=== PATIENT | male | born 1945 | race Caucasian/White ===

== ENCOUNTER → 2017-07-05 15:44 | Outpatient (CLI) | payer MEDICARE, OTHER, SELFPAY ==
[2017-07-05 18:21] LABS: Anion Gap 8 (5-15); BUN 20 mg/dL (7-18); BUN/Creat Ratio 17.2 RATIO (10-20); Calcium,Total 8.9 mg/dL (8.5-10.1); Chloride 106 mmol/L (98-107); Creatinine, Serum 1.16 mg/dL (0.70-1.30); EST Glomerular Filtration Rate 66 mL/min (>60); Est Glom Filt Rate - Afr Amer 80 mL/min (>60); Glucose 93 mg/dL (70-110); Potassium 4.3 mmol/L (3.5-5.1); Sodium Level 138 mmol/L (136-145)
== END ==
PROVIDERS: Family Provider Family Medicine; PCP Family Medicine; Visit Provider Family Medicine
DX: I10 Essential (primary) hypertension (principal)
CPT/HCPCS: 36415; 80048

== ENCOUNTER → 2017-08-02 08:17 | Outpatient (CLI) | payer MEDICARE, OTHER, SELFPAY ==
[2017-08-02 10:42] LABS: PSA,Total- Diagnostic < 0.01 ng/mL (0.0-4.0)
== END ==
PROVIDERS: Family Provider Family Medicine; PCP Family Medicine; Visit Provider Urology
DX: C61 Malignant neoplasm of prostate (principal)
CPT/HCPCS: 36415; 84153

== ENCOUNTER → 2018-02-13 14:40 | Outpatient (CLI) | payer MEDICARE, OTHER, SELFPAY ==
[2018-02-13 16:45] LABS: PSA,Total- Diagnostic < 0.01 ng/mL (0.0-4.0)
== END ==
PROVIDERS: Family Provider Family Medicine; PCP Family Medicine; Visit Provider Urology
DX: C61 Malignant neoplasm of prostate (principal)
CPT/HCPCS: 36415; 84153

== ENCOUNTER → 2018-08-15 07:48 | Outpatient (CLI) | payer MEDICARE, OTHER, SELFPAY ==
[2018-08-15 10:16] LABS: PSA,Total- Diagnostic < 0.01 ng/mL (0.0-4.0)
== END ==
PROVIDERS: Family Provider Family Medicine; PCP Family Medicine; Referring Provider Urology; Visit Provider Urology
DX: C61 Malignant neoplasm of prostate (principal)
CPT/HCPCS: 36415; 84153

== ENCOUNTER → 2018-11-10 07:30 | Outpatient (CLI) | payer MEDICARE, OTHER, SELFPAY ==
--- NOTE | 2018-11-10 07:35 | CT_ITS ---
STUDY: CT ABDOMEN AND PELVIS WITH AND WITHOUT CONTRAST REASON FOR EXAM: Male, 73 years old. Gross hematuria one week ago RADIATION DOSAGE (If Supplied By Facility): CTDIvol = ( 22.36 ) mGy, DLP = ( 2616.06 ) mGycm TECHNIQUE: Transaxial images were obtained from the dome of the diaphragm to the symphysis pubis without oral contrast. 100ml IV Isovue 300 was administered. Sagittal and coronal images were reconstructed. Individualized dose optimization techniques were used for this CT. COMPARISON: None. FINDINGS: The visualized lung bases are unremarkable. The visualized portions of the heart are within normal limits. There is a well-circumscribed 5.9 mm low-attenuation within the left hepatic lobe suggesting a cyst or potentially lipoma. Normal gallbladder and extrahepatic biliary system. Normal spleen. Normal pancreas. Normal bilateral adrenal glands. Normal right kidney. Normal left kidney. There is a hiatal hernia measuring 2.5 x 3.1 cm. Normal small intestine. There is moderate stool in the colon. There is diverticulosis without visualized diverticulitis. The appendix is visualized and appears normal. The aorta is tortuous and partially calcified. Normal inferior vena cava. Normal retroperitoneum. The bladder is decompressed the wall is thickened and mildly strandy in its appearance measuring up to 7.4 mm. The delayed images demonstrate the same on axial view. The bladder appears somewhat low lying. The prostate is not visualized. There is a right-sided fatty inguinal hernia. There is degenerative change of the lumbar spine. There is multilevel broad disc bulge with. There is slight retrolisthesis at L1-L2. There is mild to moderate neural foramina narrowing is significant central stenosis. At L2 L3 L3 L4 L4 L5 there is broad disc bulge facet arthropathy with minimal neural foramina narrowing. At L5-S1 there is bilateral spondylosis with no significant neural foraminal narrowing or central stenosis. There is degenerative change of the SI joints. CT/CT Abd/Pelvis W/WO Contrast IMPRESSION: There is a thick walled appearance of the bladder compatible with cystitis. In addition there is a low-lying appearance of the bladder and absence of the main spin surgically removed. There is no visualized mass within the bladder allowing for the limitations of this study. Right-sided fatty inguinal hernia [id number] constipation diverticulosis no evidence of diverticulitis. No evidence for hydronephrosis. Degenerative change thoracolumbar spine and pars interarticularis defect L5-S1. Electronically Signed: Francisca Scherer MD at 17:21 EDT Tel , Service support ,
[2018-11-10 07:50] LABS: CREATININE FINGERSTICK 1.2 mg/dL (0.70-1.30); EGFR FINGERSTICK > 60.0000 mL/min (>60)
== END ==
PROVIDERS: Family Provider Family Medicine; PCP Family Medicine; Referring Provider Nurse Practitioner Adult Health; Visit Provider Nurse Practitioner Adult Health
DX: Z01.812 Encounter for preprocedural laboratory examination (principal); R31.0 Gross hematuria
CPT/HCPCS: 74178; Q9967

== ENCOUNTER → 2018-12-04 09:17 | Outpatient (CLI) | payer MEDICARE, OTHER, SELFPAY ==
[2018-12-04 10:33] LABS: Anion Gap 4 (5-15); BUN 23 mg/dL (7-18); BUN/Creat Ratio 18.4 RATIO (10-20); Chloride 108 mmol/L (98-107); Cholesterol 159 mg/dL (200); Creatinine, Serum 1.25 mg/dL (0.70-1.30); EST Glomerular Filtration Rate 61 mL/min (>60); Est Glom Filt Rate - Afr Amer 73 mL/min (>60); Glucose 99 mg/dL (74-106); High Density Lipoprotein 43 mg/dL; Potassium 4.4 mmol/L (3.5-5.1); Sodium Level 136 mmol/L (136-145); Triglycerides 108 mg/dL; Very Low Density Lipoprotein 22 mg/dL (5-40)
== END ==
PROVIDERS: Family Provider Family Medicine; PCP Family Medicine; Referring Provider Family Medicine; Visit Provider Family Medicine
DX: I10 Essential (primary) hypertension (principal)
CPT/HCPCS: 36415; 80048; 80061

== ENCOUNTER 2018-12-15 11:17 | Day surgery (SDC) | payer MEDICARE, OTHER, SELFPAY ==
--- NOTE | 2018-12-12 07:57 | EKG12_ITS ---
Test Reason : PREOP Blood Pressure : / mmHG Vent. Rate : 073 BPM Atrial Rate : 073 BPM P-R Int : 192 ms QRS Dur : 088 ms QT Int : 366 ms P-R-T Axes : 059 056 044 degrees QTc Int : 403 ms Normal sinus rhythm Normal ECG Confirmed by KRISTIAN HOOK, SAM ([id number]), slot editor MAN STEPHENS ([id number]) on 12/14/2018 11:57:01 AM Referred By: Zhao Gilliland Confirmed By:SAM TOWNSEND MD
[2018-12-15] VITALS (7 sets, daily range): BP systolic 111–130; BP diastolic 69–85; PULSE 67–85; RESP 14–16; TEMP 36.1–36.7; O2SAT 95–98; BMI 28.9
--- NOTE | 2018-12-15 13:35 | BLA_PTH ---
PATIENT: BARBARA PEÑA LOC: [facility] [place] U#:[id number] AGE/SX: 73/M ROOM: RE12/15/[address]: Dr. Zhao Gilliland MD : 1945 BED: DIS: 12/15/2018 SPEC #: [id number] RECD: 12/15/18 16:07 STATUS: PURVI MAXIMILIANO #: [id number] TARA: 12/15/18 13:[address]: Zhao Gilliland DEPT: SURGICAL PATHOLOGY RECD BY: Mirian Santos ENTERED: 12/18/18 08:50 SP TYPE: BLADDER BX OTHR DR: Dr. sIaiah Han MD Tissues: A - Urinary bladder, NOS B - Urinary bladder, NOS C - Urinary bladder, NOS D - Urinary bladder, NOS Procedures: Surgery Specimen Level IV HEADER OPERATION: Cystoscopy, bladder biopsy, fulguration PRE-OP DIAGNOSIS: Gross hematuria, malignant neoplasm of prostate TISSUE SUBMITTED: A. Cysto bladder biopsy, posterior wall, B. Cysto bladder biopsy, posterior wall, C. Cysto bladder biopsy, posterior wall, D. Cysto bladder biopsy, posterior wall MICROSCOPIC DIAGNOSIS A. Urinary bladder, posterior wall, biopsy: Mild chronic inflammation and reactive histiocytic reaction. No evidence of malignancy. See comment. B. Urinary bladder, posterior wall, biopsy: Mild chronic inflammation and reactive histiocytic reaction. No evidence of malignancy. See comment. C. Urinary bladder, posterior wall, biopsy: No tissue in specimen container. D. Urinary bladder, posterior wall, biopsy: Mild chronic inflammation and reactive histiocytic reaction. No evidence of malignancy. See comment. AM:sapphire 12/19/18 COMMENT A. Detrusor muscle is not represented in the biopsy. B. Detrusor muscle is not represented in the biopsy. D. Detrusor muscle is not represented in the biopsy. Case has been reviewed in consultation with Dr. Shipley who concurs with the above diagnosis. IDC:SJ MICROSCOPIC DESCRIPTION Slides are reviewed. GROSS DESCRIPTION A - Received in fixative is one container labeled with the patient's name and designated cysto bladder biopsy posterior wall. The specimen consists of one irregular fragment of light sam soft tissue that measures 0.1 cm in greatest dimension. The specimen is totally submitted in one cassette. B - Received in fixative is one container labeled with the patient's name and designated cysto bladder biopsy posterior wall. The specimen consists of one irregular fragment of light sam soft tissue that measures 0.1 cm in greatest dimension. The specimen is totally submitted in one cassette. C - Received in fixative is one container labeled with the patient's name and designated cysto bladder biopsy posterior wall. No specimen is recovered. D - Received in fixative is one container labeled with the patient's name and designated cysto bladder biopsy posterior wall. The specimen consists of one irregular fragment of light sam soft tissue that measures 0.2 x 0.1 x 0.1 cm. The specimen is totally submitted in one cassette. / SJ:rg 12/18/18 TC:3 CPT: 78556 x3
[2018-12-15] MEDS: Cefazolin 2 GM in 0.9% Normal Saline 100 ML IV (13:38)
--- NOTE | 2018-12-15 13:44 | DCINST_ITS ---
Discharge Diet: Light diet - advance as tolerated Discharge Activity: Return to Normal Activity Call your doctor if your incision/area has: Sudden Increased Bleeding Call your doctor if you observe: Fever of 101 or Higher Allergies/Adverse Reactions: Allergies Sulfa (Sulfonamide Antibiotics) Allergy (Verified 12/15/18 11:57) Hives Medications to take at Discharge Amlodipine [Norvasc] 10 mg PO DAILY 12/08/18 Lisinopril [Zestril] 40 mg PO BID 12/08/18 Terazosin HCl [Hytrin] 5 mg PO DAILY 12/08/18 Orders to be completed after discharge: 12 Lead EKG [CVS] Facility: [facility], Location: Cardiovascular Services Primary Care Physician: Eduardo Han MD [Primary Care Provider] - Test Results: Test results from this visit will be discussed in further detail at your follow- up appointment, if applicable. Please Follow Up With: Zhao Gilliland MD When: in 2 weeks, please call to make an appointment.
--- NOTE | 2018-12-15 14:06 | PCM.OPRPT ---
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 73-year-old male taken back to the operating room at the smooth induction of general anesthesia he was placed in dorsolithotomy position, the penis and testicles are prepped and draped in usual sterile fashion, he had SCDs on, he had antibiotics on board, timeout was performed, he was then placed in dorsolithotomy position, went into the bladder with a 21 Portuguese rigid cystourethroscope, once inside the bladder identified the lesions in the posterior wall in the left lateral wall the bladder bladder photograph of these were taken and printed we then biopsied the lesion and fulgurated these lesions to me 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 Taken back to PACU good condition follow-up in a few weeks to review the biopsies. Type of Anesthesia:: General Drains: none Estimated Blood Loss (mL): none - Admit VTE Documentation VTE Present on Admission: No VTE Mechan Device Prophylaxis: SCD's
== END 2018-12-15 16:00 | disposition home or self-care (01) ==
LOC: SDC 11:17 → AC 11:18
PROVIDERS: Family Provider Family Medicine; PCP Family Medicine; Referring Provider Urology; Visit Provider Urology
PROC: 0TBB8ZX Excision of Bladder, Via Natural or Artificial Opening Endoscopic, Diagnostic (ICD-10-PCS; CPT 52234; principal; 2018-12-15 13:25)
DX: N30.21 Other chronic cystitis with hematuria (principal); C61 Malignant neoplasm of prostate; I10 Essential (primary) hypertension; Z79.82 Long term (current) use of aspirin; Z79.899 Other long term (current) drug therapy
CPT/HCPCS: 52234; 88305; 93005; J7120; J2405

== ENCOUNTER → 2019-06-29 11:50 | Outpatient (CLI) | payer MEDICARE, OTHER, SELFPAY ==
[2018-12-15 11:59] VITALS: BMI 28.9
[2019-06-29 14:21] LABS: PSA,Total- Diagnostic < 0.01 ng/mL (0.0-4.0)
== END ==
PROVIDERS: PCP Family Medicine; Referring Provider Urology; Visit Provider Urology
DX: C61 Malignant neoplasm of prostate (principal)
CPT/HCPCS: 36415; 84153

== ENCOUNTER → 2019-12-28 10:17 | Outpatient (CLI) | payer MEDICARE, OTHER, SELFPAY ==
[2018-12-15 11:59] VITALS: BMI 28.9
[2019-12-28 12:56] LABS: Anion Gap 4 (5-15); BUN 22 mg/dL (7-18); BUN/Creat Ratio 17.2 RATIO (10-20); Chloride 111 mmol/L (98-107); Cholesterol 164 mg/dL (200); Creatinine, Serum 1.28 mg/dL (0.70-1.30); EST Glomerular Filtration Rate 59 mL/min (>60); Est Glom Filt Rate - Afr Amer 71 mL/min (>60); Glucose 115 mg/dL (74-106); High Density Lipoprotein 45 mg/dL; PSA,Total- Diagnostic < 0.01 ng/mL (0.0-4.0); Potassium 4.4 mmol/L (3.5-5.1); Sodium Level 139 mmol/L (136-145); Triglycerides 75 mg/dL; Very Low Density Lipoprotein 15 mg/dL (5-40)
== END ==
PROVIDERS: PCP Family Medicine; Referring Provider Family Medicine; Visit Provider Family Medicine
DX: I10 Essential (primary) hypertension (principal); C61 Malignant neoplasm of prostate
CPT/HCPCS: 36415; 80048; 80061; 84153

== ENCOUNTER → 2020-06-23 08:13 | Outpatient (CLI) | payer MEDICARE, OTHER, SELFPAY ==
[2018-12-15 11:59] VITALS: BMI 28.9
[2020-06-23 10:05] LABS: Anion Gap 9 (5-15); BUN 22 mg/dL (7-18); BUN/Creat Ratio 15.8 RATIO (10-20); Chloride 106 mmol/L (98-107); Creatinine, Serum 1.39 mg/dL (0.70-1.30); EST Glomerular Filtration Rate 53 mL/min (>60); Est Glom Filt Rate - Afr Amer 65 mL/min (>60); Glucose 110 mg/dL (74-106); PSA,Total- Diagnostic < 0.01 ng/mL (0.0-4.0); Potassium 4.2 mmol/L (3.5-5.1); Sodium Level 139 mmol/L (136-145)
== END ==
PROVIDERS: PCP Family Medicine; Visit Provider Family Medicine
DX: C61 Malignant neoplasm of prostate (principal); I10 Essential (primary) hypertension
CPT/HCPCS: 36415; 80048; 84153

== ENCOUNTER 2020-07-30 14:12 | Outpatient (RCR) | payer MEDICARE, OTHER, SELFPAY ==
[2018-12-15 11:59] VITALS: BMI 28.9
== END 2020-07-30 23:59 ==
LOC: IMMUN 14:12
PROVIDERS: PCP Family Medicine; Referring Provider Family Medicine; Visit Provider Family Medicine
DX: Z23 Encounter for immunization (principal)
CPT/HCPCS: 0011A; 0012A

== ENCOUNTER → 2020-12-22 09:05 | Outpatient (CLI) | payer MEDICARE, OTHER, SELFPAY ==
[2018-12-15 11:59] VITALS: BMI 28.9
[2020-12-22 10:41] LABS: Anion Gap 6 (5-15); BUN 19 mg/dL (7-18); BUN/Creat Ratio 14.1 RATIO (10-20); Chloride 107 mmol/L (98-107); Cholesterol 178 mg/dL (200); Creatinine, Serum 1.35 mg/dL (0.70-1.30); EST Glomerular Filtration Rate 55 mL/min (>60); Est Glom Filt Rate - Afr Amer 67 mL/min (>60); Glucose 109 mg/dL (74-106); High Density Lipoprotein 45 mg/dL; PSA,Total- Diagnostic < 0.01 ng/mL (0.0-4.0); Potassium 4.5 mmol/L (3.5-5.1); Sodium Level 138 mmol/L (136-145); Triglycerides 113 mg/dL; Very Low Density Lipoprotein 23 mg/dL (5-40)
== END ==
PROVIDERS: PCP Family Medicine; Visit Provider Family Medicine
DX: C61 Malignant neoplasm of prostate (principal); I10 Essential (primary) hypertension
CPT/HCPCS: 80048; 80061; 84153

== ENCOUNTER 2021-06-24 14:57 | Outpatient (CLI) | payer MEDICARE, OTHER, SELFPAY ==
[2021-06-24 18:23] LABS: PSA,Total- Diagnostic < 0.01 ng/mL (0.0-4.0)
== END 2021-06-24 23:59 | disposition short-term general hospital (02) ==
LOC: MTLAB 15:00
PROVIDERS: PCP Family Medicine; Referring Provider Urology; Visit Provider Urology
DX: C61 Malignant neoplasm of prostate (principal)
CPT/HCPCS: 36415; 84153

== ENCOUNTER 2021-07-15 09:00 | Outpatient (CLI) | payer MEDICARE, OTHER, SELFPAY ==
[2021-07-15 11:01] LABS: Anion Gap 6 (5-15); BUN 18 mg/dL (7-18); BUN/Creat Ratio 15.3 RATIO (10-20); Chloride 109 mmol/L (98-107); Cholesterol 154 mg/dL (200); Creatinine, Serum 1.18 mg/dL (0.70-1.30); EST Glomerular Filtration Rate 64 mL/min (>60); Est Glom Filt Rate - Afr Amer 78 mL/min (>60); Glucose 98 mg/dL (74-106); High Density Lipoprotein 48 mg/dL; Potassium 4.5 mmol/L (3.5-5.1); Sodium Level 140 mmol/L (136-145); Triglycerides 81 mg/dL; Very Low Density Lipoprotein 16 mg/dL (5-40)
== END 2021-07-15 23:59 | disposition home or self-care (01) ==
LOC: MFPLAB 09:03
PROVIDERS: PCP Family Medicine; Referring Provider Family Medicine; Visit Provider Family Medicine
DX: I10 Essential (primary) hypertension (principal)
CPT/HCPCS: 36415; 80048; 80061

== ENCOUNTER → 2021-12-28 | Outpatient (CLI) | payer MEDICARE, OTHER, SELFPAY ==
[2021-12-28 18:30] LABS: PSA,Total- Diagnostic 0.03 ng/mL (0.0-4.0)
== END | disposition home or self-care (01) ==
PROVIDERS: PCP Family Medicine; Referring Provider Registered Nurse; Visit Provider Registered Nurse
DX: C61 Malignant neoplasm of prostate (principal)
CPT/HCPCS: 36415; 84153

== ENCOUNTER → 2022-07-05 | Outpatient (CLI) | payer MEDICARE, OTHER, SELFPAY ==
[2022-07-05 09:47] LABS: ALB/GLOB Ratio 0.9 RATIO (0.9-2.4); AST(SGOT) 17 U/L (15-37); Alanine Aminotransfer ALT/SGPT 19 U/L (16-61); Albumin, Serum 3.7 g/dL (3.2-5.0); Alkaline Phosphatase 77 U/L (45-117); Anion Gap 8 (5-15); BUN 18 mg/dL (7-18); BUN/Creat Ratio 13.6 RATIO (10-20); Calcium,Total 8.9 mg/dL (8.5-10.1); Chloride 108 mmol/L (98-107); Cholesterol 181 mg/dL (200); Creatinine, Serum 1.32 mg/dL (0.70-1.30); EST Glomerular Filtration Rate 56 mL/min (>60); Est Glom Filt Rate - Afr Amer 68 mL/min (>60); Globulin 3.9 g/dL (2.2-4.2); Glucose 121 mg/dL (74-106); High Density Lipoprotein 51 mg/dL; PSA,Total- Diagnostic < 0.01 ng/mL (0.0-4.0); Potassium 4.2 mmol/L (3.5-5.1); Protein, Total 7.6 g/dL (6.4-8.2); Sodium Level 139 mmol/L (136-145); Triglycerides 101 mg/dL; Uric Acid 8.3 mg/dL (3.5-7.2); Very Low Density Lipoprotein 20 mg/dL (5-40)
== END | disposition home or self-care (01) ==
LOC: LAB 08:23
PROVIDERS: PCP Family Medicine; Referring Provider Urology; Visit Provider Urology
DX: C61 Malignant neoplasm of prostate (principal); I10 Essential (primary) hypertension; E79.0 Hyperuricemia without signs of inflammatory arthritis and tophaceous disease
CPT/HCPCS: 36415; 80053; 80061; 84153; 84550

== ENCOUNTER → 2022-12-03 | Outpatient (CLI) | payer MEDICARE, OTHER, SELFPAY ==
[2022-12-03 17:46] LABS: PSA,Total- Diagnostic < 0.01 ng/mL (0.0-4.0)
== END | disposition home or self-care (01) ==
LOC: MTLAB 14:50
PROVIDERS: PCP Family Medicine; Referring Provider Urology; Visit Provider Urology
DX: C61 Malignant neoplasm of prostate (principal)
CPT/HCPCS: 36415; 84153

== ENCOUNTER → 2023-01-03 | Outpatient (CLI) | payer MEDICARE, OTHER, SELFPAY ==
[2023-01-03 10:29] LABS: Anion Gap 6 (5-15); BUN 21 mg/dL (7-18); BUN/Creat Ratio 16.7 RATIO (10-20); Calcium,Total 8.9 mg/dL (8.5-10.1); Chloride 109 mmol/L (98-107); Cholesterol 177 mg/dL (200); Creatinine, Serum 1.26 mg/dL (0.70-1.30); EST Glomerular Filtration Rate 59 mL/min (>60); Est Glom Filt Rate - Afr Amer 72 mL/min (>60); Glucose 112 mg/dL (74-106); High Density Lipoprotein 49 mg/dL; Potassium 4.1 mmol/L (3.5-5.1); Sodium Level 138 mmol/L (136-145); Triglycerides 100 mg/dL; Very Low Density Lipoprotein 20 mg/dL (5-40)
== END | disposition home or self-care (01) ==
PROVIDERS: PCP Family Medicine; Referring Provider Family Medicine; Visit Provider Family Medicine
DX: Z00.00 Encounter for general adult medical examination without abnormal findings (principal); I10 Essential (primary) hypertension
CPT/HCPCS: 36415; 80048; 80061

== ENCOUNTER 2023-02-02 11:42 | Emergency (ER) | payer MEDICARE, OTHER, SELFPAY ==
[2023-02-02 11:43] VITALS: BP 150/100; PULSE 111; RESP 16; TEMP 36.4; O2SAT 96; BMI 27.8
--- NOTE | 2023-02-02 12:10 | EDS_ITS ---
HPI History of Present Illness Chief Complaint: Complaint Detail of Chief Complaint: Urinary retention Informant: patient Narrative Narrative: Patient presents secondary to urinary retention. He has a history of prostate cancer. He had surgery but then had a recurrence of cancer. He had radiation but left a few burned areas to his bladder. He states Dr. Gilliland did go in and cauterize several lesions. About once a month or so he will have a small amount of blood in his urine and not think much of it. This morning he passed a small amount of blood, but then has been unable to urinate since that time. He is concerned he has a blood clot blocking the urethra. [facility] Medical History (Updated 02/02/23 @ 14:[address] Columba Decker MD) Blood in urine Prostate cancer Home Medications amlodipine 10 mg tablet 10 mg PO DAILY 12/08/18 [History Last Taken 12/15/18 07:00] lisinopril 40 mg tablet 40 mg PO BID 12/08/18 [History Last Taken 12/15/18 07:00] terazosin 5 mg capsule 5 mg PO DAILY 12/08/18 [History Last Taken Unknown] ciprofloxacin HCl 500 mg tablet 500 mg PO BID #6 tabs 12/15/18 [Rx Last Taken Unknown] ibuprofen 600 mg tablet 600 mg PO Q6H PRN PRN Pain #14 tabs 12/15/18 [Rx Last Taken Unknown] phenazopyridine 100 mg tablet 100 mg PO TID PRN PRN burning #14 tabs 12/15/18 [Rx Last Taken Unknown] ciprofloxacin HCl 500 mg tablet (Cipro) 500 mg PO BID #10 tabs 02/02/23 [Rx Last Taken Unknown] Allergy/AdvReac Type Severity Reaction Status Date / Time Sulfa (Sulfonamide Allergy Hives Verified 02/02/23 11:44 Antibiotics) Social History Smoking Status: Never smoker ROS ROS ED Constitutional Constitutional ED: Denies chills or fever(s) Eyes Eyes: Denies change in vision ENT ENT ED: Denies rhinorrhea or sore throat Cardiovascular Cardiovascular: Denies chest pain or palpitations Respiratory/Chest Respiratory/Chest: Denies cough or dyspnea Gastrointestinal Gastrointestinal: Reports abdominal pain; Denies nausea or vomiting Genitourinary Genitourinary ED: Reports difficulty urinating and hematuria Musculoskeletal Musculoskeletal: Denies back pain or extremity pain Integumentary Denies Abrasions or rash Neurologic Neurologic: Denies headache(s) or weakness Psychiatric Psychiatric: Denies anxiety or depression Allergic/Immunologic Allergic/Immunologic ED: Denies lip swelling or urticaria EXAM Physical Exam Const Vital Signs: 02/02/23 11:43 02/02/23 13:01 Temperature 97.5 F L Temperature Source Temporal Pulse Rate 111 H 75 Respiratory Rate 16 18 Blood Pressure 150/100 H 120/76 Blood Pressure Mean 116 90 Pulse Ox 96 95 Oxygen Delivery Method Room Air Room Air Positive well nourished and well developed General Appearance ED: well developed HEENT Reports normocephalic and head/scalp atraumatic Eyes PERRL and EOMs intact bilaterally Neck supple Chest Wall inspection of chest normal and palpation of chest normal Resp normal respiratory effort and clear to auscultation bilaterally Cardio regular rate and regular rhythm GI GI Narrative: Abdomen soft with suprapubic tenderness. Palpation: soft Extremity normal to inspection Neuro oriented x3 and no sensory deficits noted Sensorium / Orientation: alert Motor Exam: strength 5/5 throughout Psych mental status grossly normal Skin no rashes or lesions noted MDM MDM MDM Narrative Medical decision making narrative: Worthy catheter placed. Labwork obtained to evaluate for leukocytosis, anemia, and electrolyte derangement. Urinalysis obtained to evaluate for infection/hematuria. Lab Data Attestation: I reviewed the patient's lab results. Labs: Laboratory Results - last 24 hr 02/02/23 12:20 WBC 6.6 RBC 4.25 L Hgb 13.1 Hct 38.7 L MCV 91.1 MCH 30.8 MCHC 33.9 RDW Std Deviation 41.3 RDW Coeff of Jerry 12.4 Plt Count 228 MPV 10.4 Immature Gran % (Auto) 0.300 Neut % (Auto) 81.7 H Lymph % (Auto) 8.7 L Bandera % (Auto) 7.8 Eos % (Auto) 0.9 Baso % (Auto) 0.6 Absolute Neuts (auto) 5.4 Absolute Lymphs (auto) 0.58 L Nucleated RBC % 0 Differential Comment SCANNED PT 14.5 INR 1.1 APTT 31.4 Sodium 136 Potassium 4.0 Chloride 108 H Carbon Dioxide 20.0 L Anion Gap 8 BUN 20 H Creatinine 1.42 H Estim Creat Clear Calc 46.41 Est GFR (MDRD) Af Amer 63 Est GFR (MDRD) Non-Af 52 L BUN/Creatinine Ratio 14.1 Glucose 120 H Calcium 8.7 Urine Color Yellow Urine Clarity Clear Urine pH 6.5 Ur Specific Kaiser 1.005 Urine Protein 100 H Urine Glucose (UA) Normal Urine Ketones 5 H Urine Occult Blood 250 H Urine Nitrite Positive H Urine Bilirubin Negative Urine Urobilinogen Normal Ur Leukocyte Esterase 100 H Urine RBC 50-100 SEEN Urine WBC 0-5 SEEN Ur Squamous Epith Cells 0 SEEN Urine Bacteria RARE Urine Mucus 0 SEEN Treatment and Re-Evaluation :: Placed by nursing staff. She states she had a hard time getting the three-way catheter in but was able to pass a coud?. Urine is blood-tinged but no clots are noted at this time and is draining well. CBC reveals normal white count at 6.6 with a hemoglobin of 13.1. Coags unremarkable. Chemistry studies reveal a bicarb of 20. BUN is 20 and creatinine is 1.42 which appears similar to his prior values. Urinalysis does reveal infection with positive nitrites. 50-100 RBCs are noted along with 0-5 white cells and rare bacteria. On repeat evaluation patient is still resting comfortably. Urine is draining without difficulty and is light red in color. No clots are noted. Test results are discussed with patient and . Urine has been sent for culture and he will be treated with a course of Cipro. He will be given a leg bag and will continue the Worthy catheter until infection is cleared and he can follow-up to have it safely removed. Return instructions are given. Discharge Plan Triage Chief Complaint: Complaint ED Provider: Columba Decker Dx/Rx/DC Orders Clinical Impression: Urinary retention Instructions: ED Worthy Catheter, Care, ED Urinary Retention, Male, ED Urinary Tract Infections in Men Prescriptions: New ciprofloxacin HCl [Cipro] 500 mg tablet 500 mg PO BID Qty: 10 0RF No Action terazosin 5 MG capsule 5 mg PO DAILY amlodipine 10 MG tablet 10 mg PO DAILY lisinopril 40 MG tablet 40 mg PO BID ciprofloxacin HCl 500 MG tablet 500 mg PO BID Qty: 6 0RF phenazopyridine 100 MG tablet 100 mg PO TID PRN PRN (Reason: burning) Qty: 14 0RF ibuprofen 600 MG tablet 600 mg PO Q6H PRN PRN (Reason: Pain) Qty: 14 0RF Primary Care Provider: Eduardo Han Referrals: Eduardo Han MD [Primary Care Provider] - Zhao Gilliland MD [Med Staff - Active Staff] - 5-7 Days Disposition Disposition: Home, Self Care
[2023-02-02 12:24] LABS: Mucous, Urine 0 SEEN /hpf (<or=2+); Squamous Epithelial Cells - UA 0 SEEN /hpf (0-5)
[2023-02-02 12:33] LABS: Absolute Lymphocyte Count 0.58 X10^3/uL (0.83-4.51); Absolute Neutrophil Count 5.4 X10^3/uL (2.0-7.7); Basophil# 0.04 X10^3/uL; Basophil% 0.6 % (0-1); Eosinophil# 0.06 X10^3/uL; Eosinophils% 0.9 % (0-5); Hematocrit 38.7 % (40-54); Hemoglobin 13.1 g/dL (13.0-16.5); Lymphocyte # 0.58 X10^3/ul (0.83-4.51); Lymphocyte % 8.7 % (19-41); Mean Corp Hgb Conc 33.9 g/dL (32-36); Mean Corpuscular Hgb 30.8 pg (27.0-32.0); Mean Corpuscular Volume 91.1 fL (80-94); Mean Platelet Vol. 10.4 fl (6.2-12.0); Monocyte# 0.52 X10^3/uL; Monocyte% 7.8 % (0-10); NRBC Flagged by Analyzer 0 % (0-5); Neutrophil # 5.42 X10^3/uL (2.7-7.7); Neutrophil % 81.7 % (47-70); POSITIVE DIFFERENTIAL YES; Platelet Count 228 K/mm3 (150-450); RBC Distribution Width CV 12.4 % (11.6-14.6); RBC Distribution Width SD 41.3 fl (35.1-43.9); Red Blood Count 4.25 M/mm3 (4.6-6.2); White Blood Count 6.6 K/mm3 (4.4-11.0)
[2023-02-02 12:37] LABS: International Normalized Ratio 1.1; Prothrombin Time (Protime)PT. 14.5 SECONDS (11.7-14.9)
[2023-02-02 12:38] LABS: Partial Thromboplast Time 31.4 Seconds (24.1-36.2)
[2023-02-02 12:41] LABS: Anion Gap 8 (5-15); BUN 20 mg/dL (7-18); BUN/Creat Ratio 14.1 RATIO (10-20); Calcium,Total 8.7 mg/dL (8.5-10.1); Chloride 108 mmol/L (98-107); Creatinine, Serum 1.42 mg/dL (0.70-1.30); EST Glomerular Filtration Rate 52 mL/min (>60); Est Glom Filt Rate - Afr Amer 63 mL/min (>60); Estimated Creatinine Clearance 46.41 ml/min; Glucose 120 mg/dL (74-106); Sodium Level 136 mmol/L (136-145)
[2023-02-02 12:50] LABS: Color, Urine Yellow (Yellow); Glucose, Dipstick Normal (Normal); Ketone-Dipstick 5 mg/dl (Negative); Leukocyte Esterase-Dipstick 100 /ul (Negative); Nitrite-Dipstick Positive (Negative); Occult Blood-Urine 250 /ul (Negative); Protein-Dipstick 100 mg/dl (Negative); Specific Gravity, Urine 1.005 (1.002-1.030); Urine Bilirubin Dipstick Negative (Negative); Urine Clarity Clear (Clear); Urine Urobilinogen Normal (Normal); Urine pH 6.5 (5.0 - 8.0)
[2023-02-02 12:55] LABS: Differential Indicated SCAN CRITERIA MET
[2023-02-02 13:01] VITALS: BP 120/76; PULSE 75; RESP 18; O2SAT 95
[2023-02-02 13:01] LABS: Bacteria RARE /hpf (None Seen); Red Blood Cells-Urine 50-100 SEEN /hpf (0-5); White Blood Cells 0-5 SEEN /hpf (0-5)
[2023-02-02 13:25] LABS: Differential Comment SCANNED
[2023-02-02] MEDS: Ciprofloxacin 500 MG Tablet PO (14:21)
== END 2023-02-02 14:36 | disposition home or self-care (01) ==
PROVIDERS: Emergency Provider Emergency Medicine; PCP Family Medicine; Visit Provider Emergency Medicine
DX: R33.9 Retention of urine, unspecified (principal); Z85.46 Personal history of malignant neoplasm of prostate
CPT/HCPCS: 51702; 80048; 81001; 85025; 85610; 85730; 87077; 87086; 87088; 87186; 99285; A4216

== ENCOUNTER 2023-02-07 11:04 | Emergency (ER) | payer MEDICARE, OTHER, SELFPAY ==
[2023-02-07 11:05] VITALS: BP 156/93; PULSE 126; RESP 14; TEMP 36.3; O2SAT 98; BMI 27.9
--- NOTE | 2023-02-07 11:40 | ED.RN ---
RN MANUALLY IRRIGATING ELDER CATHETER. FEW CLOTS HAVE PASSED, UNABLE TO PASS CLOT THAT KEEPS OCCLUDING 16FR ELDER CATHETER THAT PATIENT ARRIVED WITH. THIS RN ATTEMPTED TO PLACE [address] IN [place]TIC[place] FOR CBI, UNABLE TO PLACE. 18FR COUDE PLACED AT THIS TIME WITH MULTIPLE CLOTS BEING PASSED. RN CONTINUES TO MANUALLY IRRIGATE ELDER. URINE BECOMING MORE CLEAR AND DRAINING. DR PRYOR NOTIFIED.
[2023-02-07 11:41] LABS: Absolute Lymphocyte Count 0.65 X10^3/uL (0.83-4.51); Absolute Neutrophil Count 7.3 X10^3/uL (2.0-7.7); Basophil# 0.04 X10^3/uL; Basophil% 0.4 % (0-1); Eosinophil# 0.21 X10^3/uL; Eosinophils% 2.3 % (0-5); Hematocrit 37.8 % (40-54); Hemoglobin 12.8 g/dL (13.0-16.5); Lymphocyte # 0.65 X10^3/ul (0.83-4.51); Lymphocyte % 7.2 % (19-41); Mean Corp Hgb Conc 33.9 g/dL (32-36); Mean Corpuscular Hgb 30.5 pg (27.0-32.0); Mean Corpuscular Volume 90.2 fL (80-94); Mean Platelet Vol. 10.6 fl (6.2-12.0); Monocyte# 0.81 X10^3/uL; Monocyte% 8.9 % (0-10); NRBC Flagged by Analyzer 0 % (0-5); Neutrophil # 7.32 X10^3/uL (2.7-7.7); Neutrophil % 80.6 % (47-70); Platelet Count 241 K/mm3 (150-450); RBC Distribution Width CV 12.3 % (11.6-14.6); RBC Distribution Width SD 40.5 fl (35.1-43.9); Red Blood Count 4.19 M/mm3 (4.6-6.2); White Blood Count 9.1 K/mm3 (4.4-11.0)
--- NOTE | 2023-02-07 11:45 | EX.ED.GUMALE ---
HPI History of Present Illness Chief Complaint: Worthy C/O Narrative Narrative: 77-year-old male presenting with hematuria and urinary retention. Patient states he was recently seen and started on antibiotics for UTI and urinary retention. He had the Worthy in for a few days. He reports that the blood clot started last night and clotted off sometime overnight. He has not been able to urinate. He is not on any blood thinners. Recently he did have biopsies performed by Dr. Gilliland. [facility] Medical History Blood in urine Prostate cancer Home Medications amlodipine 10 mg tablet 10 mg PO DAILY 12/08/18 [History Last Taken 12/15/18 07:00] lisinopril 40 mg tablet 40 mg PO BID 12/08/18 [History Last Taken 12/15/18 07:00] terazosin 5 mg capsule 5 mg PO DAILY 12/08/18 [History Last Taken Unknown] ciprofloxacin HCl 500 mg tablet 500 mg PO BID #6 tabs 12/15/18 [Rx Last Taken Unknown] ibuprofen 600 mg tablet 600 mg PO Q6H PRN PRN Pain #14 tabs 12/15/18 [Rx Last Taken Unknown] phenazopyridine 100 mg tablet 100 mg PO TID PRN PRN burning #14 tabs 12/15/18 [Rx Last Taken Unknown] ciprofloxacin HCl 500 mg tablet (Cipro) 500 mg PO BID #10 tabs 02/02/23 [Rx Last Taken Unknown] Allergy/AdvReac Type Severity Reaction Status Date / Time Sulfa (Sulfonamide Allergy Hives Verified 02/07/23 11:06 Antibiotics) Social History Smoking Status: Never smoker ROS ROS ED Constitutional Constitutional ED: Denies chills, fever(s) or sweats Eyes Eyes: Denies blurry vision or change in vision ENT ENT ED: Denies ear pain or sore throat Cardiovascular Cardiovascular: Denies chest pain, palpitations or racing heartbeat Respiratory/Chest Respiratory/Chest: Denies cough, dyspnea or sputum Gastrointestinal Gastrointestinal: Denies abdominal pain, constipation, diarrhea, nausea or vomiting Genitourinary Genitourinary ED: Reports hematuria; Denies dysuria or urinary frequency Musculoskeletal Musculoskeletal: Denies arthralgias, myalgias or neck pain Integumentary Denies abscess, Abrasions or rash Neurologic Neurologic: Denies headache(s), paresthesias or weakness Psychiatric Psychiatric: Denies anxiety, depression, suicidal ideation or suicidal thoughts Endocrine Endocrinology: Denies polydipsia or polyuria EXAM Physical Exam Const Vital Signs: 02/07/23 11:05 Temperature 97.3 F L Temperature Source Temporal Pulse Rate 126 H Respiratory Rate 14 Blood Pressure 156/93 H Blood Pressure Mean 114 Pulse Ox 98 Oxygen Delivery Method Room Air Positive well nourished General Appearance ED: NAD; Negative for pallor HEENT Reports moist mucous membranes normocephalic Eyes PERRL General Eye ED: Negative for pale conjunctiva Resp normal respiratory effort Cardio regular rhythm Rate: tachycardic GI GI Narrative: Suprapubic fullness no CVA tenderness Narrative: Worthy catheter in place. There is some blood in the Worthy catheter bag. Extremity normal to inspection Neuro oriented x3 and CN's II-XII intact bilaterally Sensorium / Orientation: alert Psych mental status grossly normal Skin General Skin Exam: Negative for jaundice or pallor MDM MDM MDM Narrative Medical decision making narrative: Patient presenting with clotting off of his Worthy catheter. He is not on any blood thinners. He does have some mild suprapubic pressure. Patient is on antibiotics for UTI currently. He had recent biopsies by urology which may be causing the bleeding. We initially tried to irrigate the Worthy catheter and did get some clots out but it clotted off again. At this point we will put in a three-way Worthy catheter to irrigate him. CBC and BMP will be obtained. CBC shows normal white count 9.1. Hemoglobin is stable at 12.8. Platelets are normal. Creatinine is just above baseline at 1.59. Patient was given a liter normal saline. He had difficulty irrigating his bladder by hand and there was some occlusions with clots. Three-way Worthy was attempted but would not fit. When nursing staff came back he was again draining so he was irrigated and he has been irrigating pink urine. It is not reoccluded. He has been irrigated several times and is still remains pink. At this point I feel the patient could be safely discharged home. I did speak with Dr. Gilliland who states that he is on his way out of town to [facility]. He states that he cannot keep him in the hospital because he is not going to be here. The patient has a follow-up appointment on Tuesday. He is to see the urology office. At this point the patient states that he wants to try to be transferred to [facility] and I will make this call however, I was told earlier today that they do not have any beds. After speaking with the transfer line and urology (Dr. Grewal) patient was accepted ER to ER to see urology. Impression: 1. Hematuria 2. Occluded Worthy catheter Lab Data Attestation: I reviewed the patient's lab results. Labs: Laboratory Results - last 24 hr 02/07/23 11:30 WBC 9.1 RBC 4.19 L Hgb 12.8 L Hct 37.8 L MCV 90.2 MCH 30.5 MCHC 33.9 RDW Std Deviation 40.5 RDW Coeff of Jerry 12.3 Plt Count 241 MPV 10.6 Immature Gran % (Auto) 0.600 Neut % (Auto) 80.6 H Lymph % (Auto) 7.2 L Sawyer % (Auto) 8.9 Eos % (Auto) 2.3 Baso % (Auto) 0.4 Absolute Neuts (auto) 7.3 Absolute Lymphs (auto) 0.65 L Nucleated RBC % 0 Sodium 137 Potassium 3.9 Chloride 110 H Carbon Dioxide 19.0 L Anion Gap 8 BUN 23 H Creatinine 1.59 H Estim Creat Clear Calc 41.45 Est GFR (MDRD) Af Amer 55 L Est GFR (MDRD) Non-Af 45 L BUN/Creatinine Ratio 14.5 Glucose 113 H Calcium 9.0 Discharge Plan Triage Chief Complaint: Worthy C/O ED Provider: Neo Alcaraz Dx/Rx/DC Orders Clinical Impression: Urinary retention Prescriptions: No Action terazosin 5 MG capsule 5 mg PO DAILY amlodipine 10 MG tablet 10 mg PO DAILY lisinopril 40 MG tablet 40 mg PO BID ciprofloxacin HCl 500 MG tablet 500 mg PO BID Qty: 6 0RF phenazopyridine 100 MG tablet 100 mg PO TID PRN PRN (Reason: burning) Qty: 14 0RF ibuprofen 600 MG tablet 600 mg PO Q6H PRN PRN (Reason: Pain) Qty: 14 0RF ciprofloxacin HCl [Cipro] 500 mg tablet 500 mg PO BID Qty: 10 0RF Primary Care Provider: Eduardo Han Referrals: Eduardo Han MD [Primary Care Provider] - Disposition Disposition: Home, Self Care
[2023-02-07 11:54] LABS: Anion Gap 8 (5-15); BUN 23 mg/dL (7-18); BUN/Creat Ratio 14.5 RATIO (10-20); Chloride 110 mmol/L (98-107); Creatinine, Serum 1.59 mg/dL (0.70-1.30); EST Glomerular Filtration Rate 45 mL/min (>60); Est Glom Filt Rate - Afr Amer 55 mL/min (>60); Estimated Creatinine Clearance 41.45 ml/min; Glucose 113 mg/dL (74-106); Potassium 3.9 mmol/L (3.5-5.1); Sodium Level 137 mmol/L (136-145)
--- NOTE | 2023-02-07 14:50 | ED.RN ---
RN BACK TO BEDSIDE TO CHECK ELDER- STILL PATENT, URINE HAS CHANGED TO DARKER RED, WITHOUT CLOTS. RN IRRIGATED MORE WITH A COUPLE CLOTS REMOVED. HOOKED BACK UP TO ELDER BAG AND STILL DRAINING WELL. 500ML REMOVED AT THIS TIME.
[2023-02-07] MEDS: 0.9% Normal Saline 1,000 ML 999 ML IV (15:25)
== END 2023-02-07 17:10 | disposition home or self-care (01) ==
PROVIDERS: Emergency Provider Student in an Organized Health Care Education/Training Program; PCP Family Medicine; Visit Provider Student in an Organized Health Care Education/Training Program
DX: T83.098A Other mechanical complication of other urinary catheter, initial encounter (principal); X58.XXXA Exposure to other specified factors, initial encounter
CPT/HCPCS: 80048; 85025; 96360; 99284

== ENCOUNTER 2023-02-14 09:47 | Inpatient (IN) | payer MEDICARE, OTHER, SELFPAY ==
[2023-02-14] VITALS (10 sets, daily range): BP systolic 112–174; BP diastolic 56–91; PULSE 70–88; RESP 16–18; TEMP 35.9–37.3; O2SAT 93–99; BMI 29.7; BMI 29.8
--- NOTE | 2023-02-14 10:37 | EDS_ITS ---
HPI History of Present Illness Chief Complaint: Complaint Informant: patient Onset/Context/Timing Onset: Today Context: Gradual Onset Timing: Continuous Quality: Pressure Location: Suprapubic Worsened by: Nothing Relieved by: Bladder irrigation Narrative Narrative: Patient presents with urinary retention and hematuria that became worse today. Patient states he has been having difficulties with his catheter over the past 2 weeks. Patient states he has had multiple catheter exchanges. Patient states today he noted some blood and clots in his Worthy bag. Patient denies any dysuria. Patient admits to some pressure over his bladder area. Patient denies any fevers or chills. Patient denies any nausea or vomiting. Patient denies any back pain. [facility] Medical History Blood in urine Prostate cancer Home Medications amlodipine 10 mg tablet 10 mg PO DAILY 12/08/18 [History Last Taken 12/15/18 07:00] lisinopril 40 mg tablet 40 mg PO BID 12/08/18 [History Last Taken 12/15/18 07:00] terazosin 5 mg capsule 5 mg PO DAILY 12/08/18 [History Last Taken Unknown] ibuprofen 600 mg tablet 600 mg PO Q6H PRN PRN Pain #14 tabs 12/15/18 [Rx Last Taken Unknown] Allergy/AdvReac Type Severity Reaction Status Date / Time Sulfa (Sulfonamide Allergy Hives Verified 02/07/23 11:06 Antibiotics) Social History Smoking Status: Never smoker [facility] ED Constitutional Constitutional ED: Denies chills or fever(s) Eyes Eyes: Denies blurry vision or change in vision ENT ENT ED: Denies rhinorrhea or sore throat Cardiovascular Cardiovascular: Denies chest pain or palpitations Respiratory/Chest Respiratory/Chest: Denies cough or dyspnea Gastrointestinal Gastrointestinal: Denies nausea or vomiting Genitourinary Genitourinary ED: Reports hematuria; Denies dysuria Musculoskeletal Musculoskeletal: Denies back pain or neck pain Integumentary Denies abscess or rash Neurologic Neurologic: Denies headache(s) or weakness Allergic/Immunologic Allergic/Immunologic ED: Denies mouth swelling or urticaria EXAM Physical Exam Const Vital Signs: 02/14/23 09:47 09/11/23 13:19 Temperature 96.7 F L Temperature Source Temporal Pulse Rate 88 83 Respiratory Rate 18 16 Blood Pressure 174/91 H 142/74 H Blood Pressure Mean 118 96 Pulse Ox 97 99 Oxygen Delivery Method Room Air Room Air Positive well nourished and well developed General Appearance ED: well developed and NAD HEENT Reports moist mucous membranes Neck supple and no JVD Resp normal respiratory effort and clear to auscultation bilaterally Cardio regular rate and regular rhythm GI non-distended Palpation: soft and tender suprapubic (Mild); Negative for guarding or rebound tenderness present Extremity normal to inspection General Extremety ED: Negative for edema or tenderness General Extremity: Negative for edema Neuro oriented x3, CN's II-XII intact bilaterally and no sensory deficits noted Sensorium / Orientation: alert Motor Exam: strength 5/5 throughout Psych mental status grossly normal MDM MDM MDM Narrative Medical decision making narrative: Differential diagnosis includes hematuria and urinary tract infection. Urinalysis will be obtained to assess for urinary tract infection. Lab Data Attestation: I reviewed the patient's lab results. Lab results narrative: CBC was reviewed. Hemoglobin was 10.3 and hematocrit was 31.0. White blood cell count was normal. Platelets were normal. Basic metabolic profile was reviewed. BUN was 24 and creatinine was 1.6. These are consistent with prior results. Urinalysis was reviewed. There is red cloudy urine. Occult blood was 250 with greater than 100 red blood cells. There is no evidence of urinary tract infection. Labs: Laboratory Results - last 24 hr 02/14/23 02/14/23 11:25 13:40 WBC 7.4 RBC 3.35 L Hgb 10.3 L Hct 31.0 L MCV 92.5 MCH 30.7 MCHC 33.2 RDW Std Deviation 42.8 RDW Coeff of Jerry 12.6 Plt Count 332 MPV 10.2 Immature Gran % (Auto) 0.800 Neut % (Auto) 83.6 H Lymph % (Auto) 6.8 L [place] % (Auto) 7.1 Eos % (Auto) 1.4 Baso % (Auto) 0.3 Absolute Neuts (auto) 6.2 Absolute Lymphs (auto) 0.50 L Nucleated RBC % 0 Sodium 139 Potassium 4.2 Chloride 107 Carbon Dioxide 22.0 Anion Gap 10 BUN 24 H Creatinine 1.60 H Estim Creat Clear Calc 41.19 Est GFR (MDRD) Af Amer 54 L Est GFR (MDRD) Non-Af 45 L BUN/Creatinine Ratio 15.0 Glucose 125 H Calcium 8.6 Urine Color Red Urine Clarity Cloudy Urine pH 8.0 Ur Specific [place] 1.010 Urine Protein 500 H Urine Glucose (UA) Normal Urine Ketones 5 H Urine Occult Blood 250 H Urine Nitrite Negative Urine Bilirubin Negative Urine Urobilinogen Normal Ur Leukocyte Esterase Negative Urine RBC > 100 SEEN Urine WBC 0 SEEN Ur Squamous Epith Cells 0 SEEN Urine Bacteria 0 SEEN Urine Mucus 0 SEEN Radiography Diagnostic Testing: Because of the persistent pain, CT scan of the abdomen and pelvis was obtained. Treatment and Re-Evaluation :: The patient's Worthy catheter was irrigated. Several clots were retrieved. Patient is still complaining of pressure pain in the bladder area. Patient was given a dose of morphine. Patient states this does not help. Because of the persistent pain, CBC and basic metabolic profile will be obtained to relieve to assess for leukocytosis, anemia, electrolyte abnormality, and renal function. CT scan of the abdomen pelvis will also be obtained to assess for bladder mass, ureteral calculus, and pyelonephritis. Case was discussed with Dr. Gilliland. He will take the patient to the operating room for cystoscopy. Patient and spouse understand and are agreeable with the plan. All questions were answered. Discharge Plan Triage Chief Complaint: Complaint ED Provider: Damian Melvin Dx/Rx/DC Orders Clinical Impression: Hematuria, Abdominal pain Prescriptions: No Action terazosin 5 MG capsule 5 mg PO DAILY amlodipine 10 MG tablet 10 mg PO DAILY lisinopril 40 MG tablet 40 mg PO BID ibuprofen 600 MG tablet 600 mg PO Q6H PRN PRN (Reason: Pain) Qty: 14 0RF Primary Care Provider: Eduardo Han Referrals: Eduardo Han MD [Primary Care Provider] - Disposition Disposition: Acute Care [facility]
[2023-02-14 11:32] LABS: Bacteria 0 SEEN /hpf (None Seen); Mucous, Urine 0 SEEN /hpf (<or=2+); Squamous Epithelial Cells - UA 0 SEEN /hpf (0-5); White Blood Cells 0 SEEN /hpf (0-5)
[2023-02-14 11:41] LABS: Color, Urine Red (Yellow); Glucose, Dipstick Normal (Normal); Ketone-Dipstick 5 mg/dl (Negative); Leukocyte Esterase-Dipstick Negative /ul (Negative); Nitrite-Dipstick Negative (Negative); Occult Blood-Urine 250 /ul (Negative); Protein-Dipstick 500 mg/dl (Negative); Urine Bilirubin Dipstick Negative (Negative); Urine Clarity Cloudy (Clear); Urine Urobilinogen Normal (Normal)
[2023-02-14 11:58] LABS: Red Blood Cells-Urine > 100 SEEN /hpf (0-5)
[2023-02-14] MEDS: Morphine 4 MG/ML Syringe IM (12:29)
--- NOTE | 2023-02-14 12:34 | ED.RN ---
FOELY IRRIGATED BY BUFFY,RN- BUFFY ABLE TO REMOVE SOME CLOTS AND ALL IRRIGATED FLUID. BLADDER SCANNED FOR 177ML. DR BERRY UPDATED. AWARE MORPHINE IM ADMIN. THIS NURSE ASKING IF THERE'S ANOTHER MED SUCH ATIVAN OR SOMETHING THAT COULD HELP WITH BLADDER SPASMS B&O SUPPOSITORIES ARE NOT AVAILABLE. DR BERRY ADVISES TO LET MORPHINE HAVE TIME TO WORK AND WILL REEVALUATE.
--- NOTE | 2023-02-14 13:27 | CT_ITS ---
STUDY: CT ABDOMEN AND PELVIS WITHOUT CONTRAST REASON FOR EXAM: Male, 77 years old. Both clot in the Worthy. History of prostate cancer and prior prostatectomy. RADIATION DOSAGE (If Supplied By Facility): CTDIvol = ( 13.48 ) mGy, DLP = ( 714.99 ) mGycm TECHNIQUE: Transaxial images were obtained from the dome of the diaphragm to the symphysis pubis without oral contrast, and without intravenous contrast. Sagittal and coronal images were reconstructed. Individualized dose optimization techniques were used for this CT. COMPARISON: Comparison is made with prior study dated November 10, 2018. FINDINGS: Mild increased markings at the lung bases with very minimal pleural effusion suggestive of bibasilar atelectasis. The visualized portions of the heart are within normal limits. Stable 5.9 mm low-attenuation nodule within the left hepatic lobe suggestive of a small cyst or possibly a small lipoma. Normal gallbladder and extrahepatic biliary system. Normal spleen. Normal pancreas. Normal bilateral adrenal glands. Nonspecific bilateral perinephric stranding. There is a 1 cm hyperdense nodule in the upper pole of the right kidney most likely representing a hyperdense cyst. Mild bilateral hydronephrosis. There is a small hiatal hernia. Normal small intestine. There are colonic diverticula consistent with diverticulosis. The appendix is visualized and appears normal. There is diffuse atherosclerotic calcification of the abdominal aorta, without a demonstrated aneurysm. Normal inferior vena cava. Normal retroperitoneum. A Worthy catheter is seen within the urinary bladder. There is a 7.4 cm x 6.7 cm polypoid mass in the urinary bladder. A neoplastic process should be ruled out. The patient is status post prostatectomy. There is a right-sided inguinal hernia containing adipose tissue. There are degenerative changes of the visualized lumbar spine. CT/Abdomen/Pelvis without Cont IMPRESSION: Large polyp reported mass in the bladder as described. Diagnosed blastic process should be ruled out. Mild degree of bilateral hydronephrosis and perinephric stranding. Findings suggestive of a hyperdense cyst in the upper pole of the right kidney. Small bilateral pleural effusions with bibasilar atelectasis. Electronically Signed: Samy Natarajan MD at 14:21 EDT ,
[2023-02-14] MEDS: HYDROmorphone 1 MG/ML Syringe 0.5 MG IV (13:39)
[2023-02-14 13:53] LABS: Absolute Neutrophil Count 6.2 X10^3/uL (2.0-7.7); Basophil# 0.02 X10^3/uL; Basophil% 0.3 % (0-1); Eosinophils% 1.4 % (0-5); Hemoglobin 10.3 g/dL (13.0-16.5); Lymphocyte % 6.8 % (19-41); Mean Corp Hgb Conc 33.2 g/dL (32-36); Mean Corpuscular Hgb 30.7 pg (27.0-32.0); Mean Corpuscular Volume 92.5 fL (80-94); Mean Platelet Vol. 10.2 fl (6.2-12.0); Monocyte# 0.52 X10^3/uL; Monocyte% 7.1 % (0-10); NRBC Flagged by Analyzer 0 % (0-5); Neutrophil # 6.17 X10^3/uL (2.7-7.7); Neutrophil % 83.6 % (47-70); POSITIVE DIFFERENTIAL YES; Platelet Count 332 K/mm3 (150-450); RBC Distribution Width CV 12.6 % (11.6-14.6); RBC Distribution Width SD 42.8 fl (35.1-43.9); Red Blood Count 3.35 M/mm3 (4.6-6.2); White Blood Count 7.4 K/mm3 (4.4-11.0)
[2023-02-14 13:57] LABS: Differential Indicated SCAN CRITERIA MET
[2023-02-14 14:05] LABS: Anion Gap 10 (5-15); BUN 24 mg/dL (7-18); Calcium,Total 8.6 mg/dL (8.5-10.1); Chloride 107 mmol/L (98-107); EST Glomerular Filtration Rate 45 mL/min (>60); Est Glom Filt Rate - Afr Amer 54 mL/min (>60); Estimated Creatinine Clearance 41.19 ml/min; Glucose 125 mg/dL (74-106); Potassium 4.2 mmol/L (3.5-5.1); Sodium Level 139 mmol/L (136-145)
--- NOTE | 2023-02-14 14:34 | NURSING ---
SURGERY, [address] HEMATURIA, ABD PAIN
[2023-02-14 14:59] LABS: Differential Comment SCANNED
[2023-02-14] MEDS: Lactated Ringers 1,000 ML 15 ML IV (15:17)
--- NOTE | 2023-02-14 16:33 | HP.PCM_ITS ---
HPI - General General Date of Admission: 02/14/23 Date of Service: 02/14/23 Chief Complaint: Gross hematuria HPI Narrative BARBARA PEÑA, is a 77 M who presents to the emergency room with gross hematuria had a cystoscopy clot evacuation done at [facility] last week presents back to the emergency room with more bleeding and a taken back to surgery today hopefully find the bleeding and stop it with cauterization and three-way irrigat ion [facility] Medical History Blood in urine Prostate cancer Home Medications amlodipine 10 mg tablet 10 mg PO DAILY 12/08/18 [History Last Taken 02/14/23] lisinopril 40 mg tablet 40 mg PO BID 12/08/18 [History Last Taken 02/14/23] terazosin 5 mg capsule 5 mg PO DAILY 12/08/18 [History Last Taken Unknown] ibuprofen 600 mg tablet 600 mg PO Q6H PRN PRN Pain #14 tabs 12/15/18 [Rx Last Taken Unknown] Allergy/AdvReac Type Severity Reaction Status Date / Time losartan Allergy Mild Rash Verified 02/14/23 15:16 Sulfa (Sulfonamide Allergy Hives Verified 02/07/23 11:06 Antibiotics) atenolol AdvReac Mild WEAKNESS Verified 02/14/23 15:16 hydrochlorothiazide AdvReac Mild UNKNOWN Verified 02/14/23 15:16 indomethacin [From Indocin] AdvReac Mild GI upset Verified 02/14/23 15:16 Social History Smoking Status: Never smoker Vital Signs Vital Signs Vital Signs: 02/14/23 09:47 02/14/23 13:19 02/14/23 14:38 Temperature 96.7 F L 98.0 F Temperature Source Temporal Oral Pulse Rate 88 83 70 Respiratory Rate 18 16 18 Blood Pressure 174/91 H 142/74 H 144/68 H Blood Pressure Mean 118 96 93 Pulse Ox 97 99 Oxygen Delivery Method Room Air Room Air Room Air Weight Weight: 94.4 kg Body Mass Index (BMI) 29.8 Results Lab / Micro Data 02/14/23 13:40 02/14/23 13:40 Labs: Laboratory Results - last 24 hr 02/14/23 11:25: Urine Color Red, Urine Clarity Cloudy, Urine pH 8.0, Ur Specific [place] 1.010, Urine Protein 500 H, Urine Glucose (UA) Normal, Urine Ketones 5 H , Urine Occult Blood 250 H, Urine Nitrite Negative, Urine Bilirubin Negative, Urine Urobilinogen Normal, Ur Leukocyte Esterase Negative, Urine RBC > 100 SEEN, Urine WBC 0 SEEN, Ur Squamous Epith Cells 0 SEEN, Urine Bacteria 0 SEEN, Urine Mucus 0 SEEN 02/14/23 13:40: WBC 7.4, RBC 3.35 L, Hgb 10.3 L, Hct 31.0 L, MCV 92.5, MCH 30.7, MCHC 33.2, RDW Std Deviation 42.8, RDW Coeff of Jerry 12.6, Plt Count 332, MPV 10.2, Immature Gran % (Auto) 0.800, Neut % (Auto) 83.6 H, Lymph % (Auto) 6.8 L, [place] % (Auto) 7.1, Eos % (Auto) 1.4, Baso % (Auto) 0.3, Absolute Neuts (auto) 6.2, Absolute Lymphs (auto) 0.50 L, Nucleated RBC % 0, Differential Comment SCANNED, Sodium 139, Potassium 4.2, Chloride 107, Carbon Dioxide 22.0, Anion Gap 10, BUN 24 H, Creatinine 1.60 H, Estim Creat Clear Calc 41.19, Est GFR (MDRD) Af Amer 54 L, Est GFR (MDRD) Non-Af 45 L, BUN/Creatinine Ratio 15.0, Glucose 125 H, Calcium 8.6 Radiology Impression Abdomen/Pelvis CT 02/14/23 13:27 IMPRESSION: Large polyp reported mass in the bladder as described. Diagnosed blastic process should be ruled out. Mild degree of bilateral hydronephrosis and perinephric stranding. Findings suggestive of a hyperdense cyst in the upper pole of the right kidney. Small bilateral pleural effusions with bibasilar atelectasis. Electronically Signed: Samy Natarajan MD at 14:21 EDT ,
[2023-02-14] MEDS: Cefazolin 2 GM in 0.9% Normal Saline (100mL Bag) 100 ML IV (17:01)
--- NOTE | 2023-02-14 17:51 | OP.PCM_ITS ---
Report of Operation Date of Procedure: 02/14/23 Pre-Operative Diagnosis: Gross hematuria Post-Operative Diagnosis: The same radiation cystitis Surgery/Procedure Performed:: Cystoscopy clot evacuation cauterization of bleeding from the bladder neck and posterior bladder Description of Surgical Findings:: This is a patient has a history of prostate cancer and underwent a radical prostatectomy in the past had postop radiation therapy. Presented to the hospital here with bleeding taken back to the operating room remove the current catheter went into the bladder with a 21 [place]ian rigid cystourethroscope this was done after the penis and testicles were prepped and draped in usual sterile fashion I evacuated extensive amount of clots within the bladder I then found an area in the back of the bladder at that was raw that was cauterized as a bleeding source and then does also some other areas of bleeding sources from the bladder neck anterior that was cauterized with the Bugbee electrode after doing this and we placed a 22 [place]ian catheter into the bladder with continuous irrigation the urine is fairly clear and we will continue with irrigation until the urine stays clear and the bleeding stops. Patient acetic was reversed taken back to PACU in good condition spoke to the family afterwards. Surgeon: Zhao Gilliland Type of Anesthesia: General Drains: none Estimated Blood Loss (mL): 500 Admit VTE Documentation VTE Present on Admission: No VTE Mechan Device Prophylaxis: SCD's VTE Pharm Prophylaxis ordered?: No
[2023-02-14] MEDS: 0.9% Normal Saline (1000mL) 1,000 ML 125 ML IV (18:03)
[2023-02-14] MEDS: Cefazolin 1 GM/50 ML BAG IV (22:30)
[2023-02-14] MEDS: Docusate Sodium 100 MG Capsule 200 MG PO (22:31)
[2023-02-14] MEDS: Lisinopril 40 MG Tablet PO (22:31)
[2023-02-14] MEDS: Doxazosin 4 MG Tablet PO (22:31)
[2023-02-15] MEDS: 0.9% Normal Saline (1000mL) 1,000 ML 125 ML IV ×3 (01:55→18:47)
[2023-02-15] MEDS: Cefazolin 1 GM/50 ML BAG IV ×3 (05:17→21:00)
[2023-02-15 05:27] VITALS: BP 122/71; PULSE 82; RESP 16; TEMP 37.1; O2SAT 95
[2023-02-15 06:46] LABS: Hematocrit 25.7 % (40-54); Hemoglobin 8.2 g/dL (13.0-16.5); Mean Corp Hgb Conc 31.9 g/dL (32-36); Mean Corpuscular Volume 94.1 fL (80-94); Mean Platelet Vol. 10.5 fl (6.2-12.0); Platelet Count 308 K/mm3 (150-450); RBC Distribution Width CV 12.9 % (11.6-14.6); RBC Distribution Width SD 44.2 fl (35.1-43.9); Red Blood Count 2.73 M/mm3 (4.6-6.2); White Blood Count 8.4 K/mm3 (4.4-11.0)
[2023-02-15] MEDS: Docusate Sodium 100 MG Capsule 200 MG PO ×2 (08:31→21:00)
[2023-02-15] MEDS: amLODIPine 10 MG Tablet PO (08:32)
[2023-02-15] MEDS: Lisinopril 40 MG Tablet PO ×2 (08:32→21:00)
[2023-02-15 08:43] VITALS: BP 120/69; PULSE 83; RESP 16; TEMP 36.3; O2SAT 96
--- NOTE | 2023-02-15 10:41 | CASEMGMT ---
LA GIRON Assessment: Face to Face with pt for initial transition planning/care coordination assessment. LA GIRON introduced self and role at [facility], pt voices understanding and consents to assessment. Pt is A/O x4 and answers all questions appropriately at this time. Pt sitting up in chair in no distress with at bedside. Care providers, pharmacy, and demographics verified/updated. Admitting Dx: hematuria and pain PCP:Guille Specialists:Darshana, uro Preferred Pharmacy: [facility] Insurance: CHIKIS, [employer] Sr Supp Prescription Benefit: yes LNOK: Susi Milan, Living Arrangements: Pt lives with in a single story home with 3 steps to enter with a rail. Pt reports he is I in ADL's but has declined functionally since being hospitalized in [place]. Pt denies concerns at home. Transportation: Pt drives self and denies concerns with transportation. Pt also able to transport pt. DME/HHC/SNF: Pt has a w/c, cane, FWW, high rise toilet and walk in shower. Pt states he just started using the FWW d/t pain in his feet post hospitalization. Pt denies hx of HHC or SNF stays. Pt states that he was set up with a [facility]CE[facility] after hospitalization but his just called as they did not want an out of town agency. states that they recommended [facility]. Pt would like them for services and denies need for a list of any other options of agencies. Discussed having SN, PT and OT, pt and agreeable to this. They also requested therapy to work with pt while hospitalized. Order placed. Pt has had a catheter in the past and feels comfortable with this should he be dc'd with one. Pt states no concerns with going home at time of dc. Pt states no further concerns/needs. CM to follow. Advised pt to ask CM if any further question/concerns/needs arise, voices understanding. Pt Goal: Home with HHC Plan: Home with HHC DANIELLA [facility] at [facility], referral made, will await decision to accept.
--- NOTE | 2023-02-15 12:04 | PN.URO_ITS ---
Subjective Subjective Status post cystoscopy clot evacuation cauterization of bleeding, fortunately today the urine is crystal clear with no blood whatsoever. We can stop the irrigation today I can put him on some gabapentin per family's request for some leg pain and swelling. We will stop CBI and watch the urine for now but fortunately has stopped bleeding. Objective Data Objective Data Vital Signs: Vital Signs Temp Pulse Resp BP Pulse Ox O2 Del Method 97.3 F L 83 16 120/69 96 Room Air 02/15/23 08:43 02/15/23 08:43 02/15/23 08:43 02/15/23 08:43 02/15/23 08:43 02/15/23 08:43 Oxygen Delivery Method Room Air Weight: 94.4 kg Body Mass Index (BMI) 29.8 Intake & Output: Intake and Output for Last 24 Hours 02/13/23 02/14/23 02/15/23 23:59 23:59 23:59 Intake Total 1160.0 / 1160.0 2033.33 / 2033.33 Output Total 2600 / 2600 5125 / 5125 Balance -1440.0 / -1440.0 -3091.67 / -3091.67 Lab / Micro Data 02/15/23 05:45 02/14/23 13:40 Labs: Laboratory Results - last 24 hr 02/14/23 13:40: WBC 7.4, RBC 3.35 L, Hgb 10.3 L, Hct 31.0 L, MCV 92.5, MCH 30.7, MCHC 33.2, RDW Std Deviation 42.8, RDW Coeff of Jerry 12.6, Plt Count 332, MPV 10.2, Immature Gran % (Auto) 0.800, Neut % (Auto) 83.6 H, Lymph % (Auto) 6.8 L, [place] % (Auto) 7.1, Eos % (Auto) 1.4, Baso % (Auto) 0.3, Absolute Neuts (auto) 6.2, Absolute Lymphs (auto) 0.50 L, Nucleated RBC % 0, Differential Comment SCANNED, Sodium 139, Potassium 4.2, Chloride 107, Carbon Dioxide 22.0, Anion Gap 10, BUN 24 H, Creatinine 1.60 H, Estim Creat Clear Calc 41.19, Est GFR (MDRD) Af Amer 54 L, Est GFR (MDRD) Non-Af 45 L, BUN/Creatinine Ratio 15.0, Glucose 125 H, Calcium 8.6 02/15/23 05:45: WBC 8.4, RBC 2.73 L, Hgb 8.2 L, Hct 25.7 L, MCV 94.1 H, MCH 30.0, MCHC 31.9 L, RDW Std Deviation 44.2 H, RDW Coeff of Jerry 12.9, Plt Count 308, MPV 10.5 Radiography Diagnostic Testing: Radiology Impression Abdomen/Pelvis CT 02/14/23 13:27 IMPRESSION: Large polyp reported mass in the bladder as described. Diagnosed blastic process should be ruled out. Mild degree of bilateral hydronephrosis and perinephric stranding. Findings suggestive of a hyperdense cyst in the upper pole of the right kidney. Small bilateral pleural effusions with bibasilar atelectasis. Electronically Signed: Samy Natarajan MD at 14:21 EDT , Physical Exam Const alert and oriented x3 General Appearance: cooperative HEENT normocephalic, head/scalp atraumatic, EAC's normal and TM's normal bilaterally Eyes PERRL and EOMs intact bilaterally Pupil: sluggish Neck no lymphadenopathy, supple and no JVD General: trachea midline Lymph Lymphatic: no lymphadenopathy noted, lymphedema and lymphadenopathy Resp normal respiratory effort, normal air movement and clear to auscultation bilaterally Cardio regular rate, regular rhythm and peripheral pulses 2+ throughout GI soft to palpation, non-tender and non-distended Extremity normal capillary refill and no clubbing, cyanosis or edema General Extremity: no tenderness to palpation of joints or extremities Skin no rashes or lesions noted General Skin Exam: turgor normal Lesions: no lesions Rashes: no rashes Neuro CN's II-XII intact bilaterally Speech: speech normal Motor Exam: strength 5/5 throughout; Negative for general weakness Psych thought process normal, cooperative and affect normal Appearance: appropriate Assessment & Plan Assessment/Plan (1) Hematuria: PLAN: Plan to continue with observation we will stop CBI.
[2023-02-15] MEDS: Gabapentin 100 MG Capsule PO (16:33)
[2023-02-15] MEDS: Doxazosin 4 MG Tablet PO (21:00)
[2023-02-15 21:19] VITALS: BP 118/68; PULSE 82; RESP 18; TEMP 37; O2SAT 95
[2023-02-16 05:00] VITALS: BP 120/77; PULSE 80; RESP 16; TEMP 37.1; O2SAT 95
[2023-02-16] MEDS: Cefazolin 1 GM/50 ML BAG IV ×3 (05:13→22:47)
[2023-02-16] MEDS: 0.9% Normal Saline (1000mL) 1,000 ML 125 ML IV ×3 (05:13→22:47)
[2023-02-16 06:35] LABS: Hemoglobin 8.1 g/dL (13.0-16.5); Mean Corp Hgb Conc 32.4 g/dL (32-36); Mean Corpuscular Hgb 30.7 pg (27.0-32.0); Mean Corpuscular Volume 94.7 fL (80-94); Mean Platelet Vol. 10.2 fl (6.2-12.0); Platelet Count 321 K/mm3 (150-450); RBC Distribution Width CV 12.9 % (11.6-14.6); RBC Distribution Width SD 44.6 fl (35.1-43.9); Red Blood Count 2.64 M/mm3 (4.6-6.2); White Blood Count 8.7 K/mm3 (4.4-11.0)
[2023-02-16 07:35] VITALS: O2SAT 95
[2023-02-16 08:02] VITALS: BP 130/78; PULSE 80; RESP 18; TEMP 36.7; O2SAT 95
[2023-02-16] MEDS: Gabapentin 100 MG Capsule PO ×3 (08:22→17:27)
[2023-02-16] MEDS: Lisinopril 40 MG Tablet PO ×2 (09:21→20:59)
[2023-02-16] MEDS: Docusate Sodium 100 MG Capsule 200 MG PO ×2 (09:21→20:59)
[2023-02-16] MEDS: amLODIPine 10 MG Tablet PO (09:21)
--- NOTE | 2023-02-16 09:30 | CASEMGMT ---
Addendum entered by Génesis Degroot 02/16/23 16:04: Updated Dori at [facility] that pt will not dc today and plan for a voiding trial will be attempted tomorrow. Original Note: LA GIRON notified that pt did not want [facility] services by Dori at [facility]. LA GIRON into pt room, pt states he was not homebound as he can get in the car and go to the doctor. Discussed homebound status with pt and . They verbalize understanding. Pt is homebound currently. Pt agreeable to [facility] for SN, PT and OT if pt goes home with catheter. Pt does not want SN if he does not go home with the catheter. Dori aware.
[2023-02-16 13:41] VITALS: BP 112/66; PULSE 84; RESP 18; TEMP 36.9; O2SAT 97
--- NOTE | 2023-02-16 15:06 | PCM.PN.GU ---
Subjective Subjective Status post resection and cauterization of bladder for bleeding urine now is finally clear he is off irrigation. Will probably plan to remove the catheter tomorrow for voiding trial. Still not sure if he will have to go home with a catheter of choice possible we discussed that with the patient today. Objective Data Objective Data Vital Signs: Vital Signs Temp Pulse Resp BP Pulse Ox O2 Del Method 98.5 F 84 18 112/66 97 Room Air 02/16/23 13:41 02/16/23 13:41 02/16/23 13:41 02/16/23 13:41 02/16/23 13:41 02/16/23 13:41 Oxygen Delivery Method Room Air Weight: 94.4 kg Body Mass Index (BMI) 29.8 Intake & Output: Intake and Output for Last 24 Hours 02/14/23 02/15/23 02/16/23 23:59 23:59 23:59 Intake Total 1160.0 / 1160.0 3133.33 / 3133.33 2450 / 2450 Output Total 2600 / 2600 9325 / 9325 1650 / 1650 Balance -1440.0 / -1440.0 -6191.67 / -6191.67 800 / 800 Lab / Micro Data 02/16/23 06:05 02/14/23 13:40 Labs: Laboratory Results - last 24 hr 02/16/23 06:05: WBC 8.7, RBC 2.64 L, Hgb 8.1 L, Hct 25.0 L, MCV 94.7 H, MCH 30.7, MCHC 32.4, RDW Std Deviation 44.6 H, RDW Coeff of Jerry 12.9, Plt Count 321, MPV 10.2 Assessment & Plan Assessment/Plan (1) Hematuria: (2) Prostate cancer:
[2023-02-16 19:41] VITALS: BP 121/76; PULSE 76; RESP 16; TEMP 36.7; O2SAT 96
[2023-02-16 20:00] VITALS: PULSE 76; O2SAT 96
[2023-02-16] MEDS: Doxazosin 4 MG Tablet PO (21:00)
[2023-02-17 02:00] VITALS: BP 129/71; PULSE 80; RESP 16; TEMP 37; O2SAT 96
[2023-02-17 07:05] LABS: Hematocrit 24.6 % (40-54); Hemoglobin 8.2 g/dL (13.0-16.5); Mean Corp Hgb Conc 33.3 g/dL (32-36); Mean Corpuscular Hgb 30.9 pg (27.0-32.0); Mean Corpuscular Volume 92.8 fL (80-94); Platelet Count 330 K/mm3 (150-450); RBC Distribution Width CV 12.6 % (11.6-14.6); RBC Distribution Width SD 42.8 fl (35.1-43.9); Red Blood Count 2.65 M/mm3 (4.6-6.2); White Blood Count 8.7 K/mm3 (4.4-11.0)
[2023-02-17] MEDS: 0.9% Normal Saline (1000mL) 1,000 ML 125 ML IV (07:07)
[2023-02-17] MEDS: Cefazolin 1 GM/50 ML BAG IV (07:08)
--- NOTE | 2023-02-17 07:24 | PCM.DC.SUM ---
Providers Date of Admission: 02/14/23 Primary Care Physician: Dr. Eduardo Han MD Reason For Visit: HEMATURIA AND PAIN Diagnosis Discharge Diagnosis (1) Hematuria: Status: Acute Code(s): R31.9 - Hematuria, unspecified Plan: Plan to continue with observation we will stop CBI. (2) Prostate cancer: Status: Acute Code(s): C61 - Malignant neoplasm of prostate Medications at Discharge Home Medications amlodipine 10 mg tablet 10 mg PO DAILY 12/08/18 lisinopril 40 mg tablet 40 mg PO BID 12/08/18 terazosin 5 mg capsule 5 mg PO DAILY 12/08/18 ibuprofen 600 mg tablet 600 mg PO Q6H PRN PRN Pain #14 tabs 12/15/18 Hospital Course Summary of Care Provided Minutes Spent on Discharge: 35 Hospital Course: 77-year-old male with a history of prostate cancer who had his radical prostatectomy at the [facility] about 10 years ago after that he had biochemical recurrence so he had salvage radiation therapy. Last week he presented to [facility] with severe pain and bleeding but I was out of town so the patient was t transferred up to [place] and then from [place] he told he was transferred to [facility] and with surgery there and had a cystoscopy clot evacuation according to the patient not have any wrote notes but then he presented to the ER here at [facility] and they called me so the patient was admitted I took him to surgery and found to have bleeding from and a small laceration tear in the back of the bladder this was cauterized and also some bleeding at the bladder neck and this was also cauterized since then he was on continuous bladder irrigation we then stopped irrigation the last day and a half has been clear with no blood in the urine been draining well nice and clear. Patient states that the urine was never clear when he was at the other hospital. Today we removed his Worthy catheter this morning and if he is able to urinate he can go home without a catheter if he is not able to urinate want to send him home with a 18 [place] catheter and he can follow-up in my office in a few weeks for checkup. Physical Exam Const alert and oriented x3 General Appearance: cooperative HEENT normocephalic, head/scalp atraumatic, EAC's normal and TM's normal bilaterally Eyes PERRL and EOMs intact bilaterally Pupil: sluggish Neck no lymphadenopathy, supple and no JVD General: trachea midline Lymph Lymphatic: no lymphadenopathy noted, lymphedema and lymphadenopathy Resp normal respiratory effort, normal air movement and clear to auscultation bilaterally Cardio regular rate, regular rhythm and peripheral pulses 2+ throughout GI soft to palpation, non-tender and non-distended Extremity normal capillary refill and no clubbing, cyanosis or edema General Extremity: no tenderness to palpation of joints or extremities Skin no rashes or lesions noted General Skin Exam: turgor normal Lesions: no lesions Rashes: no rashes Neuro CN's II-XII intact bilaterally Speech: speech normal Motor Exam: strength 5/5 throughout; Negative for general weakness Psych thought process normal, cooperative and affect normal Appearance: appropriate Medical Records Data Attestation: I reviewed the patient's medical records Weight / BMI Weight Weight: 94.4 kg Body Mass Index (BMI) 29.8 ABG / Lab / Microbiology Data 02/17/23 06:30 02/14/23 13:40 Laboratory: Laboratory Results - last 24 hr 02/17/23 06:30: WBC 8.7, RBC 2.65 L, Hgb 8.2 L, Hct 24.6 L, MCV 92.8, MCH 30.9, MCHC 33.3, RDW Std Deviation 42.8, RDW Coeff of Jerry 12.6, Plt Count 330, MPV 10.0 D/C Instructions Discharge Diet: No restrictions Discharge Activity: Return to Normal Activity and May Not Shower May resume sexual activity in: 6-8 weeks Additional Activity Instructions: No heavy lifting and no strenuous activity, do not take any blood thinners no aspirin Call your doctor if your incision/area has: Continuous Slow Oozing Call your doctor if you observe: Fever of 101 or Higher Please Follow Up With: Zhao Gilliland MD When: Discharge home after he is able to urinate follow-up in my office in a few weeks Meaningful Use Info Meaningful Use Diagnoses (Choose all that apply): None applicable Discharge Plan Admission Admit Date/Time: 02/14/23 17:39 Primary Reason for Your Visit: bleeding. Attending Provider: Zhao Gilliland Primary Care Provider: Eduardo Han Discharge Orders/Prescriptions Prescriptions: No Action terazosin 5 MG capsule 5 mg PO DAILY amlodipine 10 MG tablet 10 mg PO DAILY lisinopril 40 MG tablet 40 mg PO BID ibuprofen 600 MG tablet 600 mg PO Q6H PRN PRN (Reason: Pain) Qty: 14 0RF Referrals / Follow Up: Eduardo Han MD [Primary Care Provider] - Zhao Gilliland MD [Med Staff - Active Staff] -
[2023-02-17] MEDS: amLODIPine 10 MG Tablet PO (07:44)
[2023-02-17] MEDS: Gabapentin 100 MG Capsule PO ×2 (07:44→11:39)
[2023-02-17] MEDS: Docusate Sodium 100 MG Capsule 200 MG PO (07:44)
[2023-02-17] MEDS: Lisinopril 40 MG Tablet PO (07:44)
[2023-02-17 08:00] VITALS: BP 135/79; PULSE 82; RESP 18; TEMP 36.6; O2SAT 97
--- NOTE | 2023-02-17 13:32 | CASEMGMT ---
LA CM NOTE: Discharge order is in. Per Kriss TOVAR, voiding trial attempted w/out success and F/C was re-inserted. Pt will discharge home w/ F/C today. Call placed to Dori @ [facility] and she was made aware and that SN will be needed w/C. German RENTERIAN RN CM
[2023-02-17 15:00] VITALS: BP 129/73; PULSE 99; RESP 18; TEMP 37.1; O2SAT 97
== END 2023-02-17 15:21 | disposition home or self-care (01) | DRG 663 ==
LOC: ED 14:15 → MS3 14:43
PROVIDERS: Admitting Provider Urology; Emergency Provider Emergency Medicine; PCP Family Medicine; Visit Provider Urology
PROC: 0W3R8ZZ Control Bleeding in Genitourinary Tract, Via Natural or Artificial Opening Endoscopic (ICD-10-PCS; CPT 52214; principal; 2023-02-14 15:50)
DX: R31.0 Gross hematuria (principal); S37.23XA Laceration of bladder, initial encounter; N30.40 Irradiation cystitis without hematuria; Y84.2 Radiological procedure and radiotherapy as the cause of abnormal reaction of the patient, or of later complication, without mention of misadventure at the time of the procedure; M79.89 Other specified soft tissue disorders; M79.606 Pain in leg, unspecified; R33.9 Retention of urine, unspecified; R10.9 Unspecified abdominal pain; Z79.899 Other long term (current) drug therapy; Z85.46 Personal history of malignant neoplasm of prostate; Z92.3 Personal history of irradiation; Z90.79 Acquired absence of other genital organ(s)
CPT/HCPCS: 36415; 74176; 80048; 81001; 85025; 85027; 97162; 97166; 97530; 97535; 99282; J7030; J7120; A4216

== ENCOUNTER 2023-02-19 21:50 | Inpatient (IN) | payer MEDICARE, OTHER, SELFPAY ==
[2023-02-19 21:51] VITALS: BP 129/69; PULSE 93; RESP 16; TEMP 36.6; O2SAT 97; BMI 30.8
--- NOTE | 2023-02-19 23:00 | ED.RN ---
This RN irrigated patient's perdomo per DO request. Multiple attempts made to irrigate with approx. 600 cc of NS. Multiple blood clots returned, but continued to meet resistance. Some relief noted by patient. Continued to attempt to irrigate, unable to get return. Dr Macias at bedside and observed, to contact urology.
--- NOTE | 2023-02-19 23:08 | EDS_ITS ---
HPI History of Present Illness Chief Complaint: Worthy C/O Narrative Narrative: Patient is a 77-year-old male with longstanding history of hematuria associated with prior prostate cancer radiation presenting with recurrence Worthy catheter malfunction. Patient has been going through worsening hematuria which is been blocking up his Worthy catheter for the past 3 weeks. He is actually been admitted to our hospital and also at [facility]. He has had 2 different cystoscopies as well. He had no drainage of his Worthy catheter around noon today however he had home health come in and they switched out his Worthy catheter at that time. He was fine until around 5 PM when he noticed it was not draining again. He did try to flush it at home with no relief. He continues to have hematuria. He came into the ER for further evaluation. He states he has a mild sense of needing to urinate but is not severe at this point. Denies any other systemic symptoms. Otherwise feeling well. No other complaints or concerns at this time. Is not on any blood thinners. PFSH [facility] Medical History Blood in urine Prostate cancer Home Medications amlodipine 10 mg tablet 10 mg PO DAILY 12/08/18 [History Last Taken 02/14/23] lisinopril 40 mg tablet 40 mg PO BID 12/08/18 [History Last Taken 02/14/23] terazosin 5 mg capsule 5 mg PO DAILY 12/08/18 [History Last Taken Unknown] ibuprofen 600 mg tablet 600 mg PO Q6H PRN PRN Pain #14 tabs 12/15/18 [Rx Last Taken Unknown] gabapentin 100 mg capsule 100 mg PO Q8H 02/19/23 [History Last Taken Unknown] Allergy/AdvReac Type Severity Reaction Status Date / Time losartan Allergy Mild Rash Verified 02/19/23 21:51 Sulfa (Sulfonamide Allergy Hives Verified 02/19/23 21:51 Antibiotics) atenolol AdvReac Mild WEAKNESS Verified 02/19/23 21:51 hydrochlorothiazide AdvReac Mild UNKNOWN Verified 02/19/23 21:51 indomethacin [From Indocin] AdvReac Mild GI upset Verified 02/19/23 21:51 Social History Smoking Status: Never smoker ROS ROS ED Constitutional Constitutional ED: Denies chills or fever(s) Respiratory/Chest Respiratory/Chest: Denies cough Gastrointestinal Gastrointestinal: Reports abdominal pain; Denies nausea or vomiting Genitourinary Genitourinary ED: Reports hematuria and other Details: Worthy catheter malfunction Musculoskeletal Musculoskeletal: Reports other Details: Leg swelling ; Denies arthralgias or myalgias Integumentary Denies rash Neurologic Neurologic: Denies headache(s) Psychiatric Psychiatric: Denies anxiety Hematologic/Lymphatic Hematologic/Lymphatic: Reports easy bleeding EXAM Physical Exam Const Vital Signs: 02/19/23 21:51 Temperature 97.8 F Temperature Source Temporal Pulse Rate 93 Respiratory Rate 16 Blood Pressure 129/69 H Blood Pressure Mean 89 Pulse Ox 97 Positive well nourished and well developed General Appearance ED: well developed and NAD; Negative for pallor HEENT Reports moist mucous membranes Eyes PERRL Neck supple Resp normal respiratory effort and clear to auscultation bilaterally Cardio regular rate, regular rhythm and no murmurs GI GI Narrative: Mild suprapubic tenderness to palpation. Questionably palpable bladder. no CVA tenderness Narrative: Worthy catheter in place, there is red urine and clots in bag. The Worthy catheter is not currently draining. Back/Spine no CVA tenderness Extremity General Extremety ED: Yes edema General Extremity: edema Neuro oriented x3 Sensorium / Orientation: alert Psych mental status grossly normal Skin General Skin Exam: Negative for pallor Rashes: no rashes MDM MDM MDM Narrative Medical decision making narrative: Patient is evaluated for continued hematuria that is now blocked up his Worthy catheter. He currently has a 20-gauge Worthy in. It was changed earlier this afternoon by home health. Nursing staff flushed his Worthy for about 15-20 minutes. He continued to have clots come out but he never had full resolution of the obstruction and did not have a freely draining catheter. Feel this point patient likely needs a three-way irrigating Worthy catheter however patient states this is always had to be done with wire. I spoke with the patient's urologist, Dr. Gilliland who is familiar with him. He will come in and take him to the OR tonight. IV is placed and screening labs are obtained. Patient is quite agreeable with this plan of care. Discharge Plan Triage Chief Complaint: Worthy C/O ED Provider: Temi Macias Dx/Rx/DC Orders Clinical Impression: Hematuria, Complication, blocked Worthy catheter Prescriptions: No Action terazosin 5 MG capsule 5 mg PO DAILY amlodipine 10 MG tablet 10 mg PO DAILY lisinopril 40 MG tablet 40 mg PO BID ibuprofen 600 MG tablet 600 mg PO Q6H PRN PRN (Reason: Pain) Qty: 14 0RF gabapentin 100 mg capsule 100 mg PO Q8H Patient Comments: take 1 capsule by mouth every 8 hours Primary Care Provider: Eduardo Han Referrals: Eduardo Han MD [Primary Care Provider] - Disposition Disposition: Acute Care Hospital [facility]
[2023-02-20] VITALS (12 sets, daily range): BP systolic 108–133; BP diastolic 65–79; PULSE 68–86; RESP 16–18; TEMP 36.5–37.1; O2SAT 95–100; BMI 30.8
[2023-02-20 00:05] LABS: Absolute Lymphocyte Count 0.63 X10^3/uL (0.83-4.51); Absolute Neutrophil Count 5.2 X10^3/uL (2.0-7.7); Basophil# 0.05 X10^3/uL; Basophil% 0.7 % (0-1); Eosinophil# 0.29 X10^3/uL; Hematocrit 25.7 % (40-54); Hemoglobin 8.3 g/dL (13.0-16.5); Lymphocyte # 0.63 X10^3/ul (0.83-4.51); Lymphocyte % 8.8 % (19-41); Mean Corp Hgb Conc 32.3 g/dL (32-36); Mean Corpuscular Hgb 29.9 pg (27.0-32.0); Mean Corpuscular Volume 92.4 fL (80-94); Mean Platelet Vol. 9.8 fl (6.2-12.0); Monocyte% 11.1 % (0-10); NRBC Flagged by Analyzer 0.3 % (0-5); Neutrophil # 5.21 X10^3/uL (2.7-7.7); Neutrophil % 72.6 % (47-70); Platelet Count 435 K/mm3 (150-450); RBC Distribution Width CV 12.4 % (11.6-14.6); RBC Distribution Width SD 42.6 fl (35.1-43.9); Red Blood Count 2.78 M/mm3 (4.6-6.2); White Blood Count 7.2 K/mm3 (4.4-11.0)
[2023-02-20 00:15] LABS: Anion Gap 6 (5-15); BUN 22 mg/dL (7-18); BUN/Creat Ratio 19.3 RATIO (10-20); Chloride 109 mmol/L (98-107); Creatinine, Serum 1.14 mg/dL (0.70-1.30); EST Glomerular Filtration Rate 67 mL/min (>60); Est Glom Filt Rate - Afr Amer 81 mL/min (>60); Estimated Creatinine Clearance 55.99 ml/min; Glucose 118 mg/dL (74-106); Potassium 3.8 mmol/L (3.5-5.1); Sodium Level 137 mmol/L (136-145)
--- NOTE | 2023-02-20 01:01 | PCM.HP.STD ---
HPI - General General Date of Admission: 02/20/23 Date of Service: 02/20/23 Chief Complaint: Gross hematuria HPI Narrative BARBARA PEÑA, is a 77 M who presents with gross hematuria he has a history of prostate cancer had a radical prostatectomy in the past this was followed with radiation therapy afterwards for recurrence. Last week he is in the hospital for the same problem with bleeding I cauterized the completely he was completely clear he went home but unfortunately started bleeding ago when he is at home came back to the emergency room today clotted off completely. So organ to take him to the emergency surgery at this point to evacuate all the clots and cauterize the bleeding again. [facility] Medical History Blood in urine Prostate cancer Home Medications amlodipine 10 mg tablet 10 mg PO DAILY 12/08/18 [History Last Taken 02/14/23] lisinopril 40 mg tablet 40 mg PO BID 12/08/18 [History Last Taken 02/14/23] terazosin 5 mg capsule 5 mg PO DAILY 12/08/18 [History Last Taken Unknown] ibuprofen 600 mg tablet 600 mg PO Q6H PRN PRN Pain #14 tabs 12/15/18 [Rx Last Taken Unknown] gabapentin 100 mg capsule 100 mg PO Q8H 02/19/23 [History Last Taken Unknown] Allergy/AdvReac Type Severity Reaction Status Date / Time losartan Allergy Mild Rash Verified 02/19/23 21:51 Sulfa (Sulfonamide Allergy Hives Verified 02/19/23 21:51 Antibiotics) atenolol AdvReac Mild WEAKNESS Verified 02/19/23 21:51 hydrochlorothiazide AdvReac Mild UNKNOWN Verified 02/19/23 21:51 indomethacin [From Indocin] AdvReac Mild GI upset Verified 02/19/23 21:51 Social History Smoking Status: Never smoker ROS Constitutional Constitutional: Denies chills, fever(s) or malaise Eyes Eyes: Denies blurry vision or change in vision ENT HEENT: Reports none Cardiovascular Cardiovascular: Denies chest pain or palpitations Respiratory/Chest Respiratory/Chest: Denies cough or shortness of breath with exertion Gastrointestinal Gastrointestinal: Denies abdominal pain, constipation or diarrhea Musculoskeletal Musculoskeletal: Denies back pain, joint stiffness or joint swelling Integumentary Integumentary: Denies dry skin, jaundice, lesions or rash Neurologic Neurologic: Denies confusion, syncope or weakness Psychiatric Psychiatric: Reports none; Denies anxiety or depression Endocrine Endocrinology: Denies excessive sweating, fatigue or flushing Hematologic/Lymphatic Hematologic/Lymphatic: Denies anemia, easy bleeding or easy bruising Vital Signs Vital Signs Vital Signs: 02/19/23 21:51 02/20/23 00:00 02/20/23 00:04 Temperature 97.8 F 98.5 F 98.5 F Temperature Source Temporal Oral Oral Pulse Rate 93 81 80 Respiratory Rate 16 16 16 Blood Pressure 129/69 H 118/65 118/65 Blood Pressure Mean 89 82 82 Blood Pressure Source Monitor Blood Pressure Position Semi-Fowlers Blood Pressure Location Right Arm Pulse Ox 97 96 98 Oxygen Delivery Method Room Air Room Air Weight Weight: 94.8 kg Body Mass Index (BMI) 30.8 Physical Exam Const alert and oriented x3 General Appearance: cooperative HEENT normocephalic, head/scalp atraumatic, EAC's normal and TM's normal bilaterally Eyes PERRL and EOMs intact bilaterally Pupil: sluggish Neck no lymphadenopathy, supple and no JVD General: trachea midline Lymph Lymphatic: no lymphadenopathy noted, lymphedema and lymphadenopathy Resp normal respiratory effort, normal air movement and clear to auscultation bilaterally Cardio regular rate, regular rhythm and peripheral pulses 2+ throughout GI soft to palpation, non-tender and non-distended Extremity normal capillary refill and no clubbing, cyanosis or edema General Extremity: no tenderness to palpation of joints or extremities Skin no rashes or lesions noted General Skin Exam: turgor normal Lesions: no lesions Rashes: no rashes Neuro CN's II-XII intact bilaterally Speech: speech normal Motor Exam: strength 5/5 throughout; Negative for general weakness Psych thought process normal, cooperative and affect normal Appearance: appropriate Results Lab / Micro Data 02/19/23 23:52 02/19/23 23:52 Labs: Laboratory Results - last 24 hr 02/19/23 23:52: WBC 7.2, RBC 2.78 L, Hgb 8.3 L, Hct 25.7 L, MCV 92.4, MCH 29.9, MCHC 32.3, RDW Std Deviation 42.6, RDW Coeff of Jerry 12.4, Plt Count 435, MPV 9.8, Immature Gran % (Auto) 2.800 H, Neut % (Auto) 72.6 H, Lymph % (Auto) 8.8 L, [place] % (Auto) 11.1 H, Eos % (Auto) 4.0, Baso % (Auto) 0.7, Absolute Neuts (auto) 5.2, Absolute Lymphs (auto) 0.63 L, Nucleated RBC % 0.3, Sodium 137, Potassium 3.8, Chloride 109 H, Carbon Dioxide 22.0, Anion Gap 6, BUN 22 H, Creatinine 1.14, Estim Creat Clear Calc 55.99, Est GFR (MDRD) Af Amer 81, Est GFR (MDRD) Non-Af 67, BUN/Creatinine Ratio 19.3, Glucose 118 H, Calcium 8.0 L, Blood Type O POSITIVE, Antibody Screen NEGATIVE Assessment & Plan Assessment/Plan (1) Complication, blocked Worthy catheter: QUALIFIERS: Encounter type: subsequent encounter Qualified Code(s): T83.091D - Other mechanical complication of indwelling urethral catheter, subsequent encounter PLAN: Clotted off with bleeding (2) Prostate cancer: PLAN: History of prostate cancer treated no recurrence (3) Hematuria: QUALIFIERS: Hematuria type: gross Qualified Code(s): R31.0 - Gross hematuria PLAN: Plan to take the surgery for evacuation of clots and cauterization of bleeding and start three-way irrigation
--- NOTE | 2023-02-20 01:39 | OP.PCM_ITS ---
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 The catheter was removed. I went into the bladder with a 21 [place] rigid cystourethroscope entire length the urethra was normal inside the bladder he had a heavy amount of clots in the back of the bladder these were evacuated out then looking at the bladder there was oozing from multiple sites I had a extensive amount of serpiginous veins all over the bladder that were bleeding easily so then used the [place] electrode returned at the coagulation of 120 and I took an extensive amount of time to to carefully cauterize every dilated vein that looked like it could bleed in the bladder I made sure that I did not cauterize the left and right ureteral orifice ease were identified and I cauterized around these but the bladder neck was cauterized extensively posterior wall was cauterized extensively lateral wall was cauterized extensively and the anterior carbajal were cauterized extensively all the areas that were affected by the radiation were cauterized. At the end of the cauterization I feel the bladder turned off irrigation there was no bleeding from anywhere. I then put a 22 [place] catheter in the bladder and put on continuous irrigation. Hopefully by cauterizing all these future areas that could bleed the patient will not bleed again. Patient anesthetic was reversed taken back to PACU in good condition we will continue with irrigation afterwards Surgeon: Zhao Gilliland Type of Anesthesia: General Drains: 22 [place] three-way Admit VTE Documentation VTE Present on Admission: No VTE Mechan Device Prophylaxis: SCD's VTE Pharm Prophylaxis ordered?: No
[2023-02-20] MEDS: 0.9% Saline Lock 10 ML Syringe IV (02:46)
[2023-02-20] MEDS: Morphine 2 MG/ML Syringe IV (02:46)
[2023-02-20] MEDS: Acetaminophen 325 MG Tablet PO (02:46)
[2023-02-20] MEDS: Lactated Ringers 1,000 ML 125 ML IV (02:46)
[2023-02-20] MEDS: Gabapentin 100 MG Capsule PO ×3 (03:08→22:12)
[2023-02-20] MEDS: Lisinopril 40 MG Tablet PO ×2 (08:06→22:13)
[2023-02-20] MEDS: Docusate Sodium 100 MG Capsule 200 MG PO ×2 (08:06→22:12)
[2023-02-20] MEDS: amLODIPine 10 MG Tablet PO (08:06)
[2023-02-20] MEDS: Ensure Plus High Protein 120 ML LIQUID PO ×4 (08:06→22:16)
[2023-02-20] MEDS: Ciprofloxacin 400 MG/200 ML BAG 200 MG IV ×2 (09:27→22:12)
--- NOTE | 2023-02-20 11:52 | PCM.CONS.B ---
Consult Date of Consult: 02/20/23 Reason for Consult Status post cystoscopy evacuation of clots and cauterization of bleeding he has radiation cystitis. Came back with bleeding again only a small amount of blood clots this time but he was still bleeding from areas within the bladder from radiation cystitis. This time I extensively cauterized the bladder. I told the patient I cauterized every blood vessels that look like it could bleed. The urine is crystal clear we can stop irrigation Hep-Lock IV fluids ambulate he will need to go home with a catheter probably discharge tomorrow morning with the Worthy catheter to a large bag I do not want home health care changing or manipulating the catheter. He had to go with a catheter we will leave it in for 10 days and I will see him in the office for removal.
[2023-02-20] MEDS: Doxazosin 4 MG Tablet PO (22:13)
[2023-02-21 02:30] VITALS: BP 125/74; PULSE 79; RESP 16; TEMP 37.3; O2SAT 97
[2023-02-21] MEDS: Gabapentin 100 MG Capsule PO (06:14)
--- NOTE | 2023-02-21 07:35 | PCM.DC.BLA ---
Discharge Summary Summary: 77-year-old male has a history of prostate cancer was treated with radical prostatectomy and salvage radiation therapy a long time ago presented to the hospital with gross hematuria and bleeding from radiation cystitis was taken to the operating room and this was cauterized discharge he then presented back to the emergency room a few days later with more bleeding. Had to take the patient back again to surgery and we did extensive cauterization of all the areas of radiation cystitis. The patient was irrigated for 24 hours the urine was crystal clear. The irrigation was stopped and we will observe him for another 24 hours and this morning the urine remains clear with no blood whatsoever. He will go home with the Worthy catheter. I do not want the Worthy catheter changed or manipulated. He will need to follow-up in my office next week for catheter removal and he needs to call make an appointment. Physical Exam Const alert and oriented x3 General Appearance: cooperative HEENT normocephalic, head/scalp atraumatic, EAC's normal and TM's normal bilaterally Eyes PERRL and EOMs intact bilaterally Pupil: sluggish Neck no lymphadenopathy, supple and no JVD General: trachea midline Lymph Lymphatic: no lymphadenopathy noted, lymphedema and lymphadenopathy Resp normal respiratory effort, normal air movement and clear to auscultation bilaterally Cardio regular rate, regular rhythm and peripheral pulses 2+ throughout GI soft to palpation, non-tender and non-distended Extremity normal capillary refill and no clubbing, cyanosis or edema General Extremity: no tenderness to palpation of joints or extremities Skin no rashes or lesions noted General Skin Exam: turgor normal Lesions: no lesions Rashes: no rashes Neuro CN's II-XII intact bilaterally Speech: speech normal Motor Exam: strength 5/5 throughout; Negative for general weakness Psych thought process normal, cooperative and affect normal Appearance: appropriate Meaningful Use Info Meaningful Use Diagnoses (Choose all that apply): None applicable Discharge Plan Admission Admit Date/Time: 02/20/23 01:43 Primary Reason for Your Visit: cauterize bleeding Attending Provider: Zhao Gilliland Primary Care Provider: Eduardo Han Discharge Orders/Prescriptions Prescriptions: New ciprofloxacin HCl [Cipro] 500 mg tablet 500 mg PO BID Qty: 14 0RF Discontinued ibuprofen 600 MG tablet 600 mg PO Q6H PRN PRN (Reason: Pain) Qty: 14 0RF No Action terazosin 5 MG capsule 5 mg PO DAILY amlodipine 10 MG tablet 10 mg PO DAILY lisinopril 40 MG tablet 40 mg PO BID gabapentin 100 mg capsule 100 mg PO Q8H Patient Comments: take 1 capsule by mouth every 8 hours Referrals / Follow Up: Eduardo Han MD [Primary Care Provider] - Zhao Gilliland MD [Med Staff - Active Staff] - Disposition Discharge Orders: Discharge Patient (Routine); Ordered 02/21/23 Ordered By: Dr. Zhao Gilliland
[2023-02-21 09:46] VITALS: BP 134/78; PULSE 85; RESP 16; TEMP 36.8; O2SAT 96
[2023-02-21] MEDS: amLODIPine 10 MG Tablet PO (09:48)
[2023-02-21] MEDS: Lisinopril 40 MG Tablet PO (09:48)
[2023-02-21] MEDS: Docusate Sodium 100 MG Capsule 200 MG PO (09:48)
--- NOTE | 2023-02-21 09:52 | PHA.DC_ITS ---
Pharmacy [facility] Pharmacy Service has performed discharge medication reconciliation and counseling for this patient. The patient's discharge medication list was reviewed for discrepancies and discrepancies were resolved. The patient was counseled on the following discharge medications and changes in medications for homegoing were reviewed. The Reason for Use, instructions for use, and potential side effects were reviewed for all new medications. The patient's questions regarding all of their medications were answered. 1. Ciprofloxacin 500 mg PO BID x 7 days The patient was able to verbally demonstrate an understanding of their discharge medications. Medications at Discharge Home Medications amlodipine 10 mg tablet 10 mg PO DAILY 12/08/18 lisinopril 40 mg tablet 40 mg PO BID 12/08/18 terazosin 5 mg capsule 5 mg PO DAILY 12/08/18 gabapentin 100 mg capsule 100 mg PO Q8H 02/19/23 ciprofloxacin HCl 500 mg tablet (Cipro) 500 mg PO BID #14 tabs 02/20/23
--- NOTE | 2023-02-21 10:09 | CASEMGMT ---
[facility] readmission note: Index admission: Admitted 02/14 w/hematuria and pain. Discharged home w/F/C and [facility] for SN and PT/OT. Current admission: Admitted 02/20. F/C became occluded @ home. [facility] went out to see pt and exchanged the F/C, but it became occluded again. Pt readmitted to [facility]. Pt being discharged home today w/ F/C. [facility] to room. Pt states would like resumption of [facility] services and declines wanting list of other [facility] options. [facility] order placed. Call placed to Dori @ [facility]. She was made aware pt was admitted to [facility] and is being discharged back home today w/ F/C and would like [facility] services. Per Dr Gilliland discharge summary today: presented to the hospital with gross hematuria and bleeding from radiation cystitis was taken to the operating room and this was cauterized discharge he then presented back to the emergency room a few days later with more bleeding. Had to take the patient back again to surgery and we did extensive cauterization of all the areas of radiation cystitis. The patient was irrigated for 24 hours the urine was crystal clear. The irrigation was stopped and we will observe him for another 24 hours and this morning the urine remains clear with no blood whatsoever. He will go home with the Worthy catheter. German PUCKETT RN, CM
== END 2023-02-21 10:22 | disposition home health service (06) | DRG 664 ==
LOC: ED 22:33 → MS3 23:51
PROVIDERS: Admitting Provider Urology; Emergency Provider Emergency Medicine; PCP Family Medicine; Visit Provider Urology
PROC: 0W3R8ZZ Control Bleeding in Genitourinary Tract, Via Natural or Artificial Opening Endoscopic (ICD-10-PCS; CPT 52214; principal; 2023-02-20 00:30)
DX: N30.41 Irradiation cystitis with hematuria (principal); R31.0 Gross hematuria; T83.091A Other mechanical complication of indwelling urethral catheter, initial encounter; Y84.2 Radiological procedure and radiotherapy as the cause of abnormal reaction of the patient, or of later complication, without mention of misadventure at the time of the procedure; Z79.899 Other long term (current) drug therapy; Z85.46 Personal history of malignant neoplasm of prostate; Z90.79 Acquired absence of other genital organ(s)
CPT/HCPCS: 80048; 85025; 86850; 86900; 86901; 94668; 97802; 99285; J7030; J7120; A4216; J0744; J2405

== ENCOUNTER 2023-03-01 14:33 | Emergency (ER) | payer MEDICARE, OTHER, SELFPAY ==
[2023-03-01 14:34] VITALS: BP 112/66; PULSE 78; RESP 20; TEMP 36.1; O2SAT 98; BMI 29.0
--- NOTE | 2023-03-01 15:05 | EDS_ITS ---
HPI History of Present Illness Chief Complaint: Syncope [facility] Medical History Blood in urine Prostate cancer Home Medications amlodipine 10 mg tablet 10 mg PO DAILY 12/08/18 [History Last Taken 02/14/23] lisinopril 40 mg tablet 40 mg PO BID 12/08/18 [History Last Taken 02/14/23] terazosin 5 mg capsule 5 mg PO DAILY 12/08/18 [History Last Taken Unknown] gabapentin 100 mg capsule 100 mg PO Q8H 02/19/23 [History Last Taken Unknown] ciprofloxacin HCl 500 mg tablet (Cipro) 500 mg PO BID #14 tabs 02/20/23 [Rx Last Taken Unknown] Allergy/AdvReac Type Severity Reaction Status Date / Time losartan Allergy Mild Rash Verified 03/01/23 14:39 Sulfa (Sulfonamide Allergy Hives Verified 03/01/23 14:39 Antibiotics) atenolol AdvReac Mild WEAKNESS Verified 03/01/23 14:39 hydrochlorothiazide AdvReac Mild UNKNOWN Verified 03/01/23 14:39 indomethacin [From Indocin] AdvReac Mild GI upset Verified 03/01/23 14:39 Social History (Updated 03/01/23 @ 15:53 by Drea Gonzalez) household members: spouse housing: house Smoking Status: Never smoker EXAM Physical Exam Const Vital Signs: 03/01/23 14:34 03/01/23 15:09 03/01/23 14:33 Temperature 97 F L Temperature Source Temporal Pulse Rate 78 Respiratory Rate 20 H Respiratory Effort Normal Respiratory Pattern Normal Blood Pressure 112/66 Blood Pressure Mean 81 Pulse Ox 98 Oxygen Delivery Method Room Air Room Air 03/01/23 16:54 03/01/23 18:00 Temperature Temperature Source Pulse Rate 78 86 Respiratory Rate 16 22 H Respiratory Effort Respiratory Pattern Blood Pressure Blood Pressure Mean Pulse Ox 96 97 Oxygen Delivery Method Room Air MDM MDM MDM Narrative Medical decision making narrative: HISTORY OF PRESENT ILLNESS: 77-year-old male here with concern for near syncope. Patient is at his urologist office prior to arrival. States he got his Worthy pulled out After which he felt dizzy and felt like he is going to pass out for approximately 2 minutes. He never actually lost consciousness per the patient's . She describes it as him being transiently confused. He had quick return to baseline. Denies any shaking, tongue biting, bowel or bladder incontinence. Denies any headache, chest pain, abdominal pain. Denies any family personal history of connective tissue disorders. Denies any risk factors for PE. Denies any chest pain or palpitations prior to this event. Denies any focal weakness or numbness at this time. REVIEW OF SYSTEMS: Pertinent positives: Transient decreased consciousness Pertinent negatives: palpitations, abdominal pain, Headache, chest pain, neck sickness, fever, cough, PHYSICAL EXAM: Nursing triage notes reviewed, Vital signs reviewed Constitutional: please see mdm HENT: MMM Eyes: Pupils equal round and reactive to light, Extraocular muscles intact Neck: No stridor, no JVD, full neck ROM Lungs: Clear to auscultation, No wheezing or rales. No increased work of breathing, no conversational dyspnea, no accessory muscle use, no nasal flaring. No respiratory distress noted Heart: Regular rate and rhythm, No murmurs, No rubs and No gallops, 2+ distal pulses (radial, femoral, posterior tibial) in all extremities Abdomen: Soft, there is no tenderness, rigidity, rebound or guarding, no obvious peritoneal signs, no palpable pulsatile abdominal masses, no auscultated abdominal bruit : No CVAT Extremities: No edema Neuro: Alert and oriented x3, neuro exam at baseline, cranial nerves II through XII are intact. No pain with extraocular muscle movement. There is negative test of skew. 5 of 5 strength in upper and lower extremities in flexion extension. Intact sensation to light touch in upper and lower extremity dermatomes. No truncal or extremity ataxia. No dysdiadochokinesia. Normal gait. 2+ reflexes in upper and lower extremities. No meningeal signs. Negative Babinski. NIH of 0. Skin: No rash or lesions noted MEDICAL DECISION MAKING: Chief Complaint: Syncope External records reviewed: Recent hospitalization for blocked Worthy catheter. Recent CBC with anemia noted hemoglobin on 02/19/2023 was 8.3, hemoglobin 03/01/2023 was 9.4 Factors affecting care: Hypertension Social determinants of health: none History obtained from others: The patient's Consults: none [facility] Narrative: Patient was hemodynamically stable, afebrile, nontoxic-appearing. Exam without focal neurologic deficits. No focal cardiopulmonary abnormalities. Patient's history is not consistent with seizure but more extensive near syncope. I considered the following differential diagnosis: Arrhythmia, anemia, electrolyte abnormality, CHF, intracranial abnormality such as ICH or mass, ALL IMAGES (IF OBTAINED) HAVE BEEN PERSONALLY REVIEWED AND INTERPRETED BY MYSELF. EKG with normal sinus rhythm, prolonged HI interval, first-degree AV block, normal axis, no STEMI Troponin is negative, no evidence of myocardial ischemia BNP within normal limits BMP with hyponatremia, baseline CKD, no anion gap to suggest endorgan hypoperfusion, CBC with no leukocytosis to suggest systemic inflammation, stable anemia, no thrombocytopenia noted I have personally reviewed the patient's chest x-ray. Chest x-ray is unremarkable for pulmonary edema, pneumothorax, pneumonia or focal cardiopulmonary abnormality. CT scan of the brain shows no acute abnormality does show chronic lacunar infarcts. Incidental finding was discussed with the patient The amalgamation the patient's labs images did not show evidence of arrhythmia, myocardial ischemia, evidence of heart failure. No signs of significant electrolyte disturbance or dehydration. Patient was given opportunity to spontaneously void here in the emergency department. Over approximately 5-hour observation stay he was able to void spontaneously. A Worthy catheter was placed in the lateral 700 cc of mostly bloody urine at first this soon clear to clear urine. Given the clearing of his urine spontaneously do not feel the patient needs to be admitted or have emergent urologic consultation. He is certainly appropriate to go home. He was given strict return precautions and follow-up instructions I suspect the etiology of his complaint was vasovagal near syncope given he was having his Worthy manipulated then felt lightheaded and nearly passed out. There is no focal neurologic deficits on my exam. Incidental finding of lacunar infarct were discussed with the patient. Given urethral manipulation will give a short course of Keflex for antimicrobial prophylaxis. The patient and/or family, caregivers express understanding. The patient and/or family, caregivers agrees with the plan. Shared decision making: I will have a discussion with the patient and or visitors regarding risk/benefits of further testing or admission. They will be made aware of of the risk/benefits inherent in this decision they will be given the opportunity to voice understanding. Total critical care time today provided was at least 0 minutes. This excludes separately billable procedures. Critical care time (if documented) is secondary to the patient having high probability of clinically significant/life threatening deterioration in the patient's condition which required my urgent intervention. Impression: 1. Near syncope 2. Anemia 3. CKD 4. History of CVA 5. Urinary retention Dispo: Discharge Lab Data Labs: Laboratory Results - last 24 hr 03/01/23 03/01/23 15:47 17:58 WBC 9.3 RBC 3.04 L Hgb 8.9 L Hct 27.1 L MCV 89.1 MCH 29.3 MCHC 32.8 RDW Std Deviation 41.0 RDW Coeff of Jerry 12.6 Plt Count 414 MPV 10.0 Immature Gran % (Auto) 0.900 Neut % (Auto) 81.6 H Lymph % (Auto) 8.0 L [place] % (Auto) 6.9 Eos % (Auto) 2.2 Baso % (Auto) 0.4 Absolute Neuts (auto) 7.6 Absolute Lymphs (auto) 0.74 L Nucleated RBC % 0 Sodium 135 L Potassium 4.3 Chloride 106 Carbon Dioxide 23.0 Anion Gap 6 BUN 27 H Creatinine 1.48 H Estim Creat Clear Calc 43.13 Est GFR (MDRD) Af Amer 60 Est GFR (MDRD) Non-Af 49 L BUN/Creatinine Ratio 18.2 Glucose 121 H Calcium 8.3 L Troponin I High Sens 14 13 B-Natriuretic Peptide 23.5 Radiography Diagnostic Testing: Clinical Impression(s) from Imaging Studies Chest X-Ray 03/01/23 15:20 IMPRESSION: No acute abnormality is seen. Electronically Signed: Samy Natarajan MD at 15:42 EDT , Brain CT 03/01/23 15:42 IMPRESSION: Chronic involutional changes of the brain. There are bilateral lacunar infarcts worse on the left. No acute abnormality. Electronically Signed: Matheus Jean MD at 16:25 EDT , Discharge Plan Triage Chief Complaint: Syncope ED Provider: Mannie Chandler Dx/Rx/DC Orders Prescriptions: No Action terazosin 5 MG capsule 5 mg PO DAILY amlodipine 10 MG tablet 10 mg PO DAILY lisinopril 40 MG tablet 40 mg PO BID gabapentin 100 mg capsule 100 mg PO Q8H Patient Comments: take 1 capsule by mouth every 8 hours ciprofloxacin HCl [Cipro] 500 mg tablet 500 mg PO BID Qty: 14 0RF Primary Care Provider: Eduardo Han Referrals: Eduardo Han MD [Primary Care Provider] -
--- NOTE | 2023-03-01 15:20 | RAD_ITS ---
STUDY: X-RAY CHEST REASON FOR EXAM: Male, 77 years old. Chest pain TECHNIQUE: Single AP portable view of the chest. COMPARISON: None. FINDINGS: EKG electrodes are seen. The lungs are clear and expanded. There is no demonstrated pleural abnormality. Normal size heart. Normal mediastinum and [place]. Normal visualized pulmonary arteries. There is atherosclerotic tortuosity of the aortic arch and descending thoracic aorta. There are degenerative changes of the visualized thoracic spine. Normal visualized ribs, clavicles, and shoulders. There is no demonstrated abnormality of the visualized soft tissue structures of the upper abdomen. RAD/Chest 1 View (Portable) IMPRESSION: No acute abnormality is seen. Electronically Signed: Samy Natarajan MD at 15:42 EDT ,
[2023-03-01] MEDS: 0.9% Normal Saline (1000mL) 1,000 ML 500 ML IV (15:41)
--- NOTE | 2023-03-01 15:42 | CT_ITS ---
STUDY: CT BRAIN WITHOUT CONTRAST REASON FOR EXAM: Male, 77 years old. transient change in awareness RADIATION DOSAGE (If Supplied By Facility): CTDIvol = ( 44.99 ) mGy, DLP = ( 779.24 ) mGycm TECHNIQUE: Transaxial CT imaging of the brain was performed without administration of intravenous contrast material. Individualized dose optimization techniques were used for this CT. COMPARISON: No relevant priors. FINDINGS: Normal soft tissue structures. Normal calvarium. Normal size ventricles and extra-axial spaces for the patient''s age. There are areas of decreased attenuation within the white matter tracts of the supratentorial brain, consistent with microvascular disease changes. There are bilateral lacunar infarcts of the basal ganglia and thalami. Normal brainstem. Normal cerebellum. There is no intracranial hemorrhage. There are no findings of an acute ischemic infarction. Normal visualized paranasal sinuses. CT/Brain/Head without Contrast IMPRESSION: Chronic involutional changes of the brain. There are bilateral lacunar infarcts worse on the left. No acute abnormality. Electronically Signed: Matheus Jean MD at 16:25 EDT ,
[2023-03-01 15:53] LABS: Absolute Lymphocyte Count 0.74 X10^3/uL (0.83-4.51); Absolute Neutrophil Count 7.6 X10^3/uL (2.0-7.7); Basophil# 0.04 X10^3/uL; Basophil% 0.4 % (0-1); Eosinophils% 2.2 % (0-5); Hematocrit 27.1 % (40-54); Hemoglobin 8.9 g/dL (13.0-16.5); Lymphocyte # 0.74 X10^3/ul (0.83-4.51); Mean Corp Hgb Conc 32.8 g/dL (32-36); Mean Corpuscular Hgb 29.3 pg (27.0-32.0); Mean Corpuscular Volume 89.1 fL (80-94); Monocyte# 0.64 X10^3/uL; Monocyte% 6.9 % (0-10); NRBC Flagged by Analyzer 0 % (0-5); Neutrophil # 7.55 X10^3/uL (2.7-7.7); Neutrophil % 81.6 % (47-70); Platelet Count 414 K/mm3 (150-450); RBC Distribution Width CV 12.6 % (11.6-14.6); Red Blood Count 3.04 M/mm3 (4.6-6.2); White Blood Count 9.3 K/mm3 (4.4-11.0)
[2023-03-01 16:14] LABS: Anion Gap 6 (5-15); BUN 27 mg/dL (7-18); BUN/Creat Ratio 18.2 RATIO (10-20); Calcium,Total 8.3 mg/dL (8.5-10.1); Chloride 106 mmol/L (98-107); Creatinine, Serum 1.48 mg/dL (0.70-1.30); EST Glomerular Filtration Rate 49 mL/min (>60); Est Glom Filt Rate - Afr Amer 60 mL/min (>60); Estimated Creatinine Clearance 43.13 ml/min; Glucose 121 mg/dL (74-106); Potassium 4.3 mmol/L (3.5-5.1); Sodium Level 135 mmol/L (136-145); Troponin-I HS (w/2H Reflex) 14 pg/mL (3.0-78.0)
[2023-03-01 16:16] LABS: BNP,B-Type NATRIURETIC PEPTIDE 23.5 pg/mL (0-100)
[2023-03-01 16:54] VITALS: PULSE 78; RESP 16; O2SAT 96
[2023-03-01] MEDS: 0.9% Normal Saline (500mL Bag) 500 ML 999 ML IV (17:45)
[2023-03-01 17:49] LABS: Reflex Troponin-HS? (from REC) Y
[2023-03-01 18:00] VITALS: PULSE 86; RESP 22; O2SAT 97
[2023-03-01 18:37] LABS: Troponin-I HS 13 pg/mL (3.0-78.0)
[2023-03-01 20:10] VITALS: RESP 18
== END 2023-03-01 20:12 | disposition home or self-care (01) ==
PROVIDERS: Emergency Provider Emergency Medicine; PCP Family Medicine; Visit Provider Emergency Medicine
DX: R55 Syncope and collapse (principal); C61 Malignant neoplasm of prostate; D64.9 Anemia, unspecified; E87.1 Hypo-osmolality and hyponatremia; Z86.73 Personal history of transient ischemic attack (TIA), and cerebral infarction without residual deficits; N18.9 Chronic kidney disease, unspecified; R33.9 Retention of urine, unspecified; Z79.899 Other long term (current) drug therapy; I10 Essential (primary) hypertension
CPT/HCPCS: 36415; 51702; 70450; 71045; 80048; 80053; 80061; 82728; 83540; 83550; 83880; 84484; 85025; 85045; 93005; 96360; 96361; 99285; J7040; A4216

== ENCOUNTER → 2023-03-01 | Outpatient (CLI) | payer MEDICARE, OTHER, SELFPAY ==
[2023-03-01 14:10] LABS: Absolute Lymphocyte Count 1.08 X10^3/uL (0.83-4.51); Absolute Neutrophil Count 6.7 X10^3/uL (2.0-7.7); Basophil# 0.05 X10^3/uL; Basophil% 0.6 % (0-1); Eosinophil# 0.28 X10^3/uL; Eosinophils% 3.2 % (0-5); Hematocrit 29.1 % (40-54); Hemoglobin 9.4 g/dL (13.0-16.5); Lymphocyte # 1.08 X10^3/ul (0.83-4.51); Lymphocyte % 12.2 % (19-41); Mean Corp Hgb Conc 32.3 g/dL (32-36); Mean Corpuscular Hgb 29.4 pg (27.0-32.0); Mean Corpuscular Volume 90.9 fL (80-94); Monocyte# 0.66 X10^3/uL; Monocyte% 7.5 % (0-10); NRBC Flagged by Analyzer 0 % (0-5); Neutrophil # 6.71 X10^3/uL (2.7-7.7); Neutrophil % 75.8 % (47-70); Platelet Count 442 K/mm3 (150-450); RBC Distribution Width CV 12.7 % (11.6-14.6); RBC Distribution Width SD 42.4 fl (35.1-43.9); RET-HE 28.5 pg (30-35); Reticulocyte Count 2.08 % (0.5-1.5); White Blood Count 8.8 K/mm3 (4.4-11.0)
[2023-03-01 14:58] LABS: ALB/GLOB Ratio 0.7 RATIO (0.9-2.4); AST(SGOT) 17 U/L (15-37); Alanine Aminotransfer ALT/SGPT 24 U/L (16-61); Alkaline Phosphatase 85 U/L (45-117); Anion Gap 7 (5-15); BUN 26 mg/dL (7-18); BUN/Creat Ratio 18.4 RATIO (10-20); Calcium,Total 8.6 mg/dL (8.5-10.1); Chloride 107 mmol/L (98-107); Cholesterol 127 mg/dL (200); Creatinine, Serum 1.41 mg/dL (0.70-1.30); EST Glomerular Filtration Rate 52 mL/min (>60); Est Glom Filt Rate - Afr Amer 63 mL/min (>60); Ferritin 148 ng/mL (26-388); Globulin 4.5 g/dL (2.2-4.2); Glucose 120 mg/dL (74-106); High Density Lipoprotein 38 mg/dL; Iron 21 ug/dL (65-175); Iron Binding Capacity,Total 266 ug/dL (250-450); Potassium 4.3 mmol/L (3.5-5.1); Protein, Total 7.5 g/dL (6.4-8.2); Sodium Level 138 mmol/L (136-145); Triglycerides 104 mg/dL; Very Low Density Lipoprotein 21 mg/dL (5-40)
== END | disposition home or self-care (01) ==
LOC: LAB 13:28
PROVIDERS: PCP Family Medicine; Referring Provider Family Medicine; Visit Provider Family Medicine
DX: Z00.00 Encounter for general adult medical examination without abnormal findings (principal); D64.9 Anemia, unspecified; R60.0 Localized edema; I10 Essential (primary) hypertension
CPT/HCPCS: 36415; 80053; 80061; 82728; 83540; 83550; 85025; 85045

== ENCOUNTER → 2023-04-04 | Outpatient (CLI) | payer MEDICARE, OTHER, SELFPAY ==
[2023-04-04 09:57] LABS: Absolute Lymphocyte Count 0.71 X10^3/uL (0.83-4.51); Absolute Neutrophil Count 4.9 X10^3/uL (2.0-7.7); Basophil# 0.04 X10^3/uL; Basophil% 0.6 % (0-1); Eosinophil# 0.34 X10^3/uL; Eosinophils% 5.2 % (0-5); Hematocrit 36.1 % (40-54); Hemoglobin 11.1 g/dL (13.0-16.5); Lymphocyte # 0.71 X10^3/ul (0.83-4.51); Lymphocyte % 10.8 % (19-41); Mean Corp Hgb Conc 30.7 g/dL (32-36); Mean Corpuscular Hgb 28.6 pg (27.0-32.0); Mean Platelet Vol. 10.9 fl (6.2-12.0); Monocyte# 0.62 X10^3/uL; Monocyte% 9.4 % (0-10); NRBC Flagged by Analyzer 0 % (0-5); Neutrophil # 4.85 X10^3/uL (2.7-7.7); Neutrophil % 73.4 % (47-70); Platelet Count 273 K/mm3 (150-450); RBC Distribution Width CV 14.7 % (11.6-14.6); RBC Distribution Width SD 49.9 fl (35.1-43.9); Red Blood Count 3.88 M/mm3 (4.6-6.2); White Blood Count 6.6 K/mm3 (4.4-11.0)
[2023-04-04 10:31] LABS: Anion Gap 4 (5-15); BUN 23 mg/dL (7-18); BUN/Creat Ratio 18.4 RATIO (10-20); Calcium,Total 8.8 mg/dL (8.5-10.1); Chloride 108 mmol/L (98-107); Creatinine, Serum 1.25 mg/dL (0.70-1.30); EST Glomerular Filtration Rate 60 mL/min (>60); Est Glom Filt Rate - Afr Amer 72 mL/min (>60); Ferritin 60 ng/mL (26-388); Glucose 159 mg/dL (74-106); Iron 86 ug/dL (65-175); Potassium 4.4 mmol/L (3.5-5.1); Sodium Level 135 mmol/L (136-145)
== END | disposition home or self-care (01) ==
LOC: LAB 08:25
PROVIDERS: PCP Family Medicine; Referring Provider Family Medicine; Visit Provider Family Medicine
DX: D64.9 Anemia, unspecified (principal)
CPT/HCPCS: 36415; 80048; 82728; 83540; 85025

== ENCOUNTER → 2023-06-27 | Outpatient (CLI) | payer MEDICARE, OTHER, SELFPAY ==
--- OUTSIDE RECORDS SUMMARY | 2023-06-27 09:15 | XMS RPT_ITS | CCD ---
Author Name Unknown Address [address] [place] [address] Organization [facility] Care Team Providers Care Drier Helper Name Role Phone Carlos HOOK MD, Daesung Unavailable Kelvin Linder MD Primary Care Provider KELVIN LINDER Primary Care Unavailabl e Allergies Allergy Classification Reported Allergen(s) Allergy Type Date of Onset Reaction(s) Facility (2 sources) Atenolol; Translations: [ATENOLOL] Drug Allergy 5 [facility] (2 sources) hydroCHLOROthiazi de; Translations: [HYDROCHLOROTHIAZ BEVERLEY] Drug Allergy 5 [facility] (2 sources) Indomethacin; Translations: [INDOMETHACIN SODIUM] Drug Allergy 3 GI U[address] [facility] (2 sources) Losartan; Translations: [LOSARTAN POTASSIUM] Drug Allergy 5 [facility] (2 sources) Sulfonamides (Antibiotic); Translations: [SULFA (SULFONAMIDE ANTIBIOTICS)] Propensity to adverse reactions 5 [facility] Work Phone: Medications Completed/Discontinued Medications Medication Drug Class(es) Dates Sig (Normalized) Sig (Original) amLODIPine 10 mg oral tablet (1 source) Dihydropyridine Calcium Channel Carlita Start: 03-03-2017 take 1 tablet by mouth once daily amLODIPine (NORVASC) 10 mg tablet Take 1 tablet by mouth once daily. 90 tablet 0 03/03/2017 Active Problems Active Problems Problem Classification Problem Date Documented Date Episodic/Chronic Cancer of prostate (1 source) Malignant tumor of prostate; Translations: [Malignant neoplasm of prostate] Onset: 07-06-2011 07-06-2011 Chronic Diverticulosis and diverticulitis (1 source) Diverticulosis of colon; Translations: [Diverticulosis of large intestine without perforation or abscess without bleeding] 10-03-2006 Chronic Essential hypertension (1 source) Benign essential hypertension; Translations: [Essential (primary) hypertension] 06-01-2021 Chronic Genitourinary symptoms and ill-defined conditions (1 source) Catalino hematuria; Translations: [Gross hematuria] Onset: 02-07-2023 02-07-2023 Episodic Hemorrhoids (1 source) Internal hemorrhoids; Translations: [Other hemorrhoids] 10-03-2006 Episodic Osteoarthritis (1 source) Osteoarthritis; Translations: [Unspecified osteoarthritis, unspecified site] 12-22-2004 Chronic Other and unspecified benign neoplasm (1 source) Benign neoplasm of colon; Translations: [Benign neoplasm of colon, unspecified] 10-03-2006 Episodic Other inflammatory condition of skin (1 source) Rosacea; Translations: [Rosacea, unspecified] Onset: 05-19-2009 05-19-2009 Chronic Past or Other Problems Problem Classification Problem Date Documented Da te Episodic/Chronic Allergic reactions (1 source) Radiation-induced dermatosis; Translations: [Other skin changes due to chronic exposure to nonionizing radiation] Onset: 10-29-2008 10-29-2008 Episodic Other and unspecified benign neoplasm (1 source) Melanocytic nevus of trunk; Translations: [Melanocytic nevi of trunk] Onset: 05-19-2009 05-19-2009 Episodic Other circulatory disease (1 source) Spider nevus; Translations: [Nevus, non-neoplastic] Onset: 05-19-2009 05-19-2009 Episodic Other nutritional; endocrine; and metabolic disorders (1 source) Overweight; Translations: [Overweight] Onset: 02-26-2006 02-26-2006 Episodic Other screening for suspected conditions (not mental disorders or infectious disease) (1 source) Patient encounter status; Translations: [Encounter for screening for malignant neoplasm of colon] Onset: 11-21-2015 11-21-2015 Episodic Other skin disorders (1 source) Seborrheic keratosis; Translations: [Other seborrheic keratosis] Onset: 10-29-2008 10-29-2008 Episodic Other skin disorders (1 source) Actinic keratosis; Translations: [Actinic keratosis] Onset: 05-19-2009 05-19-2009 Episodic Other skin disorders (1 source) Solar lentigo; Translations: [Other melanin hyperpigmentation] Onset: 05-19-2009 05-19-2009 Episodic Results Test Name Value Interpretation Reference Range Facil ity Encounters Encounter Date Encounter Type Care Provider Facility Start: 02-18-2023 Telephone encounter Eduardo Linder MD Work Phone: NOC Procedures Date Procedure Procedure Detail Performing Clinician Start: 11-21-2015 Colonoscopy Eduardo Linder MD Work Phone: Start: 09-11-2015 Lipid 1996 panel - S zev or Plasma Kelvin Linder MD Work Phone: Plan of Treatment Date Care Activity Detail Author Start: 02-12-2026 Diabetes Screening Diabetes Screenin g [facility] Start: 11-20-2025 Colonoscopy Colonoscopy [facility] Start: 11-20-2025 Colorectal Cancer Screening Colorectal Cancer Screening [facility] Start: 02-04-2023 Influenza vaccination Influenza Vacc ine (#1) [facility] Start: 10-26-2022 Urine microalbumin profile DTa P,Tdap,Td Vaccine (3 - Td or Tdap) [facility] Start: 07-07-2022 Covid-19 Vaccine (6 - Moderna series) Covid-19 Vaccine (6 - Moderna series) [facility] Start: 06-06-2022 Advance Directive Discussion Advance Directive Discussion [facility] Start: 06-06-2022 Depression Assessment Depression Ass essment [facility] Start: 09-10-2020 Lipid 1996 panel - S zev or Plasma Lipid Screening [facility] Start: 12-21-2012 Shingrix Vaccine (2 of 3) Shingrix V accine (2 of 3) [facility] Start: 11-10-1992 Cologuard (FIT-DNA) Cologuard (FIT-D NA) [facility] Start: 11-10-[address] COLONOGRAPHY [facility] Start: 11-10-1992 Fecal Occult Blood Fecal Occult Bloo d 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 Start: 11-10-1965 BP Controlled (<130/80) BP Controlle d (<130/80) [facility] Start: 11-10-1965 Hepatitis C Screening Hepatitis C [facility] Immunizations Immunization Date Immunization Notes Care Provider Sushant cardoza 03-01-2022 influenza virus vaccine, unspecified formulation Kelvin Linder MD Work Phone: [facility] 02-27-2016 influenza, high dose seasonal, preservative-free Kelvin Linder MD Work Phone: [facility] Work Phone: 10-08-2015 pneumococcal conjuga te vaccine, 13 valent Kelvin Linder MD Work Phone: [facility] Work Phone: 03-04-2015 influenza virus vaccine, unspecified formulation Kelvin Linder MD Work Phone: [facility] 05-29-2014 influenza, seasonal, injectable Kelvin Linder MD Work Phone: [facility] 02-26-2014 pneumococcal polysaccharide vaccine, 23 valent Kelvin Linder MD Work Phone: [facility] 10-26-2012 tetanus toxoid, redu chasidy diphtheria toxoid, and acellular pertussis vaccine, adsorbed Kelvin Linder MD Work Phone: [facility] 10-26-2012 zoster vaccine, live Eduardo Linder MD Work Phone: [facility] 06-19-2012 influenza virus vaccine, unspecified formulation Kelvin Linder MD Work Phone: [facility] 06-06-2002 diphtheria and tetan us toxoids, adsorbed for pediatric use Kelvin Linder MD Work Phone: [facility] Work Phone: Payers Date Payer Category Payer Medicare MEDICARE MEDICAR E A AND B [id number] 2012-Present [phone] [place] [address] Medicare [id number] 2012 Medicare [id number] 2012 Unknown HOSPITAL/MEDICAL GENERIC MEDICAL GENERIC [id number] 2012-Present [phone] [address] [address] [place] [address] Gay [id number] 2012 Unknown [id number] Social History Date Type Detail Facility [facility]: [facility] Start: 07-23-2011 Tobacco use and exposure Smokeless tobacco non-user 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 Start: 02-08-2023 End: 02-11-2023 History of Social function [facility] Work Phone: Start: 02-08-2023 End: 02-11-2023 Tobacco use panel [facility] Work Phone: How hard is it for y ou to pay for the very basics like food, housing, medical care, and heating Not hard at all [facility] Work Phone: (I/We) worried wheth er (my/our) food would run out before (I/we) got money to buy more. Never true [facility] Work Phone: In the past 12 month s, was there a time when you were not able to pay the mortgage or rent on time? No [facility] Work Phone: Start: 1945 Sex Assigned At Not on file C [facility] Clinical Notes 07-06-2011 to 02-12-2023 Note Date & Type Note Facility 02-12-2023 Note HNO ID: [id number] Author: Lauren Lubin RN Service: Care Management Author Type: Registered Nurse Type: Care Mgt Progress Note Filed: 02/12/2023 11:08 AM Note Text: CARE MANAGEMENT PROGRESS NOTE SERVICE DATE: 02/12/2023 SERVICE TIME: 11:07 AM LOS: 4 days IMM Follow Up Copy Given: Yes Copy given to:: Patient Method: By Phone Expressed understanding. SIGNATURE: Lauren Lubin RN PATIENT NAME: Barbara Milan DATE: February 12, 2023 TIME: 11:07 AM PAGER/CONTACT #: [phone] [facility] 02-12-2023 Note HNO ID: [id number] Author: Lauren Lubin RN Service: Care Management Author Type: Registered Nurse Type: Care Mgt Progress Note Filed: 02/12/2023 11:06 AM Note Text: CARE MANAGEMENT DISCHARGE NOTE SERVICE DATE: 02/12/2023 SERVICE TIME: 11:05 AM LOS: 4 days Caregiver is ready, willing and able to meet the patient's needs as recommended by the inter-professional team: Yes Name of Caregiver: Kate Duarte [facility] for PT Transportation Arrangements: Car Date of Trip: 02/12/23 Destination: Home Patient is being discharged to home. Home care orders were sent. Kate Duarte is made aware of discharge today. SIGNATURE: Lauren Lubin RN PATIENT NAME: Barbara Milan DATE: February 12, 2023 TIME: 11:05 AM PAGER/CONTACT #: [phone] [facility] 02-12-2023 Note HNO ID: [id number] Author: Mayra Carrasquillo MD Service: Urology Author Type: Resident Type: Progress Notes Filed: 02/12/2023 7:51 AM Note Text: -- Attestation signed by Rio Pardo MD at 02/12/2023 2:57 PM I performed a history and physical examination of the patient and discussed the management with the resident. I reviewed the resident's note and agree with the documented findings and plan of care. OP follow up scheduled with his Urologist in [place]. DC with [facility]. Rio Pardo MD -- UROLOGY PROGRESS NOTE PATIENT NAME: Barbara Milan DATE OF : 1945 ADMISSION DATE: 02/07/2023 6:05 PM Subjective Patient doing well overnight with no complaints. Vital signs stable. S/p clot evacuation and fulguration of bleeding with cystogram and bladder biopsy yesterday. Denies fevers, chills, nausea, vomiting, dizziness, lightheadedness. Worthy in place draining clear, light red urine without clots. Objective VS: BP 112/65 Pulse 83 Temp 37.6 ?C (99.7 ?F) (Oral) Resp 17 Ht 177.8 cm (5' 10 ) Wt 88.5 kg (195 lb) SpO2 93% BMI 27.98 kg/m? I AND O - 24hr: Intake/Output Summary (Last 24 hours) at 02/12/2023448 Last data filed at 02/11/20231944 Gross per 24 hour Intake 2940 ml Output 7100 ml Net -4160 ml Physical Exam: General: Neck: Resp: Abdomen: No acute distress Supple Normal effort Soft, nontender, nondistended. : Worthy catheter draining clear, light red urine without clots. No flank tenderness bilaterally. Labs and Imaging Studies LABS: BMP: Recent Labs 02/11/2331602/10/23 0514 NA 133* 134* K 3.9 4.0 CHLOR 103 104 CO2 21* 21* BUN 22 20 CREAT 1.30* 1.23* GLUC 108* 112* CBC: Recent Labs 02/11/2331602/10/23 0514 WBC 7.34 8.99 HB 9.3* 9.7* HCT 27.3* 28.8* PLT 211 203 Urinalysis: Specific [place], Ur Date Value Ref Range Status 02/23/2012 1.010 1.005 - 1.030 Final Glucose, Urine Date Value Ref Range Status 02/23/2012 neg Neg mg/dL Final Bilirubin, Urine Date Value Ref Range Status 02/23/2012 neg Neg Final Ketones, Urine Date Value Ref Range Status 02/23/2012 neg Neg Final Hemoglobin/Blood,Ur Date Value Ref Range Status 02/23/2012 neg Neg Final Protein, Urine Date Value Ref Range Status 02/23/2012 neg Neg mg/dL Final Urobilinogen, Urine Date Value Ref Range Status 02/23/2012 0.2 Normal (<1.1) EU Final Nitrites Date Value Ref Range Status 02/23/2012 neg Neg Final Leukocytes Date Value Ref Range Status 02/23/2012 neg Neg Final Urine Culture: No results found for: URCUL RADIOLOGY: US DVT lower BL 02/09/2023: Negative study for proximal DVT in the left and right lower extremities. Negative study for calf DVT in the left and right lower extremities. Negative study for superficial thrombophlebitis in the imaged segments of the left and right lower extremities. 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 PLAN: -maintain Worthy catheter -okay to resume Aspirin 81mg -PT consulted regarding LE pain; recommended home PT -hgb 9.3, stable from yesterday -plan for outpatient hyperbaric oxygen therapy in [place] if hematuria persists -Anticipate discharge home today Shari Valera, MS-4 Agree with medical student assessment and plan as above. Any additions noted in blue and any changes noted with . 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 Limited cellularity and crush artifact precludes further evaluation. [facility] documented as of this encounter (statuses as of 02/18/2023) [facility] Advance Directives No Advanced Directives Records FoundDocuments on File Type Date Recorded Patient Client Delivery Manager Expl anation Advance Directive(s) 08/24/2011 9:03 PM Summary Purpose Family History No Family History Records FoundNo Family History Records Found Additional Source Comments Source Comments (unrecognize d section and content) In the event this informatio n is protected by the Federal Confidentiality of Alcohol and Drug Abuse Patient Records regulations: The Federal rules restrict any use of the information to criminally investigate or prosecute any alcohol or drug abuse patient.[facility] Reason for Visit (unrecogniz ed section and content) Care Teams (unrecognized sec tion and content) (unrecognized sect ion and content) No Status Records FoundNo Status Records Found INFORMATION SOURCE (unrecogn ized section and content) DATE CREATED AUTHOR AUTHOR'S ORGANIZ ATION 02/21/2023 [facility] FOR RECORDS PERTAINING TO PATIENTS WHO ARE OR HAVE BEEN ENROLLED IN A CHEMICAL DEPENDENCY/SUBSTANCEABUSE PROGRAM, SOME INFORMATION MAY BE OMITTED. This clinical summary was aggregated from multiple sources. Caution should be exercised in using it in the provision of clinical care. This summary normalizes information from multiple sources, and as a consequence, information in this document may materially change the coding, format and clinical context of patient data. In addition, data may be omitted in some cases. CLINICAL DECISIONS SHOULD BE BASED ON THE PRIMARY CLINICAL RECORDS. [facility]. provides no warranty or guarantee of the accuracy or completeness of information in this document.
[2023-06-27 09:51] LABS: PSA,Total- Diagnostic < 0.01 ng/mL (0.0-4.0)
== END | disposition home or self-care (01) ==
LOC: LAB 08:40
PROVIDERS: PCP Family Medicine; Referring Provider Urology; Visit Provider Urology
DX: C61 Malignant neoplasm of prostate (principal)
CPT/HCPCS: 36415; 84153

== ENCOUNTER 2023-10-15 03:26 | Emergency (ER) | payer MEDICARE, OTHER, SELFPAY ==
[2023-10-15 03:27] VITALS: BP 142/92; PULSE 87; RESP 17; TEMP 36; O2SAT 98; BMI 28.0
[2023-10-15 03:30] VITALS: BP 114/81; PULSE 89; RESP 16; TEMP 36; O2SAT 97
--- NOTE | 2023-10-15 03:40 | EX.ED.DYSGE1 ---
HPI History of Present Illness Chief Complaint: Complaint Informant: patient Narrative Narrative: Patient presents secondary to urinary retention. He presents at 3:30 AM and states he has not been able to urinate since at least 10 PM last evening. He feels full and as if he needs to urinate, but is unable to pass any urine. He has a history of prostate cancer and had a radical prostatectomy. He has had problems with urinary retention in the past, typically secondary to bleeding and clots, but states he has not had any recent bleeding or urinary symptoms. He denies taking any [id number] medications such as Benadryl last evening. [facility] Medical History Blood in urine Prostate cancer Home Medications amlodipine 10 mg tablet 10 mg PO DAILY 12/08/18 [History Last Taken 02/14/23] lisinopril 40 mg tablet 40 mg PO BID 12/08/18 [History Last Taken 02/14/23] terazosin 5 mg capsule 5 mg PO DAILY 12/08/18 [History Last Taken Unknown] gabapentin 100 mg capsule 100 mg PO Q8H 02/19/23 [History Last Taken Unknown] ciprofloxacin HCl 500 mg tablet (Cipro) 500 mg PO BID #14 tabs 02/20/23 [Rx Last Taken Unknown] cephalexin 500 mg capsule 500 mg PO Q8H 5 days #15 caps 03/01/23 [Rx Last Taken Unknown] Allergy/AdvReac Type Severity Reaction Status Date / Time losartan Allergy Mild Rash Verified 03/01/23 14:39 Sulfa (Sulfonamide Allergy Hives Verified 03/01/23 14:39 Antibiotics) atenolol AdvReac Mild WEAKNESS Verified 03/01/23 14:39 hydrochlorothiazide AdvReac Mild UNKNOWN Verified 03/01/23 14:39 indomethacin [From Indocin] AdvReac Mild GI upset Verified 03/01/23 14:39 Social History household members: spouse housing: house Smoking Status: Never smoker ROS ROS ED Constitutional Constitutional ED: Denies chills or fever(s) ENT ENT ED: Denies rhinorrhea or sore throat Cardiovascular Cardiovascular: Denies chest pain Respiratory/Chest Respiratory/Chest: Denies cough or dyspnea Gastrointestinal Gastrointestinal: Reports abdominal pain; Denies diarrhea, nausea or vomiting Genitourinary Genitourinary ED: Reports difficulty urinating Musculoskeletal Musculoskeletal: Denies back pain or extremity pain Integumentary Denies Abrasions or rash Neurologic Neurologic: Denies headache(s) or weakness Allergic/Immunologic Allergic/Immunologic ED: Denies lip swelling or urticaria EXAM Physical Exam Const Vital Signs: 10/15/23 03:27 10/15/23 03:30 10/15/23 04:54 Temperature 96.8 F L 96.8 F L 98.1 F Temperature Source Temporal Temporal Temporal Pulse Rate 87 89 67 Respiratory Rate 17 16 16 Blood Pressure 142/92 H 114/81 H 118/80 Blood Pressure Mean 108 92 92 Pulse Ox 98 97 97 Oxygen Delivery Method Room Air Room Air Room Air Positive well nourished and well developed General Appearance ED: well developed HEENT Reports moist mucous membranes Eyes EOMs intact bilaterally Chest Wall inspection of chest normal and palpation of chest normal Resp normal respiratory effort and clear to auscultation bilaterally Cardio regular rate and regular rhythm GI GI Narrative: Abdomen soft no suprapubic tenderness. No guarding or rebound. Extremity normal to inspection Neuro oriented x3 and no sensory deficits noted Motor Exam: strength 5/5 throughout Psych mental status grossly normal Skin no rashes or lesions noted MDM MDM MDM Narrative Medical decision making narrative: Worthy catheter ordered along with a UAC. Treatment and Re-Evaluation :: Nursing staff had difficulty placing a catheter. We tried multiple sizes including coud? without success. I called Dr. Gilliland who presented to the bedside. He was able to pass a guidewire and dilate the urethra. He reports bladder neck spasms and scarring. Worthy catheter is in place and is drained approximately 300 cc of urine. Plan will be discharged to home with Worthy catheter in place for the next 2 weeks. I will check urinalysis prior to discharge to ensure no evidence of infection. Urine appears clear. Discharge Plan Triage Chief Complaint: Complaint ED Provider: Columba Decker Dx/Rx/DC Orders Clinical Impression: Urinary retention Instructions: ED Worthy Catheter, Care, ED Urinary Retention, Male Prescriptions: No Action terazosin 5 MG capsule 5 mg PO DAILY amlodipine 10 MG tablet 10 mg PO DAILY lisinopril 40 MG tablet 40 mg PO BID cephalexin 500 mg capsule 500 mg PO Q8H 5 Days Qty: 15 0RF gabapentin 100 mg capsule 100 mg PO Q8H Patient Comments: take 1 capsule by mouth every 8 hours ciprofloxacin HCl [Cipro] 500 mg tablet 500 mg PO BID Qty: 14 0RF Primary Care Provider: Isaiah Han Referrals: Isaiah aHn MD [Primary Care Provider] - Zhao Gilliland MD [Med Staff - Active Staff] - 1-2 Weeks Disposition Disposition: Home, Self Care
[2023-10-15] MEDS: Lidocaine Jelly 2% 20 ML Syringe (URO-JET) 1 APPLIC TOPICAL (03:48)
[2023-10-15] MEDS: HYDROcodone Bitartrate/Apap 5/325 Tablet PO (04:23)
--- NOTE | 2023-10-15 04:48 | CON.PCM.UR_ITS ---
Assessment & Plan Assessment/Plan (1) Bladder neck contracture: PLAN: Patient has a bladder neck contracture plan to do a cystoscopy and dilation bladder neck contracture. HPI Consult Data Date of Consult: 10/15/23 HPI Narrative Reason for Consultation: Bladder neck contracture HPI Narrative: BARBARA PEÑA, is a 77 M who presents to the emergency room with difficulty with urination and just dribbling the last 2 days and it just got worse the last several hours. 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 Now I think is d eveloped a bladder neck contracture so at the bedside I am to do a cystoscopy dilation of bladder neck contracture. [facility] Medical History Blood in urine Prostate cancer Home Medications amlodipine 10 mg tablet 10 mg PO DAILY 12/08/18 [History Last Taken 02/14/23] lisinopril 40 mg tablet 40 mg PO BID 12/08/18 [History Last Taken 02/14/23] terazosin 5 mg capsule 5 mg PO DAILY 12/08/18 [History Last Taken Unknown] gabapentin 100 mg capsule 100 mg PO Q8H 02/19/23 [History Last Taken Unknown] ciprofloxacin HCl 500 mg tablet (Cipro) 500 mg PO BID #14 tabs 02/20/23 [Rx Last Taken Unknown] cephalexin 500 mg capsule 500 mg PO Q8H 5 days #15 caps 03/01/23 [Rx Last Taken Unknown] Allergy/AdvReac Type Severity Reaction Status Date / Time losartan Allergy Mild Rash Verified 03/01/23 14:39 Sulfa (Sulfonamide Allergy Hives Verified 03/01/23 14:39 Antibiotics) atenolol AdvReac Mild WEAKNESS Verified 03/01/23 14:39 hydrochlorothiazide AdvReac Mild UNKNOWN Verified 03/01/23 14:39 indomethacin [From Indocin] AdvReac Mild GI upset Verified 03/01/23 14:39 Social History household members: spouse housing: house Smoking Status: Never smoker Physical Exam Const alert and oriented x3 General Appearance: cooperative HEENT normocephalic and head/scalp atraumatic Eyes PERRL and EOMs intact bilaterally Neck supple, no JVD and no carotid bruits Resp normal respiratory effort, normal air movement and clear to auscultation bilaterally Cardio regular rate and no murmurs GI normal to inspection, nondistended, normoactive bowel sounds and soft to palpation Extremity normal capillary refill General Extremity: no tenderness to palpation of joints or extremities; Negative for edema Skin no rashes or lesions noted and no wounds General Skin Exam: no breakdown Neuro CN's II-XII intact bilaterally Psych affect normal Appearance: appropriate
--- NOTE | 2023-10-15 04:50 | PCM.OPRPT ---
Report of Operation Date of Procedure: 10/15/23 Pre-Operative Diagnosis: Bladder neck contracture Post-Operative Diagnosis: The same Surgery/Procedure Performed:: Dilation of bladder neck contracture Description of Surgical Findings:: Penis and testicles were prepped and draped in usual sterile fashion put a wire through the penis and then could feel the wire go past the bladder neck contracture of smoothly I attempted to dilate with a 12 Northern Irish dilator over the wire however this would not get past the bladder neck contracture you feel tight contracture dilator which was bent and would not go through pulled this pulled this back and then try to 14 Northern Irish dilator over the wire which is little bit larger and stiffer was able to then stretch the bladder neck contracture with this and then stretch from [address] to 18 I then used a 16 Northern Irish [place] tip catheter went over the wire and then it was able to advance the 16 [place] Irish catheters fairly tight but was able get through the bladder neck contracture with a 16 Northern Irish catheter and then drained clear yellow urine 10 cc was put in the balloon and then he will go home with a Worthy to catheter or leg bag and needs a follow-up in the office in 2 weeks for removal and voiding trial. Patient was warned that it is possible that even after this this contracture may scar back down again. Surgeon: Zhao Gilliland Type of Anesthesia: Local Admit VTE Documentation VTE Present on Admission: No VTE Mechan Device Prophylaxis: SCD's VTE Pharm Prophylaxis ordered?: No
[2023-10-15 04:54] VITALS: BP 118/80; PULSE 67; RESP 16; TEMP 36.7; O2SAT 97
[2023-10-15 05:03] LABS: Bacteria 0 SEEN /hpf (None Seen); Mucous, Urine 0 SEEN /hpf (<or=2+); Squamous Epithelial Cells - UA 0 SEEN /hpf (0-5); White Blood Cells 0 SEEN /hpf (0-5)
[2023-10-15 05:08] LABS: Color, Urine Yellow (Yellow); Glucose, Dipstick Normal (Normal); Ketone-Dipstick Negative (Negative); Leukocyte Esterase-Dipstick 25 /ul (Negative); Nitrite-Dipstick Negative (Negative); Occult Blood-Urine 250 /ul (Negative); Protein-Dipstick Negative (Negative); Specific Gravity, Urine 1.015 (1.002-1.030); Urine Bilirubin Dipstick Negative (Negative); Urine Clarity Clear (Clear); Urine Urobilinogen Normal (Normal)
[2023-10-15 05:26] VITALS: BP 118/56; PULSE 80; RESP 16; O2SAT 96
[2023-10-15 05:48] LABS: Red Blood Cells-Urine 10-25 SEEN /hpf (0-5)
[2023-10-15 06:17] VITALS: BP 112/68; PULSE 79; RESP 16; TEMP 36.7; O2SAT 99
== END 2023-10-15 06:18 | disposition home or self-care (01) ==
PROVIDERS: Emergency Provider Emergency Medicine; PCP Family Medicine; Visit Provider Emergency Medicine
DX: N32.0 Bladder-neck obstruction (principal); R33.9 Retention of urine, unspecified; N32.89 Other specified disorders of bladder; Z85.46 Personal history of malignant neoplasm of prostate; Z90.79 Acquired absence of other genital organ(s)
CPT/HCPCS: 53605; 51702; 81001; 99283; C1769

== ENCOUNTER → 2023-11-03 | Outpatient (CLI) | payer MEDICARE, OTHER, SELFPAY ==
[2023-11-03 13:02] LABS: Hematocrit 37.1 % (40-54); Hemoglobin 12.2 g/dL (13.0-16.5); Mean Corp Hgb Conc 32.9 g/dL (32-36); Mean Corpuscular Hgb 30.1 pg (27.0-32.0); Mean Corpuscular Volume 91.6 fL (80-94); Mean Platelet Vol. 10.7 fl (6.2-12.0); Platelet Count 299 K/mm3 (150-450); RBC Distribution Width CV 12.8 % (11.6-14.6); RBC Distribution Width SD 43.2 fl (35.1-43.9); Red Blood Count 4.05 M/mm3 (4.6-6.2); White Blood Count 7.1 K/mm3 (4.4-11.0)
[2023-11-03 13:23] LABS: ALB/GLOB Ratio 0.9 RATIO (0.9-2.4); AST(SGOT) 17 U/L (15-37); Alanine Aminotransfer ALT/SGPT 20 U/L (16-61); Albumin, Serum 3.5 g/dL (3.2-5.0); Alkaline Phosphatase 81 U/L (45-117); Anion Gap 5 (5-15); BUN 21 mg/dL (7-18); BUN/Creat Ratio 17.9 RATIO (10-20); Calcium,Total 9.1 mg/dL (8.5-10.1); Chloride 106 mmol/L (98-107); Creatinine, Serum 1.17 mg/dL (0.70-1.30); EST Glomerular Filtration Rate 64 mL/min (>60); Est Glom Filt Rate - Afr Amer 78 mL/min (>60); Globulin 4.1 g/dL (2.2-4.2); Glucose 98 mg/dL (74-106); Potassium 4.5 mmol/L (3.5-5.1); Protein, Total 7.6 g/dL (6.4-8.2); Sodium Level 135 mmol/L (136-145)
== END | disposition home or self-care (01) ==
LOC: MFPLAB 10:03
PROVIDERS: PCP Family Medicine; Visit Provider Family Medicine
DX: I10 Essential (primary) hypertension (principal); D64.9 Anemia, unspecified
CPT/HCPCS: 36415; 80053; 85027

== ENCOUNTER 2023-11-11 11:33 | Day surgery (SDC) | payer MEDICARE, OTHER, SELFPAY ==
[2023-11-11] VITALS (7 sets, daily range): BP systolic 107–141; BP diastolic 65–83; PULSE 69–101; RESP 14–18; TEMP 36.4–36.8; O2SAT 94–100; BMI 27.7
[2023-11-11] MEDS: Lactated Ringers 1,000 ML 15 ML IV ×2 (12:09→15:11)
[2023-11-11] MEDS: Cefazolin 2 GM in 0.9% Normal Saline (100mL Bag) 100 ML IV (14:20)
[2023-11-11] MEDS: Lactated Ringers 1,000 ML 100 ML IV (14:50)
--- NOTE | 2023-11-11 14:50 | PCM.HP.STD ---
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 and he is in retention of urine with a catheter [facility] Medical History (Updated 11/04/23 @ 09:30 by Kathleen Hernandez) Worthy catheter in place Wears glasses Cancer Arthritis Non-smoker History of pain when walking History of edema Hypertension Prostate cancer Blood in urine Home Medications ?Medication ?Instructions ?Recorded ?Last Taken ?Type amlodipine 10 mg tablet 10 mg PO DAILY 12/08/18 11/11/23 History lisinopril 40 mg tablet 40 mg PO BID 12/08/18 11/11/23 History terazosin 5 mg capsule 5 mg PO DAILY 12/08/18 11/10/23 History furosemide 20 mg tablet 20 mg PO DAILY 11/04/23 11/08/23 History multivit,Ca,min-iron 8 mg-folic 1 tab PO DAILY 11/04/23 11/11/23 History acid 200 mcg-lycopene 600 mcg tablet (A Thru Z Men's Ultimate) ciprofloxacin HCl 500 mg tablet 500 mg PO BID #10 tabs 11/11/23 Unknown Rx (Cipro) Allergy/AdvReac Type Severity Reaction Status Date / Time losartan Allergy Mild Rash Verified 11/11/23 12:02 Sulfa (Sulfonamide Allergy Hives Verified 11/11/23 12:02 Antibiotics) atenolol AdvReac Mild WEAKNESS Verified 11/11/23 12:02 hydrochlorothiazide AdvReac Mild UNKNOWN Verified 11/11/23 12:02 indomethacin (From Indocin) AdvReac Mild GI upset Verified 11/11/23 12:02 Surgical History (Updated 11/04/23 @ 09:23 by Kathleen Hernandez) History of left knee replacement Hx of radical prostatectomy Hx of cystoscopy Hx of colonoscopy Social History household members: spouse housing: house Smoking Status: Never smoker Vital Signs Vital Signs Vital Signs: 11/11/23 12:02 11/11/23 12:02 Temperature 97.5 F L Temperature Source Temporal Pulse Rate 86 Respiratory Rate 14 Respiratory Pattern Normal Blood Pressure 110/81 H Blood Pressure Mean 90 Blood Pressure Source Monitor Blood Pressure Position Semi-Fowlers Blood Pressure Location Left Arm Pulse Ox 95 Oxygen Delivery Method Room Air Weight Weight: 85.2 kg Body Mass Index (BMI) 27.7
--- NOTE | 2023-11-11 14:52 | PCM.DC ---
Discharge Instructions Diet Discharge Diet: No restrictions Activity Discharge Activity: Return to Normal Activity and May Not Drive (while taking narcotic pain medications.) Dressing / Incision Call your doctor if you observe: Fever of 101 or Higher Follow Up Care Please Follow Up With: Zhao Gilliland MD When: Call [phone] for an appointment Test Results: Test results from this visit will be discussed in further detail at your follow-up appointment, if applicable. Discharge Plan Admission Primary Reason for Your Visit: Contracture of the bladder neck Attending Provider: Zhao Gilliland Primary Care Provider: Isaiah Han Instructions Print Language: Moroccan Discharge Orders/Prescriptions Prescriptions: New ciprofloxacin HCl [Cipro] 500 mg tablet 500 mg PO BID Qty: 10 0RF Continued terazosin 5 MG capsule 5 mg PO DAILY amlodipine 10 MG tablet 10 mg PO DAILY lisinopril 40 MG tablet 40 mg PO BID furosemide 20 mg tablet 20 mg PO DAILY A Thru Z Men's Ultimate 8 mg iron- 200 mcg-600 mcg tablet 1 tab PO DAILY Referrals / Follow Up: Isaiah Han MD [Primary Care Provider] - Zhao Gilliland MD [Med Staff - Active Staff] - Disposition Disposition (needs filled in before D/C Order can be placed): Home, Self Care
--- NOTE | 2023-11-11 14:52 | PCM.OPRPT ---
Report of Operation Date of Procedure: 11/11/23 Pre-Operative Diagnosis: Bladder neck contracture Post-Operative Diagnosis: Same Surgery/Procedure Performed:: Transurethral incision of the bladder contracture with thulium laser Description of Surgical Findings:: Patient was taken back to the operating with induction of anesthesia he was placed in dorsolithotomy position. The penis and testicles were prepped and draped in usual sterile fashion went into the bladder with a 21 Sammarinese rigid cystourethroscope the entire length of the urethra was fairly open the bulbar urethra is clear with again of the prostatic fossa area of a lot of scar tissue along the fossa had prior prostatectomy but all scar tissue from the sphincter into the bladder very narrow channel is able to get with a 21 Sammarinese quite narrowly I then used a 965 laser fiber with thulium settings and then I set it to incision on the thelium's machine and then I incised at the 5:00 in the septically position widely at the bladder neck to try get this to open up widely which was very successful had an open channel at the bladder neck but again had no prostate really a lot of scar tissue along the urethra he is can have no control of his bladder Total incontinence from what I can tell. I then there was no bleeding so I took out the scope drained the bladder and we will see if he can do urinate if he can pass a voiding trial today go home without a catheter. Follow-up in a few weeks for checkup Surgeon: Zhao Gilliland Type of Anesthesia: General Drains: none Admit VTE Documentation VTE Present on Admission: No VTE Mechan Device Prophylaxis: SCD's VTE Pharm Prophylaxis ordered?: No
[2023-11-11] MEDS: Ketorolac 15 MG/ML Vial IV (15:32)
--- NOTE | 2023-11-11 17:21 | SUR.PHASEII ---
PATIENT STATES HE'S TRIED VOIDING SEVERAL TIMES POST-OP, ONLY GETTING DRIBBLES OF BLOOD. NOTED THERE ARE NO IV FLUIDS RUNNING ON PATIENT. WILL RESTART IV FLUIDS IF UNABLE TO VOID AT THIS TIME. WILL ALSO ENCOURAGE AMBULATING IN HALLWAY.
--- NOTE | 2024-01-15 19:24 | PCM.POST.ANE ---
Anesthesia: Postop Eval I Current Vital Signs Temperature: 97.2 F Pulse Rate: 79 Blood Pressure: 120/75 Respiratory Rate: 19 Pulse Ox: 100 Assessment Airway patent: Yes Spontaneous unlabored respirations: Yes nausea: No Vomiting: No Anesthesia Complication: No Fluid Hydration Crystalloid volume administer (ml): 1,000 Total IV fluid infused: 1,000 Progress Note Anesthesia document: Postop Eval 1 completed: Yes
--- NOTE | 2024-01-15 19:25 | POSTOPAN2_ITS ---
Anesthesia Postop Eval I Sum Postop Eval Completion status Anesthesia document: Postop Eval 1 completed: Yes Anesthesia Postop Eval I Summary Anesthesia Postop Eval I Summary: Anesthesia Postop Eval I: Assessment Summary Airway patent Yes 01/15/24 19:24 DIGITAL RESEARCH ANALYST.MEDM Spontaneous unlabored Yes 01/15/24 19:24 DIGITAL RESEARCH ANALYST.MEDM respirations Mental status nausea No 01/15/24 19:24 DIGITAL RESEARCH ANALYST.MEDM Vomiting No 01/15/24 19:24 DIGITAL RESEARCH ANALYST.MEDM Anesthesia Postop Eval I: Fluid Summary Crystalloid volume administer 1,000 01/15/24 19:24 DIGITAL RESEARCH ANALYST.MEDM (ml) Colloids volume administered ( ml) Blood Product volume administered (ml) Total IV fluid infused 1,000 01/15/24 19:24 DIGITAL RESEARCH ANALYST.MEDM Anesthesia Postop Eval I: Summary Notes Anesthesia Complication No 01/15/24 19:24 DIGITAL RESEARCH ANALYST.MEDM Anesthesia Complication Comment: Post-operative progress note Anesthesia: Postop Eval II Evaluation Mental status: Awake Pain Level: 0 nausea: No Vomiting: No
--- NOTE | 2024-01-15 19:25 | PCM.POSTANE2 ---
Anesthesia Postop Eval I Sum Postop Eval Completion status Anesthesia document: Postop Eval 1 completed: Yes Anesthesia Postop Eval I Summary Anesthesia Postop Eval I Summary: Anesthesia Postop Eval I: Assessment Summary Airway patent Yes 01/15/24 19:24 [email or web address] Spontaneous unlabored Yes 01/15/24 19:24 WASTE [email or web address].MEDM respirations Mental status nausea No 01/15/24 19:24 WASTE [email or web address].MEDM Vomiting No 01/15/24 19:24 WASTE [email or web address].MEDM Anesthesia Postop Eval I: Fluid Summary Crystalloid volume administer 1,000 01/15/24 19:24 WASTE PICKER.MEDM (ml) Colloids volume administered ( ml) Blood Product volume administered (ml) Total IV fluid infused 1,000 01/15/24 19:24 WASTE [email or web address].MEDM Anesthesia Postop Eval I: Summary Notes Anesthesia Complication No 01/15/24 19:24 WASTE [email or web address].MEDM Anesthesia Complication Comment: Post-operative progress note Anesthesia: Postop Eval II Evaluation Mental status: Awake Pain Level: 0 nausea: No Vomiting: No
== END 2023-11-11 18:43 | disposition home or self-care (01) ==
LOC: SDC 11:33 → AC 11:34
PROVIDERS: PCP Family Medicine; Referring Provider Urology; Visit Provider Urology
PROC: 0TBB8ZZ Excision of Bladder, Via Natural or Artificial Opening Endoscopic (ICD-10-PCS; CPT 52276; principal; 2023-11-11 13:30)
DX: N32.89 Other specified disorders of bladder (principal); I10 Essential (primary) hypertension; Z79.899 Other long term (current) drug therapy
CPT/HCPCS: 52276; 00910; J7120; J2405

== ENCOUNTER 2023-11-14 05:47 | Emergency (ER) | payer MEDICARE, OTHER, SELFPAY ==
[2023-11-14 05:48] VITALS: BP 164/74; PULSE 108; RESP 18; TEMP 36.2; O2SAT 96; BMI 27.8
--- NOTE | 2023-11-14 05:55 | EX.ED.GUMALE ---
HPI History of Present Illness Chief Complaint: Complaint Detail of Chief Complaint: Urinary retention Informant: patient Narrative Narrative: Patient presents to the emergency department with complaint of urinary retention. Patient states that he had surgery on his bladder with Dr. Gilliland 3 days ago. He did well over the weekend. He woke up at 1 AM and his depends was full. He has been unable to pass any urine since that time and describes lower abdomen discomfort and pressure. He denies fevers or chills or sweats. Remote history of prostate cancer. Patient has had prostatectomy. [facility] Medical History (Updated 11/14/23 @ 07:[address] Sanya Patterson, DO) Worthy catheter in place Wears glasses Cancer Arthritis Non-smoker History of pain when walking History of edema Hypertension Prostate cancer Blood in urine Home Medications ?Medication ?Instructions ?Recorded ?Last Taken ?Type amlodipine 10 mg tablet 10 mg PO DAILY 12/08/18 11/11/23 History lisinopril 40 mg tablet 40 mg PO BID 12/08/18 11/11/23 History terazosin 5 mg capsule 5 mg PO DAILY 12/08/18 11/10/23 History furosemide 20 mg tablet 20 mg PO DAILY 11/04/23 11/08/23 History multivit,Ca,min-iron 8 mg-folic 1 tab PO DAILY 11/04/23 11/11/23 History acid 200 mcg-lycopene 600 mcg tablet (A Thru Z Men's Ultimate) ciprofloxacin HCl 500 mg tablet 500 mg PO BID #10 tabs 11/11/23 Unknown Rx (Cipro) Allergy/AdvReac Type Severity Reaction Status Date / Time losartan Allergy Mild Rash Verified 11/11/23 12:02 Sulfa (Sulfonamide Allergy Hives Verified 11/11/23 12:02 Antibiotics) atenolol AdvReac Mild WEAKNESS Verified 11/11/23 12:02 hydrochlorothiazide AdvReac Mild UNKNOWN Verified 11/11/23 12:02 indomethacin (From Indocin) AdvReac Mild GI upset Verified 11/11/23 12:02 Surgical History (Updated 11/04/23 @ 09:23 by Kathleen Hernandez) History of left knee replacement Hx of radical prostatectomy Hx of cystoscopy Hx of colonoscopy Social History household members: spouse housing: house Smoking Status: Never smoker ROS ROS ED Review of Systems ROS Unobtainable: other Constitutional Constitutional ED: Reports lethargy; Denies chills, fever(s), sweats or weight loss Eyes Eyes: Denies blurry vision, change in vision or diplopia ENT ENT ED: Denies rhinorrhea or sore throat Cardiovascular Cardiovascular: Denies chest pain, orthopnea or racing heartbeat Respiratory/Chest Respiratory/Chest: Denies cough, dyspnea, dyspnea on exertion, orthopnea or sputum Gastrointestinal Gastrointestinal: Denies abdominal pain, diarrhea, nausea or vomiting Genitourinary Genitourinary ED: Reports other Details: Urinary retention ; Denies dysuria, hematuria or urinary frequency Musculoskeletal Musculoskeletal: Denies arthralgias, back pain, myalgias or neck pain Integumentary Denies abscess, Abrasions or rash Neurologic Neurologic: Denies headache(s) or weakness Psychiatric Psychiatric: Denies anxiety, depression or suicidal thoughts Endocrine Endocrinology: Denies polydipsia, polyphagia or polyuria Hematologic/Lymphatic Hematologic/Lymphatic: Denies easy bleeding, easy bruising or lymphadenopathy Allergic/Immunologic Allergic/Immunologic ED: Denies mouth swelling, tongue swelling or urticaria EXAM Physical Exam Const Vital Signs: 11/14/23 05:48 Temperature 97.1 F L Temperature Source Temporal Pulse Rate 108 H Respiratory Rate 18 Blood Pressure 164/74 H Blood Pressure Mean 104 Pulse Ox 96 Oxygen Delivery Method Room Air Positive well nourished and well developed General Appearance ED: well developed and NAD HEENT Reports TM's clear and moist mucous membranes normocephalic and atraumatic; Negative for trauma or tenderness Tympanic Membrane ED: Yes TM's clear Eyes PERRL and EOMs intact bilaterally General Eye ED: Negative for pale conjunctiva or scleral icterus Neck no lymphadenopathy, supple and no JVD General: Negative for tenderness Chest Wall inspection of chest normal and palpation of chest normal Chest: Negative for tenderness Resp normal respiratory effort and clear to auscultation bilaterally Effort and Inspection: Negative for respiratory distress or pain with movement Auscultation: Negative for rhonchi, wheezes or diminished lung sounds Cardio regular rate, regular rhythm, S1 normal heart sound, S2 normal heart sound and no murmurs Peripheral Pulses: pulses 2+ throughout GI normal to inspection, nondistended, normoactive bowel sounds, soft to palpation, non-distended and no masses GI Narrative: Diffuse tenderness palpation over the suprapubic region with some guarding. There is no rebound, rigidity, or pineal signs. No mass palpated. Back/Spine no CVA tenderness and no thoracic nor lumbar tenderness Extremity normal to inspection General Extremety ED: Negative for edema General Extremity: Negative for edema Neuro oriented x3, CN's II-XII intact bilaterally, no sensory deficits noted and gait normal Sensorium / Orientation: awake, alert, oriented to person, oriented to place and oriented to time Motor Exam: strength 5/5 throughout and strength abnormal Psych mental status grossly normal Skin no rashes or lesions noted and no wounds MDM MDM MDM Narrative Medical decision making narrative: Initial bladder scan showed around 380 cc of urine. A Worthy catheter was ordered and was attempted initially and unsuccessful initially but then papal patient was able to urinate a little bit on his own. Worthy catheter eventually was placed and had over 400 cc of urine. He felt immediately improved. Urinalysis obtained. Lab Data Labs: Laboratory Results - last 24 hr 11/14/23 06:20 Urine Color Yellow Urine Clarity Clear Urine pH 7.0 Ur Specific [place] 1.015 Urine Protein 30 H Urine Glucose (UA) Normal Urine Ketones Negative Urine Occult Blood 150 H Urine Nitrite Negative Urine Bilirubin Negative Urine Urobilinogen Normal Ur Leukocyte Esterase 100 H Urine RBC 5-10 SEEN Urine WBC 0-5 SEEN Ur Squamous Epith Cells 0-5 SEEN Urine Bacteria 0 SEEN Urine Mucus 0 SEEN Discharge Plan Triage Chief Complaint: Complaint ED Provider: Sanya Patterson Dx/Rx/DC Orders Clinical Impression: Acute urinary retention Instructions: ED Urinary Retention, Male Prescriptions: No Action terazosin 5 MG capsule 5 mg PO DAILY amlodipine 10 MG tablet 10 mg PO DAILY lisinopril 40 MG tablet 40 mg PO BID furosemide 20 mg tablet 20 mg PO DAILY A Thru Z Men's Ultimate 8 mg iron- 200 mcg-600 mcg tablet 1 tab PO DAILY ciprofloxacin HCl [Cipro] 500 mg tablet 500 mg PO BID Qty: 10 0RF Primary Care Provider: Isaiah Han Referrals: Isaiah Han MD [Primary Care Provider] - Zhao Gilliland MD [Med Staff - Active Staff] - 3-5 Days Print Language: Faroese Disposition Disposition: Home, Self Care
[2023-11-14 06:36] LABS: Bacteria 0 SEEN /hpf (None Seen); Mucous, Urine 0 SEEN /hpf (<or=2+)
[2023-11-14 06:39] LABS: Color, Urine Yellow (Yellow); Glucose, Dipstick Normal (Normal); Ketone-Dipstick Negative (Negative); Leukocyte Esterase-Dipstick 100 /ul (Negative); Nitrite-Dipstick Negative (Negative); Occult Blood-Urine 150 /ul (Negative); Protein-Dipstick 30 mg/dl (Negative); Specific Gravity, Urine 1.015 (1.002-1.030); Urine Bilirubin Dipstick Negative (Negative); Urine Clarity Clear (Clear); Urine Urobilinogen Normal (Normal)
[2023-11-14 07:18] LABS: Red Blood Cells-Urine 5-10 SEEN /hpf (0-5); Squamous Epithelial Cells - UA 0-5 SEEN /hpf (0-5); White Blood Cells 0-5 SEEN /hpf (0-5)
[2023-11-14 07:29] VITALS: BP 120/73; PULSE 80; RESP 18; TEMP 36.4; O2SAT 97
== END 2023-11-14 07:31 | disposition home or self-care (01) ==
PROVIDERS: Emergency Provider Emergency Medicine; PCP Family Medicine; Visit Provider Emergency Medicine
DX: R33.9 Retention of urine, unspecified (principal); I10 Essential (primary) hypertension; Z79.899 Other long term (current) drug therapy; Z98.890 Other specified postprocedural states; Z85.46 Personal history of malignant neoplasm of prostate; Z90.79 Acquired absence of other genital organ(s)
CPT/HCPCS: 51702; 81001; 99283

== ENCOUNTER 2023-12-01 20:17 | Emergency (ER) | payer MEDICARE, OTHER, SELFPAY ==
[2023-12-01 20:18] VITALS: BP 158/77; PULSE 108; RESP 18; TEMP 36.1; O2SAT 98; BMI 27.0
--- NOTE | 2023-12-01 20:29 | EX.ED.GUMALE ---
HPI History of Present Illness Chief Complaint: Worthy C/O Informant: patient Narrative Narrative: Patient presents with acute urinary retention, saying that his Worthy stopped flowing this evening he feels like there may be some more clots there. He has had some hematuria status post recent urinary procedure, I saw Dr. Gilliland in the office this morning and was irrigated to get some clots out and he feels like there may be some more. He does not have any abdominal pain yet. Takes no anticoagulants. PFSH PFSH Medical History Worthy catheter in place Wears glasses Cancer Arthritis Non-smoker History of pain when walking History of edema Hypertension Prostate cancer Blood in urine Home Medications ?Medication ?Instructions ?Recorded ?Last Taken ?Type amlodipine 10 mg tablet 10 mg PO DAILY 12/08/18 11/11/23 History lisinopril 40 mg tablet 40 mg PO BID 12/08/18 11/11/23 History terazosin 5 mg capsule 5 mg PO DAILY 12/08/18 11/10/23 History furosemide 20 mg tablet 20 mg PO DAILY 11/04/23 11/08/23 History multivit,Ca,min-iron 8 mg-folic 1 tab PO DAILY 11/04/23 11/11/23 History acid 200 mcg-lycopene 600 mcg tablet (A Thru Z Men's Ultimate) ciprofloxacin HCl 500 mg tablet 500 mg PO BID #10 tabs 11/11/23 Unknown Rx (Cipro) Allergy/AdvReac Type Severity Reaction Status Date / Time losartan Allergy Mild Rash Verified 12/01/23 20:21 Sulfa (Sulfonamide Allergy Hives Verified 12/01/23 20:21 Antibiotics) atenolol AdvReac Mild WEAKNESS Verified 12/01/23 20:21 hydrochlorothiazide AdvReac Mild UNKNOWN Verified 12/01/23 20:21 indomethacin (From Indocin) AdvReac Mild GI upset Verified 12/01/23 20:21 Surgical History History of left knee replacement Hx of radical prostatectomy Hx of cystoscopy Hx of colonoscopy Social History household members: spouse housing: house Smoking Status: Never smoker ROS ROS ED Constitutional Constitutional ED: Denies chills or fever(s) Gastrointestinal Gastrointestinal: Denies abdominal pain, nausea or vomiting Genitourinary Genitourinary ED: Reports hematuria Musculoskeletal Musculoskeletal: Denies back pain Neurologic Neurologic: Denies headache(s), paresthesias or weakness EXAM Physical Exam Const Vital Signs: 12/01/23 20:18 Temperature 96.9 F L Temperature Source Temporal Pulse Rate 108 H Respiratory Rate 18 Blood Pressure 158/77 H Blood Pressure Mean 104 Pulse Ox 98 Oxygen Delivery Method Room Air Positive well nourished and well developed Constitutional Narrative: Well-appearing General Appearance ED: well developed and NAD Resp normal respiratory effort GI non-tender and non-distended Inspection: Negative for abdominal distention Auscultation: normoactive bowel sounds Palpation: soft no CVA tenderness Narrative: Worthy in place. Small amount of hematuria within the tubing and the bag no active flow. Back/Spine no CVA tenderness Extremity normal to inspection Neuro oriented x3, CN's II-XII intact bilaterally, moves all extremities, no focal motor deficits, no sensory deficits noted and gait normal MDM MDM MDM Narrative Medical decision making narrative: Nursing irrigated catheter, there were a lot of clots that came out and the patient has good flow after we observed him for a while later. Urine is still pink, less red/bloody than before, and no clots. Stable for discharge he feels asymptomatic. Discharge Plan Triage Chief Complaint: Worthy C/O ED Provider: Clayton Farrell Dx/Rx/DC Orders Clinical Impression: Acute urinary retention, Hematuria Instructions: ED Worthy Catheter, Care Prescriptions: No Action terazosin 5 MG capsule 5 mg PO DAILY amlodipine 10 MG tablet 10 mg PO DAILY lisinopril 40 MG tablet 40 mg PO BID furosemide 20 mg tablet 20 mg PO DAILY A Thru Z Men's Ultimate 8 mg iron- 200 mcg-600 mcg tablet 1 tab PO DAILY ciprofloxacin HCl [Cipro] 500 mg tablet 500 mg PO BID Qty: 10 0RF Primary Care Provider: Isaiah Han Referrals: Isaiah Han MD [Primary Care Provider] - Zhao Gilliland MD [Med Staff - Active Staff] - 1-2 Days if not improving Print Language: Albanian Disposition Disposition: Home, Self Care
== END 2023-12-01 21:34 | disposition home or self-care (01) ==
PROVIDERS: Emergency Provider Emergency Medicine; PCP Family Medicine; Visit Provider Emergency Medicine
DX: R31.9 Hematuria, unspecified (principal); R33.9 Retention of urine, unspecified; I10 Essential (primary) hypertension; Z79.899 Other long term (current) drug therapy; Z90.79 Acquired absence of other genital organ(s)
CPT/HCPCS: 99282

== ENCOUNTER 2023-12-02 12:16 | Emergency (ER) | payer MEDICARE, OTHER, SELFPAY ==
[2023-12-02 12:18] VITALS: BP 138/87; PULSE 113; RESP 18; TEMP 36.4; O2SAT 97; BMI 27.1
--- NOTE | 2023-12-02 13:13 | EX.ED.GUMALE ---
HPI History of Present Illness Chief Complaint: Worthy C/O Informant: patient Narrative Narrative: Patient is a 78-year-old male with history of urinary retention, prostate cancer and Worthy catheter placement presenting with leaking from around his Worthy. Patient had his Worthy catheter replaced yesterday due to clogging from blood clots. He states he had surgery with Dr. Gilliland 2 weeks ago for bladder neck contracture and has had to have Worthy catheter since. He states it was draining well lat night since he has been home but this morning he had an appointment in [place] and switch to his leg bag. He states it was not draining when he was wearing his leg bag and no urine accumulated in the bag. When he switched it to his regular bag it started draining again. He notes there is no real clots but is blood-tinged urine. This has been occurring since the procedure. He switch back to the leg bag and has not been draining which is what presenting to the emergency room. He does not feel like he needs to urinate yet. Denies any fever or chills. Denies any other complaints at this time. [facility] Medical History Worthy catheter in place Wears glasses Cancer Arthritis Non-smoker History of pain when walking History of edema Hypertension Prostate cancer Blood in urine Home Medications ?Medication ?Instructions ?Recorded ?Last Taken ?Type amlodipine 10 mg tablet 10 mg PO DAILY 12/08/18 11/11/23 History lisinopril 40 mg tablet 40 mg PO BID 12/08/18 11/11/23 History terazosin 5 mg capsule 5 mg PO DAILY 12/08/18 11/10/23 History furosemide 20 mg tablet 20 mg PO DAILY 11/04/23 11/08/23 History multivit,Ca,min-iron 8 mg-folic 1 tab PO DAILY 11/04/23 11/11/23 History acid 200 mcg-lycopene 600 mcg tablet (A Thru Z Men's Ultimate) ciprofloxacin HCl 500 mg tablet 500 mg PO BID #10 tabs 11/11/23 Unknown Rx (Cipro) Allergy/AdvReac Type Severity Reaction Status Date / Time losartan Allergy Mild Rash Verified 12/02/23 12:18 Sulfa (Sulfonamide Allergy Hives Verified 12/02/23 12:18 Antibiotics) atenolol AdvReac Mild WEAKNESS Verified 12/02/23 12:18 hydrochlorothiazide AdvReac Mild UNKNOWN Verified 12/02/23 12:18 indomethacin (From Indocin) AdvReac Mild GI upset Verified 12/02/23 12:18 Surgical History History of left knee replacement Hx of radical prostatectomy Hx of cystoscopy Hx of colonoscopy Social History household members: spouse housing: house Smoking Status: Never smoker ROS ROS ED Constitutional Constitutional ED: Denies chills or fever(s) Genitourinary Genitourinary ED: Reports hematuria and other Details: Worthy catheter not draining with leg bag is on Musculoskeletal Musculoskeletal: Denies arthralgias, back pain or myalgias Neurologic Neurologic: Denies headache(s) or weakness Psychiatric Psychiatric: Denies anxiety Hematologic/Lymphatic Hematologic/Lymphatic: Denies easy bleeding or easy bruising EXAM Physical Exam Const Vital Signs: 12/02/23 12:18 12/02/23 14:25 Temperature 97.6 F L 98.7 F Temperature Source Temporal Pulse Rate 113 H 72 Respiratory Rate 18 16 Blood Pressure 138/87 H 128/64 H Blood Pressure Mean 104 85 Pulse Ox 97 97 Positive well nourished and well developed General Appearance ED: well developed and NAD; Negative for pallor HEENT Reports moist mucous membranes Resp normal respiratory effort Cardio regular rate and regular rhythm GI non-tender and non-distended Palpation: soft Narrative: Worthy catheter in place. When patient adjusted himself for me to look at the Worthy catheter it spontaneously started draining blood-tinged urine. No clots or sediment are appreciated. No lesions or pain noted at the meatus. Extremity normal to inspection Neuro oriented x3 and no focal motor deficits Sensorium / Orientation: alert Psych mental status grossly normal Skin General Skin Exam: Negative for pallor Rashes: no rashes MDM MDM MDM Narrative Medical decision making narrative: Patient presents for inadequate Worthy catheter drainage. He has been having hematuria. He associate with his leg bag. While in the ER 20s he starts draining again. Catheter is flushed. I think if anything the air was a small amount of sediment clogging of the Worthy as it does not seem to be an actual problem with the leg bag. Urinalysis sent which is most consistent with hematuria however will send for culture. Is not having any fever or increased pain and does not have significant sediment on my exam today in his Worthy bag will defer antibiotics at this time. Patient agreeable this plan of care. Patient given return precautions. The patient does not have any significant clots despite his hematuria and I do not think he needs to come in for continuous bladder irrigation at this time. He is hemodynamically stable and otherwise asymptomatic I do not think a CBC is indicated either. Will follow-up outpatient with his urologist. Lab Data Attestation: I reviewed the patient's lab results. Labs: Laboratory Results - last 24 hr 12/02/23 13:20 Urine Color Yellow Urine Clarity Sl. Cloudy Urine pH 6.0 Ur Specific Tyler 1.010 Urine Protein 30 H Urine Glucose (UA) Normal Urine Ketones Negative Urine Occult Blood 250 H Urine Nitrite Negative Urine Bilirubin Negative Urine Urobilinogen Normal Ur Leukocyte Esterase 500 H Urine RBC > 100 SEEN Urine WBC 5-10 SEEN Ur Squamous Epith Cells 0-5 SEEN Urine Bacteria 1+ Urine Mucus 0 SEEN Discharge Plan Triage Chief Complaint: Worthy C/O ED Provider: Temi Macias Dx/Rx/DC Orders Clinical Impression: Complication, blocked Worthy catheter, Hematuria Prescriptions: No Action terazosin 5 MG capsule 5 mg PO DAILY amlodipine 10 MG tablet 10 mg PO DAILY lisinopril 40 MG tablet 40 mg PO BID furosemide 20 mg tablet 20 mg PO DAILY A Thru Z Men's Ultimate 8 mg iron- 200 mcg-600 mcg tablet 1 tab PO DAILY ciprofloxacin HCl [Cipro] 500 mg tablet 500 mg PO BID Qty: 10 0RF Primary Care Provider: Isaiah Han Referrals: Isaiah Han MD [Primary Care Provider] - Activity Restrictions/Additional Instructions: Urine culture was sent to make sure you do not have an infection. You will be contacted if you have antibiotics. Please follow-up with Dr. Gilliland Print Language: Japanese Disposition Disposition: Home, Self Care Discharge Date/Time: 12/02/23 14:26
[2023-12-02 13:23] LABS: Mucous, Urine 0 SEEN /hpf (<or=2+)
[2023-12-02 13:25] LABS: Color, Urine Yellow (Yellow); Glucose, Dipstick Normal (Normal); Ketone-Dipstick Negative (Negative); Leukocyte Esterase-Dipstick 500 /ul (Negative); Nitrite-Dipstick Negative (Negative); Occult Blood-Urine 250 /ul (Negative); Protein-Dipstick 30 mg/dl (Negative); Urine Bilirubin Dipstick Negative (Negative); Urine Clarity Sl. Cloudy (Clear); Urine Urobilinogen Normal (Normal)
[2023-12-02 13:32] LABS: Red Blood Cells-Urine > 100 SEEN /hpf (0-5); Squamous Epithelial Cells - UA 0-5 SEEN /hpf (0-5); White Blood Cells 5-10 SEEN /hpf (0-5)
[2023-12-02 13:33] LABS: Bacteria 1+ /hpf (None Seen)
[2023-12-02 14:25] VITALS: BP 128/64; PULSE 72; RESP 16; TEMP 37.1; O2SAT 97
== END 2023-12-02 14:26 | disposition home or self-care (01) ==
PROVIDERS: Emergency Provider Emergency Medicine; PCP Family Medicine; Visit Provider Emergency Medicine
DX: T83.091A Other mechanical complication of indwelling urethral catheter, initial encounter (principal); R31.9 Hematuria, unspecified; Y73.8 Miscellaneous gastroenterology and urology devices associated with adverse incidents, not elsewhere classified; R33.9 Retention of urine, unspecified; I10 Essential (primary) hypertension; Z79.899 Other long term (current) drug therapy; Z90.79 Acquired absence of other genital organ(s)
CPT/HCPCS: 81001; 87077; 87086; 87088; 87186; 99282

== ENCOUNTER 2023-12-05 21:37 | Emergency (ER) | payer MEDICARE, OTHER, SELFPAY ==
[2023-12-05 21:38] VITALS: BP 100/62; PULSE 121; RESP 16; TEMP 36.1; O2SAT 100; BMI 26.5
[2023-12-05] MEDS: Lidocaine Jelly 2% 20 ML Syringe (URO-JET) 1 APPLIC TOPICAL (23:50)
--- NOTE | 2023-12-06 00:25 | ED.RN ---
Manual irrigation with 150cc total of normal saline, received the same out. Pt has minimal output in perdomo bag, bladder scan due to pt distention of bladder. 0cc from bladder scan, Dr. Kirkland notified.
--- NOTE | 2023-12-06 00:59 | EDS_ITS ---
HPI History of Present Illness Chief Complaint: Worthy C/O Informant: patient and spouse/S.O. Narrative Narrative: Patient is a 78-year-old male with past medical history of prostate cancer who states he underwent a radical prostatectomy and has had a Worthy catheter in place for approximately 1 month. He states that occasionally a scab will break loose and plug his catheter and therefore he will need to have the catheter flushed or changed. He states this has happened multiple times since the initial insertion. He reports that this evening the catheter was flowing normally and then all of a sudden he realized that there was no urine within the catheter and with concern he may be obstructed once again presents for evaluation. [facility] Medical History Worthy catheter in place Wears glasses Cancer Arthritis Non-smoker History of pain when walking History of edema Hypertension Prostate cancer Blood in urine Home Medications ?Medication ?Instructions ?Recorded ?Last Taken ?Type amlodipine 10 mg tablet 10 mg PO DAILY 12/08/18 11/11/23 History lisinopril 40 mg tablet 40 mg PO BID 12/08/18 11/11/23 History terazosin 5 mg capsule 5 mg PO DAILY 12/08/18 11/10/23 History furosemide 20 mg tablet 20 mg PO DAILY 11/04/23 11/08/23 History multivit,Ca,min-iron 8 mg-folic 1 tab PO DAILY 11/04/23 11/11/23 History acid 200 mcg-lycopene 600 mcg tablet (A Thru Z Men's Ultimate) Allergy/AdvReac Type Severity Reaction Status Date / Time losartan Allergy Mild Rash Verified 12/05/23 21:38 Sulfa (Sulfonamide Allergy Hives Verified 12/05/23 21:38 Antibiotics) atenolol AdvReac Mild WEAKNESS Verified 12/05/23 21:38 hydrochlorothiazide AdvReac Mild UNKNOWN Verified 12/05/23 21:38 indomethacin (From Indocin) AdvReac Mild GI upset Verified 12/05/23 21:38 Surgical History History of left knee replacement Hx of radical prostatectomy Hx of cystoscopy Hx of colonoscopy Social History household members: spouse housing: house Smoking Status: Never smoker ROS ROS ED Constitutional Constitutional ED: Denies chills or fever(s) ENT ENT ED: Denies sore throat Cardiovascular Cardiovascular: Denies chest pain Respiratory/Chest Respiratory/Chest: Denies cough or dyspnea Gastrointestinal Gastrointestinal: Denies abdominal pain, diarrhea, nausea or vomiting Genitourinary Genitourinary ED: Reports hematuria and other Details: Positive urinary retention Musculoskeletal Musculoskeletal: Denies back pain or myalgias Integumentary Denies rash Neurologic Neurologic: Denies headache(s) Hematologic/Lymphatic Hematologic/Lymphatic: Denies easy bleeding or easy bruising EXAM Physical Exam Const Vital Signs: 12/05/23 21:38 Temperature 97 F L Temperature Source Temporal Pulse Rate 121 H Respiratory Rate 16 Blood Pressure 100/62 Blood Pressure Mean 74 Pulse Ox 100 Positive well nourished and well developed General Appearance ED: well developed; Negative for pallor HEENT HEENT Narrative: Normocephalic atraumatic Eyes PERRL and EOMs intact bilaterally General Eye ED: Negative for pale conjunctiva or scleral icterus Neck supple Resp normal respiratory effort and clear to auscultation bilaterally Cardio regular rate and regular rhythm Rate: other Other Details: Heart is regular rate and rhythm without murmurs rubs or gallops Radial and carotid pulses are equal and symmetric GI non-tender, non-distended and no masses GI Narrative: Abdomen is soft nontender and nondistended with normal active bowel sounds No obvious organomegaly in the suprapubic/lower mid abdomen region to suggest urinary retention. Auscultation: normoactive bowel sounds Palpation: soft Narrative: Normal circumcised male with indwelling Worthy catheter no blood or discharge or leakage of urine around the catheter insertion site No soft tissue changes to suggest infection Back/Spine no CVA tenderness Extremity normal to inspection Neuro oriented x3, CN's II-XII intact bilaterally and no sensory deficits noted Sensorium / Orientation: alert Motor Exam: strength 5/5 throughout Psych mental status grossly normal Skin no rashes or lesions noted and no wounds General Skin Exam: Negative for jaundice or pallor MDM MDM MDM Narrative Medical decision making narrative: Patient presented to the ER with complaint of a Worthy catheter that was no longer draining. He states this has happened multiple times since his insertion. On exam the Worthy catheter bag has minimal urine in it but his exam does not suggest severe urinary retention or distended bladder. He states is only been a few hours since he noticed the urine was not draining and therefore my concern for acute kidney injury is low. Also has a catheter has been indwelling for multiple weeks it is most likely colonized and as he is afebrile do not feel there is a need for UA. I elected to have the catheter changed with concern that he may need a larger gauge to prevent obstruction. The catheter was replaced without difficulty and upon doing so there was only minimal production of urine. The catheter was flushed and 50 cc of saline went into the catheter and 50 cc returned going against obstruction. A bladder scan was p erformed which showed minimal urine within the bladder. I then placed the ultrasound on the patient's abdomen and confirmed that there is no urinary distention and the Worthy catheter appears to be in the proper position. This correlates with his exam not suggesting acute urinary retention. Therefore at this time I have low concern for UTI or CHRIS and the patient's Worthy catheter has been replaced and does flush and drain appropriately and therefore is otherwise safe for discharge with outpatient follow-up History & Record Review Discussion w/independent historian: Patient and Significant other Discharge Plan Triage Chief Complaint: Worthy C/O ED Provider: Reuben Kirkland Dx/Rx/DC Orders Clinical Impression: Worthy catheter problem, Prostate cancer, Hypertension Prescriptions: No Action terazosin 5 MG capsule 5 mg PO DAILY amlodipine 10 MG tablet 10 mg PO DAILY lisinopril 40 MG tablet 40 mg PO BID furosemide 20 mg tablet 20 mg PO DAILY A Thru Z Men's Ultimate 8 mg iron- 200 mcg-600 mcg tablet 1 tab PO DAILY Primary Care Provider: Isaiah Han Referrals: Isaiah Han MD [Primary Care Provider] - Activity Restrictions/Additional Instructions: Please follow-up with your urologist as previously directed and return to the ER should you have any further concerns Print Language: Senegalese Disposition Disposition: Home, Self Care Discharge Date/Time: 12/06/23 01:13
== END 2023-12-06 01:13 | disposition home or self-care (01) ==
PROVIDERS: Emergency Provider Emergency Medicine; PCP Family Medicine; Visit Provider Emergency Medicine
DX: T83.091A Other mechanical complication of indwelling urethral catheter, initial encounter (principal); Y73.8 Miscellaneous gastroenterology and urology devices associated with adverse incidents, not elsewhere classified; I10 Essential (primary) hypertension; Z85.46 Personal history of malignant neoplasm of prostate; Z87.891 Personal history of nicotine dependence; Z90.79 Acquired absence of other genital organ(s)
CPT/HCPCS: 51702; 99283

== ENCOUNTER 2024-01-04 08:00 | Outpatient (RCR) | payer MEDICARE, OTHER, SELFPAY ==
[2023-12-21 09:38] VITALS: BP 122/68; PULSE 97; RESP 18; TEMP 35.6; BMI 26.9
--- NOTE | 2023-12-21 11:05 | RAD_ITS ---
STUDY: X-RAY CHEST REASON FOR EXAM: Male, 78 years old. HYPERBARIC O2 CLEARANCE TECHNIQUE: PA and lateral views of the chest. COMPARISON: 03/01/2023 FINDINGS: The lungs are clear and expanded. There is no demonstrated pleural abnormality. Normal size heart. Normal mediastinum and [place]. Normal visualized pulmonary arteries. Normal visualized aortic arch and descending thoracic aorta. Normal visualized thoracic spine. Normal visualized ribs, clavicles, and shoulders. There is no demonstrated abnormality of the visualized soft tissue structures of the upper abdomen. RAD/Chest PA and Lateral IMPRESSION: Normal x-ray examination of the chest. Electronically Signed: Aron Bunn MD at 9:26 EDT ,
[2023-12-21 11:39] LABS: Absolute Lymphocyte Count 0.75 X10^3/uL (0.83-4.51); Absolute Neutrophil Count 5.4 X10^3/uL (2.0-7.7); Basophil# 0.02 X10^3/uL; Basophil% 0.3 % (0-1); Eosinophil# 0.21 X10^3/uL; Eosinophils% 2.9 % (0-5); Hematocrit 36.2 % (40-54); Hemoglobin 11.9 g/dL (13.0-16.5); Lymphocyte # 0.75 X10^3/ul (0.83-4.51); Lymphocyte % 10.3 % (19-41); Mean Corp Hgb Conc 32.9 g/dL (32-36); Mean Corpuscular Hgb 29.6 pg (27.0-32.0); Mean Platelet Vol. 10.3 fl (6.2-12.0); Monocyte# 0.77 X10^3/uL; Monocyte% 10.6 % (0-10); NRBC Flagged by Analyzer 0 % (0-5); Neutrophil # 5.44 X10^3/uL (2.7-7.7); Neutrophil % 75.1 % (47-70); Platelet Count 360 K/mm3 (150-450); RBC Distribution Width CV 12.8 % (11.6-14.6); RBC Distribution Width SD 42.3 fl (35.1-43.9); Red Blood Count 4.02 M/mm3 (4.6-6.2); White Blood Count 7.3 K/mm3 (4.4-11.0)
[2023-12-21 12:03] LABS: Vitamin B12 953 pg/mL (211-911)
--- NOTE | 2023-12-21 12:36 | HBO.CON.PC_ITS ---
Assessment & Plan Assessment/Plan (1) Soft tissue radionecrosis: PLAN: HBO therapy treatment will be with GEORGE 2-hour treatments per daily with no air breaks 5 days a week and we can start with 30 treatments and reevaluate. (2) Bladder dysfunction: PLAN: We will recheck a CBC make sure he is not still anemic get a chest x-ray EKG Patient has no previous history of any cardiac issues or pulmonary issues. History of Present Illness Date of Service: 12/21/23 Chief Complaint: Consult HBO for radiation necrosis History of Wound: Patient has history of prostate cancer and then had a radical prostatectomy done in 2011 and 2015 he had more problems and had 37 radiation treatments. Now he has developed hematuria and they feel that the only way to do treat him would be through HBO treatments. Patient states he has been fighting this since last January and he has made him anemic he has had a lot of blood loss at this point he has a Worthy to CD but it is clear urine he says he has intermittent bleeding. Progress of Wound: So he has had intermittent bleeding that they feel would be healed with the HBO treatments [facility] Medical History Worthy catheter in place Wears glasses Cancer Arthritis Non-smoker History of pain when walking History of edema Hypertension Prostate cancer Blood in urine Home Medications ?Medication ?Instructions ?Recorded ?Last Taken ?Type amlodipine 10 mg tablet 10 mg PO DAILY 12/08/18 11/11/23 History lisinopril 40 mg tablet 40 mg PO BID 12/08/18 11/11/23 History terazosin 5 mg capsule 5 mg PO DAILY 12/08/18 11/10/23 History furosemide 20 mg tablet 20 mg PO DAILY 11/04/23 11/08/23 History multivit,Ca,min-iron 8 mg-folic 1 tab PO DAILY 11/04/23 11/11/23 History acid 200 mcg-lycopene 600 mcg tablet (A Thru Z Men's Ultimate) Allergy/AdvReac Type Severity Reaction Status Date / Time losartan Allergy Mild Rash Verified 12/05/23 21:38 Sulfa (Sulfonamide Allergy Hives Verified 12/05/23 21:38 Antibiotics) atenolol AdvReac Mild WEAKNESS Verified 12/05/23 21:38 hydrochlorothiazide AdvReac Mild UNKNOWN Verified 12/05/23 21:38 indomethacin (From Indocin) AdvReac Mild GI upset Verified 12/05/23 21:38 Surgical History History of left knee replacement Hx of radical prostatectomy Hx of cystoscopy Hx of colonoscopy Social History household members: spouse housing: house Smoking Status: Never smoker ROS Constitutional Constitutional: Reports systems reviewed and no addt'l complaints, except as documented Eyes Eyes: Reports systems reviewed and no addt'l complaints, except as documented ENT HEENT: Reports systems reviewed and no addt'l complaints, except as documented Cardiovascular Cardiovascular: Reports systems reviewed and no addt'l complaints, except as documented Respiratory/Chest Respiratory/Chest: Reports systems reviewed and no addt'l complaints, except as documented Gastrointestinal Gastrointestinal: Reports systems reviewed and no addt'l complaints, except as documented Genitourinary Genitourinary: Reports other Details: Worthy to CD with intermittent hematuria Musculoskeletal Musculoskeletal: Reports systems reviewed and no addt'l complaints, except as documented Integumentary Integumentary: Reports systems reviewed and no addt'l complaints, except as documented Neurologic Neurologic: Reports systems reviewed and no addt'l complaints, except as documented Psychiatric Psychiatric: Reports systems reviewed and no addt'l complaints, except as documented Endocrine Endocrinology: Reports systems reviewed and no addt'l complaints, except as documented Hematologic/Lymphatic Hematologic/Lymphatic: Reports systems reviewed and no addt'l complaints, except as documented Allergic/Immunologic Allergic/Immunologic: Reports systems reviewed and no addt'l complaints, except as documented Physical Exam Physical Exam Const oriented x3 General Appearance: cooperative Exam Limitations: no limitations HEENT normocephalic Head and Scalp: normal to inspection Face and Sinus: normal facial exam Nose: external nose normal General Ear: hearing grossly impaired External Ear: external ears normal Mouth: oral and palatal mucosa normal Eyes PERRL General Eye: normal appearance of both eyes Neck full ROM General: normal visual inspection Resp normal respiratory effort Effort and Inspection: able to speak in complete sentences Auscultation: clear to auscultation bilaterally Cardio regular rate and regular rhythm Palpation: normal PMI Rate: regular rate Rhythm: regular rhythm GI Auscultation: normoactive bowel sounds Palpation: soft and no hepatosplenomegaly external exam normal Back/Spine Cervical Spine: cervical ROM normal Thoracic Spine / Upper Back: normal to inspection Lumbar Spine / Lower Back: normal to inspection Extremity normal to inspection General Extremity: normal exam except as noted Skin no rashes or lesions noted Neuro oriented x3 Psych Appearance: grossly normal Speech: normal speech Thought Content: normal thought content Judgement: judgement good Nursing Assessment and Debridement Post-Debridement Measurements and Additional Note: Post-Debridement Measurements/Treatment - Nurse 1 - General Ulcer Assessment Start: 12/21/23 09:32 Freq: Status: Active Protocol: AUREA.LOWEXT Activity Type Activity Date Activity User E-sign Co-sign Detail Recorded Client Recorded Date Recorded By Document 12/21/23 09:38 RB ound 12/21/23 09:43 RB 12/21/23 09:38 - Today's Visit Information Type of service Initial Visit Arrival Mode Ambulatory Transfer Assistance None Patient Identification Verified (Name & Yes ) Patient Requires Transmission-Based No Precautions Height and Weight Height 5 ft 10 in Weight 188 lb Weight in Pounds 188.0 lbs Body Mass Index (BMI) 26.9 BMI Classification Overweight BSA - Rahat 2.03 Vital Signs Temperature (97.8 F-99.1 F) 96.1 F L Temperature Source Temporal Pulse Rate (60-100 beats/min) 97 Pulse Location Monitor Respiratory Rate (12-18 breaths/min) 18 Respiratory rate source Observation Blood Pressure (90/60-120/80 mm Hg) 122/68 H Blood Pressure Mean (mm Hg) 86 Source Monitor Position Semi-Fowlers Blood Pressure Location Left Arm Pain Scale: 0-10 Numeric Is Patient Pain Free? Yes Communication Assessment Preferred language Kinyarwanda Telephone Operator Chief Required No Able to Read Yes Able to Write Yes Communication Tools None Caregiver Communication Skills No Impairment Impairment Right Hearing Abillity Normal Left Hearing Abillity Normal Visual Assistive Devices Glasses Teaching Assessment Preferences Verbal,Written, Demonstration Barriers to Learning None Readiness To Learn Excellent Willingness to Engage in Self Management High Activies Readiness to Engage in Self Management High Activities Anxiety Level Calm Cooperation Cooperative Perception Coherent Interest in Health Problem Asks Questions Education Importance Acknowledges Need Does Patient Smoke tobacco or other Yes substances Smoking Status Never smoker Is Patient Diabetic No Functional Assessment Recent Decline in Ability to Perform Denies Any Declines Assistive Device With Patient No Culture/Jewish/Product Marketing Executive Cultural/Jewish Needs that may affect No Treatment Plan Would you allow our hospital field marketing representative to No meet you for the purpose of spiritual/ emotional support? Product Marketing Executive to contact place of latter day No Teaching: Wound Center *Welcome to the Wound Center -Person Taught Patient -Teaching Method Discussion, Demonstration -Response to teaching Verbalize understanding Lab / Micro Data 12/21/23 11:12 Labs: Laboratory Results - last 24 hr 12/21/23 11:12: WBC 7.3, RBC 4.02 L, Hgb 11.9 L, Hct 36.2 L, MCV 90.0, MCH 29.6, MCHC 32.9, RDW Std Deviation 42.3, RDW Coeff of Jerry 12.8, Plt Count 360, MPV 10.3, Immature Gran % (Auto) 0.800, Neut % (Auto) 75.1 H, Lymph % (Auto) 10.3 L, Dent % (Auto) 10.6 H, Eos % (Auto) 2.9, Baso % (Auto) 0.3, Absolute Neuts (auto) 5.4, Absolute Lymphs (auto) 0.75 L, Nucleated RBC % 0, Vitamin B12 953 H
--- NOTE | 2023-12-22 08:11 | EKG12_ITS ---
Test Reason : PRE-HYPERBARIC Blood Pressure : / mmHG Vent. Rate : 097 BPM Atrial Rate : 097 BPM P-R Int : 162 ms QRS Dur : 076 ms QT Int : 330 ms P-R-T Axes : 031 057 048 degrees QTc Int : 419 ms Normal sinus rhythm Normal ECG Confirmed by SUZI HOOK, SARAH ([id number]), editor & co founder STEFAN POLK ([id number]) on 12/26/2023 11:11:02 AM Referred By: Krishna Han Confirmed By:SARAH ARCHER MD
[2024-01-04 09:15] VITALS: BP 118/75; BP 126/69; PULSE 75; RESP 14; RESP 15; TEMP 36.6; TEMP 36.9
--- NOTE | 2024-01-04 12:28 | PCM.HBO.PN ---
History of Present Illness Date of Service: 01/04/24 Chief Complaint: Consult HBO for radiation necrosis History of Wound: Patient has history of prostate cancer and then had a radical prostatectomy done in 2011 and 2016 he had more problems and had 37 radiation treatments. Now he has developed hematuria and they feel that the only way to do treat him would be through HBO treatments. Patient states he has been fighting this since last January and he has made him anemic he has had a lot of blood loss at this point he has a Worthy to CD but it is clear urine he says he has intermittent bleeding. Progress of Wound: So he has had intermittent bleeding that they feel would be healed with the HBO treatments Subjective Subjective Patient is anxious to get started and doing well vital signs are stable he will start with treatment #1 today of 30 GEORGE 2.0 Objective Data Objective Data Vital signs stable no concerns evaluated patient everything looked good we will continue with treatments as prescribed Vital Signs: Vital Signs Temp Pulse Resp BP 98.4 F 75 14 118/75 01/04/24 09:15 01/04/24 09:15 01/04/24 09:15 01/04/24 09:15 Weight: 188 lb Body Mass Index (BMI) 26.9 Lab / Micro Data 12/21/23 11:12 Exam Physical Exam Const oriented x3 General Appearance: cooperative Exam Limitations: no limitations HEENT normocephalic Head and Scalp: normal to inspection Face and Sinus: normal facial exam Nose: external nose normal General Ear: hearing grossly impaired External Ear: external ears normal Mouth: oral and palatal mucosa normal Eyes PERRL General Eye: normal appearance of both eyes Neck full ROM General: normal visual inspection Resp normal respiratory effort Effort and Inspection: able to speak in complete sentences Auscultation: clear to auscultation bilaterally Cardio regular rate and regular rhythm Palpation: normal PMI Rate: regular rate Rhythm: regular rhythm GI Auscultation: normoactive bowel sounds Palpation: soft and no hepatosplenomegaly external exam normal Back/Spine Cervical Spine: cervical ROM normal Thoracic Spine / Upper Back: normal to inspection Lumbar Spine / Lower Back: normal to inspection Extremity normal to inspection General Extremity: normal exam except as noted Skin no rashes or lesions noted Neuro oriented x3 Psych Appearance: grossly normal Speech: normal speech Thought Content: normal thought content Judgement: judgement good Assessment/Plan Assessment/Plan (1) Chronic radiation cystitis: CODE(S): N30.40 - Irradiation cystitis without hematuria PLAN: Will continue the HBO treatments as prescribed (2) Bladder dysfunction: CODE(S): N31.9 - Neuromuscular dysfunction of bladder, unspecified (3) Hematuria syndrome: CODE(S): R31.9 - Hematuria, unspecified
== END 2024-01-04 23:59 | disposition home or self-care (01) ==
LOC: WC 08:00
PROVIDERS: PCP Family Medicine; Referring Provider Family Medicine; Visit Provider Nurse Practitioner
DX: N30.41 Irradiation cystitis with hematuria (principal); L59.8 Other specified disorders of the skin and subcutaneous tissue related to radiation; N31.9 Neuromuscular dysfunction of bladder, unspecified; Y84.2 Radiological procedure and radiotherapy as the cause of abnormal reaction of the patient, or of later complication, without mention of misadventure at the time of the procedure; I10 Essential (primary) hypertension; Z79.899 Other long term (current) drug therapy; Z85.46 Personal history of malignant neoplasm of prostate; Z90.79 Acquired absence of other genital organ(s)
CPT/HCPCS: 36415; 71046; 82607; 85025; 93005; 99183; 99214; G0277; G0463

== ENCOUNTER 2024-01-08 10:03 | Emergency (ER) | payer MEDICARE, OTHER, SELFPAY ==
[2024-01-08 10:04] VITALS: BP 129/84; PULSE 104; RESP 18; TEMP 36.5; O2SAT 97; BMI 27.1
--- NOTE | 2024-01-08 10:21 | EX.ED.GUMALE ---
HPI History of Present Illness Chief Complaint: Worthy C/O Narrative Narrative: 78-year-old male past medical history of chronic radiation cystitis with intermittent bleeding secondary to previous prostate carcinoma presents with bleeding from his Worthy catheter since 2 AM, over 8 hours ago. He relates history that he has a chronic indwelling Worthy catheter. It was changed 2 weeks ago at the [facility]. 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 He states every 2 to 3 days or a few times a week he will get a small amount of bleeding, but he usually drinks water, and it resolves. However, since 2 AM this morning, he has had dark red blood in his Worthy catheter. He does not take blood thinners. He denies other symptoms. It has not cleared up since then. He is supposed to have hyperbarics restarted at the recommendation of his urologist from the [facility] although locally he sees Dr. Gilliland. He is complaining of urine dribbling around the Worthy catheter as well. [facility] Medical History Chronic radiation cystitis Worthy catheter in place Wears glasses Cancer Arthritis Non-smoker History of pain when walking History of edema Hypertension Prostate cancer Blood in urine Home Medications ?Medication ?Instructions ?Recorded ?Last Taken ?Type amlodipine 10 mg tablet 10 mg PO DAILY 12/08/18 11/11/23 History lisinopril 40 mg tablet 40 mg PO BID 12/08/18 11/11/23 History terazosin 5 mg capsule 5 mg PO DAILY 12/08/18 11/10/23 History furosemide 20 mg tablet 20 mg PO DAILY 11/04/23 11/08/23 History multivit,Ca,min-iron 8 mg-folic 1 tab PO DAILY 11/04/23 11/11/23 History acid 200 mcg-lycopene 600 mcg tablet (A Thru Z Men's Ultimate) Allergy/AdvReac Type Severity Reaction Status Date / Time losartan Allergy Mild Rash Verified 01/08/24 10:06 Sulfa (Sulfonamide Allergy Hives Verified 01/08/24 10:06 Antibiotics) atenolol AdvReac Mild WEAKNESS Verified 01/08/24 10:06 hydrochlorothiazide AdvReac Mild UNKNOWN Verified 01/08/24 10:06 indomethacin (From Indocin) AdvReac Mild GI upset Verified 01/08/24 10:06 Surgical History History of left knee replacement Hx of radical prostatectomy Hx of cystoscopy Hx of colonoscopy Social History household members: spouse housing: house Smoking Status: Never smoker ROS ROS ED ROS Narrative Constitutional: No fever, no chills. HEENT: No sore throat. No neck pain. No loss of vision. No rhinorrhea. Cardiovascular: No chest pain. No palpitations. No pedal edema. Respiratory: No cough, no shortness of breath. Abdominal: No abdominal pain. No nausea. No vomiting. Genitourinary: Positive dark red hematuria/gross hematuria in Worthy catheter. Leaking around catheter. Musculoskeletal: No myalgias. No arthralgias. Neurologic: No headaches. No dizziness. No lightheadedness. Skin: No rash. No change in color. Psychiatric: No depression. No anxiety. EXAM Physical Exam Narrative Exam Narrative: Afebrile. Vital signs noted. Intermittent tachycardia. Lungs clear to auscultation bilaterally. Abdomen soft nontender with normal active bowel sounds. Positive Worthy catheter in place draining dark red blood in bag, few clots noted in tubing. Const Vital Signs: 01/08/24 10:04 Temperature 97.7 F L Temperature Source Temporal Pulse Rate 104 H Respiratory Rate 18 Blood Pressure 129/84 H Blood Pressure Mean 99 Pulse Ox 97 Oxygen Delivery Method Room Air MDM MDM MDM Narrative Medical decision making narrative: Concern is for continued bleeding and clot blocking Worthy catheter. I do want to remove the catheter currently but will be flushed. I will check a CBC for anemia and a BMP to look at his creatinine. RN irrigate his Worthy catheter, and dislodged large amount of clots. It was irrigated to light pink/clear. Patient is no longer leaking around his Worthy catheter. I reviewed his laboratory work and is white count is normal at 6.9 with hemoglobin stable at 11.1, BUN of 24 and creatinine 1.19. At this point in time, I feel he can be discharged to follow-up with urology. I did page Dr. Gilliland to let him know that patient was here because of the extended bleeding. He will have his hyperbarics tomorrow morning, and return with blocked Worthy catheter again, increased bleeding, new or worsening symptoms. Disposition is discharged home in stable condition. History & Record Review Discussion w/independent historian: Patient and Family Lab Data Attestation: I reviewed the patient's lab results. Labs: Laboratory Results - last 24 hr 01/08/24 10:30 WBC 6.9 RBC 3.69 L Hgb 11.1 L Hct 33.1 L MCV 89.7 MCH 30.1 MCHC 33.5 RDW Std Deviation 42.0 RDW Coeff of Jerry 12.9 Plt Count 251 MPV 9.9 Immature Gran % (Auto) 0.600 Neut % (Auto) 74.1 H Lymph % (Auto) 9.6 L [place] % (Auto) 10.9 H Eos % (Auto) 4.5 Baso % (Auto) 0.3 Absolute Neuts (auto) 5.1 Absolute Lymphs (auto) 0.66 L Nucleated RBC % 0 Sodium 136 Potassium 4.3 Chloride 107 Carbon Dioxide 22.0 Anion Gap 7 BUN 24 H Creatinine 1.18 Estim Creat Clear Calc 54.99 Est GFR (MDRD) Af Amer 77 Est GFR (MDRD) Non-Af 64 BUN/Creatinine Ratio 20.3 H Glucose 97 Calcium 8.8 Management Discussion w/another healthcare provider: Test Conductor (Darshana Reyes) Discharge Plan Triage Chief Complaint: Worthy C/O ED Provider: Catracho Rodriguez Dx/Rx/DC Orders Clinical Impression: Hematuria, Chronic radiation cystitis, Complication, blocked Worthy catheter Instructions: ED Worthy Catheter, Care, ED Hematuria Prescriptions: No Action terazosin 5 MG capsule 5 mg PO DAILY amlodipine 10 MG tablet 10 mg PO DAILY lisinopril 40 MG tablet 40 mg PO BID furosemide 20 mg tablet 20 mg PO DAILY A Thru Z Men's Ultimate 8 mg iron- 200 mcg-600 mcg tablet 1 tab PO DAILY Primary Care Provider: Isaiah Han Referrals: Isaiah Han MD [Primary Care Provider] - Zhao Gilliland MD [Med Staff - Active Staff] - 1-2 Days if not improving Print Language: Armenian Disposition Disposition: Home, Self Care
[2024-01-08 10:37] LABS: Absolute Lymphocyte Count 0.66 X10^3/uL (0.83-4.51); Absolute Neutrophil Count 5.1 X10^3/uL (2.0-7.7); Basophil# 0.02 X10^3/uL; Basophil% 0.3 % (0-1); Eosinophil# 0.31 X10^3/uL; Eosinophils% 4.5 % (0-5); Hematocrit 33.1 % (40-54); Hemoglobin 11.1 g/dL (13.0-16.5); Lymphocyte # 0.66 X10^3/ul (0.83-4.51); Lymphocyte % 9.6 % (19-41); Mean Corp Hgb Conc 33.5 g/dL (32-36); Mean Corpuscular Hgb 30.1 pg (27.0-32.0); Mean Corpuscular Volume 89.7 fL (80-94); Mean Platelet Vol. 9.9 fl (6.2-12.0); Monocyte# 0.75 X10^3/uL; Monocyte% 10.9 % (0-10); NRBC Flagged by Analyzer 0 % (0-5); Neutrophil # 5.12 X10^3/uL (2.7-7.7); Neutrophil % 74.1 % (47-70); Platelet Count 251 K/mm3 (150-450); RBC Distribution Width CV 12.9 % (11.6-14.6); Red Blood Count 3.69 M/mm3 (4.6-6.2); White Blood Count 6.9 K/mm3 (4.4-11.0)
[2024-01-08 10:51] LABS: Anion Gap 7 (5-15); BUN 24 mg/dL (7-18); BUN/Creat Ratio 20.3 RATIO (10-20); Calcium,Total 8.8 mg/dL (8.5-10.1); Chloride 107 mmol/L (98-107); Creatinine, Serum 1.18 mg/dL (0.70-1.30); EST Glomerular Filtration Rate 64 mL/min (>60); Est Glom Filt Rate - Afr Amer 77 mL/min (>60); Estimated Creatinine Clearance 54.99 ml/min; Glucose 97 mg/dL (74-106); Potassium 4.3 mmol/L (3.5-5.1); Sodium Level 136 mmol/L (136-145)
[2024-01-08 11:48] VITALS: BP 146/76; PULSE 72; RESP 18; TEMP 36; O2SAT 96
== END 2024-01-08 11:49 | disposition home or self-care (01) ==
PROVIDERS: Emergency Provider Emergency Medicine; PCP Family Medicine; Visit Provider Emergency Medicine
DX: T83.83XA Hemorrhage due to genitourinary prosthetic devices, implants and grafts, initial encounter (principal); I10 Essential (primary) hypertension; N30.41 Irradiation cystitis with hematuria; T83.89XA Other specified complication of genitourinary prosthetic devices, implants and grafts, initial encounter; Y73.8 Miscellaneous gastroenterology and urology devices associated with adverse incidents, not elsewhere classified
CPT/HCPCS: 99282; 80048; 85025; J7030

== ENCOUNTER → 2024-01-09 | Outpatient (CLI) | payer MEDICARE, OTHER, SELFPAY ==
[2024-01-09 11:46] LABS: PSA,Total- Diagnostic < 0.01 ng/mL (0.0-4.0)
== END | disposition home or self-care (01) ==
PROVIDERS: PCP Family Medicine; Referring Provider Urology; Visit Provider Urology
DX: R97.21 Rising PSA following treatment for malignant neoplasm of prostate (principal)
CPT/HCPCS: 36415; 84153

== ENCOUNTER 2024-01-10 23:41 | Emergency (ER) | payer MEDICARE, OTHER, SELFPAY ==
[2024-01-10 23:42] VITALS: BP 150/81; PULSE 112; RESP 18; TEMP 36.2; O2SAT 97; BMI 27.1
[2024-01-11] MEDS: Lidocaine Jelly 2% 20 ML Syringe (URO-JET) 1 APPLIC TOPICAL (00:33)
--- NOTE | 2024-01-11 01:06 | EX.ED.DYSGE1 ---
HPI History of Present Illness Chief Complaint: Worthy C/O Informant: patient and spouse/S.O. Narrative Narrative: Patient is a 78-year-old male with past medical history of hypertension prostate cancer and chronic radiation cystitis. He states that from the radiation he will occasionally slough his bladder lining and bleed into his Worthy catheter. He states every now and then he will bleed to the point where clots obstruct the Worthy catheter. He denies any history of bleeding disorder or blood thinner use. He states that this evening after getting out of the shower he noticed that his urine changed from clear to blood-tinged and then it stopped flowing and began leaking around the insertion of the catheter. He states this feels similar in nature to when the catheter becomes plugged and therefore comes in for evaluation [facility] Medical History Chronic radiation cystitis Worthy catheter in place Wears glasses Cancer Arthritis Non-smoker History of pain when walking History of edema Hypertension Prostate cancer Blood in urine Home Medications ?Medication ?Instructions ?Recorded ?Last Taken ?Type amlodipine 10 mg tablet 10 mg PO DAILY 12/08/18 11/11/23 History lisinopril 40 mg tablet 40 mg PO BID 12/08/18 11/11/23 History terazosin 5 mg capsule 5 mg PO DAILY 12/08/18 11/10/23 History multivit,Ca,min-iron 8 mg-folic 1 tab PO DAILY 11/04/23 11/11/23 History acid 200 mcg-lycopene 600 mcg tablet (A Thru Z Men's Ultimate) Allergy/AdvReac Type Severity Reaction Status Date / Time losartan Allergy Mild Rash Verified 01/10/24 23:42 Sulfa (Sulfonamide Allergy Hives Verified 01/10/24 23:42 Antibiotics) atenolol AdvReac Mild WEAKNESS Verified 01/10/24 23:42 hydrochlorothiazide AdvReac Mild UNKNOWN Verified 01/10/24 23:42 indomethacin (From Indocin) AdvReac Mild GI upset Verified 01/10/24 23:42 Surgical History History of left knee replacement Hx of radical prostatectomy Hx of cystoscopy Hx of colonoscopy Social History household members: spouse housing: house Smoking Status: Never smoker ROS ROS ED Constitutional Constitutional ED: Denies chills or fever(s) ENT ENT ED: Denies sore throat Cardiovascular Cardiovascular: Denies chest pain Respiratory/Chest Respiratory/Chest: Denies cough or dyspnea Gastrointestinal Gastrointestinal: Reports abdominal pain; Denies diarrhea, nausea or vomiting Genitourinary Genitourinary ED: Reports hematuria Musculoskeletal Musculoskeletal: Denies back pain or myalgias Integumentary Denies rash Neurologic Neurologic: Denies headache(s) Hematologic/Lymphatic Hematologic/Lymphatic: Denies easy bleeding or easy bruising EXAM Physical Exam Const Vital Signs: 01/10/24 23:42 01/11/24 01:10 Temperature 97.2 F L 98.2 F Temperature Source Temporal Pulse Rate 112 H 89 Respiratory Rate 18 18 Blood Pressure 150/81 H 138/78 H Blood Pressure Mean 104 98 Pulse Ox 97 97 Oxygen Delivery Method Room Air Positive well nourished and well developed General Appearance ED: well developed; Negative for pallor HEENT HEENT Narrative: Normocephalic atraumatic Eyes PERRL and EOMs intact bilaterally Neck supple Resp normal respiratory effort and clear to auscultation bilaterally Cardio regular rate and regular rhythm GI normal to inspection, nondistended, normoactive bowel sounds, non-tender, non-distended and no masses GI Narrative: No organomegaly or peritoneal signs noted Auscultation: normoactive bowel sounds Palpation: soft Back/Spine no CVA tenderness Extremity normal to inspection Neuro oriented x3, CN's II-XII intact bilaterally and no sensory deficits noted Sensorium / Orientation: alert Motor Exam: strength 5/5 throughout Psych mental status grossly normal Skin no rashes or lesions noted General Skin Exam: Negative for jaundice or pallor MDM MDM MDM Narrative Medical decision making narrative: Patient presented to the ER mildly hypertensive but otherwise with stable vitals. He was seen just a few days ago secondary to the same event and at that time had the Worthy catheter flushed and basic laboratory studies obtained. Labs revealed no clinically significant findings and after flushing the catheter the Worthy began flowing once again. He states he was doing fine until this evening after getting out of the shower. On exam there are changes consistent with obstruction most likely secondary to clot. I have low concern for infection or acute blood loss anemia or acute kidney injury based on the patient's recent blood work and the length of symptoms this evening. The catheter was removed this time and a new catheter placed. Once the catheter was removed multiple clots followed and once the new catheter was placed urine was clear and draining without any type of issue. Therefore at this time as the patient's catheter is functioning appropriately and based on the short timeframe of obstruction I have low concern for CHRIS and his recent blood work does not suggest that this is an issue and he does not have findings to suggest thrombocytopenia or include blood loss anemia he is otherwise safe for discharge History & Record Review Discussion w/independent historian: Patient and Significant other Discharge Plan Triage Chief Complaint: Worthy C/O ED Provider: Reuben Kirkland Dx/Rx/DC Orders Clinical Impression: Complication, blocked Worthy catheter, Chronic radiation cystitis, Hypertension Instructions: Indwelling Urinary Catheter Dc Prescriptions: No Action terazosin 5 MG capsule 5 mg PO DAILY amlodipine 10 MG tablet 10 mg PO DAILY lisinopril 40 MG tablet 40 mg PO BID A Thru Z Men's Ultimate 8 mg iron- 200 mcg-600 mcg tablet 1 tab PO DAILY Primary Care Provider: Isaiah Han Referrals: Isaiah Han MD [Primary Care Provider] - Zhao Gilliland MD [Med Staff - Active Staff] - Print Language: Citizen Of [place] Disposition Disposition: Home, Self Care Discharge Date/Time: 01/11/24 01:11
[2024-01-11 01:10] VITALS: BP 138/78; PULSE 89; RESP 18; TEMP 36.8; O2SAT 97
== END 2024-01-11 01:11 | disposition home or self-care (01) ==
PROVIDERS: Emergency Provider Emergency Medicine; PCP Family Medicine; Visit Provider Emergency Medicine
DX: T83.091A Other mechanical complication of indwelling urethral catheter, initial encounter (principal); C61 Malignant neoplasm of prostate; X58.XXXA Exposure to other specified factors, initial encounter; N30.40 Irradiation cystitis without hematuria; I10 Essential (primary) hypertension; Z79.899 Other long term (current) drug therapy
CPT/HCPCS: 51702; 99283

== ENCOUNTER 2024-01-11 09:08 | Inpatient (IN) | payer MEDICARE, OTHER, SELFPAY ==
[2024-01-11 09:09] VITALS: BP 127/87; PULSE 132; RESP 20; TEMP 35.9; O2SAT 98; BMI 27.1
--- NOTE | 2024-01-11 09:41 | EDS_ITS ---
HPI History of Present Illness Chief Complaint: Complaint Informant: patient and spouse/S.O. Pain Onset: Today and Yesterday Context: Gradual Onset Timing: Continuous Current Severity: Mild Maximum Severity: Mild Narrative Narrative: 78-year-old male history of prior prostate cancer had a radical prostatectomy done through the [facility]. Then he had radiation treatments for an elevated PSA. He has had a history of radiation cystitis. He had a history of gross hematuria. Has had this cauterized in the past by urology at this facility. He was seen last night because his 20 Argentine Worthy catheter was clotted with blood. They changed to a 22 Argentine Worthy catheter. He has had more bleeding today. He is not on any blood thinners. Prior similar symptoms: Yes Recent Illness/Hospitalization: No PFSH PFSH Medical History Chronic radiation cystitis Worthy catheter in place Wears glasses Cancer Arthritis Non-smoker History of pain when walking History of edema Hypertension Prostate cancer Blood in urine Home Medications ?Medication ?Instructions ?Recorded ?Last Taken ?Type amlodipine 10 mg tablet 10 mg PO DAILY 12/08/18 11/11/23 History lisinopril 40 mg tablet 40 mg PO BID 12/08/18 11/11/23 History terazosin 5 mg capsule 5 mg PO DAILY 12/08/18 11/10/23 History multivit,Ca,min-iron 8 mg-folic 1 tab PO DAILY 11/04/23 11/11/23 History acid 200 mcg-lycopene 600 mcg tablet (A Thru Z Men's Ultimate) Allergy/AdvReac Type Severity Reaction Status Date / Time losartan Allergy Mild Rash Verified 01/10/24 23:42 Sulfa (Sulfonamide Allergy Hives Verified 01/10/24 23:42 Antibiotics) atenolol AdvReac Mild WEAKNESS Verified 01/10/24 23:42 hydrochlorothiazide AdvReac Mild UNKNOWN Verified 01/10/24 23:42 indomethacin (From Indocin) AdvReac Mild GI upset Verified 01/10/24 23:42 Surgical History History of left knee replacement Hx of radical prostatectomy Hx of cystoscopy Hx of colonoscopy Social History household members: spouse housing: house Smoking Status: Never smoker ROS ROS ED ROS Narrative Denies recent illness. Constitutional Constitutional ED: Denies chills or fever(s) Eyes Eyes: Denies blurry vision ENT ENT ED: Denies ear pain Cardiovascular Cardiovascular: Denies chest pain Respiratory/Chest Respiratory/Chest: Denies cough or dyspnea Gastrointestinal Gastrointestinal: Denies abdominal pain Genitourinary Genitourinary ED: Reports hematuria; Denies dysuria or urinary frequency Musculoskeletal Musculoskeletal: Denies arthralgias or back pain Integumentary Denies abscess or rash Neurologic Neurologic: Denies headache(s) Psychiatric Psychiatric: Denies anxiety Endocrine Endocrinology: Denies polydipsia Hematologic/Lymphatic Hematologic/Lymphatic: Denies easy bleeding or lymphadenopathy Allergic/Immunologic Allergic/Immunologic ED: Denies mouth swelling EXAM Physical Exam Narrative Exam Narrative: Well-appearing 78-year-old male. Vital signs stable afebrile he does not was appetizing. He is in no acute distress. He is not tachycardic per vital signs. H EENT exam unremarkable. Neck nontender. Lungs clear. Heart tachycardic no murmur. Abdomen soft, nontender, nondistended normal bowel sounds no peritoneal signs. External exam circumcised male. 22 Argentine Worthy catheter in with dark blood and small amount of urine in the bag. Moving all 4 extremities. Nontender no edema. Neurologically is awake and alert no focal motor deficits. Const Vital Signs: 01/11/24 09:09 01/11/24 11:08 Temperature 96.7 F L Temperature Source Temporal Pulse Rate 132 H 73 Respiratory Rate 20 H 15 Blood Pressure 127/87 H 127/64 H Blood Pressure Mean 100 85 Pulse Ox 98 96 Oxygen Delivery Method Room Air Positive well nourished and well developed; Negative for obese, cachectic, contr actures or unkempt General Appearance ED: well developed and NAD; Negative for unkempt, cachectic or contractures Nutritional Appearance: Negative for cachectic or obese HEENT Reports moist mucous membranes normocephalic and atraumatic; Negative for trauma or tenderness Eyes PERRL and EOMs intact bilaterally Neck no lymphadenopathy, supple and no JVD Resp normal respiratory effort and clear to auscultation bilaterally Effort and Inspection: Negative for retractions or pain with movement Cardio Negative for regular rate Rate: tachycardic GI non-tender, non-distended and no masses Auscultation: normoactive bowel sounds Palpation: soft; Negative for tender or guarding no CVA tenderness Back/Spine no CVA tenderness General Back: Negative for CVA tenderness Cervical Spine: Negative for cervical spine tenderness Thoracic Spine / Upper Back: Negative for thoracic spinal tenderness Lumbar Spine / Lower Back: Negative for lumbar spinal tenderness Extremity normal to inspection General Extremety ED: Negative for edema or pulses abnormal General Extremity: Negative for edema or pulses abnormal Neuro oriented x3, CN's II-XII intact bilaterally and moves all extremities Sensorium / Orientation: alert, oriented to person, oriented to place and oriented to time; Negative for orientation impaired or confused Motor Exam: strength 5/5 throughout Psych mental status grossly normal Appearance: Negative for unkempt Attitude: No agitated Mood & Affect: Negative for depressed or tearful Thought Process: normal thought process Thought Content: normal thought content Skin Lesions: no lesions Rashes: no rashes MDM MDM MDM Narrative Medical decision making narrative: 78-year-old male history of radiation cystitis with gross hematuria. Was seen last night at the Worthy catheter change and was 22 at 22. We will check labs today and his blood count. Check a UA. Will irrigate the Worthy and I will discuss his care with Dr. Harvey Gilliland with urology. Repeat exam patient is doing well at 11:20 AM. His urine is cloudy. Draining but it still blood-tinged. It is better after irrigation. Currently there is no large clots. Blood counts are no significant change. I did speak to Dr. Harvey Gilliland of urology will admit him for possible surgery for cauterization. History & Record Review Discussion w/independent historian: Patient Additional record(s) reviewed:: Prior inpatient record, Prior outpatient record, Prior ED visit and Prior labs Lab Data Attestation: I reviewed the patient's lab results. Lab results narrative: CBC white count 7. H&H of 10.6 31.8 which is patient's baseline anemia. Platelets 243. Chemistry showed gap of 6. BUN of 22 creatinine 1.34. Glucose 97. Urinalysis shows 150 occult blood. No nitrites. No white cells. No bacteria. 50-100 red cells. Labs: Laboratory Results - last 24 hr 01/11/24 01/11/24 09:59 10:20 WBC 7.3 RBC 3.57 L Hgb 10.6 L Hct 31.8 L MCV 89.1 MCH 29.7 MCHC 33.3 RDW Std Deviation 42.0 RDW Coeff of Jerry 12.9 Plt Count 243 MPV 10.1 Immature Gran % (Auto) 0.500 Neut % (Auto) 77.9 H Lymph % (Auto) 7.2 L [place] % (Auto) 9.9 Eos % (Auto) 4.1 Baso % (Auto) 0.4 Absolute Neuts (auto) 5.7 Absolute Lymphs (auto) 0.53 L Nucleated RBC % 0 Sodium 138 Potassium 4.2 Chloride 108 H Carbon Dioxide 24.0 Anion Gap 6 BUN 22 H Creatinine 1.34 H Estim Creat Clear Calc 48.42 Est GFR (MDRD) Af Amer 67 Est GFR (MDRD) Non-Af 55 L BUN/Creatinine Ratio 16.4 Glucose 97 Calcium 9.2 Urine Color Red Urine Clarity Turbid Urine pH 8.[address] 1.015 Urine Protein 500 H Urine Glucose (UA) Normal Urine Ketones 15 H Urine Occult Blood 150 H Urine Nitrite Negative Urine Bilirubin Negative Urine Urobilinogen Normal Ur Leukocyte Esterase Negative Urine RBC 50-100 SEEN Urine WBC 0 SEEN Ur Squamous Epith Cells 0 SEEN Urine Bacteria 0 SEEN Urine Mucus 0 SEEN Discharge Plan Triage Chief Complaint: Complaint ED Provider: Kishore Nicolas Dx/Rx/DC Orders Clinical Impression: Gross hematuria, Chronic radiation cystitis, History of prostatectomy Prescriptions: No Action terazosin 5 MG capsule 5 mg PO DAILY amlodipine 10 MG tablet 10 mg PO DAILY lisinopril 40 MG tablet 40 mg PO BID A Thru Z Men's Ultimate 8 mg iron- 200 mcg-600 mcg tablet 1 tab PO DAILY Primary Care Provider: Isaiah Han Referrals: Isaiah Han MD [Primary Care Provider] - Print Language: Maldivian Disposition Disposition: Acute Care Hospital [facility]
[2024-01-11 10:09] LABS: Absolute Lymphocyte Count 0.53 X10^3/uL (0.83-4.51); Absolute Neutrophil Count 5.7 X10^3/uL (2.0-7.7); Basophil# 0.03 X10^3/uL; Basophil% 0.4 % (0-1); Eosinophils% 4.1 % (0-5); Hematocrit 31.8 % (40-54); Hemoglobin 10.6 g/dL (13.0-16.5); Lymphocyte # 0.53 X10^3/ul (0.83-4.51); Lymphocyte % 7.2 % (19-41); Mean Corp Hgb Conc 33.3 g/dL (32-36); Mean Corpuscular Hgb 29.7 pg (27.0-32.0); Mean Corpuscular Volume 89.1 fL (80-94); Mean Platelet Vol. 10.1 fl (6.2-12.0); Monocyte# 0.73 X10^3/uL; Monocyte% 9.9 % (0-10); NRBC Flagged by Analyzer 0 % (0-5); Neutrophil # 5.71 X10^3/uL (2.7-7.7); Neutrophil % 77.9 % (47-70); POSITIVE DIFFERENTIAL YES; Platelet Count 243 K/mm3 (150-450); RBC Distribution Width CV 12.9 % (11.6-14.6); Red Blood Count 3.57 M/mm3 (4.6-6.2); White Blood Count 7.3 K/mm3 (4.4-11.0)
[2024-01-11 10:23] LABS: Bacteria 0 SEEN /hpf (None Seen); Mucous, Urine 0 SEEN /hpf (<or=2+); Squamous Epithelial Cells - UA 0 SEEN /hpf (0-5); White Blood Cells 0 SEEN /hpf (0-5)
[2024-01-11 10:23] LABS: Anion Gap 6 (5-15); BUN 22 mg/dL (7-18); BUN/Creat Ratio 16.4 RATIO (10-20); Calcium,Total 9.2 mg/dL (8.5-10.1); Chloride 108 mmol/L (98-107); Creatinine, Serum 1.34 mg/dL (0.70-1.30); EST Glomerular Filtration Rate 55 mL/min (>60); Est Glom Filt Rate - Afr Amer 67 mL/min (>60); Estimated Creatinine Clearance 48.42 ml/min; Glucose 97 mg/dL (74-106); Potassium 4.2 mmol/L (3.5-5.1); Sodium Level 138 mmol/L (136-145)
[2024-01-11 10:26] LABS: Color, Urine Red (Yellow); Glucose, Dipstick Normal (Normal); Ketone-Dipstick 15 mg/dl (Negative); Leukocyte Esterase-Dipstick Negative /ul (Negative); Nitrite-Dipstick Negative (Negative); Occult Blood-Urine 150 /ul (Negative); Protein-Dipstick 500 mg/dl (Negative); Specific Gravity, Urine 1.015 (1.002-1.030); Urine Bilirubin Dipstick Negative (Negative); Urine Clarity Turbid (Clear); Urine Urobilinogen Normal (Normal)
[2024-01-11 10:35] LABS: Red Blood Cells-Urine 50-100 SEEN /hpf (0-5)
[2024-01-11 11:08] VITALS: BP 127/64; PULSE 73; RESP 15; O2SAT 96
--- NOTE | 2024-01-11 11:32 | NURSING ---
MED SURG IBRAHIMA GROSS HEMATURIA, HX OF RADIATION CYSTITIS, HX OF PROSTATECTOMY
[2024-01-11 11:42] VITALS: BP 134/75; PULSE 71; RESP 16; TEMP 36.8; O2SAT 95
[2024-01-11 12:56] VITALS: BP 133/79; PULSE 91; RESP 16; TEMP 36.4; O2SAT 97; BMI 26.4
[2024-01-11 15:34] VITALS: BP 122/82; PULSE 73; RESP 18; TEMP 36.6; O2SAT 97
[2024-01-11] MEDS: 0.9% Normal Saline (1000mL) 1,000 ML 50 ML IV (15:37)
[2024-01-11] MEDS: Cefazolin 1 GM/50 ML BAG IV ×2 (15:37→21:42)
[2024-01-11] MEDS: 0.9% Saline Lock 10 ML Syringe IV (15:38)
[2024-01-11 20:07] VITALS: BP 114/72; PULSE 82; RESP 18; TEMP 36.8; O2SAT 97
[2024-01-12] VITALS (11 sets, daily range): BP systolic 107–127; BP diastolic 59–78; PULSE 68–105; RESP 14–20; TEMP 36.3–37.1; O2SAT 92–98; BMI 26.4
--- NOTE | 2024-01-12 05:55 | EKG12_ITS ---
Test Reason : AM EKG Blood Pressure : / mmHG Vent. Rate : 077 BPM Atrial Rate : 077 BPM P-R Int : 210 ms QRS Dur : 082 ms QT Int : 372 ms P-R-T Axes : 024 038 042 degrees QTc Int : 420 ms Sinus rhythm with 1st degree A-V block Otherwise normal ECG When compared with ECG of 22-DEC-2023 08:18, [place] interval has increased Confirmed by JACQUIE HOOK, NEHEMIAS ([id number]), editor magazine STEFAN POLK ([id number]) on 01/16/2024 10:25:18 AM Referred By: IBRAHIMA Confirmed By:CORY DHILLON MD
[2024-01-12] MEDS: Cefazolin 1 GM/50 ML BAG IV ×2 (06:20→14:50)
[2024-01-12 07:27] LABS: Absolute Lymphocyte Count 0.88 X10^3/uL (0.83-4.51); Absolute Neutrophil Count 4.9 X10^3/uL (2.0-7.7); Basophil# 0.04 X10^3/uL; Basophil% 0.6 % (0-1); Eosinophil# 0.45 X10^3/uL; Eosinophils% 6.5 % (0-5); Hematocrit 30.7 % (40-54); Hemoglobin 10.1 g/dL (13.0-16.5); Lymphocyte # 0.88 X10^3/ul (0.83-4.51); Lymphocyte % 12.6 % (19-41); Mean Corp Hgb Conc 32.9 g/dL (32-36); Mean Corpuscular Hgb 29.5 pg (27.0-32.0); Mean Corpuscular Volume 89.8 fL (80-94); Mean Platelet Vol. 10.9 fl (6.2-12.0); Monocyte# 0.63 X10^3/uL; Monocyte% 9.1 % (0-10); NRBC Flagged by Analyzer 0 % (0-5); Neutrophil # 4.93 X10^3/uL (2.7-7.7); Neutrophil % 70.8 % (47-70); Platelet Count 246 K/mm3 (150-450); RBC Distribution Width SD 42.5 fl (35.1-43.9); Red Blood Count 3.42 M/mm3 (4.6-6.2)
--- NOTE | 2024-01-12 07:41 | HP.PCM_ITS ---
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 [facility] Medical History Chronic radiation cystitis Worthy catheter in place Wears glasses Cancer Arthritis Non-smoker History of pain when walking History of edema Hypertension Prostate cancer Blood in urine Home Medications ?Medication ?Instructions ?Recorded ?Last Taken ?Type amlodipine 10 mg tablet 10 mg PO DAILY 12/08/18 01/11/24 History lisinopril 40 mg tablet 40 mg PO BID 12/08/18 01/11/24 History terazosin 5 mg capsule 5 mg PO QPM 12/08/18 01/10/24 History multivit,Ca,min-iron 8 mg-folic 1 tab PO DAILY 11/04/23 01/11/24 History acid 200 mcg-lycopene 600 mcg tablet (A Thru Z Men's Ultimate) Allergy/AdvReac Type Severity Reaction Status Date / Time losartan Allergy Mild Rash Verified 01/10/24 23:42 Sulfa (Sulfonamide Allergy Hives Verified 01/10/24 23:42 Antibiotics) atenolol AdvReac Mild WEAKNESS Verified 01/10/24 23:42 hydrochlorothiazide AdvReac Mild UNKNOWN Verified 01/10/24 23:42 indomethacin (From Indocin) AdvReac Mild GI upset Verified 01/10/24 23:42 Surgical History History of left knee replacement Hx of radical prostatectomy Hx of cystoscopy Hx of colonoscopy Social History household members: spouse housing: house Smoking Status: Never smoker ROS Constitutional Constitutional: Denies chills, fever(s) or malaise Eyes Eyes: Denies blurry vision or change in vision ENT HEENT: Reports none Cardiovascular Cardiovascular: Denies chest pain or palpitations Respiratory/Chest Respiratory/Chest: Denies cough or shortness of breath with exertion Gastrointestinal Gastrointestinal: Denies abdominal pain, constipation or diarrhea Musculoskeletal Musculoskeletal: Denies back pain, joint stiffness or joint swelling Integumentary Integumentary: Denies dry skin, jaundice, lesions or rash Neurologic Neurologic: Denies confusion, syncope or weakness Psychiatric Psychiatric: Reports none; Denies anxiety or depression Endocrine Endocrinology: Denies excessive sweating, fatigue or flushing Hematologic/Lymphatic Hematologic/Lymphatic: Denies anemia, easy bleeding or easy bruising Vital Signs Vital Signs Vital Signs: 01/11/24 09:09 01/11/24 11:08 01/11/24 11:42 Temperature 96.7 F L 98.3 F Temperature Source Temporal Pulse Rate 132 H 73 71 Respiratory Rate 20 H 15 16 Respiratory Effort Blood Pressure 127/87 H 127/64 H 134/75 H Blood Pressure Mean 100 85 94 Blood Pressure Source Blood Pressure Position Blood Pressure Location Pulse Ox 98 96 95 Oxygen Delivery Method Room Air 01/11/24 12:56 01/11/24 15:34 01/11/24 15:35 Temperature 97.6 F L 97.8 F Temperature Source Oral Oral Pulse Rate 91 73 Respiratory Rate 16 18 Respiratory Effort Normal Blood Pressure 133/79 H 122/82 H Blood Pressure Mean 97 95 Blood Pressure Source Monitor Monitor Blood Pressure Position Semi-Fowlers Semi-Fowlers Blood Pressure Location Left Arm Left Arm Pulse Ox 97 97 Oxygen Delivery Method Room Air Room Air 01/11/24 20:07 01/12/24 04:01 Temperature 98.2 F 98 F Temperature Source Oral Oral Pulse Rate 82 74 Respiratory Rate 18 18 Respiratory Effort Blood Pressure 114/72 112/70 Blood Pressure Mean 86 84 Blood Pressure Source Monitor Blood Pressure Position Semi-Fowlers Blood Pressure Location Left Arm Pulse Ox 97 95 Oxygen Delivery Method Room Air Room Air Weight Weight: 83.461 kg Body Mass Index (BMI) 26.4 Physical Exam Const alert and oriented x3 General Appearance: cooperative HEENT normocephalic and head/scalp atraumatic Eyes PERRL and EOMs intact bilaterally Neck supple, no JVD and no carotid bruits Resp normal respiratory effort, normal air movement and clear to auscultation bilaterally Cardio regular rate and no murmurs GI normal to inspection, nondistended, normoactive bowel sounds and soft to palpation Extremity normal capillary refill General Extremity: no tenderness to palpation of joints or extremities; Negative for edema Skin no rashes or lesions noted and no wounds General Skin Exam: no breakdown Neuro CN's II-XII intact bilaterally Psych affect normal Appearance: appropriate Results Lab / Micro Data 01/12/24 06:18 01/11/24 09:59 Labs: Laboratory Results - last 24 hr 01/11/24 09:59: WBC 7.3, RBC 3.57 L, Hgb 10.6 L, Hct 31.8 L, MCV 89.1, MCH 29.7, MCHC 33.3, RDW Std Deviation 42.0, RDW Coeff of Jerry 12.9, Plt Count 243, MPV 10.1, Immature Gran % (Auto) 0.500, Neut % (Auto) 77.9 H, Lymph % (Auto) 7.2 L, [place] % (Auto) 9.9, Eos % (Auto) 4.1, Baso % (Auto) 0.4, Absolute Neuts (auto) 5.7, Absolute Lymphs (auto) 0.53 L, Nucleated RBC % 0, Sodium 138, Potassium 4.2, Chloride 108 H, Carbon Dioxide 24.0, Anion Gap 6, BUN 22 H, Creatinine 1.34 H, Estim Creat Clear Calc 48.42, Est GFR (MDRD) Af Amer 67, Est GFR (MDRD) Non- Af 55 L, BUN/Creatinine Ratio 16.4, Glucose 97, Calcium 9.2 01/11/24 10:20: Urine Color Red, Urine Clarity Turbid, Urine pH 8.0, Ur Specific [place] 1.015, Urine Protein 500 H, Urine Glucose (UA) Normal, Urine Ketones 15 H, Urine Occult Blood 150 H, Urine Nitrite Negative, Urine Bilirubin Negative, Urine Urobilinogen Normal, Ur Leukocyte Esterase Negative, Urine RBC 50-100 SEEN, Urine WBC 0 SEEN, Ur Squamous Epith Cells 0 SEEN, Urine Bacteria 0 SEEN, Urine Mucus 0 SEEN 01/12/24 06:18: WBC 7.0, RBC 3.42 L, Hgb 10.1 L, Hct 30.7 L, MCV 89.8, MCH 29.5, MCHC 32.9, RDW Std Deviation 42.5, RDW Coeff of Jerry 13.0, Plt Count 246, MPV 10.9, Immature Gran % (Auto) 0.400, Neut % (Auto) 70.8 H, Lymph % (Auto) 12.6 L, [place] % (Auto) 9.1, Eos % (Auto) 6.5 H, Baso % (Auto) 0.6, Absolute Neuts (auto) 4.9, Absolute Lymphs (auto) 0.88, Nucleated RBC % 0 Assessment & Plan Assessment/Plan (1) History of prostatectomy: (2) Gross hematuria: PLAN: N.p.o. plan to do cystoscopy and evacuation of clot today and cauterize bleeding hopefully get this stopped (3) Hypertension: (4) Chronic radiation cystitis:
[2024-01-12 07:54] LABS: International Normalized Ratio 1.2
[2024-01-12 07:55] LABS: Partial Thromboplast Time 34.9 Seconds (24.1-36.2)
[2024-01-12] MEDS: Lisinopril 40 MG Tablet PO (08:54)
[2024-01-12] MEDS: amLODIPine 10 MG Tablet PO (08:54)
[2024-01-12] MEDS: DiphenhydrAMINE 25 MG Capsule PO (10:00)
--- NOTE | 2024-01-12 10:45 | CASEMGMT ---
[facility]IR[facility] Assessment Face to Face with patient for initial transition planning/care coordination assessment. RN BREE introduced self and role at [facility], pt voices understanding. Pt is A&Ox4 and is resting comfortably in bed and is calm. Pt at bedside. Care providers, pharmacy, and demographics verified. Admitting dx: Gross Hematuria LACE Strata: 3 PCP: [facility] Specialists: Darshana (U[facility]), Dr. Rola Hall ([facility]) [facility]erred [facility]acy[facility] Insurance: MCR A/B, AET[employer] Prescription Benefit: Yes LNOK: Susi Milan (W) Living Arrangements: Pt lives with his in a single story home with one step to enter with a grab bar for assistance ADLs/IADLs: Ind. 6-Click is 24 Transportation: Pt drives. Pt does not. Pt states that he has plenty of family that is able to provide transportation. DME: BP Monitor. Cane. FWW. Walk in shower with chair. Grab bars. HHC/SNF: Hx with [facility] HH. Denies SNF Pt?s goal: Home Plan: Home with pt and no additional needs once medically ready. Pt denies the need for HHC or OP Tx. Pt denies additional needs or questions at this time. CM to follow. Aminata Sharif RN, CM
--- NOTE | 2024-01-12 12:34 | PCM.PRE.AN2 ---
ASA Classification* ASA Classification ASA Classification: 2 and E Assessment & Plan Anesthesia* Anesthesia Assessment Anesthesia Assessment: Discussed sedation and/or anesthesia options, risks, benefits, and alternatives with patient/parents/legal guardian/POA. Questions invited. The patient/parents/legal guardian/POA seems to understand and agrees to proceed with anesthesia plan. Reviewed the physical assessment, medical history, allergy history and patient home medications list prior to surgery/procedure/anesthetic and documented any changes. Performed airway and anesthesia risk assessments. Anesthesia Type Anesthesia Type: General (see written pre anesthesia record for full assessment) Anesthesia Focused Assessment* Temperature: 98.7 F Pulse Rate: 78 Blood Pressure: 108/71 Respiratory Rate: 16 Pulse Ox: 98 Airway Assessment Mouth opens: >3 cm Mallampati Score: II Focused Labs Anesthesia Preop lab: CBC WBC 7.0 K/mm3 (4.4-11.0) 01/12/24 06:18 RBC 3.42 M/mm3 (4.6-6.2) L 01/12/24 06:18 Hgb 10.1 g/dL (13.0-16.5) L 01/12/24 06:18 Hct 30.7 % (40-54) L 01/12/24 06:18 Plt Count 246 K/mm3 (150-450) 01/12/24 06:18 CHEMISTRY Potassium 4.2 mmol/L (3.5-5.1) 01/11/24 09:59 Sodium 138 mmol/L (136-145) 01/11/24 09:59 BUN 22 mg/dL (7-18) H 01/11/24 09:59 Creatinine 1.34 mg/dL (0.70-1.30) H 01/11/24 09:59 Glucose 97 mg/dL (74-106) 01/11/24 09:59 COAG PT 15.0 SECONDS (11.7-14.9) H 01/12/24 06:18 Pre-Assessment Diagnosis/Proposed Procedure Planned Operative Procedure(s): csto Anesthesia History Anesthesia 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 When Was Last Pacemaker Check QUESTION #4 FULL TEXT: You/Your Family Experience fever (hyperthermia) with Anesthesia Last Oral Intake Last Oral intake: Last Oral Intake NPO since 00:00 01/12/24 08:41 Meds taken in AM with sips of Yes 01/12/24 08:41 water? Meds patient instructed to Amlodipine, Lisinopril, 01/12/24 08:41 take am of surgery Benadryl PONV PONV - slat basket maker helper machine: PONV - slat basket maker helper machine Female HX of Motion Sickness HX of N/V After Surgery Non-Smoker Duration of Surgery greater than 60 minutes Number of Risk Factors PONV Score Height & Weight Height & Weight: Anesthesia: Height & Weight Height 5 ft 10 in 01/12/24 08:41 Weight: 83.461 kg 01/12/24 08:41 Body Mass Index (BMI) 26.4 01/12/24 08:41 Respiratory Assessment Respiratory Assessment - slat basket maker helper machine: Respiratory Tract Infection Hx - slat basket maker helper machine Hx Respiratory Tract Infection No 01/12/24 08:41 STOP Sleep Apnea STOP Sleep Apnea - slat basket maker helper machine: STOP Sleep Apnea - slat basket maker helper machine Hx Hypertension Yes 01/11/24 12:56 Hx Sleep Apnea No 01/11/24 12:56 CPAP No 01/11/24 12:56 BIPAP Do you snore loudly (louder No 01/11/24 12:56 than talking or can be heard Do you often feel tired/ No 01/11/24 12:56 fatigued/ sleepy during daytime? Has anyone observed you stop No 01/11/24 12:56 breathing during sleep? STOP Results Negative 01/11/24 12:56 QUESTION #5 FULL TEXT : Do you snore loudly (louder than talking or can be heard through closed doors)? 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 Specify any problems Hx of Preganancy in last 3 N/A 01/11/24 12:56 Months Nurse Filling Out Transfusion RKARPER 01/11/24 12:56 & Questions: Date: 01/11/24 01/11/24 12:56 Time: 13:00 01/11/24 12:56 Patient unable to answer at this time (ie. confused, unrespo /Reproduction History /Reproductive History - slat basket maker helper machine: /Reproductive Hx- slat basket maker helper machine Hx Now No 01/12/24 08:41 Gestational Age (in weeks): EDC: Hx Hx Para Hx Section SAB No 01/12/24 08:41 Active Medications Active Medications: Current Medications Generic Name Dose Route Start Last Admin Trade Name Freq PRN Reason Stop Dose Admin Acetaminophen 500 mg 01/11/24 14:15 Acetaminophen 500 Mg Tablet PO Q4H PRN PRN Pain 1-10 or Fever Amlodipine Besylate 10 mg 01/12/24 10:00 01/12/24 08:54 Amlodipine 10 Mg Tablet PO 10 mg DAILY CYNTHIA Administration Protocol Doxazosin Mesylate 4 mg 01/12/24 21:00 Doxazosin 4 Mg Tablet PO QPM CYNTHIA Sodium Chloride 250 mls @ 15 mls/hr 01/11/24 12:46 IV .[id number] PRN Additional IVPB Infusion Sodium Chloride 250 mls @ 15 mls/hr 01/11/24 12:46 IV .[id number] PRN Saline Flush Sodium Chloride 1,000 mls @ 50 mls/hr 01/11/24 14:15 01/12/24 11:03 IV Not Given .Q20H CYNTHIA Cefazolin Sodium 1 gm in 50 mls @ 100 mls/hr 01/11/24 14:20 01/12/24 07:00 IV Infused Q8 CYNTHIA Infusion Lisinopril 40 mg 01/12/24 10:00 01/12/24 08:54 Lisinopril 40 Mg Tablet PO 40 mg BID CYNTHIA Administration Protocol Morphine Sulfate 2 mg 01/11/24 14:15 Morphine 2 Mg/Ml Syringe IV Q2H PRN PRN Pain Score 6-10 Ondansetron HCl 4 mg 01/11/24 14:15 Ondansetron 4 Mg/2 Ml Vial IV Q6H PRN PRN NAUSEA/VOMITING Sodium Chloride 10 - 40 ml 01/11/24 12:46 01/11/24 15:38 0.9% Saline Lock 10 Ml Syringe IV 10 ml UD PRN Administration SALINE FLUSH PFSH Medical History Chronic radiation cystitis Worthy catheter in place Wears glasses Cancer Arthritis Non-smoker History of pain when walking History of edema Hypertension Prostate cancer Blood in urine Home Medications ?Medication ?Instructions ?Recorded ?Last Taken ?Type amlodipine 10 mg tablet 10 mg PO DAILY 12/08/18 01/11/24 History lisinopril 40 mg tablet 40 mg PO BID 12/08/18 01/11/24 History terazosin 5 mg capsule 5 mg PO QPM 12/08/18 01/10/24 History multivit,Ca,min-iron 8 mg-folic 1 tab PO DAILY 11/04/23 01/11/24 History acid 200 mcg-lycopene 600 mcg tablet (A Thru Z Men's Ultimate) Allergy/AdvReac Type Severity Reaction Status Date / Time losartan Allergy Mild Rash Verified 01/10/24 23:42 Sulfa (Sulfonamide Allergy Hives Verified 01/10/24 23:42 Antibiotics) atenolol AdvReac Mild WEAKNESS Verified 01/10/24 23:42 hydrochlorothiazide AdvReac Mild UNKNOWN Verified 01/10/24 23:42 indomethacin (From Indocin) AdvReac Mild GI upset Verified 01/10/24 23:42 Surgical History History of left knee replacement Hx of radical prostatectomy Hx of cystoscopy Hx of colonoscopy Social History household members: spouse housing: house Smoking Status: Never smoker Review of Systems (Anesthesia) ROS Narrative System reviewed and no additional complaints, except as documented.
[2024-01-12] MEDS: Cefazolin 2 GM in 0.9% Normal Saline (100mL Bag) 100 ML IV (13:02)
--- NOTE | 2024-01-12 13:35 | DCINST_ITS ---
Discharge Instructions Diet Discharge Diet: No restrictions Activity Discharge Activity: Return to Normal Activity and May Not Drive (while taking narcotic pain medications.) Dressing / Incision Call your doctor if you observe: Fever of 101 or Higher Follow Up Care Please Follow Up With: Zhao Gilliland MD When: Call [phone] for an appointment Test Results: Test results from this visit will be discussed in further detail at your follow- up appointment, if applicable. Discharge Plan Admission Admit Date/Time: 01/11/24 11:30 Primary Reason for Your Visit: cauterize bleeding Attending Provider: Zhao Gilliland Primary Care Provider: Isaiah Han Discharge Orders/Prescriptions Prescriptions: Continued terazosin 5 MG capsule 5 mg PO QPM amlodipine 10 MG tablet 10 mg PO DAILY lisinopril 40 MG tablet 40 mg PO BID A Thru Z Men's Ultimate 8 mg iron- 200 mcg-600 mcg tablet 1 tab PO DAILY Referrals / Follow Up: Isaiah Han MD [Primary Care Provider] - Disposition Disposition (needs filled in before D/C Order can be placed): Home, Self Care
--- NOTE | 2024-01-12 13:35 | PCM.OPRPT ---
Report of Operation Date of Procedure: 01/12/24 Pre-Operative Diagnosis: Recurrent bleeding from the bladder neck Post-Operative Diagnosis: The same Surgery/Procedure Performed:: Cystoscopy evacuation of few blood clots and cauterization of bleeding in the bladder neck Description of Surgical Findings:: This is a 78-year-old male who unfortunate has a very difficult problem as a history of a radical prostatectomy and had biochemical recurrence and underwent salvage radiation therapy all his treatments were done at the 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 He is also went back to the clinic clinic to get a second opinion and they are talking about doing a reconstructive surgery in his bladder neck but they wanted to wait until the bleeding stops which may not be possible . Patient was taken back to the operating room after smooth induction of anesthesia he was placed in dorsolithotomy position. The left side the bladder with a 21 [place] rigid cystourethroscope used a 30 degree and 70 degree lens basically the entire length of the urethra is clear of any scar tissues or problems in the prostate absence and he has a bladder neck at this point it is that open and is a lot of scar tissue around the bladder neck it is very friable tissues around the bladder neck that bleeds quite easily a course when he got inside the bladder there was no active bleeding from any spot or location there is a few blood clots in the back of the bladder these were evacuated out and then just looking at the bladder neck with a 70 and 30 degree lens can see some areas that were bleeding easily I would then cauterize around the bladder neck circumferentially since any more active bleeding but even with me cauterizing his bladder neck very likely that he is citlali continue to bleed until he has he has this scar tissue resected and removed. So after cauterizing the bladder neck and put a 22 Citizen [place] catheter with 30 cc in the balloon and he is anesthetic was reversed to go home today with a catheter he should follow-up with a [facility] to discuss revision of the bladder neck I am afraid that even with my intervention today his bleeding will probably continue with the bladder neck the family was explained this that this is can be chronic leading off-and-on and I do not think to be able to be controlled with the simple procedure I did today. This is very just a temporizing procedure for the time being. Surgeon: Zhao Gilliland Type of Anesthesia: General Drains: perdomo 22 fr. Admit VTE Documentation VTE Present on Admission: No VTE Mechan Device Prophylaxis: SCD's VTE Pharm Prophylaxis ordered?: No
--- NOTE | 2024-01-12 13:46 | PCM.POST.ANE ---
Anesthesia: Postop Eval I Current Vital Signs Temperature: 98 F Pulse Rate: 101 Blood Pressure: 107/61 Respiratory Rate: 18 Pulse Ox: 96 Assessment Airway patent: Yes Spontaneous unlabored respirations: Yes nausea: No Vomiting: No Anesthesia Complication: No Fluid Hydration Crystalloid volume administer (ml): 500 Total IV fluid infused: 500 Progress Note Anesthesia document: Postop Eval 1 completed: Yes
[2024-01-12] MEDS: 0.9% Normal Saline (1000mL) 1,000 ML 50 ML IV (14:51)
--- NOTE | 2024-01-12 15:10 | POSTOPAN2_ITS ---
Anesthesia Postop Eval I Sum Postop Eval Completion status Anesthesia document: Postop Eval 1 completed: Yes Anesthesia Postop Eval I Summary Anesthesia Postop Eval I Summary: Anesthesia Postop Eval I: Assessment Summary Airway patent Yes 01/12/24 13:47 BRINE ROOM [email or web address] Spontaneous unlabored Yes 01/12/24 13:47 BRINE ROOM LABORER.CSIR respirations Mental status nausea No 01/12/24 13:47 BRINE ROOM [email or web address].CSIR Vomiting No 01/12/24 13:47 BRINE ROOM LABORER.CSIR Anesthesia Postop Eval I: Fluid Summary Crystalloid volume administer 500 01/12/24 13:47 BRINE ROOM LABORER.CSIR (ml) Colloids volume administered ( ml) Blood Product volume administered (ml) Total IV fluid infused 500 01/12/24 13:47 BRINE ROOM LABORER.CSIR Anesthesia Postop Eval I: Summary Notes Anesthesia Complication No 01/12/24 13:47 BRINE ROOM LABORER.CSIR Anesthesia Complication Comment: Post-operative progress note Anesthesia: Postop Eval II Evaluation Mental status: Awake Pain Level: 0 nausea: No Vomiting: No
--- NOTE | 2024-01-12 15:10 | PCM.POSTANE2 ---
Anesthesia Postop Eval I Sum Postop Eval Completion status Anesthesia document: Postop Eval 1 completed: Yes Anesthesia Postop Eval I Summary Anesthesia Postop Eval I Summary: Anesthesia Postop Eval I: Assessment Summary Airway patent Yes 01/12/24 13:47 REFRIGERATION PLANT CORK INSULATOR.CSIR Spontaneous unlabored Yes 01/12/24 13:47 REFRIGERATION PLANT CORK INSULATOR.CSIR respirations Mental status nausea No 01/12/24 13:47 REFRIGERATION PLANT CORK INSULATOR.CSIR Vomiting No 01/12/24 13:47 REFRIGERATION PLANT CORK INSULATOR.CSIR Anesthesia Postop Eval I: Fluid Summary Crystalloid volume administer 500 01/12/24 13:47 REFRIGERATION PL[employer] CORK INSULATOR.CSIR (ml) Colloids volume administered ( ml) Blood Product volume administered (ml) Total IV fluid infused 500 01/12/24 13:47 REFRIGERATION PLANT CORK INSULATOR.CSIR Anesthesia Postop Eval I: Summary Notes Anesthesia Complication No 01/12/24 13:47 REFRIGERATION PLANT CORK INSULATOR.CSIR Anesthesia Complication Comment: Post-operative progress note Anesthesia: Postop Eval II Evaluation Mental status: Awake Pain Level: 0 nausea: No Vomiting: No
== END 2024-01-12 17:25 | disposition home or self-care (01) | DRG 696 ==
LOC: ED 11:29 → MS3 11:35
PROVIDERS: Anesthesiology; Admitting Provider Urology; Emergency Provider Emergency Medicine; PCP Family Medicine; Visit Provider Urology
PROC: 0TCC8ZZ Extirpation of Matter from Bladder Neck, Via Natural or Artificial Opening Endoscopic (ICD-10-PCS; CPT 52214; principal; 2024-01-12 13:20)
DX: R31.0 Gross hematuria (principal); N30.41 Irradiation cystitis with hematuria; I10 Essential (primary) hypertension; Z79.1 Long term (current) use of non-steroidal anti-inflammatories (NSAID); Y84.2 Radiological procedure and radiotherapy as the cause of abnormal reaction of the patient, or of later complication, without mention of misadventure at the time of the procedure; Z85.46 Personal history of malignant neoplasm of prostate
CPT/HCPCS: 36415; 80048; 81001; 85025; 85610; 85730; 93005; 99183; 99282; 99283; J7030; J7120; A4216; G0277; J2405

== ENCOUNTER 2024-01-14 04:19 | Inpatient (IN) | payer MEDICARE, OTHER, SELFPAY ==
[2024-01-14] VITALS (7 sets, daily range): BP systolic 94–178; BP diastolic 61–92; PULSE 76–125; RESP 16–18; TEMP 36.2–36.8; O2SAT 95–99; BMI 26.9; BMI 28.5
[2024-01-14] MEDS: Acetaminophen 500 MG Tablet 1000 MG PO (06:17)
[2024-01-14] MEDS: Lidocaine Jelly 2% 20 ML Syringe (URO-JET) 1 APPLIC TOPICAL (06:18)
--- NOTE | 2024-01-14 07:26 | EX.ED.DYSGE1 ---
HPI History of Present Illness Chief Complaint: Complaint Informant: patient and spouse/S.O. Narrative Narrative: Patient is a 78-year-old male with history of prostate cancer and radiation cystitis. He has been in the ER multiple times recently secondary to hematuria and a blocked Worthy catheter. He was recently admitted and had a cystoscopy done by urology in the hopes of preventing any type of rebleed. Patient states that this evening he began developing bloody urine and then felt like the catheter stopped flowing and he developed pressure consistent with his previous obstructions. He denies any history of bleeding disorder or blood thinner use but with the recurrent symptoms comes in for evaluation [facility] Medical History Hearing loss, left Hearing loss, right Anxiety Depression Chronic indwelling Worthy catheter TIA (transient ischemic attack) Chronic radiation cystitis Worthy catheter in place Wears glasses Cancer Arthritis Non-smoker History of pain when walking History of edema Hypertension Prostate cancer Blood in urine Home Medications ?Medication ?Instructions ?Recorded ?Last Taken ?Type amlodipine 10 mg tablet 10 mg PO DAILY BLOOD PRESSURE 12/08/18 01/13/24 History lisinopril 40 mg tablet 40 mg PO BID BLOOD PRESSURE 12/08/18 01/13/24 History terazosin 5 mg capsule 5 mg PO QPM BLOOD PRESSURE 12/08/18 01/13/24 History multivit,Ca,min-iron 8 mg-folic 1 tab PO DAILY SUPPLEMENT 11/04/23 01/13/24 History acid 200 mcg-lycopene 600 mcg tablet (A Thru Z Men's Ultimate) Allergy/AdvReac Type Severity Reaction Status Date / Time losartan Allergy Mild Rash Verified 01/14/24 04:23 Sulfa (Sulfonamide Allergy Hives Verified 01/14/24 04:23 Antibiotics) atenolol AdvReac Mild WEAKNESS Verified 01/14/24 04:23 hydrochlorothiazide AdvReac Mild UNKNOWN Verified 01/14/24 04:23 indomethacin (From Indocin) AdvReac Mild GI upset Verified 01/14/24 04:23 Surgical History History of left knee replacement Hx of radical prostatectomy Hx of cystoscopy Hx of colonoscopy Social History household members: spouse housing: house Smoking Status: Never smoker ROS ROS ED Constitutional Constitutional ED: Denies chills or fever(s) ENT ENT ED: Denies sore throat Cardiovascular Cardiovascular: Denies chest pain Respiratory/Chest Respiratory/Chest: Denies cough or dyspnea Gastrointestinal Gastrointestinal: Reports abdominal pain; Denies diarrhea, nausea or vomiting Genitourinary Genitourinary ED: Reports hematuria Musculoskeletal Musculoskeletal: Denies back pain Integumentary Denies rash Neurologic Neurologic: Denies headache(s) Hematologic/Lymphatic Hematologic/Lymphatic: Denies easy bleeding or easy bruising EXAM Physical Exam Const Vital Signs: 01/14/24 04:20 01/14/24 07:15 Temperature 97.1 F L Temperature Source Temporal Pulse Rate 125 H 76 Respiratory Rate 18 18 Blood Pressure 178/89 H 137/85 H Blood Pressure Mean 118 102 Pulse Ox 95 98 Oxygen Delivery Method Room Air Room Air Positive well nourished and well developed General Appearance ED: well developed; Negative for pallor HEENT HEENT Narrative: Normocephalic Eyes PERRL and EOMs intact bilaterally General Eye ED: Negative for pale conjunctiva or scleral icterus Neck supple Resp normal respiratory effort and clear to auscultation bilaterally Cardio regular rate and regular rhythm GI non-distended GI Narrative: Mild pain with palpation in the suprapubic/lower midline abdomen with faint organomegaly noted; most consistent with a distended bladder. The remainder of the abdomen is soft and nontender with normal active bowel sounds Auscultation: normoactive bowel sounds Palpation: soft Narrative: Worthy catheter in place without blood or urine or discharge leaking around the urethral meatus. No testicular swelling or masses. No overlying soft tissue changes to suggest Amber's gangrene Back/Spine no CVA tenderness Extremity normal to inspection Neuro oriented x3, CN's II-XII intact bilaterally and no sensory deficits noted Sensorium / Orientation: alert Motor Exam: strength 5/5 throughout Psych mental status grossly normal Skin no rashes or lesions noted General Skin Exam: Negative for jaundice or pallor MDM MDM MDM Narrative Medical decision making narrative: Patient arrived to the ER hypertensive and slightly tachycardic. He had been seen recently and had basic lab work done so I felt no need for repeat imaging or laboratory studies. His history and exam is consistent with blood clots obstructing his Worthy catheter. It was felt that this would need persistent irrigation to help resolve the clotting so the catheter was removed and a three-way Worthy catheter was placed. Continuous irrigation was begun. This did help resolve the obstruction and reduce the bleeding once irrigation stopped there was return of dark red blood once again indicating active bleeding. Based on the persistent bleeding and the fact that his catheter seems to clot once irrigation has completed I do not feel he is safe for discharge as his catheter will most likely clot once again at home. Therefore I contacted urology who does agree to admit the patient at this time for continuous irrigation and further management. History & Record Review Discussion w/independent historian: Patient and Significant other Management Discussion w/another healthcare provider: Assistant Finance Manager Discharge Plan Dx/Rx/DC Orders Clinical Impression: Chronic radiation cystitis, Gross hematuria, Hypertension, Complication, blocked Worthy catheter Disposition Disposition: Acute Care Hospital [facility] Discharge Date/Time: 01/14/24 07:59
[2024-01-14 07:58] LABS: Anion Gap 6 (5-15); BUN 20 mg/dL (7-18); BUN/Creat Ratio 16.9 RATIO (10-20); Calcium,Total 8.8 mg/dL (8.5-10.1); Chloride 110 mmol/L (98-107); Creatinine, Serum 1.18 mg/dL (0.70-1.30); EST Glomerular Filtration Rate 64 mL/min (>60); Est Glom Filt Rate - Afr Amer 77 mL/min (>60); Estimated Creatinine Clearance 54.99 ml/min; Glucose 103 mg/dL (74-106); Potassium 4.4 mmol/L (3.5-5.1); Sodium Level 139 mmol/L (136-145)
[2024-01-14 08:04] LABS: Absolute Lymphocyte Count 0.72 X10^3/uL (0.83-4.51); Absolute Neutrophil Count 4.8 X10^3/uL (2.0-7.7); Basophil# 0.03 X10^3/uL; Basophil% 0.5 % (0-1); Eosinophil# 0.38 X10^3/uL; Eosinophils% 5.7 % (0-5); Hematocrit 29.7 % (40-54); Hemoglobin 9.9 g/dL (13.0-16.5); Lymphocyte # 0.72 X10^3/ul (0.83-4.51); Lymphocyte % 10.8 % (19-41); Mean Corp Hgb Conc 33.3 g/dL (32-36); Mean Corpuscular Hgb 29.6 pg (27.0-32.0); Mean Corpuscular Volume 88.9 fL (80-94); Mean Platelet Vol. 10.2 fl (6.2-12.0); Monocyte# 0.65 X10^3/uL; Monocyte% 9.8 % (0-10); NRBC Flagged by Analyzer 0 % (0-5); Neutrophil # 4.82 X10^3/uL (2.7-7.7); Neutrophil % 72.4 % (47-70); Platelet Count 281 K/mm3 (150-450); RBC Distribution Width CV 13.1 % (11.6-14.6); RBC Distribution Width SD 42.7 fl (35.1-43.9); Red Blood Count 3.34 M/mm3 (4.6-6.2); White Blood Count 6.7 K/mm3 (4.4-11.0)
[2024-01-14 08:44] LABS: International Normalized Ratio 1.2; Prothrombin Time (Protime)PT. 15.2 SECONDS (11.7-14.9)
[2024-01-14 08:46] LABS: Partial Thromboplast Time 34.9 Seconds (24.1-36.2)
[2024-01-14] MEDS: Lisinopril 40 MG Tablet PO ×2 (09:36→21:32)
[2024-01-14] MEDS: Multivitamins,Ther W-Minerals Tablet 1 TABLET PO (09:37)
[2024-01-14] MEDS: amLODIPine 10 MG Tablet PO (09:37)
--- NOTE | 2024-01-14 12:12 | HP.PCM_ITS ---
HPI - General General Date of Admission: 01/14/24 Date of Service: 01/14/24 Chief Complaint: Recurrent bleeding from the bladder HPI Narrative BARBARA PEÑA, is a 78 M who presents again to the emergency room, he is a patient who had his prostate removed by the [facility] and then also had radiation therapy done at the [facility] he had been following with me for several years after all these treatments and had been doing fairly well but unfortunately then started bleeding and had to have his bladder neck cauterized about a year ago or so and then from there he developed a severe bladder neck contracture he then had that this dilated and the catheter put in and then he has been bleeding from his bladder neck ever since then off-and-on recently went back to the [facility] and they were talking about doing surgery on his bladder neck to do a reconstructive surgery but they told the patient that he needs to have his bleeding controlled first so he has been trying to have hyperbaric oxygenation treatments done to try to improve the tissue in the area but has been having severe bleeding off-and-on with a catheter that has not been able to get his hyperbaric oxygenation treatments done. I just took him to surgery just the other day for cystoscopy and cauterization of his bladder neck to control some bleeding that did stop intervention and then he went home but I was avoid afraid that this would not last very long since the tissues were very friable and he returns now again with more bleeding from his bladder neck at this point I am not really sure what else to offer the patient regarding continue with continuous bladder irrigation probably give a call on Tuesday to [facility] and see if they will accept him as a patient for transfer as him running out of options as to what to do to help stop his bleeding from his bladder neck. For now we will continue with CBI irrigate manually as necessary. [facility] Medical History Hearing loss, left Hearing loss, right Anxiety Depression Chronic indwelling Worthy catheter TIA (transient ischemic attack) Chronic radiation cystitis Worthy catheter in place Wears glasses Cancer Arthritis Non-smoker History of pain when walking History of edema Hypertension Prostate cancer Blood in urine Home Medications ?Medication ?Instructions ?Recorded ?Last Taken ?Type amlodipine 10 mg tablet 10 mg PO DAILY BLOOD PRESSURE 12/08/18 01/13/24 History lisinopril 40 mg tablet 40 mg PO BID BLOOD PRESSURE 12/08/18 01/13/24 History terazosin 5 mg capsule 5 mg PO QPM BLOOD PRESSURE 12/08/18 01/13/24 History multivit,Ca,min-iron 8 mg-folic 1 tab PO DAILY SUPPLEMENT 11/04/23 01/13/24 History acid 200 mcg-lycopene 600 mcg tablet (A Thru Z Men's Ultimate) Allergy/AdvReac Type Severity Reaction Status Date / Time losartan Allergy Mild Rash Verified 01/14/24 04:23 Sulfa (Sulfonamide Allergy Hives Verified 01/14/24 04:23 Antibiotics) atenolol AdvReac Mild WEAKNESS Verified 01/14/24 04:23 hydrochlorothiazide AdvReac Mild UNKNOWN Verified 01/14/24 04:23 indomethacin (From Indocin) AdvReac Mild GI upset Verified 01/14/24 04:23 Surgical History History of left knee replacement Hx of radical prostatectomy Hx of cystoscopy Hx of colonoscopy Social History household members: spouse housing: house Smoking Status: Never smoker ROS Constitutional Constitutional: Denies chills, fever(s) or malaise Eyes Eyes: Denies blurry vision or change in vision ENT HEENT: Reports none Cardiovascular Cardiovascular: Denies chest pain or palpitations Respiratory/Chest Respiratory/Chest: Denies cough or shortness of breath with exertion Gastrointestinal Gastrointestinal: Denies abdominal pain, constipation or diarrhea Musculoskeletal Musculoskeletal: Denies back pain, joint stiffness or joint swelling Integumentary Integumentary: Denies dry skin, jaundice, lesions or rash Neurologic Neurologic: Denies confusion, syncope or weakness Psychiatric Psychiatric: Reports none; Denies anxiety or depression Endocrine Endocrinology: Denies excessive sweating, fatigue or flushing Hematologic/Lymphatic Hematologic/Lymphatic: Denies anemia, easy bleeding or easy bruising Vital Signs Vital Signs Vital Signs: 01/14/24 04:20 01/14/24 07:15 01/14/24 07:44 Temperature 97.1 F L Temperature Source Temporal Pulse Rate 125 H 76 Pulse Strength Respiratory Rate 18 18 Respiratory Effort Respiratory Depth Respiratory Pattern Blood Pressure 178/89 H 137/85 H Blood Pressure Mean 118 102 Blood Pressure Source Blood Pressure Position Blood Pressure Location Pulse Ox 95 98 Oxygen Delivery Method Room Air Room Air Room Air 01/14/24 07:57 01/14/24 08:55 01/14/24 08:55 Temperature 97.7 F L 97.8 F Temperature Source Oral Pulse Rate 79 90 Pulse Strength Respiratory Rate 16 16 Respiratory Effort Normal Respiratory Depth Normal Respiratory Pattern Normal Blood Pressure 121/77 H 124/78 H Blood Pressure Mean 91 93 Blood Pressure Source Blood Pressure Position Blood Pressure Location Pulse Ox 98 99 Oxygen Delivery Method Room Air Room Air 01/14/24 08:55 01/14/24 09:52 01/14/24 11:15 Temperature 97.8 F 97.5 F L Temperature Source Oral Oral Pulse Rate 90 85 Pulse Strength Normal (2+) Respiratory Rate 16 16 Respiratory Effort Respiratory Depth Respiratory Pattern Blood Pressure 124/78 H 103/63 Blood Pressure Mean 93 76 Blood Pressure Source Monitor Monitor Blood Pressure Position Semi-Fowlers Semi-Fowlers Blood Pressure Location Right Arm Right Arm Pulse Ox 99 95 Oxygen Delivery Method Room Air Room Air Weight Weight: 87.468 kg Body Mass Index (BMI) 28.5 Physical Exam Const alert and oriented x3 General Appearance: cooperative HEENT normocephalic, head/scalp atraumatic, EAC's normal and TM's normal bilaterally Eyes PERRL and EOMs intact bilaterally Pupil: sluggish Neck no lymphadenopathy, supple and no JVD General: trachea midline Lymph Lymphatic: no lymphadenopathy noted, lymphedema and lymphadenopathy Resp normal respiratory effort, normal air movement and clear to auscultation bilaterally Cardio regular rate, regular rhythm and peripheral pulses 2+ throughout GI soft to palpation, non-tender and non-distended Extremity normal capillary refill and no clubbing, cyanosis or edema General Extremity: no tenderness to palpation of joints or extremities Skin no rashes or lesions noted General Skin Exam: turgor normal Lesions: no lesions Rashes: no rashes Neuro CN's II-XII intact bilaterally Speech: speech normal Motor Exam: strength 5/5 throughout; Negative for general weakness Psych thought process normal, cooperative and affect normal Appearance: appropriate Results Lab / Micro Data 01/14/24 07:38 01/14/24 07:38 Labs: Laboratory Results - last 24 hr 01/14/24 07:38: WBC 6.7, RBC 3.34 L, Hgb 9.9 L, Hct 29.7 L, MCV 88.9, MCH 29.6, MCHC 33.3, RDW Std Deviation 42.7, RDW Coeff of Jerry 13.1, Plt Count 281, MPV 10.2, Immature Gran % (Auto) 0.800, Neut % (Auto) 72.4 H, Lymph % (Auto) 10.8 L, [place] % (Auto) 9.8, Eos % (Auto) 5.7 H, Baso % (Auto) 0.5, Absolute Neuts (auto) 4.8, Absolute Lymphs (auto) 0.72 L, Nucleated RBC % 0, PT 15.2 H, INR 1.2, APTT 34.9, Sodium 139, Potassium 4.4, Chloride 110 H, Carbon Dioxide 23.0, Anion Gap 6, BUN 20 H, Creatinine 1.18, Estim Creat Clear Calc 54.99, Est GFR (MDRD) Af Amer 77, Est GFR (MDRD) Non-Af 64, BUN/Creatinine Ratio 16.9, Glucose 103, Calcium 8.8 Assessment & Plan Assessment/Plan (1) Gross hematuria: PLAN: Continue with bladder irrigation hopefully the bleeding will stop on its own we will try some alum irrigation as well. (2) Soft tissue radionecrosis:
--- NOTE | 2024-01-14 12:21 | PCM.DC ---
Discharge Instructions Diet Discharge Diet: No restrictions and Light diet - advance as tolerated Activity Discharge Activity: Return to Normal Activity Dressing / Incision Call your doctor if your incision/area has: Continuous Slow Oozing Catheter: Worthy to leg bag and Worthy to large bag Drain: [place] Follow Up Care Please Follow Up With: Zhao Gilliland MD When: call for appt. Test Results: Test results from this visit will be discussed in further detail at your follow-up appointment, if applicable. Discharge Plan Admission Admit Date/Time: 01/14/24 08:31 Primary Reason for Your Visit: Recurrent bleeding from the bladder neck Attending Provider: Zhao Gilliland Primary Care Provider: Isaiah Han Discharge Orders/Prescriptions Prescriptions: Continued terazosin 5 MG capsule 5 mg PO QPM amlodipine 10 MG tablet 10 mg PO DAILY lisinopril 40 MG tablet 40 mg PO BID A Thru Z Men's Ultimate 8 mg iron- 200 mcg-600 mcg tablet 1 tab PO DAILY Referrals / Follow Up: Isaiah Han MD [Primary Care Provider] -
[2024-01-14] MEDS: Doxazosin 4 MG Tablet PO (21:32)
[2024-01-15] VITALS (12 sets, daily range): BP systolic 95–141; BP diastolic 62–75; PULSE 80–94; RESP 16–28; TEMP 36–36.9; O2SAT 95–101; BMI 28.4
--- NOTE | 2024-01-15 10:00 | PCM.PN.GU ---
Subjective Subjective 78-year-old male with bleeding from the bladder neck Worthy catheter is in place and bleeding is stopped wearing on slow continuous irrigation we will continue with this patient is were wondering about suprapubic catheter I explained to the patient that suprapubic catheter will not stop bleeding I do not have any plans to do that right now once the bleeding stopped and we can consider doing a suprapubic catheter as an outpatient once the bleeding is stopped. Objective Data Objective Data Vital Signs: Vital Signs Temp Pulse Resp BP Pulse Ox O2 Del Method 98.1 F 80 18 105/64 96 Room Air 01/15/24 08:45 01/15/24 08:45 01/15/24 08:45 01/15/24 08:45 01/15/24 08:45 01/15/24 08:45 Oxygen Delivery Method Room Air Weight: 87.468 kg Body Mass Index (BMI) 28.5 Intake & Output: Intake and Output for Last 24 Hours 01/13/24 01/14/24 01/15/24 23:59 23:59 23:59 Intake Total 1200 / 1200 200 / 200 Output Total 73250 / 29918 625 / 625 Balance -28203 / -12622 -425 / -425 Lab / Micro Data 01/14/24 07:38 01/14/24 07:38
[2024-01-15] MEDS: Multivitamins,Ther W-Minerals Tablet 1 TABLET PO (14:03)
[2024-01-15] MEDS: amLODIPine 10 MG Tablet PO (14:03)
--- NOTE | 2024-01-15 17:14 | NURSING ---
attempt to call Dr cho @ [facility] unsuccessful/no answer
--- NOTE | 2024-01-15 17:42 | PCM.PRE.AN2 ---
ASA Classification* ASA Classification ASA Classification: 2 and E Assessment & Plan Anesthesia* Anesthesia Assessment Anesthesia Assessment: Discussed sedation and/or anesthesia options, risks, benefits, and alternatives with patient/parents/legal guardian/POA. Questions invited. The patient/parents/legal guardian/POA seems to understand and agrees to proceed with anesthesia plan. Reviewed the physical assessment, medical history, allergy history and patient home medications list prior to surgery/procedure/anesthetic and documented any changes. Performed airway and anesthesia risk assessments. Anesthesia Type Anesthesia Type: General History Source History Obtained from:: Patient, Chart and Significant Other Anesthesia Focused Assessment* Temperature: 98.0 F Pulse Rate: 86 Blood Pressure: 141/73 Respiratory Rate: 18 Pulse Ox: 98 Oxygen Delivery Method: Room Air Airway Assessment Mouth opens: >3 cm Mallampati Score: II Teeth Condition: Intact Neck Range of motion (ROM): Full ROM Comment: short chin Focused Labs Anesthesia Preop lab: CBC WBC 6.7 K/mm3 (4.4-11.0) 01/14/24 07:38 RBC 3.34 M/mm3 (4.6-6.2) L 01/14/24 07:38 Hgb 9.9 g/dL (13.0-16.5) L 01/14/24 07:38 Hct 29.7 % (40-54) L 01/14/24 07:38 Plt Count 281 K/mm3 (150-450) 01/14/24 07:38 CHEMISTRY Potassium 4.4 mmol/L (3.5-5.1) 01/14/24 07:38 Sodium 139 mmol/L (136-145) 01/14/24 07:38 BUN 20 mg/dL (7-18) H 01/14/24 07:38 Creatinine 1.18 mg/dL (0.70-1.30) 01/14/24 07:38 Glucose 103 mg/dL (74-106) 01/14/24 07:38 COAG PT 15.2 SECONDS (11.7-14.9) H 01/14/24 07:38 Pre-Assessment Diagnosis/Proposed Procedure Planned Operative Procedure(s): bladder clot evacuation Anesthesia History 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 When Was Last Pacemaker Check QUESTION #4 FULL TEXT: You/Your Family Experience fever (hyperthermia) with Anesthesia Any additional information?: No Last Oral Intake Last Oral intake: Last Oral Intake NPO since 12:00 01/15/24 17:21 Meds taken in AM with sips of No 01/15/24 17:21 water? Meds patient instructed to take am of surgery Any additional information?: Yes NPO since: 12:00 (ham sandwich and orange juice) Meds taken in AM with sips of water?: Yes PONV PONV - buckshot swage operator: PONV - buckshot swage operator Female HX of Motion Sickness HX of N/V After Surgery Non-Smoker Duration of Surgery greater than 60 minutes Number of Risk Factors PONV Score Any additional information?: No Height & Weight Height & Weight: Anesthesia: Height & Weight Height 5 ft 8.9 in 01/15/24 17:21 Weight: 87 kg 01/15/24 17:21 Body Mass Index (BMI) 28.4 01/15/24 17:21 Respiratory Assessment Respiratory Assessment - buckshot swage operator: Respiratory Tract Infection Hx - buckshot swage operator Hx Respiratory Tract Infection No 01/12/24 08:41 Any additional information?: No STOP Sleep Apnea STOP Sleep Apnea - buckshot swage operator: STOP Sleep Apnea - buckshot swage operator Hx Hypertension Yes 01/14/24 08:17 Hx Sleep Apnea No 01/14/24 08:17 CPAP No 01/14/24 08:17 BIPAP Do you snore loudly (louder No 01/14/24 08:17 than talking or can be heard Do you often feel tired/ No 01/14/24 08:17 fatigued/ sleepy during daytime? Has anyone observed you stop No 01/14/24 08:17 breathing during sleep? STOP Results Negative 01/14/24 08:17 QUESTION #5 FULL TEXT : Do you snore loudly (louder than talking or can be heard through closed doors)? 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 Specify any problems Hx of Preganancy in last 3 N/A 01/14/24 08:17 Months Nurse Filling Out Transfusion TWOLF 01/14/24 08:17 & Questions: Date: 01/14/24 01/14/24 08:17 Time: 08:18 01/14/24 08:17 Patient unable to answer at this time (ie. confused, unrespo Any additional information?: No /Reproduction History /Reproductive History - buckshot swage operator: /Reproductive Hx- buckshot swage operator Hx Now Gestational Age (in weeks): EDC: Hx Hx Para Hx Section SAB No 01/12/24 08:41 Any additional information?: No Active Medications Active Medications: Current Medications Generic Name Dose Route Start Last Admin Trade Name Freq PRN Reason Stop Dose Admin Aminocaproic Acid 500 mg 01/14/24 18:00 01/15/24 17:33 Aminocaproic Acid 500 Mg Tablet PO Not Given Q6 CYNTHIA Amlodipine Besylate 10 mg 01/14/24 10:00 01/15/24 14:03 Amlodipine 10 Mg Tablet PO 10 mg DAILY CYNTHIA Administration Protocol Doxazosin Mesylate 4 mg 01/14/24 21:00 01/14/24 21:32 Doxazosin 4 Mg Tablet PO 4 mg QPM CYNTHIA Administration Sodium Chloride 250 mls @ 15 mls/hr 01/14/24 08:21 IV .[id number] PRN Additional IVPB Infusion Sodium Chloride 250 mls @ 15 mls/hr 01/14/24 08:21 IV .[id number] PRN Saline Flush Lisinopril 40 mg 01/14/24 10:00 01/15/24 17:33 Lisinopril 40 Mg Tablet PO Not Given BID CYNTHIA Protocol Multivitamins/Minerals 1 tablet 01/14/24 10:00 01/15/24 14:03 Multivitamins,Ther W-Minerals Tablet PO 1 tablet DAILYCM CYNTHIA Administration Sodium Chloride 10 - 40 ml 01/14/24 08:21 0.9% Saline Lock 10 Ml Syringe IV UD PRN SALINE FLUSH PFSH Medical History Hearing loss, left Hearing loss, right Anxiety Depression Chronic indwelling Worthy catheter TIA (transient ischemic attack) Chronic radiation cystitis Worthy catheter in place Wears glasses Cancer Arthritis Non-smoker History of pain when walking History of edema Hypertension Prostate cancer Blood in urine Home Medications ?Medication ?Instructions ?Recorded ?Last Taken ?Type amlodipine 10 mg tablet 10 mg PO DAILY BLOOD PRESSURE 12/08/18 01/13/24 History lisinopril 40 mg tablet 40 mg PO BID BLOOD PRESSURE 12/08/18 01/13/24 History terazosin 5 mg capsule 5 mg PO QPM BLOOD PRESSURE 12/08/18 01/13/24 History multivit,Ca,min-iron 8 mg-folic 1 tab PO DAILY SUPPLEMENT 11/04/23 01/13/24 History acid 200 mcg-lycopene 600 mcg tablet (A Thru Z Men's Ultimate) Allergy/AdvReac Type Severity Reaction Status Date / Time losartan Allergy Mild Rash Verified 01/14/24 04:23 Sulfa (Sulfonamide Allergy Hives Verified 01/14/24 04:23 Antibiotics) atenolol AdvReac Mild WEAKNESS Verified 01/14/24 04:23 hydrochlorothiazide AdvReac Mild UNKNOWN Verified 01/14/24 04:23 indomethacin (From Indocin) AdvReac Mild GI upset Verified 01/14/24 04:23 Surgical History History of left knee replacement Hx of radical prostatectomy Hx of cystoscopy Hx of colonoscopy Social History household members: spouse housing: house Smoking Status: Never smoker Review of Systems (Anesthesia) ROS Narrative System reviewed and no additional complaints, except as documented. Physical Exam Const alert, oriented x3 and average body habitus Orientation / Consciousness: awake HEENT dentition normal Neck full ROM Resp normal respiratory effort Cardio regular rate and regular rhythm GI GI Narrative: mild distention no tenderness, no bowel movement since tuesday, denies GERD Inspection: abdominal distention Narrative: catheter in place Back/Spine normal ROM Extremity full ROM Neuro oriented x3 and moves all extremities
--- NOTE | 2024-01-15 18:00 | NURSING ---
pt to OR via bed w/.9ns CBI running wide open-pt continuing to have bladder spasms every 30-45 minutes, expelling clots around the f/c despite not being able to irrigate any clots out , manully with a syringe
[2024-01-15] MEDS: Cefazolin 2 GM in 0.9% Normal Saline (100mL Bag) 100 ML IV (18:19)
--- NOTE | 2024-01-15 19:01 | PCM.OPRPT ---
Report of Operation Date of Procedure: 01/15/24 Pre-Operative Diagnosis: Recurrent bleeding from bladder neck and radiation cystitis Post-Operative Diagnosis: The same Surgery/Procedure Performed:: Cystoscopy evacuation of blood clots of the bladder and cauterization of the bladder neck extensively and placement of a suprapubic catheter Description of Surgical Findings:: This is an unfortunate 78-year-old gentleman who had his prostate removed for prostate cancer long time ago he then subsequently had radiation therapy postop for biochemical recurrence he had been doing fairly well for several years and then suddenly last year he developed a bladder neck contracture and severe bleeding this was cauterized extensively and the and the bleeding stopped but he ended up with severe incontinence. He had been doing fairly well with severe incontinence but now he has more bleeding again was in the hospital last week with bleeding taken back to surgery cauterized bladder neck bleeding stopped he was sent home and then represented back again to the emergency room with more bleeding new catheter was placed irrigated to clear this morning he was crystal-clear and then this afternoon the nurse reported that he had significant blood clots and she could not irrigate the catheter anymore so he took him to surgery today to evacuate the blood clots we decided to place a suprapubic tube to help decompress the bladder as possible this may not stop the bleeding this was explained to the family and they will try to cauterize the bleeding as best as possible. Patient is taken back to the operating room at a smooth induction of anesthesia he was placed supine on the table in the dorsolithotomy position. The existing 24 [place] catheter was removed and the bladder I then went in with a 24 [place] noncontinuous flow Olympus bipolar resectoscope once I got inside the bladder there was a significant amount of hemorrhage within the bladder this was all evacuated out with the [facility] evacuator and then there was a lot of bleeding coming from the bladder neck I then used the large loop with the bipolar resectoscope I tried identify the left and right you orifice but it was impossible to know for the location of these orifices from all the prior surgery and prior cauterization so I cauterized the area extensively in the bladder neck until I got enough controlled hemostasis. I then put into 30 degree lens and look up into the top of the bladder made an incision in the suprapubic site used a finder needle to find a tract to the bladder and then used the 16 [place] trocar to go into the bladder and over the trocar then I went and put in a 16 [place] suprapubic catheter. The left suprapubic catheter opened and the continue with irrigation through the bipolar resectoscope and then I extensively cauterized the bladder neck the mucosa was extremely friable with any touching of the mucosa extremities are bleeding and pumping so kept cauterizing until at the end I felt like I had cauterized everything that look like it could bleed. Again I could not identify the right ureteral orifices because of the amount of scar tissue in the area there is impossible to tell if I did cauterize use orifices were of these orifices were open. After finishing off the cauterization of the bladder neck we turned off of the water there was no bleeding whatsoever I then removed the cyst the cystoscope and put in a 20 [place] catheter into the bladder he had a 16 [place] catheter from the suprapubic and working to irrigate from the suprapubic down to the urethra catheter. Anesthesia was versed in his takeback to PACU good condition. Surgeon: Zhao Gilliland Type of Anesthesia: General Drains: SP tube, and perdomo. Estimated Blood Loss (mL): 10 Admit VTE Documentation VTE Present on Admission: No VTE Mechan Device Prophylaxis: SCD's VTE Pharm Prophylaxis ordered?: No
[2024-01-15] MEDS: LORazepam 0.5 MG Tablet PO (20:43)
[2024-01-15] MEDS: Doxazosin 4 MG Tablet PO (20:46)
[2024-01-15] MEDS: Lisinopril 40 MG Tablet PO (20:46)
[2024-01-16 00:19] VITALS: BP 124/67; PULSE 88; RESP 16; TEMP 36.6; O2SAT 97
[2024-01-16 05:22] VITALS: BP 111/77; PULSE 86; RESP 18; TEMP 36.9; O2SAT 97
--- NOTE | 2024-01-16 07:10 | PCM.POST.ANE ---
Anesthesia: Postop Eval I Current Vital Signs Temperature: 97 F Pulse Rate: 82 Blood Pressure: 130/60 Respiratory Rate: 16 Pulse Ox: 95 Oxygen Delivery Method: Room Air Assessment Airway patent: Yes Spontaneous unlabored respirations: Yes Mental status: Awake nausea: No Vomiting: No Anesthesia Complication: No Fluid Hydration Crystalloid volume administer (ml): 100 Total IV fluid infused: 100 Progress Note Anesthesia document: Postop Eval 1 completed: Yes
[2024-01-16 07:11] VITALS: BP 130/60; PULSE 82; RESP 16; TEMP 36.1; O2SAT 95
--- NOTE | 2024-01-16 07:11 | PCM.POSTANE2 ---
Anesthesia Postop Eval I Sum Postop Eval Completion status Anesthesia document: Postop Eval 1 completed: Yes Anesthesia Postop Eval I Summary Anesthesia Postop Eval I Summary: Anesthesia Postop Eval I: Assessment Summary Airway patent Yes 01/16/24 07:11 Spontaneous unlabored Yes 01/16/24 07:11 respirations Mental status Awake 01/16/24 07:11 nausea No 01/16/24 07:11 Vomiting No 01/16/24 07:11 Anesthesia Postop Eval I: Fluid Summary Crystalloid volume administer 100 01/16/24 07:11 (ml) Colloids volume administered ( ml) Blood Product volume administered (ml) Total IV fluid infused 100 01/16/24 07:11 Anesthesia Postop Eval I: Summary Notes Anesthesia Complication No 01/16/24 07:11 Anesthesia Complication Comment: Post-operative progress note Anesthesia: Postop Eval II Evaluation Mental status: Awake Pain Level: 0 nausea: No Vomiting: No Complications Anesthesia Complication: No
--- NOTE | 2024-01-16 07:41 | PCM.PN.GU ---
Subjective Subjective Status post because cauterization of bleeding from the bladder neck and placement of a suprapubic catheter. This morning the urine is completely clear when to stop irrigation but both catheters to gravity drainage, give him some lozenges for his sore throat and help his bowels move. Objective Data Objective Data Vital Signs: Vital Signs Temp Pulse Resp BP Pulse Ox O2 Del Method O2 Flow Rate 97 F L 82 16 130/60 H 95 Room Air 4 01/16/24 07:11 01/16/24 07:11 01/16/24 07:11 01/16/24 07:11 01/16/24 07:11 01/16/24 07:11 01/15/24 19:20 Oxygen Flow Rate (L/min) 4 Oxygen Delivery Method Room Air Weight: 87 kg Body Mass Index (BMI) 28.4 Intake & Output: Intake and Output for Last 24 Hours 01/14/24 01/15/24 01/16/24 23:59 23:59 23:59 Intake Total 1200 / 1200 1410 / 1410 300 / 300 Output Total 11491 / 33781 1525 / 1525 350 / 350 Balance -03315 / -49881 -115 / -115 -50 / -50 Lab / Micro Data 01/14/24 07:38 01/14/24 07:38
[2024-01-16 08:10] VITALS: BP 109/71; PULSE 83; RESP 16; TEMP 36.5; O2SAT 96
[2024-01-16] MEDS: Docusate Sodium 100 MG Capsule PO ×2 (08:13→21:27)
[2024-01-16] MEDS: amLODIPine 10 MG Tablet PO (08:13)
[2024-01-16] MEDS: BENZOCAINE/MENTHOL 1 LOZENGE MUCOUS MEM (08:13)
[2024-01-16] MEDS: Bisacodyl 10 MG Suppository RC (08:13)
[2024-01-16] MEDS: Multivitamins,Ther W-Minerals Tablet 1 TABLET PO (08:13)
--- NOTE | 2024-01-16 15:07 | CASEMGMT ---
Readmission Note: Index: 01/11/24-01/12/24. Dx: Hematuria Readmission: 01/14/24. Dx: Hematuria Pt was recently admitted for hematuria as the pt has an extensive history of prostate and bladder issues which he follows at the [facility]. On index admission, Dr. Gilliland (Uro) took the pt to surgery for cystoscopy and cauterization of his bladder to help the bleeding. The pt was then discharged home and the bleeding started up again shortly after. The Urologist states in his note that he feared this occurring due to the fragile tissues involved. The pt was placed on CBI and then taken for surgery on 01/14 for Cystoscopy evacuation of blood clots of the bladder and cauterization of the bladder neck extensively and placement of a suprapubic catheter. LA CM to pt room at this time. Pt states that his plan is to DC home and attend hyperbaric oxygen therapy and then to eventually have surgery at [facility]. At this time, the pt denies acute needs moving forward. The pt has a Hx with [facility] and states that he does not need this or any OP Tx. This RN CM educated the pt that SN may be beneficial to have, however the pt does not feel as if it is warranted at this time. Pt 6-Click score is 24 and the pt denies any further needs at this time.
--- NOTE | 2024-01-16 15:55 | CASEMGMT ---
LA CM to perform Follow up DC TC, noted pt has been rehospitalized.
[2024-01-16 17:03] VITALS: BP 106/68; PULSE 88; RESP 16; TEMP 37.1; O2SAT 98
[2024-01-16] MEDS: Tolterodine Tartrate 4 MG CAP.SA PO (21:26)
[2024-01-16] MEDS: Lisinopril 40 MG Tablet PO (21:27)
[2024-01-16] MEDS: Doxazosin 4 MG Tablet PO (21:29)
[2024-01-16 23:00] VITALS: BP 120/67; PULSE 85; RESP 14; TEMP 36.6; O2SAT 96
[2024-01-17 05:00] VITALS: BP 111/68; PULSE 89; RESP 18; TEMP 37.2; O2SAT 95
--- NOTE | 2024-01-17 07:54 | DS.PCM_ITS ---
Providers Date of Admission: 01/14/24 Primary Care Physician: Dr. Isaiah Han MD Reason For Visit: HEMATURIA Diagnosis Discharge Diagnosis (1) Gross hematuria: Status: Acute Code(s): R31.0 - Gross hematuria Plan: Continue with bladder irrigation hopefully the bleeding will stop on its own we will try some alum irrigation as well. (2) Soft tissue radionecrosis: Status: Acute Code(s): L59.8 - Other specified disorders of the skin and subcutaneous tissue related to radiation; Y84.2 - Radiological procedure and radiotherapy as the cause of abnormal reaction of the patient, or of later complication, without mention of misadventure at the time of the procedure Medications at Discharge Home Medications amlodipine 10 mg tablet 10 mg PO DAILY BLOOD PRESSURE 12/08/18 lisinopril 40 mg tablet 40 mg PO BID BLOOD PRESSURE 12/08/18 terazosin 5 mg capsule 5 mg PO QPM BLOOD PRESSURE 12/08/18 multivit,Ca,min-iron 8 mg-folic acid 200 mcg-lycopene 600 mcg tablet (A Thru Z Men's Ultimate) 1 tab PO DAILY SUPPLEMENT 11/04/23 Hospital Course Summary of Care Provided Minutes Spent on Discharge: 30 Hospital Course: Patient was admitted for recurrent bleeding from the bladder neck eventually was taken back to surgery and cauterized the bladder neck extensively and placed a suprapubic catheter since then the urines been clear Worthy catheter was removed today and he will go home with a suprapubic catheter. Physical Exam Const alert and oriented x3 General Appearance: cooperative HEENT normocephalic, head/scalp atraumatic, EAC's normal and TM's normal bilaterally Eyes PERRL and EOMs intact bilaterally Pupil: sluggish Neck no lymphadenopathy, supple and no JVD General: trachea midline Lymph Lymphatic: no lymphadenopathy noted, lymphedema and lymphadenopathy Resp normal respiratory effort, normal air movement and clear to auscultation bilaterally Cardio regular rate, regular rhythm and peripheral pulses 2+ throughout GI soft to palpation, non-tender and non-distended Extremity normal capillary refill and no clubbing, cyanosis or edema General Extremity: no tenderness to palpation of joints or extremities Skin no rashes or lesions noted General Skin Exam: turgor normal Lesions: no lesions Rashes: no rashes Neuro CN's II-XII intact bilaterally Speech: speech normal Motor Exam: strength 5/5 throughout; Negative for general weakness Psych thought process normal, cooperative and affect normal Appearance: appropriate Weight / BMI Weight Weight: 87 kg Body Mass Index (BMI) 28.4 ABG / Lab / Microbiology Data 01/14/24 07:38 01/14/24 07:38 D/C Instructions Discharge Diet: No restrictions and Light diet - advance as tolerated Call your doctor if your incision/area has: Continuous Slow Oozing Catheter: Worthy to leg bag and Worthy to large bag Drain: [place] Additional Dressing/Incision Instructions: No lifting or heavy activity Please Follow Up With: Zhao Gilliland MD When: call for appt. Meaningful Use Info Meaningful Use Meaningful Use Diagnoses (Choose all that apply): None applicable Ischemic Stroke Statin Dosing Therapy Reference: STATIN DOSE THERAPY REFERENCE: * Patients > 75 years receive moderate or high dose statin therapy. * Patients 75 years or YOUNGER should receive HIGH intensity statin dose unless contraindicated. You will be required to document reason for non-treatment if statin daily dose does not meet guidelines. HIGH DOSE STATIN THERAPY DAILY Atorvastatin > than or = to 40 mg Rosuvastatin > than or = to 20 mg Amlodipine + Atorvastatin > than or = to 2.5/40 mg Ezetimibe + Simvastatin 10/80 mg Simvastatin 80mg Discharge Plan Admission Admit Date/Time: 01/14/24 08:31 Primary Reason for Your Visit: Recurrent bleeding from the bladder neck Attending Provider: Zhao Gilliland Primary Care Provider: Isaiah Han Discharge Orders/Prescriptions Prescriptions: Continued terazosin 5 MG capsule 5 mg PO QPM amlodipine 10 MG tablet 10 mg PO DAILY lisinopril 40 MG tablet 40 mg PO BID A Thru Z Men's Ultimate 8 mg iron- 200 mcg-600 mcg tablet 1 tab PO DAILY Referrals / Follow Up: Isaiah Han MD [Primary Care Provider] - Disposition Disposition (needs filled in before D/C Order can be placed): Home, Self Care
[2024-01-17 08:00] VITALS: BP 115/74; PULSE 90; RESP 16; TEMP 37; O2SAT 97
[2024-01-17] MEDS: Tolterodine Tartrate 4 MG CAP.SA PO (08:37)
[2024-01-17] MEDS: Multivitamins,Ther W-Minerals Tablet 1 TABLET PO (08:38)
[2024-01-17] MEDS: amLODIPine 10 MG Tablet PO (08:38)
[2024-01-17] MEDS: Docusate Sodium 100 MG Capsule PO (08:38)
[2024-01-17] MEDS: Lisinopril 40 MG Tablet PO (08:38)
--- NOTE | 2024-01-17 09:08 | CASEMGMT ---
Order for DC placed. RN CM to pt room at this time. Pt at bedside. Pt will be going home with the suprapubic catheter. Pt states that he has not been provided with education on this yet and was reassured that nursing will give this education prior to discharge. Pt states that he still plans to attend hyperbaric oxygen therapy to help heal his prostate/ bladder issues up until he goes to the Urologist surgeon at [facility] on Feb 25. The pt denies any acute needs and states that he likes the current plan that is set. Pt denies further questions or concerns at this time and states that his son will be picking the pt and pt up today once the pt is ready for DC from the nursing perspective.
--- NOTE | 2024-01-17 09:40 | NURSING ---
educated on s.p. care and dressing change. dressing supplies given
== END 2024-01-17 09:53 | disposition home or self-care (01) | DRG 664 ==
LOC: ED 07:27 → MS3 07:45
PROVIDERS: Admitting Provider Urology; Emergency Provider Emergency Medicine; PCP Family Medicine; Visit Provider Urology
PROC: 0TBB8ZX Excision of Bladder, Via Natural or Artificial Opening Endoscopic, Diagnostic (ICD-10-PCS; principal; 2024-01-15 18:00)
DX: N30.41 Irradiation cystitis with hematuria (principal); I10 Essential (primary) hypertension; T83.091A Other mechanical complication of indwelling urethral catheter, initial encounter; L59.8 Other specified disorders of the skin and subcutaneous tissue related to radiation; R31.0 Gross hematuria; Y84.2 Radiological procedure and radiotherapy as the cause of abnormal reaction of the patient, or of later complication, without mention of misadventure at the time of the procedure; Y73.8 Miscellaneous gastroenterology and urology devices associated with adverse incidents, not elsewhere classified; Z79.899 Other long term (current) drug therapy; Z90.79 Acquired absence of other genital organ(s); Z85.46 Personal history of malignant neoplasm of prostate; Z86.73 Personal history of transient ischemic attack (TIA), and cerebral infarction without residual deficits
CPT/HCPCS: 80048; 85025; 85610; 85730; 99284; A4216; J2405

== ENCOUNTER 2024-02-03 08:30 | Outpatient (RCR) | payer MEDICARE, OTHER, SELFPAY ==
[2024-01-05 00:53] VITALS: BP 118/75; BP 122/68; BP 126/69; PULSE 75; PULSE 97; RESP 14; RESP 15; RESP 18; TEMP 35.6; TEMP 36.6; TEMP 36.9; BMI 26.9
--- NOTE | 2024-01-05 08:33 | WC ---
Patient came in today for scheduled dive time. His left ear drum was red and bulging. Kayce called and gave referral to send patient to [facility]. Their office was contacted and patient has an appointment for 01/06/24. With hopes to return to [facility] the following Tuesday.
[2024-01-09 08:55] VITALS: BP 117/66; BP 139/84; PULSE 66; PULSE 80; RESP 15; TEMP 36.7; TEMP 37
--- NOTE | 2024-01-09 17:30 | PCM.HBO.PN ---
History of Present Illness Date of Service: 01/09/24 Chief Complaint: Consult HBO for radiation necrosis History of Wound: Patient has history of prostate cancer and then had a radical prostatectomy done in 2011. In 2016 he had more problems and had 37 radiation treatments. 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 His urologist from [facility] is recommending HBO therapy to help treat his radiation cystitis. Patient states he these issues started last January, he now has issues with anemia. He has an indwelling Worthy catheter. His urine is typically clear, but he will have intermittent periods with bleeding. When he has bleeding, he will drink a large amount of water and that typically helps with the bleeding. Patient states that he was in the ED yesterday, Tuesday01/08/24 for bleeding from his catheter. He tried increasing his water intake but he continued to bleed. He decided to go to the ED when the jenny red blood continued. He states that they flushed his catheter which removed some blood clots. The bleeding decreased. CBC was 11.1. BUN 24, Creatinine 1.19. He will follow up with Dr. Gilliland. Progress of Wound: This presents his 2nd HBO session. Hyperbaric oxygen treatment was administered as per the facility's protocol at 2.0 GEORGE in 100% oxygen for 90 minutes without air breaks. The patient tolerated the hyperbaric oxygen therapy without complaints or complications. Upon emergence from the hyperbaric chamber, the patient's vital signs remained stable. The patient was discharged in good condition. Objective Data Objective Data Vital Signs: Vital Signs Temp Pulse Resp BP 98.6 F 66 15 117/66 01/09/24 08:55 01/09/24 08:55 01/09/24 08:55 01/09/24 08:55 Weight: 188 lb Body Mass Index (BMI) 26.9 Exam Physical Exam Const alert, oriented x3 and no apparent distress General Appearance: cooperative HEENT normocephalic HEENT Narrative: Bilateral Tympanostomy tubes in place. Head and Scalp: atraumatic Eyes General Eye: normal appearance of both eyes Neck full ROM Resp normal respiratory effort Effort and Inspection: able to speak in complete sentences Cardio regular rate and regular rhythm Palpation: normal PMI Narrative: Worthy catheter in place draining dark pink urine. 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 - Other specified disorders of the skin and subcutaneous tissue related to radiation; Y84.2 - Radiological procedure and radiotherapy as the cause of abnormal reaction of the patient, or of later complication, without mention of misadventure at the time of the procedure (2) Hematuria syndrome: CODE(S): R31.9 - Hematuria, unspecified (3) Chronic radiation cystitis: CODE(S): N30.40 - Irradiation cystitis without hematuria (4) Bladder dysfunction: CODE(S): N31.9 - Neuromuscular dysfunction of bladder, unspecified (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
[2024-01-10 09:47] VITALS: BP 110/63; BP 113/68; PULSE 82; PULSE 90; RESP 16; TEMP 36.9
--- NOTE | 2024-01-10 14:57 | HBO.PN.PCM_ITS ---
History of Present Illness Date of Service: 01/10/24 Chief Complaint: Consult HBO for radiation necrosis History of Wound: Patient has history of prostate cancer and then had a radical prostatectomy done in 2011. In 2016 he had more problems and had 37 radiation treatments. 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 His urologist from [facility] is recommending HBO therapy to help treat his radiation cystitis. Patient states he these issues started last January, he now has issues with anemia. He has an indwelling Worthy catheter. His urine is typically clear, but he will have intermittent periods with bleeding. When he has bleeding, he will drink a large amount of water and that typically helps with the bleeding. Patient states that he was in the ED on Tuesday01/08/24 for bleeding from his catheter. He tried increasing his water intake but he continued to bleed. He decided to go to the ED when the jenny red blood continued. He states that they flushed his catheter which removed some blood clots. The bleeding decreased. CBC was 11.1. BUN 24, Creatinine 1.19. He will follow up with Dr. Gilliland. Progress of Wound: This presents his 3rd HBO session. Hyperbaric oxygen treatment was administered as per the facility's protocol at 2.0 GEORGE in 100% oxygen for 90 minutes without air breaks. The patient tolerated the hyperbaric oxygen therapy without complaints or complications. Upon e mergence from the hyperbaric chamber, the patient's vital signs remained stable. The patient was discharged in good condition. Objective Data Objective Data Vital Signs: Vital Signs Temp Pulse Resp BP 98.4 F 90 16 110/63 01/10/24 09:47 01/10/24 09:47 01/10/24 09:47 01/10/24 09:47 Weight: 188 lb Body Mass Index (BMI) 26.9 Exam Physical Exam Const alert, oriented x3 and no apparent distress General Appearance: cooperative HEENT normocephalic HEENT Narrative: Bilateral Tympanostomy tubes in place. Head and Scalp: atraumatic Eyes General Eye: normal appearance of both eyes Neck full ROM Resp normal respiratory effort Effort and Inspection: able to speak in complete sentences Cardio regular rate and regular rhythm Palpation: normal PMI Narrative: Worthy catheter in place draining dark pink urine. 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 - Other specified disorders of the skin and subcutaneous tissue related to radiation; Y84.2 - Radiological procedure and radiotherapy as the cause of abnormal reaction of the patient, or of later complication, without mention of misadventure at the time of the procedure (2) Hematuria syndrome: CODE(S): R31.9 - Hematuria, unspecified (3) Chronic radiation cystitis: CODE(S): N30.40 - Irradiation cystitis without hematuria (4) Bladder dysfunction: CODE(S): N31.9 - Neuromuscular dysfunction of bladder, unspecified (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
[2024-01-23 09:58] VITALS: BP 116/73; BP 122/75; PULSE 103; PULSE 76; RESP 14; RESP 15; TEMP 36.2; TEMP 36.7
--- NOTE | 2024-01-23 14:37 | HBO.PN.PCM_ITS ---
History of Present Illness Date of Service: 01/23/24 Chief Complaint: Consult HBO for radiation necrosis History of Wound: Patient has history of prostate cancer and then had a radical prostatectomy done in 2011. In 2016 he had more problems and had 37 radiation treatments. 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 His urologist from [facility] is recommending HBO therapy to help treat his radiation cystitis. Patient states he these issues started last January, he now has issues with anemia. He has an indwelling Worthy catheter. His urine is typically clear, but he will have intermittent periods with bleeding. When he has bleeding, he will drink a large amount of water and that typically helps with the bleeding. Patient states that he was in the ED on Tuesday01/08/24 for bleeding from his catheter. He tried increasing his water intake but he continued to bleed. He decided to go to the ED when the jenny red blood continued. He states that they flushed his catheter which removed some blood clots. The bleeding decreased. CBC was 11.1. BUN 24, Creatinine 1.19. He will follow up with Dr. Gilliland. Progress of Wound: This presents his 4th HBO session. Hyperbaric oxygen treatment was administered as per the facility's protocol at 2.0 GEORGE in 100% oxygen for 90 minutes without air breaks. The patient tolerated the hyperbaric oxygen therapy without complaints or complications. Upon e mergence from the hyperbaric chamber, the patient's vital signs remained stable. The patient was discharged in good condition. Objective Data Objective Data Vital Signs: Vital Signs Temp Pulse Resp BP 98.1 F 103 H 15 116/73 01/23/24 09:58 01/23/24 09:58 01/23/24 09:58 01/23/24 09:58 Weight: 188 lb Body Mass Index (BMI) 26.9 Exam Physical Exam Const alert, oriented x3 and no apparent distress General Appearance: cooperative HEENT normocephalic HEENT Narrative: Bilateral Tympanostomy tubes in place. Head and Scalp: atraumatic Eyes General Eye: normal appearance of both eyes Neck full ROM Resp normal respiratory effort Effort and Inspection: able to speak in complete sentences Cardio regular rate and regular rhythm Palpation: normal PMI Narrative: Worthy catheter in place draining dark pink urine. 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 - Other specified disorders of the skin and subcutaneous tissue related to radiation; Y84.2 - Radiological procedure and radiotherapy as the cause of abnormal reaction of the patient, or of later complication, without mention of misadventure at the time of the procedure (2) Hematuria syndrome: CODE(S): R31.9 - Hematuria, unspecified (3) Chronic radiation cystitis: CODE(S): N30.40 - Irradiation cystitis without hematuria (4) Bladder dysfunction: CODE(S): N31.9 - Neuromuscular dysfunction of bladder, unspecified (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
[2024-01-24 09:34] VITALS: BP 120/78; BP 128/79; PULSE 76; PULSE 98; RESP 15; RESP 16; TEMP 36.7; TEMP 36.9
--- NOTE | 2024-01-24 13:24 | HBO.PN.PCM_ITS ---
History of Present Illness Date of Service: 01/24/24 Chief Complaint: Consult HBO for radiation necrosis History of Wound: Patient has history of prostate cancer and then had a radical prostatectomy done in 2011. In 2016 he had more problems and had 37 radiation treatments. 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 His urologist from [facility] is recommending HBO therapy to help treat his radiation cystitis. Patient states he these issues started last January, he now has issues with anemia. He has an indwelling Worthy catheter. His urine is typically clear, but he will have intermittent periods with bleeding. When he has bleeding, he will drink a large amount of water and that typically helps with the bleeding. Patient states that he was in the ED on Tuesday01/08/24 for bleeding from his catheter. He tried increasing his water intake but he continued to bleed. He decided to go to the ED when the jenny red blood continued. He states that they flushed his catheter which removed some blood clots. The bleeding decreased. CBC was 11.1. BUN 24, Creatinine 1.19. He will follow up with Dr. Gilliland. Progress of Wound: This presents his 5th HBO session. Hyperbaric oxygen treatment was administered as per the facility's protocol at 2.0 GEORGE in 100% oxygen for 90 minutes without air breaks. The patient tolerated the hyperbaric oxygen therapy without complaints or complications. Upon e mergence from the hyperbaric chamber, the patient's vital signs remained stable. The patient was discharged in good condition. Objective Data Objective Data Vital Signs: Vital Signs Temp Pulse Resp BP 98.4 F 98 16 120/78 01/24/24 09:34 01/24/24 09:34 01/24/24 09:34 01/24/24 09:34 Weight: 188 lb Body Mass Index (BMI) 26.9 Exam Physical Exam Const alert, oriented x3 and no apparent distress General Appearance: cooperative HEENT normocephalic HEENT Narrative: Bilateral Tympanostomy tubes in place. 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 - Other specified disorders of the skin and subcutaneous tissue related to radiation; Y84.2 - Radiological procedure and radiotherapy as the cause of abnormal reaction of the patient, or of later complication, without mention of misadventure at the time of the procedure (2) Hematuria syndrome: CODE(S): R31.9 - Hematuria, unspecified (3) Chronic radiation cystitis: CODE(S): N30.40 - Irradiation cystitis without hematuria (4) Bladder dysfunction: CODE(S): N31.9 - Neuromuscular dysfunction of bladder, unspecified (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
[2024-01-25 07:53] VITALS: BP 116/74; BP 129/76; PULSE 115; PULSE 77; RESP 16; TEMP 36.7; TEMP 36.9
--- NOTE | 2024-01-25 13:19 | PCM.HBO.PN ---
History of Present Illness Date of Service: 01/25/24 Chief Complaint: Consult HBO for radiation necrosis History of Wound: Patient has history of prostate cancer and then had a radical prostatectomy done in 2011. In 2016 he had more problems and had 37 radiation treatments. 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 His urologist from [facility] is recommending HBO therapy to help treat his radiation cystitis. Patient states he these issues started last January, he now has issues with anemia. He has an indwelling Worthy catheter. His urine is typically clear, but he will have intermittent periods with bleeding. When he has bleeding, he will drink a large amount of water and that typically helps with the bleeding. Patient states that he was in the ED on Tuesday01/08/24 for bleeding from his catheter. He tried increasing his water intake but he continued to bleed. He decided to go to the ED when the jenny red blood continued. He states that they flushed his catheter which removed some blood clots. The bleeding decreased. CBC was 11.1. BUN 24, Creatinine 1.19. He will follow up with Dr. Gilliland. Progress of Wound: This presents his 5th HBO session. Hyperbaric oxygen treatment was administered as per the facility's protocol at 2.0 GEORGE in 100% oxygen for 90 minutes without air breaks. The patient tolerated the hyperbaric oxygen therapy without complaints or complications. Upon emergence from the hyperbaric chamber, the patient's vital signs remained stable. The patient was discharged in good condition. Subjective Subjective Patient is very pleased and has not had any blood in his urine bag and he is tolerating treatments well Objective Data Objective Data Vital signs are stable and patient is tolerating treatments no complaints we will continue with treatment of HBO as prescribed Vital Signs: Vital Signs Temp Pulse Resp BP 98.1 F 115 H 16 129/76 H 01/25/24 07:53 01/25/24 07:53 01/25/24 07:53 01/25/24 07:53 Weight: 188 lb Body Mass Index (BMI) 26.9 Exam Physical Exam Const alert, oriented x3 and no apparent distress General Appearance: cooperative HEENT normocephalic HEENT Narrative: Bilateral Tympanostomy tubes in place. 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 - Other specified disorders of the skin and subcutaneous tissue related to radiation; Y84.2 - Radiological procedure and radiotherapy as the cause of abnormal reaction of the patient, or of later complication, without mention of misadventure at the time of the procedure (2) Hematuria syndrome: CODE(S): R31.9 - Hematuria, unspecified (3) Chronic radiation cystitis: CODE(S): N30.40 - Irradiation cystitis without hematuria (4) Bladder dysfunction: CODE(S): N31.9 - Neuromuscular dysfunction of bladder, unspecified (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
--- NOTE | 2024-01-26 11:18 | HBO.PN.PCM_ITS ---
History of Present Illness Date of Service: 01/26/24 Chief Complaint: Consult HBO for radiation necrosis History of Wound: Patient has history of prostate cancer and then had a radical prostatectomy done in 2011. In 2016 he had more problems and had 37 radiation treatments. 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 His urologist from [facility] is recommending HBO therapy to help treat his radiation cystitis. Patient states he these issues started last January, he now has issues with anemia. He has an indwelling Worthy catheter. His urine is typically clear, but he will have intermittent periods with bleeding. When he has bleeding, he will drink a large amount of water and that typically helps with the bleeding. Patient states that he was in the ED on Tuesday01/08/24 for bleeding from his catheter. He tried increasing his water intake but he continued to bleed. He decided to go to the ED when the jenny red blood continued. He states that they flushed his catheter which removed some blood clots. The bleeding decreased. CBC was 11.1. BUN 24, Creatinine 1.19. He will follow up with Dr. Gilliland. Progress of Wound: Progress: This presents his 7th HBO session. Tolerance: Hyperbaric oxygen treatment was administered as per the facility's protocol at 2.0 GEORGE in 100% oxygen for 90 minutes without air breaks. The patient tolerated hyperbaric oxygen therapy without complaints or complications. Upon emergence from the hyperbaric chamber, his vitals remained stable and he was discharged in stable condition. Objective Data Objective Data Vital Signs: Vital Signs Temp Pulse Resp BP 98.1 F 115 H 16 129/76 H 01/25/24 07:53 01/25/24 07:53 01/25/24 07:53 01/25/24 07:53 Weight: 188 lb Body Mass Index (BMI) 26.9 Exam Physical Exam Const alert and no apparent distress General Appearance: comfortable HEENT normocephalic and head/scalp atraumatic Neck full ROM and supple General: normal visual inspection Resp normal respiratory effort Effort and Inspection: able to speak in complete sentences Psych cooperative Charges/Coding Wound Center CF Procedures HBO Supervision: [id number] Hyperbaric Oxygen; supervision Assessment/Plan Assessment/Plan (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 - Other specified disorders of the skin and subcutaneous tissue related to radiation; Y84.2 - Radiological procedure and radiotherapy as the cause of abnormal reaction of the patient, or of later complication, without mention of misadventure at the time of the procedure (2) Chronic radiation cystitis: CODE(S): N30.40 - Irradiation cystitis without hematuria (3) Bladder dysfunction: CODE(S): N31.9 - Neuromuscular dysfunction of bladder, unspecified (4) Prostate cancer: CODE(S): C61 - Malignant neoplasm of prostate PLAN: Plan The patient appears to be tolerating hyperbaric oxygen therapy well, which will be continued as per his medical plan.
[2024-01-26 11:46] VITALS: BP 118/68; BP 120/78; PULSE 78; PULSE 97; RESP 15; TEMP 36.8; TEMP 36.9
[2024-01-27 10:24] VITALS: BP 115/67; BP 126/77; PULSE 101; PULSE 79; RESP 14; TEMP 36.9
--- NOTE | 2024-01-27 13:42 | PCM.HBO.PN ---
History of Present Illness Date of Service: 01/27/24 Chief Complaint: HBO for radiation necrosis History of Wound: Patient has history of prostate cancer and then had a radical prostatectomy done in 2011. In 2016 he had more problems and had 37 radiation treatments. 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 His urologist from [facility] is recommending HBO therapy to help treat his radiation cystitis. Patient states he these issues started last January, he now has issues with anemia. He has an indwelling Worthy catheter. His urine is typically clear, but he will have intermittent periods with bleeding. When he has bleeding, he will drink a large amount of water and that typically helps with the bleeding. Patient states that he was in the ED on Tuesday01/08/24 for bleeding from his catheter. He tried increasing his water intake but he continued to bleed. He decided to go to the ED when the jenny red blood continued. He states that they flushed his catheter which removed some blood clots. The bleeding decreased. CBC was 11.1. BUN 24, Creatinine 1.19. He will follow up with Dr. Gilliland. Progress of Wound: Progress: Today reperesents his 8th treatment session of a planned 30 HBOt sessions. Tolerance: Hyperbaric oxygen treatment was administered as per the facility's protocol at 2.0 GEORGE in 100% oxygen for 90 minutes without air breaks. The patient tolerated hyperbaric oxygen therapy without complaints or complications. Upon emergence from the hyperbaric chamber, his vitals remained stable and he was discharged in stable condition. 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 - Other specified disorders of the skin and subcutaneous tissue related to radiation; Y84.2 - Radiological procedure and radiotherapy as the cause of abnormal reaction of the patient, or of later complication, without mention of misadventure at the time of the procedure (2) Chronic radiation cystitis: CODE(S): N30.40 - Irradiation cystitis without hematuria (3) Bladder dysfunction: CODE(S): N31.9 - Neuromuscular dysfunction of bladder, unspecified (4) Prostate cancer: CODE(S): C61 - Malignant neoplasm of prostate PLAN: Plan The patient appears to be tolerating hyperbaric oxygen therapy well, which will be continued as per his medical plan.
--- NOTE | 2024-01-30 09:11 | PCM.HBO.PN ---
History of Present Illness Date of Service: 01/30/24 Chief Complaint: HBO for radiation necrosis History of Wound: Patient has history of prostate cancer and then had a radical prostatectomy done in 2011. In 2016 he had more problems and had 37 radiation treatments. 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 His urologist from [facility] is recommending HBO therapy to help treat his radiation cystitis. Patient states he these issues started last January, he now has issues with anemia. He has an indwelling Worthy catheter. His urine is typically clear, but he will have intermittent periods with bleeding. When he has bleeding, he will drink a large amount of water and that typically helps with the bleeding. Patient states that he was in the ED on Tuesday01/08/24 for bleeding from his catheter. He tried increasing his water intake but he continued to bleed. He decided to go to the ED when the jenny red blood continued. He states that they flushed his catheter which removed some blood clots. The bleeding decreased. CBC was 11.1. BUN 24, Creatinine 1.19. He will follow up with Dr. Gilliland. Progress of Wound: Progress: Today represents his 9th treatment session of a planned 30 HBOT sessions. Tolerance: Hyperbaric oxygen treatment was administered as per the facility's protocol at 2.0 GEORGE in 100% oxygen for 90 minutes without air breaks. The patient tolerated hyperbaric oxygen therapy without complaints or complications. Upon emergence from the hyperbaric chamber, his vitals remained stable and he was discharged in stable condition. Objective Data Objective Data Vital Signs: Vital Signs Temp Pulse Resp BP 98.4 F 101 H 14 115/67 01/27/24 10:24 01/27/24 10:24 01/27/24 10:24 01/27/24 10:24 Weight: 188 lb Body Mass Index (BMI) 26.9 Exam Physical Exam Const alert, oriented x3 and no apparent distress General Appearance: cooperative HEENT normocephalic HEENT Narrative: Bilateral Tympanostomy tubes in place. 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 - Other specified disorders of the skin and subcutaneous tissue related to radiation; Y84.2 - Radiological procedure and radiotherapy as the cause of abnormal reaction of the patient, or of later complication, without mention of misadventure at the time of the procedure (2) Chronic radiation cystitis: CODE(S): N30.40 - Irradiation cystitis without hematuria (3) Bladder dysfunction: CODE(S): N31.9 - Neuromuscular dysfunction of bladder, unspecified (4) Prostate cancer: CODE(S): C61 - Malignant neoplasm of prostate PLAN: Plan The patient appears to be tolerating hyperbaric oxygen therapy well, which will be continued as per his medical plan.
[2024-01-30 10:40] VITALS: BP 127/74; BP 131/69; PULSE 72; PULSE 94; RESP 15; RESP 16; TEMP 36.9; TEMP 37.2
[2024-01-31 10:34] VITALS: BP 120/80; BP 121/70; PULSE 72; PULSE 93; RESP 13; RESP 15; TEMP 36.7; TEMP 36.8
--- NOTE | 2024-01-31 11:24 | HBO.PN.PCM_ITS ---
History of Present Illness Date of Service: 01/31/24 Chief Complaint: HBO for radiation necrosis History of Wound: Patient has history of prostate cancer and then had a radical prostatectomy done in 2011. In 2016 he had more problems and had 37 radiation treatments. 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 His urologist from [facility] is recommending HBO therapy to help treat his radiation cystitis. Patient states he these issues started last January, he now has issues with anemia. He has an indwelling Worthy catheter. His urine is typically clear, but he will have intermittent periods with bleeding. When he has bleeding, he will drink a large amount of water and that typically helps with the bleeding. Patient states that he was in the ED on Tuesday01/08/24 for bleeding from his catheter. He tried increasing his water intake but he continued to bleed. He decided to go to the ED when the jenny red blood continued. He states that they flushed his catheter which removed some blood clots. The bleeding decreased. CBC was 11.1. BUN 24, Creatinine 1.19. He will follow up with Dr. Gilliland. Progress of Wound: Progress: Today represents his 10th treatment session of a planned 30 HBOT [facility]. Tolerance: Hyperbaric oxygen treatment was administered as per the facility's protocol at 2.0 GEORGE in 100% oxygen for 90 minutes without air breaks. The patient tolerated hyperbaric oxygen therapy without complaints or complications. Upon emergence from the hyperbaric chamber, his vitals remained stable and he was discharged in stable condition. Objective Data Objective Data Vital Signs: Vital Signs Temp Pulse Resp BP 98.1 F 93 13 120/80 01/31/24 10:34 01/31/24 10:34 01/31/24 10:34 01/31/24 10:34 Weight: 188 lb Body Mass Index (BMI) 26.9 Exam Physical Exam Const alert, oriented x3 and no apparent distress General Appearance: cooperative HEENT normocephalic HEENT Narrative: Bilateral Tympanostomy tubes in place. 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 - Other specified disorders of the skin and subcutaneous tissue related to radiation; Y84.2 - Radiological procedure and radiotherapy as the cause of abnormal reaction of the patient, or of later complication, without mention of misadventure at the time of the procedure (2) Chronic radiation cystitis: CODE(S): N30.40 - Irradiation cystitis without hematuria (3) Bladder dysfunction: CODE(S): N31.9 - Neuromuscular dysfunction of bladder, unspecified (4) Prostate cancer: CODE(S): C61 - Malignant neoplasm of prostate PLAN: Plan The patient appears to be tolerating hyperbaric oxygen therapy well, which will be continued as per his medical plan.
[2024-02-01 10:46] VITALS: BP 125/71; BP 134/79; PULSE 78; PULSE 98; RESP 13; RESP 14; TEMP 36.9; TEMP 37
--- NOTE | 2024-02-01 12:59 | HBO.PN.PCM_ITS ---
History of Present Illness Date of Service: 02/01/24 Chief Complaint: HBO for radiation necrosis and for reevaluation and renewal for 30 more HBO treatments History of Wound: Patient has history of prostate cancer and then had a radical prostatectomy done in 2011. In 2016 he had more problems and had 37 radiation treatments. 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 His urologist from [facility] is recommending HBO therapy to help treat his radiation cystitis. Patient states he these issues started last January, he now has issues with anemia. He has an indwelling Worthy catheter. His urine is typically clear, but he will have intermittent periods with bleeding. When he has bleeding, he will drink a large amount of water and that typically helps with the bleeding. Patient states that he was in the ED on Tuesday01/08/24 for bleeding from his catheter. He tried increasing his water intake but he continued to bleed. He decided to go to the ED when the jenny red blood continued. He states that they flushed his catheter which removed some blood clots. The bleeding decreased. CBC was 11.1. BUN 24, Creatinine 1.19. He will follow up with Dr. Gilliland. Progress of Wound: Progress: Today represents his 10th treatment session of a planned 30 HBOT sessions. Tolerance: Hyperbaric oxygen treatment was administered as per the facility's protocol at 2.0 GEORGE in 100% oxygen for 90 minutes without air breaks. The patient tolerated hyperbaric oxygen therapy without complaints or complications. Upon emergence from the hyperbaric chamber, his vitals remained stable and he was discharged in stable condition. Patient is doing very well and has the bleeding has stopped that was consistently going on before he started the HBO treatments patient is feeling much improved in his care and his cancer Subjective Subjective Patient is very pleased with outcomes and he is very happy with the bleeding has ceased Objective Data Objective Data Will apply for reevaluation and renewal of 30 more treatments of HBO GEORGE 2.0 Vital Signs: Vital Signs Temp Pulse Resp BP 98.4 F 98 14 125/71 H 02/01/24 10:46 02/01/24 10:46 02/01/24 10:46 02/01/24 10:46 Weight: 188 lb Body Mass Index (BMI) 26.9 Exam Physical Exam Const alert, oriented x3 and no apparent distress General Appearance: cooperative HEENT normocephalic HEENT Narrative: Bilateral Tympanostomy tubes in place. 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 (3) Bladder dysfunction: CODE(S): N31.9 - Neuromuscular dysfunction of bladder, unspecified (4) Prostate cancer: CODE(S): C61 - Malignant neoplasm of prostate PLAN: Plan The patient appears to be tolerating hyperbaric oxygen therapy well, which will be continued as per his medical plan. Vital signs have been stable and bleeding has not been a problem with his urine his flow has been good and yellow with no signs of infection. Patient is very pleased with outcomes
[2024-02-02 11:17] VITALS: BP 132/78; BP 138/71; PULSE 78; PULSE 95; RESP 13; RESP 14; TEMP 36.7; TEMP 36.8
--- NOTE | 2024-02-02 13:35 | PCM.HBO.PN ---
History of Present Illness Date of Service: 02/02/24 Chief Complaint: HBO for radiation necrosis and for reevaluation and renewal for 30 more HBO treatments History of Wound: Patient has history of prostate cancer and then had a radical prostatectomy done in 2011. In 2016 he had more problems and had 37 radiation treatments. 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 His urologist from [facility] is recommending HBO therapy to help treat his radiation cystitis. Patient states he these issues started last January, he now has issues with anemia. He has an indwelling Worthy catheter. His urine is typically clear, but he will have intermittent periods with bleeding. When he has bleeding, he will drink a large amount of water and that typically helps with the bleeding. Patient states that he was in the ED on Tuesday01/08/24 for bleeding from his catheter. He tried increasing his water intake but he continued to bleed. He decided to go to the ED when the jenny red blood continued. He states that they flushed his catheter which removed some blood clots. The bleeding decreased. CBC was 11.1. BUN 24, Creatinine 1.19. He will follow up with Dr. Gilliland. Progress of Wound: Progress: Today represents his 11th treatment session of a planned 30 HBOT sessions. Tolerance: Hyperbaric oxygen treatment was administered as per the facility's protocol at 2.0 GEORGE in 100% oxygen for 90 minutes without air breaks. The patient tolerated hyperbaric oxygen therapy without complaints or complications. Upon emergence from the hyperbaric chamber, his vitals remained stable and he was discharged in stable condition. Patient is doing very well and has the bleeding has stopped that was consistently going on before he started the HBO treatments patient is feeling much improved in his care and his cancer Objective Data Objective Data Vital Signs: Vital Signs Temp Pulse Resp BP 98.1 F 95 13 138/71 H 02/02/24 11:17 02/02/24 11:17 02/02/24 11:17 02/02/24 11:17 Weight: 188 lb Body Mass Index (BMI) 26.9 Exam Physical Exam Const alert, oriented x3 and no apparent distress General Appearance: cooperative HEENT normocephalic HEENT Narrative: Bilateral Tympanostomy tubes in place. 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 - Other specified disorders of the skin and subcutaneous tissue related to radiation; Y84.2 - Radiological procedure and radiotherapy as the cause of abnormal reaction of the patient, or of later complication, without mention of misadventure at the time of the procedure (2) Chronic radiation cystitis: CODE(S): N30.40 - Irradiation cystitis without hematuria (3) Bladder dysfunction: CODE(S): N31.9 - Neuromuscular dysfunction of bladder, unspecified (4) Prostate cancer: CODE(S): C61 - Malignant neoplasm of prostate PLAN: Plan The patient appears to be tolerating hyperbaric oxygen therapy well, which will be continued as per his medical plan.
[2024-02-03 10:27] VITALS: BP 116/75; BP 124/70; PULSE 105; PULSE 73; RESP 16; RESP 18; TEMP 36.3; TEMP 36.6
--- NOTE | 2024-02-03 13:44 | PCM.HBO.PN ---
History of Present Illness Date of Service: 02/03/24 Chief Complaint: HBO for radiation necrosis and for reevaluation and renewal for 30 more HBO treatments History of Wound: Patient has history of prostate cancer and then had a radical prostatectomy done in 2011. In 2016 he had more problems and had 37 radiation treatments. 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 His urologist from [facility] is recommending HBO therapy to help treat his radiation cystitis. Patient states he these issues started last January, he now has issues with anemia. He has an indwelling Worthy catheter. His urine is typically clear, but he will have intermittent periods with bleeding. When he has bleeding, he will drink a large amount of water and that typically helps with the bleeding. Patient states that he was in the ED on Tuesday01/08/24 for bleeding from his catheter. He tried increasing his water intake but he continued to bleed. He decided to go to the ED when the jenny red blood continued. He states that they flushed his catheter which removed some blood clots. The bleeding decreased. CBC was 11.1. BUN 24, Creatinine 1.19. He will follow up with Dr. Gilliland. Progress of Wound: Progress: Today represents his 13th treatment session of a planned 30 HBOT sessions. Tolerance: Hyperbaric oxygen treatment was administered as per the facility's protocol at 2.0 GEORGE in 100% oxygen for 90 minutes without air breaks. The patient tolerated hyperbaric oxygen therapy without complaints or complications. Upon emergence from the hyperbaric chamber, his vitals remained stable and he was discharged in stable condition. Patient is doing very well and states that the bleeding has stopped that was consistently going on before he started the HBO treatments. The patient is feeling much improved in his care and his cancer recovery. Objective Data Objective Data Vital Signs: Vital Signs Temp Pulse Resp BP 97.9 F 105 H 18 124/70 H 02/03/24 10:27 02/03/24 10:27 02/03/24 10:02/03/24 10:27 Weight: 85.275 kg Body Mass Index (BMI) 26.9 Exam Physical Exam Const alert, oriented x3 and no apparent distress HEENT Tympanic Membrane: other Other Details: tympanostomy tubes present and patent b/l Psych mental status grossly normal, thought process normal, cooperative, affect normal and speech normal Nursing Assessment and Debridement Post-Debridement Measurements and Additional Note: Post-Debridement Measurements/Treatment WC - Nurse 3 - General Ulcer D/C NN Start: 01/05/24 08:03 Freq: Status: Active Protocol: Activity Type Activity Date Activity User E-sign Co-sign Detail Recorded Client Recorded Date Recorded By Document 02/03/24 10:27 ANTONIO [id number] 02/03/24 11:21 ANTONIO 02/03/24 10:27 Pain Scale: 0-10 Numeric Is Patient Pain Free? 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 - Other specified disorders of the skin and subcutaneous tissue related to radiation; Y84.2 - Radiological procedure and radiotherapy as the cause of abnormal reaction of the patient, or of later complication, without mention of misadventure at the time of the procedure (2) Chronic radiation cystitis: CODE(S): N30.40 - Irradiation cystitis without hematuria (3) Bladder dysfunction: CODE(S): N31.9 - Neuromuscular dysfunction of bladder, unspecified (4) Prostate cancer: CODE(S): C61 - Malignant neoplasm of prostate PLAN: Plan The patient appears to be tolerating hyperbaric oxygen therapy well, which will be continued as per his medical plan.
== END 2024-02-04 23:59 | disposition home or self-care (01) ==
LOC: WC 08:30
PROVIDERS: PCP Family Medicine; Referring Provider Family Medicine; Visit Provider Nurse Practitioner
DX: N30.41 Irradiation cystitis with hematuria (principal); L59.8 Other specified disorders of the skin and subcutaneous tissue related to radiation; R31.0 Gross hematuria; N32.0 Bladder-neck obstruction; Y84.2 Radiological procedure and radiotherapy as the cause of abnormal reaction of the patient, or of later complication, without mention of misadventure at the time of the procedure; Z79.899 Other long term (current) drug therapy
CPT/HCPCS: 99183; G0277

== ENCOUNTER 2024-03-01 08:30 | Outpatient (RCR) | payer MEDICARE, OTHER, SELFPAY ==
--- NOTE | 2024-02-07 08:44 | HBO.PN.PCM_ITS ---
History of Present Illness Date of Service: 02/07/24 Chief Complaint: HBO for radiation necrosis and for reevaluation and renewal for 30 more HBO treatments History of Wound: Patient has history of prostate cancer and then had a radical prostatectomy done in 2011. In 2016 he had more problems and had 37 radiation treatments. 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 His urologist from [facility] is recommending HBO therapy to help treat his radiation cystitis. Patient states he these issues started last January, he now has issues with anemia. He has an indwelling Worthy catheter. His urine is typically clear, but he will have intermittent periods with bleeding. When he has bleeding, he will drink a large amount of water and that typically helps with the bleeding. Patient states that he was in the ED on Tuesday01/08/24 for bleeding from his catheter. He tried increasing his water intake but he continued to bleed. He decided to go to the ED when the jenny red blood continued. He states that they flushed his catheter which removed some blood clots. The bleeding decreased. CBC was 11.1. BUN 24, Creatinine 1.19. He will follow up with Dr. Gilliland. Progress of Wound: Progress: Today represents his 14th treatment session of a planned 30 HBOT sessions. Tolerance: Hyperbaric oxygen treatment was administered as per the facility's protocol at 2.0 GEORGE in 100% oxygen for 90 minutes without air breaks. The patient tolerated hyperbaric oxygen therapy without complaints or complications. Upon emergence from the hyperbaric chamber, his vitals remained stable and he was discharged in stable condition. Patient is doing very well and states that the bleeding has stopped that was consistently going on before he started the HBO treatments. The patient is feeling much improved in his care and his cancer recovery. Exam Physical Exam Const alert, oriented x3 and no apparent distress General Appearance: cooperative HEENT normocephalic HEENT Narrative: Bilateral Tympanostomy tubes in place. 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 - Other specified disorders of the skin and subcutaneous tissue related to radiation; Y84.2 - Radiological procedure and radiotherapy as the cause of abnormal reaction of the patient, or of later complication, without mention of misadventure at the time of the procedure (2) Chronic radiation cystitis: CODE(S): N30.40 - Irradiation cystitis without hematuria (3) Bladder dysfunction: CODE(S): N31.9 - Neuromuscular dysfunction of bladder, unspecified (4) Prostate cancer: CODE(S): C61 - Malignant neoplasm of prostate PLAN: Plan The patient appears to be tolerating hyperbaric oxygen therapy well, which will be continued as per his medical plan.
[2024-02-07 10:40] VITALS: BP 130/95; BP 135/79; PULSE 78; PULSE 99; RESP 14; TEMP 36.6; TEMP 36.9
[2024-02-08 10:46] VITALS: BP 127/72; BP 129/74; PULSE 75; PULSE 91; RESP 13; RESP 15; TEMP 36.6; TEMP 36.9
--- NOTE | 2024-02-08 13:06 | HBO.PN.PCM_ITS ---
History of Present Illness Date of Service: 02/08/24 Chief Complaint: HBO for radiation necrosis and for reevaluation and renewal for 30 more HBO treatments History of Wound: Patient has history of prostate cancer and then had a radical prostatectomy done in 2011. In 2016 he had more problems and had 37 radiation treatments. 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 His urologist from [facility] is recommending HBO therapy to help treat his radiation cystitis. Patient states he these issues started last January, he now has issues with anemia. He has an indwelling Worthy catheter. His urine is typically clear, but he will have intermittent periods with bleeding. When he has bleeding, he will drink a large amount of water and that typically helps with the bleeding. Patient states that he was in the ED on Tuesday01/08/24 for bleeding from his catheter. He tried increasing his water intake but he continued to bleed. He decided to go to the ED when the jenny red blood continued. He states that they flushed his catheter which removed some blood clots. The bleeding decreased. CBC was 11.1. BUN 24, Creatinine 1.19. He will follow up with Dr. Gilliland. Progress of Wound: Progress: Today represents his 15th treatment session of a planned 30 HBOT sessions. Patient is also being reassessed for additional 30 treatments patient is tolerating them very well and feels they are really helping. Tolerance: Hyperbaric oxygen treatment was administered as per the facility's protocol at 2.0 GEORGE in 100% oxygen for 90 minutes without air breaks. The patient tolerated hyperbaric oxygen therapy without complaints or complications. Upon emergence from the hyperbaric chamber, his vitals remained stable and he was discharged in stable condition. Patient is doing very well and states that the bleeding has stopped that was consistently going on before he started the HBO treatments. The patient is feeling much improved in his care and his cancer recovery. Subjective Subjective Agreeable to plan and tolerating treatments well Objective Data Objective Data Eitel signs have been stable throughout treatment and patient has not had a positive attitude with no issues happening while he is put under. Vital Signs: Vital Signs Temp Pulse Resp BP 98.4 F 91 15 129/74 H 02/08/24 10:46 02/08/24 10:46 02/08/24 10:46 02/08/24 10:46 Lab / Micro Data Attestation: I reviewed the patient's lab results. Exam Physical Exam Const alert, oriented x3 and no apparent distress General Appearance: cooperative HEENT normocephalic HEENT Narrative: Bilateral Tympanostomy tubes in place. 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 - Other specified disorders of the skin and subcutaneous tissue related to radiation; Y84.2 - Radiological procedure and radiotherapy as the cause of abnormal reaction of the patient, or of later complication, without mention of misadventure at the time of the procedure (2) Chronic radiation cystitis: CODE(S): N30.40 - Irradiation cystitis without hematuria (3) Bladder dysfunction: CODE(S): N31.9 - Neuromuscular dysfunction of bladder, unspecified (4) Prostate cancer: CODE(S): C61 - Malignant neoplasm of prostate PLAN: Plan The patient appears to be tolerating hyperbaric oxygen therapy well, which will be continued as per his medical plan.
--- NOTE | 2024-02-09 08:51 | HBO.PN.PCM_ITS ---
History of Present Illness Date of Service: 02/09/24 Chief Complaint: HBO for radiation necrosis and for reevaluation and renewal for 30 more HBO treatments History of Wound: Patient has history of prostate cancer and then had a radical prostatectomy done in 2011. In 2016 he had more problems and had 37 radiation treatments. 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 His urologist from [facility] is recommending HBO therapy to help treat his radiation cystitis. Patient states he these issues started last January, he now has issues with anemia. He has an indwelling Worthy catheter. His urine is typically clear, but he will have intermittent periods with bleeding. When he has bleeding, he will drink a large amount of water and that typically helps with the bleeding. Patient states that he was in the ED on Tuesday01/08/24 for bleeding from his catheter. He tried increasing his water intake but he continued to bleed. He decided to go to the ED when the jenny red blood continued. He states that they flushed his catheter which removed some blood clots. The bleeding decreased. CBC was 11.1. BUN 24, Creatinine 1.19. He will follow up with Dr. Gilliland. Progress of Wound: Progress: Today represents his 16th treatment session of 30 planned sessions. Tolerance: Hyperbaric oxygen treatment was administered as per the facility's protocol at 2.0 GEORGE in 100% oxygen for 90 minutes without air breaks. The patient tolerated hyperbaric oxygen therapy without complaints or complications. Upon emergence from the hyperbaric chamber, his vitals remained stable and he was discharged in stable condition. Objective Data Objective Data Vital Signs: Vital Signs Temp Pulse Resp BP 98.4 F 91 15 129/74 H 02/08/24 10:46 02/08/24 10:46 02/08/24 10:46 02/08/24 10:46 Exam Physical Exam Const alert, oriented x3 and no apparent distress General Appearance: cooperative, comfortable and well kempt HEENT normocephalic and head/scalp atraumatic Tympanic Membrane: other Other Details: Right tympanostomy tube in place. 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 - Other specified disorders of the skin and subcutaneous tissue related to radiation; Y84.2 - Radiological procedure and radiotherapy as the cause of abnormal reaction of the patient, or of later complication, without mention of misadventure at the time of the procedure (2) Chronic radiation cystitis: CODE(S): N30.40 - Irradiation cystitis without hematuria (3) Bladder dysfunction: CODE(S): N31.9 - Neuromuscular dysfunction of bladder, unspecified (4) Prostate cancer: CODE(S): C61 - Malignant neoplasm of prostate PLAN: Plan The patient appears to be tolerating hyperbaric oxygen therapy well, which will be continued as per his medical plan.
[2024-02-09 10:34] VITALS: BP 123/76; BP 132/70; PULSE 72; PULSE 85; RESP 14; TEMP 36.8; TEMP 37.1
[2024-02-10 11:39] VITALS: BP 129/70; BP 135/78; PULSE 72; PULSE 93; RESP 13; RESP 15; TEMP 36.8; TEMP 36.9
--- NOTE | 2024-02-10 15:29 | PCM.HBO.PN ---
History of Present Illness Date of Service: 02/10/24 Chief Complaint: HBO for radiation necrosis and for reevaluation and renewal for 30 more HBO treatments History of Wound: Patient has history of prostate cancer and then had a radical prostatectomy done in 2011. In 2016 he had more problems and had 37 radiation treatments. 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 His urologist from [facility] is recommending HBO therapy to help treat his radiation cystitis. Patient states he these issues started last January, he now has issues with anemia. He has an indwelling Worthy catheter. His urine is typically clear, but he will have intermittent periods with bleeding. When he has bleeding, he will drink a large amount of water and that typically helps with the bleeding. Patient states that he was in the ED on Tuesday01/08/24 for bleeding from his catheter. He tried increasing his water intake but he continued to bleed. He decided to go to the ED when the jenny red blood continued. He states that they flushed his catheter which removed some blood clots. The bleeding decreased. CBC was 11.1. BUN 24, Creatinine 1.19. He will follow up with Dr. Gilliland. Progress of Wound: Progress: Today represents his 17th treatment session of 30 planned sessions. Tolerance: Hyperbaric oxygen treatment was administered as per the facility's protocol at 2.0 GEORGE in 100% oxygen for 90 minutes without air breaks. The patient tolerated hyperbaric oxygen therapy without complaints or complications. Upon emergence from the hyperbaric chamber, his vitals remained stable and he was discharged in stable condition. 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 - Other specified disorders of the skin and subcutaneous tissue related to radiation; Y84.2 - Radiological procedure and radiotherapy as the cause of abnormal reaction of the patient, or of later complication, without mention of misadventure at the time of the procedure (2) Chronic radiation cystitis: CODE(S): N30.40 - Irradiation cystitis without hematuria (3) Bladder dysfunction: CODE(S): N31.9 - Neuromuscular dysfunction of bladder, unspecified (4) Prostate cancer: CODE(S): C61 - Malignant neoplasm of prostate PLAN: Plan The patient appears to be tolerating hyperbaric oxygen therapy well, which will be continued as per his medical plan.
--- NOTE | 2024-02-13 08:19 | HBO.PN.PCM_ITS ---
History of Present Illness Date of Service: 02/13/24 Chief Complaint: HBO for radiation necrosis and for reevaluation and renewal for 30 more HBO treatments History of Wound: Patient has history of prostate cancer and then had a radical prostatectomy done in 2011. In 2016 he had more problems and had 37 radiation treatments. 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 His urologist from [facility] is recommending HBO therapy to help treat his radiation cystitis. Patient states he these issues started last January, he now has issues with anemia. He has an indwelling Worthy catheter. His urine is typically clear, but he will have intermittent periods with bleeding. When he has bleeding, he will drink a large amount of water and that typically helps with the bleeding. Patient states that he was in the ED on Tuesday01/08/24 for bleeding from his catheter. He tried increasing his water intake but he continued to bleed. He decided to go to the ED when the jenny red blood continued. He states that they flushed his catheter which removed some blood clots. The bleeding decreased. CBC was 11.1. BUN 24, Creatinine 1.19. He will follow up with Dr. Gilliland. Progress of Wound: Progress: Today represents his 18th treatment session of 30 planned sessions. Tolerance: Hyperbaric oxygen treatment was administered as per the facility's protocol at 2.0 GEORGE in 100% oxygen for 90 minutes without air breaks. The patient tolerated hyperbaric oxygen therapy without complaints or complications. Upon emergence from the hyperbaric chamber, his vitals remained stable and he was discharged in stable condition. Objective Data Objective Data Vital Signs: Vital Signs Temp Pulse Resp BP 98.4 F 93 13 129/70 H 02/10/24 11:39 02/10/24 11:39 02/10/24 11:39 02/10/24 11:39 Exam Physical Exam Const alert, oriented x3 and no apparent distress General Appearance: cooperative HEENT normocephalic HEENT Narrative: Bilateral Tympanostomy tubes in place. 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 - Other specified disorders of the skin and subcutaneous tissue related to radiation; Y84.2 - Radiological procedure and radiotherapy as the cause of abnormal reaction of the patient, or of later complication, without mention of misadventure at the time of the procedure (2) Chronic radiation cystitis: CODE(S): N30.40 - Irradiation cystitis without hematuria (3) Bladder dysfunction: CODE(S): N31.9 - Neuromuscular dysfunction of bladder, unspecified (4) Prostate cancer: CODE(S): C61 - Malignant neoplasm of prostate PLAN: Plan The patient appears to be tolerating hyperbaric oxygen therapy well, which will be continued as per his medical plan.
[2024-02-13 10:19] VITALS: BP 111/59; BP 129/80; PULSE 71; PULSE 84; RESP 13; RESP 14; TEMP 36.8; TEMP 36.9
--- NOTE | 2024-02-14 08:23 | HBO.PN.PCM_ITS ---
History of Present Illness Date of Service: 02/14/24 Chief Complaint: HBO for radiation necrosis and for reevaluation and renewal for 30 more HBO treatments History of Wound: Patient has history of prostate cancer and then had a radical prostatectomy done in 2011. In 2016 he had more problems and had 37 radiation treatments. 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 His urologist from [facility] is recommending HBO therapy to help treat his radiation cystitis. Patient states he these issues started last January, he now has issues with anemia. He has an indwelling Worthy catheter. His urine is typically clear, but he will have intermittent periods with bleeding. When he has bleeding, he will drink a large amount of water and that typically helps with the bleeding. Patient states that he was in the ED on Tuesday01/08/24 for bleeding from his catheter. He tried increasing his water intake but he continued to bleed. He decided to go to the ED when the jenny red blood continued. He states that they flushed his catheter which removed some blood clots. The bleeding decreased. CBC was 11.1. BUN 24, Creatinine 1.19. He will follow up with Dr. Gilliland. Progress of Wound: Progress: Today represents his 19th treatment session of 30 planned sessions. Tolerance: Hyperbaric oxygen treatment was administered as per the facility's protocol at 2.0 GEORGE in 100% oxygen for 90 minutes without air breaks. The patient tolerated hyperbaric oxygen therapy without complaints or complications. Upon emergence from the hyperbaric chamber, his vitals remained stable and he was discharged in stable condition. Objective Data Objective Data Vital Signs: Vital Signs Temp Pulse Resp BP 98.3 F 84 14 111/59 L 02/13/24 10:19 02/13/24 10:19 02/13/24 10:19 02/13/24 10:19 Exam Physical Exam Const alert, oriented x3 and no apparent distress General Appearance: cooperative HEENT normocephalic HEENT Narrative: Bilateral Tympanostomy tubes in place. 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 - Other specified disorders of the skin and subcutaneous tissue related to radiation; Y84.2 - Radiological procedure and radiotherapy as the cause of abnormal reaction of the patient, or of later complication, without mention of misadventure at the time of the procedure (2) Chronic radiation cystitis: CODE(S): N30.40 - Irradiation cystitis without hematuria (3) Bladder dysfunction: CODE(S): N31.9 - Neuromuscular dysfunction of bladder, unspecified (4) Prostate cancer: CODE(S): C61 - Malignant neoplasm of prostate PLAN: Plan The patient appears to be tolerating hyperbaric oxygen therapy well, which will be continued as per his medical plan.
[2024-02-14 10:17] VITALS: BP 118/77; BP 131/74; PULSE 72; PULSE 87; RESP 12; RESP 13; TEMP 36.8; TEMP 37.1
[2024-02-15 10:17] VITALS: BP 121/65; BP 125/75; PULSE 70; PULSE 90; RESP 13; RESP 14; TEMP 36.7; TEMP 36.8
--- NOTE | 2024-02-15 11:31 | PCM.HBO.PN ---
History of Present Illness Date of Service: 02/15/24 Chief Complaint: HBO for radiation necrosis and for reevaluation and renewal for 30 more HBO treatments History of Wound: Patient has history of prostate cancer and then had a radical prostatectomy done in 2011. In 2016 he had more problems and had 37 radiation treatments. 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 His urologist from [facility] is recommending HBO therapy to help treat his radiation cystitis. Patient states he these issues started last January, he now has issues with anemia. He has an indwelling Worthy catheter. His urine is typically clear, but he will have intermittent periods with bleeding. When he has bleeding, he will drink a large amount of water and that typically helps with the bleeding. Patient states that he was in the ED on Tuesday01/08/24 for bleeding from his catheter. He tried increasing his water intake but he continued to bleed. He decided to go to the ED when the jenny red blood continued. He states that they flushed his catheter which removed some blood clots. The bleeding decreased. CBC was 11.1. BUN 24, Creatinine 1.19. He will follow up with Dr. Gilliland. Progress of Wound: Progress: Today represents his 120th treatment session of 30 planned sessions. Tolerance: Hyperbaric oxygen treatment was administered as per the facility's protocol at 2.0 GEORGE in 100% oxygen for 90 minutes without air breaks. The patient tolerated hyperbaric oxygen therapy without complaints or complications. Upon emergence from the hyperbaric chamber, his vitals remained stable and he was discharged in stable condition. Objective Data Objective Data Doing well with no complaints vital signs are stable patient has no concerns and we are still pending on his continued treatments for another 30. Vital Signs: Vital Signs Temp Pulse Resp BP 98.2 F 90 14 121/65 H 02/15/24 10:17 02/15/24 10:17 02/15/24 10:17 02/15/24 10:17 Exam Physical Exam Const alert, oriented x3 and no apparent distress General Appearance: cooperative HEENT normocephalic HEENT Narrative: Bilateral Tympanostomy tubes in place. 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 - Other specified disorders of the skin and subcutaneous tissue related to radiation; Y84.2 - Radiological procedure and radiotherapy as the cause of abnormal reaction of the patient, or of later complication, without mention of misadventure at the time of the procedure (2) Chronic radiation cystitis: CODE(S): N30.40 - Irradiation cystitis without hematuria (3) Bladder dysfunction: CODE(S): N31.9 - Neuromuscular dysfunction of bladder, unspecified (4) Prostate cancer: CODE(S): C61 - Malignant neoplasm of prostate PLAN: Plan The patient appears to be tolerating hyperbaric oxygen therapy well, which will be continued as per his medical plan.
--- NOTE | 2024-02-16 10:10 | PCM.HBO.PN ---
History of Present Illness Date of Service: 02/16/24 Chief Complaint: HBO for radiation necrosis and for reevaluation and renewal for 30 more HBO treatments History of Wound: Patient has history of prostate cancer and then had a radical prostatectomy done in 2011. In 2016 he had more problems and had 37 radiation treatments. 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 His urologist from [facility] is recommending HBO therapy to help treat his radiation cystitis. Patient states he these issues started last January, he now has issues with anemia. He has an indwelling Worthy catheter. His urine is typically clear, but he will have intermittent periods with bleeding. When he has bleeding, he will drink a large amount of water and that typically helps with the bleeding. Patient states that he was in the ED on Tuesday01/08/24 for bleeding from his catheter. He tried increasing his water intake but he continued to bleed. He decided to go to the ED when the jenny red blood continued. He states that they flushed his catheter which removed some blood clots. The bleeding decreased. CBC was 11.1. BUN 24, Creatinine 1.19. He will follow up with Dr. Gilliland. Progress of Wound: Progress: Today represents the 21st treatment session of 30 planned sessions. Tolerance: Hyperbaric oxygen treatment was administered as per the facility's protocol at 2.0 GEORGE in 100% oxygen for 90 minutes without air breaks. The patient tolerated hyperbaric oxygen therapy without complaints or complications. Upon emergence from the hyperbaric chamber, his vitals remained stable and he was discharged in stable condition. Objective Data Objective Data Vital Signs: Vital Signs Temp Pulse Resp BP 98.2 F 90 14 121/65 H 02/15/24 10:17 02/15/24 10:17 02/15/24 10:17 02/15/24 10:17 Exam Physical Exam Const alert, oriented x3 and no apparent distress General Appearance: cooperative, comfortable and well kempt HEENT normocephalic and head/scalp atraumatic Tympanic Membrane: other Other Details: Right tympanostomy tube in place. 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 - Other specified disorders of the skin and subcutaneous tissue related to radiation; Y84.2 - Radiological procedure and radiotherapy as the cause of abnormal reaction of the patient, or of later complication, without mention of misadventure at the time of the procedure (2) Chronic radiation cystitis: CODE(S): N30.40 - Irradiation cystitis without hematuria (3) Bladder dysfunction: CODE(S): N31.9 - Neuromuscular dysfunction of bladder, unspecified (4) Prostate cancer: CODE(S): C61 - Malignant neoplasm of prostate PLAN: Plan The patient appears to be tolerating hyperbaric oxygen therapy well, which will be continued as per his medical plan.
[2024-02-16 11:17] VITALS: BP 123/71; BP 123/74; PULSE 73; PULSE 86; RESP 13; RESP 14; TEMP 36.7; TEMP 36.9
[2024-02-17 10:28] VITALS: BP 125/71; BP 131/72; PULSE 72; PULSE 74; RESP 13; RESP 14; TEMP 36.8; TEMP 37.1
--- NOTE | 2024-02-17 13:36 | HBO.PN.PCM_ITS ---
History of Present Illness Date of Service: 02/17/24 Chief Complaint: HBO for radiation necrosis and for reevaluation and renewal for 30 more HBO treatments History of Wound: Patient has history of prostate cancer and then had a radical prostatectomy done in 2011. In 2016 he had more problems and had 37 radiation treatments. 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 His urologist from [facility] is recommending HBO therapy to help treat his radiation cystitis. Patient states he these issues started last January, he now has issues with anemia. He has an indwelling Worthy catheter. His urine is typically clear, but he will have intermittent periods with bleeding. When he has bleeding, he will drink a large amount of water and that typically helps with the bleeding. Patient states that he was in the ED on Tuesday01/08/24 for bleeding from his catheter. He tried increasing his water intake but he continued to bleed. He decided to go to the ED when the jenny red blood continued. He states that they flushed his catheter which removed some blood clots. The bleeding decreased. CBC was 11.1. BUN 24, Creatinine 1.19. He will follow up with Dr. Gilliland. Progress of Wound: Progress: Today represents the 22nd treatment session of 30 planned sessions. Tolerance: Hyperbaric oxygen treatment was administered as per the facility's protocol at 2.0 GEORGE in 100% oxygen for 90 minutes without air breaks. The patient tolerated hyperbaric oxygen therapy without complaints or complications. Upon emergence from the hyperbaric chamber, his vitals remained stable and he was discharged in stable condition. 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 - Other specified disorders of the skin and subcutaneous tissue related to radiation; Y84.2 - Radiological procedure and radiotherapy as the cause of abnormal reaction of the patient, or of later complication, without mention of misadventure at the time of the procedure (2) Chronic radiation cystitis: CODE(S): N30.40 - Irradiation cystitis without hematuria (3) Bladder dysfunction: CODE(S): N31.9 - Neuromuscular dysfunction of bladder, unspecified (4) Prostate cancer: CODE(S): C61 - Malignant neoplasm of prostate PLAN: Plan The patient appears to be tolerating hyperbaric oxygen therapy well, which will be continued as per his medical plan.
--- NOTE | 2024-02-20 08:45 | HBO.PN.PCM_ITS ---
History of Present Illness Date of Service: 02/20/24 Chief Complaint: HBO for radiation necrosis and for reevaluation and renewal for 30 more HBO treatments History of Wound: Patient has history of prostate cancer and then had a radical prostatectomy done in 2011. In 2016 he had more problems and had 37 radiation treatments. 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 His urologist from [facility] is recommending HBO therapy to help treat his radiation cystitis. Patient states he these issues started last January, he now has issues with anemia. He has an indwelling Worthy catheter. His urine is typically clear, but he will have intermittent periods with bleeding. When he has bleeding, he will drink a large amount of water and that typically helps with the bleeding. Patient states that he was in the ED on Tuesday01/08/24 for bleeding from his catheter. He tried increasing his water intake but he continued to bleed. He decided to go to the ED when the jenny red blood continued. He states that they flushed his catheter which removed some blood clots. The bleeding decreased. CBC was 11.1. BUN 24, Creatinine 1.19. He will follow up with Dr. Gilliland. Progress of Wound: Progress: Today represents the 23rd treatment session of 30 planned sessions. Tolerance: Hyperbaric oxygen treatment was administered as per the facility's protocol at 2.0 GEORGE in 100% oxygen for 90 minutes without air breaks. The patient tolerated hyperbaric oxygen therapy without complaints or complications. Upon emergence from the hyperbaric chamber, his vitals remained stable and he was discharged in stable condition. Objective Data Objective Data Vital Signs: Vital Signs Temp Pulse Resp BP 98.7 F 72 14 131/72 H 02/17/24 10:28 02/17/24 10:28 02/17/24 10:28 02/17/24 10:28 Exam Physical Exam Const alert, oriented x3 and no apparent distress General Appearance: cooperative HEENT normocephalic HEENT Narrative: Bilateral Tympanostomy tubes in place. 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 - Other specified disorders of the skin and subcutaneous tissue related to radiation; Y84.2 - Radiological procedure and radiotherapy as the cause of abnormal reaction of the patient, or of later complication, without mention of misadventure at the time of the procedure (2) Chronic radiation cystitis: CODE(S): N30.40 - Irradiation cystitis without hematuria (3) Bladder dysfunction: CODE(S): N31.9 - Neuromuscular dysfunction of bladder, unspecified (4) Prostate cancer: CODE(S): C61 - Malignant neoplasm of prostate PLAN: Plan The patient appears to be tolerating hyperbaric oxygen therapy well, which will be continued as per his medical plan.
[2024-02-20 10:41] VITALS: BP 128/75; BP 139/80; PULSE 71; PULSE 87; RESP 14; RESP 16; TEMP 36.6; TEMP 36.7
[2024-02-21 10:30] VITALS: BP 130/70; BP 134/83; PULSE 75; PULSE 91; RESP 15; TEMP 36.5; TEMP 37.1
--- NOTE | 2024-02-21 11:52 | PCM.HBO.PN ---
History of Present Illness Date of Service: 02/21/24 Chief Complaint: HBO for radiation necrosis and for reevaluation and renewal for 30 more HBO treatments History of Wound: Patient has history of prostate cancer and then had a radical prostatectomy done in 2011. In 2016 he had more problems and had 37 radiation treatments. 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 His urologist from [facility] is recommending HBO therapy to help treat his radiation cystitis. Patient states he these issues started last January, he now has issues with anemia. He has an indwelling Worthy catheter. His urine is typically clear, but he will have intermittent periods with bleeding. When he has bleeding, he will drink a large amount of water and that typically helps with the bleeding. Patient states that he was in the ED on Tuesday01/08/24 for bleeding from his catheter. He tried increasing his water intake but he continued to bleed. He decided to go to the ED when the jenny red blood continued. He states that they flushed his catheter which removed some blood clots. The bleeding decreased. CBC was 11.1. BUN 24, Creatinine 1.19. He will follow up with Dr. Gilliland. Progress of Wound: Progress: Today represents the 24th treatment session of 30 planned sessions. Tolerance: Hyperbaric oxygen treatment was administered as per the facility's protocol at 2.0 GEORGE in 100% oxygen for 90 minutes without air breaks. The patient tolerated hyperbaric oxygen therapy without complaints or complications. Upon emergence from the hyperbaric chamber, his vitals remained stable and he was discharged in stable condition. Objective Data Objective Data Vital Signs: Vital Signs Temp Pulse Resp BP 98.8 F 91 15 130/70 H 02/21/24 10:30 02/21/24 10:30 02/21/24 10:30 02/21/24 10:30 Exam Physical Exam Const alert, oriented x3 and no apparent distress General Appearance: cooperative HEENT normocephalic HEENT Narrative: Bilateral Tympanostomy tubes in place. 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 - Other specified disorders of the skin and subcutaneous tissue related to radiation; Y84.2 - Radiological procedure and radiotherapy as the cause of abnormal reaction of the patient, or of later complication, without mention of misadventure at the time of the procedure (2) Chronic radiation cystitis: CODE(S): N30.40 - Irradiation cystitis without hematuria (3) Bladder dysfunction: CODE(S): N31.9 - Neuromuscular dysfunction of bladder, unspecified (4) Prostate cancer: CODE(S): C61 - Malignant neoplasm of prostate PLAN: Plan The patient appears to be tolerating hyperbaric oxygen therapy well, which will be continued as per his medical plan.
[2024-02-22 10:09] VITALS: BP 128/78; BP 135/72; PULSE 72; PULSE 98; RESP 13; RESP 14; TEMP 36.9; TEMP 37
--- NOTE | 2024-02-22 12:07 | HBO.PN.PCM_ITS ---
History of Present Illness Date of Service: 02/15/24 Chief Complaint: HBO for radiation necrosis and for reevaluation and renewal for 30 more HBO treatments History of Wound: Patient has history of prostate cancer and then had a radical prostatectomy done in 2011. In 2016 he had more problems and had 37 radiation treatments. 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 His urologist from [facility] is recommending HBO therapy to help treat his radiation cystitis. Patient states he these issues started last January, he now has issues with anemia. He has an indwelling Worthy catheter. His urine is typically clear, but he will have intermittent periods with bleeding. When he has bleeding, he will drink a large amount of water and that typically helps with the bleeding. Patient states that he was in the ED on Tuesday01/08/24 for bleeding from his catheter. He tried increasing his water intake but he continued to bleed. He decided to go to the ED when the jenny red blood continued. He states that they flushed his catheter which removed some blood clots. The bleeding decreased. CBC was 11.1. BUN 24, Creatinine 1.19. He will follow up with Dr. Gilliland. Progress of Wound: Progress: Today represents the 25th treatment session of 30 planned sessions. Tolerance: Hyperbaric oxygen treatment was administered as per the facility's protocol at 2.0 GEORGE in 100% oxygen for 90 minutes without air breaks. The patient tolerated hyperbaric oxygen therapy without complaints or complications. Upon emergence from the hyperbaric chamber, his vitals remained stable and he was discharged in stable condition. Subjective Subjective No concerns Objective Data Objective Data Vital signs stable patient tolerated treatment well Vital Signs: Vital Signs Temp Pulse Resp BP 98.6 F 98 14 135/72 H 02/22/24 10:02/22/24 10:02/22/24 10:02/22/24 10:09 Exam Physical Exam Const alert, oriented x3 and no apparent distress General Appearance: cooperative HEENT normocephalic HEENT Narrative: Bilateral Tympanostomy tubes in place. 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 - Other specified disorders of the skin and subcutaneous tissue related to radiation; Y84.2 - Radiological procedure and radiotherapy as the cause of abnormal reaction of the patient, or of later complication, without mention of misadventure at the time of the procedure (2) Chronic radiation cystitis: CODE(S): N30.40 - Irradiation cystitis without hematuria (3) Bladder dysfunction: CODE(S): N31.9 - Neuromuscular dysfunction of bladder, unspecified (4) Prostate cancer: CODE(S): C61 - Malignant neoplasm of prostate PLAN: Plan The patient appears to be tolerating hyperbaric oxygen therapy well, which will be continued as per his medical plan.
--- NOTE | 2024-02-23 08:17 | PCM.HBO.PN ---
History of Present Illness Date of Service: 02/23/24 Chief Complaint: HBO for radiation necrosis and for reevaluation and renewal for 30 more HBO treatments History of Wound: Patient has history of prostate cancer and then had a radical prostatectomy done in 2011. In 2016 he had more problems and had 37 radiation treatments. 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 His urologist from [facility] is recommending HBO therapy to help treat his radiation cystitis. Patient states he these issues started last January, he now has issues with anemia. He has an indwelling Worthy catheter. His urine is typically clear, but he will have intermittent periods with bleeding. When he has bleeding, he will drink a large amount of water and that typically helps with the bleeding. Patient states that he was in the ED on Tuesday01/08/24 for bleeding from his catheter. He tried increasing his water intake but he continued to bleed. He decided to go to the ED when the jenny red blood continued. He states that they flushed his catheter which removed some blood clots. The bleeding decreased. CBC was 11.1. BUN 24, Creatinine 1.19. He will follow up with Dr. Gilliland. Progress of Wound: Progress: Today represents the 26th treatment session of 30 planned sessions. Tolerance: Hyperbaric oxygen treatment was administered as per the facility's protocol at 2.0 GEORGE in 100% oxygen for 90 minutes without air breaks. The patient tolerated hyperbaric oxygen therapy without complaints or complications. Upon emergence from the hyperbaric chamber, his vitals remained stable and he was discharged in stable condition. Objective Data Objective Data Vital Signs: Vital Signs Temp Pulse Resp BP 98.6 F 98 14 135/72 H 02/22/24 10:02/22/24 10:02/22/24 10:02/22/24 10:09 Exam Physical Exam Const alert, oriented x3 and no apparent distress General Appearance: cooperative, comfortable and well kempt HEENT normocephalic and head/scalp atraumatic Tympanic Membrane: other Other Details: Bilateral tympanostomy tubes noted. 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 - Other specified disorders of the skin and subcutaneous tissue related to radiation; Y84.2 - Radiological procedure and radiotherapy as the cause of abnormal reaction of the patient, or of later complication, without mention of misadventure at the time of the procedure (2) Chronic radiation cystitis: CODE(S): N30.40 - Irradiation cystitis without hematuria (3) Bladder dysfunction: CODE(S): N31.9 - Neuromuscular dysfunction of bladder, unspecified (4) Prostate cancer: CODE(S): C61 - Malignant neoplasm of prostate PLAN: Plan The patient appears to be tolerating hyperbaric oxygen therapy well, which will be continued as per his medical plan.
[2024-02-23 10:26] VITALS: BP 104/62; BP 120/77; PULSE 73; PULSE 85; RESP 14; TEMP 36.9
--- NOTE | 2024-02-27 09:06 | HBO.PN.PCM_ITS ---
History of Present Illness Date of Service: 02/27/24 Chief Complaint: HBO for radiation necrosis and for reevaluation and renewal for 30 more HBO treatments History of Wound: Patient has history of prostate cancer and then had a radical prostatectomy done in 2011. In 2016 he had more problems and had 37 radiation treatments. 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 His urologist from [facility] is recommending HBO therapy to help treat his radiation cystitis. Patient states he these issues started last January, he now has issues with anemia. He has an indwelling Worthy catheter. His urine is typically clear, but he will have intermittent periods with bleeding. When he has bleeding, he will drink a large amount of water and that typically helps with the bleeding. Patient states that he was in the ED on Tuesday01/08/24 for bleeding from his catheter. He tried increasing his water intake but he continued to bleed. He decided to go to the ED when the jenny red blood continued. He states that they flushed his catheter which removed some blood clots. The bleeding decreased. CBC was 11.1. BUN 24, Creatinine 1.19. He will follow up with Dr. Gilliland. Progress of Wound: Progress: Today represents the 27th treatment session of 30 planned sessions. Tolerance: Hyperbaric oxygen treatment was administered as per the facility's protocol at 2.0 GEORGE in 100% oxygen for 90 minutes without air breaks. The patient tolerated hyperbaric oxygen therapy without complaints or complications. Upon emergence from the hyperbaric chamber, his vitals remained stable and he was discharged in stable condition. Subjective Subjective I talked to Mr. Milan today about his cystitis and the treatment with HBO. He seems to think the HBO is helping with the bleeding problems. No pain in ears. No new respiratory complaints. Objective Data Objective Data Vital Signs: Vital Signs Temp Pulse Resp BP 98.4 F 85 14 104/62 02/23/24 10:26 02/23/24 10:26 02/23/24 10:26 02/23/24 10:26 Exam Physical Exam Const alert, oriented x3 and no apparent distress General Appearance: cooperative, comfortable and well kempt HEENT normocephalic and head/scalp atraumatic Tympanic Membrane: other Other Details: Bilateral tympanostomy tubes noted. Eyes EOMs intact bilaterally Neck full ROM and supple General: normal visual inspection Resp normal respiratory effort and clear to auscultation bilaterally Effort and Inspection: able to speak in complete sentences Cardio regular rate, regular rhythm, S1 normal heart sound, S2 normal heart sound, no murmurs, no rub, no gallops and no clicks Neuro oriented x3, CN's II-XII intact bilaterally and moves all extremities Psych mental status grossly normal, thought process normal, cooperative and affect normal Charges/Coding Wound [facility] CF Procedures HBO Supervision: [id number] Hyperbaric Oxygen; supervision Assessment/Plan Assessment/Plan (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 - Other specified disorders of the skin and subcutaneous tissue related to radiation; Y84.2 - Radiological procedure and radiotherapy as the cause of abnormal reaction of the patient, or of later complication, without mention of misadventure at the time of the procedure (2) Chronic radiation cystitis: CODE(S): N30.40 - Irradiation cystitis without hematuria (3) Bladder dysfunction: CODE(S): N31.9 - Neuromuscular dysfunction of bladder, unspecified (4) Prostate cancer: CODE(S): C61 - Malignant neoplasm of prostate PLAN: Plan The patient appears to be tolerating hyperbaric oxygen therapy well, which will be continued as per his medical plan.
[2024-02-27 10:12] VITALS: BP 122/77; BP 133/73; PULSE 70; PULSE 96; RESP 15; RESP 16; TEMP 36.8
[2024-02-28 08:51] VITALS: BP 124/74; BP 127/71; PULSE 70; PULSE 97; RESP 14; RESP 16; TEMP 36.8; TEMP 37
--- NOTE | 2024-02-28 10:29 | HBO.PN.PCM_ITS ---
History of Present Illness Date of Service: 02/28/24 Chief Complaint: HBO for radiation necrosis and for reevaluation and renewal for 30 more HBO treatments History of Wound: Patient has history of prostate cancer and then had a radical prostatectomy done in 2011. In 2016 he had more problems and had 37 radiation treatments. 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 His urologist from [facility] is recommending HBO therapy to help treat his radiation cystitis. Patient states he these issues started last January, he now has issues with anemia. He has an indwelling Worthy catheter. His urine is typically clear, but he will have intermittent periods with bleeding. When he has bleeding, he will drink a large amount of water and that typically helps with the bleeding. Patient states that he was in the ED on Tuesday01/08/24 for bleeding from his catheter. He tried increasing his water intake but he continued to bleed. He decided to go to the ED when the jenny red blood continued. He states that they flushed his catheter which removed some blood clots. The bleeding decreased. CBC was 11.1. BUN 24, Creatinine 1.19. He will follow up with Dr. Gilliland. Progress of Wound: Progress: Today represents the 28th treatment session of 30 planned sessions. Tolerance: Hyperbaric oxygen treatment was administered as per the facility's protocol at 2.0 GEORGE in 100% oxygen for 90 minutes without air breaks. The patient tolerated hyperbaric oxygen therapy without complaints or complications. Upon emergence from the hyperbaric chamber, his vitals remained stable and he was discharged in stable condition. Subjective Subjective Doing well this morning. No new complaints since yesterday Objective Data Objective Data Vital Signs: Vital Signs Temp Pulse Resp BP 98.6 F 97 14 127/71 H 02/28/24 08:51 02/28/24 08:51 02/28/24 08:51 02/28/24 08:51 Exam Physical Exam Const alert, oriented x3 and no apparent distress General Appearance: cooperative, comfortable and well kempt HEENT normocephalic and head/scalp atraumatic Tympanic Membrane: other Other Details: Bilateral tympanostomy tubes noted. Eyes EOMs intact bilaterally Neck full ROM and supple General: normal visual inspection Resp normal respiratory effort and clear to auscultation bilaterally Effort and Inspection: able to speak in complete sentences Cardio regular rate, regular rhythm, S1 normal heart sound, S2 normal heart sound, no murmurs, no rub, no gallops and no clicks Neuro oriented x3, CN's II-XII intact bilaterally and moves all extremities Psych mental status grossly normal, thought process normal, cooperative and affect normal Charges/Coding Wound Center CF Procedures HBO Supervision: [id number] Hyperbaric Oxygen; supervision Assessment/Plan Assessment/Plan (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 - Other specified disorders of the skin and subcutaneous tissue related to radiation; Y84.2 - Radiological procedure and radiotherapy as the cause of abnormal reaction of the patient, or of later complication, without mention of misadventure at the time of the procedure (2) Chronic radiation cystitis: CODE(S): N30.40 - Irradiation cystitis without hematuria (3) Bladder dysfunction: CODE(S): N31.9 - Neuromuscular dysfunction of bladder, unspecified (4) Prostate cancer: CODE(S): C61 - Malignant neoplasm of prostate PLAN: Plan The patient appears to be tolerating hyperbaric oxygen therapy well, which will be continued as per his medical plan.
[2024-02-29 10:09] VITALS: BP 128/78; BP 135/89; PULSE 104; PULSE 74; RESP 14; RESP 15; TEMP 36.8
--- NOTE | 2024-02-29 12:42 | HBO.PN.PCM_ITS ---
History of Present Illness Date of Service: 02/29/24 Chief Complaint: HBO for radiation necrosis and for reevaluation and renewal for 30 more HBO treatments History of Wound: Patient has history of prostate cancer and then had a radical prostatectomy done in 2011. In 2016 he had more problems and had 37 radiation treatments. 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 His urologist from [facility] is recommending HBO therapy to help treat his radiation cystitis. Patient states he these issues started last January, he now has issues with anemia. He has an indwelling Worthy catheter. His urine is typically clear, but he will have intermittent periods with bleeding. When he has bleeding, he will drink a large amount of water and that typically helps with the bleeding. Patient states that he was in the ED on Tuesday01/08/24 for bleeding from his catheter. He tried increasing his water intake but he continued to bleed. He decided to go to the ED when the jenny red blood continued. He states that they flushed his catheter which removed some blood clots. The bleeding decreased. CBC was 11.1. BUN 24, Creatinine 1.19. He will follow up with Dr. Gilliland. Progress of Wound: Progress: Today represents the 28th treatment session of 30 planned sessions. Tolerance: Hyperbaric oxygen treatment was administered as per the facility's protocol at 2.0 GEORGE in 100% oxygen for 90 minutes without air breaks. The patient tolerated hyperbaric oxygen therapy without complaints or complications. Upon emergence from the hyperbaric chamber, his vitals remained stable and he was discharged in stable condition. Subjective Subjective Patient tolerated treatments well vital signs stayed stable Objective Data Objective Data As above vital signs are stable patient tolerated treatment well we will continue with further treatments. Still pending is his qualifications to continue for another 30 days Vital Signs: Vital Signs Temp Pulse Resp BP 98.2 F 104 H 15 135/89 H 02/29/24 10:02/29/24 10:02/29/24 10:02/29/24 10:09 Exam Physical Exam Const alert, oriented x3 and no apparent distress General Appearance: cooperative, comfortable and well kempt HEENT normocephalic and head/scalp atraumatic Tympanic Membrane: other Other Details: Bilateral tympanostomy tubes noted. 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 - Other specified disorders of the skin and subcutaneous tissue related to radiation; Y84.2 - Radiological procedure and radiotherapy as the cause of abnormal reaction of the patient, or of later complication, without mention of misadventure at the time of the procedure (2) Chronic radiation cystitis: CODE(S): N30.40 - Irradiation cystitis without hematuria (3) Bladder dysfunction: CODE(S): N31.9 - Neuromuscular dysfunction of bladder, unspecified (4) Prostate cancer: CODE(S): C61 - Malignant neoplasm of prostate PLAN: Plan The patient appears to be tolerating hyperbaric oxygen therapy well, which will be continued as per his medical plan.
--- NOTE | 2024-03-01 08:48 | PCM.HBO.PN ---
History of Present Illness Date of Service: 03/01/24 Chief Complaint: HBO for radiation necrosis and for reevaluation and renewal for 30 more HBO treatments History of Wound: Patient has history of prostate cancer and then had a radical prostatectomy done in 2011. In 2016 he had more problems and had 37 radiation treatments. 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 His urologist from [facility] is recommending HBO therapy to help treat his radiation cystitis. Patient states he these issues started last January, he now has issues with anemia. He has an indwelling Worthy catheter. His urine is typically clear, but he will have intermittent periods with bleeding. When he has bleeding, he will drink a large amount of water and that typically helps with the bleeding. Patient states that he was in the ED on Tuesday01/08/24 for bleeding from his catheter. He tried increasing his water intake but he continued to bleed. He decided to go to the ED when the jenny red blood continued. He states that they flushed his catheter which removed some blood clots. The bleeding decreased. CBC was 11.1. BUN 24, Creatinine 1.19. He will follow up with Dr. Gilliland. Progress of Wound: Progress: Today represents the 30th treatment session of 30 planned sessions. Tolerance: Hyperbaric oxygen treatment was administered as per the facility's protocol at 2.0 GEORGE in 100% oxygen for 90 minutes without air breaks. The patient tolerated hyperbaric oxygen therapy without complaints or complications. Upon emergence from the hyperbaric chamber, his vitals remained stable and he was discharged in stable condition. Objective Data Objective Data Vital Signs: Vital Signs Temp Pulse Resp BP 98.2 F 104 H 15 135/89 H 02/29/24 10:02/29/24 10:02/29/24 10:02/29/24 10:09 Exam Physical Exam Const alert, oriented x3 and no apparent distress General Appearance: cooperative HEENT normocephalic HEENT Narrative: Bilateral Tympanostomy tubes in place. 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 - Other specified disorders of the skin and subcutaneous tissue related to radiation; Y84.2 - Radiological procedure and radiotherapy as the cause of abnormal reaction of the patient, or of later complication, without mention of misadventure at the time of the procedure (2) Chronic radiation cystitis: CODE(S): N30.40 - Irradiation cystitis without hematuria (3) Bladder dysfunction: CODE(S): N31.9 - Neuromuscular dysfunction of bladder, unspecified (4) Prostate cancer: CODE(S): C61 - Malignant neoplasm of prostate PLAN: Plan The patient appears to be tolerating hyperbaric oxygen therapy well, which will be continued as per his medical plan.
[2024-03-01 10:44] VITALS: BP 119/79; BP 133/61; PULSE 68; PULSE 94; RESP 14; TEMP 36.5; TEMP 36.8
== END 2024-03-05 23:59 | disposition home or self-care (01) ==
LOC: WC 08:30
PROVIDERS: PCP Family Medicine; Referring Provider Family Medicine; Visit Provider Nurse Practitioner Family
DX: L59.8 Other specified disorders of the skin and subcutaneous tissue related to radiation (principal); Y84.2 Radiological procedure and radiotherapy as the cause of abnormal reaction of the patient, or of later complication, without mention of misadventure at the time of the procedure; N30.40 Irradiation cystitis without hematuria; N31.9 Neuromuscular dysfunction of bladder, unspecified; Z79.899 Other long term (current) drug therapy; Z85.46 Personal history of malignant neoplasm of prostate; Z90.79 Acquired absence of other genital organ(s)
CPT/HCPCS: 99183; G0277

== ENCOUNTER 2024-03-22 08:00 | Outpatient (RCR) | payer MEDICARE, OTHER, SELFPAY ==
--- NOTE | 2024-03-12 09:02 | PCM.HBO.PN ---
History of Present Illness Date of Service: 03/12/24 Chief Complaint: HBO for radiation necrosis History of Wound: Patient has history of prostate cancer and then had a radical prostatectomy done in 2011. In 2016 he had more problems and had 37 radiation treatments. 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 His urologist from [facility] is recommending HBO therapy to help treat his radiation cystitis. Patient states he these issues started last January, he now has issues with anemia. He has an indwelling Worthy catheter. His urine is typically clear, but he will have intermittent periods with bleeding. When he has bleeding, he will drink a large amount of water and that typically helps with the bleeding. Patient states that he was in the ED on Tuesday01/08/24 for bleeding from his catheter. He tried increasing his water intake but he continued to bleed. He decided to go to the ED when the jenyn red blood continued. He states that they flushed his catheter which removed some blood clots. The bleeding decreased. CBC was 11.1. BUN 24, Creatinine 1.19. He will follow up with Dr. Gilliland. Progress of Wound: Progress: Today represents the 31th treatment session of 60 planned sessions, he has been approved for an additional treatments (60 total). Tolerance: Hyperbaric oxygen treatment was administered as per the facility's protocol at 2.0 GEORGE in 100% oxygen for 90 minutes without air breaks. The patient tolerated hyperbaric oxygen therapy without complaints or complications. Upon emergence from the hyperbaric chamber, his vitals remained stable and he was discharged in stable condition. Exam Physical Exam Const alert, oriented x3 and no apparent distress General Appearance: cooperative HEENT normocephalic HEENT Narrative: Bilateral Tympanostomy tubes in place. 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 - Other specified disorders of the skin and subcutaneous tissue related to radiation; Y84.2 - Radiological procedure and radiotherapy as the cause of abnormal reaction of the patient, or of later complication, without mention of misadventure at the time of the procedure (2) Chronic radiation cystitis: CODE(S): N30.40 - Irradiation cystitis without hematuria (3) Bladder dysfunction: CODE(S): N31.9 - Neuromuscular dysfunction of bladder, unspecified (4) Prostate cancer: CODE(S): C61 - Malignant neoplasm of prostate PLAN: Plan The patient appears to be tolerating hyperbaric oxygen therapy well, which will be continued as per his medical plan.
[2024-03-12 10:38] VITALS: BP 123/70; BP 125/68; PULSE 73; PULSE 87; RESP 16; TEMP 36.6; TEMP 37
--- NOTE | 2024-03-13 08:51 | HBO.PN.PCM_ITS ---
History of Present Illness Date of Service: 03/13/24 Chief Complaint: HBO for radiation necrosis History of Wound: Patient has history of prostate cancer and then had a radical prostatectomy done in 2011. In 2016 he had more problems and had 37 radiation treatments. 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 His urologist from [facility] is recommending HBO therapy to help treat his radiation cystitis. Patient states he these issues started last January, he now has issues with anemia. He has an indwelling Worthy catheter. His urine is typically clear, but he will have intermittent periods with bleeding. When he has bleeding, he will drink a large amount of water and that typically helps with the bleeding. Patient states that he was in the ED on Tuesday01/08/24 for bleeding from his catheter. He tried increasing his water intake but he continued to bleed. He decided to go to the ED when the jenny red blood continued. He states that they flushed his catheter which removed some blood clots. The bleeding decreased. CBC was 11.1. BUN 24, Creatinine 1.19. He will follow up with Dr. Gilliland. Progress of Wound: Progress: Today represents the 32nd treatment session of 60 planned sessions, he has been approved for an additional treatments (60 total). Tolerance: Hyperbaric oxygen treatment was administered as per the facility's protocol at 2.0 GEORGE in 100% oxygen for 90 minutes without air breaks. The patient tolerated hyperbaric oxygen therapy without complaints or complications. Upon emergence from the hyperbaric chamber, his vitals remained stable and he was discharged in stable condition. Objective Data Objective Data Vital Signs: Vital Signs Temp Pulse Resp BP 98.6 F 87 16 125/68 H 03/12/24 10:38 03/12/24 10:38 03/12/24 10:38 03/12/24 10:38 Exam Physical Exam Const alert, oriented x3 and no apparent distress General Appearance: cooperative HEENT normocephalic HEENT Narrative: Bilateral Tympanostomy tubes in place. 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 - Other specified disorders of the skin and subcutaneous tissue related to radiation; Y84.2 - Radiological procedure and radiotherapy as the cause of abnormal reaction of the patient, or of later complication, without mention of misadventure at the time of the procedure (2) Chronic radiation cystitis: CODE(S): N30.40 - Irradiation cystitis without hematuria (3) Bladder dysfunction: CODE(S): N31.9 - Neuromuscular dysfunction of bladder, unspecified (4) Prostate cancer: CODE(S): C61 - Malignant neoplasm of prostate PLAN: Plan The patient appears to be tolerating hyperbaric oxygen therapy well, which will be continued as per his medical plan.
[2024-03-13 10:37] VITALS: BP 128/80; BP 142/72; PULSE 68; PULSE 94; RESP 15; TEMP 36.7
[2024-03-14 10:42] VITALS: BP 128/81; BP 129/81; PULSE 69; PULSE 85; RESP 15; RESP 16; TEMP 36.4; TEMP 37.2
--- NOTE | 2024-03-14 12:34 | PCM.HBO.PN ---
History of Present Illness Date of Service: 03/14/24 Chief Complaint: HBO for radiation necrosis History of Wound: Patient has history of prostate cancer and then had a radical prostatectomy done in 2011. In 2016 he had more problems and had 37 radiation treatments. 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 His urologist from [facility] is recommending HBO therapy to help treat his radiation cystitis. Patient states he these issues started last January, he now has issues with anemia. He has an indwelling Worthy catheter. His urine is typically clear, but he will have intermittent periods with bleeding. When he has bleeding, he will drink a large amount of water and that typically helps with the bleeding. Patient states that he was in the ED on Tuesday01/08/24 for bleeding from his catheter. He tried increasing his water intake but he continued to bleed. He decided to go to the ED when the jenny red blood continued. He states that they flushed his catheter which removed some blood clots. The bleeding decreased. CBC was 11.1. BUN 24, Creatinine 1.19. He will follow up with Dr. Gilliland. Progress of Wound: Progress: Today represents the 33nd treatment session of 60 planned sessions, he has been approved for an additional treatments (60 total). Tolerance: Hyperbaric oxygen treatment was administered as per the facility's protocol at 2.0 GEORGE in 100% oxygen for 90 minutes without air breaks. The patient tolerated hyperbaric oxygen therapy without complaints or complications. Upon emergence from the hyperbaric chamber, his vitals remained stable and he was discharged in stable condition. Subjective Subjective Patient is awaiting surgery on his bladder for to reverse things to maybe get rid of his ileostomy. In the meantime he is going to have infrequent tinges of blood in his urine so he is back in for more treatments tolerating everything very well patient is very happy Objective Data Objective Data Vital signs are stable and patient is tolerating treatments well Vital Signs: Vital Signs Temp Pulse Resp BP 98.9 F 85 16 129/81 H 03/14/24 10:42 03/14/24 10:42 03/14/24 10:42 03/14/24 10:42 Exam Physical Exam Const alert, oriented x3 and no apparent distress General Appearance: cooperative HEENT normocephalic HEENT Narrative: Bilateral Tympanostomy tubes in place. 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 - Other specified disorders of the skin and subcutaneous tissue related to radiation; Y84.2 - Radiological procedure and radiotherapy as the cause of abnormal reaction of the patient, or of later complication, without mention of misadventure at the time of the procedure (2) Chronic radiation cystitis: CODE(S): N30.40 - Irradiation cystitis without hematuria (3) Bladder dysfunction: CODE(S): N31.9 - Neuromuscular dysfunction of bladder, unspecified (4) Prostate cancer: CODE(S): C61 - Malignant neoplasm of prostate PLAN: Plan The patient appears to be tolerating hyperbaric oxygen therapy well, which will be continued as per his medical plan.
--- NOTE | 2024-03-15 09:32 | HBO.PN.PCM_ITS ---
History of Present Illness Date of Service: 03/15/24 Chief Complaint: HBO for radiation necrosis History of Wound: Patient has history of prostate cancer and then had a radical prostatectomy done in 2011. In 2016 he had more problems and had 37 radiation treatments. 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 His urologist from [facility] is recommending HBO therapy to help treat his radiation cystitis. Patient states he these issues started last January, he now has issues with anemia. He has an indwelling Worthy catheter. His urine is typically clear, but he will have intermittent periods with bleeding. When he has bleeding, he will drink a large amount of water and that typically helps with the bleeding. Patient states that he was in the ED on Tuesday01/08/24 for bleeding from his catheter. He tried increasing his water intake but he continued to bleed. He decided to go to the ED when the jenny red blood continued. He states that they flushed his catheter which removed some blood clots. The bleeding decreased. CBC was 11.1. BUN 24, Creatinine 1.19. He will follow up with Dr. Gilliland. Progress of Wound: Progress: Today represents the 34th treatment session of 60 planned sessions, he has been approved for an additional treatments (60 total). Tolerance: Hyperbaric oxygen treatment was administered as per the facility's protocol at 2.0 GEORGE in 100% oxygen for 90 minutes without air breaks. The patient tolerated hyperbaric oxygen therapy without complaints or complications. Upon emergence from the hyperbaric chamber, his vitals remained stable and he was discharged in stable condition. Objective Data Objective Data Vital Signs: Vital Signs Temp Pulse Resp BP 98.9 F 85 16 129/81 H 03/14/24 10:42 03/14/24 10:42 03/14/24 10:42 03/14/24 10:42 Exam Physical Exam Const alert, oriented x3 and no apparent distress General Appearance: cooperative HEENT normocephalic HEENT Narrative: Bilateral Tympanostomy tubes in place. 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 - Other specified disorders of the skin and subcutaneous tissue related to radiation; Y84.2 - Radiological procedure and radiotherapy as the cause of abnormal reaction of the patient, or of later complication, without mention of misadventure at the time of the procedure (2) Chronic radiation cystitis: CODE(S): N30.40 - Irradiation cystitis without hematuria (3) Bladder dysfunction: CODE(S): N31.9 - Neuromuscular dysfunction of bladder, unspecified (4) Prostate cancer: CODE(S): C61 - Malignant neoplasm of prostate PLAN: Plan The patient appears to be tolerating hyperbaric oxygen therapy well, which will be continued as per his medical plan.
[2024-03-15 10:56] VITALS: BP 104/77; BP 126/75; PULSE 74; PULSE 77; RESP 15; RESP 16; TEMP 36.4; TEMP 36.8
[2024-03-16 11:06] VITALS: BP 122/77; BP 123/64; PULSE 64; PULSE 72; RESP 15; RESP 89; TEMP 36.5; TEMP 36.9
--- NOTE | 2024-03-19 08:52 | PCM.HBO.PN ---
History of Present Illness Date of Service: 03/19/24 Chief Complaint: HBO for radiation necrosis History of Wound: Patient has history of prostate cancer and then had a radical prostatectomy done in 2011. In 2016 he had more problems and had 37 radiation treatments. 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 His urologist from [facility] is recommending HBO therapy to help treat his radiation cystitis. Patient states he these issues started last January, he now has issues with anemia. He has an indwelling Worthy catheter. His urine is typically clear, but he will have intermittent periods with bleeding. When he has bleeding, he will drink a large amount of water and that typically helps with the bleeding. Patient states that he was in the ED on Tuesday01/08/24 for bleeding from his catheter. He tried increasing his water intake but he continued to bleed. He decided to go to the ED when the jenny red blood continued. He states that they flushed his catheter which removed some blood clots. The bleeding decreased. CBC was 11.1. BUN 24, Creatinine 1.19. He will follow up with Dr. Gilliland. Progress of Wound: Progress: Today represents the 36th treatment session of 60 planned sessions, he has been approved for an additional treatments (60 total). Tolerance: Hyperbaric oxygen treatment was administered as per the facility's protocol at 2.0 GEORGE in 100% oxygen for 90 minutes without air breaks. The patient tolerated hyperbaric oxygen therapy without complaints or complications. Upon emergence from the hyperbaric chamber, his vitals remained stable and he was discharged in stable condition. Objective Data Objective Data Vital Signs: Vital Signs Temp Pulse Resp BP 98.4 F 64 89 H 123/64 H 03/16/24 11:06 03/16/24 11:06 03/16/24 11:06 03/16/24 11:06 Exam Physical Exam Const alert, oriented x3 and no apparent distress General Appearance: cooperative HEENT normocephalic HEENT Narrative: Bilateral Tympanostomy tubes in place. 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 - Other specified disorders of the skin and subcutaneous tissue related to radiation; Y84.2 - Radiological procedure and radiotherapy as the cause of abnormal reaction of the patient, or of later complication, without mention of misadventure at the time of the procedure (2) Chronic radiation cystitis: CODE(S): N30.40 - Irradiation cystitis without hematuria (3) Bladder dysfunction: CODE(S): N31.9 - Neuromuscular dysfunction of bladder, unspecified (4) Prostate cancer: CODE(S): C61 - Malignant neoplasm of prostate PLAN: Plan The patient appears to be tolerating hyperbaric oxygen therapy well, which will be continued as per his medical plan.
[2024-03-19 10:53] VITALS: BP 123/65; BP 129/73; PULSE 73; PULSE 90; RESP 15; RESP 16; TEMP 36.3; TEMP 36.9
[2024-03-21 10:54] VITALS: BP 125/80; BP 128/80; PULSE 70; PULSE 92; RESP 15; RESP 16; TEMP 36.9
--- NOTE | 2024-03-21 12:14 | HBO.PN.PCM_ITS ---
History of Present Illness Date of Service: 03/21/24 Chief Complaint: HBO for radiation necrosis History of Wound: Patient has history of prostate cancer and then had a radical prostatectomy done in 2011. In 2016 he had more problems and had 37 radiation treatments. 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 His urologist from [facility] is recommending HBO therapy to help treat his radiation cystitis. Patient states he these issues started last January, he now has issues with anemia. He has an indwelling Worthy catheter. His urine is typically clear, but he will have intermittent periods with bleeding. When he has bleeding, he will drink a large amount of water and that typically helps with the bleeding. Patient states that he was in the ED on Tuesday01/08/24 for bleeding from his catheter. He tried increasing his water intake but he continued to bleed. He decided to go to the ED when the jenny red blood continued. He states that they flushed his catheter which removed some blood clots. The bleeding decreased. CBC was 11.1. BUN 24, Creatinine 1.19. He will follow up with Dr. Gilliland. Progress of Wound: Progress: Today represents the 37th treatment session of 60 planned sessions, he has been approved for an additional treatments (60 total). Tolerance: Hyperbaric oxygen treatment was administered as per the facility's protocol at 2.0 GEORGE in 100% oxygen for 90 minutes without air breaks. The patient tolerated hyperbaric oxygen therapy without complaints or complications. Upon emergence from the hyperbaric chamber, his vitals remained stable and he was discharged in stable condition. Subjective Subjective Patient is tolerating treatments without any concerns Objective Data Objective Data Vital signs are stable Vital Signs: Vital Signs Temp Pulse Resp BP 98.4 F 92 16 125/80 H 03/21/24 10:54 03/21/24 10:54 03/21/24 10:54 03/21/24 10:54 Exam Physical Exam Const alert, oriented x3 and no apparent distress General Appearance: cooperative HEENT normocephalic HEENT Narrative: Bilateral Tympanostomy tubes in place. Head and Scalp: atraumatic Eyes General Eye: normal appearance of both eyes Neck full ROM Resp normal respiratory effort Effort and Inspection: able to speak in complete sentences Cardio regular rate and regular rhythm Palpation: normal PMI Bladder / Kidney Exam: catheter in place urethral (Urine is clear yellow) Extremity normal capillary refill Neuro CN's II-XII intact bilaterally Speech: speech normal Psych affect normal Nursing Assessment and Debridement Post-Debridement Measurements and Additional Note: Post-Debridement Measurements/Treatment WC - Nurse 3 - General Ulcer D/C NN Start: 03/12/24 10:38 Freq: Status: Active Protocol: Activity Type Activity Date Activity User E-sign Co-sign Detail Recorded Client Recorded Date Recorded By Document 03/19/24 10:53 JF 00 03/19/24 10:57 JF 03/19/24 10:53 Pain Scale: 0-10 Numeric Is Patient Pain Free? 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 - Other specified disorders of the skin and subcutaneous tissue related to radiation; Y84.2 - Radiological procedure and radiotherapy as the cause of abnormal reaction of the patient, or of later complication, without mention of misadventure at the time of the procedure (2) Chronic radiation cystitis: CODE(S): N30.40 - Irradiation cystitis without hematuria (3) Bladder dysfunction: CODE(S): N31.9 - Neuromuscular dysfunction of bladder, unspecified (4) Prostate cancer: CODE(S): C61 - Malignant neoplasm of prostate PLAN: Plan The patient appears to be tolerating hyperbaric oxygen therapy well, which will be continued as per his medical plan.
--- NOTE | 2024-03-22 08:52 | HBO.PN.PCM_ITS ---
History of Present Illness Date of Service: 03/22/24 Chief Complaint: HBO for radiation necrosis History of Wound: Patient has history of prostate cancer and then had a radical prostatectomy done in 2011. In 2016 he had more problems and had 37 radiation treatments. 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 His urologist from [facility] is recommending HBO therapy to help treat his radiation cystitis. Patient states he these issues started last January, he now has issues with anemia. He has an indwelling Worthy catheter. His urine is typically clear, but he will have intermittent periods with bleeding. When he has bleeding, he will drink a large amount of water and that typically helps with the bleeding. Patient states that he was in the ED on Tuesday01/08/24 for bleeding from his catheter. He tried increasing his water intake but he continued to bleed. He decided to go to the ED when the jenny red blood continued. He states that they flushed his catheter which removed some blood clots. The bleeding decreased. CBC was 11.1. BUN 24, Creatinine 1.19. He will follow up with Dr. Gilliland. Progress of Wound: Progress: This represents the 38th session of 60 planned sessions. Tolerance: Hyperbaric oxygen treatment was administered as per the facility's protocol at 2.0 GEORGE in 100% oxygen for 90 minutes without air breaks. The patient tolerated hyperbaric oxygen therapy without complaints or complications. Upon emergence from the hyperbaric chamber, his vitals remained stable and he was discharged in stable condition. Objective Data Objective Data Vital Signs: Vital Signs Temp Pulse Resp BP 98.4 F 92 16 125/80 H 03/21/24 10:54 03/21/24 10:54 03/21/24 10:54 03/21/24 10:54 Exam Physical Exam Const alert, oriented x3 and no apparent distress General Appearance: cooperative, comfortable and well kempt HEENT normocephalic and head/scalp atraumatic Tympanic Membrane: other Other Details: Bilateral tympanostomy tubes noted. Neck full ROM and supple General: normal visual inspection Resp normal respiratory effort Effort and Inspection: able to speak in complete sentences Neuro oriented x3, CN's II-XII intact bilaterally and moves all extremities Psych mental status grossly normal, thought process normal, cooperative and affect normal Nursing Assessment and Debridement Post-Debridement Measurements and Additional Note: Post-Debridement Measurements/Treatment WC - Nurse 3 - General Ulcer D/C NN Start: 03/12/24 10:38 Freq: Status: Active Protocol: Activity Type Activity Date Activity User E-sign Co-sign Detail Recorded Client Recorded Date Recorded By Document 03/19/24 10:53 JF 00 03/19/24 10:57 JF 03/19/24 10:53 Pain Scale: 0-10 Numeric Is Patient Pain Free? 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 - Other specified disorders of the skin and subcutaneous tissue related to radiation; Y84.2 - Radiological procedure and radiotherapy as the cause of abnormal reaction of the patient, or of later complication, without mention of misadventure at the time of the procedure (2) Chronic radiation cystitis: CODE(S): N30.40 - Irradiation cystitis without hematuria (3) Bladder dysfunction: CODE(S): N31.9 - Neuromuscular dysfunction of bladder, unspecified (4) Prostate cancer: CODE(S): C61 - Malignant neoplasm of prostate PLAN: Plan The patient appears to be tolerating hyperbaric oxygen therapy well, which will be continued as per his medical plan. This note was generated with Jumpstarteration software. It may contain incorrect words, spelling, and punctuation that were not noted in checking the note before signing.
[2024-03-22 10:44] VITALS: BP 120/73; BP 129/68; PULSE 70; PULSE 97; RESP 14; RESP 15; TEMP 36.8; TEMP 36.9
== END 2024-04-05 23:59 | disposition home or self-care (01) ==
LOC: WC 08:00
PROVIDERS: PCP Family Medicine; Visit Provider Nurse Practitioner Family
DX: L59.8 Other specified disorders of the skin and subcutaneous tissue related to radiation (principal); Z93.2 Ileostomy status; Y84.2 Radiological procedure and radiotherapy as the cause of abnormal reaction of the patient, or of later complication, without mention of misadventure at the time of the procedure; N30.40 Irradiation cystitis without hematuria; N31.9 Neuromuscular dysfunction of bladder, unspecified; Z79.899 Other long term (current) drug therapy; Z85.46 Personal history of malignant neoplasm of prostate; Z90.79 Acquired absence of other genital organ(s)
CPT/HCPCS: 99183; G0277

== ENCOUNTER 2024-03-23 06:31 | Emergency (ER) | payer MEDICARE, OTHER, SELFPAY ==
[2024-03-23 06:32] VITALS: BP 163/77; PULSE 120; RESP 16; TEMP 36.4; O2SAT 96; BMI 27.8
--- NOTE | 2024-03-23 07:01 | EDS_ITS ---
HPI History of Present Illness Chief Complaint: Worthy C/O Detail of Chief Complaint: Obstructed suprapubic catheter. Informant: patient Pain Onset: Today Narrative Narrative: 78-year-old male history of prostate cancer and his suprapubic catheter. The most recent catheter he has and has been in around 3 weeks. States it was working fine yesterday. He has had no urine output today. Denies any other complaints. No fever. No abdominal pain. Prior similar symptoms: Yes Recent Illness/Hospitalization: No PFSH PFSH Medical History Hearing loss, left Hearing loss, right Anxiety Depression Chronic indwelling Worthy catheter TIA (transient ischemic attack) Chronic radiation cystitis Worthy catheter in place Wears glasses Cancer Arthritis Non-smoker History of pain when walking History of edema Hypertension Prostate cancer Blood in urine Home Medications ?Medication ?Instructions ?Recorded ?Last Taken ?Type amlodipine 10 mg tablet 10 mg PO DAILY BLOOD PRESSURE 12/08/18 01/13/24 History lisinopril 40 mg tablet 40 mg PO BID BLOOD PRESSURE 12/08/18 01/13/24 History terazosin 5 mg capsule 5 mg PO QPM BLOOD PRESSURE 12/08/18 01/13/24 History multivit,Ca,min-iron 8 mg-folic 1 tab PO DAILY SUPPLEMENT 11/04/23 01/13/24 History acid 200 mcg-lycopene 600 mcg tablet (A Thru Z Men's Ultimate) Allergy/AdvReac Type Severity Reaction Status Date / Time losartan Allergy Mild Rash Verified 03/23/24 06:37 Sulfa (Sulfonamide Allergy Hives Verified 03/23/24 06:37 Antibiotics) atenolol AdvReac Mild WEAKNESS Verified 03/23/24 06:37 hydrochlorothiazide AdvReac Mild UNKNOWN Verified 03/23/24 06:37 indomethacin (From Indocin) AdvReac Mild GI upset Verified 03/23/24 06:37 Surgical History History of left knee replacement Hx of radical prostatectomy Hx of cystoscopy Hx of colonoscopy Social History household members: spouse housing: house Smoking Status: Never smoker ROS ROS ED ROS Narrative Denies recent illness. Constitutional Constitutional ED: Denies chills or fever(s) Eyes Eyes: Denies blurry vision ENT ENT ED: Denies ear pain Cardiovascular Cardiovascular: Denies chest pain Respiratory/Chest Respiratory/Chest: Denies cough Gastrointestinal Gastrointestinal: Denies abdominal pain Genitourinary Genitourinary ED: Denies hematuria Musculoskeletal Musculoskeletal: Denies arthralgias Integumentary Denies abscess Neurologic Neurologic: Denies headache(s) Psychiatric Psychiatric: Denies anxiety or depression Endocrine Endocrinology: Denies polydipsia Hematologic/Lymphatic Hematologic/Lymphatic: Denies easy bleeding Allergic/Immunologic Allergic/Immunologic ED: Denies mouth swelling EXAM Physical Exam Narrative Exam Narrative: Well-appearing 78-year-old male. Vital signs stable afebrile. Sitting upright in bed. No distress. H EENT exam unremarkable. Lungs clear. Heart regular rhythm rate about 100 on my exam. Abdomen soft, nontender, nondistended normal bowel sounds without peritoneal signs. Is a suprapubic catheter. Currently is not draining. We remove the current catheter. Clean the area with iodine. Under sterile technique I placed a new 16 [place] catheter which is same size he had we got immediate return of clear yellow urine. No blood or clots. Moving all 4 extremities. Nontender no edema. He is awake and alert. Answering questions following commands. Const Vital Signs: 03/23/24 06:32 Temperature 97.5 F L Temperature Source Oral Pulse Rate 120 H Respiratory Rate 16 Blood Pressure 163/77 H Blood Pressure Mean 105 Pulse Ox 96 Oxygen Delivery Method Room Air Positive well nourished and well developed; Negative for obese, cachectic, contractures or unkempt General Appearance ED: well developed and NAD; Negative for unkempt, cachectic, contractures or pallor Nutritional Appearance: Negative for cachectic or obese HEENT Reports moist mucous membranes normocephalic and atraumatic; Negative for trauma or tenderness Eyes PERRL and EOMs intact bilaterally General Eye ED: Negative for pale conjunctiva Neck no lymphadenopathy, supple and no JVD General: Negative for tenderness Resp normal respiratory effort and clear to auscultation bilaterally Effort and Inspection: Negative for retractions Auscultation: Negative for rales, rhonchi or wheezes Cardio regular rate, regular rhythm, S1 normal heart sound, S2 normal heart sound and no murmurs GI non-tender, non-distended and no masses Auscultation: normoactive bowel sounds Palpation: soft; Negative for tender or guarding Back/Spine no CVA tenderness General Back: Negative for CVA tenderness Cervical Spine: Negative for cervical spine tenderness Thoracic Spine / Upper Back: Negative for thoracic spinal tenderness Lumbar Spine / Lower Back: Negative for lumbar spinal tenderness Extremity normal to inspection General Extremety ED: Negative for edema General Extremity: Negative for edema Neuro oriented x3, CN's II-XII intact bilaterally, moves all extremities and no focal motor deficits Motor Exam: strength 5/5 throughout Psych mental status grossly normal Appearance: Negative for unkempt Attitude: No agitated Mood & Affect: Negative for depressed Thought Process: normal thought process Thought Content: normal thought content Skin General Skin Exam: Negative for jaundice or pallor Lesions: no lesions Rashes: no rashes MDM MDM MDM Narrative Medical decision making narrative: 78-year-old male with chronic indwelling suprapubic catheter. Was obstructed. We replaced it. It is flowing well. He is comfortable being discharged home. He follows up with with urology at the [facility]. Discharge Plan Triage Chief Complaint: Worthy C/O ED Provider: Kishore Nicolas Dx/Rx/DC Orders Clinical Impression: Obstructed suprapubic catheter, History of prostate cancer Instructions: Suprapubic Catheter Dc Prescriptions: No Action terazosin 5 MG capsule 5 mg PO QPM amlodipine 10 MG tablet 10 mg PO DAILY lisinopril 40 MG tablet 40 mg PO BID A Thru Z Men's Ultimate 8 mg iron- 200 mcg-600 mcg tablet 1 tab PO DAILY Primary Care Provider: Isaiah Han Referrals: Isaiah Han MD [Primary Care Provider] - Activity Restrictions/Additional Instructions: Follow-up with your urologist as needed. Plenty of fluids. Return if any problems. Print Language: Urdu Disposition Disposition: Home, Self Care
[2024-03-23 07:12] VITALS: BP 130/78; PULSE 90; RESP 18; TEMP 36.7; O2SAT 97
== END 2024-03-23 07:13 | disposition home or self-care (01) ==
LOC: ED 07:11
PROVIDERS: Emergency Provider Emergency Medicine; PCP Family Medicine; Visit Provider Emergency Medicine
DX: T83.090A Other mechanical complication of cystostomy catheter, initial encounter (principal); I10 Essential (primary) hypertension; H91.93 Unspecified hearing loss, bilateral; Z79.899 Other long term (current) drug therapy; Z85.46 Personal history of malignant neoplasm of prostate
CPT/HCPCS: 99282

== ENCOUNTER 2024-06-08 06:04 | Emergency (ER) | payer MEDICARE, OTHER, SELFPAY ==
[2024-06-08 06:05] VITALS: BP 159/75; PULSE 115; RESP 18; TEMP 36.4; O2SAT 95; BMI 29.0
--- NOTE | 2024-06-08 06:17 | EX.ED.DYSGE1 ---
HPI History of Present Illness Chief Complaint: Worthy C/O Informant: patient Narrative Narrative: Patient is a 78-year-old male with past medical history of hypertension as well as previous prostate cancer which led to radiation cystitis and need for suprapubic catheter placement. The patient states has been roughly 5 to 6 weeks since his catheter was changed and he is due to see his urologist in approximately 10 days for this. He states that he went to bed normally and when he awoke he noticed that the catheter was not draining as it normally does. He denies any pain and states that it was not moved or dislodged as far as he knows. He states he has concern it has become obstructed/plugged and feels he will need replaced and secondary to this comes to the hospital for evaluation [facility] Medical History Hearing loss, left Hearing loss, right Anxiety Depression Chronic indwelling Worthy catheter TIA (transient ischemic attack) Chronic radiation cystitis Worthy catheter in place Wears glasses Cancer Arthritis Non-smoker History of pain when walking History of edema Hypertension Prostate cancer Blood in urine Home Medications ?Medication ?Instructions ?Recorded ?Last Taken ?Type amlodipine 10 mg tablet 10 mg PO DAILY BLOOD PRESSURE 12/08/18 01/13/24 History lisinopril 40 mg tablet 40 mg PO BID BLOOD PRESSURE 12/08/18 01/13/24 History terazosin 5 mg capsule 5 mg PO QPM BLOOD PRESSURE 12/08/18 01/13/24 History multivit,Ca,min-iron 8 mg-folic 1 tab PO DAILY SUPPLEMENT 11/04/23 01/13/24 History acid 200 mcg-lycopene 600 mcg tablet (A Thru Z Men's Ultimate) Allergy/AdvReac Type Severity Reaction Status Date / Time losartan Allergy Mild Rash Verified 06/08/24 06:05 Sulfa (Sulfonamide Allergy Hives Verified 06/08/24 06:05 Antibiotics) atenolol AdvReac Mild WEAKNESS Verified 06/08/24 06:05 hydrochlorothiazide AdvReac Mild UNKNOWN Verified 06/08/24 06:05 indomethacin (From Indocin) AdvReac Mild GI upset Verified 06/08/24 06:05 Surgical History History of left knee replacement Hx of radical prostatectomy Hx of cystoscopy Hx of colonoscopy Social History household members: spouse housing: house Smoking Status: Never smoker ROS ROS ED Constitutional Constitutional ED: Denies chills or fever(s) ENT ENT ED: Denies sore throat Cardiovascular Cardiovascular: Denies chest pain Respiratory/Chest Respiratory/Chest: Denies cough or dyspnea Gastrointestinal Gastrointestinal: Denies abdominal pain, diarrhea, nausea or vomiting Genitourinary Genitourinary ED: Reports other Details: Positive urinary retention Musculoskeletal Musculoskeletal: Denies back pain Integumentary Denies rash Neurologic Neurologic: Denies headache(s) Hematologic/Lymphatic Hematologic/Lymphatic: Denies easy bleeding or easy bruising EXAM Physical Exam Const Vital Signs: 06/08/24 06:05 06/08/24 06:22 Temperature 97.6 F L 98.0 F Temperature Source Oral Pulse Rate 115 H 87 Respiratory Rate 18 18 Blood Pressure 159/75 H 122/67 H Blood Pressure Mean 103 85 Pulse Ox 95 99 Oxygen Delivery Method Room Air Positive well nourished and well developed General Appearance ED: well developed; Negative for pallor HEENT HEENT Narrative: Normocephalic atraumatic Eyes PERRL and EOMs intact bilaterally General Eye ED: Negative for scleral icterus Neck supple Resp normal respiratory effort and clear to auscultation bilaterally Cardio regular rate and regular rhythm GI normal to inspection, nondistended, normoactive bowel sounds, non-tender, non-distended and no masses GI Narrative: There is a suprapubic catheter in place. Insertion site to the skin does not show surrounding erythema warmth streaking or discharge to suggest infection. No obvious organomegaly noted to suggest bladder distention/acute urinary retention. Auscultation: normoactive bowel sounds Palpation: soft Narrative: Normal circumcised male No blood or discharge from the urethral meatus No testicular masses or swelling noted Back/Spine no CVA tenderness Extremity normal to inspection Neuro oriented x3, CN's II-XII intact bilaterally and no sensory deficits noted Sensorium / Orientation: alert Motor Exam: strength 5/5 throughout Psych mental status grossly normal Skin no rashes or lesions noted General Skin Exam: Negative for jaundice or pallor MDM MDM MDM Narrative Medical decision making narrative: Patient arrived to ER mildly hypertensive and tachycardic. However he is afebrile. He states that he went to bed normally and awoke with sensation that the catheter is not draining. By exam he does not have overt urinary retention or distention as I do not feel organomegaly on exam. There is a large amount of sediment within the catheter tubing indicating it is most likely obstructive. As he is afebrile and is only been a few hours since his catheter has not produced urine I have low concern for CHRIS or UTI. Therefore the patient had the suprapubic catheter replaced as documented below and with the catheter now draining clear yellow urine he is otherwise safe for discharge Patient had a 16 [place] catheter balloon deflated. It was removed from the suprapubic site. There was sediment noted upon removal. Betadine was placed over top the abdomen for sterilization. An 18 [place] catheter was placed into the opening/stoma and advanced into the bladder. There was return of clear yellow urine indicating the suprapubic catheter was in the proper position. Patient had no complications and tolerated the procedure well. History & Record Review Discussion w/independent historian: Patient Discharge Plan Triage Chief Complaint: Worthy C/O ED Provider: Reuben Kirkland Dx/Rx/DC Orders Clinical Impression: Suprapubic catheter dysfunction, Prostate cancer, Chronic radiation cystitis, Hypertension Instructions: Suprapubic Catheter Dc Prescriptions: No Action terazosin 5 MG capsule 5 mg PO QPM amlodipine 10 MG tablet 10 mg PO DAILY lisinopril 40 MG tablet 40 mg PO BID A Thru Z Men's Ultimate 8 mg iron- 200 mcg-600 mcg tablet 1 tab PO DAILY Primary Care Provider: Isaiah Han Referrals: Isaiah Han MD [Primary Care Provider] - Zhao Gilliland MD [Med Staff - Active Staff] - Activity Restrictions/Additional Instructions: Please continue to care for your catheter as directed by your urologist and follow-up with him for repeat evaluation. Return to the ER should you have any further concerns Print Language: Kinyarwanda Disposition Disposition: Home, Self Care Discharge Date/Time: 06/08/24 06:26
[2024-06-08 06:22] VITALS: BP 122/67; PULSE 87; RESP 18; TEMP 36.7; O2SAT 99
== END 2024-06-08 06:26 | disposition home or self-care (01) ==
LOC: ED 06:25
PROVIDERS: Emergency Provider Emergency Medicine; PCP Family Medicine; Visit Provider Emergency Medicine
DX: T83.090A Other mechanical complication of cystostomy catheter, initial encounter (principal); Y73.8 Miscellaneous gastroenterology and urology devices associated with adverse incidents, not elsewhere classified; N30.40 Irradiation cystitis without hematuria; I10 Essential (primary) hypertension; Z79.899 Other long term (current) drug therapy; Z85.46 Personal history of malignant neoplasm of prostate; Z86.73 Personal history of transient ischemic attack (TIA), and cerebral infarction without residual deficits; Z90.79 Acquired absence of other genital organ(s)
CPT/HCPCS: 99282

== ENCOUNTER → 2024-07-19 | Outpatient (CLI) | payer MEDICARE, OTHER, SELFPAY ==
[2024-07-19 12:25] LABS: Absolute Lymphocyte Count 0.56 X10^3/uL (0.83-4.51); Absolute Neutrophil Count 2.9 X10^3/uL (2.0-7.7); Basophil# 0.02 X10^3/uL; Basophil% 0.5 % (0-1); Eosinophil# 0.39 X10^3/uL; Hemoglobin 11.2 g/dL (13.0-16.5); Lymphocyte # 0.56 X10^3/ul (0.83-4.51); Mean Corpuscular Hgb 27.7 pg (27.0-32.0); Mean Corpuscular Volume 86.4 fL (80-94); Mean Platelet Vol. 10.4 fl (6.2-12.0); Monocyte# 0.47 X10^3/uL; Monocyte% 10.9 % (0-10); NRBC Flagged by Analyzer 0 % (0-5); Neutrophil # 2.87 X10^3/uL (2.7-7.7); Neutrophil % 66.4 % (47-70); POSITIVE DIFFERENTIAL YES; Platelet Count 224 K/mm3 (150-450); RBC Distribution Width CV 13.7 % (11.6-14.6); RBC Distribution Width SD 42.9 fl (35.1-43.9); Red Blood Count 4.05 M/mm3 (4.6-6.2); White Blood Count 4.3 K/mm3 (4.4-11.0)
[2024-07-19 12:44] LABS: ALB/GLOB Ratio 0.7 RATIO (0.9-2.4); AST(SGOT) 20 U/L (15-37); Alanine Aminotransfer ALT/SGPT 19 U/L (16-61); Alkaline Phosphatase 76 U/L (45-117); Anion Gap 7 (5-15); BUN 24 mg/dL (7-18); BUN/Creat Ratio 16.3 RATIO (10-20); Calcium,Total 9.2 mg/dL (8.5-10.1); Chloride 106 mmol/L (98-107); Creatinine, Serum 1.47 mg/dL (0.70-1.30); EST Glomerular Filtration Rate 49 mL/min (>60); Est Glom Filt Rate - Afr Amer 60 mL/min (>60); Globulin 4.6 g/dL (2.2-4.2); Glucose 118 mg/dL (74-106); Potassium 4.4 mmol/L (3.5-5.1); Protein, Total 7.6 g/dL (6.4-8.2); Sodium Level 136 mmol/L (136-145)
[2024-07-19 18:41] LABS: Erythrocyte Sedimentation Rate 33 mm/hr (0-20)
== END | disposition home or self-care (01) ==
LOC: MTLAB 11:00
PROVIDERS: PCP Family Medicine; Referring Provider Family Medicine; Visit Provider Family Medicine
DX: L29.9 Pruritus, unspecified (principal)
CPT/HCPCS: 36415; 80053; 84443; 85025; 85652

== ENCOUNTER 2024-08-14 19:21 | Inpatient (IN) | payer MEDICARE, OTHER, SELFPAY ==
[2024-08-14] VITALS (11 sets, daily range): BP systolic 75–119; BP diastolic 50–73; PULSE 107–146; RESP 21–38; TEMP 36.6–39.4; O2SAT 91–99; BMI 29.5
[2024-08-14 19:49] LABS: Absolute Neutrophil Count 1.5 X10^3/uL (2.0-7.7); Basophil# 0.01 X10^3/uL; Basophil% 0.5 % (0-1); Eosinophil# 0.11 X10^3/uL; Eosinophils% 5.7 % (0-5); Hematocrit 36.1 % (40-54); Lymphocyte % 15.5 % (19-41); Mean Corp Hgb Conc 33.2 g/dL (32-36); Mean Corpuscular Hgb 28.4 pg (27.0-32.0); Mean Corpuscular Volume 85.3 fL (80-94); Mean Platelet Vol. 9.6 fl (6.2-12.0); Monocyte# 0.01 X10^3/uL; Monocyte% 0.5 % (0-10); NRBC Flagged by Analyzer 0 % (0-5); Neutrophil # 1.48 X10^3/uL (2.7-7.7); Neutrophil % 76.8 % (47-70); POSITIVE DIFFERENTIAL YES; POSITIVE MORPHOLOGY YES; Platelet Count 229 K/mm3 (150-450); RBC Distribution Width SD 43.3 fl (35.1-43.9); Red Blood Count 4.23 M/mm3 (4.6-6.2); White Blood Count 1.9 K/mm3 (4.4-11.0)
[2024-08-14 19:54] LABS: Differential Indicated SCAN CRITERIA MET
[2024-08-14 20:22] LABS: ALB/GLOB Ratio 1.1 RATIO (0.9-2.4); AST(SGOT) 24 U/L (<=37); Alanine Aminotransfer ALT/SGPT 16 U/L (<=46); Albumin, Serum 3.7 g/dL (3.4-4.8); Alkaline Phosphatase 85 U/L (40-129); Anion Gap 17 (5-15); BUN 31 mg/dL (4-19); BUN/Creat Ratio 18.2 RATIO (10-20); Calcium,Total 9.2 mg/dL (7.6-11.0); Carbon Dioxide 17.4 mmol/L (21.0-32.0); Chloride 105 mmol/L (98-108); Creatinine, Serum 1.69 mg/dL (0.70-1.20); EST Glomerular Filtration Rate 42 (>60); Globulin 3.4 g/dL (2.2-4.2); Glucose 139 mg/dL (70-99); Potassium 4.5 mmol/L (3.3-5.1); Protein, Total 7.2 g/dL (5.9-8.4); Sodium Level 139 mmol/L (133-145); Total Bilirubin 0.25 mg/dL (0.00-1.30)
--- NOTE | 2024-08-14 20:36 | EX.ED.DYSGE1 ---
HPI <Eve Burciaga RN - Last Filed: 08/14/24 22:55> History of Present Illness Chief Complaint: Flank Pain Detail of Chief Complaint: Right flank pain Informant: patient Onset/Context/Timing Onset: Hours (4.5 hours) Context: Sudden Onset Timing: Intermittent Quality: Stabbing, sharp Current Severity: 10/10 Maximum Severity: 10/10 Worsened by: Nothing Relieved by: Nothing Narrative Narrative: Patient is a 78-year-old male with past medical history significant for prostate cancer in 2012 with prostatectomy, return of prostate cancer in 2016 for which he received radiation, chronic suprapubic catheter, hypertension, and intermittent hematuria who presented to the ED with his son for sudden onset right flank pain at approximately 4 PM today. Patient does report he gets intermittent bladder spasms and will have hematuria following the spasms. These resolved at home with increased fluids. He did take Tylenol at 2 PM today to help with bladder spasms. He also changed his catheter tubing and bag today. Patient also reports chills. Does not know if he had a fever. Patient denies lightheadedness and dizziness. Denies chest pain and shortness of breath. Had an episode of vomiting upon arrival to ED. Denies nausea at this time. Prior similar symptoms: No Recent Illness/Hospitalization: No PFSH <Eve Burciaga RN - Last Filed: 08/14/24 22:55> PFSH Medical History Hearing loss, left Hearing loss, right Anxiety Depression Chronic indwelling Worthy catheter TIA (transient ischemic attack) Chronic radiation cystitis Worthy catheter in place Wears glasses Cancer Arthritis Non-smoker History of pain when walking History of edema Hypertension Prostate cancer Blood in urine Home Medications ?Medication ?Instructions ?Recorded ?Last Taken ?Type amlodipine 10 mg tablet 10 mg PO DAILY BLOOD PRESSURE 12/08/18 01/13/24 History lisinopril 40 mg tablet 40 mg PO BID BLOOD PRESSURE 12/08/18 01/13/24 History terazosin 5 mg capsule 5 mg PO QPM BLOOD PRESSURE 12/08/18 01/13/24 History multivit,Ca,min-iron 8 mg-folic 1 tab PO DAILY SUPPLEMENT 11/04/23 01/13/24 History acid 200 mcg-lycopene 600 mcg tablet (A Thru Z [employer]'s Ultimate) Allergy/AdvReac Type Severity Reaction Status Date / Time losartan Allergy Mild Rash Verified 08/14/24 19:22 Sulfa (Sulfonamide Allergy Hives Verified 08/14/24 19:22 Antibiotics) atenolol AdvReac Mild WEAKNESS Verified 08/14/24 19:22 hydrochlorothiazide AdvReac Mild UNKNOWN Verified 08/14/24 19:22 indomethacin (From Indocin) AdvReac Mild GI upset Verified 08/14/24 19:22 Surgical History History of left knee replacement Hx of radical prostatectomy Hx of cystoscopy Hx of colonoscopy Social History household members: spouse housing: house Smoking Status: Never smoker ROS <Eve Burciaga RN - Last Filed: 08/14/24 22:55> ROS ED ROS Narrative Patient is awake and alert. Denies dizziness and lightheadedness. Denies fatigue. Denies weight loss. Constitutional Constitutional ED: Reports chills; Denies fever(s), sweats or weight loss Eyes Eyes: Denies blurry vision or change in vision ENT ENT ED: Denies ear pain, rhinorrhea or sore throat Cardiovascular Cardiovascular: Denies chest pain, palpitations or racing heartbeat Respiratory/Chest Respiratory/Chest: Denies cough or dyspnea Gastrointestinal Gastrointestinal: Reports nausea; Denies diarrhea or vomiting Genitourinary Genitourinary ED: Reports hematuria; Denies dysuria or urinary frequency Musculoskeletal Musculoskeletal: Reports other Details: Right flank pain ; Denies arthralgias or myalgias Integumentary Denies rash Neurologic Neurologic: Denies headache(s), paresthesias or weakness Psychiatric Psychiatric: Denies anxiety or depression Endocrine Endocrinology: Denies polydipsia, polyphagia or polyuria EXAM <Eve Burciaga RN - Last Filed: 08/14/24 22:55> Physical Exam Narrative Exam Narrative: Patient is awake, alert, ill-appearing, uncomfortable, cooperative, good historian. Son is at bedside. Const Vital Signs: 08/14/24 19:22 08/14/24 21:21 08/14/24 21:37 Temperature 97.8 F 102.9 F H 102.9 F H Temperature Source Oral Oral Oral Pulse Rate 124 H 140 H 146 H Respiratory Rate 26 H 24 H 38 H Blood Pressure 101/61 95/50 L 75/50 L Blood Pressure Mean 74 65 58 Pulse Ox 98 97 97 Oxygen Delivery Method Room Air Room Air Room Air Oxygen Flow Rate (L/min) 08/14/24 21:37 08/14/24 21:44 08/14/24 21:44 Temperature Temperature Source Pulse Rate 140 H Respiratory Rate 24 H Blood Pressure 89/73 L 89/73 L Blood Pressure Mean 79 79 Pulse Ox Oxygen Delivery Method Oxygen Flow Rate (L/min) 08/14/24 21:44 08/14/24 21:45 08/14/24 21:45 Temperature Temperature Source Pulse Rate 143 H Respiratory Rate 22 H Blood Pressure 89/73 L Blood Pressure Mean 79 Pulse Ox 91 Oxygen Delivery Method Nasal Cannula Oxygen Flow Rate (L/min) 2 08/14/24 22:00 08/14/24 22:15 08/14/24 22:30 Temperature Temperature Source Pulse Rate 137 H 128 H 117 H Respiratory Rate 33 H 21 H 28 H Blood Pressure 119/64 Blood Pressure Mean 81 Pulse Ox 96 Oxygen Delivery Method Oxygen Flow Rate (L/min) 08/14/24 22:45 08/14/24 23:00 Temperature Temperature Source Pulse Rate 113 H 122 H Respiratory Rate 27 H 28 H Blood Pressure 96/55 L Blood Pressure Mean 68 Pulse Ox 94 95 Oxygen Delivery Method Nasal Cannula Oxygen Flow Rate (L/min) 2 Positive well nourished and well developed General Appearance ED: well developed HEENT Reports dry mucous membranes Mouth ED: Yes dry mucous membranes Mouth: dry mucous membranes Eyes PERRL and EOMs intact bilaterally Neck no lymphadenopathy and supple Chest Wall inspection of chest normal and palpation of chest normal Resp normal respiratory effort and clear to auscultation bilaterally Auscultation: Negative for rales, rhonchi, wheezes or diminished lung sounds Cardio regular rate, regular rhythm, S1 normal heart sound, S2 normal heart sound and no murmurs GI normal to inspection, nondistended, normoactive bowel sounds Narrative: Suprapubic catheter insertion site without erythema or drainage. Worthy draining cloudy pink-tinged urine with sediment. Back/Spine General Back: CVA tenderness right Extremity normal to inspection General Extremety ED: Negative for edema or tenderness General Extremity: Negative for edema Neuro No oriented x3, No CN's II-XII intact bilaterally and No no sensory deficits noted Motor Exam: strength 5/5 throughout Psych mental status grossly normal Skin no rashes or lesions noted, no wounds and skin turgor normal <Dr. Kishore Nioclas MD - Last Filed: 08/17/24 23:56> Physical Exam Const Vital Signs: 08/14/24 19:22 08/14/24 21:21 08/14/24 21:37 Temperature 97.8 F 102.9 F H 102.9 F H Temperature Source Oral Oral Oral Pulse Rate 124 H 140 H 146 H Respiratory Rate 26 H 24 H 38 H Blood Pressure 101/61 95/50 L 75/50 L Blood Pressure Mean 74 65 58 Pulse Ox 98 97 97 Oxygen Delivery Method Room Air Room Air Room Air Oxygen Flow Rate (L/min) 08/14/24 21:37 08/14/24 21:44 08/14/24 21:44 Temperature Temperature Source Pulse Rate 140 H Respiratory Rate 24 H Blood Pressure 89/73 L 89/73 L Blood Pressure Mean 79 79 Pulse Ox Oxygen Delivery Method Oxygen Flow Rate (L/min) 08/14/24 21:44 08/14/24 21:45 08/14/24 21:45 Temperature Temperature Source Pulse Rate 143 H Respiratory Rate 22 H Blood Pressure 89/73 L Blood Pressure Mean 79 Pulse Ox 91 Oxygen Delivery Method Nasal Cannula Oxygen Flow Rate (L/min) 2 08/14/24 22:00 08/14/24 22:15 08/14/24 22:30 Temperature Temperature Source Pulse Rate 137 H 128 H 117 H Respiratory Rate 33 H 21 H 28 H Blood Pressure 119/64 Blood Pressure Mean 81 Pulse Ox 96 Oxygen Delivery Method Oxygen Flow Rate (L/min) 08/14/24 22:45 08/14/24 23:00 Temperature Temperature Source Pulse Rate 113 H 122 H Respiratory Rate 27 H 28 H Blood Pressure 96/55 L Blood Pressure Mean 68 Pulse Ox 94 95 Oxygen Delivery Method Nasal Cannula Oxygen Flow Rate (L/min) 2 MDM <Eve Burciaga RN - Last Filed: 08/14/24 22:55> MDM MDM Narrative Medical decision making narrative: IV initiated. CBC will be obtained to evaluate for leukocytosis. BMP will be obtained to evaluate for electrolyte imbalance. CT abdomen will be obtained to evaluate for potential kidney stone. History & Record Review Discussion w/independent historian: Family Lab Data Lab results narrative: CBC shows a white white count of 1.9. H&H of 12 and 36. Platelets 229. Electrolytes show a gap of 17. BUN and creatinine of 31 and 1.69 which is consistent with his chronic renal insufficiency. Glucose 139. Liver enzymes normal. Urinary tubing and drainage bag were changed prior to urinalysis. Labs: Laboratory Results - last 24 hr 08/14/24 08/14/24 08/14/24 19:40 21:30 21:40 WBC 1.9 L RBC 4.23 L Hgb 12.0 L Hct 36.1 L MCV 85.3 MCH 28.4 MCHC 33.2 RDW Std Deviation 43.3 RDW Coeff of Jerry 14.0 Plt Count 229 MPV 9.6 Immature Gran % (Auto) 1.000 H Neut % (Auto) 76.8 H Lymph % (Auto) 15.5 L [place] % (Auto) 0.5 Eos % (Auto) 5.7 H Baso % (Auto) 0.5 Absolute Neuts (auto) 1.5 L Absolute Lymphs (auto) 0.30 L Nucleated RBC % 0 Differential Comment SEE COMMENT Platelet Estimate ADEQUATE RBC Morphology NORM C+C Anisocytosis RARE PT 15.5 H INR 1.2 APTT 26.3 Sodium 139 Potassium 4.5 Chloride 105 Carbon Dioxide 17.4 L Anion Gap 17 H BUN 31 H Creatinine 1.69 H Est GFR (MDRD) Non-Af 42 L BUN/Creatinine Ratio 18.2 Glucose 139 H Lactic Acid 4.2 H* Calcium 9.2 Total Bilirubin 0.25 AST 24 ALT 16 Alkaline Phosphatase 85 Total Protein 7.2 Albumin 3.7 Globulin 3.4 Albumin/Globulin Ratio 1.1 Urine Color Urine Clarity Urine pH Ur Specific [place] Urine Protein Urine Glucose (UA) Urine Ketones Urine Occult Blood Urine Nitrite Urine Bilirubin Urine Urobilinogen Ur Leukocyte Esterase Urine RBC Urine WBC Ur Squamous Epith Cells Amorphous Sediment Urine Bacteria Urine Mucus 08/14/24 22:06 WBC RBC Hgb Hct MCV MCH MCHC RDW Std Deviation RDW Coeff of Jerry Plt Count MPV Immature Gran % (Auto) Neut % (Auto) Lymph % (Auto) [place] % (Auto) Eos % (Auto) Baso % (Auto) Absolute Neuts (auto) Absolute Lymphs (auto) Nucleated RBC % Differential Comment Platelet Estimate RBC Morphology Anisocytosis PT INR APTT Sodium Potassium Chloride Carbon Dioxide Anion Gap BUN Creatinine Est GFR (MDRD) Non-Af BUN/Creatinine Ratio Glucose Lactic Acid Calcium Total Bilirubin AST ALT Alkaline Phosphatase Total Protein Albumin Globulin Albumin/Globulin Ratio Urine Color Red Urine Clarity Cloudy Urine pH 8.0 Ur Specific [place] 1.010 Urine Protein 100 H Urine Glucose (UA) Normal Urine Ketones 5 H Urine Occult Blood 250 H Urine Nitrite Negative Urine Bilirubin Negative Urine Urobilinogen Normal Ur Leukocyte Esterase 500 H Urine RBC > 100 SEEN Urine WBC 50-100 SEEN Ur Squamous Epith Cells 5-10 SEEN Amorphous Sediment 2+ PHOS Urine Bacteria RARE Urine Mucus 0 SEEN Radiography Chest X-Ray - ED: 2 View and Read by Radiologist Diagnostic Testing: Clinical Impression(s) from Imaging Studies Abdomen/Pelvis CT 08/14/24 21:00 IMPRESSION: 1. Mild/moderate right hydroureteronephrosis without an obstructing calculus. Underlying obstructive bladder lesion not excluded. Recommend further assessment with nonemergent CT urogram and/or direct visualization. 2. Underdistended bladder with diffuse wall thickening and mild perivesicular fat stranding. Correlate for possible cystitis. Suprapubic catheter in place. 3. Additional chronic findings as above. One or more dose reduction techniques were used (e.g., Automated exposure control, adjustment of the mA and/or kV according to patient size, use of iterative reconstruction technique). Reading Location: [facility] Chest X-Ray 08/14/24 21:29 IMPRESSION: No focal airspace abnormality. Reading Location: [facility] EKG Initial EKG: Interpretation: Sinus Tachycardia Differential Diagnosis Differential Diagnosis: Renal calculus Differential Diagnosis: UTI/urosepsis Management Discussion w/another healthcare provider: Other (Dr. Nicolas, ED provider) Treatment and Re-Evaluation :: Patient developed fever of 102.9 while in the ED with heart rate 146 and hypotension. He was started on the sepsis pathway. He responded well to Tylenol and IV fluids with repeat temp of 97.8, heart rate 124, and BP 101/61. Patient received a total of 3 mL normal saline, Tylenol 1 g, morphine 4 mg, and Zofran 4 mg. Upon reevaluation, patient appears much improved. CT abdomen and pelvis shows a mild/moderate right hydroureternephrosis without an obstructing calculus with and underlying obstructive bladder lesion that cannot be excluded. Patient also received ceftriaxone 2 g. He will be admitted for urosepsis. <Dr. Kishore Nicolas MD - Last Filed: 08/17/24 23:56> [facility] MDM Narrative Medical decision making narrative: IV initiated. CBC will be obtained to evaluate for leukocytosis. BMP will be obtained to evaluate for electrolyte imbalance. CT abdomen will be obtained to evaluate for potential kidney stone. I have personally performed a face to face assessment of the patient and have reviewed the ADONIS Note. I performed a substantive portion of the visit including all aspects of the following. My hurd findings include: History is 78-year-old male history of prostate cancer prior prostatectomy. Also has a chronic indwelling suprapubic catheter. Complaining of right flank pain began several hours ago. Intermittent comes and goes in waves. No prior kidney stone. Denies any recent illness. No fever. No vomiting or diarrhea. No dysuria. History of bladder spasms. Exam is [78-year-old male vital signs are stable he is afebrile he does not look septic toxic. He clinically looks comfortable and finally has waves of pain causing right flank pain in the appears obviously uncomfortable and that was hit. H EENT exam pupils round react light. Mytrex members. Neck nontender no lymphadenopathy. No meningismus. Lungs clear to auscultation bilaterally. Heart tachycardic 110 no murmur. Chest wall ribs nontender. Abdomen soft nondistended normal bowel sounds without peritoneal signs. No obstruction. Suprapubic catheter was bag was changed. He is clear yellow urine. Moving all 4 extremities. Nontender no edema. Back nontender. Neurologically is awake alert no focal motor deficits.] Medical Decision Making [78-year-old male right flank pain. To be treated with IV morphine and Zofran. CAT scan the labs are being obtained.] Other additions or changes: [ repeat exam at 10:54 PM. Patient is improving with the IV fluids. He has had IV antibiotic Rocephin started. Blood and urine cultures have been sent. He has received 2 L of fluid he will be given a third. Hospitalist on page to admit for urosepsis. Currently his blood pressure stable with a systolic over 100. He looks much better. Currently pain-free.] History & Record Review Additional record(s) reviewed:: Prior inpatient record, Prior outpatient record, Prior ED visit and Prior labs Lab Data Attestation: I reviewed the patient's lab results. Lab results narrative: CBC shows a white white count of 1.9. H&H of 12 and 36. Platelets 229. Electrolytes show a gap of 17. BUN and creatinine of 31 and 1.69 which is consistent with his chronic renal insufficiency. Glucose 139. Liver enzymes normal. Urinary tubing and drainage bag were changed prior to urinalysis. Urinalysis is infected. Creatinine 100 red cells. 1500 white cells. 5-10 epithelial cells. This is a suprapubic collection. Rare bacteria. Culture sent. Labs: Laboratory Results - last 24 hr 08/14/24 08/14/24 08/14/24 19:40 21:30 21:40 WBC 1.9 L RBC 4.23 L Hgb 12.0 L Hct 36.1 L MCV 85.3 MCH 28.4 MCHC 33.2 RDW Std Deviation 43.3 RDW Coeff of Jerry 14.0 Plt Count 229 MPV 9.6 Immature Gran % (Auto) 1.000 H Neut % (Auto) 76.8 H Lymph % (Auto) 15.5 L [place] % (Auto) 0.5 Eos % (Auto) 5.7 H Baso % (Auto) 0.5 Absolute Neuts (auto) 1.5 L Absolute Lymphs (auto) 0.30 L Nucleated RBC % 0 Differential Comment SEE COMMENT Platelet Estimate ADEQUATE RBC Morphology NORM C+C Anisocytosis RARE PT 15.5 H INR 1.2 APTT 26.3 Sodium 139 Potassium 4.5 Chloride 105 Carbon Dioxide 17.4 L Anion Gap 17 H BUN 31 H Creatinine 1.69 H Est GFR (MDRD) Non-Af 42 L BUN/Creatinine Ratio 18.2 Glucose 139 H Lactic Acid 4.2 H* Calcium 9.2 Total Bilirubin 0.25 AST 24 ALT 16 Alkaline Phosphatase 85 Total Protein 7.2 Albumin 3.7 Globulin 3.4 Albumin/Globulin Ratio 1.1 Urine Color Urine Clarity Urine pH Ur Specific [place] Urine Protein Urine Glucose (UA) Urine Ketones Urine Occult Blood Urine Nitrite Urine Bilirubin Urine Urobilinogen Ur Leukocyte Esterase Urine RBC Urine WBC Ur Squamous Epith Cells Amorphous Sediment Urine Bacteria Urine Mucus 08/14/24 22:06 WBC RBC Hgb Hct MCV MCH MCHC RDW Std Deviation RDW Coeff of Jerry Plt Count MPV Immature Gran % (Auto) Neut % (Auto) Lymph % (Auto) [place] % (Auto) Eos % (Auto) Baso % (Auto) Absolute Neuts (auto) Absolute Lymphs (auto) Nucleated RBC % Differential Comment Platelet Estimate RBC Morphology Anisocytosis PT INR APTT Sodium Potassium Chloride Carbon Dioxide Anion Gap BUN Creatinine Est GFR (MDRD) Non-Af BUN/Creatinine Ratio Glucose Lactic Acid Calcium Total Bilirubin AST ALT Alkaline Phosphatase Total Protein Albumin Globulin Albumin/Globulin Ratio Urine Color Red Urine Clarity Cloudy Urine pH 8.0 Ur Specific [place] 1.010 Urine Protein 100 H Urine Glucose (UA) Normal Urine Ketones 5 H Urine Occult Blood 250 H Urine Nitrite Negative Urine Bilirubin Negative Urine Urobilinogen Normal Ur Leukocyte Esterase 500 H Urine RBC > 100 SEEN Urine WBC 50-100 SEEN Ur Squamous Epith Cells 5-10 SEEN Amorphous Sediment 2+ PHOS Urine Bacteria RARE Urine Mucus 0 SEEN Radiography Diagnostic Testing: Clinical Impression(s) from Imaging Studies Abdomen/Pelvis CT 08/14/24 21:00 IMPRESSION: 1. Mild/moderate right hydroureteronephrosis without an obstructing calculus. Underlying obstructive bladder lesion not excluded. Recommend further assessment with nonemergent CT urogram and/or direct visualization. 2. Underdistended bladder with diffuse wall thickening and mild perivesicular fat stranding. Correlate for possible cystitis. Suprapubic catheter in place. 3. Additional chronic findings as above. One or more dose reduction techniques were used (e.g., Automated exposure control, adjustment of the mA and/or kV according to patient size, use of iterative reconstruction technique). Reading Location: [facility] Chest X-Ray 08/14/24 21:29 IMPRESSION: No focal airspace abnormality. Reading Location: NO <Dr. Kishore Nicolas MD - Last Filed: 08/17/24 23:56> Critical Care Time Critical Care Time: Yes Critical care time (excluding procedures): 30-74 minutes, Including time spent:, Discussing w/Patient &/or Family/Program Facilitator, Discussing w/Consultants, Arranging Admission or Transfer, Performing Direct Patient Care at Bedside and - (40 minutes) Discharge Plan Dx/Rx/DC Orders Clinical Impression: Acute abdominal pain in right flank, History of prostate cancer, Sepsis, Acute hypotension, Acute UTI Disposition Disposition: Acute Care Hospital [facility] Discharge Date/Time: 08/14/24 23:50
[2024-08-14 20:38] LABS: Platelet Estimate ADEQUATE (ADEQ)
[2024-08-14 20:39] LABS: Anisocytosis RARE; Red Cell Morphology NORM C+C NORMAL (NORM C&C)
[2024-08-14] MEDS: 0.9% Normal Saline (1000mL) 1,000 ML 999 ML IV ×2 (20:52→22:29)
[2024-08-14] MEDS: Ondansetron 4 MG/2 ML Vial IV (20:52)
[2024-08-14] MEDS: Morphine 4 MG/ML Syringe IV (20:53)
--- NOTE | 2024-08-14 21:00 | CT_ITS ---
PROCEDURE: CT abdomen and pelvis without IV contrast REASON FOR EXAM: LEFT FLANK PAIN TECHNIQUE: Multiple contiguous axial images through the abdomen and pelvis were obtained without the administration of intravenous contrast. Two-dimensional coronal and sagittal reformatted images were reconstructed. Low-dose imaging technique was utilized. COMPARISON: 02/14/2023 FINDINGS: No acute findings in the lung bases. Small hiatal hernia. Unenhanced liver, spleen, and adrenal glands are within normal limits. Gallbladder is satisfactory. No significant biliary ductal dilation. Mild/moderate right hydroureteronephrosis without an obstructing calculus. Chronic bilateral perinephric fat stranding. No renal calculi. Stable small hyperdense right renal cysts. Urinary bladder is decompressed and contains a Worthy suprapubic catheter. Mild perivesicular fat stranding. Distal colonic diverticulosis. No bowel obstruction, focal bowel wall thickening or significant perienteric inflammation. Normal appendix. No pelvic free fluid. No free air. Calcified nonaneurysmal abdominal aorta. No suspicious adenopathy. Small bilateral fat containing inguinal hernias. No acute osseous abnormality. Degenerative changes of the spine. Bilateral pars defects at L5. CT/Abdomen/Pelvis without Cont IMPRESSION: 1. Mild/moderate right hydroureteronephrosis without an obstructing calculus. Underlying obstructive bladder lesion not excluded. Recommend further assessment with nonemergent CT urogram and/or dire ct visualization. 2. Underdistended bladder with diffuse wall thickening and mild perivesicular f at stranding. Correlate for possible cystitis. Suprapubic catheter in place. 3. Additional chronic findings as above. One or more dose reduction techniques were used (e.g., Automated exposure contr ol, adjustment of the mA and/or kV according to patient size, use of iterative reconstruction technique). Reading Location: NO
--- NOTE | 2024-08-14 21:29 | RAD_ITS ---
PROCEDURE: CHEST PA AND LATERAL REASON FOR EXAM: SEPSIS TECHNIQUE: Frontal and lateral views of the chest. COMPARISON: 12/21/2023 FINDINGS: Cardiomediastinal silhouette is within normal limits. Lungs are clear. No sizable pneumothorax. RAD/Chest PA and Lateral IMPRESSION: No focal airspace abnormality. Reading Location: NO
--- NOTE | 2024-08-14 21:29 | EKG12_ITS ---
Test Reason : DYSRHYTHMIA Blood Pressure : */* mmHG Vent. Rate : 140 BPM Atrial Rate : 140 BPM P-R Int : 184 ms QRS Dur : 76 ms QT Int : 322 ms P-R-T Axes : * 72 31 degrees QTcB Int : 491 ms Critical Test Result: High HR Sinus tachycardia Otherwise normal ECG Confirmed by JACQUIE HOOK, NEHEMIAS ([id number]), social media editor АНДРЕЙ GROSS ([id number]) on 08/20/2024 11:19:46 AM Referred By: Confirmed By: NEHEMIAS DHILLON MD
[2024-08-14] MEDS: Acetaminophen 500 MG Tablet 1000 MG PO (21:42)
[2024-08-14 22:09] LABS: International Normalized Ratio 1.2; Prothrombin Time (Protime)PT. 15.5 SECONDS (11.7-14.9)
[2024-08-14 22:18] LABS: Mucous, Urine 0 SEEN /hpf (<or=2+)
[2024-08-14 22:28] LABS: Partial Thromboplast Time 26.3 Seconds (24.1-36.2)
[2024-08-14] MEDS: Ceftriaxone 2 GM in 0.9% Normal Saline (50mL MB+) 50 ML IV (22:28)
[2024-08-14 22:30] LABS: Color, Urine Red (Yellow); Glucose, Dipstick Normal (Normal); Ketone-Dipstick 5 mg/dl (Negative); Leukocyte Esterase-Dipstick 500 /ul (Negative); Nitrite-Dipstick Negative (Negative); Occult Blood-Urine 250 /ul (Negative); Protein-Dipstick 100 mg/dl (Negative); Urine Bilirubin Dipstick Negative (Negative); Urine Clarity Cloudy (Clear); Urine Urobilinogen Normal (Normal)
[2024-08-14 22:46] LABS: Red Blood Cells-Urine > 100 SEEN /hpf (0-5); White Blood Cells 50-100 SEEN /hpf (0-5)
[2024-08-14 22:47] LABS: Amorphous Sediment 2+ PHOS; Bacteria RARE /hpf (None Seen); Squamous Epithelial Cells - UA 5-10 SEEN /hpf (0-5)
[2024-08-14 23:07] LABS: Lactic Acid 4.2 mmol/L (0.0-2.0)
--- NOTE | 2024-08-14 23:22 | PCM.HP.STD ---
[facility] - General General Date of Admission: 08/14/24 Date of Service: 08/14/24 Chief Complaint: Fever, Right Flank Pain and Hematuria. [facility] Narrative BARBARA MILAN, is a 78 M with a past medical history of essential hypertension; on lisinopril and amlodipine, overweight; with BMI of 29.6 this admission, history of TIA, history of prostate cancer; s/p radical prostatectomy (2011) and radiation with subsequent chronic radiation cystitis, chronic urinary retention with chronic suprapubic catheter; on terazosin, history of bladder neck contracture, history of UTI; with sepsis, history of hematuria, history of cystoscopies x 5, history of colonoscopy (2015), history of depression; not currently on treatment, chronic hearing loss and OA; with history of Left TKR who presents to [facility] ER complaining of fever, Right flank pain and hematuria. Mr. Milan reports his symptoms began approximately 4.5 hours prior to arrival with the abrupt-onset of Right flank pain that was severe, 10/10, sharp, stabbing, intermittent and was made better or worse by nothing. He also admits to associated intermittent bladder spasms with hematuria following the spasms while he was at home which resolved with increased fluid intake. He then took acetaminophen at ~2 PM to help with his bladder spasms and changed his catheter tubing and bag at that time. He admits to associated fever up to ~100 ?F confirmed in ER, chills and nausea with 1 episode of bilious emesis upon arrival to the ER. He denies related chest pain, lightheadedness, dizziness, shortness of breath, headache, rash or focal neurologic deficits. In the ER he was noted to have Severe Leukopenia of 1.9K with Left-shift of 1% along with Lactic Acidosis of 4.2 mmol/L present on admission with a corresponding UA grossly positive for Acute Cystitis; with hematuria consistent with Sepsis with Septic Shock as patient's blood pressure dropped into the ~70 mmHg systolic range and spite of 3L fluid bolus complicated by addition laboratory evidence of CHRIS; with elevated serum creatinine of 1.69 mg/dL and BUN of 31 mg/dL (up from his baseline of 1.47 mg/dL and 24 mg/dL on July 19, 2024) compounded by CT evidence of mild-moderate Right hydroureteronephrosis without an obstructing calculus. Obstructive bladder lesion not excluded. Recommend further assessment with nonemergent CT urogram and/or direct visualization. Under distended bladder with diffuse wall thickening and mild perivesicular fat stranding correlate for possible cystitis with suprapubic catheter in place. He was then admitted to the ICU for ongoing care under the sepsis protocol for stay that is expected to extend beyond 2 midnights. [facility] Medical History Hearing loss, left Hearing loss, right Anxiety Depression Chronic indwelling Worthy catheter TIA (transient ischemic attack) Chronic radiation cystitis Worthy catheter in place Wears glasses Cancer Arthritis Non-smoker History of pain when walking History of edema Hypertension Prostate cancer Blood in urine Home Medications ?Medication ?Instructions ?Recorded ?Last Taken ?Type amlodipine 10 mg tablet 10 mg PO DAILY BLOOD PRESSURE 12/08/18 01/13/24 History lisinopril 40 mg tablet 40 mg PO BID BLOOD PRESSURE 12/08/18 01/13/24 History terazosin 5 mg capsule 5 mg PO QPM BLOOD PRESSURE 12/08/18 01/13/24 History multivit,Ca,min-iron 8 mg-folic 1 tab PO DAILY SUPPLEMENT 11/04/23 01/13/24 History acid 200 mcg-lycopene 600 mcg tablet (A Thru Z [employer]) Allergy/AdvReac Type Severity Reaction Status Date / Time losartan Allergy Mild Rash Verified 08/14/24 19:22 Sulfa (Sulfonamide Allergy Hives Verified 08/14/24 19:22 Antibiotics) atenolol AdvReac Mild WEAKNESS Verified 08/14/24 19:22 hydrochlorothiazide AdvReac Mild UNKNOWN Verified 08/14/24 19:22 indomethacin (From Indocin) AdvReac Mild GI upset Verified 08/14/24 19:22 Surgical History History of left knee replacement Hx of radical prostatectomy Hx of cystoscopy Hx of colonoscopy Social History household members: spouse housing: house Smoking Status: Never smoker ROS ROS Narrative Review of Systems: Constitutional: Patient admits to fever and chills as per HPI. Eyes: Patient denies changes vision or discharge from eyes. ENT: Patient denies runny nose, sore throat or ear pain. Resp: Patient denies shortness of breath or cough. CV: Patient denies chest pain, palpitations or heart racing. GI: Patient admits to nausea with 1 episode of bilious emesis noted on arrival as per HPI. He denies diarrhea or constipation. : Patient admits to severe Right flank pain with hematuria with suprapubic catheter in place as per HPI. MSK: Patient admits to right flank pain but he denies arthralgias or myalgias. Skin: Patient denies abscess, rash or wounds. Psych: Patient denies symptoms of uncontrolled depression or anxiety. Neuro: Patient denies headache, paresthesias or focal neurologic deficits. Allergy: Patient denies lip swelling, tongue swelling or urticaria. Hematology: Patient admits to intermittent hematuria as noted in HPI. Endocrinology: Patient denies polyuria, polydipsia or polyphagia. 14 point ROS otherwise negative except for positives noted above in HPI. Vital Signs Vital Signs Vital Signs: 08/14/24 19:22 08/14/24 21:21 08/14/24 21:37 Temperature 97.8 F 102.9 F H 102.9 F H Temperature Source Oral Oral Oral Pulse Rate 124 H 140 H 146 H Respiratory Rate 26 H 24 H 38 H Blood Pressure 101/61 95/50 L 75/50 L Blood Pressure Mean 74 65 58 Pulse Ox 98 97 97 Oxygen Delivery Method Room Air Room Air Room Air Oxygen Flow Rate (L/min) 08/14/24 21:37 08/14/24 21:44 08/14/24 21:44 Temperature Temperature Source Pulse Rate 140 H Respiratory Rate 24 H Blood Pressure 89/73 L 89/73 L Blood Pressure Mean 79 79 Pulse Ox Oxygen Delivery Method Oxygen Flow Rate (L/min) 08/14/24 21:44 08/14/24 21:45 08/14/24 21:45 Temperature Temperature Source Pulse Rate 143 H Respiratory Rate 22 H Blood Pressure 89/73 L Blood Pressure Mean 79 Pulse Ox 91 Oxygen Delivery Method Nasal Cannula Oxygen Flow Rate (L/min) 2 08/14/24 22:00 08/14/24 22:15 08/14/24 22:30 Temperature Temperature Source Pulse Rate 137 H 128 H 117 H Respiratory Rate 33 H 21 H 28 H Blood Pressure 119/64 Blood Pressure Mean 81 Pulse Ox 96 Oxygen Delivery Method Oxygen Flow Rate (L/min) 08/14/24 22:45 08/14/24 23:00 Temperature Temperature Source Pulse Rate 113 H 122 H Respiratory Rate 27 H 28 H Blood Pressure 96/55 L Blood Pressure Mean 68 Pulse Ox 94 95 Oxygen Delivery Method Nasal Cannula Oxygen Flow Rate (L/min) 2 Weight Weight: 200 lb 6.403 oz Body Mass Index (BMI) 29.5 Physical Exam Const alert, oriented x3, no apparent distress and average body habitus General Appearance: cooperative HEENT normocephalic, head/scalp atraumatic and hearing grossly normal bilaterally HEENT Narrative: Mucous membranes dry. Eyes PERRL, EOMs intact bilaterally and conjunctivae normal Neck no lymphadenopathy and supple Resp normal respiratory effort, no retractions, no use of accessory muscles and clear to auscultation bilaterally Cardio regular rate and regular rhythm GI normal to inspection, nondistended, normoactive bowel sounds, soft to palpation, non-tender and non-distended Extremity normal to inspection, full ROM and no clubbing, cyanosis or edema Skin Skin Narrative: Patient's evidence of rash, abscess, wounds or jaundice. Neuro oriented x3, CN's II-XII intact bilaterally, moves all extremities and no focal motor deficits Sensorium / Orientation: awake, alert, oriented to person, oriented to place and oriented to time Speech: speech normal Psych affect normal Results Medical Records Data Attestation: I reviewed the patient's medical records Lab / Micro Data Attestation: I reviewed the patient's lab results. 08/14/24 19:40 08/14/24 19:40 Labs: Laboratory Results - last 24 hr 08/14/24 19:40: WBC 1.9 L, RBC 4.23 L, Hgb 12.0 L, Hct 36.1 L, MCV 85.3, MCH 28.4, MCHC 33.2, RDW Std Deviation 43.3, RDW Coeff of Jerry 14.0, Plt Count 229, MPV 9.6, Immature Gran % (Auto) 1.000 H, Neut % (Auto) 76.8 H, Lymph % (Auto) 15.5 L, [place] % (Auto) 0.5, Eos % (Auto) 5.7 H, Baso % (Auto) 0.5, Absolute Neuts (auto) 1.5 L, Absolute Lymphs (auto) 0.30 L, Nucleated RBC % 0, Differential Comment SEE COMMENT, Platelet Estimate ADEQUATE, RBC Morphology NORM C+C, Anisocytosis RARE, Sodium 139, Potassium 4.5, Chloride 105, Carbon Dioxide 17.4 L, Anion Gap 17 H, BUN 31 H, Creatinine 1.69 H, Est GFR (MDRD) Non-Af 42 L, BUN/Creatinine Ratio 18.2, Glucose 139 H, Calcium 9.2, Total Bilirubin 0.25, AST 24, ALT 16, Alkaline Phosphatase 85, Total Protein 7.2, Albumin 3.7, Globulin 3.4, Albumin/Globulin Ratio 1.1 08/14/24 21:30: Lactic Acid 4.2 H* 08/14/24 21:40: PT 15.5 H, INR 1.2, APTT 26.3 08/14/24 22:06: Urine Color Red, Urine Clarity Cloudy, Urine pH 8.0, Ur Specific [place] 1.010, Urine Protein 100 H, Urine Glucose (UA) Normal, Urine Ketones 5 H, Urine Occult Blood 250 H, Urine Nitrite Negative, Urine Bilirubin Negative, Urine Urobilinogen Normal, Ur Leukocyte Esterase 500 H, Urine RBC > 100 SEEN, Urine WBC 50-100 SEEN, Ur Squamous Epith Cells 5-10 SEEN, Amorphous Sediment 2+ PHOS, Urine Bacteria RARE, Urine Mucus 0 SEEN Micro: Microbiology 08/14/24 21:40 Mucosa - Nose SARS-CoV-2, Influenza & RSV (PCR) - Final Imaging Radiology Impression Abdomen/Pelvis CT 08/14/24 21:00 IMPRESSION: 1. Mild/moderate right hydroureteronephrosis without an obstructing calculus. Underlying obstructive bladder lesion not excluded. Recommend further assessment with nonemergent CT urogram and/or direct visualization. 2. Underdistended bladder with diffuse wall thickening and mild perivesicular fat stranding. Correlate for possible cystitis. Suprapubic catheter in place. 3. Additional chronic findings as above. One or more dose reduction techniques were used (e.g., Automated exposure control, adjustment of the mA and/or kV according to patient size, use of iterative reconstruction technique). Reading Location: [facility] Chest X-Ray 08/14/24 21:29 IMPRESSION: No focal airspace abnormality. Reading Location: [facility] Assessment & Plan Assessment/Plan (1) Sepsis: QUALIFIERS: Acute renal failure type: unspecified Sepsis acute organ dysfunction status: with acute organ dysfunction Sepsis type: sepsis due to unspecified organism Severe sepsis acute organ dysfunction type: acute renal failure Severe sepsis shock status: with septic shock Qualified Code(s): A41.9 - Sepsis, unspecified organism; R65.21 - Severe sepsis with septic shock; N17.9 - Acute kidney failure, unspecified (2) UTI (urinary tract infection) due to urinary indwelling catheter: QUALIFIERS: Encounter type: initial encounter Indwelling urinary catheter type: cystostomy catheter Qualified Code(s): T83.510A - Infection and inflammatory reaction due to cystostomy catheter, initial encounter; N39.0 - Urinary tract infection, site not specified (3) Acute abdominal pain in right flank: (4) Hematuria syndrome: (5) Lesion of bladder: (6) CHRIS (acute kidney injury): (7) History of prostate cancer: (8) History of prostatectomy: (9) Chronic radiation cystitis: (10) Overweight (BMI 25.0-29.9): PLAN: Plan 1. Severe Leukopenia of 1.9K with Left-shift of 1% along with Lactic Acidosis of 4.2 mmol/L present on admission with a corresponding UA grossly positive for Acute Cystitis; with hematuria consistent with Sepsis with Septic Shock due to suprapubic catheter as patient's blood pressure dropped into the ~70 mmHg systolic range and spite of 3L fluid bolus in the setting of a known previous history of UTI with Sepsis - Admit to ICU for treatment under the Sepsis protocol. Stop IV ceftriaxone in favor of IV piperacillin-tazobactam given patient's critical illness and await culture and sensitivity data. Patient started on Levophed to keep MAP greater than 65 mmHg with PICC line ordered for a.m. Give acetaminophen prn for [id number] (level 1-5/10) pain or fever. Give morphine IV prn for severe (level 6-10/10) pain. Give ondansetron IV prn for nausea or vomiting. Finally, we will consult pulmonary / critical-care to see this patient on rounds in the a.m. for further recommendations with help appreciated in advance. 2. CHRIS; with elevated serum creatinine of 1.69 mg/dL and BUN of 31 mg/dL (up from his baseline of 1.47 mg/dL and 24 mg/dL on July 19, 2024) complicating #1 - Vigorously volume resuscitate and recheck renal indices daily to follow trend. We will avoid potentially nephrotoxic medications. 3. CT evidence of mild-moderate Right hydroureteronephrosis without an obstructing calculus. Obstructive bladder lesion not excluded. Recommend further assessment with nonemergent CT urogram and/or direct visualization. Under distended bladder with diffuse wall thickening and mild perivesicular fat stranding correlate for possible cystitis with suprapubic catheter in place adding to the medical complexity of #1 & #2 - We we will check PSA screen to evaluate for recurrence of possible prostate cancer with bladder lesion noted. Finally, we will consult urology to see this patient on rounds in the a.m. for further recommendations regarding possible cystoscopy this admission with recurrent hematuria and possible bladder lesion on CT without appreciated in advance. 4. History of prostate cancer; s/p radical prostatectomy (2011) and radiation with subsequent chronic radiation cystitis and subsequent cystoscopies x 5 - Noted. 5. Chronic urinary retention with chronic suprapubic catheter; on terazosin - Noted. Hold terazosin at this time due to hypotension noted in #1. 6. History of bladder neck contracture - Noted. 7. Overweight; with BMI of 29.6 this admission adding to the burden of disease outlined from #1 - #6 - Noted. Weight loss will be recommended. Check TSH. 8. Essential Hypertension; on lisinopril and amlodipine - Hold scheduled antihypertensives at this time due to #1. 9. History of TIA - Noted with no signs of recurrence at this time. 10. History of colonoscopy (2015) - Noted. 11. History of depression; not currently on treatment - Stable. 12. Chronic hearing loss - Stable. 13. OA; with history of Left TKR - Give acetaminophen according to pain scale outlined in #1. 14. DVT prophylaxis - SCD's only in light of recurrent hematuria and suspected bladder lesion with possible impending cystoscopy. Total time: Approximately (but not less than) 75 minutes. Sepsis Attestation Sepsis Alert: Yes Sepsis Attestation: Agree w/Sepsis Date exam was performed: 08/14/24 Time exam was performed: 23:45 Possible Source of Sepsis: Implantable device and Genitourinary Sepsis Organ Dysfunction Criteria Present: SBP < 90 mmHg or MAP < 65 mmHg Supportive Findings: Severe Leukopenia of 1.9K with Left-shift of 1% along with Lactic Acidosis of 4.2 mmol/L present on admission with a corresponding UA grossly positive for Acute Cystitis; with hematuria consistent with Sepsis with Septic Shock due to suprapubic catheter as patient's blood pressure dropped into the ~70 mmHg systolic range and spite of 3L fluid bolus in the setting of a known previous history of UTI with Sepsis Fluid Resuscitation Fluid resuscitation indicated?: Yes Fluid Resuscitation ordered: 30 ml/kg fluid bolus ordered Amount of fluid ordered: 3 Sepsis Note Date exam was performed: 08/15/24 Time exam was performed: 02:00 Sepsis Attestation: Sepsis re-evaluation was performed Response to fluids: Non Fluid responsive hypotension and Vasopressors started Charges/Coding Visit Charges Inpatient E&M: 71718 Init Hosp L3
[2024-08-15] VITALS (55 sets, daily range): BP systolic 62–126; BP diastolic 37–76; PULSE 73–111; RESP 18–99; TEMP 36.4–37.4; O2SAT 90–98; BMI 29.0
--- NOTE | 2024-08-15 00:11 | ED.RN ---
2345: REPORT CALLED TO ICU NURSEGALA. NO FURTHER QUESTIONS AT THIS TIME.
[2024-08-15] MEDS: Piperacil/Tazobactam 3.375 GM in 0.9% Normal Saline (50mL MB+) 50 ML IV ×4 (00:16→20:47)
[2024-08-15] MEDS: 0.9% Normal Saline (1000mL) 1,000 ML 999 ML IV (00:16)
[2024-08-15 01:13] LABS: Hemoglobin A1c 6.3 % (<=5.6)
[2024-08-15] MEDS: Norepinephrine 8 MG in 0.9% Normal Saline (250mL Bag) 242 ML 9.4 MG CONT INF (01:19)
[2024-08-15] MEDS: 0.9% Normal Saline (1000mL) 1,000 ML 100 ML IV (01:21)
[2024-08-15 01:34] LABS: Vitamin B12 1133 pg/mL (180-914)
[2024-08-15] MEDS: Albumin Human 25% (100 mL) 25 GM/100 ML BAG IV (02:34)
[2024-08-15 03:45] LABS: PSA,Total - Annual Screen < 0.02 ng/mL (0.02-4.00)
[2024-08-15] MEDS: Acetaminophen 325 MG Tablet 650 MG PO ×2 (06:52→23:13)
--- NOTE | 2024-08-15 07:07 | PCM.PN.HOSP ---
Reason for Visit Reason for Visit: Diagnoses Sepsis, unspecified organism (08/14/24) Overweight (08/14/24) Acute kidney failure, unspecified (08/14/24) Irradiation cystitis without hematuria (08/14/24) Bladder disorder, unspecified (08/14/24) Urinary tract infection, site not specified (08/14/24) Unspecified abdominal pain (08/14/24) Hematuria, unspecified (08/14/24) Severe sepsis with septic shock (08/14/24) Infection and inflammatory reaction due to cystostomy catheter, initial encounter (08/14/24) Personal history of malignant neoplasm of prostate (08/14/24) 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) Subjective Subjective Patient evaluated bedside, already feeling better than he had though still generally unwell, no shortness of breath Objective Data Objective Data Vital Signs: Vital Signs Temp Pulse Resp BP Pulse Ox O2 Del Method O2 Flow Rate 98.6 F 98 23 H 91/50 L 96 Nasal Cannula 3 08/15/24 04:00 08/15/24 07:00 08/15/24 07:00 08/15/24 07:00 08/15/24 07:00 08/15/24 07:00 08/15/24 07:00 Oxygen Flow Rate (L/min) 3 Oxygen Delivery Method Nasal Cannula Weight: 89 kg Body Mass Index (BMI) 29.0 Intake & Output: Intake and Output for Last 24 Hours 08/13/24 08/14/24 08/15/24 23:59 23:59 23:59 Intake Total 2049 1289.25 / 1289.25 Balance 2049 1289.25 / 1289.25 Lab / Micro Data 08/15/24 07:35 08/15/24 07:35 Labs: Laboratory Results - last 24 hr 08/14/24 19:40: WBC 1.9 L, RBC 4.23 L, Hgb 12.0 L, Hct 36.1 L, MCV 85.3, MCH 28.4, MCHC 33.2, RDW Std Deviation 43.3, RDW Coeff of Jerry 14.0, Plt Count 229, MPV 9.6, Immature Gran % (Auto) 1.000 H, Neut % (Auto) 76.8 H, Lymph % (Auto) 15.5 L, [place] % (Auto) 0.5, Eos % (Auto) 5.7 H, Baso % (Auto) 0.5, Absolute Neuts (auto) 1.5 L, Absolute Lymphs (auto) 0.30 L, Nucleated RBC % 0, Differential Comment SEE COMMENT, Platelet Estimate ADEQUATE, RBC Morphology NORM C+C, Anisocytosis RARE, Sodium 139, Potassium 4.5, Chloride 105, Carbon Dioxide 17.4 L, Anion Gap 17 H, BUN 31 H, Creatinine 1.69 H, Est GFR (MDRD) Non-Af 42 L, BUN/Creatinine Ratio 18.2, Glucose 139 H, Hemoglobin A1c 6.3, Calcium 9.2, Total Bilirubin 0.25, AST 24, ALT 16, Alkaline Phosphatase 85, Total Protein 7.2, Albumin 3.7, Globulin 3.4, Albumin/Globulin Ratio 1.1, Vitamin B12 1133 H, TSH 3.660 08/14/24 19:42: Serum Folate 18.20 08/14/24 21:30: Lactic Acid 4.2 H* 08/14/24 21:40: PT 15.5 H, INR 1.2, APTT 26.3 08/14/24 22:06: Urine Color Red, Urine Clarity Cloudy, Urine pH 8.0, Ur Specific [place] 1.010, Urine Protein 100 H, Urine Glucose (UA) Normal, Urine Ketones 5 H, Urine Occult Blood 250 H, Urine Nitrite Negative, Urine Bilirubin Negative, Urine Urobilinogen Normal, Ur Leukocyte Esterase 500 H, Urine RBC > 100 SEEN, Urine WBC 50-100 SEEN, Ur Squamous Epith Cells 5-10 SEEN, Amorphous Sediment 2+ PHOS, Urine Bacteria RARE, Urine Mucus 0 SEEN 08/15/24 02:55: PSA Screen < 0.02 L Micro: Microbiology 08/14/24 21:40 Mucosa - Nose SARS-CoV-2, Influenza & RSV (PCR) - Final Radiography Diagnostic Testing: Radiology Impression Abdomen/Pelvis CT 08/14/24 21:00 IMPRESSION: 1. Mild/moderate right hydroureteronephrosis without an obstructing calculus. Underlying obstructive bladder lesion not excluded. Recommend further assessment with nonemergent CT urogram and/or direct visualization. 2. Underdistended bladder with diffuse wall thickening and mild perivesicular fat stranding. Correlate for possible cystitis. Suprapubic catheter in place. 3. Additional chronic findings as above. One or more dose reduction techniques were used (e.g., Automated exposure control, adjustment of the mA and/or kV according to patient size, use of iterative reconstruction technique). Reading Location: [facility] Chest X-Ray 08/14/24 21:29 IMPRESSION: No focal airspace abnormality. Reading Location: [facility] Physical Exam Narrative General: Alert, no apparent distress HEENT: Atraumatic, normocephalic Eyes: Anicteric, normal conjunctiva, extraocular movements grossly intact Neck: Supple Respiratory: Normal respiratory effort, no significant rhonchi or wheezes Cardiovascular: Regular rate GI: Soft, nontender, nondistended Extremities: No edema Musculoskeletal: Moving all extremities Neuro: No overt focal neurological deficits Skin: No rashes appreciated Psych: Cooperative Assessment & Plan Assessment/Plan (1) Sepsis: QUALIFIERS: Acute renal failure type: unspecified Sepsis acute organ dysfunction status: with acute organ dysfunction Sepsis type: sepsis due to unspecified organism Severe sepsis acute organ dysfunction type: acute renal failure Severe sepsis shock status: with septic shock Qualified Code(s): A41.9 - Sepsis, unspecified organism; R65.21 - Severe sepsis with septic shock; N17.9 - Acute kidney failure, unspecified (2) UTI (urinary tract infection) due to urinary indwelling catheter: QUALIFIERS: Encounter type: initial encounter Indwelling urinary catheter type: cystostomy catheter Qualified Code(s): T83.510A - Infection and inflammatory reaction due to cystostomy catheter, initial encounter; N39.0 - Urinary tract infection, site not specified PLAN: Plan # Septic shock suspect secondary to UTI in the setting of chronic suprapubic catheter -Patient febrile in the ED with temp of 102.9, tachycardic with heart rate in 140s, blood pressure in the ED down to 75/50 with a MAP of 58 with respiratory rate of 38, patient's O2 sat also decreased necessitating 2 L of nasal cannula in place, patient with bicarb of 17.4 in the ED with gap of 17, lactic acid of 4.2 and increasing creatinine up to 1.69 with baseline seemingly closer to 1.3 -UA suggestive of UTI -CT scan also suggestive of possible cystitis -Blood and urine cultures ordered -Ucx +, organism and sensitivity data pending, blood cultures 2 out of 2 also positive for gram-negative rods -Patient started on Zosyn -Patient received 3 L IV fluid and has remained hypotensive so norepinephrine ordered -Patient presently admitted in the ICU, safety compliance specialist consulted # Creatinine elevation from baseline in setting of mild to moderate right hydroureteronephrosis -Patient's creatinine 1.69, baseline seems closer to 1.3 -CT scan in the ED showed mild/moderate right hydroureteronephrosis without obstructing calculus, underlying obstructive bladder lesion not excluded and it was recommended further assessment with nonemergent CT urogram and/or direct visualization -Patient has previously seen Dr. Gilliland, Dr. Gilliland consulted but it is suspected this is chronic and there is no current plan for intervention, patient to be monitored # History of prostate cancer -Status post prostate removal and radiation therapy through [facility] with subsequent bladder neck contracture and ultimately suprapubic catheter -PSA undetectable #Hypertension -Patient with septic shock, hold amlodipine, lisinopril, terazosin and #DVT ppx: SCDs Juany Souza MD Charges/Coding Visit Charges Inpatient E&M: 91015 Subs Hosp L2
[2024-08-15 07:43] LABS: Absolute Lymphocyte Count 0.24 X10^3/uL (0.83-4.51); Absolute Neutrophil Count 12.2 X10^3/uL (2.0-7.7); Basophil# 0.02 X10^3/uL; Basophil% 0.2 % (0-1); Eosinophil# 0.01 X10^3/uL; Eosinophils% 0.1 % (0-5); Hematocrit 27.5 % (40-54); Hemoglobin 9.1 g/dL (13.0-16.5); Lymphocyte # 0.24 X10^3/ul (0.83-4.51); Lymphocyte % 1.8 % (19-41); Mean Corp Hgb Conc 33.1 g/dL (32-36); Mean Corpuscular Hgb 28.6 pg (27.0-32.0); Mean Corpuscular Volume 86.5 fL (80-94); Monocyte# 0.36 X10^3/uL; Monocyte% 2.8 % (0-10); NRBC Flagged by Analyzer 0 % (0-5); Neutrophil # 12.21 X10^3/uL (2.7-7.7); Neutrophil % 93.8 % (47-70); POSITIVE DIFFERENTIAL YES; POSITIVE MORPHOLOGY YES; Platelet Count 156 K/mm3 (150-450); RBC Distribution Width CV 14.6 % (11.6-14.6); RBC Distribution Width SD 46.3 fl (35.1-43.9); Red Blood Count 3.18 M/mm3 (4.6-6.2)
[2024-08-15 07:46] LABS: Differential Indicated SCAN CRITERIA MET
--- NOTE | 2024-08-15 08:04 | EX.PCM.CONCC ---
Assessment & Plan Assessment/Plan (1) Septic shock: PLAN: Plan RECOMMENDATIONS: 1. Continue empiric antimicrobial therapy. 2. Continue Levophed to maintain a mean arterial pressure at or above 65 mmHg. 3. Urology consultation is pending. 4. Start scheduled midodrine as ordered. 5. Initiate appropriate DVT prophylaxis. IMPRESSIONS: 1. Septic shock The patient presented to the hospital with sepsis due to probable urinary tract source of infection with acute sepsis related organ dysfunction as evidenced by lactic acidemia and fluid refractory hypotension, requiring vasopressor support. The patient will be continued on Levophed to maintain a mean arterial pressure at or above 65 mmHg. There are tentative plans for PICC line placement this morning. In addition, the patient will be started on scheduled midodrine. Empiric antimicrobials will be continued, pending urine culture results. Urology has been consulted to evaluate the patient, in light of the hydroureteronephrosis noted on CT imaging. 2. Acute on chronic kidney disease Most likely prerenal in etiology in the setting of #1. The patient has received volume expansion and will be continued on Levophed to maintain hemodynamic stability. Continue to monitor urine output for now. No current indication for renal replacement therapy. 3. History of prostate cancer/chronic urinary retention with suprapubic catheter/hypertension/depression Complicates care, management, recovery and prognosis. Continue supportive measures as noted above. Continue to hold home antihypertensives for now. If there are no plans from a urologic perspective to proceed with any form of intervention, the patient's diet can be advanced. TIME: 35 minutes of critical care time, independent of procedures, was spent addressing the patient's septic shock, acute on chronic kidney disease, review of all data and collaboration with the care team. HPI Consult Data Date of Consult: 08/15/24 HPI Narrative Reason for Consultation: Sepsis HPI Narrative: The patient is a 78-year-old male, with a history as outlined below, who presented to the emergency department on August 14 with bladder spasms, hematuria and right flank pain. The patient has a complex urologic history including radical prostatectomy and radiation secondary to prostate cancer with subsequent chronic radiation cystitis and retention leading to suprapubic catheter placement. He is currently followed by Dr. Gilliland of urology. On presentation to the emergency department, the patient was noted to have a fever 102.9 ?F. He was tachycardic, tachypneic and hypotensive. Chemistry profile was notable for a creatinine of 1.69 with a lactate of 4.2. Urinalysis was positive for leukocyte esterase and rare urine bacteria. CT abdomen/pelvis demonstrated mild to moderate right hydroureteronephrosis. The patient was ordered to receive sepsis related IV fluid resuscitation. He was started on antimicrobial therapy. Unfortunately, the patient's hypotensive with fluid refractory and the patient was ultimately placed on Levophed to maintain hemodynamic stability. The patient was subsequently admitted to the medical intensive care unit for further management. [facility] Medical History Hearing loss, left Hearing loss, right Anxiety Depression Chronic indwelling Worthy catheter TIA (transient ischemic attack) Chronic radiation cystitis Worthy catheter in place Wears glasses Cancer Arthritis Non-smoker History of pain when walking History of edema Hypertension Prostate cancer Blood in urine Home Medications ?Medication ?Instructions ?Recorded ?Last Taken ?Type amlodipine 10 mg tablet 10 mg PO DAILY BLOOD PRESSURE 12/08/18 01/13/24 History lisinopril 40 mg tablet 40 mg PO BID BLOOD PRESSURE 12/08/18 01/13/24 History terazosin 5 mg capsule 5 mg PO QPM BLOOD PRESSURE 12/08/18 01/13/24 History multivit,Ca,min-iron 8 mg-folic 1 tab PO DAILY SUPPLEMENT 11/04/23 01/13/24 History acid 200 mcg-lycopene 600 mcg tablet (A Thru Z Men's Ultimate) Allergy/AdvReac Type Severity Reaction Status Date / Time losartan Allergy Mild Rash Verified 08/14/24 19:22 Sulfa (Sulfonamide Allergy Hives Verified 08/14/24 19:22 Antibiotics) atenolol AdvReac Mild WEAKNESS Verified 08/14/24 19:22 hydrochlorothiazide AdvReac Mild UNKNOWN Verified 08/14/24 19:22 indomethacin (From Indocin) AdvReac Mild GI upset Verified 08/14/24 19:22 Surgical History History of left knee replacement Hx of radical prostatectomy Hx of cystoscopy Hx of colonoscopy Social History household members: spouse housing: house Smoking Status: Never smoker ROS ROS Narrative 10 systems were reviewed with pertinent positives as noted in the HPI above. Physical Exam Const alert, oriented x3 and no apparent distress General Appearance: cooperative HEENT normocephalic and head/scalp atraumatic Eyes PERRL, EOMs intact bilaterally and conjunctivae normal Neck supple General: trachea midline Chest inspection of chest normal Resp normal respiratory effort Auscultation: Negative for rales, rhonchi or wheezes Cardio regular rate and regular rhythm GI Negative for soft to palpation or non-tender Narrative: Suprapubic catheter in place Extremity no clubbing, cyanosis or edema Skin no rashes or lesions noted Neuro CN's II-XII intact bilaterally, moves all extremities and no focal motor deficits Psych cooperative and affect normal Lab / Micro Data 08/15/24 07:35 08/15/24 07:35 Labs: Laboratory Results - last 24 hr 08/14/24 19:40: WBC 1.9 L, RBC 4.23 L, Hgb 12.0 L, Hct 36.1 L, MCV 85.3, MCH 28.4, MCHC 33.2, RDW Std Deviation 43.3, RDW Coeff of Jerry 14.0, Plt Count 229, MPV 9.6, Immature Gran % (Auto) 1.000 H, Neut % (Auto) 76.8 H, Lymph % (Auto) 15.5 L, [place] % (Auto) 0.5, Eos % (Auto) 5.7 H, Baso % (Auto) 0.5, Absolute Neuts (auto) 1.5 L, Absolute Lymphs (auto) 0.30 L, Nucleated RBC % 0, Differential Comment SEE COMMENT, Platelet Estimate ADEQUATE, RBC Morphology NORM C+C, Anisocytosis RARE, Sodium 139, Potassium 4.5, Chloride 105, Carbon Dioxide 17.4 L, Anion Gap 17 H, BUN 31 H, Creatinine 1.69 H, Est GFR (MDRD) Non-Af 42 L, BUN/Creatinine Ratio 18.2, Glucose 139 H, Hemoglobin A1c 6.3, Calcium 9.2, Total Bilirubin 0.25, AST 24, ALT 16, Alkaline Phosphatase 85, Total Protein 7.2, Albumin 3.7, Globulin 3.4, Albumin/Globulin Ratio 1.1, Vitamin B12 1133 H, TSH 3.660 08/14/24 19:42: Serum Folate 18.20 08/14/24 21:30: Lactic Acid 4.2 H* 08/14/24 21:40: PT 15.5 H, INR 1.2, APTT 26.3 08/14/24 22:06: Urine Color Red, Urine Clarity Cloudy, Urine pH 8.0, Ur Specific [place] 1.010, Urine Protein 100 H, Urine Glucose (UA) Normal, Urine Ketones 5 H, Urine Occult Blood 250 H, Urine Nitrite Negative, Urine Bilirubin Negative, Urine Urobilinogen Normal, Ur Leukocyte Esterase 500 H, Urine RBC > 100 SEEN, Urine WBC 50-100 SEEN, Ur Squamous Epith Cells 5-10 SEEN, Amorphous Sediment 2+ PHOS, Urine Bacteria RARE, Urine Mucus 0 SEEN 08/15/24 02:55: PSA Screen < 0.02 L 08/15/24 07:35: WBC 13.0 H, RBC 3.18 L, Hgb 9.1 L, Hct 27.5 L, MCV 86.5, MCH 28.6, MCHC 33.1, RDW Std Deviation 46.3 H, RDW Coeff of Jerry 14.6, Plt Count 156, MPV 10.0, Immature Gran % (Auto) 1.300 H, Neut % (Auto) 93.8 H, Lymph % (Auto) 1.8 L, [place] % (Auto) 2.8, Eos % (Auto) 0.1, Baso % (Auto) 0.2, Absolute Neuts (auto) 12.2 H, Absolute Lymphs (auto) 0.24 L, Nucleated RBC % 0 Micro: Microbiology 08/14/24 21:40 Mucosa - Nose SARS-CoV-2, Influenza & RSV (PCR) - Final Imaging Radiology Impression Abdomen/Pelvis CT 08/14/24 21:00 IMPRESSION: 1. Mild/moderate right hydroureteronephrosis without an obstructing calculus. Underlying obstructive bladder lesion not excluded. Recommend further assessment with nonemergent CT urogram and/or direct visualization. 2. Underdistended bladder with diffuse wall thickening and mild perivesicular fat stranding. Correlate for possible cystitis. Suprapubic catheter in place. 3. Additional chronic findings as above. One or more dose reduction techniques were used (e.g., Automated exposure control, adjustment of the mA and/or kV according to patient size, use of iterative reconstruction technique). Reading Location: [facility] Chest X-Ray 08/14/24 21:29 IMPRESSION: No focal airspace abnormality. Reading Location: NO Charges/Coding Procedures Hospitalists Procedures: 29725 Critical Care 1st Hr
[2024-08-15 08:12] LABS: Anion Gap 13 (5-15); BUN 32 mg/dL (4-19); BUN/Creat Ratio 16.1 RATIO (10-20); Calcium,Total 7.4 mg/dL (7.6-11.0); Carbon Dioxide 16.2 mmol/L (21.0-32.0); Chloride 110 mmol/L (98-108); Creatinine, Serum 1.98 mg/dL (0.70-1.20); EST Glomerular Filtration Rate 34 (>60); Estimated Creatinine Clearance 35.03 ml/min (50-250); Glucose 130 mg/dL (70-99); Potassium 4.6 mmol/L (3.3-5.1); Sodium Level 139 mmol/L (133-145)
[2024-08-15 08:22] LABS: Lactic Acid 3.5 mmol/L (0.0-2.0)
--- NOTE | 2024-08-15 08:47 | CON.PCM.UR_ITS ---
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 For now I do not plan to do any intervention for the hydronephrosis we will just watch this. And see how he does. He does has a suprapubic catheter this was just changed my office not that long ago I do not think need to be changed currently patient understands that with a suprapubic catheter is a higher risk for having UTIs etc. but given the fact that he had severe leakage of urine and poor bladder control and no control of his bladder after radical prostatectomy done at the [facility] and after radiation done at the [facility] he is suffered with significant incontinence and is ended up with a suprapubic catheter which we changed every month so for now disconnect continue to change the catheter every month as planned I will watch him and see what happens but do not plan to do any intervention for the hydronephrosis since it appears to be chronic. [facility] Medical History Hearing loss, left Hearing loss, right Anxiety Depression Chronic indwelling Worthy catheter TIA (transient ischemic attack) Chronic radiation cystitis Worthy catheter in place Wears glasses Cancer Arthritis Non-smoker History of pain when walking History of edema Hypertension Prostate cancer Blood in urine Home Medications ?Medication ?Instructions ?Recorded ?Last Taken ?Type amlodipine 10 mg tablet 10 mg PO DAILY BLOOD PRESSUR E 12/08/18 01/13/24 History lisinopril 40 mg tablet 40 mg PO BID BLOOD PRESSURE 12/08/18 01/13/24 History terazosin 5 mg capsule 5 mg PO QPM BLOOD PRESSURE 0 12/08/18 01/13/24 History multivit,Ca,min-iron 8 mg-folic 1 tab PO DAILY SUPPLEM ENT 11/04/23 01/13/24 History acid 200 mcg-lycopene 600 mcg tablet (A Thru Z Men's Ultimate) Allergy/AdvReac Type Severity Reaction Status Date / Time losartan Allergy Mild Rash Verified 08/14/24 19:22 Sulfa (Sulfonamide Allergy Hives Verified 08/14/24 19:22 Antibiotics) atenolol AdvReac Mild WEAKNESS Verified 08/14/24 19:22 hydrochlorothiazide AdvReac Mild UNKNOWN Verified 08/14/24 19:22 indomethacin (From Indocin) AdvReac Mild GI upset Verified 08/14/24 19:22 Surgical History History of left knee replacement Hx of radical prostatectomy Hx of cystoscopy Hx of colonoscopy Social History household members: spouse housing: house Smoking Status: Never smoker Lab / Micro Data 08/15/24 07:35 08/15/24 07:35 Labs: Laboratory Results - last 24 hr 08/14/24 19:40: WBC 1.9 L, RBC 4.23 L, Hgb 12.0 L, Hct 36.1 L, MCV 85.3, MCH 28.4, MCHC 33.2, RDW Std Deviation 43.3, RDW Coeff of Jerry 14.0, Plt Count 229, MPV 9.6, Immature Gran % (Auto) 1.000 H, Neut % (Auto) 76.8 H, Lymph % (Auto) 15.5 L, [place] % (Auto) 0.5, Eos % (Auto) 5.7 H, Baso % (Auto) 0.5, Absolute Neuts (auto) 1.5 L, Absolute Lymphs (auto) 0.30 L, Nucleated RBC % 0, Differential Comment SEE COMMENT, Platelet Estimate ADEQUATE, RBC Morphology NORM C+C, Anisocytosis RARE, Sodium 139, Potassium 4.5, Chloride 105, Carbon Dioxide 17.4 L, Anion Gap 17 H, BUN 31 H, Creatinine 1.69 H, Est GFR (MDRD) Non-Af 42 L, BUN/Creatinine Ratio 18.2, Glucose 139 H, Hemoglobin A1c 6.3, Calcium 9.2, Total Bilirubin 0.25, AST 24, ALT 16, Alkaline Phosphatase 85, Total Protein 7.2, Albumin 3.7, Globulin 3.4, Albumin/Globulin Ratio 1.1, Vitamin B12 1133 H, TSH 3.660 08/14/24 19:42: Serum Folate 18.20 08/14/24 21:30: Lactic Acid 4.2 H* 08/14/24 21:40: PT 15.5 H, INR 1.2, APTT 26.3 08/14/24 22:06: Urine Color Red, Urine Clarity Cloudy, Urine pH 8.0, Ur Specific [place] 1.010, Urine Protein 100 H, Urine Glucose (UA) Normal, Urine Ketones 5 H , Urine Occult Blood 250 H, Urine Nitrite Negative, Urine Bilirubin Negative, Urine Urobilinogen Normal, Ur Leukocyte Esterase 500 H, Urine RBC > 100 SEEN, Urine WBC 50-100 SEEN, Ur Squamous Epith Cells 5-10 SEEN, Amorphous Sediment 2+ PHOS, Urine Bacteria RARE, Urine Mucus 0 SEEN 08/15/24 02:55: PSA Screen < 0.02 L 08/15/24 07:35: WBC 13.0 H, RBC 3.18 L, Hgb 9.1 L, Hct 27.5 L, MCV 86.5, MCH 28.6, MCHC 33.1, RDW Std Deviation 46.3 H, RDW Coeff of Jerry 14.6, Plt Count 156, MPV 10.0, Immature Gran % (Auto) 1.300 H, Neut % (Auto) 93.8 H, Lymph % (Auto) 1.8 L, [place] % (Auto) 2.8, Eos % (Auto) 0.1, Baso % (Auto) 0.2, Absolute Neuts (auto) 12.2 H, Absolute Lymphs (auto) 0.24 L, Nucleated RBC % 0, Differential Comment , Sodium 139, Potassium 4.6, Chloride 110 H, Carbon Dioxide 16.2 L, Anion Gap 13, BUN 32 H, Creatinine 1.98 H, Estim Creat Clear Calc 35.03 L, Est GFR (MDRD) Non-Af 34 L, BUN/Creatinine Ratio 16.1, Glucose 130 H, Lactic Acid 3.5 H*, Calcium 7.4 L Micro: Microbiology 08/14/24 21:40 Mucosa - Nose SARS-CoV-2, Influenza & RSV (PCR) - Final Imaging Radiology Impression Abdomen/Pelvis CT 08/14/24 21:00 IMPRESSION: 1. Mild/moderate right hydroureteronephrosis without an obstructing calculus. Underlying obstructive bladder lesion not excluded. Recommend further assessment with nonemergent CT urogram and/or direct visualization. 2. Underdistended bladder with diffuse wall thickening and mild perivesicular fat stranding. Correlate for possible cystitis. Suprapubic catheter in place. 3. Additional chronic findings as above. One or more dose reduction techniques were used (e.g., Automated exposure control, adjustment of the mA and/or kV according to patient size, use of iterative reconstruction technique). Reading Location: [facility] Chest X-Ray 08/14/24 21:29 IMPRESSION: No focal airspace abnormality. Reading Location[facility]
[2024-08-15] MEDS: Midodrine HCl 5 MG Tablet 10 MG PO ×3 (09:17→16:53)
[2024-08-15] MEDS: Ascorbic Acid 500 MG Tablet 1000 MG PO ×2 (09:17→16:53)
[2024-08-15] MEDS: Lactobacillis Acidophilus 1 CAP PO ×4 (09:17→20:48)
[2024-08-15] MEDS: Zinc Sulfate 50 mg zinc (220 mg) ORAL capsule PO (09:18)
[2024-08-15] MEDS: Cholecalciferol (Vit D3) 125 MCG CAPSULE (5,000 UNITS) PO (09:18)
[2024-08-15] MEDS: Norepinephrine 8 MG in 0.9% Normal Saline (250mL Bag) 242 ML 28.1 MG CONT INF (12:11)
[2024-08-15] MEDS: 0.9% Saline Lock 10 ML Syringe IV (12:12)
[2024-08-15] MEDS: Pantoprazole Sodium 40 MG in 0.9% Normal Saline (100mL MB+) 100 ML 330 MG IV (12:12)
--- NOTE | 2024-08-15 13:33 | CASEMGMT ---
RN CM Face to Face with patient for initial transition planning/care coordination assessment. RN CM introduced self and role at [facility]. Patient lying in bed, alert and oriented. Patient willing to participate in assessment and is able to answer all questions appropriately. Care providers, pharmacy, and demographics verified. Strata: 3 PCP: Guille Specialists: Darshana, urologist [facility]erred Pharmacy: [facility] Insurance: MCR, [employer] Prescription Benefit: yes Living Will/HPOA: yes, Susi Milan LNOK: Living Arrangements: Patient lives with in a single story home with 1 step and grab bar to enter the home. Patient states he is independent at home. Transportation: self, [place], Son DME/HHC: Patient has cane, walker, shower chair, and grab bars at home. No previous SNF. Patient has had [facility] in the past. Patient wishes to discharge home, denies need for home health at this time. Patient states he has no further needs or concerns at this time. CM to follow for discharge planning needs that may arise. Disposition Plan: Patient to discharge home with family support and follow-up plans in place. Quin PUCKETT, RN, CM
--- NOTE | 2024-08-15 14:28 | OP.PCM_ITS ---
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 Informed consent was obtained and time-out was completed. Hands were sanitized. The patient was positioned supine with left arm at 90 degrees. The patient's upper arm vasculature was assessed using ultrasound. Patency of the left basilic vein was confirmed, and the vein was externally marked. An external measurement was obtained of 48 cm. External leads were applied to the patient's right upper chest and laterally and inferior of the umbilicus on the mid axillary line. Cap, mask, and prep gloves were donned. The underdrape was placed under the patient's arm. The site was prepped with chlorhexidine, and tourniquet was loosely applied. Prep gloves were discarded, and hands were sanitized. The sterile kit was opened with additional supplies dropped in. Sterile gown and gl oves were donned, and the patient was draped. The sterile kit was assembled with needle, introducer, needless connectors, and each catheter lumen flushed with sterile normal saline. The marked site of insertion was anesthetized with 1% lidocaine from the kit. Patient tolerated well. The left basilic vein was then accessed using ultrasound guidance and guidewire was inserted to safety james. The tourniquet was released. The access needle was removed, while securing the guidewire in place. The introducer sheath and dilator was slid over the guidewire. Patient tolerated the insertion well. The dilator was removed and occlusion cap applied to the introducer. The catheter was trimmed to a length of 48 cm. Using 3CG guidance, the catheter was then inserted through the introducer sheath, slowly. There was no resistance on insertion. The catheter followed the expected course of the vessel using 3CG tracking. Maximal p-wave without deflection, confirming placement in the cavoatrial junction, was obtained at an insertion length of 48 cm, with external length at the hub of the catheter. The introducer sheath was retracted and peeled away, incrementally, while keeping the catheter secured. The stylet was removed. A flushed needleless connector was attached to each catheter lumen. Aspiration of each lumen was performed to remove any air and confirm blood return. Blood return was verified and each lumen was flushed with 10 ml of sterile normal saline in a pulsatile fashion. Then each lumen was clamped prior to disconnecting the flush syringe. Total sterile flushes used for the insertion was (4) 10 ml syringes, (2) from the kit. Finally, the insertion site was cleaned with chlorhexidine, and the catheter was secured using a StatLock. The site was covered with a Tegaderm CHG Dressing and disinfecting caps were applied. Baseline arm circumference was obtained at the insertion site and measured 32 cm. The patient was provided with a patient education handout on PICC line care of infection prevention, heavy lifting restriction, maintaining mobility, and watching for any signs of infection. Primary RN aware that the PICC line is ready for use. Procedure was proctored by [employer] sales representative. A first attempt for PICC insertion was the right brachial vein. It was assessed and accessed; however, I was unable to thread the guidewire. The procedure was aborted. Surgical Findings: N/A Complications Complications: No
[2024-08-15] MEDS: Enoxaparin 40 MG/0.4 ML Syringe SC (16:52)
[2024-08-15] MEDS: Norepinephrine 8 MG in 0.9% Normal Saline (250mL Bag) 242 ML 18.8 MG CONT INF (22:03)
[2024-08-16] VITALS (20 sets, daily range): BP systolic 96–122; BP diastolic 58–84; PULSE 69–98; RESP 18–25; TEMP 36.6–37.1; O2SAT 91–99; BMI 29.9
[2024-08-16 03:41] LABS: Absolute Lymphocyte Count 0.47 X10^3/uL (0.83-4.51); Absolute Neutrophil Count 12.1 X10^3/uL (2.0-7.7); Basophil# 0.06 X10^3/uL; Basophil% 0.4 % (0-1); Eosinophil# 0.31 X10^3/uL; Eosinophils% 2.2 % (0-5); Hematocrit 27.1 % (40-54); Lymphocyte # 0.47 X10^3/ul (0.83-4.51); Lymphocyte % 3.3 % (19-41); Mean Corp Hgb Conc 33.2 g/dL (32-36); Mean Corpuscular Hgb 28.2 pg (27.0-32.0); Mean Platelet Vol. 10.8 fl (6.2-12.0); Monocyte# 0.85 X10^3/uL; Monocyte% 5.9 % (0-10); NRBC Flagged by Analyzer 0 % (0-5); Neutrophil # 12.12 X10^3/uL (2.7-7.7); POSITIVE DIFFERENTIAL YES; POSITIVE MORPHOLOGY YES; Platelet Count 154 K/mm3 (150-450); RBC Distribution Width CV 15.4 % (11.6-14.6); RBC Distribution Width SD 47.5 fl (35.1-43.9); Red Blood Count 3.19 M/mm3 (4.6-6.2); White Blood Count 14.4 K/mm3 (4.4-11.0)
[2024-08-16 03:44] LABS: Differential Indicated SCAN CRITERIA MET
[2024-08-16 04:07] LABS: Anion Gap 12 (5-15); BUN 31 mg/dL (4-19); BUN/Creat Ratio 17.4 RATIO (10-20); Calcium,Total 7.7 mg/dL (7.6-11.0); Carbon Dioxide 16.2 mmol/L (21.0-32.0); Chloride 108 mmol/L (98-108); EST Glomerular Filtration Rate 39 (>60); Estimated Creatinine Clearance 39.08 ml/min (50-250); Glucose 89 mg/dL (70-99); Potassium 4.1 mmol/L (3.3-5.1); Sodium Level 137 mmol/L (133-145)
[2024-08-16 04:48] LABS: Platelet Estimate ADEQUATE (ADEQ); Red Cell Morphology NORM C+C NORMAL (NORM C&C); Vacuolated Cells 2+
[2024-08-16] MEDS: 0.9% Saline Lock 10 ML Syringe IV (05:28)
[2024-08-16] MEDS: Piperacil/Tazobactam 3.375 GM in 0.9% Normal Saline (50mL MB+) 50 ML IV ×3 (05:29→20:27)
--- NOTE | 2024-08-16 07:50 | PCM.PN.INT ---
Assessment & Plan Assessment/Plan (1) Septic shock: PLAN: Plan RECOMMENDATIONS: 1. Continue empiric antimicrobial therapy. Narrow antimicrobials once sensitivities are known. 2. Continue appropriate DVT prophylaxis. 3. Encourage incentive spirometer use and mobilize patient as tolerated. 4. The patient is medically stable for transfer out of the intensive care unit. IMPRESSIONS: 1. Gram-negative septic shock Improved. The patient presented to the hospital with sepsis due to probable urinary tract source of infection with acute sepsis related organ dysfunction as evidenced by lactic acidemia and fluid refractory hypotension, requiring vasopressor support. With supportive care, including supplemental fluid hydration and antimicrobial therapy, the patient has been weaned from vasopressor support and remains hemodynamically stable. Plan to continue antibiotics, pending finalized cultures and sensitivities. Urology is following without plans for any form of intervention. 2. Acute on chronic kidney disease Most likely prerenal in etiology in the setting of #1. Continue to monitor urine output for now. No current indication for renal replacement therapy. 3. History of prostate cancer/chronic urinary retention with suprapubic catheter/hypertension/depression Complicates care, management, recovery and prognosis. Continue supportive measures as noted above. Continue to hold home antihypertensives for now. This note was generated with [employer] dictation software. It may contain incorrect words, spelling, and punctuation that were not noted in checking the note before signing. Subjective Subjective The patient was seen and examined at the bedside this morning. Events from the last 24 hours have been reviewed. The patient is currently afebrile, hemodynamically stable and maintaining appropriate oxygen saturations on room air. The patient was weaned off of Levophed completely overnight. The patient is documented to be overall net +4.3 L for the hospitalization. White blood cell count is elevated at 14,000. Hemoglobin and platelet count are stable. Creatinine is mildly improved at 1.8. Objective Data Objective Data The patient's most recent lab work, culture data and imaging studies have all been personally reviewed. Preliminary blood culture on August 14 was positive for gram-negative rods. Urine culture is also demonstrating growth of a gram-negative aziza. Vital Signs: Vital Signs Temp Pulse Resp BP Pulse Ox O2 Del Method O2 Flow Rate 98.3 F 84 18 108/66 94 Room Air 1 08/16/24 04:00 08/16/24 07:00 08/16/24 07:00 08/16/24 07:00 08/16/24 07:00 08/16/24 07:00 08/15/24 14:00 Oxygen Flow Rate (L/min) 1 Oxygen Delivery Method Room Air Weight: 202 lb 6.15 oz Body Mass Index (BMI) 29.9 Intake & Output: Intake and Output for Last 24 Hours 08/14/24 08/15/24 08/16/24 23:59 23:59 23:59 Intake Total 2049 3635.83 / 3654.63 329.90 / 329.90 Output Total 1250 / 1250 475 / 475 Balance 2049 2385.83 / 2404.63 -145.10 / -145.10 Lab / Micro Data Attestation: I reviewed the patient's lab results. 08/16/24 03:22 08/16/24 03:22 Labs: Laboratory Results - last 24 hr 08/15/24 07:35: Differential Comment , Sodium 139, Potassium 4.6, Chloride 110 H, Carbon Dioxide 16.2 L, Anion Gap 13, BUN 32 H, Creatinine 1.98 H, Estim Creat Clear Calc 35.03 L, Est GFR (MDRD) Non-Af 34 L, BUN/Creatinine Ratio 16.1, Glucose 130 H, Lactic Acid 3.5 H*, Calcium 7.4 L 08/16/24 03:22: WBC 14.4 H, RBC 3.19 L, Hgb 9.0 L, Hct 27.1 L, MCV 85.0, MCH 28.2, MCHC 33.2, RDW Std Deviation 47.5 H, RDW Coeff of Jerry 15.4 H, Plt Count 154, MPV 10.8, Immature Gran % (Auto) 4.200 H, Neut % (Auto) 84.0 H, Lymph % (Auto) 3.3 L, Creek % (Auto) 5.9, Eos % (Auto) 2.2, Baso % (Auto) 0.4, Absolute Neuts (auto) 12.1 H, Absolute Lymphs (auto) 0.47 L, Nucleated RBC % 0, Differential Comment , Toxic Vacuolation 2+, Platelet Estimate ADEQUATE, RBC Morphology NORM C+C, Sodium 137, Potassium 4.1, Chloride 108, Carbon Dioxide 16.2 L, Anion Gap 12, BUN 31 H, Creatinine 1.80 H, Estim Creat Clear Calc 39.08 L, Est GFR (MDRD) Non-Af 39 L, BUN/Creatinine Ratio 17.4, Glucose 89, Calcium 7.7 Micro: Microbiology 08/14/24 21:40 Blood Culture (Wb) - Arm Left Blood Culture - Preliminary 08/14/24 22:06 Blood Culture (Wb) - Anticubital Left Blood Culture - Preliminary 08/14/24 22:06 Urine Catheter - Worthy Urine Culture - Preliminary Gram negative aziza 08/14/24 21:40 Mucosa - Nose SARS-CoV-2, Influenza & RSV (PCR) - Final Physical Exam Const alert, oriented x3 and no apparent distress Constitutional Narrative: Sitting in bedside recliner. General Appearance: cooperative HEENT normocephalic and head/scalp atraumatic Eyes PERRL, EOMs intact bilaterally and conjunctivae normal Neck supple General: trachea midline Chest inspection of chest normal Resp normal respiratory effort Auscultation: Negative for rales, rhonchi or wheezes Cardio regular rate and regular rhythm GI Negative for soft to palpation or non-tender Narrative: Suprapubic catheter in place Extremity no clubbing, cyanosis or edema Skin no rashes or lesions noted Neuro CN's II-XII intact bilaterally, moves all extremities and no focal motor deficits Psych cooperative and affect normal Charges/Coding Visit Charges Inpatient E&M: 91903 Subs Hosp L3
[2024-08-16] MEDS: Midodrine HCl 5 MG Tablet 10 MG PO ×3 (07:52→17:05)
[2024-08-16] MEDS: Zinc Sulfate 50 mg zinc (220 mg) ORAL capsule PO (07:52)
[2024-08-16] MEDS: Cholecalciferol (Vit D3) 125 MCG CAPSULE (5,000 UNITS) PO (07:52)
[2024-08-16] MEDS: Lactobacillis Acidophilus 1 CAP PO ×3 (07:52→20:26)
[2024-08-16] MEDS: Ascorbic Acid 500 MG Tablet 1000 MG PO ×2 (07:52→17:05)
[2024-08-16] MEDS: Enoxaparin 40 MG/0.4 ML Syringe SC (07:53)
--- NOTE | 2024-08-16 07:54 | PN.HOSP_ITS ---
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) Bladder disorder, unspecified (08/14/24) Urinary tract infection, site not specified (08/14/24) Unspecified abdominal pain (08/14/24) Hematuria, unspecified (08/14/24) Severe sepsis with septic shock (08/14/24) Infection and inflammatory reaction due to cystostomy catheter, initial encounter (08/14/24) Personal history of malignant neoplasm of prostate (08/14/24) 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83 / 3654.63 329.90 / 329.90 Output Total 1250 / 1250 475 / 475 Balance 2049 2385.83 / 2404.63 -145.10 / -145.10 Lab / Micro Data 08/16/24 03:22 08/16/24 03:22 Labs: Laboratory Results - last 24 hr 08/15/24 07:35: Differential Comment , Sodium 139, Potassium 4.6, Chloride 110 H , Carbon Dioxide 16.2 L, Anion Gap 13, BUN 32 H, Creatinine 1.98 H, Estim Creat Clear Calc 35.03 L, Est GFR (MDRD) Non-Af 34 L, BUN/Creatinine Ratio 16.1, G lucose 130 H, Lactic Acid 3.5 H*, Calcium 7.4 L 08/16/24 03:22: WBC 14.4 H, RBC 3.19 L, Hgb 9.0 L, Hct 27.1 L, MCV 85.0, MCH 28.2, MCHC 33.2, RDW Std Deviation 47.5 H, RDW Coeff of Jerry 15.4 H, Plt Count 154, MPV 10.8, Immature Gran % (Auto) 4.200 H, Neut % (Auto) 84.0 H, Lymph % (Auto) 3.3 L, Blaine % (Auto) 5.9, Eos % (Auto) 2.2, Baso % (Auto) 0.4, Absolute Neuts (auto) 12.1 H, Absolute Lymphs (auto) 0.47 L, Nucleated RBC % 0, Differential Comment , Toxic Vacuolation 2+, Platelet Estimate ADEQUATE, RBC Morphology NORM C+C, Sodium 137, Potassium 4.1, Chloride 108, Carbon Dioxide 16.2 L, Anion Gap 12, BUN 31 H, Creatinine 1.80 H, Estim Creat Clear Calc 39.08 L, Est GFR (MDRD) Non-Af 39 L, BUN/Creatinine Ratio 17.4, Glucose 89, Calcium 7.7 Micro: Microbiology 08/14/24 21:40 Blood Culture (Wb) - Arm Left Blood Culture - Preliminary 08/14/24 22:06 Blood Culture (Wb) - Anticubital Left Blood Culture - Preliminary 08/14/24 22:06 Urine Catheter - Worthy Urine Culture - Preliminary Gram negative aziza 08/14/24 21:40 Mucosa - Nose SARS-CoV-2, Influenza & RSV (PCR) - Final Physical Exam Narrative General: Alert, no apparent distress HEENT: Atraumatic, normocephalic Eyes: Anicteric, normal conjunctiva, extraocular movements grossly intact Neck: Supple Respiratory: Normal respiratory effort, no significant rhonchi or wheezes Cardiovascular: Regular rate GI: Soft, nontender, nondistended Extremities: No edema Musculoskeletal: Moving all extremities Neuro: No overt focal neurological deficits Skin: No rashes appreciated Psych: Cooperative Assessment & Plan Assessment/Plan (1) Sepsis: QUALIFIERS: Acute renal failure type: unspecified Sepsis acute organ dysfunction status: with acute organ dysfunction Sepsis type: sepsis due to unspecified organism Severe sepsis acute organ dysfunction type: acute renal failure Severe sepsis shock status: with septic shock Qualified Code(s): A41.9 - Sepsis, unspecified organism; R65.21 - Severe sepsis with septic shock; N17.9 - Acute kidney failure, unspecified (2) UTI (urinary tract infection) due to urinary indwelling catheter: QUALIFIERS: Encounter type: initial encounter Indwelling urinary catheter type: cystostomy catheter Qualified Code(s): T83.510A - Infection and inflammatory reaction due to cystostomy catheter, initial encounter; N39.0 - Urinary tract infection, site not specified PLAN: Plan # Septic shock suspect secondary to UTI in the setting of chronic suprapubic catheter -Patient febrile in the ED with temp of 102.9, tachycardic with heart rate in 140s, blood pressure in the ED down to 75/50 with a MAP of 58 with respiratory rate of 38, patient's O2 sat also decreased necessitating 2 L of nasal cannula in place, patient with bicarb of 17.4 in the ED with gap of 17, lactic acid of 4.2 and increasing creatinine up to 1.69 with baseline seemingly closer to 1.3 -UA suggestive of UTI -CT scan also suggestive of possible cystitis -Blood and urine cultures ordered -Ucx +, organism and sensitivity data pending, blood cultures 2 out of 2 also positive for gram-negative rods -Patient started on Zosyn -Patient received 3 L IV fluid and has remained hypotensive so norepinephrine ordered -Patient presently admitted in the ICU, dynamics ax developer consulted -08/16: Urine culture and sensitivity data pending, blood cultures positive, also pending sensitivities, patient remains on Zosyn, patient off of norepinephrine and is significantly improving, changed to PCU status # Creatinine elevation from baseline in setting of mild to moderate right hydroureteronephrosis -Patient's creatinine 1.69, baseline seems closer to 1.3 -CT scan in the ED showed mild/moderate right hydroureteronephrosis without obstructing calculus, underlying obstructive bladder lesion not excluded and it was recommended further assessment with nonemergent CT urogram and/or direct visualization -Patient has previously seen Dr. Gilliland, Dr. Gilliland consulted but it is suspected this is chronic and there is no current plan for intervention, patient to be monitored -08/16: Creatinine has begun to downtrend, today is 1.8 #Hypertension -Patient with septic shock, hold amlodipine, lisinopril, terazosin -08/16: Continue to hold medications, patient off Levophed, as patient improves can add back medications as tolerated Chronic medical problems: # History of prostate cancer -Status post prostate removal and radiation therapy through [facility] with subsequent bladder neck contracture and ultimately suprapubic catheter -PSA undetectable #DVT ppx: SCDs Juany Souza MD Charges/Coding Visit Charges Inpatient E&M: 52642 Subs Hosp L2
[2024-08-16] MEDS: FLU VACCINE **HIGH DOSE** TV 24-25 180 MCG/0.5 ML SYRINGE IM (09:54)
[2024-08-16] MEDS: Pantoprazole Sodium 40 MG Tablet PO (09:54)
[2024-08-17] VITALS (7 sets, daily range): BP systolic 116–125; BP diastolic 69–74; PULSE 70–83; RESP 18–22; TEMP 36.6–37; O2SAT 93–97; BMI 29.6
[2024-08-17 03:14] LABS: Absolute Lymphocyte Count 0.57 X10^3/uL (0.83-4.51); Basophil# 0.05 X10^3/uL; Basophil% 0.4 % (0-1); Eosinophil# 0.51 X10^3/uL; Eosinophils% 3.9 % (0-5); Hematocrit 28.8 % (40-54); Hemoglobin 9.5 g/dL (13.0-16.5); Lymphocyte # 0.57 X10^3/ul (0.83-4.51); Lymphocyte % 4.4 % (19-41); Mean Corpuscular Hgb 28.1 pg (27.0-32.0); Mean Corpuscular Volume 85.2 fL (80-94); Mean Platelet Vol. 10.8 fl (6.2-12.0); Monocyte# 0.75 X10^3/uL; Monocyte% 5.8 % (0-10); NRBC Flagged by Analyzer 0 % (0-5); Neutrophil # 10.95 X10^3/uL (2.7-7.7); POSITIVE DIFFERENTIAL YES; POSITIVE MORPHOLOGY YES; Platelet Count 181 K/mm3 (150-450); RBC Distribution Width CV 15.2 % (11.6-14.6); RBC Distribution Width SD 47.2 fl (35.1-43.9); Red Blood Count 3.38 M/mm3 (4.6-6.2)
[2024-08-17 03:20] LABS: Differential Indicated SCAN CRITERIA MET
[2024-08-17 03:43] LABS: Anion Gap 10 (5-15); BUN 24 mg/dL (4-19); BUN/Creat Ratio 16.3 RATIO (10-20); Calcium,Total 7.9 mg/dL (7.6-11.0); Carbon Dioxide 16.9 mmol/L (21.0-32.0); Chloride 109 mmol/L (98-108); Creatinine, Serum 1.46 mg/dL (0.70-1.20); EST Glomerular Filtration Rate 50 (>60); Estimated Creatinine Clearance 48.18 ml/min (50-250); Glucose 108 mg/dL (70-99); Potassium 3.8 mmol/L (3.3-5.1); Sodium Level 137 mmol/L (133-145)
[2024-08-17] MEDS: 0.9% Saline Lock 10 ML Syringe IV ×2 (05:09→08:38)
[2024-08-17] MEDS: Piperacil/Tazobactam 3.375 GM in 0.9% Normal Saline (50mL MB+) 50 ML IV (05:09)
--- NOTE | 2024-08-17 07:01 | PN.HOSP_ITS ---
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) Bladder disorder, unspecified (08/14/24) Urinary tract infection, site not specified (08/14/24) Unspecified abdominal pain (08/14/24) Hematuria, unspecified (08/14/24) Severe sepsis with septic shock (08/14/24) Infection and inflammatory reaction due to cystostomy catheter, initial encounter (08/14/24) Personal history of malignant neoplasm of prostate (08/14/24) 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) Subjective Subjective Patient still quite weak but slowly getting better, has had a bowel movements was no longer constipated Objective Data Objective Data Vital Signs: Vital Signs Temp Pulse Resp BP Pulse Ox O2 Del Method O2 Flow Rate 98.6 F 72 20 H 116/74 93 Room Air 1 08/17/24 02:40 08/17/24 03:00 08/17/24 02:40 08/17/24 02:40 08/17/24 02:40 08/17/24 03:00 08/15/24 14:00 Oxygen Flow Rate (L/min) 1 Oxygen Delivery Method Room Air Weight: 90.7 kg Body Mass Index (BMI) 29.6 Intake & Output: Intake and Output for Last 24 Hours 08/15/24 08/16/24 08/17/24 23:59 23:59 23:59 Intake Total 3635.83 / 3654.63 429.90 / 429.90 50 / 50 Output Total 1250 / 1250 2175 / 2175 300 / 300 Balance 2385.83 / 2404.63 -1745.10 / -1745.10 -250 / -250 Lab / Micro Data 08/17/24 03:07 08/17/24 03:07 Labs: Laboratory Results - last 24 hr 08/17/24 03:07: WBC 13.0 H, RBC 3.38 L, Hgb 9.5 L, Hct 28.8 L, MCV 85.2, MCH 28.1, MCHC 33.0, RDW Std Deviation 47.2 H, RDW Coeff of Jerry 15.2 H, Plt Count 181, MPV 10.8, Immature Gran % (Auto) 1.500 H, Neut % (Auto) 84.0 H, Lymph % (Auto) 4.4 L, Jennings % (Auto) 5.8, Eos % (Auto) 3.9, Baso % (Auto) 0.4, Absolute Neuts (auto) 11.0 H, Absolute Lymphs (auto) 0.57 L, Nucleated RBC % 0, Sodium 137, Potassium 3.8, Chloride 109 H, Carbon Dioxide 16.9 L, Anion Gap 10, BUN 24 H, Creatinine 1.46 H, Estim Creat Clear Calc 48.18 L, Est GFR (MDRD) Non-Af 50 L , BUN/Creatinine Ratio 16.3, Glucose 108 H, Calcium 7.9 Micro: Microbiology 08/14/24 22:06 Urine Catheter - Worthy Urine Culture - Preliminary Gram negative aziza 08/14/24 22:06 Blood Culture (Wb) - Anticubital Left Blood Culture - Preliminary Gram negative aziza 08/14/24 21:40 Blood Culture (Wb) - Arm Left Blood Culture - Preliminary Gram negative aziza 08/14/24 21:40 Mucosa - Nose SARS-CoV-2, Influenza & RSV (PCR) - Final Physical Exam Narrative General: Alert, no apparent distress HEENT: Atraumatic, normocephalic Eyes: Anicteric, normal conjunctiva, extraocular movements grossly intact Neck: Supple Respiratory: Normal respiratory effort, no significant rhonchi or wheezes Cardiovascular: Regular rate GI: Soft, nontender, nondistended Extremities: No edema Musculoskeletal: Moving all extremities Neuro: No overt focal neurological deficits Skin: No rashes appreciated Psych: Cooperative Assessment & Plan Assessment/Plan (1) Sepsis: QUALIFIERS: Acute renal failure type: unspecified Sepsis acute organ dysfunction status: with acute organ dysfunction Sepsis type: sepsis due to unspecified organism Severe sepsis acute organ dysfunction type: acute renal failure Severe sepsis shock status: with septic shock Qualified Code(s): A41.9 - Sepsis, unspecified organism; R65.21 - Severe sepsis with septic shock; N17.9 - Acute kidney failure, unspecified (2) UTI (urinary tract infection) due to urinary indwelling catheter: QUALIFIERS: Encounter type: initial encounter Indwelling urinary catheter type: cystostomy catheter Qualified Code(s): T83.510A - Infection and inflammatory reaction due to cystostomy catheter, initial encounter; N39.0 - Urinary tract infection, site not specified PLAN: Plan # Septic shock gram-negative UTI in the setting of chronic suprapubic catheter- blood culture growing Providencia rettgeri -Patient febrile in the ED with temp of 102.9, tachycardic with heart rate in 140s, blood pressure in the ED down to 75/50 with a MAP of 58 with respiratory rate of 38, patient's O2 sat also decreased necessitating 2 L of nasal cannula in place, patient with bicarb of 17.4 in the ED with gap of 17, lactic acid of 4.2 and increasing creatinine up to 1.69 with baseline seemingly closer to 1.3 -UA suggestive of UTI -CT scan also suggestive of possible cystitis -Blood and urine cultures ordered -Ucx +, organism and sensitivity data pending, blood cultures 2 out of 2 also positive for gram-negative rods -Patient started on Zosyn -Patient received 3 L IV fluid and has remained hypotensive so norepinephrine ordered -Patient presently admitted in the ICU, ad clerk consulted -08/16: Urine culture and sensitivity data pending, blood cultures positive, also pending sensitivities, patient remains on Zosyn, patient off of norepinephrine and is significantly improving, changed to PCU status -08/17: Patient growing Providencia rettgeri and blood culture, ID consulted, patient seem to improve on Zosyn however sensitivities revealed this is resistant to Zosyn, will switch to Levaquin while awaiting further ID input # Creatinine elevation from baseline in setting of mild to moderate right hydroureteronephrosis -Patient's creatinine 1.69, baseline seems closer to 1.3 -CT scan in the ED showed mild/moderate right hydroureteronephrosis without obstructing calculus, underlying obstructive bladder lesion not excluded and it was recommended further assessment with nonemergent CT urogram and/or direct visualization -Patient has previously seen Dr. Gilliland, Dr. Gilliland consulted but it is suspected this is chronic and there is no current plan for intervention, patient to be monitored -08/16: Creatinine has begun to downtrend, today is 1.8 -08/17: Further improving now that infection/septic shock improving, creatinine 1.46 today. Patient will need to follow-up with urology on outpatient basis for his chronic Worthy but no acute intervention planned #Hypertension -Patient with septic shock, hold amlodipine, lisinopril, terazosin -08/16: Continue to hold medications, patient off Levophed, as patient improves can add back medications as tolerated -08/17: Patient still on midodrine, will DC given patient's stable blood pressure, add back blood pressure medications as tolerated but will continue hold at this time, most recent blood pressure 116/74 Chronic medical problems: # History of prostate cancer -Status post prostate removal and radiation therapy through [facility] with subsequent bladder neck contracture and ultimately suprapubic catheter -PSA undetectable #DVT ppx: SCDs Juany Souza MD Charges/Coding Visit Charges Inpatient E&M: 25787 Subs Hosp L2
--- NOTE | 2024-08-17 08:08 | PN.CC_ITS ---
Assessment & Plan Assessment/Plan (1) Septic shock: PLAN: Plan RECOMMENDATIONS: 1. Continue empiric antimicrobial therapy. Narrow antimicrobials once sensitivities are known. 2. Continue appropriate DVT prophylaxis. 3. Encourage incentive spirometer use and mobilize patient as tolerated. 4. Will sign off from a pulmonary/critical care perspective. Please call with any additional questions. IMPRESSIONS: 1. Gram-negative septic shock Improved. The patient presented to the hospital with sepsis due to probable urinary tract source of infection with acute sepsis related organ dysfunction as evidenced by lactic acidemia and fluid refractory hypotension, requiring vasopressor support. With supportive care, including supplemental fluid hydration and antimicrobial therapy, the patient has been weaned from vasopressor support and remains hemodynamically stable. Plan to continue antibiotics, pending finalized cultures and sensitivities. Urology is following without plans for any form of intervention. 2. Acute on chronic kidney disease Improving. Most likely prerenal in etiology in the setting of #1. Continue to monitor urine output for now. No current indication for renal replacement therapy. 3. History of prostate cancer/chronic urinary retention with suprapubic catheter/hypertension/depression Complicates care, management, recovery and prognosis. Continue supportive measures as noted above. Continue to hold home antihypertensives for now. This note was generated with [employer] dictation software. It may contain incorrect words, spelling, and punctuation that were not noted in checking the note before signing. Subjective Subjective The patient was seen and examined at the bedside this morning. Events from the last 24 hours have been reviewed. The patient is currently afebrile, hemodynamically stable and maintaining appropriate oxygen saturations on room air. No overnight events were noted. White blood cell count remains stable at 13,000. Creatinine has improved to 1.46. Objective Data Objective Data The patient's most recent lab work, culture data and imaging studies have all been personally reviewed. Preliminary blood culture from August 14 is demonstrating growth at Providencia. Urine culture is demonstrating growth of a gram-negative aziza. Vital Signs: Vital Signs Temp Pulse Resp BP Pulse Ox O2 Del Method O2 Flow Rate 98.6 F 72 20 H 116/74 93 Room Air 1 08/17/24 02:40 08/17/24 03:00 08/17/24 02:40 08/17/24 02:40 08/17/24 02:40 08/17/24 03:00 08/15/24 14:00 Oxygen Flow Rate (L/min) 1 Oxygen Delivery Method Room Air Weight: 199 lb 15.348 oz Body Mass Index (BMI) 29.6 Intake & Output: Intake and Output for Last 24 Hours 08/15/24 08/16/24 08/17/24 23:59 23:59 23:59 Intake Total 3635.83 / 3654.63 429.90 / 429.90 50 / 50 Output Total 1250 / 1250 2175 / 2175 300 / 300 Balance 2385.83 / 2404.63 -1745.10 / -1745.10 -250 / -250 Lab / Micro Data Attestation: I reviewed the patient's lab results. 08/17/24 03:07 08/17/24 03:07 Labs: Laboratory Results - last 24 hr 08/17/24 03:07: WBC 13.0 H, RBC 3.38 L, Hgb 9.5 L, Hct 28.8 L, MCV 85.2, MCH 28.1, MCHC 33.0, RDW Std Deviation 47.2 H, RDW Coeff of Jerry 15.2 H, Plt Count 181, MPV 10.8, Immature Gran % (Auto) 1.500 H, Neut % (Auto) 84.0 H, Lymph % (Auto) 4.4 L, Reeves % (Auto) 5.8, Eos % (Auto) 3.9, Baso % (Auto) 0.4, Absolute Neuts (auto) 11.0 H, Absolute Lymphs (auto) 0.57 L, Nucleated RBC % 0, Sodium 137, Potassium 3.8, Chloride 109 H, Carbon Dioxide 16.9 L, Anion Gap 10, BUN 24 H, Creatinine 1.46 H, Estim Creat Clear Calc 48.18 L, Est GFR (MDRD) Non-Af 50 L , BUN/Creatinine Ratio 16.3, Glucose 108 H, Calcium 7.9 Micro: Microbiology 08/14/24 21:40 Blood Culture (Wb) - Arm Left Blood Culture - Preliminary Providencia rettgeri 08/14/24 22:06 Urine Catheter - Worthy Urine Culture - Preliminary Gram negative aziza 08/14/24 22:06 Blood Culture (Wb) - Anticubital Left Blood Culture - Preliminary Gram negative aziza 08/14/24 21:40 Mucosa - Nose SARS-CoV-2, Influenza & RSV (PCR) - Final Physical Exam Const alert, oriented x3 and no apparent distress Constitutional Narrative: is present at the bedside. General Appearance: cooperative HEENT normocephalic and head/scalp atraumatic Eyes PERRL, EOMs intact bilaterally and conjunctivae normal Neck supple General: trachea midline Chest inspection of chest normal Resp normal respiratory effort Auscultation: Negative for rales, rhonchi or wheezes Cardio regular rate and regular rhythm GI Negative for soft to palpation or non-tender Narrative: Suprapubic catheter in place Extremity no clubbing, cyanosis or edema Skin no rashes or lesions noted Neuro CN's II-XII intact bilaterally, moves all extremities and no focal motor deficits Psych cooperative and affect normal Charges/Coding Visit Charges Inpatient E&M: 99363 Subs Hosp L2
[2024-08-17] MEDS: Ascorbic Acid 500 MG Tablet 1000 MG PO ×2 (08:35→17:22)
[2024-08-17] MEDS: Acetaminophen 325 MG Tablet 650 MG PO (08:37)
[2024-08-17] MEDS: Lactobacillis Acidophilus 1 CAP PO ×3 (10:25→17:22)
[2024-08-17] MEDS: Cholecalciferol (Vit D3) 125 MCG CAPSULE (5,000 UNITS) PO (10:25)
[2024-08-17] MEDS: Zinc Sulfate 50 mg zinc (220 mg) ORAL capsule PO (10:25)
[2024-08-17] MEDS: Enoxaparin 40 MG/0.4 ML Syringe SC (10:25)
[2024-08-17] MEDS: Pantoprazole Sodium 40 MG Tablet PO (10:25)
[2024-08-17] MEDS: levoFLOXacin IV 750 MG/150 ML BAG 100 MG IV (10:26)
--- NOTE | 2024-08-17 13:39 | CON.PCM.ID_ITS ---
Assessment & Plan Assessment/Plan (1) Sepsis: QUALIFIERS: Sepsis type: sepsis due to unspecified organism S epsis acute organ dysfunction status: with acute organ dysfunction Severe sepsis acute organ dysfunction type: acute renal failure Acute renal failure type: unspecified Severe sepsis shock status: with septic shock Qualified Code(s): A41.9 - Sepsis, unspecified organism; R65.21 - Severe sepsis with septic shock; N17.9 - Acute kidney failure, unspecified PLAN: Improved. Providencia bacteremia due to uti. Ucx with GNR x2 and a smaller amount of enterococcus-like. Will change to ceftriaxone and follow cxs. Will follow, thank you (2) Bacteremia due to Gram-negative bacteria: (3) UTI (urinary tract infection) due to urinary indwelling catheter: QUALIFIERS: Indwelling urinary catheter type: cystostomy catheter Encounter type: initial encounter Qualified Code(s): T83.510A - Infection and inflammatory reaction due to cystostomy catheter, initial encounter; N39.0 - Urinary tract infection, site not specified HPI Consult Data Date of Consult: 08/17/24 HPI Narrative Reason for Consultation: bacteremia HPI Narrative: BARBARA PEÑA, is a 78 M with h/o prostate cancer with radical prostatectomy, suprapubic catheter in place, presented 08/14 with acute onset R flank 10 out of 10 stabbing pain with bladder spasms. Had fever and chills with n/v at home. Came to ED, admitted, on zosyn, feeling better. Changed to levaquin this AM. Full ROS performed and neg except as noted above. PENDING SALE TO [facility] Medical History Hearing loss, left Hearing loss, right Anxiety Depression Chronic indwelling Worthy catheter TIA (transient ischemic attack) Chronic radiation cystitis Worthy catheter in place Wears glasses Cancer Arthritis Non-smoker History of pain when walking History of edema Hypertension Prostate cancer Blood in urine Home Medications ?Medication ?Instructions ?Recorded ?Last Taken ?Type amlodipine 10 mg tablet 10 mg PO DAILY BLOOD PRESSUR E 12/08/18 01/13/24 History lisinopril 40 mg tablet 40 mg PO BID BLOOD PRESSURE 12/08/18 01/13/24 History terazosin 5 mg capsule 5 mg PO QPM BLOOD PRESSURE 0 12/08/18 01/13/24 History multivit,Ca,min-iron 8 mg-folic 1 tab PO DAILY SUPPLEM ENT 11/04/23 01/13/24 History acid 200 mcg-lycopene 600 mcg tablet (A Thru [facility] [employer]) Allergy/AdvReac Type Severity Reaction Status Date / Time losartan Allergy Mild Rash Verified 08/14/24 19:22 Sulfa (Sulfonamide Allergy Hives Verified 08/14/24 19:22 Antibiotics) atenolol AdvReac Mild WEAKNESS Verified 08/14/24 19:22 hydrochlorothiazide AdvReac Mild UNKNOWN Verified 08/14/24 19:22 indomethacin (From Indocin) AdvReac Mild GI upset Verified 08/14/24 19:22 Surgical History History of left knee replacement Hx of radical prostatectomy Hx of cystoscopy Hx of colonoscopy Social History household members: spouse housing: house Smoking Status: Never smoker Physical Exam Const alert, oriented x3 and no apparent distress General Appearance: cooperative HEENT normocephalic and head/scalp atraumatic Eyes PERRL and EOMs intact bilaterally Neck supple and No nodes Resp normal air movement and clear to auscultation bilaterally Cardio regular rate and regular rhythm GI soft to palpation, non-tender and non-distended Extremity General Extremity: Negative for edema Skin no rashes or lesions noted Neuro CN's II-XII intact bilaterally Lab / Micro Data Attestation: I reviewed the patient's lab results. 08/17/24 03:07 08/17/24 03:07 Labs: Laboratory Results - last 24 hr 08/17/24 03:07: WBC 13.0 H, RBC 3.38 L, Hgb 9.5 L, Hct 28.8 L, MCV 85.2, MCH 28.1, MCHC 33.0, RDW Std Deviation 47.2 H, RDW Coeff of Ejrry 15.2 H, Plt Count 181, MPV 10.8, Immature Gran % (Auto) 1.500 H, Neut % (Auto) 84.0 H, Lymph % (Auto) 4.4 L, Dickinson % (Auto) 5.8, Eos % (Auto) 3.9, Baso % (Auto) 0.4, Absolute Neuts (auto) 11.0 H, Absolute Lymphs (auto) 0.57 L, Nucleated RBC % 0, Sodium 137, Potassium 3.8, Chloride 109 H, Carbon Dioxide 16.9 L, Anion Gap 10, BUN 24 H, Creatinine 1.46 H, Estim Creat Clear Calc 48.18 L, Est GFR (MDRD) Non-Af 50 L , BUN/Creatinine Ratio 16.3, Glucose 108 H, Calcium 7.9 Micro: Microbiology 08/14/24 22:06 Urine Catheter - Worthy Urine Culture - Preliminary Gram negative aziza Gram negative aziza#2 GPC Poss Enterococcus sp 08/14/24 21:40 Blood Culture (Wb) - Arm Left Blood Culture - Preliminary Providencia rettgeri 08/14/24 22:06 Blood Culture (Wb) - Anticubital Left Blood Culture - Preliminary Gram negative aizza
[2024-08-17] MEDS: Ceftriaxone 2 GM in 0.9% Normal Saline (50mL MB+) 50 ML IV (14:20)
[2024-08-17] MEDS: Ondansetron 4 MG/2 ML Vial IV (20:47)
[2024-08-18 00:37] VITALS: BP 123/63; PULSE 66; RESP 18; TEMP 36.8; O2SAT 98
[2024-08-18 04:40] LABS: Absolute Lymphocyte Count 0.78 X10^3/uL (0.83-4.51); Absolute Neutrophil Count 7.6 X10^3/uL (2.0-7.7); Basophil# 0.03 X10^3/uL; Basophil% 0.3 % (0-1); Eosinophil# 0.32 X10^3/uL; Eosinophils% 3.4 % (0-5); Hematocrit 27.9 % (40-54); Hemoglobin 9.5 g/dL (13.0-16.5); Lymphocyte # 0.78 X10^3/ul (0.83-4.51); Lymphocyte % 8.2 % (19-41); Mean Corp Hgb Conc 34.1 g/dL (32-36); Mean Corpuscular Hgb 28.4 pg (27.0-32.0); Mean Corpuscular Volume 83.3 fL (80-94); Mean Platelet Vol. 10.7 fl (6.2-12.0); Monocyte# 0.67 X10^3/uL; Monocyte% 7.1 % (0-10); NRBC Flagged by Analyzer 0 % (0-5); Neutrophil # 7.57 X10^3/uL (2.7-7.7); Neutrophil % 79.9 % (47-70); Platelet Count 207 K/mm3 (150-450); RBC Distribution Width CV 15.4 % (11.6-14.6); Red Blood Count 3.35 M/mm3 (4.6-6.2); White Blood Count 9.5 K/mm3 (4.4-11.0)
[2024-08-18 06:07] VITALS: BP 107/67; PULSE 67; RESP 17; TEMP 36.6; O2SAT 98
--- NOTE | 2024-08-18 07:22 | PN.HOSP_ITS ---
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) Bladder disorder, unspecified (08/14/24) Urinary tract infection, site not specified (08/14/24) Unspecified abdominal pain (08/14/24) Hematuria, unspecified (08/14/24) Severe sepsis with septic shock (08/14/24) Bacteremia (08/14/24) Infection and inflammatory reaction due to cystostomy catheter, initial encounter (08/14/24) Personal history of malignant neoplasm of prostate (08/14/24) 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) Subjective Subjective Patient overall feeling little bit better but did have some GI upset with a little bit of nausea and diarrhea, not as nauseous today but did have a loose stool earlier Objective Data Objective Data Vital Signs: Vital Signs Temp Pulse Resp BP Pulse Ox O2 Del Method O2 Flow Rate 98 F 67 17 107/67 98 Room Air 1 08/18/24 06:07 08/18/24 06:07 08/18/24 06:07 08/18/24 06:07 08/18/24 06:07 08/18/24 06:07 08/15/24 14:00 Oxygen Flow Rate (L/min) 1 Oxygen Delivery Method Room Air Weight: 90.7 kg Body Mass Index (BMI) 29.6 Intake & Output: Intake and Output for Last 24 Hours 08/16/24 08/17/24 08/18/24 23:59 23:59 23:59 Intake Total 429.90 / 429.90 646.25 / 646.25 350 / 350 Output Total 2175 / 2175 1050 / 1050 800 / 800 Balance -1745.10 / -1745.10 -403.75 / -403.75 -450 / -450 Lab / Micro Data 08/18/24 04:18 08/18/24 04:18 Labs: Laboratory Results - last 24 hr 08/18/24 04:18: WBC 9.5, RBC 3.35 L, Hgb 9.5 L, Hct 27.9 L, MCV 83.3, MCH 28.4, MCHC 34.1, RDW Std Deviation 47.0 H, RDW Coeff of Jerry 15.4 H, Plt Count 207, MPV 10.7, Immature Gran % (Auto) 1.100 H, Neut % (Auto) 79.9 H, Lymph % (Auto) 8.2 L , Beaver % (Auto) 7.1, Eos % (Auto) 3.4, Baso % (Auto) 0.3, Absolute Neuts (auto) 7.6, Absolute Lymphs (auto) 0.78 L, Nucleated RBC % 0 Micro: Microbiology 08/14/24 22:06 Urine Catheter - Worthy Urine Culture - Preliminary Gram negative aziza Gram negative aziza#2 GPC Poss Enterococcus sp 08/14/24 21:40 Blood Culture (Wb) - Arm Left Blood Culture - Preliminary Providencia rettgeri 08/14/24 22:06 Blood Culture (Wb) - Anticubital Left Blood Culture - Preliminary Gram negative aziza 08/14/24 21:40 Mucosa - Nose SARS-CoV-2, Influenza & RSV (PCR) - Final Physical Exam Narrative General: Alert, no apparent distress HEENT: Atraumatic, normocephalic Eyes: Anicteric, normal conjunctiva, extraocular movements grossly intact Neck: Supple Respiratory: Normal respiratory effort, no significant rhonchi or wheezes Cardiovascular: Regular rate GI: Soft, nontender, hyperactive bowel sounds Extremities: No edema Musculoskeletal: Moving all extremities Neuro: No overt focal neurological deficits Skin: No rashes appreciated Psych: Cooperative Assessment & Plan Assessment/Plan (1) Sepsis: QUALIFIERS: Acute renal failure type: unspecified Sepsis acute organ dysfunction status: with acute organ dysfunction Sepsis type: sepsis due to unspecified organism Severe sepsis acute organ dysfunction type: acute renal failure Severe sepsis shock status: with septic shock Qualified Code(s): A41.9 - Sepsis, unspecified organism; R65.21 - Severe sepsis with septic shock; N17.9 - Acute kidney failure, unspecified (2) UTI (urinary tract infection) due to urinary indwelling catheter: QUALIFIERS: Encounter type: initial encounter Indwelling urinary catheter type: cystostomy catheter Qualified Code(s): T83.510A - Infection and inflammatory reaction due to cystostomy catheter, initial encounter; N39.0 - Urinary tract infection, site not specified PLAN: Plan # Septic shock gram-negative UTI in the setting of chronic suprapubic catheter- blood culture growing Providencia rettgeri -Patient febrile in the ED with temp of 102.9, tachycardic with heart rate in 140s, blood pressure in the ED down to 75/50 with a MAP of 58 with respiratory rate of 38, patient's O2 sat also decreased necessitating 2 L of nasal cannula in place, patient with bicarb of 17.4 in the ED with gap of 17, lactic acid of 4.2 and increasing creatinine up to 1.69 with baseline seemingly closer to 1.3 -UA suggestive of UTI -CT scan also suggestive of possible cystitis -Blood and urine cultures ordered -Ucx +, organism and sensitivity data pending, blood cultures 2 out of 2 also positive for gram-negative rods -Patient started on Zosyn -Patient received 3 L IV fluid and has remained hypotensive so norepinephrine ordered -Patient presently admitted in the ICU, forest supervisor consulted -08/16: Urine culture and sensitivity data pending, blood cultures positive, also pending sensitivities, patient remains on Zosyn, patient off of norepinephrine and is significantly improving, changed to PCU status -08/17: Patient growing Providencia rettgeri and blood culture, ID consulted, patient seem to improve on Zosyn however sensitivities revealed this is resistant to Zosyn, will switch to Levaquin while awaiting further ID input -08/18: Blood culture with Providencia rettgeri, urine culture growing Providencia rettgeri and ?myroides, and possible enteric coccus, patient placed on Rocephin by ID, following cultures for final antibiotic plan # Creatinine elevation from baseline in setting of mild to moderate right hydroureteronephrosis -Patient's creatinine 1.69, baseline seems closer to 1.3 -CT scan in the ED showed mild/moderate right hydroureteronephrosis without obstructing calculus, underlying obstructive bladder lesion not excluded and it was recommended further assessment with nonemergent CT urogram and/or direct visualization -Patient has previously seen Dr. Gilliland, Dr. Gilliland consulted but it is suspected this is chronic and there is no current plan for intervention, patient to be monitored -08/16: Creatinine has begun to downtrend, today is 1.8 -08/17: Further improving now that infection/septic shock improving, creatinine 1.46 today. Patient will need to follow-up with urology on outpatient basis for his chronic Worthy but no acute intervention planned -08/18: Continued improvement with treatment of infection #Hypertension -Patient with septic shock, hold amlodipine, lisinopril, terazosin -08/16: Continue to hold medications, patient off Levophed, as patient improves can add back medications as tolerated -08/17: Patient still on midodrine, will DC given patient's stable blood pressure, add back blood pressure medications as tolerated but will continue hold at this time, most recent blood pressure 116/74 -08/18: Patient's blood pressure stable with midodrine discontinued but a.m. blood pressure 107/67, hold off on adding back home antihypertensives at this time # Diarrhea -08/18: Could be due to antibiotics or vitamin C or zinc but will check C. difficile and stool panel to verify no infection, if nothing identified can give patient an antidiarrheal agent Chronic medical problems: # History of prostate cancer -Status post prostate removal and radiation therapy through [facility] with subsequent bladder neck contracture and ultimately suprapubic catheter -PSA undetectable #DVT ppx: SCDs Juany Souza MD Time spent in the patient's overall evaluation,decision-making process, review of diagnostic data, adjustment of management, discussion with other providers, nursing nursing and ancillary staff involved in patient's care documentation, 36 minutes Charges/Coding Visit Charges Inpatient E&M: 73887 Subs Hosp L2
[2024-08-18 07:29] LABS: Anion Gap 11 (5-15); BUN 15 mg/dL (4-19); BUN/Creat Ratio 12.2 RATIO (10-20); Calcium,Total 8.1 mg/dL (7.6-11.0); Carbon Dioxide 17.9 mmol/L (21.0-32.0); Chloride 108 mmol/L (98-108); Creatinine, Serum 1.23 mg/dL (0.70-1.20); EST Glomerular Filtration Rate 61 (>60); Estimated Creatinine Clearance 56.87 ml/min (50-250); Glucose 102 mg/dL (70-99); Potassium 4.1 mmol/L (3.3-5.1); Sodium Level 137 mmol/L (133-145)
[2024-08-18] MEDS: Pantoprazole Sodium 40 MG Tablet PO (08:33)
[2024-08-18] MEDS: Lactobacillis Acidophilus 1 CAP PO ×4 (08:33→20:19)
[2024-08-18] MEDS: Ascorbic Acid 500 MG Tablet 1000 MG PO (08:33)
[2024-08-18] MEDS: Zinc Sulfate 50 mg zinc (220 mg) ORAL capsule PO (08:33)
[2024-08-18] MEDS: Cholecalciferol (Vit D3) 125 MCG CAPSULE (5,000 UNITS) PO (08:34)
[2024-08-18] MEDS: Enoxaparin 40 MG/0.4 ML Syringe SC (08:34)
[2024-08-18 08:35] VITALS: BP 126/75; PULSE 74; RESP 21; TEMP 36.6; O2SAT 98
[2024-08-18 08:38] VITALS: PULSE 84
[2024-08-18] MEDS: Ceftriaxone 2 GM in 0.9% Normal Saline (50mL MB+) 50 ML IV (10:00)
[2024-08-18 14:00] VITALS: BP 124/70; PULSE 78; RESP 16; TEMP 36.7; O2SAT 99
[2024-08-18 20:00] VITALS: BP 123/83; PULSE 74; RESP 16; TEMP 36.4; O2SAT 96
[2024-08-19 02:45] VITALS: BP 119/69; PULSE 80; RESP 16; TEMP 37.4; O2SAT 97
[2024-08-19 03:18] VITALS: BMI 29.6
[2024-08-19 05:56] LABS: Hematocrit 30.7 % (40-54); Hemoglobin 10.2 g/dL (13.0-16.5); Mean Corp Hgb Conc 33.2 g/dL (32-36); Mean Corpuscular Hgb 27.6 pg (27.0-32.0); Mean Corpuscular Volume 83.2 fL (80-94); Mean Platelet Vol. 10.7 fl (6.2-12.0); POSITIVE COUNT YES; POSITIVE MORPHOLOGY YES; Platelet Count 222 K/mm3 (150-450); RBC Distribution Width CV 15.4 % (11.6-14.6); RBC Distribution Width SD 47.1 fl (35.1-43.9); Red Blood Count 3.69 M/mm3 (4.6-6.2); White Blood Count 8.4 K/mm3 (4.4-11.0)
[2024-08-19 06:08] LABS: Differential Indicated MANUAL DIFF
[2024-08-19 06:44] LABS: Eosinophil 1 % (0-5); Lymphocyte 5 % (19-41); Metamyelocyte 1 % (0-1); Monocyte 8 % (0-10); Myelocyte 2 % (0-0); Neutrophil-Segmented 83 % (47-70); Total Cells Counted 100 (MANUAL DIFF)
[2024-08-19 06:45] LABS: Microcytosis 1+; Ovalocyte 2+; Pathologist Review May foll; Platelet Estimate ADEQUATE (ADEQ); Schistocytes RARE
[2024-08-19 06:57] LABS: Anion Gap 12 (5-15); BUN 14 mg/dL (4-19); BUN/Creat Ratio 11.6 RATIO (10-20); Calcium,Total 8.4 mg/dL (7.6-11.0); Carbon Dioxide 17.2 mmol/L (21.0-32.0); Chloride 107 mmol/L (98-108); Creatinine, Serum 1.18 mg/dL (0.70-1.20); EST Glomerular Filtration Rate 64 (>60); Estimated Creatinine Clearance 59.31 ml/min (50-250); Glucose 103 mg/dL (70-99); Potassium 3.9 mmol/L (3.3-5.1); Sodium Level 136 mmol/L (133-145)
[2024-08-19 07:24] LABS: Absolute Lymphocyte Count 0.42 X10^3/uL (0.83-4.51)
[2024-08-19 09:00] VITALS: BP 120/74; PULSE 69; RESP 16; TEMP 36.6; O2SAT 96
--- NOTE | 2024-08-19 09:03 | PCM.PN.HOSP ---
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) Bladder disorder, unspecified (08/14/24) Urinary tract infection, site not specified (08/14/24) Unspecified abdominal pain (08/14/24) Hematuria, unspecified (08/14/24) Severe sepsis with septic shock (08/14/24) Bacteremia (08/14/24) Infection and inflammatory reaction due to cystostomy catheter, initial encounter (08/14/24) Personal history of malignant neoplasm of prostate (08/14/24) 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) Subjective Subjective Has had some further diarrhea, no active vomiting, no significant abdominal pain, has been up ambulating the halls but is weak and has a little bit of difficulty with the prolonged ambulation Objective Data Objective Data Vital Signs: Vital Signs Temp Pulse Resp BP Pulse Ox O2 Del Method O2 Flow Rate 99.3 F H 80 16 119/69 97 Room Air 1 08/19/24 02:45 08/19/24 02:45 08/19/24 02:45 08/19/24 02:45 08/19/24 02:45 08/19/24 06:00 08/15/24 14:00 Oxygen Flow Rate (L/min) 1 Oxygen Delivery Method Room Air Weight: 90.8 kg Body Mass Index (BMI) 29.6 Intake & Output: Intake and Output for Last 24 Hours 08/17/24 08/18/24 08/19/24 23:59 23:59 23:59 Intake Total 646.25 / 646.25 400 / 500 200 / 200 Output Total 1050 / 1050 1150 / 1400 650 / 650 Balance -403.75 / -403.75 -750 / -900 -450 / -450 Lab / Micro Data 08/19/24 05:03 08/19/24 05:03 Labs: Laboratory Results - last 24 hr 08/19/24 05:03: WBC 8.4, RBC 3.69 L, Hgb 10.2 L, Hct 30.7 L, MCV 83.2, MCH 27.6, MCHC 33.2, RDW Std Deviation 47.1 H, RDW Coeff of Jerry 15.4 H, Plt Count 222, MPV 10.7, Neut % (Auto) Not Reportable, Absolute Neuts (auto) 7.0, Absolute Lymphs (auto) 0.42 L, Total Counted 100, Neutrophils % (Manual) 83 H, Lymphocytes % (Manual) 5 L, Monocytes % (Manual) 8, Eosinophils % (Manual) 1, Metamyelocytes % 1, Myelocytes % 2 H, Diff Path Review May foll, Platelet Estimate ADEQUATE, Microcytosis 1+, Ovalocytes 2+, Schistocytes RARE, Sodium 136, Potassium 3.9, Chloride 107, Carbon Dioxide 17.2 L, Anion Gap 12, BUN 14, Creatinine 1.18, Estim Creat Clear Calc 59.31, Est GFR (MDRD) Non-Af 64, BUN/Creatinine Ratio 11.6, Glucose 103 H, Calcium 8.4 Micro: Microbiology 08/14/24 22:06 Urine Catheter - Worthy Urine Culture - Preliminary Providencia rettgeri Myroides spp GPC Poss Enterococcus sp 08/14/24 21:40 Blood Culture (Wb) - Arm Left Blood Culture - Preliminary Providencia rettgeri 08/14/24 22:06 Blood Culture (Wb) - Anticubital Left Blood Culture - Preliminary Gram negative aziza 08/14/24 21:40 Mucosa - Nose SARS-CoV-2, Influenza & RSV (PCR) - Final Physical Exam Narrative General: Alert, no apparent distress HEENT: Atraumatic, normocephalic Eyes: Anicteric, normal conjunctiva, extraocular movements grossly intact Neck: Supple Respiratory: Normal respiratory effort, no significant rhonchi or wheezes Cardiovascular: Regular rate GI: Soft, nontender, hyperactive bowel sounds Extremities: No edema Musculoskeletal: Moving all extremities Neuro: No overt focal neurological deficits Skin: No rashes appreciated Psych: Cooperative Assessment & Plan Assessment/Plan (1) Sepsis: QUALIFIERS: Acute renal failure type: unspecified Sepsis acute organ dysfunction status: with acute organ dysfunction Sepsis type: sepsis due to unspecified organism Severe sepsis acute organ dysfunction type: acute renal failure Severe sepsis shock status: with septic shock Qualified Code(s): A41.9 - Sepsis, unspecified organism; R65.21 - Severe sepsis with septic shock; N17.9 - Acute kidney failure, unspecified (2) UTI (urinary tract infection) due to urinary indwelling catheter: QUALIFIERS: Encounter type: initial encounter Indwelling urinary catheter type: cystostomy catheter Qualified Code(s): T83.510A - Infection and inflammatory reaction due to cystostomy catheter, initial encounter; N39.0 - Urinary tract infection, site not specified PLAN: Plan # Septic shock gram-negative UTI in the setting of chronic suprapubic catheter-blood culture growing Providencia rettgeri -Patient febrile in the ED with temp of 102.9, tachycardic with heart rate in 140s, blood pressure in the ED down to 75/50 with a MAP of 58 with respiratory rate of 38, patient's O2 sat also decreased necessitating 2 L of nasal cannula in place, patient with bicarb of 17.4 in the ED with gap of 17, lactic acid of 4.2 and increasing creatinine up to 1.69 with baseline seemingly closer to 1.3 -UA suggestive of UTI -CT scan also suggestive of possible cystitis -Blood and urine cultures ordered -Ucx +, organism and sensitivity data pending, blood cultures 2 out of 2 also positive for gram-negative rods -Patient started on Zosyn -Patient received 3 L IV fluid and has remained hypotensive so norepinephrine ordered -Patient presently admitted in the ICU, workers compensation coordinator consulted -08/16: Urine culture and sensitivity data pending, blood cultures positive, also pending sensitivities, patient remains on Zosyn, patient off of norepinephrine and is significantly improving, changed to PCU status -08/17: Patient growing Providencia rettgeri and blood culture, ID consulted, patient seem to improve on Zosyn however sensitivities revealed this is resistant to Zosyn, will switch to Levaquin while awaiting further ID input -08/18: Blood culture with Providencia rettgeri, urine culture growing Providencia rettgeri and ?myroides, and possible enteric coccus, patient placed on Rocephin by ID, following cultures for final antibiotic plan -08/19: Patient presently vitally stable and afebrile, white count has normalized, continue antibiotics # Polymicrobial UTI -08/19: Growing Providencia rettgeri which is also been growing in the blood, also growing myroides and possible enteric coccus in urine, given myroides sensitivities Doxy was added, gram-positive cocci possible enteric coccus final culture and sensitivity still pending. Appreciate ID recommendations this week for final antibiotic plan once all sensitivities available # Creatinine elevation from baseline in setting of mild to moderate right hydroureteronephrosis -Patient's creatinine 1.69, baseline seems closer to 1.3 -CT scan in the ED showed mild/moderate right hydroureteronephrosis without obstructing calculus, underlying obstructive bladder lesion not excluded and it was recommended further assessment with nonemergent CT urogram and/or direct visualization -Patient has previously seen Dr. Gilliland, Dr. Gilliland consulted but it is suspected this is chronic and there is no current plan for intervention, patient to be monitored -08/16: Creatinine has begun to downtrend, today is 1.8 -08/17: Further improving now that infection/septic shock improving, creatinine 1.46 today. Patient will need to follow-up with urology on outpatient basis for his chronic Worthy but no acute intervention planned -08/18: Continued improvement with treatment of infection -08/19: Creatinine 1.18 today, significantly improved, no further acute management necessary #Hypertension -Patient with septic shock, hold amlodipine, lisinopril, terazosin -08/16: Continue to hold medications, patient off Levophed, as patient improves can add back medications as tolerated -08/17: Patient still on midodrine, will DC given patient's stable blood pressure, add back blood pressure medications as tolerated but will continue hold at this time, most recent blood pressure 116/74 -08/18: Patient's blood pressure stable with midodrine discontinued but a.m. blood pressure 107/67, hold off on adding back home antihypertensives at this time -08/19: AM blood pressure 119/69, vitally stable but not yet ready to add back oral antihypertensives # Diarrhea -08/18: Could be due to antibiotics or vitamin C or zinc but will check C. difficile and stool panel to verify no infection, if nothing identified can give patient an antidiarrheal agent -08/19: Vitamin C stopped as was zinc, C. difficile and stool studies negative so loperamide as needed added Chronic medical problems: # History of prostate cancer -Status post prostate removal and radiation therapy through [facility] with subsequent bladder neck contracture and ultimately suprapubic catheter -PSA undetectable #DVT ppx: SCDs Juany Souza MD Time spent in the patient's overall evaluation,decision-making process, review of diagnostic data, adjustment of management, discussion with other providers, nursing nursing and ancillary staff involved in patient's care documentation, 36 minutes Charges/Coding Visit Charges Inpatient E&M: 35623 Subs Hosp L2
[2024-08-19] MEDS: Cholecalciferol (Vit D3) 125 MCG CAPSULE (5,000 UNITS) PO (09:34)
[2024-08-19] MEDS: Ceftriaxone 2 GM in 0.9% Normal Saline (50mL MB+) 50 ML IV (09:34)
[2024-08-19] MEDS: Lactobacillis Acidophilus 1 CAP PO ×4 (09:34→21:10)
[2024-08-19] MEDS: Enoxaparin 40 MG/0.4 ML Syringe SC (09:34)
[2024-08-19] MEDS: Pantoprazole Sodium 40 MG Tablet PO (09:34)
[2024-08-19] MEDS: 0.9% Saline Lock 10 ML Syringe IV (09:35)
[2024-08-19] MEDS: Doxycycline 100 MG in 0.9% Normal Saline (250mL Bag) 250 ML 250 MG IV ×2 (10:40→21:10)
[2024-08-19] MEDS: Loperamide 2 MG Capsule 4 MG PO (13:28)
[2024-08-19 15:00] VITALS: BP 127/70; PULSE 72; RESP 16; TEMP 36.7; O2SAT 97
[2024-08-19 21:00] VITALS: BP 140/75; PULSE 70; RESP 16; TEMP 37.1; O2SAT 96
[2024-08-20 02:19] VITALS: BP 122/80; PULSE 77; RESP 16; TEMP 36.6; O2SAT 97
[2024-08-20 04:48] LABS: Mean Corp Hgb Conc 33.3 g/dL (32-36); Mean Corpuscular Hgb 27.9 pg (27.0-32.0); Mean Corpuscular Volume 83.8 fL (80-94); Mean Platelet Vol. 10.7 fl (6.2-12.0); POSITIVE COUNT YES; POSITIVE MORPHOLOGY YES; Platelet Count 250 K/mm3 (150-450); RBC Distribution Width CV 15.1 % (11.6-14.6); RBC Distribution Width SD 46.3 fl (35.1-43.9); Red Blood Count 3.58 M/mm3 (4.6-6.2)
[2024-08-20 04:58] LABS: Differential Indicated MANUAL DIFF
[2024-08-20 05:10] LABS: Anion Gap 10 (5-15); BUN 12 mg/dL (4-19); Calcium,Total 8.4 mg/dL (7.6-11.0); Carbon Dioxide 20.6 mmol/L (21.0-32.0); Chloride 107 mmol/L (98-108); Creatinine, Serum 1.18 mg/dL (0.70-1.20); EST Glomerular Filtration Rate 64 (>60); Estimated Creatinine Clearance 59.31 ml/min (50-250); Glucose 98 mg/dL (70-99); Potassium 3.9 mmol/L (3.3-5.1); Sodium Level 137 mmol/L (133-145)
[2024-08-20 05:48] LABS: Total Cells Counted 100 (MANUAL DIFF)
[2024-08-20 05:49] LABS: Lymphocyte 11 % (19-41); Metamyelocyte 1 % (0-1); Monocyte 7 % (0-10); Myelocyte 3 % (0-0); Neutrophil-Segmented 73 % (47-70); Promyelocyte 1 % (0-0)
[2024-08-20 05:50] LABS: Absolute Lymphocyte Count 0.88 X10^3/uL (0.83-4.51); Absolute Neutrophil Count 5.9 X10^3/uL (2.0-7.7); Eosinophil 4 % (0-5); Pathologist Review May foll
--- NOTE | 2024-08-20 07:41 | PN.HOSP_ITS ---
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) Bladder disorder, unspecified (08/14/24) Urinary tract infection, site not specified (08/14/24) Unspecified abdominal pain (08/14/24) Hematuria, unspecified (08/14/24) Severe sepsis with septic shock (08/14/24) Bacteremia (08/14/24) Infection and inflammatory reaction due to cystostomy catheter, initial encounter (08/14/24) Personal history of malignant neoplasm of prostate (08/14/24) 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) Objective Data Objective Data Vital Signs: Vital Signs Temp Pulse Resp BP Pulse Ox O2 Del Method O2 Flow Rate 97.9 F 77 16 122/80 H 97 Room Air 1 08/20/24 02:19 08/20/24 02:19 08/20/24 02:19 08/20/24 02:19 08/20/24 02:19 08/20/24 04:28 08/15/24 14:00 Oxygen Flow Rate (L/min) 1 Oxygen Delivery Method Room Air Weight: 200 lb 2.876 oz Body Mass Index (BMI) 29.6 Intake & Output: Intake and Output for Last 24 Hours 08/18/24 08/19/24 08/20/24 23:59 23:59 23:59 Intake Total 400 / 500 770 / 770 Output Total 1150 / 1400 1825 / 1825 1050 / 1050 Balance -750 / -900 -1055 / -1055 -1050 / -1050 Lab / Micro Data 08/20/24 03:47 08/20/24 03:47 Labs: Laboratory Results - last 24 hr 08/20/24 03:47: WBC 8.0, RBC 3.58 L, Hgb 10.0 L, Hct 30.0 L, MCV 83.8, MCH 27.9, MCHC 33.3, RDW Std Deviation 46.3 H, RDW Coeff of Jerry 15.1 H, Plt Count 250, MPV 10.7, Neut % (Auto) Not Reportable, Absolute Neuts (auto) 5.9, Absolute Lymphs (auto) 0.88, Total Counted 100, Neutrophils % (Manual) 73 H, Lymphocytes % (Manual) 11 L, Monocytes % (Manual) 7, Eosinophils % (Manual) 4, Metamyelocytes % 1, Myelocytes % 3 H, Promyelocytes % 1 H, Diff Path Review October, Sodium 137, Potassium 3.9, Chloride 107, Carbon Dioxide 20.6 L, Anion Gap 10, BUN 12, Creatinine 1.18, Estim Creat Clear Calc 59.31, Est GFR (MDRD) Non-Af 64, BUN/Creatinine Ratio 10.0, Glucose 98, Calcium 8.4 Micro: Microbiology 08/19/24 07:25 Stool Enteric Bacteriology - Final 08/19/24 07:25 Stool Clostridioides difficile (PCR) - Final 08/14/24 22:06 Urine Catheter - Worthy Urine Culture - Preliminary Providencia rettgeri Myroides spp GPC Poss Enterococcus sp 08/14/24 21:40 Blood Culture (Wb) - Arm Left Blood Culture - Preliminary Providencia rettgeri 08/14/24 22:06 Blood Culture (Wb) - Anticubital Left Blood Culture - Preliminary Gram negative aziza 08/14/24 21:40 Mucosa - Nose SARS-CoV-2, Influenza & RSV (PCR) - Final Physical Exam Narrative Seen and examined. Patient has a history of Prostate cancer status post radical prostatectomy in 2011. He had recurrence of cancer in 2015 and required radiation. In November 2023 required suprapubic catheter. Patient was admitted on 08/14 secondary to septic shock due to UTI. Has mild cough. Moving bowel. Physical exam General: Alert, Oriented x3, Cooperative. BMI 29.6 kg per square HEENT: Mild bilateral hearing impairment atraumatic, PERRLA, EOMI, Normocephalic Oral: No Gingival or Mucosal Lesions/ Ulcerations Neck: Supple, No JVD, Negative Carotid Bruits Chest wall/Lungs: Air entry diminished in bilateral lung bases. No crepitation/rhonchi Cardiovascular: Regular rate, Regular Rhythm, Normal S1, Normal S2, No M/G/R Abdomen: Bowel Sounds Present, Soft, Non Tender, Non-Distended : Suprapubic catheter. No renal angle tenderness. No suprapubic tenderness. Extremities: No edema, Capillary Refill Less than 3 Seconds Skin: No rashes, No breakdown Musculoskeletal: No Tenderness to Palpation of Joints or Extremities Neurological: Cranial nerves II-XII grossly intact, DTR 2+/4. No acute focal neurological deficit. Psych/Mental Status: Flat affect Assessment & Plan Assessment/Plan (1) Sepsis: QUALIFIERS: Acute renal failure type: unspecified Sepsis acute organ dysfunction status: with acute organ dysfunction Sepsis type: sepsis due to unspecified organism Severe sepsis acute organ dysfunction type: acute renal failure Severe sepsis shock status: with septic shock Qualified Code(s): A41.9 - Sepsis, unspecified organism; R65.21 - Severe sepsis with septic shock; N17.9 - Acute kidney failure, unspecified (2) UTI (urinary tract infection) due to urinary indwelling catheter: QUALIFIERS: Encounter type: initial encounter Indwelling urinary catheter type: cystostomy catheter Qualified Code(s): T83.510A - Infection and inflammatory reaction due to cystostomy catheter, initial encounter; N39.0 - Urinary tract infection, site not specified PLAN: Plan # Septic shock gram-negative UTI in the setting of chronic suprapubic catheter- blood culture growing Providencia rettgeri -Patient febrile in the ED with temp of 102.9, tachycardic with heart rate in 140s, blood pressure in the ED down to 75/50 with a MAP of 58 with respiratory rate of 38, patient's O2 sat also decreased necessitating 2 L of nasal cannula in place, patient with bicarb of 17.4 in the ED with gap of 17, lactic acid of 4.2 and increasing creatinine up to 1.69 with baseline seemingly closer to 1.3 -UA suggestive of UTI -CT scan also suggestive of possible cystitis -Blood and urine cultures ordered -Ucx +, organism and sensitivity data pending, blood cultures 2 out of 2 also positive for gram-negative rods -Patient started on Zosyn -Patient received 3 L IV fluid and has remained hypotensive so norepinephrine ordered -Patient presently admitted in the ICU, quality assurance supervisor body consulted -08/16: Urine culture and sensitivity data pending, blood cultures positive, also pending sensitivities, patient remains on Zosyn, patient off of norepinephrine and is significantly improving, changed to PCU status -08/17: Patient growing Providencia rettgeri and blood culture, ID consulted, patient seem to improve on Zosyn however sensitivities revealed this is resistant to Zosyn, will switch to Levaquin while awaiting further ID input -08/18: Blood culture with Providencia rettgeri, urine culture growing Providencia rettgeri and ?myroides, and possible enteric coccus, patient placed on Rocephin by ID, following cultures for final antibiotic plan -08/19: Patient presently vitally stable and afebrile, white count has normalized, continue antibiotics 08/20: Patient has mild cough. Incentive spirometry ordered. Afebrile. PT and OT ordered # Polymicrobial UTI -08/19: Growing Providencia rettgeri which is also been growing in the blood, also growing myroides and possible enteric coccus in urine, given myroides sensitivities Doxy was added, gram-positive cocci possible enteric coccus final culture and sensitivity still pending. Appreciate ID recommendations this week for final antibiotic plan once all sensitivities available # Creatinine elevation from baseline in setting of mild to moderate right hydroureteronephrosis -Patient's creatinine 1.69, baseline seems closer to 1.3 -CT scan in the ED showed mild/moderate right hydroureteronephrosis without obstructing calculus, underlying obstructive bladder lesion not excluded and it was recommended further assessment with nonemergent CT urogram and/or direct visualization -Patient has previously seen Dr. Gilliland, Dr. Gilliland consulted but it is suspected this is chronic and there is no current plan for intervention, patient to be monitored -08/16: Creatinine has begun to downtrend, today is 1.8 -08/17: Further improving now that infection/septic shock improving, creatinine 1.46 today. Patient will need to follow-up with urology on outpatient basis for his chronic Worthy but no acute intervention planned -08/18: Continued improvement with treatment of infection -08/19: Creatinine 1.18 today, significantly improved, no further acute management necessary #Hypertension -Patient with septic shock, hold amlodipine, lisinopril, terazosin -08/16: Continue to hold medications, patient off Levophed, as patient improves can add back medications as tolerated -08/17: Patient still on midodrine, will DC given patient's stable blood pressure, add back blood pressure medications as tolerated but will continue hold at this time, most recent blood pressure 116/74 -08/18: Patient's blood pressure stable with midodrine discontinued but a.m. blood pressure 107/67, hold off on adding back home antihypertensives at this time -08/19: AM blood pressure 119/69, vitally stable but not yet ready to add back oral antihypertensives # Diarrhea -08/18: Could be due to antibiotics or vitamin C or zinc but will check C. difficile and stool panel to verify no infection, if nothing identified can give patient an antidiarrheal agent -08/19: Vitamin C stopped as was zinc, C. difficile and stool studies negative so loperamide as needed added Chronic medical problems: # History of prostate cancer -Status post prostate removal and radiation therapy through [facility] with subsequent bladder neck contracture and ultimately suprapubic catheter -PSA undetectable #DVT ppx: SCDs
[2024-08-20 08:00] VITALS: BP 126/68; PULSE 70; RESP 16; TEMP 36.8; O2SAT 97
[2024-08-20] MEDS: Ceftriaxone 2 GM in 0.9% Normal Saline (50mL MB+) 50 ML IV (09:47)
[2024-08-20] MEDS: Enoxaparin 40 MG/0.4 ML Syringe SC (09:47)
[2024-08-20] MEDS: Lactobacillis Acidophilus 1 CAP PO (09:47)
[2024-08-20] MEDS: Cholecalciferol (Vit D3) 125 MCG CAPSULE (5,000 UNITS) PO (09:48)
[2024-08-20] MEDS: Pantoprazole Sodium 40 MG Tablet PO (09:48)
--- NOTE | 2024-08-20 10:13 | DCINST_ITS ---
Discharge Instructions Diet Discharge Diet: No restrictions DC O2, CPAP, BIPAP needs Home O2 Discharge instructions: No Dressing / Incision Discharge Activity: Return to Normal Activity Weight Bearing Status: Weight bearing as tolerated Dressing / Incision Call your doctor if you observe: Fever of 101 or Higher, Coldness, Increased Pain, Numbness or Tingling, Change in Color, Inability to urinate, Inability to have a bowel movement, Shortness of breath, Dizziness, Fainting spells, Swelling in the ankles, Chest pain, Prolonged hiccupping, Increased palpitations (irregular heartbeat) and Calf discomfort Follow Up Care When: IN 2 WEEKS Test Results: Test results from this visit will be discussed in further detail at your follow- up appointment, if applicable. Discharge Plan Admission Admit Date/Time: 08/14/24 23:36 Primary Reason for Your Visit: Septic shock due to CAUTI. Attending Provider: Jameel Herrera Primary Care Provider: Isaiah Han Consulting Providers: Rajinder Acosta; Zhao Gilliland; Cameron Giron; Juany Souza Discharge Orders/Prescriptions Prescriptions: Audra Alexander-S.therm 175 mg Capsule 1 cap PO 2XD Qty: 0 0RF Rx Instructions: Bloz-hgd-vvesnkb for 1 week. levofloxacin 500 mg tablet 500 mg PO DAILY 5 Days Qty: 5 0RF Continued terazosin 5 MG capsule 5 mg PO QPM amlodipine 10 MG tablet 10 mg PO DAILY A Thru Z Men's Ultimate 8 mg iron- 200 mcg-600 mcg tablet 1 tab PO DAILY Held lisinopril 40 MG tablet 40 mg PO BID Hold Instructions: Hold for 5 more days and resume lower dose of lisinopril Referrals / Follow Up: Isaiah Han MD [Primary Care Provider] - (Respiratory Therapy Assistant called the office and they were closed for lunch. Please schedule your follow up appointment. ) Zhao Gilliland MD [Med Staff - Active Staff] - Within 1 Month (For suprapubic catheter.) Cameron Giron MD [Med Staff - Active Staff] - Within 1 Month (As needed.) Disposition Disposition (needs filled in before D/C Order can be placed): Home Health Service
[2024-08-20] MEDS: Doxycycline 100 MG in 0.9% Normal Saline (250mL Bag) 250 ML 250 MG IV (10:38)
--- NOTE | 2024-08-20 12:28 | PCM.DC.SUM ---
Providers Date of Admission: 08/14/24 Date of Discharge: 08/20/24 Primary Care Physician: Dr. Isaiah Han MD Consultations 08/15/24 00:05 Consult: Team Driver / Pulmonary Medicine Routine Consulting Provider: Intensivists/Pulmonary Med Reason for Consult: Sepsis with UTI and Leukopenia. EMERGENT Consult: No MD Notified: Yes Date Notified: 08/15/24 Time Notified: 07:48 Method of Notification: Verbal 08/15/24 01:00 Consult: Urology Routine Consulting Provider: Zhao Gilliland Reason for Consult: History of Prostate Cancer with ? bladder lesion on CT. EMERGENT Consult: No MD Notified: Yes Date Notified: 08/15/24 Time Notified: 01:00 Method of Notification: Answering Service 08/17/24 07:41 Consult: Infectious Disease Routine Consulting Provider: Cameron Giron Reason for Consult: septic shock 2/2 Providencia rettgeri w/ chronic indwelling perdomo EMERGENT Consult: No MD Notified: Yes Date Notified: 08/17/24 Time Notified: 07:41 Method of Notification: Text Reason For Visit: SEPSIS, UTI, LEUKOPENIA & RIGHT FLANK PAIN WITH Diagnosis Discharge Diagnosis (1) Sepsis: Status: Acute Code(s): A41.9 - Sepsis, unspecified organism Qualifiers: Acute renal failure type: unspecified Sepsis acute organ dysfunction status: with acute organ dysfunction Sepsis type: sepsis due to unspecified organism Severe sepsis acute organ dysfunction type: acute renal failure Severe sepsis shock status: with septic shock Qualified Code(s): A41.9 - Sepsis, unspecified organism; R65.21 - Severe sepsis with septic shock; N17.9 - Acute kidney failure, unspecified (2) UTI (urinary tract infection) due to urinary indwelling catheter: Status: Acute Code(s): T83.511A - Infection and inflammatory reaction due to indwelling urethral catheter, initial encounter; N39.0 - Urinary tract infection, site not specified Qualifiers: Encounter type: initial encounter Indwelling urinary catheter type: cystostomy catheter Qualified Code(s): T83.510A - Infection and inflammatory reaction due to cystostomy catheter, initial encounter; N39.0 - Urinary tract infection, site not specified Plan This 78-year-old gentleman was admitted with sudden onset of right flank pain on the day of admission along with intermittent bladder spasm and hematuria after the spasm. Patient reported chills and fever. In ED, diagnosis was made septic shock and was admitted in ICU # Septic shock gram-negative UTI in the setting of chronic suprapubic catheter-blood culture growing Providencia rettgeri -Patient febrile in the ED with temp of 102.9, tachycardic with heart rate in 140s, blood pressure in the ED down to 75/50 with a MAP of 58 with respiratory rate of 38, patient's O2 sat also decreased necessitating 2 L of nasal cannula in place, patient with bicarb of 17.4 in the ED with gap of 17, lactic acid of 4.2 and increasing creatinine up to 1.69 with baseline seemingly closer to 1.3 -UA suggestive of UTI -CT scan also suggestive of possible cystitis -Blood and urine cultures ordered -Ucx +, organism and sensitivity data pending, blood cultures 2 out of 2 also positive for gram-negative rods -Patient started on Zosyn -Patient received 3 L IV fluid and has remained hypotensive so norepinephrine ordered -Patient presently admitted in the ICU, production control specialist consulted -08/16: Urine culture and sensitivity data pending, blood cultures positive, also pending sensitivities, patient remains on Zosyn, patient off of norepinephrine and is significantly improving, changed to PCU status -08/17: Patient growing Providencia rettgeri and blood culture, ID consulted, patient seem to improve on Zosyn however sensitivities revealed this is resistant to Zosyn, will switch to Levaquin while awaiting further ID input -08/18: Blood culture with Providencia rettgeri, urine culture growing Providencia rettgeri and ?myroides, and possible enteric coccus, patient placed on Rocephin by ID, following cultures for final antibiotic plan -08/19: Patient presently vitally stable and afebrile, white count has normalized, continue antibiotics 08/20: Patient has mild cough. Incentive spirometry ordered. Afebrile. PT and OT ordered. Patient did follow-up with ID and recommended levofloxacin 500 mg daily for 5 more days. # Polymicrobial UTI -08/19: Growing Providencia rettgeri which is also been growing in the blood, also growing myroides and possible enteric coccus in urine, given myroides sensitivities Doxy was added, gram-positive cocci possible enteric coccus final culture and sensitivity still pending. Appreciate ID recommendations this week for final antibiotic plan once all sensitivities available 08/20 urine culture and sensitivity reviewed. Shows [facility], Myroides and Enterococcus # Creatinine elevation from baseline in setting of mild to moderate right hydroureteronephrosis -Patient's creatinine 1.69, baseline seems closer to 1.3 -CT scan in the ED showed mild/moderate right hydroureteronephrosis without obstructing calculus, underlying obstructive bladder lesion not excluded and it was recommended further assessment with nonemergent CT urogram and/or direct visualization -Patient has previously seen Dr. Gilliland, Dr. Gilliland consulted but it is suspected this is chronic and there is no current plan for intervention, patient to be monitored -08/16: Creatinine has begun to downtrend, today is 1.8 -08/17: Further improving now that infection/septic shock improving, creatinine 1.46 today. Patient will need to follow-up with urology on outpatient basis for his chronic Perdomo but no acute intervention planned -08/18: Continued improvement with treatment of infection -08/19: Creatinine 1.18 today, significantly improved, no further acute management necessary 08/20 creatinine is on baseline. Hold lisinopril for 5 more days follow-up with PCP with BMP and resume lower dose. Patient was on lisinopril 40 mg twice daily as seen home medication #Hypertension -Patient with septic shock, hold amlodipine, lisinopril, terazosin -08/16: Continue to hold medications, patient off Levophed, as patient improves can add back medications as tolerated -08/17: Patient still on midodrine, will DC given patient's stable blood pressure, add back blood pressure medications as tolerated but will continue hold at this time, most recent blood pressure 116/74 -08/18: Patient's blood pressure stable with midodrine discontinued but a.m. blood pressure 107/67, hold off on adding back home antihypertensives at this time -08/19: AM blood pressure 119/69, vitally stable but not yet ready to add back oral antihypertensives # Diarrhea -08/18: Could be due to antibiotics or vitamin C or zinc but will check C. difficile and stool panel to verify no infection, if nothing identified can give patient an antidiarrheal agent -08/19: Vitamin C stopped as was zinc, C. difficile and stool studies negative so loperamide as needed added 08/20 diarrhea resolved. Enteric pathogen panel and C. difficile negative. Advised probiotic [id number] for 1 week Chronic medical problems: # History of prostate cancer Patient has a history of Prostate cancer status post radical prostatectomy in 2011. He had recurrence of cancer in 2015 and required radiation and subsequent bladder neck contracture. In November 2023 required suprapubic catheter. -PSA undetectable #DVT ppx: SCDs Discharge medication reconciliation done. Discharge follow-up instructions completed. Discharge process discussed with the patient and all questions were answered to patient's satisfaction. Follow with PCP in 1 to 2 weeks Total time spent, exact 35 minutes on discharge meds reconciliation, examination, coordination of care with nurses and ancillary staff, review of imaging and blood test and discussion with the patient on follow-up instructions. Medications at Discharge Home Medications amlodipine 10 mg tablet 10 mg PO DAILY BLOOD PRESSURE 12/08/18 lisinopril 40 mg tablet 40 mg PO BID BLOOD PRESSURE 12/08/18 Held on 08/20/24. Instructions: Hold for 5 more days and resume lower dose of lisinopril terazosin 5 mg capsule 5 mg PO QPM BLOOD PRESSURE 12/08/18 multivit,Ca,min-iron 8 mg-folic acid 200 mcg-lycopene 600 mcg tablet (A Thru Z Men's Ultimate) 1 tab PO DAILY SUPPLEMENT 11/04/23 L.acidophil,salivari-Bifido bifidum-Strep thermoph 175 mg capsule 1 cap PO 2XD #0 caps 08/20/24 levofloxacin 500 mg tablet 500 mg PO DAILY 5 days #5 tabs 08/20/24 Physical Exam Narrative Seen and examined. Patient has a history of Prostate cancer status post radical prostatectomy in 2011. He had recurrence of cancer in 2015 and required radiation. In November 2023 required suprapubic catheter. Patient was admitted on 08/14 secondary to septic shock due to UTI. Has mild cough. Moving bowel. Physical exam General: Alert, Oriented x3, Cooperative. BMI 29.6 kg per square HEENT: Mild bilateral hearing impairment atraumatic, PERRLA, EOMI, Normocephalic Oral: No Gingival or Mucosal Lesions/ Ulcerations Neck: Supple, No JVD, Negative Carotid Bruits Chest wall/Lungs: Air entry diminished in bilateral lung bases. No crepitation/rhonchi Cardiovascular: Regular rate, Regular Rhythm, Normal S1, Normal S2, No M/G/R Abdomen: Bowel Sounds Present, Soft, Non Tender, Non-Distended : Suprapubic catheter. No renal angle tenderness. No suprapubic tenderness. Extremities: No edema, Capillary Refill Less than 3 Seconds Skin: No rashes, No breakdown Musculoskeletal: No Tenderness to Palpation of Joints or Extremities Neurological: Cranial nerves II-XII grossly intact, DTR 2+/4. No acute focal neurological deficit. Psych/Mental Status: Flat affect Weight / BMI Weight Weight: 200 lb 2.876 oz Body Mass Index (BMI) 29.6 ABG / Lab / Microbiology Data 08/20/24 03:47 08/20/24 03:47 Laboratory: Laboratory Results - last 24 hr 08/20/24 03:47: WBC 8.0, RBC 3.58 L, Hgb 10.0 L, Hct 30.0 L, MCV 83.8, MCH 27.9, MCHC 33.3, RDW Std Deviation 46.3 H, RDW Coeff of Jerry 15.1 H, Plt Count 250, MPV 10.7, Neut % (Auto) Not Reportable, Absolute Neuts (auto) 5.9, Absolute Lymphs (auto) 0.88, Total Counted 100, Neutrophils % (Manual) 73 H, Lymphocytes % (Manual) 11 L, Monocytes % (Manual) 7, Eosinophils % (Manual) 4, Metamyelocytes % 1, Myelocytes % 3 H, Promyelocytes % 1 H, Diff Path Review October, Sodium 137, Potassium 3.9, Chloride 107, Carbon Dioxide 20.6 L, Anion Gap 10, BUN 12, Creatinine 1.18, Estim Creat Clear Calc 59.31, Est GFR (MDRD) Non-Af 64, BUN/Creatinine Ratio 10.0, Glucose 98, Calcium 8.4 Microbiology: Microbiology 08/14/24 22:06 Blood Culture (Wb) - Anticubital Left Blood Culture - Final Gram negative aziza 08/14/24 21:40 Blood Culture (Wb) - Arm Left Blood Culture - Final Providencia rettgeri 08/14/24 22:06 Urine Catheter - Perdomo Urine Culture - Final Providencia rettgeri Myroides spp Enterococcus faecalis 08/19/24 07:25 Stool Enteric Bacteriology - Final 08/19/24 07:25 Stool Clostridioides difficile (PCR) - Final 08/14/24 21:40 Mucosa - Nose SARS-CoV-2, Influenza & RSV (PCR) - Final D/C Instructions Discharge Diet: No restrictions Weight Bearing Status: Weight bearing as tolerated Call your doctor if you observe: Fever of 101 or Higher, Coldness, Increased Pain, Numbness or Tingling, Change in Color, Inability to urinate, Inability to have a bowel movement, Shortness of breath, Dizziness, Fainting spells, Swelling in the ankles, Chest pain, Prolonged hiccupping, Increased palpitations (irregular heartbeat) and Calf discomfort DC O2, CPAP, BIPAP Needs Home O2 Discharge instructions: No When: IN 2 WEEKS Meaningful Use Info Meaningful Use Meaningful Use Diagnoses (Choose all that apply): None applicable Ischemic Stroke Statin Dosing Therapy Reference: STATIN DOSE THERAPY REFERENCE: * Patients > 75 years receive moderate or high dose statin therapy. * Patients 75 years or YOUNGER should receive HIGH intensity statin dose unless contraindicated. You will be required to document reason for non-treatment if statin daily dose does not meet guidelines. HIGH DOSE STATIN THERAPY DAILY Atorvastatin > than or = to 40 mg Rosuvastatin > than or = to 20 mg Amlodipine + Atorvastatin > than or = to 2.5/40 mg Ezetimibe + Simvastatin 10/80 mg Simvastatin 80mg Discharge Plan Admission Admit Date/Time: 08/14/24 23:36 Primary Reason for Your Visit: Septic shock due to CAUTI. Attending Provider: Jameel Herrera Primary Care Provider: Isaiah Han Consulting Providers: Rajinder Acosta; Zhao Gilliland; Cameron Giron; Juany Souza Discharge Orders/Prescriptions Prescriptions: Audra Alexander-S.therm 175 mg Capsule 1 cap PO 2XD Qty: 0 0RF Rx Instructions: [id number]-[id number] for 1 week. levofloxacin 500 mg tablet 500 mg PO DAILY 5 Days Qty: 5 0RF Continued terazosin 5 MG capsule 5 mg PO QPM amlodipine 10 MG tablet 10 mg PO DAILY A Thru Z Men's Ultimate 8 mg iron- 200 mcg-600 mcg tablet 1 tab PO DAILY Held lisinopril 40 MG tablet 40 mg PO BID Hold Instructions: Hold for 5 more days and resume lower dose of lisinopril Referrals / Follow Up: Isaiah Han MD [Primary Care Provider] - ([employer] called the office and they were closed for lunch. Please schedule your follow up appointment. ) Zhao Gilliland MD [Med Staff - Active Staff] - Within 1 Month (For suprapubic catheter.) Cameron Giron MD [Med Staff - Active Staff] - Within 1 Month (As needed.) Disposition Disposition (needs filled in before D/C Order can be placed): Home Health Service Charges/Coding Visit Charges Inpatient E&M: 08078 Disch Hosp >30min
--- NOTE | 2024-08-20 14:29 | PCM.PN.ID ---
Physical Exam Narrative Feeling better, no fever, no abd pain. Const alert and no apparent distress General Appearance: cooperative Resp normal air movement and clear to auscultation bilaterally Cardio regular rate and regular rhythm GI soft to palpation, non-tender and non-distended Skin no rashes or lesions noted ID ID: Route of nutrition/ use of supplements: [] Nutritional Intake: [] IV Site: [] Worthy Catheter: [] Assessment & Plan Assessment/Plan (1) Sepsis: QUALIFIERS: Sepsis type: sepsis due to unspecified organism Sepsis acute organ dysfunction status: with acute organ dysfunction Severe sepsis acute organ dysfunction type: acute renal failure Acute renal failure type: unspecified Severe sepsis shock status: with septic shock Qualified Code(s): A41.9 - Sepsis, unspecified organism; R65.21 - Severe sepsis with septic shock; N17.9 - Acute kidney failure, unspecified PLAN: Improved. Providencia bacteremia due to uti. Ucx with providencia, myroides and a smaller amount of enterococcus-like. Ok for d/c home with 5 days po levaquin. Will follow prn, d/w primary team (2) Bacteremia due to Gram-negative bacteria: (3) UTI (urinary tract infection) due to urinary indwelling catheter: QUALIFIERS: Indwelling urinary catheter type: cystostomy catheter Encounter type: initial encounter Qualified Code(s): T83.510A - Infection and inflammatory reaction due to cystostomy catheter, initial encounter; N39.0 - Urinary tract infection, site not specified
[2024-08-20 14:30] VITALS: BP 126/68; PULSE 70; RESP 16; TEMP 36.8; O2SAT 97
--- NOTE | 2024-08-20 14:45 | PHA.DC.MC.R ---
Pharmacy [facility] has performed discharge medication reconciliation and counseling for this patient. 1. LEVOFLOXACIN 500MG PO DAILY X 5 DAYS 2. ACIDOPHOLIS LACTOBACILLUS 1C PO BID 3. HOLD LISINOPRIL The patient's discharge medication list was reviewed for discrepancies and discrepancies were resolved. The patient was counseled on the following discharge medications and changes in medications for homegoing were reviewed. The Reason for Use, instructions for use, and potential side effects were reviewed for all new medications. The patient's questions regarding all of their medications were answered. The patient was able to verbally demonstrate an understanding of their discharge medications. Medications at Discharge Home Medications amlodipine 10 mg tablet 10 mg PO DAILY BLOOD PRESSURE 12/08/18 lisinopril 40 mg tablet 40 mg PO BID BLOOD PRESSURE 12/08/18 Held on 08/20/24. Instructions: Hold for 5 more days and resume lower dose of lisinopril terazosin 5 mg capsule 5 mg PO QPM BLOOD PRESSURE 12/08/18 multivit,Ca,min-iron 8 mg-folic acid 200 mcg-lycopene 600 mcg tablet (A Thru Z Men's Ultimate) 1 tab PO DAILY SUPPLEMENT 11/04/23 L.acidophil,salivari-Bifido bifidum-Strep thermoph 175 mg capsule 1 cap PO 2XD #0 caps 08/20/24 levofloxacin 500 mg tablet 500 mg PO DAILY 5 days #5 tabs 08/20/24
== END 2024-08-20 15:03 | disposition home or self-care (01) | DRG 698 ==
LOC: ED 22:47 → ICU 23:44 → PCU 08-18 10:53
PROVIDERS: Internal Medicine; Admitting Provider Internal Medicine; Emergency Provider Emergency Medicine; PCP Family Medicine; Visit Provider Internal Medicine
DX: T83.510A Infection and inflammatory reaction due to cystostomy catheter, initial encounter (principal); R65.21 Severe sepsis with septic shock; A41.50 Gram-negative sepsis, unspecified; E87.20 Acidosis, unspecified; N17.9 Acute kidney failure, unspecified; N30.01 Acute cystitis with hematuria; N13.30 Unspecified hydronephrosis; N39.0 Urinary tract infection, site not specified; C61 Malignant neoplasm of prostate; D72.819 Decreased white blood cell count, unspecified; I10 Essential (primary) hypertension; I95.9 Hypotension, unspecified; R19.7 Diarrhea, unspecified; Z79.2 Long term (current) use of antibiotics; Z92.3 Personal history of irradiation; E66.3 Overweight; H91.90 Unspecified hearing loss, unspecified ear; Z79.1 Long term (current) use of non-steroidal anti-inflammatories (NSAID); Z68.29 Body mass index [BMI] 29.0-29.9, adult; N32.89 Other specified disorders of bladder; R33.8 Other retention of urine; Z85.46 Personal history of malignant neoplasm of prostate
CPT/HCPCS: 36415; 36569; 71046; 74176; 80048; 80053; 81001; 82607; 82746; 83036; 83605; 84153; 84443; 85025; 85610; 85730; 87040; 87077; 87086; 87088; 87186; 87493; 87506; 87631; 90662; 93005; 94668; 97161; 97165; 99285; P9047; A4216; G0103; J0696; J2405

== ENCOUNTER → 2024-09-18 | Outpatient (CLI) | payer MEDICARE, OTHER, SELFPAY ==
[2024-09-18 10:06] LABS: Absolute Lymphocyte Count 0.79 X10^3/uL (0.83-4.51); Absolute Neutrophil Count 4.3 X10^3/uL (2.0-7.7); Basophil# 0.01 X10^3/uL; Basophil% 0.2 % (0-1); Eosinophil# 0.07 X10^3/uL; Eosinophils% 1.2 % (0-5); Hematocrit 35.2 % (40-54); Hemoglobin 11.9 g/dL (13.0-16.5); Lymphocyte # 0.79 X10^3/ul (0.83-4.51); Lymphocyte % 13.7 % (19-41); Mean Corp Hgb Conc 33.8 g/dL (32-36); Mean Corpuscular Hgb 28.5 pg (27.0-32.0); Mean Corpuscular Volume 84.4 fL (80-94); Mean Platelet Vol. 10.7 fl (6.2-12.0); Monocyte% 8.7 % (0-10); NRBC Flagged by Analyzer 0 % (0-5); Neutrophil # 4.34 X10^3/uL (2.7-7.7); Neutrophil % 75.5 % (47-70); Platelet Count 250 K/mm3 (150-450); RBC Distribution Width CV 15.5 % (11.6-14.6); RBC Distribution Width SD 47.6 fl (35.1-43.9); Red Blood Count 4.17 M/mm3 (4.6-6.2); White Blood Count 5.8 K/mm3 (4.4-11.0)
[2024-09-18 10:07] LABS: Erythrocyte Sedimentation Rate 25 mm/hr (0-20)
[2024-09-18 10:59] LABS: AST(SGOT) 26 U/L (<=37); Alanine Aminotransfer ALT/SGPT 18 U/L (<=46); Albumin, Serum 3.8 g/dL (3.4-4.8); Alkaline Phosphatase 81 U/L (40-129); Anion Gap 12 (5-15); BUN 16 mg/dL (4-19); BUN/Creat Ratio 15.4 RATIO (10-20); Calcium,Total 9.3 mg/dL (7.6-11.0); Carbon Dioxide 20.5 mmol/L (21.0-32.0); Chloride 106 mmol/L (98-108); Creatinine, Serum 1.01 mg/dL (0.70-1.20); EST Glomerular Filtration Rate 77 (>60); Globulin 3.6 g/dL (2.2-4.2); Glucose 109 mg/dL (70-99); Protein, Total 7.3 g/dL (5.9-8.4); Sodium Level 138 mmol/L (133-145); Total Bilirubin 0.36 mg/dL (0.00-1.30)
[2024-09-18 11:00] LABS: CRP 3.99 mg/L (0.0-3.0); PSA,Total- Diagnostic < 0.02 ng/mL (0.00-4.00)
== END | disposition home or self-care (01) ==
LOC: LAB 08:16
PROVIDERS: PCP Family Medicine; Referring Provider Family Medicine; Visit Provider Family Medicine
DX: C61 Malignant neoplasm of prostate (principal); L50.9 Urticaria, unspecified
CPT/HCPCS: 80053; 84153; 84443; 85025; 85652; 86140

== ENCOUNTER 2024-10-16 01:50 | Emergency (ER) | payer MEDICARE, OTHER, SELFPAY ==
[2024-10-16 01:50] VITALS: BP 188/100; PULSE 122; RESP 19; TEMP 36.6; O2SAT 98; BMI 27.7
--- NOTE | 2024-10-16 02:59 | EX.ED.DYSGE1 ---
HPI History of Present Illness Chief Complaint: Worthy C/O Informant: patient and spouse/S.O. Narrative Narrative: Patient is a 78-year-old male with past medical history of hypertension as well has prostate cancer requiring prostatectomy and radiation therapy. Since that time he has had issues with urinary retention and had to have a suprapubic catheter placed. Despite having the suprapubic catheter in place he states that will frequently become blocked. He reports that roughly 1 to 2 hours ago he noticed the Worthy catheter was not draining as it had been and it was leaking around the insertion site. With this he felt abdominal discomfort and distention similar to previous bouts of acute retention and therefore comes in for evaluation. [facility] Medical History Hearing loss, left Hearing loss, right Anxiety Depression Chronic indwelling Worthy catheter TIA (transient ischemic attack) Chronic radiation cystitis Worthy catheter in place Wears glasses Cancer Arthritis Non-smoker History of pain when walking History of edema Hypertension Prostate cancer Blood in urine Home Medications ?Medication ?Instructions ?Recorded ?Last Taken ?Type amlodipine 10 mg tablet 10 mg PO DAILY BLOOD PRESSURE 12/08/18 01/13/24 History lisinopril 40 mg tablet 40 mg PO BID BLOOD PRESSURE 12/08/18 01/13/24 History Held on 08/20/24. Instructions: Hold for 5 more days and resume lower dose of lisinopril terazosin 5 mg capsule 5 mg PO QPM BLOOD PRESSURE 12/08/18 01/13/24 History multivit,Ca,min-iron 8 mg-folic 1 tab PO DAILY SUPPLEMENT 11/04/23 01/13/24 History acid 200 mcg-lycopene 600 mcg tablet (A Thru Z Men's Ultimate) L.acidophil,salivari-Bifido 1 cap PO 2XD #0 caps 08/20/24 Unknown Rx bifidum-Strep thermoph 175 mg capsule levofloxacin 500 mg tablet 500 mg PO DAILY 5 days #5 tabs 08/20/24 Unknown Rx Allergy/AdvReac Type Severity Reaction Status Date / Time losartan Allergy Mild Rash Verified 10/16/24 01:50 Sulfa (Sulfonamide Allergy Hives Verified 10/16/24 01:50 Antibiotics) atenolol AdvReac Mild WEAKNESS Verified 10/16/24 01:50 hydrochlorothiazide AdvReac Mild UNKNOWN Verified 10/16/24 01:50 indomethacin (From Indocin) AdvReac Mild GI upset Verified 10/16/24 01:50 Surgical History History of left knee replacement Hx of radical prostatectomy Hx of cystoscopy Hx of colonoscopy Social History household members: spouse housing: house Smoking Status: Never smoker ROS ROS ED Constitutional Constitutional ED: Denies chills or fever(s) ENT ENT ED: Denies sore throat Cardiovascular Cardiovascular: Denies chest pain Respiratory/Chest Respiratory/Chest: Denies cough or dyspnea Gastrointestinal Gastrointestinal: Reports abdominal pain; Denies diarrhea, nausea or vomiting Genitourinary Genitourinary ED: Reports other Details: Positive urinary retention Musculoskeletal Musculoskeletal: Denies back pain Integumentary Denies rash Neurologic Neurologic: Denies headache(s) Hematologic/Lymphatic Hematologic/Lymphatic: Denies easy bleeding or easy bruising EXAM Physical Exam Const Vital Signs: 10/16/24 01:50 10/16/24 03:03 Temperature 98 F 98 F Temperature Source Temporal Pulse Rate 122 H 69 Respiratory Rate 19 H 16 Blood Pressure 188/100 H 128/56 H Blood Pressure Mean 129 80 Pulse Ox 98 99 Oxygen Delivery Method Room Air Positive well nourished and well developed General Appearance ED: well developed; Negative for pallor HEENT HEENT Narrative: Normocephalic atraumatic Eyes PERRL and EOMs intact bilaterally General Eye ED: Negative for scleral icterus Neck supple and no JVD Resp normal respiratory effort and clear to auscultation bilaterally Cardio regular rate and regular rhythm GI non-distended GI Narrative: Abdomen is nondistended with normal active bowel sounds. There is organomegaly noted in the lower mid abdomen/suprapubic region consistent with a distended bladder. There is pain with palpation at this site. The remainder of the abdomen is soft and nonpainful to palpation. There is a ostomy in place in the suprapubic midline consistent with suprapubic catheter placement/surgery that is overall clean dry and intact without secondary findings to suggest infection. Auscultation: normoactive bowel sounds Palpation: soft Back/Spine no CVA tenderness Extremity normal to inspection Neuro oriented x3, CN's II-XII intact bilaterally and no sensory deficits noted Sensorium / Orientation: alert Motor Exam: strength 5/5 throughout Psych mental status grossly normal Skin no rashes or lesions noted General Skin Exam: Negative for jaundice or pallor MDM MDM MDM Narrative Medical decision making narrative: Patient presented to the ER hypertensive and tachycardic which is felt this is most like related the pain from his acute urinary retention. He states symptoms only been present for roughly 1 to 2 hours which would indicate low risk for acute kidney injury. Therefore at this time as he is afebrile and in no acute distress I do not feel there is concern for developing urosepsis either and do not feel the need for imaging or laboratory studies. The patient's previous suprapubic catheter was removed and when this was done there was expression of clear urine through the ostomy indicating that the previous catheter had become obstructed. The abdomen/ostomy was then cleaned with Betadine and a repeat catheter was placed through the suprapubic opening into the bladder. Following placement there was return of clear yellow urine. Patient reported complete resolution of his pain and on repeat evaluation there is no longer organomegaly or tenderness to palpation. With resolution of symptoms his vital signs improved as well indicating the initial abnormalities were related to pain. Therefore at this time as there is been resolution of symptoms stabilization of vitals and no further signs of retention and I also have low risk for secondary infection he is otherwise safe for discharge. History & Record Review Discussion w/independent historian: Patient and Significant other Discharge Plan Triage Chief Complaint: Worthy C/O ED Provider: Reuben Kirkland Dx/Rx/DC Orders Clinical Impression: Suprapubic catheter dysfunction, Hypertension, History of prostate cancer, History of prostatectomy Instructions: Suprapubic Catheter Dc Prescriptions: No Action terazosin 5 MG capsule 5 mg PO QPM amlodipine 10 MG tablet 10 mg PO DAILY lisinopril 40 MG tablet 40 mg PO BID A Thru Z Men's Ultimate 8 mg iron- 200 mcg-600 mcg tablet 1 tab PO DAILY L.acidoph,saliva-B.bif-S.therm 175 mg Capsule 1 cap PO 2XD Qty: 0 0RF Rx Instructions: Puxs-yzf-[id number] for 1 week. levofloxacin 500 mg tablet 500 mg PO DAILY 5 Days Qty: 5 0RF Primary Care Provider: Isaiah Han Referrals: Isaiah Han MD [Primary Care Provider] - Zhao Gilliland MD [Med Staff - Active Staff] - Print Language: [place] Citizen Disposition Disposition: Home, Self Care Discharge Date/Time: 10/16/24 03:11
[2024-10-16 03:03] VITALS: BP 128/56; PULSE 69; RESP 16; TEMP 36.6; O2SAT 99
== END 2024-10-16 03:11 | disposition home or self-care (01) ==
PROVIDERS: Emergency Provider Emergency Medicine; PCP Family Medicine; Visit Provider Emergency Medicine
DX: T83.018A Breakdown (mechanical) of other urinary catheter, initial encounter (principal); R33.9 Retention of urine, unspecified; Y73.8 Miscellaneous gastroenterology and urology devices associated with adverse incidents, not elsewhere classified; I10 Essential (primary) hypertension; Z86.73 Personal history of transient ischemic attack (TIA), and cerebral infarction without residual deficits; Z85.46 Personal history of malignant neoplasm of prostate; Z90.79 Acquired absence of other genital organ(s)
CPT/HCPCS: 99282

== ENCOUNTER 2024-11-13 20:27 | Emergency (ER) | payer MEDICARE, OTHER, SELFPAY ==
[2024-11-13 20:29] VITALS: BP 132/89; PULSE 118; RESP 16; TEMP 36.4; O2SAT 97; BMI 28.0
--- NOTE | 2024-11-13 23:14 | EX.ED.DYSGE1 ---
HPI History of Present Illness Chief Complaint: Complaint Informant: patient and spouse/S.O. Narrative Narrative: 79-year-old male with a history of prostate cancer treated with radiation and chronic suprapubic catheter presenting for emergency room Worthy catheter malfunction. Patient states he noticed decreased urine output in his bag this evening and feels a pressure in the suprapubic region. He has had these complications in the past. He denies any flank pain. No fevers. He follows locally with urology. He attempted to irrigate the Worthy catheter at home with success [facility] Medical History Hearing loss, left Hearing loss, right Anxiety Depression Chronic indwelling Worthy catheter TIA (transient ischemic attack) Chronic radiation cystitis Worthy catheter in place Wears glasses Cancer Arthritis Non-smoker History of pain when walking History of edema Hypertension Prostate cancer Blood in urine Home Medications ?Medication ?Instructions ?Recorded ?Last Taken ?Type amlodipine 10 mg tablet 10 mg PO DAILY BLOOD PRESSURE 12/08/18 01/13/24 History lisinopril 40 mg tablet 40 mg PO BID BLOOD PRESSURE 12/08/18 01/13/24 History Held on 08/20/24. Instructions: Hold for 5 more days and resume lower dose of lisinopril terazosin 5 mg capsule 5 mg PO QPM BLOOD PRESSURE 12/08/18 01/13/24 History multivit,Ca,min-iron 8 mg-folic 1 tab PO DAILY SUPPLEMENT 11/04/23 01/13/24 History acid 200 mcg-lycopene 600 mcg tablet (A Thru Z Men's Ultimate) L.acidophil,salivari-Bifido 1 cap PO 2XD #0 caps 08/20/24 Unknown Rx bifidum-Strep thermoph 175 mg capsule levofloxacin 500 mg tablet 500 mg PO DAILY 5 days #5 tabs 08/20/24 Unknown Rx ciprofloxacin HCl 500 mg tablet 500 mg PO BID 7 days #14 tabs 11/14/24 Unknown Rx (Cipro) Allergy/AdvReac Type Severity Reaction Status Date / Time losartan Allergy Mild Rash Verified 11/13/24 20:31 Sulfa (Sulfonamide Allergy Hives Verified 11/13/24 20:31 Antibiotics) atenolol AdvReac Mild WEAKNESS Verified 11/13/24 20:31 hydrochlorothiazide AdvReac Mild UNKNOWN Verified 11/13/24 20:31 indomethacin (From Indocin) AdvReac Mild GI upset Verified 11/13/24 20:31 Family History no significant family his Surgical History History of left knee replacement Hx of radical prostatectomy Hx of cystoscopy Hx of colonoscopy Social History household members: spouse housing: house Smoking Status: Never smoker ROS ROS ED Constitutional Constitutional ED: Denies chills or weight loss Eyes Eyes: Denies change in vision or diplopia ENT ENT ED: Denies ear pain, rhinorrhea or sore throat Cardiovascular Cardiovascular: Denies chest pain, orthopnea, palpitations or racing heartbeat Respiratory/Chest Respiratory/Chest: Denies cough, dyspnea or orthopnea Gastrointestinal Gastrointestinal: Denies abdominal pain, diarrhea, nausea or vomiting Genitourinary Genitourinary ED: Reports other Details: Urinary retention/ ; Denies dysuria, hematuria or urinary frequency Musculoskeletal Musculoskeletal: Denies arthralgias or myalgias Integumentary Denies abscess or rash Neurologic Neurologic: Denies headache(s) or weakness Psychiatric Psychiatric: Denies anxiety, depression, suicidal ideation or suicidal thoughts Endocrine Endocrinology: Denies polydipsia, polyphagia or polyuria Allergic/Immunologic Allergic/Immunologic ED: Denies mouth swelling, tongue swelling or urticaria EXAM Physical Exam Const Vital Signs: 11/13/24 20:29 11/14/24 00:28 11/14/24 00:37 Temperature 97.6 F L 97.6 F L Temperature Source Oral Pulse Rate 118 H 87 69 Respiratory Rate 16 16 Blood Pressure 132/89 H 117/77 117/77 Blood Pressure Mean 103 90 90 Pulse Ox 97 97 Oxygen Delivery Method Room Air 11/14/24 00:46 Temperature 97.6 F L Temperature Source Pulse Rate 69 Respiratory Rate 16 Blood Pressure 117/77 Blood Pressure Mean 90 Pulse Ox 97 Oxygen Delivery Method Positive well nourished and well developed General Appearance ED: well developed and NAD HEENT Reports normocephalic, head/scalp atraumatic and moist mucous membranes Eyes PERRL and EOMs intact bilaterally Neck no lymphadenopathy, supple and no JVD Resp normal respiratory effort and clear to auscultation bilaterally Cardio regular rate, regular rhythm and no murmurs GI GI Narrative: Distended urinary bladder. Suprapubic catheter in place. Stoma is pink no signs of bleeding. There is no Jamie Vivienne area in the Worthy catheter. Genitalia exam heels without significant findings Auscultation: normoactive bowel sounds Palpation: soft and tender suprapubic Back/Spine no CVA tenderness and normal ROM Extremity normal to inspection General Extremety ED: Negative for edema General Extremity: Negative for edema Neuro oriented x3 and CN's II-XII intact bilaterally Sensorium / Orientation: alert Motor Exam: strength 5/5 throughout Psych mental status grossly normal Mood & Affect: Negative for depressed or tearful Skin no rashes or lesions noted and no wounds MDM MDM MDM Narrative Medical decision making narrative: Differential diagnosis includes but not limited to Worthy catheter malfunction anuria acute kidney injury UTI A 16 [place] Worthy with 30 cc balloon was located outside the department. The old Worthy catheter had the balloon deflated. Catheter was removed and using sterile technique a new Worthy was then inserted. About that clear yellow urine was returned. Worthy catheter deflated to 30 cc with air. Patient tolerated procedure well. Urinalysis sent demonstrates greater than 100 white cells 25-50 red blood cells and 4+ bacteria. This was sent for culture. I spoke with the patient and his . He is feeling better. I do question whether or not he is colonized but given that the catheter clogged off and we had to reinstrument him in with the urinalysis I think it is reasonable that we cover with an antibiotic. His previous hospitalization earlier this year he was discharged home on Levaquin. He states he tolerated that well. I will place him on ciprofloxacin. He has an appointment upcoming with urology next week. Patient to monitor for changes or worsening symptoms and return if need be. History & Record Review Discussion w/independent historian: Patient and Significant other Additional record(s) reviewed:: Prior inpatient record, Prior ED visit and Prior labs Lab Data Labs: Laboratory Results - last 24 hr 11/13/24 23:20 Urine Color Yellow Urine Clarity Cloudy Urine pH 8.0 Ur Specific [place] 1.010 Urine Protein 100 H Urine Glucose (UA) NEGATIVE Urine Ketones Negative Urine Occult Blood 250 H Urine Nitrite Positive H Urine Bilirubin Negative Urine Urobilinogen Normal Ur Leukocyte Esterase 500 H Urine RBC 25-50 SEEN Urine WBC >100 SEEN Ur Squamous Epith Cells 0-5 SEEN Triple Phos Crystals 1+ Urine Bacteria 4+ Hyaline Casts 0-5 SEEN Urine Mucus 1+ Discharge Plan Triage Chief Complaint: Complaint ED Provider: Jorge Alberto Love Dx/Rx/DC Orders Clinical Impression: Malfunction of Worthy catheter, Acute UTI Instructions: UTIs, ED Worthy Catheter, Care, ED Urinary Retention, Male Prescriptions: New ciprofloxacin HCl [Cipro] 500 mg tablet 500 mg PO BID 7 Days Qty: 14 0RF No Action terazosin 5 MG capsule 5 mg PO QPM amlodipine 10 MG tablet 10 mg PO DAILY lisinopril 40 MG tablet 40 mg PO BID A Thru Z Men's Ultimate 8 mg iron- 200 mcg-600 mcg tablet 1 tab PO DAILY L.acidoph,saliva-B.bif-S.therm 175 mg Capsule 1 cap PO 2XD Qty: 0 0RF Rx Instructions: Rmyh-goi-dmnqhby for 1 week. levofloxacin 500 mg tablet 500 mg PO DAILY 5 Days Qty: 5 0RF Primary Care Provider: Isaiah Han Referrals: Isaiah Han MD [Primary Care Provider] - Zhao Gilliland MD [Med Staff - Active Staff] - Keep Guilherme appointment Print Language: Hungarian Disposition Disposition: Home, Self Care Discharge Date/Time: 11/14/24 00:46
[2024-11-14 00:05] LABS: Color, Urine Yellow (Yellow); Glucose, Dipstick NEGATIVE (Normal); Ketone-Dipstick Negative (Negative); Protein-Dipstick 100 mg/dl (Negative); Urine Bilirubin Dipstick Negative (Negative); Urine Clarity Cloudy (Clear)
[2024-11-14 00:06] LABS: Leukocyte Esterase-Dipstick 500 /ul (Negative); Nitrite-Dipstick Positive (Negative); Occult Blood-Urine 250 /ul (Negative); Urine Urobilinogen Normal (Normal)
[2024-11-14 00:08] LABS: Bacteria 4+ /hpf (None Seen); Hyaline Cast 0-5 SEEN /lpf (0-5); Mucous, Urine 1+ /hpf (<or=2+); Red Blood Cells-Urine 25-50 SEEN /hpf (0-5); Squamous Epithelial Cells - UA 0-5 SEEN /hpf (0-5); Triple Phosphate Crystals Ur 1+ /hpf (<or=1+); White Blood Cells >100 SEEN /hpf (0-5)
[2024-11-14 00:28] VITALS: BP 117/77; PULSE 87
[2024-11-14] MEDS: Ciprofloxacin 500 MG Tablet PO (00:33)
[2024-11-14 00:37] VITALS: BP 117/77; PULSE 69; RESP 16; TEMP 36.4; O2SAT 97
[2024-11-14 00:46] VITALS: BP 117/77; PULSE 69; RESP 16; TEMP 36.4; O2SAT 97
== END 2024-11-14 00:46 | disposition home or self-care (01) ==
PROVIDERS: Emergency Provider Emergency Medicine; PCP Family Medicine; Visit Provider Emergency Medicine
DX: T83.091A Other mechanical complication of indwelling urethral catheter, initial encounter (principal); X58.XXXA Exposure to other specified factors, initial encounter; N39.0 Urinary tract infection, site not specified; I10 Essential (primary) hypertension; Z79.899 Other long term (current) drug therapy; Z85.46 Personal history of malignant neoplasm of prostate
CPT/HCPCS: 81001; 87077; 87086; 87088; 87186; 99282; A4216

== ENCOUNTER 2024-11-18 22:24 | Emergency (ER) | payer MEDICARE, OTHER, SELFPAY ==
[2024-11-18 22:26] VITALS: BP 120/82; PULSE 130; RESP 18; TEMP 35.9; O2SAT 97; BMI 28.3
--- OUTSIDE RECORDS SUMMARY | 2024-11-18 22:47 | XMS RPT_ITS | CCD ---
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 Name Role Phone Carlos HOOK MD, Nayan Unavailable Kelvin Han MD Primary Care Provider KELVIN HAN Primary Care Unavailabl shahid Gonzalez MD, Nayan Unavailable Kelvin Han MD Primary Care Provider KELVIN HAN Primary Care Unavailabl e KELVIN HAN Primary Care Unavailabl e MATT GARCIA Attending Unavailable KELVIN HAN Primary Care Unavailabl e MATT GARCIA Attending Unavailable KELVIN HAN Primary Care Unavailabl e KELVIN HAN Primary Care Unavailabl e MATT GARCIA Admitting Unavailable MATT GARCIA Attending Unavailable MATT GARCIA Attending Unavailable KELVIN HAN Primary Care Unavailabl e JULES-UMBERTO HALLY Attending Unavailable KELVIN HAN Primary Care Unavailabl e MATT GARCIA Referring Unavailable KELVIN HAN Primary Care Unavailabl e KELVIN HAN Primary Care Unavailabl Dr. Kelvin Cuadra MD Primary Care Provider Dr. Reuben Kirkland DO Attending Provider Dr. Reuben Kirkland DO Emergency Provider Dr. Kelvin Han MD Attending Provider [phone] Dr. Kelvin Han MD Referring Provider Dr. Kishore Nicolas MD Emergency Provider Dr. Rajinder Acosta DO Admit Provider Unavail able de Jaylon DO, Dr. Calvillo Attending Provider Unav ailable de Jaylon DO, Dr. Calvillo Other Provider Unavail able Darshana HOOK, Dr. Zhao Gabriel Other Provider [phone] Mack HOOK, Dr. Barnes Other Provider Javier HOOK, Dr. Jorgensen Attending Provider Harley HOOK, Dr. Harrington Other Provider Harley HOOK, Dr. Harrington Attending Provider Rossana HOOK, Dr. Enriquez Other Provider Melany HOOK, Dr. Clancy Other Provider Luke HOOK, Dr. Britt Other Provider Kj ALFORD, Dr. Cates Other Provider Tad HOOK, Dr. Rajinder Ward Other Provider Janice HOOK, Dr. Coleman Other Provider Brad HOOK, Dr. Waters Other Provider Adonis HOOK, Dr. Colon Other Provider Nicole HOOK, Dr. Rosario Other Provider [phone] Devon Tavera MD Other Provider [phone] Reuben Bass MD Other Provider [phone] Michael HOOK, Dr. Pagan Other Provider [phone] Aleena HOOK, Dr. Nicole Other [facility] Sepulveda MD, Dr. Andersen Other Provider Leobardo HOOK, Dr. Griffin Other Provider [phone] Kevin Laureano MD Other Provider Elver HOOK, Dr. Alexis Other Provider [phone] Vicente Ordonez DO Other Provider [phone] Edie HOOK, Dr. Win Other Provider Jay HOOK, Dr. Vidales Other Provider Rolando ALFORD, Dr. Wren Other Provider Espinoza HOOK, Dr. Villalobos Other Provider Gerson HOOK, Dr. Mcgrath Other Provider Kj ALFORD, Dr. Cates Attending Provider Sherif ENVIRONMENTAL ATTORNEY-C, Tiffanie Attending Provider Javier HOOK, Dr. Jorgensen Other Provider Harley HOOK, Dr. Harrington Referring Provider Sherlyn Crenshaw Other Provider Guille HOOK, Dr. Colon Primary Care Provider Marita ALFORD, Dr. Alexis Emergency Provider [phone] Reuben Kirkland DO Attending Provider Ivan ALFORD, Dr. Azul Emergency Provider Kelvin Han Referring Unavailable Saúl ENVIRONMENTAL ATTORNEYJohanny Attending Unavailable [facility] [place] Primary Care Unavailable DarshanaZhao Admitting Unavailable DarshanaZhao Attending Unavailable [facility] Unavailable DarshanaZhao Attending Unavailable DarshanaZhao Admitting Unavailable [facility] Un[facility] Unavailable Tigist ENVIRONMENTAL ATTORNEY, Kayce E Referring Unavailabl e Tigist ENVIRONMENTAL ATTORNEY, Kayce E Attending Unavailabl e Tgiist ENVIRONMENTAL ATTORNEY, Kayce E Consulting Unavailabl e Kelvin Han Referring Unavailable [facility] Consulting Unavailable Kelvin Han Attending Unavailable [facility] Unavailable [employer]ist ENVIRONMENTAL ATTORNEY, Kayce E Consulting Unavailabl e Tigist ENVIRONMENTAL ATTORNEY, Kayce E Attending Unavailabl e Tigist ENVIRONMENTAL ATTORNEY, Kayce E Referring Unavailabl e [facility]available Tigist ENVIRONMENTAL ATTORNEY, Kayce E Consulting Unavailabl e Tigist ENVIRONMENTAL ATTORNEY, Kayce E Attending Unavailabl e Ranney[facility] Unavailable Ranney, Christopher Referring Unavailable Hays ENVIRONMENTAL ATTORNEY, Johanny Attending Unavailable [facility] Care Unavailable Saúl FELIPE, Johanny Attending Unavailable [facility] Referring Unavailable [facility] Care Unavailable Reuben Kirkland Attending Unavailable [facility] Care Unavailable Clayton Farrell Attending Unavailable [facility] Care Unavailable Temi Macias Attending Unavailable [facility] Care Unavailable Reuben Kirkland Attending Unavailable [facility] Care Unavailable [facility] Care Unavailable Kishore Nicolas Attending Unavailable Reuben Kirkland Attending Unavailable [facility] Care Unavailable Catracho Rodriguez Attending Unavailable [facility] Unavailable [employer]ist ENVIRONMENTAL ATTORNEY, Kayce E Attending Unavailabl e [facility] Referring Unavailable [facility] Care Unavailable [employer]ist ENVIRONMENTAL ATTORNEY, Kayce E Attending Unavailgordon e Saúl ENVIRONMENTAL ATTORNEY, Johanny Consulting Unavailable [facility] Unavailable [facility] Referring Unavailable [employer] ENVIRONMENTAL ATTORNEY, Kayce E Attending Unavailgordon Hays ENVIRONMENTAL ATTORNEY, Johanny Consulting Unavailable [facility] Unavailable [facility] Referring Unavailable [employer] ENVIRONMENTAL ATTORNEY, Kayce E Consulting Unavailgordon e Nini Lewis Attending Unavailable [facility] Referring Unavailable [facility] Unavailable Jameel Herrera Attending Unavailable Rajinder Acosta Consulting Unavailable Rajinder Acosta Admitting Unavailable [facility] Unavailable Zhao Gilliland Consulting Unavailable Cameron Giron Consulting Unavailable Juany Souza Consulting Unavailable [employer] ENVIRONMENTAL ATTORNEY, Kayce Shahid Consulting Unavailabl e [facility] Care Unavailable Nini Lewis Attending Unavailable [facility] Unavailable [employer] ENVIRONMENTAL ATTORNEY, Kayce E Referring Unavailabl e [employer]ist ENVIRONMENTAL ATTORNEY, Kayce E Attending Unavailabl e [employer]ist ENVIRONMENTAL ATTORNEY, Kayce E Consulting UnavailJuany Appiah Attending Unavailable Rajinder Acosta Consulting Unavailable Rajinder Acosta Admitting Unavailable [facility] Care Unavailable Zhao Gilliland Consulting Unavailable Cameron Giron Consulting Unavailable Juany Souza Consulting Unavailable Rajinder Acosta Attending Unavailable Mina Tracy Consulting Unavailable Aston Mosley Consulting Unavailable Balwinder Butler Consulting Unavailable Darryn Underwood Consulting Unavailable Rajinder Mishra Consulting Unavailable Jared Camacho Consulting Unavailable Jt Salinas Consulting Unavailable Darlene Lamb Consulting UnavailAbraham Vo Consulting Unavailable Devon Tavera Consulting Unavailable Reuben Bass Consulting Unavailable Latasha Rodriguez Consulting Unavailable Bonnie Flood Consulting Unavailable SepulvedaNathaly loo Consulting Unavailable Elias Booth Consulting Unavailable Kevin Laureano Consulting Unavailable Elver, Reuben Consulting Unavailable DheAura zepedaVicente Consulting Unavailable Audelia Irizarry Consulting Unavailable Sobeida Thompson Consulting Unavailable Holger Marshall Consulting Unavailable Wilfredo Doran Consulting Unavailable Alcides Nieto Consulting Unavailable Juany Souza Referring Unavailable Darryn Underwood Attending Unavailable [facility] Unavailable [employer] ENVIRONMENTAL ATTORNEY, Kayce E Referring Unavailabl e [employer] ENVIRONMENTAL ATTORNEY, Kayce E Attending Unavailabl e [employer] ENVIRONMENTAL ATTORNEY, Kayce E Consulting Unavailabl e Zhao Gilliland Referring Unavailable [facility] Unavailable Ambika Espinosa Attending Unavailabl e [employer] ENVIRONMENTAL ATTORNEY, Johanny Referring Unavailable Jethro Rangel Attending Unavailable [facility] Unavailable [employer] ENVIRONMENTAL ATTORNEY, Kayce E Consulting Unavailabl e [employer] ENVIRONMENTAL ATTORNEY, Kayce E Referring Unavailabl e [facility] Unavailable [employer] ENVIRONMENTAL ATTORNEY, Kayce E Attending Unavailabl e [facility] ENVIRONMENTAL ATTORNEY, Johanny Consulting Unavailable [employer] ENVIRONMENTAL ATTORNEY, Kayce E Attending Unavailabl e [employer] ENVIRONMENTAL ATTORNEY, Kayce E Referring Unavailabl e [facility] Unavailable [employer] ENVIRONMENTAL ATTORNEY, Kayce E Attending Unavailabl e [employer] ENVIRONMENTAL ATTORNEY, Kayce E Referring Unavailabl e [facility] ENVIRONMENTAL ATTORNEY, Johanny Consulting Unavailable [facility] Unavailable [facility] Unavailable [employer] ENVIRONMENTAL ATTORNEY, Kayce E Referring Unavailabl e [employer] ENVIRONMENTAL ATTORNEY, Kayce E Attending Unavailabl e [employer] ENVIRONMENTAL ATTORNEY, Kayce E Consulting Unavailabl e [facility] Referring Unavailable Nini Lewis Attending Unavailable [employer] ENVIRONMENTAL ATTORNEY, Kayce E Consulting Unavailabl [facility] Unavailable [employer] ENVIRONMENTAL ATTORNEY, Kayce E Consulting Unavailabl e Cameron Gottlieb Referring Unavailable Cameron Gottlieb Attending Unavailable [facility] Unavailable [employer] ENVIRONMENTAL ATTORNEY, Kayce E Consulting Unavailabl e Cameron Gottlieb Referring Unavailable [facility] Unavailable Cameron Gottlieb Attending Unavailable Jameel Herrera Attending Unavailable Jameel Herrera Consulting Unavailable Tiffanie Gorman Attending Unavailable [facility] Referring Unavailable [facility] Unavailable Nini Lewis Attending Unavailable [employer] ENVIRONMENTAL ATTORNEY, Kayce E Consulting Unavailabl e [employer] ENVIRONMENTAL ATTORNEY, Kayce E Consulting Unavailabl e [employer] ENVIRONMENTAL ATTORNEY, Kayce E Referring Unavailabl e [employer] ENVIRONMENTAL ATTORNEY, Kayce E Attending Unavailabl e [facility] Unavailable [facility] Referring Unavailable [facility] Attending Unavailable [facility] Unavailable [employer]ist ENVIRONMENTAL ATTORNEY, Kayce E Attending Unavailabl e [facility] Unavailable [employer]ist ENVIRONMENTAL ATTORNEY, Kayce E Attending Unavailabl e [facility] Unavailable Zhao Gilliland Referring Unavailable Zhao Gilliland Attending Unavailable [facility] Unavailable Reuben Kirkland Attending Unavailable [facility] Unavailable Jorge Alberto Love Attending Unavailable [facility] Unavailable [employer] ENVIRONMENTAL ATTORNEY, Kayce E Consulting Unavailabl e [employer] ENVIRONMENTAL ATTORNEY, Kayce E Attending Unavailabl e [employer] ENVIRONMENTAL ATTORNEY, Kayce E Referring Unavailabl e [facility] Unavailable [facility] Referring Unavailable [employer] ENVIRONMENTAL ATTORNEY, Kayce E Attending Unavailabl e [facility] Unavailable [employer] ENVIRONMENTAL ATTORNEY, Johanny Consulting Unavailable Nini Lewis Attending Unavailable [facility] Unavailable [facility] Referring Unavailable [facility] ENVIRONMENTAL ATTORNEY, Johanny Consulting Unavailable [employer] ENVIRONMENTAL ATTORNEY, Kayce E Attending Unavailabl e [employer] ENVIRONMENTAL ATTORNEY, Kayce E Referring Unavailabl e [facility] Unavailable [employer] ENVIRONMENTAL ATTORNEY, Kayce E Consulting Unavailabl e [employer] ENVIRONMENTAL ATTORNEY, Kayce E Attending Unavailabl e [employer] ENVIRONMENTAL ATTORNEY, Kayce E Referring [facility]abl e [facility] Kayce Escoto NP Attending Megan Hays ENVIRONMENTAL ATTORNEY, Johanny Consulting Unavailable Kayce Escoto NP Ref[facility] Unavailable Kayce Escoto NP Attending Megan Hays ENVIRONMENTAL ATTORNEY, Johanny Consulting Unavailable Kayce Escoto NP Referring [facility] shahid [facility] Unavailable Allergies Allergy Classification Reported Allergen(s) Allergy Type Date of Onset Reaction(s) Facility (20 sources) Sulfonamides (Antibiotic); Translations: [SULFA (SULFONAMIDE ANTIBIOTICS)] Allergy to substance 12-23-19 05 [facility] (20 sources) Atenolol; Translations: [ATENOLOL] Drug Allergy 12-23-19 05 [facility] (20 sources) hydroCHLOROthiazide; Translations: [HYDROCHLOROTHIAZIDE] Drug Allergy 12-23-19 05 [facility] Comment on above: Pt states did not to lerate (11 sources) Indomethacin Drug Allergy 02-15-20 23 [facility] (11 sources) Losartan Drug Allergy 02-15-20 23 [facility] (14 sources) Indomethacin; Translations: [INDOMETHACIN SODIUM] Drug Allergy 07-28-19 13 [facility] (14 sources) Losartan; Translations: [LOSARTAN POTASSIUM] Drug Allergy 08-20-19 15 [facility] (10 sources) Primaquine; Translations: [8-AMINOQUINOLINES] Drug Allergy 12-23-19 24 [facility] (1 source) Atenolol Drug Allergy 11-14-19 25 [facility] (1 source) hydroCHLOROthiazide Drug Allergy 11-14-19 25 [facility] (1 source) Indomethacin Drug Allergy 11-14-19 25 [facility] (1 source) Losartan Drug Allergy 11-14-19 25 [facility] Medications Current Medications Medication Drug Class(es) Dates Sig (Normalized) Sig (Original) amLODIPine 10 mg oral tablet (20 sources) Dihydropyridine Calcium Channel Carlita Start: 03-03-2017 take 1 tablet by mouth once daily Amlodipine 10 MG tablet Active 10 mg PO DAILY December 08, 2018 12:00am Comment on above: Take 1 tablet by navya th once daily. aspirin 81 mg oral tablet (12 sources) Platelet Aggregation Inhibitor, Nonsteroidal Anti-inflammatory Drug Start: 12-22-2004 take 1 tablet by mouth once daily ASPIRIN 81 MG ORAL TAB Take one (1) tablet daily . 0 12/22/2004 Active Comment on above: Take one (1) tablet daily . ciprofloxacin 500 mg oral tablet (20 sources) Quinolone Antimicrobial Start: 11-14-2024 take 1 tablet by mouth twice daily Ciprofloxacin Hcl (Cipro) 500 mg tablet Active 500 mg PO TWICE A DAY 14 November 14, 2024 12:00am Start: 03-28-2024 End: 04-02-2024 take 1 tablet by mouth twice daily ciprofloxacin HCl (CIPRO) 500 mg tablet Take 1 tablet by mouth two times a day for 5 days. Take leading up to procedure with Dr. Garcia 10 tablet 03/28/2024 04/02/2024 Active Start: 2023 End: 12-06-2023 take 1 tablet by mouth twice daily Ciprofloxacin Hcl (Cipro) 500 mg tablet Discontinued 500 mg PO TWICE A DAY 2023 12:00am December 06, 2023 1:12am Start: 02-20-2023 End: 11-04-2023 take 1 tablet by mouth twice daily Ciprofloxacin Hcl (Cipro) 500 mg tablet Discontinued 500 mg PO TWICE A DAY February 20, 2023 12:00am November 04, 2023 9:15am Start: 12-15-2018 End: 02-14-2023 take 1 tablet by mouth twice daily Ciprofloxacin Hcl (Cipro) 500 mg tablet Discontinued 500 mg PO TWICE A DAY February 02, 2023 12:00am February 14, 2023 1:42pm L.Acidoph,Saliva-B.Bif-S.The rm 175 mg Capsule (4 sources) Start: 08-20-2024 take 1 capsule by mouth twice daily L.Acidoph,Saliva-B.Bif-S.Therm 175 mg Capsule Active 1 NMA PO 2 times daily 0 August 20, 2024 12:00am Ffba-stm-cdstlyz for 1 week. 4-month 1.5 ml leuprolide acetate 20 mg/ml prefilled syringe (20 sources) Pk ado tro pin Rel eas ing Hor mon e Rec ept or Ago nis t Start: 10-14-2015 inject 30 mg by intramusc ular injection every four months leuprolide (LUPRON DEPOT, 4 MONTH,) 30 mg injection Inject 30 mg intramuscularly every 4 months. 1 Each 06/24/2016 Active Comment on above: Inject 30 mg intramu scularly every 4 months. 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 mv with pbw-IH-maprzyzt-gink go (ONE-A-DAY MEN'S 50+ ADVANTAGE) 400-300-120 mcg-mcg-mg tab (12 sources) Start: 04-28-2015 take 1 tablet by mouth once daily mv with bjx-TN-bjzvoofd-ginkgo (ONE-A-DAY MEN'S 50+ ADVANTAGE) 400-300-120 mcg-mcg-mg tab Take 1 tablet by mouth once daily. 90 tablet 3 04/28/2015 Active Comment on above: Take 1 tablet by navya th once daily. Mv,Ca,Rzq-Upvv-Li-Lycopene ( A Thru Z Men's Ultimate) 8 mg iron- 200 mcg-600 mcg tablet (5 sources) Start: 11-04-2023 take 8 tablets by mouth once daily Mv,Ca,Nkf-Gocd-Ep-Lycopene (A Thru Z Men's Ultimate) 8 mg iron- 200 mcg-600 mcg tablet Active 1 {tbl} PO DAILY November 04, 2023 12:00am terazosin 5 mg oral capsule (20 sources) alp schuler- Adr fab rgi c Blo cke r Start: 12-08-2018 take 1 capsule by mouth once daily in the evening Terazosin 5 MG capsule Active 5 mg PO EVERY EVENING December 08, 2018 12:00am Start: 03-03-2017 End: 03-02-2024 take 1 capsule by mouth once daily at bedtime terazosin (HYTRIN) 2 mg capsule Take 1 capsule by mouth daily at bedtime. 90 capsule 03/03/2017 03/02/2024 Discontinued (Dosage adjustment) Comment on above: Take 1 capsule by mo uth daily at bedtime. Completed/Discontinued Medications Medication Drug Class(es) Dates Sig (Normalized) Sig (Original) cephalexin 500 mg oral capsule (8 sources) Cephalosporin Antibacterial Start: 03-01-2023 End: 11-04-2023 take 1 capsule by mouth every eight hours Cephalexin 500 mg capsule Discontinued 500 mg PO Q8H 15 March 01, 2023 12:00am November 04, 2023 9:15am furosemide 20 mg oral tablet (16 sources) Loop Diuretic Start: 11-03-2023 End: 01-11-2024 take 1 tablet by mouth once daily Furosemide 20 mg tablet Discontinued 20 mg PO DAILY November 04, 2023 12:00am January 11, 2024 12:36am On Hold: edema residued gabapentin 100 mg oral capsule (9 sources) Anti-epileptic Agent Start: 02-19-2023 End: 11-04-2023 take 1 capsule by mouth every eight hours Gabapentin 100 mg capsule Discontinued 100 mg PO Q8H February 19, 2023 12:00am November 04, 2023 9:15am ibuprofen 600 mg oral tablet (17 sources) Nonsteroidal Anti-inflammatory Drug Start: 12-15-2018 End: 02-20-2023 take 1 tablet by mouth every six hours as needed for pain Ibuprofen 600 MG tablet Discontinued 600 mg PO EVERY 6 HOURS NEEDED as needed for Pain December 15, 2018 1:45pm February 20, 2023 1:43am phenazopyridine hydrochloride 100 mg oral tablet (17 sources) Start: 12-15-2018 End: 02-14-2023 take 1 tablet by mouth three times daily as needed Phenazopyridine 100 MG tablet Discontinued 100 mg PO 3 TIMES DAILY NEEDED as needed for burning December 15, 2018 1:45pm February 14, 2023 1:43pm Problems Active Problems Problem Classification Problem Date Documented Date Episodic/Chronic Abdominal pain (20 sources) Abdominal pain; Translations: [Unspecified abdominal pain] Onset: 08-30-2024 02-14-2023 Episodic Acute and unspecified renal failure (9 sources) Acute renal failure syndrome; Translations: [Acute kidney failure, unspecified] Onset: 08-30-2024 08-15-2024 Episodic Bacterial infection; unspecified site (9 sources) Bacteremia caused by Gram-negative bacteria; Translations: [Bacteremia] Onset: 08-20-2024 08-17-2024 Episodic Cancer of prostate (20 sources) Malignant tumor of prostate; Translations: [Malignant neoplasm of prostate] Onset: 07-06-2011 02-16-2023 Chronic Cancer of prostate (16 sources) History of malignant neoplasm of prostate; Translations: [Personal history of malignant neoplasm of prostate] Onset: 08-30-2024 08-14-2024 Episodic Complication of device; implant or graft (20 sources) Obstructed indwelling urinary catheter; Translations: [Other mechanical complication of indwelling urethral catheter, initial encounter] Onset: 03-21-2024 02-20-2023 Episodic Diverticulosis and diverticulitis (12 sources) Diverticulosis of colon; Translations: [Diverticulosis of large intestine without perforation or abscess without bleeding] 10-03-2006 Chronic Essential hypertension (20 sources) Benign essential hypertension; Translations: [Essential (primary) hypertension] Onset: 06-01-2021 06-01-2021 Chronic Genitourinary symptoms and ill-defined conditions (5 sources) Male urinary stress incontinence; Translations: [Stress incontinence (female) (male)] Onset: 05-11-2024 12-16-2023 Chronic Genitourinary symptoms and ill-defined conditions (20 sources) Retention of urine; Translations: [Retention of urine, unspecified] Onset: 02-07-2023 02-02-2023 Episodic Hemorrhoids (12 sources) Internal hemorrhoids; Translations: [Other hemorrhoids] 10-03-2006 Episodic Osteoarthritis (12 sources) Osteoarthritis; Translations: [Unspecified osteoarthritis, unspecified site] 12-22-2004 Chronic Other and unspecified benign neoplasm (12 sources) Benign neoplasm of colon; Translations: [Benign neoplasm of colon, unspecified] 10-03-2006 Episodic Other circulatory disease (10 sources) Low blood pressure; Translations: [Hypotension, unspecified] 08-14-2024 Episodic Other circulatory disease (1 source) Hypotension, unspecified; Translations: [Hypotension, unspecified] Onset: 08-30-2024 Episodic Other diseases of bladder and urethra (6 sources) Contracture of bladder neck; 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] 10-15-2023 Chronic Other diseases of bladder and urethra (3 sources) Acquired contracture of bladder neck; 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] 12-16-2023 Chronic Other diseases of bladder and urethra (3 sources) Stricture of bladder neck; 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] 02-28-2024 Chronic Other diseases of bladder and urethra (3 sources) Bladder-neck obstruction; Translations: [Stricture of bladder neck] Onset: 12-16-2023 Chronic Other diseases of bladder and urethra (5 sources) Bladder dysfunction; Translations: [Neuromuscular dysfunction of bladder, unspecified] 12-21-2023 Chronic Other diseases of bladder and urethra (8 sources) Lesion of bladder; Translations: [Bladder disorder, unspecified] 08-15-2024 Chronic Other diseases of bladder and urethra (1 source) Bladder disorder, unspecified; Translations: [Bladder disorder, unspecified] Onset: 08-30-2024 Chronic Other diseases of bladder and urethra (1 source) Neuromuscular dysfunction of bladder, unspecified; Translations: [Neuromuscular dysfunction of bladder, unspecified] Onset: 06-08-2024 Chronic Other inflammatory condition of skin (12 sources) Rosacea; Translations: [Rosacea, unspecified] Onset: 05-19-2009 05-19-2009 Chronic Other nutritional; endocrine; and metabolic disorders (13 sources) Overweight; Translations: [Overweight] Onset: 02-26-2006 02-26-2006 Episodic Other nutritional; endocrine; and metabolic disorders (8 sources) Body mass index 25-29 - overweight; Translations: [Overweight] 08-15-2024 Episodic Residual codes; unclassified (1 source) Acquired absence of other genital organ(s); Translations: [Acquired absence of other genital organ(s)] Onset: 08-30-2024 Episodic Septicemia (except in labor) (19 sources) Sepsis; Translations: [Sepsis, unspecified organism] Onset: 08-30-2024 08-14-2024 Episodic Shock (1 source) Severe sepsis with septic shock; Translations: [Severe sepsis with septic shock] Onset: 08-30-2024 Episodic Unclassified (4 sources) [employer] called the office and they were closed for lunch. Please schedule your follow up appointment. Unclassified (4 sources) For suprapubic catheter. Unclassified (4 sources) As needed. 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 changes due to chronic exposure to nonionizing radiation] Onset: 10-29-2008 10-29-2008 Episodic Deficiency and other anemia (1 source) Anemia, unspecified; Translations: [Anemia, unspecified] Onset: 06-08-2024 Episodic E Codes: Adverse effects of medical care (1 source) Radiological procedure and radiotherapy as the cause of abnormal reaction of the patient, or of later complication, without mention of misadventure at the time of the procedure; Translations: [Radiological procedure and radiotherapy as the cause of abnormal reaction of the patient, or of later complication, without mention of misadventure at the time of the procedure] Onset: 06-08-2024 Episodic Hyperplasia of prostate (20 sources) Benign prostatic hypertrophy with outflow obstruction; Translations: [Benign prostatic hyperplasia with lower urinary tract symptoms] Onset: 05-25-2007 Resolved: 11-24-2011 11-24-2011 Chronic Other and unspecified benign neoplasm (12 sources) Melanocytic nevus of trunk; Translations: [Melanocytic nevi of trunk] Onset: 05-19-2009 05-19-2009 Episodic Other circulatory disease (12 sources) Spider nevus; Translations: [Nevus, non-neoplastic] Onset: 05-19-2009 05-19-2009 Episodic Other inflammatory condition of skin (1 source) Pruritus, unspecified; Translations: [Pruritus, unspecified] Onset: 08-01-2024 Episodic Other screening for suspected conditions (not mental disorders or infectious disease) (20 sources) Patient encounter status; Translations: [Encounter for screening for malignant neoplasm of colon] Onset: 05-09-2006 Resolved: 08-10-2011 11-21-2015 Episodic Other skin disorders (12 sources) Seborrheic keratosis; Translations: [Other seborrheic keratosis] Onset: 10-29-2008 10-29-2008 Episodic Other skin disorders (12 sources) Actinic keratosis; Translations: [Actinic keratosis] Onset: 05-19-2009 05-19-2009 Episodic Other skin disorders (12 sources) Solar lentigo; Translations: [Other melanin hyperpigmentation] Onset: 05-19-2009 05-19-2009 Episodic Results Test Name Value Interpretation Reference Range Facility Urine Cultureon 11-15-2024 URC Identification and sensitivity to follow. Gram negative aziza [place] Count >100,000 Normal [facility] Comment on above: Performed By: #### M 100.2200 ####[facility] [address] [place], [address] Urinalysis, Completeon 11-14 BACTERIA 4+ /hpf Normal None Seen [facility] Comment on above: Order Comment: JAY CTOR TO SPECIFY Performed By: #### L 400.0001 ####[facility] [address] [place], [address] CAST,HYALINE 0-5 SEEN Normal 0-5 [facility] Comment on above: Order Comment: JAY CTOR TO SPECIFY Performed By: #### L 400.0001 ####[facility] [address] [place], [address] EPI,SQUAMOUS 0-5 SEEN Normal 0-5 [facility] Comment on above: Order Comment: JAY CTOR TO SPECIFY Performed By: #### L 400.0001 ####[facility] [address] [place], [address] Mucus Ql (Urine sed) 1+ /hpf Normal [facility] Comment on above: Order Comment: JAY CTOR TO SPECIFY Performed By: #### L 400.0001 ####[facility] [address] [place], [address] RBC 25-50 SEEN Normal 0-5 [facility] Comment on above: Order Comment: JAY CTOR TO SPECIFY Performed By: #### L 400.0001 ####[facility] [address] [place], [address] TRIPLE PHOS 1+ /hpf Normal [facility] Comment on above: Order Comment: JAY CTOR TO SPECIFY Performed By: #### L 400.0001 ####[facility] [address] [place], [address] WBC >100 SEEN Normal 0-5 [facility] Comment on above: Order Comment: JAY CTOR TO SPECIFY Performed By: #### L 400.0001 ####[facility] [address] [place], [address] LEUK ESTERASE 500 /ul Abnormal Negative [facility] Comment on above: Order Comment: JAY CTOR TO SPECIFY Performed By: #### L 400.0001 ####[facility] [address] [place], [address] Nitrite Ql (U) Positive Abnormal Negative [facility] Comment on above: Order Comment: JAY CTOR TO SPECIFY Performed By: #### L 400.0001 ####[facility] [address] [place], [address] OCCULT BLOOD-UR 250 /ul Abnormal Negative [facility] Comment on above: Order Comment: JAY CTOR TO SPECIFY Performed By: #### L 400.0001 ####[facility] [address] [place], [address] UROBILI Normal Normal Normal [facility] Comment on above: Order Comment: JAY CTOR TO SPECIFY Performed By: #### L 400.0001 ####[facility] [address] [place], [address] BILIRUBIN URINE Negative Normal Negative [facility] Comment on above: Order Comment: JAY CTOR TO SPECIFY Performed By: #### L 400.0001 ####[facility] [address] [place], [address] Clarity (U) Cloudy Normal Clear [facility] Comment on above: Order Comment: JAY CTOR TO SPECIFY Performed By: #### L 400.0001 ####[facility] [address] [place], [address] Color (U) Yellow Normal Yellow [facility] Comment on above: Order Comment: JAY CTOR TO SPECIFY Performed By: #### L 400.0001 ####[facility] [address] [place], [address] GLUCOSE, UR Negative Normal Normal [facility] Comment on above: Order Comment: JAY CTOR TO SPECIFY Performed By: #### L 400.0001 ####[facility] [address] [place], [address] KETONE UR Negative Normal Negative [facility] Comment on above: Order Comment: JAY CTOR TO SPECIFY Performed By: #### L 400.0001 ####[facility] [address] [place], [address] pH UR 8.0 Normal 5.0 - 8.0 [facility] Comment on above: Order Comment: JAY CTOR TO SPECIFY Performed By: #### L 400.0001 ####[facility] [address] [place], [address] PROT DIPSTX 100 mg/dl Abnormal Negative [facility] Comment on above: Order Comment: JAY CTOR TO SPECIFY Performed By: #### L 400.0001 ####[facility] [address] [place], [address] SP.GR. DIPSTX 1.010 Normal 1.002-1.030 [facility] Comment on above: Order Comment: JAY CTOR TO SPECIFY Performed By: #### L 400.0001 ####[facility] [address] [place], [address] Bilirubin Test strip Ql (U)O rdered By: Jorge Alberto Love on 11-13-2024 Bilirubin Ql (U) Negative Negative [facility] Emergency Department Summary on 11-13-2024 Emergency Department Summary Normal [facility] Hyaline casts LM.LPF (Urine sed) [#/Area]Ordered By: Jorge Alberto Love on 11-13-2024 Hyaline casts (Urine sed) [#/Area] 0 /[LPF] 0-5 [facility] Ketones Test strip Ql (U)Ord ered By: Jorge Alberto Love on 11-13-2024 Ketones Ql (U) Negative Negative [facility] Microscopic analysis of urin e for red blood cells (RBC)Ordered By: Jorge Alberto Love on 11-13-2024 Microscopic analysis of urine for red blood cells (RBC) 25-50 SEEN /hpf 0-5 [facility] Mucus LM Ql (Urine sed)Order ed By: Jorge Alberto Love on 11-13-2024 Mucus Ql (Urine sed) 1+ /hpf [facility] Nitrite Test strip Ql (U)Ord ered By: Jorge Alberto Love on 11-13-2024 Nitrite Ql (U) Positive High Negative [facility] Protein Test strip Ql (U)Ord ered By: Jorge Alberto Love on 11-13-2024 Protein Ql (U) 100 mg/dl High Negative [facility] Squamous epithelial cells de tection in urine sediment by light microscopyOrdered By: Jorge Alberto Love on 11-13-2024 Epithelial cells.squamous LM Ql (Urine sed) 0-5 SEEN /hpf 0-5 [facility] Triple phosphate crystals de tection in urine sediment by light microscopyOrdered By: Jorge Alberto Love on 11-13-2024 Triple phosphate crystals LM Ql (Urine sed) 1+ /hpf [facility] Urine clarityOrdered By: Scott Love on 11-13-2024 Clarity (U) Cloudy Clear [facility] Urine color determinationOrd ered By: Jorge Alberto Love on 11-13-2024 Color (U) Yellow Yellow [facility] Urine glucose detectionOrder ed By: oJrge Alberto Love on 11-13-2024 Glucose Ql (U) Negative Normal [facility] Urine leukocyte esterase det ection by dipstickOrdered By: Jorge Alberto Love on 11-13-2024 Leukocyte esterase Test strip Ql (U) 500 /ul High Negative [facility] Urine pHOrdered By: Jorge Alberto whatley on 11-13-2024 pH (U) 8.0 [pH] 5.0 - 8.0 [facility] Urine sediment bacteria coun t by microscopy (number/high power field)Ordered By: Jorge Alberto Love on 11-13-2024 Bacteria LM.HPF (Urine sed) [#/Area] 4 /[HPF] None Seen [facility] Urine specific gravity measu rementOrdered By: Jorge Alberto Love on 11-13-2024 Specific gravity (U) [Rel density] 1.010 1.002-1.030 [facility] Urine urobilinogen measureme ntOrdered By: Jorge Alberto Love on 11-13-2024 Urobilinogen Ql (U) Normal mg/dl Normal [facility] White blood cell countOrdere d By: Jorge Alberto Love on 11-13-2024 White blood cell count >100 SEEN /hpf 0-5 [facility] Emergency Department Summary on 10-16-2024 Emergency Department Summary Normal [facility] CELSA w/Comprehensiveon 2024 CELSA TABLE Comment Normal . [facility] Comment on above: Result Comment: Auto antibody Disease Association Condition Frequency Antinuclear Antibody, SLE, mixed connectiveDirect (CELSA-D) tissue diseases dsDNA SLE 40 - 60% Chromatin Drug induced SLE 90% SLE 48 - 97% SSA (Ro) SLE 25 - 35% Sjogren's Syndrome 40 - 70% Lupus 100% SSB (La) SLE 10% Sjogren's Syndrome 30% Sm (anti-Hodges) SLE 15 - 30% RNP Mixed Connective Tissue Disease 95%(U1 nRNP, SLE 30 - 50%anti-ribonucleoprotein) Polymyositis and/or Dermatomyositis 20% Scl-70 (antiDNA Scleroderma (diffuse) 20 - 35%topoisomerase) Crest 13% Jo-1 Polymyositis and/or Dermatomyositis 20 - 40% Centromere B Scleroderma - Crest variant 80% Ribosomal P SLE 10 - 20%Performed at: [facility] [id number] [place], [place] [id number] Director: Basilio Ricci PhD, Phone: [phone] AMENDED REPORT 09/25/241107 COMMENT previously reported as: Test not performed Performed By: #### L 3100.5430, L3100.5440, L501.9940 ####[facility] [address] [place], [place], [address] ANTI-CENT B AB <0.2 Normal 0.0-0.9 [facility] Comment on above: Result Comment: AMENDED REPORT 09/25/241107 ANTI-CENT B previously reported as: Test not performed Performed By: #### L 3100.5430, L3100.5440, L501.9940 ####[facility] [address] [place], [place], [address] ANTI-DNA (DS)AB 3 IU/mL Normal 0-9 [facility] Comment on above: Result Comment: Nega tive <5 Equivocal 5 - 9 Positive >9 AMENDED REPORT 09/25/241107 dsDNA AB previously reported as: Test not performed Performed By: #### L 3100.5430, L3100.5440, L501.9940 ####[facility] [address] [place], [place], [id number] ANTI-MISTY-1 <0.2 Normal 0.0-0.9 [facility] Comment on above: Result Comment: AMENDED REPORT 09/25/241107 ANTI-MISTY previously reported as: Test not performed Performed By: #### L 3100.5430, L3100.5440, L501.9940 ####[facility] [address] [place], [address] ANTI-SS-A > 8.0 High 0.0-0.9 [facility] Comment on above: Result Comment: AMENDED REPORT 09/25/241107 Anti-SS-A previously reported as: Test not performed Performed By: #### L 3100.5430, L3100.5440, L501.9940 ####[facility] [address] [place], [address] ANTI-SS-B < 0.2 Normal 0.0-0.9 [facility] Comment on above: Result Comment: AMENDED REPORT 09/25/241107 Anti-SS-B previously reported as: Test not performed Performed By: #### L 3100.5430, L3100.5440, L501.9940 ####[facility] [address] [place], [address] ANTICHROMATIN 0.2 AI Normal 0.0-0.9 [facility] Comment on above: Result Comment: AMENDED REPORT 09/25/241107 ANTICHROMATIN previously reported as: Test not performed Performed By: #### L 3100.5430, L3100.5440, L501.9940 ####[facility] [address] [place], [address] Antiribosomal P 0.3 AI Normal 0.0-0.9 [facility] Comment on above: Result Comment: AMENDED REPORT 09/25/241107 Anti-P previously reported as: Test not performed Performed By: #### L 3100.5430, L3100.5440, L501.9940 ####[facility] [address] [place], [address] ANTISCLERODERM <0.2 Normal 0.0-0.9 [facility] Comment on above: Result Comment: AMENDED REPORT 04/22/25 1108 ANTISCLER previously reported as: Test not performed Performed By: #### L 3100.5430, L3100.5440, L501.9940 ####[facility] [address] [place], [address] [employer] PERFORMANCE ENGINEER Ab <0.2 Normal 0.0-0.9 [facility] Comment on above: Result Comment: AMENDED REPORT 09/25/241107 [employer] PERFORMANCE ENGINEER Ab previously reported as: Test not performed Performed By: #### L 3100.5430, L3100.5440, L501.9940 ####[facility] [address] [place], [address] HODGES Ab <0.2 Normal 0.0-0.9 [facility] Comment on above: Result Comment: AMENDED REPORT 09/25/241107 HODGES Ab previously reported as: Test not performed Performed By: #### L 3100.5430, L3100.5440, L501.9940 ####[facility] [address] [place], [address] HODGES/WIND TURBINE PERFORMANCE ENGINEER Ab <0.2 Normal 0.0-0.9 [facility] Comment on above: Result Comment: AMENDED REPORT 09/25/241107 HODGES/WIND TURBINE PERFORMANCE ENGINEER Ab previously reported as: Test not performed Performed By: #### L 3100.5430, L3100.5440, L501.9940 ####[facility] [address] [place], [address] CBC W/Diff, Automatedon - PATH REV Reviewed Normal [facility] Comment on above: Result Comment: SEE REPORT IN PATIENT'S EMR AMENDED REPORT 09/19/24 1353 PATH REV previously reported as: May foll Performed By: #### L 100.0100, L500.2500 ####[facility] [address] [place], [address] CELSA Comprehensive Panelon CELSA TABLE TNP Normal [facility] Comment on above: Order Comment: MISAEL Manuel NOWS WHAT THIS GOES TO :) Result Comment: . Performed By: #### L 3100.5430, L3100.5440, L501.9940 ####[facility] [address] [place], [address] ANTI-CENT B AB TNP Normal [facility] Comment on above: Order Comment: MISAEL Manuel NOWS WHAT THIS GOES TO :) Result Comment: . Performed By: #### L 3100.5430, L3100.5440, L501.9940 ####[facility] [address] [place], [address] ANTI-DNA (DS)AB TNP Normal [facility] Comment on above: Order Comment: MISAEL Manuel NOWS WHAT THIS GOES TO :) Result Comment: . Performed By: #### L 3100.5430, L3100.5440, L501.9940 ####[facility] [address] [place], [address] ANTI-MISTY-1 TNP Normal [facility] Comment on above: Order Comment: MISAEL Manuel NOWS WHAT THIS GOES TO :) Result Comment: . Performed By: #### L 3100.5430, L3100.5440, L501.9940 ####[facility] [address] [place], [address] ANTI-SS-A TNP Normal [facility] Comment on above: Order Comment: MISAEL Manuel NOWS WHAT THIS GOES TO :) Result Comment: . Performed By: #### L 3100.5430, L3100.5440, L501.9940 ####[facility] [address] [place], [address] ANTI-SS-B TNP Normal [facility] Comment on above: Order Comment: MISAEL Manuel NOWS WHAT THIS GOES TO :) Result Comment: . Performed By: #### L 3100.5430, L3100.5440, L501.9940 ####[facility] [address] [place], [address] ANTICHROMATIN TNP Normal [facility] Comment on above: Order Comment: MISAEL Manuel NOWS WHAT THIS GOES TO :) Result Comment: . Performed By: #### L 3100.5430, L3100.5440, L501.9940 ####[facility] [address] [place], [address] ANTISCLERODERM TNP Normal [facility] Comment on above: Order Comment: MISAEL Manuel NOWS WHAT THIS GOES TO :) Result Comment: . Performed By: #### L 3100.5430, L3100.5440, L501.9940 ####[facility] [address] [place], [address] W[employer]UR[employer] PERFORMANCE ENGINEER Ab TNP Normal [facility] Comment on above: Order Comment: MISAEL Manuel NOWS WHAT THIS GOES TO :) Result Comment: . Performed By: #### L 3100.5430, L3100.5440, L501.9940 ####[facility] [address] [place], [address] HODGES Ab TNP Normal [facility] Comment on above: Order Comment: MISAEL Manuel NOWS WHAT THIS GOES TO :) Result Comment: . Performed By: #### L 3100.5430, L3100.5440, L501.9940 ####[facility] [address] [place], [address] Absolute lymphocyte countOrd ered By: Kelvin Han on 09-18-2024 Lymphocytes Auto (Unsp spec) [#/Vol] 0.79 10*3/uL Low 0.83-4.51 [facility] Absolute neutrophil countOrd ered By: Kelvin Han on 09-18-2024 Neutrophils (Bld) [#/Vol] 4.3 10*3/uL 2.0-7.7 [facility] Anion gap in Serum or Plasma Ordered By: Kelvin Han on 09-18-2024 Anion gap [Moles/Vol] 12 mmol/L 10-18 [facility] Automated lymphocyte count a s percentage of total leukocytesOrdered By: Kelvin aHn on 09-18-2024 Lymphocytes/100 WBC Auto (Unsp spec) 13.7 % Low 19- [facility] BUN/creatinine ratioOrdered By: Kelvin Han on 09-18-2024 Urea nitrogen/Creatinine [Mass ratio] 15.4 mg/mg 10- [facility] Basophil percentageOrdered B y: Kelvin Han on 09-18-2024 Basophils/100 WBC (Bld) 0.2 % 0-1 [facility] Bilirubin, totalOrdered By: Kelvin Han on 09-18-2024 Bilirubin [Mass/Vol] 0.36 mg/dL 0.00-1.30 [facility] CBC W/Diff, Automatedon 09-04 Absolute Lymph 0.79 X10 3/uL Low 0.83-4.51 [facility] Comment on above: Order Comment: Order Date: 09/17/24Order Info: [id number] - CBCDOrder Info: [id number] - SED Performed By: #### L 101.9900, L100.0100, L500.4050, L501.9520 ####[facility] [address] [place], [address] Absolute Neut 4.3 X10 3/uL Normal 2.0-7.7 [facility] Comment on above: Order Comment: Order Date: 09/17/24Order Info: [id number] - CBCDOrder Info: [id number] - SED Performed By: #### L 101.9900, L100.0100, L500.4050, L501.9520 ####[facility] [address] [place], [address] Basophils/100 WBC (Bld) 0.2 % Normal 0-1 [facility] Comment on above: Order Comment: Order Date: 09/17/24Order Info: [id number] - CBCDOrder Info: [id number] - SED Performed By: #### L 101.9900, L100.0100, L500.4050, L501.9520 ####[facility] [address] [place], [address] Eosinophils/100 WBC (Bld) 1.2 % Normal 0-5 [facility] Comment on above: Order Comment: Order Date: 09/17/24Order Info: 183- - CBCDOrder Info: [id number] - SED Performed By: #### L 101.9900, L100.0100, L500.4050, L501.9520 ####[facility] [address] [place], [address] Erythrocyte distribution width (RBC) [Ratio] 15.5 % High 11.6-14.6 [facility] Comment on above: Order Comment: Order Date: 09/17/24Order Info: [id number] - CBCDOrder Info: [id number] - SED Performed By: #### L 101.9900, L100.0100, L500.4050, L501.9520 ####[facility] [address] [place], [address] Hematocrit (Bld) [Volume fraction] 35.2 % Low 40-54 [facility] Comment on above: Order Comment: Order Date: 09/17/24Order Info: 183-06 - CBCDOrder Info: [id number] - SED Performed By: #### L 101.9900, L100.0100, L500.4050, L501.9520 ####[facility] [address] [place], [address] Hemoglobin (Bld) [Mass/Vol] 11.9 g/dL Low 13.0-16.5 [facility] Comment on above: Order Comment: Order Date: 09/17/24Order Info: [id number] - CBCDOrder Info: [id number] - SED Performed By: #### L 101.9900, L100.0100, L500.4050, L501.9520 ####[facility] [address] [place], [address] IG% 0.700 Normal 0.0-0.9 [facility] Comment on above: Order Comment: Order Date: 09/17/24Order Info: 183- - CBCDOrder Info: [id number] - SED Result Comment: IG% - Immature Granulocytes (promyelocytes, myelocytes andmetamyelocytes) > 1% indicates that a LEFT SHIFT is Present. Performed By: #### L 101.9900, L100.0100, L500.4050, L501.9520 ####[facility] [address] [place], [address] Lymphocytes/100 WBC (Bld) 13.7 % Low 19-41 [facility] Comment on above: Order Comment: Order Date: 09/17/24Order Info: 018- - CBCDOrder Info: [id number] - SED Performed By: #### L 101.9900, L100.0100, L500.4050, L501.9520 ####[facility] [address] [place], [address] MCH (RBC) [Entitic mass] 28.5 pg Normal 27.0-32.0 [facility] Comment on above: Order Comment: Order Date: 09/17/24Order Info: 018- - CBCDOrder Info: [id number] - SED Performed By: #### L 101.9900, L100.0100, L500.4050, L501.9520 ####[facility] [address] [place], [address] MCHC (RBC) [Mass/Vol] 33.8 g/dL Normal 32-36 [facility] Comment on above: Order Comment: Order Date: 09/17/24Order Info: 018- - CBCDOrder Info: [id number] - SED Performed By: #### L 101.9900, L100.0100, L500.4050, L501.9520 ####[facility] [address] [place], [address] MCV (RBC) [Entitic vol] 84.4 fL Normal 80-94 [facility] Comment on above: Order Comment: Order Date: 09/17/24Order Info: 183- - CBCDOrder Info: [id number] - SED Performed By: #### L 101.9900, L100.0100, L500.4050, L501.9520 ####[facility] [address] [place], [address] Monocytes/100 WBC (Bld) 8.7 % Normal 0-10 [facility] Comment on above: Order Comment: Order Date: 09/17/24Order Info: 183-06 - CBCDOrder Info: [id number] - SED Performed By: #### L 101.9900, L100.0100, L500.4050, L501.9520 ####[facility] [address] [place], [address] Neutrophils/100 WBC (Bld) 75.5 % High 47-70 [facility] Comment on above: Order Comment: Order Date: 09/17/24Order Info: 183-06 - CBCDOrder Info: [id number] - SED Performed By: #### L 101.9900, L100.0100, L500.4050, L501.9520 ####[facility] [address] [place], [address] Nucleated RBC (Bld) [#/Vol] 0 10*3/uL Normal 0-5 [facility] Comment on above: Order Comment: Order Date: 09/17/24Order Info: 183-06 - CBCDOrder Info: [id number] - SED Performed By: #### L 101.9900, L100.0100, L500.4050, L501.9520 ####[facility] [address] [place], [address] Platelet mean volume (Bld) [Entitic vol] 10.7 fL Normal 6.2-12.0 [facility] Comment on above: Order Comment: Order Date: 09/17/24Order Info: 183- - CBCDOrder Info: [id number] - SED Performed By: #### L 101.9900, L100.0100, L500.4050, L501.9520 ####[facility] [address] [place], [address] Platelets (Bld) [#/Vol] 250 10*3/uL Normal 150-450 [facility] Comment on above: Order Comment: Order Date: 09/17/24Order Info: 183- - CBCDOrder Info: [id number] - SED Performed By: #### L 101.9900, L100.0100, L500.4050, L501.9520 ####[facility] [address] [place], [address] RBC (Bld) [#/Vol] 4.17 10*6/uL Low 4.6-6.2 [facility] Comment on above: Order Comment: Order Date: 09/17/24Order Info: 183-06 - CBCDOrder Info: [id number] - SED Performed By: #### L 101.9900, L100.0100, L500.4050, L501.9520 ####[facility] [address] [place], [address] RDW SD 47.6 fl High 35.1-43.9 [facility] Comment on above: Order Comment: Order Date: 09/17/24Order Info: 183- - CBCDOrder Info: [id number] - SED Performed By: #### L 101.9900, L100.0100, L500.4050, L501.9520 ####[facility] [address] [place], [address] WBC (Bld) [#/Vol] 5.8 10*3/uL Normal 4.4-11.0 [facility] Comment on above: Order Comment: Order Date: 09/17/24Order Info: [id number] - CBCDOrder Info: [id number] - SED Performed By: #### L 101.9900, L100.0100, L500.4050, L501.9520 ####[facility] [address] [place], [address] CRPon 09-18-2024 C-REACTIVE PROT 3.99 mg/L High 0.0-3.0 [facility] Comment on above: Order Comment: Order Date: 09/17/24Order Info: [id number] - CMPOrder Info: [id number] - CRPOrder Info: [id number] - TSH Performed By: #### L 501.6710 ####[facility] [address] [place], [address] CRP [Mass/Vol]Ordered By: Itzel Han on 09-18-2024 C-Reactive Protein Extended Range 3.99 mg/L High 0.0-3.0 [facility] Carbon dioxide, total [Moles /volume] in Central venous bloodOrdered By: Kelvin Han on 09-18-2024 CO2 [Moles/Vol] 20.5 mmol/L Low 21.0-32.0 [facility] Centromere B antibody assayO rdered By: Kelvin Han on 09-18-2024 Centromere B Antibody TNP [facility] Comment on above: Test not performed Chloride assayOrdered By: Itzel Han on 09-18-2024 Chloride [Moles/Vol] 106 mmol/L 98-108 [facility] Chromatin antibody assayOrde red By: Kelvin Han on 09-18-2024 Antichromatin Antibodies TNP [facility] Comment on above: Test not performed Comprehensive Metabolic Prof ilon 09-18-2024 Albumin [Mass/Vol] 3.8 g/dL Normal 3.4-4.8 [facility] Comment on above: Order Comment: Order Date: 09/17/24Order Info: [id number] - CMPOrder Info: [id number] - CRPOrder Info: 3015-3 - TSH Performed By: #### L 101.9900, L100.0100, L500.4050, L501.9520 ####[facility] [address] [place], [address] Albumin/Globulin [Mass ratio] 1.0 {ratio} Normal 0.9-2.4 [facility] Comment on above: Order Comment: Order Date: 09/17/24Order Info: [id number] - CMPOrder Info: [id number] - CRPOrder Info: [id number] - TSH Performed By: #### L 101.9900, L100.0100, L500.4050, L501.9520 ####[facility] [address] [place], [address] ALK PHOS 81 U/L Normal 40-129 [facility] Comment on above: Order Comment: Order Date: 09/17/24Order Info: [id number] - CMPOrder Info: [id number] - CRPOrder Info: [id number] - TSH Performed By: #### L 101.9900, L100.0100, L500.4050, L501.9520 ####[facility] [address] [place], [address] ALT [Catalytic activity/Vol] 18 U/L Normal <=46 [facility] Comment on above: Order Comment: Order Date: 09/17/24Order Info: [id number] - CMPOrder Info: [id number] - CRPOrder Info: 3015-3 - TSH Performed By: #### L 101.9900, L100.0100, L500.4050, L501.9520 ####[facility] [address] [place], [address] AST [Catalytic activity/Vol] 26 U/L Normal <=37 [facility] Comment on above: Order Comment: Order Date: 09/17/24Order Info: [id number] - CMPOrder Info: [id number] - CRPOrder Info: 301-3 - TSH Performed By: #### L 101.9900, L100.0100, L500.4050, L501.9520 ####[facility] [address] [place], [address] Bilirubin [Mass/Vol] 0.36 mg/dL Normal 0.00-1.30 [facility] Comment on above: Order Comment: Order Date: 09/17/24Order Info: 0786-1 - CMPOrder Info: [id number] - CRPOrder Info: 3015-3 - TSH Performed By: #### L 101.9900, L100.0100, L500.4050, L501.9520 ####[facility] [address] [place], [address] BUN/CRE 15.4 RATIO Normal 10-20 [facility] Comment on above: Order Comment: Order Date: 09/17/24Order Info: 0786-1 - CMPOrder Info: [id number] - CRPOrder Info: 3016-3 - TSH Performed By: #### L 101.9900, L100.0100, L500.4050, L501.9520 ####[facility] [address] [place], [address] Calcium [Mass/Vol] 9.3 mg/dL Normal 7.6-11.0 [facility] Comment on above: Order Comment: Order Date: 09/17/24Order Info: 0786-1 - CMPOrder Info: [id number] - CRPOrder Info: 3016-3 - TSH Performed By: #### L 101.9900, L100.0100, L500.4050, L501.9520 ####[facility] [address] [place], [address] Chloride [Moles/Vol] 106 mmol/L Normal 98-108 [facility] Comment on above: Order Comment: Order Date: 09/17/24Order Info: 0786-1 - CMPOrder Info: [id number] - CRPOrder Info: 3015-3 - TSH Performed By: #### L 101.9900, L100.0100, L500.4050, L501.9520 ####[facility] [address] [place], [address] CO2 [Moles/Vol] 20.5 mmol/L Low 21.0-32.0 [facility] Comment on above: Order Comment: Order Date: 09/17/24Order Info: 0786-1 - CMPOrder Info: [id number] - CRPOrder Info: 3 - TSH Performed By: #### L 101.9900, L100.0100, L500.4050, L501.9520 ####[facility] [address] [place], [address] Creatinine [Mass/Vol] 1.01 mg/dL Normal 0.70-1.20 [facility] Comment on above: Order Comment: Order Date: 09/17/24Order Info: 07-1 - CMPOrder Info: [id number] - CRPOrder Info: 3015-3 - TSH Performed By: #### L 101.9900, L100.0100, L500.4050, L501.9520 ####[facility] [address] [place], [address] GAP 12 Normal 5-15 [facility] Comment on above: Order Comment: Order Date: 09/17/24Order Info: 0786-1 - CMPOrder Info: [id number] - CRPOrder Info: 3015-3 - TSH Performed By: #### L 101.9900, L100.0100, L500.4050, L501.9520 ####[facility] [address] [place], [address] GFR/1.73 sq M.predicted among non-blacks MDRD (S/P/Bld) [Vol rate/Area] 77 mL/min/{1.73_m2} Normal >60 [facility] Comment on above: Order Comment: Order Date: 09/17/24Order Info: 0786-1 - CMPOrder Info: [id number] - CRPOrder Info: 3015-3 - TSH Result Comment: mL/m in/1.73m2 CKD-EPI Creatinine Equation (2020) Performed By: #### L 101.9900, L100.0100, L500.4050, L501.9520 ####[facility] [address] [place], [address] Globulin (S) [Mass/Vol] 3.6 g/dL Normal 2.2-4.2 [facility] Comment on above: Order Comment: Order Date: 09/17/24Order Info: [id number]- - CMPOrder Info: [id number] - CRPOrder Info: 3 - TSH Performed By: #### L 101.9900, L100.0100, L500.4050, L501.9520 ####[facility] [address] [place], [address] Glucose [Mass/Vol] 109 mg/dL High 70-99 [facility] Comment on above: Order Comment: Order Date: 09/17/24Order Info: 0786-1 - CMPOrder Info: [id number] - CRPOrder Info: 3015-3 - TSH Performed By: #### L 101.9900, L100.0100, L500.4050, L501.9520 ####[facility] [address] [place], [address] Potassium [Moles/Vol] 4.0 mmol/L Normal 3.3-5.1 [facility] Comment on above: Order Comment: Order Date: 09/17/24Order Info: 0786-1 - CMPOrder Info: [id number] - CRPOrder Info: 3 - TSH Performed By: #### L 101.9900, L100.0100, L500.4050, L501.9520 ####[facility] [address] [place], [address] Sodium [Moles/Vol] 138 mmol/L Normal 133-145 [facility] Comment on above: Order Comment: Order Date: 09/17/24Order Info: 0786-1 - CMPOrder Info: [id number] - CRPOrder Info: 3016-3 - TSH Performed By: #### L 101.9900, L100.0100, L500.4050, L501.9520 ####[facility] [address] [facility] [place], [address] T PROT 7.3 g/dL Normal 5.9-8.4 [facility] Comment on above: Order Comment: Order Date: 09/17/24Order Info: 0786-1 - CMPOrder Info: [id number] - CRPOrder Info: 3016-3 - TSH Performed By: #### L 101.9900, L100.0100, L500.4050, L501.9520 ####[facility] [address] [facility] [place], [address] Urea nitrogen [Mass/Vol] 16 mg/dL Normal 4-19 [facility] Comment on above: Order Comment: Order Date: 09/17/24Order Info: 0786-1 - CMPOrder Info: [id number] - CRPOrder Info: 3016-3 - TSH Performed By: #### L 101.9900, L100.0100, L500.4050, L501.9520 ####[facility] [address] [facility] [place], [address] DNA double strand Ab Qn (S)O rdered By: Kelvin Han on 09-18-2024 Anti-Double Strand DNA Antibody TNP [facility] Comment on above: Test not performed Diagnostic total prostate sp ecific antigen (PSA) measurementOrdered By: Kelvin Han on 09-18-2024 Prostate Specific Antigen Total < 0.02 ng/mL 0.00-4.00 [facility] Comment on above: This test was perfor med using the [facility] tPSA method. Measured values of a patient sample can vary depending on the testing procedure used. PSA values determined on patient samples by different testing procedures cannot be used interchangeably. If there is a change in PSA assays while monitoring therapy, sequential testing should be performed to confirm baseline values. Eosinophil percentageOrdered By: Kelvin Han on 09-18-2024 Eosinophils/100 WBC (Bld) 1.2 % 0-5 [facility] Erythrocyte Sed Rateon 09-18 SED RATE 25 mm/hr High 0-20 [facility] Comment on above: Order Comment: Order Date: 09/17/24Order Info: [id number] - CBCDOrder Info: [id number] - SED Performed By: #### L 101.9900, L100.0100, L500.4050, L501.9520 ####[facility] [address] [place], [address] Erythrocyte distribution wid th (RBC) [Ratio]Ordered By: Kelvin Han on 09-18-2024 Erythrocyte distribution width (RBC) [Entitic vol] 47.6 fL High 35.1-43.9 [facility] Erythrocyte distribution wid th ratioOrdered By: Kelvin Han on 09-18-2024 Erythrocyte distribution width (RBC) [Ratio] 15.5 % High 11.6-14.6 [facility] Erythrocyte distribution wid th standard deviationOrdered By: Kelvin Han on 09-18-2024 Erythrocyte distribution width (RBC) [Ratio] 47.6 fl High 35.1-43.9 [facility] Erythrocyte sedimentation ra teOrdered By: Kelvin Han on 09-18-2024 ESR (Bld) [Velocity] 25 mm/h High 0-20 [facility] GFR/1.73 sq M.predicted tobias g non-blacks MDRD (S/P/Bld) [Vol rate/Area]Ordered By: Kelvin Han on 09-18-2024 Estimated GFR (MDRD) Non-Af Amer 77 >60 [facility] Comment on above: mL/min/1.73m2 CKD-EP I Creatinine Equation (2020) Glomerular filtration rate ( GFR) estimation/1.73 sq m using serum, plasma, or whole bOrdered By: Kelvin Han on 09-18-2024 GFR/1.73 sq M.predicted among non-blacks MDRD (S/P/Bld) [Vol rate/Area] 77 mL/min/{1.73_m2} >60 [facility] Comment on above: mL/min/1.73m2 CKD-EP I Creatinine Equation (2020) Hematocrit Auto (Bld) [Volum e fraction]Ordered By: Kelvin Han on 09-18-2024 Hematocrit (Bld) [Volume fraction] 35.2 % Low 40-54 [facility] Hemoglobin measurementOrdere d By: Kelvin Han on 09-18-2024 Hemoglobin (Bld) [Mass/Vol] 11.9 g/dL Low 13.0-16.5 [facility] Immature granulocytes/100 WB C Auto (Bld)Ordered By: Kelvin Han on 09-18-2024 Immature granulocytes/100 WBC (Bld) 0.700 % 0.0-0.9 [facility] Comment on above: IG% - Immature Granu locytes (promyelocytes, myelocytes and metamyelocytes) > 1% indicates that a LEFT SHIFT is Present. Misty-1 antibody assayOrdered B y: Kelvin Han on 09-18-2024 MISTY-1 Antibody TNP [facility] Comment on above: Test not performed Laboratory - Chemistry and C hemistry - challengeOrdered By: Kelvin Han on 09-18-2024 AST [Catalytic activity/Vol] 26 U/L <38 [facility] Lymphocytes Auto (Unsp spec) [#/Vol]Ordered By: Kelvin Han on 09-18-2024 Lymphocytes (Bld) [#/Vol] 0.79 10*3/uL Low 0.83-4.51 [facility] Lymphocytes/100 WBC Auto (Un sp spec)Ordered By: Kelvin Han on 09-18-2024 Lymphocytes/100 WBC (Bld) 13.7 % Low 19-41 [facility] MCV (mean corpuscular volume ) determinationOrdered By: Kelvin Han on 09-18-2024 MCV (RBC) [Entitic vol] 84.4 fL 80-94 [facility] Mean corpuscular hemoglobin (MCH) determinationOrdered By: Kelvin Han on 09-18-2024 MCH (RBC) [Entitic mass] 28.5 pg 27.0-32.0 [facility] Mean corpuscular hemoglobin concentration (MCHC) determinationOrdered By: Kelvin Han on 09-18-2024 MCHC (RBC) [Mass/Vol] 33.8 g/dL 32-36 [facility] Mean platelet volume determi nationOrdered By: Kelvin Han on 09-18-2024 Platelet mean volume (Bld) [Entitic vol] 10.7 fL 6.2-12.0 [facility] Monocyte percentageOrdered B y: Kelvin Han on 09-18-2024 Monocytes/100 WBC (Bld) 8.7 % 0-10 [facility] Neutrophil percentageOrdered By: Kelvin Han on 09-18-2024 Neutrophils/100 WBC (Bld) 75.5 % High 47-70 [facility] No Panel InformationOrdered By: Kelvin Han on 09-18-2024 CELSA 8 Profile TNP [facility] Comment on above: Test not performed CELSA 8 Profile Comment . [facility] Comment on above: Autoantibody Disease Association Condition Frequency Antinuclear Antibody, SLE, mixed connectiveDirect (CELSA-D) tissue diseases dsDNA SLE 40 - 60% Chromatin Drug induced SLE 90% SLE 48 - 97% SSA (Ro) SLE 25 - 35% Sjogren's Syndrome 40 - 70% Lupus 100% SSB (La) SLE 10% Sjogren's Syndrome 30% Sm (anti-Hodges) SLE 15 - 30% RNP Mixed Connective Tissue Disease 95%(U1 nRNP, SLE 30 - 50%anti-ribonucleoprotein) Polymyositis and/or Dermatomyositis 20% Scl-70 (antiDNA Scleroderma (diffuse) 20 - 35%topoisomerase) Crest 13% Jo-1 Polymyositis and/or Dermatomyositis 20 - 40% Centromere B Scleroderma - Crest variant 80% Ribosomal P SLE 10 - 20%Performed at: [address] [id number] Director: Basilio Ricci PhD, Phone: [phone] reported result: TNP Edited by: ARACELI on 09/25/24:1108 AMENDED REPORT 09/25/24 1108 COMMENT previously reported as: Test not performed Nucleated red blood cell per centageOrdered By: Kelvin Han on 09-18-2024 Nucleated RBC/100 WBC (Bld) [Ratio] 0 % 0-5 [facility] PSA,Total- Diagnosticon 09-04 PSA, DIAGNOSTIC < 0.02 Normal 0.00-4.00 [facility] Comment on above: Order Comment: Order Date: 09/17/24Order Info: 0786-1 - CMPOrder Info: [id number] - CRPOrder Info: [id number] - TSH Result Comment: This test was performed using the [facility] tPSAmethod. Measured values of a patient??sample can varydepending on the testing procedure used. PSA valuesdetermined on patient samples by different testingprocedures cannot be used interchangeably. If there is achange in PSA assays while monitoring therapy, sequentialtesting should be performed to confirm baseline values. Performed By: #### L 3100.5430, L3100.5440, L501.9940 ####[facility] [address] [place], [place], [address] Platelet countOrdered By: Itzel Han on 09-18-2024 Platelets (Bld) [#/Vol] 250 10*3/uL 150-450 [facility] Potassium (Unsp spec) [Mass/ Vol]Ordered By: Kelvin Hna on 09-18-2024 Potassium [Moles/Vol] 4.0 mmol/L 3.3-5.1 [facility] Potassium measurement (mass/ volume)Ordered By: Kelvin Han on 09-18-2024 Potassium (Unsp spec) [Mass/Vol] 4.0 mmol/L 3.3-5.1 [facility] RBC Auto (Bld) [#/Vol]Ordere d By: Kelvin Han on 09-18-2024 RBC (Bld) [#/Vol] 4.17 10*6/uL Low 4.6-6.2 [facility] [employer] PERFORMANCE ENGINEER abOrdered By: Eduardo Han on 09-18-2024 WIND [employer]UR[employer] PERFORMANCE ENGINEER Antibody [facility] Comment on above: Test not performed Ribosomal P protein antibody assayOrdered By: Kelvin Han on 09-18-2024 Ribosomal P Protein Antibody [facility] Comment on above: Test not performed Ribosomal P protein antibody assay 0.3 AI 0.0-0.9 [facility] Comment on above: Previous reported re sult: TNP AIEdited by: ARACELI on 09/25/24:1108 AMENDED REPORT 09/25/24 1108 Anti-P previously reported as: Test not performed SCL-70 extractable nuclear A b Qn (S)Ordered By: Kelvin Han on 09-18-2024 Scl-70 (Scleroderma) Antibody [facility] Comment on above: Test not performed SS-A IgG antibody assayOrder ed By: Kelvin Han on 09-18-2024 SS-A/Ro IgG Antibody [facility] Comment on above: Test not performed SS-B IgG antibody assayOrder ed By: Kelvin Han on 09-18-2024 SS-B/La IgG Antibody [facility] Comment on above: Test not performed Serum DNA double strand anti body assay (units/volume)Ordered By: Kelvin Han on 09-18-2024 DNA double strand Ab Qn (S) 3 [IU]/mL 0-9 [facility] Comment on above: Negative <5 Equivoca l 5 - 9 Positive >9Previous reported result: TNP IU/mLEdited by: ARACELI on 09/25/24:1108 AMENDED REPORT 09/25/24 110 dsDNA AB previously reported as: Test not performed Serum Scl-70 antibody assay (units/volume)Ordered By: Kelvin Han on 09-18-2024 SCL-70 extractable nuclear Ab Qn (S) <0.2 AI 0.0-0.9 [facility] Comment on above: Previous reported re sult: TNP AIEdited by: ARACELI on 09/25/24:1108 AMENDED REPORT 09/25/24 1108 ANTISCLER previously reported as: Test not performed Serum creatinine measurement (mass/volume)Ordered By: Kelvin Han on 09-18-2024 Creatinine [Mass/Vol] 1.01 mg/dL 0.70-1.20 [facility] Serum globulin measurementOr dered By: Kelvin Han on 09-18-2024 Globulin (S) [Mass/Vol] 3.6 g/dL 2.2-4.2 [facility] Serum glucose measurement (m ass/volume)Ordered By: Kelvin Han on 09-18-2024 Glucose [Mass/Vol] 109 mg/dL High 70-99 [facility] Serum or plasma C reactive p rotein measurement (mass/volume)Ordered By: Kelvin Han on 09-18-2024 CRP [Mass/Vol] 3.99 mg/L High 0.0-3.0 [facility] Serum or plasma alanine morris otransferase (ALT) measurementOrdered By: Kelvin Han on 09-18-2024 ALT [Catalytic activity/Vol] 18 U/L <47 [facility] Serum or plasma albumin janusz urement (mass/volume)Ordered By: Kelvin Han on 09-18-2024 Albumin [Mass/Vol] 3.8 g/dL 3.4-4.8 [facility] Serum or plasma albumin/glob ulin mass ratioOrdered By: Kelvin Han on 09-18-2024 Albumin/Globulin [Mass ratio] 1.0 {ratio} 0.9-2.4 [facility] Serum or plasma alkaline trice sphatase measurementOrdered By: Kelvin Han on 09-18-2024 ALP [Catalytic activity/Vol] 81 U/L 40-129 [facility] Serum or plasma calcium janusz urement (mass/volume)Ordered By: Kelvin Han on 09-18-2024 Calcium [Mass/Vol] 9.3 mg/dL 7.6-11.0 [facility] Serum or plasma urea nitroge n measurement (mass/volume)Ordered By: Kelvin Han on 09-18-2024 Urea nitrogen [Mass/Vol] 16 mg/dL 4-19 [facility] Hodges antibody assayOrdered By: Kelvin Han on 09-18-2024 SM Antibody TNP [facility] Comment on above: Test not performed Sodium levelOrdered By: Panfilo Han on 09-18-2024 Sodium [Moles/Vol] 138 mmol/L 133-145 [facility] TSH DL <= 0.005 mIU/L QnOrde red By: Kelvin Han on 09-18-2024 Thyroid Stimulating Hormone (TSH) 1.440 uIU/mL 0.300-4.200 [facility] TSH Qn 1.440 uIU/mL 0.300-4.200 [facility] Thyroid Stim Hormone (TSH)on 09-18-2024 TSH 1.440 uIU/mL Normal 0.300-4.200 [facility] Comment on above: Order Comment: Order Date: 09/17/24Order Info: 0786-1 - CMPOrder Info: [id number] - CRPOrder Info: 3016-3 - TSH Performed By: #### L 101.9900, L100.0100, L500.4050, L501.9520 ####[facility] [address] [place], [address] Total proteinOrdered By: Yamila Han on 09-18-2024 Protein [Mass/Vol] 7.3 g/dL 5.9-8.4 [facility] White blood cell (WBC) count Ordered By: Kelvin Han on 09-18-2024 WBC (Bld) [#/Vol] 5.8 10*3/uL 4.4-11.0 [facility] CBC W/Diff, Automatedon PATH REV N/A Normal [facility] Comment on above: Result Comment: AMENDED REPORT 09/09/24 1801 PATH REV previously reported as: October Performed By: #### L 100.0100, L500.2500 ####[facility] [address] [place], [address] Basic Metabolic Profile (BMP )on 08-22-2024 BUN Normal - [facility] Comment on above: Result Comment: Canc elled via OM: Order cancelled - Patient discharged Performed By: #### L 100.0100, L500.2500 ####[facility] [address] [place], [address] BUN/CRE Normal - [facility] Comment on above: Result Comment: Canc elled via OM: Order cancelled - Patient discharged Performed By: #### L 100.0100, L500.2500 ####[facility] [address] [place], [address] Calcium Normal 7.6-11.0 [facility] Comment on above: Result Comment: Canc elled via OM: Order cancelled - Patient discharged Performed By: #### L 100.0100, L500.2500 ####[facility] [address] [place], [address] CL Normal 98-108 [facility] Comment on above: Result Comment: Canc elled via OM: Order cancelled - Patient discharged Performed By: #### L 100.0100, L500.2500 ####[facility] [address] [place], [address] CO2 Normal 21.0-32.0 [facility] Comment on above: Result Comment: Canc elled via OM: Order cancelled - Patient discharged Performed By: #### L 100.0100, L500.2500 ####[facility] [address] [place], [address] CREAT,SERUM Normal 0.70-1.20 [facility] Comment on above: Result Comment: Canc elled via OM: Order cancelled - Patient discharged Performed By: #### L 100.0100, L500.2500 ####[facility] [address] [place], [address] eGFR Normal >60 [facility] Comment on above: Result Comment: Canc elled via OM: Order cancelled - Patient discharged Performed By: #### L 100.0100, L500.2500 ####[facility] [address] [place], [address] GAP Normal 5-15 [facility] Comment on above: Result Comment: Canc elled via OM: Order cancelled - Patient discharged Performed By: #### L 100.0100, L500.2500 ####[facility] [address] [place], [address] GLU Normal 70-99 [facility] Comment on above: Result Comment: Canc elled via OM: Order cancelled - Patient discharged Performed By: #### L 100.0100, L500.2500 ####[facility] [address] [place], [address] Potassium Normal 3.3-5.1 [facility] Comment on above: Result Comment: Canc elled via OM: Order cancelled - Patient discharged Performed By: #### L 100.0100, L500.2500 ####[facility] [address] [place], [address] Basic Metabolic Profile (BMP) Normal 133-145 [facility] Comment on above: Result Comment: Canc elled via OM: Order cancelled - Patient discharged Performed By: #### L 100.0100, L500.2500 ####[facility] [address] [place], [address] CBC W/Diff, Automatedon 03-1 Absolute Neut Normal 2.0-7.7 [facility] Comment on above: Result Comment: Canc elled via OM: Order cancelled - Patient discharged Performed By: #### L 100.0100, L500.2500 ####[facility] [address] [place], [address] HCT Normal 40-54 [facility] Comment on above: Result Comment: Canc elled via OM: Order cancelled - Patient discharged Performed By: #### L 100.0100, L500.2500 ####[facility] [address] [place], [address] HGB Normal 13.0-16.5 [facility] Comment on above: Result Comment: Canc elled via OM: Order cancelled - Patient discharged Performed By: #### L 100.0100, L500.2500 ####[facility] [address] [place], [address] MCH Normal 27.0-32.0 [facility] Comment on above: Result Comment: Canc elled via OM: Order cancelled - Patient discharged Performed By: #### L 100.0100, L500.2500 ####[facility] [address] [place], [address] MCHC Normal 32-36 [facility] Comment on above: Result Comment: Canc elled via OM: Order cancelled - Patient discharged Performed By: #### L 100.0100, L500.2500 ####[facility] [address] [place], [address] MCV Normal 80-94 [facility] Comment on above: Result Comment: Canc elled via OM: Order cancelled - Patient discharged Performed By: #### L 100.0100, L500.2500 ####[facility] [address] [place], [address] NEUT% Normal 47-70 [facility] Comment on above: Result Comment: Canc elled via OM: Order cancelled - Patient discharged Performed By: #### L 100.0100, L500.2500 ####[facility] [address] [place], [address] PLT Normal 150-450 [facility] Comment on above: Result Comment: Canc elled via OM: Order cancelled - Patient discharged Performed By: #### L 100.0100, L500.2500 ####[facility] [address] [place], [address] RBC Normal 4.6-6.2 [facility] Comment on above: Result Comment: Canc elled via OM: Order cancelled - Patient discharged Performed By: #### L 100.0100, L500.2500 ####[facility] [address] [place], [address] RDW CV Normal 11.6-14.6 [facility] Comment on above: Result Comment: Canc elled via OM: Order cancelled - Patient discharged Performed By: #### L 100.0100, L500.2500 ####[facility] [address] [place], [address] RDW SD Normal 35.1-43.9 [facility] Comment on above: Result Comment: Canc elled via OM: Order cancelled - Patient discharged Performed By: #### L 100.0100, L500.2500 ####[facility] [address] [place], [address] WBC Normal 4.4-11.0 [facility] Comment on above: Result Comment: Canc elled via OM: Order cancelled - Patient discharged Performed By: #### L 100.0100, L500.2500 ####[facility] [address] [place], [address] Basic Metabolic Profile (BMP )on 08-21-2024 BUN Normal 4-19 [facility] Comment on above: Result Comment: Canc elled via OM: Order cancelled - Patient discharged Performed By: #### L 500.2500, L100.0100 ####[facility] [address] [place], [address] BUN/CRE Normal 10-20 [facility] Comment on above: Result Comment: Canc elled via OM: Order cancelled - Patient discharged Performed By: #### L 500.2500, L100.0100 ####[facility] [address] [place], [address] Calcium Normal 7.6-11.0 [facility] Comment on above: Result Comment: Canc elled via OM: Order cancelled - Patient discharged Performed By: #### L 500.2500, L100.0100 ####[facility] [address] [place], [address] CL Normal 98-108 [facility] Comment on above: Result Comment: Canc elled via OM: Order cancelled - Patient discharged Performed By: #### L 500.2500, L100.0100 ####[facility] [address] [place], [address] CO2 Normal 21.0-32.0 [facility] Comment on above: Result Comment: Canc elled via OM: Order cancelled - Patient discharged Performed By: #### L 500.2500, L100.0100 ####[facility] [address] [place], [address] CREAT,SERUM Normal 0.70-1.20 [facility] Comment on above: Result Comment: Canc elled via OM: Order cancelled - Patient discharged Performed By: #### L 500.2500, L100.0100 ####[facility] [address] [place], [address] eGFR Normal >60 [facility] Comment on above: Result Comment: Canc elled via OM: Order cancelled - Patient discharged Performed By: #### L 500.2500, L100.0100 ####[facility] [address] [place], [address] GAP Normal 5-15 [facility] Comment on above: Result Comment: Canc elled via OM: Order cancelled - Patient discharged Performed By: #### L 500.2500, L100.0100 ####[facility] [address] [place], [address] GLU Normal 70-99 [facility] Comment on above: Result Comment: Canc elled via OM: Order cancelled - Patient discharged Performed By: #### L 500.2500, L100.0100 ####[facility] [address] [place], [address] Potassium Normal 3.3-5.1 [facility] Comment on above: Result Comment: Canc elled via OM: Order cancelled - Patient discharged Performed By: #### L 500.2500, L100.0100 ####[facility] [address] [place], [address] Basic Metabolic Profile (BMP) Normal 133-145 [facility] Comment on above: Result Comment: Canc elled via OM: Order cancelled - Patient discharged Performed By: #### L 500.2500, L100.0100 ####[facility] [address] [place], [address] CBC W/Diff, Automatedon 03-1 Absolute Neut Normal 2.0-7.7 [facility] Comment on above: Result Comment: Canc elled via OM: Order cancelled - Patient discharged Performed By: #### L 500.2500, L100.0100 ####[facility] [address] [place], [address] HCT Normal 40-54 [facility] Comment on above: Result Comment: Canc elled via OM: Order cancelled - Patient discharged Performed By: #### L 500.2500, L100.0100 ####[facility] [address] [place], [address] HGB Normal 13.0-16.5 [facility] Comment on above: Result Comment: Canc elled via OM: Order cancelled - Patient discharged Performed By: #### L 500.2500, L100.0100 ####[facility] [address] [place], [address] MCH Normal 27.0-32.0 [facility] Comment on above: Result Comment: Canc elled via OM: Order cancelled - Patient discharged Performed By: #### L 500.2500, L100.0100 ####[facility] [address] [place], [address] MCHC Normal 32-36 [facility] Comment on above: Result Comment: Canc elled via OM: Order cancelled - Patient discharged Performed By: #### L 500.2500, L100.0100 ####[facility] [address] [place], [address] MCV Normal 80-94 [facility] Comment on above: Result Comment: Canc elled via OM: Order cancelled - Patient discharged Performed By: #### L 500.2500, L100.0100 ####[facility] [address] [place], [address] NEUT% Normal 47-70 [facility] Comment on above: Result Comment: Canc elled via OM: Order cancelled - Patient discharged Performed By: #### L 500.2500, L100.0100 ####[facility] [address] [place], [address] PLT Normal 150-450 [facility] Comment on above: Result Comment: Canc elled via OM: Order cancelled - Patient discharged Performed By: #### L 500.2500, L100.0100 ####[facility] [address] [place], [address] RBC Normal 4.6-6.2 [facility] Comment on above: Result Comment: Canc elled via OM: Order cancelled - Patient discharged Performed By: #### L 500.2500, L100.0100 ####[facility] [address] [place], [address] RDW CV Normal 11.6-14.6 [facility] Comment on above: Result Comment: Canc elled via OM: Order cancelled - Patient discharged Performed By: #### L 500.2500, L100.0100 ####[facility] [address] [place], [address] RDW SD Normal 35.1-43.9 [facility] Comment on above: Result Comment: Canc elled via OM: Order cancelled - Patient discharged Performed By: #### L 500.2500, L100.0100 ####[facility] [address] [place], [address] WBC Normal 4.4-11.0 [facility] Comment on above: Result Comment: Canc elled via OM: Order cancelled - Patient discharged Performed By: #### L 500.2500, L100.0100 ####[facility] [address] [place], [address] Absolute lymphocyte countOrd ered By: Juany Souza on 08-20-2024 Lymphocytes Auto (Unsp spec) [#/Vol] 0.88 10*3/uL 0.83-4.51 [facility] Absolute neutrophil countOrd ered By: Juany Souza on 08-20-2024 Neutrophils (Bld) [#/Vol] 5.9 10*3/uL 2.0-7.7 [facility] Anion gap in Serum or Plasma Ordered By: Juany Souza on 08-20-2024 Anion gap [Moles/Vol] 10 mmol/L 10-18 [facility] BUN/creatinine ratioOrdered By: Juany Souza on 08-20-2024 Urea nitrogen/Creatinine [Mass ratio] 10.0 mg/mg - [facility] Basic Metabolic Profile (BMP )on 08-20-2024 BUN/CRE 10.0 RATIO Normal - [facility] Comment on above: Performed By: #### L 100.0100, L500.2500 ####[facility] [address] [place], [address] Calcium [Mass/Vol] 8.4 mg/dL Normal 7.6-11.0 [facility] Comment on above: Performed By: #### L 100.0100, L500.2500 ####[facility] [address] [place], [address] Chloride [Moles/Vol] 107 mmol/L Normal 98-108 [facility] Comment on above: Performed By: #### L 100.0100, L500.2500 ####[facility] [address] [place], [address] CO2 [Moles/Vol] 20.6 mmol/L Low 21.0-32.0 [facility] Comment on above: Performed By: #### L 100.0100, L500.2500 ####[facility] [address] [place], [address] Creatinine [Mass/Vol] 1.18 mg/dL Normal 0.70-1.20 [facility] Comment on above: Performed By: #### L 100.0100, L500.2500 ####[facility] [address] [place], [address] ECRCL 59.31 ml/min Normal 50-250 [facility] Comment on above: Performed By: #### L 100.0100, L500.2500 ####[facility] [address] [place], [address] GAP 10 Normal 5-15 [facility] Comment on above: Performed By: #### L 100.0100, L500.2500 ####[facility] [address] [place], [address] GFR/1.73 sq M.predicted among non-blacks MDRD (S/P/Bld) [Vol rate/Area] 64 mL/min/{1.73_m2} Normal >60 [facility] Comment on above: Result Comment: mL/m in/1.73m2 CKD-EPI Creatinine Equation (2020) Performed By: #### L 100.0100, L500.2500 ####[facility] [address] [place], [address] Glucose [Mass/Vol] 98 mg/dL Normal 70-99 [facility] Comment on above: Performed By: #### L 100.0100, L500.2500 ####[facility] [address] [place], [address] Potassium [Moles/Vol] 3.9 mmol/L Normal 3.3-5.1 [facility] Comment on above: Performed By: #### L 100.0100, L500.2500 ####[facility] [address] [place], [address] Sodium [Moles/Vol] 137 mmol/L Normal 133-145 [facility] Comment on above: Performed By: #### L 100.0100, L500.2500 ####[facility] [address] [place], [address] Urea nitrogen [Mass/Vol] 12 mg/dL Normal 4-19 [facility] Comment on above: Performed By: #### L 100.0100, L500.2500 ####[facility] [address] [place], [address] Blood eosinophils/100 leukoc ytesOrdered By: Juany Souza on 08-20-2024 Eosinophils/100 WBC (Bld) 4 % 0-5 [facility] Blood lymphocytes/100 leukoc ytesOrdered By: Juany Souza on 08-20-2024 Lymphocytes/100 WBC (Bld) 11 % Low 19-41 [facility] Blood metamyelocytes/100 krystle kocytesOrdered By: Juany Souza on 08-20-2024 Metamyelocytes/100 WBC (Bld) 1 % 0-1 [facility] Blood monocytes/100 leukocyt esOrdered By: Juany Souza on 08-20-2024 Monocytes/100 WBC (Bld) 7 % 0-10 [facility] Blood promyelocytes/100 leuk ocytesOrdered By: Juany Souza on 08-20-2024 Promyelocytes/100 WBC (Bld) 1 % High 0-0 [facility] Blood segmented neutrophils/ 100 leukocytesOrdered By: Juany Souza on 08-20-2024 Segmented neutrophils/100 WBC (Bld) 73 % High 47-70 [facility] Carbon dioxide, total [Moles /volume] in Central venous bloodOrdered By: Juany Souza on 08-20-2024 CO2 [Moles/Vol] 20.6 mmol/L Low 21.0-32.0 [facility] Cells counted Molgen (Bld/Ti ss) [#]Ordered By: Juany Souza on 08-20-2024 Differential Total Cells Counted 100 MANUAL DIFF [facility] Chloride assayOrdered By: Ruben Souza on 08-20-2024 Chloride [Moles/Vol] 107 mmol/L 98-108 [facility] Culture, Blood (WB)on 2024 CUB Normal [facility] Comment on above: Performed By: #### L 300.3900, M200.1000, L300.4310, L503.6005 ####[facility] [address] [facility] [place], [address] Discharge Instructionon 08-04 Discharge Instruction Normal [facility] Electrocardiogram reportOrde red By: Ambika Espinosa on 08-20-2024 EKG study [facility] [address] [place] [address] 12 Lead EKG 08/14/242133 MR#: [id number] Acct: [id number] Name: BARBARA MILAN MONI Rep #:[id number] : 1945 78 From: Ambika giordano MD Attending Dr: Dr. Jameel Herrera MD Status: ADM IN Ordering Dr: Kishore Nicolas MD Date: 04/30 Location: [facility] Sex: M C Admitted: 08/14/24 Test Reason : DYSRHYTHMIA Blood Pressure : */* mmHG Vent. Rate : 140 BPM Atrial Rate : 140 BPM P-R Int : 184 ms QRS Dur : 76 ms QT Int : 322 ms P-R-T Axes : * 72 31 degrees QTcB Int : 491 ms Critical Test Result: High HR Sinus tachycardia Otherwise normal ECG Confirmed by JACQUIE HOOK, NEHEMIAS ([id number]), story editor АНДРЕЙ GROSS ([id number]) on08/20/2024 11:19:46 AM Referred By: Confirmed By: NEHEMIAS ESPINOSA MD 08/20/24 1119 Date _ Ambika Espinosa MD CC: Dr. Kelvin Han MD; Dr. Kishore Nicolas MD; Dr. Jameel Herrera MD ~ Signed [facility] Other Phone: Erythrocyte distribution wid th ratioOrdered By: Juany Souza on 08-20-2024 Erythrocyte distribution width (RBC) [Ratio] 15.1 % High 11.6-14.6 [facility] Erythrocyte distribution wid th standard deviationOrdered By: Juany Souza on 08-20-2024 Erythrocyte distribution width (RBC) [Entitic vol] 46.3 fL High 35.1-43.9 [facility] Erythrocyte distribution width (RBC) [Ratio] 46.3 fl High 35.1-43.9 [facility] Estimation of creatinine ivelisse aranceOrdered By: Juany Souza on 08-20-2024 Estimated Creatinine Clearance Calc 59.31 ml/min 50-250 [facility] GFR/1.73 sq M.predicted tobias g non-blacks MDRD (S/P/Bld) [Vol rate/Area]Ordered By: Juany Souza on 08-20-2024 Estimated GFR (MDRD) Non-Af Amer 64 >60 [facility] Comment on above: mL/min/1.73m2 CKD-EP I Creatinine Equation (2020) Glomerular filtration rate ( GFR) estimation/1.73 sq m using serum, plasma, or whole bOrdered By: Juany Souza on 08-20-2024 GFR/1.73 sq M.predicted among non-blacks MDRD (S/P/Bld) [Vol rate/Area] 64 mL/min/{1.73_m2} >60 [facility] Comment on above: mL/min/1.73m2 CKD-EP I Creatinine Equation (2020) Hematocrit Auto (Bld) [Volum e fraction]Ordered By: Juany Souza on 08-20-2024 Hematocrit (Bld) [Volume fraction] 30.0 % Low 40-54 [facility] Hemoglobin measurementOrdere d By: Juany Souza on 08-20-2024 Hemoglobin (Bld) [Mass/Vol] 10.0 g/dL Low 13.0-16.5 [facility] Lymphocytes Auto (Unsp spec) [#/Vol]Ordered By: Juany Souza on 08-20-2024 Lymphocytes (Bld) [#/Vol] 0.88 10*3/uL 0.83-4.51 [facility] MCV (mean corpuscular volume ) determinationOrdered By: Juany Souza on 08-20-2024 MCV (RBC) [Entitic vol] 83.8 fL 80-94 [facility] Mean corpuscular hemoglobin (MCH) determinationOrdered By: Juany Souza on 08-20-2024 MCH (RBC) [Entitic mass] 27.9 pg 27.0-32.0 [facility] Mean corpuscular hemoglobin concentration (MCHC) determinationOrdered By: Juany Souza on 08-20-2024 MCHC (RBC) [Mass/Vol] 33.3 g/dL 32-36 [facility] Mean platelet volume determi nationOrdered By: Juany Souza on 08-20-2024 Platelet mean volume (Bld) [Entitic vol] 10.7 fL 6.2-12.0 [facility] Myelocyte %Ordered By: Juany Souza on 08-20-2024 Myelocytes/100 WBC (Bld) 3 % High 0-0 [facility] Neutrophil percentageOrdered By: Juany Souza on 08-20-2024 Neutrophils (%) (Auto) Not Reportable [facility] Pathologist review Kristian (Unsp spec) [Interp]Ordered By: Juany Souza on 08-20-2024 Differential Pathologist's Review October deric [facility] Differential Pathologist's Review N/A [facility] Comment on above: Previous reported re sult: Fidelina leos Edited by: KAYLA on 09/09/24:1801 AMENDED REPORT 09/09/241800 PATH REV previously reported as: October Platelet countOrdered By: Ruben Souza on 08-20-2024 Platelets (Bld) [#/Vol] 250 10*3/uL 150-450 [facility] Potassium (Unsp spec) [Mass/ Vol]Ordered By: Juany Souza on 08-20-2024 Potassium [Moles/Vol] 3.9 mmol/L 3.3-5.1 [facility] Potassium measurement (mass/ volume)Ordered By: Juany Souza on 08-20-2024 Potassium (Unsp spec) [Mass/Vol] 3.9 mmol/L 3.3-5.1 [facility] Promyelocytes/100 WBC (Bld)O rdered By: Juany Souza on 08-20-2024 Promyelocytes % 1 % High 0-0 [facility] RBC Auto (Bld) [#/Vol]Ordere d By: Juany Souza on 08-20-2024 RBC (Bld) [#/Vol] 3.58 10*6/uL Low 4.6-6.2 [facility] Review by pathologistOrdered By: Juany Souza on 08-20-2024 Pathologist review Kristian (Unsp spec) [Interp] N/A [facility] Comment on above: Previous reported re sult: Fidelina leos Edited by: KAYLA on 09/09/24:180 AMENDED REPORT 09/09/241800 PATH REV previously reported as: October deric Segmented neutrophils/100 WB C (Bld)Ordered By: Juany Souza on 08-20-2024 Neutrophils/100 WBC (Bld) 73 % High 47-70 [facility] Serum creatinine measurement (mass/volume)Ordered By: Juany Souza on 08-20-2024 Creatinine [Mass/Vol] 1.18 mg/dL 0.70-1.20 [facility] Serum glucose measurement (m ass/volume)Ordered By: Juany Souza on 08-20-2024 Glucose [Mass/Vol] 98 mg/dL 70-99 [facility] Serum or plasma calcium janusz urement (mass/volume)Ordered By: Juany Souza on 08-20-2024 Calcium [Mass/Vol] 8.4 mg/dL 7.6-11.0 [facility] Serum or plasma urea nitroge n measurement (mass/volume)Ordered By: Juany Souza on 08-20-2024 Urea nitrogen [Mass/Vol] 12 mg/dL 4-19 [facility] Sodium levelOrdered By: Martín Souza on 08-20-2024 Sodium [Moles/Vol] 137 mmol/L 133-145 [facility] Total cell countOrdered By: Juany Souza on 08-20-2024 Cells counted Molgen (Bld/Tiss) [#] 100 MANUAL DIFF [facility] Urine Cultureon 08-20-2024 URC Normal [facility] Comment on above: Performed By: #### M 100.678, M100.2200 ####[facility] [address] [place], [address] White blood cell (WBC) count Ordered By: Juany Souza on 08-20-2024 WBC (Bld) [#/Vol] 8.0 10*3/uL 4.4-11.0 [facility] Basic Metabolic Profile (BMP )on 08-19-2024 BUN/CRE 11.6 RATIO Normal 10-20 [facility] Comment on above: Performed By: #### L 100.0100, L500.2500 ####[facility] [address] [place], [address] Calcium [Mass/Vol] 8.4 mg/dL Normal 7.6-11.0 [facility] Comment on above: Performed By: #### L 100.0100, L500.2500 ####[facility] [address] [place], [address] Chloride [Moles/Vol] 107 mmol/L Normal 98-108 [facility] Comment on above: Performed By: #### L 100.0100, L500.2500 ####[facility] [address] [place], [address] CO2 [Moles/Vol] 17.2 mmol/L Low 21.0-32.0 [facility] Comment on above: Performed By: #### L 100.0100, L500.2500 ####[facility] [address] [place], [address] Creatinine [Mass/Vol] 1.18 mg/dL Normal 0.70-1.20 [facility] Comment on above: Performed By: #### L 100.0100, L500.2500 ####[facility] [address] [place], [address] ECRCL 59.31 ml/min Normal 50-250 [facility] Comment on above: Performed By: #### L 100.0100, L500.2500 ####[facility] [address] [place], [address] GAP 12 Normal 5-15 [facility] Comment on above: Performed By: #### L 100.0100, L500.2500 ####[facility] [address] [place], [address] GFR/1.73 sq M.predicted among non-blacks MDRD (S/P/Bld) [Vol rate/Area] 64 mL/min/{1.73_m2} Normal >60 [facility] Comment on above: Result Comment: mL/m in/1.73m2 CKD-EPI Creatinine Equation (2020) Performed By: #### L 100.0100, L500.2500 ####[facility] [address] [place], [address] Glucose [Mass/Vol] 103 mg/dL High 70-99 [facility] Comment on above: Performed By: #### L 100.0100, L500.2500 ####[facility] [address] [place], [address] Potassium [Moles/Vol] 3.9 mmol/L Normal 3.3-5.1 [facility] Comment on above: Performed By: #### L 100.0100, L500.2500 ####[facility] [address] [place], [address] Sodium [Moles/Vol] 136 mmol/L Normal 133-145 [facility] Comment on above: Performed By: #### L 100.0100, L500.2500 ####[facility] [address] [place], [address] Urea nitrogen [Mass/Vol] 14 mg/dL Normal 4-19 [facility] Comment on above: Performed By: #### L 100.0100, L500.2500 ####[facility] [address] [place], [address] Blood schistocyte detection by light microscopyOrdered By: Juany Souza on 08-19-2024 Schistocytes LM Ql (Bld) RARE [facility] C. difficile DNA MARYJANE+probe Q l (Unsp spec)Ordered By: Juany Souza on 08-19-2024 Clostridioides difficile (PCR) [facility] CDIFF (PCR)on 08-19-2024 CDIFF Is the patient receiving laxatives? N New/unexplained onset of 3 or more stools in past 24 hrs? Y Pending 027 027 NAP1-B1 Presumptive Negative *for epidemiolologic???us e C. Diff PCR Negative- No toxigenic C. Diff Detected Normal [facility] Comment on above: Performed By: #### M 100.6796, M100.637 ####[facility] [address] [place], [address] Clostridium difficile detect ion by polymerase chain reactionOrdered By: Juany Souza on 08-19-2024 C. difficile DNA MARYJANE+probe Ql (Unsp spec) [facility] ENTERIC PATHOGEN PANEL STOOL on 08-19-2024 EP PANEL Normal [facility] Comment on above: Performed By: #### M 100.6796, M100.637 ####[facility] [address] [place], [address] Microcytosis evaluation pane lOrdered By: Juany Souza on 08-19-2024 Microcytosis 1+ [facility] Ovalocyte detectionOrdered B y: Juany Souza on 08-19-2024 Ovalocytes LM Ql (Bld) 2+ [facility] Ovalocytes LM Ql (Bld)Ordere d By: Juany Souza on 08-19-2024 Ovalocytes 2+ [facility] Platelet estimateOrdered By: Juany Souza on 08-19-2024 Platelets LM Ql (Bld) ADEQUATE ADEQ [facility] Platelets LM Ql (Bld)Ordered By: Juany Souza on 08-19-2024 Platelet Estimate ADEQUATE [facility] Schistocytes LM Ql (Bld)Orde red By: Juany Souza on 08-19-2024 Schistocytes RARE [facility] Stool enteric pathogen panel by probe and target amplification methodOrdered By: Juany Souza on 08-19-2024 Enteric Bacteriology [facility] Automated lymphocyte count a s percentage of total leukocytesOrdered By: Juany Souza on 08-18-2024 Lymphocytes/100 WBC Auto (Unsp spec) 8.2 % Low 19-41 [facility] Basic Metabolic Profile (BMP )on 08-18-2024 BUN/CRE 12.2 RATIO Normal 10-20 [facility] Comment on above: Performed By: #### L 500.2500, L100.0100 ####[facility] [address] [place], [address] Calcium [Mass/Vol] 8.1 mg/dL Normal 7.6-11.0 [facility] Comment on above: Performed By: #### L 500.2500, L100.0100 ####[facility] [address] [place], [address] Chloride [Moles/Vol] 108 mmol/L Normal 98-108 [facility] Comment on above: Performed By: #### L 500.2500, L100.0100 ####[facility] [address] [place], [address] CO2 [Moles/Vol] 17.9 mmol/L Low 21.0-32.0 [facility] Comment on above: Performed By: #### L 500.2500, L100.0100 ####[facility] [address] [place], [address] Creatinine [Mass/Vol] 1.23 mg/dL High 0.70-1.20 [facility] Comment on above: Performed By: #### L 500.2500, L100.0100 ####[facility] [address] [place], [address] ECRCL 56.87 ml/min Normal 50-250 [facility] Comment on above: Performed By: #### L 500.2500, L100.0100 ####[facility] [address] [place], [address] GAP 11 Normal 5-15 [facility] Comment on above: Performed By: #### L 500.2500, L100.0100 ####[facility] [address] [place], [address] GFR/1.73 sq M.predicted among non-blacks MDRD (S/P/Bld) [Vol rate/Area] 61 mL/min/{1.73_m2} Normal >60 [facility] Comment on above: Result Comment: mL/m in/1.73m2 CKD-EPI Creatinine Equation (2020) Performed By: #### L 500.2500, L100.0100 ####[facility] [address] [place], [address] Glucose [Mass/Vol] 102 mg/dL High 70-99 [facility] Comment on above: Performed By: #### L 500.2500, L100.0100 ####[facility] [address] [place], [address] Potassium [Moles/Vol] 4.1 mmol/L Normal 3.3-5.1 [facility] Comment on above: Performed By: #### L 500.2500, L100.0100 ####[facility] [address] [place], [address] Sodium [Moles/Vol] 137 mmol/L Normal 133-145 [facility] Comment on above: Performed By: #### L 500.2500, L100.0100 ####[facility] [address] [place], [address] Urea nitrogen [Mass/Vol] 15 mg/dL Normal 4-19 [facility] Comment on above: Performed By: #### L 500.2500, L100.0100 ####[facility] [address] [place], [address] Basophil percentageOrdered B y: Juany Souza on 08-18-2024 Basophils/100 WBC (Bld) 0.3 % 0-1 [facility] CBC W/Diff, Automatedon 08-04 Absolute Lymph 0.78 X10 3/uL Low 0.83-4.51 [facility] Comment on above: Performed By: #### L 500.2500, L100.0100 ####[facility] [address] [place], [address] Absolute Neut 7.6 X10 3/uL Normal 2.0-7.7 [facility] Comment on above: Performed By: #### L 500.2500, L100.0100 ####[facility] [address] [place], [address] Basophils/100 WBC (Bld) 0.3 % Normal 0-1 [facility] Comment on above: Performed By: #### L 500.2500, L100.0100 ####[facility] [address] [place], [address] Eosinophils/100 WBC (Bld) 3.4 % Normal 0-5 [facility] Comment on above: Performed By: #### L 500.2500, L100.0100 ####[facility] [address] [place], [id number] Erythrocyte distribution width (RBC) [Ratio] 15.4 % High 11.6-14.6 [facility] Comment on above: Performed By: #### L 500.2500, L100.0100 ####[facility] [address] [place], [address] Hematocrit (Bld) [Volume fraction] 27.9 % Low 40-54 [facility] Comment on above: Performed By: #### L 500.2500, L100.0100 ####[facility] [address] [place], [address] Hemoglobin (Bld) [Mass/Vol] 9.5 g/dL Low 13.0-16.5 [facility] Comment on above: Performed By: #### L 500.2500, L100.0100 ####[facility] [address] [place], [address] IG% 1.100 High 0.0-0.9 [facility] Comment on above: Result Comment: IG% - Immature Granulocytes (promyelocytes, myelocytes andmetamyelocytes) > 1% indicates that a LEFT SHIFT is Present. Performed By: #### L 500.2500, L100.0100 ####[facility] [address] [place], [address] Lymphocytes/100 WBC (Bld) 8.2 % Low 19-41 [facility] Comment on above: Performed By: #### L 500.2500, L100.0100 ####[facility] [address] [place], [address] MCH (RBC) [Entitic mass] 28.4 pg Normal 27.0-32.0 [facility] Comment on above: Performed By: #### L 500.2500, L100.0100 ####[facility] [address] [place], [address] MCHC (RBC) [Mass/Vol] 34.1 g/dL Normal 32-36 [facility] Comment on above: Performed By: #### L 500.2500, L100.0100 ####[facility] [address] [place], [address] MCV (RBC) [Entitic vol] 83.3 fL Normal 80-94 [facility] Comment on above: Performed By: #### L 500.2500, L100.0100 ####[facility] [address] [place], [address] Monocytes/100 WBC (Bld) 7.1 % Normal 0-10 [facility] Comment on above: Performed By: #### L 500.2500, L100.0100 ####[facility] [address] [place], [address] Neutrophils/100 WBC (Bld) 79.9 % High 47-70 [facility] Comment on above: Performed By: #### L 500.2500, L100.0100 ####[facility] [address] [place], [address] Nucleated RBC (Bld) [#/Vol] 0 10*3/uL Normal 0-5 [facility] Comment on above: Performed By: #### L 500.2500, L100.0100 ####[facility] [address] [place], [address] Platelet mean volume (Bld) [Entitic vol] 10.7 fL Normal 6.2-12.0 [facility] Comment on above: Performed By: #### L 500.2500, L100.0100 ####[facility] [address] [place], [address] Platelets (Bld) [#/Vol] 207 10*3/uL Normal 150-450 [facility] Comment on above: Performed By: #### L 500.2500, L100.0100 ####[facility] [address] [place], [address] RBC (Bld) [#/Vol] 3.35 10*6/uL Low 4.6-6.2 [facility] Comment on above: Performed By: #### L 500.2500, L100.0100 ####[facility] [address] [place], [address] RDW SD 47.0 fl High 35.1-43.9 [facility] Comment on above: Performed By: #### L 500.2500, L100.0100 ####[facility] [address] [place], [address] WBC (Bld) [#/Vol] 9.5 10*3/uL Normal 4.4-11.0 [facility] Comment on above: Performed By: #### L 500.2500, L100.0100 ####[facility] [address] [place], [address] Eosinophil percentageOrdered By: Juany Souza on 08-18-2024 Eosinophils/100 WBC (Bld) 3.4 % 0-5 [facility] Immature granulocytes/100 WB C Auto (Bld)Ordered By: Juany Souza on 08-18-2024 Immature granulocytes/100 WBC (Bld) 1.100 % High 0.0-0.9 [facility] Comment on above: IG% - Immature Granu locytes (promyelocytes, myelocytes and metamyelocytes) > 1% indicates that a LEFT SHIFT is Present. Lymphocytes/100 WBC Auto (Un sp spec)Ordered By: Juany Souza on 08-18-2024 Lymphocytes/100 WBC (Bld) 8.2 % Low 19-41 [facility] Monocyte percentageOrdered B y: Juany Souza on 08-18-2024 Monocytes/100 WBC (Bld) 7.1 % 0-10 [facility] Nucleated red blood cell per centageOrdered By: Juany Souza on 08-18-2024 Nucleated RBC/100 WBC (Bld) [Ratio] 0 % 0-5 [facility] Basic Metabolic Profile (BMP )on 08-17-2024 BUN/CRE 16.3 RATIO Normal 10-20 [facility] Comment on above: Performed By: #### L 500.2500, L100.0100 ####[facility] [address] [place], [address] Calcium [Mass/Vol] 7.9 mg/dL Normal 7.6-11.0 [facility] Comment on above: Performed By: #### L 500.2500, L100.0100 ####[facility] [address] [place], [address] Chloride [Moles/Vol] 109 mmol/L High 98-108 [facility] Comment on above: Performed By: #### L 500.2500, L100.0100 ####[facility] [address] [place], [address] CO2 [Moles/Vol] 16.9 mmol/L Low 21.0-32.0 [facility] Comment on above: Performed By: #### L 500.2500, L100.0100 ####[facility] [address] [place], [address] Creatinine [Mass/Vol] 1.46 mg/dL High 0.70-1.20 [facility] Comment on above: Performed By: #### L 500.2500, L100.0100 ####[facility] [address] [place], [address] ECRCL 48.18 ml/min Low 50-250 [facility] Comment on above: Performed By: #### L 500.2500, L100.0100 ####[facility] [address] [place], [address] GAP 10 Normal 5-15 [facility] Comment on above: Performed By: #### L 500.2500, L100.0100 ####[facility] [address] [place], [address] GFR/1.73 sq M.predicted among non-blacks MDRD (S/P/Bld) [Vol rate/Area] 50 mL/min/{1.73_m2} Low >60 [facility] Comment on above: Result Comment: mL/m in/1.73m2 CKD-EPI Creatinine Equation (2020) Performed By: #### L 500.2500, L100.0100 ####[facility] [address] [place], [address] Glucose [Mass/Vol] 108 mg/dL High 70-99 [facility] Comment on above: Performed By: #### L 500.2500, L100.0100 ####[facility] [address] [place], [address] Potassium [Moles/Vol] 3.8 mmol/L Normal 3.3-5.1 [facility] Comment on above: Performed By: #### L 500.2500, L100.0100 ####[facility] [address] [place], [address] Sodium [Moles/Vol] 137 mmol/L Normal 133-145 [facility] Comment on above: Performed By: #### L 500.2500, L100.0100 ####[facility] [address] [place], [address] Urea nitrogen [Mass/Vol] 24 mg/dL High 4-19 [facility] Comment on above: Performed By: #### L 500.2500, L100.0100 ####[facility] [address] [place], [address] CBC W/Diff, Automatedon 03- Absolute Lymph 0.57 X10 3/uL Low 0.83-4.51 [facility] Comment on above: Performed By: #### L 500.2500, L100.0100 ####[facility] [address] [place], [address] Absolute Neut 11.0 X10 3/uL High 2.0-7.7 [facility] Comment on above: Performed By: #### L 500.2500, L100.0100 ####[facility] [address] [place], [address] Basophils/100 WBC (Bld) 0.4 % Normal 0-1 [facility] Comment on above: Performed By: #### L 500.2500, L100.0100 ####[facility] [address] [place], [address] Eosinophils/100 WBC (Bld) 3.9 % Normal 0-5 [facility] Comment on above: Performed By: #### L 500.2500, L100.0100 ####[facility] [address] [place], [address] Erythrocyte distribution width (RBC) [Ratio] 15.2 % High 11.6-14.6 [facility] Comment on above: Performed By: #### L 500.2500, L100.0100 ####[facility] [address] [place], [address] Hematocrit (Bld) [Volume fraction] 28.8 % Low 40-54 [facility] Comment on above: Performed By: #### L 500.2500, L100.0100 ####[facility] [address] [place], [address] Hemoglobin (Bld) [Mass/Vol] 9.5 g/dL Low 13.0-16.5 [facility] Comment on above: Performed By: #### L 500.2500, L100.0100 ####[facility] [address] [place], [address] IG% 1.500 High 0.0-0.9 [facility] Comment on above: Result Comment: IG% - Immature Granulocytes (promyelocytes, myelocytes andmetamyelocytes) > 1% indicates that a LEFT SHIFT is Present. Performed By: #### L 500.2500, L100.0100 ####[facility] [address] [place], [address] Lymphocytes/100 WBC (Bld) 4.4 % Low 19-41 [facility] Comment on above: Performed By: #### L 500.2500, L100.0100 ####[facility] [address] [place], [address] MCH (RBC) [Entitic mass] 28.1 pg Normal 27.0-32.0 [facility] Comment on above: Performed By: #### L 500.2500, L100.0100 ####[facility] [address] [place], [address] MCHC (RBC) [Mass/Vol] 33.0 g/dL Normal 32-36 [facility] Comment on above: Performed By: #### L 500.2500, L100.0100 ####[facility] [address] [place], [address] MCV (RBC) [Entitic vol] 85.2 fL Normal 80-94 [facility] Comment on above: Performed By: #### L 500.2500, L100.0100 ####[facility] [address] [place], [address] Monocytes/100 WBC (Bld) 5.8 % Normal 0-10 [facility] Comment on above: Performed By: #### L 500.2500, L100.0100 ####[facility] [address] [place], [address] Neutrophils/100 WBC (Bld) 84.0 % High 47-70 [facility] Comment on above: Performed By: #### L 500.2500, L100.0100 ####[facility] [address] [place], [address] Nucleated RBC (Bld) [#/Vol] 0 10*3/uL Normal 0-5 [facility] Comment on above: Performed By: #### L 500.2500, L100.0100 ####[facility] [address] [place], [address] Platelet mean volume (Bld) [Entitic vol] 10.8 fL Normal 6.2-12.0 [facility] Comment on above: Performed By: #### L 500.2500, L100.0100 ####[facility] [address] [place], [address] Platelets (Bld) [#/Vol] 181 10*3/uL Normal 150-450 [facility] Comment on above: Performed By: #### L 500.2500, L100.0100 ####[facility] [address] [place], [address] RBC (Bld) [#/Vol] 3.38 10*6/uL Low 4.6-6.2 [facility] Comment on above: Performed By: #### L 500.2500, L100.0100 ####[facility] [address] [place], [address] RDW SD 47.2 fl High 35.1-43.9 [facility] Comment on above: Performed By: #### L 500.2500, L100.0100 ####[facility] [address] [place], [address] WBC (Bld) [#/Vol] 13.0 10*3/uL High 4.4-11.0 [facility] Comment on above: Performed By: #### L 500.2500, L100.0100 ####[facility] [address] [place], [address] Consultation - Infectious Dx on 08-17-2024 Consultation - Infectious Dx Normal [facility] Basic Metabolic Profile (BMP )on 08-16-2024 BUN/CRE 17.4 RATIO Normal 10-20 [facility] Comment on above: Performed By: #### L 100.0100, L500.2500 ####[facility] [address] [place], [address] Calcium [Mass/Vol] 7.7 mg/dL Normal 7.6-11.0 [facility] Comment on above: Performed By: #### L 100.0100, L500.2500 ####[facility] [address] [place], [address] Chloride [Moles/Vol] 108 mmol/L Normal 98-108 [facility] Comment on above: Performed By: #### L 100.0100, L500.2500 ####[facility] [address] [place], [address] CO2 [Moles/Vol] 16.2 mmol/L Low 21.0-32.0 [facility] Comment on above: Performed By: #### L 100.0100, L500.2500 ####[facility] [address] [place], [address] Creatinine [Mass/Vol] 1.80 mg/dL High 0.70-1.20 [facility] Comment on above: Performed By: #### L 100.0100, L500.2500 ####[facility] [address] [place], [address] ECRCL 39.08 ml/min Low 50-250 [facility] Comment on above: Performed By: #### L 100.0100, L500.2500 ####[facility] [address] [place], [address] GAP 12 Normal 5-15 [facility] Comment on above: Performed By: #### L 100.0100, L500.2500 ####[facility] [address] [place], [address] GFR/1.73 sq M.predicted among non-blacks MDRD (S/P/Bld) [Vol rate/Area] 39 mL/min/{1.73_m2} Low >60 [facility] Comment on above: Result Comment: mL/m in/1.73m2 CKD-EPI Creatinine Equation (2020) Performed By: #### L 100.0100, L500.2500 ####[facility] [address] [place], [address] Glucose [Mass/Vol] 89 mg/dL Normal 70-99 [facility] Comment on above: Performed By: #### L 100.0100, L500.2500 ####[facility] [address] [place], [address] Potassium [Moles/Vol] 4.1 mmol/L Normal 3.3-5.1 [facility] Comment on above: Performed By: #### L 100.0100, L500.2500 ####[facility] [address] [place], [address] Sodium [Moles/Vol] 137 mmol/L Normal 133-145 [facility] Comment on above: Performed By: #### L 100.0100, L500.2500 ####[facility] [address] [place], [address] Urea nitrogen [Mass/Vol] 31 mg/dL High 4-19 [facility] Comment on above: Performed By: #### L 100.0100, L500.2500 ####[facility] [address] [place], [address] Blood manual differential co mment interpretation (narrative result)Ordered By: Juany Souza on 08-16-2024 Manual differential comment Kristian (Bld) [Interp] See comment [facility] Comment on above: BANDS NOTED Blood vacuolated neutrophils detection by light microscopyOrdered By: Juany Souza on 08-16-2024 Neutrophils.vacuolated LM Ql (Bld) 2+ [facility] CBC W/Diff, Automatedon 08-04 PLT EST ADEQUATE Normal ADEQ [facility] Comment on above: Performed By: #### L 100.0100, L500.2500 ####[facility] [address] [place], [address] RED CELL MORPH NORM C+C Normal NORM C C [facility] Comment on above: Performed By: #### L 100.0100, L500.2500 ####[facility] [address] [place], [address] SMEAR COMMENT Normal [facility] Comment on above: Result Comment: BAND S NOTED Performed By: #### L 100.0100, L500.2500 ####[facility] [address] [place], [address] VACUOLATE CELLS 2+ Normal [facility] Comment on above: Performed By: #### L 100.0100, L500.2500 ####[facility] [address] [place], [address] Erythrocyte morphology asses smentOrdered By: Juany Souza on 08-16-2024 RBC morphology finding Nom (Bld) NORM C+C NORMAL NORM C&C [facility] Manual differential comment Kristian (Bld) [Interp]Ordered By: Juany Souza on 08-16-2024 Differential Comment See comment [facility] Comment on above: BANDS NOTED Neutrophils.vacuolated LM Ql (Bld)Ordered By: Juany Souza on 08-16-2024 Toxic Vacuolation 2+ [facility] RBC morphology finding Nom ( Bld)Ordered By: Juany Souza on 08-16-2024 Red Blood Cell Morphology NORM C+C NORMAL NORM C&C [facility] Basic Metabolic Profile (BMP )on 08-15-2024 BUN/CRE 16.1 RATIO Normal 10-20 [facility] Comment on above: Performed By: #### L 100.0100, L500.2500 ####[facility] [address] [place], [address] Calcium [Mass/Vol] 7.4 mg/dL Low 7.6-11.0 [facility] Comment on above: Performed By: #### L 100.0100, L500.2500 ####[facility] [address] [place], [address] Chloride [Moles/Vol] 110 mmol/L High 98-108 [facility] Comment on above: Performed By: #### L 100.0100, L500.2500 ####[facility] [address] [place], [address] CO2 [Moles/Vol] 16.2 mmol/L Low 21.0-32.0 [facility] Comment on above: Performed By: #### L 100.0100, L500.2500 ####[facility] [address] [place], [address] Creatinine [Mass/Vol] 1.98 mg/dL High 0.70-1.20 [facility] Comment on above: Performed By: #### L 100.0100, L500.2500 ####[facility] [address] [place], [address] ECRCL 35.03 ml/min Low 50-250 [facility] Comment on above: Performed By: #### L 100.0100, L500.2500 ####[facility] [address] [place], [address] GAP 13 Normal 5-15 [facility] Comment on above: Performed By: #### L 100.0100, L500.2500 ####[facility] [address] [place], [address] GFR/1.73 sq M.predicted among non-blacks MDRD (S/P/Bld) [Vol rate/Area] 34 mL/min/{1.73_m2} Low >60 [facility] Comment on above: Result Comment: mL/m in/1.73m2 CKD-EPI Creatinine Equation (2020) Performed By: #### L 100.0100, L500.2500 ####[facility] [address] [place], [address] Glucose [Mass/Vol] 130 mg/dL High 70-99 [facility] Comment on above: Performed By: #### L 100.0100, L500.2500 ####[facility] [address] [place], [address] Potassium [Moles/Vol] 4.6 mmol/L Normal 3.3-5.1 [facility] Comment on above: Performed By: #### L 100.0100, L500.2500 ####[facility] [address] [place], [address] Sodium [Moles/Vol] 139 mmol/L Normal 133-145 [facility] Comment on above: Performed By: #### L 100.0100, L500.2500 ####[facility] [address] [place], [address] Urea nitrogen [Mass/Vol] 32 mg/dL High 4-19 [facility] Comment on above: Performed By: #### L 100.0100, L500.2500 ####[facility] [address] [place], [address] CBC W/Diff, Automatedon 08-04 SMEAR COMMENT Normal [facility] Comment on above: Result Comment: BAND S NOTED Performed By: #### L 100.0100, L500.2500 ####[facility] [address] [place], [address] Consultation - Intensiviston 08-15-2024 Consultation - Pharmacist Helper Normal [facility] Consultation - Urologyon Consultation - Urology Normal [facility] FOLATES,SERUM (FOLIC ACID)on 08-15-2024 FOLATES,SERUM 18.20 ng/mL Normal 4.60-34.80 [facility] Comment on above: Result Comment: Hemo lysis, Results will be affected, Requires Recollection. Performed By: #### L 501.9985, L506.0200, L501.9520 ####[facility] [address] [place], [address] Hemoglobin A1con 08-15-2024 HbA1c (Bld) [Mass fraction] 6.3 % Normal <=5.6 [facility] Comment on above: Performed By: #### L 501.9985, L506.0200, L501.9520 ####[facility] [address] [place], [address] L503.0106on 08-15-2024 Cobalamin (Vitamin B12) [Mass/Vol] 1133 pg/mL High 180-914 [facility] Comment on above: Order Comment: *ADD- ON* Performed By: #### L 503.0106 ####[facility] [address] [place], [address] Lactic Acidon 08-15-2024 Lactate [Moles/Vol] 3.5 mmol/L Invalid Interpretation Code 0.0-2.0 [facility] Comment on above: Order Comment: Y Result Comment: Crit ical Result(s) Called at 0822: by:JOSE DORAN.??Results read back by same. Performed By: #### L 503.6005 ####[facility] [address] [place], [address] Lactic acid measurementOrder ed By: Rajinder Iyer on 08-15-2024 Lactate [Moles/Vol] 3.5 mmol/L High 0.0-2.0 [facility] Comment on above: Critical Result(s) C alled at 0822: by:JOSE RODRIGUEZ. Results read back by same. Operative Reporton Operative Report Normal [facility] PSA, total screeningOrdered By: Rajinder Iyer on 08-15-2024 Prostate Specific Antigen Screen < 0.02 ng/mL Low 0.02-4.00 [facility] Comment on above: This test was perfor med using the [employer] tPSA method. Measured values of a patient sample can vary depending on the testing procedure used. PSA values determined on patient samples by different testing procedures cannot be used interchangeably. If there is a change in PSA assays while monitoring therapy, sequential testing should be performed to confirm baseline values. PSA,Total - Annual Screenon 08-15-2024 PSA,TOT SCREEN < 0.02 Low 0.02-4.00 [facility] Comment on above: Result Comment: This test was performed using the [employer] tPSAmethod. Measured values of a patient??sample can varydepending on the testing procedure used. PSA valuesdetermined on patient samples by different testingprocedures cannot be used interchangeably. If there is achange in PSA assays while monitoring therapy, sequentialtesting should be performed to confirm baseline values. Performed By: #### L 501.9910 ####[facility] [address] [place], [address] Thyroid Stim Hormone (TSH)on 08-15-2024 TSH 3.660 uIU/mL Normal 0.300-4.200 [facility] Comment on above: Performed By: #### L 501.9985, L506.0200, L501.9520 ####[facility] [address] [place], [address] 12 Lead EKGon 08-14-2024 12 Lead EKG Normal [facility] Abdomen/Pelvis without Conto n 08-14-2024 Abdomen/Pelvis without Cont Normal [facility] Absolute neutrophil countOrd ered By: ED PROVIDER on 08-14-2024 Neutrophils (Bld) [#/Vol] 1.5 10*3/uL Low 2.0-7.7 [facility] Activated partial thrombopla stin time (aPTT) in platelet poor plasma by coagulation aOrdered By: Kishore Nicolas on 08-14-2024 aPTT Coag (PPP) [Time] 26.3 s 24.1-36.2 [facility] Amorphous sediment detection in urine sediment by light microscopyOrdered By: Kishore Nicolas on 08-14-2024 Amorphous sediment LM Ql (Urine sed) 2+ PHOS [facility] Anion gap in Serum or Plasma Ordered By: ED PROVIDER on 08-14-2024 Anion gap [Moles/Vol] 17 mmol/L High 5-15 [facility] BUN/creatinine ratioOrdered By: ED PROVIDER on 08-14-2024 Urea nitrogen/Creatinine [Mass ratio] 18.2 mg/mg 10-20 [facility] Bacteria LM.HPF (Urine sed) [#/Area]Ordered By: Kishore Nicolas on 08-14-2024 Urine Bacteria RARE /hpf None Seen [facility] Basophil percentageOrdered B y: ED PROVIDER on 08-14-2024 Basophils/100 WBC (Bld) 0.5 % 0-1 [facility] Bilirubin Test strip Ql (U)O rdered By: Kishore Nicolas on 08-14-2024 Bilirubin Ql (U) Negative Negative [facility] Bilirubin, totalOrdered By: ED PROVIDER on 08-14-2024 Bilirubin [Mass/Vol] 0.25 mg/dL 0.00-1.30 [facility] Blood cultureOrdered By: Gio Nicolas on 08-14-2024 Bacteria identified Cx Nom (Bld) Negative Abnormal [facility] Bacteria identified Cx Nom (Bld) Providencia rettgeri Abnormal [facility] CBC W/Diff, Automatedon 08-04 Anisocytosis Ql (Bld) RARE Normal [facility] Comment on above: Performed By: #### L 500.4050, L100.0100 ####[facility] [address] [place], [address] RED CELL MORPH NORM C+C Normal NORM C C [facility] Comment on above: Performed By: #### L 500.4050, L100.0100 ####[facility] [address] [place], [address] PLT EST ADEQUATE Normal ADEQ [facility] Comment on above: Performed By: #### L 500.4050, L100.0100 ####[facility] [address] [place], [address] SMEAR COMMENT SEE COMMENT Normal [facility] Comment on above: Result Comment: LYMP HOPENIA NOTED Performed By: #### L 500.4050, L100.0100 ####[facility] [address] [place], [address] Carbon dioxide, total [Moles /volume] in Central venous bloodOrdered By: ED PROVIDER on 08-14-2024 CO2 [Moles/Vol] 17.4 mmol/L Low 21.0-32.0 [facility] Chest PA and Lateralon 08-14 Chest PA and Lateral Normal [facility] Chloride assayOrdered By: ED PROVIDER on 08-14-2024 Chloride [Moles/Vol] 105 mmol/L 98-108 [facility] Comprehensive Metabolic Prof ilon 08-14-2024 Albumin [Mass/Vol] 3.7 g/dL Normal 3.4-4.8 [facility] Comment on above: Performed By: #### L 500.4050, L100.0100 ####[facility] [address] [place], [address] Albumin/Globulin [Mass ratio] 1.1 {ratio} Normal 0.9-2.4 [facility] Comment on above: Performed By: #### L 500.4050, L100.0100 ####[facility] [address] [place], [address] ALK PHOS 85 U/L Normal 40-129 [facility] Comment on above: Performed By: #### L 500.4050, L100.0100 ####[facility] [address] [place], [address] ALT [Catalytic activity/Vol] 16 U/L Normal <=46 [facility] Comment on above: Performed By: #### L 500.4050, L100.0100 ####[facility] [address] [place], [address] AST [Catalytic activity/Vol] 24 U/L Normal <=37 [facility] Comment on above: Performed By: #### L 500.4050, L100.0100 ####[facility] [address] [place], [address] Bilirubin [Mass/Vol] 0.25 mg/dL Normal 0.00-1.30 [facility] Comment on above: Performed By: #### L 500.4050, L100.0100 ####[facility] [address] [place], [address] BUN/CRE 18.2 RATIO Normal 10-20 [facility] Comment on above: Performed By: #### L 500.4050, L100.0100 ####[facility] [address] [place], [address] Calcium [Mass/Vol] 9.2 mg/dL Normal 7.6-11.0 [facility] Comment on above: Performed By: #### L 500.4050, L100.0100 ####[facility] [address] [place], [address] Chloride [Moles/Vol] 105 mmol/L Normal 98-108 [facility] Comment on above: Performed By: #### L 500.4050, L100.0100 ####[facility] [address] [place], [address] CO2 [Moles/Vol] 17.4 mmol/L Low 21.0-32.0 [facility] Comment on above: Performed By: #### L 500.4050, L100.0100 ####[facility] [address] [place], [address] Creatinine [Mass/Vol] 1.69 mg/dL High 0.70-1.20 [facility] Comment on above: Performed By: #### L 500.4050, L100.0100 ####[facility] [address] [place], [address] GAP 17 High 5-15 [facility] Comment on above: Performed By: #### L 500.4050, L100.0100 ####[facility] [address] [place], [address] GFR/1.73 sq M.predicted among non-blacks MDRD (S/P/Bld) [Vol rate/Area] 42 mL/min/{1.73_m2} Low >60 [facility] Comment on above: Result Comment: mL/m in/1.73m2 CKD-EPI Creatinine Equation (2020) Performed By: #### L 500.4050, L100.0100 ####[facility] [address] [place], [address] Globulin (S) [Mass/Vol] 3.4 g/dL Normal 2.2-4.2 [facility] Comment on above: Performed By: #### L 500.4050, L100.0100 ####[facility] [address] [place], [address] Glucose [Mass/Vol] 139 mg/dL High 70-99 [facility] Comment on above: Performed By: #### L 500.4050, L100.0100 ####[facility] [address] [place], [address] Potassium [Moles/Vol] 4.5 mmol/L Normal 3.3-5.1 [facility] Comment on above: Result Comment: Hemo lysis present, Results??could be affected.?? Performed By: #### L 500.4050, L100.0100 ####[facility] [address] [place], [address] Sodium [Moles/Vol] 139 mmol/L Normal 133-145 [facility] Comment on above: Performed By: #### L 500.4050, L100.0100 ####[facility] [address] [place], [address] T PROT 7.2 g/dL Normal 5.9-8.4 [facility] Comment on above: Performed By: #### L 500.4050, L100.0100 ####[facility] [address] [place], [address] Urea nitrogen [Mass/Vol] 31 mg/dL High 4-19 [facility] Comment on above: Performed By: #### L 500.4050, L100.0100 ####[facility] [address] [place], [address] Emergency Department Summary on 08-14-2024 Emergency Department Summary Normal [facility] Eosinophil percentageOrdered By: ED PROVIDER on 08-14-2024 Eosinophils/100 WBC (Bld) 5.7 % High 0-5 [facility] Epithelial cells.squamous LM Ql (Urine sed)Ordered By: Kishore Nicolas on 08-14-2024 Epithelial cells.squamous LM.HPF (Urine sed) [#/Area] 5 /[HPF] 0-5 [facility] Erythrocyte distribution wid th ratioOrdered By: ED PROVIDER on 08-14-2024 Erythrocyte distribution width (RBC) [Ratio] 14.0 % 11.6-14.6 [facility] Erythrocyte distribution wid th standard deviationOrdered By: ED PROVIDER on 08-14-2024 Erythrocyte distribution width (RBC) [Entitic vol] 43.3 fL 35.1-43.9 [facility] Folate [Moles/Vol]Ordered By : Rajinder Iyer on 08-14-2024 Serum Folate 18.20 ng/mL 4.60-34.80 [facility] Comment on above: Hemolysis, Results w ill be affected, Requires Recollection. Folate [Moles/volume] in Ser um or PlasmaOrdered By: Rajinder Iyer on 08-14-2024 Folate [Moles/Vol] 18.20 ng/mL 4.60-34.80 [facility] Comment on above: Hemolysis, Results w ill be affected, Requires Recollection. GFR/1.73 sq M.predicted tobias g non-blacks MDRD (S/P/Bld) [Vol rate/Area]Ordered By: ED PROVIDER on 08-14-2024 Estimated GFR (MDRD) Non-Af Amer 42 Low >60 [facility] Comment on above: mL/min/1.73m2 CKD-EP I Creatinine Equation (2020) Glucose Ql (U)Ordered By: Leodan Nicolas on 08-14-2024 Urine Glucose (UA) Normal mg/dl Normal [facility] H AND P Exam - Hospitaliston 08-14-2024 H&P Exam - Hospitalist Normal [facility] Hematocrit Auto (Bld) [Volum e fraction]Ordered By: ED PROVIDER on 08-14-2024 Hematocrit (Bld) [Volume fraction] 36.1 % Low 40-54 [facility] Hemoglobin A1c percentageOrd ered By: Rajinder Iyer on 08-14-2024 HbA1c (Bld) [Mass fraction] 6.3 % >5.7 [facility] Hemoglobin measurementOrdere d By: ED PROVIDER on 08-14-2024 Hemoglobin (Bld) [Mass/Vol] 12.0 g/dL Low 13.0-16.5 [facility] Immature granulocytes/100 WB C Auto (Bld)Ordered By: ED PROVIDER on 08-14-2024 Immature granulocytes/100 WBC (Bld) 1.000 % High 0.0-0.9 [facility] Comment on above: IG% - Immature Granu locytes (promyelocytes, myelocytes and metamyelocytes) > 1% indicates that a LEFT SHIFT is Present. Influenza virus A and B and SARS-CoV-2 (COVID-19) and Respiratory syncytial virus RNAOrdered By: Kishore Nicolas on 08-14-2024 SARS-CoV-2 (COVID-19) RNA MARYJANE+probe Ql (Unsp spec) [facility] International normalized rat io (INR) calculationOrdered By: Kishore Nicolas on 08-14-2024 INR Coag (Bld) [Relative time] 1.2 {INR} [facility] Ketones Test strip Ql (U)Ord ered By: Kishore Nicolas on 08-14-2024 Ketones Ql (U) 5 mg/dl High Negative [facility] Laboratory - Chemistry and C hemistry - challengeOrdered By: ED PROVIDER on 08-14-2024 AST [Catalytic activity/Vol] 24 U/L <38 [facility] - Hematology and Cell countsOrdered By: Kishore Nicolas on 08-14-2024 Anisocytosis Ql (Bld) RARE [facility] Lactic Acidon 08-14-2024 Lactate [Moles/Vol] 4.2 mmol/L Invalid Interpretation Code 0.0-2.0 [facility] Comment on above: Order Comment: Y Result Comment: Crit ical Result(s) Called at: by: YELITZA GARCIA??Results read back by same. Performed By: #### L 300.3900, M200.1000, L300.4310, L503.6005 ####[facility] [address] [place], [place], [address] Lactic acid measurementOrder ed By: Kishore Nicolas on 08-14-2024 Lactate [Moles/Vol] 4.2 mmol/L High 0.0-2.0 [facility] Comment on above: Critical Result(s) C alled at: by: YELITZA GOODWIN Results read back by same. Lymphocytes Auto (Unsp spec) [#/Vol]Ordered By: ED PROVIDER on 08-14-2024 Lymphocytes (Bld) [#/Vol] 0.30 10*3/uL Low 0.83-4.51 [facility] Lymphocytes/100 WBC Auto (Un sp spec)Ordered By: ED PROVIDER on 08-14-2024 Lymphocytes/100 WBC (Bld) 15.5 % Low 19-41 [facility] M100.678on 08-14-2024 M100.678 SARS-CoV-2 (COVID 19) Negative INFLUENZA A Negative INFLUENZA B Negative RSV PCR Negative Normal [facility] Comment on above: Performed By: #### M 100.678, M100.2200 ####[facility] [address] [place], [place], [id number] MCV (mean corpuscular volume ) determinationOrdered By: ED PROVIDER on 08-14-2024 MCV (RBC) [Entitic vol] 85.3 fL 80-94 [facility] Manual differential comment Kristian (Bld) [Interp]Ordered By: Kishore Nicolas on 08-14-2024 Differential Comment SEE COMMENT [facility] Comment on above: LYMPHOPENIA NOTED Mean corpuscular hemoglobin (MCH) determinationOrdered By: ED PROVIDER on 08-14-2024 MCH (RBC) [Entitic mass] 28.4 pg 27.0-32.0 [facility] Mean corpuscular hemoglobin concentration (MCHC) determinationOrdered By: ED PROVIDER on 08-14-2024 MCHC (RBC) [Mass/Vol] 33.2 g/dL 32-36 [facility] Mean platelet volume determi nationOrdered By: ED PROVIDER on 08-14-2024 Platelet mean volume (Bld) [Entitic vol] 9.6 fL 6.2-12.0 [facility] Microscopic analysis of urin e for red blood cells (RBC)Ordered By: Kishore Nicolas on 08-14-2024 Microscopic analysis of urine for red blood cells (RBC) > 100 SEEN /hpf 0-5 [facility] Urine RBC > 100 SEEN /hpf 0-5 [facility] Monocyte percentageOrdered B y: ED PROVIDER on 08-14-2024 Monocytes/100 WBC (Bld) 0.5 % 0-10 [facility] Mucus LM Ql (Urine sed)Order ed By: Kishore Nicolas on 08-14-2024 Mucus Ql (Urine sed) 0 SEEN /hpf [facility] Neutrophil percentageOrdered By: ED PROVIDER on 08-14-2024 Neutrophils/100 WBC (Bld) 76.8 % High 47-70 [facility] Nitrite Test strip Ql (U)Ord ered By: Kishore Nicolas on 08-14-2024 Nitrite Ql (U) Negative Negative [facility] Nucleated red blood cell per centageOrdered By: ED PROVIDER on 08-14-2024 Nucleated RBC/100 WBC (Bld) [Ratio] 0 % 0-5 [facility] Partial Thromboplast Timeon 08-14-2024 aPTT Coag (Bld) [Time] 26.3 s Normal 24.1-36.2 [facility] Comment on above: Performed By: #### L 300.3900, M200.1000, L300.4310, L503.6005 ####[facility] [address] [place], [address] Platelet countOrdered By: ED PROVIDER on 08-14-2024 Platelets (Bld) [#/Vol] 229 10*3/uL 150-450 [facility] Platelets LM Ql (Bld)Ordered By: Kishore Nicolas on 08-14-2024 Platelet Estimate ADEQUATE ADEQ [facility] Potassium (Unsp spec) [Mass/ Vol]Ordered By: ED PROVIDER on 08-14-2024 Potassium [Moles/Vol] 4.5 mmol/L 3.3-5.1 [facility] Comment on above: Hemolysis present, R esults could be affected. Protein Test strip Ql (U)Ord ered By: Kishore Nicolas on 08-14-2024 Protein Ql (U) 100 mg/dl High Negative [facility] Prothrombin Time w/INRon INR Coag (PPP) [Relative time] 1.2 {INR} Normal [facility] Comment on above: Performed By: #### L 300.3900, M200.1000, L300.4310, L503.6005 ####[facility] [address] [place], [address] PT Coag (PPP) [Time] 15.5 s High 11.7-14.9 [facility] Comment on above: Performed By: #### L 300.3900, M200.1000, L300.4310, L503.6005 ####[facility] [address] [place], [address] Prothrombin timeOrdered By: Kishore Nicolas on 08-14-2024 PT Coag (PPP) [Time] 15.5 s High 11.7-14.9 [facility] RBC Auto (Bld) [#/Vol]Ordere d By: ED PROVIDER on 08-14-2024 RBC (Bld) [#/Vol] 4.23 10*6/uL Low 4.6-6.2 [facility] RBC morphology finding Nom ( Bld)Ordered By: Kishore Nicolas on 08-14-2024 Red Blood Cell Morphology NORM C+C NORMAL NORM C&C [facility] Serum creatinine measurement (mass/volume)Ordered By: ED PROVIDER on 08-14-2024 Creatinine [Mass/Vol] 1.69 mg/dL High 0.70-1.20 [facility] Serum globulin measurementOr dered By: ED PROVIDER on 08-14-2024 Globulin (S) [Mass/Vol] 3.4 g/dL 2.2-4.2 [facility] Serum glucose measurement (m ass/volume)Ordered By: ED PROVIDER on 08-14-2024 Glucose [Mass/Vol] 139 mg/dL High 70-99 [facility] Serum or plasma alanine morris otransferase (ALT) measurementOrdered By: ED PROVIDER on 08-14-2024 ALT [Catalytic activity/Vol] 16 U/L <47 [facility] Serum or plasma albumin janusz urement (mass/volume)Ordered By: ED PROVIDER on 08-14-2024 Albumin [Mass/Vol] 3.7 g/dL 3.4-4.8 [facility] Serum or plasma albumin/glob ulin mass ratioOrdered By: ED PROVIDER on 08-14-2024 Albumin/Globulin [Mass ratio] 1.1 {ratio} 0.9-2.4 [facility] Serum or plasma alkaline trice sphatase measurementOrdered By: ED PROVIDER on 08-14-2024 ALP [Catalytic activity/Vol] 85 U/L 40-129 [facility] Serum or plasma calcium janusz urement (mass/volume)Ordered By: ED PROVIDER on 08-14-2024 Calcium [Mass/Vol] 9.2 mg/dL 7.6-11.0 [facility] Serum or plasma urea nitroge n measurement (mass/volume)Ordered By: ED PROVIDER on 08-14-2024 Urea nitrogen [Mass/Vol] 31 mg/dL High 4-19 [facility] Sodium levelOrdered By: PEGGY SILVA on 08-14-2024 Sodium [Moles/Vol] 139 mmol/L 133-145 [facility] Squamous epithelial cells de tection in urine sediment by light microscopyOrdered By: Kishore Nicolas on 08-14-2024 Epithelial cells.squamous LM Ql (Urine sed) 5-10 SEEN /hpf 0-5 [facility] TSH DL <= 0.005 mIU/L QnOrde red By: Rajinder Iyer on 08-14-2024 Thyroid Stimulating Hormone (TSH) 3.660 uIU/mL 0.300-4.200 [facility] TSH Qn 3.660 uIU/mL 0.300-4.200 [facility] Total proteinOrdered By: ED PROVIDER on 08-14-2024 Protein [Mass/Vol] 7.2 g/dL 5.9-8.4 [facility] Urinalysis, Completeon 08-14 AMORPHOUS 2+ PHOS Normal [facility] Comment on above: Order Comment: COLOR OF URINE MAY AFFECT DIPSTICK RESULTS.CT SCAN SPECIAL PROCEDURES TECHNOLOGIST TO SPECIFY Performed By: #### L 400.0001 ####[facility] [address] [facility] [address] BACTERIA RARE Normal None Seen [facility] Comment on above: Order Comment: COLOR OF URINE MAY AFFECT DIPSTICK RESULTS.CT SCAN SPECIAL PROCEDURES TECHNOLOGIST TO SPECIFY Performed By: #### L 400.0001 ####[facility] [address] [facility] [address] EPI,SQUAMOUS 5-10 SEEN Normal 0-5 [facility] Comment on above: Order Comment: COLOR OF URINE MAY AFFECT DIPSTICK RESULTS.CT SCAN SPECIAL PROCEDURES TECHNOLOGIST TO SPECIFY Performed By: #### L 400.0001 ####[facility] [address] [facility] [address] RBC > 100 SEEN Normal 0-5 [facility] Comment on above: Order Comment: COLOR OF URINE MAY AFFECT DIPSTICK RESULTS.CT SCAN SPECIAL PROCEDURES TECHNOLOGIST TO SPECIFY Performed By: #### L 400.0001 ####[facility] [address] [facility] [address] WBC 50-100 SEEN Normal 0-5 [facility] Comment on above: Order Comment: COLOR OF URINE MAY AFFECT DIPSTICK RESULTS.CT SCAN SPECIAL PROCEDURES TECHNOLOGIST TO SPECIFY Performed By: #### L 400.0001 ####[facility] [address] [place], [address] Mucus Ql (Urine sed) 0 SEEN Normal [facility] Comment on above: Order Comment: COLOR OF URINE MAY AFFECT DIPSTICK RESULTS.CT SCAN SPECIAL PROCEDURES TECHNOLOGIST TO SPECIFY Performed By: #### L 400.0001 ####[facility] [address] [place], [address] Urine blood detectionOrdered By: Kishore Nicolas on 08-14-2024 Urine Occult Blood 250 /ul High Negative [facility] Urine clarityOrdered By: Gio Nicolas on 08-14-2024 Clarity (U) Cloudy Clear [facility] Urine color determinationOrd ered By: Kishore Nicolas on 08-14-2024 Color (U) Red Yellow [facility] Urine cultureOrdered By: Gio Nicolas on 08-14-2024 Bacteria identified Cx Nom (U) Providencia rettgeri Abnormal [facility] Bacteria identified Cx Nom (U) Myroides spp Abnormal [facility] Bacteria identified Cx Nom (U) Enterococcus faecalis Abnormal [facility] Urine glucose detectionOrder ed By: Kishore Nicolas on 08-14-2024 Glucose Ql (U) Normal mg/dl Normal [facility] Urine leukocyte esterase det ection by dipstickOrdered By: Kishore Nicolas on 08-14-2024 Leukocyte esterase Test strip Ql (U) 500 /ul High Negative [facility] Urine pHOrdered By: Kishore paul on 08-14-2024 pH (U) 8.0 [pH] 5.0 - 8.0 [facility] Urine sediment bacteria coun t by microscopy (number/high power field)Ordered By: Kishore Nicolas on 08-14-2024 Bacteria LM.HPF (Urine sed) [#/Area] RARE /hpf None Seen [facility] Urine specific gravity measu rementOrdered By: Kishore Nicolas on 08-14-2024 Specific gravity (U) [Rel density] 1.010 1.002-1.030 [facility] Urine urobilinogen measureme ntOrdered By: Kishore Nicolas on 08-14-2024 Urobilinogen Ql (U) Normal mg/dl Normal [facility] Urobilinogen Ql (U)Ordered B y: Kishore Nicolas on 08-14-2024 Urine Urobilinogen Normal mg/dl Normal [facility] Vitamin B12 ser/plasOrdered By: Rajinder Iyer on 08-14-2024 Cobalamin (Vitamin B12) [Mass/Vol] 1133 pg/mL High 180-914 [facility] White blood cell (WBC) count Ordered By: ED PROVIDER on 08-14-2024 WBC (Bld) [#/Vol] 1.9 10*3/uL Low 4.4-11.0 [facility] White blood cell countOrdere d By: Kishore Nicolas on 08-14-2024 Urine WBC 50-100 SEEN /hpf 0-5 [facility] White blood cell count 50-100 SEEN /hpf 0-5 [facility] aPTT Coag (PPP) [Time]Ordere d By: Kishore Nicolas on 08-14-2024 aPTT Coag (Bld) [Time] 26.3 s 24.1-36.2 [facility] Absolute lymphocyte countOrd ered By: Kelvin aHn on 07-19-2024 Lymphocytes Auto (Unsp spec) [#/Vol] 0.56 10*3/uL Low 0.83-4.51 [facility] Absolute neutrophil countOrd ered By: Kelvin Han on 07-19-2024 Neutrophils (Bld) [#/Vol] 2.9 10*3/uL 2.0-7.7 [facility] Albumin to globulin ratioOrd ered By: Kelvin Han on 07-19-2024 Albumin/Globulin [Mass ratio] 0.7 {ratio} Low 0.9-2.4 [facility] Automated lymphocyte count a s percentage of total leukocytesOrdered By: Kelvin Han on 07-19-2024 Lymphocytes/100 WBC Auto (Unsp spec) 13.0 % Low 19-41 [facility] Basophil percentageOrdered B y: Kelvin Han on 07-19-2024 Basophils/100 WBC (Bld) 0.5 % 0-1 [facility] Bilirubin, totalOrdered By: Kelvin Han on 07-19-2024 Bilirubin [Mass/Vol] 0.30 mg/dL 0.20-1.00 [facility] Comment on above: For patients on eltr ombopag therapy, use of Dimension [place] TBIL is not recommended. Blood urea nitrogen (BUN)/cr eatinine ratioOrdered By: Kelvin Han on 07-19-2024 Urea nitrogen/Creatinine [Mass ratio] 16.3 mg/mg 10-20 [facility] CBC W/Diff, Automatedon 07-07 Absolute Lymph 0.56 X10 3/uL Low 0.83-4.51 [facility] Comment on above: Order Comment: Inter face Comments:Hives reoccuringOrder Date: 07/19/24Order Info: 018- - CBCDComments: Hives reoccuring Performed By: #### L 500.4050, L100.0100, L501.9520 ####[facility] [address] [place], [place], [address] Absolute Neut 2.9 X10 3/uL Normal 2.0-7.7 [facility] Comment on above: Order Comment: Inter face Comments:Hives reoccuringOrder Date: 07/19/24Order Info: 018- - CBCDComments: Hives reoccuring Performed By: #### L 500.4050, L100.0100, L501.9520 ####[facility] [address] [place], [address] Basophils/100 WBC (Bld) 0.5 % Normal 0-1 [facility] Comment on above: Order Comment: Inter face Comments:Hives reoccuringOrder Date: 07/19/24Order Info: 018- - CBCDComments: Hives reoccuring Performed By: #### L 500.4050, L100.0100, L501.9520 ####[facility] [address] [place], [address] Eosinophils/100 WBC (Bld) 9.0 % High 0-5 [facility] Comment on above: Order Comment: Inter face Comments:Hives reoccuringOrder Date: 07/19/24Order Info: 0184- - CBCDComments: Hives reoccuring Performed By: #### L 500.4050, L100.0100, L501.9520 ####[facility] [address] [place], [address] Erythrocyte distribution width (RBC) [Ratio] 13.7 % Normal 11.6-14.6 [facility] Comment on above: Order Comment: Inter face Comments:Hives reoccuringOrder Date: 07/19/24Order Info: 018- - CBCDComments: Hives reoccuring Performed By: #### L 500.4050, L100.0100, L501.9520 ####[facility] [address] [place], [address] Hematocrit (Bld) [Volume fraction] 35.0 % Low 40-54 [facility] Comment on above: Order Comment: Inter face Comments:Hives reoccuringOrder Date: 07/19/24Order Info: 01809-04 - CBCDComments: Hives reoccuring Performed By: #### L 500.4050, L100.0100, L501.9520 ####[facility] [address] [place], [address] Hemoglobin (Bld) [Mass/Vol] 11.2 g/dL Low 13.0-16.5 [facility] Comment on above: Order Comment: Inter face Comments:Hives reoccuringOrder Date: 07/19/24Order Info: 018- - CBCDComments: Hives reoccuring Performed By: #### L 500.4050, L100.0100, L501.9520 ####[facility] [address] [place], [address] IG% 0.200 Normal 0.0-0.9 [facility] Comment on above: Order Comment: Inter face Comments:Hives reoccuringOrder Date: 07/19/24Order Info: 183-06 - CBCDComments: Hives reoccuring Result Comment: IG% - Immature Granulocytes (promyelocytes, myelocytes andmetamyelocytes) > 1% indicates that a LEFT SHIFT is Present. Performed By: #### L 500.4050, L100.0100, L501.9520 ####[facility] [address] [place], [address] Lymphocytes/100 WBC (Bld) 13.0 % Low 19-41 [facility] Comment on above: Order Comment: Inter face Comments:Hives reoccuringOrder Date: 07/19/24Order Info: 183-06 - CBCDComments: Hives reoccuring Performed By: #### L 500.4050, L100.0100, L501.9520 ####[facility] [address] [place], [address] MCH (RBC) [Entitic mass] 27.7 pg Normal 27.0-32.0 [facility] Comment on above: Order Comment: Inter face Comments:Hives reoccuringOrder Date: 07/19/24Order Info: 183-06 - CBCDComments: Hives reoccuring Performed By: #### L 500.4050, L100.0100, L501.9520 ####[facility] [address] [place], [address] MCHC (RBC) [Mass/Vol] 32.0 g/dL Normal 32-36 [facility] Comment on above: Order Comment: Inter face Comments:Hives reoccuringOrder Date: 07/19/24Order Info: 183-06 - CBCDComments: Hives reoccuring Performed By: #### L 500.4050, L100.0100, L501.9520 ####[facility] [address] [place], [address] MCV (RBC) [Entitic vol] 86.4 fL Normal 80-94 [facility] Comment on above: Order Comment: Inter face Comments:Hives reoccuringOrder Date: 07/19/24Order Info: 01809-04 - CBCDComments: Hives reoccuring Performed By: #### L 500.4050, L100.0100, L501.9520 ####[facility] [address] [place], [address] Monocytes/100 WBC (Bld) 10.9 % High 0-10 [facility] Comment on above: Order Comment: Inter face Comments:Hives reoccuringOrder Date: 07/19/24Order Info: 01809-04 - CBCDComments: Hives reoccuring Performed By: #### L 500.4050, L100.0100, L501.9520 ####[facility] [address] [place], [address] Neutrophils/100 WBC (Bld) 66.4 % Normal 47-70 [facility] Comment on above: Order Comment: Inter face Comments:Hives reoccuringOrder Date: 07/19/24Order Info: 01809-04 - CBCDComments: Hives reoccuring Performed By: #### L 500.4050, L100.0100, L501.9520 ####[facility] [address] [place], [address] Nucleated RBC (Bld) [#/Vol] 0 10*3/uL Normal 0-5 [facility] Comment on above: Order Comment: Inter face Comments:Hives reoccuringOrder Date: 07/19/24Order Info: 01809-04 - CBCDComments: Hives reoccuring Performed By: #### L 500.4050, L100.0100, L501.9520 ####[facility] [address] [place], [address] Platelet mean volume (Bld) [Entitic vol] 10.4 fL Normal 6.2-12.0 [facility] Comment on above: Order Comment: Inter face Comments:Hives reoccuringOrder Date: 07/19/24Order Info: 183-06 - CBCDComments: Hives reoccuring Performed By: #### L 500.4050, L100.0100, L501.9520 ####[facility] [address] [place], [address] Platelets (Bld) [#/Vol] 224 10*3/uL Normal 150-450 [facility] Comment on above: Order Comment: Inter face Comments:Hives reoccuringOrder Date: 07/19/24Order Info: 183-06 - CBCDComments: Hives reoccuring Performed By: #### L 500.4050, L100.0100, L501.9520 ####[facility] [address] [place], [address] RBC (Bld) [#/Vol] 4.05 10*6/uL Low 4.6-6.2 [facility] Comment on above: Order Comment: Inter face Comments:Hives reoccuringOrder Date: 07/19/24Order Info: 183-06 - CBCDComments: Hives reoccuring Performed By: #### L 500.4050, L100.0100, L501.9520 ####[facility] [address] [place], [address] RDW SD 42.9 fl Normal 35.1-43.9 [facility] Comment on above: Order Comment: Inter face Comments:Hives reoccuringOrder Date: 07/19/24Order Info: 183-06 - CBCDComments: Hives reoccuring Performed By: #### L 500.4050, L100.0100, L501.9520 ####[facility] [address] [place], [address] WBC (Bld) [#/Vol] 4.3 10*3/uL Low 4.4-11.0 [facility] Comment on above: Order Comment: Inter face Comments:Hives reoccuringOrder Date: 07/19/24Order Info: 0184-1 - CBCDComments: Hives reoccuring Performed By: #### L 500.4050, L100.0100, L501.9520 ####[facility] [address] [place], [place], [id number] Carbon dioxide measurementOr dered By: Kelvin Han on 07-19-2024 CO2 [Moles/Vol] 23.0 mmol/L 21.0-32.0 [facility] Chloride measurementOrdered By: Kelvin Han on 07-19-2024 Chloride [Moles/Vol] 106 mmol/L 98-107 [facility] Comprehensive Metabolic Prof ilon 07-19-2024 Albumin [Mass/Vol] 3.0 g/dL Low 3.2-5.0 [facility] Comment on above: Order Comment: Inter face Comments:Hives reoccuringOrder Date: 07/19/24Order Info: 0786-1 - CMPOrder Info: 3016-3 - TSHComments: Hives reoccuringHives reoccuring Performed By: #### L 500.4050, L100.0100, L501.9520 ####[facility] [address] [place], [address] Albumin/Globulin [Mass ratio] 0.7 {ratio} Low 0.9-2.4 [facility] Comment on above: Order Comment: Inter face Comments:Hives reoccuringOrder Date: 07/19/24Order Info: 0786-1 - CMPOrder Info: 3016-3 - TSHComments: Hives reoccuringHives reoccuring Performed By: #### L 500.4050, L100.0100, L501.9520 ####[facility] [address] [place], [address] ALK P 76 U/L Normal 45-117 [facility] Comment on above: Order Comment: Inter face Comments:Hives reoccuringOrder Date: 07/19/24Order Info: 0786-1 - CMPOrder Info: 3013 - TSHComments: Hives reoccuringHives reoccuring Performed By: #### L 500.4050, L100.0100, L501.9520 ####[facility] [address] [place], [address] ALT [Catalytic activity/Vol] 19 U/L Normal 16-61 [facility] Comment on above: Order Comment: Inter face Comments:Hives reoccuringOrder Date: 07/19/24Order Info: 0786-1 - CMPOrder Info: 63 - TSHComments: Hives reoccuringHives reoccuring Performed By: #### L 500.4050, L100.0100, L501.9520 ####[facility] [address] [place], [address] AST [Catalytic activity/Vol] 20 U/L Normal 15-37 [facility] Comment on above: Order Comment: Inter face Comments:Hives reoccuringOrder Date: 07/19/24Order Info: 0786-1 - CMPOrder Info: 63 - TSHComments: Hives reoccuringHives reoccuring Performed By: #### L 500.4050, L100.0100, L501.9520 ####[facility] [address] [place], [address] Bilirubin [Mass/Vol] 0.30 mg/dL Normal 0.20-1.00 [facility] Comment on above: Order Comment: Inter face Comments:Hives reoccuringOrder Date: 07/19/24Order Info: 0786-1 - CMPOrder Info: [id number] - TSHComments: Hives reoccuringHives reoccuring Result Comment: For patients on eltrombopag therapy, use of Dimension [place] TBIL is not recommended. Performed By: #### L 500.4050, L100.0100, L501.9520 ####[facility] [address] [place], [address] BUN/CRE 16.3 RATIO Normal 10-20 [facility] Comment on above: Order Comment: Inter face Comments:Hives reoccuringOrder Date: 07/19/24Order Info: 785-06 - CMPOrder Info: 3013 - TSHComments: Hives reoccuringHives reoccuring Performed By: #### L 500.4050, L100.0100, L501.9520 ####[facility] [address] [place], [address] CA,Total 9.2 mg/dL Normal 8.5-10.1 [facility] Comment on above: Order Comment: Inter face Comments:Hives reoccuringOrder Date: 07/19/24Order Info: 785-06 - CMPOrder Info: 3015-08 - TSHComments: Hives reoccuringHives reoccuring Performed By: #### L 500.4050, L100.0100, L501.9520 ####[facility] [address] [place], [address] Chloride [Moles/Vol] 106 mmol/L Normal 98-107 [facility] Comment on above: Order Comment: Inter face Comments:Hives reoccuringOrder Date: 07/19/24Order Info: 785-06 - CMPOrder Info: 3 - TSHComments: Hives reoccuringHives reoccuring Performed By: #### L 500.4050, L100.0100, L501.9520 ####[facility] [address] [place], [address] CO2 [Moles/Vol] 23.0 mmol/L Normal 21.0-32.0 [facility] Comment on above: Order Comment: Inter face Comments:Hives reoccuringOrder Date: 07/19/24Order Info: 785-06 - CMPOrder Info: 3013 - TSHComments: Hives reoccuringHives reoccuring Performed By: #### L 500.4050, L100.0100, L501.9520 ####[facility] [address] [place], [address] Creatinine [Mass/Vol] 1.47 mg/dL High 0.70-1.30 [facility] Comment on above: Order Comment: Inter face Comments:Hives reoccuringOrder Date: 07/19/24Order Info: 0786-1 - CMPOrder Info: 3016-3 - TSHComments: Hives reoccuringHives reoccuring Result Comment: The validity of the calculated GFR GFRAA in patients over70 years has not been determined. Clinical correlation isessential. Performed By: #### L 500.4050, L100.0100, L501.9520 ####[facility] [address] [place], [address] EST GFR - AA 60 mL/min Normal >60 [facility] Comment on above: Order Comment: Inter face Comments:Hives reoccuringOrder Date: 07/19/24Order Info: 0786-1 - CMPOrder Info: 3016-3 - TSHComments: Hives reoccuringHives reoccuring Result Comment: Afri can [place] GFR Calc Performed By: #### L 500.4050, L100.0100, L501.9520 ####[facility] [address] [place], [address] GAP 7 Normal 5-15 [facility] Comment on above: Order Comment: Inter face Comments:Hives reoccuringOrder Date: 07/19/24Order Info: 0786-1 - CMPOrder Info: 3016-3 - TSHComments: Hives reoccuringHives reoccuring Performed By: #### L 500.4050, L100.0100, L501.9520 ####[facility] [address] [place], [address] GFR/1.73 sq M.predicted among non-blacks MDRD (S/P/Bld) [Vol rate/Area] 49 mL/min/{1.73_m2} Low >60 [facility] Comment on above: Order Comment: Inter face Comments:Hives reoccuringOrder Date: 07/19/24Order Info: 0786- - CMPOrder Info: 6-3 - TSHComments: Hives reoccuringHives reoccuring Result Comment: Non- GFR Calc Performed By: #### L 500.4050, L100.0100, L501.9520 ####[facility] [address] [place], [address] Globulin (S) [Mass/Vol] 4.6 g/dL High 2.2-4.2 [facility] Comment on above: Order Comment: Inter face Comments:Hives reoccuringOrder Date: 07/19/24Order Info: 785- - CMPOrder Info: 3 - TSHComments: Hives reoccuringHives reoccuring Performed By: #### L 500.4050, L100.0100, L501.9520 ####[facility] [address] [place], [address] Glucose [Mass/Vol] 118 mg/dL High 74-106 [facility] Comment on above: Order Comment: Inter face Comments:Hives reoccuringOrder Date: 07/19/24Order Info: 785-06 - CMPOrder Info: 3015-08 - TSHComments: Hives reoccuringHives reoccuring Result Comment: Fast ing Glucose result from 100 to 125 mg/dLsuggests IMPAIRED HOMEOSTASIS per A.D.A. criteria. Performed By: #### L 500.4050, L100.0100, L501.9520 ####[facility] [address] [place], [address] Potassium [Moles/Vol] 4.4 mmol/L Normal 3.5-5.1 [facility] Comment on above: Order Comment: Inter face Comments:Hives reoccuringOrder Date: 07/19/24Order Info: 07- - CMPOrder Info: 30163 - TSHComments: Hives reoccuringHives reoccuring Performed By: #### L 500.4050, L100.0100, L501.9520 ####[facility] [address] [place], [address] Sodium [Moles/Vol] 136 mmol/L Normal 136-145 [facility] Comment on above: Order Comment: Inter face Comments:Hives reoccuringOrder Date: 07/19/24Order Info: 0786-1 - CMPOrder Info: 3016-3 - TSHComments: Hives reoccuringHives reoccuring Performed By: #### L 500.4050, L100.0100, L501.9520 ####[facility] [address] [place], [address] T PROT 7.6 g/dL Normal 6.4-8.2 [facility] Comment on above: Order Comment: Inter face Comments:Hives reoccuringOrder Date: 07/19/24Order Info: 0786-1 - CMPOrder Info: [id number] - TSHComments: Hives reoccuringHives reoccuring Performed By: #### L 500.4050, L100.0100, L501.9520 ####[facility] [address] [place], [address] Urea nitrogen [Mass/Vol] 24 mg/dL High 7-18 [facility] Comment on above: Order Comment: Inter face Comments:Hives reoccuringOrder Date: 07/19/24Order Info: 0786-1 - CMPOrder Info: 30163 - TSHComments: Hives reoccuringHives reoccuring Performed By: #### L 500.4050, L100.0100, L501.9520 ####[facility] [address] [place], [address] Eosinophil percentageOrdered By: Kelvin Han on 07-19-2024 Eosinophils/100 WBC (Bld) 9.0 % High 0-5 [facility] Erythrocyte Sed Rateon 07-19 SED RATE 33 mm/hr High 0-20 [facility] Comment on above: Order Comment: Inter face Comments:Hives reoccuringOrder Date: 07/19/24Order Info: 0184-1 - CBCDComments: Hives reoccuring Performed By: #### L 101.9900 ####[facility] [address] [place], [address] Erythrocyte distribution wid th ratioOrdered By: Kelvin Han on 07-19-2024 Erythrocyte distribution width (RBC) [Ratio] 13.7 % 11.6-14.6 [facility] Erythrocyte distribution wid th standard deviationOrdered By: Kelvin Han on 07-19-2024 Erythrocyte distribution width (RBC) [Entitic vol] 42.9 fL 35.1-43.9 [facility] Erythrocyte distribution width (RBC) [Ratio] 42.9 fl 35.1-43.9 [facility] Erythrocyte sedimentation ra teOrdered By: Kelvin Han on 07-19-2024 ESR (Bld) [Velocity] 33 mm/h High 0-20 [facility] Estimated glomerular filtrat ion rate (GFR) AmericanOrdered By: Kelvin Han on 07-19-2024 Estimated GFR (MDRD) Amer 60 mL/min >60 [facility] Comment on above: GFR Calc Glomerular filtration rate ( GFR) estimationOrdered By: Kelvin Han on 07-19-2024 Estimated GFR (MDRD) Non-Af Amer 49 mL/min Low >60 [facility] Comment on above: Non- GFR Calc GFR/1.73 sq M.predicted among non-blacks MDRD (S/P/Bld) [Vol rate/Area] 49 mL/min/{1.73_m2} Low >60 [facility] Comment on above: Non- GFR Calc Glucose measurementOrdered B y: Kelvin Han on 07-19-2024 Glucose [Mass/Vol] 118 mg/dL High 74-106 [facility] Comment on above: Fasting Glucose resu lt from 100 to 125 mg/dL suggests IMPAIRED HOMEOSTASIS per A.D.A. criteria. Hematocrit Auto (Bld) [Volum e fraction]Ordered By: Kelvin Han on 07-19-2024 Hematocrit (Bld) [Volume fraction] 35.0 % Low 40-54 [facility] Hemoglobin measurementOrdere d By: Kelvin Han on 07-19-2024 Hemoglobin (Bld) [Mass/Vol] 11.2 g/dL Low 13.0-16.5 [facility] Immature granulocytes/100 WB C Auto (Bld)Ordered By: Kelvin Han on 07-19-2024 Immature granulocytes/100 WBC (Bld) 0.200 % 0.0-0.9 [facility] Comment on above: IG% - Immature Granu locytes (promyelocytes, myelocytes and metamyelocytes) > 1% indicates that a LEFT SHIFT is Present. Laboratory - Chemistry and C hemistry - challengeOrdered By: Kelvin Han on 07-19-2024 AST [Catalytic activity/Vol] 20 U/L 15-37 [facility] Lymphocytes Auto (Unsp spec) [#/Vol]Ordered By: Kelvin Han on 07-19-2024 Lymphocytes (Bld) [#/Vol] 0.56 10*3/uL Low 0.83-4.51 [facility] Lymphocytes/100 WBC Auto (Un sp spec)Ordered By: Kelvin Han on 07-19-2024 Lymphocytes/100 WBC (Bld) 13.0 % Low 19-41 [facility] MCV (mean corpuscular volume ) determinationOrdered By: Kelvin Han on 07-19-2024 MCV (RBC) [Entitic vol] 86.4 fL 80-94 [facility] Mean corpuscular hemoglobin (MCH) determinationOrdered By: Kelvin Han on 07-19-2024 MCH (RBC) [Entitic mass] 27.7 pg 27.0-32.0 [facility] Mean corpuscular hemoglobin concentration (MCHC) determinationOrdered By: Kelvin Han on 07-19-2024 MCHC (RBC) [Mass/Vol] 32.0 g/dL 32-36 [facility] Mean platelet volume determi nationOrdered By: Kelvin Han on 07-19-2024 Platelet mean volume (Bld) [Entitic vol] 10.4 fL 6.2-12.0 [facility] Monocyte percentageOrdered B y: Kelvin Han on 07-19-2024 Monocytes/100 WBC (Bld) 10.9 % High 0-10 [facility] Neutrophil percentageOrdered By: Kelvin Han on 07-19-2024 Neutrophils/100 WBC (Bld) 66.4 % 47-70 [facility] Nucleated red blood cell per centageOrdered By: Kelvin Han on 07-19-2024 Nucleated RBC/100 WBC (Bld) [Ratio] 0 % 0-5 [facility] Platelet countOrdered By: Itzel Han on 07-19-2024 Platelets (Bld) [#/Vol] 224 10*3/uL 150-450 [facility] Potassium measurementOrdered By: Kelvin Han on 07-19-2024 Potassium [Moles/Vol] 4.4 mmol/L 3.5-5.1 [facility] RBC Auto (Bld) [#/Vol]Ordere d By: Kelvin Han on 07-19-2024 RBC (Bld) [#/Vol] 4.05 10*6/uL Low 4.6-6.2 [facility] Serum anion gap measurementO rdered By: Kelvin Han on 07-19-2024 Anion gap [Moles/Vol] 7 mmol/L 5-15 [facility] Serum globulin measurementOr dered By: Kelvin Han on 07-19-2024 Globulin (S) [Mass/Vol] 4.6 g/dL High 2.2-4.2 [facility] Serum or plasma alanine morris otransferase (ALT) measurementOrdered By: Kelvin Han on 07-19-2024 ALT [Catalytic activity/Vol] 19 U/L 16-61 [facility] Serum or plasma albumin janusz urement (mass/volume)Ordered By: Kelvin Han on 07-19-2024 Albumin [Mass/Vol] 3.0 g/dL Low 3.2-5.0 [facility] Serum or plasma alkaline trice sphatase measurementOrdered By: Kelvin Han on 07-19-2024 ALP [Catalytic activity/Vol] 76 U/L 45-117 [facility] Serum or plasma calcium janusz urement (mass/volume)Ordered By: Kelvin Han on 02-13-2025 Calcium [Mass/Vol] 9.2 mg/dL 8.5-10.1 [facility] Serum or plasma creatinine m easurement (mass/volume)Ordered By: Kelvin Han on 07-19-2024 Creatinine [Mass/Vol] 1.47 mg/dL High 0.70-1.30 [facility] Comment on above: The validity of the calculated GFR & GFRAA in patients over 70 years has not been determined. Clinical correlation is essential. Serum or plasma thyroid stim ulating hormone (TSH) measurement (units/volume)Ordered By: Kelvin Han on 07-19-2024 TSH Qn 2.460 uIU/mL 0.358-3.740 [facility] Serum or plasma urea nitroge n measurement (mass/volume)Ordered By: Kelvin Han on 07-19-2024 Urea nitrogen [Mass/Vol] 24 mg/dL High 7-18 [facility] Sodium levelOrdered By: Panfilo Han on 07-19-2024 Sodium [Moles/Vol] 136 mmol/L 136-145 [facility] TSH QnOrdered By: Eduardo Han on 07-19-2024 Thyroid Stimulating Hormone (TSH) 2.460 uIU/mL 0.358-3.740 [facility] Thyroid Stim Hormone (TSH)on 07-19-2024 TSH 2.460 uIU/mL Normal 0.358-3.740 [facility] Comment on above: Order Comment: Inter face Comments:Hives reoccuringOrder Date: 07/19/24Order Info: 0786-1 - CMPOrder Info: 3016-3 - TSHComments: Hives reoccuring Performed By: #### L 500.4050, L100.0100, L501.9520 ####[facility] [address] [place], [place], [id number] Total proteinOrdered By: Yamila Han on 07-19-2024 Protein [Mass/Vol] 7.6 g/dL 6.4-8.2 [facility] White blood cell (WBC) count Ordered By: Kelvin Han on 07-19-2024 WBC (Bld) [#/Vol] 4.3 10*3/uL Low 4.4-11.0 [facility] Emergency Department Summary on 06-08-2024 Emergency Department Summary Normal [facility] CNOVon 05-11-2024 CNOV Office Visit (UROSMN) BARBARA MILAN ([id number]) 1945 M Date Time Provider Department 05/11/24 1:30 PM MATT GARCIA During your visit today, we recorded the following information about you: Keiry Michaels CT 05/11/2024 1:59 PM Signed Patient ID with (2) Identifiers, Verified by: ESDRAS Good Actual procedure/procedure scheduled: Yes Performing provider/scheduled provider: Yes Patient was roomed in: Q9- 07 Research Director offered:Patient declines Patient arrived in the room at: 1302 Patient ready for procedure: 1342 The procedure started at ( Time Only): 1344 The procedure ended at: 1352 Was the procedure delayed: Yes: Provider late: Provider with other patient on Q9 [employer] Utilized: No The patient left the procedure room at: 1400 ESDRAS Good PRE PROCEDURE ASSESSMENT- Cysto Latex Allergy: No Allergies reviewed and updated. Yes Pre-Procedure Vital Signs: BP: 150/80 Pulse: 100 Heart valve replacement: No Joint replacement: Yes, L knee greater than 2 years ago Back Office UA otained: no, pt with SPT PROCEDURE PREP-Cysto Patient Prep: Betadine Placement of Sterile Drape: COMPLETED Anesthetic Given:Administered by MD - see Procedure Physician Note. Dr. Garcia replaced pt's SPT with 16F latex catheter without difficulty ESDRAS Good POST PROCEDURE NURSE ASSESSMENT Present along with physician during procedure exam. ESDRAS Good Current pain intensity is 0 on a 0-10 pain scale. ESDRAS Good AMBULATORY PATIENT EDUCATION THE FOLLOWING WAS EVALUATED Motivation To Learn: Interested Family/Significant Other Support: Unable to assess - Family not present Cognitive Ability: Alert/Oriented Method of Instruction: Individual instruction Written instruction/Handouts The Following Influencing Factors Were Barriers To This Education Session: None The Following Physical Limitations Were Barriers To This Education Session: None Instruction Provided To: Patient Podiatric Aide Present: no Discipline: Nursing Learning Topic: SURVIVAL SKILLS: Symptom Management Patient Evaluation: Verbalizes understanding: Yes Supplemental Material Given: Written Material Instructed By ESDRAS Good In Department Urology . 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 In March was taken to OR for BNI Operative Findings from March -Dense stricture in the proximal membranous urethra and bladder neck (approximately 2cm in length), incised in four sites to bleeding tissue to accommodate 22 Fr cystoscope. -16 Fr SPT exchanged -Bladder mucosa diffusely friable and erythematous appearing with changes consistent with chronic indwelling catheter and radiation cystitis. Indication: bladder neck contracture, radiation cystitis Interval history: SPT working well. Has dried up - no urine output out of penis. He is actually happy to be out of depends. No hematuria. Informed consent obtained yes. Discussed RBAPC. TECHNIQUE: The procedure was fully explained to the patient, risks were reviewed. The patient was placed in the supine position. The genitalia were prepped with betadine, and the urethra was anesthetized with viscous 2% lidocaine. The flexible cystoscope was introduced into the urethra and advanced under direct vision with findings as outlined below. At the conclusion of the procedure, the cystoscope was withdrawn. FINDINGS Urethra: patent until membranous/bladder neck at which point urethra is completely obliterated The existing suprapubic tube was used to fill the bladder. The balloon was deflated and the tube removed. A new 16F worthy was inserted without difficult via the SP tract and the balloon inflated with 10mls of sterile water once position within the bladder was confirmed with return of fluid. COMPLICATIONS: None RECOMMENDATIONS: Discussed findings with patient. POST PROCEDURE Condition: satisfactory Plan: Continue monthly spt exchanges locally If hematuria returns could do hbo again Discussed end stage option of cx and IC - he would like to avoid if at all possible [facility] 05/11/2024 2:03 PM Signed UNIVERSAL PROTOCOL / SAFETY CHECKLIST Procedure to be Performed: cysto Sign In: A Moment of CARE was completed. Personnel directly involved with the procedure wore the appropriate PPE (Personal Protective Equipment). Patient/Surrogate Stated/Verified: PATIENT VERIFIED(optional for EMERGENT procedures): Patient name, Date of , Relevant allergies, and The intended procedure Time Out Communication: Intended patient an (more content not included)... Normal [facility] ANES POSTPROC EVALon 024 ANES POSTPROC EVAL HNO ID: [id number] Author: MARKO STUART MD Service: ? Author Type: Anesthesiologist Type: Anesthesia Postprocedure Evaluation Filed: 04/02/2024 16:36 Note Text: POST ANESTHESIA EVALUATION NOTE : 1945 Procedure Summary Date: 04/02/24 [address] Anesthesia Start: 1305 Anesthesia Stop: 1446 Procedures: CYSTOSCOPY FLEXIBLE (Bladder) INCISION BLADDER NECK (Bladder) Diagnosis: Stricture of bladder neck (Stricture of bladder neck [N32.0]) Surgeons: Matt Garcia MD Responsible Provider: Marko Stuart MD Anesthesia Type: general ASA Status: 3 Anesthesia Type: general Airway Type: LMA Last Vitals Vitals Value Taken Time BP 132/71 04/02/24 1446 Temp 36.5 ?C (97.7 ?F) 04/02/24 1446 HR SpO2 75 04/02/24 1446 Resp 16 04/02/24 1446 SpO2 100 % 04/02/24 1446 Post Anesthesia Patient Status Patient Evaluation: PACU. PACU/ICU Patient Condition: stable. Anticipated Disposition: phase 2 then home. Neurological Status: aware and responsive. Pulmonary Status: breathing comfortably on room air Airway Control: returned to baseline unsupported. Cardiovascular Status: stable. Pain Management: clinically adequate Postoperative Hydration: acceptable. Intraoperative Events: no significant anesthesia events Post Operative Nausea/Vomiting Status: no significant post operative nausea or vomiting Recommendation: continue current plan of care. Anesthesia Observations No notable events were associated with this procedure. Documented by Leonel Orona SRNA 04/02/2024 2:48 PM EDT SIGNATURE: Marko Stuart MD PATIENT NAME: Barbara Milan DATE: April 02, 2024 TIME: 4:34 PM CSN: [id number] Normal [facility] ANES PRE-OPon 04-02-2024 ANES PRE-OP HNO ID: [id number] Author: KAVIN CONET MD Service: ? Author Type: Anesthesiologist Type: Anesthesia Preprocedure Evaluation Filed: 04/02/2024 13:04 Note Text: ANESTHESIOLOGY DAY OF SURGERY NOTE : 1945 Procedure Information Date/Time: 04/02/24 1416 Procedures: CYSTOSCOPY FLEXIBLE (Bladder) INCISION BLADDER NECK (Bladder) Location: [facility] Surgeons: Matt Garcia MD Estimated body mass index is 27.84 kg/m? as calculated from the following: Height as of 03/02/24: 175.3 cm (5' 9). Weight as of 03/02/24: 85.5 kg (188 lb 7.9 oz). Most recent hematocrit and potassium results: Hematocrit 33.7 03/02/2024 Potassium 4.7 03/02/2024 Relevant Problems CARDIO (+) BENIGN HYPERTENSION (+) Nieves////Capillary Angioma (+) Internal hemorrhoids without mention of complication I - PHYSICAL EVALUATION AIRWAY Patient intubated: No. Tracheostomy tube not present Mallampati: II. TM distance: >3 FB. Neck ROM: full ROM without neurological symptoms. Mouth opening: adequate. Short neck: no. Thick neck: no DENTAL Dental findings: teeth intact. II - ANESTHESIA PLAN ASA Score: 3 Anesthetic Plan: general Airway type: LMA The patient is not a current smoker. NPO Status: adequate Anesthetic plan additional comments: Discussed with patient risks of anesthesia including but not limited to , coma, heart attack, stroke, dental injury, significant nausea/vomiting, and sore throat. Patient expressed understanding and desires to proceed with anesthesia. . Beta Carlita Monitoring Plan Monitoring plan: standard ASA. Post Procedure Analgesic Plan Postoperative analgesic plan: parenteral or oral opioids and multimodal analgesia. Informed Consent Anesthetic risks, benefits, alternatives, personnel and consent discussed: yes. Patient / Responsible Constitution Party agrees to proceed: yes Patient / Surrogate agrees to blood products: Yes Significant changes in the patient condition since the History and Physical, not otherwise documented in primary service progress note: no. Potential Anesthesia issues that may suggest increased risk of complications or contraindication to planned procedure: none. Discussed the possibility of lip / dental damage: yes Vitals Value Taken Time BP 142/66 04/02/24 1229 Pulse 82 04/02/24 1229 Resp 16 04/02/24 1229 Temp 36.5 ?C (97.7 ?F) 04/02/24 1229 SpO2 96 % 04/02/24 1229 Facility-Administere d Medications as of 04/02/2024 Medication Dose Route Frequency lidocaine (PF) 10 mg/mL (1 %) 1-2 mg injection (XYLOCAINE) 0.1-0.2 mL INTRADERMAL PRN Or lidocaine 1% 0.25 mL subcutaneous j-tip syringe (XYLOCAINE) 0.25 mL SUBCUTANEOUS PRN NaCl 0.9% iv flush bag 20 mL INTRAVENOUS PRN piperacillin-tazobac coffey iv piggyback 3.375 g in dextrose (iso-osmotic) 50 mL (ZOSYN) 3.375 g INTRAVENOUS ONCE Outpatient Medications as of 04/02/2024 Medication Sig terazosin (HYTRIN) 5 mg capsule Take 1 capsule by mouth every afternoon. amLODIPine (NORVASC) 10 mg tablet Take 1 tablet by mouth once daily. lisinopril (ZESTRIL, PRINIVIL) 40 mg tablet Take 1 tablet by mouth twice daily. mv with xso-ZC-wxzmqiwx-gink go (ONE-A-DAY MEN'S 50+ ADVANTAGE) 400-300-120 mcg-mcg-mg tab Take 1 tablet by mouth once daily. furosemide (LASIX) 20 mg tablet Take 20 mg by mouth every morning. (Patient not taking: Reported on 02/24/2024) leuprolide (LUPRON DEPOT, 4 MONTH,) 30 mg injection Inject 30 mg intramuscularly every 4 months. (Patient not taking: Reported on 12/16/2023) leuprolide (LUPRON DEPOT, 4 MONTH,) 30 mg injection Inject 30 mg intramuscularly every 4 months. (Patient not taking: Reported on 12/16/2023) leuprolide (LUPRON DEPOT, 4 MONTH,) 30 mg injection Inject 30 mg intramuscularly every 4 months. (Patient not taking: Reported on 12/16/2023) ASPIRIN 81 MG ORAL TAB Take one (1) tablet daily . (Patient not taking: Reported on 12/16/2023) I have interviewed and examined the patient. I have reviewed the medical record and/or the pre-anesthesia evaluation, pertinent labs, and test results. This contains updated information obtained within 48 hours of Surgery/Procedure. SIGNATURE: Kavin Conte MD PATIENT NAME: Barbara Milan DATE: April 02, 2024 TIME: 1:04 PM CSN: [id number] Normal [facility] HISTORY PHYSICALon HISTORY PHYSICAL HNO ID: [id number] Author: MATT GARCIA MD Service: Urology Author Type: Resident Type: H&P Filed: 04/02/2024 12:51 Note Text: Attestation signed by Matt Garcia MD at 04/02/2024 12:51 PM Matt Garcia MD UROLOGY HISTORY AND PHYSICAL ASSESSMENT AND PLAN: 78 yo M here today for cystoscopy, BNI -To OR today for cytoscopy, BNI -HP completed -Consent completed HPI: 78 yo M here today for cystoscopy, BNI Feeling well. Denies any current cough, CP, SOB, nausea, or vomiting. PAST MEDICAL HISTORY: PAST MEDICAL HISTORY Diagnosis Date Benign neoplasm of colon Diverticulosis of colon (without mention of hemorrhage) Elevated prostate specific antigen (PSA) Essential hypertension, benign Internal hemorrhoids without mention of complication Osteoarthrosis, unspecified whether generalized or localized, unspecified site LEFT KNEE Prostate cancer (HCC) Snoring PAST SURGICAL HISTORY: PAST SURGICAL HISTORY Procedure Laterality Date ARTHRP KNE CONDYLEANDPLATU MEDIALANDLAT COMPARTMENTS Left 02/2013 Knee replacement, total COLONOSCOPY FLX DX W/COLLJ SPEC WHEN PFRMD 11/21/2015 Colonoscopy COLONOSCOPY W/BIOPSY SINGLE/MULTIPLE 10/03/2006 CYSTOURETHROSCOPY,FU LGUR .5-2CM LESN 02/11/2023 PROSTATE BIOPSY 09/2007 Dr Figueredo ROBOTIC SURGERY PROCEDURE 09/01/2011 prostatectomy. TONSILLECTOMY AND ADENOIDECTOMY FAMILY HISTORY: FAMILY HISTORY Problem Relation Age of Onset Hypertension Mother Stroke Father SOCIAL HISTORY: Social History Tobacco Use Smoking status: Never Smokeless tobacco: Never Substance Use Topics Alcohol use: No Drug use: No MEDICATIONS: ciprofloxacin HCl (CIPRO) 500 mg tabletTake 1 tablet by mouth two times a day for 5 days. Take leading up to procedure with Dr. Hernandezp: 10 tabletRfl: 0 terazosin (HYTRIN) 5 mg capsuleTake 1 capsule by mouth every afternoon.Disp: Rfl: furosemide (LASIX) 20 mg tabletTake 20 mg by mouth every morning.Disp: Rfl: (Patient not taking: Reported on 02/24/2024) amLODIPine (NORVASC) 10 mg tabletTake 1 tablet by mouth once daily.Disp: 90 tabletRfl: 0 lisinopril (ZESTRIL, PRINIVIL) 40 mg tabletTake 1 tablet by mouth twice daily.Disp: 180 tabletRfl: 0 leuprolide (LUPRON DEPOT, 4 MONTH,) 30 mg injectionInject 30 mg intramuscularly every 4 months.Disp: 1 EachRfl: 0 (Patient not taking: Reported on 12/16/2023) leuprolide (LUPRON DEPOT, 4 MONTH,) 30 mg injectionInject 30 mg intramuscularly every 4 months.Disp: 1 EachRfl: 0 (Patient not taking: Reported on 12/16/2023) leuprolide (LUPRON DEPOT, 4 MONTH,) 30 mg injectionInject 30 mg intramuscularly every 4 months.Disp: 1 EachRfl: 0 (Patient not taking: Reported on 12/16/2023) mv with ypl-QZ-diauqajv-gink go (ONE-A-DAY MEN'S 50+ ADVANTAGE) 400-300-120 mcg-mcg-mg tabTake 1 tablet by mouth once daily.Disp: 90 tabletRfl: 3 ASPIRIN 81 MG ORAL TABTake one (1) tablet daily .Disp: Rfl: 0 (Patient not taking: Reported on 12/16/2023) Current Facility-Administere d Medications Medication Dose Route Frequency lidocaine (PF) 10 mg/mL (1 %) 1-2 mg injection (XYLOCAINE) 0.1-0.2 mL INTRADERMAL PRN Or lidocaine 1% 0.25 mL subcutaneous j-tip syringe (XYLOCAINE) 0.25 mL SUBCUTANEOUS PRN NaCl 0.9% iv flush bag 20 mL INTRAVENOUS PRN piperacillin-tazobac coffey iv piggyback 3.375 g in dextrose (iso-osmotic) 50 mL (ZOSYN) 3.375 g INTRAVENOUS ONCE ALLERGIES: ALLERGIES Allergen Reactions 8-Aminoquinolines Atenolol Unknown Tremors Hydrochlorothiazide Unknown Indocin [Indomethac* GI Upset Losartan Potassium Hives Sulfa (Sulfonamide * Hives PHYSICAL EXAM: There were no vitals taken for this visit. Gen: No apparent distress, appears stated age, well-nourished, supine in hospital bed, appropriate affect Head/Neck: Normocephalic, atraumatic Pulmonary: Clear to auscultation bilaterally, symmetric and equal chest rise, unlabored breathing on room air. Cardiac: Regular rate and rhythm, normal s1, s2, no murmurs, rubs, gallops appreciated. Neuro: Alert and oriented x 3. ----- Margie Khan MD Urology, PGY6 [phone] 12:18 PM April 02, 2024 Please page urology manager global communications pager, [phone], after 5PM and on weekends Normal [facility] OPERATIVE NOon 04-02-2024 OPERATIVE NO HNO ID: [id number] Author: MATT GARCIA MD Service: Urology Author Type: Resident Type: Operative Report Filed: 04/02/2024 14:29 Note Text: Attestation signed by Matt Garcia MD at 04/02/2024 2:29 PM UROLOGY ATTENDING ATTESTATION: I personally performed all critical elements of the surgical case with the assistance of the resident or fellow who completed portions of the case under my direct guidance and supervision while I was scrubbed into the case. Matt Garcia MD Associate Staff, Department of Urology [facility] OPERATIVE/PROCEDURE REPORT LOG ID: [id number] Surgery/Procedure Date: 04/02/2024 Incision/Procedure Start Time: 1:33 PM Incision Close/Procedure End Time: 8:13 PM Surgeon(s)/Procedura list(s) and Consumer Analyst(s): Surgeons and Role: * Matt Garcia MD - Primary * Margie Khan MD - Resident - Assisting Procedure(s): Cystoscopy Incision of bladder neck Complex worthy catheter placement Suprapubic catheter exchange Anatomic Site: Bladder, Laterality: N/A Approach: Endoscopic Anesthesia: General Operative Indications: This is a 78 year old male with a hx of radiation cystitis (s/p hyperbaric oxygen tx), prior RP and XRT, 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 Operative Findings: -Dense stricture in the proximal membranous urethra and bladder neck (approximately 2cm in length), incised in four sites to bleeding tissue to accommodate 22 Fr cystoscope. -16 Fr SPT exchanged -Bladder mucosa diffusely friable and erythematous appearing with changes consistent with chronic indwelling catheter and radiation cystitis. Procedure Details: The patient was correctly identified and the operative plan was confirmed with the patient and the operative team. A weight appropriate dose of prophylactic antibiotics (zosyn) was administered intravenously prior to the procedure and sequential compression devices were applied to the lower extremities and activated prior to induction of anesthesia. General anesthesia was induced. The patient was placed in the dorsal lithotomy position. All pressure points were padded per protocol and the operative area was prepped and draped in the standard sterile fashion. The 16 Fr latex SPT was replaced with 10cc in the balloon. The 22 Fr cystoscope was inserted per urethra to the level of the stricture as noted above (see operative findings). A glide wire was placed into the bladder under direct vision. The cold knife was then used to incise the area of stricture in four places at 2 o'clock, 5 o'clock, 7 o'clock and 10 o'clock.These incisions were carried through the stricture to bleeding tissue. The 22 Fr scope was then able to be advanced through this area of stricture and the bladder was surveyed (see above). The scope was removed and the wire was left in place. A 10 Fr [place] tip catheter was advanced over the wire and into the bladder. The balloon was inflated with 10cc of sterile water. Urine was light pink. The urethral worthy was capped and the SPT was left to gravity drainage. The patient tolerated the procedure well, emerged from anesthesia without incident, and was transferred toPACU in stable condition. Pre-Op/Pre-Procedure Diagnosis: Pre-Op Diagnosis Codes: * Stricture of bladder neck [N32.0] Post-Op/Post-Procedu re Diagnosis: Post-Op Diagnosis Codes: * Stricture of bladder neck [N32.0] Estimated Blood Loss: 10 mls Specimens: * No specimens in log * Implantable Devices: None Drains: 20 Fr [place] tip Worthy catheter (per urethra) 16 Fr SPT Complications: None Qualifier: None Post-Operative Plan: -Urethral worthy out in 3 days, continue cipro until worthy out -Cap SPT after urethral worthy removed to attempt voiding per urethra -Follow up in 2 months for cystoscopy The primary surgeon/proceduralis t performed the entire procedure with assistance. Margie Khan MD dictating on behalf of Matt Garcia MD [facility] MARIANABARBARA SANTAMARIA ([id number]) 1945 M Date Time Provider Department 03/28/24 AMALIA CHILDERS During your visit today, we recorded the following information about you: Amalia Childers MD 03/28/2024 8:16 AM Signed Called patient about pre op abx, no answer Allergies As of Date: 03/28/2024 Noted Allergy Reaction 8-AMINOQUINOLINES 12/23/2023 ATENOLOL 12/22/2004 16 - Unknown Comments: Tremors HYDROCHLOROTHIAZIDE 12/22/2004 16 - Unknown INDOCIN (INDOMETHACIN SODIUM) 07/28/2012 8 - GI Upset LOSARTAN POTASSIUM 08/19/2014 4 - Hives SULFA (SULFONAMIDE ANTIBIOTICS) 12/22/2004 4 - Hives Date Reviewed: 03/02/2024 Reviewed by: Kenyetta Garcia LPN - Fully Assessed Order(s):ciprofloxac in HCl (CIPRO) 500 mg tabletTake 1 tablet by mouth two times a day for 5 days. Take leading up to procedure with Dr. Lackey: 10 tabletRfl: 0 Prescriptions as of 03/28/2024 - ciprofloxacin HCl (CIPRO) 500 mg tablet Take 1 tablet by mouth two times a day for 5 days. Take leading up to procedure with Dr. Garcia - terazosin (HYTRIN) 5 mg capsule Take 1 capsule by mouth every afternoon. - furosemide (LASIX) 20 mg tablet Take 20 mg by mouth every morning. - amLODIPine (NORVASC) 10 mg tablet Take 1 tablet by mouth once daily. - lisinopril (ZESTRIL, PRINIVIL) 40 mg tablet Take 1 tablet by mouth twice daily. - leuprolide (LUPRON DEPOT, 4 MONTH,) 30 mg injection Inject 30 mg intramuscularly every 4 months. - leuprolide (LUPRON DEPOT, 4 MONTH,) 30 mg injection Inject 30 mg intramuscularly every 4 months. - leuprolide (LUPRON DEPOT, 4 MONTH,) 30 mg injection Inject 30 mg intramuscularly every 4 months. - mv with axn-XW-vrpheyvb-gink go (ONE-A-DAY MEN'S 50+ ADVANTAGE) 400-300-120 mcg-mcg-mg tab Take 1 tablet by mouth once daily. - ASPIRIN 81 MG ORAL TAB Take one (1) tablet daily . Problem List As Of Date 03/28/2024 Noted Resolved BENIGN HYPERTENSION [I10] OSTEOARTHROS NOS-UNSPEC [M19.90] OVERWEIGHT [E66.3] 02/26/2006 Elevated prostate specific antigen (PSA) [R97.2*05/09/2006 08/10/2011 BENIGN NEOPLASM LG BOWEL [D12.6] DIVERTICULOSIS OF COLON W/O BLEED [K57.30] INT HEMORRHOID W/O COMPL [K64.8] Hypertrophy of prostate with urinary obstructio* 7 11/24/2011 SEBORRHEIC KERATOSIS NOS [L82.1] 10/29/2008 CHR SOLAR SKIN DAMAGE NOS [L57.8] 10/29/2008 Actinic Keratosis [L57.0] 05/19/2009 Rosacea [L71.9] 05/19/2009 Melanocytic Nevus of Trunk [D22.5] 05/19/2009 Solar Lentigo [L81.4] 05/19/2009 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 Take leading up to procedure with Dr. Garcia Encounter Status:Closed by AMALIA CHILDERS on 03/28/24 Normal [facility] Emergency Department Summary on 03-23-2024 Emergency Department Summary Normal [facility] CBC panel Auto (Bld)on 03-02 Erythrocyte distribution width (RBC) [Ratio] 13.0 % Normal 11.5-15.0 [facility] Comment on above: Order Comment: Speci men Type: BLOOD SPECIMENOrdering Facility: [facility] Address: [address] [place] [address] Performed By: #### 5 8410-2 ####[facility]IA [id number] [place] [address] [place] Hematocrit (Bld) [Volume fraction] 33.7 % Low 39.0-51.0 [facility] Comment on above: Order Comment: Speci men Type: BLOOD SPECIMENOrdering Facility: [facility] Address: [address] [place] [address] Performed By: #### 5 8410-2 ####[facility] [id number] [place] [address] [place] Hemoglobin (Bld) [Mass/Vol] 10.6 g/dL Low 13.0-17.0 [facility] Comment on above: Order Comment: Speci men Type: BLOOD SPECIMENOrdering Facility: [facility] Address: [address] [place] [address] Performed By: #### 5 8410-2 ####[facility] [id number] [place] [address] [place] MCH (RBC) [Entitic mass] 28.2 pg Normal 26.0-34.0 [facility] Comment on above: Order Comment: Speci men Type: BLOOD SPECIMENOrdering Facility: [facility] Address: [address] [place] [address] Performed By: #### 5 8410-2 ####[facility] [id number] [place] [address] [place] MCHC (RBC) [Mass/Vol] 31.5 g/dL Normal 30.5-36.0 [facility] Comment on above: Order Comment: Speci men Type: BLOOD SPECIMENOrdering Facility: [facility] Address: [address] [place] [address] Performed By: #### 5 8410-2 ####[facility] LABCL[facility] [id number] [place] [address] [place] MCV (RBC) [Entitic vol] 89.6 fL Normal 80.0-100.0 [facility] Comment on above: Order Comment: Speci men Type: BLOOD SPECIMENOrdering Facility: [facility] Address: [address] [place] [address] Performed By: #### 5 8410-2 ####[facility] [id number] [place] [address] [place] Nucleated RBC (Bld) [#/Vol] 10*3/uL Normal <0.01 [facility] Comment on above: Order Comment: Speci men Type: BLOOD SPECIMENOrdering Facility: [facility] Address: [address] [place] [address] Performed By: #### 5 8410-2 ####[facility] [id number] [place] [address] [place] Platelet mean volume (Bld) [Entitic vol] 10.3 fL Normal 9.0-12.7 [facility] Comment on above: Order Comment: Speci men Type: BLOOD SPECIMENOrdering Facility: [facility] Address: [address] [place] [address] Performed By: #### 5 8410-2 ####[facility]CL[facility] [id number] [place] [address] [place] Platelets (Bld) [#/Vol] 292 10*3/uL Normal 150-400 [facility] Comment on above: Order Comment: Speci men Type: BLOOD SPECIMENOrdering Facility: [facility] Address: [address] [place] [address] Performed By: #### 5 8410-2 ####[facility]CL[facility] [id number] [place] [address] [place] RBC (Bld) [#/Vol] 3.76 10*6/uL Low 4.20-6.00 [facility] Comment on above: Order Comment: Speci men Type: BLOOD SPECIMENOrdering Facility: [facility] Address: [address] [place] [address] Performed By: #### 5 8410-2 ####[facility]CL[facility] [id number] [place] [address] [place] WBC (Bld) [#/Vol] 6.35 10*3/uL Normal 3.70-11.00 [facility] Comment on above: Order Comment: Speci men Type: BLOOD SPECIMENOrdering Facility: [facility] Address: [address] [place] [address] Performed By: #### 5 8410-2 ####[facility]CLIA [id number] [address] [facility] CNNURSEon 03-02-2024 CNNURSE Nurse Visit (UROLMN) BARBARA MILAN ([id number]) 1945 M Date Time Provider Department 03/02/24 1:00 PM KENYETTA GARCIA During your visit today, we recorded the following information about you: Kenyetta Garcia LPN 03/02/2024 11:40 AM Signed INTERMITTENT SELF CATHETERIZATION (ISC) INSTRUCTION March 02, 2024 at 11:37 AM Patient ID with two (2) identifiers verified by: Kenyetta Garcia LPN Allergies reviewed and updated: Yes Current pain intensity is: 0 on a 0-10 pain scale. Any concerns about safety in the home/falls: Not at risk for falls ISC video viewed: Yes ISC information sheet given and reviewed: Yes Catheter size :16 fr. straight Amount given: 15 Supply list given: Yes Verbalizes understanding: Yes Successful performance of ISC: No, patient will start cathing post Surgery 03/16/2024 24 hr phone number given:Yes Physician phone number given: Yes Concerns/Issues: none Kenyetta Garcia LPN AMBULATORY PATIENT EDUCATION NOTE READINESS TO LEARN COGNITIVE ABILITY: Alert and oriented MOTIVATION TO LEARN: Interested FAMILY SUPPORT: High - Very involved in pt care INSTRUCTION PROVIDED TO: Patient and Spouse PATIENT LEARNS BEST BY: Individual Instruction Verbal Instruction Videos FACTORS AFFECTING LEARNING: None PHYSICAL LIMITATIONS AFFECTING LEARNING: None LEARNING RESPONSE DIAGNOSIS: Stricture of bladder neck: METHOD OF INSTRUCTION: Individual instruction Written instruction/Handouts Verbal instruction Video PATIENT / FAMILY RESPONSE: Verbalizes understanding of: RISK FACTORS-Unique risk factors related to their disease FOLLOW-UP PLAN: Complete - No need for follow-up REFERRAL (RECOMMENDATION): None Supplies ordered and sent to [address] [place] [address]. 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 - furosemide (LASIX) 20 mg tablet Take 20 mg by mouth every morning. - amLODIPine (NORVASC) 10 mg tablet Take 1 tablet by mouth once daily. - lisinopril (ZESTRIL, PRINIVIL) 40 mg tablet Take 1 tablet by mouth twice daily. - leuprolide (LUPRON DEPOT, 4 MONTH,) 30 mg injection Inject 30 mg intramuscularly every 4 months. - leuprolide (LUPRON DEPOT, 4 MONTH,) 30 mg injection Inject 30 mg intramuscularly every 4 months. - leuprolide (LUPRON DEPOT, 4 MONTH,) 30 mg injection Inject 30 mg intramuscularly every 4 months. - mv with wcq-RY-ttonvpar-gink go (ONE-A-DAY MEN'S 50+ ADVANTAGE) 400-300-120 mcg-mcg-mg tab Take 1 tablet by mouth once daily. - ASPIRIN 81 MG ORAL TAB Take one (1) tablet daily . Problem List As Of Date 03/02/2024 Noted Resolved BENIGN HYPERTENSION [I10] OSTEOARTHROS NOS-UNSPEC [M19.90] OVERWEIGHT [E66.3] 02/26/2006 Elevated prostate specific antigen (PSA) [R97.2*05/09/2006 08/10/2011 BENIGN NEOPLASM LG BOWEL [D12.6] DIVERTICULOSIS OF COLON W/O BLEED [K57.30] INT HEMORRHOID W/O COMPL [K64.8] Hypertrophy of prostate with urinary obstructio* 7 11/24/2011 SEBORRHEIC KERATOSIS NOS [L82.1] 10/29/2008 CHR SOLAR SKIN DAMAGE NOS [L57.8] 10/29/2008 Actinic Keratosis [L57.0] 05/19/2009 Rosacea [L71.9] 05/19/2009 Melanocytic Nevus of Trunk [D22.5] 05/19/2009 Solar Lentigo [L81.4] 05/19/2009 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] 05/19/2009 Prostate cancer [C61] 07/06/2011 BPH (benign prostatic hyperplasia) [N40.0] 07/06/2011 11/24/2011 Colon cancer screening [Z12.11] 11/21/2015 Gross hematuria [R31.0] 02/07/2023 Encounter Status:Closed by KENYETTA GARCIA on 03/02/24 Normal [facility] Comprehensive metabolic 2000 panelon 03-02-2024 Albumin [Mass/Vol] 4.0 g/dL Normal 3.9-4.9 [facility] Comment on above: Order Comment: Speci men Type: BLOOD SPECIMENOrdering Facility: [facility] Address: [address] [place] [address] [place], [place] [address] Performed By: #### 2 4323-8 ####[facility]CL[facility] [id number] [place] [address] [place] ALP [Catalytic activity/Vol] 86 U/L Normal 38-113 [facility] Comment on above: Order Comment: Speci men Type: BLOOD SPECIMENOrdering Facility: [facility] Address: [address] [place] [address] Performed By: #### 2 4323-8 ####[facility]CL[facility] [id number] [place] [address] [place] ALT [Catalytic activity/Vol] 11 U/L Normal 10-54 [facility] Comment on above: Order Comment: Speci men Type: BLOOD SPECIMENOrdering Facility: [facility] Address: [address] [place] [address] Performed By: #### 2 4323-8 ####[facility]CL[facility] [id number] [place] [address] [place] Anion gap [Moles/Vol] 11 mmol/L Normal 8-15 [facility] Comment on above: Order Comment: Speci men Type: BLOOD SPECIMENOrdering Facility: [facility] Address: [address] [place] [address] Performed By: #### 2 4323-8 ####[facility]CL[facility] [id number] [place] [address] [place] AST [Catalytic activity/Vol] 19 U/L Normal 14-40 [facility] Comment on above: Order Comment: Speci men Type: BLOOD SPECIMENOrdering Facility: [facility] Address: [address] [place], [place] [address] Performed By: #### 2 4323-8 ####[facility]CL[facility] [id number] [place] [id number] [place] Bilirubin [Mass/Vol] 0.2 mg/dL Normal 0.2-1.3 [facility] Comment on above: Order Comment: Speci men Type: BLOOD SPECIMENOrdering Facility: [facility] Address: [address] [place] [id number] Performed By: #### 2 4323-8 ####[facility]CL[facility] [id number] [address] [address] [place] Calcium [Mass/Vol] 9.6 mg/dL Normal 8.5-10.2 [facility] Comment on above: Order Comment: Speci men Type: BLOOD SPECIMENOrdering Facility: [facility] Address: [address] [place] [address] Performed By: #### 2 4323-8 ####[facility] [facility] LABCL[facility] [id number] [place] [address] [place] Chloride [Moles/Vol] 105 mmol/L Normal 98-107 [facility] Comment on above: Order Comment: Speci men Type: BLOOD SPECIMENOrdering Facility: [facility] Address: [address] [place] [address] Performed By: #### 2 4323-8 ####[facility] LABCLIA [id number] [place] [address] [place] CO2 [Moles/Vol] 23 mmol/L Normal 22-30 [facility] Comment on above: Order Comment: Speci men Type: BLOOD SPECIMENOrdering Facility: [facility] Address: [address] [place], [place] [address] Performed By: #### 2 4323-8 ####[facility] LABCLIA [id number] [place] [id number] [place] Creatinine [Mass/Vol] 1.16 mg/dL Normal 0.73-1.22 [facility] Comment on above: Order Comment: Speci men Type: BLOOD SPECIMENOrdering Facility: [facility] Address: [address] [place], [place] [address] Performed By: #### 2 4323-8 ####[facility] LABCLIA [id number] [place] [address] [place] Creatinine and Glomerular filtration rate.predicted panel (S/P/Bld) 65 mL/min/1.73m??? Normal >=60 [facility] Comment on above: Order Comment: Speci catina Type: BLOOD SPECIMENOrdering Facility: [facility] Address: [address] [place] [address] Result Comment: Christy mated Glomerular Filtration Rate (eGFR) is calculated using the 2020 CKD-EPI creatinine equation. This equation utilizes serum creatinine, sex, and age as parameters. The creatinine assay has traceable calibration to isotope dilution-mass spectrometry. Refer to KDIGO guidelines for clinical interpretation. In patients with unstable renal function, e.g. those with acute kidney injury, the eGFR may not accurately reflect actual GFR. Performed By: #### 2 4323-8 ####[facility] LABIA [id number] [place] [address] [place] Glucose [Mass/Vol] 101 mg/dL High 74-99 [facility] Comment on above: Order Comment: Speci catina Type: BLOOD SPECIMENOrdering Facility: [facility] Address: [address] [place] [address] Result Comment: The [place] Diabetes Association (ADA) provides guidance for cutoff values for fasting glucose and random glucose. The ADA defines fasting as no caloric intake for at least 8 hours. Fasting plasma glucose results between 100 to 125 mg/dL indicate increased risk for diabetes (prediabetes). Fasting plasma glucose results greater than or equal to 126 mg/dL meet the criteria for diagnosis of diabetes. In the absence of unequivocal hyperglycemia, results should be confirmed by repeat testing. In a patient with classic symptoms of hyperglycemia or hyperglycemic crisis, random plasma glucose results greater than or equal to 200 mg/dL meet the criteria for diagnosis of diabetes. Reference: Standards of Medical Care in Diabetes 2016, [place] [employer]. Diabetes Care. 2016.39(Suppl 1). Performed By: #### 2 4323-8 ####[facility] LABIA [id number] [place] [id number] [place] Potassium [Moles/Vol] 4.7 mmol/L Normal 3.7-5.1 [facility] Comment on above: Order Comment: Speci men Type: BLOOD SPECIMENOrdering Facility: [facility] Address: [address] [place] [address] Performed By: #### 2 4323-8 ####[facility] LABCLIA [id number] [place] [address] [place] Protein [Mass/Vol] 7.3 g/dL Normal 6.3-8.0 [facility] Comment on above: Order Comment: Speci men Type: BLOOD SPECIMENOrdering Facility: [facility] Address: [address] [place] [address] Performed By: #### 2 4323-8 ####[facility] LABCLIA [id number] [place] [address] [place] Sodium [Moles/Vol] 139 mmol/L Normal 136-144 [facility] Comment on above: Order Comment: Speci men Type: BLOOD SPECIMENOrdering Facility: [facility] Address: [address] [place] [address] Performed By: #### 2 4323-8 ####[facility] LABCLIA [id number] [place] [address] [place] Urea nitrogen [Mass/Vol] 24 mg/dL Normal 9-24 [facility] Comment on above: Order Comment: Speci men Type: BLOOD SPECIMENOrdering Facility: [facility] Address: [address] [place] [address] Performed By: #### 2 4323-8 ####[facility] LABCLIA [id number] [place] [address] [place] HISTORY PHYSICALon HISTORY PHYSICAL HNO ID: [id number] Author: DIO JAVIER MD Service: ? Author Type: Resident Type: H&P Filed: 03/02/2024 10:56 Note Text: [facility] HISTORY AND PHYSICAL EXAMINATION SERVICE DATE: 03/02/2024 SERVICE TIME: 10:56 AM PRIMARY CARE PHYSICIAN: Kelvin Han MD Assessment Patient has the following medical conditions which may affect christopher-operative course: Mini Cog Score: 4 Prostate cancer -Prostate cancer s/p prostatectomy 2011 and radiation 2015 + ADT (androgen deprivation therapy) -Flexible cystoscopy bladder neck incision on 03/12/[address] Garcia for stricture of the bladder neck -Suprapubic catheter in place Gross hematuria -Has been experiencing hematuria and urinary retention this past year - multiple ED visits -Completed outpatient hyperbaric oxygen therapy 03/01 at [facility] for hematuria/friable, bleeding mucosa over the bladder neck seen on cysto -Has had additional clot evacs and bladder neck incisions this past year at [facility], had laser BNI November 13 2023 -Recent Admission early February at [facility] for gross hematuria- underwent cystoscopy on 02/11 for clot evacuation, fulguration, bladder bx, cystogram -No hematuria for the past week BENIGN HYPERTENSION -On lisinopril 40mg BID, amlodipine 10mg, terazosin 5mg every afternoon Qiu Activity Status Index: METS: Walk indoors, such as around the house (1.75 METs) Do light work around the house, such as dusting or washing dishes (2.70 METs) Take care of self; that is eating, dressing, bathing, using the toilet (2.75 METs) Walk a block or two on level ground (2.75 METs) Do moderate work around the house, such as vacuuming, sweeping floors, or carrying in groceries (3.50 METs) Do yardwork, such as raking leaves, weeding, or pushing a power mower (4.50 METs) Have sexual relations (5.25 METs) Climb a flight of stairs or walk up a hill (5.50 METs) Participate in moderate recreational activites, such as golf, bowling, dancing, doubles tennis, or throwing a baseball or football (6.00 METs) DASI Score: 34.7 Patient denies any chest pain or undue shortness of breath with the above physical activity. STOP-Bang Score: Has or is being treated for high blood pressure Patient over 50 years old Has a large neck Male patient Denies snoring loudly Denies feeling tired, fatigued, or sleepy during the daytime Has not been observed to stop breathing or choking/gasping during sleep BMI less than or equal to 35 kg/m2 STOP-Bang Score: 4 [id number] Score: Hypertension history: Yes [id number] Score: ANESTHESIA FINDINGS: Intubation History: No abnormal airway history Significant Anesthesia Considerations: none Airway History: No abnormal airway history I - PHYSICAL EVALUATION AIRWAY Patient intubated: No. Tracheostomy tube not present Mallampati: III. TM distance: <3 FB. Neck ROM: limited flexion and extension. Mouth opening: adequate. Short neck: no. Thick neck: yes Vicente present: no Lip Bite Test: II Microretrognathia/Mi cronagthia/Recessed Chin: No DENTAL Dental findings: missing tooth/teeth. Additional comments: Upper and lower molars bilaterally. II - ANESTHESIA PLAN Beta Carlita Monitoring Plan Post Procedure Analgesic Plan Patient / Surrogate agrees to blood products: Yes Prepared for Surgery: optimally prepared for surgery, pending [see comment]. -Pending lab work- CBC, CMP, urine culture today -Last EKG last year CONSULTS: Patient does not require consults for optimization at this time Planned Anesthetic: The Following Tests/Procedures Have Been Initiated: No orders of the defined types were placed in this encounter. REASON FOR VISIT: Barbara Milan is a 78 year old male who is scheduled for Procedure(s): CYSTOSCOPY FLEXIBLE (N/A) INCISION BLADDER NECK (N/A) at the request of Matt Garcia MD for consultation. My final recommendation will be communicated back to the requesting physician by way of shared medical record or letter. Subjective The patient has the following: COVID-19 Immunization Status Overdue - Covid-19 Vaccine () Overdue since 02/05/2024 07/29/2023 Imm Admin: COVID-19 vaccine, age 12+ yr, season (CDC Software) 03/06/2022 Outside Immunization: COVID-19, mRNA, LNP-S, PF, 100 mcg/0.5mL dose or 50 mcg/0.25mL dose 03/01/2022 Imm Admin: COVID-19 vaccine, age 12+ yr, bivalent (MODERNA) Only the first 3 history entries have been loaded, but more history exists. CHIEF COMPLAINT: Anesthesia Pre-op evaluation HPI: Favian Milan is a 78 year old male with PMH of htn, CKD, prostate cancer s/p prostatectomy 2011 and radiation 2015 + ADT (androgen deprivation therapy) Flexible cystoscopy bladder neck incision on 03/12/[address] Garcia for stricture of the bladder neck. REVIEW OF SYSTEMS: General: No weight loss, malaise (more content not included)... Normal [facility] URINE, PRESURGICAL STERILIZA TION CULTUREon 03-02-2024 URINE, PRESURGICAL STERILIZATION CULTURE ORGANISM ID: 1 >=100,000 CFU/ml Providencia rettgeri ORGANISM ID: 2 10,000 -<50,000 CFU/ml Klebsiella oxytoca ORGANISM ID: 3 >=100,000 CFU/ml Proteus vulgaris Call the lab ([phone]) within 72 h if susceptibility testing for ertapenem is required. ORGANISM ID: 1 (PROVIDENCIA RETTGERI) ANTIBIOTIC INTERPRETATION LISANDRA STATUS REFERENCE RANGE Ampicillin R >=32 F Susceptible <=8 , Intermediate >8 , Resistant >16 Cefazolin R >=64 F Susceptible 0-16 , Intermediate <0 or >16 , Resistant >16 For uncomplicated urinary tract infections, cefazolin results can be used to predict susceptibility or resistance to cephalexin. Ceftriaxone S <=1 F Susceptible <=1 , Intermediate >1 , Resistant >=4 Cefepime S <=1 F Susceptible <=2 , Susceptible-Dose Dependent >2 , Resistant >=16 Ertapenem S <=0.5 F Susceptible <=0.5 , Intermediate >.5 , Resistant >1 Meropenem S <=0.25 F Susceptible <=1 , Intermediate >1 , Resistant >2 Piperacillin/Tazobac S <=4 F Susceptible <16 , Susceptible-Dose Dependent >=16 , Resistant >=32 Gentamicin S <=1 F Susceptible <=2 , Intermediate >2 , Resistant >=8 Tobramycin S <=1 F Susceptible <4 , Intermediate >=4 , Resistant >=8 Trimeth sulfameth S <=20 F Susceptible <=40 , Resistant >40 Ciprofloxacin S <=0.25 F Susceptible <0.5 , Intermediate >=.5 , Resistant >=1 Nitrofurantoin R 128 F Susceptible <=32 , Intermediate >32 , Resistant >64 ORGANISM ID: 2 (KLEBSIELLA OXYTOCA) ANTIBIOTIC INTERPRETATION LISANDRA STATUS REFERENCE RANGE Ampicillin R >=32 F Susceptible <=8 , Intermediate >8 , Resistant >16 Cefazolin S <=4 F Susceptible 0-16 , Intermediate <0 or >16 , Resistant >16 For uncomplicated urinary tract infections, cefazolin results can be used to predict susceptibility or resistance to cephalexin. Ceftriaxone S <=1 F Susceptible <=1 , Intermediate >1 , Resistant >=4 Cefepime S <=1 F Susceptible <=2 , Susceptible-Dose Dependent >2 , Resistant >=16 Ertapenem S <=0.5 F Susceptible <=0.5 , Intermediate >.5 , Resistant >1 Meropenem S <=0.25 F Susceptible <=1 , Intermediate >1 , Resistant >2 Ampicillin/Sulbact S 4 F Susceptible <=8 , Intermediate >8 , Resistant >16 Piperacillin/Tazobac S <=4 F Susceptible <16 , Susceptible-Dose Dependent >=16 , Resistant >=32 Gentamicin S <=1 F Susceptible <=2 , Intermediate >2 , Resistant >=8 Tobramycin S <=1 F Susceptible <4 , Intermediate >=4 , Resistant >=8 Trimeth sulfameth S <=20 F Susceptible <=40 , Resistant >40 Ciprofloxacin S <=0.25 F Susceptible <0.5 , Intermediate >=.5 , Resistant >=1 Nitrofurantoin S 32 F Susceptible <=32 , Intermediate >32 , Resistant >64 ORGANISM ID: 3 (PROTEUS VULGARIS) ANTIBIOTIC INTERPRETATION LISANDRA STATUS REFERENCE RANGE Ampicillin R >=32 F Susceptible <=8 , Intermediate >8 , Resistant >16 Cefazolin R >=64 F Susceptible 0-16 , Intermediate <0 or >16 , Resistant >16 For uncomplicated urinary tract infections, cefazolin results can be used to predict susceptibility or resistance to cephalexin. Ceftriaxone R >=64 F Susceptible <=1 , Intermediate >1 , Resistant >=4 Cefepime S <=1 F Susceptible <=2 , Susceptible-Dose Dependent >2 , Resistant >=16 Meropenem S 0.5 F Susceptible <=1 , Intermediate >1 , Resistant >2 Ampicillin/Sulbact I 16 F Susceptible <=8 , Intermediate >8 , Resistant >16 Piperacillin/Tazobac S <=4 F Susceptible <16 , Susceptible-Dose Dependent >=16 , Resistant >=32 Gentamicin S <=1 F Susceptible <=2 , Intermediate >2 , Resistant >=8 Tobramycin S <=1 F Susceptible <4 , Intermediate >=4 , Resistant >=8 Trimeth sulfameth S <=20 F Susceptible <=40 , Resistant >40 Ciprofloxacin S <=0.25 F Susceptible <0.5 , Intermediate >=.5 , Resistant >=1 Nitrofurantoin R F Abnormal [facility] Comment on above: Performed By: #### U PRESR ####[facility] LABCLIA [id number] [address] 02-28-2024 CNPN Telephone (HENRI) BARBARA MILAN ([id number]) 1945 M Date Time Provider Department 02/28/24 AMALIA SHAH During your visit today, we recorded the following information about you: Amalia Shah RN 02/28/2024 8:10 AM Addendum Called and spoke to patient and spouse regarding their concerns. Patient expressing anxiety regarding the need to self cath after surgery as he has never done so before. Informed him that we would schedule pre ops and teaching before surgery and then schedule a refresher course with me after surgery. Supplies will be provided. Patient states understanding of plan. Amalia Shah RN ----- Message from Erin Toro MA sent at 02/27/2024 8:35 AM EDT ----- Regarding: RE: Surgery date She has some clinical questions that I can't answer. Not sure what HBOT is? Questions re self catherization Thanks Erin ----- Message ----- From: Amalia Shah RN Sent: 02/27/2024 8:30 AM EDT To: Erin Kraft MA; Matt Garcia MD Subject: RE: Surgery date If she is talking about HBOT, then she has to call [phone] to scheduled an assessment with their providers. The locations available are [facility], [facility], [facility], [facility], [facility]. Can you call and let her know? I can call in between patients. MAV ----- Message ----- From: Erin Kraft MA Sent: 02/27/2024 8:05 AM EDT To: Amalia Shah RN; Matt Garcia MD Subject: Surgery date Patient called states she was told he can have surgery on 03/12 Patient wants to speak with a nurse and get this scheduled an also has some questions . Thanks Erin Allergies As of Date: 02/28/2024 Noted Allergy Reaction 8-AMINOQUINOLINES 12/23/2023 ATENOLOL 12/22/2004 16 - Unknown HYDROCHLOROTHIAZIDE 12/22/2004 16 - Unknown INDOCIN (INDOMETHACIN SODIUM) 07/28/2012 8 - GI Upset LOSARTAN POTASSIUM 08/19/2014 4 - Hives SULFA (SULFONAMIDE ANTIBIOTICS) 12/22/2004 4 - Hives Date Reviewed: 02/24/2024 Reviewed by: Oscar Hurt RN - Fully Assessed Reason for Visit: Returning Patient's Call [[phone]] Prescriptions as of 02/28/2024 - terazosin (HYTRIN) 5 mg capsule Take 1 capsule by mouth every afternoon. - furosemide (LASIX) 20 mg tablet Take 20 mg by mouth every morning. - terazosin (HYTRIN) 2 mg capsule Take 1 capsule by mouth daily at bedtime. - amLODIPine (NORVASC) 10 mg tablet Take 1 tablet by mouth once daily. - lisinopril (ZESTRIL, PRINIVIL) 40 mg tablet Take 1 tablet by mouth twice daily. - leuprolide (LUPRON DEPOT, 4 MONTH,) 30 mg injection Inject 30 mg intramuscularly every 4 months. - leuprolide (LUPRON DEPOT, 4 MONTH,) 30 mg injection Inject 30 mg intramuscularly every 4 months. - leuprolide (LUPRON DEPOT, 4 MONTH,) 30 mg injection Inject 30 mg intramuscularly every 4 months. - mv with rep-DG-rtduzbgb-gink go (ONE-A-DAY MEN'S 50+ ADVANTAGE) 400-300-120 mcg-mcg-mg tab Take 1 tablet by mouth once daily. - ASPIRIN 81 MG ORAL TAB Take one (1) tablet daily . Problem List As Of Date 02/28/2024 Noted Resolved BENIGN HYPERTENSION [I10] OSTEOARTHROS NOS-UNSPEC [M19.90] OVERWEIGHT [E66.3] 02/26/2006 Elevated prostate specific antigen (PSA) [R97.2*05/09/2006 08/10/2011 BENIGN NEOPLASM LG BOWEL [D12.6] DIVERTICULOSIS OF COLON W/O BLEED [K57.30] INT HEMORRHOID W/O COMPL [K64.8] Hypertrophy of prostate with urinary obstructio* 7 11/24/2011 SEBORRHEIC KERATOSIS NOS [L82.1] 10/29/2008 CHR SOLAR SKIN DAMAGE NOS [L57.8] 10/29/2008 Actinic Keratosis [L57.0] 05/19/2009 Rosacea [L71.9] 05/19/2009 Melanocytic Nevus of Trunk [D22.5] 05/19/2009 Solar Lentigo [L81.4] 05/19/2009 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] 05/19/2009 Prostate cancer [C61] 07/06/2011 BPH (benign prostatic hyperplasia) [N40.0] 07/06/2011 11/24/2011 Colon cancer screening [Z12.11] 11/21/2015 Gross hematuria [R31.0] 02/07/2023 Encounter Status:Closed by AMALIA SHAH on 02/28/24 Normal [facility] Telephone (URON) BARBARA MILAN ([id number]) 1945 M Date Time Provider Department 02/28/24 AMALIA SHAH During your visit today, we recorded the following information about you: Allergies As of Date: 02/28/2024 Noted Allergy Reaction 8-AMINOQUINOLINES 12/23/2023 ATENOLOL 12/22/2004 16 - Unknown HYDROCHLOROTHIAZIDE 12/22/2004 16 - Unknown INDOCIN (INDOMETHACIN SODIUM) 07/28/2012 8 - GI Upset LOSARTAN POTASSIUM 08/19/2014 4 - Hives SULFA (SULFONAMIDE ANTIBIOTICS) 12/22/2004 4 - Hives Date Reviewed: 02/24/2024 Reviewed by: Oscar Hurt, [place] - Fully Assessed Prescriptions as of 02/28/2024 - terazosin (HYTRIN) 5 mg capsule Take 1 capsule by mouth every afternoon. - furosemide (LASIX) 20 mg tablet Take 20 mg by mouth every morning. - terazosin (HYTRIN) 2 mg capsule Take 1 capsule by mouth daily at bedtime. - amLODIPine (NORVASC) 10 mg tablet Take 1 tablet by mouth once daily. - lisinopril (ZESTRIL, PRINIVIL) 40 mg tablet Take 1 tablet by mouth twice daily. - leuprolide (LUPRON DEPOT, 4 MONTH,) 30 mg injection Inject 30 mg intramuscularly every 4 months. - leuprolide (LUPRON DEPOT, 4 MONTH,) 30 mg injection Inject 30 mg intramuscularly every 4 months. - leuprolide (LUPRON DEPOT, 4 MONTH,) 30 mg injection Inject 30 mg intramuscularly every 4 months. - mv with btm-[place]-qimzqivf-gink go (ONE-A-DAY MEN'S 50+ ADVANTAGE) 400-300-120 mcg-mcg-mg tab Take 1 tablet by mouth once daily. - ASPIRIN 81 MG ORAL TAB Take one (1) tablet daily . Problem List As Of Date 02/28/2024 Noted Resolved BENIGN HYPERTENSION [I10] OSTEOARTHROS NOS-UNSPEC [M19.90] OVERWEIGHT [E66.3] 02/26/2006 Elevated prostate specific antigen (PSA) [R97.2*05/09/2006 08/10/2011 BENIGN NEOPLASM LG BOWEL [D12.6] DIVERTICULOSIS OF COLON W/O BLEED [K57.30] INT HEMORRHOID W/O COMPL [K64.8] Hypertrophy of prostate with urinary obstructio* 7 11/24/2011 SEBORRHEIC KERATOSIS NOS [L82.1] 10/29/2008 CHR SOLAR SKIN DAMAGE NOS [L57.8] 10/29/2008 Actinic Keratosis [L57.0] 05/19/2009 Rosacea [L71.9] 05/19/2009 Melanocytic Nevus of Trunk [D22.5] 05/19/2009 Solar Lentigo [L81.4] 05/19/2009 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] 05/19/2009 Prostate cancer [C61] 07/06/2011 BPH (benign prostatic hyperplasia) [N40.0] 07/06/2011 11/24/2011 Colon cancer screening [Z12.11] 11/21/2015 Gross hematuria [R31.0] 02/07/2023 Encounter Status:Closed by AMALIA SHAH on 02/28/24 [facility] CNOVon 02-24-2024 CNOV Office Visit (UROSMN) BARBARA MILAN ([id number]) 1945 M Date Time Provider Department 02/24/24 1:00 PM MATT GARCIA URONIKITA During your visit today, we recorded the following information about you: Matt Garcia MD 02/24/2024 2:04 PM Signed PHYSICIAN'S NOTE: Procedure: Cystoscopy Epic notes reviewed: yes 78 year old male with a history of [place] 9 prostate cancer sp RP 2011 and XRT 2015 + ADT who presents for 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 Last cysto in December: 3cm stenosis just proximal to the external sphincter 20F worthy was removed immediately prior to cystoscopy small capacity, radiation cystitis, bullous edema from catheter Plan at that time was HBO Since then he had a SPT placed He has done 29 sessions of hbo Indication: bladder neck contracture, radiation cystitis Informed consent obtained yes. Discussed RBAPC. TECHNIQUE: The procedure was fully explained to the patient, risks were reviewed. The patient was placed in the supine position. The genitalia were prepped with betadine, and the urethra was anesthetized with viscous 2% lidocaine. The flexible cystoscope was introduced into the urethra and advanced under direct vision with findings as outlined below. At the conclusion of the procedure, the cystoscope was withdrawn. FINDINGS Normal until proximal bulb Tight stricture, nearly obliterated with pinpoint lumen at VUAS Scope passed via SPT Small capacity radiated bladder with fluffy debris at bladder neck SPT replaced COMPLICATIONS: None RECOMMENDATIONS: Discussed findings with patient. POST PROCEDURE Condition: satisfactory Plan: 78 M w radiation cystitis, prior RP and XRT, ADT VUAS Now with SPT Discussed options Spt Bladder neck incision+/- CIC His goal is to get back to depends Risk of recurrence or USF Diversion as end stage option He will consider and let me know MD Maru Borden Isabella, RN 02/24/2024 1:51 PM Signed Actual procedure/procedure scheduled: Yes Performing provider/scheduled provider: Yes Patient was roomed in: Q9- 11 Research Director offered:Patient declines Patient arrived in the room at: 1245 Patient ready for procedure: 1308 The procedure started at ( Time Only): 1315 The procedure ended at: 1320 Was the procedure delayed: No The patient left the procedure room at: 1348 Oscar Hurt RN PRE PROCEDURE ASSESSMENT- Cysto Procedure Indication: Cystoscopy Latex Allergy: No Allergies reviewed and updated. Yes Pre-Procedure Vital Signs: BP: 109/74 Pulse: 94 Heart valve replacement: No Joint replacement: Yes, left knee 12 yrs ago Back Office UA otained: yes PROCEDURE PREP-Cysto Patient ID with two(2)identifiers verified by: Oscar Hurt RN Pre-Procedure Antibiotics: None taken at home nor prior to procedure Patient Prep: Patient has a 16 fr Latex sp catheter which was removed without difficulty after removing 10ccs of sterile water from balloon. Betadine Scrub to suprapubic insertion site perineum and placement of Sterile Drape. COMPLETED Anesthetic Given:Administered by MD - see Procedure Physician Note. Oscar Hurt RN UNIVERSAL PROTOCOL / SAFETY CHECKLIST Procedure to be performed: Cystoscopy Sign in Communication: Completed Time Out: Team Confirms the Correct Patient, Correct Procedure, Correct Site and Site Marking, Correct Position (if applicable). Sign Out Discussion: Completed Oscar Hurt RN POST PROCEDURE NURSE ASSESSMENT Present along with physician during procedure exam. Oscra Hurt RN Instruction sheet given and reviewed and patient verbalizes understanding: yes A new 16 fr latex catheter inserted in to suprapubic site by Dr Carlo Hall, balloon inflated with sterile water 10 ccs and catheter attached to an overnight bag. Patient tolerated the procedure well. Post Procedure Antibiotic: none Current pain intensity is 0 on a 0-10 pain scale. Oscar Hurt RN AMBULATORY PATIENT EDUCATION THE FOLLOWING WAS EVALUATED Motivation To Learn: Interested Family/Significant Other Support: Unable to assess - Family not present Cognitive Ability: Alert/Oriented Method of Instruction: Individual instruction Written instruction/Handouts Verbal instruction The Following Influencing Factors Were Barriers To This Education Session: None The Following Physical Limitations Were Barriers To This Education Session: None Instruction Provided To: Patient Podiatric Aide Present: not applicable Discipline: Nursing Learning Topic: SURVIVAL SKILLS: Complication Prevention Symptom Management Patient Evaluation: Verbalizes understanding: Yes Supplemental Material Given: Written Material Instructed By Oscar Hurt RN In Department Urology . Matt Garcia MD 02/24/2024 1:41 PM Addendum Cystoscopy showed scar tissue at t (more content not included)... Normal [facility] UA DIP, URINE (POC)on 2023 BILIRUBIN UA (POCT) Negative Negative [facility] CLARITY UA (POCT) Cloudy [facility] COLOR UA (POCT) Yellow [facility] GLUCOSE UA (POCT) Negative Negative mg/dL [facility] Hemoglobin Ql (U) Large Abnormal Negative [facility] Interpretation and review of laboratory results Abnormal [facility] KETONE UA (POCT) Negative Negative mg/dL [facility] LEUKOCYTES UA (POCT) Large Abnormal Negative [facility] NITRITE UA (POCT) Positive Abnormal Negative [facility] PH UA (POCT) 6.0 4.5 - 8.0 [facility] Protein Ql (U) 100 mg/dL Abnormal Negative [facility] SPECIFIC GRAVITY UA (POCT) 1.020 1.005 - 1.030 [facility] UROBILINOGEN UA (POCT) 0.2 Carmita l E.U./dL [facility] Location:[facility], [address] [place] [address] POINT OF CARE [facility] MR/POSTOP.ANEon 01-16-2024 MR/POSTOP.ANE Normal [facility] MR/[id number] 01-16-2024 MR/POSTOPAN2 Normal [facility] MR/POSTOP.ANEon 01-15-2024 MR/POSTOP.ANE Normal [facility] MR/HMFEZXTO7ve 01-15-2024 MR/POSTOPAN2 Normal [facility] Operative Reporton Operative Report Normal [facility] Basic Metabolic Profile (BMP )on 01-14-2024 BUN/CRE 16.9 RATIO Normal 10-20 [facility] Comment on above: Performed By: #### L 100.0100, L300.4310, L300.3900, L500.2500 ####[facility] [address] [place], [address] CA,Total 8.8 mg/dL Normal 8.5-10.1 [facility] Comment on above: Performed By: #### L 100.0100, L300.4310, L300.3900, L500.2500 ####[facility] [address] [place], [address] Chloride [Moles/Vol] 110 mmol/L High 98-107 [facility] Comment on above: Performed By: #### L 100.0100, L300.4310, L300.3900, L500.2500 ####[facility] [address] [place], [address] CO2 [Moles/Vol] 23.0 mmol/L Normal 21.0-32.0 [facility] Comment on above: Performed By: #### L 100.0100, L300.4310, L300.3900, L500.2500 ####[facility] [address] [place], [address] Creatinine [Mass/Vol] 1.18 mg/dL Normal 0.70-1.30 [facility] Comment on above: Result Comment: The validity of the calculated GFR GFRAA in patients over70 years has not been determined. Clinical correlation isessential. Performed By: #### L 100.0100, L300.4310, L300.3900, L500.2500 ####[facility] [address] [place], [address] ECRCL 54.99 ml/min Normal [facility] Comment on above: Performed By: #### L 100.0100, L300.4310, L300.3900, L500.2500 ####[facility] [address] [place], [address] EST GFR - AA 77 mL/min Normal >60 [facility] Comment on above: Result Comment: Afri can Mont[place]gr[place] GFR Calc Performed By: #### L 100.0100, L300.4310, L300.3900, L500.2500 ####[facility] [address] [place], [address] GAP 6 Normal 5-15 [facility] Comment on above: Performed By: #### L 100.0100, L300.4310, L300.3900, L500.2500 ####[facility] [address] [place], [address] GFR/1.73 sq M.predicted among non-blacks MDRD (S/P/Bld) [Vol rate/Area] 64 mL/min/{1.73_m2} Normal >60 [facility] Comment on above: Result Comment: Non- GFR Calc Performed By: #### L 100.0100, L300.4310, L300.3900, L500.2500 ####[facility] [address] [place], [address] Glucose [Mass/Vol] 103 mg/dL Normal 74-106 [facility] Comment on above: Result Comment: Fast ing Glucose result from 100 to 125 mg/dLsuggests IMPAIRED HOMEOSTASIS per A.D.A. criteria. Performed By: #### L 100.0100, L300.4310, L300.3900, L500.2500 ####[facility] [address] [place], [address] Potassium [Moles/Vol] 4.4 mmol/L Normal 3.5-5.1 [facility] Comment on above: Performed By: #### L 100.0100, L300.4310, L300.3900, L500.2500 ####[facility] [address] [place], [address] Sodium [Moles/Vol] 139 mmol/L Normal 136-145 [facility] Comment on above: Performed By: #### L 100.0100, L300.4310, L300.3900, L500.2500 ####[facility] [address] [place], [address] Urea nitrogen [Mass/Vol] 20 mg/dL High 7-18 [facility] Comment on above: Performed By: #### L 100.0100, L300.4310, L300.3900, L500.2500 ####[facility] [address] [place], [address] CBC W/Diff, Automatedon 01-04 Absolute Lymph 0.72 X10 3/uL Low 0.83-4.51 [facility] Comment on above: Performed By: #### L 100.0100, L300.4310, L300.3900, L500.2500 ####[facility] [address] [place], [address] Absolute Neut 4.8 X10 3/uL Normal 2.0-7.7 [facility] Comment on above: Performed By: #### L 100.0100, L300.4310, L300.3900, L500.2500 ####[facility] [address] [place], [address] Basophils/100 WBC (Bld) 0.5 % Normal 0-1 [facility] Comment on above: Performed By: #### L 100.0100, L300.4310, L300.3900, L500.2500 ####[facility] [address] [place], [address] Eosinophils/100 WBC (Bld) 5.7 % High 0-5 [facility] Comment on above: Performed By: #### L 100.0100, L300.4310, L300.3900, L500.2500 ####[facility] [address] [place], [address] Erythrocyte distribution width (RBC) [Ratio] 13.1 % Normal 11.6-14.6 [facility] Comment on above: Performed By: #### L 100.0100, L300.4310, L300.3900, L500.2500 ####[facility] [address] [place], [address] Hematocrit (Bld) [Volume fraction] 29.7 % Low 40-54 [facility] Comment on above: Performed By: #### L 100.0100, L300.4310, L300.3900, L500.2500 ####[facility] [address] [place], [address] Hemoglobin (Bld) [Mass/Vol] 9.9 g/dL Low 13.0-16.5 [facility] Comment on above: Performed By: #### L 100.0100, L300.4310, L300.3900, L500.2500 ####[facility] [address] [place], [address] IG% 0.800 Normal 0.0-0.9 [facility] Comment on above: Result Comment: IG% - Immature Granulocytes (promyelocytes, myelocytes andmetamyelocytes) > 1% indicates that a LEFT SHIFT is Present. Performed By: #### L 100.0100, L300.4310, L300.3900, L500.2500 ####[facility] [address] [place], [address] Lymphocytes/100 WBC (Bld) 10.8 % Low 19-41 [facility] Comment on above: Performed By: #### L 100.0100, L300.4310, L300.3900, L500.2500 ####[facility] [address] [place], [address] MCH (RBC) [Entitic mass] 29.6 pg Normal 27.0-32.0 [facility] Comment on above: Performed By: #### L 100.0100, L300.4310, L300.3900, L500.2500 ####[facility] [address] [place], [address] MCHC (RBC) [Mass/Vol] 33.3 g/dL Normal 32-36 [facility] Comment on above: Performed By: #### L 100.0100, L300.4310, L300.3900, L500.2500 ####[facility] [address] [place], [address] MCV (RBC) [Entitic vol] 88.9 fL Normal 80-94 [facility] Comment on above: Performed By: #### L 100.0100, L300.4310, L300.3900, L500.2500 ####[facility] [address] [place], [address] Monocytes/100 WBC (Bld) 9.8 % Normal 0-10 [facility] Comment on above: Performed By: #### L 100.0100, L300.4310, L300.3900, L500.2500 ####[facility] [address] [place], [address] Neutrophils/100 WBC (Bld) 72.4 % High 47-70 [facility] Comment on above: Performed By: #### L 100.0100, L300.4310, L300.3900, L500.2500 ####[facility] [address] [place], [address] Nucleated RBC (Bld) [#/Vol] 0 10*3/uL Normal 0-5 [facility] Comment on above: Performed By: #### L 100.0100, L300.4310, L300.3900, L500.2500 ####[facility] [address] [place], [address] Platelet mean volume (Bld) [Entitic vol] 10.2 fL Normal 6.2-12.0 [facility] Comment on above: Performed By: #### L 100.0100, L300.4310, L300.3900, L500.2500 ####[facility] [address] [place], [address] Platelets (Bld) [#/Vol] 281 10*3/uL Normal 150-450 [facility] Comment on above: Performed By: #### L 100.0100, L300.4310, L300.3900, L500.2500 ####[facility] [address] [place], [address] RBC (Bld) [#/Vol] 3.34 10*6/uL Low 4.6-6.2 [facility] Comment on above: Performed By: #### L 100.0100, L300.4310, L300.3900, L500.2500 ####[facility] [address] [place], [address] RDW SD 42.7 fl Normal 35.1-43.9 [facility] Comment on above: Performed By: #### L 100.0100, L300.4310, L300.3900, L500.2500 ####[facility] [address] [place], [address] WBC (Bld) [#/Vol] 6.7 10*3/uL Normal 4.4-11.0 [facility] Comment on above: Performed By: #### L 100.0100, L300.4310, L300.3900, L500.2500 ####[facility] [address] [place], [address] Discharge Instructionon 01-04 Discharge Instruction Normal [facility] Emergency Department Summary on 01-14-2024 Emergency Department Summary Normal [facility] Partial Thromboplast Timeon 01-14-2024 aPTT Coag (Bld) [Time] 34.9 s Normal 24.1-36.2 [facility] Comment on above: Performed By: #### L 100.0100, L300.4310, L300.3900, L500.2500 ####[facility] [address] [place], [address] Prothrombin Time w/INRon INR Coag (PPP) [Relative time] 1.2 {INR} Normal [facility] Comment on above: Performed By: #### L 100.0100, L300.4310, L300.3900, L500.2500 ####[facility] [address] [place], [address] PT Coag (PPP) [Time] 15.2 s High 11.7-14.9 [facility] Comment on above: Performed By: #### L 100.0100, L300.4310, L300.3900, L500.2500 ####[facility] [address] [place], [address] 12 Lead EKGon 01-12-2024 12 Lead EKG Normal [facility] CBC W/Diff, Automatedon 08-0 Absolute Lymph 0.88 X10 3/uL Normal 0.83-4.51 [facility] Comment on above: Performed By: #### L 300.3900, L100.0100, L300.4310 ####[facility] [address] [place], [address] Absolute Neut 4.9 X10 3/uL Normal 2.0-7.7 [facility] Comment on above: Performed By: #### L 300.3900, L100.0100, L300.4310 ####[facility] [address] [place], [address] Basophils/100 WBC (Bld) 0.6 % Normal 0-1 [facility] Comment on above: Performed By: #### L 300.3900, L100.0100, L300.4310 ####[facility] [address] [place], [address] Eosinophils/100 WBC (Bld) 6.5 % High 0-5 [facility] Comment on above: Performed By: #### L 300.3900, L100.0100, L300.4310 ####[facility] [address] [place], [address] Erythrocyte distribution width (RBC) [Ratio] 13.0 % Normal 11.6-14.6 [facility] Comment on above: Performed By: #### L 300.3900, L100.0100, L300.4310 ####[facility] [address] [place], [address] Hematocrit (Bld) [Volume fraction] 30.7 % Low 40-54 [facility] Comment on above: Performed By: #### L 300.3900, L100.0100, L300.4310 ####[facility] [address] [place], [address] Hemoglobin (Bld) [Mass/Vol] 10.1 g/dL Low 13.0-16.5 [facility] Comment on above: Performed By: #### L 300.3900, L100.0100, L300.4310 ####[facility] [address] [place], [address] IG% 0.400 Normal 0.0-0.9 [facility] Comment on above: Result Comment: IG% - Immature Granulocytes (promyelocytes, myelocytes andmetamyelocytes) > 1% indicates that a LEFT SHIFT is Present. Performed By: #### L 300.3900, L100.0100, L300.4310 ####[facility] [address] [place], [address] Lymphocytes/100 WBC (Bld) 12.6 % Low 19-41 [facility] Comment on above: Performed By: #### L 300.3900, L100.0100, L300.4310 ####[facility] [address] [place], [address] MCH (RBC) [Entitic mass] 29.5 pg Normal 27.0-32.0 [facility] Comment on above: Performed By: #### L 300.3900, L100.0100, L300.4310 ####[facility] [address] [place], [address] MCHC (RBC) [Mass/Vol] 32.9 g/dL Normal 32-36 [facility] Comment on above: Performed By: #### L 300.3900, L100.0100, L300.4310 ####[facility] [address] [place], [address] MCV (RBC) [Entitic vol] 89.8 fL Normal 80-94 [facility] Comment on above: Performed By: #### L 300.3900, L100.0100, L300.4310 ####[facility] [address] [place], [address] Monocytes/100 WBC (Bld) 9.1 % Normal 0-10 [facility] Comment on above: Performed By: #### L 300.3900, L100.0100, L300.4310 ####[facility] [address] [place], [address] Neutrophils/100 WBC (Bld) 70.8 % High 47-70 [facility] Comment on above: Performed By: #### L 300.3900, L100.0100, L300.4310 ####[facility] [address] [place], [address] Nucleated RBC (Bld) [#/Vol] 0 10*3/uL Normal 0-5 [facility] Comment on above: Performed By: #### L 300.3900, L100.0100, L300.4310 ####[facility] [address] [place], [address] Platelet mean volume (Bld) [Entitic vol] 10.9 fL Normal 6.2-12.0 [facility] Comment on above: Performed By: #### L 300.3900, L100.0100, L300.4310 ####[facility] [address] [place], [address] Platelets (Bld) [#/Vol] 246 10*3/uL Normal 150-450 [facility] Comment on above: Performed By: #### L 300.3900, L100.0100, L300.4310 ####[facility] [address] [place], [address] RBC (Bld) [#/Vol] 3.42 10*6/uL Low 4.6-6.2 [facility] Comment on above: Performed By: #### L 300.3900, L100.0100, L300.4310 ####[facility] [address] [place], [address] RDW SD 42.5 fl Normal 35.1-43.9 [facility] Comment on above: Performed By: #### L 300.3900, L100.0100, L300.4310 ####[facility] [address] [place], [address] WBC (Bld) [#/Vol] 7.0 10*3/uL Normal 4.4-11.0 [facility] Comment on above: Performed By: #### L 300.3900, L100.0100, L300.4310 ####[facility] [address] [place], [address] Discharge Instructionon Discharge Instruction Normal [facility] MR/POSTOP.ANEon 01-12-2024 MR/POSTOP.ANE Normal [facility] MR/PGOPAWGE5zn 01-12-2024 MR/POSTOPAN2 Normal [facility] Operative Reporton Operative Report Normal [facility] Partial Thromboplast Timeon 01-12-2024 aPTT Coag (Bld) [Time] 34.9 s Normal 24.1-36.2 [facility] Comment on above: Performed By: #### L 300.3900, L100.0100, L300.4310 ####[facility] [address] [place], [address] Prothrombin Time w/INRon INR Coag (PPP) [Relative time] 1.2 {INR} Normal [facility] Comment on above: Performed By: #### L 300.3900, L100.0100, L300.4310 ####[facility] [address] [place], [address] PT Coag (PPP) [Time] 15.0 s High 11.7-14.9 [facility] Comment on above: Performed By: #### L 300.3900, L100.0100, L300.4310 ####[facility] [address] [place], [address] Basic Metabolic Profile (BMP )on 01-11-2024 BUN/CRE 16.4 RATIO Normal 10-20 [facility] Comment on above: Performed By: #### L 100.0100, L500.2500 ####[facility] [address] [place], [address] CA,Total 9.2 mg/dL Normal 8.5-10.1 [facility] Comment on above: Performed By: #### L 100.0100, L500.2500 ####[facility] [address] [place], [address] Chloride [Moles/Vol] 108 mmol/L High 98-107 [facility] Comment on above: Performed By: #### L 100.0100, L500.2500 ####[facility] [address] [place], [address] CO2 [Moles/Vol] 24.0 mmol/L Normal 21.0-32.0 [facility] Comment on above: Performed By: #### L 100.0100, L500.2500 ####[facility] [address] [place], [address] Creatinine [Mass/Vol] 1.34 mg/dL High 0.70-1.30 [facility] Comment on above: Result Comment: The validity of the calculated GFR GFRAA in patients over70 years has not been determined. Clinical correlation isessential. Performed By: #### L 100.0100, L500.2500 ####[facility] [address] [place], [address] ECRCL 48.42 ml/min Normal [facility] Comment on above: Performed By: #### L 100.0100, L500.2500 ####[facility] [address] [place], [address] EST GFR - AA 67 mL/min Normal >60 [facility] Comment on above: Result Comment: Afri can Mont[place]gr[place] GFR Calc Performed By: #### L 100.0100, L500.2500 ####[facility] [address] [place], [address] GAP 6 Normal 5-15 [facility] Comment on above: Performed By: #### L 100.0100, L500.2500 ####[facility] [address] [place], [address] GFR/1.73 sq M.predicted among non-blacks MDRD (S/P/Bld) [Vol rate/Area] 55 mL/min/{1.73_m2} Low >60 [facility] Comment on above: Result Comment: Non- GFR Calc Performed By: #### L 100.0100, L500.2500 ####[facility] [address] [place], [address] Glucose [Mass/Vol] 97 mg/dL Normal 74-106 [facility] Comment on above: Performed By: #### L 100.0100, L500.2500 ####[facility] [address] [place], [address] Potassium [Moles/Vol] 4.2 mmol/L Normal 3.5-5.1 [facility] Comment on above: Performed By: #### L 100.0100, L500.2500 ####[facility] [address] [place], [address] Sodium [Moles/Vol] 138 mmol/L Normal 136-145 [facility] Comment on above: Performed By: #### L 100.0100, L500.2500 ####[facility] [address] [place], [address] Urea nitrogen [Mass/Vol] 22 mg/dL High 7-18 [facility] Comment on above: Performed By: #### L 100.0100, L500.2500 ####[facility] [address] [place], [address] CBC W/Diff, Automatedon 08-0 7-2024 Absolute Lymph 0.53 X10 3/uL Low 0.83-4.51 [facility] Comment on above: Performed By: #### L 100.0100, L500.2500 ####[facility] [address] [place], [address] Absolute Neut 5.7 X10 3/uL Normal 2.0-7.7 [facility] Comment on above: Performed By: #### L 100.0100, L500.2500 ####[facility] [address] [place], [address] Basophils/100 WBC (Bld) 0.4 % Normal 0-1 [facility] Comment on above: Performed By: #### L 100.0100, L500.2500 ####[facility] [address] [place], [address] Eosinophils/100 WBC (Bld) 4.1 % Normal 0-5 [facility] Comment on above: Performed By: #### L 100.0100, L500.2500 ####[facility] [address] [place], [address] Erythrocyte distribution width (RBC) [Ratio] 12.9 % Normal 11.6-14.6 [facility] Comment on above: Performed By: #### L 100.0100, L500.2500 ####[facility] [address] [place], [address] Hematocrit (Bld) [Volume fraction] 31.8 % Low 40-54 [facility] Comment on above: Performed By: #### L 100.0100, L500.2500 ####[facility] [address] [place], [address] Hemoglobin (Bld) [Mass/Vol] 10.6 g/dL Low 13.0-16.5 [facility] Comment on above: Performed By: #### L 100.0100, L500.2500 ####[facility] [address] [place], [address] IG% 0.500 Normal 0.0-0.9 [facility] Comment on above: Result Comment: IG% - Immature Granulocytes (promyelocytes, myelocytes andmetamyelocytes) > 1% indicates that a LEFT SHIFT is Present. Performed By: #### L 100.0100, L500.2500 ####[facility] [address] [place], [address] Lymphocytes/100 WBC (Bld) 7.2 % Low 19-41 [facility] Comment on above: Performed By: #### L 100.0100, L500.2500 ####[facility] [address] [place], [address] MCH (RBC) [Entitic mass] 29.7 pg Normal 27.0-32.0 [facility] Comment on above: Performed By: #### L 100.0100, L500.2500 ####[facility] [address] [place], [address] MCHC (RBC) [Mass/Vol] 33.3 g/dL Normal 32-36 [facility] Comment on above: Performed By: #### L 100.0100, L500.2500 ####[facility] [address] [place], [address] MCV (RBC) [Entitic vol] 89.1 fL Normal 80-94 [facility] Comment on above: Performed By: #### L 100.0100, L500.2500 ####[facility] [address] [place], [address] Monocytes/100 WBC (Bld) 9.9 % Normal 0-10 [facility] Comment on above: Performed By: #### L 100.0100, L500.2500 ####[facility] [address] [place], [address] Neutrophils/100 WBC (Bld) 77.9 % High 47-70 [facility] Comment on above: Performed By: #### L 100.0100, L500.2500 ####[facility] [address] [place], [address] Nucleated RBC (Bld) [#/Vol] 0 10*3/uL Normal 0-5 [facility] Comment on above: Performed By: #### L 100.0100, L500.2500 ####[facility] [address] [place], [address] Platelet mean volume (Bld) [Entitic vol] 10.1 fL Normal 6.2-12.0 [facility] Comment on above: Performed By: #### L 100.0100, L500.2500 ####[facility] [address] [place], [address] Platelets (Bld) [#/Vol] 243 10*3/uL Normal 150-450 [facility] Comment on above: Performed By: #### L 100.0100, L500.2500 ####[facility] [address] [place], [address] RBC (Bld) [#/Vol] 3.57 10*6/uL Low 4.6-6.2 [facility] Comment on above: Performed By: #### L 100.0100, L500.2500 ####[facility] [address] [place], [address] RDW SD 42.0 fl Normal 35.1-43.9 [facility] Comment on above: Performed By: #### L 100.0100, L500.2500 ####[facility] [address] [place], [address] WBC (Bld) [#/Vol] 7.3 10*3/uL Normal 4.4-11.0 [facility] Comment on above: Performed By: #### L 100.0100, L500.2500 ####[facility] [address] [place], [address] Emergency Department Summary on 01-11-2024 Emergency Department Summary Normal [facility] Emergency Department Summary Normal [facility] Urinalysis, Completeon 01-10 RBC 50-100 SEEN Normal 0-5 [facility] Comment on above: Order Comment: COLOR OF URINE MAY AFFECT DIPSTICK RESULTS.CT SCAN SPECIAL PROCEDURES TECHNOLOGIST TO SPECIFY Performed By: #### L 400.0001 ####[facility] [address] [place], [address] BACTERIA 0 SEEN Normal None Seen [facility] Comment on above: Order Comment: COLOR OF URINE MAY AFFECT DIPSTICK RESULTS.CT SCAN SPECIAL PROCEDURES TECHNOLOGIST TO SPECIFY Performed By: #### L 400.0001 ####[facility] [address] [place], [address] EPI,SQUAMOUS 0 SEEN Normal 0-5 [facility] Comment on above: Order Comment: COLOR OF URINE MAY AFFECT DIPSTICK RESULTS.CT SCAN SPECIAL PROCEDURES TECHNOLOGIST TO SPECIFY Performed By: #### [id number] ####[facility] [address] [place], [address] Mucus Ql (Urine sed) 0 SEEN Normal [facility] Comment on above: Order Comment: COLOR OF URINE MAY AFFECT DIPSTICK RESULTS.CT SCAN SPECIAL PROCEDURES TECHNOLOGIST TO SPECIFY Performed By: #### L [id number] ####[facility] [address] [place], [address] WBC 0 SEEN Normal 0-5 [facility] Comment on above: Order Comment: COLOR OF URINE MAY AFFECT DIPSTICK RESULTS.CT SCAN SPECIAL PROCEDURES TECHNOLOGIST TO SPECIFY Performed By: #### L 400.0001 ####[facility] [address] [place], [address] BACTERIA Normal None Seen [facility] Comment on above: Order Comment: COLLE CTOR TO SPECIFY Result Comment: Canc elled via OM: Duplicate Order Performed By: #### L 400.0001 ####[facility] [address] [place], [address] BILIRUBIN URINE Normal Negative [facility] Comment on above: Order Comment: COLLE CTOR TO SPECIFY Result Comment: Canc elled via OM: Duplicate Order Performed By: #### L 400.0001 ####[facility] [address] [place], [address] Clarity (U) Normal Clear [facility] Comment on above: Order Comment: COLLE CTOR TO SPECIFY Result Comment: Canc elled via OM: Duplicate Order Performed By: #### L 400.0001 ####[facility] [address] [place], [address] Color (U) Normal Yellow [facility] Comment on above: Order Comment: COLLE CTOR TO SPECIFY Result Comment: Canc elled via OM: Duplicate Order Performed By: #### L 400.0001 ####[facility] [address] [place], [address] EPI,SQUAMOUS Normal 0-5 [facility] Comment on above: Order Comment: COLLE CTOR TO SPECIFY Result Comment: Canc elled via OM: Duplicate Order Performed By: #### L 400.0001 ####[facility] [address] [place], [address] GLUCOSE, UR Normal Normal [facility] Comment on above: Order Comment: COLLE CTOR TO SPECIFY Result Comment: Canc elled via OM: Duplicate Order Performed By: #### L 400.0001 ####[facility] [address] [place], [address] KETONE UR Normal Negative [facility] Comment on above: Order Comment: JAY DEWITTOR TO SPECIFY Result Comment: Canc elled via OM: Duplicate Order Performed By: #### L 400.0001 ####[facility] [address] [place], [address] LEUK ESTERASE Normal Negative [facility] Comment on above: Order Comment: JAY CTOR TO SPECIFY Result Comment: Canc elled via OM: Duplicate Order Performed By: #### L 400.0001 ####[facility] [address] [place], [address] Mucus Ql (Urine sed) Normal [facility] Comment on above: Order Comment: JAY DEWITTOR TO SPECIFY Result Comment: Canc elled via OM: Duplicate Order Performed By: #### L 400.0001 ####[facility] [address] [place], [address] Nitrite Ql (U) Normal Negative [facility] Comment on above: Order Comment: JAY CTOR TO SPECIFY Result Comment: Canc elled via OM: Duplicate Order Performed By: #### L 400.0001 ####[facility] [address] [place], [address] OCCULT BLOOD-UR Normal Negative [facility] Comment on above: Order Comment: JAY DEWITTOR TO SPECIFY Result Comment: Canc elled via OM: Duplicate Order Performed By: #### L 400.0001 ####[facility] [address] [place], [address] pH UR Normal 5.0 - 8.0 [facility] Comment on above: Order Comment: JAY DEWITTOR TO SPECIFY Result Comment: Canc elled via OM: Duplicate Order Performed By: #### L 400.0001 ####[facility] [address] [place], [address] PROT DIPSTX Normal Negative [facility] Comment on above: Order Comment: COLLE CTOR TO SPECIFY Result Comment: Canc elled via OM: Duplicate Order Performed By: #### L 400.0001 ####[facility] [address] [place], [address] RBC Normal 0-5 [facility] Comment on above: Order Comment: JAY CTOR TO SPECIFY Result Comment: Canc elled via OM: Duplicate Order Performed By: #### L 400.0001 ####[facility] [address] [place], [address] SP.GR. DIPSTX Normal 1.002-1.030 [facility] Comment on above: Order Comment: JAY CTOR TO SPECIFY Result Comment: Canc elled via OM: Duplicate Order Performed By: #### L 400.0001 ####[facility] [address] [place], [address] UR Preservative Normal [facility] Comment on above: Order Comment: COLLE CTOR TO SPECIFY Result Comment: Canc elled via OM: Duplicate Order Performed By: #### L 400.0001 ####[facility] [address] [place], [address] UROBILI Normal Normal [facility] Comment on above: Order Comment: JAY CTOR TO SPECIFY Result Comment: Canc elled via OM: Duplicate Order Performed By: #### L 400.0001 ####[facility] [address] [place], [address] WBC Normal 0-5 [facility] Comment on above: Order Comment: JAY CTOR TO SPECIFY Result Comment: Canc elled via OM: Duplicate Order Performed By: #### L 400.0001 ####[facility] [address] [place], [address] PSA,Total- Diagnosticon 08-0 5-2024 PSA, DIAGNOSTIC < 0.01 Normal 0.0-4.0 [facility] Comment on above: Result Comment: This test was performed using the TPSA assay method for [employer] chemistry system. Values obtained with differentassay methods cannot be used interchangably.When changing PSA assays in the course of monitoring apatient, additional sequential testing should be carriedout to confirm baseline values. Performed By: #### L 501.9940 ####[facility] [address] [place], [address] Basic Metabolic Profile (BMP )on 01-08-2024 BUN/CRE 20.3 RATIO High 10-20 [facility] Comment on above: Performed By: #### L 500.2500, L100.0100 ####[facility] [address] [place], [address] CA,Total 8.8 mg/dL Normal 8.5-10.1 [facility] Comment on above: Performed By: #### L 500.2500, L100.0100 ####[facility] [address] [place], [address] Chloride [Moles/Vol] 107 mmol/L Normal 98-107 [facility] Comment on above: Performed By: #### L 500.2500, L100.0100 ####[facility] [address] [place], [address] CO2 [Moles/Vol] 22.0 mmol/L Normal 21.0-32.0 [facility] Comment on above: Performed By: #### L 500.2500, L100.0100 ####[facility] [address] [place], [address] Creatinine [Mass/Vol] 1.18 mg/dL Normal 0.70-1.30 [facility] Comment on above: Result Comment: The validity of the calculated GFR GFRAA in patients over70 years has not been determined. Clinical correlation isessential. Performed By: #### L 500.2500, L100.0100 ####[facility] [address] [place], [address] ECRCL 54.99 ml/min Normal [facility] Comment on above: Performed By: #### L 500.2500, L100.0100 ####[facility] [address] [place], [address] EST GFR - AA 77 mL/min Normal >60 [facility] Comment on above: Result Comment: Afri can Montenegrin GFR Calc Performed By: #### L 500.2500, L100.0100 ####[facility] [address] [place], [address] GAP 7 Normal 5-15 [facility] Comment on above: Performed By: #### L 500.2500, L100.0100 ####[facility] [address] [place], [address] GFR/1.73 sq M.predicted among non-blacks MDRD (S/P/Bld) [Vol rate/Area] 64 mL/min/{1.73_m2} Normal >60 [facility] Comment on above: Result Comment: Non- GFR Calc Performed By: #### L 500.2500, L100.0100 ####[facility] [address] [place], [address] Glucose [Mass/Vol] 97 mg/dL Normal 74-106 [facility] Comment on above: Performed By: #### L 500.2500, L100.0100 ####[facility] [address] [place], [address] Potassium [Moles/Vol] 4.3 mmol/L Normal 3.5-5.1 [facility] Comment on above: Performed By: #### L 500.2500, L100.0100 ####[facility] [address] [place], [address] Sodium [Moles/Vol] 136 mmol/L Normal 136-145 [facility] Comment on above: Performed By: #### L 500.2500, L100.0100 ####[facility] [address] [place], [address] Urea nitrogen [Mass/Vol] 24 mg/dL High 7-18 [facility] Comment on above: Performed By: #### L 500.2500, L100.0100 ####[facility] [address] [place], [address] CBC W/Diff, Automatedon 08-0 4-2023 Absolute Lymph 0.66 X10 3/uL Low 0.83-4.51 [facility] Comment on above: Performed By: #### L 500.2500, L100.0100 ####[facility] [address] [place], [address] Absolute Neut 5.1 X10 3/uL Normal 2.0-7.7 [facility] Comment on above: Performed By: #### L 500.2500, L100.0100 ####[facility] [address] [place], [address] Basophils/100 WBC (Bld) 0.3 % Normal 0-1 [facility] Comment on above: Performed By: #### L 500.2500, L100.0100 ####[facility] [address] [place], [address] Eosinophils/100 WBC (Bld) 4.5 % Normal 0-5 [facility] Comment on above: Performed By: #### L 500.2500, L100.0100 ####[facility] [address] [place], [address] Erythrocyte distribution width (RBC) [Ratio] 12.9 % Normal 11.6-14.6 [facility] Comment on above: Performed By: #### L 500.2500, L100.0100 ####[facility] [address] [place], [address] Hematocrit (Bld) [Volume fraction] 33.1 % Low 40-54 [facility] Comment on above: Performed By: #### L 500.2500, L100.0100 ####[facility] [address] [place], [address] Hemoglobin (Bld) [Mass/Vol] 11.1 g/dL Low 13.0-16.5 [facility] Comment on above: Performed By: #### L 500.2500, L100.0100 ####[facility] [address] [place], [address] IG% 0.600 Normal 0.0-0.9 [facility] Comment on above: Result Comment: IG% - Immature Granulocytes (promyelocytes, myelocytes andmetamyelocytes) > 1% indicates that a LEFT SHIFT is Present. Performed By: #### L 500.2500, L100.0100 ####[facility] [address] [place], [address] Lymphocytes/100 WBC (Bld) 9.6 % Low 19-41 [facility] Comment on above: Performed By: #### L 500.2500, L100.0100 ####[facility] [address] [place], [address] MCH (RBC) [Entitic mass] 30.1 pg Normal 27.0-32.0 [facility] Comment on above: Performed By: #### L 500.2500, L100.0100 ####[facility] [address] [place], [address] MCHC (RBC) [Mass/Vol] 33.5 g/dL Normal 32-36 [facility] Comment on above: Performed By: #### L 500.2500, L100.0100 ####[facility] [address] [place], [address] MCV (RBC) [Entitic vol] 89.7 fL Normal 80-94 [facility] Comment on above: Performed By: #### L 500.2500, L100.0100 ####[facility] [address] [place], [address] Monocytes/100 WBC (Bld) 10.9 % High 0-10 [facility] Comment on above: Performed By: #### L 500.2500, L100.0100 ####[facility] [address] [place], [address] Neutrophils/100 WBC (Bld) 74.1 % High 47-70 [facility] Comment on above: Performed By: #### L 500.2500, L100.0100 ####[facility] [address] [place], [address] Nucleated RBC (Bld) [#/Vol] 0 10*3/uL Normal 0-5 [facility] Comment on above: Performed By: #### L 500.2500, L100.0100 ####[facility] [address] [place], [address] Platelet mean volume (Bld) [Entitic vol] 9.9 fL Normal 6.2-12.0 [facility] Comment on above: Performed By: #### L 500.2500, L100.0100 ####[facility] [address] [place], [address] Platelets (Bld) [#/Vol] 251 10*3/uL Normal 150-450 [facility] Comment on above: Performed By: #### L 500.2500, L100.0100 ####[facility] [address] [place], [address] RBC (Bld) [#/Vol] 3.69 10*6/uL Low 4.6-6.2 [facility] Comment on above: Performed By: #### L 500.2500, L100.0100 ####[facility] [address] [place], [address] RDW SD 42.0 fl Normal 35.1-43.9 [facility] Comment on above: Performed By: #### L 500.2500, L100.0100 ####[facility] [address] [place], [place], [address] WBC (Bld) [#/Vol] 6.9 10*3/uL Normal 4.4-11.0 [facility] Comment on above: Performed By: #### L 500.2500, L100.0100 ####[facility] [address] [place], [address] Emergency Department Summary on 01-08-2024 Emergency Department Summary Normal [facility] CNOVon 12-23-2023 CNOV Office Visit (UROSMN) BARBARA MILAN ([id number]) 1945 M Date Time Provider Department 12/23/23 1:00 PM MATT GARCIA During your visit today, we recorded the following information about you: Leroy Kline RN 12/23/2023 4:03 PM Signed Actual procedure/procedure scheduled: Yes Performing provider/scheduled provider: Yes Patient was roomed in: Q9- 05 Research Director offered:Patient declines Patient arrived in the room at: 1245 Patient ready for procedure: 1310 The procedure started at ( Time Only): 1326 The procedure ended at: 1328 Was the procedure delayed: Yes: Provider late: Provider off unit The patient left the procedure room at: 1350 Leroy Kline RN PRE PROCEDURE ASSESSMENT- Cysto Procedure Indication: Cystoscopy Latex Allergy: No Allergies reviewed and updated. Yes Pre-Procedure Vital Signs: BP: 141/71 Pulse: 103 Heart valve replacement: No Joint replacement: No Back Office UA obtained: no urinary catheter intact PROCEDURE PREP-Cysto Patient ID with two(2)identifiers verified by: Leroy Kline RN Pre-Procedure Antibiotics: None taken at home nor prior to procedure Patient Prep: Betadine Scrub to perineum and placement of Sterile Drape. COMPLETED Anesthetic Given:10 cc 2% Lidocaine jelly and Administered by MD - see Procedure Physician Note. Leroy Kline RN UNIVERSAL PROTOCOL / SAFETY CHECKLIST Procedure to be performed: Cystoscopy Sign in Communication: Completed Time Out: Team Confirms the Correct Patient, Correct Procedure, Correct Site and Site Marking, Correct Position (if applicable). Sign Out Discussion: Completed Leroy Kline RN POST PROCEDURE NURSE ASSESSMENT Present along with physician during procedure exam. Leroy Kline RN Instruction sheet given and reviewed and patient verbalizes understanding: yes Post Procedure Antibiotic: None Current pain intensity is 0 on a 0-10 pain scale. Leroy Kline RN AMBULATORY PATIENT EDUCATION THE FOLLOWING WAS EVALUATED Motivation To Learn: Interested Family/Significant Other Support: in waiting room Cognitive Ability: Alert/Oriented Method of Instruction: Individual instruction Written instruction/Handouts Verbal instruction The Following Influencing Factors Were Barriers To This Education Session: Emotional Factors: Anxious The Following Physical Limitations Were Barriers To This Education Session: Sensory Deficit Sight: Corrective lenses Instruction Provided To: Patient Podiatric Aide Present: not applicable Discipline: Nursing Learning Topic: SURVIVAL SKILLS: Complication Prevention Symptom Management Patient Evaluation: Verbalizes understanding: Yes Supplemental Material Given: Written Material Instructed By Leroy Kline RN In Department Urology . Matt Garcia MD 12/23/2023 5:13 PM Signed PHYSICIAN'S NOTE: Procedure: Cystoscopy Epic notes reviewed: yes Mr. 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 Indication: hematuria, radiation cystitis, bladder neck contracture Informed consent obtained yes. Discussed RBAPC. TECHNIQUE: The procedure was fully explained to the patient, risks were reviewed. The patient was placed in the supine position. The genitalia were prepped with betadine, and the urethra was anesthetized with viscous 2% lidocaine. The flexible cystoscope was introduced into the urethra and advanced under direct vision with findings as outlined below. At the conclusion of the procedure, the cystoscope was withdrawn. FINDINGS 20F worthy was removed immediately prior to cystoscopy Urethra: normal until a 3cm stenosis just proximal to the external sphincter Prostate: surgically absent Bladder: small capacity, radiation cystitis, bullous edema from catheter Ureteral orifices orthotopic 20F worthy replaced at end of procedure COMPLICATIONS: None RECOMMENDATIONS: Discussed findings with patient. POST PROCEDURE Condition: satisfactory Plan: Proceed with hyperbaric oxygen as scheduled Will arrange for cysto in 2 months Needs cath exchange in 1 month After next cysto will discuss plan for BNC - will need urethral rest at some point He is motivated to get rid of bleeding and catheter, would be happy to be back in depends MD James Borden Jamie, RN 12/23/2023 4:03 PM Signed UNIVERSAL PROTOCOL / SAFETY CHECKLIST Procedure to be Performed: Cystoscopy Sign In: A Moment of CARE was completed. Personnel directly involved with the procedure wore the appropriate PPE (Personal Protective Equipment). No special equipment needed. Patient/Surrogate Stated/Verified: PATIENT VERIFIED(optional for EMERGENT procedures): Patient name, Date of , Relevant allergies, and The intended procedure Time Out Communica (more content not included)... Normal [facility] 12 Lead EKGon 12-22-2023 12 Lead EKG Normal [facility] CBC W/Diff, Automatedon - Absolute Lymph 0.75 X10 3/uL Low 0.83-4.51 [facility] Comment on above: Performed By: #### L 100.0100, L503.0105 ####[facility] [address] [place], [address] Absolute Neut 5.4 X10 3/uL Normal 2.0-7.7 [facility] Comment on above: Performed By: #### L 100.0100, L503.0105 ####[facility] [address] [place], [address] Basophils/100 WBC (Bld) 0.3 % Normal 0-1 [facility] Comment on above: Performed By: #### L 100.0100, L503.0105 ####[facility] [address] [place], [address] Eosinophils/100 WBC (Bld) 2.9 % Normal 0-5 [facility] Comment on above: Performed By: #### L 100.0100, L503.0105 ####[facility] [address] [place], [address] Erythrocyte distribution width (RBC) [Ratio] 12.8 % Normal 11.6-14.6 [facility] Comment on above: Performed By: #### L 100.0100, L503.0105 ####[facility] [address] [place], [address] Hematocrit (Bld) [Volume fraction] 36.2 % Low 40-54 [facility] Comment on above: Performed By: #### L 100.0100, L503.0105 ####[facility] [address] [place], [address] Hemoglobin (Bld) [Mass/Vol] 11.9 g/dL Low 13.0-16.5 [facility] Comment on above: Performed By: #### L 100.0100, L503.0105 ####[facility] [address] [place], [address] IG% 0.800 Normal 0.0-0.9 [facility] Comment on above: Result Comment: IG% - Immature Granulocytes (promyelocytes, myelocytes andmetamyelocytes) > 1% indicates that a LEFT SHIFT is Present. Performed By: #### L 100.0100, L503.0105 ####[facility] [address] [place], [address] Lymphocytes/100 WBC (Bld) 10.3 % Low 19-41 [facility] Comment on above: Performed By: #### L 100.0100, L503.0105 ####[facility] [address] [place], [address] MCH (RBC) [Entitic mass] 29.6 pg Normal 27.0-32.0 [facility] Comment on above: Performed By: #### L 100.0100, L503.0105 ####[facility] [address] [place], [address] MCHC (RBC) [Mass/Vol] 32.9 g/dL Normal 32-36 [facility] Comment on above: Performed By: #### L 100.0100, L503.0105 ####[facility] [address] [place], [address] MCV (RBC) [Entitic vol] 90.0 fL Normal 80-94 [facility] Comment on above: Performed By: #### L 100.0100, L503.0105 ####[facility] [address] [place], [address] Monocytes/100 WBC (Bld) 10.6 % High 0-10 [facility] Comment on above: Performed By: #### L 100.0100, L503.0105 ####[facility] [address] [place], [address] Neutrophils/100 WBC (Bld) 75.1 % High 47-70 [facility] Comment on above: Performed By: #### L 100.0100, L503.0105 ####[facility] [address] [place], [address] Nucleated RBC (Bld) [#/Vol] 0 10*3/uL Normal 0-5 [facility] Comment on above: Performed By: #### L 100.0100, L503.0105 ####[facility] [address] [place], [address] Platelet mean volume (Bld) [Entitic vol] 10.3 fL Normal 6.2-12.0 [facility] Comment on above: Performed By: #### L 100.0100, L503.0105 ####[facility] [address] [place], [address] Platelets (Bld) [#/Vol] 360 10*3/uL Normal 150-450 [facility] Comment on above: Performed By: #### L 100.0100, L503.0105 ####[facility] [address] [place], [address] RBC (Bld) [#/Vol] 4.02 10*6/uL Low 4.6-6.2 [facility] Comment on above: Performed By: #### L 100.0100, L503.0105 ####[facility] [address] [place], [address] RDW SD 42.3 fl Normal 35.1-43.9 [facility] Comment on above: Performed By: #### L 100.0100, L503.0105 ####[facility] [address] [place], [address] WBC (Bld) [#/Vol] 7.3 10*3/uL Normal 4.4-11.0 [facility] Comment on above: Performed By: #### L 100.0100, L503.0105 ####[facility] [address] [place], [address] Chest PA and Lateralon 12-20 Chest PA and Lateral Normal [facility] Consult on 12-21-2023 [facility] Consult Normal [facility] Vitamin B12on 12-21-2023 Cobalamin (Vitamin B12) [Mass/Vol] 953 pg/mL High 211-911 [facility] Comment on above: Performed By: #### L 100.0100, L503.0105 ####[facility] [address] [place], [address] CNOVon 12-16-2023 CNOV Office Visit (UROLMN) BARBARA MILAN ([id number]) 1945 Date Time Provider Department 12/16/23 8:00 AM MATT GARCIA During your visit today, we recorded the following information about you: Pulse Blood pressure Weight 100/minute 121/75 84.4 kg Matt Garcia MD 12/16/2023 9:10 AM Signed [facility] UROLOGY NEW PATIENT CLINIC NOTE SERVICE DATE: 12/16/2023 NAME: Barbara Milan REFERRED BY: No referring provider defined for this encounter. CHIEF COMPLAINT Blood in urine, bladder neck scar tissue HISTORY OF PRESENT ILLNESS Mr. 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 Bladder with erythematous, friable, bleeding mucosa over the bladder neck area. Cystogram negative. Small capacity Has had additional clot evacs (two since then) and bladder neck incisions Had laser BNI November 13 2023 Was able to void on his own for 54 hours Had a 16F placed for retention No difficulty with this placement This clotted with blood Had a 20F placed which is still in now Multiple ER visits in [place] for hematuria, retention CKD Cr 1.3 (last Feb 2023) No recent upper tract imaging On Lupron Before this 3 depends a day Less wet at night but still wears a depends Not horribly bothered by this - would prefer incontinence to having a catheter No pelvic pain, no difficulty walking No fever, chills No UTI PMH: otherwise healthy PSH: RALP Here with his [place] Daughter in law, Melinda (RN) on speaker phone PAST MEDICAL HISTORY PAST MEDICAL HISTORY Diagnosis Date Benign neoplasm of colon Diverticulosis of colon (without mention of hemorrhage) Elevated prostate specific antigen (PSA) Essential hypertension, benign Internal hemorrhoids without mention of complication Osteoarthrosis, unspecified whether generalized or localized, unspecified site LEFT KNEE Prostate cancer (HCC) Snoring PAST SURGICAL HISTORY PAST SURGICAL HISTORY Procedure Laterality Date ARTHRP KNE CONDYLEANDPLATU MEDIALANDLAT COMPARTMENTS Left 02/2013 Knee replacement, total COLONOSCOPY FLX DX W/COLLJ SPEC WHEN PFRMD 11/21/15 Colonoscopy COLONOSCOPY W/BIOPSY SINGLE/MULTIPLE 10/03/06 PROSTATE BIOPSY 09/11 Dr Figueredo ROBOTIC SURGERY PROCEDURE 09/01/2011 prostatectomy. TONSILLECTOMY AND ADENOIDECTOMY FAMILY HISTORY FAMILY HISTORY Problem Relation Age of Onset Hypertension Mother Stroke Father SOCIAL HISTORY Social History Tobacco Use Smoking status: Never Smokeless tobacco: Never Substance Use Topics Alcohol use: No Drug use: No MEDICATIONS Current Outpatient Medications Medication Sig terazosin (HYTRIN) 5 mg capsule Take 1 capsule by mouth every afternoon. furosemide (LASIX) 20 mg tablet Take 20 mg by mouth every morning. amLODIPine (NORVASC) 10 mg tablet Take 1 tablet by mouth once daily. lisinopril (ZESTRIL, PRINIVIL) 40 mg tablet Take 1 tablet by mouth twice daily. terazosin (HYTRIN) 2 mg capsule Take 1 capsule by mouth daily at bedtime. leuprolide (LUPRON DEPOT, 4 MONTH,) 30 mg injection Inject 30 mg intramuscularly every 4 months. (Patient not taking: Reported on 12/16/2023) leuprolide (LUPRON DEPOT, 4 MONTH,) 30 mg injection Inject 30 mg intramuscularly every 4 months. (Patient not taking: Reported on 12/16/2023) leuprolide (LUPRON DEPOT, 4 MONTH,) 30 mg injection Inject 30 mg intramuscularly every 4 months. (Patient not taking: Reported on 12/16/2023) mv with cyf-LN-hyegprqe-gink go (ONE-A-DAY MEN'S 50+ ADVANTAGE) 400-300-120 mcg-mcg-mg tab Take 1 tablet by mouth once daily. ASPIRIN 81 MG ORAL TAB Take one (1) tablet daily . (Patient not taking: Reported on 12/16/2023) No current facility-administere d medications for this visit. CURRENT ALLERGIES Allergies As of Date: 12/16/2023 Allergen Noted Reaction ATENOLOL 12/22/2004 Unknown HYDROCHLOROTHIAZIDE 12/22/2004 Unknown INDOCIN [INDOMETHACIN SODIUM] 07/28/2012 GI Upset LOSARTAN POTASSIUM 08/19/2014 Hives SULFA (SULFONAMIDE ANTIBIOTICS) 12/22/2004 Hives Fully Assessed 12/16/2023 OBJECTIVE PHYSICAL EXAM: 12/16/23 08 BP: 121/75 BP Site: Left Arm BP Position: Sitting BP Cuff Size: Regular Adult Pulse: 100 Weight: 84.4 kg (186 lb 1.1 oz) Body mass index is 26.7 kg/m?. 12/16/23 0807 BP: 121/75 BP Site: Left Arm BP Position: Sitting BP Cuff Size: Regular Adult Pulse: 100 Weight: 84.4 kg (186 lb 1.1 oz) General: pleasant Psych: euthymic, NAD Neuro: AANDOx3. CV: normal perfusion, hemodynamically stable Resp: normal effort Abdomen: soft, NT : 20F latex catheter irrigated with retu (more content not included)... Normal [facility] Emergency Department Summary on 12-06-2023 Emergency Department Summary Normal [facility] Urine Cultureon 12-05-2023 URC Normal [facility] Comment on above: Performed By: #### M 100.2200, [id number] ####[facility] [address] [place], [address] Emergency Department Summary on 12-02-2023 Emergency Department Summary Normal [facility] Urinalysis, Completeon 12-01 BACTERIA 1+ /hpf Normal None Seen [facility] Comment on above: Order Comment: LIV TER SPECIMEN Performed By: #### M 100.2200, [id number] ####[facility] [address] [place], [address] EPI,SQUAMOUS 0-5 SEEN Normal 0-5 [facility] Comment on above: Order Comment: LIV TER SPECIMEN Performed By: #### M 100.2200, [id number] ####[facility] [address] [place], [address] RBC > 100 SEEN Normal 0-5 [facility] Comment on above: Order Comment: LIV TER SPECIMEN Performed By: #### M 100.2200, [id number] ####[facility] [address] [place], [address] WBC 5-10 SEEN Normal 0-5 [facility] Comment on above: Order Comment: LIV TER SPECIMEN Performed By: #### M 100.2200, [id number] ####[facility] [address] [place], [address] Mucus Ql (Urine sed) 0 SEEN Normal [facility] Comment on above: Order Comment: LIV TER SPECIMEN Performed By: #### M 100.2200, [id number] ####[facility] [address] [place], [address] Emergency Department Summary on 12-01-2023 Emergency Department Summary Normal [facility] Basophil percentageOrdered B y: Columba Decker on 10-15-2023 Basophil percentage 0 SEEN /hpf 0-5 [facility] Bilirubin Test strip Ql (U)O rdered By: Columba Decker on 10-15-2023 Bilirubin Ql (U) Negative Negative [facility] Ketones Test strip Ql (U)Ord ered By: Columba Decker on 10-15-2023 Ketones Ql (U) Negative Negative [facility] Mucus LM Ql (Urine sed)Order ed By: Columba Decker on 10-15-2023 Mucus Ql (Urine sed) 0 SEEN /hpf [facility] Nitrite Test strip Ql (U)Ord ered By: Columba Decker on 10-15-2023 Nitrite Ql (U) Negative Negative [facility] No Panel InformationOrdered By: Columba Decker on 10-15-2023 Urine RBC 10-25 SEEN /hpf 0-5 [facility] Protein Test strip Ql (U)Ord ered By: Columba Decker on 10-15-2023 Protein Ql (U) Negative Negative [facility] Squamous epithelial cells de tection in urine sediment by light microscopyOrdered By: Columba Decker on 10-15-2023 Epithelial cells.squamous LM Ql (Urine sed) 0 SEEN /hpf 0-5 [facility] Urine blood detectionOrdered By: Columba Decker on 10-15-2023 RBC Ql (U) 250 /ul Negative [facility] Urine clarityOrdered By: Chana Decker on 10-15-2023 Clarity (U) Clear Clear [facility] Urine color determinationOrd ered By: Columba Decker on 10-15-2023 Color (U) Yellow Yellow [facility] Urine glucose detectionOrder ed By: Columba Decker on 10-15-2023 Glucose Ql (U) Normal mg/dl Normal [facility] Urine leukocyte esterase det ection by dipstickOrdered By: Columba Decker on 10-15-2023 Leukocyte esterase Test strip Ql (U) 25 /ul Negative [facility] Urine pHOrdered By: Columba Decker on 10-15-2023 pH (U) 6.0 [pH] 5.0 - 8.0 [facility] Urine sediment bacteria coun t by microscopy (number/high power field)Ordered By: Columba Decker on 10-15-2023 Bacteria LM.HPF (Urine sed) [#/Area] 0 /[HPF] None Seen [facility] Urine specific gravity measu rementOrdered By: Columba Decker on 10-15-2023 Specific gravity (U) [Rel density] 1.015 1.002-1.030 [facility] Urine urobilinogen measureme ntOrdered By: Columba Decker on 10-15-2023 Urobilinogen Ql (U) Normal mg/dl Normal [facility] Basophil percentageOrdered B y: Zhao Gilliland on 06-27-2023 Basophil percentage < 0.01 ng/mL 0.0-4.0 [facility] Comment on above: This test was perfor med using the TPSA assay method for theDimension chemistry system. Values obtained with differentassay methods cannot be used interchangably.When changing PSA assays in the course of monitoring apatient, additional sequential testing should be carriedout to confirm baseline values. Absolute lymphocyte countOrd ered By: Eduardo Han on 04-04-2023 Lymphocytes Auto (Unsp spec) [#/Vol] 0.71 10*3/uL 0.83-4.51 [facility] Basophil percentageOrdered B y: Eduardo Han on 04-04-2023 Basophils/100 WBC (Bld) 0.6 % 0-1 [facility] Chloride [Moles/Vol] 108 mmol/L 98-107 [facility] Eosinophils/100 WBC (Bld) 5.2 % 0-5 [facility] Glucose [Mass/Vol] 159 mg/dL 74-106 [facility] Comment on above: Fasting Glucose resu lt greater than or equal to 126 mg/dL suggests DIABETES MELLITUS per A.D.A. criteria. Neutrophils (Bld) [#/Vol] 4.9 10*3/uL 2.0-7.7 [facility] Neutrophils/100 WBC (Bld) 73.4 % 47-70 [facility] Potassium [Moles/Vol] 4.4 mmol/L 3.5-5.1 [facility] Sodium [Moles/Vol] 135 mmol/L 136-145 [facility] WBC (Bld) [#/Vol] 6.6 10*3/uL 4.4-11.0 [facility] Blood erythrocytes count (nu mber/volume)Ordered By: Eduardo Han on 04-04-2023 RBC (Bld) [#/Vol] 3.88 10*6/uL 4.6-6.2 [facility] Blood hemoglobin measurement (mass/volume)Ordered By: Eduardo Han on 04-04-2023 Hemoglobin (Bld) [Mass/Vol] 11.1 g/dL 13.0-16.5 [facility] Blood lymphocytes/100 leukoc ytesOrdered By: Eduardo Han on 04-04-2023 Lymphocytes/100 WBC (Bld) 10.8 % 19-41 [facility] Blood monocytes/100 leukocyt esOrdered By: Eduardo Han on 04-04-2023 Monocytes/100 WBC (Bld) 9.4 % 0-10 [facility] Blood platelet mean volumeOr dered By: Eduardo Han on 04-04-2023 Platelet mean volume (Bld) [Entitic vol] 10.9 fL 6.2-12.0 [facility] Determination of erythrocyte mean corpuscular volume (MCV)Ordered By: Eduardo Han on 04-04-2023 MCV (RBC) [Entitic vol] 93.0 fL 80-94 [facility] Hematocrit Auto (Bld) [Volum e fraction]Ordered By: Eduardo Han on 04-04-2023 Hematocrit (Bld) [Volume fraction] 36.1 % 40-54 [facility] Iron measurement (mass/mass) Ordered By: Eduardo Han on 04-04-2023 Iron (Unsp spec) [Mass/Mass] 86 ug/dL 65-175 [facility] Laboratory - Chemistry and C hemistry - challengeOrdered By: Eduardo Han on 04-04-2023 CO2 [Moles/Vol] 23.0 mmol/L 21.0-32.0 [facility] Urea nitrogen/Creatinine [Mass ratio] 18.4 mg/mg 10-20 [facility] - Hematology and Cell countsOrdered By: Eduardo Han on 04-04-2023 Erythrocyte distribution width (RBC) [Entitic vol] 49.9 fL 35.1-43.9 [facility] Erythrocyte distribution width (RBC) [Ratio] 14.7 % 11.6-14.6 [facility] Immature granulocytes/100 WBC (Bld) 0.600 % 0.0-0.9 [facility] Comment on above: IG% - Immature Granu locytes (promyelocytes, myelocytes and metamyelocytes) > 1% indicates that a LEFT SHIFT is Present. MCH (RBC) [Entitic mass] 28.6 pg 27.0-32.0 [facility] Nucleated RBC/100 WBC (Bld) [Ratio] 0 % 0-5 [facility] MCHC Auto (RBC) [Mass/Vol]Or dered By: Eduardo Han on 04-04-2023 MCHC (RBC) [Mass/Vol] 30.7 g/dL 32-36 [facility] No Panel InformationOrdered By: Eduardo Han on 04-04-2023 Estimated GFR (MDRD) Amer 72 mL/min >60 [facility] Comment on above: GFR Calc Estimated GFR (MDRD) Non-Af Amer 60 mL/min >60 [facility] Comment on above: Non- GFR Calc Platelets bldOrdered By: Yamila Han on 04-04-2023 Platelets (Bld) [#/Vol] 273 10*3/uL 150-450 [facility] Serum or plasma calcium janusz urement (mass/volume)Ordered By: Eduardo Han on 04-04-2023 Calcium [Mass/Vol] 8.8 mg/dL 8.5-10.1 [facility] Serum or plasma creatinine m easurement (mass/volume)Ordered By: Eduardo Han on 04-04-2023 Creatinine [Mass/Vol] 1.25 mg/dL 0.70-1.30 [facility] Comment on above: The validity of the calculated GFR & GFRAA in patients over 70 years has not been determined. Clinical correlation is essential. Serum or plasma ferritin lakeshia surement (mass/volume)Ordered By: Eduardo Han on 04-04-2023 Ferritin [Mass/Vol] 60 ng/mL 26-388 [facility] Serum or plasma urea nitroge n measurement (mass/volume)Ordered By: Eduardo Han on 04-04-2023 Urea nitrogen [Mass/Vol] 23 mg/dL 7-18 [facility] Thin prep Papanicolaou smear with manual screeningOrdered By: Eduardo Han on 04-04-2023 Thin prep Papanicolaou smear with manual screening 4 5-15 [facility] Absolute lymphocyte countOrd ered By: Mannie Chandler on 03-01-2023 Lymphocytes Auto (Unsp spec) [#/Vol] 0.74 10*3/uL 0.83-4.51 [facility] Absolute lymphocyte countOrd ered By: Eduardo Han on 03-01-2023 Lymphocytes Auto (Unsp spec) [#/Vol] 1.08 10*3/uL 0.83-4.51 [facility] Basophil percentageOrdered B y: Mannie Chandler on 03-01-2023 Basophils/100 WBC (Bld) 0.4 % 0-1 [facility] Chloride [Moles/Vol] 106 mmol/L 98-107 [facility] Eosinophils/100 WBC (Bld) 2.2 % 0-5 [facility] Glucose [Mass/Vol] 121 mg/dL 74-106 [facility] Comment on above: Fasting Glucose resu lt from 100 to 125 mg/dL suggests IMPAIRED HOMEOSTASIS per A.D.A. criteria. Neutrophils (Bld) [#/Vol] 7.6 10*3/uL 2.0-7.7 [facility] Neutrophils/100 WBC (Bld) 81.6 % 47-70 [facility] Potassium [Moles/Vol] 4.3 mmol/L 3.5-5.1 [facility] Sodium [Moles/Vol] 135 mmol/L 136-145 [facility] WBC (Bld) [#/Vol] 9.3 10*3/uL 4.4-11.0 [facility] Basophil percentageOrdered B y: Eduardo Han on 03-01-2023 Basophils/100 WBC (Bld) 0.6 % 0-1 [facility] Bilirubin [Mass/Vol] 0.20 mg/dL 0.20-1.00 [facility] Comment on above: For patients on eltr ombopag therapy, use of Dimension [place] TBIL is not recommended. Chloride [Moles/Vol] 107 mmol/L 98-107 [facility] Cholesterol [Mass/Vol] 127 mg/dL <200 [facility] Comment on above: <200 mg/dL Desirable 200-240 mg/dL Borderline >240 mg/dL High Risk Eosinophils/100 WBC (Bld) 3.2 % 0-5 [facility] Glucose [Mass/Vol] 120 mg/dL 74-106 [facility] Comment on above: Fasting Glucose resu lt from 100 to 125 mg/dL suggests IMPAIRED HOMEOSTASIS per A.D.A. criteria. Neutrophils (Bld) [#/Vol] 6.7 10*3/uL 2.0-7.7 [facility] Neutrophils/100 WBC (Bld) 75.8 % 47-70 [facility] Potassium [Moles/Vol] 4.3 mmol/L 3.5-5.1 [facility] Protein [Mass/Vol] 7.5 g/dL 6.4-8.2 [facility] Sodium [Moles/Vol] 138 mmol/L 136-145 [facility] Triglyceride [Mass/Vol] 104 mg/dL <199 [facility] Comment on above: The drugs N-Acetylcy steine and Metamizole may falsely depress this assay.Serum Triglycerides Reference Interval Normal <150 mg/dL Borderline high 150 - 199 mg/dL High 200 - 499 mg/dL Very High > or = 500 mg/dL WBC (Bld) [#/Vol] 8.8 10*3/uL 4.4-11.0 [facility] Blood erythrocytes count (nu mber/volume)Ordered By: Mannie Chandler on 03-01-2023 RBC (Bld) [#/Vol] 3.04 10*6/uL 4.6-6.2 [facility] Blood erythrocytes count (nu mber/volume)Ordered By: Eduardo Han on 03-01-2023 RBC (Bld) [#/Vol] 3.20 10*6/uL 4.6-6.2 [facility] Blood hemoglobin measurement (mass/volume)Ordered By: Mannie Chandler on 03-01-2023 Hemoglobin (Bld) [Mass/Vol] 8.9 g/dL 13.0-16.5 [facility] Blood hemoglobin measurement (mass/volume)Ordered By: Eduardo Han on 03-01-2023 Hemoglobin (Bld) [Mass/Vol] 9.4 g/dL 13.0-16.5 [facility] Blood lymphocytes/100 leukoc ytesOrdered By: Mannie Chandler on 03-01-2023 Lymphocytes/100 WBC (Bld) 8.0 % [facility] Blood lymphocytes/100 leukoc ytesOrdered By: Eduardo Han on 03-01-2023 Lymphocytes/100 WBC (Bld) 12.2 % [facility] Blood monocytes/100 leukocyt esOrdered By: Mannie Chandler on 03-01-2023 Monocytes/100 WBC (Bld) 6.9 % 0-10 [facility] Blood monocytes/100 leukocyt esOrdered By: Eduardo Han on 03-01-2023 Monocytes/100 WBC (Bld) 7.5 % 0-10 [facility] Blood platelet mean volumeOr dered By: Mannie Chandler on 03-01-2023 Platelet mean volume (Bld) [Entitic vol] 10.0 fL 6.2-12.0 [facility] Blood platelet mean volumeOr dered By: Eduardo Han on 03-01-2023 Platelet mean volume (Bld) [Entitic vol] 10.0 fL 6.2-12.0 [facility] Determination of erythrocyte mean corpuscular volume (MCV)Ordered By: Mannie Chandler on 03-01-2023 MCV (RBC) [Entitic vol] 89.1 fL 80-94 [facility] Determination of erythrocyte mean corpuscular volume (MCV)Ordered By: Eduardo Han on 03-01-2023 MCV (RBC) [Entitic vol] 90.9 fL 80-94 [facility] Hematocrit Auto (Bld) [Volum e fraction]Ordered By: Mannei Chandler on 03-01-2023 Hematocrit (Bld) [Volume fraction] 27.1 % 40-54 [facility] Hematocrit Auto (Bld) [Volum e fraction]Ordered By: Eduardo Han on 03-01-2023 Hematocrit (Bld) [Volume fraction] 29.1 % 40-54 [facility] Hemoglobin in reticulocytes (mass per reticulocyte)Ordered By: Eduardo Han on 03-01-2023 Hemoglobin (Reticulocytes) [Entitic mass] 28.5 pg 30-35 [facility] Iron measurement (mass/mass) Ordered By: Eduardo Han on 03-01-2023 Iron (Unsp spec) [Mass/Mass] 21 ug/dL 65-175 [facility] Laboratory - Chemistry and C hemistry - challengeOrdered By: Mannie Chandler on 03-01-2023 CO2 [Moles/Vol] 23.0 mmol/L 21.0-32.0 [facility] Natriuretic peptide B (Bld) [Mass/Vol] 23.5 pg/mL 0-100 [facility] Urea nitrogen/Creatinine [Mass ratio] 18.2 mg/mg 10-20 [facility] - Chemistry and C hemistry - challengeOrdered By: Eduardo Han on 03-01-2023 ALP [Catalytic activity/Vol] 85 U/L 45-117 [facility] ALT [Catalytic activity/Vol] 24 U/L 16-61 [facility] CO2 [Moles/Vol] 24.0 mmol/L 21.0-32.0 [facility] Globulin (S) [Mass/Vol] 4.5 g/dL 2.2-4.2 [facility] Urea nitrogen/Creatinine [Mass ratio] 18.4 mg/mg 10-20 [facility] - Hematology and Cell countsOrdered By: Mannie Chandler on 03-01-2023 Erythrocyte distribution width (RBC) [Entitic vol] 41.0 fL 35.1-43.9 [facility] Erythrocyte distribution width (RBC) [Ratio] 12.6 % 11.6-14.6 [facility] Immature granulocytes/100 WBC (Bld) 0.900 % 0.0-0.9 [facility] Comment on above: IG% - Immature Granu locytes (promyelocytes, myelocytes and metamyelocytes) > 1% indicates that a LEFT SHIFT is Present. MCH (RBC) [Entitic mass] 29.3 pg 27.0-32.0 [facility] Nucleated RBC/100 WBC (Bld) [Ratio] 0 % 0-5 [facility] - Hematology and Cell countsOrdered By: Eduardo Han on 03-01-2023 Erythrocyte distribution width (RBC) [Entitic vol] 42.4 fL 35.1-43.9 [facility] Erythrocyte distribution width (RBC) [Ratio] 12.7 % 11.6-14.6 [facility] Immature granulocytes/100 WBC (Bld) 0.700 % 0.0-0.9 [facility] Comment on above: IG% - Immature Granu locytes (promyelocytes, myelocytes and metamyelocytes) > 1% indicates that a LEFT SHIFT is Present. MCH (RBC) [Entitic mass] 29.4 pg 27.0-32.0 [facility] Nucleated RBC/100 WBC (Bld) [Ratio] 0 % 0- [facility] MCHC Auto (RBC) [Mass/Vol]Or dered By: Mannie Chandler on 03-01-2023 MCHC (RBC) [Mass/Vol] 32.8 g/dL [facility] MCHC Auto (RBC) [Mass/Vol]Or dered By: Eduardo Han on 03-01-2023 MCHC (RBC) [Mass/Vol] 32.3 g/dL 32-36 [facility] No Panel InformationOrdered By: Mannie Chandler on 03-01-2023 Troponin I High Sensitivity 13 pg/mL 3.0-78.0 [facility] Comment on above: Please Note: [place] t Units and Gender Specific Reference Ranges. For more information see Policy Stat Procedure [place] High Sensitivity Troponin (TNIH) and attachments. Estimated Creatinine Clearance Calc 43.13 ml/min [facility] Estimated GFR (MDRD) Amer 60 mL/min >60 [facility] Comment on above: GFR Calc Estimated GFR (MDRD) Non-Af Amer 49 mL/min >60 [facility] Comment on above: Non- GFR Calc No Panel InformationOrdered By: Eduardo Han on 03-01-2023 Estimated GFR (MDRD) Amer 63 mL/min >60 [facility] Comment on above: GFR Calc Estimated GFR (MDRD) Non-Af Amer 52 mL/min >60 [facility] Comment on above: Non- GFR Calc Immature Reticulocyte Fraction 14.40 % 3.00-15.90 [facility] Reticulocyte Count 2.08 % 0.5-1.5 [facility] Total Iron Binding Capacity 266 ug/dL 250-450 [facility] Platelets bldOrdered By: Malissa Chandler on 03-01-2023 Platelets (Bld) [#/Vol] 414 10*3/uL 150-450 [facility] Platelets bldOrdered By: Yamila Han on 03-01-2023 Platelets (Bld) [#/Vol] 442 10*3/uL 150-450 [facility] Serum or plasma albumin janusz urement (mass/volume)Ordered By: Eduardo Han on 03-01-2023 Albumin [Mass/Vol] 3.0 g/dL 3.2-5.0 [facility] Serum or plasma albumin/glob ulin mass ratioOrdered By: Eduardo Han on 03-01-2023 Albumin/Globulin [Mass ratio] 0.7 {ratio} 0.9-2.4 [facility] Serum or plasma calcium janusz urement (mass/volume)Ordered By: Mannie Chandler on 03-01-2023 Calcium [Mass/Vol] 8.3 mg/dL 8.5-10.1 [facility] Serum or plasma calcium janusz urement (mass/volume)Ordered By: Eduardo Han on 03-01-2023 Calcium [Mass/Vol] 8.6 mg/dL 8.5-10.1 [facility] Serum or plasma cholesterol in HDL measurement (mass/volume)Ordered By: Eduardo Han on 03-01-2023 Cholesterol in HDL [Mass/Vol] 38 mg/dL >40 [facility] Comment on above: The drugs N-Acetylcy steine and Metamizole may falsely depress this assay. Reference Range HDL <40 mg/dL Low HDL Cholesterol HDL >or= 60 mg/dL High HDL Cholesterol Serum or plasma cholesterol in VLDL measurement (mass/volume)Ordered By: Eduardo Han on 03-01-2023 Cholesterol in VLDL [Mass/Vol] 21 mg/dL 5-40 [facility] Serum or plasma creatinine m easurement (mass/volume)Ordered By: Mannie Chandler on 03-01-2023 Creatinine [Mass/Vol] 1.48 mg/dL 0.70-1.30 [facility] Comment on above: The validity of the calculated GFR & GFRAA in patients over 70 years has not been determined. Clinical correlation is essential. Serum or plasma creatinine m easurement (mass/volume)Ordered By: Eduardo Han on 03-01-2023 Creatinine [Mass/Vol] 1.41 mg/dL 0.70-1.30 [facility] Comment on above: The validity of the calculated GFR & GFRAA in patients over 70 years has not been determined. Clinical correlation is essential. Serum or plasma ferritin lakeshia surement (mass/volume)Ordered By: Eduardo Han on 03-01-2023 Ferritin [Mass/Vol] 148 ng/mL 26-388 [facility] Serum or plasma low density lipoprotein (LDL) cholesterol measurement (mass/volume)Ordered By: Eduardo Han on 03-01-2023 Cholesterol in LDL [Mass/Vol] 68 mg/dL 0-130 [facility] Serum or plasma urea nitroge n measurement (mass/volume)Ordered By: Mannie Chandler on 03-01-2023 Urea nitrogen [Mass/Vol] 27 mg/dL 7-18 [facility] Serum or plasma urea nitroge n measurement (mass/volume)Ordered By: Eduardo Han on 03-01-2023 Urea nitrogen [Mass/Vol] 26 mg/dL 12-21 [facility] Thin prep Papanicolaou smear with manual screeningOrdered By: Mannie Chandler on 03-01-2023 Thin prep Papanicolaou smear with manual screening 6 - [facility] Thin prep Papanicolaou smear with manual screeningOrdered By: Eduardo Han on 03-01-2023 Thin prep Papanicolaou smear with manual screening 17 U/L 15 [facility] Thin prep Papanicolaou smear with manual screening 7 - [facility] CNPNon 02-21-2023 CNPN Telephone (UROLAE) BARBARA MILAN ([id number]) 1945 M Date Time Provider Department 02/21/23 MAX GREWAL During your visit today, we recorded the following information about you: Faith Keene, [place] 02/21/2023 8:[address] Grewal, You saw this patient in the hospital on 02.07.23. called in regards to the wording in his summary. Per patient the patient does not have a prostate and is not sure why the note says prostate is small and fibrotic. would like this to be corrected. I advised that I would send for your review and to addend if necessary based on what was seen. OR FINDINGS: Urethra with several false passages. Prostate small and fibrotic appearing. Bladder with erythematous, friable, bleeding mucosa over the bladder neck area. No papillary tumors. Posterior wall 2 cm mucosal defect that appeared like it was due to a prior Worthy insert. Bleeding sites fulgurated. Biopsy taken of bladder neck mucosa. Cystogram shows bladder wall intact with no extravasation. Small capacity bladder. Worthy placed over a wire at conclusion of procedure. Position in the bladder confirmed. Hemostasis very good. Faith Keene RN Allergies As of Date: 02/21/2023 Noted Allergy Reaction ATENOLOL 12/22/2004 16 - Unknown HYDROCHLOROTHIAZIDE 12/22/2004 16 - Unknown INDOCIN (INDOMETHACIN SODIUM) 07/28/2012 8 - GI Upset LOSARTAN POTASSIUM 08/19/2014 4 - Hives SULFA (SULFONAMIDE ANTIBIOTICS) 12/22/2004 4 - Hives Date Reviewed: 02/12/2023 Reviewed by: Freddie Casey RN - Fully Assessed Reason for Visit: Patient Question [5907] Prescriptions as of 02/21/2023 - terazosin (HYTRIN) 2 mg capsule Take 1 capsule by mouth daily at bedtime. - amLODIPine (NORVASC) 10 mg tablet Take 1 tablet by mouth once daily. - lisinopril (ZESTRIL, PRINIVIL) 40 mg tablet Take 1 tablet by mouth twice daily. - leuprolide (LUPRON DEPOT, 4 MONTH,) 30 mg injection Inject 30 mg intramuscularly every 4 months. - leuprolide (LUPRON DEPOT, 4 MONTH,) 30 mg injection Inject 30 mg intramuscularly every 4 months. - leuprolide (LUPRON DEPOT, 4 MONTH,) 30 mg injection Inject 30 mg intramuscularly every 4 months. - mv with [id number]-djfdryqb-gink go (ONE-A-DAY MEN'S 50+ ADVANTAGE) 400-300-120 mcg-mcg-mg tab Take 1 tablet by mouth once daily. - ASPIRIN 81 MG ORAL TAB Take one (1) tablet daily . Problem List As Of Date 02/21/2023 Noted Resolved BENIGN HYPERTENSION [I10] OSTEOARTHROS NOS-UNSPEC [M19.90] OVERWEIGHT [E66.3] 02/26/2006 Elevated prostate specific antigen (PSA) [R97.2*05/09/2006 08/10/2011 BENIGN NEOPLASM LG BOWEL [D12.6] DIVERTICULOSIS OF COLON W/O BLEED [K57.30] INT HEMORRHOID W/O COMPL [K64.8] Hypertrophy of prostate with urinary obstructio* 7 11/24/2011 SEBORRHEIC KERATOSIS NOS [L82.1] 10/29/2008 CHR SOLAR SKIN DAMAGE NOS [L57.8] 10/29/2008 Actinic Keratosis [L57.0] 05/19/2009 Rosacea [L71.9] 05/19/2009 Melanocytic Nevus of Trunk [D22.5] 05/19/2009 Solar Lentigo [L81.4] 05/19/2009 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 Chloride [Moles/Vol] 109 mmol/L 98-107 [facility] Eosinophils/100 WBC (Bld) 4.0 % 0-5 [facility] Glucose [Mass/Vol] 118 mg/dL 74-106 [facility] Comment on above: Fasting Glucose resu lt from 100 to 125 mg/dL suggests IMPAIRED HOMEOSTASIS per A.D.A. criteria. Neutrophils (Bld) [#/Vol] 5.2 10*3/uL 2.0-7.7 [facility] Neutrophils/100 WBC (Bld) 72.6 % 47-70 [facility] Potassium [Moles/Vol] 3.8 mmol/L 3.5-5.1 [facility] Sodium [Moles/Vol] 137 mmol/L 136-145 [facility] WBC (Bld) [#/Vol] 7.2 10*3/uL 4.4-11.0 [facility] Blood erythrocytes count (nu mber/volume)Ordered By: Temi Macias on 02-19-2023 RBC (Bld) [#/Vol] 2.78 10*6/uL 4.6-6.2 [facility] Blood hemoglobin measurement (mass/volume)Ordered By: Temi Macias on 02-19-2023 Hemoglobin (Bld) [Mass/Vol] 8.3 g/dL 13.0-16.5 [facility] Blood lymphocytes/100 leukoc ytesOrdered By: Temi Macias on 02-19-2023 Lymphocytes/100 WBC (Bld) 8.8 % 19-41 [facility] Blood monocytes/100 leukocyt esOrdered By: Temi Macias on 02-19-2023 Monocytes/100 WBC (Bld) 11.1 % 0-10 [facility] Blood platelet mean volumeOr dered By: Temi Macias on 02-19-2023 Platelet mean volume (Bld) [Entitic vol] 9.8 fL 6.2-12.0 [facility] Determination of erythrocyte mean corpuscular volume (MCV)Ordered By: Temi Macias on 02-19-2023 MCV (RBC) [Entitic vol] 92.4 fL 80-94 [facility] Hematocrit Auto (Bld) [Volum e fraction]Ordered By: Temi Macias on 02-19-2023 Hematocrit (Bld) [Volume fraction] 25.7 % 40-54 [facility] - Chemistry and C hemistry - challengeOrdered By: Temi Macias on 02-19-2023 CO2 [Moles/Vol] 22.0 mmol/L 21.0-32.0 [facility] Urea nitrogen/Creatinine [Mass ratio] 19.3 mg/mg 10-20 [facility] - Hematology and Cell countsOrdered By: Temi Macias on 02-19-2023 Erythrocyte distribution width (RBC) [Entitic vol] 42.6 fL 35.1-43.9 [facility] Erythrocyte distribution width (RBC) [Ratio] 12.4 % 11.6-14.6 [facility] Immature granulocytes/100 WBC (Bld) 2.800 % 0.0-0.9 [facility] Comment on above: IG% - Immature Granu locytes (promyelocytes, myelocytes and metamyelocytes) > 1% indicates that a LEFT SHIFT is Present. MCH (RBC) [Entitic mass] 29.9 pg 27.0-32.0 [facility] Nucleated RBC/100 WBC (Bld) [Ratio] 0.3 % 0-5 [facility] MCHC Auto (RBC) [Mass/Vol]Or dered By: Temi Macias on 02-19-2023 MCHC (RBC) [Mass/Vol] 32.3 g/dL 32-36 [facility] No Panel InformationOrdered By: Temi Macias on 02-19-2023 Estimated Creatinine Clearance Calc 55.99 ml/min [facility] Estimated GFR (MDRD) Amer 81 mL/min >60 [facility] Comment on above: GFR Calc Estimated GFR (MDRD) Non-Af Amer 67 mL/min >60 [facility] Comment on above: Non- GFR Calc Platelets bldOrdered By: Diana Macias on 02-19-2023 Platelets (Bld) [#/Vol] 435 10*3/uL 150-450 [facility] Serum or plasma calcium janusz urement (mass/volume)Ordered By: Temi Macias on 02-19-2023 Calcium [Mass/Vol] 8.0 mg/dL 8.5-10.1 [facility] Serum or plasma creatinine m easurement (mass/volume)Ordered By: Temi Maicas on 02-19-2023 Creatinine [Mass/Vol] 1.14 mg/dL 0.70-1.30 [facility] Comment on above: The validity of the calculated GFR & GFRAA in patients over 70 years has not been determined. Clinical correlation is essential. Serum or plasma urea nitroge n measurement (mass/volume)Ordered By: Temi Macias on 02-19-2023 Urea nitrogen [Mass/Vol] 22 mg/dL 7-18 [facility] Thin prep Papanicolaou smear with manual screeningOrdered By: Temi Macias on 02-19-2023 Thin prep Papanicolaou smear with manual screening 6 5-15 [facility] Basophil percentageOrdered B y: Zhao Gilliland on 02-17-2023 WBC (Bld) [#/Vol] 8.7 10*3/uL 4.4-11.0 [facility] Blood erythrocytes count (nu mber/volume)Ordered By: Zhao Gilliland on 02-17-2023 RBC (Bld) [#/Vol] 2.65 10*6/uL 4.6-6.2 [facility] Blood hemoglobin measurement (mass/volume)Ordered By: Zhao Gilliland on 02-17-2023 Hemoglobin (Bld) [Mass/Vol] 8.2 g/dL 13.0-16.5 [facility] Blood platelet mean volumeOr dered By: Zhao Gilliland on 02-17-2023 Platelet mean volume (Bld) [Entitic vol] 10.0 fL 6.2-12.0 [facility] Determination of erythrocyte mean corpuscular volume (MCV)Ordered By: Zhao Gilliland on 02-17-2023 MCV (RBC) [Entitic vol] 92.8 fL 80-94 [facility] Hematocrit Auto (Bld) [Volum e fraction]Ordered By: Zhao Gilliland on 02-17-2023 Hematocrit (Bld) [Volume fraction] 24.6 % 40-54 [facility] - Hematology and Cell countsOrdered By: Zhao Gilliland on 02-17-2023 Erythrocyte distribution width (RBC) [Entitic vol] 42.8 fL 35.1-43.9 [facility] Erythrocyte distribution width (RBC) [Ratio] 12.6 % 11.6-14.6 [facility] MCH (RBC) [Entitic mass] 30.9 pg 27.0-32.0 [facility] MCHC Auto (RBC) [Mass/Vol]Or dered By: Zhao Gilliland on 02-17-2023 MCHC (RBC) [Mass/Vol] 33.3 g/dL 32-36 [facility] Platelets bldOrdered By: Dario Gilliland on 02-17-2023 Platelets (Bld) [#/Vol] 330 10*3/uL 150-450 [facility] Absolute lymphocyte countOrd ered By: Damian Melvin on 02-14-2023 Lymphocytes Auto (Unsp spec) [#/Vol] 0.50 10*3/uL 0.83-4.51 [facility] Basophil percentageOrdered B y: Damian Melvin on 02-14-2023 Basophils/100 WBC (Bld) 0.3 % 0-1 [facility] Chloride [Moles/Vol] 107 mmol/L 98-107 [facility] Eosinophils/100 WBC (Bld) 1.4 % 0-5 [facility] Glucose [Mass/Vol] 125 mg/dL 74-106 [facility] Comment on above: Fasting Glucose resu lt from 100 to 125 mg/dL suggests IMPAIRED HOMEOSTASIS per A.D.A. criteria. Neutrophils (Bld) [#/Vol] 6.2 10*3/uL 2.0-7.7 [facility] Neutrophils/100 WBC (Bld) 83.6 % 47-70 [facility] Potassium [Moles/Vol] 4.2 mmol/L 3.5-5.1 [facility] Sodium [Moles/Vol] 139 mmol/L 136-145 [facility] WBC (Bld) [#/Vol] 7.4 10*3/uL 4.4-11.0 [facility] Basophil percentage 0 SEEN /hpf 0-5 [facility] Bilirubin Test strip Ql (U)O rdered By: Damian Melvin on 02-14-2023 Bilirubin Ql (U) Negative Negative [facility] Blood erythrocytes count (nu mber/volume)Ordered By: Damian Melvin on 02-14-2023 RBC (Bld) [#/Vol] 3.35 10*6/uL 4.6-6.2 [facility] Blood hemoglobin measurement (mass/volume)Ordered By: Damian Melvin on 02-14-2023 Hemoglobin (Bld) [Mass/Vol] 10.3 g/dL 13.0-16.5 [facility] Blood lymphocytes/100 leukoc ytesOrdered By: Damian Melvin on 02-14-2023 Lymphocytes/100 WBC (Bld) 6.8 % 19-41 [facility] Blood manual differential co mment interpretation (narrative result)Ordered By: Damian Melvin on 02-14-2023 Manual differential comment Kristian (Bld) [Interp] SCANNED [facility] Blood monocytes/100 leukocyt esOrdered By: Damian Melvin on 02-14-2023 Monocytes/100 WBC (Bld) 7.1 % 0-10 [facility] Blood platelet mean volumeOr dered By: Damian Melvin on 02-14-2023 Platelet mean volume (Bld) [Entitic vol] 10.2 fL 6.2-12.0 [facility] Determination of erythrocyte mean corpuscular volume (MCV)Ordered By: Damian Melvin on 02-14-2023 MCV (RBC) [Entitic vol] 92.5 fL 80-94 [facility] Hematocrit Auto (Bld) [Volum e fraction]Ordered By: Damian Melvin on 02-14-2023 Hematocrit (Bld) [Volume fraction] 31.0 % 40-54 [facility] Ketones Test strip Ql (U)Ord ered By: Damian Melvin on 02-14-2023 Ketones Ql (U) 5 mg/dl Negative [facility] - Chemistry and C hemistry - challengeOrdered By: Damian Melvin on 02-14-2023 CO2 [Moles/Vol] 22.0 mmol/L 21.0-32.0 [facility] Urea nitrogen/Creatinine [Mass ratio] 15.0 mg/mg 10-20 [facility] - Hematology and Cell countsOrdered By: Damian Melvin on 02-14-2023 Erythrocyte distribution width (RBC) [Entitic vol] 42.8 fL 35.1-43.9 [facility] Erythrocyte distribution width (RBC) [Ratio] 12.6 % 11.6-14.6 [facility] Immature granulocytes/100 WBC (Bld) 0.800 % 0.0-0.9 [facility] Comment on above: IG% - Immature Granu locytes (promyelocytes, myelocytes and metamyelocytes) > 1% indicates that a LEFT SHIFT is Present. MCH (RBC) [Entitic mass] 30.7 pg 27.0-32.0 [facility] Nucleated RBC/100 WBC (Bld) [Ratio] 0 % 0-5 [facility] MCHC Auto (RBC) [Mass/Vol]Or dered By: Damian Melvin on 02-14-2023 MCHC (RBC) [Mass/Vol] 33.2 g/dL 32-36 [facility] Mucus LM Ql (Urine sed)Order ed By: Damian Melvin on 02-14-2023 Mucus Ql (Urine sed) 0 SEEN /hpf [facility] Nitrite Test strip Ql (U)Ord ered By: Damian Melvin on 02-14-2023 Nitrite Ql (U) Negative Negative [facility] No Panel InformationOrdered By: Damian Melvin on 02-14-2023 Estimated Creatinine Clearance Calc 41.19 ml/min [facility] Estimated GFR (MDRD) Amer 54 mL/min >60 [facility] Comment on above: GFR Calc Estimated GFR (MDRD) Non-Af Amer 45 mL/min >60 [facility] Comment on above: Non- GFR Calc Platelets bldOrdered By: Mary Alice Melvin on 02-14-2023 Platelets (Bld) [#/Vol] 332 10*3/uL 150-450 [facility] Protein Test strip Ql (U)Ord ered By: Damian Melvin on 02-14-2023 Protein Ql (U) 500 mg/dl Negative [facility] Serum or plasma calcium janusz urement (mass/volume)Ordered By: Damian Melvin on 02-14-2023 Calcium [Mass/Vol] 8.6 mg/dL 8.5-10.1 [facility] Serum or plasma creatinine m easurement (mass/volume)Ordered By: Damian Melvin on 02-14-2023 Creatinine [Mass/Vol] 1.60 mg/dL 0.70-1.30 [facility] Comment on above: The validity of the calculated GFR & GFRAA in patients over 70 years has not been determined. Clinical correlation is essential. Serum or plasma urea nitroge n measurement (mass/volume)Ordered By: Damian Melvin on 02-14-2023 Urea nitrogen [Mass/Vol] 24 mg/dL 7-18 [facility] Squamous epithelial cells de tection in urine sediment by light microscopyOrdered By: Damian Melvin on 02-14-2023 Epithelial cells.squamous LM Ql (Urine sed) 0 SEEN /hpf 0-5 [facility] Thin prep Papanicolaou smear with manual screeningOrdered By: Damian Melvin on 02-14-2023 Thin prep Papanicolaou smear with manual screening 10 5-15 [facility] Urine blood detectionOrdered By: Damian Melvin on 02-14-2023 RBC Ql (U) 250 /ul Negative [facility] RBC Ql (U) > 100 SEEN /hpf 0-5 [facility] Comment on above: Microscopic field is filled. Other elements may be obscured. Urine clarityOrdered By: Mary Alice Melvin on 02-14-2023 Clarity (U) Cloudy Clear [facility] Urine color determinationOrd ered By: Damian Melvin on 02-14-2023 Color (U) Red Yellow [facility] Urine glucose detectionOrder ed By: Damian Melvin on 02-14-2023 Glucose Ql (U) Normal mg/dl Normal [facility] Urine leukocyte esterase det ection by dipstickOrdered By: Damian Melvin on 02-14-2023 Leukocyte esterase Test strip Ql (U) Negative Negative [facility] Urine pHOrdered By: Damian chávez on 02-14-2023 pH (U) 8.0 [pH] 5.0 - 8.0 [facility] Urine sediment bacteria coun t by microscopy (number/high power field)Ordered By: Damian Melvin on 02-14-2023 Bacteria LM.HPF (Urine sed) [#/Area] 0 /[HPF] None Seen [facility] Urine specific gravity measu rementOrdered By: Damian Melvin on 02-14-2023 Specific gravity (U) [Rel density] 1.010 1.002-1.030 [facility] Urobilinogen Auto test strip Ql (U)Ordered By: Damian Melvin on 02-14-2023 Urobilinogen Ql (U) Normal mg/dl Normal [facility] ALLIED HEALTHon 02-12-2023 ALLIED HEALTH HNO ID: [id number] Author: Radha Brower Chaplain Service: Spiritual Care Author Type: Grade Checker Type: Allied Health Filed: 02/12/2023 11:00 AM Note Text: SPIRITUAL CARE PROGRESS NOTE SERVICE DATE: 02/12/2023 SERVICE TIME: 10:40 am Short visit with patient. Patient shared he had no need for Spiritual Care services at this time. To contact the Spiritual Care Department: Please call [phone]. SIGNATURE: Chaplain Octavio PATIENT NAME: Barbara Milan DATE: February 12, 2023 TIME: 10:59 AM PAGER/CONTACT #: [phone] Normal [facility] Basic metabolic 2000 panelon 02-12-2023 Anion gap [Moles/Vol] 11 mmol/L Normal 9-18 [facility] Comment on above: Order Comment: Speci men Type: BLOOD SPECIMEN Ordering Facility: [facility] Address: [address] [place] [address] Performed By: #### 2 4321-2 #### [facility] CLIA [id number] [address] [place] Calcium [Mass/Vol] 7.9 mg/dL Low 8.5-10.2 [facility] Comment on above: Order Comment: Speci men Type: BLOOD SPECIMEN Ordering Facility: [facility] Address: [address] [place] [address] Performed By: #### 2 4321-2 #### [facility] CLIA [id number] [address] [place] Chloride [Moles/Vol] 103 mmol/L Normal 97-105 [facility] Comment on above: Order Comment: Speci men Type: BLOOD SPECIMEN Ordering Facility: [facility] Address: [address] [place] [address] Performed By: #### 2 4321-2 #### [facility] CLIA [id number] 1 [place] [address] [place] CO2 [Moles/Vol] 22 mmol/L Normal 22-30 [facility] Comment on above: Order Comment: Speci men Type: BLOOD SPECIMEN Ordering Facility: [facility] Address: [address] [place] [address] Performed By: #### 2 4321-2 #### [facility] CLIA [id number] [address] [place] Creatinine [Mass/Vol] 1.26 mg/dL High 0.73-1.22 [facility] Comment on above: Order Comment: Speci men Type: BLOOD SPECIMEN Ordering Facility: [facility] Address: [address] [place] [address] Performed By: #### 2 4321-2 #### [facility] CLIA [id number] 1 [place] [address] [place] Creatinine and Glomerular filtration rate.predicted panel (S/P/Bld) 59 mL/min/1.73m??? Low >=60 [facility] Comment on above: Order Comment: Specjoseline dominique Type: BLOOD SPECIMEN Ordering Facility: [facility] Address: [address] [place] [address] Result Comment: Christy mated Glomerular Filtration Rate (eGFR) is calculated using the 2020 CKD-EPI creatinine equation. This equation utilizes serum creatinine, sex, and age as parameters. The creatinine assay has traceable calibration to isotope dilution-mass spectrometry. Refer to KDIGO guidelines for clinical interpretation. In patients with unstable renal function, e.g. those with acute kidney injury, the eGFR may not accurately reflect actual GFR. Performed By: #### 2 4321-2 #### [facility] CLIA [id number] 1 [place] [address] [place] Glucose [Mass/Vol] 109 mg/dL High 74-99 [facility] Comment on above: Order Comment: Specjoseline dominique Type: BLOOD SPECIMEN Ordering Facility: [facility] Address: [address] [place] [address] Result Comment: The [place] [employer] (ADA) provides guidance for cutoff values for fasting glucose and random glucose. The ADA defines fasting as no caloric intake for at least 8 hours. Fasting plasma glucose results between 100 to 125 mg/dL indicate increased risk for diabetes (prediabetes). Fasting plasma glucose results greater than or equal to 126 mg/dL meet the criteria for diagnosis of diabetes. In the absence of unequivocal hyperglycemia, results should be confirmed by repeat testing. In a patient with classic symptoms of hyperglycemia or hyperglycemic crisis, random plasma glucose results greater than or equal to 200 mg/dL meet the criteria for diagnosis of diabetes. Reference: Standards of Medical Care in Diabetes 2016, [place] [employer]. Diabetes Care. 2016.39(Suppl 1). Performed By: #### 2 4321-2 #### [facility] CLIA [id number] 1 [place] [address] [place] Potassium [Moles/Vol] 4.1 mmol/L Normal 3.7-5.1 [facility] Comment on above: Order Comment: Speci men Type: BLOOD SPECIMEN Ordering Facility: [facility] Address: [address] [address] Performed By: #### 2 4321-2 #### [facility] CLIA [id number] [address] [place] [facility] Sodium [Moles/Vol] 136 mmol/L Normal 136-144 [facility] Comment on above: Order Comment: Speci men Type: BLOOD SPECIMEN Ordering Facility: [facility] Address: [address] [address] Performed By: #### 2 4321-2 #### [facility] CLIA [id number] [address] [place] [facility] Urea nitrogen [Mass/Vol] 20 mg/dL Normal 9-24 [facility] Comment on above: Order Comment: Speci men Type: BLOOD SPECIMEN Ordering Facility: [facility] Address: [address] [address] Performed By: #### 2 4321-2 #### [facility] CLIA [id number] [address] [place] [facility] CBC panel Auto (Bld)on 02-12 Erythrocyte distribution width (RBC) [Ratio] 12.6 % Normal 11.5-15.0 [facility] Comment on above: Order Comment: Speci men Type: BLOOD SPECIMEN Ordering Facility: [facility] Address: [address] [address] Performed By: #### 2 4321-2 #### [facility] CLIA [id number] [address] Hematocrit (Bld) [Volume fraction] 27.5 % Low 39.0-51.0 [facility] Comment on above: Order Comment: Speci men Type: BLOOD SPECIMEN Ordering Facility: [facility] Address: [address] [address] Performed By: #### 2 4321-2 #### [facility] CLIA [id number] [address] Hemoglobin (Bld) [Mass/Vol] 9.3 g/dL Low 13.0-17.0 [facility] Comment on above: Order Comment: Speci men Type: BLOOD SPECIMEN Ordering Facility: [facility] Address: [address] [place] [address] Performed By: #### 2 4321-2 #### [facility] CLIA [id number] [address] MCH (RBC) [Entitic mass] 30.8 pg Normal 26.0-34.0 [facility] Comment on above: Order Comment: Speci men Type: BLOOD SPECIMEN Ordering Facility: [facility] Address: [address] [place] [address] Performed By: #### 2 4321-2 #### [facility] CLIA [id number] [address] MCHC (RBC) [Mass/Vol] 33.8 g/dL Normal 30.5-36.0 [facility] Comment on above: Order Comment: Speci men Type: BLOOD SPECIMEN Ordering Facility: [facility] Address: [address] [place] [address] Performed By: #### 2 4321-2 #### [facility] CLIA [id number] [address] MCV (RBC) [Entitic vol] 91.1 fL Normal 80.0-100.0 [facility] Comment on above: Order Comment: Speci men Type: BLOOD SPECIMEN Ordering Facility: [facility] Address: [address] [place] [address] Performed By: #### 2 4321-2 #### [facility] CLIA [id number] [address] Nucleated RBC (Bld) [#/Vol] 10*3/uL Normal <0.01 [facility] Comment on above: Order Comment: Speci men Type: BLOOD SPECIMEN Ordering Facility: [facility] Address: [address] [address] Performed By: #### 2 4321-2 #### [facility] CLIA [id number] [address] Platelet mean volume (Bld) [Entitic vol] 10.7 fL Normal 9.0-12.7 [facility] Comment on above: Order Comment: Speci men Type: BLOOD SPECIMEN Ordering Facility: [facility] Address: [address] [address] Performed By: #### 2 4321-2 #### [facility] CLIA [id number] [address] [place] Platelets (Bld) [#/Vol] 248 10*3/uL Normal 150-400 [facility] Comment on above: Order Comment: Speci men Type: BLOOD SPECIMEN Ordering Facility: [facility] Address: [address] [address] Performed By: #### 2 4321-2 #### [facility] CLIA [id number] [address] [place] RBC (Bld) [#/Vol] 3.02 10*6/uL Low 4.20-6.00 [facility] Comment on above: Order Comment: Speci men Type: BLOOD SPECIMEN Ordering Facility: [facility] Address: [address] [address] Performed By: #### 2 4321-2 #### [facility] CLIA [id number] [address] [place] WBC (Bld) [#/Vol] 7.44 10*3/uL Normal 3.70-11.00 [facility] Comment on above: Order Comment: Speci men Type: BLOOD SPECIMEN Ordering Facility: [facility] Address: [address] [place] [address] Performed By: #### 2 4321-2 #### [facility] CLIA [id number] [address] [place] CNDSon 02-12-2023 [facility] HNO ID: [id number] Author: Yanni Badillo MD Service: Urology Author Type: Resident Type: Discharge Summary Filed: 02/12/2023 8:37 AM Note Text: Attestation signed by Rio Pardo MD at 02/12/2023 2:58 PM I saw and evaluated the patient. Discussed with the resident and agree with resident's findings and plan as documented in the resident's note. Follow up with Urology in [place]. Rio Pardo MD DISCHARGE SUMMARY PATIENT NAME: Barbara Milan Code Status: Not on file Highest Readmission Risk Score: 16 The 30 day readmissions risk score is derived from an internally validated risk model which evaluates patient level characteristics, utilization history, medication orders and lab results up until the day of discharge. Patients with a score of 40 or above are considered highest risk for readmission. Specific patient level drivers will be listed at the bottom of the summary. Admission Information Admission Information ADMIT DATE: 02/07/2023 DISCHARGE DATE: 02/12/2023 MY DOCTORS AND MEDICAL TEAM: [facility] Doctor: Max Grewal MD Primary Care Provider: Kelvin Han MD My Medical Team Members: Treatment Team: Attending Provider: Max Grewal MD MY CONDITION AT DISCHARGE: Stable REASON I WAS IN THE HOSPITAL: gross hematuria SUMMARY OF WHAT HAPPENED WHILE I WAS IN THE HOSPITAL: Admitted to hospital for gross hematuria requiring 3 way worthy and CBI. He was brought to the OR on 02/11 for cystoscopy, clot evacuation, fulguration, bladder bx, cystogram. The patient recovered well, tolerated PO, pain was controlled, ambulated, and produced good urine. The patient was then discharged in stable condition. He was discharged with worthy in place OR FINDINGS: Urethra with several false passages. Prostate small and fibrotic appearing. Bladder with erythematous, friable, bleeding mucosa over the bladder neck area. No papillary tumors. Posterior wall 2 cm mucosal defect that appeared like it was due to a prior Worthy insert. Bleeding sites fulgurated. Biopsy taken of bladder neck mucosa. Cystogram shows bladder wall intact with no extravasation. Small capacity bladder. Worthy placed over a wire at conclusion of procedure. Position in the bladder confirmed. Hemostasis very good. OTHER PROBLEMS/DIAGNOSIS: Principal Problem: Gross hematuria Resolved Problems: * No resolved hospital problems. * OPERATIONS PERFORMED WHILE IN THE HOSPITAL: above IMPORTANT TEST/PROCEDURES: No procedures performed TEST RESULTS NOT AVAILABLE AT THIS TIME: No pending results Discharge Disposition Discharge Disposition: Home With Self Care Activity When You Leave the Hospital Go home and rest. Resume normal activity after: As tolerated May bathe and shower No walking restrictions Diet Instructions After general anesthetic, your stomach may be sensitive. Begin slowly by drinking water, then clear liquids, and then a light meal Drink 6 to 8 glasses of fluids per day Resume your pre-hospital diet For Pain When You Leave the Hospital Use acetaminophen (Tylenol) as recommended on the bottle Use ibuprofen (Motrin, Advil) as recommended on the bottle Call Your Doctor If Other: You have foul smelling urine You have persistent nausea/vomiting over 24 hours You have persistent or heavy bleeding Your temperature is greater than 101F Follow Up Appointments Follow-Up Appointment Recommend maintain worthy until 02/18 -plan for outpatient hyperbaric oxygen therapy in [facility] if hematuria persists With: [facility] When: In 1 week Additional Provider to Provider Information: No notes on file Treatment Team: Attending Provider: Max Grewal MD Transitions of Care Critical Issues: NEW BASELINE FOR PATIENT: worthy PROCEDURES SCHEDULED: na LABS AND PROCEDURES PENDING AT DISCHARGE: No pending results. FOLLOW-UP APPOINTMENTS ALREADY SCHEDULED WITH A [facility]: No future appointments. 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 Aspirin 81 mg Tab * leuprolide 30 mg injection Commonly known as: LUPRON DEPOT (4 MONTH) Inject 30 mg intramuscularly every 4 months. * leuprolide 30 mg injection Commonly known as: LUPRON DEPOT (4 MONTH) Inject 30 mg intramuscularly every 4 months. * leuprolide 30 mg injection Comm (more content not included)... Normal [facility] ANES POSTPROC EVALon 023 ANES POSTPROC EVAL HNO ID: [id number] Author: Drea Carey MD Service: Anesthesiology Author Type: Physician Type: Anesthesia Postprocedure Evaluation Filed: 02/11/2023 4:00 PM Note Text: POST ANESTHESIA EVALUATION NOTE : 1945 Procedure Summary Date: 02/11/23 Room / Location: [place] OR 18 / [place] Anesthesia Start: 1450 Anesthesia Stop: 1559 Procedure: EVACUATION CLOT FULGURATION BLEEDING PROSTATE, CYSTOGRAM, BLADDER BIOPSY (Bladder) Diagnosis: Gross hematuria (Gross hematuria [R31.0]) Surgeons: Kelvin Edwards MD Responsible Provider: Drea Carey MD Anesthesia Type: general ASA Status: 3 Anesthesia Type: general Airway Type: LMA Last Vitals Vitals Value Taken Time BP 117/76 02/11/23 1556 Temp 02/11/23 1559 Pulse 90 02/11/23 1558 Resp 15 02/11/23 1558 SpO2 99 % 02/11/23 1558 Vitals shown include unvalidated device data. Post Anesthesia Patient Status Patient Evaluation: PACU. PACU/ICU Patient Condition: stable. Anticipated Disposition: inpatient floor planned admission. Neurological Status: aware and responsive. Pulmonary Status: breathing comfortably on supplemental oxygen Airway Control: returned to baseline unsupported. Cardiovascular Status: stable. Pain Management: clinically adequate Postoperative Hydration: acceptable. Intraoperative Events: no significant anesthesia events Post Operative Nausea/Vomiting Status: no significant post operative nausea or vomiting Recommendation: continue current plan of care. 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 as calculated from the following: Height as of this encounter: 177.8 cm (5' 10). Weight as of this encounter: 88.5 kg (195 lb). Most recent hematocrit and potassium results: Hematocrit 27.3 02/11/2023 Potassium 3.9 02/11/2023 Relevant Problems CARDIO (+) BENIGN HYPERTENSION (+) Nieves////Capillary Angioma (+) Internal hemorrhoids without mention of complication I - PHYSICAL EVALUATION AIRWAY Patient intubated: No. Tracheostomy tube not present Mallampati: II. TM distance: >3 FB. Neck ROM: full ROM without neurological symptoms. Mouth opening: adequate. Short neck: no. Additional comments: Receding chin . Thick neck: no II - ANESTHESIA PLAN ASA Score: 3 Anesthetic Plan: general Airway type: LMA The patient is not a current smoker. NPO Status: adequate Beta Carlita Monitoring Plan Monitoring plan: standard ASA. Post Procedure Analgesic Plan Postoperative analgesic plan: multimodal analgesia. Informed Consent Anesthetic risks, benefits, alternatives, personnel and consent discussed: yes. Patient / Responsible Constitution Party agrees to proceed: yes Patient / Surrogate agrees to blood products: Yes Potential Anesthesia issues that may suggest increased risk of complications or contraindication to planned procedure: none. No vitals data found for the desired time range. Facility-Administere d Medications as of 02/11/2023 Medication Dose Route Frequency - [] HYDROmorphone (PF) 0.5 mg injection (DILAUDID) 0.5 mg INTRAVENOUS ONCE - [Held on Transfer] gabapentin 100 mg cap(s) (NEURONTIN) 100 mg ORAL q 8 H - [Held on Transfer] acetaminophen 650 mg tab(s) (TYLENOL) 650 mg ORAL q 6 H - [Held on Transfer] potassium alum 30 g in sodium chloride 0.9 % 3,000 mL IRRIGATION CONTINUOUS - [Held on Transfer] NaCl 0.9% irrigation solution 3,000 mL IRRIGATION CONTINUOUS - [Held on Transfer] NaCl 0.9% iv flush bag 20 mL INTRAVENOUS PRN - [Held on Transfer] lisinopril 40 mg tab(s) (ZESTRIL) 40 mg ORAL BID - [Held on Transfer] amLODIPine 10 mg tab(s) (NORVASC) 10 mg ORAL DAILY - [Held on Transfer] lactated ringers iv infusion 75 mL/hr INTRAVENOUS CONTINUOUS - [Held on Transfer] HYDROmorphone (PF) 0.2 mg injection (DILAUDID) 0.2 mg INTRAVENOUS q 2 H PRN - [Held on Transfer] magnesium hydroxide 400 mg/5 mL 30 mL (MOM) 30 mL ORAL DAILY PRN - [Held on Transfer] melatonin 1 mg tab(s) 1 mg ORAL AT BEDTIME PRN - [Held on Transfer] enoxaparin 40 mg injection (LOVENOX) 40 mg SUBCUTANEOUS DAILY - [Held on Transfer] NaCl 0.9% irrigation bag 3,000 mL IRRIGATION CONTINUOUS - [Held on Transfer] oxyCODONE IR 2.5-5 mg tab(s) (ROXICODONE) 2.5-5 mg ORAL q 6 H PRN - [Held on Transfer] hyoscyamine sublingual 0.125 mg tab(s) (LEVSIN SL) 0.125 mg SUBLINGUAL q 6 H PRN - [Held on Transfer] ondansetron (PF) 4 mg injection (ZOFRAN) 4 mg INTRAVENOUS q 6 H PRN - [Held on Transfer] doxazosin 4 mg tab(s) (CARDURA) 4 mg ORAL AT BEDTIME Outpatient Medications as of 02/11/2023 Medication Sig - terazosin (HYTRIN) 2 mg capsule Take 1 capsule by mouth daily at bedtime. - amLODIPine (NORVASC) 10 mg tablet Take 1 tablet by mouth once daily. - lisinopril (ZESTRIL, PRINIVIL) 40 mg tablet Take 1 tablet by mouth twice daily. - ASPIRIN 81 MG ORAL TAB Take one (1) tablet daily . - leuprolide (LUPRON DEPOT, 4 MONTH,) 30 mg injection Inject 30 mg intramuscularly every 4 months. - leuprolide (LUPRON DEPOT, 4 MONTH,) 30 mg injection Inject 30 mg intramuscularly every 4 months. - leuprolide (LUPRON DEPOT, 4 MONTH,) 30 mg injection Inject 30 mg intramuscularly every 4 months. - mv with wnw-IQ-eqoxsoxx-gink go (ONE-A-DAY MEN'S 50+ ADVANTAGE) 400-300-120 mcg-mcg-mg tab Take 1 tablet by mouth once daily. I have interviewed and examined the patient. I have reviewed the medical record and/or the pre-anesthesia evaluation, pertinent labs, and test results. This contains updated information obtained within 48 hours of Surgery/Procedure. SIGNATURE: Drea Carey MD PATIENT NAME: Barbara Milan DATE: February 11, 2023 TIME: 12:24 PM CSN: [id number] Normal [facility] Basic metabolic 2000 panelon 02-11-2023 Anion gap [Moles/Vol] 9 mmol/L Normal 9-18 [facility] Comment on above: Order Comment: Speci men Type: BLOOD SPECIMEN Ordering Facility: [facility] Address: [address] [place] [address] Performed By: #### 2 4321-2 #### [facility] CLIA [id number] [address] [place] [address] [place] Calcium [Mass/Vol] 8.4 mg/dL Low 8.5-10.2 [facility] Comment on above: Order Comment: Speci men Type: BLOOD SPECIMEN Ordering Facility: [facility] Address: [address] [address] Performed By: #### 2 4321-2 #### [facility] CLIA [id number] [address] [place] [address] [place] Chloride [Moles/Vol] 103 mmol/L Normal 97-105 [facility] Comment on above: Order Comment: Speci men Type: BLOOD SPECIMEN Ordering Facility: [facility] Address: [address] [place] [address] Performed By: #### 2 4321-2 #### [facility] CLIA [id number] [address] [place] CO2 [Moles/Vol] 21 mmol/L Low 22-30 [facility] Comment on above: Order Comment: Speci men Type: BLOOD SPECIMEN Ordering Facility: [facility] Address: [address] [place] [address] Performed By: #### 2 4321-2 #### [facility] CLIA [id number] [address] [facility] Creatinine [Mass/Vol] 1.30 mg/dL High 0.73-1.22 [facility] Comment on above: Order Comment: Speci men Type: BLOOD SPECIMEN Ordering Facility: [facility] Address: [address] [place] [address] Performed By: #### 2 4321-2 #### [facility] CLIA [id number] [address] Creatinine and Glomerular filtration rate.predicted panel (S/P/Bld) 57 mL/min/1.73m??? Low >=60 [facility] Comment on above: Order Comment: Speci men Type: BLOOD SPECIMEN Ordering Facility: [facility] Address: [address] [place] [address] Result Comment: Christy mated Glomerular Filtration Rate (eGFR) is calculated using the 2020 CKD-EPI creatinine equation. This equation utilizes serum creatinine, sex, and age as parameters. The creatinine assay has traceable calibration to isotope dilution-mass spectrometry. Refer to KDIGO guidelines for clinical interpretation. In patients with unstable renal function, e.g. those with acute kidney injury, the eGFR may not accurately reflect actual GFR. Performed By: #### 2 4321-2 #### [facility] CLIA [id number] [address] [place] Glucose [Mass/Vol] 108 mg/dL High 74-99 [facility] Comment on above: Order Comment: Elisa dominique Type: BLOOD SPECIMEN Ordering Facility: [facility] Address: [address] [place] [address] Result Comment: The [place] Diabetes [employer] (ADA) provides guidance for cutoff values for fasting glucose and random glucose. The ADA defines fasting as no caloric intake for at least 8 hours. Fasting plasma glucose results between 100 to 125 mg/dL indicate increased risk for diabetes (prediabetes). Fasting plasma glucose results greater than or equal to 126 mg/dL meet the criteria for diagnosis of diabetes. In the absence of unequivocal hyperglycemia, results should be confirmed by repeat testing. In a patient with classic symptoms of hyperglycemia or hyperglycemic crisis, random plasma glucose results greater than or equal to 200 mg/dL meet the criteria for diagnosis of diabetes. Reference: Standards of Medical Care in Diabetes 2016, [place] [employer]. Diabetes Care. 2016.39(Suppl 1). Performed By: #### 2 4321-2 #### [facility] CLIA [id number] [address] [place] Potassium [Moles/Vol] 3.9 mmol/L Normal 3.7-5.1 [facility] Comment on above: Order Comment: Elisa dominique Type: BLOOD SPECIMEN Ordering Facility: [facility] Address: [address] [place] [address] Performed By: #### 2 4321-2 #### [facility] CLIA [id number] [address] [place] [address] [place] Sodium [Moles/Vol] 133 mmol/L Low 136-144 [facility] Comment on above: Order Comment: Elisa dominique Type: BLOOD SPECIMEN Ordering Facility: [facility] Address: [address] [place] [address] Performed By: #### 2 4321-2 #### [facility] CLIA [id number] [address] [place] [address] [place] Urea nitrogen [Mass/Vol] 22 mg/dL Normal 9-24 [facility] Comment on above: Order Comment: Elisa dominique Type: BLOOD SPECIMEN Ordering Facility: [facility] Address: [address] [address] Performed By: #### 2 4321-2 #### [facility] CLIA [id number] [address] CBC panel Auto (Bld)on 02-11 Erythrocyte distribution width (RBC) [Ratio] 12.7 % Normal 11.5-15.0 [facility] Comment on above: Order Comment: Speci men Type: BLOOD SPECIMEN Ordering Facility: [facility] Address: [address] [address] Performed By: #### 2 4321-2 #### [facility] CLIA [id number] [address] Hematocrit (Bld) [Volume fraction] 27.3 % Low 39.0-51.0 [facility] Comment on above: Order Comment: Speci men Type: BLOOD SPECIMEN Ordering Facility: [facility] Address: [address] [place] [address] Performed By: #### 2 1-2 #### [facility] CLIA [id number] [address] Hemoglobin (Bld) [Mass/Vol] 9.3 g/dL Low 13.0-17.0 [facility] Comment on above: Order Comment: Speci men Type: BLOOD SPECIMEN Ordering Facility: [facility] Address: [address] [place] [address] Performed By: #### 2 1-2 #### [facility] CLIA [id number] [address] MCH (RBC) [Entitic mass] 30.6 pg Normal 26.0-34.0 [facility] Comment on above: Order Comment: Speci men Type: BLOOD SPECIMEN Ordering Facility: [facility] Address: [address] [address] Performed By: #### 2 4321-2 #### [facility] CLIA [id number] [address] [place] [address] [place] MCHC (RBC) [Mass/Vol] 34.1 g/dL Normal 30.5-36.0 [facility] Comment on above: Order Comment: Speci men Type: BLOOD SPECIMEN Ordering Facility: [facility] Address: [address] [address] Performed By: #### 2 4321-2 #### [facility] CLIA [id number] [address] [place] MCV (RBC) [Entitic vol] 89.8 fL Normal 80.0-100.0 [facility] Comment on above: Order Comment: Speci men Type: BLOOD SPECIMEN Ordering Facility: [facility] Address: [address] [address] Performed By: #### 2 4321-2 #### [facility] CLIA [id number] [address] Nucleated RBC (Bld) [#/Vol] 10*3/uL Normal <0.01 [facility] Comment on above: Order Comment: Speci men Type: BLOOD SPECIMEN Ordering Facility: [facility] Address: [address] [address] Performed By: #### 2 1-2 #### [facility] CLIA [id number] [address] [place] Platelet mean volume (Bld) [Entitic vol] 10.9 fL Normal 9.0-12.7 [facility] Comment on above: Order Comment: Speci men Type: BLOOD SPECIMEN Ordering Facility: [facility] Address: [address] [address] Performed By: #### 2 4321-2 #### [facility] CLIA [id number] [address] [place] Platelets (Bld) [#/Vol] 211 10*3/uL Normal 150-400 [facility] Comment on above: Order Comment: Speci men Type: BLOOD SPECIMEN Ordering Facility: [facility] Address: [address] [address] Performed By: #### 2 1-2 #### [facility] CLIA [id number] [address] RBC (Bld) [#/Vol] 3.04 10*6/uL Low 4.20-6.00 [facility] Comment on above: Order Comment: Speci men Type: BLOOD SPECIMEN Ordering Facility: [facility] Address: [address] [place] [address] Performed By: #### 2 4321-2 #### [facility] CLIA [id number] [address] WBC (Bld) [#/Vol] 7.34 10*3/uL Normal 3.70-11.00 [facility] Comment on above: Order Comment: Speci men Type: BLOOD SPECIMEN Ordering Facility: [facility] Address: [address] [place] [address] Performed By: #### 2 4321-2 #### [facility] CLIA [id number] [address] OPERATIVE NOon 02-11-2023 OPERATIVE NO HNO ID: [id number] Author: Mayra Carrasquillo MD Service: Urology Author Type: Resident Type: Operative Report Filed: 02/11/2023 5:56 PM Note Text: Attestation signed by Kelvin Edwards MD at 02/21/2023 10:18 AM (Updated) Attending Note I was present during the hurd and critical portion(s) of this procedure, and was immediately available for all other portions. FINDINGS: Urethra with several false passages. Prostate fossa small and fibrotic appearing. Bladder with erythematous, friable, bleeding mucosa over the bladder neck area. No papillary tumors. Posterior wall 2 cm mucosal defect that appeared like it was due to a prior Worthy insert. Bleeding sites fulgurated. Biopsy taken of bladder neck mucosa. Cystogram shows bladder wall intact with no extravasation. Small capacity bladder. Worthy placed over a wire at conclusion of procedure. Position in the bladder confirmed. Hemostasis very good. Kelvin Edwards MD Date: 02/12/23 Time: 7:29 AM OPERATIVE/PROCEDURE REPORT LOG ID: [id number] Surgery/Procedure Date: 02/11/2023 Incision/Procedure Start Time: 3:02 PM Incision Close/Procedure End Time: 3:48 PM Surgeon(s)/Procedura list(s) and Consumer Analyst(s): Surgeon(s) and Role: * Kelvin Edwards MD - Primary * Mayra Carrasquillo MD - Resident - Assisting * Mj Wills MD - Resident - Assisting No Additional Staff Procedure(s): Cystoscopy, Clot evacuation, Fulguration, Bladder Biopsy, Cystogram Anesthesia: General Pre-Op/Pre-Procedure Diagnosis: Pre-Op Diagnosis Codes: * Gross hematuria [R31.0] Post-Op/Post-Procedu re Diagnosis: Same Estimated Blood Loss: <5 mls Specimens: bladder biopsy Drains: 22 Fr ramah navajo chapter tip, 10cc in the balloon Complications: None Procedure Details: Indications: This is a 77 year old pt who presents with hematuria. After an explanation of the risks, benefits and alternatives the patient does wish to proceed forward. Standard Huddle performed. Operation Patient was brought to the operating room. . Patient was placed on OR table and anesthesia induced. Airways and lines were maintained by anesthesia team. Patient was placed into dorsal lithotomy position. Pressure points were padded. Prepped and draped in usual sterile fashion. A thorough time out was performed and all present were in agreement. A cystourethroscope was inserted through the urethra. The entire bladder was inspected using a 30 degree angled lens. Diffuse clot was noted floating within the bladder. Bladder mucosa was erythematous and friable consistent with radiation changes. A mucosal defect 2cm in size was identified along the mid posterior bladder wall. The defect was carefully inspected and did not appear to be consistent with a perforation. The visual obturator was from the outer sheath leaving which was then connected to an quantitative equity head port. Using a 60cc awa syringe, gentle irrigation was used to evacuate clot from the bladder to achieve a light pink urine. We then detached the quantitative equity head port and re-connected the obturator to the outer sheath. The cystoscope was then used to re-examine the bladder to ensure all clot burden had been removed. The source of bleeding was identified along the right bladder neck. The cystoscope was exchanged for a continuous flow resectoscope sheath. This was placed under direct visualization. The bipolar loop was used to fulgurate the bladder neck. Care was taken to prevent bladder perforation. A biopsy was taken from the bladder neck. Hemostasis was achieved. The ureteral orifices were inspected and found to be free of harm or injury. The resectoscope was exchanged for a cystoscope. A senior business development analyst film was obtained. We then instilled ~50cc contrast into the bladder. Another xray was obtained showing no obvious extravasation. The bladder was filled to compactly, and third extra was obtained. Again no extravasation of contrast was noted. Bladder capacity was small. We then emptied the bladder. There was no residual contrast noted in the bladder or perivesical space. A 0.35 guide wire was passed into the bladder under direct visualization. The cystoscope was then removed from the bladder. A 22Fr ramah navajo chapter tip worthy catheter was placed over the wire. 10cc were placed in the balloon. Worthy catheter was irrigated to confirm proper placement in the bladder. The patient tolerated the procedure well. Pt awakened and taken to recovery room in stable condition. Mj Wills MD PGY1 Urology 4:24 PM 02/11/23 Mayra Carrasquillo MD Urology PGY2 02/11/2023 5:56 PM -Page manager global communications resident with questions or concerns Normal [facility] SURGICAL PATHOLOGYon 023 CASE REPORT Normal [facility] Comment on above: Order Comment: Speci men Type: TISSUE SPECIMENOrdering Facility: [facility] Address: [address] [place] [id number] Result Comment: Surg ical Pathology Report Case: [id number] Authorizing Provider: Kelvin Edwards MD Collected: 02/11/2023 03:24 PM Ordering Location: [facility] Received: 02/14/2023 09:41 AM Pathologist: Brittney Hidalgo MD Specimen: BLADDER BIOPSY, bladder biopsy bladder neck Performed By: #### S ####[facility] [id number] [address] CLINICAL HISTORY Normal [facility] Comment on above: Order Comment: Speci men Type: TISSUE SPECIMENOrdering Facility: [facility] Address: [address] [place] [address] Result Comment: Pre- op diagnosis: Gross hematuria [R31.0] Performed By: #### S ####[facility] [id number] [address] FINAL DIAGNOSIS Normal [facility] Comment on above: Order Comment: Speci men Type: TISSUE SPECIMENOrdering Facility: [facility] Address: [address] [place] [address] Result Comment: Nick quiroz, biopsy: - Predominantly blood and scant urothelium. - See comment. Performed By: #### S ####[facility]ATORYCLIA [id number] [address] FINAL PERFORMING LAB Normal [facility] Comment on above: Order Comment: Speci men Type: TISSUE SPECIMENOrdering Facility: [facility] Address: [address] [place] [address] Result Comment: Diag nostic interpretation performed at [facility], [address] [place] [address] CLIA# [id number] Vegetable Washing Machine Operator: Damian Valdivia M.D. Performed By: #### S ####[facility] LABORATORYCLIA [id number] [address] GROSS DESCRIPTION Normal [facility] Comment on above: Order Comment: Speci men Type: TISSUE SPECIMENOrdering Facility: [facility] Address: [address] [place] [address] Result Comment: A. B LADDER BIOPSY Received in formalin and designated bladder biopsy are fragments of red-brown tissue that is strained into a biopsy bag and has an aggregate measurement of 0.5 x 0.2 x 0.1 cm. The specimen is entirely submitted in 1 cassette. KM February 14, 2023 12:57 PM Gross examination performed at [facility], [address] [place] [address] CLIA# [id number] Performed By: #### S ####[facility] LABORATORYCLIA [id number] [place] [address] [place] Basic metabolic 2000 panelon 02-10-2023 Anion gap [Moles/Vol] 9 mmol/L Normal 9-18 [facility] Comment on above: Order Comment: Speci men Type: BLOOD SPECIMEN [facility] Address: [address] [place] [address] Performed By: #### 2 4321-2 #### [facility] CLIA [id number] [address] [place] [address] [place] Calcium [Mass/Vol] 8.4 mg/dL Low 8.5-10.2 [facility] Comment on above: Order Comment: Speci men Type: BLOOD SPECIMEN [facility] Address: [address] [place] [address] Performed By: #### 2 4321-2 #### [facility] CLIA [id number] [address] [place] [address] [place] Chloride [Moles/Vol] 104 mmol/L Normal 97-105 [facility] Comment on above: Order Comment: Speci men Type: BLOOD SPECIMEN [facility] Address: [address] [place] [address] Performed By: #### 2 4321-2 #### [facility] CLIA [id number] [address] [place] [address] [place] CO2 [Moles/Vol] 21 mmol/L Low 22-30 [facility] Comment on above: Order Comment: Elisa dominique Type: BLOOD SPECIMEN [facility] Address: [address] [place] [address] Performed By: #### 2 4321-2 #### [facility] CLIA [id number] [address] [place] Creatinine [Mass/Vol] 1.23 mg/dL High 0.73-1.22 [facility] Comment on above: Order Comment: Elisa dominique Type: BLOOD SPECIMEN [facility] Address: [address] [place] [address] Performed By: #### 2 4321-2 #### [facility] CLIA [id number] [address] Creatinine and Glomerular filtration rate.predicted panel (S/P/Bld) 61 mL/min/1.73m??? Normal >=60 [facility] Comment on above: Order Comment: Elisa dominique Type: BLOOD SPECIMEN [facility] Address: [address] [place] [address] Result Comment: Christy mated Glomerular Filtration Rate (eGFR) is calculated using the 2020 CKD-EPI creatinine equation. This equation utilizes serum creatinine, sex, and age as parameters. The creatinine assay has traceable calibration to isotope dilution-mass spectrometry. Refer to KDIGO guidelines for clinical interpretation. In patients with unstable renal function, e.g. those with acute kidney injury, the eGFR may not accurately reflect actual GFR. Performed By: #### 2 4321-2 #### [facility] CLIA [id number] [address] [place] Glucose [Mass/Vol] 112 mg/dL High 74-99 [facility] Comment on above: Order Comment: Elisa catina Type: BLOOD SPECIMEN [facility] Address: [address] [place] [address] Result Comment: The [place] Diabetes [employer] (ADA) provides guidance for cutoff values for fasting glucose and random glucose. The ADA defines fasting as no caloric intake for at least 8 hours. Fasting plasma glucose results between 100 to 125 mg/dL indicate increased risk for diabetes (prediabetes). Fasting plasma glucose results greater than or equal to 126 mg/dL meet the criteria for diagnosis of diabetes. In the absence of unequivocal hyperglycemia, results should be confirmed by repeat testing. In a patient with classic symptoms of hyperglycemia or hyperglycemic crisis, random plasma glucose results greater than or equal to 200 mg/dL meet the criteria for diagnosis of diabetes. Reference: Standards of Medical Care in Diabetes 2016, [place] [employer]. Diabetes Care. 2016.39(Suppl 1). Performed By: #### 2 4321-2 #### [facility] CLIA [id number] [address] Potassium [Moles/Vol] 4.0 mmol/L Normal 3.7-5.1 [facility] Comment on above: Order Comment: Elisa dominique Type: BLOOD SPECIMEN [facility] Address: [address] [place] [address] Performed By: #### 2 4321-2 #### [facility] CLIA [id number] [address] [place] [address] Sodium [Moles/Vol] 134 mmol/L Low 136-144 [facility] Comment on above: Order Comment: Elisa dominique Type: BLOOD SPECIMEN [facility] Address: [address] [place] [address] Performed By: #### 2 4321-2 #### [facility] CLIA [id number] [address] [place] [address] Urea nitrogen [Mass/Vol] 20 mg/dL Normal 9-24 [facility] Comment on above: Order Comment: Elisa dominique Type: BLOOD SPECIMEN [facility] Address: [address] [place] [address] Performed By: #### 2 4321-2 #### [facility] CLIA [id number] [address] CBC panel Auto (Bld)on 02-10 Erythrocyte distribution width (RBC) [Ratio] 12.5 % Normal 11.5-15.0 [facility] Comment on above: Order Comment: Caydeni men Type: BLOOD SPECIMEN [facility] Address: [address] [place] [address] Performed By: #### 5 8410-2 #### [facility] CLIA [id number] [address] Hematocrit (Bld) [Volume fraction] 28.8 % Low 39.0-51.0 [facility] Comment on above: Order Comment: Speci men Type: BLOOD SPECIMEN [facility] Address: [address] [place] [address] Performed By: #### 5 8410-2 #### [facility] CLIA [id number] [address] Hemoglobin (Bld) [Mass/Vol] 9.7 g/dL Low 13.0-17.0 [facility] Comment on above: Order Comment: Speci men Type: BLOOD SPECIMEN [facility] Address: [address] [place] [address] Performed By: #### 5 8410-2 #### [facility] CLIA [id number] [address] MCH (RBC) [Entitic mass] 30.5 pg Normal 26.0-34.0 [facility] Comment on above: Order Comment: Speci men Type: BLOOD SPECIMEN [facility] Address: [address] [place] [address] Performed By: #### 5 8410-2 #### [facility] CLIA [id number] [address] [facility] MCHC (RBC) [Mass/Vol] 33.7 g/dL Normal 30.5-36.0 [facility] Comment on above: Order Comment: Speci men Type: BLOOD SPECIMEN [facility] Address: [address] [place] [address] Performed By: #### 5 8410-2 #### [facility] CLIA [id number] [address] [place] [address] [place] MCV (RBC) [Entitic vol] 90.6 fL Normal 80.0-100.0 [facility] Comment on above: Order Comment: Speci men Type: BLOOD SPECIMEN [facility] Address: [address] [place] [address] Performed By: #### 5 8410-2 #### [facility] CLIA [id number] [address] [place] Nucleated RBC (Bld) [#/Vol] 10*3/uL Normal <0.01 [facility] Comment on above: Order Comment: Speci men Type: BLOOD SPECIMEN [facility] Address: [address] [place] [address] Performed By: #### 5 8410-2 #### [facility] CLIA [id number] [address] [place] Platelet mean volume (Bld) [Entitic vol] 11.0 fL Normal 9.0-12.7 [facility] Comment on above: Order Comment: Speci men Type: BLOOD SPECIMEN [facility] Address: [address] [place] [address] Performed By: #### 5 8410-2 #### [facility] CLIA [id number] [address] [place] Platelets (Bld) [#/Vol] 203 10*3/uL Normal 150-400 [facility] Comment on above: Order Comment: Speci men Type: BLOOD SPECIMEN [facility] Address: [address] [place] [address] Performed By: #### 5 8410-2 #### [facility] CLIA [id number] [address] [place] RBC (Bld) [#/Vol] 3.18 10*6/uL Low 4.20-6.00 [facility] Comment on above: Order Comment: Speci men Type: BLOOD SPECIMEN [facility] Address: [address] [place] [address] Performed By: #### 5 8410-2 #### [facility] CLIA [id number] [address] [facility] WBC (Bld) [#/Vol] 8.99 10*3/uL Normal 3.70-11.00 [facility] Comment on above: Order Comment: Speci men Type: BLOOD SPECIMEN [facility] Address: [address] [place] [address] [place] [id number] Performed By: #### 5 8410-2 #### [facility] CLIA [id number] [address] [place] [id number] [facility] [place] NURSING PROGon 02-10-2023 NURSING PROG HNO ID: [id number] Author: Drea Son, [place] Service: ? Author Type: Registered Nurse Type: Nursing Progress Note Filed: 02/10/2023 6:54 PM Note Text: Worthy catheter discontinued per order. 200 cc instilled. Incontinence episode during removal. Patient given urinal. 1352- patient has not voided yet but passing clots. Bladder scan for [address] Cortez Carrasquillo notified. 1543- Bladder scan per Dr Cortez Carrasquillo, 187 cc. 1700- cart on unit per request of Dr Cortez Carrasquillo. 1730- Dr Cortez Michelle up to unit to replace 3 way worthy. Normal [facility] THERAPY NTon 02-10-2023 THERAPY NT HNO ID: [id number] Author: Mayra Faulkner PTA Service: Physical Therapy Author Type: Beam Saw Operator Type: Therapy (PT/OT/Speech/Resp) Filed: 02/10/2023 1:31 PM Note Text: Attestation signed by Wes Calvillo, PT at 02/10/2023 4:16 PM I reviewed and agree with the documentation corresponding to this therapy visit. SIGNATURE: Wes Calvillo PT DATE: February 10, 2023 TIME: 4:16 PM Physical Therapy Treatment SERVICE DATE: 02/10/2023 SERVICE TIME: 1131 to 1205 ROOM: [id number] Recommended Discharge Disposition: Home PT Recommended Discharge Disposition Comments: Discussed with pt and he could potentially qualify for SNF based on how he is mobilizing vs home with home PT. Pt and are more amenable to home PT. is with him 27/12 and is able to assist as needed. Anticipated Discharge Needs: Physical Assist at Home Physical Assist at Home for: Laundry, Cleaning, Meals, Transportation PT 6 Clicks Score: 19 Patient tolerated increased mobility , less assistance required , patient was able to navigate steps sideways with using rail , educated patient and patient's in home safety . Patient progressing towards goals for Home with PT , patient and patient's family have a good understanding of proper mobility . Patient demo's safe and proper mobility for safe discharge home. Precautions/Activity Restrictions: Fall Risk Current Hospital Course: 77 y/o M adm 02/07 with hematuria. Started on continuous bladder irrigation. Reason for Hospital Admission: hematuria Relevant Past Medical History: prostate cancer s/p prostatectomy and radiation, L knee OA s/p TKA Response to Therapy Interventions: Good Participation in Activities, Improved Tolerance for Activity, On-Track to Achieve Discharge Goals Continued Skilled Needs Due to: Functional Mobility/Skill Impairments, Safety Concerns Physical Therapy Problem List: Pain, Safety Deficits, Impaired Self Care, Decreased Activity Tolerance, Decreased Range Of Motion, Decreased Strength, Functional Mobility Impairment, Balance Impaired Treatment Interventions: Education, Strengthening, Functional Mobility Training, Balance Training, Neuromuscular Re-education Home Environment Patient Lives With: Spouse Assistance Available: 24-Hour Entry To Home: Stairs, With Rail Number Of Stairs Into Home: 2 Number Of Stairs To Bed/Bath: 0 Tub/Shower Type: walk in with seat Laundry: spouse can assist Equipment Owned: Walker- Wheeled, Wheelchair- Manual, Shower Chair, Grab Bars- Shower Prior Functional Level: Within Functional Limits Prior Functional Level Comments: 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 Independent with mobility without AD, denies any recent falls. Baseline Cognition: Oriented to self, Oriented to place, Oriented to time Subjective: Pt is agreeable to PT CURRENT FUNCTIONAL STATUS: Most recent performance mobility performed during session in bold, other mobility completed during prior session and may no longer be correct or appropriate to complete. Current Functional Mobility Assist Level Additional Information Rolling Supine to Sit Supervision with bed flat Sit to Supine Supervision, Additional Information with bed flat Scooting Supervision Sit to Stand Contact Guard Assistance cues/assist to push up though LE's , hand placement and safety Stand to Sit Contact Guard Assistance, Additional Information cues/assist to align up to bed , slowly lower , hand placement and safety Bed to Chair Toilet/Commode Gait Contact Guard Assistance Gait Device: Wheeled Walker Gait Distance (feet): 100 feet x 2 Shoes donned , Cues/assist for upright posture , gait sequence and walker placement , LOB x 1 with patient able to self recovery CGA Stairs Curb Step Moderate Assistance, Minimal Assistance, Additional Information Device: Rail, Hand Held Assist cues/assist for proper gait sequence , hand placment , patient was challenged with descending steps with 1 rail /RHIA Moderate assist required , Min assist with ascending curb steps forward , instructed patient in ascending/ descending steps sideways with both hands on rail , patient was able to do steps with much more stabillity and less difficulty with going sideways. Patient and patient's have good understanding method. Car Transfer Blank velazquez indicate activity not attempted General Deviations/Observati ons: Antalgic gait, Rosa decreased, Flexed trunk posture Balance: Static Sitting, Dynamic Sitting, Static Standing, Dynamic Standing Static Sitting Balance: Normal Patient able to maintain steady balance without handhold support Dynamic Sitting Balance: Good Patient accepts moderate challenge, able to maintain balance while picking up object off floor Static S (more content not included)... Normal [facility] THERAPY NT HNO ID: [id number] Author: Zeny Maher OTR/L Service: Occupational Therapy Author Type: Occupational Therapist Type: Therapy (PT/OT/Speech/Resp) Filed: 02/10/2023 9:31 AM Note Text: Occupational Therapy Evaluation SERVICE DATE: 02/10/2023 SERVICE TIME: 855 to 921 ROOM: [id number] Recommended Discharge Disposition: Home Recommended Discharge Disposition Comments: Anticipate home with family assist initially. Anticipated Discharge Needs: Physical Assist at Home Physical Assist at Home for: Laundry, Cleaning, Meals, Transportation OT 6 Clicks Score: 20 Ed re: safety with bed mobility, functional use of wheeled walker, toileting/transfers and safety with wheeled walker use. Pt receptive. Demos good functional mobility with wheeled walker and is motivated to return home. Reports bilateral LE pain is much better when compared to yesterday. Somewhat shortness of breath during functional tasks. Ed re: energy conservation, work simplification techniques to maximize overall activity tolerance. Ed re: incorporation of AD use and taking rest breaks to maximize activity tolerance. Pt receptive. Spouse present and supportive. Precautions/Activity Restrictions: Fall Risk Current Hospital Course: 77 y/o M adm 02/07 with hematuria. Started on continuous bladder irrigation. Reason for Hospital Admission: hematuria Relevant Past Medical History: prostate cancer s/p prostatectomy and radiation, L knee OA s/p TKA Response to Therapy Interventions: Good Participation in Activities Continued Skilled Needs Due to: Functional Impairment Occupational Therapy Problem List: Impaired Self Care, Decreased Activity Tolerance Cognition/Communicat ion Deficits Responsiveness: Alert, Awake Follows Commands: 3-step Commands Executive Function Deficits: Safety Awareness Safety Awareness Deficit: Minimal impairment Treatment Interventions: Education, Self Care/Home Management, Functional Mobility Training Home Environment Patient Lives With: Spouse Assistance Available: 24-Hour Entry To Home: Stairs, With Rail Number Of Stairs Into Home: 2 Number Of Stairs To Bed/Bath: 0 Tub/Shower Type: walk in with seat Laundry: spouse can assist Equipment Owned: Walker- Wheeled, Wheelchair- Manual, Shower Chair, Grab Bars- Shower Prior Functional Level: Within Functional Limits Prior Functional Level Comments: 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 Independent with mobility without AD, denies any recent falls. 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 Occupational Factors Life Roles: Spouse/Significant Other, Friend, Employed, Family Member Identified Strengths: Good Support System, Motivation Subjective: Awake, agreeable to OT session CURRENT FUNCTIONAL STATUS: Most recent performance Current Activities of Daily Living Assist Level Additional Information Feeding Independent Grooming Independent Bathing Upper Body Set Up Bathing Lower Body Minimal Assistance Dressing Upper Body Set Up Dressing Lower Body Minimal Assistance Toileting Contact Guard Assistance Instrumental Activities of Daily Living Assist Level Additional Information Meal/Beverage Prep Cleaning Laundry Medication Management with Strategies Functional Mobility Assist Level Additional Information Rolling Supine to Sit Supervision Sit to Supine Supervision Scooting Sit to Stand Minimal Assistance Stand to Sit Minimal Assistance Bed to Chair Contact Guard Assistance Stepping Wheeled Walker Toilet/Commode Contact Guard Assistance Shower Functional Mobility Contact Guard Assistance Wheeled Walker Blank velazquez indicate activity not attempted Range of Motion: WFL Strength: WFL Vision Deficits: Wears corrective lenses Balance: Dynamic Standing Dynamic Standing Balance: Fair Patient accepts minimal challenge, able to maintain balance while turning head/trunk Learning/Educational Needs: Safety, Self Care, Functional Activities/Mobility Goals for Plan of Care: Patient/Caregiver Goals: Participate in meaningful activities, Reduce ADL/IADL barriers Lower Body Bathing with: Independent Lower Body Dressing with: Independent Toilet Hygiene with: Independent Toilet Transfer with: Independent Tolerate (minutes of functional activity): 20 Functional Activity with: Modified Independent Demonstrate Competence with Education with: Independent (energy conservation, work simplification) Rehab Potential: Good Patient will be discontinued from Occupational Therapy when no further skilled needs are identified in this setting. PLAN: OT Frequency: 2 Times Per Week Plan of Care developed with: Patient TREATMENT INTERVENTIONS: Therapy Diagnosis: Reduced mobility-other, Decreased activities of daily living (ADL) Interventions Provided: Evaluation, Self Fdc Management (87844) $ Evalu (more content not included)... Normal [facility] Basic metabolic 2000 panelon 02-09-2023 Anion gap [Moles/Vol] 11 mmol/L Normal 9-18 [facility] Comment on above: Order Comment: Speci men Type: BLOOD SPECIMEN [facility] Address: [address] [place] [id number] Performed By: #### 2 4321-2 #### [facility] CLIA [id number] [address] [place] [address] [place] Calcium [Mass/Vol] 8.4 mg/dL Low 8.5-10.2 [facility] Comment on above: Order Comment: Speci men Type: BLOOD SPECIMEN [facility] Address: [address] [place] [address] Performed By: #### 2 4321-2 #### [facility] CLIA [id number] [address] [place] Chloride [Moles/Vol] 103 mmol/L Normal 97-105 [facility] Comment on above: Order Comment: Speci men Type: BLOOD SPECIMEN [facility] Address: [address] [place] [address] Performed By: #### 2 4321-2 #### [facility] CLIA [id number] [address] [place] CO2 [Moles/Vol] 20 mmol/L Low 22-30 [facility] Comment on above: Order Comment: Speci men Type: BLOOD SPECIMEN [facility] Address: [address] [place] [address] Performed By: #### 2 4321-2 #### [facility] CLIA [id number] [address] [place] Creatinine [Mass/Vol] 1.17 mg/dL Normal 0.73-1.22 [facility] Comment on above: Order Comment: Speci men Type: BLOOD SPECIMEN [facility] Address: [address] [place] [address] Performed By: #### 2 4321-2 #### [facility] CLIA [id number] [address] Creatinine and Glomerular filtration rate.predicted panel (S/P/Bld) 65 mL/min/1.73m??? Normal >=60 [facility] Comment on above: Order Comment: Speci men Type: BLOOD SPECIMEN [facility] Address: [address] [place] [address] Result Comment: Christy mated Glomerular Filtration Rate (eGFR) is calculated using the 2020 CKD-EPI creatinine equation. This equation utilizes serum creatinine, sex, and age as parameters. The creatinine assay has traceable calibration to isotope dilution-mass spectrometry. Refer to KDIGO guidelines for clinical interpretation. In patients with unstable renal function, e.g. those with acute kidney injury, the eGFR may not accurately reflect actual GFR. Performed By: #### 2 4321-2 #### [facility] CLIA [id number] [address] [place] [address] [place] Glucose [Mass/Vol] 126 mg/dL High 74-99 [facility] Comment on above: Order Comment: Elisa dominique Type: BLOOD SPECIMEN [facility] Address: [address] [place] [address] Result Comment: The [place] [employer] (ADA) provides guidance for cutoff values for fasting glucose and random glucose. The ADA defines fasting as no caloric intake for at least 8 hours. Fasting plasma glucose results between 100 to 125 mg/dL indicate increased risk for diabetes (prediabetes). Fasting plasma glucose results greater than or equal to 126 mg/dL meet the criteria for diagnosis of diabetes. In the absence of unequivocal hyperglycemia, results should be confirmed by repeat testing. In a patient with classic symptoms of hyperglycemia or hyperglycemic crisis, random plasma glucose results greater than or equal to 200 mg/dL meet the criteria for diagnosis of diabetes. Reference: Standards of Medical Care in Diabetes 2016, [place] [employer]. Diabetes Care. 2016.39(Suppl 1). Performed By: #### 2 4321-2 #### [facility] CLIA [id number] 1 [place] [address] [place] Potassium [Moles/Vol] 4.0 mmol/L Normal 3.7-5.1 [facility] Comment on above: Order Comment: Elisa dominique Type: BLOOD SPECIMEN Ordering Facility: [facility] Address: [address] [address] Performed By: #### 2 4321-2 #### [facility] CLIA [id number] 1 [place] [address] [place] Sodium [Moles/Vol] 134 mmol/L Low 136-144 [facility] Comment on above: Order Comment: Elisa dominique Type: BLOOD SPECIMEN Ordering Facility: [facility] Address: [address] [address] Performed By: #### 2 4321-2 #### [facility] CLIA [id number] [address] Urea nitrogen [Mass/Vol] 16 mg/dL Normal 9-24 [facility] Comment on above: Order Comment: Speci men Type: BLOOD SPECIMEN Ordering Facility: [facility] Address: [address] [place] [address] Performed By: #### 2 4321-2 #### [facility] CLIA [id number] [address] CBC panel Auto (Bld)on 02-09 Erythrocyte distribution width (RBC) [Ratio] 12.5 % Normal 11.5-15.0 [facility] Comment on above: Order Comment: Speci men Type: BLOOD SPECIMEN Ordering Facility: [facility] Address: [address] [place] [address] Performed By: #### 5 8410-2 #### [facility] CLIA [id number] [address] Hematocrit (Bld) [Volume fraction] 31.5 % Low 39.0-51.0 [facility] Comment on above: Order Comment: Speci men Type: BLOOD SPECIMEN Ordering Facility: [facility] Address: [address] [place] [address] Performed By: #### 5 8410-2 #### [facility] CLIA [id number] [address] Hemoglobin (Bld) [Mass/Vol] 10.6 g/dL Low 13.0-17.0 [facility] Comment on above: Order Comment: Speci men Type: BLOOD SPECIMEN Ordering Facility: [facility] Address: [address] [place] [address] Performed By: #### 5 8410-2 #### [facility] CLIA [id number] [address] [place] MCH (RBC) [Entitic mass] 30.5 pg Normal 26.0-34.0 [facility] Comment on above: Order Comment: Speci men Type: BLOOD SPECIMEN Ordering Facility: [facility] Address: [address] [address] Performed By: #### 5 8410-2 #### [facility] CLIA [id number] [address] MCHC (RBC) [Mass/Vol] 33.7 g/dL Normal 30.5-36.0 [facility] Comment on above: Order Comment: Speci men Type: BLOOD SPECIMEN Ordering Facility: [facility] Address: [address] [place] [address] Performed By: #### 5 8410-2 #### [facility] CLIA [id number] [address] MCV (RBC) [Entitic vol] 90.8 fL Normal 80.0-100.0 [facility] Comment on above: Order Comment: Speci men Type: BLOOD SPECIMEN Ordering Facility: [facility] Address: [address] [place] [address] Performed By: #### 5 8410-2 #### [facility] CLIA [id number] [address] Nucleated RBC (Bld) [#/Vol] 10*3/uL Normal <0.01 [facility] Comment on above: Order Comment: Speci men Type: BLOOD SPECIMEN Ordering Facility: [facility] Address: [address] [place] [address] Performed By: #### 5 8410-2 #### [facility] CLIA [id number] [address] Platelet mean volume (Bld) [Entitic vol] 10.6 fL Normal 9.0-12.7 [facility] Comment on above: Order Comment: Speci men Type: BLOOD SPECIMEN Ordering Facility: [facility] Address: [address] [place] [address] Performed By: #### 5 8410-2 #### [facility] CLIA [id number] [address] [place] Platelets (Bld) [#/Vol] 211 10*3/uL Normal 150-400 [facility] Comment on above: Order Comment: Speci men Type: BLOOD SPECIMEN Ordering Facility: [facility] Address: [address] [place] [address] Performed By: #### 5 8410-2 #### [facility] CLIA [id number] 1 [place] [address] [place] RBC (Bld) [#/Vol] 3.47 10*6/uL Low 4.20-6.00 [facility] Comment on above: Order Comment: Speci men Type: BLOOD SPECIMEN Ordering Facility: [facility] Address: [address] [place] [address] Performed By: #### 5 8410-2 #### [facility] CLIA [id number] [address] WBC (Bld) [#/Vol] 9.87 10*3/uL Normal 3.70-11.00 [facility] Comment on above: Order Comment: Speci men Type: BLOOD SPECIMEN Ordering Facility: [facility] Address: [address] [place] [address] Performed By: #### 5 8410-2 #### [facility] CLIA [id number] [address] CONSULTon 02-09-2023 CONSULT HNO ID: [id number] Author: Meng Hollins MD Service: General Surgery Author Type: Physician Type: Consults Filed: 02/09/2023 5:06 PM Note Text: HBO Note: I was asked to see this patient about 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 Pt looks to be improving and this treatment is generally given as an outpatient. The patient lives in [facility], near to [place], and I recommend that he see his local urologist and then be evaluated by the [facility] HBO unit. He would need daily treatments and the amount of travel would make it very hard to be treated here. We did discuss the treatment and what it does and what to expect, so he is aware of it. Please call if there are any other questions. Meng Hollins MD [facility] ECG COMPLETEon 02-09-2023 ECG COMPLETE Ventricular Rate : 98 BPM Atrial Rate : 98 BPM P-R Interval : 188 ms QRS Duration : 90 ms Q-T Interval : 330 ms QTC Calculation(Bazett) : 421 ms Calculated P [place] : 42 degrees Calculated R [place] : 44 degrees Calculated T [place] : 38 degrees SINUS RHYTHM WITH PREMATURE ATRIAL COMPLEXES OTHERWISE NORMAL ECG NO PREVIOUS ECGS AVAILABLE Confirmed by MD MARTINEZ YASSAR ([id number]) on 02/13/2023 11:38:54 PM NAME : BARBARA MILAN PID : [id number] : 1945 Gender : Male Race : ORD : [id number] Procedure Date : Feb 09 2023 10:57:16 Edit Date : Feb 13 2023 23:38:57 Diagnosis: SINUS RHYTHM WITH PREMATURE ATRIAL COMPLEXES OTHERWISE NORMAL ECG NO PREVIOUS ECGS AVAILABLE Confirmed by MD MARTINEZ YASSAR ([id number]) on 02/13/2023 11:38:54 PM Test Reason : Tachycardia Location : 51 : [id number] Overread By : MD MARTINEZ YASSAR Edited By : MD MARTINEZ YASSAR Referred By : , Acquired by : JAYLA JUNE [facility] NURSING PROGon 02-09-2023 NURSING PROG HNO ID: [id number] Author: Drea Son RN Service: ? Author Type: Registered Nurse Type: Nursing Progress Note Filed: 02/09/2023 5:11 PM Note Text: This RN called US tech due to stat US needing to be completed. She stated she is behind but will be done today. [facility] NURSING PROG HNO ID: [id number] Author: Drea Son RN Service: ? Author Type: Registered Nurse Type: Nursing Progress Note Filed: 02/09/2023 3:46 PM Note Text: Patient called this RN into room with complaints of increasing BL feet pain. Secure chat to Dr Cortez Carrasquillo. Dr Wills at bedside to evaluate. New orders placed. [facility] NURSING PROG HNO ID: [id number] Author: Ruth Mccormick, [place] Service: ? Author Type: Registered Nurse Type: Nursing Progress Note Filed: 02/09/2023 7:03 AM Note Text: Spoke to Mila from Gen Surg and made him aware of pt bs of 281 and how pt has been vomiting all night and is npo and the sliding scale is calling for pt to get 9units of humalog. I was instructed to hold at this time . Pt is in his room with his resting at this time . Normal [facility] THERAPY NTon 02-09-2023 THERAPY NT HNO ID: [id number] Author: Miladys Gee, PT Service: Physical Therapy Author Type: Physical Therapist Type: Therapy (PT/OT/Speech/Resp) Filed: 02/09/2023 3:11 PM Note Text: Physical Therapy Evaluation SERVICE DATE: 02/09/2023 SERVICE TIME: 1402 to 1430 ROOM: [address] [address] Recommended Discharge Disposition: Home PT Recommended Discharge Disposition Comments: Discussed with pt and he could potentially qualify for SNF based on how he is mobilizing vs home with home PT. Pt and are more amenable to home PT. is with him / and is able to assist as needed. PT 6 Clicks Score: 18 Pt was evaluated today. He was limited by new onset of bilateral foot and ankle pain. Reports there is associated numbness and tingling. He had a lot of pain with even resting his feet on the floor when he was sitting up at the edge of the bed. He demonstrates reduced ankle dorsiflexion, worse on his L ankle. 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 He is now requiring use of a walker due to the pain which is also causing some unsteadiness. Encouraged pt and his to let his doctor know about this. Precautions/Activity Restrictions: Fall Risk Current Hospital Course: 77 y/o M adm 02/07 with hematuria. Started on continuous bladder irrigation. Reason for Hospital Admission: hematuria Relevant Past Medical History: prostate cancer s/p prostatectomy and radiation, L knee OA s/p TKA Response to Therapy Interventions: Good Participation in Activities Continued Skilled Needs Due to: Functional Mobility/Skill Impairments, Safety Concerns Physical Therapy Problem List: Pain, Safety Deficits, Impaired Self Care, Decreased Activity Tolerance, Decreased Range Of Motion, Decreased Strength, Functional Mobility Impairment, Balance Impaired Treatment Interventions: Education, Strengthening, Functional Mobility Training, Balance Training, Neuromuscular Re-education Plan for Next Visit: Fall Prevention, Gait Training, Exercise Instruction/Handout, Sit to Stand Transfers, Standing Balance, Standing Tolerance, Stair Training Home Environment Patient Lives With: Spouse Assistance Available: 24-Hour Entry To Home: Stairs, With Rail Number Of Stairs Into Home: 2 Number Of Stairs To Bed/Bath: 0 Equipment Owned: Other: See Comment (Borrowing a walker and wheelchair.) Prior Functional Level: Within Functional Limits Prior Functional Level Comments: 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 Independent with mobility without AD, denies any recent falls. Subjective: Pt is agreeable to PT CURRENT FUNCTIONAL STATUS: Most recent performance Current Functional Mobility Assist Level Additional Information Rolling Supine to Sit Supervision, Additional Information HOB elevated, pt used siderails, increased time and effort to complete this transition, cues for technique Sit to Supine Scooting Supervision Sit to Stand Minimal Assistance, Additional Information assist to boost to standing, cues for hand placement due to new use of a walker Stand to Sit Minimal Assistance, Additional Information assist to control descent to sitting, cues for hand placement, pt slightly lost his balance backwards with initial sitting, but then was able to correct balance. Bed to Chair Toilet/Commode Gait Minimal Assistance, Additional Information Gait Device: Wheeled Walker Gait Distance (feet): 50 Shoes donned prior to ambulation per pt request. Pt had a posterior LOB within his first few steps. After this he improved some. Pt initially walking too close to the front of the walker. Distance limited by bilateral foot pain and pt subsequently becoming SOB, having to stop intermittently to recover his breathing. Stairs Curb Step Car Transfer Blank velazquez indicate activity not attempted General Deviations/Observati ons: Antalgic gait, Rosa decreased, Flexed trunk posture Range of Motion: ROM Limitation Comments ROM Limitation Comments: B/L hip and knee ROM is WFL's; B/L ankle AROM is limited and painful Strength: Strength Limitation Comments Strength Limitation Comments: B/L hip and knee strength is 4+/5, R ankle DF is 3/5, L ankle DF is 2+/5. Ankle MMT limited secondary to ankle/foot pain. Balance: Static Sitting, Dynamic Sitting, Static Standing, Dynamic Standing Static Sitting Balance: Normal Patient able to maintain steady balance without handhold support Dynamic Sitting Balance: Good Patient accepts moderate challenge, able to maintain balance while picking up object off floor Static Standing Balance: Fair Patient able to maintain balance with handhold support, may require occasional minimal assistance Dynamic Standing Balance: Poor Patient unable to accept challenge or move without loss of balance JH-HLM: 7: Walk 25 feet or more Learning/Educational Needs: Functional Activities/Mobility, PT In-H (more content not included)... Normal [facility] US DVT LOWER BILon 3 US DVT LOWER QUENTIN * * *Final Report* * * DATE OF EXAM: Feb 09 2023 6:16PM [facility] 1005 - US DVT LOWER QUENTIN / PROCEDURE REASON: Leg deep vein thrombosis (DVT), new symptoms * * * * Physician Interpretation * * * * EXAMINATION: RIGHT AND LEFT LOWER EXTREMITY DEEP VENOUS ULTRASOUND WITH DOPPLER IMAGING CLINICAL HISTORY: Lower extremity swelling TECHNIQUE: Grayscale with compression maneuvers, color Doppler and spectral Doppler imaging of the right and left proximal deep veins was performed. Grayscale with compression maneuvers of the right and left peroneal and posterior tibial veins was performed. The right and left great and small saphenous veins were evaluated at their insertion to the deep system. Images were obtained and stored in a permanent archive. MQ: [id number] COMPARISON: None RESULT: RIGHT LOWER EXTREMITY PROXIMAL DEEP VEINS Distal External Iliac, Common Femoral and Proximal Profunda Veins: Compression: Normal Doppler: Normal, spontaneous respirophasic flow. Normal response to augmentation. Femoral vein: Compression: Normal Doppler: Normal, spontaneous respirophasic flow. Normal response to augmentation. Popliteal vein: Compression: Normal Doppler: Normal, spontaneous respirophasic flow. Normal response to augmentation. CALF DEEP VEINS Peroneal veins: Normal compression. Posterior tibial veins: Normal compression. Gastrocnemius and Soleal veins: Not imaged. SUPERFICIAL VEINS Great saphenous: Patent and compressible at insertion into common femoral vein; not otherwise assessed. Small Saphenous: Patent and compressible in the proximal calf, not otherwise assessed. LEFT LOWER EXTREMITY PROXIMAL DEEP VEINS Distal External Iliac, Common Femoral and Proximal Profunda Veins: Compression: Normal Doppler: Normal, spontaneous respirophasic flow. Normal response to augmentation. Femoral vein: Compression: Normal Doppler: Normal, spontaneous respirophasic flow. Normal response to augmentation. Popliteal vein: Compression: Normal Doppler: Normal, spontaneous respirophasic flow. Normal response to augmentation. CALF DEEP VEINS Peroneal veins: Normal compression. Posterior tibial veins: Normal compression. Gastrocnemius and Soleal veins: Not imaged. SUPERFICIAL VEINS Great saphenous: Patent and compressible at insertion into common femoral vein; not otherwise assessed. Small Saphenous: Patent and compressible in the proximal calf, not otherwise assessed. IMPRESSION: Negative study for proximal DVT in the left and right lower extremities. Negative study for calf DVT in the left and right lower extremities. Negative study for superficial thrombophlebitis in the imaged segments of the left and right lower extremities. Mat Sewer: PSCB Transcribe Date/Time: Feb 09 2023 6:24P Dictated by : JORGE ALBERTO YOO MD This examination was interpreted and the report reviewed and electronically signed by: JORGE ALBERTO YOO MD on Feb 09 2023 6:24PM EST [id number] Normal [facility] Basic metabolic 2000 panelon 02-08-2023 Anion gap [Moles/Vol] 10 mmol/L Normal 9-18 [facility] Comment on above: Order Comment: [facility]i [facility] Type: BLOOD SPECIMEN Ordering Facility: [facility] Address: [address] [address] Performed By: #### 2 4321-2 #### [facility] CLIA [id number] 1 [place] [address] [place] Calcium [Mass/Vol] 8.6 mg/dL Normal 8.5-10.2 [facility] Comment on above: Order Comment: [facility]i [facility] Type: BLOOD SPECIMEN Ordering Facility: [facility] Address: [address] [address] Performed By: #### 2 4321-2 #### [facility] CLIA [id number] 1 [place] [address] [place] Chloride [Moles/Vol] 102 mmol/L Normal 97-105 [facility] Comment on above: Order Comment: [facility] Type: BLOOD SPECIMEN Ordering Facility: [facility] Address: [address] [address] Performed By: #### 2 4321-2 #### [facility] CLIA [id number] [address] [facility] CO2 [Moles/Vol] 20 mmol/L Low 22-30 [facility] Comment on above: Order Comment: Speci men Type: BLOOD SPECIMEN Ordering Facility: [facility] Address: [address] [place] [address] Performed By: #### 2 4321-2 #### [facility] CLIA [id number] [address] Creatinine [Mass/Vol] 1.13 mg/dL Normal 0.73-1.22 [facility] Comment on above: Order Comment: Speci men Type: BLOOD SPECIMEN Ordering Facility: [facility] Address: [address] [place] [address] Performed By: #### 2 4321-2 #### [facility] CLIA [id number] [address] Creatinine and Glomerular filtration rate.predicted panel (S/P/Bld) 68 mL/min/1.73m??? Normal >=60 [facility] Comment on above: Order Comment: Speci men Type: BLOOD SPECIMEN Ordering Facility: [facility] Address: [address] [place] [address] Result Comment: Christy mated Glomerular Filtration Rate (eGFR) is calculated using the 2020 CKD-EPI creatinine equation. This equation utilizes serum creatinine, sex, and age as parameters. The creatinine assay has traceable calibration to isotope dilution-mass spectrometry. Refer to KDIGO guidelines for clinical interpretation. In patients with unstable renal function, e.g. those with acute kidney injury, the eGFR may not accurately reflect actual GFR. Performed By: #### 2 4321-2 #### [facility] CLIA [id number] [address] Glucose [Mass/Vol] 101 mg/dL High 74-99 [facility] Comment on above: Order Comment: Speci men Type: BLOOD SPECIMEN Ordering Facility: [facility] Address: [address] [place] [address] Result Comment: The [place] Diabetes [employer] (ADA) provides guidance for cutoff values for fasting glucose and random glucose. The ADA defines fasting as no caloric intake for at least 8 hours. Fasting plasma glucose results between 100 to 125 mg/dL indicate increased risk for diabetes (prediabetes). Fasting plasma glucose results greater than or equal to 126 mg/dL meet the criteria for diagnosis of diabetes. In the absence of unequivocal hyperglycemia, results should be confirmed by repeat testing. In a patient with classic symptoms of hyperglycemia or hyperglycemic crisis, random plasma glucose results greater than or equal to 200 mg/dL meet the criteria for diagnosis of diabetes. Reference: Standards of Medical Care in Diabetes 2016, [place] [employer]. Diabetes Care. 2016.39(Suppl 1). Performed By: #### 2 4321-2 #### [facility] CLIA [id number] [address] Potassium [Moles/Vol] 4.1 mmol/L Normal 3.7-5.1 [facility] Comment on above: Order Comment: Specjoseline dominique Type: BLOOD SPECIMEN Ordering Facility: [facility] Address: [address] [address] Performed By: #### 2 1-2 #### [facility] CLIA [id number] [address] [place] [address] Sodium [Moles/Vol] 132 mmol/L Low 136-144 [facility] Comment on above: Order Comment: Elisa dominique Type: BLOOD SPECIMEN Ordering Facility: [facility] Address: [address] [address] Performed By: #### 2 4321-2 #### [facility] CLIA [id number] [address] Urea nitrogen [Mass/Vol] 16 mg/dL Normal 9-24 [facility] Comment on above: Order Comment: Elisa dominique Type: BLOOD SPECIMEN Ordering Facility: [facility] Address: [address] [address] Performed By: #### 2 4321-2 #### [facility] CLIA [id number] [address] CBC panel Auto (Bld)on 02-08 Erythrocyte distribution width (RBC) [Ratio] 12.4 % Normal 11.5-15.0 [facility] Comment on above: Order Comment: Speci men Type: BLOOD SPECIMEN Ordering Facility: [facility] Address: [address] [place] [address] Performed By: #### 2 4321-2 #### [facility] CLIA [id number] [address] Hematocrit (Bld) [Volume fraction] 34.0 % Low 39.0-51.0 [facility] Comment on above: Order Comment: Speci men Type: BLOOD SPECIMEN Ordering Facility: [facility] Address: [address] [place] [address] Performed By: #### 2 4321-2 #### [facility] CLIA [id number] [address] Hemoglobin (Bld) [Mass/Vol] 11.6 g/dL Low 13.0-17.0 [facility] Comment on above: Order Comment: Speci men Type: BLOOD SPECIMEN Ordering Facility: [facility] Address: [address] [place] [address] Performed By: #### 2 4321-2 #### [facility] CLIA [id number] [address] MCH (RBC) [Entitic mass] 30.8 pg Normal 26.0-34.0 [facility] Comment on above: Order Comment: Speci men Type: BLOOD SPECIMEN Ordering Facility: [facility] Address: [address] [place] [address] Performed By: #### 2 4321-2 #### [facility] CLIA [id number] [address] MCHC (RBC) [Mass/Vol] 34.1 g/dL Normal 30.5-36.0 [facility] Comment on above: Order Comment: Speci men Type: BLOOD SPECIMEN Ordering Facility: [facility] Address: [address] [address] Performed By: #### 2 4321-2 #### [facility] CLIA [id number] [address] MCV (RBC) [Entitic vol] 90.2 fL Normal 80.0-100.0 [facility] Comment on above: Order Comment: Speci men Type: BLOOD SPECIMEN Ordering Facility: [facility] Address: [address] [address] Performed By: #### 2 4321-2 #### [facility] CLIA [id number] [address] Nucleated RBC (Bld) [#/Vol] 10*3/uL Normal <0.01 [facility] Comment on above: Order Comment: Speci men Type: BLOOD SPECIMEN Ordering Facility: [facility] Address: [address] [address] Performed By: #### 2 1-2 #### [facility] CLIA [id number] [address] Platelet mean volume (Bld) [Entitic vol] 11.5 fL Normal 9.0-12.7 [facility] Comment on above: Order Comment: Speci men Type: BLOOD SPECIMEN Ordering Facility: [facility] Address: [address] [address] Performed By: #### 2 4321-2 #### [facility] CLIA [id number] [address] Platelets (Bld) [#/Vol] 236 10*3/uL Normal 150-400 [facility] Comment on above: Order Comment: Speci men Type: BLOOD SPECIMEN Ordering Facility: [facility] Address: [address] [address] Performed By: #### 2 4321-2 #### [facility] CLIA [id number] [address] [place] RBC (Bld) [#/Vol] 3.77 10*6/uL Low 4.20-6.00 [facility] Comment on above: Order Comment: Speci men Type: BLOOD SPECIMEN Ordering Facility: [facility] Address: [address] [place] [address] Performed By: #### 2 4321-2 #### [facility] CLIA [id number] 1 [place] [address] [place] WBC (Bld) [#/Vol] 8.28 10*3/uL Normal 3.70-11.00 [facility] Comment on above: Order Comment: Speci men Type: BLOOD SPECIMEN Ordering Facility: [facility] Address: [address] [place] [address] Performed By: #### 2 4321-2 #### [facility] CLIA [id number] [address] [place] Absolute lymphocyte countOrd ered By: Neo Alcaraz on 02-07-2023 Lymphocytes Auto (Unsp spec) [#/Vol] 0.65 10*3/uL 0.83-4.51 [facility] Basic metabolic 2000 panelon 02-07-2023 Anion gap [Moles/Vol] 12 mmol/L Normal 9-18 [facility] Comment on above: Order Comment: Speci men Type: BLOOD SPECIMEN Ordering Facility: [facility] Address: [address] [place] [address] Performed By: #### 2 4321-2 #### [facility] CLIA [id number] 1 [place] [address] [place] Calcium [Mass/Vol] 8.3 mg/dL Low 8.5-10.2 [facility] Comment on above: Order Comment: Speci men Type: BLOOD SPECIMEN Ordering Facility: [facility] Address: [address] [place] [address] Performed By: #### 2 4321-2 #### [facility] CLIA [id number] 1 [place] [address] [place] Chloride [Moles/Vol] 106 mmol/L High 97-105 [facility] Comment on above: Order Comment: Speci men Type: BLOOD SPECIMEN Ordering Facility: [facility] Address: [address] [address] Performed By: #### 2 4321-2 #### [facility] CLIA [id number] [address] [facility] CO2 [Moles/Vol] 18 mmol/L Low 22-30 [facility] Comment on above: Order Comment: Speci men Type: BLOOD SPECIMEN Ordering Facility: [facility] Address: [address] [address] Performed By: #### 2 4321-2 #### [facility] CLIA [id number] [address] [place] Creatinine [Mass/Vol] 1.21 mg/dL Normal 0.73-1.22 [facility] Comment on above: Order Comment: Speci men Type: BLOOD SPECIMEN Ordering Facility: [facility] Address: [address] [place] [address] Performed By: #### 2 4321-2 #### [facility] CLIA [id number] [address] Creatinine and Glomerular filtration rate.predicted panel (S/P/Bld) 62 mL/min/1.73m??? Normal >=60 [facility] Comment on above: Order Comment: Speci men Type: BLOOD SPECIMEN Ordering Facility: [facility] Address: [address] [place] [address] Result Comment: Christy mated Glomerular Filtration Rate (eGFR) is calculated using the 2020 CKD-EPI creatinine equation. This equation utilizes serum creatinine, sex, and age as parameters. The creatinine assay has traceable calibration to isotope dilution-mass spectrometry. Refer to KDIGO guidelines for clinical interpretation. In patients with unstable renal function, e.g. those with acute kidney injury, the eGFR may not accurately reflect actual GFR. Performed By: #### 2 4321-2 #### [facility] CLIA [id number] [address] [place] Glucose [Mass/Vol] 116 mg/dL High 74-99 [facility] Comment on above: Order Comment: Elisa dominique Type: BLOOD SPECIMEN Ordering Facility: [facility] Address: [address] [place] [address] Result Comment: The [place] Diabetes [employer] (ADA) provides guidance for cutoff values for fasting glucose and random glucose. The ADA defines fasting as no caloric intake for at least 8 hours. Fasting plasma glucose results between 100 to 125 mg/dL indicate increased risk for diabetes (prediabetes). Fasting plasma glucose results greater than or equal to 126 mg/dL meet the criteria for diagnosis of diabetes. In the absence of unequivocal hyperglycemia, results should be confirmed by repeat testing. In a patient with classic symptoms of hyperglycemia or hyperglycemic crisis, random plasma glucose results greater than or equal to 200 mg/dL meet the criteria for diagnosis of diabetes. Reference: Standards of Medical Care in Diabetes 2016, [place] [employer]. Diabetes Care. 2016.39(Suppl 1). Performed By: #### 2 4321-2 #### [facility] CLIA [id number] 1 [place] [address] [place] Potassium [Moles/Vol] 4.1 mmol/L Normal 3.7-5.1 [facility] Comment on above: Order Comment: Elisa dominique Type: BLOOD SPECIMEN Ordering Facility: [facility] Address: [address] [place] [address] Performed By: #### 2 1-2 #### [facility] CLIA [id number] [address] [place] Sodium [Moles/Vol] 136 mmol/L Normal 136-144 [facility] Comment on above: Order Comment: Elisa dominique Type: BLOOD SPECIMEN Ordering Facility: [facility] Address: [address] [address] Performed By: #### 2 4321-2 #### [facility] CLIA [id number] [address] [place] Urea nitrogen [Mass/Vol] 18 mg/dL Normal 9-24 [facility] Comment on above: Order Comment: Elisa dominique Type: BLOOD SPECIMEN Ordering Facility: [facility] Address: [address] [address] Performed By: #### 2 4321-2 #### [facility] CLIA [id number] [address] [facility] Basophil percentageOrdered B y: Neo Alcaraz on 02-07-2023 Basophils/100 WBC (Bld) 0.4 % 0-1 [facility] Chloride [Moles/Vol] 110 mmol/L 98-107 [facility] Eosinophils/100 WBC (Bld) 2.3 % 0-5 [facility] Glucose [Mass/Vol] 113 mg/dL 74-106 [facility] Comment on above: Fasting Glucose resu lt from 100 to 125 mg/dL suggests IMPAIRED HOMEOSTASIS per A.D.A. criteria. Neutrophils (Bld) [#/Vol] 7.3 10*3/uL 2.0-7.7 [facility] Neutrophils/100 WBC (Bld) 80.6 % 47-70 [facility] Potassium [Moles/Vol] 3.9 mmol/L 3.5-5.1 [facility] Sodium [Moles/Vol] 137 mmol/L 136-145 [facility] WBC (Bld) [#/Vol] 9.1 10*3/uL 4.4-11.0 [facility] Blood erythrocytes count (nu mber/volume)Ordered By: Noe Alcaraz on 02-07-2023 RBC (Bld) [#/Vol] 4.19 10*6/uL 4.6-6.2 [facility] Blood hemoglobin measurement (mass/volume)Ordered By: Neo Alcaraz on 02-07-2023 Hemoglobin (Bld) [Mass/Vol] 12.8 g/dL 13.0-16.5 [facility] Blood lymphocytes/100 leukoc ytesOrdered By: Neo Alcaraz on 02-07-2023 Lymphocytes/100 WBC (Bld) 7.2 % 19-41 [facility] Blood monocytes/100 leukocyt esOrdered By: Neo Alcaraz on 02-07-2023 Monocytes/100 WBC (Bld) 8.9 % 0-10 [facility] Blood platelet mean volumeOr dered By: Neo Alcaraz on 02-07-2023 Platelet mean volume (Bld) [Entitic vol] 10.6 fL 6.2-12.0 [facility] CBC panel Auto (Bld)on 02-07 Erythrocyte distribution width (RBC) [Ratio] 12.3 % Normal 11.5-15.0 [facility] Comment on above: Order Comment: Speci men Type: BLOOD SPECIMEN Ordering Facility: [facility] Address: [address] [place] [address] Performed By: #### 5 8410-2 #### [facility] CLIA [id number] [address] Hematocrit (Bld) [Volume fraction] 37.5 % Low 39.0-51.0 [facility] Comment on above: Order Comment: Speci men Type: BLOOD SPECIMEN Ordering Facility: [facility] Address: [address] [place] [address] Performed By: #### 5 8410-2 #### [facility] CLIA [id number] [address] [facility] Hemoglobin (Bld) [Mass/Vol] 12.2 g/dL Low 13.0-17.0 [facility] Comment on above: Order Comment: Speci men Type: BLOOD SPECIMEN Ordering Facility: [facility] Address: [address] [place] [address] Performed By: #### 5 8410-2 #### [facility] CLIA [id number] [address] MCH (RBC) [Entitic mass] 30.8 pg Normal 26.0-34.0 [facility] Comment on above: Order Comment: Speci men Type: BLOOD SPECIMEN Ordering Facility: [facility] Address: [address] [place] [address] Performed By: #### 5 8410-2 #### [facility] CLIA [id number] [address] MCHC (RBC) [Mass/Vol] 32.5 g/dL Normal 30.5-36.0 [facility] Comment on above: Order Comment: Speci men Type: BLOOD SPECIMEN Ordering Facility: [facility] Address: [address] [address] Performed By: #### 5 8410-2 #### [facility] CLIA [id number] [address] MCV (RBC) [Entitic vol] 94.7 fL Normal 80.0-100.0 [facility] Comment on above: Order Comment: Speci men Type: BLOOD SPECIMEN Ordering Facility: [facility] Address: [address] [address] Performed By: #### 5 8410-2 #### [facility] CLIA [id number] [address] Nucleated RBC (Bld) [#/Vol] 10*3/uL Normal <0.01 [facility] Comment on above: Order Comment: Speci men Type: BLOOD SPECIMEN Ordering Facility: [facility] Address: [address] [address] Performed By: #### 5 8410-2 #### [facility] CLIA [id number] [address] Platelet mean volume (Bld) [Entitic vol] 11.0 fL Normal 9.0-12.7 [facility] Comment on above: Order Comment: Speci men Type: BLOOD SPECIMEN Ordering Facility: [facility] Address: [address] [address] Performed By: #### 5 8410-2 #### [facility] CLIA [id number] [address] Platelets (Bld) [#/Vol] 165 10*3/uL Normal 150-400 [facility] Comment on above: Order Comment: Speci men Type: BLOOD SPECIMEN Ordering Facility: [facility] Address: [address] [address] Performed By: #### 5 8410-2 #### [facility] CLIA [id number] [address] [place] RBC (Bld) [#/Vol] 3.96 10*6/uL Low 4.20-6.00 [facility] Comment on above: Order Comment: Speci men Type: BLOOD SPECIMEN Ordering Facility: [facility] Address: [address] [id number] Performed By: #### 5 8410-2 #### [facility] CLIA [id number] [address] WBC (Bld) [#/Vol] 7.55 10*3/uL Normal 3.70-11.00 [facility] Comment on above: Order Comment: Speci men Type: BLOOD SPECIMEN Ordering Facility: [facility] Address: [address] [id number] Performed By: #### 5 8410-2 #### [facility] CLIA [id number] [address] CONSULTon 02-07-2023 CONSULT HNO ID: [id number] Author: Jose Mcneil MD Service: Urology Author Type: Physician Type: Consults Filed: 02/08/2023 11:12 AM Note Text: Urology Inpatient Consultation 02/07/2023 HISTORY OF PRESENT ILLNESS: The patient is a 77 year old male new to our service and admitted for gross hematuria. Urology consulted for management. 3-way unable to be placed at OSH, 18F coude was placed with ease and manually irrigated but hematuria unable to be completely cleared. Upon evaluation, patient states he had a prostatectomy in 2011 for Claudine 4+5=9 therapeutic dietitian and he needed additional radiation in 2016. A couple years ago had hematuria requiring cautery of prostate in OR. Developed clot retention requiring worthy catheter placement mid last week -- worthy kept clotting off, leading to ER presentation. In the normal sterile fashion, resident irrigated worthy for red urine and some clots. 18F worthy removed and attempted to placed a 24F simplastic but met resistance. A 0.035 wire was placed and urethra was dilated 20-24F. Then placed a 22-F 3 way catheter at the bedside and irrigated for 2000 ml. Initially for red urine and ending with clear light pink urine. CBI was started. ED/Hospital workup Cr 1.21 WBC 7.55 HGB 12.2 UA ordered AF HDS PAST MEDICAL HISTORY: PAST MEDICAL HISTORY Diagnosis Date Benign neoplasm of colon Diverticulosis of colon (without mention of hemorrhage) Elevated prostate specific antigen (PSA) Essential hypertension, benign Internal hemorrhoids without mention of complication Osteoarthrosis, unspecified whether generalized or localized, unspecified site LEFT KNEE Prostate cancer (HCC) Snoring PAST SURGICAL HISTORY: PAST SURGICAL HISTORY Procedure Laterality Date COLONOSCOP W/ OR W/O BRSH SPEC 11/21/15 Colonoscopy COLONOSCOPY W/BX 10/03/06 PROSTATE BIOPSY 09/11 Dr Figueredo REMOVE TONSILS/ADENOIDS,<12 Y/O ROBOTIC SURGERY PROCEDURE 09/01/2011 prostatectomy. TOTAL KNEE REPLACEMENT Left 02/2013 Knee replacement, total ALLERGIES: ALLERGIES Allergen Reactions Atenolol Unknown Hydrochlorothiazide Unknown Indocin [Indomethac* GI Upset Losartan Potassium Hives Sulfa (Sulfonamide * Hives HOME MEDICATIONS: (Not in a hospital admission) FAMILY HISTORY: FAMILY HISTORY Problem Relation Age of Onset Hypertension Mother Stroke Father Social History: Tobacco Use: Never Alcohol Use: No ROS: Constitutional: negative for chills and fevers HEENT: no blurry vision or eye redness Respiratory: negative for hemoptysis and shortness of breath Cardiovascular: negative for dyspnea and syncope Gastrointestinal: negative for jaundice, nausea and vomiting Genitourinary:negati ve for dysuria, pos hematuria Hematologic/lymphati c: negative for bleeding Integumentary: no new bruises or lesions Musculoskeletal:nega tive for muscle weakness Neurological: negative for coordination problems and seizures All other systems negative PHYSICAL EXAM: VITALS: 02/07/23 1808 BP: 141/77 Pulse: (!) 93 Resp: 20 Temp: 36.5 ?C (97.7 ?F) SpO2: 96% Weight: 88.5 kg (195 lb) Height: 177.8 cm (5' 10) General: Alert, in no acute distress Head: Normocephalic, atraumatic Neck: supple, trachea is midline, no obvious masses Respiratory: normal effort, no audible wheezes Cardiovascular: regular pulse and no cyanosis Musculoskeletal: moving all extremities, normal tone Skin: warm and dry Psych: normal mood and affect, oriented Abdomen: soft, non distended, non tender, no organomegaly, no hernias : worthy draining red urine prior to irrigation and clear light pink after irrigation with CBI on slow-medium drip DATA: LABS: BMP: Sodium (mmol/L) Date Value 09/11/2015 136 Potassium (mmol/L) Date Value 09/11/2015 4.7 CO2 (mmol/L) Date Value 09/11/2015 22 BUN (mg/dL) Date Value 09/11/2015 23 CBC: Lab Results Component Value Date WBC 6.95 12/16/2015 HCT 38.2 (L) 12/16/2015 MCV 88.8 12/16/2015 PLT 260 12/16/2015 Urinalysis: No components found for: UA Urine Culture: RADIOLOGY: [facility] CT NON-RADIOLOGY -NBNR [facility] - CT Images - Obtained Outside of Imaging [place] IMPRESSION: 77 year old male with gross hematuria. 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 PLAN: -Maintain worthy -Continue CBI; titrate to light pink color -Manually irrigate worthy every 4 hours for clot evacuation - Disconnect bag from worthy and with CBI clamped, irrigate via bag port with a Tumi/pistol syringe for return of clots and until return of clear/pink urine - Can hold irrigation if clear off of CBI -Levsin PRN for bladder spasms -Cr wnl, trend - Check UA -check urine culture, treat per cx results - Rocephin given multiple worthy attempts -Hold anticoagulation, if medically feasible, until hematuria clears -Patient will need outpatient hematuria workup with cystoscopy and CT Urogram. Known to (more content not included)... Normal [facility] Determination of erythrocyte mean corpuscular volume (MCV)Ordered By: Neo Alcaraz on 02-07-2023 MCV (RBC) [Entitic vol] 90.2 fL 80-94 [facility] ED NOTEon 02-07-2023 ED NOTE HNO ID: [id number] Author: Margie Amezquita RN Service: Emergency Medicine Author Type: Registered Nurse Type: ED Notes Filed: 02/07/2023 8:08 PM Note Text: Yaz updated at this time with pt's permission. Pt updated on care plan, no other questions at this time. Normal [facility] ED NOTE HNO ID: [id number] Author: Margie Amezquita RN Service: Emergency Medicine Author Type: Registered Nurse Type: ED Notes Filed: 02/07/2023 8:06 PM Note Text: 1000 cc emptied from urine bag, pt still on continuous bladder irrigation Normal [facility] ED NOTE HNO ID: [id number] Author: Roberta Salazar, [place] Service: Emergency Medicine Author Type: Registered Nurse Type: ED Notes Filed: 02/07/2023 6:08 PM Note Text: Pt arrives to ED from [facility] for hematuria. Pt noted this morning some bloody urine. Pt had catheter changed twice today and irrigated it. Pt arrives with bloody urine. Normal [facility] ED NOTE HNO ID: [id number] Author: Kourtney Mendez, [place] Service: ? Author Type: Registered Nurse Type: ED Notes Filed: 02/07/2023 6:05 PM Note Text: Bed: 46-ED Expected date: Expected time: Means of arrival: Comments: fidel [facility] ED PROV NOTEon 02-07-2023 ED PROV NOTE HNO ID: [id number] Author: Cameron Vicente MD Service: Emergency Medicine Author Type: Physician Type: ED Provider Notes Filed: 02/08/2023 6:30 PM Note Text: ED Provider Note Patient Name: Barbara Milan : 1945 SERVICE DATE: 02/07/23 History No chief complaint on file. 77-year-old male with history of previous prostate cancer presents due to hematuria and urinary retention. Patient states he recently was seen last week at outside ED for similar concern and had Worthy catheter placed and was started on antibiotics for UTI. He developed urinary retention and went to the [facility] today. They attempted to place a three-way catheter but were unable to do so. He continues to have suprapubic pressure and blood in the catheter. Denies fever or chills. Has been compliant with antibiotics. PAST MEDICAL HISTORY Diagnosis Date Benign neoplasm of colon Diverticulosis of colon (without mention of hemorrhage) Elevated prostate specific antigen (PSA) Essential hypertension, benign Internal hemorrhoids without mention of complication Osteoarthrosis, unspecified whether generalized or localized, unspecified site LEFT KNEE Prostate cancer (HCC) Snoring PAST SURGICAL HISTORY Procedure Laterality Date COLONOSCOP W/ OR W/O BRSH SPEC 11/21/15 Colonoscopy COLONOSCOPY W/BX 10/03/06 PROSTATE BIOPSY 09/11 Dr Figueredo REMOVE TONSILS/ADENOIDS,<12 Y/O ROBOTIC SURGERY PROCEDURE 09/01/2011 prostatectomy. TOTAL KNEE REPLACEMENT Left 02/2013 Knee replacement, total FAMILY HISTORY Problem Relation Age of Onset Hypertension Mother Stroke Father Social History Tobacco Use Smoking status: Never Smokeless tobacco: Never Substance and Sexual Activity Alcohol use: No Drug use: No Sexual activity: Not on file ALLERGIES Allergen Reactions Atenolol Unknown Hydrochlorothiazide Unknown Indocin [Indomethac* GI Upset Losartan Potassium Hives Sulfa (Sulfonamide * Hives Review of Systems Constitutional: Negative for chills and fever. HENT: Negative for facial swelling and trouble swallowing. Respiratory: Negative for chest tightness and shortness of breath. Cardiovascular: Negative for chest pain and leg swelling. Gastrointestinal: Negative for abdominal pain, constipation, diarrhea and nausea. Genitourinary: Positive for decreased urine volume, difficulty urinating, dysuria and hematuria. Musculoskeletal: Negative for arthralgias and myalgias. Skin: Negative for color change and rash. Neurological: Negative for weakness and headaches. Psychiatric/Behavior al: Negative for dysphoric mood and suicidal ideas. Physical Exam Vitals [02/07/23 1808] BP Pulse Temp Temp src Resp SpO2 Weight Height 141/77 (!) 93 36.5 ?C (97.7 ?F) -- 20 96 % 88.5 kg (195 lb) 1.778 m (5' 10) Physical Exam Constitutional: General: He is not in acute distress. Appearance: Normal appearance. HENT: Head: Normocephalic and atraumatic. Mouth/Throat: Mouth: Mucous membranes are moist. Pharynx: Oropharynx is clear. Eyes: Extraocular Movements: Extraocular movements intact. Conjunctiva/sclera: Conjunctivae normal. Pupils: Pupils are equal, round, and reactive to light. Cardiovascular: Rate and Rhythm: Normal rate and regular rhythm. Pulses: Normal pulses. Heart sounds: Normal heart sounds. No murmur heard. Pulmonary: Effort: Pulmonary effort is normal. Breath sounds: Normal breath sounds. Abdominal: General: There is no distension. Palpations: Abdomen is soft. Tenderness: There is no abdominal tenderness. Comments: Some suprapubic tenderness is present. Genitourinary: Comments: 18 [address] catheter in place. There is bright red blood noted with minimal clots. Musculoskeletal: General: No swelling or deformity. Cervical back: Normal range of motion and neck supple. Skin: General: Skin is warm. Findings: No rash. Neurological: General: No focal deficit present. Mental Status: He is alert and oriented to person, place, and time. Psychiatric: Mood and Affect: Mood normal. Behavior: Behavior normal. Diagnostic Testing ED Labs Ordered and Reviewed - No data to display Procedures ED Course / Clinical Impression Clinical Impressions as of 02/07/231943 Hematuria MDM / Disposition / Plan Patient coming in with hematuria and urinary retention. Patient does have a Worthy catheter, [address] They were unable to place a three-way catheter at [facility]. Unable to clear the blood. Patient sent for urology consult. Urology was consulted on arrival and they recommended admission for observation and irrigation at this time. Patient be admitted to Dr. Grewal from urology. SIGNATURE: MD DEVANTE Grace CAMERON D 02/07/23 1010 Attending Note I evaluated the patient and personally participated in the hurd components. I was present for hurd portions and personally supervised any/all resuscitation/pro (more content not included)... Normal [facility] Hematocrit Auto (Bld) [Volum e fraction]Ordered By: Neo Alcaraz on 02-07-2023 Hematocrit (Bld) [Volume fraction] 37.8 % 40-54 [facility] - Chemistry and C hemistry - challengeOrdered By: Neo Alcaraz on 02-07-2023 CO2 [Moles/Vol] 19.0 mmol/L 21.0-32.0 [facility] Urea nitrogen/Creatinine [Mass ratio] 14.5 mg/mg 10-20 [facility] - Hematology and Cell countsOrdered By: Neo Alcaraz on 02-07-2023 Erythrocyte distribution width (RBC) [Entitic vol] 40.5 fL 35.1-43.9 [facility] Erythrocyte distribution width (RBC) [Ratio] 12.3 % 11.6-14.6 [facility] Immature granulocytes/100 WBC (Bld) 0.600 % 0.0-0.9 [facility] Comment on above: IG% - Immature Granu locytes (promyelocytes, myelocytes and metamyelocytes) > 1% indicates that a LEFT SHIFT is Present. MCH (RBC) [Entitic mass] 30.5 pg 27.0-32.0 [facility] Nucleated RBC/100 WBC (Bld) [Ratio] 0 % 0-5 [facility] MCHC Auto (RBC) [Mass/Vol]Or dered By: Neo Alcaraz on 02-07-2023 MCHC (RBC) [Mass/Vol] 33.9 g/dL 32-36 [facility] No Panel InformationOrdered By: Neo Alcaraz on 02-07-2023 Estimated Creatinine Clearance Calc 41.45 ml/min [facility] Estimated GFR (MDRD) Amer 55 mL/min >60 [facility] [facility] Comment on above: GFR Calc Estimated GFR (MDRD) Non-Af Amer 45 mL/min >60 [facility] Comment on above: Non- GFR Calc Platelets bldOrdered By: Arnoldo Alcaraz on 02-07-2023 Platelets (Bld) [#/Vol] 241 10*3/uL 150-450 [facility] Serum or plasma calcium janusz urement (mass/volume)Ordered By: Neo Alcaraz on 02-07-2023 Calcium [Mass/Vol] 9.0 mg/dL 8.5-10.1 [facility] Serum or plasma creatinine m easurement (mass/volume)Ordered By: Neo Alcaraz on 02-07-2023 Creatinine [Mass/Vol] 1.59 mg/dL 0.70-1.30 [facility] Comment on above: The validity of the calculated GFR & GFRAA in patients over 70 years has not been determined. Clinical correlation is essential. Serum or plasma urea nitroge n measurement (mass/volume)Ordered By: Neo Alcaraz on 02-07-2023 Urea nitrogen [Mass/Vol] 23 mg/dL 7-18 [facility] Thin prep Papanicolaou smear with manual screeningOrdered By: Neo Alcaraz on 02-07-2023 Thin prep Papanicolaou smear with manual screening 8 5-15 [facility] Absolute lymphocyte countOrd ered By: Columba Decker on 02-02-2023 Lymphocytes Auto (Unsp spec) [#/Vol] 0.58 10*3/uL 0.83-4.51 [facility] Basophil percentageOrdered B y: Columba Decker on 02-02-2023 Basophil percentage 0-5 SEEN /hpf 0-[address] [facility] Basophils/100 WBC (Bld) 0.6 % 0-1 [facility] Chloride [Moles/Vol] 108 mmol/L 98-107 [facility] Eosinophils/100 WBC (Bld) 0.9 % 0-5 [facility] Glucose [Mass/Vol] 120 mg/dL 74-106 [facility] Comment on above: Fasting Glucose resu lt from 100 to 125 mg/dL suggests IMPAIRED HOMEOSTASIS per A.D.A. criteria. Neutrophils (Bld) [#/Vol] 5.4 10*3/uL 2.0-7.7 [facility] Neutrophils/100 WBC (Bld) 81.7 % 47-70 [facility] Potassium [Moles/Vol] 4.0 mmol/L 3.5-5.1 [facility] Sodium [Moles/Vol] 136 mmol/L 136-145 [facility] WBC (Bld) [#/Vol] 6.6 10*3/uL 4.4-11.0 [facility] Bilirubin Test strip Ql (U)O rdered By: Columba Decker on 02-02-2023 Bilirubin Ql (U) Negative Negative [facility] Blood erythrocytes count (nu mber/volume)Ordered By: Columba Decker on 02-02-2023 RBC (Bld) [#/Vol] 4.25 10*6/uL 4.6-6.2 [facility] Blood hemoglobin measurement (mass/volume)Ordered By: Columba Decker on 02-02-2023 Hemoglobin (Bld) [Mass/Vol] 13.1 g/dL 13.0-16.5 [facility] Blood lymphocytes/100 leukoc ytesOrdered By: Columba Decker on 02-02-2023 Lymphocytes/100 WBC (Bld) 8.7 % 19-41 [facility] Blood manual differential co mment interpretation (narrative result)Ordered By: Columba Decker on 02-02-2023 Manual differential comment Kristian (Bld) [Interp] SCANNED [facility] Blood monocytes/100 leukocyt esOrdered By: Columba Decker on 02-02-2023 Monocytes/100 WBC (Bld) 7.8 % 0-10 [facility] Blood platelet mean volumeOr dered By: Columba Decker on 02-02-2023 Platelet mean volume (Bld) [Entitic vol] 10.4 fL 6.2-12.0 [facility] Culture, urineOrdered By: Leodan Decker on 02-02-2023 Bacteria identified Cx Nom (U) Staphylococcus haemolyticus [facility] Determination of erythrocyte mean corpuscular volume (MCV)Ordered By: Columba Decker on 02-02-2023 MCV (RBC) [Entitic vol] 91.1 fL 80-94 [facility] Hematocrit Auto (Bld) [Volum e fraction]Ordered By: Columba Decker on 02-02-2023 Hematocrit (Bld) [Volume fraction] 38.7 % 40-54 [facility] INR in Blood by Coagulation assayOrdered By: Columba Decker on 02-02-2023 INR Coag (Bld) [Relative time] 1.1 {INR} [facility] Ketones Test strip Ql (U)Ord ered By: Columba Decker on 02-02-2023 Ketones Ql (U) 5 mg/dl Negative [facility] Laboratory - Chemistry and C hemistry - challengeOrdered By: Columba Decker on 02-02-2023 CO2 [Moles/Vol] 20.0 mmol/L 21.0-32.0 [facility] Urea nitrogen/Creatinine [Mass ratio] 14.1 mg/mg 10-20 [facility] Laboratory - CoagulationOrde red By: Columba Decker on 02-02-2023 aPTT Coag (Bld) [Time] 31.4 s 24.1-36.2 [facility] PT Coag (PPP) [Time] 14.5 s 11.7-14.9 [facility] Laboratory - Hematology and Cell countsOrdered By: Columba Decker on 02-02-2023 Erythrocyte distribution width (RBC) [Entitic vol] 41.3 fL 35.1-43.9 [facility] Erythrocyte distribution width (RBC) [Ratio] 12.4 % 11.6-14.6 [facility] Immature granulocytes/100 WBC (Bld) 0.300 % 0.0-0.9 [facility] Comment on above: IG% - Immature Granu locytes (promyelocytes, myelocytes and metamyelocytes) > 1% indicates that a LEFT SHIFT is Present. MCH (RBC) [Entitic mass] 30.8 pg 27.0-32.0 [facility] Nucleated RBC/100 WBC (Bld) [Ratio] 0 % 0-5 [facility] MCHC Auto (RBC) [Mass/Vol]Or dered By: Columba Decker on 02-02-2023 MCHC (RBC) [Mass/Vol] 33.9 g/dL 32-36 [facility] Mucus LM Ql (Urine sed)Order ed By: Columba Decker on 02-02-2023 Mucus Ql (Urine sed) 0 SEEN /hpf [facility] Nitrite Test strip Ql (U)Ord ered By: Columba Decker on 02-02-2023 Nitrite Ql (U) Positive Negative [facility] No Panel InformationOrdered By: Columba Decker on 02-02-2023 Estimated Creatinine Clearance Calc 46.41 ml/min [facility] Estimated GFR (MDRD) Amer 63 mL/min >60 [facility] Comment on above: GFR Calc Estimated GFR (MDRD) Non-Af Amer 52 mL/min >60 [facility] Comment on above: Non- GFR Calc Platelets bldOrdered By: Chana Decker on 02-02-2023 Platelets (Bld) [#/Vol] 228 10*3/uL 150-450 [facility] Protein Test strip Ql (U)Ord ered By: Columba Decker on 02-02-2023 Protein Ql (U) 100 mg/dl Negative [facility] Serum or plasma calcium janusz urement (mass/volume)Ordered By: Columba Decker on 02-02-2023 Calcium [Mass/Vol] 8.7 mg/dL 8.5-10.1 [facility] Serum or plasma creatinine m easurement (mass/volume)Ordered By: Columba Decker on 02-02-2023 Creatinine [Mass/Vol] 1.42 mg/dL 0.70-1.30 [facility] Comment on above: The validity of the calculated GFR & GFRAA in patients over 70 years has not been determined. Clinical correlation is essential. Serum or plasma urea nitroge n measurement (mass/volume)Ordered By: Columba Decker on 02-02-2023 Urea nitrogen [Mass/Vol] 20 mg/dL 7-18 [facility] Squamous epithelial cells de tection in urine sediment by light microscopyOrdered By: Columba Decker on 02-02-2023 Epithelial cells.squamous LM Ql (Urine sed) 0 SEEN /hpf 0-5 [facility] Thin prep Papanicolaou smear with manual screeningOrdered By: Columba Decker on 02-02-2023 Thin prep Papanicolaou smear with manual screening 8 5-15 [facility] Urine blood detectionOrdered By: Columba Decker on 02-02-2023 RBC Ql (U) 250 /ul Negative [facility] RBC Ql (U) 50-100 SEEN /hpf 0-5 [facility] Urine clarityOrdered By: Chana Decker on 02-02-2023 Clarity (U) Clear Clear [facility] Urine color determinationOrd ered By: Columba Decker on 02-02-2023 Color (U) Yellow Yellow [facility] Urine glucose detectionOrder ed By: Columba Decker on 02-02-2023 Glucose Ql (U) Normal mg/dl Normal [facility] Urine leukocyte esterase det ection by dipstickOrdered By: Columba Decker on 02-02-2023 Leukocyte esterase Test strip Ql (U) 100 /ul Negative [facility] Urine pHOrdered By: Columba Decker on 02-02-2023 pH (U) 6.5 [pH] 5.0 - 8.0 [facility] Urine sediment bacteria coun t by microscopy (number/high power field)Ordered By: Columba Decker on 02-02-2023 Bacteria LM.HPF (Urine sed) [#/Area] RARE /hpf None Seen [facility] Urine specific gravity measu rementOrdered By: Columba Decker on 02-02-2023 Specific gravity (U) [Rel density] 1.005 1.002-1.030 [facility] Urobilinogen Auto test strip Ql (U)Ordered By: Columba Decker on 02-02-2023 Urobilinogen Ql (U) Normal mg/dl Normal [facility] Basophil percentageOrdered B y: Eduardo Han on 01-03-2023 Chloride [Moles/Vol] 109 mmol/L 98-107 [facility] Cholesterol [Mass/Vol] 177 mg/dL <200 [facility] Comment on above: <200 mg/dL Desirable 200-240 mg/dL Borderline >240 mg/dL High Risk Glucose [Mass/Vol] 112 mg/dL 74-106 [facility] Comment on above: Fasting Glucose resu lt from 100 to 125 mg/dL suggests IMPAIRED HOMEOSTASIS per A.D.A. criteria. Potassium [Moles/Vol] 4.1 mmol/L 3.5-5.1 [facility] Sodium [Moles/Vol] 138 mmol/L 136-145 [facility] Triglyceride [Mass/Vol] 100 mg/dL <199 [facility] Comment on above: The drugs N-Acetylcy steine and Metamizole may falsely depress this assay.Serum Triglycerides Reference Interval Normal <150 mg/dL Borderline high 150 - 199 mg/dL High 200 - 499 mg/dL Very High > or = 500 mg/dL Laboratory - Chemistry and C hemistry - challengeOrdered By: Eduardo Han on 01-03-2023 CO2 [Moles/Vol] 23.0 mmol/L 21.0-32.0 [facility] Urea nitrogen/Creatinine [Mass ratio] 16.7 mg/mg 10-20 [facility] No Panel InformationOrdered By: Eduardo Han on 01-03-2023 Estimated GFR (MDRD) Amer 72 mL/min >60 [facility] Comment on above: GFR Calc Estimated GFR (MDRD) Non-Af Amer 59 mL/min >60 [facility] Comment on above: Non- GFR Calc Serum or plasma calcium janusz urement (mass/volume)Ordered By: Eduardo Han on 01-03-2023 Calcium [Mass/Vol] 8.9 mg/dL 8.5-10.1 [facility] Serum or plasma cholesterol in HDL measurement (mass/volume)Ordered By: Eduardo Han on 01-03-2023 Cholesterol in HDL [Mass/Vol] 49 mg/dL >40 [facility] Comment on above: The drugs N-Acetylcy steine and Metamizole may falsely depress this assay. Reference Range HDL <40 mg/dL Low HDL Cholesterol HDL >or= 60 mg/dL High HDL Cholesterol Serum or plasma cholesterol in VLDL measurement (mass/volume)Ordered By: Eduardo Han on 01-03-2023 Cholesterol in VLDL [Mass/Vol] 20 mg/dL 5-40 [facility] Serum or plasma creatinine m easurement (mass/volume)Ordered By: Eduardo Han on 01-03-2023 Creatinine [Mass/Vol] 1.26 mg/dL 0.70-1.30 [facility] Comment on above: The validity of the calculated GFR & GFRAA in patients over 70 years has not been determined. Clinical correlation is essential. Serum or plasma low density lipoprotein (LDL) cholesterol measurement (mass/volume)Ordered By: Eduardo Han on 01-03-2023 Cholesterol in LDL [Mass/Vol] 108 mg/dL 0-130 [facility] Serum or plasma urea nitroge n measurement (mass/volume)Ordered By: Eduardo Han on 01-03-2023 Urea nitrogen [Mass/Vol] 21 mg/dL 7-18 [facility] Thin prep Papanicolaou smear with manual screeningOrdered By: Eduardo Han on 01-03-2023 Thin prep Papanicolaou smear with manual screening 6 5-15 [facility] No Panel InformationOrdered By: Zhao Gilliland on 12-03-2022 Prostate Specific Antigen Total < 0.01 ng/mL 0.0-4.0 [facility] Comment on above: This test was perfor med using the TPSA assay method for the[facility] system. Values obtained with differentassay methods cannot be used interchangably.When changing PSA assays in the course of monitoring apatient, additional sequential testing should be carriedout to confirm baseline values. Basophil percentageOrdered B y: Dr. Han on 07-05-2022 Bilirubin [Mass/Vol] 0.60 mg/dL 0.20-1.00 [facility] Comment on above: For patients on eltr ombopag therapy, use of Dimension [place] TBIL is not recommended. Chloride [Moles/Vol] 108 mmol/L 98-107 [facility] Cholesterol [Mass/Vol] 181 mg/dL <200 [facility] Comment on above: <200 mg/dL Desirable 200-240 mg/dL Borderline >240 mg/dL High Risk Glucose [Mass/Vol] 121 mg/dL 74-106 [facility] Comment on above: Fasting Glucose resu lt from 100 to 125 mg/dL suggests IMPAIRED HOMEOSTASIS per A.D.A. criteria. Potassium [Moles/Vol] 4.2 mmol/L 3.5-5.1 [facility] Protein [Mass/Vol] 7.6 g/dL 6.4-8.2 [facility] Sodium [Moles/Vol] 139 mmol/L 136-145 [facility] Triglyceride [Mass/Vol] 101 mg/dL <199 [facility] Comment on above: The drugs N-Acetylcy steine and Metamizole may falsely depress this assay.Serum Triglycerides Reference Interval Normal <150 mg/dL Borderline high 150 - 199 mg/dL High 200 - 499 mg/dL Very High > or = 500 mg/dL Laboratory - Chemistry and C hemistry - challengeOrdered By: Dr. Han on 07-05-2022 ALP [Catalytic activity/Vol] 77 U/L 45-117 [facility] ALT [Catalytic activity/Vol] 19 U/L 16-61 [facility] CO2 [Moles/Vol] 23.0 mmol/L 21.0-32.0 [facility] Globulin (S) [Mass/Vol] 3.9 g/dL 2.2-4.2 [facility] Urea nitrogen/Creatinine [Mass ratio] 13.6 mg/mg 10-20 [facility] No Panel InformationOrdered By: Dr. Han on 07-05-2022 Estimated GFR (MDRD) Amer 68 mL/min >60 [facility] Comment on above: GFR Calc Estimated GFR (MDRD) Non-Af Amer 56 mL/min >60 [facility] Comment on above: Non- GFR Calc Prostate Specific Antigen Total < 0.01 ng/mL 0.0-4.0 [facility] Comment on above: This test was perfor med using the TPSA assay method for the[employer] chemistry system. Values obtained with differentassay methods cannot be used interchangably.When changing PSA assays in the course of monitoring apatient, additional sequential testing should be carriedout to confirm baseline values. Serum or plasma albumin janusz urement (mass/volume)Ordered By: Dr. Han on 07-05-2022 Albumin [Mass/Vol] 3.7 g/dL 3.2-5.0 [facility] Serum or plasma albumin/glob ulin mass ratioOrdered By: Dr. Han on 07-05-2022 Albumin/Globulin [Mass ratio] 0.9 {ratio} 0.9-2.4 [facility] Serum or plasma calcium janusz urement (mass/volume)Ordered By: Dr. Han on 07-05-2022 Calcium [Mass/Vol] 8.9 mg/dL 8.5-10.1 [facility] Serum or plasma cholesterol in HDL measurement (mass/volume)Ordered By: Dr. Han on 07-05-2022 Cholesterol in HDL [Mass/Vol] 51 mg/dL >40 [facility] Comment on above: The drugs N-Acetylcy steine and Metamizole may falsely depress this assay. Reference Range HDL <40 mg/dL Low HDL Cholesterol HDL >or= 60 mg/dL High HDL Cholesterol Serum or plasma cholesterol in VLDL measurement (mass/volume)Ordered By: Dr. Han on 07-05-2022 Cholesterol in VLDL [Mass/Vol] 20 mg/dL 5-40 [facility] Serum or plasma creatinine m easurement (mass/volume)Ordered By: Dr. Han on 07-05-2022 Creatinine [Mass/Vol] 1.32 mg/dL 0.70-1.30 [facility] Comment on above: The validity of the calculated GFR & GFRAA in patients over 70 years has not been determined. Clinical correlation is essential. Serum or plasma low density lipoprotein (LDL) cholesterol measurement (mass/volume)Ordered By: Dr. Han on 07-05-2022 Cholesterol in LDL [Mass/Vol] 110 mg/dL 0-130 [facility] Serum or plasma urea nitroge n measurement (mass/volume)Ordered By: Dr. Han on 07-05-2022 Urea nitrogen [Mass/Vol] 18 mg/dL 7-18 [facility] Serum or plasma uric acid me asurement (mass/volume)Ordered By: Dr. Han on 07-05-2022 Urate [Mass/Vol] 8.3 mg/dL 3.5-7.2 [facility] Comment on above: The drugs N-Acetylcy steine and Metamizole may falsely depress this assay. Thin prep Papanicolaou smear with manual screeningOrdered By: Dr. Han on 07-05-2022 Thin prep Papanicolaou smear with manual screening 17 U/L 15-37 [facility] Thin prep Papanicolaou smear with manual screening 8 5-15 [facility] No Panel Informationon 12-28 Prostate Specific Antigen Total 0.03 ng/mL 0.0-4.0 [facility] Work Phone: Comment on above: This test was perfor med using the TPSA assay method for [employer] chemistry system. Values obtained with differentassay methods cannot be used interchangably.When changing PSA assays in the course of monitoring apatient, additional sequential testing should be carriedout to confirm baseline values. Vital Signs Date Time Vital Sign Value Performing Clinician Faci lity 11-14-2024 00:46-0400 Body temperature 97.6 [degF] Dr. Kelvin Han MD Work Phone: [facility] 11-14-2024 00:46-0400 Diastolic blood pressure 77 mm[Hg] Dr. Kelvin Han MD Work Phone: [facility] 11-14-2024 00:46-0400 Heart rate 69 /min Dr. Kelvin Han MD Work Phone: [facility] 11-14-2024 00:46-0400 Respiratory rate 16 /min Dr. Kelvin Han MD Work Phone: [facility] 11-14-2024 00:46-0400 SaO2% (BldA) [Mass fraction] 97 % Dr. Kelvin Han MD Work Phone: [facility] 11-14-2024 00:46-0400 Systolic blood pressure 117 mm[Hg] Dr. Kelvin Han MD Work Phone: [facility] 11-13-2024 20:29-0400 Body height 175.[address] Kelvin Han MD Work Phone: [facility] 11-13-2024 20:29-0400 Body mass index (BMI) [Ratio] 28 kg/m2 Dr. Kelvin Han MD Work Phone: 8(787)065-494401 [place] [address] 11-13-2024 20:29-0400 Body weight 85.[address] Kelvin Han MD Work Phone: 8(170)548-029000 [place] [address] 10-16-2024 03:03-0400 Body temperature 98 [degF] Dr. Kelvin Han MD Work Phone: 3(039)603-204401 [place] [address] 10-16-2024 03:03-0400 Diastolic blood pressure 56 mm[Hg] Dr. Kelvin Han MD Work Phone: 5(094)190-296501 [place] [address] 10-16-2024 03:03-0400 Heart rate 69 /min Dr. Kelvin Han MD Work Phone: 4(254)359-167001 [place] [address] 10-16-2024 03:03-0400 Respiratory rate 16 /min Dr. Kelvin Han MD Work Phone: 7(066)525-466901 [place] [address] 10-16-2024 03:03-0400 SaO2% (BldA) [Mass fraction] 99 % Dr. Kelvin Han MD Work Phone: 4(314)782-331301 [place] [address] 10-16-2024 03:03-0400 Systolic blood pressure 128 mm[Hg] Dr. Kelvin Han MD Work Phone: 5(596)081-504701 [place] [address] 10-16-2024 01:50-0400 Body height 175.[address] Kelvin Han MD Work Phone: 9(316)554-485501 [place] [address] 10-16-2024 01:50-0400 Body mass index (BMI) [Ratio] 27.7 kg/m2 Dr. Kelvin Han MD Work Phone: 6(776)380-814701 [place] [address] 10-16-2024 01:50-0400 Body weight 85.[address] Kelvin Han MD Work Phone: [facility] 08-20-2024 14:30-0400 Body temperature 98.3 [degF] Dr. Kelvin Han MD Work Phone: 9(854)482-484400 [place] [address] 08-20-2024 14:30-0400 Diastolic blood pressure 68 mm[Hg] Dr. Kelvin Han MD Work Phone: 3(965)326-808600 [place] [address] 08-20-2024 14:30-0400 Heart rate 70 /min Dr. Kelvin Han MD Work Phone: 4(779)213-274101 [place] [address] 08-20-2024 14:30-0400 Respiratory rate 16 /min Dr. Kelvin Han MD Work Phone: 7(780)961-736501 [place] [address] 08-20-2024 14:30-0400 SaO2% (BldA) [Mass fraction] 97 % Dr. Kelvin Han MD Work Phone: 7(135)517-391001 [place] [address] 08-20-2024 14:30-0400 Systolic blood pressure 126 mm[Hg] Dr. Kelvin Han MD Work Phone: 6(041)918-550301 [place] [address] 08-20-2024 11:03-0400 Body height 175.[address] Kelvin Han MD Work Phone: 1(866)660-463801 [place] [address] 08-20-2024 11:03-0400 Body weight 90.[address] Kelvin Han MD Work Phone: 8(530)409-225901 [place] [address] 08-19-2024 03:18-0400 Body mass index (BMI) [Ratio] 29.6 kg/m2 Dr. Kelvin Han MD Work Phone: 0(060)757-664801 [place] [address] 08-15-2024 14:00-0400 Inhaled oxygen flow rate 1 L/min Dr. Kelvin Han MD Work Phone: 0(927)292-093701 [place] [address] 08-14-2024 23:28-0400 Body temperature 99.6 [degF] Dr. Kelvin Han MD Work Phone: 5(067)502-049400 [place] [address] 08-14-2024 23:28-0400 Diastolic blood pressure 55 mm[Hg] Dr. Kelvin Han MD Work Phone: [facility] 08-14-2024 23:28-0400 Heart rate 107 /min Dr. Kelvin Han MD Work Phone: 5(341)198-893400 [place] [address] 08-14-2024 23:28-0400 Respiratory rate 25 /min Dr. Kelvin Han MD Work Phone: 7(559)859-819200 [place] [address] 08-14-2024 23:28-0400 SaO2% (BldA) [Mass fraction] 99 % Dr. Kelvin Han MD Work Phone: 1(547)311-048500 [place] [address] 08-14-2024 23:28-0400 Systolic blood pressure 96 mm[Hg] Dr. Kelvin Han MD Work Phone: 3(026)527-099400 [place] [address] 08-14-2024 23:00-0400 Inhaled oxygen flow rate 2 L/min Dr. Kelvin Han MD Work Phone: [facility] 08-14-2024 21:45-0400 Body mass index (BMI) [Ratio] 29.5 kg/m2 Dr. Kelvin Han MD Work Phone: 0(351)257-654300 [place] [address] 08-14-2024 21:45-0400 Body weight 90.[address] Kelvin Han MD Work Phone: 6(567)689-165400 [place] [address] 08-14-2024 19:22-0400 Body height 175.[address] Kelvin Han MD Work Phone: 3(497)072-882100 [place] [address] 06-08-2024 06:22-0500 Body temperature 98 [degF] Dr. Kelvin Han MD Work Phone: 0(352)491-428900 [place] [address] 06-08-2024 06:22-0500 Diastolic blood pressure 67 mm[Hg] Dr. Kelvin Han MD Work Phone: [facility] 06-08-2024 06:22-0500 Heart rate 87 /min Dr. Kelvin Han MD Work Phone: [facility] 06-08-2024 06:22-0500 Respiratory rate 18 /min Dr. Kelvin Han MD Work Phone: [facility] 06-08-2024 06:22-0500 SaO2% (BldA) [Mass fraction] 99 % Dr. Kelvin Han MD Work Phone: [facility] 06-08-2024 06:22-0500 Systolic blood pressure 122 mm[Hg] Dr. Kelvin Han MD Work Phone: [facility] 06-08-2024 06:05-0500 Body mass index (BMI) [Ratio] 29 kg/m2 Dr. Kelvin Han MD Work Phone: [facility] 06-08-2024 06:05-0500 Body weight 89.[address] Kelvin Han MD Work Phone: [facility] 03-02-2024 09:30-0400 Body height 175.3 cm [facility] Work Phone: [facility] 03-02-2024 09:30-0400 Body mass index (BMI) [Ratio] 27.84 kg/m2 [facility] Work Phone: [facility] 03-02-2024 09:30-0400 Body temperature 97 [degF] [facility] Work Phone: [facility] 03-02-2024 09:30-0400 Body weight 85.5 kg [facility] Work Phone: [facility] 03-02-2024 09:30-0400 Diastolic blood pressure 61 mm[Hg] [facility] Work Phone: [facility] 03-02-2024 09:30-0400 Heart rate 96 /min [facility] Work Phone: [facility] 03-02-2024 09:30-0400 Respiratory rate 22 /min [facility] Work Phone: [facility] 03-02-2024 09:30-0400 SaO2% (BldA) [Mass fraction] 99 % [facility] 7 Work Phone: [facility] 03-02-2024 09:30-0400 Systolic blood pressure 119 mm[Hg] [facility] 7 Work Phone: [facility] 12-16-2023 08:07-0400 Body mass index (BMI) [Ratio] 26.7 kg/m2 Matt Garcia MD Work Phone: [facility] 12-16-2023 08:07-0400 Body weight 84.4 kg Matt Garcia MD Work Phone: [facility] 12-16-2023 08:07-0400 Diastolic blood pressure 75 mm[Hg] Matt Garcia MD Work Phone: [facility] 12-16-2023 08:07-0400 Heart rate 100 /min Matt Garcia MD Work Phone: [facility] 12-16-2023 08:07-0400 Systolic blood pressure 121 mm[Hg] Matt Garcia MD Work Phone: [facility] 10-15-2023 06:17-0400 Body temperature 98.1 [degF] [facility] 10-15-2023 06:17-0400 Diastolic blood pressure 68 mm[Hg] [facility] 10-15-2023 06:17-0400 Heart rate 79 /min [facility] 10-15-2023 06:17-0400 Respiratory rate 16 /min [facility] 10-15-2023 06:17-0400 SaO2% (BldA) [Mass fraction] 99 % [facility] 10-15-2023 06:17-0400 Systolic blood pressure 112 mm[Hg] [facility] 10-15-2023 03:27-0400 Body height 175.26 cm [facility] 10-15-2023 03:27-0400 Body mass index (BMI) [Ratio] 28 kg/m2 [facility] 10-15-2023 03:27-0400 Body weight 86.3 kg [facility] 03-01-2023 20:10-0400 Respiratory rate 18 /min [facility] 03-01-2023 18:00-0400 Heart rate 86 /min [facility] 03-01-2023 18:00-0400 SaO2% (BldA) [Mass fraction] 97 % [facility] 03-01-2023 14:34-0400 Body height 175.26 cm [facility] 03-01-2023 14:34-0400 Body mass index (BMI) [Ratio] 29 kg/m2 [facility] 03-01-2023 14:34-0400 Body temperature 97 [degF] [facility] 03-01-2023 14:34-0400 Body weight 89.2 kg [facility] 03-01-2023 14:34-0400 Diastolic blood pressure 66 mm[Hg] [facility] 03-01-2023 14:34-0400 Systolic blood pressure 112 mm[Hg] [facility] 02-21-2023 09:46-0400 Body temperature 98.2 [degF] [facility] 02-21-2023 09:46-0400 Diastolic blood pressure 78 mm[Hg] [facility] 02-21-2023 09:46-0400 Heart rate 85 /min [facility] 02-21-2023 09:46-0400 Respiratory rate 16 /min [facility] 02-21-2023 09:46-0400 SaO2% (BldA) [Mass fraction] 96 % [facility] 02-21-2023 09:46-0400 Systolic blood pressure 134 mm[Hg] [facility] 02-20-2023 11:56-0400 Body height 175.26 cm [facility] 02-20-2023 11:56-0400 Body weight 94.8 kg [facility] 02-20-2023 02:24-0400 Body mass index (BMI) [Ratio] 30.8 kg/m2 [facility] 02-17-2023 15:00-0400 Body temperature 98.8 [degF] [facility] 02-17-2023 15:00-0400 Diastolic blood pressure 73 mm[Hg] [facility] 02-17-2023 15:00-0400 Heart rate 99 /min [facility] 02-17-2023 15:00-0400 Respiratory rate 18 /min [facility] 02-17-2023 15:00-0400 SaO2% (BldA) [Mass fraction] 97 % [facility] 02-17-2023 15:00-0400 Systolic blood pressure 129 mm[Hg] [facility] 02-14-2023 18:28-0400 Body height 177.8 cm [facility] 02-14-2023 18:28-0400 Body mass index (BMI) [Ratio] 29.8 kg/m2 [facility] 02-14-2023 18:28-0400 Body weight 94.4 kg [facility] 02-14-2023 14:38-0400 Body temperature 98 [degF] [facility] 02-14-2023 14:38-0400 Diastolic blood pressure 68 mm[Hg] [facility] 02-14-2023 14:38-0400 Heart rate 70 /min [facility] 02-14-2023 14:38-0400 Respiratory rate 18 /min [facility] 02-14-2023 14:38-0400 Systolic blood pressure 144 mm[Hg] [facility] 02-14-2023 13:40-0400 Body height 177.8 cm [facility] 02-14-2023 13:40-0400 Body mass index (BMI) [Ratio] 29.8 kg/m2 [facility] 02-14-2023 13:40-0400 Body weight 94.4 kg [facility] 02-14-2023 13:19-0400 SaO2% (BldA) [Mass fraction] 99 % [facility] 02-07-2023 11:05-0400 Body height 177.8 cm [facility] 02-07-2023 11:05-0400 Body mass index (BMI) [Ratio] 27.9 kg/m2 [facility] 02-07-2023 11:05-0400 Body temperature 97.3 [degF] [facility] 02-07-2023 11:05-0400 Body weight 88.45 kg [facility] 02-07-2023 11:05-0400 Diastolic blood pressure 93 mm[Hg] [facility] 02-07-2023 11:05-0400 Heart rate 126 /min [facility] 02-07-2023 11:05-0400 Respiratory rate 14 /min [facility] 02-07-2023 11:05-0400 SaO2% (BldA) [Mass fraction] 98 % [facility] 02-07-2023 11:05-0400 Systolic blood pressure 156 mm[Hg] [facility] 02-02-2023 13:01-0400 Diastolic blood pressure 76 mm[Hg] [facility] 02-02-2023 13:01-0400 Heart rate 75 /min [facility] 02-02-2023 13:01-0400 Respiratory rate 18 /min [facility] 02-02-2023 13:01-0400 SaO2% (BldA) [Mass fraction] 95 % [facility] 02-02-2023 13:01-0400 Systolic blood pressure 120 mm[Hg] [facility] 02-02-2023 11:43-0400 Body height 177.8 cm [facility] 02-02-2023 11:43-0400 Body mass index (BMI) [Ratio] 27.8 kg/m2 [facility] 02-02-2023 11:43-0400 Body temperature 97.5 [degF] [facility] 02-02-2023 11:43-0400 Body weight 87.99 kg [facility] Encounters Encounter Date Encounter Type Care Provider Facility Start: 11-13-2024 End: 11-14-2024 Emergency department patient visit Dr. Kelvin Han MD Work Phone: -Emergency Department Work Phone: Start: 10-16-2024 End: 10-16-2024 Emergency department patient visit Dr. Kelvin Han MD Work Phone: -Emergency Department Work Phone: Start: 09-18-2024 End: 09-18-[address] Kelvin Han MD Work Phone: [facility] Work Phone: Start: 09-18-2024 End: 09-18-[address] Kelvin Han MD -Laboratory Work Phone: Start: 09-18-2024 End: 09-18-2024 ambulatory Kelvin Han Facility:[facility] Start: 08-20-2024 Non-patient / Non-visit Dr. Jameel Herrera MD -[facility] Work Phone: Start: 08-19-2024 Non-patient / Non-visit Dr. Juany beaulieu MD -[facility] Work Phone: Start: 08-18-2024 Non-patient / Non-visit Dr. Juany beaulieu MD [facility] Inpatient Physicians Work Phone: Start: 08-17-2024 Non-patient / Non-visit Dr. Darryn Avery own DO -[facility] Start: 08-17-2024 Non-patient / Non-visit Dr. Juany beaulieu MD -[facility] Work Phone: Start: 08-16-2024 Non-patient / Non-visit Dr. Juany beaulieu MD -[facility] Work Phone: Start: 08-15-2024 Non-patient / Non-visit Tiffanie nelson NP-C -[facility] Start: 08-15-2024 Non-patient / Non-visit Dr. Darryn Avery own DO -[facility] Start: 08-14-2024 ambulatory [facility] Facility:[facility] Start: 08-14-2024 End: 08-20-2024 Evaluation and management of inpatient Dr. Rajinder Acosta DO -Intensive Care Unit Work Phone: Start: 07-19-2024 End: 07-19-[address] Kelvin Han MD -Laboratory, [place] Work Phone: Start: 07-19-2024 End: 07-19-2024 ambulatory [facility] Facility:[facility] Start: 06-08-2024 End: 06-08-2024 Emergency department patient visit Reuben Kirkland DO -Emergency Department Work Phone: Start: 05-11-2024 End: 05-11-2024 Patient encounter procedure Matt Garcia MD Work Phone: Urology Comment on above: Stricture of bladder neck (Primary Dx); Prostate cancer (HCC); Radiation cystitis; ZUHIAR (stress urinary incontinence), male Start: 05-11-2024 End: 05-11-2024 ambulatory MATT GARCIA Facility:[facility] Start: 04-16-2024 ambulatory Kayceomer Escoto ENVIRONMENTAL ATTORNEY Fa cility:[facility] Start: 04-02-2024 End: 04-02-2024 ambulatory [facility] Facility:[facility] Start: 03-28-2024 End: 03-28-2024 Telephone encounter Amalia Childers MD Work Phone: Urology Start: 03-23-2024 End: 03-23-2024 Emergency department patient visit [facility] Facility:[facility] Start: 03-22-2024 End: 04-05-2024 ambulatory Kayce Shahid Escoto ENVIRONMENTAL ATTORNEY Facility:[facility] Start: 03-19-2024 ambulatory Kayce E Tigist ENVIRONMENTAL ATTORNEY Fa cility:[facility] Start: 03-16-2024 ambulatory [facility] Faci lity:[facility] Start: 03-15-2024 ambulatory Kayce E Tigist ENVIRONMENTAL ATTORNEY Fa cility:[facility] Start: 03-13-2024 ambulatory Kayce E Tigist ENVIRONMENTAL ATTORNEY Fa cility:[facility] Start: 03-12-2024 ambulatory Kayce E Tigist ENVIRONMENTAL ATTORNEY Fa cility:[facility] Start: 03-02-2024 End: 03-02-2024 Nursing evaluation of patient and report Kenyetta Garcia LPN Work Phone: Urology Comment on above: Stricture of bladder neck (Primary Dx) Start: 03-02-2024 End: 03-02-2024 ambulatory KELVIN HAN Facility:[facility] Start: 03-02-2024 End: 03-02-2024 Admission to establishment [facility] Work Phone: Pre Anesthesia Start: 03-02-2024 End: 03-02-2024 Anesthesia consultation [facility] Work Phone: Pre Anesthesia Comment on above: Prostate cancer (HCC ) (Primary Dx); Gross hematuria; BENIGN HYPERTENSION Start: 03-02-2024 End: 03-02-2024 ambulatory KELVIN HAN Facility:[facility] Start: 03-01-2024 End: 03-05-2024 ambulatory Kayce Escoto NP Facility:[facility] Start: 02-28-2024 End: 02-28-2024 Telephone encounter Amalia Shah RN Work Phone: Urology Comment on above: Returning Patient's Call Start: 02-28-2024 End: 02-28-2024 ambulatory Matt Garcia MD Work Phone: Urology Start: 02-27-2024 ambulatory Kayce Escoto NP Fa cility:[facility] Start: 02-24-2024 End: 02-24-2024 Patient encounter procedure Matt Garcia MD Work Phone: Urology Comment on above: Radiation cystitis ( Primary Dx); Prostate cancer (HCC); 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; ZUHAIR (stress urinary incontinence), male Start: 02-24-2024 End: 02-24-2024 ambulatory MATT GARCIA Facility:[facility] Start: 02-23-2024 ambulatory Kelvin Han Faci lity:[facility] Start: 02-21-2024 ambulatory Kelvin Campuzanoi lity:[facility] Start: 02-20-2024 ambulatory Kelvin Han Faci lity:[facility] Start: 02-16-2024 ambulatory Kelvin Han Faci lity:[facility] Start: 02-15-2024 ambulatory Johanny Hays NP Faci lity:[facility] Start: 02-14-2024 ambulatory Kelvin Han Faci lity:[facility] Start: 02-13-2024 ambulatory Kelvin Han Faci lity:[facility] Start: 02-09-2024 ambulatory Kayce Shahid DavidsonTigist ENVIRONMENTAL ATTORNEY Fa cility:[facility] Start: 02-07-2024 ambulatory Kayce Shahid DavidsonTigist ENVIRONMENTAL ATTORNEY Fa cility:[facility] Start: 02-03-2024 End: 02-04-2024 ambulatory Kelvin Han Facility:[facility] Start: 02-02-2024 ambulatory Kayce Shahid DavidsonTigist ENVIRONMENTAL ATTORNEY Fa cility:[facility] Start: 01-31-2024 ambulatory Johanny Hays ENVIRONMENTAL ATTORNEY Faci lity:[facility] Start: 01-30-2024 ambulatory Johanny Hays ENVIRONMENTAL ATTORNEY Faci lity:[facility] Start: 01-26-2024 ambulatory Ojhannyapolonia SharpHays ENVIRONMENTAL ATTORNEY Faci lity:[facility] Start: 01-24-2024 ambulatory Kayce Shahid DavidsonTigist ENVIRONMENTAL ATTORNEY Fa cility:[facility] Start: 01-23-2024 ambulatory Kayce Shahid Escoto ENVIRONMENTAL ATTORNEY Fa cility:[facility] Start: 01-14-2024 End: 01-17-2024 Evaluation and management of inpatient Zhao Gilliland Facility:[facility] Start: 01-12-2024 End: 01-12-2024 ambulatory Zhao Gilliland Facility:[facility] Start: 01-11-2024 End: 01-12-2024 Evaluation and management of inpatient Zhao Gilliland Facility:[facility] Start: 01-10-2024 End: 01-11-2024 Emergency department patient visit Reuben Kirkland Facility:[facility] Start: 01-10-2024 ambulatory Kayce Shahid Escoto ENVIRONMENTAL ATTORNEY Fa cility:[facility] Start: 01-09-2024 ambulatory Kayce Shahid Escoto ENVIRONMENTAL ATTORNEY Fa cility:[facility] Start: 01-09-2024 End: 01-09-2024 ambulatory Zhao Gilliland Facility:[facility] Start: 01-08-2024 End: 01-08-2024 Emergency department patient visit Catracho Rodriguez Facility:[facility] Start: 01-04-2024 End: 01-04-2024 ambulatory Kelvin Han Facility:[facility] Start: 12-23-2023 End: 12-23-2023 Patient encounter procedure Matt Garcia MD Work Phone: Urology Comment on above: Radiation cystitis ( Primary Dx); Prostate cancer (HCC); 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; ZUHAIR (stress urinary incontinence), male Start: 12-23-2023 End: 12-23-2023 ambulatory MATT GARCIA Facility:[facility] Start: 12-22-2023 End: 12-22-2023 ambulatory Johanny Hays NP Facility:[facility] Start: 12-16-2023 End: 12-16-2023 ambulatory Matt Garcia MD Work Phone: Urology Start: 12-16-2023 End: 12-16-2023 Patient encounter procedure Matt Garcia MD Work Phone: Urology Comment on above: Radiation cystitis ( Primary Dx); Prostate cancer (HCC); 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; ZUHAIR (stress urinary incontinence), male Start: 12-05-2023 End: 12-06-2023 Emergency department patient visit Reuben Kirkland Facility:[facility] Start: 12-02-2023 End: 12-02-2023 Emergency department patient visit Temijosie Macias Facility:[facility] Start: 12-01-2023 End: 12-01-2023 Emergency department patient visit Clayton Jami Facility:[facility] Start: 10-15-2023 End: 10-15-2023 Emergency department patient visit [facility]-Emergency Department Work Phone: Start: 06-27-2023 End: 06-27-2023 ambulatory [facility] Work Phone: Start: 06-27-2023 End: 06-27-2023 Patient encounter procedure [facility]-Laboratory Work Phone: Start: 04-04-2023 End: 04-04-2023 ambulatory [facility] Work Phone: Start: 04-04-2023 End: 04-04-2023 Patient encounter procedure [facility]-Laboratory Work Phone: Start: 03-01-2023 End: 03-01-2023 Emergency department patient visit [facility]-Emergency Department Work Phone: Start: 03-01-2023 End: 03-01-2023 Patient encounter procedure [facility]-Laboratory Work Phone: Start: 02-20-2023 End: 02-21-2023 [facility] Work Phone: Start: 02-18-2023 Telephone encounter Eduardo Han MD Work Phone: NOC Comment on above: Follow Up Phone Call (Post discharge phone call attempt made. No answer/ ) Start: 02-14-2023 End: 02-17-2023 Evaluation and management of inpatient [facility] 3 Work Phone: Start: 02-14-2023 Evaluation and manag ement of inpatient [facility] 3 Work Phone: Start: 02-14-2023 observation encounter [facility] Work Phone: Start: 02-07-2023 Emergency department patient visit KELVIN HAN [facility] Start: 02-07-2023 End: 02-07-2023 Emergency department patient visit [facility]-Emergency Department Work Phone: Start: 02-02-2023 End: 02-02-2023 Emergency department patient visit [facility]-Emergency Department Work Phone: Start: 01-03-2023 End: 01-03-2023 ambulatory [facility] Work Phone: Start: 01-03-2023 End: 01-03-2023 Patient encounter procedure [facility]-Laboratory Work Phone: Start: 12-03-2022 End: 12-03-2022 ambulatory [facility] Work Phone: Start: 12-03-2022 End: 12-03-2022 Patient encounter procedure [facility]-Laboratory, [place] Work Phone: Start: 07-05-2022 End: 07-05-2022 ambulatory [facility] Work Phone: Start: 07-05-2022 End: 07-05-2022 Patient encounter procedure [facility]-Laboratory Start: 12-28-2021 End: 12-28-2021 [facility] [place] Procedures Date Procedure Procedure Detail Performing Clinician Start: 11-13-2024 Urnls dip stick/tabl et reagent auto microscopy Dr. Kelvin Han MD Work Phone: Start: 09-18-2024 Antibody to centrome re measurement Dr. Kelvin Han MD Work Phone: Comment on above: Previous reported re sult: TNP AIEdited by: INFCE on 09/25/24:1108 AMENDED REPORT 09/25/24 1108 ANTI-CENT B previously reported as: Test not performed Start: 09-18-2024 Antibody to extracta ble nuclear antigen measurement Dr. Kelvin Han MD Work Phone: Comment on above: Previous reported re sult: TNP AIEdited by: INFCE on 09/25/24:1108 AMENDED REPORT 09/25/24 1108 HODGES Ab previously reported as: Test not performed Start: 09-18-2024 Antibody to MISTY-[address] Kelvin Han MD Work Phone: Comment on above: Previous reported re sult: TNP AIEdited by: INFCE on 09/25/24:1108 AMENDED REPORT 09/25/24 1108 ANTI-MISTY previously reported as: Test not performed Start: 09-18-2024 Antibody to lupus La protein measurement Dr. Kelvin Han MD Work Phone: Comment on above: Previous reported re sult: TNP AIEdited by: INFCE on 09/25/24:1108 AMENDED REPORT 09/25/24 1108 Anti-SS-B previously reported as: Test not performed Start: 09-18-2024 Antibody to SS-A measurement Dr. Kelvin Han MD Work Phone: Comment on above: Previous reported re sult: TNP AIEdited by: INFCE on 09/25/24:1108 AMENDED REPORT 09/25/24 1108 Anti-SS-A previously reported as: Test not performed Start: 09-18-2024 Assay of prostate specific antigen total Dr. Kelvin Han MD Work Phone: Comment on above: This test was perfor med using the [employer] tPSA method. Measured values of a patient sample can vary depending on the testing procedure used. PSA values determined on patient samples by different testing procedures cannot be used interchangeably. If there is a change in PSA assays while monitoring therapy, sequential testing should be performed to confirm baseline values. Start: 09-18-[address] Kelvin Han MD Work Phone: Comment on above: Previous reported re sult: TNP AIEdited by: INFCE on 09/25/24:1108 AMENDED REPORT 09/25/24 1108 ANTICHROMATIN previously reported as: Test not performed Start: 09-18-2024 [employer] antibody measurement Dr. Kelvin Han MD Work Phone: Comment on above: Previous reported re sult: TNP AIEdited by: INFCE on 09/25/24:1108 AMENDED REPORT 09/25/24 1108 [employer] Ab previously reported as: Test not performed Start: 08-20-[address] Kelvin Han MD Work Phone: Start: 08-20-2024 Flow cytometry cell surf marker techl only 1st Dr. Kelvin Han MD Work Phone: Start: 08-19-2024 Clostridium diffic[address] e detection Dr. Kelvin Han MD Work Phone: Start: 08-19-[address] Kelvin Han MD Work Phone: Start: 08-19-2024 Iadna-dna/rna gi pth gn multiplex probe tq 6-11 Dr. Kelvin Han MD Work Phone: Start: 08-19-2024 Blood disorder - initial assessment Dr. Kelvin Han MD Work Phone: Start: 08-15-2024 Prostate specific antigen measurement Dr. Kelvin Han MD Work Phone: Comment on above: This test was perfor med using the [employer] tPSA method. Measured values of a patient sample can vary depending on the testing procedure used. PSA values determined on patient samples by different testing procedures cannot be used interchangeably. If there is a change in PSA assays while monitoring therapy, sequential testing should be performed to confirm baseline values. Start: 08-14-2024 Urnls dip stick/tabl et reagent auto microscopy Dr. Kelvin Han MD Work Phone: Start: 08-14-2024 X-ray of chest, PA a nd lateral views Dr. Kelvin Han MD Work Phone: Start: 08-14-2024 CT of abdomen and pelvis without contrast Dr. Kelvin Han MD Work Phone: Start: 08-14-[address] Guy Han MD Work Phone: Start: 08-14-2024 SARS-CoV-2, Influenz a & RSV (PCR) Dr. Kelvin Han MD Work Phone: Start: 08-14-[address] Guy Han MD Work Phone: Start: 07-19-2024 Measurement of renal function Dr. Kelvin Han MD Work Phone: Comment on above: GFR Calc Start: 02-24-2024 Urnls dip stick/tabl et rgnt auto w/o microscopy Matt Garcai MD Work Phone: Start: 03-01-2023 CT of head without contrast Start: 03-01-2023 Plain chest X-ray Start: 02-20-2023 Cysto,Evacuation Hematoma Darshana (Not Applicable) Start: 02-14-2023 Cysto,Evacuation Hematoma Darshana (Bilateral) Start: 02-14-2023 CT of abdomen and pelvis without contrast Start: 02-02-2023 Urine culture Start: 11-21-2015 Colonoscopy Eduardo Han MD Work Phone: Start: 09-11-2015 Lipid 1996 panel - Serum or Plasma Kelvin Han MD Work Phone: H/O: surgery History of prostatectomy Dr. Kelvin Han MD Work Phone: H/O: surgery History of prostatectomy Dr. Jameel Herrera MD Plan of Treatment Date Care Activity Detail Author Start: 03-08-2034 Urine microalbumin profile DTa P,Tdap,Td Vaccine (4 - Td or Tdap) [facility] Start: 03-02-2027 [facility] Start: 02-12-2026 [facility] Start: 11-20-2025 Colonoscopy Colonoscopy [facility] Start: 11-20-2025 Colorectal Cancer Screening Co lorectal Cancer Screening [facility] Start: 03-02-2025 BP Controlled (<130/80) BP Con trolled (<130/80) [facility] Start: 12-15-2024 BP Controlled (<130/80) BP Con trolled (<130/80) [facility] Start: 11-14-2024 End: 11-14-2024 [facility] Start: 11-13-2024 Bacteria identified in Urine by Culture Urine Culture [facility] Start: 10-16-2024 [facility] Start: 08-20-2024 Incentive spirometry [facility] Start: 08-20-2024 [facility] Start: 08-20-2024 Patient discharge [facility] Start: 08-20-2024 Referral to occupati onal therapist [facility] Start: 08-20-2024 Referral to service [facility] Start: 08-19-2024 Care planning and pr oblem solving actions [facility] Start: 08-17-2024 Consultation [facility] Start: 08-16-2024 Care planning and pr oblem solving actions [facility] Start: 08-15-2024 Consultation [facility] Start: 08-15-2024 End: 08-15-2024 Following clinical pathway protocol [facility] Start: 08-15-2024 Application of inter mittent pneumatic compression device [facility] Start: 08-15-2024 Cardiac monitoring [facility] Start: 08-15-2024 Catheterization of vein [facility] Start: 08-15-2024 Notification of physician [facility] Start: 08-15-2024 Vital signs measurements [facility] Start: 08-15-2024 [facility] Start: 08-14-2024 Admission procedure [facility] Start: 08-14-2024 Hospital admission, emergency, from emergency room, medical nature [facility] Start: 08-14-2024 End: 08-15-2024 [facility] Start: 08-14-2024 Thyroid stimulating hormone measurement [facility] Start: 08-14-2024 Bacteria identified in Blood by Culture Blood Culture [facility] Start: 08-14-2024 Bacteria identified in Urine by Culture Urine Culture [facility] Start: 04-02-2024 End: 04-02-2024 Admission to [facility] Admitting Comment on above: CYSTOSCOPY FLEXIBLE Start: 04-02-2024 End: 04-02-2024 Cystourethroscopy [facility] Start: 04-02-2024 Subsequent hospital visit by physician Admitting Comment on above: Stricture of bladder neck [N32.0] Start: 04-02-2024 End: 04-02-2024 Transurethral resection bladder neck [facility] Start: 03-22-2024 End: 03-22-2024 Admission to same day surgery center 03/22/2024 9:30 AM EDT - 03/22/2024 11:00 AM EDT Surgery [facility] [address] [place] [address] Matt Garcia MD [address] [place] [address] CYSTOSCOPY FLEXIBLE [facility] Comment on above: CYSTOSCOPY FLEXIBLE Start: 03-22-2024 End: 03-22-2024 Cystourethroscopy CYSTOSCOPY FLEXIBLE Stricture of bladder neck 03/22/2024 9:30 AM EDT [facility] Start: 03-22-2024 Subsequent hospital visit by physician 03/22/2024 9:30 AM EDT Hospital Encounter [facility] [address] [place] [address] Matt Garcia MD [address] [place] [address] Stricture of bladder neck [N32.0] [facility] Comment on above: Stricture of bladder neck [N32.0] Start: 03-22-2024 End: 03-22-2024 Transurethral resection bladder neck INCISION BLADDER NECK Stricture of bladder neck 03/22/2024 9:30 AM EDT [facility] Start: 03-12-2024 Subsequent hospital visit by physician 03/12/2024 Hospital Encounter Admitting [address] [place] [address] Matt Garcia MD [address] [place] [address] Stricture of bladder neck [N32.0] Admitting Comment on above: Stricture of bladder neck [N32.0] Start: 03-02-2024 End: 03-02-2024 Nursing evaluation of patient and report 03/02/2024 1:00 PM EDT Nurse Visit Urology [address] [address] Kenyetta Garcia, LEAD INJECTION MOLD TECHNICIAN [address] [address] PRE OP Nurse visit with Kenyetta Garcia Urology Comment on above: PRE OP Nurse visit w christo Garcia Start: 03-02-2024 End: 03-02-2024 ambulatory 03/02/2024 12:15 PM EDT Results Only Main [address] [place] [address] labs, urine culture [facility] Comment on above: labs, urine culture Start: 02-28-2024 End: 03-12-2024 CBC panel - Blood by Automated count COMPLETE BLOOD COUNT Lab Routine Stricture of bladder neck Expected: 02/28/2024, Expires: 03/12/2024 [facility] Work Phone: Comment on above: Expected: 02/28/2024 , Expires: 03/12/2024 Start: 02-28-2024 End: 03-12-2024 Comprehensive metabolic 2000 panel - Serum or Plasma COMPREHENSIVE METABOLIC PANEL Lab Routine Stricture of bladder neck Expected: 02/28/2024, Expires: 03/12/2024 [facility] Comment on above: Expected: 02/28/2024 , Expires: 03/12/2024 Start: 02-28-2024 End: 03-12-2024 URINE, PRESURGICAL STERILIZATION CULTURE URINE, PRESURGICAL STERILIZATION CULTURE Microbiology Routine Stricture of bladder neck Radiation cystitis Expected: 02/28/2024, Expires: 03/12/2024 [facility] Comment on above: Expected: 02/28/2024 , Expires: 03/12/2024 Start: 02-24-2024 End: 02-24-2024 Patient encounter procedure 02/24/2024 1:00 PM EDT Office Visit Urology [address] [id number] Matt Garcia MD [address] [place] [address] [facility] Comment on above: [facility] Start: 02-05-2024 Covid-19 Vaccine () Covid-19 Vaccine () [facility] Start: 02-05-2024 Covid-19 Vaccine ( season) Covid-19 Vaccine () [facility] Start: 02-05-2024 Influenza vaccination Influenza Vacc ine (#1) [facility] Start: 12-23-2023 End: 12-23-2023 Patient encounter procedure 12/23/2023 1:00 PM EDT Office Visit Urology [address] [id number] Matt Garcia MD [address] [place] [address] Cysto/ per Dr Saucedo [facility] Comment on above: Cysto/ per Dr Saucedo Start: 11-27-2023 Covid-19 Vaccine () Covid-19 Vaccine () [facility] Start: 11-27-2023 Covid-19 Vaccine () Covid-19 Vaccine () [facility] Start: 10-15-2023 [facility] Start: 06-06-2023 Advance Directive Discussion Advance Directive Discussion [facility] Start: 06-06-2023 Behavioral Health Screening Be havioral Health Screening [facility] Start: 03-01-2023 [facility] Start: 02-21-2023 Referral to service [facility] Start: 02-21-2023 End: 02-21-2023 Patient discharge [facility] Start: 02-20-2023 [facility] Start: 02-20-2023 Application of inter mittent pneumatic compression device [facility] Start: 02-20-2023 Following clinical p athway protocol [facility] Start: 02-20-2023 Deep breathing and c oughing exercises [facility] Start: 02-20-2023 Incentive spirometry [facility] Start: 02-20-2023 Admission procedure [facility] Start: 02-20-2023 Assessment of risk o f venous thromboembolism [facility] Start: 02-20-2023 Irrigation of urinar y bladder [facility] Start: 02-20-2023 Measuring intake and output [facility] Start: 02-20-2023 Patient education [facility] Start: 02-20-2023 Taking patient vital signs [facility] Start: 02-20-2023 Vital signs measurements [facility] Start: 02-20-2023 End: 02-20-2023 [facility] Start: 02-20-2023 Patient referral to dietitian [facility] Start: 02-17-2023 Patient discharge [facility] Start: 02-17-2023 Urinary bladder resi dual urine study [facility] Start: 02-17-2023 Removal of urinary catheter [facility] Start: 02-15-2023 Referral to occupati onal therapist [facility] Start: 02-15-2023 End: 02-15-2023 Referral to service [facility] Start: 02-14-2023 Application of inter mittent pneumatic compression device [facility] Start: 02-14-2023 Following clinical p athway protocol [facility] Start: 02-14-2023 End: 02-14-2023 Irrigation of urinary bladder [facility] Start: 02-14-2023 Admission procedure [facility] Start: 02-14-2023 Deep breathing and c oughing exercises [facility] Start: 02-14-2023 Measuring intake and output [facility] Start: 02-14-2023 Patient education [facility] Start: 02-14-2023 Taking patient vital signs [facility] Start: 02-14-2023 Vital signs measurements [facility] Start: 02-14-2023 End: 02-14-2023 [facility] Start: 02-14-2023 Cysto,Evacuation Hem atoma Darshana (Bilateral) Cysto,Evacuation Hematoma Darshana (Bilateral) [facility] Start: 02-04-2023 Influenza vaccination Influenza Vacc ine (#1) [facility] Start: 02-02-2023 Bacteria identified in Urine by Culture Urine Culture [facility] Start: 02-02-2023 [facility] Start: 11-10-2022 RSV Vaccine (1 - 1-d ose 75+ series) RSV Vaccine (1 - 1-dose 75+ series) [facility] Start: 10-26-2022 Urine microalbumin profile DTa P,Tdap,Td Vaccine (3 - Td or Tdap) [facility] Start: 07-07-2022 Covid-19 Vaccine (6 - Moderna series) Covid-19 Vaccine (6 - Moderna series) [facility] Start: 06-06-2022 Advance Directive Discussion Advance Directive Discussion [facility] Start: 06-06-2022 Depression Assessment Depression Ass essment [facility] Start: 09-10-2020 Lipid 1996 panel - S zev or Plasma Lipid Screening [facility] Start: 12-21-2012 Shingrix Vaccine (2 of 3) Tapia grix Vaccine (2 of 3) [facility] Start: 2007 RSV Vaccine (1 - 1-d ose 60+ series) RSV Vaccine (1 - 1-dose 60+ series) [facility] Start: 11-10-1992 Cologuard (FIT-DNA) Cologuard (FIT-D NA) [facility] Start: 11-10-[address] [facility] Start: 11-10-1992 Fecal Occult Blood Fecal Occult Bloo d [facility] Start: 11-10-1992 SIGMOIDOSCOPY SIGMOIDOSCOPY [facility] Start: 11-10-1965 Annual PCP Team Physical Therapist Center Manager shaheen Disease Visit Annual PCP Team Chronic Disease Visit [facility] Start: 11-10-1965 Anxiety Screening Anxiety Screening [facility] Start: 11-10-1965 BP Controlled (<130/80) BP Con trolled (<130/80) [facility] Start: 11-10-1965 Depression Screening Depression Scre ening [facility] Start: 11-10-1965 Hepatitis C Screening Hepatitis C [facility] Start: 11-10-1965 Hepatitis C screening Hepatitis C [facility] Cystourethroscopy CYSTOSCOPY FLE XIBLE Stricture of bladder neck [facility] Folate [Moles/volume ] in Serum or Plasma [facility] Hemoglobin A1c/Hemoglobin.total in Blood [facility] Lactic acid measurement [facility] Patient Education [facility] Work Phone: Patient referral [facility] Work Phone: Transurethral resect ion bladder neck INCISION BLADDER NECK Stricture of bladder neck [facility] URINALYSIS, REFLEX MICROSCOPIC URINALYSIS, REFLEX MICROSCOPIC Lab Routine Screening for genitourinary condition Ordered: 12/16/2023 [facility] Work Phone: Comment on above: Ordered: 12/16/2023 Urine culture [facility] Urine culture [facility] Immunizations Immunization Date Immunization Notes Care Provider Sushant cardoza 08-16-2024 influenza, high dose seasonal, preservative-free Dr. Kelvin Han MD Work Phone: [facility] 02-24-2023 influenza virus vaccine, unspecified formulation Matt Garcia MD Work Phone: [facility] 03-06-2022 Covid (Moderna) [facility] 03-01-2022 Influenza High-Dose Quadrivalent [facility] 03-01-2022 influenza virus vaccine, unspecified formulation Kelvin Han MD Work Phone: [facility] 10-14-2021 Covid (Moderna) [facility] 10-04-2021 Covid (Moderna) [facility] 04-03-2021 Covid (Moderna) [facility] 03-06-2021 Influenza High-Dose Quadrivalent [facility] 08-27-2020 [facility] (Moderna) [facility] 07-30-2020 [facility] (Moderna) [facility] 02-15-2020 influenza, injectabl e, quadrivalent, preservative free [facility] 03-23-2019 influenza, injectabl e, quadrivalent, preservative free [facility] 03-07-2018 influenza, injectabl e, quadrivalent, preservative free [facility] 02-27-2016 Influenza, high dose seasonal Dr. Kelvin Han MD Work Phone: [facility] 02-27-2016 influenza, high dose seasonal, preservative-free Kelvin Han MD Work Phone: [facility] Work Phone: 10-08-2015 pneumococcal conjuga te vaccine, 13 valent Kelvin Han MD Work Phone: [facility] Work Phone: 03-04-2015 influenza virus vaccine, unspecified formulation Kelvin Han MD Work Phone: [facility] 03-04-2015 influenza, injectabl e, quadrivalent, preservative free [facility] 05-29-2014 influenza, injectabl e, quadrivalent, preservative free [facility] 05-29-2014 influenza, seasonal, injectable Kelvin Han MD Work Phone: [facility] 02-26-2014 pneumococcal polysaccharide vaccine, 23 valent Kelvin Han MD Work Phone: [facility] 10-26-2012 tetanus toxoid, redu chasidy diphtheria toxoid, and acellular pertussis vaccine, adsorbed Kelvin Han MD Work Phone: [facility] 10-26-2012 zoster vaccine, live Eduardo cade Han MD Work Phone: [facility] 06-19-2012 influenza virus vaccine, unspecified formulation Kelvin Han MD Work Phone: [facility] 06-19-2012 influenza, injectabl e, quadrivalent, preservative free [facility] 06-06-2002 diphtheria and tetan us toxoids, adsorbed for pediatric use Kelvin Han MD Work Phone: [facility] Work Phone: Payers Date Payer Category Payer Self-pay [id number] 2021 Private Health Insurance AETNA S UPPLEMENT AETNA MEDICARE SUPPLEMENT [id number] 2021-Present [phone] [address] [address] [place] [address] Indemnity [id number] 2021 Private Health Insurance [facility] [id number] 2012 Medicare MEDICARE MEDICAR E A AND B [id number] 2012-Present [phone] [address] [address] [place] [address] Medicare [id number] 2012 Medicare [id number] 2012 Unknown [id number] 2012 Unknown HOSPITAL[facility]MEDICAL GENERIC MEDICAL GENERIC [id number] 2012-Present [phone] [address] [address] [place] [address] Indemnity [id number] 2012 Medicare [id number] Unknown [id number] Unknown [id number] 2.16.840.1.563049.3.579.2. 462 Unknown [id number] 2.16.840.1.258375.3.579.2. 462 Unknown [id number] 2.16.840.1.785018.3.579.2. 462 Unknown [id number] 2.16.840.1.112504.3.579.2. 462 Unknown [id number] 2.16.840.1.694648.3.579.2. 462 Unknown [id number] 2.16.840.1.245765.3.579.2. 462 Unknown [id number] 2.16.840.1.078306.3.579.2. 462 Unknown [id number] 2.16.840.1.821116.3.579.2. 462 Unknown [id number] 2.16.840.1.463510.3.579.2. 462 Unknown [id number] 2.16.840.1.463578.3.579.2. 462 Unknown [id number] 2.16.840.1.242309.3.579.2. 462 Unknown [id number] 2.16.840.1.381115.3.579.2. 462 Unknown [id number] 2.16.840.1.356458.3.579.2. 462 Unknown [id number] 2.16.840.1.395877.3.579.2. 462 Unknown [id number] 2.16.840.1.998045.3.579.2. 462 Unknown [id number] 2.16.840.1.717620.3.579.2. 462 Unknown [id number] 2.16.840.1.411235.3.579.2. 462 Unknown [id number] 2.16840.1.444450.3.579.2. 462 Unknown [id number] 2.16840.1.255535.3.579.2. 462 Unknown [id number] 2.840.1.979163.3.579.2. 462 Unknown [id number] 2.840.1.409162.3.579.2. 462 Unknown [id number] 2.840.1.167570.3.579.2. 462 Unknown [id number] 2.840.1.833821.3.579.2. 462 Unknown [id number] 2.840.1.057409.3.579.2. 462 Unknown [id number] 2.840.1.664503.3.579.2. 462 Unknown [id number] 2.840.1.942385.3.579.2. 462 Unknown [id number] 2.840.1.579015.3.579.2. 462 Unknown [id number] 2.840.1.028392.3.579.2. 462 Unknown [id number] 2.16840.1.169844.3.579.2. 462 Unknown [id number] 2.16840.1.083983.3.579.2. 462 Unknown [id number] 2.16.840.1.357406.3.579.2. 462 Unknown [id number] 2.16840.1.751097.3.579.2. 462 Unknown [id number] 2.16.840.1.858017.3.579.2. 462 Unknown [id number] 2.16.840.1.025004.3.579.2. 462 Unknown [id number] 2.16.840.1.203706.3.579.2. 462 Unknown [id number] 2.16840.1.054733.3.579.2. 462 Unknown [id number] 2.840.1.029245.3.579.2. 462 Unknown [id number] 2.840.1.990104.3.579.2. 462 Unknown [id number] 2.840.1.708740.3.579.2. 462 Unknown [id number] 2.840.1.261668.3.579.2. 462 Unknown [id number] 2.840.1.859778.3.579.2. 462 Unknown [id number] 2.840.1.129994.3.579.2. 462 Unknown [id number] 2.840.1.955749.3.579.2. 462 Unknown [id number] 2.840.1.380821.3.579.2. 462 Unknown [id number] 2.840.1.420470.3.579.2. 462 Unknown [id number] 2.840.1.765099.3.579.2. 462 Unknown [id number] 2.840.1.758351.3.579.2. 462 Unknown [id number] 2.840.1.750906.3.579.2. 462 Unknown [id number] 2.840.1.983964.3.579.2. 462 Unknown [id number] 2.840.1.325699.3.579.2. 462 Unknown [id number] 2.840.1.697464.3.579.2. 462 Unknown [id number] 2.16.840.1.346554.3.579.2. 462 Unknown [id number] 2.16.840.1.608720.3.579.2. 462 Unknown [id number] 2.16.840.1.063493.3.579.2. 462 Unknown [id number] 2.16.840.1.548620.3.579.2. 462 Unknown [id number] 2.16.840.1.223281.3.579.2. 462 Unknown [id number] 2.16.840.1.600450.3.579.2. 462 Unknown [id number] 2.16.840.1.966700.3.579.2. 462 Unknown [id number] 2.16.840.1.651618.3.579.2. 462 Social History Date Type Detail Facility Start: 12-08-2018 End: 10-15-2023 Tobacco smoking status IDIS Unknown if ever smoked [facility] Start: 12-08-2018 Non-smoker [facility] Start: 1945 Sex Assigned At Male [facility] Start: 07-23-2011 End: 11-13-2024 Tobacco smoking status IDIS Never smoked tobacco [facility] Start: 07-23-2011 Tobacco use and exposure Smokeless tobacco non-user [facility] Start: 02-11-2023 End: 03-02-2024 Alcohol intake Current non-drinker of alcohol (finding) [facility] Start: 02-11-2023 End: 12-23-2023 History of Social function [facility] Work Phone: Start: 02-11-2023 End: 12-23-2023 Tobacco use panel [facility] Work Phone: How hard is it for y ou to pay for the very basics like food, housing, medical care, and heating Not hard at all [facility] Work Phone: (I/We) worried duncan er (my/our) food would run out before (I/we) got money to buy more. Never true [facility] Work Phone: In the past 12 month s, was there a time when you were not able to pay the mortgage or rent on time? No [facility] Work Phone: Start: 1945 Sex Assigned At Not on file [facility] Start: 12-09-2023 Gender identity Identifies as male gender (finding) [facility] Start: 12-09-2023 Sexual orientation Heterosexual (fin ding) [facility] Start: 08-14-2024 End: 09-24-2024 Sex Male (finding) [facility] Goals Date Patient Goal Desired Activity /State Functional Status Date Assessment Result Facility 08-20-2024 Functional status Chair [facility] Work Phone: 02-21-2023 Functional status Activity Ability Indepe ndent [facility] Work Phone: 02-20-2023 Functional status Patient Activity Up ad lori [facility] Work Phone: 02-17-2023 Functional status Ambulates [facility] Work Phone: Mental Status Date Assessment Result Facility 08-20-2024 Cognitive function Voice/Name [facility] Work Phone: 03-01-2023 Cognitive function Level Of Cons ciousness Awake;Alert;Appropriate;Follow s Commands [facility] Work Phone: 02-21-2023 Cognitive function Voice/Name [facility] Work Phone: 02-17-2023 Cognitive function Voice/Name [facility] Work Phone: Clinical Notes 07-06-2011 to 08-20-2024 Note Date & Type Note Facility 08-20-2024 Consult note [facility] 08-20-2024 Progress note [facility] 08-20-2024 Discharge summary Note Date/Time August 20, 2024 2:03pm [facility] Medical Records Department [address] [place] [address] Discharge Summary 08/20/24 1228 MR#: [id number] Acct: [id number] Name: BARBARA MILAN Rep #:[id number] 14 : 1945 78 From: Jameel Gipson PCP: Dr. Kelvin Han MD Status :ADM IN Location: [address] [address] Providers Date of Admission: 08/14/24 Date of Discharge: 08/20/24 Primary Care Physician: Dr. Kelvin Han MD Consultations 08/15/24 00:05 Consult: Pharmacist Helper / Pulmonary Medicine Routine Consulting Provider: Intensivists/Pulmonary Med Reason for Consult: Sepsis with UTI and Leukopenia. EMERGENT Consult: No MD Notified: Yes Date Notified: 08/15/24 Time Notified: 07:48 Method of Notification: Verbal 08/15/24 01:00 Consult: Urology Routine Consulting Provider: Zhao Gilliland Reason for Consult: History of Prostate Cancer with ? bladder lesion on CT. EMERGENT Consult: No Notified: Yes Date Notified: 08/15/24 Time Notified: 01:00 Method of Notification: Answering Service 08/17/24 07:41 Consult: Infectious Disease Routine Consulting Provider: Cameron Giron Reason for Consult: septic shock 2/2 Providencia rettgeri w/ chronic indwelling worthy EMERGENT Consult: No Notified: Yes Date Notified: 08/17/24 Time Notified: 07:41 Method of Notification: Text Reason For Visit: SEPSIS, UTI, LEUKOPENIA & RIGHT FLANK PAIN WITH Diagnosis Discharge Diagnosis (1) Sepsis: Status: Acute Code(s): A41.9 - Sepsis, unspecified organism Qualifiers: Acute renal failure type: unspecified Sepsis acute organ dysfunction status: with acute organ dysfunction Sepsis type: sepsis due to unspecified organism Severe sepsis acute organ dysfunction type: acute renal failure Severe sepsis shock status: with septic shock Qualified Code(s): A41.9 - Sepsis,unspecified organism; R65.21 - Severe sepsis with septic shock; N17.9 - Acute kidney failure, unspecified (2) UTI (urinary tract infection) due to urinary indwelling catheter: Status: Acute Code(s): T83.511A - Infection and inflammatory reaction due to indwelling urethral catheter, initial encounter; N39.0 - Urinary tract infection, site not specified Qualifiers: Encounter type: initial encounter Indwelling urinary catheter type: cystostomy catheter Qualified Code(s): T83.510A - Infection and inflammatory reaction due to cystostomy catheter, initial encounter; N39.0 - Urinary tract infection, site not specified Plan This 78-year-old gentleman was admitted with sudden onset of right flank pain onthe day of admission along with intermittent bladder spasm and hematuria after the spasm. Patient reported chills and fever. In ED, diagnosis was made septicshock and was admitted in ICU # Septic shock gram-negative UTI in the setting of chronic suprapubic catheter-blood culture growing Providencia rettgeri -Patient febrile in the ED with temp of 102.9, tachycardic with heart rate in 140s, blood pressure in the ED down to 75/50 with a MAP of 58 with respiratory rate of 38, patient's O2 sat also decreased necessitating 2 L of nasal cannula in place, patient with bicarb of 17.4 in the ED with gap of 17, lactic acid of 4.2 and increasing creatinine up to 1.69 with baseline seemingly closer to 1.3 -UA suggestive of UTI -CT scan also suggestive of possible cystitis -Blood and urine cultures ordered -Ucx +, organism and sensitivity data pending, blood cultures 2 out of 2 also positive for gram-negative rods -Patient started on Zosyn -Patient received 3 L IV fluid and has remained hypotensive so norepinephrine ordered -Patient presently admitted in the ICU, automatic pinsetter mechanic consulted -08/16: Urine culture and sensitivity data pending, blood cultures positive, alsopending sensitivities, patient remains on Zosyn, patient off of norepinephrine and is significantly improving, changed to PCU status -08/17: Patient growing Providencia rettgeri and blood culture, ID consulted, patient seem to improve on Zosyn however sensitivities revealed this is resistant to Zosyn, will switch to Levaquin while awaiting further ID input -08/18: Blood culture with Providencia rettgeri, urine culture growing Providencia rettgeri and ?myroides, and possible enteric coccus, patient placed on Rocephin by ID, following cultures for final antibiotic plan -08/19: Patient presently vitally stable and afebrile, white count has normalized, continue antibiotics 08/20: Patient has mild cough. Incentive spirometry ordered. Afebrile. PT and OT ordered. Patient did follow-up with ID and recommended levofloxacin 500 mg daily for 5 more days. # Polymicrobial UTI -08/19: Growing Providencia rettgeri which is also been growing in the blood, also growing myroides and possible enteric coccus in urine, given myroides sensitivities Doxy was added, gram-positive cocci possible enteric coccus final culture and sensitivity still pending. Appreciate ID recommendations this week for final antibiotic plan once all sensitivities available 08/20 urine culture and sensitivity reviewed. Shows [facility], Myroides and Enterococcus # Creatinine elevation from baseline in setting of mild to moderate right hydroureteronephrosis -Patient's creatinine 1.69, baseline seems closer to 1.3 -CT scan in the ED showed mild/moderate right hydroureteronephrosis without obstructing calculus, underlying obstructive bladder lesion not excluded and it was recommended further assessment with nonemergent CT urogram and/or direct visualization -Patient has previously seen Dr. Gilliland, Dr. Gilliland consulted but it is suspected this is chronic and there is no current plan for intervention, patientto be monitored -08/16: Creatinine has begun to downtrend, today is 1.8 -08/17: Further improving now that infection/septic shock improving, creatinine 1.46 today. Patient will need to follow-up with urology on outpatient basis forhis chronic Worthy but no acute intervention planned -08/18: Continued improvement with treatment of infection -08/19: Creatinine 1.18 today, significantly improved, no further acute management necessary 08/20 creatinine is on baseline. Hold lisinopril for 5 more days follow-up with PCP with BMP and resume lower dose. Patient was on lisinopril 40 mg twice dailyas seen home medication #Hypertension -Patient with septic shock, hold amlodipine, lisinopril, terazosin -08/16: Continue to hold medications, patient off Levophed, as patient improves can add back medications as tolerated -08/17: Patient still on midodrine, will DC given patient's stable blood pressure, add back blood pressure medications as tolerated but will continue hold at this time, most recent blood pressure 116/74 -08/18: Patient's blood pressure stable with midodrine discontinued but a.m. blood pressure 107/67, hold off on adding back home antihypertensives at this time -08/19: AM blood pressure 119/69, vitally stable but not yet ready to add back oral antihypertensives # Diarrhea -08/18: Could be due to antibiotics or vitamin C or zinc but will check C. difficile and stool panel to verify no infection, if nothing identified can givepatient an antidiarrheal agent -08/19: Vitamin C stopped as was zinc, C. difficile and stool studies negative soloperamide as needed added 08/20 diarrhea resolved. Enteric pathogen panel and C. difficile negative. Advised probiotic [id number] for 1 week Chronic medical problems: # History of prostate cancer Patient has a history of Prostate cancer status post radical prostatectomy in 2011. He had recurrence of cancer in 2015 and required radiation and subsequentbladder neck contracture. In November 2023 required suprapubic catheter. -PSA undetectable #DVT ppx: SCDs Discharge medication reconciliation done. Discharge follow-up instructions completed. Discharge process discussed with the patient and all questions wereanswered to patient's satisfaction. Follow with PCP in 1 to 2 weeks Total time spent, exact 35 minutes on discharge meds reconciliation, examination, coordination of care with nurses and ancillary staff, review of imaging and blood test and discussion with the patient on follow-up instructions. Medications at Discharge Home Medications amlodipine 10 mg tablet 10 mg PO DAILY BLOOD PRESSURE 12/08/18 lisinopril 40 mg tablet 40 mg PO BID BLOOD PRESSURE 12/08/18 Held on 08/20/24. Instructions: Hold for 5 more days and resume lower dose of lisinopril terazosin 5 mg capsule 5 mg PO QPM BLOOD PRESSURE 12/08/18 multivit,Ca,min-iron 8 mg-folic acid 200 mcg-lycopene 600 mcg tablet (A Thru Z Men's Ultimate) 1 tab PO DAILY SUPPLEMENT 11/04/23 L.acidophil,salivari-Bifido bifidum-Strep thermoph 175 mg capsule 1 cap PO 2XD #0 caps 08/20/24 levofloxacin 500 mg tablet 500 mg PO DAILY 5 days #5 tabs 08/20/24 Physical Exam Narrative Seen and examined. Patient has a history of Prostate cancer status post radicalprostatectomy in 2011. He had recurrence of cancer in 2015 and required radiation. In November 2023 required suprapubic catheter. Patient was admitted on 08/14 secondary to septic shock due to UTI. Has mild cough. Moving bowel. Physical exam General: Alert, Oriented x3, Cooperative. BMI 29.6 kg per square HEENT: Mild bilateral hearing impairment atraumatic, PERRLA, EOMI, Normocephalic Oral: No Gingival or Mucosal Lesions/ Ulcerations Neck: Supple, No JVD, Negative Carotid Bruits Chest wall/Lungs: Air entry diminished in bilateral lung bases. No crepitation/rhonchi Cardiovascular: Regular rate, Regular Rhythm, Normal S1, Normal S2, No M/G/R Abdomen: Bowel Sounds Present, Soft, Non Tender, Non-Distended : Suprapubic catheter. No renal angle tenderness. No suprapubic tenderness. Extremities: No edema, Capillary Refill Less than 3 Seconds Skin: No rashes, No breakdown Musculoskeletal: No Tenderness to Palpation of Joints or Extremities Neurological: Cranial nerves II-XII grossly intact, DTR 2+/4. No acute focal neurological deficit. Psych/Mental Status: Flat affect Weight / BMI Weight Weight: 200 lb 2.876 oz Body Mass Index (BMI) 29.6 ABG / Lab / Microbiology Data 08/20/24 03:47 08/20/24 03:47 Laboratory: Laboratory Results - last 24 hr 08/20/24 03:47: WBC 8.0, RBC 3.58 L, Hgb 10.0 L, Hct 30.0 L, MCV 83.8, MCH 27.9,MCHC 33.3, RDW Std Deviation 46.3 H, RDW Coeff of Jerry 15.1 H, Plt Count 250, MPV10.7, Neut % (Auto) Not Reportable, Absolute Neuts (auto) 5.9, Absolute Lymphs (auto) 0.88, Total Counted 100, Neutrophils % (Manual) 73 H, Lymphocytes % (Manual) 11 L, Monocytes % (Manual) 7, Eosinophils % (Manual) 4, Metamyelocytes % 1, Myelocytes % 3 H, Promyelocytes % 1 H, Diff Path Review October, Sodium 137, Potassium 3.9, Chloride 107, Carbon Dioxide 20.6 L, Anion Gap 10, BUN 12, Creatinine 1.18, Estim Creat Clear Calc 59.31, Est GFR (MDRD) Non-Af 64, BUN/Creatinine Ratio 10.0, Glucose 98, Calcium 8.4 Microbiology: Microbiology 08/14/24 22:06 Blood Culture (Wb) - Anticubital Left Blood Culture - Final Gram negative aziza 08/14/24 21:40 Blood Culture (Wb) - Arm Left Blood Culture - Final Providencia rettgeri 08/14/24 22:06 Urine Catheter - Worthy Urine Culture - Final Providencia rettgeri Myroides spp Enterococcus faecalis 08/19/24 07:25 Stool Enteric Bacteriology - Final 08/19/24 07:25 Stool Clostridioides difficile (PCR) - Final 08/14/24 21:40 Mucosa - Nose SARS-CoV-2, Influenza & RSV (PCR) - Final D/C Instructions Discharge Diet: No restrictions Weight Bearing Status: Weight bearing as tolerated Call your doctor if you observe: Fever of 101 or Higher, Coldness, Increased Pain, Numbness or Tingling, Change in Color, Inability to urinate, Inability to have a bowel movement, Shortness of breath, Dizziness, Fainting spells, Swellingin the ankles, Chest pain, Prolonged hiccupping, Increased palpitations (irregular heartbeat) and Calf discomfort DC O2, CPAP, BIPAP Needs Home O2 Discharge instructions: No When: IN 2 WEEKS Meaningful Use Info Meaningful Use Meaningful Use Diagnoses (Choose all that apply): None applicable Ischemic Stroke Statin Dosing Therapy Reference: STATIN DOSE THERAPY REFERENCE: * Patients > 75 years receive moderate or high dose statin therapy. * Patients 75 years or YOUNGER should receive HIGH intensity statin dose unless contraindicated. You will be required to document reason for non-treatment if statin daily dose does not meet guidelines. HIGH DOSE STATIN THERAPY DAILY Atorvastatin > than or = to 40 mg Rosuvastatin > than or = to 20 mg Amlodipine + Atorvastatin > than or = to 2.5/40 mg Ezetimibe + Simvastatin 10/80 mg Simvastatin 80mg Discharge Plan Admission Admit Date/Time: 08/14/24 23:36 Primary Reason for Your Visit: Septic shock due to CAUTI. Attending Provider: Jameel Herrera Primary Care Provider: Kelvin Han Consulting Providers: Rajinder Acosta; Zhao Gilliland; Cameron Giron; Juany Souza Discharge Orders/Prescriptions Prescriptions: Joshua Davis,liliane-B.bif-S.therm 175 mg Capsule 1 cap PO 2XD Qty: 0 0RF Rx Instructions: Zsrf-nkn-nsxraco for 1 week. levofloxacin 500 mg tablet 500 mg PO DAILY 5 Days Qty: 5 0RF Continued terazosin 5 MG capsule 5 mg PO QPM amlodipine 10 MG tablet 10 mg PO DAILY A Thru Z Men's Ultimate 8 mg iron- 200 mcg-600 mcg tablet 1 tab PO DAILY Held lisinopril 40 MG tablet 40 mg PO BID Hold Instructions: Hold for 5 more days and resume lower dose of lisinopril Referrals / Follow Up: Kelvin Han MD [Primary Care Provider] - ([employer] called the office and they were closed for lunch. Please schedule your follow up appointment. ) Zhao Gilliland MD [Med Staff - Active Staff] - Within 1 Month (For suprapubic catheter.) Cameron Giron MD [Med Staff - Active Staff] - Within 1 Month (As needed.) Disposition Disposition (needs filled in before D/C Order can be placed): Home Health Service Charges/Coding Visit Charges Inpatient E&M: 72750 Disch Hosp >30min 08/20/24 1403 <Electronically signed by Jameel Herrera MD> Cosigner Signature (if applicable): CC: Dr. Kelvin Han MD; Dr. Zhao Gilliland MD; Dr. Jameel Herrera MD~ Signed [facility] Work Phone: [phone] 674-379503-17-2025 Discharge summary Author Jameel Herrera [facility] Note Date/Time August 20, 2024 12: 27pm [facility] Medical Records Department [address] [place] [address] Instructions for Home/Discharge Instructions 08/20/24 1013 MR#: [id number] Acct: [id number] Name: BARBARA MILAN MONI Rep #:[id number] : 1945 78 From: Jameel Gipson PCP: Dr. Kelvin Han MD Status :ADM IN Discharge Instructions Diet Discharge Diet: No restrictions DC O2, CPAP, BIPAP needs Home O2 Discharge instructions: No Dressing / Incision Discharge Activity: Return to Normal Activity Weight Bearing Status: Weight bearing as tolerated Dressing / Incision Call your doctor if you observe: Fever of 101 or Higher, Coldness, Increased Pain, Numbness or Tingling, Change in Color, Inability to urinate, Inability to have a bowel movement, Shortness of breath, Dizziness, Fainting spells, Swellingin the ankles, Chest pain, Prolonged hiccupping, Increased palpitations (irregular heartbeat) and Calf discomfort Follow Up Care When: IN 2 WEEKS Test Results: Test results from this visit will be discussed in further detail at your follow- up appointment, if applicable. Discharge Plan Admission Admit Date/Time: 08/14/24 23:36 Primary Reason for Your Visit: Septic shock due to CAUTI. Attending Provider: Jameel Herrera Primary Care Provider: Kelvin Han Consulting Providers: Rajinder Acosta; Zhao Gilliland; Cameron Giron; Juany Souza Discharge Orders/Prescriptions Prescriptions: Audra Alexander-S.therm 175 mg Capsule 1 cap PO 2XD Qty: 0 0RF Rx Instructions: Qyim-lop-lkmjnsq for 1 week. levofloxacin 500 mg tablet 500 mg PO DAILY 5 Days Qty: 5 0RF Continued terazosin 5 MG capsule 5 mg PO QPM amlodipine 10 MG tablet 10 mg PO DAILY A Thru Z Men's Ultimate 8 mg iron- 200 mcg-600 mcg tablet 1 tab PO DAILY Held lisinopril 40 MG tablet 40 mg PO BID Hold Instructions: Hold for 5 more days and resume lower dose of lisinopril Referrals / Follow Up: Kelvin Han MD [Primary Care Provider] - ([employer] called the office and they were closed for lunch. Please schedule your follow up appointment. ) Zhao Gilliland MD [Med Staff - Active Staff] - Within 1 Month (For suprapubic catheter.) Cameron Giron MD [Med Staff - Active Staff] - Within 1 Month (As needed.) Disposition Disposition (needs filled in before D/C Order can be placed): Home Health Service 08/20/24 1227<Electronically signed by Jameel Herrera MD>Jameel Herrera MD CC: Dr. Kelvin Han MD; Dr. Rajinder Acosta DO; Dr. hZao Gilliland MD; Dr. Juany Souza MD; Dr. Cameron Giron MD ~ Signed [facility] Work Phone: [phone]) 430-142203-17-2025 Discharge summary [facility] Medical Records Department [address] [place] [address] Discharge Summary 08/20/24 1228 MR#: [id number] Acct: [id number] Name: BARBARA MILAN MONI Rep #:[id number] : 1945 78 From: Jameel Gipson PCP: Dr. Kelvin Han MD Status :ADM IN Location: [facility] [id number] Providers Date of Admission: 08/14/24 Date of Discharge: 08/20/24 Primary Care Physician: Dr. Kelvin Han MD Consultations 08/15/24 00:05 Consult: Pharmacist Helper / Pulmonary Medicine Routine Consulting Provider: Intensivists/Pulmonary Med Reason for Consult: Sepsis with UTI and Leukopenia. EMERGENT Consult: No MD Notified: Yes Date Notified: 08/15/24 Time Notified: 07:48 Method of Notification: Verbal 08/15/24 01:00 Consult: Urology Routine Consulting Provider: Zhao Gilliland Reason for Consult: History of Prostate Cancer with ? bladder lesion on CT. EMERGENT Consult: No Notified: Yes Date Notified: 08/15/24 Time Notified: 01:00 Method of Notification: Answering Service 08/17/24 07:41 Consult: Infectious Disease Routine Consulting Provider: Cameron Giron Reason for Consult: septic shock 2/2 Providencia rettgeri w/ chronic indwelling worthy EMERGENT Consult: No MD Notified: Yes Date Notified: 08/17/24 Time Notified: 07:41 Method of Notification: Text Reason For Visit: SEPSIS, UTI, LEUKOPENIA & RIGHT FLANK PAIN WITH Diagnosis Discharge Diagnosis (1) Sepsis: Status: Acute Code(s): A41.9 - Sepsis, unspecified organism Qualifiers: Acute renal failure type: unspecified Sepsis acute organ dysfunction status: with acute organ dysfunction Sepsis type: sepsis due to unspecified organism Severe sepsis acute organ dysfunction type: acute renal failure Severe sepsis shock status: with septic shock Qualified Code(s): A41.9 - Sepsis,unspecified organism; R65.21 - Severe sepsis with septic shock; N17.9 - Acute kidney failure, unspecified (2) UTI (urinary tract infection) due to urinary indwelling catheter: Status: Acute Code(s): T83.511A - Infection and inflammatory reaction due to indwelling urethral catheter, initial encounter; N39.0 - Urinary tract infection, site not specified Qualifiers: Encounter type: initial encounter Indwelling urinary catheter type: cystostomy catheter Qualified Code(s): T83.510A - Infection and inflammatory reaction due to cystostomy catheter, initial encounter; N39.0 - Urinary tract infection, site not specified Plan This 78-year-old gentleman was admitted with sudden onset of right flank pain onthe day of admission along with intermittent bladder spasm and hematuria after the spasm. Patient reported chills and fever. In ED, diagnosis was made septicshock and was admitted in ICU # Septic shock gram-negative UTI in the setting of chronic suprapubic catheter- blood culture growing Providencia rettgeri -Patient febrile in the ED with temp of 102.9, tachycardic with heart rate in 140s, blood pressure in the ED down to 75/50 with a MAP of 58 with respiratory rate of 38, patient's O2 sat also decreased necessitating 2 L of nasal cannula in place, patient with bicarb of 17.4 in the ED with gap of 17,lactic acid of 4.2 and increasing creatinine up to 1.69 with baseline seemingly closer to 1.3 -UA suggestive of UTI -CT scan also suggestive of possible cystitis -Blood and urine cultures ordered -Ucx +, organism and sensitivity data pending, blood cultures 2 out of 2 also positive for gram-negative rods -Patient started on Zosyn -Patient received 3 L IV fluid and has remained hypotensive so norepinephrine ordered -Patient presently admitted in the ICU, automatic pinsetter mechanic consulted -08/16: Urine culture and sensitivity data pending, blood cultures positive, alsopending sensitivities, patient remains on Zosyn, patient off of norepinephrine and is significantly improving, changed to PCU status -08/17: Patient growing Providencia rettgeri and blood culture, ID consulted, patient seem to improve on Zosyn however sensitivities revealed this is resistant to Zosyn, will switch to Levaquin while awaiting further ID input -08/18: Blood culture with Providencia rettgeri, urine culture growing Providencia rettgeri and ?myroides, and possible enteric coccus, patient placed on Rocephin by ID, following cultures for final antibiotic plan -08/19: Patient presently vitally stable and afebrile, white count has normalized, continue antibiotics 08/20: Patient has mild cough. Incentive spirometry ordered. Afebrile. PT and OT ordered. Patient did follow-up with ID and recommended levofloxacin 500 mg daily for 5 more days. # Polymicrobial UTI -08/19: Growing Providencia rettgeri which is also been growing in the blood, also growing myroides and possible enteric coccus in urine, given myroides sensitivities Doxy was added, gram-positive cocci possible enteric coccus final culture and sensitivity still pending. Appreciate ID recommendations this week for final antibiotic plan once all sensitivities available 08/20 urine culture and sensitivity reviewed. Shows [facility], Myroides and Enterococcus # Creatinine elevation from baseline in setting of mild to moderate right hydroureteronephrosis -Patient's creatinine 1.69, baseline seems closer to 1.3 -CT scan in the ED showed mild/moderate right hydroureteronephrosis without obstructing calculus, underlying obstructive bladder lesion not excluded and it was recommended further assessment with nonemergent CT urogram and/or direct visualization -Patient has previously seen Dr. Gilliland, Dr. Gilliland consulted but it is suspected this is chronic and there is no current plan for intervention, patientto be monitored -08/16: Creatinine has begun to downtrend, today is 1.8 -08/17: Further improving now that infection/septic shock improving, creatinine 1.46 today. Patient will need to follow-up with urology on outpatient basis forhis chronic Worthy but no acute intervention planned -08/18: Continued improvement with treatment of infection -08/19: Creatinine 1.18 today, significantly improved, no further acute management necessary 08/20 creatinine is on baseline. Hold lisinopril for 5 more days follow-up with PCP with BMP and resume lower dose. Patient was on lisinopril 40 mg twice dailyas seen home medication #Hypertension -Patient with septic shock, hold amlodipine, lisinopril, terazosin -08/16: Continue to hold medications, patient off Levophed, as patient improves can add back medications as tolerated -08/17: Patient still on midodrine, will DC given patient's stable blood pressure, add back blood pressure medications as tolerated but will continue hold at this time, most recent blood pressure 116/74 -08/18: Patient's blood pressure stable with midodrine discontinued but a.m. blood pressure 107/67, hold off on adding back home antihypertensives at this time -08/19: AM blood pressure 119/69, vitally stable but not yet ready to add back oral antihypertensives # Diarrhea -08/18: Could be due to antibiotics or vitamin C or zinc but will check C. difficile and stool panelto verify no infection, if nothing identified can givepatient an antidiarrheal agent -08/19: Vitamin C stopped as was zinc, C. difficile and stool studies negative soloperamide as needed added 08/20 diarrhea resolved. Enteric pathogen panel and C. difficile negative. Advised probiotic uybe-can-xjzfxbn for 1 week Chronic medical problems: # History of prostate cancer Patient has a history of Prostate cancer status post radical prostatectomy in 2011. He had recurrence of cancer in 2015 and required radiation and subsequentbladder neck contracture. In November 2023 required suprapubic catheter. -PSA undetectable #DVT ppx: SCDs Discharge medication reconciliation done. Discharge follow-up instructions completed. Discharge process discussed with the patient and all questions wereanswered to patient's satisfaction. Follow with PCP in 1 to 2 weeks Total time spent, exact 35 minutes on discharge meds reconciliation, examination, coordination of care with nurses and ancillary staff, review of imaging and blood test and discussion with the patient on follow-up instructions. Medications at Discharge Home Medications amlodipine 10 mg tablet 10 mg PO DAILY BLOOD PRESSURE 12/08/18 lisinopril 40 mg tablet 40 mg PO BID BLOOD PRESSURE 12/08/18 Held on 08/20/24. Instructions: Hold for 5 more days and resume lower dose of lisinopril terazosin 5 mg capsule 5 mg PO QPM BLOOD PRESSURE 12/08/18 multivit,Ca,min-iron 8 mg-folic acid 200 mcg-lycopene 600 mcg tablet (A Thru Z Men's Ultimate) 1 tab PO DAILY SUPPLEMENT 11/04/23 L.acidophil,salivari-Bifido bifidum-Strep thermoph 175 mg capsule 1 cap PO 2XD #0 caps 08/20/24 levofloxacin 500 mg tablet 500 mg PO DAILY 5 days #5 tabs 08/20/24 Physical Exam Narrative Seen and examined. Patient has a history of Prostate cancer status post radicalprostatectomy in 2011. He had recurrence of cancer in 2015 and required radiation. In November 2023 required suprapubic catheter. Patient was admitted on 08/14 secondary to septic shock due to UTI. Has mild cough. Moving bowel. Physical exam General: Alert, Oriented x3, Cooperative. BMI 29.6 kg per square HEENT: Mild bilateral hearing impairment atraumatic, PERRLA, EOMI, Normocephalic Oral: No Gingival or Mucosal Lesions/ Ulcerations Neck: Supple, No JVD, Negative Carotid Bruits Chest wall/Lungs: Air entry diminished in bilateral lung bases. No crepitation/rhonchi Cardiovascular: Regular rate, Regular Rhythm, Normal S1, Normal S2, No M/G/R Abdomen: Bowel Sounds Present, Soft, Non Tender, Non-Distended : Suprapubic catheter. No renal angle tenderness. No suprapubic tenderness. Extremities: No edema, Capillary Refill Less than 3 Seconds Skin: No rashes, No breakdown Musculoskeletal: No Tenderness to Palpation of Joints or Extremities Neurological: Cranial nerves II-XII grossly intact, DTR 2+/4. No acute focal neurological deficit. Psych/Mental Status: Flat affect Weight / BMI Weight Weight: 200 lb 2.876 oz Body Mass Index (BMI) 29.6 ABG / Lab / Microbiology Data 08/20/24 03:47 08/20/24 03:47 Laboratory: Laboratory Results - last 24 hr 08/20/24 03:47: WBC 8.0, RBC 3.58 L, Hgb 10.0 L, Hct 30.0 L, MCV 83.8, MCH 27.9,MCHC 33.3, RDW Std Deviation 46.3 H, RDW Coeff of Jerry 15.1 H, Plt Count 250, MPV10.7, Neut % (Auto) Not Reportable, Absolute Neuts (auto) 5.9, Absolute Lymphs (auto) 0.88, Total Counted 100, Neutrophils % (Manual) 73 H,Lymphocytes % (Manual) 11 L, Monocytes % (Manual) 7, Eosinophils % (Manual) 4, Metamyelocytes % 1, Myelocytes % 3 H, Promyelocytes % 1 H, Diff Path Review October, Sodium 137, Potassium 3.9, Chloride 107, Carbon Dioxide 20.6 L, Anion Gap 10, BUN 12, Creatinine 1.18, Estim Creat Clear Calc 59.31, Est GFR (MDRD) Non-Af 64, BUN/Creatinine Ratio 10.0, Glucose 98, Calcium 8.4 Microbiology: Microbiology 08/14/24 22:06 Blood Culture (Wb) - Anticubital Left Blood Culture - Final Gram negative aziza 08/14/24 21:40 Blood Culture (Wb) - Arm Left Blood Culture - Final Providencia rettgeri 08/14/24 22:06 Urine Catheter - Worthy Urine Culture - Final Providencia rettgeri Myroides spp Enterococcus faecalis 08/19/24 07:25 Stool Enteric Bacteriology - Final 08/19/24 07:25 Stool Clostridioides difficile (PCR) - Final 08/14/24 21:40 Mucosa - Nose SARS-CoV-2, Influenza & RSV (PCR) - Final D/C Instructions Discharge Diet: No restrictions Weight Bearing Status: Weight bearing as tolerated Call your doctor if you observe: Fever of 101 or Higher, Coldness, Increased Pain, Numbness or Tingling, Change in Color, Inability to urinate, Inability to have a bowel movement, Shortness of breath, Dizziness, Fainting spells, Swellingin the ankles, Chest pain, Prolonged hiccupping, Increased palpitations (irregular heartbeat) and Calf discomfort DC O2, CPAP, BIPAP Needs Home O2 Discharge instructions: No When: IN 2 WEEKS Meaningful Use Info Meaningful Use Meaningful Use Diagnoses (Choose all that apply): None applicable Ischemic Stroke Statin Dosing Therapy Reference: STATIN DOSE THERAPY REFERENCE: * Patients > 75 years receive moderate or high dose statin therapy. * Patients 75 years or YOUNGER should receive HIGH intensity statin dose unless contraindicated. You will be required to document reason for non-treatment if statin daily dose does not meet guidelines. HIGH DOSE STATIN THERAPY DAILY Atorvastatin > than or = to 40 mg Rosuvastatin > than or = to 20 mg Amlodipine + Atorvastatin > than or = to 2.5/40 mg Ezetimibe + Simvastatin 10/80 mg Simvastatin 80mg Discharge Plan Admission Admit Date/Time: 08/14/24 23:36 Primary Reason for Your Visit: Septic shock due to CAUTI. Attending Provider: Jameel Herrera Primary Care Provider: Kelvin Han Consulting Providers: Rajinder Acosta; Zhao Gilliland; Cameron Giron; Juany Souza Discharge Orders/Prescriptions Prescriptions: New L.acidoph,saliva-B.bif-S.therm 175 mg Capsule 1 cap PO 2XD Qty: 0 0RF Rx Instructions: Efiq-cyf-gjymxwn for 1 week. levofloxacin 500 mg tablet 500 mg PO DAILY 5 Days Qty: 5 0RF Continued terazosin 5 MG capsule 5 mg PO QPM amlodipine 10 MG tablet 10 mg PO DAILY A Thru Z Men's Ultimate 8 mg iron- 200 mcg-600 mcg tablet 1 tab PO DAILY Held lisinopril 40 MG tablet 40 mg PO BID Hold Instructions: Hold for 5 more days and resume lower dose of lisinopril Referrals / Follow Up: Kelvin Han MD [Primary Care Provider] - ([place] called the office and they were closed for lunch. Please schedule your follow up appointment. ) Zhao Gilliland MD [Med Staff - Active Staff] - Within 1 Month (For suprapubic catheter.) Cameron Giron MD [Med Staff - Active Staff] - Within 1 Month (As needed.) Disposition Disposition (needs filled in before D/C Order can be placed): Home Health Service Charges/Coding Visit Charges Inpatient E&M: 30694 Disch Hosp >30min 08/20/24 1403 Cosigner Signature (if applicable): CC: Dr. Kelvin Han MD; Dr. Zhao Gilliland MD; Dr. Jameel Herrera MD~ Signed [facility]03-17-2025 [facility] Discharge summary [facility] Medical Records Department [address] [place] [address] Instructions for Home/Discharge Instructions 08/20/24 1013 MR#: [id number] Acct: [id number] Name: BARBARA MILAN MONI Rep #:[id number] : 1945 78 From: Jameel Gipson PCP: Dr. Kelvin Han MD Status :ADM IN Discharge Instructions Diet Discharge Diet: No restrictions DC O2, CPAP, BIPAP needs Home O2 Discharge instructions: No Dressing / Incision Discharge Activity: Return to Normal Activity Weight Bearing Status: Weight bearing as tolerated Dressing / Incision Call your doctor if you observe: Fever of 101 or Higher, Coldness, Increased Pain, Numbness or Tingling, Change in Color, Inability to urinate, Inability to have a bowel movement, Shortness of breath, Dizziness, Fainting spells, Swellingin the ankles, Chest pain, Prolonged hiccupping, Increased palpitations (irregular heartbeat) and Calf discomfort Follow Up Care When: IN 2 WEEKS Test Results: Test results from this visit will be discussed in further detail at your follow- up appointment, if applicable. Discharge Plan Admission Admit Date/Time: 08/14/24 23:36 Primary Reason for Your Visit: Septic shock due to CAUTI. Attending Provider: Jameel Herrera Primary Care Provider: Kelvin Han Consulting Providers: Rajinder Acosta; Zhao Gilliland; Cameron Giron; Juany Souza Discharge Orders/Prescriptions Prescriptions: Audra Alexander-S.therm 175 mg Capsule 1 cap PO 2XD Qty: 0 0RF Rx Instructions: Ikjh-pmf-xavikoc for 1 week. levofloxacin 500 mg tablet 500 mg PO DAILY 5 Days Qty: 5 0RF Continued terazosin 5 MG capsule 5 mg PO QPM amlodipine 10 MG tablet 10 mg PO DAILY A Thru Z Men's Ultimate 8 mg iron- 200 mcg-600 mcg tablet 1 tab PO DAILY Held lisinopril 40 MG tablet 40 mg PO BID Hold Instructions: Hold for 5 more days and resume lower dose of lisinopril Referrals / Follow Up: Kelvin Han MD [Primary Care Provider] - ([place] called the office and they were closed for lunch. Please schedule your follow up appointment. ) Zhao Gilliland MD [Med Staff - Active Staff] - Within 1 Month (For suprapubic catheter.) Cameron Giron MD [Med Staff - Active Staff] - Within 1 Month (As needed.) Disposition Disposition (needs filled in before D/C Order can be placed): Home Health Service 08/20/24 1227Jameel Herrera MD CC: Dr. Kelvin Han MD; Dr. Rajinder Acosta DO; Dr. Zhao Gilliland MD; Dr. Juany Souza MD; Dr. Cameron Giron MD ~ Signed [facility]03-16-2025 Progress note Author Juany [facility] Note Date/Time August 19, 2024 3:3 1pm [facility] Medical Records Department [address] [place] [address] Progress Note - Hospitalist 08/19/24902 MR#: [id number] Acct: [id number] Name: BARBARA MILAN Rep #:[id number] : 1945 78 From: Juany Souza MD PCP: Dr. 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) Bladder disorder, unspecified (08/14/24) Urinary tract infection, site not specified (08/14/24) Unspecified abdominal pain (08/14/24) Hematuria, unspecified (08/14/24) Severe sepsis with septic shock (08/14/24) Bacteremia (08/14/24) Infection and inflammatory reaction due to cystostomy catheter, initial encounter (08/14/24) Personal history of malignant neoplasm of prostate (08/14/24) 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) Subjective Subjective Has had some further diarrhea, no active vomiting, no significant abdominal pain, has been up ambulating the halls but is weak and has a little bit of difficulty with the prolonged ambulation Objective Data Objective Data Vital Signs: Vital Signs Temp Pulse Resp BP Pulse Ox O2 Del Method O2 Flow Rate 99.3 F H 80 16 119/69 97 Room Air 1 08/19/24 02:45 08/19/24 02:45 08/19/24 02:45 08/19/24 02:45 08/19/24 02:45 08/19/24 06:00 08/15/24 14:00 Oxygen Flow Rate (L/min) 1 Oxygen Delivery Method Room Air Weight: 90.8 kg Body Mass Index (BMI) 29.6 Intake & Output: Intake and Output for Last 24 Hours 08/17/24 08/18/24 08/19/24 23:59 23:59 23:59 Intake Total 646.25 / 646.25 400 / 500 200 / 200 Output Total 1050 / 1050 1150 / 1400 650 / 650 Balance -403.75 / -403.75 -750 / -900 -450 / -450 Lab / Micro Data 08/19/24 05:03 08/19/24 05:03 Labs: Laboratory Results - last 24 hr 08/19/24 05:03: WBC 8.4, RBC 3.69 L, Hgb 10.2 L, Hct 30.7 L, MCV 83.2, MCH 27.6,MCHC 33.2, RDW Std Deviation 47.1 H, RDW Coeff of Jerry 15.4 H, Plt Count 222, MPV10.7, Neut % (Auto) Not Reportable, Absolute Neuts (auto) 7.0, Absolute Lymphs (auto) 0.42 L, Total Counted 100, Neutrophils % (Manual) 83 H, Lymphocytes % (Manual) 5 L, Monocytes % (Manual) 8, Eosinophils % (Manual) 1, Metamyelocytes %1, Myelocytes % 2 H, Diff Path Review May foll, Platelet Estimate ADEQUATE, Microcytosis 1+, Ovalocytes 2+, Schistocytes RARE, Sodium 136, Potassium 3.9, Chloride 107, Carbon Dioxide 17.2 L, Anion Gap 12, BUN 14, Creatinine 1.18, Estim Creat Clear Calc 59.31, Est GFR (MDRD) Non-Af 64, BUN/Creatinine Ratio 11.6, Glucose 103 H, Calcium 8.4 Micro: Microbiology 08/14/24 22:06 Urine Catheter - Worthy Urine Culture - Preliminary Providencia rettgeri Myroides spp GPC Poss Enterococcus sp 08/14/24 21:40 Blood Culture (Wb) - Arm Left Blood Culture - Preliminary Providencia rettgeri 08/14/24 22:06 Blood Culture (Wb) - Anticubital Left Blood Culture - Preliminary Gram negative aziza 08/14/24 21:40 Mucosa - Nose SARS-CoV-2, Influenza & RSV (PCR) - Final Physical Exam Narrative General: Alert, no apparent distress HEENT: Atraumatic, normocephalic Eyes: Anicteric, normal conjunctiva, extraocular movements grossly intact Neck: Supple Respiratory: Normal respiratory effort, no significant rhonchi or wheezes Cardiovascular: Regular rate GI: Soft, nontender, hyperactive bowel sounds Extremities: No edema Musculoskeletal: Moving all extremities Neuro: No overt focal neurological deficits Skin: No rashes appreciated Psych: Cooperative Assessment & Plan Assessment/Plan (1) Sepsis: QUALIFIERS: Acute renal failure type: unspecified Sepsis acute organ dysfunction status: with acute organ dysfunction Sepsis type: sepsis due to unspecified organism Severe sepsis acute organ dysfunction type: acute renalfailure Severe sepsis shock status: with septic shock Qualified Code(s): A41.9- Sepsis, unspecified organism; R65.21 - Severe sepsis with septic shock; N17.9 - Acute kidney failure, unspecified (2) UTI (urinary tract infection) due to urinary indwelling catheter: QUALIFIERS: Encounter type: initial encounter Indwelling urinary catheter type: cystostomy catheter Qualified Code(s): T83.510A - Infection and inflammatory reaction due to cystostomy catheter, initial encounter; N39.0 - Urinary tract infection, site not specified PLAN: Plan # Septic shock gram-negative UTI in the setting of chronic suprapubic catheter- blood culture growing Providencia rettgeri -Patient febrile in the ED with temp of 102.9, tachycardic with heart rate in 140s, blood pressure in the ED down to 75/50 with a MAP of 58 with respiratory rate of 38, patient's O2 sat also decreased necessitating 2 L of nasal cannula in place, patient with bicarb of 17.4 in the ED with gap of 17, lactic acid of 4.2 and increasing creatinine up to 1.69 with baseline seemingly closer to 1.3 -UA suggestive of UTI -CT scan also suggestive of possible cystitis -Blood and urine cultures ordered -Ucx +, organism and sensitivity data pending, blood cultures 2 out of 2 also positive for gram-negative rods -Patient started on Zosyn -Patient received 3 L IV fluid and has remained hypotensive so norepinephrine ordered -Patient presently admitted in the ICU, automatic pinsetter mechanic consulted -08/16: Urine culture and sensitivity data pending, blood cultures positive, alsopending sensitivities, patient remains on Zosyn, patient off of norepinephrine and is significantly improving, changed to PCU status -08/17: Patient growing Providencia rettgeri and blood culture, ID consulted, patient seem to improve on Zosyn however sensitivities revealed this is resistant to Zosyn, will switch to Levaquin while awaiting further ID input -08/18: Blood culture with Providencia rettgeri, urine culture growing Providencia rettgeri and ?myroides, and possible enteric coccus, patient placed on Rocephin by ID, following cultures for final antibiotic plan -08/19: Patient presently vitally stable and afebrile, white count has normalized, continue antibiotics # Polymicrobial UTI -08/19: Growing Providencia rettgeri which is also been growing in the blood, also growing myroides and possible enteric coccus in urine, given myroides sensitivities Doxy was added, gram-positive cocci possible enteric coccus final culture and sensitivity still pending. Appreciate ID recommendations this week for final antibiotic plan once all sensitivities available # Creatinine elevation from baseline in setting of mild to moderate right hydroureteronephrosis -Patient's creatinine 1.69, baseline seems closer to 1.3 -CT scan in the ED showed mild/moderate right hydroureteronephrosis without obstructing calculus, underlying obstructive bladder lesion not excluded and it was recommended further assessment with nonemergent CT urogram and/or direct visualization -Patient has previously seen Dr. Gilliland, Dr. Gilliland consulted but it is suspected this is chronic and there is no current plan for intervention, patientto be monitored -08/16: Creatinine has begun to downtrend, today is 1.8 -08/17: Further improving now that infection/septic shock improving, creatinine 1.46 today. Patient will need to follow-up with urology on outpatient basis forhis chronic Worthy but no acute intervention planned -08/18: Continued improvement with treatment of infection -08/19: Creatinine 1.18 today, significantly improved, no further acute management necessary #Hypertension -Patient with septic shock, hold amlodipine, lisinopril, terazosin -08/16: Continue to hold medications, patient off Levophed, as patient improves can add back medications as tolerated -08/17: Patient still on midodrine, will DC given patient's stable blood pressure, add back blood pressure medications as tolerated but will continue hold at this time, most recent blood pressure 116/74 -08/18: Patient's blood pressure stable with midodrine discontinued but a.m. blood pressure 107/67, hold off on adding back home antihypertensives at this time -08/19: AM blood pressure 119/69, vitally stable but not yet ready to add back oral antihypertensives # Diarrhea -08/18: Could be due to antibiotics or vitamin C or zinc but will check C. difficile and stool panel to verify no infection, if nothing identified can givepatient an antidiarrheal agent -08/19: Vitamin C stopped as was zinc, C. difficile and stool studies negative soloperamide as needed added Chronic medical problems: # History of prostate cancer -Status post prostate removal and radiation therapy through [facility] with subsequent bladder neck contracture and ultimately suprapubic catheter -PSA undetectable #DVT ppx: SCDs Juany Souza MD Time spent in the patient's overall evaluation,decision-making process, review of diagnostic data, adjustment of management, discussion with other providers, nursing nursing and ancillary staff involved in patient's care documentation, 36minutes Charges/Coding Visit Charges Inpatient E&M: 26893 Subs Hosp L2 08/19/24 1531 <Electronically signed by Juany Souza MD> Cosigner Signature (if applicable): CC: ~ Signed [facility] Work Phone: [phone] Progress note [facility] Medical Records Department [address] [place] [address] Progress Note - Hospitalist 08/19/24 0903 MR#: [id number] Acct: [id number] Name: MARIANABARBARA MONI Rep #:[id number] : 1945 78 From: Juany Souza MD PCP: Dr. 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) Bladder disorder, unspecified (08/14/24) Urinary tract infection, site not specified (08/14/24) Unspecified abdominal pain (08/14/24) Hematuria, unspecified (08/14/24) Severe sepsis with septic shock (08/14/24) Bacteremia (08/14/24) Infection and inflammatory reaction due to cystostomy catheter, initial encounter (08/14/24) Personal history of malignant neoplasm of prostate (08/14/24) 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) Subjective Subjective Has had some further diarrhea, no active vomiting, no significant abdominal pain, has been up ambulating the halls but is weak and has a little bit of difficulty with the prolonged ambulation Objective Data Objective Data Vital Signs: Vital Signs Temp Pulse Resp BP Pulse Ox O2 Del Method O2 Flow Rate 99.3 F H 80 16 119/69 97 Room Air 1 08/19/24 02:45 08/19/24 02:45 08/19/24 02:45 08/19/24 02:45 08/19/24 02:45 08/19/24 06:00 08/15/24 14:00 Oxygen Flow Rate (L/min) 1 Oxygen Delivery Method Room Air Weight: 90.8 kg Body Mass Index (BMI) 29.6 Intake & Output: Intake and Output for Last 24 Hours 08/17/24 08/18/24 08/19/24 23:59 23:59 23:59 Intake Total 646.25 / 646.25 400 / 500 200 / 200 Output Total 1050 / 1050 1150 / 1400 650 / 650 Balance -403.75 / -403.75 -750 / -900 -450 / -450 Lab / Micro Data 08/19/24 05:03 08/19/24 05:03 Labs: Laboratory Results - last 24 hr 08/19/24 05:03: WBC 8.4, RBC 3.69 L, Hgb 10.2 L, Hct 30.7 L, MCV 83.2, MCH 27.6,MCHC 33.2, RDW Std Deviation 47.1 H, RDW Coeff of Jerry 15.4 H, Plt Count 222, MPV10.7, Neut % (Auto) Not Reportable, Absolute Neuts (auto) 7.0, Absolute Lymphs (auto) 0.42 L, Total Counted 100, Neutrophils % (Manual) 83 H, Lymphocytes % (Manual) 5 L, Monocytes % (Manual) 8, Eosinophils % (Manual) 1, Metamyelocytes %1, Myelocytes % 2 H, Diff Path Review May foll, Platelet Estimate ADEQUATE, Microcytosis 1+, Ovalocytes2+, Schistocytes RARE, Sodium 136, Potassium 3.9, Chloride 107, Carbon Dioxide 17.2 L, Anion Gap 12, BUN 14, Creatinine 1.18, Estim Creat Clear Calc 59.31, Est GFR (MDRD) Non-Af 64, BUN/Creatinine Ratio 11.6, Glucose 103 H, Calcium 8.4 Micro: Microbiology 08/14/24 22:06 Urine Catheter - Worthy Urine Culture - Preliminary Providencia rettgeri Myroides spp GPC Poss Enterococcus sp 08/14/24 21:40 Blood Culture (Wb) - Arm Left Blood Culture - Preliminary Providencia rettgeri 08/14/24 22:06 Blood Culture (Wb) - Anticubital Left Blood Culture - Preliminary Gram negative aziza 08/14/24 21:40 Mucosa - Nose SARS-CoV-2, Influenza & RSV (PCR) - Final Physical Exam Narrative General: Alert, no apparent distress HEENT: Atraumatic, normocephalic Eyes: Anicteric, normal conjunctiva, extraocular movements grossly intact Neck: Supple Respiratory: Normal respiratory effort, no significant rhonchi or wheezes Cardiovascular: Regular rate GI: Soft, nontender, hyperactive bowel sounds Extremities: No edema Musculoskeletal: Moving all extremities Neuro: No overt focal neurological deficits Skin: No rashes appreciated Psych: Cooperative Assessment & Plan Assessment/Plan (1) Sepsis: QUALIFIERS: Acute renal failure type: unspecified Sepsis acute organ dysfunction status: with acuteorgan dysfunction Sepsis type: sepsis due to unspecified organism Severe sepsis acute organ dysfunction type: acute renalfailure Severe sepsis shock status: with septic shock Qualified Code(s): A41.9- Sepsis, unspecified organism; R65.21 - Severe sepsis with septic shock; N17.9 - Acute kidney failure, unspecified (2) UTI (urinary tract infection) due to urinary indwelling catheter: QUALIFIERS: Encounter type: initial encounter Indwelling urinary catheter type: cystostomy catheterQualified Code(s): T83.510A - Infection and inflammatory reaction due to cystostomy catheter, initial encounter; N39.0 - Urinary tract infection, site not specified PLAN: Plan # Septic shock gram-negative UTI in the setting of chronic suprapubic catheter- blood culture growing Providencia rettgeri -Patient febrile in the ED with temp of 102.9, tachycardic with heart rate in 140s, blood pressure in the ED down to 75/50 with a MAP of 58 with respiratory rate of 38, patient's O2 sat also decreased necessitating 2 L of nasal cannula in place, patient with bicarb of 17.4 in the ED with gap of 17,lactic acid of 4.2 and increasing creatinine up to 1.69 with baseline seemingly closer to 1.3 -UA suggestive of UTI -CT scan also suggestive of possible cystitis -Blood and urine cultures ordered -Ucx +, organism and sensitivity data pending, blood cultures 2 out of 2 also positive for gram-negative rods -Patient started on Zosyn -Patient received 3 L IV fluid and has remained hypotensive so norepinephrine ordered -Patient presently admitted in the ICU, automatic pinsetter mechanic consulted -08/16: Urine culture and sensitivity data pending, blood cultures positive, alsopending sensitivities, patient remains on Zosyn, patient off of norepinephrine and is significantly improving, changed to PCU status -08/17: Patient growing Providencia rettgeri and blood culture, ID consulted, patient seem to improve on Zosyn however sensitivities revealed this is resistant to Zosyn, will switch to Levaquin while awaiting further ID input -08/18: Blood culture with Providencia rettgeri, urine culture growing Providencia rettgeri and ?myroides, and possible enteric coccus, patient placed on Rocephin by ID, following cultures for final antibiotic plan -08/19: Patient presently vitally stable and afebrile, white count has normalized, continue antibiotics # Polymicrobial UTI -08/19: Growing Providencia rettgeri which is also been growing in the blood, also growing myroides and possible enteric coccus in urine, given myroides sensitivities Doxy was added, gram-positive cocci possible enteric coccus final culture and sensitivity still pending. Appreciate ID recommendations this week for final antibiotic plan once all sensitivities available # Creatinine elevation from baseline in setting of mild to moderate right hydroureteronephrosis -Patient's creatinine 1.69, baseline seems closer to 1.3 -CT scan in the ED showed mild/moderate right hydroureteronephrosis without obstructing calculus, underlying obstructive bladder lesion not excluded and it was recommended further assessment with nonemergent CT urogram and/or direct visualization -Patient has previously seen Dr. Gilliland, Dr. Gilliland consulted but it is suspected this is chronic and there is no current plan for intervention, patientto be monitored -08/16: Creatinine has begun to downtrend, today is 1.8 -08/17: Further improving now that infection/septic shock improving, creatinine 1.46 today. Patient will need to follow-up with urology on outpatient basis forhis chronic Worthy but no acute intervention planned -08/18: Continued improvement with treatment of infection -08/19: Creatinine 1.18 today, significantly improved, no further acute management necessary #Hypertension -Patient with septic shock, hold amlodipine, lisinopril, terazosin -08/16: Continue to hold medications, patient off Levophed, as patient improves can add back medications as tolerated -08/17: Patient still on midodrine, will DC given patient's stable blood pressure, add back blood pressure medications as tolerated but will continue hold at this time, most recent blood pressure 116/74 -08/18: Patient's blood pressure stable with midodrine discontinued but a.m. blood pressure 107/67, hold off on adding back home antihypertensives at this time -08/19: AM blood pressure 119/69, vitally stable but not yet ready to add back oral antihypertensives # Diarrhea -08/18: Could be due to antibiotics or vitamin C or zinc but will check C. difficile and stool panelto verify no infection, if nothing identified can givepatient an antidiarrheal agent -08/19: Vitamin C stopped as was zinc, C. difficile and stool studies negative soloperamide as needed added Chronic medical problems: # History of prostate cancer -Status post prostate removal and radiation therapy through [facility] with subsequent bladder neck contracture and ultimately suprapubic catheter -PSA undetectable #DVT ppx: SCDs Juany Souza MD Time spent in the patient's overall evaluation,decision-making process, review of diagnostic data, adjustment of management, discussion with other providers, nursing nursing and ancillary staff involved in patient's care documentation, 36minutes Charges/Coding Visit Charges Inpatient E&M: 69976 Subs Hosp L2 08/19/24 1531 Cosigner Signature (if applicable): CC: ~ Signed [facility]03-15-2025 Progress note Author Juany Souza [facility] Note Date/Time August 18, 2024 12: 22pm [facility] Medical Records Department [address] [place] [address] Progress Note - Hospitalist 08/18/24 0722 MR#: [id number] Acct: [id number] Name: BARBARA MILAN MONI Rep #:[id number] : 1945 78 From: Juany Souza MD PCP: Dr. 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) Bladder disorder, unspecified (08/14/24) Urinary tract infection, site not specified (08/14/24) Unspecified abdominal pain (08/14/24) Hematuria, unspecified (08/14/24) Severe sepsis with septic shock (08/14/24) Bacteremia (08/14/24) Infection and inflammatory reaction due to cystostomy catheter, initial encounter (08/14/24) Personal history of malignant neoplasm of prostate (08/14/24) 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) Subjective Subjective Patient overall feeling little bit better but did have some GI upset with a little bit of nausea and diarrhea, not as nauseous today but did have a loose stool earlier Objective Data Objective Data Vital Signs: Vital Signs Temp Pulse Resp BP Pulse Ox O2 Del Method O2 Flow Rate 98 F 67 17 107/67 98 Room Air 1 08/18/24 06:07 08/18/24 06:07 08/18/24 06:07 08/18/24 06:07 08/18/24 06:07 08/18/24 06:07 08/15/24 14:00 Oxygen Flow Rate (L/min) 1 Oxygen Delivery Method Room Air Weight: 90.7 kg Body Mass Index (BMI) 29.6 Intake & Output: Intake and Output for Last 24 Hours 08/16/24 08/17/24 08/18/24 23:59 23:59 23:59 Intake Total 429.90 / 429.90 646.25 / 646.25 350 / 350 Output Total 2175 / 2175 1050 / 1050 800 / 800 Balance -1745.10 / -1745.10 -403.75 / -403.75 -450 / -450 Lab / Micro Data 08/18/24 04:18 08/18/24 04:18 Labs: Laboratory Results - last 24 hr 08/18/24 04:18: WBC 9.5, RBC 3.35 L, Hgb 9.5 L, Hct 27.9 L, MCV 83.3, MCH 28.4, MCHC 34.1, RDW Std Deviation 47.0 H, RDW Coeff of Jerry 15.4 H, Plt Count 207, MPV10.7, Immature Gran % (Auto) 1.100 H, Neut % (Auto) 79.9 H, Lymph % (Auto) 8.2 L, Stanley % (Auto) 7.1, Eos % (Auto) 3.4, Baso % (Auto) 0.3, Absolute Neuts (auto) 7.6, Absolute Lymphs (auto) 0.78 L, Nucleated RBC % 0 Micro: Microbiology 08/14/24 22:06 Urine Catheter - Worthy Urine Culture - Preliminary Gram negative aziza Gram negative aziza#2 GPC Poss Enterococcus sp 08/14/24 21:40 Blood Culture (Wb) - Arm Left Blood Culture - Preliminary Providencia rettgeri 08/14/24 22:06 Blood Culture (Wb) - Anticubital Left Blood Culture - Preliminary Gram negative aziza 08/14/24 21:40 Mucosa - Nose SARS-CoV-2, Influenza & RSV (PCR) - Final Physical Exam Narrative General: Alert, no apparent distress HEENT: Atraumatic, normocephalic Eyes: Anicteric, normal conjunctiva, extraocular movements grossly intact Neck: Supple Respiratory: Normal respiratory effort, no significant rhonchi or wheezes Cardiovascular: Regular rate GI: Soft, nontender, hyperactive bowel sounds Extremities: No edema Musculoskeletal: Moving all extremities Neuro: No overt focal neurological deficits Skin: No rashes appreciated Psych: Cooperative Assessment & Plan Assessment/Plan (1) Sepsis: QUALIFIERS: Acute renal failure type: unspecified Sepsis acute organ dysfunction status: with acute organ dysfunction Sepsis type: sepsis due to unspecified organism Severe sepsis acute organ dysfunction type: acute renalfailure Severe sepsis shock status: with septic shock Qualified Code(s): A41.9- Sepsis, unspecified organism; R65.21 - Severe sepsis with septic shock; N17.9 - Acute kidney failure, unspecified (2) UTI (urinary tract infection) due to urinary indwelling catheter: QUALIFIERS: Encounter type: initial encounter Indwelling urinary catheter type: cystostomy catheter Qualified Code(s): T83.510A - Infection and inflammatory reaction due to cystostomy catheter, initial encounter; N39.0 - Urinary tract infection, site not specified PLAN: Plan # Septic shock gram-negative UTI in the setting of chronic suprapubic catheter- blood culture growing Providencia rettgeri -Patient febrile in the ED with temp of 102.9, tachycardic with heart rate in 140s, blood pressure in the ED down to 75/50 with a MAP of 58 with respiratory rate of 38, patient's O2 sat also decreased necessitating 2 L of nasal cannula in place, patient with bicarb of 17.4 in the ED with gap of 17, lactic acid of 4.2 and increasing creatinine up to 1.69 with baseline seemingly closer to 1.3 -UA suggestive of UTI -CT scan also suggestive of possible cystitis -Blood and urine cultures ordered -Ucx +, organism and sensitivity data pending, blood cultures 2 out of 2 also positive for gram-negative rods -Patient started on Zosyn -Patient received 3 L IV fluid and has remained hypotensive so norepinephrine ordered -Patient presently admitted in the ICU, automatic pinsetter mechanic consulted -08/16: Urine culture and sensitivity data pending, blood cultures positive, alsopending sensitivities, patient remains on Zosyn, patient off of norepinephrine and is significantly improving, changed to PCU status -08/17: Patient growing Providencia rettgeri and blood culture, ID consulted, patient seem to improve on Zosyn however sensitivities revealed this is resistant to Zosyn, will switch to Levaquin while awaiting further ID input -08/18: Blood culture with Providencia rettgeri, urine culture growing Providencia rettgeri and ?myroides, and possible enteric coccus, patient placed on Rocephin by ID, following cultures for final antibiotic plan # Creatinine elevation from baseline in setting of mild to moderate right hydroureteronephrosis -Patient's creatinine 1.69, baseline seems closer to 1.3 -CT scan in the ED showed mild/moderate right hydroureteronephrosis without obstructing calculus, underlying obstructive bladder lesion not excluded and it was recommended further assessment with nonemergent CT urogram and/or direct visualization -Patient has previously seen Dr. Gilliland, Dr. Gilliland consulted but it is suspected this is chronic and there is no current plan for intervention, patientto be monitored -08/16: Creatinine has begun to downtrend, today is 1.8 -08/17: Further improving now that infection/septic shock improving, creatinine 1.46 today. Patient will need to follow-up with urology on outpatient basis forhis chronic Worthy but no acute intervention planned -08/18: Continued improvement with treatment of infection #Hypertension -Patient with septic shock, hold amlodipine, lisinopril, terazosin -08/16: Continue to hold medications, patient off Levophed, as patient improves can add back medications as tolerated -08/17: Patient still on midodrine, will DC given patient's stable blood pressure, add back blood pressure medications as tolerated but will continue hold at this time, most recent blood pressure 116/74 -08/18: Patient's blood pressure stable with midodrine discontinued but a.m. blood pressure 107/67, hold off on adding back home antihypertensives at this time # Diarrhea -08/18: Could be due to antibiotics or vitamin C or zinc but will check C. difficile and stool panel to verify no infection, if nothing identified can givepatient an antidiarrheal agent Chronic medical problems: # History of prostate cancer -Status post prostate removal and radiation therapy through [facility] with subsequent bladder neck contracture and ultimately suprapubic catheter -PSA undetectable #DVT ppx: SCDs Juany Souza MD Time spent in the patient's overall evaluation,decision-making process, review of diagnostic data, adjustment of management, discussion with other providers, nursing nursing and ancillary staff involved in patient's care documentation, 36minutes Charges/Coding Visit Charges Inpatient E&M: 39806 Subs Hosp L2 08/18/24 1222 <Electronically signed by Juany Sozua MD> Cosigner Signature (if applicable): CC: ~ Signed [facility] Work Phone: [phone] Progress note [facility] Medical Records Department [address] [place] [address] Progress Note - Hospitalist 08/18/24 0722 MR#: [id number] Acct: [id number] Name: MARIANABARBARA SANTAMARIA Rep #:[id number] : 1945 78 From: Juany Souza MD PCP: Dr. 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) Bladder disorder, unspecified (08/14/24) Urinary tract infection, site not specified (08/14/24) Unspecified abdominal pain (08/14/24) Hematuria, unspecified (08/14/24) Severe sepsis with septic shock (08/14/24) Bacteremia (08/14/24) Infection and inflammatory reaction due to cystostomy catheter, initial encounter (08/14/24) Personal history of malignant neoplasm of prostate (08/14/24) 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) Subjective Subjective Patient overall feeling little bit better but did have some GI upset with a little bit of nausea and diarrhea, not as nauseous today but did have a loose stool earlier Objective Data Objective Data Vital Signs: Vital Signs Temp Pulse Resp BP Pulse Ox O2 Del Method O2 Flow Rate 98 F 67 17 107/67 98 Room Air 1 08/18/24 06:07 08/18/24 06:07 08/18/24 06:07 08/18/24 06:07 08/18/24 06:07 08/18/24 06:07 08/15/24 14:00 Oxygen Flow Rate (L/min) 1 Oxygen Delivery Method Room Air Weight: 90.7 kg Body Mass Index (BMI) 29.6 Intake & Output: Intake and Output for Last 24 Hours 08/16/24 08/17/24 08/18/24 23:59 23:59 23:59 Intake Total 429.90 / 429.90 646.25 / 646.25 350 / 350 Output Total 2175 / 2175 1050 / 1050 800 / 800 Balance -1745.10 / -1745.10 -403.75 / -403.75 -450 / -450 Lab / Micro Data 08/18/24 04:18 08/18/24 04:18 Labs: Laboratory Results - last 24 hr 08/18/24 04:18: WBC 9.5, RBC 3.35 L, Hgb 9.5 L, Hct 27.9 L, MCV 83.3, MCH 28.4, MCHC 34.1, RDW Std Deviation 47.0 H, RDW Coeff of Jerry 15.4 H, Plt Count 207, MPV10.7, Immature Gran % (Auto) 1.100 H, Neut % (Auto) 79.9 H, Lymph % (Auto) 8.2 L, Stanley % (Auto) 7.1, Eos % (Auto) 3.4, Baso % (Auto) 0.3, Absolute Neuts (auto) 7.6, Absolute Lymphs (auto) 0.78 L, Nucleated RBC % 0 Micro: Microbiology 08/14/24 22:06 Urine Catheter - Worthy Urine Culture - Preliminary Gram negative aziza Gram negative aziza#2 GPC Poss Enterococcus sp 08/14/24 21:40 Blood Culture (Wb) - Arm Left Blood Culture - Preliminary Providencia rettgeri 08/14/24 22:06 Blood Culture (Wb) - Anticubital Left Blood Culture - Preliminary Gram negative aziza 08/14/24 21:40 Mucosa - Nose SARS-CoV-2, Influenza & RSV (PCR) - Final Physical Exam Narrative General: Alert, no apparent distress HEENT: Atraumatic, normocephalic Eyes: Anicteric, normal conjunctiva, extraocular movements grossly intact Neck: Supple Respiratory: Normal respiratory effort, no significant rhonchi or wheezes Cardiovascular: Regular rate GI: Soft, nontender, hyperactive bowel sounds Extremities: No edema Musculoskeletal: Moving all extremities Neuro: No overt focal neurological deficits Skin: No rashes appreciated Psych: Cooperative Assessment & Plan Assessment/Plan (1) Sepsis: QUALIFIERS: Acute renal failure type: unspecified Sepsis acute organ dysfunction status: with acuteorgan dysfunction Sepsis type: sepsis due to unspecified organism Severe sepsis acute organ dysfunction type: acute renalfailure Severe sepsis shock status: with septic shock Qualified Code(s): A41.9- Sepsis, unspecified organism; R65.21 - Severe sepsis with septic shock; N17.9 - Acute kidney failure, unspecified (2) UTI (urinary tract infection) due to urinary indwelling catheter: QUALIFIERS: Encounter type: initial encounter Indwelling urinary catheter type: cystostomy catheterQualified Code(s): T83.510A - Infection and inflammatory reaction due to cystostomy catheter, initial encounter; N39.0 - Urinary tract infection, site not specified PLAN: Plan # Septic shock gram-negative UTI in the setting of chronic suprapubic catheter- blood culture growing Providencia rettgeri -Patient febrile in the ED with temp of 102.9, tachycardic with heart rate in 140s, blood pressure in the ED down to 75/50 with a MAP of 58 with respiratory rate of 38, patient's O2 sat also decreased necessitating 2 L of nasal cannula in place, patient with bicarb of 17.4 in the ED with gap of 17,lactic acid of 4.2 and increasing creatinine up to 1.69 with baseline seemingly closer to 1.3 -UA suggestive of UTI -CT scan also suggestive of possible cystitis -Blood and urine cultures ordered -Ucx +, organism and sensitivity data pending, blood cultures 2 out of 2 also positive for gram-negative rods -Patient started on Zosyn -Patient received 3 L IV fluid and has remained hypotensive so norepinephrine ordered -Patient presently admitted in the ICU, automatic pinsetter mechanic consulted -08/16: Urine culture and sensitivity data pending, blood cultures positive, alsopending sensitivities, patient remains on Zosyn, patient off of norepinephrine and is significantly improving, changed to PCU status -08/17: Patient growing Providencia rettgeri and blood culture, ID consulted, patient seem to improve on Zosyn however sensitivities revealed this is resistant to Zosyn, will switch to Levaquin while awaiting further ID input -08/18: Blood culture with Providencia rettgeri, urine culture growing Providencia rettgeri and ?myroides, and possible enteric coccus, patient placed on Rocephin by ID, following cultures for final antibiotic plan # Creatinine elevation from baseline in setting of mild to moderate right hydroureteronephrosis -Patient's creatinine 1.69, baseline seems closer to 1.3 -CT scan in the ED showed mild/moderate right hydroureteronephrosis without obstructing calculus, underlying obstructive bladder lesion not excluded and it was recommended further assessment with nonemergent CT urogram and/or direct visualization -Patient has previously seen Dr. Gilliland, Dr. Gilliland consulted but it is suspected this is chronic and there is no current plan for intervention, patientto be monitored -08/16: Creatinine has begun to downtrend, today is 1.8 -08/17: Further improving now that infection/septic shock improving, creatinine 1.46 today. Patient will need to follow-up with urology on outpatient basis forhis chronic Worthy but no acute intervention planned -08/18: Continued improvement with treatment of infection #Hypertension -Patient with septic shock, hold amlodipine, lisinopril, terazosin -08/16: Continue to hold medications, patient off Levophed, as patient improves can add back medications as tolerated -08/17: Patient still on midodrine, will DC given patient's stable blood pressure, add back blood pressure medications as tolerated but will continue hold at this time, most recent blood pressure 116/74 -08/18: Patient's blood pressure stable with midodrine discontinued but a.m. blood pressure 107/67, hold off on adding back home antihypertensives at this time # Diarrhea -08/18: Could be due to antibiotics or vitamin C or zinc but will check C. difficile and stool panelto verify no infection, if nothing identified can givepatient an antidiarrheal agent Chronic medical problems: # History of prostate cancer -Status post prostate removal and radiation therapy through [facility] with subsequent bladder neck contracture and ultimately suprapubic catheter -PSA undetectable #DVT ppx: SCDs Juany Souza MD Time spent in the patient's overall evaluation,decision-making process, review of diagnostic data, adjustment of management, discussion with other providers, nursing nursing and ancillary staff involved in patient's care documentation, 36minutes Charges/Coding Visit Charges Inpatient E&M: 24646 Subs Hosp L2 08/18/24 1222 Cosigner Signature (if applicable): CC: ~ Signed [facility]03-15-2025 Discharge summary Author Kishore Nicolas [facility] Note Date/Time August 17, 2024 11: 56pm [facility] Medical Records Department [address] [place] [address] Emergency Department Summary 08/14/24 MR#: [id number] Acct: [id number] Name: MARIANABARBARA MONI Rep #:[id number] : 1945 78 From: Kishore Nicolas MD PCP: Dr. Kelvin Han MD Status :ADM IN Location: ICU ICU03-1 HPI <Eve Burciaga RN - Last Filed: 08/14/24 22:55> History of Present Illness Chief Complaint: Flank Pain Detail of Chief Complaint: Right flank pain Informant: patient Onset/Context/Timing Onset: Hours (4.5 hours) Context: Sudden Onset Timing: Intermittent Quality: Stabbing, sharp Current Severity: 10/10 Maximum Severity: 10/10 Worsened by: Nothing Relieved by: Nothing Narrative Narrative: Patient is a 78-year-old male with past medical history significant for prostatecancer in 2011 with prostatectomy, return of prostate cancer in 2016 for which he received radiation, chronic suprapubic catheter, hypertension, and intermittent hematuria who presented to the ED with his son for sudden onset right flank pain at approximately 4 PM today. Patient does report he gets intermittent bladder spasms and will have hematuria following the spasms. Theseresolved at home with increased fluids. He did take Tylenol at 2 PM today to help with bladder spasms. He also changed his catheter tubing and bag today. Patient also reports chills. Does not know if he had a fever. Patient denies lightheadedness and dizziness. Denies chest pain and shortness of breath. Had an episode of vomiting upon arrival to ED. Denies nausea at this time. Prior similar symptoms: No Recent Illness/Hospitalization: No PFSH <Eve Burciaga RN - Last Filed: 08/14/24 22:55> PFSH Medical History Hearing loss, left Hearing loss, right Anxiety Depression Chronic indwelling Worthy catheter TIA (transient ischemic attack) Chronic radiation cystitis Worthy catheter in place Wears glasses Cancer Arthritis Non-smoker History of pain when walking History of edema Hypertension Prostate cancer Blood in urine Home Medications ?Medication ?Instructions ?Recorded ?Last Taken ?Type amlodipine 10 mg tablet 10 mg PO DAILY BLOOD PRESSUR E 12/08/18 01/13/24 History lisinopril 40 mg tablet 40 mg PO BID BLOOD PRESSURE 12/08/18 01/13/24 History terazosin 5 mg capsule 5 mg PO QPM BLOOD PRESSURE 0 12/08/18 01/13/24 History multivit,Ca,min-iron 8 mg-folic 1 tab PO DAILY SUPPLEM ENT 11/04/23 01/13/24 History acid 200 mcg-lycopene 600 mcg tablet (A Thru [employer]) Allergy/AdvReac Type Severity Reaction Status Date / Time losartan Allergy Mild Rash Verified 08/14/24 19:22 Sulfa (Sulfonamide Allergy Hives Verified 08/14/24 19:22 Antibiotics) atenolol AdvReac Mild WEAKNESS Verified 08/14/24 19:22 hydrochlorothiazide AdvReac Mild UNKNOWN Verified 08/14/24 19:22 indomethacin (From Indocin) AdvReac Mild GI upset Verified 08/14/24 19:22 Surgical History History of left knee replacement Hx of radical prostatectomy Hx of cystoscopy Hx of colonoscopy Social History household members: spouse housing: house Smoking Status: Never smoker ROS <Eve Burciaga RN - Last Filed: 08/14/24 22:55> ROS ED ROS Narrative Patient is awake and alert. Denies dizziness and lightheadedness. Denies fatigue. Denies weight loss. Constitutional Constitutional ED: Reports chills; Denies fever(s), sweats or weight loss Eyes Eyes: Denies blurry vision or change in vision ENT ENT ED: Denies ear pain, rhinorrhea or sore throat Cardiovascular Cardiovascular: Denies chest pain, palpitations or racing heartbeat Respiratory/Chest Respiratory/Chest: Denies cough or dyspnea Gastrointestinal Gastrointestinal: Reports nausea; Denies diarrhea or vomiting Genitourinary Genitourinary ED: Reports hematuria; Denies dysuria or urinary frequency Musculoskeletal Musculoskeletal: Reports other Details: Right flank pain ; Denies arthralgias or myalgias Integumentary Denies rash Neurologic Neurologic: Denies headache(s), paresthesias or weakness Psychiatric Psychiatric: Denies anxiety or depression Endocrine Endocrinology: Denies polydipsia, polyphagia or polyuria EXAM <Eve Burciaga RN - Last Filed: 08/14/24 22:55> Physical Exam Narrative Exam Narrative: Patient is awake, alert, ill-appearing, uncomfortable, cooperative, good historian. Son is at bedside. Const Vital Signs: 08/14/24 19:22 08/14/24 21:21 08/14/24 21:37 Temperature 97.8 F 102.9 F H 102.9 F H Temperature Source Oral Oral Oral Pulse Rate 124 H 140 H 146 H Respiratory Rate 26 H 24 H 38 H Blood Pressure 101/61 95/50 L 75/50 L Blood Pressure Mean 74 65 58 Pulse Ox 98 97 97 Oxygen Delivery Method Room Air Room Air Room Air Oxygen Flow Rate (L/min) 08/14/24 21:37 08/14/24 21:44 08/14/24 21:44 Temperature Temperature Source Pulse Rate 140 H Respiratory Rate 24 H Blood Pressure 89/73 L 89/73 L Blood Pressure Mean 79 79 Pulse Ox Oxygen Delivery Method Oxygen Flow Rate (L/min) 08/14/24 21:44 08/14/24 21:45 08/14/24 21:45 Temperature Temperature Source Pulse Rate 143 H Respiratory Rate 22 H Blood Pressure 89/73 L Blood Pressure Mean 79 Pulse Ox 91 Oxygen Delivery Method Nasal Cannula Oxygen Flow Rate (L/min) 2 08/14/24 22:00 08/14/24 22:15 08/14/24 22:30 Temperature Temperature Source Pulse Rate 137 H 128 H 117 H Respiratory Rate 33 H 21 H 28 H Blood Pressure 119/64 Blood Pressure Mean 81 Pulse Ox 96 Oxygen Delivery Method Oxygen Flow Rate (L/min) 08/14/24 22:45 08/14/24 23:00 Temperature Temperature Source Pulse Rate 113 H 122 H Respiratory Rate 27 H 28 H Blood Pressure 96/55 L Blood Pressure Mean 68 Pulse Ox 94 95 Oxygen Delivery Method Nasal Cannula Oxygen Flow Rate (L/min) 2 Positive well nourished and well developed General Appearance ED: well developed HEENT Reports dry mucous membranes Mouth ED: Yes dry mucous membranes Mouth: dry mucous membranes Eyes PERRL and EOMs intact bilaterally Neck no lymphadenopathy and supple Chest Wall inspection of chest normal and palpation of chest normal Resp normal respiratory effort and clear to auscultation bilaterally Auscultation: Negative for rales, rhonchi, wheezes or diminished lung sounds Cardio regular rate, regular rhythm, S1 normal heart sound, S2 normal heart sound and no murmurs GI normal to inspection, nondistended, normoactive bowel sounds Narrative: Suprapubic catheter insertion site without erythema or drainage. Worthy drainingcloudy pink-tinged urine with sediment. Back/Spine General Back: CVA tenderness right Extremity normal to inspection General Extremety ED: Negative for edema or tenderness General Extremity: Negative for edema Neuro No oriented x3, No CN's II-XII intact bilaterally and No no sensory deficits noted Motor Exam: strength 5/5 throughout Psych mental status grossly normal Skin no rashes or lesions noted, no wounds and skin turgor normal <Dr. Kishore Nicolas MD - Last Filed: 08/17/24 23:56> Physical Exam Const Vital Signs: 08/14/24 19:22 08/14/24 21:21 08/14/24 21:37 Temperature 97.8 F 102.9 F H 102.9 F H Temperature Source Oral Oral Oral Pulse Rate 124 H 140 H 146 H Respiratory Rate 26 H 24 H 38 H Blood Pressure 101/61 95/50 L 75/50 L Blood Pressure Mean 74 65 58 Pulse Ox 98 97 97 Oxygen Delivery Method Room Air Room Air Room Air Oxygen Flow Rate (L/min) 08/14/24 21:37 08/14/24 21:44 08/14/24 21:44 Temperature Temperature Source Pulse Rate 140 H Respiratory Rate 24 H Blood Pressure 89/73 L 89/73 L Blood Pressure Mean 79 79 Pulse Ox Oxygen Delivery Method Oxygen Flow Rate (L/min) 08/14/24 21:44 08/14/24 21:45 08/14/24 21:45 Temperature Temperature Source Pulse Rate 143 H Respiratory Rate 22 H Blood Pressure 89/73 L Blood Pressure Mean 79 Pulse Ox 91 Oxygen Delivery Method Nasal Cannula Oxygen Flow Rate (L/min) 2 08/14/24 22:00 08/14/24 22:15 08/14/24 22:30 Temperature Temperature Source Pulse Rate 137 H 128 H 117 H Respiratory Rate 33 H 21 H 28 H Blood Pressure 119/64 Blood Pressure Mean 81 Pulse Ox 96 Oxygen Delivery Method Oxygen Flow Rate (L/min) 08/14/24 22:45 08/14/24 23:00 Temperature Temperature Source Pulse Rate 113 H 122 H Respiratory Rate 27 H 28 H Blood Pressure 96/55 L Blood Pressure Mean 68 Pulse Ox 94 95 Oxygen Delivery Method Nasal Cannula Oxygen Flow Rate (L/min) 2 MDM <Eve Burciaga RN - Last Filed: 08/14/24 22:55> MDM MDM Narrative Medical decision making narrative: IV initiated. CBC will be obtained to evaluate for leukocytosis. BMP will be obtained to evaluate for electrolyte imbalance. CT abdomen will be obtained to evaluate for potential kidney stone. History & Record Review Discussion w/independent historian: Family Lab Data Lab results narrative: CBC shows a white white count of 1.9. H&H of 12 and 36. Platelets 229. Electrolytes show a gap of 17. BUN and creatinine of 31 and 1.69 which is consistent with his chronic renal insufficiency. Glucose 139. Liver enzymes normal. Urinary tubing and drainage bag were changed prior to urinalysis. Labs: Laboratory Results - last 24 hr 08/14/24 08/14/24 08/14/24 19:40 21:30 21:40 WBC 1.9 L RBC 4.23 L Hgb 12.0 L Hct 36.1 L MCV 85.3 MCH 28.4 MCHC 33.2 RDW Std Deviation 43.3 RDW Coeff of Jerry 14.0 Plt Count 229 MPV 9.6 Immature Gran % (Auto) 1.000 H Neut % (Auto) 76.8 H Lymph % (Auto) 15.5 L Stanley % (Auto) 0.5 Eos % (Auto) 5.7 H Baso % (Auto) 0.5 Absolute Neuts (auto) 1.5 L Absolute Lymphs (auto) 0.30 L Nucleated RBC % 0 Differential Comment SEE COMMENT Platelet Estimate ADEQUATE RBC Morphology NORM C+C Anisocytosis RARE PT 15.5 H INR 1.2 APTT 26.3 Sodium 139 Potassium 4.5 Chloride 105 Carbon Dioxide 17.4 L Anion Gap 17 H BUN 31 H Creatinine 1.69 H Est GFR (MDRD) Non-Af 42 L BUN/Creatinine Ratio 18.2 Glucose 139 H Lactic Acid 4.2 H* Calcium 9.2 Total Bilirubin 0.25 AST 24 ALT 16 Alkaline Phosphatase 85 Total Protein 7.2 Albumin 3.7 Globulin 3.4 Albumin/Globulin Ratio 1.1 Urine Color Urine Clarity Urine pH Ur Specific [place] Urine Protein Urine Glucose (UA) Urine Ketones Urine Occult Blood Urine Nitrite Urine Bilirubin Urine Urobilinogen Ur Leukocyte Esterase Urine RBC Urine WBC Ur Squamous Epith Cells Amorphous Sediment Urine Bacteria Urine Mucus 08/14/24 22:06 WBC RBC Hgb Hct MCV MCH MCHC RDW Std Deviation RDW Coeff of Jerry Plt Count MPV Immature Gran % (Auto) Neut % (Auto) Lymph % (Auto) Stanley % (Auto) Eos % (Auto) Baso % (Auto) Absolute Neuts (auto) Absolute Lymphs (auto) Nucleated RBC % Differential Comment Platelet Estimate RBC Morphology Anisocytosis PT INR APTT Sodium Potassium Chloride Carbon Dioxide Anion Gap BUN Creatinine Est GFR (MDRD) Non-Af BUN/Creatinine Ratio Glucose Lactic Acid Calcium Total Bilirubin AST ALT Alkaline Phosphatase Total Protein Albumin Globulin Albumin/Globulin Ratio Urine Color Red Urine Clarity Cloudy Urine pH 8.0 Ur Specific [place] 1.010 Urine Protein 100 H Urine Glucose (UA) Normal Urine Ketones 5 H Urine Occult Blood 250 H Urine Nitrite Negative Urine Bilirubin Negative Urine Urobilinogen Normal Ur Leukocyte Esterase 500 H Urine RBC > 100 SEEN Urine WBC 50-100 SEEN Ur Squamous Epith Cells 5-10 SEEN Amorphous Sediment 2+ PHOS Urine Bacteria RARE Urine Mucus 0 SEEN Radiography Chest X-Ray - ED: 2 View and Read by Radiologist Diagnostic Testing: Clinical Impression(s) from Imaging Studies Abdomen/Pelvis CT 08/14/24 21:00 IMPRESSION: 1. Mild/moderate right hydroureteronephrosis without an obstructing calculus. Underlying obstructive bladder lesion not excluded. Recommend further assessment with nonemergent CT urogram and/or direct visualization. 2. Underdistended bladder with diffuse wall thickening and mild perivesicular fat stranding. Correlate for possible cystitis. Suprapubic catheter in place. 3. Additional chronic findings as above. One or more dose reduction techniques were used (e.g., Automated exposure control, adjustment of the mA and/or kV according to patient size, use of iterative reconstruction technique). Reading Location: [facility] Chest X-Ray 08/14/24 21:29 IMPRESSION: No focal airspace abnormality. Reading Location: [facility] EKG Initial EKG: Interpretation: Sinus Tachycardia Differential Diagnosis Differential Diagnosis: Renal calculus Differential Diagnosis: UTI/urosepsis Management Discussion w/another healthcare provider: Other (Dr. Nicolas, ED provider) Treatment and Re-Evaluation :: Patient developed fever of 102.9 while in the ED with heart rate 146 and hypotension. He was started on the sepsis pathway. He responded well to Tylenol and IV fluids with repeat temp of 97.8, heart rate 124, and BP 101/61. Patient received a total of 3 mL normal saline, Tylenol 1 g, morphine 4 mg, and Zofran 4 mg. Upon reevaluation, patient appears much improved. CT abdomen and pelvis shows a mild/moderate right hydroureternephrosis without an obstructing calculus with and underlying obstructive bladder lesion that cannot be excluded. Patient also received ceftriaxone 2 g. He will be admitted for urosepsis. <Dr. Kishore Nicolas MD - Last Filed: 08/17/24 23:56> [facility] Narrative Medical decision making narrative: IV initiated. CBC will be obtained to evaluate for leukocytosis. BMP will be obtained to evaluate for electrolyte imbalance. CT abdomen will be obtained to evaluate for potential kidney stone. I have personally performed a face to face assessment of the patient and have reviewed the ADONIS Note. I performed a substantive portion of the visit including all aspects of the following. My hurd findings include: History is 78-year-old male history of prostate cancer prior prostatectomy. Also has a chronic indwelling suprapubic catheter. Complaining of right flank pain began several hours ago. Intermittent comes and goes in waves. No prior kidney stone. Denies any recent illness. No fever. No vomiting or diarrhea. No dysuria. History of bladder spasms. Exam is [78-year-old male vital signs are stable he is afebrile he does not look septic toxic. He clinically looks comfortable and finally has waves of pain causing right flank pain in the appears obviously uncomfortable and that was hit. H EENT exam pupils round react light. Mytrex members. Neck nontender no lymphadenopathy. No meningismus. Lungs clear to auscultation bilaterally. Heart tachycardic 110 no murmur. Chest wall ribs nontender. Abdomen soft nondistended normal bowel sounds without peritoneal signs. No obstruction. Suprapubic catheter was bag was changed. He is clear yellow urine. Moving all 4 extremities. Nontender no edema. Back nontender. Neurologically is awake alert no focal motor deficits.] Medical Decision Making [78-year-old male right flank pain. To be treated with IV morphine and Zofran. CAT scan the labs are being obtained.] Other additions or changes: [ repeat exam at 10:54 PM. Patient is improving with the IV fluids. He has had IV antibiotic Rocephin started. Blood and urine cultures have been sent. He has received 2 L of fluid he will be given a third. Hospitalist on page to admit for urosepsis. Currently his blood pressure stable with a systolic over 100. He looks much better. Currently pain-free.] History & Record Review Additional record(s) reviewed:: Prior inpatient record, Prior outpatient record,Prior ED visit and Prior labs Lab Data Attestation: I reviewed the patient's lab results. Lab results narrative: CBC shows a white white count of 1.9. H&H of 12 and 36. Platelets 229. Electrolytes show a gap of 17. BUN and creatinine of 31 and 1.69 which is consistent with his chronic renal insufficiency. Glucose 139. Liver enzymes normal. Urinary tubing and drainage bag were changed prior to urinalysis. Urinalysis is infected. Creatinine 100 red cells. 1500 white cells. 5-10 epithelial cells. This is a suprapubic collection. Rare bacteria. Culture sent. Labs: Laboratory Results - last 24 hr 08/14/24 08/14/24 08/14/24 19:40 21:30 21:40 WBC 1.9 L RBC 4.23 L Hgb 12.0 L Hct 36.1 L MCV 85.3 MCH 28.4 MCHC 33.2 RDW Std Deviation 43.3 RDW Coeff of Jerry 14.0 Plt Count 229 MPV 9.6 Immature Gran % (Auto) 1.000 H Neut % (Auto) 76.8 H Lymph % (Auto) 15.5 L Stanley % (Auto) 0.5 Eos % (Auto) 5.7 H Baso % (Auto) 0.5 Absolute Neuts (auto) 1.5 L Absolute Lymphs (auto) 0.30 L Nucleated RBC % 0 Differential Comment SEE COMMENT Platelet Estimate ADEQUATE RBC Morphology NORM C+C Anisocytosis RARE PT 15.5 H INR 1.2 APTT 26.3 Sodium 139 Potassium 4.5 Chloride 105 Carbon Dioxide 17.4 L Anion Gap 17 H BUN 31 H Creatinine 1.69 H Est GFR (MDRD) Non-Af 42 L BUN/Creatinine Ratio 18.2 Glucose 139 H Lactic Acid 4.2 H* Calcium 9.2 Total Bilirubin 0.25 AST 24 ALT 16 Alkaline Phosphatase 85 Total Protein 7.2 Albumin 3.7 Globulin 3.4 Albumin/Globulin Ratio 1.1 Urine Color Urine Clarity Urine pH Ur Specific [place] Urine Protein Urine Glucose (UA) Urine Ketones Urine Occult Blood Urine Nitrite Urine Bilirubin Urine Urobilinogen Ur Leukocyte Esterase Urine RBC Urine WBC Ur Squamous Epith Cells Amorphous Sediment Urine Bacteria Urine Mucus 08/14/24 22:06 WBC RBC Hgb Hct MCV MCH MCHC RDW Std Deviation RDW Coeff of Jerry Plt Count MPV Immature Gran % (Auto) Neut % (Auto) Lymph % (Auto) Stanley % (Auto) Eos % (Auto) Baso % (Auto) Absolute Neuts (auto) Absolute Lymphs (auto) Nucleated RBC % Differential Comment Platelet Estimate RBC Morphology Anisocytosis PT INR APTT Sodium Potassium Chloride Carbon Dioxide Anion Gap BUN Creatinine Est GFR (MDRD) Non-Af BUN/Creatinine Ratio Glucose Lactic Acid Calcium Total Bilirubin AST ALT Alkaline Phosphatase Total Protein Albumin Globulin Albumin/Globulin Ratio Urine Color Red Urine Clarity Cloudy Urine pH 8.0 Ur Specific [place] 1.010 Urine Protein 100 H Urine Glucose (UA) Normal Urine Ketones 5 H Urine Occult Blood 250 H Urine Nitrite Negative Urine Bilirubin Negative Urine Urobilinogen Normal Ur Leukocyte Esterase 500 H Urine RBC > 100 SEEN Urine WBC 50-100 SEEN Ur Squamous Epith Cells 5-10 SEEN Amorphous Sediment 2+ PHOS Urine Bacteria RARE Urine Mucus 0 SEEN Radiography Diagnostic Testing: Clinical Impression(s) from Imaging Studies Abdomen/Pelvis CT 08/14/24 21:00 IMPRESSION: 1. Mild/moderate right hydroureteronephrosis without an obstructing calculus. Underlying obstructive bladder lesion not excluded. Recommend further assessment with nonemergent CT urogram and/or direct visualization. 2. Underdistended bladder with diffuse wall thickening and mild perivesicular fat stranding. Correlate for possible cystitis. Suprapubic catheter in place. 3. Additional chronic findings as above. One or more dose reduction techniques were used (e.g., Automated exposure control, adjustment of the mA and/or kV according to patient size, use of iterative reconstruction technique). Reading Location: [facility] Chest X-Ray 08/14/24 21:29 IMPRESSION: No focal airspace abnormality. Reading Location: NO <Dr. Kishore Nicolas MD - Last Filed: 08/17/24 23:56> Critical Care Time Critical Care Time: Yes Critical care time (excluding procedures): 30-74 minutes, Including time spent:,Discussing w/Patient &/or Family/Repeat Chief, Discussing w/Consultants, ArrangingAdmission or Transfer, Performing Direct Patient Care at Bedside and - (40 minutes) Discharge Plan Dx/Rx/DC Orders Clinical Impression: Acute abdominal pain in right flank, History of prostate cancer, Sepsis, Acute hypotension, Acute UTI Disposition Disposition: Acute Care Hospital [facility] Discharge Date/Time: 08/14/24 23:50 What to do if you have Problems For any increased pain, shortness of breath, bleeding, nausea or vomiting, chestpain, or any unexpected problems, contact your Primary Care Provider. Call [facility] ([phone]) or report to the closest Emergency Room. Call 911 if necessary. 08/17/245 <Electronically signed by Kishore Nicolas MD> Cosigner Signature (if applicable): 08/14/24 2325 <Electronically signed by Reuben Kirkland DO> CC: Dr. Kelvin Han MD ~ Signed [facility] Work Phone: [phone] Discharge summary [facility] Medical Records Department [address] [place] [address] Emergency Department Summary 08/14/24 MR#: [id number] Acct: [id number] Name: BARBARA MILAN MONI Rep #:[id number] : 1945 78 From: Kishore Nicolas MD PCP: Dr. Kelvin Han MD Status :ADM IN Location: ICU ICU03-1 HPI History of Present Illness Chief Complaint: Flank Pain Detail of Chief Complaint: Right flank pain Informant: patient Onset/Context/Timing Onset: Hours (4.5 hours) Context: Sudden Onset Timing: Intermittent Quality: Stabbing, sharp Current Severity: 10/10 Maximum Severity: 10/10 Worsened by: Nothing Relieved by: Nothing Narrative Narrative: Patient is a 78-year-old male with past medical history significant for prostatecancer in 2011 withprostatectomy, return of prostate cancer in 2016 for which he received radiation, chronic suprapubic catheter, hypertension, and intermittent hematuria who presented to the ED with his son for suddenonset right flank pain at approximately 4 PM today. Patient does report he gets intermittent bladder spasms and will have hematuria following the spasms. Theseresolved at home with increased fluids. He did take Tylenol at 2 PM today to help with bladder spasms. He also changed his catheter tubing and bag today. Patient also reports chills. Does not know if he had a fever. Patient denies lightheadedness and dizziness. Denies chest pain and shortness of breath. Had an episode of vomiting upon arrival to ED. Denies nausea at this time. Prior similar symptoms: No Recent Illness/Hospitalization: No PFSH PFS Medical History Hearing loss, left Hearing loss, right Anxiety Depression Chronic indwelling Worthy catheter TIA (transient ischemic attack) Chronic radiation cystitis Worthy catheter in place Wears glasses Cancer Arthritis Non-smoker History of pain when walking History of edema Hypertension Prostate cancer Blood in urine Home Medications ?Medication ?Instructions ?Recorded ?Last Taken ?Type amlodipine 10 mg tablet 10 mg PO DAILY BLOOD PRESSUR E 12/08/18 01/13/24 History lisinopril 40 mg tablet 40 mg PO BID BLOOD PRESSURE 12/08/18 01/13/24 History terazosin 5 mg capsule 5 mg PO QPM BLOOD PRESSURE 0 12/08/18 01/13/24 History multivit,Ca,min-iron 8 mg-folic 1 tab PO DAILY SUPPLEM ENT 11/04/23 01/13/24 History acid 200 mcg-lycopene 600 mcg tablet (A Thru Z Men's Ultimate) Allergy/AdvReac Type Severity Reaction Status Date / Time losartan Allergy Mild Rash Verified 08/14/24 19:22 Sulfa (Sulfonamide Allergy Hives Verified 08/14/24 19:22 Antibiotics) atenolol AdvReac Mild WEAKNESS Verified 08/14/24 19:22 hydrochlorothiazide AdvReac Mild UNKNOWN Verified 08/14/24 19:22 indomethacin (From Indocin) AdvReac Mild GI upset Verified 08/14/24 19:22 Surgical History History of left knee replacement Hx of radical prostatectomy Hx of cystoscopy Hx of colonoscopy Social History household members: spouse housing: house Smoking Status: Never smoker ROS ROS ED ROS Narrative Patient is awake and alert. Denies dizziness and lightheadedness. Denies fatigue. Denies weight loss. Constitutional Constitutional ED: Reports chills; Denies fever(s), sweats or weight loss Eyes Eyes: Denies blurry vision or change in vision ENT ENT ED: Denies ear pain, rhinorrhea or sore throat Cardiovascular Cardiovascular: Denies chest pain, palpitations or racing heartbeat Respiratory/Chest Respiratory/Chest: Denies cough or dyspnea Gastrointestinal Gastrointestinal: Reports nausea; Denies diarrhea or vomiting Genitourinary Genitourinary ED: Reports hematuria; Denies dysuria or urinary frequency Musculoskeletal Musculoskeletal: Reports other Details: Right flank pain ; Denies arthralgias or myalgias Integumentary Denies rash Neurologic Neurologic: Denies headache(s), paresthesias or weakness Psychiatric Psychiatric: Denies anxiety or depression Endocrine Endocrinology: Denies polydipsia, polyphagia or polyuria EXAM Physical Exam Narrative Exam Narrative: Patient is awake, alert, ill-appearing, uncomfortable, cooperative, good historian. Son is at bedside. Const Vital Signs: 08/14/24 19:22 08/14/24 21:21 08/14/24 21:37 Temperature 97.8 F 102.9 F H 102.9 F H Temperature Source Oral Oral Oral Pulse Rate 124 H 140 H 146 H Respiratory Rate 26 H 24 H 38 H Blood Pressure 101/61 95/50 L 75/50 L Blood Pressure Mean 74 65 58 Pulse Ox 98 97 97 Oxygen Delivery Method Room Air Room Air Room Air Oxygen Flow Rate (L/min) 08/14/24 21:37 08/14/24 21:44 08/14/24 21:44 Temperature Temperature Source Pulse Rate 140 H Respiratory Rate 24 H Blood Pressure 89/73 L 89/73 L Blood Pressure Mean 79 79 Pulse Ox Oxygen Delivery Method Oxygen Flow Rate (L/min) 08/14/24 21:44 08/14/24 21:45 08/14/24 21:45 Temperature Temperature Source Pulse Rate 143 H Respiratory Rate 22 H Blood Pressure 89/73 L Blood Pressure Mean 79 Pulse Ox 91 Oxygen Delivery Method Nasal Cannula Oxygen Flow Rate (L/min) 2 08/14/24 22:00 08/14/24 22:15 08/14/24 22:30 Temperature Temperature Source Pulse Rate 137 H 128 H 117 H Respiratory Rate 33 H 21 H 28 H Blood Pressure 119/64 Blood Pressure Mean 81 Pulse Ox 96 Oxygen Delivery Method Oxygen Flow Rate (L/min) 08/14/24 22:45 08/14/24 23:00 Temperature Temperature Source Pulse Rate 113 H 122 H Respiratory Rate 27 H 28 H Blood Pressure 96/55 L Blood Pressure Mean 68 Pulse Ox 94 95 Oxygen Delivery Method Nasal Cannula Oxygen Flow Rate (L/min) 2 Positive well nourished and well developed General Appearance ED: well developed HEENT Reports dry mucous membranes Mouth ED: Yes dry mucous membranes Mouth: dry mucous membranes Eyes PERRL and EOMs intact bilaterally Neck no lymphadenopathy and supple Chest Wall inspection of chest normal and palpation of chest normal Resp normal respiratory effort and clear to auscultation bilaterally Auscultation: Negative for rales, rhonchi, wheezes or diminished lung sounds Cardio regular rate, regular rhythm, S1 normal heart sound, S2 normal heart sound and no murmurs GI normal to inspection, nondistended, normoactive bowel sounds Narrative: Suprapubic catheter insertion site without erythema or drainage. Worthy drainingcloudy pink-tinged urine with sediment. Back/Spine General Back: CVA tenderness right Extremity normal to inspection General Extremety ED: Negative for edema or tenderness General Extremity: Negative for edema Neuro No oriented x3, No CN's II-XII intact bilaterally and No no sensory deficits noted Motor Exam: strength 5/5 throughout Psych mental status grossly normal Skin no rashes or lesions noted, no wounds and skin turgor normal Physical Exam Const Vital Signs: 08/14/24 19:22 08/14/24 21:21 08/14/24 21:37 Temperature 97.8 F 102.9 F H 102.9 F H Temperature Source Oral Oral Oral Pulse Rate 124 H 140 H 146 H Respiratory Rate 26 H 24 H 38 H Blood Pressure 101/61 95/50 L 75/50 L Blood Pressure Mean 74 65 58 Pulse Ox 98 97 97 Oxygen Delivery Method Room Air Room Air Room Air Oxygen Flow Rate (L/min) 08/14/24 21:37 08/14/24 21:44 08/14/24 21:44 Temperature Temperature Source Pulse Rate 140 H Respiratory Rate 24 H Blood Pressure 89/73 L 89/73 L Blood Pressure Mean 79 79 Pulse Ox Oxygen Delivery Method Oxygen Flow Rate (L/min) 08/14/24 21:44 08/14/24 21:45 08/14/24 21:45 Temperature Temperature Source Pulse Rate 143 H Respiratory Rate 22 H Blood Pressure 89/73 L Blood Pressure Mean 79 Pulse Ox 91 Oxygen Delivery Method Nasal Cannula Oxygen Flow Rate (L/min) 2 08/14/24 22:00 08/14/24 22:15 08/14/24 22:30 Temperature Temperature Source Pulse Rate 137 H 128 H 117 H Respiratory Rate 33 H 21 H 28 H Blood Pressure 119/64 Blood Pressure Mean 81 Pulse Ox 96 Oxygen Delivery Method Oxygen Flow Rate (L/min) 08/14/24 22:45 08/14/24 23:00 Temperature Temperature Source Pulse Rate 113 H 122 H Respiratory Rate 27 H 28 H Blood Pressure 96/55 L Blood Pressure Mean 68 Pulse Ox 94 95 Oxygen Delivery Method Nasal Cannula Oxygen Flow Rate (L/min) 2 MDM MDM MDM Narrative Medical decision making narrative: IV initiated. CBC will be obtained to evaluate for leukocytosis. BMP will be obtained to evaluate for electrolyte imbalance. CT abdomen will be obtained to evaluate for potential kidney stone. History & Record Review Discussion w/independent historian: Family Lab Data Lab results narrative: CBC shows a white white count of 1.9. H&H of 12 and 36. Platelets 229. Electrolytes show a gap of 17. BUN and creatinine of 31 and 1.69 which is consistent with his chronic renal insufficiency. Glucose 139. Liver enzymes normal. Urinary tubing and drainage bag were changed prior to urinalysis. Labs: Laboratory Results - last 24 hr 08/14/24 08/14/24 08/14/24 19:40 21:30 21:40 WBC 1.9 L RBC 4.23 L Hgb 12.0 L Hct 36.1 L MCV 85.3 MCH 28.4 MCHC 33.2 RDW Std Deviation 43.3 RDW Coeff of Jerry 14.0 Plt Count 229 MPV 9.6 Immature Gran % (Auto) 1.000 H Neut % (Auto) 76.8 H Lymph % (Auto) 15.5 L Stanley % (Auto) 0.5 Eos % (Auto) 5.7 H Baso % (Auto) 0.5 Absolute Neuts (auto) 1.5 L Absolute Lymphs (auto) 0.30 L Nucleated RBC % 0 Differential Comment SEE COMMENT Platelet Estimate ADEQUATE RBC Morphology NORM C+C Anisocytosis RARE PT 15.5 H INR 1.2 APTT 26.3 Sodium 139 Potassium 4.5 Chloride 105 Carbon Dioxide 17.4 L Anion Gap 17 H BUN 31 H Creatinine 1.69 H Est GFR (MDRD) Non-Af 42 L BUN/Creatinine Ratio 18.2 Glucose 139 H Lactic Acid 4.2 H* Calcium 9.2 Total Bilirubin 0.25 AST 24 ALT 16 Alkaline Phosphatase 85 Total Protein 7.2 Albumin 3.7 Globulin 3.4 Albumin/Globulin Ratio 1.1 Urine Color Urine Clarity Urine pH Ur Specific [place] Urine Protein Urine Glucose (UA) Urine Ketones Urine Occult Blood Urine Nitrite Urine Bilirubin Urine Urobilinogen Ur Leukocyte Esterase Urine RBC Urine WBC Ur Squamous Epith Cells Amorphous Sediment Urine Bacteria Urine Mucus 08/14/24 22:06 WBC RBC Hgb Hct MCV MCH MCHC RDW Std Deviation RDW Coeff of Jerry Plt Count MPV Immature Gran % (Auto) Neut % (Auto) Lymph % (Auto) Stanley % (Auto) Eos % (Auto) Baso % (Auto) Absolute Neuts (auto) Absolute Lymphs (auto) Nucleated RBC % Differential Comment Platelet Estimate RBC Morphology Anisocytosis PT INR APTT Sodium Potassium Chloride Carbon Dioxide Anion Gap BUN Creatinine Est GFR (MDRD) Non-Af BUN/Creatinine Ratio Glucose Lactic Acid Calcium Total Bilirubin AST ALT Alkaline Phosphatase Total Protein Albumin Globulin Albumin/Globulin Ratio Urine Color Red Urine Clarity Cloudy Urine pH 8.0 Ur Specific [place] 1.010 Urine Protein 100 H Urine Glucose (UA) Normal Urine Ketones 5 H Urine Occult Blood 250 H Urine Nitrite Negative Urine Bilirubin Negative Urine Urobilinogen Normal Ur Leukocyte Esterase 500 H Urine RBC > 100 SEEN Urine WBC 50-100 SEEN Ur Squamous Epith Cells 5-10 SEEN Amorphous Sediment 2+ PHOS Urine Bacteria RARE Urine Mucus 0 SEEN Radiography Chest X-Ray - ED: 2 View and Read by Radiologist Diagnostic Testing: Clinical Impression(s) from Imaging Studies Abdomen/Pelvis CT 08/14/24 21:00 IMPRESSION: 1. Mild/moderate right hydroureteronephrosis without an obstructing calculus. Underlying obstructive bladder lesion not excluded. Recommend further assessment with nonemergent CT urogram and/or direct visualization. 2. Underdistended bladder with diffuse wall thickening and mild perivesicular fat stranding. Correlate for possible cystitis. Suprapubic catheter in place. 3. Additional chronic findings as above. One or more dose reduction techniques were used (e.g., Automated exposure control, adjustment of the mA and/or kV according to patient size, use of iterative reconstruction technique). Reading Location: [facility] Chest X-Ray 08/14/24 21:29 IMPRESSION: No focal airspace abnormality. Reading Location: [facility] EKG Initial EKG: Interpretation: Sinus Tachycardia Differential Diagnosis Differential Diagnosis: Renal calculus Differential Diagnosis: UTI/urosepsis Management Discussion w/another healthcare provider: Other (Dr. Nicolas, ED provider) Treatment and Re-Evaluation :: Patient developed fever of 102.9 while in the ED with heart rate 146 and hypotension. He was started on the sepsis pathway. He responded well to Tylenol and IV fluids with repeat temp of 97.8, heart rate 124, and BP 101/61. Patient received a total of 3 mL normal saline, Tylenol 1 g, morphine 4 mg,and Zofran 4 mg. Upon reevaluation, patient appears much improved. CT abdomen and pelvis shows a mild/moderate right hydroureternephrosis without an obstructing calculus with and underlying obstructive bladder lesion that cannot be excluded. Patient also received ceftriaxone 2 g. He will be admitted for urosepsis. MDM MDM Narrative Medical decision making narrative: IV initiated. CBC will be obtained to evaluate for leukocytosis. BMP will be obtained to evaluate for electrolyte imbalance. CT abdomen will be obtained to evaluate for potential kidney stone. I have personally performed a face to face assessment of the patient and have reviewed the ADONIS Note. I performed a substantive portion of the visit including all aspects of the following. My hurd findings include: History is 78-year-old male history of prostate cancer prior prostatectomy. Also has a chronic indwelling suprapubic catheter. Complaining of right flank pain began several hours ago. Intermittent comes and goes in waves. No prior kidney stone. Denies any recent illness. No fever. No vomiting or diarrhea. No dysuria. History of bladder spasms. Exam is [78-year-old male vital signs are stable he is afebrile he does not look septic toxic. He clinically looks comfortable and finally has waves of pain causing right flank pain in the appears obviously uncomfortable and that was hit. H EENT exam pupils round react light. Mytrex members. Neck nontender no lymphadenopathy. No meningismus. Lungs clear to auscultation bilaterally. Heart tachycardic 110 no murmur. Chest wall ribs nontender. Abdomen soft nondistended normal bowel sounds without peritoneal signs. No obstruction. Suprapubic catheter was bag was changed. He is clear yellow urine.Moving all 4 extremities. Nontender no edema. Back nontender. Neurologically is awake alert no focal motor deficits.] Medical Decision Making [78-year-old male right flank pain. To be treated with IV morphine and Zofran. CAT scan the labs are being obtained.] Other additions or changes: [ repeat exam at 10:54 PM. Patient is improving with the IV fluids. He has had IV antibiotic Rocephin started. Blood and urine cultures have been sent. He has received 2 Lof fluid he will be given a third. Hospitalist on page to admit for urosepsis. Currently his blood pressure stable with a systolic over 100. He looks much better. Currently pain-free.] History & Record Review Additional record(s) reviewed:: Prior inpatient record, Prior outpatient record,Prior ED visit and Prior labs Lab Data Attestation: I reviewed the patient's lab results. Lab results narrative: CBC shows a white white count of 1.9. H&H of 12 and 36. Platelets 229. Electrolytes show a gap of 17. BUN and creatinine of 31 and 1.69 which is consistent with his chronic renal insufficiency. Glucose 139. Liver enzymes normal. Urinary tubing and drainage bag were changed prior to urinalysis. Urinalysis is infected. Creatinine 100 red cells. 1500 white cells. 5-10 epithelial cells. This is a suprapubic collection. Rare bacteria. Culture sent. Labs: Laboratory Results - last 24 hr 08/14/24 08/14/24 08/14/24 19:40 21:30 21:40 WBC 1.9 L RBC 4.23 L Hgb 12.0 L Hct 36.1 L MCV 85.3 MCH 28.4 MCHC 33.2 RDW Std Deviation 43.3 RDW Coeff of Jerry 14.0 Plt Count 229 MPV 9.6 Immature Gran % (Auto) 1.000 H Neut % (Auto) 76.8 H Lymph % (Auto) 15.5 L Stanley % (Auto) 0.5 Eos % (Auto) 5.7 H Baso % (Auto) 0.5 Absolute Neuts (auto) 1.5 L Absolute Lymphs (auto) 0.30 L Nucleated RBC % 0 Differential Comment SEE COMMENT Platelet Estimate ADEQUATE RBC Morphology NORM C+C Anisocytosis RARE PT 15.5 H INR 1.2 APTT 26.3 Sodium 139 Potassium 4.5 Chloride 105 Carbon Dioxide 17.4 L Anion Gap 17 H BUN 31 H Creatinine 1.69 H Est GFR (MDRD) Non-Af 42 L BUN/Creatinine Ratio 18.2 Glucose 139 H Lactic Acid 4.2 H* Calcium 9.2 Total Bilirubin 0.25 AST 24 ALT 16 Alkaline Phosphatase 85 Total Protein 7.2 Albumin 3.7 Globulin 3.4 Albumin/Globulin Ratio 1.1 Urine Color Urine Clarity Urine pH Ur Specific [place] Urine Protein Urine Glucose (UA) Urine Ketones Urine Occult Blood Urine Nitrite Urine Bilirubin Urine Urobilinogen Ur Leukocyte Esterase Urine RBC Urine WBC Ur Squamous Epith Cells Amorphous Sediment Urine Bacteria Urine Mucus 08/14/24 22:06 WBC RBC Hgb Hct MCV MCH MCHC RDW Std Deviation RDW Coeff of Jerry Plt Count MPV Immature Gran % (Auto) Neut % (Auto) Lymph % (Auto) Stanley % (Auto) Eos % (Auto) Baso % (Auto) Absolute Neuts (auto) Absolute Lymphs (auto) Nucleated RBC % Differential Comment Platelet Estimate RBC Morphology Anisocytosis PT INR APTT Sodium Potassium Chloride Carbon Dioxide Anion Gap BUN Creatinine Est GFR (MDRD) Non-Af BUN/Creatinine Ratio Glucose Lactic Acid Calcium Total Bilirubin AST ALT Alkaline Phosphatase Total Protein Albumin Globulin Albumin/Globulin Ratio Urine Color Red Urine Clarity Cloudy Urine pH 8.0 Ur Specific [place] 1.010 Urine Protein 100 H Urine Glucose (UA) Normal Urine Ketones 5 H Urine Occult Blood 250 H Urine Nitrite Negative Urine Bilirubin Negative Urine Urobilinogen Normal Ur Leukocyte Esterase 500 H Urine RBC > 100 SEEN Urine WBC 50-100 SEEN Ur Squamous Epith Cells 5-10 SEEN Amorphous Sediment 2+ PHOS Urine Bacteria RARE Urine Mucus 0 SEEN Radiography Diagnostic Testing: Clinical Impression(s) from Imaging Studies Abdomen/Pelvis CT 08/14/24 21:00 IMPRESSION: 1. Mild/moderate right hydroureteronephrosis without an obstructing calculus. Underlying obstructive bladder lesion not excluded. Recommend further assessment with nonemergent CT urogram and/or direct visualization. 2. Underdistended bladder with diffuse wall thickening and mild perivesicular fat stranding. Correlate for possible cystitis. Suprapubic catheter in place. 3. Additional chronic findings as above. One or more dose reduction techniques were used (e.g., Automated exposure control, adjustment of the mA and/or kV according to patient size, use of iterative reconstruction technique). Reading Location: [facility] Chest X-Ray 08/14/24 21:29 IMPRESSION: No focal airspace abnormality. Reading Location: [facility] Critical Care Time Critical Care Time: Yes Critical care time (excluding procedures): 30-74 minutes, Including time spent:,Discussing w/Patient &/or Family/Repeat Chief, Discussing w/Consultants, ArrangingAdmission or Transfer, Performing Direct Patient Care at Bedside and - (40 minutes) Discharge Plan Dx/Rx/DC Orders Clinical Impression: Acute abdominal pain in right flank, History of prostate cancer, Sepsis, Acute hypotension, Acute UTI Disposition Disposition: Acute Care Hospital [facility] Discharge Date/Time: 08/14/24 23:50 What to do if you have Problems For any increased pain, shortness of breath, bleeding, nausea or vomiting, chestpain, or any unexpected problems, contact your Primary Care Provider. Call [facility] ([phone]) or report tothe closest Emergency Room. Call 911 if necessary. 08/17/24 4996 Cosigner Signature (if applicable): 08/14/24 2325 CC: Dr. Kelvin Han MD ~ Signed [facility]03-14-2025 Consult note [facility] Note Date/Time August 17, 2024 1:4 2pm [facility] Medical Records Department [address] [place] [address] Consultation - Infectious Dx 08/17/24 1339 MR#: [id number] Acct: [id number] Name: BARBARA MILAN MONI Rep #:[id number] : 1945 78 From: Cameron nelson MD PCP: Dr. Kelvin Han MD Status :ADM IN Location: ICU ICU03-1 Assessment & Plan Assessment/Plan (1) Sepsis: QUALIFIERS: Sepsis type: sepsis due to unspecified organism Sepsis acute organ dysfunction status: with acute organ dysfunction Severe sepsis acute organ dysfunction type: acute renal failure Acute renal failure type: unspecified Severe sepsis shock status: with septic shock Qualified Code(s): A41.9 - Sepsis, unspecified organism; R65.21 - Severe sepsis with septic shock; N17.9 - Acute kidney failure, unspecified PLAN: Improved. Providencia bacteremia due to uti. Ucx with GNR x2 and a smaller amount of enterococcus-like. Will change to ceftriaxone and follow cxs. Will follow, thank you (2) Bacteremia due to Gram-negative bacteria: (3) UTI (urinary tract infection) due to urinary indwelling catheter: QUALIFIERS: Indwelling urinary catheter type: cystostomy catheter Encounter type: initial encounter Qualified Code(s): T83.510A - Infection and inflammatory reaction due to cystostomy catheter, initial encounter; N39.0 - Urinary tract infection, site not specified HPI Consult Data Date of Consult: 08/17/24 HPI Narrative Reason for Consultation: bacteremia HPI Narrative: BARBARA MILAN, is a 78 M with h/o prostate cancer with radical prostatectomy, suprapubic catheter in place, presented 08/14 with acute onset R flank 10 out of 10 stabbing pain with bladder spasms. Had fever and chills with n/v at home. Came to ED, admitted, on zosyn, feeling better. Changed to levaquin this AM. Full ROS performed and neg except as noted above. [facility] Medical History Hearing loss, left Hearing loss, right Anxiety Depression Chronic indwelling Worthy catheter TIA (transient ischemic attack) Chronic radiation cystitis Worthy catheter in place Wears glasses Cancer Arthritis Non-smoker History of pain when walking History of edema Hypertension Prostate cancer Blood in urine Home Medications ?Medication ?Instructions ?Recorded ?Last Taken ?Type amlodipine 10 mg tablet 10 mg PO DAILY BLOOD PRESSUR E 12/08/18 01/13/24 History lisinopril 40 mg tablet 40 mg PO BID BLOOD PRESSURE 12/08/18 01/13/24 History terazosin 5 mg capsule 5 mg PO QPM BLOOD PRESSURE 0 12/08/18 01/13/24 History multivit,Ca,min-iron 8 mg-folic 1 tab PO DAILY SUPPLEM ENT 11/04/23 01/13/24 History acid 200 mcg-lycopene 600 mcg tablet (A Thru Z [employer]) Allergy/AdvReac Type Severity Reaction Status Date / Time losartan Allergy Mild Rash Verified 08/14/24 19:22 Sulfa (Sulfonamide Allergy Hives Verified 08/14/24 19:22 Antibiotics) atenolol AdvReac Mild WEAKNESS Verified 08/14/24 19:22 hydrochlorothiazide AdvReac Mild UNKNOWN Verified 08/14/24 19:22 indomethacin (From Indocin) AdvReac Mild GI upset Verified 08/14/24 19:22 Surgical History History of left knee replacement Hx of radical prostatectomy Hx of cystoscopy Hx of colonoscopy Social History household members: spouse housing: house Smoking Status: Never smoker Physical Exam Const alert, oriented x3 and no apparent distress General Appearance: cooperative HEENT normocephalic and head/scalp atraumatic Eyes PERRL and EOMs intact bilaterally Neck supple and No nodes Resp normal air movement and clear to auscultation bilaterally Cardio regular rate and regular rhythm GI soft to palpation, non-tender and non-distended Extremity General Extremity: Negative for edema Skin no rashes or lesions noted Neuro CN's II-XII intact bilaterally Lab / Micro Data Attestation: I reviewed the patient's lab results. 08/17/24 03:07 08/17/24 03:07 Labs: Laboratory Results - last 24 hr 08/17/24 03:07: WBC 13.0 H, RBC 3.38 L, Hgb 9.5 L, Hct 28.8 L, MCV 85.2, MCH 28.1, MCHC 33.0, RDW Std Deviation 47.2 H, RDW Coeff of Jerry 15.2 H, Plt Count 181, MPV 10.8, Immature Gran % (Auto) 1.500 H, Neut % (Auto) 84.0 H, Lymph % (Auto) 4.4 L, Stanley % (Auto) 5.8, Eos % (Auto) 3.9, Baso % (Auto) 0.4, Absolute Neuts (auto) 11.0 H, Absolute Lymphs (auto) 0.57 L, Nucleated RBC % 0, Sodium 137, Potassium 3.8, Chloride 109 H, Carbon Dioxide 16.9 L, Anion Gap 10, BUN 24 H, Creatinine 1.46 H, Estim Creat Clear Calc 48.18 L, Est GFR (MDRD) Non-Af 50 L, BUN/Creatinine Ratio 16.3, Glucose 108 H, Calcium 7.9 Micro: Microbiology 08/14/24 22:06 Urine Catheter - Worthy Urine Culture - Preliminary Gram negative aziza Gram negative aziza#2 GPC Poss Enterococcus sp 08/14/24 21:40 Blood Culture (Wb) - Arm Left Blood Culture - Preliminary Providencia rettgeri 08/14/24 22:06 Blood Culture (Wb) - Anticubital Left Blood Culture - Preliminary Gram negative aziza 08/17/24 1342 <Electronically signed by Cameron Giron MD> Cosigner Signature (if applicable): CC: Dr. Kelvin Han MD~ Signed [facility] Work Phone: 1(745) 703-134203-14-2025 Consult note [facility] Medical Records Department [address] [place] [id number] Consultation - Infectious Dx 08/17/24 1339 MR#: [id number] Acct: [id number] Name: BARBARA MILAN MONI Rep #:[id number] : 1945 78 From: Cameron nelson MD PCP: Dr. Kelvin Han MD Status :ADM IN Location: ICU ICU03-1 Assessment & Plan Assessment/Plan (1) Sepsis: QUALIFIERS: Sepsis type: sepsis due to unspecified organism Sepsis acute organ dysfunction status: with acute organ dysfunction Severe sepsis acute organ dysfunction type: acute renal failure Acute renal failure type: unspecified Severe sepsis shock status: with septic shock Qualified Code(s): A41.9 - Sepsis, unspecified organism; R65.21 - Severe sepsis with septic shock; N17.9 - Acute kidney failure, unspecified PLAN: Improved. Providencia bacteremia due to uti. Ucx with GNR x2 and a smaller amount of enterococcus-like. Will change to ceftriaxone and follow cxs. Will follow, thank you (2) Bacteremia due to Gram-negative bacteria: (3) UTI (urinary tract infection) due to urinary indwelling catheter: QUALIFIERS: Indwelling urinary catheter type: cystostomy catheter Encounter type: initial encounterQualified Code(s): T83.510A - Infection and inflammatory reaction due to cystostomy catheter, initial encounter; N39.0 - Urinary tract infection, site not specified HPI Consult Data Date of Consult: 08/17/24 HPI Narrative Reason for Consultation: bacteremia HPI Narrative: BARBARA MILAN, is a 78 M with h/o prostate cancer with radical prostatectomy, suprapubic catheter in place, presented 08/14 with acute onset R flank 10 out of 10 stabbing pain with bladder spasms. Hadfever and chills with n/v at home. Came to ED, admitted, on zosyn, feeling better. Changed to levaquin this AM. Full ROS performed and neg except as noted above. [facility] Medical History Hearing loss, left Hearing loss, right Anxiety Depression Chronic indwelling Worthy catheter TIA (transient ischemic attack) Chronic radiation cystitis Worthy catheter in place Wears glasses Cancer Arthritis Non-smoker History of pain when walking History of edema Hypertension Prostate cancer Blood in urine Home Medications ?Medication ?Instructions ?Recorded ?Last Taken ?Type amlodipine 10 mg tablet 10 mg PO DAILY BLOOD PRESSUR E 12/08/18 01/13/24 History lisinopril 40 mg tablet 40 mg PO BID BLOOD PRESSURE 12/08/18 01/13/24 History terazosin 5 mg capsule 5 mg PO QPM BLOOD PRESSURE 0 12/08/18 01/13/24 History multivit,Ca,min-iron 8 mg-folic 1 tab PO DAILY SUPPLEM ENT 11/04/23 01/13/24 History acid 200 mcg-lycopene 600 mcg tablet (A Thru [employer]) Allergy/AdvReac Type Severity Reaction Status Date / Time losartan Allergy Mild Rash Verified 08/14/24 19:22 Sulfa (Sulfonamide Allergy Hives Verified 08/14/24 19:22 Antibiotics) atenolol AdvReac Mild WEAKNESS Verified 08/14/24 19:22 hydrochlorothiazide AdvReac Mild UNKNOWN Verified 08/14/24 19:22 indomethacin (From Indocin) AdvReac Mild GI upset Verified 08/14/24 19:22 Surgical History History of left knee replacement Hx of radical prostatectomy Hx of cystoscopy Hx of colonoscopy Social History household members: spouse housing: house Smoking Status: Never smoker Physical Exam Const alert, oriented x3 and no apparent distress General Appearance: cooperative HEENT normocephalic and head/scalp atraumatic Eyes PERRL and EOMs intact bilaterally Neck supple and No nodes Resp normal air movement and clear to auscultation bilaterally Cardio regular rate and regular rhythm GI soft to palpation, non-tender and non-distended Extremity General Extremity: Negative for edema Skin no rashes or lesions noted Neuro CN's II-XII intact bilaterally Lab / Micro Data Attestation: I reviewed the patient's lab results. 08/17/24 03:07 08/17/24 03:07 Labs: Laboratory Results - last 24 hr 08/17/24 03:07: WBC 13.0 H, RBC 3.38 L, Hgb 9.5 L, Hct 28.8 L, MCV 85.2, MCH 28.1, MCHC 33.0, RDW Std Deviation 47.2 H, RDW Coeff of Jerry 15.2 H, Plt Count 181, MPV 10.8, Immature Gran % (Auto) 1.500 H, Neut % (Auto) 84.0 H, Lymph % (Auto) 4.4 L, Stanley % (Auto) 5.8, Eos % (Auto) 3.9, Baso % (Auto) 0.4, Absolute Neuts (auto) 11.0 H, Absolute Lymphs (auto) 0.57 L, Nucleated RBC % 0, Sodium 137, Potassium 3.8, Chloride 109 H, Carbon Dioxide 16.9 L, Anion Gap 10, BUN 24 H, Creatinine 1.46 H, Estim Creat Clear Calc 48.18 L, Est GFR (MDRD) Non-Af 50 L, BUN/Creatinine Ratio 16.3, Glucose 108 H, Calcium 7.9 Micro: Microbiology 08/14/24 22:06 Urine Catheter - Worthy Urine Culture - Preliminary Gram negative aziza Gram negative aziza#2 GPC Poss Enterococcus sp 08/14/24 21:40 Blood Culture (Wb) - Arm Left Blood Culture - Preliminary Providencia rettgeri 08/14/24 22:06 Blood Culture (Wb) - Anticubital Left Blood Culture - Preliminary Gram negative aziza 08/17/24 1342 Cosigner Signature (if applicable): CC: Dr. Kelvin Han MD~ Signed [facility]03-14-2025 Progress note Author Juany Souza [facility] Note Date/Time August 17, 2024 11: 01am [facility] Medical Records Department [address] [place] [address] Progress Note - Hospitalist 08/17/24 0701 MR#: [id number] Acct: [id number] Name: BARBARA MILAN MONI Rep #:[id number] : 1945 78 From: Juany Souza MD PCP: Dr. Kelvin Han MD Status :ADM IN Location: ICU ICU03- 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) Bladder disorder, unspecified (08/14/24) Urinary tract infection, site not specified (08/14/24) Unspecified abdominal pain (08/14/24) Hematuria, unspecified (08/14/24) Severe sepsis with septic shock (08/14/24) Infection and inflammatory reaction due to cystostomy catheter, initial encounter (08/14/24) Personal history of malignant neoplasm of prostate (08/14/24) 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) Subjective Subjective Patient still quite weak but slowly getting better, has had a bowel movements was no longer constipated Objective Data Objective Data Vital Signs: Vital Signs Temp Pulse Resp BP Pulse Ox O2 Del Method O2 Flow Rate 98.6 F 72 20 H 116/74 93 Room Air 1 08/17/24 02:40 08/17/24 03:00 08/17/24 02:40 08/17/24 02:40 08/17/24 02:40 08/17/24 03:00 08/15/24 14:00 Oxygen Flow Rate (L/min) 1 Oxygen Delivery Method Room Air Weight: 90.7 kg Body Mass Index (BMI) 29.6 Intake & Output: Intake and Output for Last 24 Hours 08/15/24 08/16/24 08/17/24 23:59 23:59 23:59 Intake Total 3635.83 / 3654.63 429.90 / 429.90 50 / 50 Output Total 1250 / 1250 2175 / 2175 300 / 300 Balance 2385.83 / 2404.63 -1745.10 / -1745.10 -250 / -250 Lab / Micro Data 08/17/24 03:07 08/17/24 03:07 Labs: Laboratory Results - last 24 hr 08/17/24 03:07: WBC 13.0 H, RBC 3.38 L, Hgb 9.5 L, Hct 28.8 L, MCV 85.2, MCH 28.1, MCHC 33.0, RDW Std Deviation 47.2 H, RDW Coeff of Jerry 15.2 H, Plt Count 181, MPV 10.8, Immature Gran % (Auto) 1.500 H, Neut % (Auto) 84.0 H, Lymph % (Auto) 4.4 L, Stanley % (Auto) 5.8, Eos % (Auto) 3.9, Baso % (Auto) 0.4, Absolute Neuts (auto) 11.0 H, Absolute Lymphs (auto) 0.57 L, Nucleated RBC % 0, Sodium 137, Potassium 3.8, Chloride 109 H, Carbon Dioxide 16.9 L, Anion Gap 10, BUN 24 H, Creatinine 1.46 H, Estim Creat Clear Calc 48.18 L, Est GFR (MDRD) Non-Af 50 L, BUN/Creatinine Ratio 16.3, Glucose 108 H, Calcium 7.9 Micro: Microbiology 08/14/24 22:06 Urine Catheter - Worthy Urine Culture - Preliminary Gram negative aziza 08/14/24 22:06 Blood Culture (Wb) - Anticubital Left Blood Culture - Preliminary Gram negative aziza 08/14/24 21:40 Blood Culture (Wb) - Arm Left Blood Culture - Preliminary Gram negative aziza 08/14/24 21:40 Mucosa - Nose SARS-CoV-2, Influenza & RSV (PCR) - Final Physical Exam Narrative General: Alert, no apparent distress HEENT: Atraumatic, normocephalic Eyes: Anicteric, normal conjunctiva, extraocular movements grossly intact Neck: Supple Respiratory: Normal respiratory effort, no significant rhonchi or wheezes Cardiovascular: Regular rate GI: Soft, nontender, nondistended Extremities: No edema Musculoskeletal: Moving all extremities Neuro: No overt focal neurological deficits Skin: No rashes appreciated Psych: Cooperative Assessment & Plan Assessment/Plan (1) Sepsis: QUALIFIERS: Acute renal failure type: unspecified Sepsis acute organ dysfunction status: with acute organ dysfunction Sepsis type: sepsis due to unspecified organism Severe sepsis acute organ dysfunction type: acute renalfailure Severe sepsis shock status: with septic shock Qualified Code(s): A41.9- Sepsis, unspecified organism; R65.21 - Severe sepsis with septic shock; N17.9 - Acute kidney failure, unspecified (2) UTI (urinary tract infection) due to urinary indwelling catheter: QUALIFIERS: Encounter type: initial encounter Indwelling urinary catheter type: cystostomy catheter Qualified Code(s): T83.510A - Infection and inflammatory reaction due to cystostomy catheter, initial encounter; N39.0 - Urinary tract infection, site not specified PLAN: Plan # Septic shock gram-negative UTI in the setting of chronic suprapubic catheter- blood culture growing Providencia rettgeri -Patient febrile in the ED with temp of 102.9, tachycardic with heart rate in 140s, blood pressure in the ED down to 75/50 with a MAP of 58 with respiratory rate of 38, patient's O2 sat also decreased necessitating 2 L of nasal cannula in place, patient with bicarb of 17.4 in the ED with gap of 17, lactic acid of 4.2 and increasing creatinine up to 1.69 with baseline seemingly closer to 1.3 -UA suggestive of UTI -CT scan also suggestive of possible cystitis -Blood and urine cultures ordered -Ucx +, organism and sensitivity data pending, blood cultures 2 out of 2 also positive for gram-negative rods -Patient started on Zosyn -Patient received 3 L IV fluid and has remained hypotensive so norepinephrine ordered -Patient presently admitted in the ICU, automatic pinsetter mechanic consulted -08/16: Urine culture and sensitivity data pending, blood cultures positive, alsopending sensitivities, patient remains on Zosyn, patient off of norepinephrine and is significantly improving, changed to PCU status -08/17: Patient growing Providencia rettgeri and blood culture, ID consulted, patient seem to improve on Zosyn however sensitivities revealed this is resistant to Zosyn, will switch to Levaquin while awaiting further ID input # Creatinine elevation from baseline in setting of mild to moderate right hydroureteronephrosis -Patient's creatinine 1.69, baseline seems closer to 1.3 -CT scan in the ED showed mild/moderate right hydroureteronephrosis without obstructing calculus, underlying obstructive bladder lesion not excluded and it was recommended further assessment with nonemergent CT urogram and/or direct visualization -Patient has previously seen Dr. Gilliland, Dr. Gilliland consulted but it is suspected this is chronic and there is no current plan for intervention, patientto be monitored -08/16: Creatinine has begun to downtrend, today is 1.8 -08/17: Further improving now that infection/septic shock improving, creatinine 1.46 today. Patient will need to follow-up with urology on outpatient basis forhis chronic Worthy but no acute intervention planned #Hypertension -Patient with septic shock, hold amlodipine, lisinopril, terazosin -08/16: Continue to hold medications, patient off Levophed, as patient improves can add back medications as tolerated -08/17: Patient still on midodrine, will DC given patient's stable blood pressure, add back blood pressure medications as tolerated but will continue hold at this time, most recent blood pressure 116/74 Chronic medical problems: # History of prostate cancer -Status post prostate removal and radiation therapy through [facility] with subsequent bladder neck contracture and ultimately suprapubic catheter -PSA undetectable #DVT ppx: SCDs Juany Souza MD Charges/Coding Visit Charges Inpatient E&M: 78645 Subs Hosp L2 08/17/24 1101 <Electronically signed by Juany Souza MD> Cosigner Signature (if applicable): CC: ~ Signed [facility] Work Phone: 1(637) 431-619803-14-2025 Progress note [facility] Medical Records Department [address] [place] [address] Progress Note - Hospitalist 08/17/24 0701 MR#: [id number] Acct: [id number] Name: BARBARA MILAN MONI Rep #:[id number] : 1945 78 From: Juany Souza MD PCP: Dr. 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) Bladder disorder, unspecified (08/14/24) Urinary tract infection, site not specified (08/14/24) Unspecified abdominal pain (08/14/24) Hematuria, unspecified (08/14/24) Severe sepsis with septic shock (08/14/24) Infection and inflammatory reaction due to cystostomy catheter, initial encounter (08/14/24) Personal history of malignant neoplasm of prostate (08/14/24) 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) Subjective Subjective Patient still quite weak but slowly getting better, has had a bowel movements was no longer constipated Objective Data Objective Data Vital Signs: Vital Signs Temp Pulse Resp BP Pulse Ox O2 Del Method O2 Flow Rate 98.6 F 72 20 H 116/74 93 Room Air 1 08/17/24 02:40 08/17/24 03:00 08/17/24 02:40 08/17/24 02:40 08/17/24 02:40 08/17/24 03:00 08/15/24 14:00 Oxygen Flow Rate (L/min) 1 Oxygen Delivery Method Room Air Weight: 90.7 kg Body Mass Index (BMI) 29.6 Intake & Output: Intake and Output for Last 24 Hours 08/15/24 08/16/24 08/17/24 23:59 23:59 23:59 Intake Total 3635.83 / 3654.63 429.90 / 429.90 50 / 50 Output Total 1250 / 1250 2175 / 2175 300 / 300 Balance 2385.83 / 2404.63 -1745.10 / -1745.10 -250 / -250 Lab / Micro Data 08/17/24 03:07 08/17/24 03:07 Labs: Laboratory Results - last 24 hr 08/17/24 03:07: WBC 13.0 H, RBC 3.38 L, Hgb 9.5 L, Hct 28.8 L, MCV 85.2, MCH 28.1, MCHC 33.0, RDW Std Deviation 47.2 H, RDW Coeff of Jerry 15.2 H, Plt Count 181, MPV 10.8, Immature Gran % (Auto) 1.500 H, Neut % (Auto) 84.0 H, Lymph % (Auto) 4.4 L, Stanley % (Auto) 5.8, Eos % (Auto) 3.9, Baso % (Auto) 0.4, Absolute Neuts (auto) 11.0 H, Absolute Lymphs (auto) 0.57 L, Nucleated RBC % 0, Sodium 137, Potassium 3.8, Chloride 109 H, Carbon Dioxide 16.9 L, Anion Gap 10, BUN 24 H, Creatinine 1.46 H, Estim Creat Clear Calc 48.18 L, Est GFR (MDRD) Non-Af 50 L, BUN/Creatinine Ratio 16.3, Glucose 108 H, Calcium 7.9 Micro: Microbiology 08/14/24 22:06 Urine Catheter - Worthy Urine Culture - Preliminary Gram negative aziza 08/14/24 22:06 Blood Culture (Wb) - Anticubital Left Blood Culture - Preliminary Gram negative aziza 08/14/24 21:40 Blood Culture (Wb) - Arm Left Blood Culture - Preliminary Gram negative aziza 08/14/24 21:40 Mucosa - Nose SARS-CoV-2, Influenza & RSV (PCR) - Final Physical Exam Narrative General: Alert, no apparent distress HEENT: Atraumatic, normocephalic Eyes: Anicteric, normal conjunctiva, extraocular movements grossly intact Neck: Supple Respiratory: Normal respiratory effort, no significant rhonchi or wheezes Cardiovascular: Regular rate GI: Soft, nontender, nondistended Extremities: No edema Musculoskeletal: Moving all extremities Neuro: No overt focal neurological deficits Skin: No rashes appreciated Psych: Cooperative Assessment & Plan Assessment/Plan (1) Sepsis: QUALIFIERS: Acute renal failure type: unspecified Sepsis acute organ dysfunction status: with acuteorgan dysfunction Sepsis type: sepsis due to unspecified organism Severe sepsis acute organ dysfunction type: acute renalfailure Severe sepsis shock status: with septic shock Qualified Code(s): A41.9- Sepsis, unspecified organism; R65.21 - Severe sepsis with septic shock; N17.9 - Acute kidney failure, unspecified (2) UTI (urinary tract infection) due to urinary indwelling catheter: QUALIFIERS: Encounter type: initial encounter Indwelling urinary catheter type: cystostomy catheterQualified Code(s): T83.510A - Infection and inflammatory reaction due to cystostomy catheter, initial encounter; N39.0 - Urinary tract infection, site not specified PLAN: Plan # Septic shock gram-negative UTI in the setting of chronic suprapubic catheter- blood culture growing Providencia rettgeri -Patient febrile in the ED with temp of 102.9, tachycardic with heart rate in 140s, blood pressure in the ED down to 75/50 with a MAP of 58 with respiratory rate of 38, patient's O2 sat also decreased necessitating 2 L of nasal cannula in place, patient with bicarb of 17.4 in the ED with gap of 17,lactic acid of 4.2 and increasing creatinine up to 1.69 with baseline seemingly closer to 1.3 -UA suggestive of UTI -CT scan also suggestive of possible cystitis -Blood and urine cultures ordered -Ucx +, organism and sensitivity data pending, blood cultures 2 out of 2 also positive for gram-negative rods -Patient started on Zosyn -Patient received 3 L IV fluid and has remained hypotensive so norepinephrine ordered -Patient presently admitted in the ICU, automatic pinsetter mechanic consulted -08/16: Urine culture and sensitivity data pending, blood cultures positive, alsopending sensitivities, patient remains on Zosyn, patient off of norepinephrine and is significantly improving, changed to PCU status -08/17: Patient growing Providencia rettgeri and blood culture, ID consulted, patient seem to improve on Zosyn however sensitivities revealed this is resistant to Zosyn, will switch to Levaquin while awaiting further ID input # Creatinine elevation from baseline in setting of mild to moderate right hydroureteronephrosis -Patient's creatinine 1.69, baseline seems closer to 1.3 -CT scan in the ED showed mild/moderate right hydroureteronephrosis without obstructing calculus, underlying obstructive bladder lesion not excluded and it was recommended further assessment with nonemergent CT urogram and/or direct visualization -Patient has previously seen Dr. Gilliland, Dr. Gilliland consulted but it is suspected this is chronic and there is no current plan for intervention, patientto be monitored -08/16: Creatinine has begun to downtrend, today is 1.8 -08/17: Further improving now that infection/septic shock improving, creatinine 1.46 today. Patient will need to follow-up with urology on outpatient basis forhis chronic Worthy but no acute intervention planned #Hypertension -Patient with septic shock, hold amlodipine, lisinopril, terazosin -08/16: Continue to hold medications, patient off Levophed, as patient improves can add back medications as tolerated -08/17: Patient still on midodrine, will DC given patient's stable blood pressure, add back blood pressure medications as tolerated but will continue hold at this time, most recent blood pressure 116/74 Chronic medical problems: # History of prostate cancer -Status post prostate removal and radiation therapy through [facility] with subsequent bladder neck contracture and ultimately suprapubic catheter -PSA undetectable #DVT ppx: SCDs Juany Souza MD Charges/Coding Visit Charges Inpatient E&M: 06617 Subs Hosp L2 08/17/24 1101 Cosigner Signature (if applicable): CC: ~ Signed [facility]03-14-2025 Progress note Author Darryn Underwood [facility] Note Date/Time August 17, 2024 8:4 6am [facility] Medical Records Department [address] [place] [address] Progress Note - Pharmacist Helper 08/17/24 0808 MR#: [id number] Acct: [id number] Name: BARBARA MILAN MONI Rep #:[id number] : 1945 78 From: Darryn Underwood DO PCP: Dr. Kelvin Han MD Status :ADM IN Location: ICU ICU03-1 Assessment & Plan Assessment/Plan (1) Septic shock: PLAN: Plan RECOMMENDATIONS: 1. Continue empiric antimicrobial therapy. Narrow antimicrobials once sensitivities are known. 2. Continue appropriate DVT prophylaxis. 3. Encourage incentive spirometer use and mobilize patient as tolerated. 4. Will sign off from a pulmonary/critical care perspective. Please call with any additional questions. IMPRESSIONS: 1. Gram-negative septic shock Improved. The patient presented to the hospital with sepsis due to probable urinary tract source of infection with acute sepsis related organ dysfunction asevidenced by lactic acidemia and fluid refractory hypotension, requiring vasopressor support. With supportive care, including supplemental fluid hydration and antimicrobial therapy, the patient has been weaned from vasopressor support and remains hemodynamically stable. Plan to continue antibiotics, pending finalized cultures and sensitivities. Urology is followingwithout plans for any form of intervention. 2. Acute on chronic kidney disease Improving. Most likely prerenal in etiology in the setting of #1. Continue to monitor urine output for now. No current indication for renal replacement therapy. 3. History of prostate cancer/chronic urinary retention with suprapubic catheter/hypertension/depression Complicates care, management, recovery and prognosis. Continue supportive measures as noted above. Continue to hold home antihypertensives for now. This note was generated with Clicknation dictation software. It may contain incorrectwords, spelling, and punctuation that were not noted in checking the note beforesigning. Subjective Subjective The patient was seen and examined at the bedside this morning. Events from the last 24 hours have been reviewed. The patient is currently afebrile, hemodynamically stable and maintaining appropriate oxygen saturations on room air. No overnight events were noted. White blood cell count remains stable at 13,000. Creatinine has improved to 1.46. Objective Data Objective Data The patient's most recent lab work, culture data and imaging studies have all been personally reviewed. Preliminary blood culture from August 14 is demonstrating growth at [facility]. Urine culture is demonstrating growth of agram-negative aziza. Vital Signs: Vital Signs Temp Pulse Resp BP Pulse Ox O2 Del Method O2 Flow Rate 98.6 F 72 20 H 116/74 93 Room Air 1 08/17/24 02:40 08/17/24 03:00 08/17/24 02:40 08/17/24 02:40 08/17/24 02:40 08/17/24 03:00 08/15/24 14:00 Oxygen Flow Rate (L/min) 1 Oxygen Delivery Method Room Air Weight: 199 lb 15.348 oz Body Mass Index (BMI) 29.6 Intake & Output: Intake and Output for Last 24 Hours 08/15/24 08/16/24 08/17/24 23:59 23:59 23:59 Intake Total 3635.83 / 3654.63 429.90 / 429.90 50 / 50 Output Total 1250 / 1250 2175 / 2175 300 / 300 Balance 2385.83 / 2404.63 -1745.10 / -1745.10 -250 / -250 Lab / Micro Data Attestation: I reviewed the patient's lab results. 08/17/24 03:07 08/17/24 03:07 Labs: Laboratory Results - last 24 hr 08/17/24 03:07: WBC 13.0 H, RBC 3.38 L, Hgb 9.5 L, Hct 28.8 L, MCV 85.2, MCH 28.1, MCHC 33.0, RDW Std Deviation 47.2 H, RDW Coeff of Jerry 15.2 H, Plt Count 181, MPV 10.8, Immature Gran % (Auto) 1.500 H, Neut % (Auto) 84.0 H, Lymph % (Auto) 4.4 L, Stanley % (Auto) 5.8, Eos % (Auto) 3.9, Baso % (Auto) 0.4, Absolute Neuts (auto) 11.0 H, Absolute Lymphs (auto) 0.57 L, Nucleated RBC % 0, Sodium 137, Potassium 3.8, Chloride 109 H, Carbon Dioxide 16.9 L, Anion Gap 10, BUN 24 H, Creatinine 1.46 H, Estim Creat Clear Calc 48.18 L, Est GFR (MDRD) Non-Af 50 L, BUN/Creatinine Ratio 16.3, Glucose 108 H, Calcium 7.9 Micro: Microbiology 08/14/24 21:40 Blood Culture (Wb) - Arm Left Blood Culture - Preliminary [facility] rettgeri 08/14/24 22:06 Urine Catheter - W[facility] Urine Culture - Preliminary Gram negative aziza 08/14/24 22:06 Blood Culture (Wb) - Anticubital Left Blood Culture - Preliminary Gram negative aziza 08/14/24 21:40 Mucosa - Nose SARS-CoV-2, Influenza & RSV (PCR) - Final Physical Exam Const alert, oriented x3 and no apparent distress Constitutional Narrative: is present at the bedside. General Appearance: cooperative HEENT normocephalic and head/scalp atraumatic Eyes PERRL, EOMs intact bilaterally and conjunctivae normal Neck supple General: trachea midline Chest inspection of chest normal Resp normal respiratory effort Auscultation: Negative for rales, rhonchi or wheezes Cardio regular rate and regular rhythm GI Negative for soft to palpation or non-tender Narrative: Suprapubic catheter in place Extremity no clubbing, cyanosis or edema Skin no rashes or lesions noted Neuro CN's II-XII intact bilaterally, moves all extremities and no focal motor deficits Psych cooperative and affect normal Charges/Coding Visit Charges Inpatient E&M: 79331 Subs Hosp L2 08/17/24 0846 <Electronically signed by Darryn Underwood DO> Cosigner Signature (if applicable): CC: ~ Signed [facility] Work Phone: [phone] Progress note [facility] Medical Records Department [address] [place] [address] Progress Note - Pharmacist Helper 08/17/24 0808 MR#: [id number] Acct: [id number] Name: BARBARA MILAN MONI Rep #:[id number] : 1945 78 From: Darryn Underwood DO PCP: Dr. Kelvin Han MD Status :ADM IN Location: ICU ICU03-1 Assessment & Plan Assessment/Plan (1) Septic shock: PLAN: Plan RECOMMENDATIONS: 1. Continue empiric antimicrobial therapy. Narrow antimicrobials once sensitivities are known. 2. Continue appropriate DVT prophylaxis. 3. Encourage incentive spirometer use and mobilize patient as tolerated. 4. Will sign off from a pulmonary/critical care perspective. Please call with any additional questions. IMPRESSIONS: 1. Gram-negative septic shock Improved. The patient presented to the hospital with sepsis due to probable urinary tract source ofinfection with acute sepsis related organ dysfunction asevidenced by lactic acidemia and fluid refractory hypotension, requiring vasopressor support. With supportive care, including supplemental fluid hydration and antimicrobial therapy, the patient has been weaned from vasopressor support and remains hemodynamically stable. Plan to continue antibiotics, pending finalized cultures and sensitivities. Urology is followingwithout plans for any form of intervention. 2. Acute on chronic kidney disease Improving. Most likely prerenal in etiology in the setting of #1. Continue to monitor urine output for now. No current indication for renal replacement therapy. 3. History of prostate cancer/chronic urinary retention with suprapubic catheter/hypertension/depression Complicates care, management, recovery and prognosis. Continue supportive measures as noted above. Continue to hold home antihypertensives for now. This note was generated with HookLog[employer] software. It may contain incorrectwords, spelling, and punctuation that were not noted in checking the note beforesigning. Subjective Subjective The patient was seen and examined at the bedside this morning. Events from the last 24 hours have been reviewed. The patient is currently afebrile, hemodynamically stable and maintaining appropriate oxygen saturations on room air. No overnight events were noted. White blood cell count remains stable at 13,000. Creatinine has improved to 1.46. Objective Data Objective Data The patient's most recent lab work, culture data and imaging studies have all been personally reviewed. Preliminary blood culture from August 14 is demonstrating growth at [facility]. Urine culture is demonstrating growth of agram-negative aziza. Vital Signs: Vital Signs Temp Pulse Resp BP Pulse Ox O2 Del Method O2 Flow Rate 98.6 F 72 20 H 116/74 93 Room Air 1 08/17/24 02:40 08/17/24 03:00 08/17/24 02:40 08/17/24 02:40 08/17/24 02:40 08/17/24 03:00 08/15/24 14:00 Oxygen Flow Rate (L/min) 1 Oxygen Delivery Method Room Air Weight: 199 lb 15.348 oz Body Mass Index (BMI) 29.6 Intake & Output: Intake and Output for Last 24 Hours 08/15/24 08/16/24 08/17/24 23:59 23:59 23:59 Intake Total 3635.83 / 3654.63 429.90 / 429.90 50 / 50 Output Total 1250 / 1250 2175 / 2175 300 / 300 Balance 2385.83 / 2404.63 -1745.10 / -1745.10 -250 / -250 Lab / Micro Data Attestation: I reviewed the patient's lab results. 08/17/24 03:07 08/17/24 03:07 Labs: Laboratory Results - last 24 hr 08/17/24 03:07: WBC 13.0 H, RBC 3.38 L, Hgb 9.5 L, Hct 28.8 L, MCV 85.2, MCH 28.1, MCHC 33.0, RDW Std Deviation 47.2 H, RDW Coeff of Jerry 15.2 H, Plt Count 181, MPV 10.8, Immature Gran % (Auto) 1.500 H, Neut % (Auto) 84.0 H, Lymph % (Auto) 4.4 L, Stanley % (Auto) 5.8, Eos % (Auto) 3.9, Baso % (Auto) 0.4, Absolute Neuts (auto) 11.0 H, Absolute Lymphs (auto) 0.57 L, Nucleated RBC % 0, Sodium 137, Potassium 3.8, Chloride 109 H, Carbon Dioxide 16.9 L, Anion Gap 10, BUN 24 H, Creatinine 1.46 H, Estim Creat Clear Calc 48.18 L, Est GFR (MDRD) Non-Af 50 L, BUN/Creatinine Ratio 16.3, Glucose 108 H, Calcium 7.9 Micro: Microbiology 08/14/24 21:40 Blood Culture (Wb) - Arm Left Blood Culture - Preliminary [facility] rettgeri 08/14/24 22:06 Urine Catheter - [facility] Urine Culture - Preliminary Gram negative aziza 08/14/24 22:06 Blood Culture (Wb) - Anticubital Left Blood Culture - Preliminary Gram negative aziza 08/14/24 21:40 Mucosa - Nose SARS-CoV-2, Influenza & RSV (PCR) - Final Physical Exam Const alert, oriented x3 and no apparent distress Constitutional Narrative: is present at the bedside. General Appearance: cooperative HEENT normocephalic and head/scalp atraumatic Eyes PERRL, EOMs intact bilaterally and conjunctivae normal Neck supple General: trachea midline Chest inspection of chest normal Resp normal respiratory effort Auscultation: Negative for rales, rhonchi or wheezes Cardio regular rate and regular rhythm GI Negative for soft to palpation or non-tender Narrative: Suprapubic catheter in place Extremity no clubbing, cyanosis or edema Skin no rashes or lesions noted Neuro CN's II-XII intact bilaterally, moves all extremities and no focal motor deficits Psych cooperative and affect normal Charges/Coding Visit Charges Inpatient E&M: 48236 Subs Hosp L2 08/17/24 0846 Cosigner Signature (if applicable): CC: ~ Signed [facility]03-13-2025 Progress note Author Juany Souza [facility] Note Date/Time August 16, 2024 5:1 4pm [facility] Medical Records Department [address] [place] [address] Progress Note - Hospitalist 08/16/24 9437 MR#: [id number] Acct: [id number] Name: BARBARA MILAN Rep #:[id number] : 1945 78 From: Juany Souza MD PCP: Dr. 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) Bladder disorder, unspecified (08/14/24) Urinary tract infection, site not specified (08/14/24) Unspecified abdominal pain (08/14/24) Hematuria, unspecified (08/14/24) Severe sepsis with septic shock (08/14/24) Infection and inflammatory reaction due to cystostomy catheter, initial encounter (08/14/24) Personal history of malignant neoplasm of prostate (08/14/24) 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83 / 3654.63 329.90 / 329.90 Output Total 1250 / 1250 475 / 475 Balance 2049 2385.83 / 2404.63 -145.10 / -145.10 Lab / Micro Data 08/16/24 03:22 08/16/24 03:22 Labs: Laboratory Results - last 24 hr 08/15/24 07:35: Differential Comment , Sodium 139, Potassium 4.6, Chloride 110 H, Carbon Dioxide 16.2 L, Anion Gap 13, BUN 32 H, Creatinine 1.98 H, Estim Creat Clear Calc 35.03 L, Est GFR (MDRD) Non-Af 34 L, BUN/Creatinine Ratio 16.1, Glucose 130 H, Lactic Acid 3.5 H*, Calcium 7.4 L 08/16/24 03:22: WBC 14.4 H, RBC 3.19 L, Hgb 9.0 L, Hct 27.1 L, MCV 85.0, MCH 28.2, MCHC 33.2, RDW Std Deviation 47.5 H, RDW Coeff of Jerry 15.4 H, Plt Count 154, MPV 10.8, Immature Gran % (Auto) 4.200 H, Neut % (Auto) 84.0 H, Lymph % (Auto) 3.3 L, Stanley % (Auto) 5.9, Eos % (Auto) 2.2, Baso % (Auto) 0.4, Absolute Neuts (auto) 12.1 H, Absolute Lymphs (auto) 0.47 L, Nucleated RBC % 0, Differential Comment , Toxic Vacuolation 2+, Platelet Estimate ADEQUATE, RBC Morphology NORM C+C, Sodium 137, Potassium 4.1, Chloride 108, Carbon Dioxide 16.2 L, Anion Gap 12, BUN 31 H, Creatinine 1.80 H, Estim Creat Clear Calc 39.08 L, Est GFR (MDRD) Non-Af 39 L, BUN/Creatinine Ratio 17.4, Glucose 89, Calcium 7.7 Micro: Microbiology 08/14/24 21:40 Blood Culture (Wb) - Arm Left Blood Culture - Preliminary 08/14/24 22:06 Blood Culture (Wb) - Anticubital Left Blood Culture - Preliminary 08/14/24 22:06 Urine Catheter - [facility] Urine Culture - Preliminary Gram negative aziza 08/14/24 21:40 Mucosa - Nose SARS-CoV-2, Influenza & RSV (PCR) - Final Physical Exam Narrative General: Alert, no apparent distress HEENT: Atraumatic, normocephalic Eyes: Anicteric, normal conjunctiva, extraocular movements grossly intact Neck: Supple Respiratory: Normal respiratory effort, no significant rhonchi or wheezes Cardiovascular: Regular rate GI: Soft, nontender, nondistended Extremities: No edema Musculoskeletal: Moving all extremities Neuro: No overt focal neurological deficits Skin: No rashes appreciated Psych: Cooperative Assessment & Plan Assessment/Plan (1) Sepsis: QUALIFIERS: Acute renal failure type: unspecified Sepsis acute organ dysfunction status: with acute organ dysfunction Sepsis type: sepsis due to unspecified organism Severe sepsis acute organ dysfunction type: acute renalfailure Severe sepsis shock status: with septic shock Qualified Code(s): A41.9- Sepsis, unspecified organism; R65.21 - Severe sepsis with septic shock; N17.9 - Acute kidney failure, unspecified (2) UTI (urinary tract infection) due to urinary indwelling catheter: QUALIFIERS: Encounter type: initial encounter Indwelling urinary catheter type: cystostomy catheter Qualified Code(s): T83.510A - Infection and inflammatory reaction due to cystostomy catheter, initial encounter; N39.0 - Urinary tract infection, site not specified PLAN: Plan # Septic shock suspect secondary to UTI in the setting of chronic suprapubic catheter -Patient febrile in the ED with temp of 102.9, tachycardic with heart rate in 140s, blood pressure in the ED down to 75/50 with a MAP of 58 with respiratory rate of 38, patient's O2 sat also decreased necessitating 2 L of nasal cannula in place, patient with bicarb of 17.4 in the ED with gap of 17, lactic acid of 4.2 and increasing creatinine up to 1.69 with baseline seemingly closer to 1.3 -UA suggestive of UTI -CT scan also suggestive of possible cystitis -Blood and urine cultures ordered -Ucx +, organism and sensitivity data pending, blood cultures 2 out of 2 also positive for gram-negative rods -Patient started on Zosyn -Patient received 3 L IV fluid and has remained hypotensive so norepinephrine ordered -Patient presently admitted in the ICU, automatic pinsetter mechanic consulted -08/16: Urine culture and sensitivity data pending, blood cultures positive, alsopending sensitivities, patient remains on Zosyn, patient off of norepinephrine and is significantly improving, changed to PCU status # Creatinine elevation from baseline in setting of mild to moderate right hydroureteronephrosis -Patient's creatinine 1.69, baseline seems closer to 1.3 -CT scan in the ED showed mild/moderate right hydroureteronephrosis without obstructing calculus, underlying obstructive bladder lesion not excluded and it was recommended further assessment with nonemergent CT urogram and/or direct visualization -Patient has previously seen Dr. Gilliland, Dr. Gilliland consulted but it is suspected this is chronic and there is no current plan for intervention, patientto be monitored -08/16: Creatinine has begun to downtrend, today is 1.8 #Hypertension -Patient with septic shock, hold amlodipine, lisinopril, terazosin -08/16: Continue to hold medications, patient off Levophed, as patient improves can add back medications as tolerated Chronic medical problems: # History of prostate cancer -Status post prostate removal and radiation therapy through [facility] with subsequent bladder neck contracture and ultimately suprapubic catheter -PSA undetectable #DVT ppx: SCDs Juany Souza MD Charges/Coding Visit Charges Inpatient E&M: 99885 Subs Hosp L2 08/16/24 7770 <Electronically signed by Juany Souza MD> Cosigner Signature (if applicable): CC: ~ Signed [facility] Work Phone: [phone]) 172-936103-13-2025 Progress note [facility] Medical Records Department [address] [place] [address] Progress Note - Hospitalist 08/16/24 0754 MR#: [id number] Acct: [id number] Name: MARIANABARBARA MONI Rep #:[id number] : 1945 78 From: Juany Souza MD PCP: Dr. 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) Bladder disorder, unspecified (08/14/24) Urinary tract infection, site not specified (08/14/24) Unspecified abdominal pain (08/14/24) Hematuria, unspecified (08/14/24) Severe sepsis with septic shock (08/14/24) Infection and inflammatory reaction due to cystostomy catheter, initial encounter (08/14/24) Personal history of malignant neoplasm of prostate (08/14/24) 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83 / 3654.63 329.90 / 329.90 Output Total 1250 / 1250 475 / 475 Balance 2049 2385.83 / 2404.63 -145.10 / -145.10 Lab / Micro Data 08/16/24 03:22 08/16/24 03:22 Labs: Laboratory Results - last 24 hr 08/15/24 07:35: Differential Comment , Sodium 139, Potassium 4.6, Chloride 110 H, Carbon Dioxide 16.2 L, Anion Gap 13, BUN 32 H, Creatinine 1.98 H, Estim Creat Clear Calc 35.03 L, Est GFR (MDRD) Non-Af 34 L, BUN/Creatinine Ratio 16.1, Glucose 130 H, Lactic Acid 3.5 H*, Calcium 7.4 L 08/16/24 03:22: WBC 14.4 H, RBC 3.19 L, Hgb 9.0 L, Hct 27.1 L, MCV 85.0, MCH 28.2, MCHC 33.2, RDW Std Deviation 47.5 H, RDW Coeff of Jerry 15.4 H, Plt Count 154, MPV 10.8, Immature Gran % (Auto) 4.200 H, Neut % (Auto) 84.0 H, Lymph % (Auto) 3.3 L, Stanley % (Auto) 5.9, Eos % (Auto) 2.2, Baso % (Auto) 0.4, Absolute Neuts (auto) 12.1 H, Absolute Lymphs (auto) 0.47 L, Nucleated RBC % 0, Differential Comment , Toxic Vacuolation 2+, Platelet Estimate ADEQUATE, RBC Morphology NORM C+C, Sodium 137, Potassium 4.1, Chloride 108, Carbon Dioxide 16.2 L, Anion Gap 12, BUN 31 H, Creatinine 1.80 H, Estim Creat Clear Calc 39.08 L, Est GFR (MDRD) Non-Af 39 L, BUN/Creatinine Ratio 17.4, Glucose 89, Calcium 7.7 Micro: Microbiology 08/14/24 21:40 Blood Culture (Wb) - Arm Left Blood Culture - Preliminary 08/14/24 22:06 Blood Culture (Wb) - Anticubital Left Blood Culture - Preliminary 08/14/24 22:06 Urine Catheter - [facility] Urine Culture - Preliminary Gram negative aziza 08/14/24 21:40 Mucosa - Nose SARS-CoV-2, Influenza & RSV (PCR) - Final Physical Exam Narrative General: Alert, no apparent distress HEENT: Atraumatic, normocephalic Eyes: Anicteric, normal conjunctiva, extraocular movements grossly intact Neck: Supple Respiratory: Normal respiratory effort, no significant rhonchi or wheezes Cardiovascular: Regular rate GI: Soft, nontender, nondistended Extremities: No edema Musculoskeletal: Moving all extremities Neuro: No overt focal neurological deficits Skin: No rashes appreciated Psych: Cooperative Assessment & Plan Assessment/Plan (1) Sepsis: QUALIFIERS: Acute renal failure type: unspecified Sepsis acute organ dysfunction status: with acuteorgan dysfunction Sepsis type: sepsis due to unspecified organism Severe sepsis acute organ dysfunction type: acute renalfailure Severe sepsis shock status: with septic shock Qualified Code(s): A41.9- Sepsis, unspecified organism; R65.21 - Severe sepsis with septic shock; N17.9 - Acute kidney failure, unspecified (2) UTI (urinary tract infection) due to urinary indwelling catheter: QUALIFIERS: Encounter type: initial encounter Indwelling urinary catheter type: cystostomy catheterQualified Code(s): T83.510A - Infection and inflammatory reaction due to cystostomy catheter, initial encounter; N39.0 - Urinary tract infection, site not specified PLAN: Plan # Septic shock suspect secondary to UTI in the setting of chronic suprapubic catheter -Patient febrile in the ED with temp of 102.9, tachycardic with heart rate in 140s, blood pressure in the ED down to 75/50 with a MAP of 58 with respiratory rate of 38, patient's O2 sat also decreased necessitating 2 L of nasal cannula in place, patient with bicarb of 17.4 in the ED with gap of 17,lactic acid of 4.2 and increasing creatinine up to 1.69 with baseline seemingly closer to 1.3 -UA suggestive of UTI -CT scan also suggestive of possible cystitis -Blood and urine cultures ordered -Ucx +, organism and sensitivity data pending, blood cultures 2 out of 2 also positive for gram-negative rods -Patient started on Zosyn -Patient received 3 L IV fluid and has remained hypotensive so norepinephrine ordered -Patient presently admitted in the ICU, automatic pinsetter mechanic consulted -08/16: Urine culture and sensitivity data pending, blood cultures positive, alsopending sensitivities, patient remains on Zosyn, patient off of norepinephrine and is significantly improving, changed to PCU status # Creatinine elevation from baseline in setting of mild to moderate right hydroureteronephrosis -Patient's creatinine 1.69, baseline seems closer to 1.3 -CT scan in the ED showed mild/moderate right hydroureteronephrosis without obstructing calculus, underlying obstructive bladder lesion not excluded and it was recommended further assessment with nonemergent CT urogram and/or direct visualization -Patient has previously seen Dr. Gilliland, Dr. Gilliland consulted but it is suspected this is chronic and there is no current plan for intervention, patientto be monitored -08/16: Creatinine has begun to downtrend, today is 1.8 #Hypertension -Patient with septic shock, hold amlodipine, lisinopril, terazosin -08/16: Continue to hold medications, patient off Levophed, as patient improves can add back medications as tolerated Chronic medical problems: # History of prostate cancer -Status post prostate removal and radiation therapy through [facility] with subsequent bladder neck contracture and ultimately suprapubic catheter -PSA undetectable #DVT ppx: SCDs Juany Souza MD Charges/Coding Visit Charges Inpatient E&M: 84323 Subs Hosp L2 08/16/24 6277 Cosigner Signature (if applicable): CC: ~ Signed [facility]03-13-2025 Progress note Author Darryn Underwood [facility] Note Date/Time August 16, 2024 9:2 8am [facility] Medical Records Department [address] [place] [address] Progress Note - Pharmacist Helper 08/16/24 0750 MR#: [id number] Acct: [id number] Name: BARBARA MILAN MONI Rep #:[id number] : 1945 78 From: Darryn Underwood DO PCP: Dr. Kelvin Han MD Status :ADM IN Location: ICU ICU03-1 Assessment & Plan Assessment/Plan (1) Septic shock: PLAN: Plan RECOMMENDATIONS: 1. Continue empiric antimicrobial therapy. Narrow antimicrobials once sensitivities are known. 2. Continue appropriate DVT prophylaxis. 3. Encourage incentive spirometer use and mobilize patient as tolerated. 4. The patient is medically stable for transfer out of the intensive care unit. IMPRESSIONS: 1. Gram-negative septic shock Improved. The patient presented to the hospital with sepsis due to probable urinary tract source of infection with acute sepsis related organ dysfunction asevidenced by lactic acidemia and fluid refractory hypotension, requiring vasopressor support. With supportive care, including supplemental fluid hydration and antimicrobial therapy, the patient has been weaned from vasopressor support and remains hemodynamically stable. Plan to continue antibiotics, pending finalized cultures and sensitivities. Urology is followingwithout plans for any form of intervention. 2. Acute on chronic kidney disease Most likely prerenal in etiology in the setting of #1. Continue to monitor urineoutput for now. No current indication for renal replacement therapy. 3. History of prostate cancer/chronic urinary retention with suprapubic catheter/hypertension/depression Complicates care, management, recovery and prognosis. Continue supportive measures as noted above. Continue to hold home antihypertensives for now. This note was generated with Clicknation dictation software. It may contain incorrectwords, spelling, and punctuation that were not noted in checking the note beforesigning. Subjective Subjective The patient was seen and examined at the bedside this morning. Events from the last 24 hours have been reviewed. The patient is currently afebrile, hemodynamically stable and maintaining appropriate oxygen saturations on room air. The patient was weaned off of Levophed completely overnight. The patient is documented to be overall net +4.3 L for the hospitalization. White blood cell count is elevated at 14,000. Hemoglobin and platelet count are stable. Creatinine is mildly improved at 1.8. Objective Data Objective Data The patient's most recent lab work, culture data and imaging studies have all been personally reviewed. Preliminary blood culture on August 14 was positive for gram-negative rods. Urine culture is also demonstrating growth of a gram- negative aziza. Vital Signs: Vital Signs Temp Pulse Resp BP Pulse Ox O2 Del Method O2 Flow Rate 98.3 F 84 18 108/66 94 Room Air 1 08/16/24 04:00 08/16/24 07:00 08/16/24 07:00 08/16/24 07:00 08/16/24 07:00 08/16/24 07:00 08/15/24 14:00 Oxygen Flow Rate (L/min) 1 Oxygen Delivery Method Room Air Weight: 202 lb 6.15 oz Body Mass Index (BMI) 29.9 Intake & Output: Intake and Output for Last 24 Hours 08/14/24 08/15/24 08/16/24 23:59 23:59 23:59 Intake Total 2049 3635.83 / 3654.63 329.90 / 329.90 Output Total 1250 / 1250 475 / 475 Balance 2049 2385.83 / 2404.63 -145.10 / -145.10 Lab / Micro Data Attestation: I reviewed the patient's lab results. 08/16/24 03:22 08/16/24 03:22 Labs: Laboratory Results - last 24 hr 08/15/24 07:35: Differential Comment , Sodium 139, Potassium 4.6, Chloride 110 H, Carbon Dioxide 16.2 L, Anion Gap 13, BUN 32 H, Creatinine 1.98 H, Estim Creat Clear Calc 35.03 L, Est GFR (MDRD) Non-Af 34 L, BUN/Creatinine Ratio 16.1, Glucose 130 H, Lactic Acid 3.5 H*, Calcium 7.4 L 08/16/24 03:22: WBC 14.4 H, RBC 3.19 L, Hgb 9.0 L, Hct 27.1 L, MCV 85.0, MCH 28.2, MCHC 33.2, RDW Std Deviation 47.5 H, RDW Coeff of Jerry 15.4 H, Plt Count 154, MPV 10.8, Immature Gran % (Auto) 4.200 H, Neut % (Auto) 84.0 H, Lymph % (Auto) 3.3 L, Stanley % (Auto) 5.9, Eos % (Auto) 2.2, Baso % (Auto) 0.4, Absolute Neuts (auto) 12.1 H, Absolute Lymphs (auto) 0.47 L, Nucleated RBC % 0, Differential Comment , Toxic Vacuolation 2+, Platelet Estimate ADEQUATE, RBC Morphology NORM C+C, Sodium 137, Potassium 4.1, Chloride 108, Carbon Dioxide 16.2 L, Anion Gap 12, BUN 31 H, Creatinine 1.80 H, Estim Creat Clear Calc 39.08 L, Est GFR (MDRD) Non-Af 39 L, BUN/Creatinine Ratio 17.4, Glucose 89, Calcium 7.7 Micro: Microbiology 08/14/24 21:40 Blood Culture (Wb) - Arm Left Blood Culture - Preliminary 08/14/24 22:06 Blood Culture (Wb) - Anticubital Left Blood Culture - Preliminary 08/14/24 22:06 Urine Catheter - Worthy Urine Culture - Preliminary Gram negative aziza 08/14/24 21:40 Mucosa - Nose SARS-CoV-2, Influenza & RSV (PCR) - Final Physical Exam Const alert, oriented x3 and no apparent distress Constitutional Narrative: Sitting in bedside recliner. General Appearance: cooperative HEENT normocephalic and head/scalp atraumatic Eyes PERRL, EOMs intact bilaterally and conjunctivae normal Neck supple General: trachea midline Chest inspection of chest normal Resp normal respiratory effort Auscultation: Negative for rales, rhonchi or wheezes Cardio regular rate and regular rhythm GI Negative for soft to palpation or non-tender Narrative: Suprapubic catheter in place Extremity no clubbing, cyanosis or edema Skin no rashes or lesions noted Neuro CN's II-XII intact bilaterally, moves all extremities and no focal motor deficits Psych cooperative and affect normal Charges/Coding Visit Charges Inpatient E&M: 97611 Subs Hosp L3 08/16/2476 <Electronically signed by Darryn Underwood DO> Cosigner Signature (if applicable): CC: ~ Signed [facility] Work Phone: [phone] Progress note [facility] Medical Records Department [address] [place] [address] Progress Note - Pharmacist Helper 08/16/24 0750 MR#: [id number] Acct: [id number] Name: BARBARA MILANN Rep #:[id number] : 1945 78 From: Darryn Underwood DO PCP: Dr. Kelvin Han MD Status :ADM IN Location: ICU ICU03-1 Assessment & Plan Assessment/Plan (1) Septic shock: PLAN: Plan RECOMMENDATIONS: 1. Continue empiric antimicrobial therapy. Narrow antimicrobials once sensitivities are known. 2. Continue appropriate DVT prophylaxis. 3. Encourage incentive spirometer use and mobilize patient as tolerated. 4. The patient is medically stable for transfer out of the intensive care unit. IMPRESSIONS: 1. Gram-negative septic shock Improved. The patient presented to the hospital with sepsis due to probable urinary tract source ofinfection with acute sepsis related organ dysfunction asevidenced by lactic acidemia and fluid refractory hypotension, requiring vasopressor support. With supportive care, including supplemental fluid hydration and antimicrobial therapy, the patient has been weaned from vasopressor support and remains hemodynamically stable. Plan to continue antibiotics, pending finalized cultures and sensitivities. Urology is followingwithout plans for any form of intervention. 2. Acute on chronic kidney disease Most likely prerenal in etiology in the setting of #1. Continue to monitor urineoutput for now. No current indication for renal replacement therapy. 3. History of prostate cancer/chronic urinary retention with suprapubic catheter/hypertension/depression Complicates care, management, recovery and prognosis. Continue supportive measures as noted above. Continue to hold home antihypertensives for now. This note was generated with Clicknation dictation software. It may contain incorrectwords, spelling, and punctuation that were not noted in checking the note beforesigning. Subjective Subjective The patient was seen and examined at the bedside this morning. Events from the last 24 hours have been reviewed. The patient is currently afebrile, hemodynamically stable and maintaining appropriate oxygen saturations on room air. The patient was weaned off of Levophed completely overnight. The patient is documented to be overall net +4.3 L for the hospitalization. White blood cell count is elevated at 14,000. Hemoglobin and platelet count are stable. Creatinine is mildly improved at 1.8. Objective Data Objective Data The patient's most recent lab work, culture data and imaging studies have all been personally reviewed. Preliminary blood culture on August 14 was positive for gram-negative rods. Urine culture is also demonstrating growth of a gram- negative aziza. Vital Signs: Vital Signs Temp Pulse Resp BP Pulse Ox O2 Del Method O2 Flow Rate 98.3 F 84 18 108/66 94 Room Air 1 08/16/24 04:00 08/16/24 07:00 08/16/24 07:00 08/16/24 07:00 08/16/24 07:00 08/16/24 07:00 08/15/24 14:00 Oxygen Flow Rate (L/min) 1 Oxygen Delivery Method Room Air Weight: 202 lb 6.15 oz Body Mass Index (BMI) 29.9 Intake & Output: Intake and Output for Last 24 Hours 08/14/24 08/15/24 08/16/24 23:59 23:59 23:59 Intake Total 2049 3635.83 / 3654.63 329.90 / 329.90 Output Total 1250 / 1250 475 / 475 Balance 2049 2385.83 / 2404.63 -145.10 / -145.10 Lab / Micro Data Attestation: I reviewed the patient's lab results. 08/16/24 03:22 08/16/24 03:22 Labs: Laboratory Results - last 24 hr 08/15/24 07:35: Differential Comment , Sodium 139, Potassium 4.6, Chloride 110 H, Carbon Dioxide 16.2 L, Anion Gap 13, BUN 32 H, Creatinine 1.98 H, Estim Creat Clear Calc 35.03 L, Est GFR (MDRD) Non-Af 34 L, BUN/Creatinine Ratio 16.1, Glucose 130 H, Lactic Acid 3.5 H*, Calcium 7.4 L 08/16/24 03:22: WBC 14.4 H, RBC 3.19 L, Hgb 9.0 L, Hct 27.1 L, MCV 85.0, MCH 28.2, MCHC 33.2, RDW Std Deviation 47.5 H, RDW Coeff of Jerry 15.4 H, Plt Count 154, MPV 10.8, Immature Gran % (Auto) 4.200 H, Neut % (Auto) 84.0 H, Lymph % (Auto) 3.3 L, Stanley % (Auto) 5.9, Eos % (Auto) 2.2, Baso % (Auto) 0.4, Absolute Neuts (auto) 12.1 H, Absolute Lymphs (auto) 0.47 L, Nucleated RBC % 0, Differential Comment , Toxic Vacuolation 2+, Platelet Estimate ADEQUATE, RBC Morphology NORM C+C, Sodium 137, Potassium 4.1, Chloride 108, Carbon Dioxide 16.2 L, Anion Gap 12, BUN 31 H, Creatinine 1.80 H, Estim Creat Clear Calc 39.08 L, Est GFR (MDRD) Non-Af 39 L, BUN/Creatinine Ratio 17.4, Glucose 89, Calcium 7.7 Micro: Microbiology 08/14/24 21:40 Blood Culture (Wb) - Arm Left Blood Culture - Preliminary 08/14/24 22:06 Blood Culture (Wb) - Anticubital Left Blood Culture - Preliminary 08/14/24 22:06 Urine Catheter - Worthy Urine Culture - Preliminary Gram negative aziza 08/14/24 21:40 Mucosa - Nose SARS-CoV-2, Influenza & RSV (PCR) - Final Physical Exam Const alert, oriented x3 and no apparent distress Constitutional Narrative: Sitting in bedside recliner. General Appearance: cooperative HEENT normocephalic and head/scalp atraumatic Eyes PERRL, EOMs intact bilaterally and conjunctivae normal Neck supple General: trachea midline Chest inspection of chest normal Resp normal respiratory effort Auscultation: Negative for rales, rhonchi or wheezes Cardio regular rate and regular rhythm GI Negative for soft to palpation or non-tender Narrative: Suprapubic catheter in place Extremity no clubbing, cyanosis or edema Skin no rashes or lesions noted Neuro CN's II-XII intact bilaterally, moves all extremities and no focal motor deficits Psych cooperative and affect normal Charges/Coding Visit Charges Inpatient E&M: 07745 Subs Hosp L3 08/16/24 0928 Cosigner Signature (if applicable): CC: ~ Signed [facility]03-12-2025 Progress note Author Juany Souza [facility] Note Date/Time August 15, 2024 3:0 8pm [facility] Medical Records Department [address] [place] [address] Progress Note - Hospitalist 08/15/24 0707 MR#: [id number] Acct: [id number] Name: BARBARA MILAN MONI Rep #:[id number] : 1945 78 From: Juany Souza MD PCP: Dr. 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) Bladder disorder, unspecified (08/14/24) Urinary tract infection, site not specified (08/14/24) Unspecified abdominal pain (08/14/24) Hematuria, unspecified (08/14/24) Severe sepsis with septic shock (08/14/24) Infection and inflammatory reaction due to cystostomy catheter, initial encounter (08/14/24) Personal history of malignant neoplasm of prostate (08/14/24) 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) Subjective Subjective Patient evaluated bedside, already feeling better than he had though still generally unwell, no shortness of breath Objective Data Objective Data Vital Signs: Vital Signs Temp Pulse Resp BP Pulse Ox O2 Del Method O2 Flow Rate 98.6 F 98 23 H 91/50 L 96 Nasal Cannula 3 08/15/24 04:00 08/15/24 07:00 08/15/24 07:00 08/15/24 07:00 08/15/24 07:00 08/15/24 07:00 08/15/24 07:00 Oxygen Flow Rate (L/min) 3 Oxygen Delivery Method Nasal Cannula Weight: 89 kg Body Mass Index (BMI) 29.0 Intake & Output: Intake and Output for Last 24 Hours 08/13/24 08/14/24 08/15/24 23:59 23:59 23:59 Intake Total 2049 1289.25 / 1289.25 Balance 2049 1289.25 / 1289.25 Lab / Micro Data 08/15/24 07:35 08/15/24 07:35 Labs: Laboratory Results - last 24 hr 08/14/24 19:40: WBC 1.9 L, RBC 4.23 L, Hgb 12.0 L, Hct 36.1 L, MCV 85.3, MCH 28.4, MCHC 33.2, RDW Std Deviation 43.3, RDW Coeff of Jerry 14.0, Plt Count 229, MPV 9.6, Immature Gran % (Auto) 1.000 H, Neut % (Auto) 76.8 H, Lymph % (Auto) 15.5 L, Stanley % (Auto) 0.5, Eos % (Auto) 5.7 H, Baso % (Auto) 0.5, Absolute Neuts(auto) 1.5 L, Absolute Lymphs (auto) 0.30 L, Nucleated RBC % 0, Differential Comment SEE COMMENT, Platelet Estimate ADEQUATE, RBC Morphology NORM C+C, Anisocytosis RARE, Sodium 139, Potassium 4.5, Chloride 105, Carbon Dioxide 17.4 L, Anion Gap 17 H, BUN 31 H, Creatinine 1.69 H, Est GFR (MDRD) Non-Af 42 L, BUN/Creatinine Ratio 18.2, Glucose 139 H, Hemoglobin A1c 6.3, Calcium 9.2, TotalBilirubin 0.25, AST 24, ALT 16, Alkaline Phosphatase 85, Total Protein 7.2, Albumin 3.7, Globulin 3.4, Albumin/Globulin Ratio 1.1, Vitamin B12 1133 H, TSH 3.660 08/14/24 19:42: Serum Folate 18.20 08/14/24 21:30: Lactic Acid 4.2 H* 08/14/24 21:40: PT 15.5 H, INR 1.2, APTT 26.3 08/14/24 22:06: Urine Color Red, Urine Clarity Cloudy, Urine pH 8.0, Ur SpecificGravity 1.010, Urine Protein 100 H, Urine Glucose (UA) Normal, Urine Ketones 5 H, Urine Occult Blood 250 H, Urine Nitrite Negative, Urine Bilirubin Negative, Urine Urobilinogen Normal, Ur Leukocyte Esterase 500 H, Urine RBC > 100 SEEN, Urine WBC 50-100 SEEN, Ur Squamous Epith Cells 5-10 SEEN, Amorphous Sediment 2+ PHOS, Urine Bacteria RARE, Urine Mucus 0 SEEN 08/15/24 02:55: PSA Screen < 0.02 L Micro: Microbiology 08/14/24 21:40 Mucosa - Nose SARS-CoV-2, Influenza & RSV (PCR) - Final Radiography Diagnostic Testing: Radiology Impression Abdomen/Pelvis CT 08/14/24 21:00 IMPRESSION: 1. Mild/moderate right hydroureteronephrosis without an obstructing calculus. Underlying obstructive bladder lesion not excluded. Recommend further assessment with nonemergent CT urogram and/or direct visualization. 2. Underdistended bladder with diffuse wall thickening and mild perivesicular fat stranding. Correlate for possible cystitis. Suprapubic catheter in place. 3. Additional chronic findings as above. One or more dose reduction techniques were used (e.g., Automated exposure control, adjustment of the mA and/or kV according to patient size, use of iterative reconstruction technique). Reading Location: [facility] Chest X-Ray 08/14/24 21:29 IMPRESSION: No focal airspace abnormality. Reading Location: [facility] Physical Exam Narrative General: Alert, no apparent distress HEENT: Atraumatic, normocephalic Eyes: Anicteric, normal conjunctiva, extraocular movements grossly intact Neck: Supple Respiratory: Normal respiratory effort, no significant rhonchi or wheezes Cardiovascular: Regular rate GI: Soft, nontender, nondistended Extremities: No edema Musculoskeletal: Moving all extremities Neuro: No overt focal neurological deficits Skin: No rashes appreciated Psych: Cooperative Assessment & Plan Assessment/Plan (1) Sepsis: QUALIFIERS: Acute renal failure type: unspecified Sepsis acute organ dysfunction status: with acute organ dysfunction Sepsis type: sepsis due to unspecified organism Severe sepsis acute organ dysfunction type: acute renalfailure Severe sepsis shock status: with septic shock Qualified Code(s): A41.9- Sepsis, unspecified organism; R65.21 - Severe sepsis with septic shock; N17.9 - Acute kidney failure, unspecified (2) UTI (urinary tract infection) due to urinary indwelling catheter: QUALIFIERS: Encounter type: initial encounter Indwelling urinary catheter type: cystostomy catheter Qualified Code(s): T83.510A - Infection and inflammatory reaction due to cystostomy catheter, initial encounter; N39.0 - Urinary tract infection, site not specified PLAN: Plan # Septic shock suspect secondary to UTI in the setting of chronic suprapubic catheter -Patient febrile in the ED with temp of 102.9, tachycardic with heart rate in 140s, blood pressure in the ED down to 75/50 with a MAP of 58 with respiratory rate of 38, patient's O2 sat also decreased necessitating 2 L of nasal cannula in place, patient with bicarb of 17.4 in the ED with gap of 17, lactic acid of 4.2 and increasing creatinine up to 1.69 with baseline seemingly closer to 1.3 -UA suggestive of UTI -CT scan also suggestive of possible cystitis -Blood and urine cultures ordered -Ucx +, organism and sensitivity data pending, blood cultures 2 out of 2 also positive for gram-negative rods -Patient started on Zosyn -Patient received 3 L IV fluid and has remained hypotensive so norepinephrine ordered -Patient presently admitted in the ICU, automatic pinsetter mechanic consulted # Creatinine elevation from baseline in setting of mild to moderate right hydroureteronephrosis -Patient's creatinine 1.69, baseline seems closer to 1.3 -CT scan in the ED showed mild/moderate right hydroureteronephrosis without obstructing calculus, underlying obstructive bladder lesion not excluded and it was recommended further assessment with nonemergent CT urogram and/or direct visualization -Patient has previously seen Dr. Gilliland, Dr. Gilliland consulted but it is suspected this is chronic and there is no current plan for intervention, patientto be monitored # History of prostate cancer -Status post prostate removal and radiation therapy through [facility] with subsequent bladder neck contracture and ultimately suprapubic catheter -PSA undetectable #Hypertension -Patient with septic shock, hold amlodipine, lisinopril, terazosin and #DVT ppx: SCDs Juany Souza MD Charges/Coding Visit Charges Inpatient E&M: 92590 Subs Hosp L2 08/15/24 1508 <Electronically signed by Juany Souza MD> Cosigner Signature (if applicable): CC: ~ Signed [facility] Work Phone: 1(403) 937-125003-12-2025 Progress note [facility] Medical Records Department [address] [place] [address] Progress Note - Hospitalist 08/15/24706 MR#: [id number] Acct: [id number] Name: BARBARA MILAN MONI Rep #:[id number] : 1945 78 From: Juany Souza MD PCP: Dr. 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) Bladder disorder, unspecified (08/14/24) Urinary tract infection, site not specified (08/14/24) Unspecified abdominal pain (08/14/24) Hematuria, unspecified (08/14/24) Severe sepsis with septic shock (08/14/24) Infection and inflammatory reaction due to cystostomy catheter, initial encounter (08/14/24) Personal history of malignant neoplasm of prostate (08/14/24) 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) Subjective Subjective Patient evaluated bedside, already feeling better than he had though still generally unwell, no shortness of breath Objective Data Objective Data Vital Signs: Vital Signs Temp Pulse Resp BP Pulse Ox O2 Del Method O2 Flow Rate 98.6 F 98 23 H 91/50 L 96 Nasal Cannula 3 08/15/24 04:00 08/15/24 07:00 08/15/24 07:00 08/15/24 07:00 08/15/24 07:00 08/15/24 07:00 08/15/24 07:00 Oxygen Flow Rate (L/min) 3 Oxygen Delivery Method Nasal Cannula Weight: 89 kg Body Mass Index (BMI) 29.0 Intake & Output: Intake and Output for Last 24 Hours 08/13/24 08/14/24 08/15/24 23:59 23:59 23:59 Intake Total 2049 1289.25 / 1289.25 Balance 2049 1289.25 / 1289.25 Lab / Micro Data 08/15/24 07:35 08/15/24 07:35 Labs: Laboratory Results - last 24 hr 08/14/24 19:40: WBC 1.9 L, RBC 4.23 L, Hgb 12.0 L, Hct 36.1 L, MCV 85.3, MCH 28.4, MCHC 33.2, RDW Std Deviation 43.3, RDW Coeff of Jerry 14.0, Plt Count 229, MPV 9.6, Immature Gran % (Auto) 1.000 H, Neut % (Auto) 76.8 H, Lymph % (Auto) 15.5 L, Stanley % (Auto) 0.5, Eos % (Auto) 5.7 H, Baso % (Auto) 0.5,Absolute Neuts(auto) 1.5 L, Absolute Lymphs (auto) 0.30 L, Nucleated RBC % 0, Differential Comment SEE COMMENT, Platelet Estimate ADEQUATE, RBC Morphology NORM C+C, Anisocytosis RARE, Sodium 139, Potassium 4.5, Chloride 105, Carbon Dioxide 17.4 L, Anion Gap 17 H, BUN 31 H, Creatinine 1.69 H, Est GFR (MDRD) Non- Af 42 L, BUN/Creatinine Ratio 18.2, Glucose 139 H, Hemoglobin A1c 6.3, Calcium 9.2, TotalBilirubin 0.25, AST 24, ALT 16, Alkaline Phosphatase 85, Total Protein 7.2, Albumin 3.7, Globulin 3.4, Albumin/Globulin Ratio 1.1, Vitamin B12 1133 H, TSH 3.660 08/14/24 19:42: Serum Folate 18.20 08/14/24 21:30: Lactic Acid 4.2 H* 08/14/24 21:40: PT 15.5 H, INR 1.2, APTT 26.3 08/14/24 22:06: Urine Color Red, Urine Clarity Cloudy, Urine pH 8.0, Ur SpecificGravity 1.010, Urine Protein 100 H, Urine Glucose (UA) Normal, Urine Ketones 5 H, Urine Occult Blood 250 H, Urine Nitrite Negative, Urine Bilirubin Negative, Urine Urobilinogen Normal, Ur Leukocyte Esterase 500 H, UrineRBC > 100 SEEN, Urine WBC 50-100 SEEN, Ur Squamous Epith Cells 5-10 SEEN, Amorphous Sediment 2+ PHOS, Urine Bacteria RARE, Urine Mucus 0 SEEN 08/15/24 02:55: PSA Screen < 0.02 L Micro: Microbiology 08/14/24 21:40 Mucosa - Nose SARS-CoV-2, Influenza & RSV (PCR) - Final Radiography Diagnostic Testing: Radiology Impression Abdomen/Pelvis CT 08/14/24 21:00 IMPRESSION: 1. Mild/moderate right hydroureteronephrosis without an obstructing calculus. Underlying obstructive bladder lesion not excluded. Recommend further assessment with nonemergent CT urogram and/or direct visualization. 2. Underdistended bladder with diffuse wall thickening and mild perivesicular fat stranding. Correlate for possible cystitis. Suprapubic catheter in place. 3. Additional chronic findings as above. One or more dose reduction techniques were used (e.g., Automated exposure control, adjustment of the mA and/or kV according to patient size, use of iterative reconstruction technique). Reading Location: [facility] Chest X-Ray 08/14/24 21:29 IMPRESSION: No focal airspace abnormality. Reading Location: [facility] Physical Exam Narrative General: Alert, no apparent distress HEENT: Atraumatic, normocephalic Eyes: Anicteric, normal conjunctiva, extraocular movements grossly intact Neck: Supple Respiratory: Normal respiratory effort, no significant rhonchi or wheezes Cardiovascular: Regular rate GI: Soft, nontender, nondistended Extremities: No edema Musculoskeletal: Moving all extremities Neuro: No overt focal neurological deficits Skin: No rashes appreciated Psych: Cooperative Assessment & Plan Assessment/Plan (1) Sepsis: QUALIFIERS: Acute renal failure type: unspecified Sepsis acute organ dysfunction status: with acuteorgan dysfunction Sepsis type: sepsis due to unspecified organism Severe sepsis acute organ dysfunction type: acute renalfailure Severe sepsis shock status: with septic shock Qualified Code(s): A41.9- Sepsis, unspecified organism; R65.21 - Severe sepsis with septic shock; N17.9 - Acute kidney failure, unspecified (2) UTI (urinary tract infection) due to urinary indwelling catheter: QUALIFIERS: Encounter type: initial encounter Indwelling urinary catheter type: cystostomy catheterQualified Code(s): T83.510A - Infection and inflammatory reaction due to cystostomy catheter, initial encounter; N39.0 - Urinary tract infection, site not specified PLAN: Plan # Septic shock suspect secondary to UTI in the setting of chronic suprapubic catheter -Patient febrile in the ED with temp of 102.9, tachycardic with heart rate in 140s, blood pressure in the ED down to 75/50 with a MAP of 58 with respiratory rate of 38, patient's O2 sat also decreased necessitating 2 L of nasal cannula in place, patient with bicarb of 17.4 in the ED with gap of 17,lactic acid of 4.2 and increasing creatinine up to 1.69 with baseline seemingly closer to 1.3 -UA suggestive of UTI -CT scan also suggestive of possible cystitis -Blood and urine cultures ordered -Ucx +, organism and sensitivity data pending, blood cultures 2 out of 2 also positive for gram-negative rods -Patient started on Zosyn -Patient received 3 L IV fluid and has remained hypotensive so norepinephrine ordered -Patient presently admitted in the ICU, automatic pinsetter mechanic consulted # Creatinine elevation from baseline in setting of mild to moderate right hydroureteronephrosis -Patient's creatinine 1.69, baseline seems closer to 1.3 -CT scan in the ED showed mild/moderate right hydroureteronephrosis without obstructing calculus, underlying obstructive bladder lesion not excluded and it was recommended further assessment with nonemergent CT urogram and/or direct visualization -Patient has previously seen Dr. Gilliland, Dr. Gilliland consulted but it is suspected this is chronic and there is no current plan for intervention, patientto be monitored # History of prostate cancer -Status post prostate removal and radiation therapy through [facility] with subsequent bladder neck contracture and ultimately suprapubic catheter -PSA undetectable #Hypertension -Patient with septic shock, hold amlodipine, lisinopril, terazosin and #DVT ppx: SCDs Juany Souza MD Charges/Coding Visit Charges Inpatient E&M: 69026 Subs Hosp L2 08/15/24 1508 Cosigner Signature (if applicable): CC: ~ Signed [facility]03-12-2025 Procedure note [facility] Medical Records Department [address] [place] [id number] Operative Report 08/15/24 1428 MR#: [id number] Acct: [id number] Name: BARBARA MILAN MONI Rep #:[id number] : 1945 78 From: Tiffanie Bello PCP: Dr. Kelvin Han MD Status :ADM IN Location: ICU ICU03- Problems Associated Problem List Diagnoses (1) Septic shock: (2) Acute hypotension: Multi Select Codes Radiology Radiology US Procedures: 96324 Insert PICC w/o port, w/US guidance Operative Report (Standard) Operative Information Date of Procedure: 08/15/24 Pre-Operative Diagnosis: Septic shock requiring vasopressor therapy Post-Operative Diagnosis: Septic shock requiring vasopressor therapy Surgery/Procedure Performed: Double-lumen PICC insertion pile fabric knitter: No Type of Anesthesia: Local Procedure Start Time: 10:00 Procedure Stop Time: 12:00 Select all DRAINS/GRAFTS/IMPLANTS that apply: None Estimated Blood Loss: 0 Specimen collected: No Description of surgery: Patient identity was verified with two patient identifiers. Informed consent wasobtained and time-out was completed. Hands were sanitized. The patient was positioned supine with left arm at 90 degrees. The patient's upper arm vasculature was assessed using ultrasound. Patency of the left basilic vein was confirmed, and the vein was externally marked. An external measurement was obtained of 48 cm.External leads were applied to the patient's right upper chest and laterally and inferior of the umbilicus on the mid axillary line. Cap, mask, and prep gloves were donned. The underdrape was placed under the patient's arm. The site was prepped with chlorhexidine, and tourniquet was loosely applied. Prep gloves were discarded, and hands were sanitized. The sterile kit was opened with additional supplies dropped in. Sterile gown and gloves were donned, and the patient was draped. The sterile kitwas assembled withneedle, introducer, needless connectors, and each catheter lumen flushed with sterile normal saline. The marked site of insertion was anesthetized with 1% lidocaine from the kit. Patient tolerated well. The left basilic vein was thenaccessed using ultrasound guidance and guidewirewas inserted to safety james. The tourniquet was released. The access needle was removed, while securing the guidewire in place. The introducer sheath and dilator was slid over the guidewire. Patient tolerated the insertion well. The dilator was removed and occlusion cap applied to the introducer. The catheter was trimmed to a length of48 cm. Using 3CG guidance, the catheter was then inserted through the introducer sheath, slowly. There was no resistance on insertion. The catheter followed the expected course of the vessel using 3CG tracking. Maximal p-wave without deflection, confirming placem ent in the cavoatrial junction, was obtained at an insertion length of 48 cm, with external length at the hub of thecatheter. The introducer sheath was retracted and peeled away, incrementally, whilekeeping the catheter secured. The stylet was removed. A flushed needleless connector was attached to each catheter lumen. Aspiration of each lumen was performed to remove any air and confirm blood return. Blood return wasverified and each lumen was flushed with 10 ml of sterile normal saline in a pulsatile fashion. Then each lumen was clamped prior to disconnecting the flush syringe. Total sterile flushes used for the insertion was (4) 10 ml syringes, (2) from the kit. Finally, the insertion site was cleaned with chlorhexidine, and the catheter was secured using a StatLock. The site was covered with a Tegaderm CHG Dressing and disinfecting caps were applied. Baseline arm circumference was obtained at the insertion site and measured 32 cm. The patientwas provided with a patient education handout on PICC line care of infection prevention, heavy lifting restriction, maintaining mobility, and watching for any signs of infection. Primary RN aware that the PICC line is ready for use. Procedure was proctored by [employer] services sales representative. A first attempt for PICC insertionwas the right brachial vein. It was assessed and accessed; however, I was unable to thread the guidewire. The procedure was abo rted. Surgical Findings: N/A Complications Complications: No 08/15/24 1501 Cosigner Signature (if applicable): CC: YEHUDA Gorman; Dr. Aston Mosley MD; Dr. Mina Tracy MD; Dr. Balwinder Butler MD; Dr. Kelvin Han MD; Dr. Rajinder Mishra MD; Dr. Rajinder Acosta DO; Dr. Darryn Underwood DO; Dr. Jared Camacho MD; Dr. Jt Salinas MD; Dr. Abraham Rivera MD; Dr. Devon Tavera MD; Dr. Zhao Gilliland MD; Dr. Reuben Bass MD; Dr. Latasha Rodriguez MD; Dr. Bonnie Flood MD; Dr. Jeffery MD; Dr.Pavan Georgi MD; Dr. Elias Booth MD; Dr. Reuben Raya MD; Dr. Sobeida Thompson MD; Dr. Audelia Irizarry MD; Dr. Vicente Ordonez DO; Dr. Holger Marshall DO; Dr. Wilfredo Doran MD; Dr. Alcides Nieto MD; Dr. Darlene Lamb MD~ Signed [facility]03-12-2025 Consult note Author Darryn Underwood [facility] Note Date/Time August 15, 2024 9:2 4am [facility] Medical Records Department [address] [place] [address] Consultation - Pharmacist Helper 08/15/24 0804 MR#: [id number] Acct: [id number] Name: BARBARA MILAN MONI Rep #:[id number] : 1945 78 From: Darryn Underwood DO PCP: Dr. Kelvin Han MD Status :ADM IN Location: ICU ICU03- Assessment & Plan Assessment/Plan (1) Septic shock: PLAN: Plan RECOMMENDATIONS: 1. Continue empiric antimicrobial therapy. 2. Continue Levophed to maintain a mean arterial pressure at or above 65 mmHg. 3. Urology consultation is pending. 4. Start scheduled midodrine as ordered. 5. Initiate appropriate DVT prophylaxis. IMPRESSIONS: 1. Septic shock The patient presented to the hospital with sepsis due to probable urinary tract source of infection with acute sepsis related organ dysfunction as evidenced by lactic acidemia and fluid refractory hypotension, requiring vasopressor support. The patient will be continued on Levophed to maintain a mean arterial pressure at or above 65 mmHg. There are tentative plans for PICC line placement this morning. In addition, the patient will be started on scheduled midodrine. Empiric antimicrobials will be continued, pending urine culture results. Urology has been consulted to evaluate the patient, in light of the hydroureteronephrosis noted on CT imaging. 2. Acute on chronic kidney disease Most likely prerenal in etiology in the setting of #1. The patient has receivedvolume expansion and will be continued on Levophed to maintain hemodynamic stability. Continue to monitor urine output for now. No current indication forrenal replacement therapy. 3. History of prostate cancer/chronic urinary retention with suprapubic catheter/hypertension/depression Complicates care, management, recovery and prognosis. Continue supportive measures as noted above. Continue to hold home antihypertensives for now. If there are no plans from a urologic perspective to proceed with any form of intervention, the patient's diet can be advanced. TIME: 35 minutes of critical care time, independent of procedures, was spent addressing the patient's septic shock, acute on chronic kidney disease, review of all data and collaboration with the care team. HPI Consult Data Date of Consult: 08/15/24 HPI Narrative Reason for Consultation: Sepsis HPI Narrative: The patient is a 78-year-old male, with a history as outlined below, who presented to the emergency department on August 14 with bladder spasms, hematuriaand right flank pain. The patient has a complex urologic history including radical prostatectomy and radiation secondary to prostate cancer with subsequentchronic radiation cystitis and retention leading to suprapubic catheter placement. He is currently followed by Dr. Gilliland of urology. On presentation to the emergency department, the patient was noted to have a fever 102.9 ?F. He was tachycardic, tachypneic and hypotensive. Chemistry profile was notable for a creatinine of 1.69 with a lactate of 4.2. Urinalysis was positive for leukocyte esterase and rare urine bacteria. CT abdomen/pelvis demonstrated mild to moderate right hydroureteronephrosis. The patient was ordered to receive sepsis related IV fluid resuscitation. He was started on antimicrobial therapy. Unfortunately, the patient's hypotensive with fluid refractory and the patient was ultimately placed on Levophed to maintain hemodynamic stability. The patient was subsequently admitted to the medical intensive care unit for further management. [facility] Medical History Hearing loss, left Hearing loss, right Anxiety Depression Chronic indwelling Worthy catheter TIA (transient ischemic attack) Chronic radiation cystitis Worthy catheter in place Wears glasses Cancer Arthritis Non-smoker History of pain when walking History of edema Hypertension Prostate cancer Blood in urine Home Medications ?Medication ?Instructions ?Recorded ?Last Taken ?Type amlodipine 10 mg tablet 10 mg PO DAILY BLOOD PRESSUR E 12/08/18 01/13/24 History lisinopril 40 mg tablet 40 mg PO BID BLOOD PRESSURE 12/08/18 01/13/24 History terazosin 5 mg capsule 5 mg PO QPM BLOOD PRESSURE 0 12/08/18 01/13/24 History multivit,Ca,min-iron 8 mg-folic 1 tab PO DAILY SUPPLEM ENT 11/04/23 01/13/24 History acid 200 mcg-lycopene 600 mcg tablet (A Thru Z [employer] Ultimate) Allergy/AdvReac Type Severity Reaction Status Date / Time losartan Allergy Mild Rash Verified 08/14/24 19:22 Sulfa (Sulfonamide Allergy Hives Verified 08/14/24 19:22 Antibiotics) atenolol AdvReac Mild WEAKNESS Verified 08/14/24 19:22 hydrochlorothiazide AdvReac Mild UNKNOWN Verified 08/14/24 19:22 indomethacin (From Indocin) AdvReac Mild GI upset Verified 08/14/24 19:22 Surgical History History of left knee replacement Hx of radical prostatectomy Hx of cystoscopy Hx of colonoscopy Social History household members: spouse housing: house Smoking Status: Never smoker ROS ROS Narrative 10 systems were reviewed with pertinent positives as noted in the HPI above. Physical Exam Const alert, oriented x3 and no apparent distress General Appearance: cooperative HEENT normocephalic and head/scalp atraumatic Eyes PERRL, EOMs intact bilaterally and conjunctivae normal Neck supple General: trachea midline Chest inspection of chest normal Resp normal respiratory effort Auscultation: Negative for rales, rhonchi or wheezes Cardio regular rate and regular rhythm GI Negative for soft to palpation or non-tender Narrative: Suprapubic catheter in place Extremity no clubbing, cyanosis or edema Skin no rashes or lesions noted Neuro CN's II-XII intact bilaterally, moves all extremities and no focal motor deficits Psych cooperative and affect normal Lab / Micro Data 08/15/24 07:35 08/15/24 07:35 Labs: Laboratory Results - last 24 hr 08/14/24 19:40: WBC 1.9 L, RBC 4.23 L, Hgb 12.0 L, Hct 36.1 L, MCV 85.3, MCH 28.4, MCHC 33.2, RDW Std Deviation 43.3, RDW Coeff of Jerry 14.0, Plt Count 229, MPV 9.6, Immature Gran % (Auto) 1.000 H, Neut % (Auto) 76.8 H, Lymph % (Auto) 15.5 L, Stanley % (Auto) 0.5, Eos % (Auto) 5.7 H, Baso % (Auto) 0.5, Absolute Neuts(auto) 1.5 L, Absolute Lymphs (auto) 0.30 L, Nucleated RBC % 0, Differential Comment SEE COMMENT, Platelet Estimate ADEQUATE, RBC Morphology NORM C+C, Anisocytosis RARE, Sodium 139, Potassium 4.5, Chloride 105, Carbon Dioxide 17.4 L, Anion Gap 17 H, BUN 31 H, Creatinine 1.69 H, Est GFR (MDRD) Non-Af 42 L, BUN/Creatinine Ratio 18.2, Glucose 139 H, Hemoglobin A1c 6.3, Calcium 9.2, TotalBilirubin 0.25, AST 24, ALT 16, Alkaline Phosphatase 85, Total Protein 7.2, Albumin 3.7, Globulin 3.4, Albumin/Globulin Ratio 1.1, Vitamin B12 1133 H, TSH 3.660 08/14/24 19:42: Serum Folate 18.20 08/14/24 21:30: Lactic Acid 4.2 H* 08/14/24 21:40: PT 15.5 H, INR 1.2, APTT 26.3 08/14/24 22:06: Urine Color Red, Urine Clarity Cloudy, Urine pH 8.0, Ur SpecificGravity 1.010, Urine Protein 100 H, Urine Glucose (UA) Normal, Urine Ketones 5 H, Urine Occult Blood 250 H, Urine Nitrite Negative, Urine Bilirubin Negative, Urine Urobilinogen Normal, Ur Leukocyte Esterase 500 H, Urine RBC > 100 SEEN, Urine WBC 50-100 SEEN, Ur Squamous Epith Cells 5-10 SEEN, Amorphous Sediment 2+ PHOS, Urine Bacteria RARE, Urine Mucus 0 SEEN 08/15/24 02:55: PSA Screen < 0.02 L 08/15/24 07:35: WBC 13.0 H, RBC 3.18 L, Hgb 9.1 L, Hct 27.5 L, MCV 86.5, MCH 28.6, MCHC 33.1, RDW Std Deviation 46.3 H, RDW Coeff of Jerry 14.6, Plt Count 156,MPV 10.0, Immature Gran % (Auto) 1.300 H, Neut % (Auto) 93.8 H, Lymph % (Auto) 1.8 L, Stanley % (Auto) 2.8, Eos % (Auto) 0.1, Baso % (Auto) 0.2, Absolute Neuts (auto) 12.2 H, Absolute Lymphs (auto) 0.24 L, Nucleated RBC % 0 Micro: Microbiology 08/14/24 21:40 Mucosa - Nose SARS-CoV-2, Influenza & RSV (PCR) - Final Imaging Radiology Impression Abdomen/Pelvis CT 08/14/24 21:00 IMPRESSION: 1. Mild/moderate right hydroureteronephrosis without an obstructing calculus. Underlying obstructive bladder lesion not excluded. Recommend further assessment with nonemergent CT urogram and/or direct visualization. 2. Underdistended bladder with diffuse wall thickening and mild perivesicular fat stranding. Correlate for possible cystitis. Suprapubic catheter in place. 3. Additional chronic findings as above. One or more dose reduction techniques were used (e.g., Automated exposure control, adjustment of the mA and/or kV according to patient size, use of iterative reconstruction technique). [facility] X-Ray 08/14/24 21:29 IMPRESSION: No focal airspace abnormality. Reading Location: [facility] Charges/Coding Procedures Hospitalists Procedures: 43918 Critical Care 1st Hr 08/15/24 0924 <Electronically signed by Darryn Underwood DO> Cosigner Signature (if applicable): CC: Dr. Kelvin Han MD~ Signed [facility] Work Phone: [phone]) 420-653903-12-2025 Consult note Author Zhao Gilliland [facility] Note Date/Time August 15, 2024 8:4 9am [facility] Medical Records Department [address] [place] [address] Consultation - Urology 08/15/24 0847 MR#: [id number] Acct: [id number] Name: BARBARA MILAN MONI Rep #:[id number] : 1945 78 From: Zhao Gilliland MD PCP: Dr. Kelvin Han MD Status :ADM IN Location: ICU ICU03-1 HPI Consult Data Date of Consult: 08/15/24 HPI Narrative Reason for Consultation: UTI sepsis hydronephrosis HPI Narrative: BARBARA MARIANA, is a 78 M who presents to the hospital with a urinary tract infection and sepsis is in the intensive care unit he had elevated white blood count, CAT scan was done this demonstrates hydronephrosis of the right side withlow bit of hydroureter dissection chronic finding prior CAT scan showed the samething just maybe not as dilated at this time but this appears to be chronic he has a suprapubic tube in place. For now I do not plan to do any intervention for the hydronephrosis we will just watch this. And see how he does. He does has a suprapubic catheter this was just changed my office not that long ago I donot think need to be changed currently patient understands that with a suprapubic catheter is a higher risk for having UTIs etc. but given the fact that he had severe leakage of urine and poor bladder control and no control of his bladder after radical prostatectomy done at the [facility] and after radiation done at the [facility] he is suffered with significant incontinence and is ended up with a suprapubic catheter which we changed every month so for now disconnect continue to change the catheter every month as planned I will watch him and see what happens but do not plan to do any intervention for the hydronephrosis since it appears to be chronic. [facility] Medical History Hearing loss, left Hearing loss, right Anxiety Depression Chronic indwelling Worthy catheter TIA (transient ischemic attack) Chronic radiation cystitis Worthy catheter in place Wears glasses Cancer Arthritis Non-smoker History of pain when walking History of edema Hypertension Prostate cancer Blood in urine Home Medications ?Medication ?Instructions ?Recorded ?Last Taken ?Type amlodipine 10 mg tablet 10 mg PO DAILY BLOOD PRESSUR E 12/08/18 01/13/24 History lisinopril 40 mg tablet 40 mg PO BID BLOOD PRESSURE 12/08/18 01/13/24 History terazosin 5 mg capsule 5 mg PO QPM BLOOD PRESSURE 0 12/08/18 01/13/24 History multivit,Ca,min-iron 8 mg-folic 1 tab PO DAILY SUPPLEM ENT 11/04/23 01/13/24 History acid 200 mcg-lycopene 600 mcg tablet (A Thru Z [employer]'s Ultimate) Allergy/AdvReac Type Severity Reaction Status Date / Time losartan Allergy Mild Rash Verified 08/14/24 19:22 Sulfa (Sulfonamide Allergy Hives Verified 08/14/24 19:22 Antibiotics) atenolol AdvReac Mild WEAKNESS Verified 08/14/24 19:22 hydrochlorothiazide AdvReac Mild UNKNOWN Verified 08/14/24 19:22 indomethacin (From Indocin) AdvReac Mild GI upset Verified 08/14/24 19:22 Surgical History History of left knee replacement Hx of radical prostatectomy Hx of cystoscopy Hx of colonoscopy Social History household members: spouse housing: house Smoking Status: Never smoker Lab / Micro Data 08/15/24 07:35 08/15/24 07:35 Labs: Laboratory Results - last 24 hr 08/14/24 19:40: WBC 1.9 L, RBC 4.23 L, Hgb 12.0 L, Hct 36.1 L, MCV 85.3, MCH 28.4, MCHC 33.2, RDW Std Deviation 43.3, RDW Coeff of Ejrry 14.0, Plt Count 229, MPV 9.6, Immature Gran % (Auto) 1.000 H, Neut % (Auto) 76.8 H, Lymph % (Auto) 15.5 L, Stanley % (Auto) 0.5, Eos % (Auto) 5.7 H, Baso % (Auto) 0.5, Absolute Neuts(auto) 1.5 L, Absolute Lymphs (auto) 0.30 L, Nucleated RBC % 0, Differential Comment SEE COMMENT, Platelet Estimate ADEQUATE, RBC Morphology NORM C+C, Anisocytosis RARE, Sodium 139, Potassium 4.5, Chloride 105, Carbon Dioxide 17.4 L, Anion Gap 17 H, BUN 31 H, Creatinine 1.69 H, Est GFR (MDRD) Non-Af 42 L, BUN/Creatinine Ratio 18.2, Glucose 139 H, Hemoglobin A1c 6.3, Calcium 9.2, TotalBilirubin 0.25, AST 24, ALT 16, Alkaline Phosphatase 85, Total Protein 7.2, Albumin 3.7, Globulin 3.4, Albumin/Globulin Ratio 1.1, Vitamin B12 1133 H, TSH 3.660 08/14/24 19:42: Serum Folate 18.20 08/14/24 21:30: Lactic Acid 4.2 H* 08/14/24 21:40: PT 15.5 H, INR 1.2, APTT 26.3 08/14/24 22:06: Urine Color Red, Urine Clarity Cloudy, Urine pH 8.0, Ur SpecificGravity 1.010, Urine Protein 100 H, Urine Glucose (UA) Normal, Urine Ketones 5 H, Urine Occult Blood 250 H, Urine Nitrite Negative, Urine Bilirubin Negative, Urine Urobilinogen Normal, Ur Leukocyte Esterase 500 H, Urine RBC > 100 SEEN, Urine WBC 50-100 SEEN, Ur Squamous Epith Cells 5-10 SEEN, Amorphous Sediment 2+ PHOS, Urine Bacteria RARE, Urine Mucus 0 SEEN 08/15/24 02:55: PSA Screen < 0.02 L 08/15/24 07:35: WBC 13.0 H, RBC 3.18 L, Hgb 9.1 L, Hct 27.5 L, MCV 86.5, MCH 28.6, MCHC 33.1, RDW Std Deviation 46.3 H, RDW Coeff of Jerry 14.6, Plt Count 156,MPV 10.0, Immature Gran % (Auto) 1.300 H, Neut % (Auto) 93.8 H, Lymph % (Auto) 1.8 L, Stanley % (Auto) 2.8, Eos % (Auto) 0.1, Baso % (Auto) 0.2, Absolute Neuts (auto) 12.2 H, Absolute Lymphs (auto) 0.24 L, Nucleated RBC % 0, Differential Comment , Sodium 139, Potassium 4.6, Chloride 110 H, Carbon Dioxide 16.2 L, Anion Gap 13, BUN 32 H, Creatinine 1.98 H, Estim Creat Clear Calc 35.03 L, Est GFR (MDRD) Non-Af 34 L, BUN/Creatinine Ratio 16.1, Glucose 130 H, Lactic Acid 3.5 H*, Calcium 7.4 L Micro: Microbiology 08/14/24 21:40 Mucosa - Nose SARS-CoV-2, Influenza & RSV (PCR) - Final Imaging Radiology Impression Abdomen/Pelvis CT 08/14/24 21:00 IMPRESSION: 1. Mild/moderate right hydroureteronephrosis without an obstructing calculus. Underlying obstructive bladder lesion not excluded. Recommend further assessment with nonemergent CT urogram and/or direct visualization. 2. Underdistended bladder with diffuse wall thickening and mild perivesicular fat stranding. Correlate for possible cystitis. Suprapubic catheter in place. 3. Additional chronic findings as above. One or more dose reduction techniques were used (e.g., Automated exposure control, adjustment of the mA and/or kV according to patient size, use of iterative reconstruction technique). Reading Location: [facility] Chest X-Ray 08/14/24 21:29 IMPRESSION: No focal airspace abnormality. Reading Location: [facility] 08/15/24 0849 <Electronically signed by Zhao Gilliland MD> Cosigner Signature (if applicable): CC: Dr. Kelvin Han MD~ Signed [facility] Work Phone: [phone] [phone] Consult note [facility] Medical Records Department [address] [place] [address] Consultation - Pharmacist Helper 08/15/24 0804 MR#: [id number] Acct: [id number] Name: BARBARA MILAN MONI Rep #:[id number] : 1945 78 From: Darryn Underwood DO PCP: Dr. Kelvin Han MD Status :ADM IN Location: ICU ICU03-1 Assessment & Plan Assessment/Plan (1) Septic shock: PLAN: Plan RECOMMENDATIONS: 1. Continue empiric antimicrobial therapy. 2. Continue Levophed to maintain a mean arterial pressure at or above 65 mmHg. 3. Urology consultation is pending. 4. Start scheduled midodrine as ordered. 5. Initiate appropriate DVT prophylaxis. IMPRESSIONS: 1. Septic shock The patient presented to the hospital with sepsis due to probable urinary tract source of infectionwith acute sepsis related organ dysfunction as evidenced by lactic acidemia and fluid refractory hypotension, requiring vasopressor support. The patient will be continued on Levophed to maintain a mean arterial pressure at or above 65 mmHg. There are tentative plans for PICC line placement this morn [facility]. In addition, the patient will be started on scheduled midodrine. Empiric antimicrobials will be continued, pending urine culture results. Urology has been consulted to evaluate the patient, in light of the hydroureteronephrosis noted on CT imaging. 2. Acute on chronic kidney disease Most likely prerenal in etiology in the setting of #1. The patient has receivedvolume expansion andwill be continued on Levophed to maintain hemodynamic stability. Continue to monitor urine output for now. No current indication forrenal replacement therapy. 3. History of prostate cancer/chronic urinary retention with suprapubic catheter/hypertension/depression Complicates care, management, recovery and prognosis. Continue supportive measures as noted above. Continue to hold home antihypertensives for now. If there are no plans from a urologic perspective to proceed with any form of intervention, the patient's diet can be advanced. TIME: 35 minutes of critical care time, independent of procedures, was spent addressing the patient's septic shock, acute on chronic kidney disease, review of all data and collaboration with the care team. HPI Consult Data Date of Consult: 08/15/24 HPI Narrative Reason for Consultation: Sepsis HPI Narrative: The patient is a 78-year-old male, with a history as outlined below, who presented to the emergencydepartment on August 14 with bladder spasms, hematuriaand right flank pain. The patient has a complex urologic history including radical prostatectomy and radiation secondary to prostate cancer with subsequentchronic radiation cystitis and retention leading to suprapubic catheter placement. He is currently followed by Dr. Gilliland of urology. On presentation to the emergency department, the patient was noted to have a fever 102.9 ?F. He wastachycardic, tachypneic and hypotensive. Chemistry profile was notable for a creatinine of 1.69 with a lactate of 4.2. Urinalysis was positive for leukocyte esterase and rare urine bacteria. CT abdomen/pelvis demonstrated mild to moderate right hydroureteronephrosis. The patient was ordered to receive sepsis related IV fluid resuscitation. He was started on antimicrobial therapy. Unfortunately, the patient's hypotensive with fluid refractory and the patient was ultimately placed on Levophed to maintain hemodynamic stability. The patient was subsequently admitted to the medical intensive care unit for further management. [facility] Medical History Hearing loss, left Hearing loss, right Anxiety Depression Chronic indwelling Worthy catheter TIA (transient ischemic attack) Chronic radiation cystitis Worthy catheter in place Wears glasses Cancer Arthritis Non-smoker History of pain when walking History of edema Hypertension Prostate cancer Blood in urine Home Medications ?Medication ?Instructions ?Recorded ?Last Taken ?Type amlodipine 10 mg tablet 10 mg PO DAILY BLOOD PRESSUR E 12/08/18 01/13/24 History lisinopril 40 mg tablet 40 mg PO BID BLOOD PRESSURE 12/08/18 01/13/24 History terazosin 5 mg capsule 5 mg PO QPM BLOOD PRESSURE 0 12/08/18 01/13/24 History multivit,Ca,min-iron 8 mg-folic 1 tab PO DAILY SUPPLEM ENT 11/04/23 01/13/24 History acid 200 mcg-lycopene 600 mcg tablet (A Thru Z [employer] Ultimate) Allergy/AdvReac Type Severity Reaction Status Date / Time losartan Allergy Mild Rash Verified 08/14/24 19:22 Sulfa (Sulfonamide Allergy Hives Verified 08/14/24 19:22 Antibiotics) atenolol AdvReac Mild WEAKNESS Verified 08/14/24 19:22 hydrochlorothiazide AdvReac Mild UNKNOWN Verified 08/14/24 19:22 indomethacin (From Indocin) AdvReac Mild GI upset Verified 08/14/24 19:22 Surgical History History of left knee replacement Hx of radical prostatectomy Hx of cystoscopy Hx of colonoscopy Social History household members: spouse housing: house Smoking Status: Never smoker ROS ROS Narrative 10 systems were reviewed with pertinent positives as noted in the HPI above. Physical Exam Const alert, oriented x3 and no apparent distress General Appearance: cooperative HEENT normocephalic and head/scalp atraumatic Eyes PERRL, EOMs intact bilaterally and conjunctivae normal Neck supple General: trachea midline Chest inspection of chest normal Resp normal respiratory effort Auscultation: Negative for rales, rhonchi or wheezes Cardio regular rate and regular rhythm GI Negative for soft to palpation or non-tender Narrative: Suprapubic catheter in place Extremity no clubbing, cyanosis or edema Skin no rashes or lesions noted Neuro CN's II-XII intact bilaterally, moves all extremities and no focal motor deficits Psych cooperative and affect normal Lab / Micro Data 08/15/24 07:35 08/15/24 07:35 Labs: Laboratory Results - last 24 hr 08/14/24 19:40: WBC 1.9 L, RBC 4.23 L, Hgb 12.0 L, Hct 36.1 L, MCV 85.3, MCH 28.4, MCHC 33.2, RDW Std Deviation 43.3, RDW Coeff of Jerry 14.0, Plt Count 229, MPV 9.6, Immature Gran % (Auto) 1.000 H, Neut % (Auto) 76.8 H, Lymph % (Auto) 15.5 L, Stanley % (Auto) 0.5, Eos % (Auto) 5.7 H, Baso % (Auto) 0.5,Absolute Neuts(auto) 1.5 L, Absolute Lymphs (auto) 0.30 L, Nucleated RBC % 0, Differential Comment SEE COMMENT, Platelet Estimate ADEQUATE, RBC Morphology NORM C+C, Anisocytosis RARE, Sodium 139, Potassium 4.5, Chloride 105, Carbon Dioxide 17.4 L, Anion Gap 17 H, BUN 31 H, Creatinine 1.69 H, Est GFR (MDRD) Non- Af 42 L, BUN/Creatinine Ratio 18.2, Glucose 139 H, Hemoglobin A1c 6.3, Calcium 9.2, TotalBilirubin 0.25, AST 24, ALT 16, Alkaline Phosphatase 85, Total Protein 7.2, Albumin 3.7, Globulin 3.4, Albumin/Globulin Ratio 1.1, Vitamin B12 1133 H, TSH 3.660 08/14/24 19:42: Serum Folate 18.20 08/14/24 21:30: Lactic Acid 4.2 H* 08/14/24 21:40: PT 15.5 H, INR 1.2, APTT 26.3 08/14/24 22:06: Urine Color Red, Urine Clarity Cloudy, Urine pH 8.0, Ur SpecificGravity 1.010, Urine Protein 100 H, Urine Glucose (UA) Normal, Urine Ketones 5 H, Urine Occult Blood 250 H, Urine Nitrite Negative, Urine Bilirubin Negative, Urine Urobilinogen Normal, Ur Leukocyte Esterase 500 H, UrineRBC > 100 SEEN, Urine WBC 50-100 SEEN, Ur Squamous Epith Cells 5-10 SEEN, Amorphous Sediment 2+ PHOS, Urine Bacteria RARE, Urine Mucus 0 SEEN 08/15/24 02:55: PSA Screen < 0.02 L 08/15/24 07:35: WBC 13.0 H, RBC 3.18 L, Hgb 9.1 L, Hct 27.5 L, MCV 86.5, MCH 28.6, MCHC 33.1, RDW Std Deviation 46.3 H, RDW Coeff of Jerry 14.6, Plt Count 156,MPV 10.0, Immature Gran % (Auto) 1.300 H, Neut % (Auto) 93.8 H, Lymph % (Auto) 1.8 L, Stanley % (Auto) 2.8, Eos % (Auto) 0.1, Baso % (Auto) 0.2, Absolute Neuts (auto) 12.2 H, Absolute Lymphs (auto) 0.24 L, Nucleated RBC % 0 Micro: Microbiology 08/14/24 21:40 Mucosa - Nose SARS-CoV-2, Influenza & RSV (PCR) - Final Imaging Radiology Impression Abdomen/Pelvis CT 08/14/24 21:00 IMPRESSION: 1. Mild/moderate right hydroureteronephrosis without an obstructing calculus. Underlying obstructive bladder lesion not excluded. Recommend further assessment with nonemergent CT urogram and/or direct visualization. 2. Underdistended bladder with diffuse wall thickening and mild perivesicular fat stranding. Correlate for possible cystitis. Suprapubic catheter in place. 3. Additional chronic findings as above. One or more dose reduction techniques were used (e.g., Automated exposure control, adjustment of the mA and/or kV according to patient size, use of iterative reconstruction technique). Reading Location: NO Chest X-Ray 08/14/24 21:29 IMPRESSION: No focal airspace abnormality. Reading Location: NO Charges/Coding Procedures Hospitalists Procedures: 43144 Critical Care 1st Hr 08/15/24 0924 Cosigner Signature (if applicable): CC: Dr. Kelvin Han MD~ Signed [facility]03-12-2025 History and physical note Author Rajinder Iyer [facility] Note Date/Time August 15, 2024 6:5 6am [facility] Medical Records Department [address] [place] [address] H&P Exam - Hospitalist 08/14/24 2322 MR#: [id number] Acct: [id number] Name: BARBARA MILAN MONI Rep #:[id number] : 1945 78 From: Rajinder Hernandez DO PCP: Dr. Kelvin Han MD Status :ADM IN Location: ICU ICU03-1 HPI - General General Date of Admission: 08/14/24 Date of Service: 08/14/24 Chief Complaint: Fever, Right Flank Pain and Hematuria. HPI Narrative BARBARA MILAN, is a 78 M with a past medical history of essential hypertension; on lisinopril and amlodipine, overweight; with BMI of 29.6 this admission, history of TIA, history of prostate cancer; s/p radical prostatectomy (2011) andradiation with subsequent chronic radiation cystitis, chronic urinary retention with chronic suprapubic catheter; on terazosin, history of bladder neck contracture, history of UTI; with sepsis, history of hematuria, history of cystoscopies x 5, history of colonoscopy (2015), history of depression; not currently on treatment, chronic hearing loss and OA; with history of Left TKR who presents to [facility] ER complaining of fever, Right flank pain and hematuria. Mr. Milan reports his symptoms began approximately 4.5 hours prior to arrival with the abrupt-onset of Right flank pain that was severe, 10/10, sharp, stabbing, intermittent and was made better or worse by nothing. He also admits to associated intermittent bladder spasms with hematuria following the spasms while he was at home which resolved with increased fluid intake. He then took acetaminophen at ~2 PM to help with his bladder spasms and changed his catheter tubing and bag at that time. He admits to associated fever up to ~100 ?F confirmed in ER, chills and nausea with 1 episode of bilious emesis upon arrivalto the ER. He denies related chest pain, lightheadedness, dizziness, shortness of breath, headache, rash or focal neurologic deficits. In the ER he was noted to have Severe Leukopenia of 1.9K with Left- shift of 1% along with Lactic Acidosis of 4.2 mmol/L present on admission with a corresponding UA grossly positive for Acute Cystitis; with hematuria consistent with Sepsis with Septic Shock as patient's blood pressure dropped into the ~70 mmHg systolic range and spite of 3L fluid bolus complicated by addition laboratory evidence of CHRIS; withelevated serum creatinine of 1.69 mg/dL and BUN of 31 mg/dL (up from his baseline of 1.47 mg/dL and 24 mg/dL on July 19, 2024) compounded by CT evidence of mild-moderate Right hydroureteronephrosis without an obstructing calculus. Obstructive bladder lesion not excluded. Recommend further assessment with nonemergent CT urogram and/or direct visualization. Under distended bladder with diffuse wall thickening and mild perivesicular fat stranding correlate for possible cystitis with suprapubic catheter in place. Hewas then admitted to the ICU for ongoing care under the sepsis protocol for staythat is expected to extend beyond 2 midnights. [facility] Medical History Hearing loss, left Hearing loss, right Anxiety Depression Chronic indwelling Worthy catheter TIA (transient ischemic attack) Chronic radiation cystitis Worthy catheter in place Wears glasses Cancer Arthritis Non-smoker History of pain when walking History of edema Hypertension Prostate cancer Blood in urine Home Medications ?Medication ?Instructions ?Recorded ?Last Taken ?Type amlodipine 10 mg tablet 10 mg PO DAILY BLOOD PRESSUR E 12/08/18 01/13/24 History lisinopril 40 mg tablet 40 mg PO BID BLOOD PRESSURE 12/08/18 01/13/24 History terazosin 5 mg capsule 5 mg PO QPM BLOOD PRESSURE 0 12/08/18 01/13/24 History multivit,Ca,min-iron 8 mg-folic 1 tab PO DAILY SUPPLEM ENT 11/04/23 01/13/24 History acid 200 mcg-lycopene 600 mcg tablet (A Thru Z [employer]'s Ultimate) Allergy/AdvReac Type Severity Reaction Status Date / Time losartan Allergy Mild Rash Verified 08/14/24 19:22 Sulfa (Sulfonamide Allergy Hives Verified 08/14/24 19:22 Antibiotics) atenolol AdvReac Mild WEAKNESS Verified 08/14/24 19:22 hydrochlorothiazide AdvReac Mild UNKNOWN Verified 08/14/24 19:22 indomethacin (From Indocin) AdvReac Mild GI upset Verified 08/14/24 19:22 Surgical History History of left knee replacement Hx of radical prostatectomy Hx of cystoscopy Hx of colonoscopy Social History household members: spouse housing: house Smoking Status: Never smoker ROS ROS Narrative Review of Systems: Constitutional: Patient admits to fever and chills as per HPI. Eyes: Patient denies changes vision or discharge from eyes. ENT: Patient denies runny nose, sore throat or ear pain. Resp: Patient denies shortness of breath or cough. CV: Patient denies chest pain, palpitations or heart racing. GI: Patient admits to nausea with 1 episode of bilious emesis noted on arrival as per HPI. He denies diarrhea or constipation. : Patient admits to severe Right flank pain with hematuria with suprapubic catheter in place as per HPI. MSK: Patient admits to right flank pain but he denies arthralgias or myalgias. Skin: Patient denies abscess, rash or wounds. Psych: Patient denies symptoms of uncontrolled depression or anxiety. Neuro: Patient denies headache, paresthesias or focal neurologic deficits. Allergy: Patient denies lip swelling, tongue swelling or urticaria. Hematology: Patient admits to intermittent hematuria as noted in HPI. Endocrinology: Patient denies polyuria, polydipsia or polyphagia. 14 point ROS otherwise negative except for positives noted above in HPI. Vital Signs Vital Signs Vital Signs: 08/14/24 19:22 08/14/24 21:21 08/14/24 21:37 Temperature 97.8 F 102.9 F H 102.9 F H Temperature Source Oral Oral Oral Pulse Rate 124 H 140 H 146 H Respiratory Rate 26 H 24 H 38 H Blood Pressure 101/61 95/50 L 75/50 L Blood Pressure Mean 74 65 58 Pulse Ox 98 97 97 Oxygen Delivery Method Room Air Room Air Room Air Oxygen Flow Rate (L/min) 08/14/24 21:37 08/14/24 21:44 08/14/24 21:44 Temperature Temperature Source Pulse Rate 140 H Respiratory Rate 24 H Blood Pressure 89/73 L 89/73 L Blood Pressure Mean 79 79 Pulse Ox Oxygen Delivery Method Oxygen Flow Rate (L/min) 08/14/24 21:44 08/14/24 21:45 08/14/24 21:45 Temperature Temperature Source Pulse Rate 143 H Respiratory Rate 22 H Blood Pressure 89/73 L Blood Pressure Mean 79 Pulse Ox 91 Oxygen Delivery Method Nasal Cannula Oxygen Flow Rate (L/min) 2 08/14/24 22:00 08/14/24 22:15 08/14/24 22:30 Temperature Temperature Source Pulse Rate 137 H 128 H 117 H Respiratory Rate 33 H 21 H 28 H Blood Pressure 119/64 Blood Pressure Mean 81 Pulse Ox 96 Oxygen Delivery Method Oxygen Flow Rate (L/min) 08/14/24 22:45 08/14/24 23:00 Temperature Temperature Source Pulse Rate 113 H 122 H Respiratory Rate 27 H 28 H Blood Pressure 96/55 L Blood Pressure Mean 68 Pulse Ox 94 95 Oxygen Delivery Method Nasal Cannula Oxygen Flow Rate (L/min) 2 Weight Weight: 200 lb 6.403 oz Body Mass Index (BMI) 29.5 Physical Exam Const alert, oriented x3, no apparent distress and average body habitus General Appearance: cooperative HEENT normocephalic, head/scalp atraumatic and hearing grossly normal bilaterally HEENT Narrative: Mucous membranes dry. Eyes PERRL, EOMs intact bilaterally and conjunctivae normal Neck no lymphadenopathy and supple Resp normal respiratory effort, no retractions, no use of accessory muscles and clearto auscultation bilaterally Cardio regular rate and regular rhythm GI normal to inspection, nondistended, normoactive bowel sounds, soft to palpation,non-tender and non-distended Extremity normal to inspection, full ROM and no clubbing, cyanosis or edema Skin Skin Narrative: Patient's evidence of rash, abscess, wounds or jaundice. Neuro oriented x3, CN's II-XII intact bilaterally, moves all extremities and no focal motor deficits Sensorium / Orientation: awake, alert, oriented to person, oriented to place andoriented to time Speech: speech normal Psych affect normal Results Medical Records Data Attestation: I reviewed the patient's medical records Lab / Micro Data Attestation: I reviewed the patient's lab results. 08/14/24 19:40 08/14/24 19:40 Labs: Laboratory Results - last 24 hr 08/14/24 19:40: WBC 1.9 L, RBC 4.23 L, Hgb 12.0 L, Hct 36.1 L, MCV 85.3, MCH 28.4, MCHC 33.2, RDW Std Deviation 43.3, RDW Coeff of Jerry 14.0, Plt Count 229, MPV 9.6, Immature Gran % (Auto) 1.000 H, Neut % (Auto) 76.8 H, Lymph % (Auto) 15.5 L, Stanley % (Auto) 0.5, Eos % (Auto) 5.7 H, Baso % (Auto) 0.5, Absolute Neuts(auto) 1.5 L, Absolute Lymphs (auto) 0.30 L, Nucleated RBC % 0, Differential Comment SEE COMMENT, Platelet Estimate ADEQUATE, RBC Morphology NORM C+C, Anisocytosis RARE, Sodium 139, Potassium 4.5, Chloride 105, Carbon Dioxide 17.4 L, Anion Gap 17 H, BUN 31 H, Creatinine 1.69 H, Est GFR (MDRD) Non-Af 42 L, BUN/Creatinine Ratio 18.2, Glucose 139 H, Calcium 9.2, Total Bilirubin 0.25, AST24, ALT 16, Alkaline Phosphatase 85, Total Protein 7.2, Albumin 3.7, Globulin 3.4, Albumin/Globulin Ratio 1.1 08/14/24 21:30: Lactic Acid 4.2 H* 08/14/24 21:40: PT 15.5 H, INR 1.2, APTT 26.3 08/14/24 22:06: Urine Color Red, Urine Clarity Cloudy, Urine pH 8.0, Ur SpecificGravity 1.010, Urine Protein 100 H, Urine Glucose (UA) Normal, Urine Ketones 5 H, Urine Occult Blood 250 H, Urine Nitrite Negative, Urine Bilirubin Negative, Urine Urobilinogen Normal, Ur Leukocyte Esterase 500 H, Urine RBC > 100 SEEN, Urine WBC 50-100 SEEN, Ur Squamous Epith Cells 5-10 SEEN, Amorphous Sediment 2+ PHOS, Urine Bacteria RARE, Urine Mucus 0 SEEN Micro: Microbiology 08/14/24 21:40 Mucosa - Nose SARS-CoV-2, Influenza & RSV (PCR) - Final Imaging Radiology Impression Abdomen/Pelvis CT 08/14/24 21:00 IMPRESSION: 1. Mild/moderate right hydroureteronephrosis without an obstructing calculus. Underlying obstructive bladder lesion not excluded. Recommend further assessment with nonemergent CT urogram and/or direct visualization. 2. Underdistended bladder with diffuse wall thickening and mild perivesicular fat stranding. Correlate for possible cystitis. Suprapubic catheter in place. 3. Additional chronic findings as above. One or more dose reduction techniques were used (e.g., Automated exposure control, adjustment of the mA and/or kV according to patient size, use of iterative reconstruction technique). Reading Location: NO Chest X-Ray 08/14/24 21:29 IMPRESSION: No focal airspace abnormality. Reading Location: NO Assessment & Plan Assessment/Plan (1) Sepsis: QUALIFIERS: Acute renal failure type: unspecified Sepsis acute organ dysfunction status: with acute organ dysfunction Sepsis type: sepsis due to unspecified organism Severe sepsis acute organ dysfunction type: acute renalfailure Severe sepsis shock status: with septic shock Qualified Code(s): A41.9- Sepsis, unspecified organism; R65.21 - Severe sepsis with septic shock; N17.9 - Acute kidney failure, unspecified (2) UTI (urinary tract infection) due to urinary indwelling catheter: QUALIFIERS: Encounter type: initial encounter Indwelling urinary catheter type: cystostomy catheter Qualified Code(s): T83.510A - Infection and inflammatory reaction due to cystostomy catheter, initial encounter; N39.0 - Urinary tract infection, site not specified (3) Acute abdominal pain in right flank: (4) Hematuria syndrome: (5) Lesion of bladder: (6) CHRIS (acute kidney injury): (7) History of prostate cancer: (8) History of prostatectomy: (9) Chronic radiation cystitis: (10) Overweight (BMI 25.0-29.9): PLAN: Plan 1. Severe Leukopenia of 1.9K with Left-shift of 1% along with Lactic Acidosis of 4.2 mmol/L present on admission with a corresponding UA grossly positive for Acute Cystitis; with hematuria consistent with Sepsis with Septic Shock due to suprapubic catheter as patient's blood pressure dropped into the ~70 mmHg systolic range and spite of 3L fluid bolus in the setting of a known previous history of UTI with Sepsis - Admit to ICU for treatment under the Sepsis protocol. Stop IV ceftriaxone in favor of IV piperacillin-tazobactam given patient's critical illness and await culture and sensitivity data. Patient started on Levophed to keep MAP greater than 65 mmHg with PICC line ordered for a.m. Give acetaminophen prn for [id number] (level 1- 5/10) pain or fever. Give morphine IV prn for severe (level 6-10/10) pain. Give ondansetron IV prn for nausea or vomiting. Finally, we will consult pulmonary / critical- care to see this patient on rounds in the a.m. for further recommendations with help appreciated in advance. 2. CHRIS; with elevated serum creatinine of 1.69 mg/dL and BUN of 31 mg/dL (up from his baseline of 1.47 mg/dL and 24 mg/dL on July 19, 2024) complicating #1 - Vigorously volume resuscitate and recheck renal indices daily to follow trend. We will avoid potentially nephrotoxic medications. 3. CT evidence of mild-moderate Right hydroureteronephrosis without an obstructing calculus. Obstructive bladder lesion not excluded. Recommend further assessment with nonemergent CT urogram and/or direct visualization. Under distended bladder with diffuse wall thickening and mild perivesicular fat stranding correlate for possible cystitis with suprapubic catheter in place adding to the medical complexity of #1 & #2 - We we will check PSA screen to evaluate for recurrence of possible prostate cancer with bladder lesion noted. Finally, we will consult urology to see this patient on rounds in the a.m. for further recommendations regarding possible cystoscopy this admission with recurrent hematuria and possible bladder lesion on CT without appreciated in advance. 4. History of prostate cancer; s/p radical prostatectomy (2011) and radiation with subsequent chronic radiation cystitis and subsequent cystoscopies x 5 - Noted. 5. Chronic urinary retention with chronic suprapubic catheter; on terazosin - Noted. Hold terazosin at this time due to hypotension noted in #1. 6. History of bladder neck contracture - Noted. 7. Overweight; with BMI of 29.6 this admission adding to the burden of disease outlined from #1 - #6 - Noted. Weight loss will be recommended. Check TSH. 8. Essential Hypertension; on lisinopril and amlodipine - Hold scheduled antihypertensives at this time due to #1. 9. History of TIA - Noted with no signs of recurrence at this time. 10. History of colonoscopy (2016) - Noted. 11. History of depression; not currently on treatment - Stable. 12. Chronic hearing loss - Stable. 13. OA; with history of Left TKR - Give acetaminophen according to pain scale outlined in #1. 14. DVT prophylaxis - SCD's only in light of recurrent hematuria and suspected bladder lesion with possible impending cystoscopy. Total time: Approximately (but not less than) 75 minutes. Sepsis Attestation Sepsis Alert: Yes Sepsis Attestation: Agree w/Sepsis Date exam was performed: 08/14/24 Time exam was performed: 23:45 Possible Source of Sepsis: Implantable device and Genitourinary Sepsis Organ Dysfunction Criteria Present: SBP < 90 mmHg or MAP < 65 mmHg Supportive Findings: Severe Leukopenia of 1.9K with Left-shift of 1% along with Lactic Acidosis of 4.2 mmol/L present on admission with a corresponding UA grossly positive for Acute Cystitis; with hematuria consistent with Sepsis with Septic Shock due to suprapubic catheter as patient's blood pressure dropped into the ~70 mmHg systolic range and spite of 3L fluid bolus in the setting of a known previous history of UTI with Sepsis Fluid Resuscitation Fluid resuscitation indicated?: Yes Fluid Resuscitation ordered: 30 ml/kg fluid bolus ordered Amount of fluid ordered: 3 Sepsis Note Date exam was performed: 08/15/24 Time exam was performed: 02:00 Sepsis Attestation: Sepsis re-evaluation was performed Response to fluids: Non Fluid responsive hypotension and Vasopressors started Charges/Coding Visit Charges Inpatient E&M: 61573 Init Hosp L3 08/15/24 0656 <Electronically signed by Rajinder Acosta DO> Cosigner Signature (if applicable): CC: Dr. Kelvin Han MD; Dr. Rajinder Acosta DO~ Signed [facility] Work Phone: [phone] 223-344403-12-2025 Consult note [facility] Medical Records Department [address] [place] [address] Consultation - Urology 08/15/24 0891 MR#: [id number] Acct: [id number] Name: BARBARA MILAN MONI Rep #:[id number] : 1945 78 From: Zhao Gilliland MD PCP: Dr. Kelvin Han MD Status :ADM IN Location: ICU ICU03-1 HPI Consult Data Date of Consult: 08/15/24 HPI Narrative Reason for Consultation: UTI sepsis hydronephrosis HPI Narrative: BARBARA MILAN, is a 78 M who presents to the hospital with a urinary tract infection and sepsis is in the intensive care unit he had elevated white blood count, CAT scan was done this demonstrates hydronephrosis of the right side withlow bit of hydroureter dissection chronic finding prior CAT scan showed the samething just maybe not as dilated at this time but this appears to be chronic he has a suprapubic tube in place. For now I do not plan to do any intervention for the hydronephrosis we will just watch this. And see how he does. He does has a suprapubic catheter this was just changed my office not that long ago I donot think need to be changed currently patient understands that with a suprapubic catheter is a higher risk for having UTIs etc. but given the fact that he had severe leakage of urine and poor bladder control and no control of his bladder after radical prostatectomy done at the [facility] and after radiation done at the [facility] he is suffered with significant incontinence and is ended up with a suprapubic catheter which we changed every month so for now disconnect continue to change the catheter every month as planned I will watch him and see what happens but do not plan to do any intervention for the hydronephrosis since it appears to be chronic. [facility] Medical History Hearing loss, left Hearing loss, right Anxiety Depression Chronic indwelling Worthy catheter TIA (transient ischemic attack) Chronic radiation cystitis Worthy catheter in place Wears glasses Cancer Arthritis Non-smoker History of pain when walking History of edema Hypertension Prostate cancer Blood in urine Home Medications ?Medication ?Instructions ?Recorded ?Last Taken ?Type amlodipine 10 mg tablet 10 mg PO DAILY BLOOD PRESSUR E 12/08/18 01/13/24 History lisinopril 40 mg tablet 40 mg PO BID BLOOD PRESSURE 12/08/18 01/13/24 History terazosin 5 mg capsule 5 mg PO QPM BLOOD PRESSURE 0 12/08/18 01/13/24 History multivit,Ca,min-iron 8 mg-folic 1 tab PO DAILY SUPPLEM ENT 11/04/23 01/13/24 History acid 200 mcg-lycopene 600 mcg tablet (A Thru Z [employer]) Allergy/AdvReac Type Severity Reaction Status Date / Time losartan Allergy Mild Rash Verified 08/14/24 19:22 Sulfa (Sulfonamide Allergy Hives Verified 08/14/24 19:22 Antibiotics) atenolol AdvReac Mild WEAKNESS Verified 08/14/24 19:22 hydrochlorothiazide AdvReac Mild UNKNOWN Verified 08/14/24 19:22 indomethacin (From Indocin) AdvReac Mild GI upset Verified 08/14/24 19:22 Surgical History History of left knee replacement Hx of radical prostatectomy Hx of cystoscopy Hx of colonoscopy Social History household members: spouse housing: house Smoking Status: Never smoker Lab / Micro Data 08/15/24 07:35 08/15/24 07:35 Labs: Laboratory Results - last 24 hr 08/14/24 19:40: WBC 1.9 L, RBC 4.23 L, Hgb 12.0 L, Hct 36.1 L, MCV 85.3, MCH 28.4, MCHC 33.2, RDW Std Deviation 43.3, RDW Coeff of Jerry 14.0, Plt Count 229, MPV 9.6, Immature Gran % (Auto) 1.000 H, Neut % (Auto) 76.8 H, Lymph % (Auto) 15.5 L, Stanley % (Auto) 0.5, Eos % (Auto) 5.7 H, Baso % (Auto) 0.5,Absolute Neuts(auto) 1.5 L, Absolute Lymphs (auto) 0.30 L, Nucleated RBC % 0, Differential Comment SEE COMMENT, Platelet Estimate ADEQUATE, RBC Morphology NORM C+C, Anisocytosis RARE, Sodium 139, Potassium 4.5, Chloride 105, Carbon Dioxide 17.4 L, Anion Gap 17 H, BUN 31 H, Creatinine 1.69 H, Est GFR (MDRD) Non- Af 42 L, BUN/Creatinine Ratio 18.2, Glucose 139 H, Hemoglobin A1c 6.3, Calcium 9.2, TotalBilirubin 0.25, AST 24, ALT 16, Alkaline Phosphatase 85, Total Protein 7.2, Albumin 3.7, Globulin 3.4, Albumin/Globulin Ratio 1.1, Vitamin B12 1133 H, TSH 3.660 08/14/24 19:42: Serum Folate 18.20 08/14/24 21:30: Lactic Acid 4.2 H* 08/14/24 21:40: PT 15.5 H, INR 1.2, APTT 26.3 08/14/24 22:06: Urine Color Red, Urine Clarity Cloudy, Urine pH 8.0, Ur SpecificGravity 1.010, Urine Protein 100 H, Urine Glucose (UA) Normal, Urine Ketones 5 H, Urine Occult Blood 250 H, Urine Nitrite Negative, Urine Bilirubin Negative, Urine Urobilinogen Normal, Ur Leukocyte Esterase 500 H, UrineRBC > 100 SEEN, Urine WBC 50-100 SEEN, Ur Squamous Epith Cells 5-10 SEEN, Amorphous Sediment 2+ PHOS, Urine Bacteria RARE, Urine Mucus 0 SEEN 08/15/24 02:55: PSA Screen < 0.02 L 08/15/24 07:35: WBC 13.0 H, RBC 3.18 L, Hgb 9.1 L, Hct 27.5 L, MCV 86.5, MCH 28.6, MCHC 33.1, RDW Std Deviation 46.3 H, RDW Coeff of Jerry 14.6, Plt Count 156,MPV 10.0, Immature Gran % (Auto) 1.300 H, Neut % (Auto) 93.8 H, Lymph % (Auto) 1.8 L, Stanley % (Auto) 2.8, Eos % (Auto) 0.1, Baso % (Auto) 0.2, Absolute Neuts (auto) 12.2 H, Absolute Lymphs (auto) 0.24 L, Nucleated RBC % 0, Differential Comment, Sodium 139, Potassium 4.6, Chloride 110 H, Carbon Dioxide 16.2 L, Anion Gap 13, BUN 32 H, Creatinine 1.98 H, Estim Creat Clear Calc 35.03 L, Est GFR (MDRD) Non-Af 34 L, BUN/Creatinine Ratio 16.1, Glucose 130 H, Lactic Acid 3.5 H*, Calcium 7.4 L Micro: Microbiology 08/14/24 21:40 Mucosa - Nose SARS-CoV-2, Influenza & RSV (PCR) - Final Imaging Radiology Impression Abdomen/Pelvis CT 08/14/24 21:00 IMPRESSION: 1. Mild/moderate right hydroureteronephrosis without an obstructing calculus. Underlying obstructive bladder lesion not excluded. Recommend further assessment with nonemergent CT urogram and/or direct visualization. 2. Underdistended bladder with diffuse wall thickening and mild perivesicular fat stranding. Correlate for possible cystitis. Suprapubic catheter in place. 3. Additional chronic findings as above. One or more dose reduction techniques were used (e.g., Automated exposure control, adjustment of the mA and/or kV according to patient size, use of iterative reconstruction technique). Reading Location: [facility] Chest X-Ray 08/14/24 21:29 IMPRESSION: No focal airspace abnormality. Reading Location: [facility] 08/15/24 0849 Cosigner Signature (if applicable): CC: Dr. Kelvin Han MD~ Signed [facility]03-12-2025 History and physical note [facility] Medical Records Department [address] [place] [id number] H&P Exam - Hospitalist 08/14/24 2322 MR#: [id number] Acct: [id number] Name: BARBARA MILAN MONI Rep #:[id number] : 1945 78 From: Rajinder Hernandez DO PCP: Dr. Kelvin Han MD Status :ADM IN Location: ICU ICU03- HPI - General General Date of Admission: 08/14/24 Date of Service: 08/14/24 Chief Complaint: Fever, Right Flank Pain and Hematuria. HPI Narrative BARBARA MILAN, is a 78 M with a past medical history of essential hypertension; on lisinopril and amlodipine, overweight; with BMI of 29.6 this admission, history of TIA, history of prostate cancer; s/p radical prostatectomy (2011) andradiation with subsequent chronic radiation cystitis, chronic urinary retention with chronic suprapubic catheter; on terazosin, history of bladder neck contracture,history of UTI; with sepsis, history of hematuria, history of cystoscopies x 5, history of colonoscopy (2016), history of depression; not currently on treatment, chronic hearing loss and OA; with history of Left TKR who presents to [facility] ER complaining of fever, Right flank pain and hematuria. Mr. Milan reports his symptoms began approximately 4.5 hours prior to arrival with the abrupt-onset of Right flank pain that was severe, 10/10, sharp, stabbing, intermittent and was made better or worse by nothing. He also admits to associated intermittent bladder spasms with hematuria following the spasms while he was at home which resolved with increased fluid intake. He then took acetaminophen at ~2 PM to help with his bladder spasms and changed his catheter tubing and bag at that time. He admits to associated fever up to ~100 ?F confirmed in ER, chills and nausea with 1 episode of bilious emesis upon arrivalto the ER. He denies related chest pain, lightheadedness, dizziness, shortness of breath, headache, rash or focal neurologic deficits. In the ER he was noted to have Severe Leukopenia of 1.9K with Left-shift of 1% along with Lactic Acidosis of 4.2 mmol/L present on admission with a corresponding UA grossly positive for Acute Cystitis; with hematuria consistent with Sepsis with Septic Shock as patient's blood pressure dropped into the ~70 mmHg systolic range and spite of 3L fluid bolus complicated by addition laboratory evidence of CHRIS; withelevated serum creatinine of 1.69mg/dL and BUN of 31 mg/dL (up from his baseline of 1.47 mg/dL and 24 mg/dL on July 19, 2024) compounded by CT evidence of mild-moderate Right hydroureteronephrosis without an obstructing calculus. Obstructive bladder lesion not excluded. Recommend further assessment with nonemergent CT urogram and/or direct visualization. Under distended bladder with diffuse wall thickening and mild perivesicular fat stranding correlate for possible cystitis with suprapubic catheter in place. Hewas then admitted to the ICU for ongoing care under the sepsis protocol for staythat is expected to extend beyond 2 midnights. [facility] Medical History Hearing loss, left Hearing loss, right Anxiety Depression Chronic indwelling Worthy catheter TIA (transient ischemic attack) Chronic radiation cystitis Worthy catheter in place Wears glasses Cancer Arthritis Non-smoker History of pain when walking History of edema Hypertension Prostate cancer Blood in urine Home Medications ?Medication ?Instructions ?Recorded ?Last Taken ?Type amlodipine 10 mg tablet 10 mg PO DAILY BLOOD PRESSUR E 12/08/18 01/13/24 History lisinopril 40 mg tablet 40 mg PO BID BLOOD PRESSURE 12/08/18 01/13/24 History terazosin 5 mg capsule 5 mg PO QPM BLOOD PRESSURE 0 12/08/18 01/13/24 History multivit,Ca,min-iron 8 mg-folic 1 tab PO DAILY SUPPLEM ENT 11/04/23 01/13/24 History acid 200 mcg-lycopene 600 mcg tablet (A Thru Z [employer] Ultimate) Allergy/AdvReac Type Severity Reaction Status Date / Time losartan Allergy Mild Rash Verified 08/14/24 19:22 Sulfa (Sulfonamide Allergy Hives Verified 08/14/24 19:22 Antibiotics) atenolol AdvReac Mild WEAKNESS Verified 08/14/24 19:22 hydrochlorothiazide AdvReac Mild UNKNOWN Verified 08/14/24 19:22 indomethacin (From Indocin) AdvReac Mild GI upset Verified 08/14/24 19:22 Surgical History History of left knee replacement Hx of radical prostatectomy Hx of cystoscopy Hx of colonoscopy Social History household members: spouse housing: house Smoking Status: Never smoker ROS ROS Narrative Review of Systems: Constitutional: Patient admits to fever and chills as per HPI. Eyes: Patient denies changes vision or discharge from eyes. ENT: Patient denies runny nose, sore throat or ear pain. Resp: Patient denies shortness of breath or cough. CV: Patient denies chest pain, palpitations or heart racing. GI: Patient admits to nausea with 1 episode of bilious emesis noted on arrival as per HPI. He denies diarrhea or constipation. : Patient admits to severe Right flank pain with hematuria with suprapubic catheter in place as per HPI. MSK: Patient admits to right flank pain but he denies arthralgias or myalgias. Skin: Patient denies abscess, rash or wounds. Psych: Patient denies symptoms of uncontrolled depression or anxiety. Neuro: Patient denies headache, paresthesias or focal neurologic deficits. Allergy: Patient denies lip swelling, tongue swelling or urticaria. Hematology: Patient admits to intermittent hematuria as noted in HPI. Endocrinology: Patient denies polyuria, polydipsia or polyphagia. 14 point ROS otherwise negative except for positives noted above in HPI. Vital Signs Vital Signs Vital Signs: 08/14/24 19:22 08/14/24 21:21 08/14/24 21:37 Temperature 97.8 F 102.9 F H 102.9 F H Temperature Source Oral Oral Oral Pulse Rate 124 H 140 H 146 H Respiratory Rate 26 H 24 H 38 H Blood Pressure 101/61 95/50 L 75/50 L Blood Pressure Mean 74 65 58 Pulse Ox 98 97 97 Oxygen Delivery Method Room Air Room Air Room Air Oxygen Flow Rate (L/min) 08/14/24 21:37 08/14/24 21:44 08/14/24 21:44 Temperature Temperature Source Pulse Rate 140 H Respiratory Rate 24 H Blood Pressure 89/73 L 89/73 L Blood Pressure Mean 79 79 Pulse Ox Oxygen Delivery Method Oxygen Flow Rate (L/min) 08/14/24 21:44 08/14/24 21:45 08/14/24 21:45 Temperature Temperature Source Pulse Rate 143 H Respiratory Rate 22 H Blood Pressure 89/73 L Blood Pressure Mean 79 Pulse Ox 91 Oxygen Delivery Method Nasal Cannula Oxygen Flow Rate (L/min) 2 08/14/24 22:00 08/14/24 22:15 08/14/24 22:30 Temperature Temperature Source Pulse Rate 137 H 128 H 117 H Respiratory Rate 33 H 21 H 28 H Blood Pressure 119/64 Blood Pressure Mean 81 Pulse Ox 96 Oxygen Delivery Method Oxygen Flow Rate (L/min) 08/14/24 22:45 08/14/24 23:00 Temperature Temperature Source Pulse Rate 113 H 122 H Respiratory Rate 27 H 28 H Blood Pressure 96/55 L Blood Pressure Mean 68 Pulse Ox 94 95 Oxygen Delivery Method Nasal Cannula Oxygen Flow Rate (L/min) 2 Weight Weight: 200 lb 6.403 oz Body Mass Index (BMI) 29.5 Physical Exam Const alert, oriented x3, no apparent distress and average body habitus General Appearance: cooperative HEENT normocephalic, head/scalp atraumatic and hearing grossly normal bilaterally HEENT Narrative: Mucous membranes dry. Eyes PERRL, EOMs intact bilaterally and conjunctivae normal Neck no lymphadenopathy and supple Resp normal respiratory effort, no retractions, no use of accessory muscles and clearto auscultation bilaterally Cardio regular rate and regular rhythm GI normal to inspection, nondistended, normoactive bowel sounds, soft to palpation,non-tender and non-distended Extremity normal to inspection, full ROM and no clubbing, cyanosis or edema Skin Skin Narrative: Patient's evidence of rash, abscess, wounds or jaundice. Neuro oriented x3, CN's II-XII intact bilaterally, moves all extremities and no focal motor deficits Sensorium / Orientation: awake, alert, oriented to person, oriented to place andoriented to time Speech: speech normal Psych affect normal Results Medical Records Data Attestation: I reviewed the patient's medical records Lab / Micro Data Attestation: I reviewed the patient's lab results. 08/14/24 19:40 08/14/24 19:40 Labs: Laboratory Results - last 24 hr 08/14/24 19:40: WBC 1.9 L, RBC 4.23 L, Hgb 12.0 L, Hct 36.1 L, MCV 85.3, MCH 28.4, MCHC 33.2, RDW Std Deviation 43.3, RDW Coeff of Jerry 14.0, Plt Count 229, MPV 9.6, Immature Gran % (Auto) 1.000 H, Neut % (Auto) 76.8 H, Lymph % (Auto) 15.5 L, Stanley % (Auto) 0.5, Eos % (Auto) 5.7 H, Baso % (Auto) 0.5,Absolute Neuts(auto) 1.5 L, Absolute Lymphs (auto) 0.30 L, Nucleated RBC % 0, Differential Comment SEE COMMENT, Platelet Estimate ADEQUATE, RBC Morphology NORM C+C, Anisocytosis RARE, Sodium 139, Potassium 4.5, Chloride 105, Carbon Dioxide 17.4 L, Anion Gap 17 H, BUN 31 H, Creatinine 1.69 H, Est GFR (MDRD) Non- Af 42 L, BUN/Creatinine Ratio 18.2, Glucose 139 H, Calcium 9.2, Total Bilirubin 0.25, AST24, ALT 16, Alkaline Phosphatase 85, Total Protein 7.2, Albumin 3.7, Globulin 3.4, Albumin/Globulin Ratio 1.1 08/14/24 21:30: Lactic Acid 4.2 H* 08/14/24 21:40: PT 15.5 H, INR 1.2, APTT 26.3 08/14/24 22:06: Urine Color Red, Urine Clarity Cloudy, Urine pH 8.0, Ur SpecificGravity 1.010, Urine Protein 100 H, Urine Glucose (UA) Normal, Urine Ketones 5 H, Urine Occult Blood 250 H, Urine Nitrite Negative, Urine Bilirubin Negative, Urine Urobilinogen Normal, Ur Leukocyte Esterase 500 H, UrineRBC > 100 SEEN, Urine WBC 50-100 SEEN, Ur Squamous Epith Cells 5-10 SEEN, Amorphous Sediment 2+ PHOS, Urine Bacteria RARE, Urine Mucus 0 SEEN Micro: Microbiology 08/14/24 21:40 Mucosa - Nose SARS-CoV-2, Influenza & RSV (PCR) - Final Imaging Radiology Impression Abdomen/Pelvis CT 08/14/24 21:00 IMPRESSION: 1. Mild/moderate right hydroureteronephrosis without an obstructing calculus. Underlying obstructive bladder lesion not excluded. Recommend further assessment with nonemergent CT urogram and/or direct visualization. 2. Underdistended bladder with diffuse wall thickening and mild perivesicular fat stranding. Correlate for possible cystitis. Suprapubic catheter in place. 3. Additional chronic findings as above. One or more dose reduction techniques were used (e.g., Automated exposure control, adjustment of the mA and/or kV according to patient size, use of iterative reconstruction technique). Reading Location: [facility] Chest X-Ray 08/14/24 21:29 IMPRESSION: No focal airspace abnormality. Reading Location: [facility] Assessment & Plan Assessment/Plan (1) Sepsis: QUALIFIERS: Acute renal failure type: unspecified Sepsis acute organ dysfunction status: with acuteorgan dysfunction Sepsis type: sepsis due to unspecified organism Severe sepsis acute organ dysfunction type: acute renalfailure Severe sepsis shock status: with septic shock Qualified Code(s): A41.9- Sepsis, unspecified organism; R65.21 - Severe sepsis with septic shock; N17.9 - Acute kidney failure, unspecified (2) UTI (urinary tract infection) due to urinary indwelling catheter: QUALIFIERS: Encounter type: initial encounter Indwelling urinary catheter type: cystostomy catheterQualified Code(s): T83.510A - Infection and inflammatory reaction due to cystostomy catheter, initial encounter; N39.0 - Urinary tract infection, site not specified (3) Acute abdominal pain in right flank: (4) Hematuria syndrome: (5) Lesion of bladder: (6) CHRIS (acute kidney injury): (7) History of prostate cancer: (8) History of prostatectomy: (9) Chronic radiation cystitis: (10) Overweight (BMI 25.0-29.9): PLAN: Plan 1. Severe Leukopenia of 1.9K with Left-shift of 1% along with Lactic Acidosis of 4.2 mmol/L presenton admission with a corresponding UA grossly positive for Acute Cystitis; with hematuria consistentwith Sepsis with Septic Shock due to suprapubic catheter as patient's blood pressure dropped into the ~70 mmHg systolic range and spite of 3L fluid bolus in the setting of a known previous history ofUTI with Sepsis - Admit to ICU for treatment under the Sepsis protocol. Stop IV ceftriaxone in favor of IV piperacillin-tazobactam given patient's critical illness and await culture and sensitivity data. Patient started on Levophed to keep MAP greater than 65 mmHg with PICC line ordered for a.m. Give acetaminophen prn for [id number] (level 1-5/10) pain or fever. Give morphine IV prn for severe (level 6-10/10) pain. Give ondansetron IV prn for nausea or vomiting. Finally, we will consult pulmonary / critical-care to see this patient on rounds in the a.m. for further recommendations with help appreciated in advance. 2. CHRIS; with elevated serum creatinine of 1.69 mg/dL and BUN of 31 mg/dL (up from his baseline of 1.47 mg/dL and 24 mg/dL on July 19, 2024) complicating #1 - Vigorously volume resuscitate and recheck renal indices daily to follow trend. We will avoid potentially nephrotoxic medications. 3. CT evidence of mild-moderate Right hydroureteronephrosis without an obstructing calculus. Obstructive bladder lesion not excluded. Recommend further assessment with nonemergent CT urogram and/or direct visualization. Under distended bladder with diffuse wall thickening and mild perivesicular fat stranding correlate for possible cystitis with suprapubic catheter in place adding to the medical complexity of #1 & #2 - We we will check PSA screen to evaluate for recurrence of possible prostate cancer with bladder lesion noted. Finally, we will consult urology to see this patient on rounds in the a.m. for further recommendations regarding possible cystoscopy this admission with recurrent hematuria and possible bladder lesion on CT without appreciated in advance. 4. History of prostate cancer; s/p radical prostatectomy (2011) and radiation with subsequent chronic radiation cystitis and subsequent cystoscopies x 5 - Noted. 5. Chronic urinary retention with chronic suprapubic catheter; on terazosin - Noted. Hold terazosinat this time due to hypotension noted in #1. 6. History of bladder neck contracture - Noted. 7. Overweight; with BMI of 29.6 this admission adding to the burden of disease outlined from #1 - #6 - Noted. Weight loss will be recommended. Check TSH. 8. Essential Hypertension; on lisinopril and amlodipine - Hold scheduled antihypertensives at this time due to #1. 9. History of TIA - Noted with no signs of recurrence at this time. 10. History of colonoscopy (2015) - Noted. 11. History of depression; not currently on treatment - Stable. 12. Chronic hearing loss - Stable. 13. OA; with history of Left TKR - Give acetaminophen according to pain scale outlined in #1. 14. DVT prophylaxis - SCD's only in light of recurrent hematuria and suspected bladder lesion with possible impending cystoscopy. Total time: Approximately (but not less than) 75 minutes. Sepsis Attestation Sepsis Alert: Yes Sepsis Attestation: Agree w/Sepsis Date exam was performed: 08/14/24 Time exam was performed: 23:45 Possible Source of Sepsis: Implantable device and Genitourinary Sepsis Organ Dysfunction Criteria Present: SBP < 90 mmHg or MAP < 65 mmHg Supportive Findings: Severe Leukopenia of 1.9K with Left-shift of 1% along with Lactic Acidosis of 4.2 mmol/L present onadmission with a corresponding UA grossly positive for Acute Cystitis; with hematuria consistent with Sepsis with Septic Shock due to suprapubic catheter as patient's blood pressure dropped into the ~70 mmHg systolic range and spite of 3L fluid bolus in the setting of a known previous history of UTI with Sepsis Fluid Resuscitation Fluid resuscitation indicated?: Yes Fluid Resuscitation ordered: 30 ml/kg fluid bolus ordered Amount of fluid ordered: 3 Sepsis Note Date exam was performed: 08/15/24 Time exam was performed: 02:00 Sepsis Attestation: Sepsis re-evaluation was performed Response to fluids: Non Fluid responsive hypotension and Vasopressors started Charges/Coding Visit Charges Inpatient E&M: 97328 Init Hosp L3 08/15/24 0656 Cosigner Signature (if applicable): CC: Dr. Kelvin Han MD; Dr. Rajinder Acosta DO~ Signed [facility]03-12-2025 Evaluation note* Diagnosis Onset Date Resolution Status Admit Date Acute abdominal pain in righ t flank acute August 14, 2024 11:36pm Acute hypotension acute August 042024 11:36pm Acute UTI acute August 14 11:36pm CHRSI (acute kidney injury) acute August 14, 2024 11:36pm Bacteremia due to Gram-negat clarice bacteria acute August 14, 2024 11:36pm Hematuria syndrome acute August 14, 2024 11:36pm History of prostate cancer acute August 14, 2024 11:36pm History of prostatectomy acute August 14, 2024 11:36pm Lesion of bladder acute August 042024 11:36pm Overweight (BMI 25.0-29.9) acute August 14, 2024 11:36pm Sepsis acute August 14 11:36pm Septic shock acute August 14, 2024 11:36pm UTI (urinary tract infection ) due to urinary indwelling catheter acute August 14, 2024 11:36pm Chronic radiation cystitis chronic August 14, 2024 11:36pm [facility] Work Phone: 1(560) 859-423603-12-2025 Evaluation note* Diagnosis Onset Date Resolution Status Admit Date Acute abdominal pain in righ t flank acute August 14, 2024 11:36pm Acute hypotension acute August 042024 11:36pm Acute UTI acute August 14 11:36pm CHRIS (acute kidney injury) acute August 14, 2024 11:36pm Hematuria syndrome acute August 14, 2024 11:36pm History of prostate cancer acute August 14, 2024 11:36pm History of prostatectomy acute August 14, 2024 11:36pm Lesion of bladder acute August 042024 11:36pm Overweight (BMI 25.0-29.9) acute August 14, 2024 11:36pm Sepsis acute August 14 11:36pm Septic shock acute August 14, 2024 11:36pm Chronic radiation cystitis chronic August 14, 2024 11:36pm Bacteremia due to Gram-negat clarice bacteria resolved August 14, 2024 11:36pm UTI (urinary tract infection ) due to urinary indwelling catheter resolved August 14, 2024 11:36pm [facility] Work Phone: 1(967) 779-293403-11-2025 Radiology Diagnostic study note [facility] Imaging Services [address] [place] [address] Chest PA and Lateral MR#: [id number] Acct: [id number] Name: BARBARA MILAN MONI Rep #: [id number] : 1945 M 78 From: Jon Christopher DO PCP: Dr. Kelvin Han MD Status: REG ER Study:Chest PA and Lateral Date of Exam: 08/14/24 Exam# [id number] Ordering Dr: Teena Nicolas MD PROCEDURE: CHEST PA AND LATERAL REASON FOR EXAM: SEPSIS TECHNIQUE: Frontal and lateral views of the chest. COMPARISON: 12/21/2023 FINDINGS: Cardiomediastinal silhouette is within normal limits. Lungs are clear. No sizable pneumothorax. RAD/Chest PA and Lateral IMPRESSION: No focal airspace abnormality. Reading Location: NO CC: Dr. Kelvin Han MD; Dr. Kishore Nicolas MD ~ Mat Sewer: Signed [facility]03-11-2025 Radiology Diagnostic study note [facility] Imaging Services [address] [place], [place] [id number] Abdomen/Pelvis without Cont MR#: [id number] Acct: [id number] Name: BARBARA MILAN MONI Rep #: [id number] : 1945 M 78 From: Jon Christopher DO PCP: Dr. Kelvin Han MD Status: REG ER Study:Abdomen/Pelvis without Cont Date of Exa m: 08/14/24 Exam# [id number] Ordering Dr: Teena Nicolas MD PROCEDURE: CT abdomen and pelvis without IV contrast REASON FOR EXAM: LEFT FLANK PAIN TECHNIQUE: Multiple contiguous axial images through the abdomen and pelvis were obtained without the administration of intravenous contrast. Two-dimensional coronal and sagittal reformatted images were reconstructed. Low- dose imaging technique was utilized. COMPARISON: 02/14/2023 FINDINGS: No acute findings in the lung bases. Small hiatal hernia. Unenhanced liver, spleen, and adrenal glands are within normal limits. Gallbladder is satisfactory. No significant biliary ductal dilation. Mild/moderate right hydroureteronephrosis without an obstructing calculus. Chronic bilateral perinephric fat stranding. No renalcalculi. Stable smallhyperdense right renal cysts. Urinary bladder is decompressed and contains a Worthy suprapubic catheter. Mild perivesicularfat stranding. Distal colonic diverticulosis. No bowel obstruction, focal bowel wall thickening or significant perienteric inflammation. Normal appendix. No pelvic free fluid. No free air. Calcified nonaneurysmal abdominal aorta. No suspiciousadenopathy. Small bilateral fat containing inguinal hernias. No acute osseous abnormality. Degenerative changes of the spine. Bilateral pars defects at L5. CT/Abdomen/Pelvis without Cont IMPRESSION: 1. Mild/moderate right hydroureteronephrosis without an obstructing calculus. Underlying obstructive bladder lesion not excluded. Recommend further assessment with nonemergent CT urogram and/or direct visualization. 2. Underdistended bladder with diffuse wall thickening and mild perivesicular fat stranding. Correlate for possible cystitis. Suprapubic catheter in place. 3. Additional chronic findings as above. One or more dose reduction techniques were used (e.g., Automated exposure control, adjustment of the mA and/or kV according to patient size, use of iterative reconstruction technique). Reading Location: NO CC: Dr. Kelvin Han MD; Dr. Kishore Nicolas MD ~ Mat Sewer: Signed [facility]12-06-2024 NoteHNO ID: [id number] Author: KEIRY MICHAELS CT Service: ? Author Type: Clinical Farrowing Worker Type: Progress Notes Filed: 05/11/2024 14:03 Note Text: UNIVERSAL PROTOCOL / SAFETY CHECKLIST Procedure to be Performed: cysto Sign In: A Moment of CARE was completed. Personnel directly involved with the procedure wore the appropriate PPE (Personal Protective Equipment). Patient/Surrogate Stated/Verified: PATIENT VERIFIED(optional for EMERGENT procedures): Patient name, Date of , Relevant allergies, and The intended procedure Time Out Communication: Intended patient and procedure match the source documents. Consent documented and matches the intended procedure. Sign Out: SIGN OUT (optional for EMERGENT procedures): No specimen collected. Keiry Michaels [facility]12-06-2024 History of Present illness Narrative* Keiry Michaels CT - 05/11/2024 1:58 PM EST UNIVERSAL PROTOCOL / SAFETY CHECKLIST Procedure to be Performed: cysto Sign In: A Moment of CARE was completed. Personnel directly involved with the procedure wore the appropriate PPE (Personal Protective Equipment). Patient/Surrogate Stated/Verified: PATIENT VERIFIED(optional for EMERGENT procedures): Patient name, Date of , Relevant allergies, and The intended procedure Time Out Communication: Intended patient and procedure match the source documents. Consent documented and matches the intended procedure. Sign Out: SIGN OUT (optional for EMERGENT procedures): No specimen collected. ESDRAS Good [facility] NoteHNO ID: [id number] Author: MATT GARCIA MD Service: ? 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 In March was taken to OR for BNI Operative Findings from March -Dense stricture in the proximal membranous urethra and bladder neck (approximately 2cm in length), incised in four sites to bleeding tissue to accommodate 22 Fr cystoscope. -16 Fr SPT exchanged -Bladder mucosa diffusely friable and erythematous appearing with changes consistent with chronic indwelling catheter and radiation cystitis. Indication: bladder neck contracture, radiation cystitis Interval history: SPT working well. Has dried up - no urine output out of penis. He is actually happy to be out of depends. No hematuria. Informed consent obtained yes. Discussed RBAPC. TECHNIQUE: The procedure was fully explained to the patient, risks were reviewed. The patient was placed in the supine position. The genitalia were prepped with betadine, and the urethra was anesthetized with viscous 2% lidocaine. The flexible cystoscope was introduced into the urethra and advanced under direct vision with findings as outlined below. At the conclusion of the procedure, the cystoscope was withdrawn. FINDINGS Urethra: patent until membranous/bladder neck at which point urethra is completely obliterated The existing suprapubic tube was used to fill the bladder. The balloon was deflated and the tube removed. A new 16F worthy was inserted without difficult via the SP tract and the balloon inflated with 10mls of sterile water once position within the bladder was confirmed with return of fluid. COMPLICATIONS: None RECOMMENDATIONS: Discussed findings with patient. 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 In March was taken to OR for BNI Operative Findings from March -Dense stricture in the proximal membranous urethra and bladder neck (approximately 2cm in length),incised in four sites to bleeding tissue to accommodate 22 Fr cystoscope. -16 Fr SPT exchanged -Bladder mucosa diffusely friable and erythematous appearing with changes consistent with chronic indwelling catheter and radiation cystitis. Indication: bladder neck contracture, radiation cystitis Interval history: SPT working well. Has dried up - no urine output out of penis. He is actually happy to be out of depends. No hematuria. Informed consent obtained yes. Discussed AP. TECHNIQUE: The procedure was fully explained to the patient, risks were reviewed. The patient was placed in the supine position. The genitalia were prepped with betadine, and the urethra was anesthetized with viscous 2% lidocaine. The flexible cystoscope was introduced into the urethra and advanced under direct vision with findings as outlined below. At the conclusion of the procedure, the cystoscope was withdrawn. FINDINGS Urethra: patent until membranous/bladder neck at which point urethra is completely obliterated The existing suprapubic tube was used to fill the bladder. The balloon was deflated and the tube removed. A new 16F worthy was inserted without difficult via the SP tract and the balloon inflated [id number] of sterile water once position within the bladder was confirmed with return of fluid. COMPLICATIONS: None RECOMMENDATIONS: Discussed findings with patient. 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 In March was taken to OR for BNI Operative Findings from March -Dense stricture in the proximal membranous urethra and bladder neck (approximately 2cm in length),incised in four sites to bleeding tissue to accommodate 22 Fr cystoscope. -16 Fr SPT exchanged -Bladder mucosa diffusely friable and erythematous appearing with changes consistent with chronic indwelling catheter and radiation cystitis. Indication: bladder neck contracture, radiation cystitis Interval history: SPT working well. Has dried up - no urine output out of penis. He is actually happy to be out of depends. No hematuria. Informed consent obtained yes. Discussed RBAPC. TECHNIQUE: The procedure was fully explained to the patient, risks were reviewed. The patient was placed in the supine position. The genitalia were prepped with betadine, and the urethra was anesthetized with viscous 2% lidocaine. The flexible cystoscope was introduced into the urethra and advanced under direct vision with findings as outlined below. At the conclusion of the procedure, the cystoscope was withdrawn. FINDINGS Urethra: patent until membranous/bladder neck at which point urethra is completely obliterated The existing suprapubic tube was used to fill the bladder. The balloon was deflated and the tube removed. A new 16F worthy was inserted without difficult via the SP tract and the balloon inflated [id number] of sterile water once position within the bladder was confirmed with return of fluid. COMPLICATIONS: None RECOMMENDATIONS: Discussed findings with patient. POST PROCEDURE Condition: satisfactory Plan: Continue monthly spt exchanges locally If hematuria returns could do hbo again Discussed end stage option of cx and IC - he would like to avoid if at all possible Matt Garcia MD [facility] Nurse Note* Keiry Michaels CT - 05/11/2024 1:02 PM EST Patient ID with (2) Identifiers, Verified by: ESDRAS Good Actual procedure/procedure scheduled: Yes Performing provider/scheduled provider: Yes Patient was roomed in: Q9- 07 Research Director offered:Patient declines Patient arrived in the room at: 1302 Patient ready for procedure: 1342 The procedure started at ( Time Only): 1344 The procedure ended at: 1352 Was the procedure delayed: Yes: Provider late: Provider with other patient on Q9 ProNox Utilized: No The patient left the procedure room at: 1400 ESDRAS Good PRE PROCEDURE ASSESSMENT- Cysto Latex Allergy: No Allergies reviewed and updated. Yes Pre-Procedure Vital Signs: BP: 150/80 Pulse: 100 Heart valve replacement: No Joint replacement: Yes, L knee greater than 2 years ago Back Office UA otained: no, pt with SPT PROCEDURE PREP-Cysto Patient Prep: Betadine Placement of Sterile Drape: COMPLETED Anesthetic Given:Administered by MD - see Procedure Physician Note. Dr. Garcia replaced pt's SPT with 16F latex catheter without difficulty ESDRAS Good POST PROCEDURE NURSE ASSESSMENT Present along with physician during procedure exam. ESDRAS Good Current pain intensity is 0 on a 0-10 pain scale. ESDRAS Good AMBULATORY PATIENT EDUCATION THE FOLLOWING WAS EVALUATED Motivation To Learn: Interested Family/Significant Other Support: Unable to assess - Family not present Cognitive Ability: Alert/Oriented Method of Instruction: Individual instruction Written instruction/Handouts The Following Influencing Factors Were Barriers To This Education Session: None The Following Physical Limitations Were Barriers To This Education Session: None Instruction Provided To: Patient Podiatric Aide Present: no Discipline: Nursing Learning Topic: SURVIVAL SKILLS: Symptom Management Patient Evaluation: Verbalizes understanding: Yes Supplemental Material Given: Written Material Instructed By ESDRAS Good In Department Urology . [facility]12-06-[facility] Nurse Note* Keiry Michaels CT - 05/11/2024 1:02 PM EST Patient ID with (2) Identifiers, Verified by: ESDRAS Good Actual procedure/procedure scheduled: Yes Performing provider/scheduled provider: Yes Patient was roomed in: Q9- 07 Research Director offered:Patient declines Patient arrived in the room at: 1302 Patient ready for procedure: 1342 The procedure started at ( Time Only): 1344 The procedure ended at: 1352 Was the procedure delayed: Yes: Provider late: Provider with other patient on Q9 ProNox Utilized: No The patient left the procedure room at: 1400 ESDRAS Good PRE PROCEDURE ASSESSMENT- Cysto Latex Allergy: No Allergies reviewed and updated. Yes Pre-Procedure Vital Signs: BP: 150/80 Pulse: 100 Heart valve replacement: No Joint replacement: Yes, L knee greater than 2 years ago Back Office UA otained: no, pt with SPT PROCEDURE PREP-Cysto Patient Prep: Betadine Placement of Sterile Drape: COMPLETED Anesthetic Given:Administered by MD - see Procedure Physician Note. Dr. Garcia replaced pt's SPT with 16F latex catheter without difficulty ESDRAS Good POST PROCEDURE NURSE ASSESSMENT Present along with physician during procedure exam. ESDRAS Good Current pain intensity is 0 on a 0-10 pain scale. ESDRAS Good AMBULATORY PATIENT EDUCATION THE FOLLOWING WAS EVALUATED Motivation To Learn: Interested Family/Significant Other Support: Unable to assess - Family not present Cognitive Ability: Alert/Oriented Method of Instruction: Individual instruction Written instruction/Handouts The Following Influencing Factors Were Barriers To This Education Session: None The Following Physical Limitations Were Barriers To This Education Session: None Instruction Provided To: Patient Podiatric Aide Present: no Discipline: Nursing Learning Topic: SURVIVAL SKILLS: Symptom Management Patient Evaluation: Verbalizes understanding: Yes Supplemental Material Given: Written Material Instructed By ESDRAS Good In Department Urology . documented [facility]10-28-[facility]24 NoteHNO ID: [id number] Author: ANNABELLA ARCE APRN.CRNA Service: ? Author Type: Nurse Tag And Label Cutter Type: Anesthesia Procedure Notes Filed: 04/02/2024 13:41 Note Text: ANESTHESIOLOGY PROCEDURE NOTE Airway General Information Procedure Start Time/Medication Administration: 04/02/2024 1:20 PM Procedure End Time: 04/02/2024 1:20 PM Patient location during procedure: OR Timeout Performed Pre-procedure: timeout performed Consent Obtained: Yes Patient identity confirmed: arm band and patient Staffing Anesthesiologist: Kavin Conte MD PLATE SHEAR OPERATOR: Rubina Sawyer APRN.PLATE SHEAR OPERATOR SRNA: Leonel Orona SRNA Performed by: CLOTILDE Indications and Patient Condition Indications for airway management: anesthesia and airway protection Preoxygenated: yes anesthesia circuit Patient position: sniffing Method: asleep Cricoid Pressure: No Manual In-Line Stabilization: No Difficult Mask: No Airway Accessory: LMA Final Airway Details Final airway type: supraglottic airway Number of attempts at approach: 1 Final Supraglottic Airway: i-gel Size 4 Seal Adequate: yes Failed airway: no Unrecognized esophageal intubation: no Airway not difficult SIGNATURE: Annabella Arce APRN.CRNA PATIENT NAME: Barbara Milan DATE: April 02, 2024 TIME: 1:40 PM [id number] Tele[facility] encounter Note* Telephone Encounter - Amalia Childers MD - 03/28/2024 8:16 AM EDT Called patient about pre op abx, no answer [facility]10-23-2024 Miscellaneous Notes* Telephone Encounter - Amalia Childers MD - 03/28/2024 8:16 AM EDT Called patient about pre op abx, no answer documented [facility]09-27-2024 NoteHNO ID: [id number] Author: HAWA ZEPEDA MD Service: ? Author Type: Anesthesiologist Type: Progress Notes Filed: 03/02/2024 14:41 Note Text: Attending Note I evaluated the patient and personally participated in the hurd components. I agree with the resident's findings and plan as documented and have discussed the case and management of the patient's care with the resident. Signature: Hawa Zepeda MD Date: 03/02/2024 Time: 2:41 [facility] History of Present illness Narrative* Hawa Zepeda MD - 03/02/2024 2:41 PM EDT Attending Note I evaluated the patient and personally participated in the hurd components. I agree with the resident's findings and plan as documented and have discussed the case and management of the patient's carewith the resident. Signature: Hawa Zepeda MD Date: 03/02/2024 Time: 2:41 PM documented in [facility] encounter[facility]09-27-2024 NoteHNO ID: [id number] Author: KENYETTA GARCIA LPN Service: ? Author Type: LICENSED NURSE Type: Progress Notes Filed: 03/02/2024 11:40 Note Text: INTERMITTENT SELF CATHETERIZATION (ISC) INSTRUCTION March 02, 2024 at 11:37 AM Patient ID with two (2) identifiers verified by: Kenyetta Garcia LPN Allergies reviewed and updated: Yes Current pain intensity is: 0 on a 0-10 pain scale. Any concerns about safety in the home/falls: Not at risk for falls ISC video viewed: Yes ISC information sheet given and reviewed: Yes Catheter size :16 fr. straight Amount given: 15 Supply list given: Yes Verbalizes understanding: Yes Successful performance of ISC: No, patient will start cathing post Surgery 03/16/2024 24 hr phone number given:Yes Physician phone number given: Yes Concerns/Issues: none Kenyetta Garcia LPN AMBULATORY PATIENT EDUCATION NOTE READINESS TO LEARN COGNITIVE ABILITY: Alert and oriented MOTIVATION TO LEARN: Interested FAMILY SUPPORT: High - Very involved in pt care INSTRUCTION PROVIDED TO: Patient and Spouse PATIENT LEARNS BEST BY: Individual Instruction Verbal Instruction Videos FACTORS AFFECTING LEARNING: None PHYSICAL LIMITATIONS AFFECTING LEARNING: None LEARNING RESPONSE DIAGNOSIS: Stricture of bladder neck: METHOD OF INSTRUCTION: Individual instruction Written instruction/Handouts Verbal instruction Video PATIENT / FAMILY RESPONSE: Verbalizes understanding of: RISK FACTORS-Unique risk factors related to their disease FOLLOW-UP PLAN: Complete - No need for follow-up REFERRAL (RECOMMENDATION): None Supplies ordered and sent to [facility] medical. Electronically Signed By: Kenyetta Garcia LPN [facility] History of Present illness Narrative* Kenyetta Garcia LPN - 03/02/2024 11:37 AM EDT INTERMITTENT SELF CATHETERIZATION (ISC) INSTRUCTION March 02, 2024 at 11:37 AM Patient ID with two (2) identifiers verified by: Kenyetta Garcia LPN Allergies reviewed and updated: Yes Current pain intensity is: 0 on a 0-10 pain scale. Any concerns about safety in the home/falls: Not at risk for falls ISC video viewed: Yes ISC information sheet given and reviewed: Yes Catheter size :16 fr. straight Amount given: 15 Supply list given: Yes Verbalizes understanding: Yes Successful performance of ISC: No, patient will start cathing post Surgery 03/16/2024 24 hr phone number given:Yes Physician phone number given: Yes Concerns/Issues: none Kenyetta Garcia LPN AMBULATORY PATIENT EDUCATION NOTE READINESS TO LEARN COGNITIVE ABILITY: Alert and oriented MOTIVATION TO LEARN: Interested FAMILY SUPPORT: High - Very involved in pt care INSTRUCTION PROVIDED TO: Patient and Spouse PATIENT LEARNS BEST BY: Individual Instruction Verbal Instruction Videos FACTORS AFFECTING LEARNING: None PHYSICAL LIMITATIONS AFFECTING LEARNING: None LEARNING RESPONSE DIAGNOSIS: Stricture of bladder neck: METHOD OF INSTRUCTION: Individual instruction Written instruction/Handouts Verbal instruction Video PATIENT / FAMILY RESPONSE: Verbalizes understanding of: RISK FACTORS-Unique risk factors related totheir disease FOLLOW-UP PLAN: Complete - No need for follow-up REFERRAL (RECOMMENDATION): None Supplies ordered and sent to [address] [place] [address]. Electronically Signed By: Kenyetta Garcia LPN In Department: Urology documented in this encounter[facility]09-27-2024 Instructions* Patient Instructions* Dio Javier MD - 03/02/2024 10:13 AM EDT Images from the original note were not included. [facility] PATIENT PREOPERATIVE INSTRUCTIONS Matt Garcia MD has scheduled you for your procedure at this surgery center: [facility] Scheduling Office: [phone] --[id number] [id number]. Please read below carefully for your personalized instructions. Dietary Restrictions: - No solid food after midnight. -Can small sips of water with medications Medications: Unless instructed differently below, stay on all of your medications until your surgery. If you start any new medications after today's visit, please contact your surgeon. Pre-Surgery Med Instructions Medication Instructions terazosin (HYTRIN) 5 mg capsule Take the day of surgery with a small sip of water amLODIPine (NORVASC) 10 mg tablet Take the day of surgery with a small sip of water lisinopril (ZESTRIL, PRINIVIL) 40 mg tablet Take the morning dose the day BEFORE surgery, hold the evening dose the night before and morning dose the day of the surgery mv with [id number] (ONE-A-DAY MEN'S 50+ ADVANTAGE) 400-300-120 mcg-mcg-mg tab Stop 7 days before surgery If you start any new medications after today's visit, please contact the surgeon's office. Blood Thinning Medications: - Stop NSAIDS (Ibuprofen, Advil, Aleve, Motrin, Celebrex, Mobic, etc.) 7 days before surgery, as directed by your surgeon. - Stop Aspirin 7 days before surgery, as directed by your surgeon. Important Reminders: - Candy, mints, and tobacco products are NOT permitted the morning of surgery. - Hearing aids, dentures and glasses may be worn the morning of surgery. - NO jewelry, body piercings, makeup, hairpins or contacts are to be worn the day of surgery. If you develop symptoms such as a fever, cold, or flu, or have other changes to your health within TWO DAYS of scheduled surgery or the morning of surgery, please contact the surgery center above. Personal Belongings: -Please have photo ID and insurance cards. -If you do not have a copy of advance directives on file with us, please bring a copy with you on the day of surgery. - Leave ALL valuables and money at home or with family members. For Outpatient Procedures: - YOU MUST HAVE A RESPONSIBLE PLATFORM ATTENDANT TAKE YOU HOME. A COMPUTER EDUCATION PROFESSOR OR QUILT STUFFER CANNOT BE MADE A RESPONSIBLE PLATFORM ATTENDANT. - We recommend that a responsible person stays with you overnight to take care of you. - You cannot stay in a hotel alone after outpatient surgery. You will not be permitted to have yoursurgery, if you do not have someone to take care of you. Arrival Time for Surgery: - To obtain your arrival time for surgery, call your physician's office the day before your surgery. - If your surgery is scheduled for Tuesday, call the Tuesday before. Your surgeon s spares scheduler will tell you what time to call the office. - If you have not reached the departmental spares scheduler by 5 P.M., call [phone] after 5 P.M. the day before your surgery. Please be aware that emergency situations arise, which may delay or change your surgical time. If this happens, we will notify you as soon as possible and regret any inconvenience. If you already have an Advance Directive, please fax a copy to [phone] or email to for it to be added to your chart. If you do not have an Advance Directive, you can find the appropriate form and more information at [email or web address]. We recommend that youcomplete the Advance Directive form found on the website and bring it with you the day of your surgery. It can be witnessed and scanned into your chart that day. Dio Javier MD [facility] History and physical note * Dio Javier MD - 03/02/2024 9:41 AM EDT Images from the original note were not included. [facility] HISTORY AND PHYSICAL EXAMINATION SERVICE DATE: 03/02/2024 SERVICE TIME: 10:56 AM PRIMARY CARE PHYSICIAN: Kelvin Han MD Assessment Patient has the following medical conditions which may affect christopher-operative course: Mini Cog Score: 4 Prostate cancer -Prostate cancer s/p prostatectomy 2011 and radiation 2015 + ADT (androgen deprivation therapy) -Flexible cystoscopy bladder neck incision on 03/12/[address] Garcia for stricture of the bladder neck -Suprapubic catheter in place Gross hematuria -Has been experiencing hematuria and urinary retention this past year - multiple ED visits -Completed outpatient hyperbaric oxygen therapy 03/01 at [facility] for hematuria/friable, bleeding mucosa over the bladder neck seen on cysto -Has had additional clot evacs and bladder neck incisions this past year at [facility], had laser BNI November 13 2023 -Recent Admission early February at [facility] for gross hematuria- underwent cystoscopy on 02/11for clot evacuation, fulguration, bladder bx, cystogram -No hematuria for the past week BENIGN HYPERTENSION -On lisinopril 40mg BID, amlodipine 10mg, terazosin 5mg every afternoon Qiu Activity Status Index: METS: Walk indoors, such as around the house (1.75 METs) Do light work around the house, such as dusting or washing dishes (2.70 METs) Take care of self; that is eating, dressing, bathing, using the toilet (2.75 METs) Walk a block or two on level ground (2.75 METs) Do moderate work around the house, such as vacuuming, sweeping floors, or carrying in groceries (3.50 METs) Do yardwork, such as raking leaves, weeding, or pushing a power mower (4.50 METs) Have sexual relations (5.25 METs) Climb a flight of stairs or walk up a hill (5.50 METs) Participate in moderate recreational activites, such as golf, bowling, dancing, doubles tennis, or throwing a baseball or football (6.00 METs) DASI Score: 34.7 Patient denies any chest pain or undue shortness of breath with the above physical activity. STOP-Bang Score: Has or is being treated for high blood pressure Patient over 50 years old Has a large neck Male patient Denies snoring loudly Denies feeling tired, fatigued, or sleepy during the daytime Has not been observed to stop breathing or choking/gasping during sleep BMI less than or equal to 35 kg/m^2 STOP-Bang Score: 4 [id number] Score: Hypertension history: Yes [id number] Score: ANESTHESIA FINDINGS: Intubation History: No abnormal airway history Significant Anesthesia Considerations: none Airway History: No abnormal airway history I - PHYSICAL EVALUATION AIRWAY Patient intubated: No. Tracheostomy tube not present Mallampati: III. TM distance: <3 FB. Neck ROM: limited flexion and extension. Mouth opening: adequate. Short neck: no. Thick neck: yes Vicente present: no Lip Bite Test: II Microretrognathia/Micronagthia/Recessed Chin: No DENTAL Dental findings: missing tooth/teeth. Additional comments: Upper and lower molars bilaterally. II - ANESTHESIA PLAN Beta Carlita Monitoring Plan Post Procedure Analgesic Plan Patient / Surrogate agrees to blood products: Yes Prepared for Surgery: optimally prepared for surgery, pending [see comment]. - Pending lab work- CBC, CMP, urine culture today -Last EKG last year CONSULTS: Patient does not require consults for optimization at this time Planned Anesthetic: The Following Tests/Procedures Have Been Initiated: No orders of the defined types were placed in this encounter. REASON FOR VISIT: Barbara Milan is a 78 year old male who is scheduled for Procedure(s): CYSTOSCOPY FLEXIBLE (N/A) INCISION BLADDER NECK (N/A) at the request of Matt Garcia MD for consultation. My final recommendation will be communicated back to the requesting physician by way of shared medical recordor letter. Subjective The patient has the following: COVID-19 Immunization Status Overdue - Covid-19 Vaccine (2023- season) Overdue since 02/05/2024 07/29/2023 Imm Admin: COVID-19 vaccine, age 12+ yr, season (CDC Software) 03/06/2022 Outside Immunization: COVID-19, mRNA, LNP-S, PF, 100 mcg/0.5mL dose or 50 mcg/0.25mL dose 03/01/2022 Imm Admin: COVID-19 vaccine, age 12+ yr, bivalent (MODERNA) Only the first 3 history entries have been loaded, but more history exists. CHIEF COMPLAINT: Anesthesia Pre-op evaluation HPI: Favian Milan is a 78 year old male with PMH of htn, CKD, prostate cancer s/p prostatectomy 2011 and radiation 2015 + ADT (androgen deprivation therapy) Flexible cystoscopy bladder neck incision on 03/12/[address] Garcia for stricture of the bladder neck. REVIEW OF SYSTEMS: General: No weight loss, malaise or fevers. Negative for: unintentional weight change, malaise and fever. Neurological: Negative for: headaches, impaired sensorium, seizures, TIA and strokes. Respiratory: Negative for: asthma, COPD, current cough, dyspnea, pneumonia within 6 weeks, tobacco use, URI <2 weeks and obstructive sleep apnea. Cardiovascular: Positive for: hypertension Negative for: angina, anticoagulation therapy, arrhythmia, CAD, chest pain, CHF, congenital heart defect, DVT/PE, hyperlipidemia, murmur/valvular heart disease and PVD. GI: Negative for: abdominal pain, GERD, liver disease, nausea, vomiting and ETOH >2 drinks/day. : Has a suprapubic catheter, no hematuria for a week Negative for: hematuria and nephrolithiasis. Endocrine: Negative for: diabetes mellitus, hyperthyroidism, hypothyroidism and steroid for chronic problem. Hematology: No history of bleeding or clotting disorder. Patient is not taking anti-coagulation or platelet medications. No history of hematological symptoms or problems. Oncology: History of prostate cancer s/p prostatectomy 2011 Negative for: chemo within 30 days and radiotherapy within 90 days. Psych: No history of psychiatric symptoms or problems. Musculoskeletal: Negative for joint pain or swelling, back pain or muscle pain. Negative for: joint pain. Skin: Negative for lesions, rash and itching. PAST MEDICAL HISTORY Diagnosis Date Benign neoplasm of colon Diverticulosis of colon (without mention of hemorrhage) Elevated prostate specific antigen (PSA) Essential hypertension, benign Internal hemorrhoids without mention of complication Osteoarthrosis, unspecified whether generalized or localized, unspecified site LEFT KNEE Prostate cancer (HCC) Snoring PAST SURGICAL HISTORY Procedure Laterality Date ARTHRP KNE CONDYLE&PLATU MEDIAL&LAT COMPARTMENTS Left 02/2013 Knee replacement, total COLONOSCOPY FLX DX W/COLLJ SPEC WHEN PFRMD 11/21/2015 Colonoscopy COLONOSCOPY W/BIOPSY SINGLE/MULTIPLE 10/03/2006 CYSTOURETHROSCOPY,FULGUR .5-2CM LESN 02/11/2023 PROSTATE BIOPSY 09/2007 Dr Figueredo ROBOTIC SURGERY PROCEDURE 09/01/2011 prostatectomy. TONSILLECTOMY & ADENOIDECTOMY FAMILY HISTORY Problem Relation Age of Onset Hypertension Mother Stroke Father Social History Tobacco Use Smoking status: Never Smokeless tobacco: Never Substance Use Topics Alcohol use: No Drug use: No Prior to Admission medications as of 03/02/24 0952 Medication Sig Last Dose Taking terazosin (HYTRIN) 5 mg capsule Take 1 capsule by mouth every afternoon. Taking Yes amLODIPine (NORVASC) 10 mg tablet Take 1 tablet by mouth once daily. Taking Yes lisinopril (ZESTRIL, PRINIVIL) 40 mg tablet Take 1 tablet by mouth twice daily. Taking Yes mv with dxv-[id number]-tdiqtbmd-ginkgo (ONE-A-DAY MEN'S 50+ ADVANTAGE) 400-300-120 mcg-mcg-mg tab Take 1 tablet by mouth once daily. Taking Yes furosemide (LASIX) 20 mg tablet Take 20 mg by mouth every morning. Patient not taking: Reported on 02/24/2024 Not Taking leuprolide (LUPRON DEPOT, 4 MONTH,) 30 mg injection Inject 30 mg intramuscularly every 4 months. Patient not taking: Reported on 12/16/2023 Not Taking leuprolide (LUPRON DEPOT, 4 MONTH,) 30 mg injection Inject 30 mg intramuscularly every 4 months. Patient not taking: Reported on 12/16/2023 Not Taking leuprolide (LUPRON DEPOT, 4 MONTH,) 30 mg injection Inject 30 mg intramuscularly every 4 months. Patient not taking: Reported on 12/16/2023 Not Taking ASPIRIN 81 MG ORAL TAB Take one (1) tablet daily . Patient not taking: Reported on 12/16/2023 Not Taking No medication comments found. ALLERGIES Allergen Reactions 8-Aminoquinolines Atenolol Unknown Tremors Hydrochlorothiazide Unknown Indocin [Indomethac* GI Upset Losartan Potassium Hives Sulfa (Sulfonamide * Hives Objective PHYSICAL EXAM: General: alert and oriented. Pertinent negatives noted - not distressed. Skin: normal color, no rash or lesions. HEENT: EOM intact and pupils equal round. Pertinent negatives noted - no carotid bruit. Cardiovascular: regular rate and rhythm, normal S1 and S2, no rub, murmurs, or gallop. Respiratory: normal breath sounds, no wheezes or crackles. No chest wall deformity or tenderness. Abdomen: bowel sounds present and soft. Pertinent negatives noted - not tender. Supra pubic catheter in place. Extremities: no deformity, no edema or tenderness, no joint swelling or clubbing. Neurological: normal cognition and motor skills. Gait normal. No weakness or sensory deficit. PAIN ASSESSMENT: VITALS: BP 119/61 Pulse 96 Temp (Src) 97 (Temporal) Resp 22 Ht 5' 9 (1.75m) Wt 188 lb 7.9 oz (85.5kg) SpO2 99% BMI 27.82 kg/(m^2). Diagnostic tests reviewed for today's visit: Lab Value Units Date High Low HB No results within date range. HCT No results within date range. WBC No results within date range. PLT No results within date range. NA No results within date range. K No results within date range. GLUC No results within date range. BUN No results within date range. CREAT No results within date range. PTSEC No results within date range. INR No results within date range. APTT No results within date range. ALT No results within date range. AST No results within date range. TBILI No results within date range. TSH No results within date range. Lab Value Units Date High Low HCGQT No results within date range. UHCG No results within date range. HCG, BODY* No results within date range. Lab Value Units Date High Low ABORHD No results within date range. ABSCREEN No results within date range. Hemoglobin A1C (%) Date Value 09/11/2015 5.9 09/12/2014 6.2 02/27/2014 6.0 07/31/2012 6.0 No results found for this or any previous visit (from the past 8760 hour(s)). No results found for this or any previous visit (from the past 58146 hour(s)). Instructions Given to Patient: Instructions located in the after visit summary. Patient given verbal and written preop instructions and voices comprehension and compliance. SIGNATURE: Dio Javier MD PATIENT NAME: Barbara Milan DATE: March 02, 2024 TIME: 9:41 AM PAGER/CONTACT #: [facility]09-27-[facility] History and physical note* Dio Javier MD - 03/02/2024 9:41 AM EDT Images from the original note were not included. [facility] HISTORY AND PHYSICAL EXAMINATION SERVICE DATE: 03/02/2024 SERVICE TIME: 10:56 AM PRIMARY CARE PHYSICIAN: Kelvin Han MD Assessment Patient has the following medical conditions which may affect christopher-operative course: Mini Cog Score: 4 Prostate cancer -Prostate cancer s/p prostatectomy 2011 and radiation 2015 + ADT (androgen deprivation therapy) -Flexible cystoscopy bladder neck incision on 03/12/[address] Garcia for stricture of the bladder neck -Suprapubic catheter in place Gross hematuria -Has been experiencing hematuria and urinary retention this past year - multiple ED visits -Completed outpatient hyperbaric oxygen therapy 03/01 at [facility] for hematuria/friable, bleeding mucosa over the bladder neck seen on cysto -Has had additional clot evacs and bladder neck incisions this past year at [facility], had laser BNI November 13 2023 -Recent Admission early February at [facility] for gross hematuria- underwent cystoscopy on 02/11for clot evacuation, fulguration, bladder bx, cystogram -No hematuria for the past week BENIGN HYPERTENSION -On lisinopril 40mg BID, amlodipine 10mg, terazosin 5mg every afternoon Qiu Activity Status Index: METS: Walk indoors, such as around the house (1.75 METs) Do light work around the house, such as dusting or washing dishes (2.70 METs) Take care of self; that is eating, dressing, bathing, using the toilet (2.75 METs) Walk a block or two on level ground (2.75 METs) Do moderate work around the house, such as vacuuming, sweeping floors, or carrying in groceries (3.50 METs) Do yardwork, such as raking leaves, weeding, or pushing a power mower (4.50 METs) Have sexual relations (5.25 METs) Climb a flight of stairs or walk up a hill (5.50 METs) Participate in moderate recreational activites, such as golf, bowling, dancing, doubles tennis, or throwing a baseball or football (6.00 METs) DASI Score: 34.7 Patient denies any chest pain or undue shortness of breath with the above physical activity. STOP-Bang Score: Has or is being treated for high blood pressure Patient over 50 years old Has a large neck Male patient Denies snoring loudly Denies feeling tired, fatigued, or sleepy during the daytime Has not been observed to stop breathing or choking/gasping during sleep BMI less than or equal to 35 kg/m^2 STOP-Bang Score: 4 [id number] Score: Hypertension history: Yes [id number] Score: ANESTHESIA FINDINGS: Intubation History: No abnormal airway history Significant Anesthesia Considerations: none Airway History: No abnormal airway history I - PHYSICAL EVALUATION AIRWAY Patient intubated: No. Tracheostomy tube not present Mallampati: III. TM distance: <3 FB. Neck ROM: limited flexion and extension. Mouth opening: adequate. Short neck: no. Thick neck: yes Vicente present: no Lip Bite Test: II Microretrognathia/Micronagthia/Recessed Chin: No DENTAL Dental findings: missing tooth/teeth. Additional comments: Upper and lower molars bilaterally. II - ANESTHESIA PLAN Beta Carlita Monitoring Plan Post Procedure Analgesic Plan Patient / Surrogate agrees to blood products: Yes Prepared for Surgery: optimally prepared for surgery, pending [see comment]. - Pending lab work- CBC, CMP, urine culture today -Last EKG last year CONSULTS: Patient does not require consults for optimization at this time Planned Anesthetic: The Following Tests/Procedures Have Been Initiated: No orders of the defined types were placed in this encounter. REASON FOR VISIT: Barbara Milan is a 78 year old male who is scheduled for Procedure(s): CYSTOSCOPY FLEXIBLE (N/A) INCISION BLADDER NECK (N/A) at the request of Matt Garcia MD for consultation. My final recommendation will be communicated back to the requesting physician by way of shared medical recordor letter. Subjective The patient has the following: COVID-19 Immunization Status Overdue - Covid-19 Vaccine () Overdue since 02/05/2024 07/29/2023 Imm Admin: COVID-19 vaccine, age 12+ yr, season (CDC Software) 03/06/2022 Outside Immunization: COVID-19, mRNA, LNP-S, PF, 100 mcg/0.5mL dose or 50 mcg/0.25mL dose 03/01/2022 Imm Admin: COVID-19 vaccine, age 12+ yr, bivalent (MODERNA) Only the first 3 history entries have been loaded, but more history exists. CHIEF COMPLAINT: Anesthesia Pre-op evaluation HPI: Favian Milan is a 78 year old male with PMH of htn, CKD, prostate cancer s/p prostatectomy 2011 and radiation 2015 + ADT (androgen deprivation therapy) Flexible cystoscopy bladder neck incision on 03/12/[address] Garcia for stricture of the bladder neck. REVIEW OF SYSTEMS: General: No weight loss, malaise or fevers. Negative for: unintentional weight change, malaise and fever. Neurological: Negative for: headaches, impaired sensorium, seizures, TIA and strokes. Respiratory: Negative for: asthma, COPD, current cough, dyspnea, pneumonia within 6 weeks, tobacco use, URI <2 weeks and obstructive sleep apnea. Cardiovascular: Positive for: hypertension Negative for: angina, anticoagulation therapy, arrhythmia, CAD, chest pain, CHF, congenital heart defect, DVT/PE, hyperlipidemia, murmur/valvular heart disease and PVD. GI: Negative for: abdominal pain, GERD, liver disease, nausea, vomiting and ETOH >2 drinks/day. : Has a suprapubic catheter, no hematuria for a week Negative for: hematuria and nephrolithiasis. Endocrine: Negative for: diabetes mellitus, hyperthyroidism, hypothyroidism and steroid for chronic problem. Hematology: No history of bleeding or clotting disorder. Patient is not taking anti-coagulation or platelet medications. No history of hematological symptoms or problems. Oncology: History of prostate cancer s/p prostatectomy 2011 Negative for: chemo within 30 days and radiotherapy within 90 days. Psych: No history of psychiatric symptoms or problems. Musculoskeletal: Negative for joint pain or swelling, back pain or muscle pain. Negative for: joint pain. Skin: Negative for lesions, rash and itching. PAST MEDICAL HISTORY Diagnosis Date Benign neoplasm of colon Diverticulosis of colon (without mention of hemorrhage) Elevated prostate specific antigen (PSA) Essential hypertension, benign Internal hemorrhoids without mention of complication Osteoarthrosis, unspecified whether generalized or localized, unspecified site LEFT KNEE Prostate cancer (HCC) Snoring PAST SURGICAL HISTORY Procedure Laterality Date ARTHRP KNE CONDYLE&PLATU MEDIAL&LAT COMPARTMENTS Left 02/2013 Knee replacement, total COLONOSCOPY FLX DX W/COLLJ SPEC WHEN PFRMD 11/21/2015 Colonoscopy COLONOSCOPY W/BIOPSY SINGLE/MULTIPLE 10/03/2006 CYSTOURETHROSCOPY,FULGUR .5-2CM LESN 02/11/2023 PROSTATE BIOPSY 09/2007 Dr Figueredo ROBOTIC SURGERY PROCEDURE 09/01/2011 prostatectomy. TONSILLECTOMY & ADENOIDECTOMY <AGE 12 FAMILY HISTORY Problem Relation Age of Onset Hypertension Mother Stroke Father Social History Tobacco Use Smoking status: Never Smokeless tobacco: Never Substance Use Topics Alcohol use: No Drug use: No Prior to Admission medications as of 03/02/24 0952 Medication Sig Last Dose Taking terazosin (HYTRIN) 5 mg capsule Take 1 capsule by mouth every afternoon. Taking Yes amLODIPine (NORVASC) 10 mg tablet Take 1 tablet by mouth once daily. Taking Yes lisinopril (ZESTRIL, PRINIVIL) 40 mg tablet Take 1 tablet by mouth twice daily. Taking Yes mv with xpb-UK-sjlsljbe-ginkgo (ONE-A-DAY MEN'S 50+ ADVANTAGE) 400-300-120 mcg-mcg-mg tab Take 1 tablet by mouth once daily. Taking Yes furosemide (LASIX) 20 mg tablet Take 20 mg by mouth every morning. Patient not taking: Reported on 02/24/2024 Not Taking leuprolide (LUPRON DEPOT, 4 MONTH,) 30 mg injection Inject 30 mg intramuscularly every 4 months. Patient not taking: Reported on 12/16/2023 Not Taking leuprolide (LUPRON DEPOT, 4 MONTH,) 30 mg injection Inject 30 mg intramuscularly every 4 months. Patient not taking: Reported on 12/16/2023 Not Taking leuprolide (LUPRON DEPOT, 4 MONTH,) 30 mg injection Inject 30 mg intramuscularly every 4 months. Patient not taking: Reported on 12/16/2023 Not Taking ASPIRIN 81 MG ORAL TAB Take one (1) tablet daily . Patient not taking: Reported on 12/16/2023 Not Taking No medication comments found. ALLERGIES Allergen Reactions 8-Aminoquinolines Atenolol Unknown Tremors Hydrochlorothiazide Unknown Indocin [Indomethac* GI Upset Losartan Potassium Hives Sulfa (Sulfonamide * Hives Objective PHYSICAL EXAM: General: alert and oriented. Pertinent negatives noted - not distressed. Skin: normal color, no rash or lesions. HEENT: EOM intact and pupils equal round. Pertinent negatives noted - no carotid bruit. Cardiovascular: regular rate and rhythm, normal S1 and S2, no rub, murmurs, or gallop. Respiratory: normal breath sounds, no wheezes or crackles. No chest wall deformity or tenderness. Abdomen: bowel sounds present and soft. Pertinent negatives noted - not tender. Supra pubic catheter in place. Extremities: no deformity, no edema or tenderness, no joint swelling or clubbing. Neurological: normal cognition and motor skills. Gait normal. No weakness or sensory deficit. PAIN ASSESSMENT: VITALS: BP 119/61 Pulse 96 Temp (Src) 97 (Temporal) Resp 22 Ht 5' 9 (1.75m) Wt 188 lb 7.9 oz (85.5kg) SpO2 99% BMI 27.82 kg/(m^2). Diagnostic tests reviewed for today's visit: Lab Value Units Date High Low HB No results within date range. HCT No results within date range. WBC No results within date range. PLT No results within date range. NA No results within date range. K No results within date range. GLUC No results within date range. BUN No results within date range. CREAT No results within date range. PTSEC No results within date range. INR No results within date range. APTT No results within date range. ALT No results within date range. AST No results within date range. TBILI No results within date range. TSH No results within date range. Lab Value Units Date High Low HCGQT No results within date range. UHCG No results within date range. HCG, BODY* No results within date range. Lab Value Units Date High Low ABORHD No results within date range. ABSCREEN No results within date range. Hemoglobin A1C (%) Date Value 09/11/2015 5.9 09/12/2014 6.2 02/27/2014 6.0 07/31/2012 6.0 No results found for this or any previous visit (from the past 8760 hour(s)). No results found for this or any previous visit (from the past 81919 hour(s)). Instructions Given to Patient: Instructions located in the after visit summary. Patient given verbal and written preop instructions and voices comprehension and compliance. SIGNATURE: Dio Javier MD PATIENT NAME: Barbara Milan DATE: March 02, 2024 TIME: 9:41 AM PAGER/CONTACT #: [facility] Telephone encounter Note * Telephone Encounter - Amalia Shah RN - 02/28/2024 8:07 AM EDT Called and spoke to patient and spouse regarding their concerns. Patient expressing anxiety regarding the need to self cath after surgery as he has never done so before. Informed him that we would schedule pre ops and teaching before surgery and then schedule a refresher course with me after surgery. Supplies will be provided. Patient states understanding of plan. Amalia Shah RN ----- Message from Erin Toro MA sent at 02/27/2024 8:35 AM EDT ----- Regarding: RE: Surgery date She has some clinical questions that I can't answer. Not sure what HBOT is? Questions re self catherization Thanks Erin ----- Message ----- From: Amalia Shah RN Sent: 02/27/2024 8:30 AM EDT To: Erin Kraft MA; Matt Garcia MD Subject: RE: Surgery date If she is talking about HBOT, then she has to call [phone] to scheduled an assessment with their providers. The locations available are [place], [place], [place], [place], [place], [facility]. Can you call and let her know? I can call in between patients. ANA PAULA ----- Message ----- From: Erin Kraft MA Sent: 02/27/2024 8:05 AM EDT To: Amalia Shah RN; Matt Garcia MD Subject: Surgery date Patient called states she was told he can have surgery on 03/12 Patient wants to speak with a nurse and get this scheduled an also has some questions . Thanks Erin [facility] Work Phone: [phone]) 547-485009-24-2024 Miscellaneous Notes* Telephone Encounter - Amalia Shah RN - 02/28/2024 8:07 AM EDT Called and spoke to patient and spouse regarding their concerns. Patient expressing anxiety regarding the need to self cath after surgery as he has never done so before. Informed him that we would schedule pre ops and teaching before surgery and then schedule a refresher course with me after surgery. Supplies will be provided. Patient states understanding of plan. Amalia Shah RN ----- Message from Erin Toro MA sent at 02/27/2024 8:35 AM EDT ----- Regarding: RE: Surgery date She has some clinical questions that I can't answer. Not sure what HBOT is? Questions re self catherization Thanks Erin ----- Message ----- From: Amalia Shah RN Sent: 02/27/2024 8:30 AM EDT To: Erin Kraft MA; Matt Garcia MD Subject: RE: Surgery date If she is talking about HBOT, then she has to call [phone] to scheduled an assessment with their providers. The locations available are [place], [place], [place], [place], [place], [facility]. Can you call and let her know? I can call in between patients. MAV ----- Message ----- From: Erin Kraft MA Sent: 02/27/2024 8:05 AM EDT To: Amalia Shah RN; Matt Garcia MD Subject: Surgery date Patient called states she was told he can have surgery on 03/12 Patient wants to speak with a nurse and get this scheduled an also has some questions . Manda Khan documented [facility] NoteHNO ID: [id number] Author: OSCAR HURT RN Service: ? Author Type: Registered Nurse Type: Progress Notes Filed: 02/24/2024 13:52 Note Text: UNIVERSAL PROTOCOL / SAFETY CHECKLIST Procedure to be Performed: Cystoscopy and SPT Change Sign In: A Moment of CARE was completed. Personnel directly involved with the procedure wore the appropriate PPE (Personal Protective Equipment). No special equipment needed. Patient/Surrogate Stated/Verified: PATIENT VERIFIED(optional for EMERGENT procedures): Patient name, Date of , Relevant allergies, and The intended procedure Time Out Communication: Intended patient and procedure match the source documents. Consent documented and matches the intended procedure. Relevant labs, photos, and/or imaging studies have been reviewed. Correct side/site marked and visible. No medications required for procedure. Fire risk assessed and interventions discussed. No implant(s) inserted. Sign Out: SIGN OUT (optional for EMERGENT procedures): No specimen collected. All instruments, equipment, possible retained foreign bodies accounted for. Post-procedure follow-up management communicated and Plan of Care Visit completed when applicable. [facility] History of Present illness Narrative* Oscar Hurt RN - 02/24/2024 1:51 PM EDT UNIVERSAL PROTOCOL / SAFETY CHECKLIST Procedure to be Performed: Cystoscopy and SPT Change Sign In: A Moment of CARE was completed. Personnel directly involved with the procedure wore the appropriate PPE (Personal Protective Equipment). No special equipment needed. Patient/Surrogate Stated/Verified: PATIENT VERIFIED(optional for EMERGENT procedures): Patient name, Date of , Relevant allergies, and The intended procedure Time Out Communication: Intended patient and procedure match the source documents. Consent documented and matches the intended procedure. Relevant labs, photos, and/or imaging studies have been reviewed. Correct side/site marked and visible. No medications required for procedure. Fire risk assessed and interventions discussed. No implant(s) inserted. Sign Out: SIGN OUT (optional for EMERGENT procedures): No specimen collected. All instruments, equipment, possible retained foreign bodies accounted for. Post-procedure follow-up management communicated and Plan of Care Visit completed when applicable. Oscar Hurt RN documented in [facility] Instructions* Patient Instructions* Matt Garcia MD - 02/24/2024 1:39 PM EDT Cystoscopy showed scar tissue at the bladder neck Options would be - stay with the suprapubic tube - do a bladder neck incision - short surgery through the urethral to cut the scar tissue open. Would go home same day with a worthy in for 3 days. After this there would be a risk of the scar tissuecoming back. We could have you catheterize yourself a few times a week to keep this open. There is a rare risk of other complications from repeated endoscopic interventions in a case like this. I canschedule you for this soon - Maybe 03/12 - we also talked about doing a cystectomy with ileal conduit if the current options are not manageable. This is a large surgery where we remove the bladder and make a stoma out of intestine. I don't think we're there yet but it is an option documented in this encounter[facility] Nurse Note* Oscar Hurt RN - 02/24/2024 12:38 PM EDT Actual procedure/procedure scheduled: Yes Performing provider/scheduled provider: Yes Patient was roomed in: Q9- 11 Research Director offered:Patient declines Patient arrived in the room at: 1245 Patient ready for procedure: 1308 The procedure started at ( Time Only): 1315 The procedure ended at: 1320 Was the procedure delayed: No The patient left the procedure room at: 1348 Oscar Hurt RN PRE PROCEDURE ASSESSMENT- Cysto Procedure Indication: Cystoscopy Latex Allergy: No Allergies reviewed and updated. Yes Pre-Procedure Vital Signs: BP: 109/74 Pulse: 94 Heart valve replacement: No Joint replacement: Yes, left knee 12 yrs ago Back Office UA otained: yes PROCEDURE PREP-Cysto Patient ID with two(2)identifiers verified by: Oscar Hurt RN Pre-Procedure Antibiotics: None taken at home nor prior to procedure Patient Prep: Patient has a 16 fr Latex sp catheter which was removed without difficulty after removing 10ccs of sterile water from balloon. Betadine Scrub to suprapubic insertion site perineum and placement of Sterile Drape. COMPLETED Anesthetic Given:Administered by MD - see Procedure Physician Note. Oscar Hurt RN UNIVERSAL PROTOCOL / SAFETY CHECKLIST Procedure to be performed: Cystoscopy Sign in Communication: Completed Time Out: Team Confirms the Correct Patient, Correct Procedure, Correct Site and Site Marking, Correct Position (if applicable). Sign Out Discussion: Completed Oscar Hurt RN POST PROCEDURE NURSE ASSESSMENT Present along with physician during procedure exam. Oscar Hurt RN Instruction sheet given and reviewed and patient verbalizes understanding: yes A new 16 fr latex catheter inserted in to suprapubic site by Dr Carlo Hall, balloon inflated with sterile water 10 ccs and catheter attached to an overnight bag. Patient tolerated the procedure well. Post Procedure Antibiotic: none Current pain intensity is 0 on a 0-10 pain scale. Oscar Hurt RN AMBULATORY PATIENT EDUCATION THE FOLLOWING WAS EVALUATED Motivation To Learn: Interested Family/Significant Other Support: Unable to assess - Family not present Cognitive Ability: Alert/Oriented Method of Instruction: Individual instruction Written instruction/Handouts Verbal instruction The Following Influencing Factors Were Barriers To This Education Session: None The Following Physical Limitations Were Barriers To This Education Session: None Instruction Provided To: Patient Podiatric Aide Present: not applicable Discipline: Nursing Learning Topic: SURVIVAL SKILLS: Complication Prevention Symptom Management Patient Evaluation: Verbalizes understanding: Yes Supplemental Material Given: Written Material Instructed By Oscar Hurt RN In Department Urology . [facility]09-20-[facility] Nurse Note* Oscar Hurt RN - 02/24/2024 12:38 PM EDT Actual procedure/procedure scheduled: Yes Performing provider/scheduled provider: Yes Patient was roomed in: Q9- 11 Research Director offered:Patient declines Patient arrived in the room at: 1245 Patient ready for procedure: 1308 The procedure started at ( Time Only): 1315 The procedure ended at: 1320 Was the procedure delayed: No The patient left the procedure room at: 1348 Oscar Hurt RN PRE PROCEDURE ASSESSMENT- Cysto Procedure Indication: Cystoscopy Latex Allergy: No Allergies reviewed and updated. Yes Pre-Procedure Vital Signs: BP: 109/74 Pulse: 94 Heart valve replacement: No Joint replacement: Yes, left knee 12 yrs ago Back Office UA otained: yes PROCEDURE PREP-Cysto Patient ID with two(2)identifiers verified by: Oscar Hurt RN Pre-Procedure Antibiotics: None taken at home nor prior to procedure Patient Prep: Patient has a 16 fr Latex sp catheter which was removed without difficulty after removing 10ccs of sterile water from balloon. Betadine Scrub to suprapubic insertion site perineum and placement of Sterile Drape. COMPLETED Anesthetic Given:Administered by MD - see Procedure Physician Note. Oscar Hurt RN UNIVERSAL PROTOCOL / SAFETY CHECKLIST Procedure to be performed: Cystoscopy Sign in Communication: Completed Time Out: Team Confirms the Correct Patient, Correct Procedure, Correct Site and Site Marking, Correct Position (if applicable). Sign Out Discussion: Completed Oscar Hurt RN POST PROCEDURE NURSE ASSESSMENT Present along with physician during procedure exam. Oscar Hurt RN Instruction sheet given and reviewed and patient verbalizes understanding: yes A new 16 fr latex catheter inserted in to suprapubic site by Dr Carlo Hall, balloon inflated with sterile water 10 ccs and catheter attached to an overnight bag. Patient tolerated the procedure well. Post Procedure Antibiotic: none Current pain intensity is 0 on a 0-10 pain scale. Oscar Hurt RN AMBULATORY PATIENT EDUCATION THE FOLLOWING WAS EVALUATED Motivation To Learn: Interested Family/Significant Other Support: Unable to assess - Family not present Cognitive Ability: Alert/Oriented Method of Instruction: Individual instruction Written instruction/Handouts Verbal instruction The Following Influencing Factors Were Barriers To This Education Session: None The Following Physical Limitations Were Barriers To This Education Session: None Instruction Provided To: Patient Podiatric Aide Present: not applicable Discipline: Nursing Learning Topic: SURVIVAL SKILLS: Complication Prevention Symptom Management Patient Evaluation: Verbalizes understanding: Yes Supplemental Material Given: Written Material Instructed By Oscar Hurt RN In Department Urology . documented in this encounter[facility]09-[facility]24 NoteHNO ID: [id number] Author: MATT GARCIA MD Service: ? 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 Last cysto in December: 3cm stenosis just proximal to the external sphincter 20F worthy was removed immediately prior to cystoscopy small capacity, radiation cystitis, bullous edema from catheter Plan at that time was HBO Since then he had a SPT placed He has done 29 sessions of hbo Indication: bladder neck contracture, radiation cystitis Informed consent obtained yes. Discussed RBAPC. TECHNIQUE: The procedure was fully explained to the patient, risks were reviewed. The patient was placed in the supine position. The genitalia were prepped with betadine, and the urethra was anesthetized with viscous 2% lidocaine. The flexible cystoscope was introduced into the urethra and advanced under direct vision with findings as outlined below. At the conclusion of the procedure, the cystoscope was withdrawn. FINDINGS Normal until proximal bulb Tight stricture, nearly obliterated with pinpoint lumen at VUAS Scope passed via SPT Small capacity radiated bladder with fluffy debris at bladder neck SPT replaced COMPLICATIONS: None RECOMMENDATIONS: Discussed findings with patient. 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 Last cysto in December: 3cm stenosis just proximal to the external sphincter 20F worthy was removed immediately prior to cystoscopy small capacity, radiation cystitis, bullous edema from catheter Plan at that time was HBO Since then he had a SPT placed He has done 29 sessions of hbo Indication: bladder neck contracture, radiation cystitis Informed consent obtained yes. Discussed RBAPC. TECHNIQUE: The procedure was fully explained to the patient, risks were reviewed. The patient was placed in the supine position. The genitalia were prepped with betadine, and the urethra was anesthetized with viscous 2% lidocaine. The flexible cystoscope was introduced into the urethra and advanced under direct vision with findings as outlined below. At the conclusion of the procedure, the cystoscope was withdrawn. FINDINGS Normal until proximal bulb Tight stricture, nearly obliterated with pinpoint lumen at VUAS Scope passed via SPT Small capacity radiated bladder with fluffy debris at bladder neck SPT replaced COMPLICATIONS: None RECOMMENDATIONS: Discussed findings with patient. 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 Last cysto in December: 3cm stenosis just proximal to the external sphincter 20F worthy was removed immediately prior to cystoscopy small capacity, radiation cystitis, bullous edema from catheter Plan at that time was HBO Since then he had a SPT placed He has done 29 sessions of hbo Indication: bladder neck contracture, radiation cystitis Informed consent obtained yes. Discussed RBAPC. TECHNIQUE: The procedure was fully explained to the patient, risks were reviewed. The patient was placed in the supine position. The genitalia were prepped with betadine, and the urethra was anesthetized with viscous 2% lidocaine. The flexible cystoscope was introduced into the urethra and advanced under direct vision with findings as outlined below. At the conclusion of the procedure, the cystoscope was withdrawn. FINDINGS Normal until proximal bulb Tight stricture, nearly obliterated with pinpoint lumen at VUAS Scope passed via SPT Small capacity radiated bladder with fluffy debris at bladder neck SPT replaced COMPLICATIONS: None RECOMMENDATIONS: Discussed findings with patient. POST PROCEDURE Condition: satisfactory Plan: 78 M w radiation cystitis, prior RP and XRT, ADT VUAS Now with SPT Discussed options Spt Bladder neck incision+/- CIC His goal is to get back to depends Risk of recurrence or USF Diversion as end stage option He will consider and let me know Matt Garcia MD documented [facility] NoteHNO ID: [id number] Author: LEROY KLINE RN Service: ? Author Type: Registered Nurse Type: Progress Notes Filed: 12/23/2023 16:03 Note Text: UNIVERSAL PROTOCOL / SAFETY CHECKLIST Procedure to be Performed: Cystoscopy Sign In: A Moment of CARE was completed. Personnel directly involved with the procedure wore the appropriate PPE (Personal Protective Equipment). No special equipment needed. Patient/Surrogate Stated/Verified: PATIENT VERIFIED(optional for EMERGENT procedures): Patient name, Date of , Relevant allergies, and The intended procedure Time Out Communication: Intended patient and procedure match the source documents. Consent documented and matches the intended procedure. Relevant labs, photos, and/or imaging studies have been reviewed. No correct side/site applicable for marking and visibility. Medications required for procedure verified. Fire risk assessed and interventions discussed. No implant(s) inserted. Sign Out: SIGN OUT (optional for EMERGENT procedures): No specimen collected. All instruments, equipment, possible retained foreign bodies accounted for. Post-procedure follow-up management communicated and Plan of Care Visit completed when applicable. Leroy Kline RN[facility] History of Present illness Narrative* Leroy Kline RN - 12/23/2023 4:03 PM EDT UNIVERSAL PROTOCOL / SAFETY CHECKLIST Procedure to be Performed: Cystoscopy Sign In: A Moment of CARE was completed. Personnel directly involved with the procedure wore the appropriate PPE (Personal Protective Equipment). No special equipment needed. Patient/Surrogate Stated/Verified: PATIENT VERIFIED(optional for EMERGENT procedures): Patient name, Date of , Relevant allergies, and The intended procedure Time Out Communication: Intended patient and procedure match the source documents. Consent documented and matches the intended procedure. Relevant labs, photos, and/or imaging studies have been reviewed. No correct side/site applicable for marking and visibility. Medications required for procedure verified. Fire risk assessed and interventions discussed. No implant(s) inserted. Sign Out: SIGN OUT (optional for EMERGENT procedures): No specimen collected. All instruments, equipment, possible retained foreign bodies accounted for. Post-procedure follow-up management communicated and Plan of Care Visit completed when applicable. Leroy Kline RN documented in this encounterEast [facility]07-19-2024 NoteHNO ID: [id number] Author: MATT GARCIA MD Service: ? Author Type: Physician Type: Procedures Filed: 12/23/2023 17:13 Note Text: PHYSICIAN'S NOTE: Procedure: Cystoscopy Epic notes reviewed: yes Mr. 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 Indication: hematuria, radiation cystitis, bladder neck contracture Informed consent obtained yes. Discussed RBAPC. TECHNIQUE: The procedure was fully explained to the patient, risks were reviewed. The patient was placed in the supine position. The genitalia were prepped with betadine, and the urethra was anesthetized with viscous 2% lidocaine. The flexible cystoscope was introduced into the urethra and advanced under direct vision with findings as outlined below. At the conclusion of the procedure, the cystoscope was withdrawn. FINDINGS 20F worthy was removed immediately prior to cystoscopy Urethra: normal until a 3cm stenosis just proximal to the external sphincter Prostate: surgically absent Bladder: small capacity, radiation cystitis, bullous edema from catheter Ureteral orifices orthotopic 20F worthy replaced at end of procedure COMPLICATIONS: None RECOMMENDATIONS: Discussed findings with patient. POST PROCEDURE Condition: satisfactory Plan: Proceed with hyperbaric oxygen as scheduled Will arrange for cysto in 2 months Needs cath exchange in 1 month After next cysto will discuss plan for BNC - will need urethral rest at some point He is motivated to get rid of bleeding and catheter, would be happy to be back in depends [facility] note* Matt Eagle MD - 12/23/2023 1:34 PM EDT PHYSICIAN'S NOTE: Procedure: Cystoscopy Epic notes reviewed: yes Mr. 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 Indication: hematuria, radiation cystitis, bladder neck contracture Informed consent obtained yes. Discussed RBAPC. TECHNIQUE: The procedure was fully explained to the patient, risks were reviewed. The patient was placed in the supine position. The genitalia were prepped with betadine, and the urethra was anesthetized with viscous 2% lidocaine. The flexible cystoscope was introduced into the urethra and advanced under direct vision with findings as outlined below. At the conclusion of the procedure, the cystoscope was withdrawn. FINDINGS 20F worthy was removed immediately prior to cystoscopy Urethra: normal until a 3cm stenosis just proximal to the external sphincter Prostate: surgically absent Bladder: small capacity, radiation cystitis, bullous edema from catheter Ureteral orifices orthotopic 20F worthy replaced at end of procedure COMPLICATIONS: None RECOMMENDATIONS: Discussed findings with patient. POST PROCEDURE Condition: satisfactory Plan: Proceed with hyperbaric oxygen as scheduled Will arrange for cysto in 2 months Needs cath exchange in 1 month After next cysto will discuss plan for BNC - will need urethral rest at some point He is motivated to get rid of bleeding and catheter, would be happy to be back in depends Matt Garcia MD [facility]07-[facility] Procedure note* Matt Garcia MD - 12/23/2023 1:34 PM EDT PHYSICIAN'S NOTE: Procedure: Cystoscopy Epic notes reviewed: yes Mr. 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 Indication: hematuria, radiation cystitis, bladder neck contracture Informed consent obtained yes. Discussed RBAPC. TECHNIQUE: The procedure was fully explained to the patient, risks were reviewed. The patient was placed in the supine position. The genitalia were prepped with betadine, and the urethra was anesthetized with viscous 2% lidocaine. The flexible cystoscope was introduced into the urethra and advanced under direct vision with findings as outlined below. At the conclusion of the procedure, the cystoscope was withdrawn. FINDINGS 20F worthy was removed immediately prior to cystoscopy Urethra: normal until a 3cm stenosis just proximal to the external sphincter Prostate: surgically absent Bladder: small capacity, radiation cystitis, bullous edema from catheter Ureteral orifices orthotopic 20F worthy replaced at end of procedure COMPLICATIONS: None RECOMMENDATIONS: Discussed findings with patient. POST PROCEDURE Condition: satisfactory Plan: Proceed with hyperbaric oxygen as scheduled Will arrange for cysto in 2 months Needs cath exchange in 1 month After next cysto will discuss plan for BNC - will need urethral rest at some point He is motivated to get rid of bleeding and catheter, would be happy to be back in depends Matt Garcia MD documented [facility] encounter[facility] Nurse Note* Leroy Kline RN - 12/23/2023 12:49 PM EDT Actual procedure/procedure scheduled: Yes Performing provider/scheduled provider: Yes Patient was roomed in: Q9- 05 Research Director offered:Patient declines Patient arrived in the room at: 1245 Patient ready for procedure: 1310 The procedure started at ( Time Only): 1326 The procedure ended at: 1328 Was the procedure delayed: Yes: Provider late: Provider off unit The patient left the procedure room at: 1350 Leroy Kline RN PRE PROCEDURE ASSESSMENT- Cysto Procedure Indication: Cystoscopy Latex Allergy: No Allergies reviewed and updated. Yes Pre-Procedure Vital Signs: BP: 141/71 Pulse: 103 Heart valve replacement: No Joint replacement: No Back Office UA obtained: no urinary catheter intact PROCEDURE PREP-Cysto Patient ID with two(2)identifiers verified by: Leroy Kline RN Pre-Procedure Antibiotics: None taken at home nor prior to procedure Patient Prep: Betadine Scrub to perineum and placement of Sterile Drape. COMPLETED Anesthetic Given:10 cc 2% Lidocaine jelly and Administered by MD - see Procedure Physician Note. Leroy Kline RN UNIVERSAL PROTOCOL / SAFETY CHECKLIST Procedure to be performed: Cystoscopy Sign in Communication: Completed Time Out: Team Confirms the Correct Patient, Correct Procedure, Correct Site and Site Marking, Correct Position (if applicable). Sign Out Discussion: Completed Leroy Kline RN POST PROCEDURE NURSE ASSESSMENT Present along with physician during procedure exam. eLroy Kline RN Instruction sheet given and reviewed and patient verbalizes understanding: yes Post Procedure Antibiotic: None Current pain intensity is 0 on a 0-10 pain scale. Leroy Kline RN AMBULATORY PATIENT EDUCATION THE FOLLOWING WAS EVALUATED Motivation To Learn: Interested Family/Significant Other Support: in waiting room Cognitive Ability: Alert/Oriented Method of Instruction: Individual instruction Written instruction/Handouts Verbal instruction The Following Influencing Factors Were Barriers To This Education Session: Emotional Factors: Anxious The Following Physical Limitations Were Barriers To This Education Session: Sensory Deficit Sight: Corrective lenses Instruction Provided To: Patient Podiatric Aide Present: not applicable Discipline: Nursing Learning Topic: SURVIVAL SKILLS: Complication Prevention Symptom Management Patient Evaluation: Verbalizes understanding: Yes Supplemental Material Given: Written Material Instructed By Leroy Kline RN In Department Urology . [facility]07-19-2024 Nurse Note* Leroy Kline RN - 12/23/2023 12:49 PM EDT Actual procedure/procedure scheduled: Yes Performing provider/scheduled provider: Yes Patient was roomed in: [facility] Research Director offered:Patient declines Patient arrived in the room at: 1245 Patient ready for procedure: 1310 The procedure started at ( Time Only): 1326 The procedure ended at: 1328 Was the procedure delayed: Yes: Provider late: Provider off unit The patient left the procedure room at: 1350 Leroy Kline RN PRE PROCEDURE ASSESSMENT- Cysto Procedure Indication: Cystoscopy Latex Allergy: No Allergies reviewed and updated. Yes Pre-Procedure Vital Signs: BP: 141/71 Pulse: 103 Heart valve replacement: No Joint replacement: No Back Office UA obtained: no urinary catheter intact PROCEDURE PREP-Cysto Patient ID with two(2)identifiers verified by: Leroy Kline RN Pre-Procedure Antibiotics: None taken at home nor prior to procedure Patient Prep: Betadine Scrub to perineum and placement of Sterile Drape. COMPLETED Anesthetic Given:10 cc 2% Lidocaine jelly and Administered by MD - see Procedure Physician Note. Leroy Kline RN UNIVERSAL PROTOCOL / SAFETY CHECKLIST Procedure to be performed: Cystoscopy Sign in Communication: Completed Time Out: Team Confirms the Correct Patient, Correct Procedure, Correct Site and Site Marking, Correct Position (if applicable). Sign Out Discussion: Completed Leroy Kline RN POST PROCEDURE NURSE ASSESSMENT Present along with physician during procedure exam. Leroy Kline RN Instruction sheet given and reviewed and patient verbalizes understanding: yes Post Procedure Antibiotic: None Current pain intensity is 0 on a 0-10 pain scale. Leroy Kline RN AMBULATORY PATIENT EDUCATION THE FOLLOWING WAS EVALUATED Motivation To Learn: Interested Family/Significant Other Support: in waiting room Cognitive Ability: Alert/Oriented Method of Instruction: Individual instruction Written instruction/Handouts Verbal instruction The Following Influencing Factors Were Barriers To This Education Session: Emotional Factors: Anxious The Following Physical Limitations Were Barriers To This Education Session: Sensory Deficit Sight: Corrective lenses Instruction Provided To: Patient Podiatric Aide Present: not applicable Discipline: Nursing Learning Topic: SURVIVAL SKILLS: Complication Prevention Symptom Management Patient Evaluation: Verbalizes understanding: Yes Supplemental Material Given: Written Material Instructed By Leroy Kline RN In Department Urology . [facility] NoteHNO ID: [id number] Author: MATT GARCIA MD Service: ? Author Type: Physician Type: Progress Notes Filed: 12/16/2023 09:10 Note Text: [facility] UROLOGY NEW PATIENT CLINIC NOTE SERVICE DATE: 12/16/2023 NAME: Barbara Milan REFERRED BY: No referring provider defined for this encounter. CHIEF COMPLAINT Blood in urine, bladder neck scar tissue HISTORY OF PRESENT ILLNESS Mr. 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 Bladder with erythematous, friable, bleeding mucosa over the bladder neck area. Cystogram negative. Small capacity Has had additional clot evacs (two since then) and bladder neck incisions Had laser BNI November 13 2023 Was able to void on his own for 54 hours Had a 16F placed for retention No difficulty with this placement This clotted with blood Had a 20F placed which is still in now Multiple ER visits in [place] for hematuria, retention CKD Cr 1.3 (last Feb 2023) No recent upper tract imaging On Lupron Before this 3 depends a day Less wet at night but still wears a depends Not horribly bothered by this - would prefer incontinence to having a catheter No pelvic pain, no difficulty walking No fever, chills No UTI PMH: otherwise healthy PSH: RALP Here with his Yaz Daughter in law, Melinda (RN) on speaker phone PAST MEDICAL HISTORY PAST MEDICAL HISTORY Diagnosis Date Benign neoplasm of colon Diverticulosis of colon (without mention of hemorrhage) Elevated prostate specific antigen (PSA) Essential hypertension, benign Internal hemorrhoids without mention of complication Osteoarthrosis, unspecified whether generalized or localized, unspecified site LEFT KNEE Prostate cancer (HCC) Snoring PAST SURGICAL HISTORY PAST SURGICAL HISTORY Procedure Laterality Date ARTHRP KNE CONDYLEANDPLATU MEDIALANDLAT COMPARTMENTS Left 02/2013 Knee replacement, total COLONOSCOPY FLX DX W/COLLJ SPEC WHEN PFRMD 11/21/15 Colonoscopy COLONOSCOPY W/BIOPSY SINGLE/MULTIPLE 10/03/06 PROSTATE BIOPSY 09/11 Dr Figueredo ROBOTIC SURGERY PROCEDURE 09/01/2011 prostatectomy. TONSILLECTOMY AND ADENOIDECTOMY FAMILY HISTORY FAMILY HISTORY Problem Relation Age of Onset Hypertension Mother Stroke Father SOCIAL HISTORY Social History Tobacco Use Smoking status: Never Smokeless tobacco: Never Substance Use Topics Alcohol use: No Drug use: No MEDICATIONS Current Outpatient Medications Medication Sig terazosin (HYTRIN) 5 mg capsule Take 1 capsule by mouth every afternoon. furosemide (LASIX) 20 mg tablet Take 20 mg by mouth every morning. amLODIPine (NORVASC) 10 mg tablet Take 1 tablet by mouth once daily. lisinopril (ZESTRIL, PRINIVIL) 40 mg tablet Take 1 tablet by mouth twice daily. terazosin (HYTRIN) 2 mg capsule Take 1 capsule by mouth daily at bedtime. leuprolide (LUPRON DEPOT, 4 MONTH,) 30 mg injection Inject 30 mg intramuscularly every 4 months. (Patient not taking: Reported on 12/16/2023) leuprolide (LUPRON DEPOT, 4 MONTH,) 30 mg injection Inject 30 mg intramuscularly every 4 months. (Patient not taking: Reported on 12/16/2023) leuprolide (LUPRON DEPOT, 4 MONTH,) 30 mg injection Inject 30 mg intramuscularly every 4 months. (Patient not taking: Reported on 12/16/2023) mv with sze-WD-cpnnqhrx-ginkgo (ONE-A-DAY MEN'S 50+ ADVANTAGE) 400-300-120 mcg-mcg-mg tab Take 1 tablet by mouth once daily. ASPIRIN 81 MG ORAL TAB Take one (1) tablet daily . (Patient not taking: Reported on 12/16/2023) No current facility-administered medications for this visit. CURRENT ALLERGIES Allergies As of Date: 12/16/2023 Allergen Noted Reaction ATENOLOL 12/22/2004 Unknown HYDROCHLOROTHIAZIDE 12/22/2004 Unknown INDOCIN [INDOMETHACIN SODIUM] 07/28/2012 GI Upset LOSARTAN POTASSIUM 08/19/2014 Hives SULFA (SULFONAMIDE ANTIBIOTICS) 12/22/2004 Hives Fully Assessed 12/16/2023 OBJECTIVE PHYSICAL EXAM: 12/16/23 0807 BP: 121/75 BP Site: Left Arm BP Position: Sitting BP Cuff Size: Regular Adult Pulse: 100 Weight: 84.4 kg (186 lb 1.1 oz) Body mass index is 26.7 kg/m?. 12/16/23806 BP: 121/75 BP Site: Left Arm BP Position: Sitting BP Cuff Size: Regular Adult Pulse: 100 Weight: 84.4 kg (186 lb 1.1 oz) General: pleasant Psych: euthymic, NAD Neuro: AANDOx3. CV: normal perfusion, hemodynamically stable Resp: normal effort Abdomen: soft, NT : 20F latex catheter irrigated with return of one small stringy clot Urine merlot, irrigated to light pink DATA Labs Lab Results Component Value Date/Time WBC 7.44 02/12/2023 05:04 AM WBC 6.95 12/16/2015 09:21 AM HB 9.3 (L) 02/12/2023 05:04 AM HB 13.0 12/16/2015 09:21 AM HCT (more content not included)...[facility]07-12-2024 History of Present illness Narrative* Matt Garcia MD - 12/16/2023 7:20 AM EDT Images from the original note were not included. [facility] UROLOGY NEW PATIENT CLINIC NOTE SERVICE DATE: 12/16/2023 NAME: Barbara Milan REFERRED BY: No referring provider defined for this encounter. CHIEF COMPLAINT Blood in urine, bladder neck scar tissue HISTORY OF PRESENT ILLNESS Mr. 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 Bladder with erythematous, friable, bleeding mucosa over the bladder neck area. Cystogram negative. Small capacity Has had additional clot evacs (two since then) and bladder neck incisions Had laser BNI November 13 2023 Was able to void on his own for 54 hours Had a 16F placed for retention No difficulty with this placement This clotted with blood Had a 20F placed which is still in now Multiple ER visits in [place] for hematuria, retention CKD Cr 1.3 (last Feb 2023) No recent upper tract imaging On Lupron Before this 3 depends a day Less wet at night but still wears a depends Not horribly bothered by this - would prefer incontinence to having a catheter No pelvic pain, no difficulty walking No fever, chills No UTI PMH: otherwise healthy PSH: RALP Here with his Yaz Daughter in law, Melinda (RN) on speaker phone PAST MEDICAL HISTORY PAST MEDICAL HISTORY Diagnosis Date Benign neoplasm of colon Diverticulosis of colon (without mention of hemorrhage) Elevated prostate specific antigen (PSA) Essential hypertension, benign Internal hemorrhoids without mention of complication Osteoarthrosis, unspecified whether generalized or localized, unspecified site LEFT KNEE Prostate cancer (HCC) Snoring PAST SURGICAL HISTORY PAST SURGICAL HISTORY Procedure Laterality Date ARTHRP KNE CONDYLE&PLATU MEDIAL&LAT COMPARTMENTS Left 02/2013 Knee replacement, total COLONOSCOPY FLX DX W/COLLJ SPEC WHEN PFRMD 11/21/15 Colonoscopy COLONOSCOPY W/BIOPSY SINGLE/MULTIPLE 10/03/06 PROSTATE BIOPSY 09/11 Dr Figueredo ROBOTIC SURGERY PROCEDURE 09/01/2011 prostatectomy. TONSILLECTOMY & ADENOIDECTOMY <AGE 14 FAMILY HISTORY FAMILY HISTORY Problem Relation Age of Onset Hypertension Mother Stroke Father SOCIAL HISTORY Social History Tobacco Use Smoking status: Never Smokeless tobacco: Never Substance Use Topics Alcohol use: No Drug use: No MEDICATIONS Current Outpatient Medications Medication Sig terazosin (HYTRIN) 5 mg capsule Take 1 capsule by mouth every afternoon. furosemide (LASIX) 20 mg tablet Take 20 mg by mouth every morning. amLODIPine (NORVASC) 10 mg tablet Take 1 tablet by mouth once daily. lisinopril (ZESTRIL, PRINIVIL) 40 mg tablet Take 1 tablet by mouth twice daily. terazosin (HYTRIN) 2 mg capsule Take 1 capsule by mouth daily at bedtime. leuprolide (LUPRON DEPOT, 4 MONTH,) 30 mg injection Inject 30 mg intramuscularly every 4 months. (Patient not taking: Reported on 12/16/2023) leuprolide (LUPRON DEPOT, 4 MONTH,) 30 mg injection Inject 30 mg intramuscularly every 4 months. (Patient not taking: Reported on 12/16/2023) leuprolide (LUPRON DEPOT, 4 MONTH,) 30 mg injection Inject 30 mg intramuscularly every 4 months. (Patient not taking: Reported on 12/16/2023) mv with lkg-JG-mkaitqeb-ginkgo (ONE-A-DAY MEN'S 50+ ADVANTAGE) 400-300-120 mcg-mcg-mg tab Take 1 tablet by mouth once daily. ASPIRIN 81 MG ORAL TAB Take one (1) tablet daily . (Patient not taking: Reported on 12/16/2023) No current facility-administered medications for this visit. CURRENT ALLERGIES Allergies As of Date: 12/16/2023 Allergen Noted Reaction ATENOLOL 12/22/2004 Unknown HYDROCHLOROTHIAZIDE 12/22/2004 Unknown INDOCIN [INDOMETHACIN SODIUM] 07/28/2012 GI Upset LOSARTAN POTASSIUM 08/19/2014 Hives SULFA (SULFONAMIDE ANTIBIOTICS) 12/22/2004 Hives Fully Assessed 12/16/2023 OBJECTIVE PHYSICAL EXAM: 12/16/23806 BP: 121/75 BP Site: Left Arm BP Position: Sitting BP Cuff Size: Regular Adult Pulse: 100 Weight: 84.4 kg (186 lb 1.1 oz) Body mass index is 26.7 kg/m . 12/16/23806 BP: 121/75 BP Site: Left Arm BP Position: Sitting BP Cuff Size: Regular Adult Pulse: 100 Weight: 84.4 kg (186 lb 1.1 oz) General: pleasant Psych: euthymic, NAD Neuro: A&Ox3. CV: normal perfusion, hemodynamically stable Resp: normal effort Abdomen: soft, NT : 20F latex catheter irrigated with return of one small stringy clot Urine merlot, irrigated to light pink DATA Labs Lab Results Component Value Date/Time WBC 7.44 02/12/2023 05:04 AM WBC 6.95 12/16/2015 09:21 AM HB 9.3 (L) 02/12/2023 05:04 AM HB 13.0 12/16/2015 09:21 AM HCT 27.5 (L) 02/12/2023 05:04 AM HCT 38.2 (L) 12/16/2015 09:21 AM PLT 248 02/12/2023 05:04 AM PLT 260 12/16/2015 09:21 AM NA 136 02/12/2023 05:04 AM NA 136 09/11/2015 07:59 AM K 4.1 02/12/2023 05:04 AM K 4.7 09/11/2015 07:59 AM CHLOR 103 02/12/2023 05:04 AM CHLOR 101 09/11/2015 07:59 AM CO2 22 02/12/2023 05:04 AM CO2 22 (L) 09/11/2015 07:59 AM BUN 20 02/12/2023 05:04 AM BUN 23 09/11/2015 07:59 AM CREAT 1.26 (H) 02/12/2023 05:04 AM CREAT 1.40 09/11/2015 07:59 AM ASSESSMENT/PLAN 1. Radiation cystitis - ICD9: 595.82, ICD10: N30.40 (primary diagnosis) 2. Prostate cancer (HCC) - ICD9: 185, ICD10: C61 3. 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 ZUHAIR (stress urinary incontinence), male - ICD9: 788.32, ICD10: N39.3 78 M w prostate cancer sp RALP, XRT, ADT with radiation cystitis with recurrent hematuria, VUAS sp multiple dilations, stress incontinence, urinary retention. Discussed complexity of this issue. Re: radiation cystitis I would recommend HBO Re: ZUHAIR he is not very bothered Re: VUAS he has had multiple BNI - we discussed risk of urosymphyseal fistula. Discussed mgmt in general of this - BNI +/- intermittent self cath v YVplasty. The latter option would make his ZUHAIR worse and would not change his hematuria and radiation cystitis, which is why I would rec hbo first. Would need some period of urethral rest before I could do this surgery. Discussed temporary SPT if needed. High risk of recurrence given radiated tissues. He is scheduled for a cysto with me already next week - will keep this scheduled just as a baselineprior to HBO If he has not had a CTU recently will get that to complete hematuria work up We also discussed cystectomy and IC as an end stage option for all of these issues. Will send him home with irrigations supplies to try to keep him out of the ER All questions answered. Matt Garcia MD Associate Staff [facility] [place] Department of Urology I spent a total of 40 minutes on the date of the service which included preparing to see the patient, [id number] patient care, completing clinical documentation, obtaining and/or reviewing separately obtained history, performing a medically appropriate examination, counseling and educating the pat ient/family/caregiver, and ordering medications, tests, or procedures. >50% of time was devoted to patient counseling. [facility] NotePatient Outreach (UROLMN) BARBARA MILAN ([id number]) 1945 M Date Time Provider Department 12/16/23 MATT GARCIA During your visit today, we recorded the following information about you: Allergies As of Date: 12/16/2023 Noted Allergy Reaction ATENOLOL 12/22/2004 16 - Unknown HYDROCHLOROTHIAZIDE 12/22/2004 16 - Unknown INDOCIN (INDOMETHACIN SODIUM) 07/28/2012 8 - GI Upset LOSARTAN POTASSIUM 08/19/2014 4 - Hives SULFA (SULFONAMIDE ANTIBIOTICS) 12/22/2004 4 - Hives Date Reviewed: 12/16/2023 Reviewed by: Alanna Vicente OCCA - Fully Assessed Visit Diagnosis:Screening for genitourinary condition [Z13.89] Order(s):URINALYSIS, REFLEX MICROSCOPIC [[id number]] Order #: [id number] Prescriptions as of 12/19/2023 - terazosin (HYTRIN) 5 mg capsule Take 1 capsule by mouth every afternoon. - furosemide (LASIX) 20 mg tablet Take 20 mg by mouth every morning. - terazosin (HYTRIN) 2 mg capsule Take 1 capsule by mouth daily at bedtime. - amLODIPine (NORVASC) 10 mg tablet Take 1 tablet by mouth once daily. - lisinopril (ZESTRIL, PRINIVIL) 40 mg tablet Take 1 tablet by mouth twice daily. - leuprolide (LUPRON DEPOT, 4 MONTH,) 30 mg injection Inject 30 mg intramuscularly every 4 months. - leuprolide (LUPRON DEPOT, 4 MONTH,) 30 mg injection Inject 30 mg intramuscularly every 4 months. - leuprolide (LUPRON DEPOT, 4 MONTH,) 30 mg injection Inject 30 mg intramuscularly every 4 months. - mv with bav-UV-xuwgsoss-ginkgo (ONE-A-DAY MEN'S 50+ ADVANTAGE) 400-300-120 mcg-mcg-mg tab Take 1 tablet by mouth once daily. - ASPIRIN 81 MG ORAL TAB Take one (1) tablet daily . Problem List As Of Date 12/16/2023 Noted Resolved BENIGN HYPERTENSION [I10] OSTEOARTHROS NOS-UNSPEC [M19.90] OVERWEIGHT [E66.3] 02/26/2006 Elevated prostate specific antigen (PSA) [R97.2*05/09/2006 08/10/2011 BENIGN NEOPLASM LG BOWEL [D12.6] DIVERTICULOSIS OF COLON W/O BLEED [K57.30] INT HEMORRHOID W/O COMPL [K64.8] Hypertrophy of prostate with urinary obstructio*05/25/2007 11/24/2011 SEBORRHEIC KERATOSIS NOS [L82.1] 10/29/2008 CHR SOLAR SKIN DAMAGE NOS [L57.8] 10/29/2008 Actinic Keratosis [L57.0] 05/19/2009 Rosacea [L71.9] 05/19/2009 Melanocytic Nevus of Trunk [D22.5] 05/19/2009 Solar Lentigo [L81.4] 05/19/2009 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] 05/19/2009 Prostate cancer [C61] 07/06/2011 BPH (benign prostatic hyperplasia) [N40.0] 07/06/2011 11/24/2011 Colon cancer screening [Z12.11] 11/21/2015 Gross hematuria [R31.0] 02/07/2023 Encounter Status:Closed by LIMA INGRAM on 12/19/23[facility] 10-15-2023 Procedure [facility]09-18-2023 Discharge summary Author Zhao Gilliland [facility] February 21, 2023 7:36am Note Date/Time February 21, 2023 7:36am [facility] Medical Records Department [address] [place] [address] Discharge Summary 02/21/23 0735 MR#: [id number] Acct: [id number] Name: BARBARA MILANN Rep #:[id number] : 1945 77 From: Zhao Gillliand MD PCP: Dr. Eduardo Han MD Status: ADM IN Location: [place] [address] Discharge Summary Summary: 77-year-old male has a history of prostate cancer was treated with radical prostatectomy and salvage radiation therapy a long time ago presented to the hospital with gross hematuria and bleeding from radiation cystitis was taken to the operating room and this was cauterized discharge he then presented back to the emergency room a few days later with more bleeding. Had to take the patient back again to surgery and we did extensive cauterization of all the areas of radiation cystitis. The patient was irrigated for 24 hours the urine was crystal clear. The irrigation was stopped and we will observe him for another 24 hours and this morning the urine remains clear with no blood whatsoever. He will go home with the Worthy catheter. I do not want the Worthy catheter changed or manipulated. He will need to follow-up in my office next week for catheter removal and he needs to call make an appointment. Physical Exam Const alert and oriented x3 General Appearance: cooperative HEENT normocephalic, head/scalp atraumatic, EAC's normal and TM's normal bilaterally Eyes PERRL and EOMs intact bilaterally Pupil: sluggish Neck no lymphadenopathy, supple and no JVD General: trachea midline Lymph Lymphatic: no lymphadenopathy noted, lymphedema and lymphadenopathy Resp normal respiratory effort, normal air movement and clear to auscultation bilaterally Cardio regular rate, regular rhythm and peripheral pulses 2+ throughout GI soft to palpation, non-tender and non-distended Extremity normal capillary refill and no clubbing, cyanosis or edema General Extremity: no tenderness to palpation of joints or extremities Skin no rashes or lesions noted General Skin Exam: turgor normal Lesions: no lesions Rashes: no rashes Neuro CN's II-XII intact bilaterally Speech: speech normal Motor Exam: strength 5/5 throughout; Negative for general weakness Psych thought process normal, cooperative and affect normal Appearance: appropriate Meaningful Use Info Meaningful Use Diagnoses (Choose all that apply): None applicable Discharge Plan Admission Admit Date/Time: 02/20/23 01:43 Primary Reason for Your Visit: cauterize bleeding Attending Provider: Zhao Gilliland Primary Care Provider: Eduardo Han Discharge Orders/Prescriptions Prescriptions: New ciprofloxacin HCl [Cipro] 500 mg tablet 500 mg PO BID Qty: 14 0RF Discontinued ibuprofen 600 MG tablet 600 mg PO Q6H PRN PRN (Reason: Pain) Qty: 14 0RF No Action terazosin 5 MG capsule 5 mg PO DAILY amlodipine 10 MG tablet 10 mg PO DAILY lisinopril 40 MG tablet 40 mg PO BID gabapentin 100 mg capsule 100 mg PO Q8H Patient Comments: take 1 capsule by mouth every 8 hours Referrals / Follow Up: Eduardo Han MD [Primary Care Provider] - Zhao Gilliland MD [Med Staff - Active Staff] - Disposition Discharge Orders: Discharge Patient (Routine); Ordered 02/21/23 Ordered By: Dr. Zhao Gilliland 02/21/23 0736 <Electronically signed by Zhao Gilliland MD> Cosigner Signature (if applicable): CC: Dr. Eduardo Han MD; Dr. Zhao Gilliland MD~ Signed [facility] Work Phone: [phone]) 690-442509-17-2023 Consult note Author Zhao Gilliland [facility] February 20, 2023 11:53am Note Date/Time February 20, 2023 11:53am [facility] Medical Records Department [address] [place] [id number] Consultation 02/20/23 1152 MR#: [id number] Acct: [id number] Name: BARBARA MILAN MONI Rep #:[id number] : 1945 77 From: Zhao Gilliland MD PCP: Dr. Eduardo Han MD Status: ADM IN Location: [facility] [id number] Consult Date of Consult: 02/20/23 Reason for Consult Status post cystoscopy evacuation of clots and cauterization of bleeding he has radiation cystitis. Came back with bleeding again only a small amount of blood clots this time but he was still bleeding from areas within the bladder from radiation cystitis. This time I extensively cauterized the bladder. I told thepatient I cauterized every blood vessels that look like it could bleed. The urine is crystal clear we can stop irrigation Hep-Lock IV fluids ambulate he will need to go home with a catheter probably discharge tomorrow morning with the Worthy catheter to a large bag I do not want home health care changing or manipulating the catheter. He had to go with a catheter we will leave it in for10 days and I will see him in the office for removal. 02/20/23 1153 <Electronically signed by Zhao Gilliland MD> Cosigner Signature (if applicable): CC: Dr. Eduardo Han MD~ Signed [facility] Work Phone: 1(683) 248-415309-17-2023 History and physical note Author Zhao Gilliland [facility] February 20, 2023 1:04am Note Date/Time February 20, 2023 1:04am [facility] Medical Records Department [address] [place] [address] History & Physical Exam 02/20/23 0101 MR#: [id number] Acct: [id number] Name: BARBARA MILAN MONI Rep #:[id number] : 1945 77 From: Zhao Gilliland MD PCP: Dr. Eduardo Han MD Status: ADM BRAEDEN Location: [place] [address] HPI - General General Date of Admission: 02/20/23 Date of Service: 02/20/23 Chief Complaint: Gross hematuria HPI Narrative BARBARA MILAN, is a 77 M who presents with gross hematuria he has a history of prostate cancer had a radical prostatectomy in the past this was followed with radiation therapy afterwards for recurrence. Last week he is in the hospital for the same problem with bleeding I cauterized the completely he was completelyclear he went home but unfortunately started bleeding ago when he is at home came back to the emergency room today clotted off completely. So organ to take him to the emergency surgery at this point to evacuate all the clots and cauterize the bleeding again. [facility] Medical History Blood in urine Prostate cancer Home Medications amlodipine 10 mg tablet 10 mg PO DAILY 12/08/18 [History Last Taken 02/14/23] lisinopril 40 mg tablet 40 mg PO BID 12/08/18 [History Last Taken 02/14/23] terazosin 5 mg capsule 5 mg PO DAILY 12/08/18 [History Last Taken Unknown] ibuprofen 600 mg tablet 600 mg PO Q6H PRN PRN Pain #14 tabs 12/15/18 [Rx Last Taken Unknown] gabapentin 100 mg capsule 100 mg PO Q8H 02/19/23 [History Last Taken Unknown] Allergy/AdvReac Type Severity Reaction Status Date / Time losartan Allergy Mild Rash Verified 02/19/23 21:51 Sulfa (Sulfonamide Allergy Hives Verified 02/19/23 21:51 Antibiotics) atenolol AdvReac Mild WEAKNESS Verified 02/19/23 21:51 hydrochlorothiazide AdvReac Mild UNKNOWN Verified 02/19/23 21:51 indomethacin [From Indocin] AdvReac Mild GI upset Verified 02/19/23 21:51 Social History Smoking Status: Never smoker ROS Constitutional Constitutional: Denies chills, fever(s) or malaise Eyes Eyes: Denies blurry vision or change in vision ENT HEENT: Reports none Cardiovascular Cardiovascular: Denies chest pain or palpitations Respiratory/Chest Respiratory/Chest: Denies cough or shortness of breath with exertion Gastrointestinal Gastrointestinal: Denies abdominal pain, constipation or diarrhea Musculoskeletal Musculoskeletal: Denies back pain, joint stiffness or joint swelling Integumentary Integumentary: Denies dry skin, jaundice, lesions or rash Neurologic Neurologic: Denies confusion, syncope or weakness Psychiatric Psychiatric: Reports none; Denies anxiety or depression Endocrine Endocrinology: Denies excessive sweating, fatigue or flushing Hematologic/Lymphatic Hematologic/Lymphatic: Denies anemia, easy bleeding or easy bruising Vital Signs Vital Signs Vital Signs: 02/19/23 21:51 02/20/23 00:00 02/20/23 00:04 Temperature 97.8 F 98.5 F 98.5 F Temperature Source Temporal Oral Oral Pulse Rate 93 81 80 Respiratory Rate 16 16 16 Blood Pressure 129/69 H 118/65 118/65 Blood Pressure Mean 89 82 82 Blood Pressure Source Monitor Blood Pressure Position Semi-Fowlers Blood Pressure Location Right Arm Pulse Ox 97 96 98 Oxygen Delivery Method Room Air Room Air Weight Weight: 94.8 kg Body Mass Index (BMI) 30.8 Physical Exam Const alert and oriented x3 General Appearance: cooperative HEENT normocephalic, head/scalp atraumatic, EAC's normal and TM's normal bilaterally Eyes PERRL and EOMs intact bilaterally Pupil: sluggish Neck no lymphadenopathy, supple and no JVD General: trachea midline Lymph Lymphatic: no lymphadenopathy noted, lymphedema and lymphadenopathy Resp normal respiratory effort, normal air movement and clear to auscultation bilaterally Cardio regular rate, regular rhythm and peripheral pulses 2+ throughout GI soft to palpation, non-tender and non-distended Extremity normal capillary refill and no clubbing, cyanosis or edema General Extremity: no tenderness to palpation of joints or extremities Skin no rashes or lesions noted General Skin Exam: turgor normal Lesions: no lesions Rashes: no rashes Neuro CN's II-XII intact bilaterally Speech: speech normal Motor Exam: strength 5/5 throughout; Negative for general weakness Psych thought process normal, cooperative and affect normal Appearance: appropriate Results Lab / Micro Data 02/19/23 23:52 02/19/23 23:52 Labs: Laboratory Results - last 24 hr 02/19/23 23:52: WBC 7.2, RBC 2.78 L, Hgb 8.3 L, Hct 25.7 L, MCV 92.4, MCH 29.9, MCHC 32.3, RDW Std Deviation 42.6, RDW Coeff of Jerry 12.4, Plt Count 435, MPV 9.8, Immature Gran % (Auto) 2.800 H, Neut % (Auto) 72.6 H, Lymph % (Auto) 8.8 L,Stanley % (Auto) 11.1 H, Eos % (Auto) 4.0, Baso % (Auto) 0.7, Absolute Neuts (auto)5.2, Absolute Lymphs (auto) 0.63 L, Nucleated RBC % 0.3, Sodium 137, Potassium 3.8, Chloride 109 H, Carbon Dioxide 22.0, Anion Gap 6, BUN 22 H, Creatinine 1.14, Estim Creat Clear Calc 55.99, Est GFR (MDRD) Af Amer 81, Est GFR (MDRD) Non-Af 67, BUN/Creatinine Ratio 19.3, Glucose 118 H, Calcium 8.0 L, Blood Type OPOSITIVE, Antibody Screen NEGATIVE Assessment & Plan Assessment/Plan (1) Complication, blocked Worthy catheter: QUALIFIERS: Encounter type: subsequent encounter Qualified Code(s): T83.091D - Other mechanical complication of indwelling urethral catheter, subsequent encounter PLAN: Clotted off with bleeding (2) Prostate cancer: PLAN: History of prostate cancer treated no recurrence (3) Hematuria: QUALIFIERS: Hematuria type: gross Qualified Code(s): R31.0 - Gross hematuria PLAN: Plan to take the surgery for evacuation of clots and cauterization of bleeding and start three-way irrigation 02/20/23 0104 <Electronically signed by Zhao Gilliland MD> Cosigner Signature (if applicable): CC: Dr. Eduardo Han MD; Dr. Zhao Gilliland MD~ Signed [facility] Work Phone: 1(433) 368-358109-17-2023 Discharge summary Author Temi [facility] February 19, 2023 11:51pm Note Date/Time February 19, 2023 11:09pm [facility] Medical Records Department [address] [place] [address] Emergency Department Summary 02/19/23 MR#: [id number] Acct: [id number] Name: BARBARA MILAN MONI Rep #:[id number] : 1945 77 From: Temi Larson PCP: Dr. Eduardo Han MD Status: ADM BRAEDEN Location: [address] History of Present Illness Chief Complaint: Worthy C/O Narrative Narrative: Patient is a 77-year-old male with longstanding history of hematuria associated with prior prostate cancer radiation presenting with recurrence Worthy catheter malfunction. Patient has been going through worsening hematuria which is been blocking up his Worthy catheter for the past 3 weeks. He is actually been admitted to our hospital and also at [facility]. He has had 2 different cystoscopies as well. He had no drainage of his Worthy catheter aroundnoon today however he had home health come in and they switched out his Worthy catheter at that time. He was fine until around 5 PM when he noticed it was notdraining again. He did try to flush it at home with no relief. He continues tohave hematuria. He came into the ER for further evaluation. He states he has amild sense of needing to urinate but is not severe at this point. Denies any other systemic symptoms. Otherwise feeling well. No other complaints or concerns at this time. Is not on any blood thinners. [facility] Medical History Blood in urine Prostate cancer Home Medications amlodipine 10 mg tablet 10 mg PO DAILY 12/08/18 [History Last Taken 02/14/23] lisinopril 40 mg tablet 40 mg PO BID 12/08/18 [History Last Taken 02/14/23] terazosin 5 mg capsule 5 mg PO DAILY 12/08/18 [History Last Taken Unknown] ibuprofen 600 mg tablet 600 mg PO Q6H PRN PRN Pain #14 tabs 12/15/18 [Rx Last Taken Unknown] gabapentin 100 mg capsule 100 mg PO Q8H 02/19/23 [History Last Taken Unknown] Allergy/AdvReac Type Severity Reaction Status Date / Time losartan Allergy Mild Rash Verified 02/19/23 21:51 Sulfa (Sulfonamide Allergy Hives Verified 02/19/23 21:51 Antibiotics) atenolol AdvReac Mild WEAKNESS Verified 02/19/23 21:51 hydrochlorothiazide AdvReac Mild UNKNOWN Verified 02/19/23 21:51 indomethacin [From Indocin] AdvReac Mild GI upset Verified 02/19/23 21:51 Social History Smoking Status: Never smoker ROS [facility] ED Constitutional Constitutional ED: Denies chills or fever(s) Respiratory/Chest Respiratory/Chest: Denies cough Gastrointestinal Gastrointestinal: Reports abdominal pain; Denies nausea or vomiting Genitourinary Genitourinary ED: Reports hematuria and other Details: Worthy catheter malfunction Musculoskeletal Musculoskeletal: Reports other Details: Leg swelling ; Denies arthralgias or myalgias Integumentary Denies rash Neurologic Neurologic: Denies headache(s) Psychiatric Psychiatric: Denies anxiety Hematologic/Lymphatic Hematologic/Lymphatic: Reports easy bleeding EXAM Physical Exam Const Vital Signs: 02/19/23 21:51 Temperature 97.8 F Temperature Source Temporal Pulse Rate 93 Respiratory Rate 16 Blood Pressure 129/69 H Blood Pressure Mean 89 Pulse Ox 97 Positive well nourished and well developed General Appearance ED: well developed and NAD; Negative for pallor HEENT Reports moist mucous membranes Eyes PERRL Neck supple Resp normal respiratory effort and clear to auscultation bilaterally Cardio regular rate, regular rhythm and no murmurs GI GI Narrative: Mild suprapubic tenderness to palpation. Questionably palpable bladder. no CVA tenderness Narrative: Worthy catheter in place, there is red urine and clots in bag. The Worthy catheter is not currently draining. Back/Spine no CVA tenderness Extremity General Extremety ED: Yes edema General Extremity: edema Neuro oriented x3 Sensorium / Orientation: alert Psych mental status grossly normal Skin General Skin Exam: Negative for pallor Rashes: no rashes MDM MDM MDM Narrative Medical decision making narrative: Patient is evaluated for continued hematuria that is now blocked up his Worthy catheter. He currently has a 20-gauge Worthy in. It was changed earlier this afternoon by home health. Nursing staff flushed his Worthy for about 15-20 minutes. He continued to have clots come out but he never had full resolution of the obstruction and did not have a freely draining catheter. Feel this pointpatient likely needs a three-way irrigating Worthy catheter however patient states this is always had to be done with wire. I spoke with the patient's urologist, Dr. Gilliland who is familiar with him. He will come in and take him tothe OR tonight. IV is placed and screening labs are obtained. Patient is quiteagreeable with this plan of care. Discharge Plan Triage Chief Complaint: Worthy C/O ED Provider: Temi Macisa Dx/Rx/DC Orders Clinical Impression: Hematuria, Complication, blocked Worthy catheter Prescriptions: No Action terazosin 5 MG capsule 5 mg PO DAILY amlodipine 10 MG tablet 10 mg PO DAILY lisinopril 40 MG tablet 40 mg PO BID ibuprofen 600 MG tablet 600 mg PO Q6H PRN PRN (Reason: Pain) Qty: 14 0RF gabapentin 100 mg capsule 100 mg PO Q8H Patient Comments: take 1 capsule by mouth every 8 hours Primary Care Provider: Eduardo Han Referrals: Eduardo Han MD [Primary Care Provider] - Disposition Disposition: Acute Care Hospital [facility] What to do if you have Problems For any increased pain, shortness of breath, bleeding, nausea or vomiting, chestpain, or any unexpected problems, contact your Primary Care Provider. Call [facility] ([phone]) or report to the closest Emergency Room. Call 911 if necessary. 02/19/23 2351 <Electronically signed by Temi Macias DO> Cosigner Signature (if applicable): CC: Dr. Eduardo Han MD ~ Signed [facility] Work Phone: 1(650) 991-761709-17-2023 Procedure [facility] 02-17-2023 Discharge summary Author Zhao Gilliland [facility] February 17, 2023 7:27am Note Date/Time February 17, 2023 7:27am [facility] Medical Records Department [address] [place] [address] Discharge Summary 02/17/23 0724 MR#: [id number] Acct: [id number] Name: BARBARA MILAN MONI Rep #:[id number] : 1945 77 From: Zhao Gilliland MD PCP: Dr. Eduardo Han MD Status: ADM IN Location: [place] [address] Providers Date of Admission: 02/14/23 Primary Care Physician: Dr. Eduardo Han MD Reason For Visit: HEMATURIA AND PAIN Diagnosis Discharge Diagnosis (1) Hematuria: Status: Acute Code(s): R31.9 - Hematuria, unspecified Plan: Plan to continue with observation we will stop CBI. (2) Prostate cancer: Status: Acute Code(s): C61 - Malignant neoplasm of prostate Medications at Discharge Home Medications amlodipine 10 mg tablet 10 mg PO DAILY 12/08/18 lisinopril 40 mg tablet 40 mg PO BID 12/08/18 terazosin 5 mg capsule 5 mg PO DAILY 12/08/18 ibuprofen 600 mg tablet 600 mg PO Q6H PRN PRN Pain #14 tabs 12/15/18 Hospital Course Summary of Care Provided Minutes Spent on Discharge: 35 Hospital Course: 77-year-old male with a history of prostate cancer who had his radical prostatectomy at the [facility] about 10 years ago after that he had biochemical recurrence so he had salvage radiation therapy. Last week he presented to [facility] with severe pain and bleeding but I was out of town so the patient was t transferred [place] then [place] he told hewas transferred to [facility] and with surgery there and had a cystoscopy clot evacuation according to the patient not have any wrote notes but then he presented to the ER here at [facility] and they called me so the patient was admitted I took him to surgery and found to have bleeding from and a small laceration tear in the back of the bladder this was cauterized and also some bleeding at the bladder neck and this was also cauterized since then he was on continuous bladder irrigation we then stopped irrigation the last day and a halfhas been clear with no blood in the urine been draining well nice and clear. Patient states that the urine was never clear when he was at the other hospital. Today we removed his Worthy catheter this morning and if he is able to urinate he can go home without a catheter if he is not able to urinate want to send him home with a 18 [place] catheter and he can follow-up in my office in a few weeks for checkup. Physical Exam Const alert and oriented x3 General Appearance: cooperative HEENT normocephalic, head/scalp atraumatic, EAC's normal and TM's normal bilaterally Eyes PERRL and EOMs intact bilaterally Pupil: sluggish Neck no lymphadenopathy, supple and no JVD General: trachea midline Lymph Lymphatic: no lymphadenopathy noted, lymphedema and lymphadenopathy Resp normal respiratory effort, normal air movement and clear to auscultation bilaterally Cardio regular rate, regular rhythm and peripheral pulses 2+ throughout GI soft to palpation, non-tender and non-distended Extremity normal capillary refill and no clubbing, cyanosis or edema General Extremity: no tenderness to palpation of joints or extremities Skin no rashes or lesions noted General Skin Exam: turgor normal Lesions: no lesions Rashes: no rashes Neuro CN's II-XII intact bilaterally Speech: speech normal Motor Exam: strength 5/5 throughout; Negative for general weakness Psych thought process normal, cooperative and affect normal Appearance: appropriate Medical Records Data Attestation: I reviewed the patient's medical records Weight / BMI Weight Weight: 94.4 kg Body Mass Index (BMI) 29.8 ABG / Lab / Microbiology Data 02/17/23 06:30 02/14/23 13:40 Laboratory: Laboratory Results - last 24 hr 09/14/23 06:30: WBC 8.7, RBC 2.65 L, Hgb 8.2 L, Hct 24.6 L, MCV 92.8, MCH 30.9, MCHC 33.3, RDW Std Deviation 42.8, RDW Coeff of Jerry 12.6, Plt Count 330, MPV 10.0 D/C Instructions Discharge Diet: No restrictions Discharge Activity: Return to Normal Activity and May Not Shower May resume sexual activity in: 6-8 weeks Additional Activity Instructions: No heavy lifting and no strenuous activity, donot take any blood thinners no aspirin Call your doctor if your incision/area has: Continuous Slow Oozing Call your doctor if you observe: Fever of 101 or Higher Please Follow Up With: Zhao Gilliland MD When: Discharge home after he is able to urinate follow-up in my office in a fewweeks Meaningful Use Info Meaningful Use Diagnoses (Choose all that apply): None applicable Discharge Plan Admission Admit Date/Time: 02/14/23 17:39 Primary Reason for Your Visit: bleeding. Attending Provider: Zhao Gilliland Primary Care Provider: Eduardo Han Discharge Orders/Prescriptions Prescriptions: No Action terazosin 5 MG capsule 5 mg PO DAILY amlodipine 10 MG tablet 10 mg PO DAILY lisinopril 40 MG tablet 40 mg PO BID ibuprofen 600 MG tablet 600 mg PO Q6H PRN PRN (Reason: Pain) Qty: 14 0RF Referrals / Follow Up: Eduardo Han MD [Primary Care Provider] - Zhao Gilliland MD [Med Staff - Active Staff] - 02/17/23726 <Electronically signed by Zhao Gilliland MD> Cosigner Signature (if applicable): CC: Dr. Eduardo Han MD; Dr. Zhao Gilliland MD~ Signed [facility] Work Phone: [phone]) 878-521209-13-2023 Progress note Author Zhao Gilliland [facility] February 16, 2023 3:07pm Note Date/Time February 16, 2023 3:07pm [facility] Medical Records Department [address] [place] [address] Progress Note - Urology 02/16/23 1506 MR#: [id number] Acct: [id number] Name: BARBARA MILAN MONI Rep #:[id number] : 1945 77 From: Zhao Gilliland MD PCP: Dr. Eduardo Han MD Status: ADM IN Location: MS3 [id number] Subjective Subjective Status post resection and cauterization of bladder for bleeding urine now is finally clear he is off irrigation. Will probably plan to remove the catheter tomorrow for voiding trial. Still not sure if he will have to go home with a catheter of choice possible we discussed that with the patient today. Objective Data Objective Data Vital Signs: Vital Signs Temp Pulse Resp BP Pulse Ox O2 Del Method 98.5 F 84 18 112/66 97 Room Air 02/16/23 13:41 02/16/23 13:41 02/16/23 13:41 02/16/23 13:41 02/16/23 13:41 02/16/23 13:41 Oxygen Delivery Method Room Air Weight: 94.4 kg Body Mass Index (BMI) 29.8 Intake & Output: Intake and Output for Last 24 Hours 02/14/23 02/15/23 02/16/23 23:59 23:59 23:59 Intake Total 1160.0 / 1160.0 3133.33 / 3133.33 2450 / 2450 Output Total 2600 / 2600 9325 / 9325 1650 / 1650 Balance -1440.0 / -1440.0 -6191.67 / -6191.67 800 / 800 Lab / Micro Data 02/16/23 06:05 02/14/23 13:40 Labs: Laboratory Results - last 24 hr 02/16/23 06:05: WBC 8.7, RBC 2.64 L, Hgb 8.1 L, Hct 25.0 L, MCV 94.7 H, MCH 30.7, MCHC 32.4, RDW Std Deviation 44.6 H, RDW Coeff of Jerry 12.9, Plt Count 321,MPV 10.2 Assessment & Plan Assessment/Plan (1) Hematuria: (2) Prostate cancer: 02/16/23 1507 <Electronically signed by Zhao Gilliland MD> Cosigner Signature (if applicable): CC: ~ Signed [facility] Work Phone: 1(565) 425-433609-12-2023 Progress note Author Zhao Gilliland [facility] February 15, 2023 12:05pm Note Date/Time February 15, 2023 12:05pm [facility] Medical Records Department [address] [place] [address] Progress Note - Urology 02/15/23 1204 MR#: [id number] Acct: [id number] Name: BARBARA MILAN MONI Rep #:[id number] : 1945 77 From: Zhao Gilliland MD PCP: Dr. Eduardo Han MD Status: ADM IN Location: [facility]3 [id number] Subjective Subjective Status post cystoscopy clot evacuation cauterization of bleeding, fortunately today the urine is crystal clear with no blood whatsoever. We can stop the irrigation today I can put him on some gabapentin per family's request for some leg pain and swelling. We will stop CBI and watch the urine for now but fortunately has stopped bleeding. Objective Data Objective Data Vital Signs: Vital Signs Temp Pulse Resp BP Pulse Ox O2 Del Method 97.3 F L 83 16 120/69 96 Room Air 02/15/23 08:43 02/15/23 08:43 02/15/23 08:43 02/15/23 08:43 02/15/23 08:43 02/15/23 08:43 Oxygen Delivery Method Room Air Weight: 94.4 kg Body Mass Index (BMI) 29.8 Intake & Output: Intake and Output for Last 24 Hours 02/13/23 02/14/23 02/15/23 23:59 23:59 23:59 Intake Total 1160.0 / 1160.0 2033.33 / 2033.33 Output Total 2600 / 2600 5125 / 5125 Balance -1440.0 / -1440.0 -3091.67 / -3091.67 Lab / Micro Data 02/15/23 05:45 02/14/23 13:40 Labs: Laboratory Results - last 24 hr 02/14/23 13:40: WBC 7.4, RBC 3.35 L, Hgb 10.3 L, Hct 31.0 L, MCV 92.5, MCH 30.7,MCHC 33.2, RDW Std Deviation 42.8, RDW Coeff of Jerry 12.6, Plt Count 332, MPV 10.2, Immature Gran % (Auto) 0.800, Neut % (Auto) 83.6 H, Lymph % (Auto) 6.8 L, Stanley % (Auto) 7.1, Eos % (Auto) 1.4, Baso % (Auto) 0.3, Absolute Neuts (auto) 6.2, Absolute Lymphs (auto) 0.50 L, Nucleated RBC % 0, Differential Comment SCANNED, Sodium 139, Potassium 4.2, Chloride 107, Carbon Dioxide 22.0, Anion Gap10, BUN 24 H, Creatinine 1.60 H, Estim Creat Clear Calc 41.19, Est GFR (MDRD) AfAmer 54 L, Est GFR (MDRD) Non-Af 45 L, BUN/Creatinine Ratio 15.0, Glucose 125 H,Calcium 8.6 02/15/23 05:45: WBC 8.4, RBC 2.73 L, Hgb 8.2 L, Hct 25.7 L, MCV 94.1 H, MCH 30.0, MCHC 31.9 L, RDW Std Deviation 44.2 H, RDW Coeff of Jerry 12.9, Plt Count 308, MPV 10.5 Radiography Diagnostic Testing: Radiology Impression Abdomen/Pelvis CT 02/14/23 13:27 IMPRESSION: Large polyp reported mass in the bladder as described. Diagnosed blastic process should be ruled out. Mild degree of bilateral hydronephrosis and perinephric stranding. Findings suggestive of a hyperdense cyst in the upper pole of the right kidney. Small bilateral pleural effusions with bibasilar atelectasis. Electronically Signed: Samy Natarajan MD at 14:21 EDT , Physical Exam Const alert and oriented x3 General Appearance: cooperative HEENT normocephalic, head/scalp atraumatic, EAC's normal and TM's normal bilaterally Eyes PERRL and EOMs intact bilaterally Pupil: sluggish Neck no lymphadenopathy, supple and no JVD General: trachea midline Lymph Lymphatic: no lymphadenopathy noted, lymphedema and lymphadenopathy Resp normal respiratory effort, normal air movement and clear to auscultation bilaterally Cardio regular rate, regular rhythm and peripheral pulses 2+ throughout GI soft to palpation, non-tender and non-distended Extremity normal capillary refill and no clubbing, cyanosis or edema General Extremity: no tenderness to palpation of joints or extremities Skin no rashes or lesions noted General Skin Exam: turgor normal Lesions: no lesions Rashes: no rashes Neuro CN's II-XII intact bilaterally Speech: speech normal Motor Exam: strength 5/5 throughout; Negative for general weakness Psych thought process normal, cooperative and affect normal Appearance: appropriate Assessment & Plan Assessment/Plan (1) Hematuria: PLAN: Plan to continue with observation we will stop CBI. 02/15/23 1205 <Electronically signed by Zhao Gilliland MD> Cosigner Signature (if applicable): CC: ~ Signed [facility] Work Phone: 1(659) 781-455209-11-2023 History and physical note Author Zhao Darshana [facility] February 14, 2023 4:34pm Note Date/Time February 14, 2023 4:34pm [facility] Medical Records Department [address] [place] [id number] History & Physical Exam 02/14/23 1633 MR#: [id number] Acct: [id number] Name: BARBARA MILAN MONI Rep #:[id number] : 1945 77 From: Zhao Gilliland MD PCP: Dr. Eduardo Han MD Status: ADM BRAEDEN Location: [place] [address] HPI - General General Date of Admission: 02/14/23 Date of Service: 02/14/23 Chief Complaint: Gross hematuria HPI Narrative BARBARA MILAN, is a 77 M who presents to the emergency room with gross hematuriahad a cystoscopy clot evacuation done at [facility] last week presents back to the emergency room with more bleeding and a taken back to surgery today hopefully find the bleeding and stop it with cauterization and three-way irrigation [facility] Medical History Blood in urine Prostate cancer Home Medications amlodipine 10 mg tablet 10 mg PO DAILY 12/08/18 [History Last Taken 02/14/23] lisinopril 40 mg tablet 40 mg PO BID 12/08/18 [History Last Taken 02/14/23] terazosin 5 mg capsule 5 mg PO DAILY 12/08/18 [History Last Taken Unknown] ibuprofen 600 mg tablet 600 mg PO Q6H PRN PRN Pain #14 tabs 12/15/18 [Rx Last Taken Unknown] Allergy/AdvReac Type Severity Reaction Status Date / Time losartan Allergy Mild Rash Verified 02/14/23 15:16 Sulfa (Sulfonamide Allergy Hives Verified 02/07/23 11:06 Antibiotics) atenolol AdvReac Mild WEAKNESS Verified 02/14/23 15:16 hydrochlorothiazide AdvReac Mild UNKNOWN Verified 02/14/23 15:16 indomethacin [From Indocin] AdvReac Mild GI upset Verified 02/14/23 15:16 Social History Smoking Status: Never smoker Vital Signs Vital Signs Vital Signs: 02/14/23 09:47 02/14/23 13:19 02/14/23 14:38 Temperature 96.7 F L 98.0 F Temperature Source Temporal Oral Pulse Rate 88 83 70 Respiratory Rate 18 16 18 Blood Pressure 174/91 H 142/74 H 144/68 H Blood Pressure Mean 118 96 93 Pulse Ox 97 99 Oxygen Delivery Method Room Air Room Air Room Air Weight Weight: 94.4 kg Body Mass Index (BMI) 29.8 Results Lab / Micro Data 02/14/23 13:40 02/14/23 13:40 Labs: Laboratory Results - last 24 hr 02/14/23 11:25: Urine Color Red, Urine Clarity Cloudy, Urine pH 8.0, Ur SpecificGravity 1.010, Urine Protein 500 H, Urine Glucose (UA) Normal, Urine Ketones 5 H, Urine Occult Blood 250 H, Urine Nitrite Negative, Urine Bilirubin Negative, Urine Urobilinogen Normal, Ur Leukocyte Esterase Negative, Urine RBC > 100 SEEN,Urine WBC 0 SEEN, Ur Squamous Epith Cells 0 SEEN, Urine Bacteria 0 SEEN, Urine Mucus 0 SEEN 02/14/23 13:40: WBC 7.4, RBC 3.35 L, Hgb 10.3 L, Hct 31.0 L, MCV 92.5, MCH 30.7,MCHC 33.2, RDW Std Deviation 42.8, RDW Coeff of Jerry 12.6, Plt Count 332, MPV 10.2, Immature Gran % (Auto) 0.800, Neut % (Auto) 83.6 H, Lymph % (Auto) 6.8 L, Stanley % (Auto) 7.1, Eos % (Auto) 1.4, Baso % (Auto) 0.3, Absolute Neuts (auto) 6.2, Absolute Lymphs (auto) 0.50 L, Nucleated RBC % 0, Differential Comment SCANNED, Sodium 139, Potassium 4.2, Chloride 107, Carbon Dioxide 22.0, Anion Gap10, BUN 24 H, Creatinine 1.60 H, Estim Creat Clear Calc 41.19, Est GFR (MDRD) AfAmer 54 L, Est GFR (MDRD) Non-Af 45 L, BUN/Creatinine Ratio 15.0, Glucose 125 H,Calcium 8.6 Radiology Impression Abdomen/Pelvis CT 02/14/23 13:27 IMPRESSION: Large polyp reported mass in the bladder as described. Diagnosed blastic process should be ruled out. Mild degree of bilateral hydronephrosis and perinephric stranding. Findings suggestive of a hyperdense cyst in the upper pole of the right kidney. Small bilateral pleural effusions with bibasilar atelectasis. Electronically Signed: Samy Natarajan MD at 14:21 EDT Reading Location ID and State: [facility] / [place] , Service support , 02/14/23 1634 <Electronically signed by Zhao Gilliland MD> Cosigner Signature (if applicable): CC: Dr. Eduardo Han MD; Dr. Zhao Gilliland MD~ Signed [facility] Work Phone: 1(424) 301-396809-11-2023 [facility] Discharge summary Author Damian Melvin [facility] February 14, 2023 3:51pm Note Date/Time February 14, 2023 10:41am [facility] Medical Records Department [address] [place] [address] Emergency Department Summary 02/14/23 MR#: [id number] Acct: [id number] Name: BARBARA MILAN MONI Rep #:[id number] : 1945 77 From: Damian Larson PCP: Dr. Eduardo Han MD Status: ADM BRAEDEN Location: MS3 VR983-6 HPI History of Present Illness Chief Complaint: Complaint Informant: patient Onset/Context/Timing Onset: Today Context: Gradual Onset Timing: Continuous Quality: Pressure Location: Suprapubic Worsened by: Nothing Relieved by: Bladder irrigation Narrative Narrative: Patient presents with urinary retention and hematuria that became worse today. Patient states he has been having difficulties with his catheter over the past 2weeks. Patient states he has had multiple catheter exchanges. Patient states today he noted some blood and clots in his Worthy bag. Patient denies any dysuria. Patient admits to some pressure over his bladder area. Patient deniesany fevers or chills. Patient denies any nausea or vomiting. Patient denies any back pain. PFSH PFS Medical History Blood in urine Prostate cancer Home Medications amlodipine 10 mg tablet 10 mg PO DAILY 12/08/18 [History Last Taken 12/15/18 07:00] lisinopril 40 mg tablet 40 mg PO BID 12/08/18 [History Last Taken 12/15/18 07:00] terazosin 5 mg capsule 5 mg PO DAILY 12/08/18 [History Last Taken Unknown] ibuprofen 600 mg tablet 600 mg PO Q6H PRN PRN Pain #14 tabs 12/15/18 [Rx Last Taken Unknown] Allergy/AdvReac Type Severity Reaction Status Date / Time Sulfa (Sulfonamide Allergy Hives Verified 02/07/23 11:06 Antibiotics) Social History Smoking Status: Never smoker ROS ROS ED Constitutional Constitutional ED: Denies chills or fever(s) Eyes Eyes: Denies blurry vision or change in vision ENT ENT ED: Denies rhinorrhea or sore throat Cardiovascular Cardiovascular: Denies chest pain or palpitations Respiratory/Chest Respiratory/Chest: Denies cough or dyspnea Gastrointestinal Gastrointestinal: Denies nausea or vomiting Genitourinary Genitourinary ED: Reports hematuria; Denies dysuria Musculoskeletal Musculoskeletal: Denies back pain or neck pain Integumentary Denies abscess or rash Neurologic Neurologic: Denies headache(s) or weakness Allergic/Immunologic Allergic/Immunologic ED: Denies mouth swelling or urticaria EXAM Physical Exam Const Vital Signs: 02/14/23 09:47 02/14/23 13:19 Temperature 96.7 F L Temperature Source Temporal Pulse Rate 88 83 Respiratory Rate 18 16 Blood Pressure 174/91 H 142/74 H Blood Pressure Mean 118 96 Pulse Ox 97 99 Oxygen Delivery Method Room Air Room Air Positive well nourished and well developed General Appearance ED: well developed and NAD HEENT Reports moist mucous membranes Neck supple and no JVD Resp normal respiratory effort and clear to auscultation bilaterally Cardio regular rate and regular rhythm GI non-distended Palpation: soft and tender suprapubic (Mild); Negative for guarding or rebound tenderness present Extremity normal to inspection General Extremety ED: Negative for edema or tenderness General Extremity: Negative for edema Neuro oriented x3, CN's II-XII intact bilaterally and no sensory deficits noted Sensorium / Orientation: alert Motor Exam: strength 5/5 throughout Psych mental status grossly normal MDM MDM MDM Narrative Medical decision making narrative: Differential diagnosis includes hematuria and urinary tract infection. Urinalysis will be obtained to assess for urinary tract infection. Lab Data Attestation: I reviewed the patient's lab results. Lab results narrative: CBC was reviewed. Hemoglobin was 10.3 and hematocrit was 31.0. White blood cell count was normal. Platelets were normal. Basic metabolic profile was reviewed. BUN was 24 and creatinine was 1.6. These are consistent with prior results. Urinalysis was reviewed. There is red cloudy urine. Occult blood [id number] with greater than 100 red blood cells. There is no evidence of urinary tract infection. Labs: Laboratory Results - last 24 hr 02/14/23 02/14/23 11:25 13:40 WBC 7.4 RBC 3.35 L Hgb 10.3 L Hct 31.0 L MCV 92.5 MCH 30.7 MCHC 33.2 RDW Std Deviation 42.8 RDW Coeff of Jerry 12.6 Plt Count 332 MPV 10.2 Immature Gran % (Auto) 0.800 Neut % (Auto) 83.6 H Lymph % (Auto) 6.8 L Stanley % (Auto) 7.1 Eos % (Auto) 1.4 Baso % (Auto) 0.3 Absolute Neuts (auto) 6.2 Absolute Lymphs (auto) 0.50 L Nucleated RBC % 0 Sodium 139 Potassium 4.2 Chloride 107 Carbon Dioxide 22.0 Anion Gap 10 BUN 24 H Creatinine 1.60 H Estim Creat Clear Calc 41.19 Est GFR (MDRD) Af Amer 54 L Est GFR (MDRD) Non-Af 45 L BUN/Creatinine Ratio 15.0 Glucose 125 H Calcium 8.6 Urine Color Red Urine Clarity Cloudy Urine pH 8.0 Ur Specific [place] 1.010 Urine Protein 500 H Urine Glucose (UA) Normal Urine Ketones 5 H Urine Occult Blood 250 H Urine Nitrite Negative Urine Bilirubin Negative Urine Urobilinogen Normal Ur Leukocyte Esterase Negative Urine RBC > 100 SEEN Urine WBC 0 SEEN Ur Squamous Epith Cells 0 SEEN Urine Bacteria 0 SEEN Urine Mucus 0 SEEN Radiography Diagnostic Testing: Because of the persistent pain, CT scan of the abdomen and pelvis was obtained. Treatment and Re-Evaluation :: The patient's Worthy catheter was irrigated. Several clots were retrieved. Patient is still complaining of pressure pain in the bladder area. Patient was given a dose of morphine. Patient states this does not help. Because of the persistent pain, CBC and basic metabolic profile will be obtained to relieve to assess for leukocytosis, anemia, electrolyte abnormality, and renal function. CT scan of the abdomen pelvis will also be obtained to assess for bladder mass, ureteral calculus, and pyelonephritis. Case was discussed with Dr. Gilliland. He will take the patient to the operating room for cystoscopy. Patient and spouse understand and are agreeable with the plan. All questions were answered. Discharge Plan Triage Chief Complaint: Complaint ED Provider: Damian Melvin Dx/Rx/DC Orders Clinical Impression: Hematuria, Abdominal pain Prescriptions: No Action terazosin 5 MG capsule 5 mg PO DAILY amlodipine 10 MG tablet 10 mg PO DAILY lisinopril 40 MG tablet 40 mg PO BID ibuprofen 600 MG tablet 600 mg PO Q6H PRN PRN (Reason: Pain) Qty: 14 0RF Primary Care Provider: Eduardo Han Referrals: Eduardo Han MD [Primary Care Provider] - Disposition Disposition: Acute Care [facility] What to do if you have Problems For any increased pain, shortness of breath, bleeding, nausea or vomiting, chestpain, or any unexpected problems, contact your Primary Care Provider. Call [facility] ([phone]) or report to the closest Emergency Room. Call 911 if necessary. 02/14/23 1551 <Electronically signed by Damian Melvin DO> Cosigner Signature (if applicable): CC: Dr. Eduardo Han MD ~ Signed [facility] Work Phone: 1(557) 908-702409-11-2023 Discharge summary Author Damian Melvin [facility] February 14, 2023 3:51pm Note Date/Time February 14, 2023 10:41am [facility] Medical Records Department [address] [place] [address] Emergency Department Summary 02/14/23 MR#: [id number] Acct: [id number] Name: BARBARA MILAN MONI Rep #:[id number] : 1945 77 From: Damian Larson PCP: Dr. Eduardo Han MD Status: ADM BRAEDEN Location: [facility] RO349-2 HPI History of Present Illness Chief Complaint: Complaint Informant: patient Onset/Context/Timing Onset: Today Context: Gradual Onset Timing: Continuous Quality: Pressure Location: Suprapubic Worsened by: Nothing Relieved by: Bladder irrigation Narrative Narrative: Patient presents with urinary retention and hematuria that became worse today. Patient states he has been having difficulties with his catheter over the past 2weeks. Patient states he has had multiple catheter exchanges. Patient states today he noted some blood and clots in his Worthy bag. Patient denies any dysuria. Patient admits to some pressure over his bladder area. Patient deniesany fevers or chills. Patient denies any nausea or vomiting. Patient denies any back pain. [facility] Medical History Blood in urine Prostate cancer Home Medications amlodipine 10 mg tablet 10 mg PO DAILY 12/08/18 [History Last Taken 12/15/18 07:00] lisinopril 40 mg tablet 40 mg PO BID 12/08/18 [History Last Taken 12/15/18 07:00] terazosin 5 mg capsule 5 mg PO DAILY 12/08/18 [History Last Taken Unknown] ibuprofen 600 mg tablet 600 mg PO Q6H PRN PRN Pain #14 tabs 12/15/18 [Rx Last Taken Unknown] Allergy/AdvReac Type Severity Reaction Status Date / Time Sulfa (Sulfonamide Allergy Hives Verified 02/07/23 11:06 Antibiotics) Social History Smoking Status: Never smoker ROS ROS ED Constitutional Constitutional ED: Denies chills or fever(s) Eyes Eyes: Denies blurry vision or change in vision ENT ENT ED: Denies rhinorrhea or sore throat Cardiovascular Cardiovascular: Denies chest pain or palpitations Respiratory/Chest Respiratory/Chest: Denies cough or dyspnea Gastrointestinal Gastrointestinal: Denies nausea or vomiting Genitourinary Genitourinary ED: Reports hematuria; Denies dysuria Musculoskeletal Musculoskeletal: Denies back pain or neck pain Integumentary Denies abscess or rash Neurologic Neurologic: Denies headache(s) or weakness Allergic/Immunologic Allergic/Immunologic ED: Denies mouth swelling or urticaria EXAM Physical Exam Const Vital Signs: 02/14/23 09:47 02/14/23 13:19 Temperature 96.7 F L Temperature Source Temporal Pulse Rate 88 83 Respiratory Rate 18 16 Blood Pressure 174/91 H 142/74 H Blood Pressure Mean 118 96 Pulse Ox 97 99 Oxygen Delivery Method Room Air Room Air Positive well nourished and well developed General Appearance ED: well developed and NAD HEENT Reports moist mucous membranes Neck supple and no JVD Resp normal respiratory effort and clear to auscultation bilaterally Cardio regular rate and regular rhythm GI non-distended Palpation: soft and tender suprapubic (Mild); Negative for guarding or rebound tenderness present Extremity normal to inspection General Extremety ED: Negative for edema or tenderness General Extremity: Negative for edema Neuro oriented x3, CN's II-XII intact bilaterally and no sensory deficits noted Sensorium / Orientation: alert Motor Exam: strength 5/5 throughout Psych mental status grossly normal MDM MDM MDM Narrative Medical decision making narrative: Differential diagnosis includes hematuria and urinary tract infection. Urinalysis will be obtained to assess for urinary tract infection. Lab Data Attestation: I reviewed the patient's lab results. Lab results narrative: CBC was reviewed. Hemoglobin was 10.3 and hematocrit was 31.0. White blood cell count was normal. Platelets were normal. Basic metabolic profile was reviewed. BUN was 24 and creatinine was 1.6. These are consistent with prior results. Urinalysis was reviewed. There is red cloudy urine. Occult blood [id number] with greater than 100 red blood cells. There is no evidence of urinary tract infection. Labs: Laboratory Results - last 24 hr 02/14/23 02/14/23 11:25 13:40 WBC 7.4 RBC 3.35 L Hgb 10.3 L Hct 31.0 L MCV 92.5 MCH 30.7 MCHC 33.2 RDW Std Deviation 42.8 RDW Coeff of Jerry 12.6 Plt Count 332 MPV 10.2 Immature Gran % (Auto) 0.800 Neut % (Auto) 83.6 H Lymph % (Auto) 6.8 L Stanley % (Auto) 7.1 Eos % (Auto) 1.4 Baso % (Auto) 0.3 Absolute Neuts (auto) 6.2 Absolute Lymphs (auto) 0.50 L Nucleated RBC % 0 Sodium 139 Potassium 4.2 Chloride 107 Carbon Dioxide 22.0 Anion Gap 10 BUN 24 H Creatinine 1.60 H Estim Creat Clear Calc 41.19 Est GFR (MDRD) Af Amer 54 L Est GFR (MDRD) Non-Af 45 L BUN/Creatinine Ratio 15.0 Glucose 125 H Calcium 8.6 Urine Color Red Urine Clarity Cloudy Urine pH 8.0 Ur Specific [place] 1.010 Urine Protein 500 H Urine Glucose (UA) Normal Urine Ketones 5 H Urine Occult Blood 250 H Urine Nitrite Negative Urine Bilirubin Negative Urine Urobilinogen Normal Ur Leukocyte Esterase Negative Urine RBC > 100 SEEN Urine WBC 0 SEEN Ur Squamous Epith Cells 0 SEEN Urine Bacteria 0 SEEN Urine Mucus 0 SEEN Radiography Diagnostic Testing: Because of the persistent pain, CT scan of the abdomen and pelvis was obtained. Treatment and Re-Evaluation :: The patient's Worthy catheter was irrigated. Several clots were retrieved. Patient is still complaining of pressure pain in the bladder area. Patient was given a dose of morphine. Patient states this does not help. Because of the persistent pain, CBC and basic metabolic profile will be obtained to relieve to assess for leukocytosis, anemia, electrolyte abnormality, and renal function. CT scan of the abdomen pelvis will also be obtained to assess for bladder mass, ureteral calculus, and pyelonephritis. Case was discussed with Dr. Gilliland. He will take the patient to the operating room for cystoscopy. Patient and spouse understand and are agreeable with the plan. All questions were answered. Discharge Plan Triage Chief Complaint: Complaint ED Provider: Damian Melvin Dx/Rx/DC Orders Clinical Impression: Hematuria, Abdominal pain Prescriptions: No Action terazosin 5 MG capsule 5 mg PO DAILY amlodipine 10 MG tablet 10 mg PO DAILY lisinopril 40 MG tablet 40 mg PO BID ibuprofen 600 MG tablet 600 mg PO Q6H PRN PRN (Reason: Pain) Qty: 14 0RF Primary Care Provider: Eduardo Han Referrals: Eduardo Han MD [Primary Care Provider] - Disposition Disposition: Acute Care [facility] What to do if you have Problems For any increased pain, shortness of breath, bleeding, nausea or vomiting, chestpain, or any unexpected problems, contact your Primary Care Provider. Call [facility] ([phone]) or report to the closest Emergency Room. Call 911 if necessary. 02/14/23 1551 <Electronically signed by Damina Melvin DO> Cosigner Signature (if applicable): CC: Dr. Eduardo Han MD ~ Signed [facility] Work Phone: [phone]) 791-171509-09-2023 NoteHNO ID: [id number] Author: Lauren Lubin RN Service: Care Management [...] 12, 2023 TIME: 11:07 AM PAGER/CONTACT #: [phone] [facility] Center 02-12-2023 NoteHNO ID: [id number] Author: Lauren Lubin RN Service: Care Management Author Type: Registered Nurse Type: Care Mgt Progress Note Filed: 02/12/2023 11:06 AM Note Text: CARE MANAGEMENT DISCHARGE NOTE SERVICE DATE: 02/12/2023 SERVICE TIME: 11:05 AM LOS: 4 days Caregiver is ready, willing and able to meet the patient's needs as recommended by the inter-professional team: Yes Name of Caregiver: Kate Duarte [facility] for PT Transportation Arrangements: Car Date of Trip: 02/12/23 Destination: Home Patient is being discharged to home. Home care orders were sent. Kate [facility] is made aware of discharge today. SIGNATURE: Lauren Lubin RN PATIENT NAME: Barbara Milan DATE: February 12, 2023 TIME: 11:05 AM PAGER/CONTACT #: [phone] [facility] Medical Center 02-12-2023 NoteHNO ID: [id number] Author: Mayra Carrasquillo MD Service: Urology Author Type: Resident Type: Progress Notes Filed: 02/12/2023 7:51 AM Note Text: Attestation signed by Rio Pardo MD at 02/12/2023 2:57 PM I performed a history and physical examination of the patient and discussed the management with the resident. I reviewed the resident's note and agree with the documented findings and plan of care. OP follow up scheduled with his Urologist in [place]. DC with Worthy. Rio Pardo MD UROLOGY PROGRESS NOTE PATIENT NAME: Barbara Milan [...] (Oral) Resp 17 Ht 177.8 cm (5' 10) Wt 88.5 kg (195 lb) SpO2 93% BMI 27.98 kg/m? I AND O - 24hr: Intake/Output Summary (Last 24 hours) at 02/12/2023 0449 Last data filed at 02/11/2023 1945 Gross per 24 hour Intake 2940 ml [...] 27.3* 28.8* PLT 211 203 Urinalysis: Specific [place], Ur Date Value Ref Range Status 02/23/2012 [...] year old male with a history of [place] 9 prostate cancer s/p prostatectomy and radiation who presents with gross hematuria. PLAN: -maintain Worthy catheter -okay to resume Aspirin 81mg -PT consulted regarding LE pain; recommended home PT -hgb 9.3, stable from yesterday -plan for outpatient hyperbaric oxygen therapy in [place] if hematuria persists -Anticipate discharge home today Shari Valera, MS-4 Agree with medical student assessment and plan as above. Any additions noted in blue and any changes noted with . Mayra Carrasquillo MD Urology PGY2 02/12/2023 7:51 AM -Page manager global communications resident with questions or concernsNorthern [facility] Medical Center 02-11-2023 NoteMultiple deeper levels were evaluated. Limited cellularity and crush artifact precludes further evaluation.[facility] Medical CenterComment on above:Order Comment: Specimen Type: TISSUE SPECIMENOrdering Facility: [facility] Address: [address] [place] [address] Performed By: #### S ####[facility] LABORATORYCLIA [id number] [address]09-08-2023 NoteHNO ID: [id number] Author: Mayra Cordova APRN.CRNA Service: Anesthesiology Author Type: Nurse Tag And Label Cutter Type: Anesthesia Procedure Notes Filed: 02/11/2023 3:04 PM Note Text: ANESTHESIOLOGY PROCEDURE NOTE Airway General Information Procedure Start Time/Medication Administration: 02/11/2023 2:54 PM Patient location during procedure: OR Timeout Performed Pre-procedure: timeout performed Consent Obtained: Yes Patient identity confirmed: arm band Staffing PLATE SHEAR OPERATOR: Mayra Cordova APRN.PLATE SHEAR OPERATOR Performed by: ULI Indications and Patient Condition Indications for airway management: anesthesia and airway protection Preoxygenated: yes anesthesia circuit Patient position: sniffing Method: asleep Final Airway Details Final airway type: supraglottic airway Number of attempts at approach: 1 Final Supraglottic Airway: i-gel Size 5 Seal Adequate: yes Airway not difficult SIGNATURE: Mayra Cordova APRN.PLATE SHEAR OPERATOR PATIENT NAME: Barbara Milan DATE: February 11, 2023 TIME: 3:03 PM CSN: [id number] Maine Medical Center09-08-2023 NoteHNO ID: [id number] Author: María Elena Bauer RN Service: Care Management Author Type: Registered Nurse Type: Care Mgt Progress Note Filed: 02/11/2023 10:51 AM Note Text: CARE MANAGEMENT PROGRESS NOTE SERVICE DATE: 02/11/2023 SERVICE TIME: 10:50 AM LOS: 3 days Post-Acute Discharge Planning Patient Goal(s): General wellness, Be able to go home, Better mobility, Less pain [place] of Choice Explained: [place] of Choice Given: Yes (prevously discussed with patient and his ) Level of Care Discussed: Home Care Discharge Planning Participant(s): Patient;Spouse/significant other Patient/Family Comments: Yaz Anticipated # of Days Until Discharge: 1 Transport at Discharge: Transportation Arrangements: Car Needs Prior to Discharge: Needs Prior to Discharge: Procedure Procedure Needed: cystoscopy and clot evacuation and fulguration Post-Acute Discharge Plan: Chart reviewed. Urology is planning OR today. DC plan is home with [facility] home PT. [facility] order uploaded to them. Patient will have transport from either family or a friend as his does not drive. SIGNATURE: María Elena Bauer RN PATIENT NAME: Barbara Milan DATE: February 11, 2023 TIME: 10:50 AM PAGER/CONTACT #: [phone] [facility] Medical Center 02-11-2023 NoteHNO ID: [id number] Author: Mina Novoa MD Service: Urology Author Type: Resident Type: Progress Notes Filed: 02/11/2023 8:13 AM Note Text: Attestation signed by Kelvin Edwards MD at 02/11/2023 10:31 AM Attending Note I evaluated the patient and personally participated in the hurd components. I agree with the resident's findings and plan as documented and have discussed the case and management of the patient's care with the resident. ASSESSMENT: 1. Hematuria - ICD9: 599.70, ICD10: R31.9 PLAN: Return of hematuria. May need cystoscopy and clot evacuation and fulguration. We discussed the planned procedure. Risks, benefits, and alternatives of the procedure were discussed. Patient acknowledges understanding and consents to proceed. Will check with OR for availability Kelvin Edwards MD Date: 02/11/23 Time: 9:39 AM UROLOGY PROGRESS NOTE PATIENT NAME: Barbara Milan DATE OF : 1945 ADMISSION DATE: 02/07/2023 6:05 PM Subjective Patient doing well overnight with no complaints. Vital signs stable. Denies any fevers or chills. Denies dizziness or lightheadedness. No nausea or vomiting, eating some food. Unable to irrigate catheter this AM during rounds. Patient reported severe suprapubic pressure. Exchanged 22F 3-way simplastic catheter over a wire. Patient has occasional hard bowel movements, asked for a stool softener to help. Objective VS: BP 93/64 Pulse 78 Temp 37 ?C (98.6 ?F) (Oral) Resp 18 Ht 177.8 cm (5' 10) Wt 88.5 kg (195 lb) SpO2 94% BMI 27.98 kg/m? I AND O - 24hr: Intake/Output Summary (Last 24 hours) at 02/11/2023 0455 Last data filed at 02/11/2023 0311 Gross per 24 hour Intake 5000 ml Output 4250 ml Net 750 ml Physical Exam: General: Neck: Resp: Abdomen: No acute distress Supple Normal effort Soft, nontender, nondistended. : 24F 3-way simplastic catheter draining light red urine. No flank tenderness bilaterally. Labs and Imaging Studies LABS: BMP: Recent Labs 02/11/2331602/10/23 0514 02/09/23 0230 NA 133* 134* 134* K 3.9 4.0 4.0 CHLOR 103 104 103 CO2 21* 21* 20* BUN 22 20 16 CREAT 1.30* 1.23* 1.17 GLUC 108* 112* 126* CBC: Recent Labs 02/11/23 0317 02/10/23 0514 02/09/23 0230 WBC 7.34 8.99 9.87 HB 9.3* 9.7* 10.6* HCT 27.3* 28.8* 31.5* PLT 211 203 211 Urinalysis: Specific [place], Ur Date Value Ref Range Status 02/23/2012 [...] year old male with a history of [place] 9 prostate cancer s/p prostatectomy and radiation who presents with gross hematuria. PLAN: -NPO for possible cystoscopy, clot evacuation, fulguration of bleeding later today vs tomorrow -maintain Worthy catheter -CBI running slow drip, urine dark pink in color with some clots. -Alum restarted in CBI -okay to resume Aspirin 81mg -start stool regimen -PT consulted regarding LE pain; recommended home PT -hgb 9.3 from 9.7 -will require outpatient cystoscopy -will require CT Urogram -plan for outpatient hyperbaric oxygen therapy in [place] if hematuria persists -Anticipate possible cystoscopy for evaluation of hematuria Shari Valera, MS-4 I agree with the medical student's assessment and plan. Appropriate changes made by myself. Patient independently seen and examined. Mina Novoa MD PGY-4, Urology February 11, 2023 Pager #[phone]09-07-2023 NoteHNO ID: [id number] Author: María Elena Bauer RN Service: Care Management Author Type: Registered Nurse Type: Care Mgt Progress Note Filed: 02/10/2023 1:53 PM Note Text: CARE MANAGEMENT PROGRESS NOTE SERVICE DATE: 02/10/2023 SERVICE TIME: 10:52 AM LOS: 2 days IMM Follow Up Copy Given: Yes Copy given to:: Patient Method: In Person [place] Given: No Reason Not Given: Patient refused Met with patient and his in room to discuss PT recs for home PT. Patient states he feels he has improved greatly from yesterday and his pain is much decreased. He does not feel he will need home PT upon discharge. Advised him that if he changes his mind after discharge he will need to contact his PCP to arrange services. Addendum: [place] of Choice Given: Yes Reason Not Given: Patient refused Level of Care Discussed: Home Care Financial Disclosure Provided: Yes Financial Disclosure Comments: [facility] connected Provider list within the patient's requested geographic area shared with the patient/family: No Patient worked with PT again and is now wanting HHC. He has no preference for agency. Referrals sent and [facility] can accept. Patient is agreeable. SIGNATURE: María Elena Bauer RN PATIENT NAME: Barbara Milan DATE: February 10, 2023 TIME: 10:56 AM PAGER/CONTACT #: [phone]23 NoteHNO ID: [id number] Author: Mina Novoa MD Service: Urology Author Type: Resident Type: Progress Notes Filed: 02/10/2023 8:11 AM Note Text: Attestation signed by Max Grewal MD at 02/11/2023 7:16 AM TEACHING PROVIDER (Physician/PA/KEN) NOTE OF PERSONAL INVOLVEMENT IN CARE: I have personally seen and examined the patient and performed the medical decision-making components. I have reviewed the resident's documentation and verified the findings in the note as written. Patient seen and examined. at bedside. Patient with history of prostate cancer managed with radiation therapy many years ago. 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 Has clinically stabilized since admission. Failed voiding trial today and catheter reinserted over a guidewire earlier this evening with return of clear/pink-tinged urine. Discussed plan of care with family. Patient prefers to follow-up with his local urologist in [place], Dr. Davies. May consider hyperbaric therapy in the future. They have follow-up on 02/21/2023. Signature: Max Grewal Date: 02/10/2023 Time: 2029 UROLOGY PROGRESS NOTE PATIENT NAME: Barbara Milan DATE OF : 1945 ADMISSION DATE: 02/07/2023 6:05 PM Subjective Patient doing well overnight with no complaints. Vital signs stable. He denies any fevers or chills. Denies dizziness but was only out of bed for short time yesterday. No lightheadedness. States that leg pain has improved compared to yesterday. Worthy clamped at 12:50pm yesterday afternoon, now draining clear, light pink urine. Objective VS: BP 124/66 Pulse 94 Temp 37.6 ?C (99.7 ?F) (Oral) Resp 20 Ht 177.8 cm (5' 10) Wt 88.5 kg (195 lb) SpO2 95% BMI 27.98 kg/m? I AND O - 24hr: Intake/Output Summary (Last 24 hours) at 02/10/2023 0527 Last data filed at 02/10/2023 0517 Gross per 24 hour Intake 2140 ml Output 4950 ml Net -2810 ml Physical Exam: General: Neck: Resp: Abdomen: No acute distress Supple Normal effort Soft, nontender, nondistended. : 24F 3-way simplastic catheter draining clear, light pink urine. No flank tenderness bilaterally. Labs and Imaging Studies LABS: BMP: Recent Labs 02/09/2322902/08/2323402/07/232000 NA 134* 132* 136 K 4.0 4.1 4.1 CHLOR 103 102 106* CO2 20* 20* 18* BUN 16 16 18 CREAT 1.17 1.13 1.21 GLUC 126* 101* 116* CBC: Recent Labs 02/09/2322902/08/2323402/07/232000 WBC 9.87 8.28 7.55 HB 10.6* 11.6* 12.2* HCT 31.5* 34.0* 37.5* PLT 211 236 165 Urinalysis: Specific [place], Ur Date Value Ref Range Status 02/23/2012 [...] radiation who presents with gross hematuria. PLAN: -Ok for diet from standpoint; no plan for surgical intervention today -maintain Worthy catheter -CBI clamped yesterday afternoon, urine currently clear, light pink in color. -may resume Aspirin 81mg -PT consulted regarding LE pain; recommended home PT -hgb yesterday 10.6, will follow today's labs -will require outpatient cystoscopy -will require CT Urogram -plan for outpatient hyperbaric oxygen therapy in [place] if hematuria persists -Anticipate possible void trial and discharge later today Shari Valera, MS-4 I agree with the medical student's assessment and plan. Appropriate changes made by myself. Patient independently seen and examined. Mina Novoa MD PGY-4, Urology February 10, 2023 Pager #[phone]09-06-2023 NoteHNO ID: [id number] Author: Drea Son RN Service: ? Author Type: Registered Nurse Type: Nursing Progress Note Filed: 02/09/2023 2:22 PM Note Text: CBI clamped after Alum bag per Dr Cortez Carrasquillo.[facility] 02-09-2023 NoteHNO ID: [id number] Author: María Elena Bauer RN Service: Care Management Author Type: Registered Nurse Type: Care Mgt Initial Assessment Filed: 02/09/2023 1:54 PM Note Text: CARE MANAGEMENT: ASSESSMENT AND DISCHARGE PLAN SERVICE DATE: February 09, 2023 SERVICE TIME: 11:43 AM PCP: Kelvin Han MD Primary Contact: Extended Emergency Contact Information Primary Emergency Contact: Yaz Milan [address]: [address] [place] [address] Mobile Relation: Spouse Admission Status: Inpatient Insurance Provider: MEDICARE A AND B Discharge Planning requested by: Per Department Practice Potential Transition Plans Home Advance Directives Current Advance Directive: Health Care Power of Sap Bw Architect;Living Will In Chart: Yes Up To Date and Valid: Yes Current Living Arrangements and Support Lives with: Spouse/significant other Type of Residence: Private Residence (House) Does the patient have to climb stairs at home?: Yes;stairs outside the home Support: Family members, Spouse/significant other How do you manage to accomplish the following: Independent: Ambulation;Bathe/Shower;Dress;Meals/Meal Prep;Going to the bathroom;Medication Management;Transportation to appointments/community Current Services/Equipment Current Post-Acute Service(s): None Discharge Planning Patient Goal(s): General wellness, Be able to go home [place] Choice Explained: [place] of Choice Given: No Reason Not Given: No placements necessary Are you interested in bedside delivery of your medications? Yes Discharge Planning Participant(s): Patient;Spouse/significant other Patient/Family Comments: Yaz Caregiver Assessment: Caregiver is ready, willing and able to meet the patient's needs as recommended by the inter-professional team: Yes Name of Caregiver: Yaz Milan Transport at Discharge: Transportation Arrangements: Car Needs Prior to Discharge: Needs Prior to Discharge: To Be Determined;Pharmacy Bedside Delivery Post-Acute Discharge Plan: Chart reviewed and met with patient and his in room. Patient is from home with his . 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 PT/OT evals are pending, but anticipate patient to return home at [place]. His son will transport as his doesn't drive. SIGNATURE: María Elena Bauer RN PATIENT NAME: Barbara Milan DATE: February 09, 2023 TIME: 1:50 PM CONTACT #: [phone]09-[facility]-2023 Note HNO ID: [id number] Author: Drea Son RN Service: ? Author Type: Registered Nurse Type: Nursing Progress Note Filed: 02/09/2023 7:35 AM Note Text: Urology irrigated per patient.[facility]09-06-2023 NoteHNO ID: [id number] Author: Mina Novoa MD Service: Urology Author Type: Resident Type: Progress Notes Filed: 02/09/2023 6:44 AM Note Text: Attestation signed by Kelvin Edwards MD at 02/09/2023 9:01 AM Attending Note I evaluated the patient and personally participated in the hurd components. I agree with the resident's findings and plan as documented and have discussed the case and management of the patient's care with the resident. ASSESSMENT: 1. Hematuria - ICD9: 599.70, ICD10: R31.9 History of radiation and prostatectomy Still requiring CBI and Alum Urine pink with some clots Patient of Dr. Velez PLAN: Discussed findings with patient. Day 2 of CBI/Alum. May need cystoscopy, clot evacuation, fulguration as inpatient if fails to resolve over the next day. Will make NPO after midnight. Kelvin Edwards MD Date: 02/09/23 Time: 8:59 AM UROLOGY PROGRESS NOTE PATIENT NAME: Barbara Milan DATE OF : 1945 ADMISSION DATE: 02/07/2023 6:05 PM Subjective No acute events overnight. Denies fevers and chills. Denies lightheadedness and dizziness. Manually irrigated during rounds for no clots and light pink urine. Objective VS: BP 133/75 Pulse 94 Temp 36.8 ?C (98.2 ?F) (Oral) Resp 18 Ht 177.8 cm (5' 10) Wt 88.5 kg (195 lb) SpO2 93% BMI 27.98 kg/m? I AND O - 24hr: Intake/Output Summary (Last 24 hours) at 02/09/2023 0636 Last data filed at 02/09/2023 0609 Gross per 24 hour Intake 2410 ml Output 29336 ml Net -8490 ml Physical Exam: General: Neck: Resp: Abdomen: No acute distress Supple Normal effort Soft, non-tender, nondistended : 22F 3-way simplastic catheter draining light pink urine on slow drip of Alum. No flank tenderness bilaterally. Labs and Imaging Studies LABS: BMP: Glucose (mg/dL) Date Value 02/09/2023 126 09/11/2015 100 Potassium (mmol/L) Date Value 02/09/2023 4.0 09/11/2015 4.7 Sodium (mmol/L) Date Value 02/09/2023 134 09/11/2015 136 Chloride (mmol/L) Date Value 02/09/2023 103 09/11/2015 101 CO2 (mmol/L) Date Value 02/09/2023 20 09/11/2015 22 Creatinine (mg/dL) Date Value 02/09/2023 1.17 09/11/2015 1.40 BUN (mg/dL) Date Value 02/09/2023 16 09/11/2015 23 Anion Gap (mmol/L) Date Value 02/09/2023 11 09/11/2015 13 Calcium (mg/dL) Date Value 09/11/2015 9.5 Calcium, Total (mg/dL) Date Value 02/09/2023 8.4 CBC: Hemoglobin (g/dL) Date Value 02/09/2023 10.6 12/16/2015 13.0 Hematocrit (%) Date Value 02/09/2023 31.5 12/16/2015 38.2 WBC (k/uL) Date Value 02/09/2023 9.87 12/16/2015 6.95 Platelet Count (k/uL) Date Value 02/09/2023 211 12/16/2015 260 Urinalysis: Specific [place], Ur Date Value Ref Range Status 02/23/2012 [...] Culture: No results found for: URCUL RADIOLOGY: No recent imaging to review. Assessment and Plan Problem List Gross hematuria (POA: Yes) ASSESSMENT: 77 year old male with a history of [place] 9 prostate cancer s/p prostatectomy and radiation who presents with gross hematuria. PLAN: -Maintain Worthy catheter in place -Continue CBI in place; titrate to clear/light pink -Manual irrigations q4h for hematuria and clots -Continue Alum as ordered for every third bag of CBI -Aspirin 81mg remains held -Hemoglobin decreased to 10.6 (11.6, 12.2 on presentation); trend daily -Rocephin 1g q24h administered given extensive catheter manipulation and attempts; will discontinue this AM - team to re-evaluate urine later this AM -Will require outpatient cystoscopy, will consider checking CT Uorgram as inpatient (eGFR 65) -Consider outpatient hyperbaric oxygen therapy if hematuria persists -Please page resident with questions or concerns Mina Novoa MD PGY-4, Urology February 09, 2023 Pager #[phone]09-05-2023 NoteHNO ID: [id number] Author: Jose Mcneil MD Service: Urology Author Type: Physician Type: Progress Notes Filed: 02/08/2023 11:12 AM Note Text: UROLOGY PROGRESS NOTE PATIENT NAME: Barbara Milan DATE OF : 1945 ADMISSION DATE: 02/07/2023 6:05 PM Subjective Worthy draining pink urine on slot gtt Clots with irrigation, will reassess urine later this AM Objective VS: BP 143/85 Pulse 86 Temp 36.4 ?C (97.5 ?F) (Oral) Resp 18 Ht 177.8 cm (5' 10) Wt 88.5 kg (195 lb) SpO2 97% BMI 27.98 kg/m? I AND O - 24hr: Intake/Output Summary (Last 24 hours) at 02/08/2023 0724 Last data filed at 02/08/2023 0646 Gross per 24 hour Intake 530 ml Output 4400 ml Net -3870 ml Physical Exam: General: Neck: Resp: Abdomen: No acute distress Supple Normal effort Soft non tender : 22F 3way draining pink urine, clots with irrigation Labs and Imaging Studies LABS: BMP: Recent Labs 02/08/2323402/07/232000 NA 132* 136 K 4.1 4.1 CHLOR 102 106* CO2 20* 18* BUN 16 18 CREAT 1.13 1.21 GLUC 101* 116* CBC: Recent Labs 02/08/2323402/07/232000 WBC 8.28 7.55 HB 11.6* 12.2* HCT 34.0* 37.5* PLT 236 165 Urinalysis: Specific [place], Ur Date Value Ref Range Status 02/23/2012 [...] Culture: No results found for: URCUL RADIOLOGY: [facility] CT NON-RADIOLOGY -NBNR [facility] - CT Images - Obtained Outside of Imaging [place] Assessment/Plan ASSESSMENT: 77 year old male with gross hematuria. 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 PLAN: -Maintain worthy -Continue CBI; titrate to light pink color -Manually irrigate worthy every 4 hours for clot evacuation - Disconnect bag from worthy and with CBI clamped, irrigate via bag port with a Tumi/pistol syringe for return of clots and until return of clear/pink urine - Can hold irrigation if clear off of CBI -Levsin PRN for bladder spasms -Cr wnl, trend - Check UA -check urine culture, treat per cx results - Rocephin given multiple worthy attempts -Hold anticoagulation, if medically feasible, until hematuria clears -Patient will need outpatient hematuria workup with cystoscopy and CT Urogram. Known to private practice urologist in [place] I saw and evaluated the patient. Discussed with the resident and agree with resident's findings and plan as documented in the resident's note. Jose Mcneil MD See consult [facility]09-04-2023 Discharge summary Author Neo Alcaraz [facility] February 07, 2023 4:14pm Note Date/Time February 07, 2023 11:45am [facility] Medical Records Department [address] [place] [address] Emergency Department Summary 02/07/23 MR#: [id number] Acct: [id number] Name: BARBARA MILAN MONI Rep #:[id number] : 1945 77 From: Neo Alcaraz DO PCP: Dr. Eduardo Han MD Status: REG ER Location: ED HPI History of Present Illness Chief Complaint: Worthy C/O Narrative Narrative: 77-year-old male presenting with hematuria and urinary retention. Patient states he was recently seen and started on antibiotics for UTI and urinary retention. He had the Worthy in for a few days. He reports that the blood clot started last night and clotted off sometime overnight. He has not been able to urinate. He is not on any blood thinners. Recently he did have biopsies performed by Dr. Gilliland. [facility] Medical History Blood in urine Prostate cancer Home Medications amlodipine 10 mg tablet 10 mg PO DAILY 12/08/18 [History Last Taken 12/15/18 07:00] lisinopril 40 mg tablet 40 mg PO BID 12/08/18 [History Last Taken 12/15/18 07:00] terazosin 5 mg capsule 5 mg PO DAILY 12/08/18 [History Last Taken Unknown] ciprofloxacin HCl 500 mg tablet 500 mg PO BID #6 tabs 12/15/18 [Rx Last Taken Unknown] ibuprofen 600 mg tablet 600 mg PO Q6H PRN PRN Pain #14 tabs 12/15/18 [Rx Last Taken Unknown] phenazopyridine 100 mg tablet 100 mg PO TID PRN PRN burning #14 tabs 12/15/18 [Rx Last Taken Unknown] ciprofloxacin HCl 500 mg tablet (Cipro) 500 mg PO BID #10 tabs 02/02/23 [Rx Last Taken Unknown] Allergy/AdvReac Type Severity Reaction Status Date / Time Sulfa (Sulfonamide Allergy Hives Verified 02/07/23 11:06 Antibiotics) Social History Smoking Status: Never smoker ROS ROS ED Constitutional Constitutional ED: Denies chills, fever(s) or sweats Eyes Eyes: Denies blurry vision or change in vision ENT ENT ED: Denies ear pain or sore throat Cardiovascular Cardiovascular: Denies chest pain, palpitations or racing heartbeat Respiratory/Chest Respiratory/Chest: Denies cough, dyspnea or sputum Gastrointestinal Gastrointestinal: Denies abdominal pain, constipation, diarrhea, nausea or vomiting Genitourinary Genitourinary ED: Reports hematuria; Denies dysuria or urinary frequency Musculoskeletal Musculoskeletal: Denies arthralgias, myalgias or neck pain Integumentary Denies abscess, Abrasions or rash Neurologic Neurologic: Denies headache(s), paresthesias or weakness Psychiatric Psychiatric: Denies anxiety, depression, suicidal ideation or suicidal thoughts Endocrine Endocrinology: Denies polydipsia or polyuria EXAM Physical Exam Const Vital Signs: 02/07/23 11:05 Temperature 97.3 F L Temperature Source Temporal Pulse Rate 126 H Respiratory Rate 14 Blood Pressure 156/93 H Blood Pressure Mean 114 Pulse Ox 98 Oxygen Delivery Method Room Air Positive well nourished General Appearance ED: NAD; Negative for pallor HEENT Reports moist mucous membranes normocephalic Eyes PERRL General Eye ED: Negative for pale conjunctiva Resp normal respiratory effort Cardio regular rhythm Rate: tachycardic GI GI Narrative: Suprapubic fullness no CVA tenderness Narrative: Worthy catheter in place. There is some blood in the Worthy catheter bag. Extremity normal to inspection Neuro oriented x3 and CN's II-XII intact bilaterally Sensorium / Orientation: alert Psych mental status grossly normal Skin General Skin Exam: Negative for jaundice or pallor MDM MDM MDM Narrative Medical decision making narrative: Patient presenting with clotting off of his Worthy catheter. He is not on any blood thinners. He does have some mild suprapubic pressure. Patient is on antibiotics for UTI currently. He had recent biopsies by urology which may be causing the bleeding. We initially tried to irrigate the Worthy catheter and didget some clots out but it clotted off again. At this point we will put in a three-way Worthy catheter to irrigate him. CBC and BMP will be obtained. CBC shows normal white count 9.1. Hemoglobin is stable at 12.8. Platelets are normal. Creatinine is just above baseline at 1.59. Patient was given a liter normal saline. He had difficulty irrigating his bladder by hand and there was some occlusions with clots. Three-way Worthy was attempted but would not fit. When nursing staff came back he was again draining so he was irrigated and he has been irrigating pink urine. It is not reoccluded. He has been irrigated several times and is still remains pink. At this point I feel the patient couldbe safely discharged home. I did speak with Dr. Gilliland who states that he is onhis way out of town to [facility]. He states that he cannot keep him in the hospital because he is not going to be here. The patient has a follow-up appointment on Tuesday. He is to see the urology office. At this point the patient states that he wants to try to be transferred to [facility] and I will make this call however, I was told earlier today that they do not have any beds. After speaking with the transfer line and urology (Dr. Grewal) patient was accepted ER to ER to see urology. Impression: 1. Hematuria 2. Occluded Worthy catheter Lab Data Attestation: I reviewed the patient's lab results. Labs: Laboratory Results - last 24 hr 02/07/23 11:30 WBC 9.1 RBC 4.19 L Hgb 12.8 L Hct 37.8 L MCV 90.2 MCH 30.5 MCHC 33.9 RDW Std Deviation 40.5 RDW Coeff of Jerry 12.3 Plt Count 241 MPV 10.6 Immature Gran % (Auto) 0.600 Neut % (Auto) 80.6 H Lymph % (Auto) 7.2 L Stanley % (Auto) 8.9 Eos % (Auto) 2.3 Baso % (Auto) 0.4 Absolute Neuts (auto) 7.3 Absolute Lymphs (auto) 0.65 L Nucleated RBC % 0 Sodium 137 Potassium 3.9 Chloride 110 H Carbon Dioxide 19.0 L Anion Gap 8 BUN 23 H Creatinine 1.59 H Estim Creat Clear Calc 41.45 Est GFR (MDRD) Af Amer 55 L Est GFR (MDRD) Non-Af 45 L BUN/Creatinine Ratio 14.5 Glucose 113 H Calcium 9.0 Discharge Plan Triage Chief Complaint: Worthy C/O ED Provider: Neo Alcaraz Dx/Rx/DC Orders Clinical Impression: Urinary retention Prescriptions: No Action terazosin 5 MG capsule 5 mg PO DAILY amlodipine 10 MG tablet 10 mg PO DAILY lisinopril 40 MG tablet 40 mg PO BID ciprofloxacin HCl 500 MG tablet 500 mg PO BID Qty: 6 0RF phenazopyridine 100 MG tablet 100 mg PO TID PRN PRN (Reason: burning) Qty: 14 0RF ibuprofen 600 MG tablet 600 mg PO Q6H PRN PRN (Reason: Pain) Qty: 14 0RF ciprofloxacin HCl [Cipro] 500 mg tablet 500 mg PO BID Qty: 10 0RF Primary Care Provider: Eduardo Han Referrals: Eduardo Han MD [Primary Care Provider] - Disposition Disposition: Home, Self Care What to do if you have Problems For any increased pain, shortness of breath, bleeding, nausea or vomiting, chestpain, or any unexpected problems, contact your Primary Care Provider. Call [facility] ([phone]) or report to the closest Emergency Room. Call 911 if necessary. 02/07/23 1614 <Electronically signed by Neo Alcaraz DO> Cosigner Signature (if applicable): CC: Dr. Eduardo Han MD ~ Signed [facility] Work Phone: [phone] 522-494101-31-2012 History of Past illness Narrative* Problem Noted Date Diagnosed Date Resolved Date BPH (benign prostatic hyperplasia) 07/06/2011 11/24/2011 Hypertrophy of prostate with urinary obstruction and other lower urinary tract symptoms (LUTS) 05/25/2007 11/24/2011 Elevated prostate specific antigen (PSA) 05/09/2006 08/10/2011 documented as of this encounter (statuses as of 02/18/2023) [facility] Chuy Hightower [facility] February 21, 2023 9:53am Note Date/Time February 21, 2023 9:53am [facility] Medical Records Department [address] [place] [address] Counseling Note - Pharmacy 02/21/23 0952 MR#: [id number] Acct: [id number] Name: BARBARA MILAN MONI Rep #:[id number] : 1945 77 From: Chuy Hightower PCP: Dr. Eduardo Han MD Status: ADM IN Y Location: [facility] [id number] Pharmacy [facility] Service has performed discharge medication reconciliation and counseling for this patient. The patient's discharge medication list was reviewed for discrepancies and discrepancies were resolved. The patient was counseled on the following discharge medications and changes in medications for homegoing were reviewed. The Reason for Use, instructions for use, and potential side effects were reviewed for all new medications. The patient's questions regarding all of their medications were answered. 1. Ciprofloxacin 500 mg PO BID x 7 days The patient was able to verbally demonstrate an understanding of their dischargemedications. Medications at Discharge Home Medications amlodipine 10 mg tablet 10 mg PO DAILY 12/08/18 lisinopril 40 mg tablet 40 mg PO BID 12/08/18 terazosin 5 mg capsule 5 mg PO DAILY 12/08/18 gabapentin 100 mg capsule 100 mg PO Q8H 02/19/23 ciprofloxacin HCl 500 mg tablet (Cipro) 500 mg PO BID #14 tabs 02/20/23 02/21/23 0953 <Electronically signed by Chuy nelson> Date _ Chuy Hightower Cosigner Signature (if applicable): Date CC: ~ Signed [facility] Work Phone: Consult note Author Zhao Gilliland [facility] October 15, 2023 4:50am Note Date/Time October 15, 2023 4:50a m [facility] Medical Records Department [address] [place] [address] Consultation - Urology 10/15/23 0448 MR#: [id number] Acct: [id number] Name: BARBARA MILAN MONI Rep #:[id number] : 1945 77 From: Zhao Gilliland MD PCP: Dr. Kelvin Han MD Status :REG ER Location: ED Assessment & Plan Assessment/Plan (1) Bladder neck contracture: PLAN: Patient has a bladder neck contracture plan to do a cystoscopy and dilation bladder neck contracture. HPI Consult Data Date of Consult: 10/15/23 HPI Narrative Reason for Consultation: Bladder neck contracture HPI Narrative: BARBARA MILAN, is a 77 M who presents to the emergency room with difficulty withurination and just dribbling the last 2 days and it just got worse the last several hours. 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 Now I think is developed a bladder neck contracture so at the bedside I am to do a cystoscopy dilation of bladder neck contracture. [facility] Medical History Blood in urine Prostate cancer Home Medications amlodipine 10 mg tablet 10 mg PO DAILY 12/08/18 [History Last Taken 02/14/23] lisinopril 40 mg tablet 40 mg PO BID 12/08/18 [History Last Taken 02/14/23] terazosin 5 mg capsule 5 mg PO DAILY 12/08/18 [History Last Taken Unknown] gabapentin 100 mg capsule 100 mg PO Q8H 02/19/23 [History Last Taken Unknown] ciprofloxacin HCl 500 mg tablet (Cipro) 500 mg PO BID #14 tabs 02/20/23 [Rx Last Taken Unknown] cephalexin 500 mg capsule 500 mg PO Q8H 5 days #15 caps 03/01/23 [Rx Last Taken Unknown] Allergy/AdvReac Type Severity Reaction Status Date / Time losartan Allergy Mild Rash Verified 03/01/23 14:39 Sulfa (Sulfonamide Allergy Hives Verified 03/01/23 14:39 Antibiotics) atenolol AdvReac Mild WEAKNESS Verified 03/01/23 14:39 hydrochlorothiazide AdvReac Mild UNKNOWN Verified 03/01/23 14:39 indomethacin [From Indocin] AdvReac Mild GI upset Verified 03/01/23 14:39 Social History household members: spouse housing: house Smoking Status: Never smoker Physical Exam Const alert and oriented x3 General Appearance: cooperative HEENT normocephalic and head/scalp atraumatic Eyes PERRL and EOMs intact bilaterally Neck supple, no JVD and no carotid bruits Resp normal respiratory effort, normal air movement and clear to auscultation bilaterally Cardio regular rate and no murmurs GI normal to inspection, nondistended, normoactive bowel sounds and soft to palpation Extremity normal capillary refill General Extremity: no tenderness to palpation of joints or extremities; Negativefor edema Skin no rashes or lesions noted and no wounds General Skin Exam: no breakdown Neuro CN's II-XII intact bilaterally Psych affect normal Appearance: appropriate 10/15/23 0450 <Electronically signed by Zhao Gilliland MD> Cosigner Signature (if applicable): CC: Dr. Kelvin Han MD~ Signed [facility] Work Phone: Consult note Author Neida Parra [facility] Note Date/Time August 20, 2024 2:4 6pm [facility] Medical Records Department [address] [place] [address] Counseling Note - Pharmacy 08/20/24 1445 MR#: [id number] Acct: [id number] Name: BARBARA MILAN MONI Rep #:[id number] : 1945 78 From: Neida Parra PCP: Dr. Kelvin Han MD Status :ADM IN Y Location: [facility] [id number] Pharmacy [facility] Service has performed discharge medication reconciliation and counseling for this patient. 1. LEVOFLOXACIN 500MG PO DAILY X 5 DAYS 2. ACIDOPHOLIS LACTOBACILLUS 1C PO BID 3. HOLD LISINOPRIL The patient's discharge medication list was reviewed for discrepancies and discrepancies were resolved. The patient was counseled on the following discharge medications and changes in medications for homegoing were reviewed. The Reason for Use, instructions for use, and potential side effects were reviewed for all new medications. The patient's questions regarding all of their medications were answered. The patient was able to verbally demonstrate an understanding of their dischargemedications. Medications at Discharge Home Medications amlodipine 10 mg tablet 10 mg PO DAILY BLOOD PRESSURE 12/08/18 lisinopril 40 mg tablet 40 mg PO BID BLOOD PRESSURE 12/08/18 Held on 08/20/24. Instructions: Hold for 5 more days and resume lower dose of lisinopril terazosin 5 mg capsule 5 mg PO QPM BLOOD PRESSURE 12/08/18 multivit,Ca,min-iron 8 mg-folic acid 200 mcg-lycopene 600 mcg tablet (A Thru Z Men's Ultimate) 1 tab PO DAILY SUPPLEMENT 11/04/23 L.acidophil,salivari-Bifido bifidum-Strep thermoph 175 mg capsule 1 cap PO 2XD #0 caps 08/20/24 levofloxacin 500 mg tablet 500 mg PO DAILY 5 days #5 tabs 08/20/24 08/20/24 1446 <Electronically signed by Neida Parra> Date _ Neida Parra Cosigner Signature (if applicable): Date CC: ~ Signed [facility] Work Phone: evaluation noteNo assessment information available [facility] Work Phone: Evaluation note* Diagnosis Onset Date Resolution Status Abdominal pain acute Hematuria acute [facility] Work Phone: Evaluation note* Diagnosis Onset Date Resolution Status Abdominal pain acute Hematuria acute Prostate cancer acute [facility] Work Phone: Evaluation note* Diagnosis Onset Date Resolution Status Abdominal pain acute Hematuria acute Prostate cancer acute Complication, blocked Worthy catheter acute Hematuria acute Prostate cancer acute [facility] Work Phone: Evaluation note* Diagnosis Radiation cystitis- Primary Irradiation cystitis Prostate cancer (HCC) Malignant neoplasm of prostate 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 ZUHAIR (stress urinary incontinence), male Stress incontinence, male documented in this encounter [facility]* Diagnosis Screening for genitourinary condition Screening for other and unspecified genitourinary condition documented in this encounter [facility] note* Diagnosis Radiation cystitis- Primary Irradiation cystitis Prostate cancer (HCC) Malignant neoplasm of prostate 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 ZUHAIR (stress urinary incontinence), male Stress incontinence, male documented in this encounter [facility] note* Diagnosis HTN (hypertension)- Primary Unspecified essential hypertension Itching Unspecified pruritic disorder BENIGN HYPERTENSION Essential hypertension, benign Radiation cystitis- Primary Irradiation cystitis Prostate cancer (HCC) Malignant neoplasm of prostate 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 ZUHAIR (stress urinary incontinence), male Stress incontinence, male documented in this encounter [facility] note* Diagnosis HTN (hypertension)- Primary Unspecified essential hypertension Itching Unspecified pruritic disorder BENIGN HYPERTENSION Essential hypertension, benign Stricture of bladder neck- Primary Other specified disorders of bladder Radiation cystitis Irradiation cystitis documented in this encounter [facility] note* Diagnosis HTN (hypertension)- Primary Unspecified essential hypertension Itching Unspecified pruritic disorder BENIGN HYPERTENSION Essential hypertension, benign Prostate cancer (HCC)- Primary Malignant neoplasm of prostate Gross hematuria BENIGN HYPERTENSION Essential hypertension, benign Stricture of bladder neck Other specified disorders of bladder * Assessment & Plan Note - Dio Javier MD - 03/02/2024 10:23 AM EDTAssociated Problem(s): BENIGN HYPERTENSION -On lisinopril 40mg BID, amlodipine 10mg, terazosin 5mg every afternoon * Assessment & Plan Note - Dio Javier MD - 03/02/2024 10:22 AM EDTAssociated Problem(s): Gross hematuria -Has been experiencing hematuria and urinary retention this past year - multiple ED visits -Completed outpatient hyperbaric oxygen therapy 03/01 at [facility] for hematuria/friable, bleeding mucosa over the bladder neck seen on cysto -Has had additional clot evacs and bladder neck incisions this past year at [facility], had laser BNI November 13 2023 -Recent Admission early February at [facility] for gross hematuria- underwent cystoscopy on 02/11for clot evacuation, fulguration, bladder bx, cystogram -No hematuria for the past week * Assessment & Plan Note - Dio Javier MD - 03/02/2024 10:18 AM EDTAssociated Problem(s): Prostate cancer (HCC) -Prostate cancer s/p prostatectomy 2011 and radiation 2015 + ADT (androgen deprivation therapy) -Flexible cystoscopy bladder neck incision on 03/12/[address] Garcia for stricture of the bladder neck -Suprapubic catheter in place documented in this encounter [facility]* Diagnosis HTN (hypertension)- Primary Unspecified essential hypertension Itching Unspecified pruritic disorder BENIGN HYPERTENSION Essential hypertension, benign Stricture of bladder neck- Primary Other specified disorders of bladder Prostate cancer (HCC)- Primary Malignant neoplasm of prostate Gross hematuria BENIGN HYPERTENSION Essential hypertension, benign Stricture of bladder neck Other specified disorders of bladder documented in this encounter [facility] note* Diagnosis HTN (hypertension)- Primary Unspecified essential hypertension Itching Unspecified pruritic disorder BENIGN HYPERTENSION Essential hypertension, benign Prostate cancer (HCC)- Primary Malignant neoplasm of prostate Gross hematuria BENIGN HYPERTENSION Essential hypertension, benign Stricture of bladder neck- Primary Other specified disorders of bladder Prostate cancer (HCC) Malignant neoplasm of prostate Radiation cystitis Irradiation cystitis ZUHAIR (stress urinary incontinence), male Stress incontinence, male documented in this encounter [facility] note* Diagnosis Onset Date Resolution Status Admit Date Acute abdominal pain in righ t flank acute August 14, 2024 11:36pm Acute hypotension acute August 042024 11:36pm Acute UTI acute August 14 11:36pm History of prostate cancer acute August 14, 2024 11:36pm Sepsis acute August 14 11:36pm [facility] Work Phone: History and physical note Author Zhao Gilliland [facility] February 14, 2023 4:34pm Note Date/Time February 14, 2023 4:34pm [facility] Medical Records Department [address] [place] [address] History & Physical Exam 02/14/23 1633 MR#: [id number] Acct: [id number] Name: BARBARA MILAN MONI Rep #:[id number] : 1945 77 From: Zhao Gilliland MD PCP: Dr. Eduardo Han MD Status: ADM BRAEDEN Location: [facility] [id number] HPI - General General Date of Admission: 02/14/23 Date of Service: 02/14/23 Chief Complaint: Gross hematuria HPI Narrative BARBARA MILAN, is a 77 M who presents to the emergency room with gross hematuriahad a cystoscopy clot evacuation done at [facility] last week presents back to the emergency room with more bleeding and a taken back to surgery today hopefully find the bleeding and stop it with cauterization and three-way irrigation PFSH Medical History Blood in urine Prostate cancer Home Medications amlodipine 10 mg tablet 10 mg PO DAILY 12/08/18 [History Last Taken 02/14/23] lisinopril 40 mg tablet 40 mg PO BID 12/08/18 [History Last Taken 02/14/23] terazosin 5 mg capsule 5 mg PO DAILY 12/08/18 [History Last Taken Unknown] ibuprofen 600 mg tablet 600 mg PO Q6H PRN PRN Pain #14 tabs 12/15/18 [Rx Last Taken Unknown] Allergy/AdvReac Type Severity Reaction Status Date / Time losartan Allergy Mild Rash Verified 02/14/23 15:16 Sulfa (Sulfonamide Allergy Hives Verified 02/07/23 11:06 Antibiotics) atenolol AdvReac Mild WEAKNESS Verified 02/14/23 15:16 hydrochlorothiazide AdvReac Mild UNKNOWN Verified 02/14/23 15:16 indomethacin [From Indocin] AdvReac Mild GI upset Verified 02/14/23 15:16 Social History Smoking Status: Never smoker Vital Signs Vital Signs Vital Signs: 02/14/23 09:47 02/14/23 13:19 02/14/23 14:38 Temperature 96.7 F L 98.0 F Temperature Source Temporal Oral Pulse Rate 88 83 70 Respiratory Rate 18 16 18 Blood Pressure 174/91 H 142/74 H 144/68 H Blood Pressure Mean 118 96 93 Pulse Ox 97 99 Oxygen Delivery Method Room Air Room Air Room Air Weight Weight: 94.4 kg Body Mass Index (BMI) 29.8 Results Lab / Micro Data 02/14/23 13:40 02/14/23 13:40 Labs: Laboratory Results - last 24 hr 02/14/23 11:25: Urine Color Red, Urine Clarity Cloudy, Urine pH 8.0, Ur SpecificGravity 1.010, Urine Protein 500 H, Urine Glucose (UA) Normal, Urine Ketones 5 H, Urine Occult Blood 250 H, Urine Nitrite Negative, Urine Bilirubin Negative, Urine Urobilinogen Normal, Ur Leukocyte Esterase Negative, Urine RBC > 100 SEEN,Urine WBC 0 SEEN, Ur Squamous Epith Cells 0 SEEN, Urine Bacteria 0 SEEN, Urine Mucus 0 SEEN 02/14/23 13:40: WBC 7.4, RBC 3.35 L, Hgb 10.3 L, Hct 31.0 L, MCV 92.5, MCH 30.7,MCHC 33.2, RDW Std Deviation 42.8, RDW Coeff of Jerry 12.6, Plt Count 332, MPV 10.2, Immature Gran % (Auto) 0.800, Neut % (Auto) 83.6 H, Lymph % (Auto) 6.8 L, Stanley % (Auto) 7.1, Eos % (Auto) 1.4, Baso % (Auto) 0.3, Absolute Neuts (auto) 6.2, Absolute Lymphs (auto) 0.50 L, Nucleated RBC % 0, Differential Comment SCANNED, Sodium 139, Potassium 4.2, Chloride 107, Carbon Dioxide 22.0, Anion Gap10, BUN 24 H, Creatinine 1.60 H, Estim Creat Clear Calc 41.19, Est GFR (MDRD) AfAmer 54 L, Est GFR (MDRD) Non-Af 45 L, BUN/Creatinine Ratio 15.0, Glucose 125 H,Calcium 8.6 Radiology Impression Abdomen/Pelvis CT 02/14/23 13:27 IMPRESSION: Large polyp reported mass in the bladder as described. Diagnosed blastic process should be ruled out. Mild degree of bilateral hydronephrosis and perinephric stranding. Findings suggestive of a hyperdense cyst in the upper pole of the right kidney. Small bilateral pleural effusions with bibasilar atelectasis. Electronically Signed: Samy Natarajan MD at 14:21 EDT Reading Location ID and State: [facility] / [place] , Service support , 02/14/23 1634 <Electronically signed by Zhao Gilliland MD> Cosigner Signature (if applicable): CC: Dr. Eduardo Han MD; Dr. Zhao Gilliland MD~ Signed [facility] Work Phone: Hospital Discharge instructions Additional Instructions Implant Used?: [facility] Work Phone: Progress note Author [facility] Note Date/Time August 20, 2024 2:3 0pm [facility] Medical Records Department [address] [place] [address] Progress Note - Infect Disease 08/20/24 1429 MR#: [id number] Acct: [id number] Name: BARBARA MILAN MONI Rep #:[id number] : 1945 78 From: Cameron nelson MD PCP: Dr. Kelvin Han MD Status :ADM IN Location: [place] [address] Physical Exam Narrative Feeling better, no fever, no abd pain. Const alert and no apparent distress General Appearance: cooperative Resp normal air movement and clear to auscultation bilaterally Cardio regular rate and regular rhythm GI soft to palpation, non-tender and non-distended Skin no rashes or lesions noted ID ID: Route of nutrition/ use of supplements: [] Nutritional Intake: [] IV Site: [] Worthy Catheter: [] Assessment & Plan Assessment/Plan (1) Sepsis: QUALIFIERS: Sepsis type: sepsis due to unspecified organism Sepsis acute organ dysfunction status: with acute organ dysfunction Severe sepsis acute organ dysfunction type: acute renal failure Acute renal failure type: unspecified Severe sepsis shock status: with septic shock Qualified Code(s): A41.9 - Sepsis, unspecified organism; R65.21 - Severe sepsis with septic shock; N17.9 - Acute kidney failure, unspecified PLAN: Improved. Providencia bacteremia due to uti. Ucx with providencia, myroides and a smaller amount of enterococcus-like. Ok for d/c home with 5 days po levaquin. Will follow prn, d/w primary team (2) Bacteremia due to Gram-negative bacteria: (3) UTI (urinary tract infection) due to urinary indwelling catheter: QUALIFIERS: Indwelling urinary catheter type: cystostomy catheter Encounter type: initial encounter Qualified Code(s): T83.510A - Infection and inflammatory reaction due to cystostomy catheter, initial encounter; N39.0 - Urinary tract infection, site not specified 08/20/24 1430 <Electronically signed by Cameron Giron MD> Cosigner Signature (if applicable): CC: ~ Signed [facility] Work Phone: Reason for referral (narrative)No reason for referral information availableWWright-Pat[facility] Work Phone: Advance Directives No Advanced Directives Records Found Advance Directive Response Recorded Date/ Time Living Will Yes December 08, 2018 3 :18pm Power of Sap Bw Architect Yes December 08, 2018 3:18pm Advance Directive Response Recorded Date/ Time Living Will Yes December 08, 2018 2 :18pm Power of Sap Bw Architect Yes December 08, 2018 2:18pm Advance Directive Response Recorded Date/ Time Name of Medical Power of Sap Bw Architect recalled February 02, 2023 12:41pm Living Will Yes February 02 12:41pm Power of Sap Bw Architect Yes February 02, 2 023 12:41pm Advance Directive Response Recorded Date/ Time Name of Medical Power of Sap Bw Architect recalled February 02, 2023 12:41pm Name of Medical Power of Sap Bw Architect YAZ/ February 07, 2023 1:01pm Living Will Yes February 07, 2 023 1:01pm Power of Sap Bw Architect Yes February 07, 2023 1:01pm Advance Directive Response Recorded Date/ Time Name of Medical Power of Sap Bw Architect recalled February 02, 2023 12:41pm Living Will No February 14, 2023 10:21am Power of Sap Bw Architect No February 10:21am Name of Medical Power of Sap Bw Architect YAZ/ February 07, 2023 1:01pm Advance Directive Response Recorded Date/ Time Name of Medical Power of Sap Bw Architect recalled February 02, 2023 12:41pm Living Will No February 14, 2023 6:28pm Power of Sap Bw Architect No February 6:28pm Name of Medical Power of Sap Bw Architect YAZ/ February 07, 2023 1:01pm Documents on File Type Date Recorded 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 Advance Directive(s) 08/24/2011 9:03 PM Advance Directive Response Recorded Date/ Time Name of Medical Power of Sap Bw Architect recalled February 02, 2023 12:41pm Name of Medical Power of Sap Bw Architect YAZ/ February 07, 2023 1:01pm Name of Medical Power of Sap Bw Architect February 20, 2023 2:24am Living Will Yes February 20, 2023 2:24am Power of Sap Bw Architect Yes February 2:24am Advance Directive Response Recorded Date/ Time Name of Medical Power of Sap Bw Architect recalled February 02, 2023 12:41pm Name of Medical Power of Sap Bw Architect March 01, 2023 2:33pm Living Will Yes March 01, 2023 2:33pm Power of Sap Bw Architect Yes February 2:33pm Name of Medical Power of Sap Bw Architect YAZ/ February 07, 2023 1:01pm Name of Medical Power of Sap Bw Architect February 20, 2023 2:24am Advance Directive Response Recorded Date/ Time Living Will Yes March 01, 2023 1:33pm Power of Sap Bw Architect Yes February 1:33pm Advance Directive Response Recorded Date/ Time Name of Medical Power of Sap Bw Architect maría elena October 15, 2023 3:32am Living Will Yes October 15, 2023 3 :32am Power of Sap Bw Architect Yes October 15, 2023 3:32am Documents on File Type Date Recorded 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 Advance Directive(s) 08/24/2011 9:03 PM Advance Directive Response Recorded Date/ Time Living Will Yes June 08 7:07am Power of Sap Bw Architect Yes June 08, 7:07am Name of Medical Power of Sap Bw Architect - María Elena June 08, 2024 7:07am Living Will Yes August 14, 2024 9:13pm Power of Sap Bw Architect Yes August 14 9:13pm Name of Medical Power of Sap Bw Architect María Elena Milan August 14, 2024 9:13pm Advance Directive Response Recorded Date/ Time Living Will Yes June 08 7:07am Power of Sap Bw Architect Yes June 08, 025 7:07am Name of Medical Power of Sap Bw Architect - María Elena June 08, 2024 7:07am Living Will Yes August 15, 2024 12:06am Power of Sap Bw Architect Yes August 15 12:06am Name of Medical Power of Sap Bw Architect María Elena Milan August 15, 2024 12:06am Advance Directive Response Recorded Date/ Time Living Will Yes June 08 7:07am Do you have a Healthcare Power of Sap Bw Architect? Yes June 08, 2024 7:07am Name of Medical Power of Sap Bw Architect - María Elena June 08, 2024 7:07am Living Will Yes August 15, 2024 12:06am Do you have a Healthcare Power of Sap Bw Architect? Yes August 15, 2024 12:06am Name of Medical Power of Sap Bw Architect María Elena Milan August 15, 2024 12:06am Advance Directive Response Recorded Date/ Time Living Will Yes August 15, 2024 12:06am Do you have a Healthcare Power of Sap Bw Architect? Yes August 15, 2024 12:06am Name of Medical Power of Sap Bw Architect María Elena Milan August 15, 2024 12:06am Do you have a Healthcare Power of Sap Bw Architect? No October 16, 2024 1:50am Advance Directive Response Recorded Date/ Time Do you have a Healthcare Power of Sap Bw Architect? Yes November 13, 2024 11:16pm Living Will Yes August 15, 2024 12:06am Do you have a Healthcare Power of Sap Bw Architect? Yes August 15, 2024 12:06am Name of Medical Power of Sap Bw Architect María Elenatrang Milan August 15, 2024 12:06am Do you have a Healthcare Power of Sap Bw Architect? No October 16, 2024 1:50am Chief Complaint and Reason for Visit Chief Complaint 2 ORDERING DOCTORS/E ORDERS DR HAN Chief Complaint PSA Chief Complaint PSA NO ORDER Chief Complaint PSA NO ORDER URINARY Chief Complaint PSA NO ORDER URINARY BLOOD IN WORTHY Chief Complaint PSA NO ORDER URINARY BLOOD IN WORTHY HEMATURIA AND PAIN Reason for Visit Abdominal pain Hematuria Chief Complaint PSA NO ORDER URINARY BLOOD IN WORTHY HEMATURIA AND PAIN Reason for Visit Abdominal pain Hematuria Prostate cancer Chief Complaint PSA NO ORDER URINARY BLOOD IN WORTHY HEMATURIA AND PAIN RADIATION CYSTITIS Reason for Visit Abdominal pain Hematuria Prostate cancer Complication, blocked Worthy catheter Hematuria Prostate cancer Chief Complaint NO ORDER URINARY BLOOD IN WORTHY HEMATURIA AND PAIN RADIATION CYSTITIS EORDERS syncope EORDERS Reason for Visit Abdominal pain Hematuria Prostate cancer Complication, blocked Worthy catheter Hematuria Prostate cancer Chief Complaint EORDERS Chief Complaint gu Chief Complaint Admit Date cathether June 08, 2024 6: 04am E-ORDER July 19, 2024 10:58am SEPSIS, UTI, LEUKOPENIA & RIGHT FLANK PA IN WITH August 14, 2024 11:36pm Reason for Visit Admit Date Acute abdominal pain in right flank Denny h 2024 11:36pm Acute hypotension August 14, 2024 11: 36pm Acute UTI August 14, 2024 11: 36pm History of prostate cancer August 14, 2 025 11:36pm Sepsis August 14, 2024 11: 36pm Chief Complaint Admit Date cathether June 08, 2024 6: 04am E-ORDER July 19, 2024 10:58am SEPSIS, UTI, LEUKOPENIA & RIGHT FLANK PA IN WITH August 14, 2024 11:36pm SEPSIS, UTI, LEUKOPENIA & RIGHT FLANK PA IN WITH August 15, 2024 7:07am SEPSIS, UTI, LEUKOPENIA & RIGHT FLANK PA IN WITH August 15, 2024 8:04am SEPSIS, UTI, LEUKOPENIA & RIGHT FLANK PA IN WITH August 15, 2024 2:28pm SEPSIS, UTI, LEUKOPENIA & RIGHT FLANK PA IN WITH August 16, 2024 7:50am SEPSIS, UTI, LEUKOPENIA & RIGHT FLANK PA IN WITH August 16, 2024 7:54am SEPSIS, UTI, LEUKOPENIA & RIGHT FLANK PA IN WITH August 17, 2024 7:01am SEPSIS, UTI, LEUKOPENIA & RIGHT FLANK PA IN WITH August 17, 2024 8:08am SEPSIS, UTI, LEUKOPENIA & RIGHT FLANK PA IN WITH August 18, 2024 7:22am SEPSIS, UTI, LEUKOPENIA & RIGHT FLANK PA IN WITH August 19, 2024 9:03am SEPSIS, UTI, LEUKOPENIA & RIGHT FLANK PA IN WITH August 20, 2024 12:28pm Reason for Visit Admit Date Acute abdominal pain in right flank Denny h 2024 11:36pm Acute hypotension August 14, 2024 11: 36pm Acute UTI August 14, 2024 11: 36pm CHRIS (acute kidney injury) August 14 11:36pm Bacteremia due to Gram-negative bacteria August 14, 2024 11:36pm Hematuria syndrome August 14, 2024 11: 36pm History of prostate cancer August 14, 025 11:36pm History of prostatectomy August 14 11:36pm Lesion of bladder August 14, 2024 11: 36pm Overweight (BMI 25.0-29.9) August 14, 025 11:36pm Sepsis August 14, 2024 11: 36pm Septic shock August 14, 2024 11: 36pm UTI (urinary tract infection ) due to urinary indwelling catheter August 14, 2024 11:36pm Chronic radiation cystitis August 14 025 11:36pm Chief Complaint Admit Date cathether June 08, 2024 6: 04am E-ORDER July 19, 2024 10:58am SEPSIS, UTI, LEUKOPENIA & RIGHT FLANK PA IN WITH August 14, 2024 11:36pm SEPSIS, UTI, LEUKOPENIA & RIGHT FLANK PA IN WITH August 15, 2024 7:07am SEPSIS, UTI, LEUKOPENIA & RIGHT FLANK PA IN WITH August 15, 2024 8:04am SEPSIS, UTI, LEUKOPENIA & RIGHT FLANK PA IN WITH August 15, 2024 2:28pm SEPSIS, UTI, LEUKOPENIA & RIGHT FLANK PA IN WITH August 16, 2024 7:50am SEPSIS, UTI, LEUKOPENIA & RIGHT FLANK PA IN WITH August 16, 2024 7:54am SEPSIS, UTI, LEUKOPENIA & RIGHT FLANK PA IN WITH August 17, 2024 7:01am SEPSIS, UTI, LEUKOPENIA & RIGHT FLANK PA IN WITH August 17, 2024 8:08am SEPSIS, UTI, LEUKOPENIA & RIGHT FLANK PA IN WITH August 18, 2024 7:22am SEPSIS, UTI, LEUKOPENIA & RIGHT FLANK PA IN WITH August 19, 2024 9:03am SEPSIS, UTI, LEUKOPENIA & RIGHT FLANK PA IN WITH August 20, 2024 12:28pm EORDER AND PAPER ORDER September 18, 2024 8:14am Reason for Visit Admit Date Acute abdominal pain in right flank Denny h 2024 11:36pm Acute hypotension August 14, 2024 11: 36pm Acute UTI August 14, 2024 11: 36pm HCRIS (acute kidney injury) August 14 11:36pm Hematuria syndrome August 14, 2024 11: 36pm History of prostate cancer August 14 025 11:36pm History of prostatectomy August 14 11:36pm Lesion of bladder August 14, 2024 11: 36pm Overweight (BMI 25.0-29.9) August 14 025 11:36pm Sepsis August 14, 2024 11: 36pm Septic shock August 14, 2024 11: 36pm Chronic radiation cystitis August 14 025 11:36pm Bacteremia due to Gram-negative bacteria August 14, 2024 11:36pm UTI (urinary tract infection ) due to urinary indwelling catheter August 14, 2024 11:36pm Chief Complaint Admit Date E-ORDER July 19, 2024 10:58am SEPSIS, UTI, LEUKOPENIA & RIGHT FLANK PA IN WITH August 14, 2024 11:36pm SEPSIS, UTI, LEUKOPENIA & RIGHT FLANK PA IN WITH August 15, 2024 7:07am SEPSIS, UTI, LEUKOPENIA & RIGHT FLANK PA IN WITH August 15, 2024 8:04am SEPSIS, UTI, LEUKOPENIA & RIGHT FLANK PA IN WITH August 15, 2024 2:28pm SEPSIS, UTI, LEUKOPENIA & RIGHT FLANK PA IN WITH August 16, 2024 7:50am SEPSIS, UTI, LEUKOPENIA & RIGHT FLANK PA IN WITH August 16, 2024 7:54am SEPSIS, UTI, LEUKOPENIA & RIGHT FLANK PA IN WITH August 17, 2024 7:01am SEPSIS, UTI, LEUKOPENIA & RIGHT FLANK PA IN WITH August 17, 2024 8:08am SEPSIS, UTI, LEUKOPENIA & RIGHT FLANK PA IN WITH August 18, 2024 7:22am SEPSIS, UTI, LEUKOPENIA & RIGHT FLANK PA IN WITH August 19, 2024 9:03am SEPSIS, UTI, LEUKOPENIA & RIGHT FLANK PA IN WITH August 20, 2024 12:28pm EORDER AND PAPER ORDER September 18, 2024 8:14am worthy not draining October 16, 2024 1:50a m Chief Complaint Admit Date E-ORDER July 19, 2024 10:58am SEPSIS, UTI, LEUKOPENIA & RIGHT FLANK PA IN WITH August 14, 2024 11:36pm SEPSIS, UTI, LEUKOPENIA & RIGHT FLANK PA IN WITH August 15, 2024 7:07am SEPSIS, UTI, LEUKOPENIA & RIGHT FLANK PA IN WITH August 15, 2024 8:04am SEPSIS, UTI, LEUKOPENIA & RIGHT FLANK PA IN WITH August 15, 2024 2:28pm SEPSIS, UTI, LEUKOPENIA & RIGHT FLANK PA IN WITH August 16, 2024 7:50am SEPSIS, UTI, LEUKOPENIA & RIGHT FLANK PA IN WITH August 16, 2024 7:54am SEPSIS, UTI, LEUKOPENIA & RIGHT FLANK PA IN WITH August 17, 2024 7:01am SEPSIS, UTI, LEUKOPENIA & RIGHT FLANK PA IN WITH August 17, 2024 8:08am SEPSIS, UTI, LEUKOPENIA & RIGHT FLANK PA IN WITH August 18, 2024 7:22am SEPSIS, UTI, LEUKOPENIA & RIGHT FLANK PA IN WITH August 19, 2024 9:03am SEPSIS, UTI, LEUKOPENIA & RIGHT FLANK PA IN WITH August 20, 2024 12:28pm EORDER AND PAPER ORDER September 18, 2024 8:14am worthy not draining October 16, 2024 1:50a m gu November 13, 2024 8:27 pm Summary Purpose Family History No Family History Records FoundNo Family History Records FoundNo Family History Records Found Reason for Referral Specialty Diagnoses / Procedures Referred By Ayleen t Referred To Contact Diagnoses Stricture of bladder neck Procedures REFER TO PACC / [facility] - PREOPERATIVE OPTIMIZATION OFFICE/OUTPATIENT [facility] 60 MINUTES Roberta Martin PA-C [id number] [id number] Referral ID Status Reason Start Date Expiration Date Visits Requested Visits Authorized [id number] Authorized PCP Requested Referral 02/28/2024 02/27/2025 1 1 Additional Source Comments Goals (unrecognized section and content) Goals may be documented in a n alternate sectionGoals may be documented in an alternate sectionGoals may be documented in an alternate sectionGoals may be documented in an alternate sectionGoals may be documented in an alternate sectionGoals may be documented in an alternate sectionGoals may be documented in an alternate sectionGoals may be documented in an alternate sectionGoals may be documented in an alternate section Care Teams (unrecognized sec tion and content) Team Status: Active Member Role Status Dates Dr. Eduardo Han MD Family Provider Active Dr. Eduardo Han MD Primary Care Provider Activ e Team Status: Inactive Member Role Status Dates Dr. Eduardo Han MD Primary Care Provider Activ e Dr. Zhao Gilliland MD Attending Provider, Referr ing Provider Active Team Status: Inactive Member Role Status Dates Dr. Eduardo Han MD Primary Care Provider, Attending Provider, Referring Provider Active Team Status: Inactive Member Role Status Dates Dr. Eduardo Han MD Primary Care Provider Activ e Dr. Columba Decker MD Emergency Provider Active Team Status: Inactive Member Role Status Dates Dr. Eduardo Han MD Primary Care Provider Activ e Dr. Neo Alcaraz DO Emergency Provider Active Team Status: Inactive Member Role Status Dates Dr. Eduardo Han MD Primary Care Provider Activ e Dr. Columba Decker MD Attending Provider, Emergency Provider Active Team Status: Active Member Role Status Dates Dr. Eduardo Han MD Primary Care Provider Activ e Dr. Damian Melvin DO Emergency Provider Active Dr. Zhao Gilliland MD Admit Provider, Attending Provider Active Team Status: Inactive Member Role Status Dates Dr. Eduardo Han MD Primary Care Provider Activ e Dr. Neo Alcaraz DO Attending Provider, Emergency Provider Active Team Status: Inactive Member Role Status Dates Dr. Eduardo Han MD Primary Care Provider Activ e Dr. Damian Melvin DO Emergency Provider Active Dr. Zhao Gilliland MD Admit Provider, Attending Provider Active Burr Machine Operator Relationship Specialty Start Date End Date Kelvin Han MD [address] [place], [place] [address] PCP - General Family Medicine 08/30/18 Nayan Gonzalez MD, [address] [place] [address] Physician Radiation Oncology 10/09/15 Team Status: Inactive Member Role Status Dates Dr. Eduardo Han MD Primary Care Provider Activ e Dr. Temi Macias DO Emergency Provider Active Dr. Zhao Gilliland MD Admit Provider, Attending Provider Active Team Status: Inactive Member Role Status Dates Dr. Eduardo Han MD Primary Care Provider Activ e Dr. Mannie Chandler DO Attending Provider, Emergency P coleen Active Team Status: Active Member Role Status Dates Dr. Kelvin Han MD Family Provider Active Dr. Kelvin Han MD Primary Care Provider Acti ve Team Status: Inactive Member Role Status Dates Dr. Kelvin Han MD Primary Care Provider Acti ve Dr. Zhao Gilliland MD Attending Provider, Referr ing Provider Active Team Status: Inactive Member Role Status Dates Dr. Kelvin Han MD Primary Care Provider Acti ve Dr. Columba Decker MD Emergency Provider Active Burr Machine Operator Relationship Specialty Start Date End Date Kelvin Han MD [address] [place] [address] PCP - General Family Medicine 08/30/18 Nayan Gonzalez MD [address] [place] [address] Physician Radiation Oncology 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 Start Date End Date Kelvin Han MD [address] [place] [address] PCP - General Family Medicine 08/30/18 Nayan Gonzalez MD [address] [place] [address] Physician Radiation Oncology 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 Start Date End Date Kelvin Han MD [address] [place] [address] PCP - General Family Medicine 08/30/18 Nayan Gonzalez MD [address] [place] [address] Physician Radiation Oncology 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 Start Date End Date Kelvin Han MD [address] [place] [address] PCP - General Family Medicine 08/30/18 Nayan Gonzalez MD [address] [place] [address] Physician Radiation Oncology 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 Start Date End Date Kelvin Han MD [address] [place] [address] PCP - General Family Medicine 08/30/18 Nayan Gonzalez MD [address] [place] [address] Physician Radiation Oncology 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 Start Date End Date Kelvin Han MD [address] [place] [address] PCP - General Family Medicine 08/30/18 Nayan Gonzalez MD [address] [place] [address] Physician Radiation Oncology 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 Start Date End Date Kelvin Han MD [address] [place] [address] PCP - General Family Medicine 08/30/18 Nayan Gonzalez MD [address] [place] [address] Physician Radiation Oncology 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 Start Date End Date Kelvin Han MD [address] [place] [address] PCP - General Family Medicine 08/30/18 Nayan Gonzalez MD [address] [place] [address] Physician Radiation Oncology 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 Kelvin Han MD Primary Care Provider Acti ve Team Status: Inactive Member Role Status Dates Dr. Kelvin Han MD Primary Care Provider Acti ve Start: June 08, 2024 End: June 08, 2024 Dr. Reuben Kirkland DO Attending Provider Active Start: June 08, 2024 End: June 08, 2024 Dr. Reuben Kirkland DO Emergency Provider Active Start: June 08, 2024 End: June 08, 2024 Team Status: Inactive Member Role Status Dates Dr. Kelvin Han MD Primary Care Provider Acti ve Start: July 19, 2024 End: July 19, 2024 Dr. Kelvin Han MD Attending Provider Active Start: July 19, 2024 End: July 19, 2024 Dr. Kelvin Han MD Referring Provider Active Start: July 19, 2024 End: July 19, 2024 Team Status: Active Member Role Status Dates Dr. Kelvin Han MD Primary Care Provider Acti ve Start: August 14, 2024 Dr. Kishore Nicolas MD Emergency Provider Active S tart: August 14, 2024 Dr. Rajinder Acosta DO Admit Provider Active Start: August 14, 2024 Dr. Rajinder Acosta DO Attending Provider Active Start: August 14, 2024 Team Status: Inactive Member Role Status Dates Dr. Kelvin Han MD Primary Care Provider Acti ve Start: August 14, 2024 End: August 20, 2024 Dr. Kishore Nicolas MD Emergency Provider Active S tart: August 14, 2024 End: August 20, 2024 Dr. Rajinder Acosta DO Admit Provider Active Start: August 14, 2024 End: August 20, 2024 Dr. Rajinder Acosta DO Other Provider Active Start: August 14, 2024 End: August 20, 2024 Dr. Zhao Gilliland MD Other Provider Active Start: August 14, 2024 End: August 20, 2024 Dr. Cameron Giron MD Other Provider Active Start: August 14, 2024 End: August 20, 2024 Dr. Jameel Herrera MD Attending Provider Active Start: August 14, 2024 End: August 20, 2024 Dr. Juany Souza MD Other Provider Active Star t: August 14, 2024 End: August 20, 2024 Team Status: Active Member Role Status Dates Dr. Kelvin Han MD Primary Care Provider Acti ve Start: August 15, 2024 Dr. Kishore Nicolas MD Emergency Provider Active S tart: August 15, 2024 Dr. Rajinder Acosta DO Admit Provider Active Start: August 15, 2024 Dr. Rajinder Acosta DO Other Provider Active Start: August 15, 2024 Dr. Juany Souza MD Attending Provider Active Start: August 15, 2024 Dr. Juany Souza MD Other Provider Active Star t: August 15, 2024 Dr. Mina Tracy MD Other Provider Active Start: August 15, 2024 Dr. Aston Mosley MD Other Provider Active Start: August 15, 2024 Dr. Balwinder Butler MD Other Provider Active Star t: August 15, 2024 Dr. Darryn Underwood DO Other Provider Active Start : August 15, 2024 Dr. Rajinder Mishra MD Other Provider Active Sta rt: August 15, 2024 Dr. Jared Camacho MD Other Provider Active St art: August 15, 2024 Dr. Jt Salinas MD Other Provider Active S tart: August 15, 2024 Dr. Darlene Lamb MD Other Provider Active Start: August 15, 2024 Dr. Abraham Rivera MD Other Provider Active Start : August 15, 2024 Dr. Devon Tavera MD Other Provider Active Start: August 15, 2024 Dr. Reuben Bass MD Other Provider Active Start : August 15, 2024 Dr. Latasha Rodriguez MD Other Provider Active Star t: August 15, 2024 Dr. Bonnie Flood MD Other Provider Active Sta rt: August 15, 2024 Dr. Nathaly Sepulveda MD Other Provider Active Sta rt: August 15, 2024 Dr. Elias Booth MD Other Provider Active Star t: August 15, 2024 Dr. Kevin Laureano MD Other Provider Active St art: August 15, 2024 Dr. Reuben Raya MD Other Provider Active Star t: August 15, 2024 Dr. Vicente Ordonez DO Other Provider Active St art: August 15, 2024 Dr. Audelia Irizarry MD Other Provider Active Start: August 15, 2024 Dr. Sobeida Thompson MD Other Provider Active St art: August 15, 2024 Dr. Holger Marshall DO Other Provider Active Start: August 15, 2024 Dr. Wilfredo Doran MD Other Provider Active Star t: August 15, 2024 Dr. Alcides Nieto MD Other Provider Active Sta rt: August 15, 2024 Dr. Zhao Gilliland MD Other Provider Active Start: August 15, 2024 Team Status: Active Member Role Status Dates Dr. Kelvin Han MD Primary Care Provider Acti ve Start: August 15, 2024 Dr. Kishore Nicolas MD Emergency Provider Active S tart: August 15, 2024 Dr. Rajinder Acosta DO Admit Provider Active Start: August 15, 2024 Dr. Rajinder Acosta DO Other Provider Active Start: August 15, 2024 Dr. Juany Souza MD Other Provider Active Star t: August 15, 2024 Dr. Mina Tracy MD Other Provider Active Start: August 15, 2024 Dr. Aston Mosley MD Other Provider Active Start: August 15, 2024 Dr. Balwinder Butler MD Other Provider Active Star t: August 15, 2024 Dr. Darryn Underwood DO Attending Provider Active S tart: August 15, 2024 Dr. Darryn Underwood DO Other Provider Active Start : August 15, 2024 Dr. Rajinder Mishra MD Other Provider Active Sta rt: August 15, 2024 Dr. Jared Camacho MD Other Provider Active St art: August 15, 2024 Dr. Jt Salinas MD Other Provider Active S tart: August 15, 2024 Dr. Darlene Lamb MD Other Provider Active Start: August 15, 2024 Dr. Abraham Rivera MD Other Provider Active Start : August 15, 2024 Dr. Devon Tavera MD Other Provider Active Start: August 15, 2024 Dr. Reuben Bass MD Other Provider Active Start : August 15, 2024 Dr. Latasha Rodriguez MD Other Provider Active Star t: August 15, 2024 Dr. Bonnie Flood MD Other Provider Active Sta rt: August 15, 2024 Dr. Nathaly Sepulveda MD Other Provider Active Sta rt: August 15, 2024 Dr. Elias Booth MD Other Provider Active Star t: August 15, 2024 Dr. Kevin Laureano MD Other Provider Active St art: August 15, 2024 Dr. Reuben Raya MD Other Provider Active Star t: August 15, 2024 Dr. Vicente Ordonez DO Other Provider Active St art: August 15, 2024 Dr. Audelia Irizarry MD Other Provider Active Start: August 15, 2024 Dr. Sobeida Thompson MD Other Provider Active St art: August 15, 2024 Dr. Holger Marshall DO Other Provider Active Start: August 15, 2024 Dr. Wilfredo Doran MD Other Provider Active Star t: August 15, 2024 Dr. Alcides Nieto MD Other Provider Active Sta rt: August 15, 2024 Dr. Zhao Gilliland MD Other Provider Active Start: August 15, 2024 Team Status: Active Member Role Status Dates Dr. Kelvin Han MD Primary Care Provider Acti ve Start: August 15, 2024 Dr. Kishore Nicolas MD Emergency Provider Active S tart: August 15, 2024 Dr. Rajinder Acosta DO Admit Provider Active Start: August 15, 2024 Dr. Rajinder Acosta DO Other Provider Active Start: August 15, 2024 Dr. Juany Souza MD Other Provider Active Star t: August 15, 2024 Dr. Mina Tracy MD Other Provider Active Start: August 15, 2024 Dr. Aston Mosley MD Other Provider Active Start: August 15, 2024 Dr. Balwinder Butler MD Other Provider Active Star t: August 15, 2024 Dr. Darryn Underwood DO Other Provider Active Start : August 15, 2024 Dr. Rajinder Mishra MD Other Provider Active Sta rt: August 15, 2024 Dr. Jared Camacho MD Other Provider Active St art: August 15, 2024 Dr. Jt Salinas MD Other Provider Active S tart: August 15, 2024 Dr. Darlene Lamb MD Other Provider Active Start: August 15, 2024 Dr. Abraham Rivera MD Other Provider Active Start : August 15, 2024 Dr. Devon Tavera MD Other Provider Active Start: August 15, 2024 Dr. Reuben Bass MD Other Provider Active Start : August 15, 2024 Dr. Latasha Rodriguez MD Other Provider Active Star t: August 15, 2024 Dr. Bonnie Flood MD Other Provider Active Sta rt: August 15, 2024 Dr. Nathaly Sepulveda MD Other Provider Active Sta rt: August 15, 2024 Dr. Elias Booth MD Other Provider Active Star t: August 15, 2024 Dr. Kevin Laureano MD Other Provider Active St art: August 15, 2024 Dr. Reuben Raya MD Other Provider Active Star t: August 15, 2024 Dr. Vicente Ordonez DO Other Provider Active St art: August 15, 2024 Dr. Audelia Irizarry MD Other Provider Active Start: August 15, 2024 Dr. Sobeida Thompson MD Other Provider Active St art: August 15, 2024 Dr. Holger Marshall DO Other Provider Active Start: August 15, 2024 Dr. Wilfredo Doran MD Other Provider Active Star t: August 15, 2024 Dr. Alcides Nieto MD Other Provider Active Sta rt: August 15, 2024 Dr. Zhao Gilliland MD Other Provider Active Start: August 15, 2024 Tiffanie Gorman NP-C Attending Provider Active S tart: August 15, 2024 Team Status: Active Member Role Status Dates Dr. Kelvin Han MD Primary Care Provider Acti ve Start: August 16, 2024 Dr. Kishore Nicolas MD Emergency Provider Active S tart: August 16, 2024 Dr. Rajinder Acosta DO Admit Provider Active Start: August 16, 2024 Dr. Rajinder Acosta DO Other Provider Active Start: August 16, 2024 Dr. Juany Souza MD Other Provider Active Star t: August 16, 2024 Dr. Mina Tracy MD Other Provider Active Start: August 16, 2024 Dr. Aston Mosley MD Other Provider Active Start: August 16, 2024 Dr. Balwinder Butler MD Other Provider Active Star t: August 16, 2024 Dr. Darryn Underwood DO Attending Provider Active S tart: August 16, 2024 Dr. Darryn Underwood DO Other Provider Active Start : August 16, 2024 Dr. Rajinder Mishra MD Other Provider Active Sta rt: August 16, 2024 Dr. Jared Camacho MD Other Provider Active St art: August 16, 2024 Dr. Jt Salinas MD Other Provider Active S tart: August 16, 2024 Dr. Darlene Lamb MD Other Provider Active Start: August 16, 2024 Dr. Abraham Rivera MD Other Provider Active Start : August 16, 2024 Dr. Devon Tavera MD Other Provider Active Start: August 16, 2024 Dr. Reuben Bass MD Other Provider Active Start : August 16, 2024 Dr. Latasha Rodriguez MD Other Provider Active Star t: August 16, 2024 Dr. Bonnie Flood MD Other Provider Active Sta rt: August 16, 2024 Dr. Nathaly Sepulveda MD Other Provider Active Sta rt: August 16, 2024 Dr. Elias Booth MD Other Provider Active Star t: August 16, 2024 Dr. Kevin Laureano MD Other Provider Active St art: August 16, 2024 Dr. Reuben Raya MD Other Provider Active Star t: August 16, 2024 Dr. Vicente Ordonez DO Other Provider Active St art: August 16, 2024 Dr. Audelia Irizarry MD Other Provider Active Start: August 16, 2024 Dr. Sobeida Thompson MD Other Provider Active St art: August 16, 2024 Dr. Holger Marshall DO Other Provider Active Start: August 16, 2024 Dr. Wilfredo Doran MD Other Provider Active Star t: August 16, 2024 Dr. Alcides Nieto MD Other Provider Active Sta rt: August 16, 2024 Dr. Zhao Gilliland MD Other Provider Active Start: August 16, 2024 Team Status: Active Member Role Status Dates Dr. Kelvin Han MD Primary Care Provider Acti ve Start: August 16, 2024 Dr. Kishore Nicolas MD Emergency Provider Active S tart: August 16, 2024 Dr. Rajinder Acosta DO Admit Provider Active Start: August 16, 2024 Dr. Rajinder Acosta DO Other Provider Active Start: August 16, 2024 Dr. Juany Souza MD Attending Provider Active Start: August 16, 2024 Dr. Juany Souza MD Other Provider Active Star t: August 16, 2024 Dr. Mina Tracy MD Other Provider Active Start: August 16, 2024 Dr. Aston Mosley MD Other Provider Active Start: August 16, 2024 Dr. Balwinder Butler MD Other Provider Active Star t: August 16, 2024 Dr. Darryn Underwood DO Other Provider Active Start : August 16, 2024 Dr. Rajinder Mishra MD Other Provider Active Sta rt: August 16, 2024 Dr. Jared Camacho MD Other Provider Active St art: August 16, 2024 Dr. Jt Salinas MD Other Provider Active S tart: August 16, 2024 Dr. Darlene Lamb MD Other Provider Active Start: August 16, 2024 Dr. Abraham Rivera MD Other Provider Active Start : August 16, 2024 Dr. Devon Tavera MD Other Provider Active Start: August 16, 2024 Dr. Reuben Bass MD Other Provider Active Start : August 16, 2024 Dr. Latasha Rodriguez MD Other Provider Active Star t: August 16, 2024 Dr. Bonnie Flood MD Other Provider Active Sta rt: August 16, 2024 Dr. Nathaly Sepulveda MD Other Provider Active Sta rt: August 16, 2024 Dr. Elias Booth MD Other Provider Active Star t: August 16, 2024 Dr. Kevin Laureano MD Other Provider Active St art: August 16, 2024 Dr. Reuben Raya MD Other Provider Active Star t: August 16, 2024 Dr. Vicente Ordonez DO Other Provider Active St art: August 16, 2024 Dr. Audelia Irizarry MD Other Provider Active Start: August 16, 2024 Dr. Sobeida Thompson MD Other Provider Active St art: August 16, 2024 Dr. Holger Marshall DO Other Provider Active Start: August 16, 2024 Dr. Wilfredo Doran MD Other Provider Active Star t: August 16, 2024 Dr. Alcides Nieto MD Other Provider Active Sta rt: August 16, 2024 Dr. Zhao Gilliland MD Other Provider Active Start: August 16, 2024 Team Status: Active Member Role Status Dates Dr. Kelvin Han MD Primary Care Provider Acti ve Start: August 17, 2024 Dr. Kishore Nicolas MD Emergency Provider Active S tart: August 17, 2024 Dr. Rajinder Acosta DO Admit Provider Active Start: August 17, 2024 Dr. Rajinder Acosta DO Other Provider Active Start: August 17, 2024 Dr. Juany Souza MD Attending Provider Active Start: August 17, 2024 Dr. Juany Souza MD Other Provider Active Star t: August 17, 2024 Dr. Zhao Gilliland MD Other Provider Active Start: August 17, 2024 Dr. Cameron Giron MD Other Provider Active Start: August 17, 2024 Team Status: Active Member Role Status Dates Dr. Kelvin Han MD Primary Care Provider Acti ve Start: August 17, 2024 Dr. Kishore Nicolas MD Emergency Provider Active S tart: August 17, 2024 Dr. Rajinder Acosta DO Admit Provider Active Start: August 17, 2024 Dr. Rajinder Acosta DO Other Provider Active Start: August 17, 2024 Dr. Juany Souza MD Other Provider Active Star t: August 17, 2024 Dr. Zhao Gilliland MD Other Provider Active Start: August 17, 2024 Dr. Cameron Giron MD Other Provider Active Start: August 17, 2024 Dr. Darryn Underwood DO Attending Provider Active S tart: August 17, 2024 Team Status: Active Member Role Status Dates Dr. Kelvin Han MD Primary Care Provider Acti ve Start: August 18, 2024 Dr. Kishore Nicolas MD Emergency Provider Active S tart: August 18, 2024 Dr. Rajinder Acosta DO Admit Provider Active Start: August 18, 2024 Dr. Rajinder Acosta DO Other Provider Active Start: August 18, 2024 Dr. Juany Souza MD Attending Provider Active Start: August 18, 2024 Dr. Juany Souza MD Other Provider Active Star t: August 18, 2024 Dr. Zhao Gilliland MD Other Provider Active Start: August 18, 2024 Dr. Cameron Giron MD Other Provider Active Start: August 18, 2024 Team Status: Active Member Role Status Dates Dr. Kelvin Han MD Primary Care Provider Acti ve Start: August 19, 2024 Dr. Kishore Nicolas MD Emergency Provider Active S tart: August 19, 2024 Dr. Rajinder Acosta DO Admit Provider Active Start: August 19, 2024 Dr. Rajinder Acosta DO Other Provider Active Start: August 19, 2024 Dr. Juany Souza MD Attending Provider Active Start: August 19, 2024 Dr. Juany Souza MD Other Provider Active Star t: August 19, 2024 Dr. Zhao Gilliland MD Other Provider Active Start: August 19, 2024 Dr. Cameron Giron MD Other Provider Active Start: August 19, 2024 Team Status: Active Member Role Status Dates Dr. Kelvin Han MD Primary Care Provider Acti ve Start: August 20, 2024 Dr. Kishore Nicolas MD Emergency Provider Active S tart: August 20, 2024 Dr. Rajindre Acosta DO Admit Provider Active Start: August 20, 2024 Dr. Rajinder Acosta DO Other Provider Active Start: August 20, 2024 Dr. Zhao Gilliland MD Other Provider Active Start: August 20, 2024 Dr. Cameron Giron MD Other Provider Active Start: August 20, 2024 Dr. Jameel Herrera MD Attending Provider Active Start: August 20, 2024 Dr. Jameel Herrera MD Other Provider Active Sta rt: August 20, 2024 Dr. Juany Souza MD Other Provider Active Star t: August 20, 2024 Team Status: Active Member Role Status Dates Dr. Kelvin Han MD Primary Care Provider Acti ve Start: August 15, 2024 Dr. Kishore Nicolas MD Emergency Provider Active S tart: August 15, 2024 Dr. Rajinder Acosat DO Admit Provider Active Start: August 15, 2024 Dr. Rajinder Acosta DO Other Provider Active Start: August 15, 2024 Dr. Juany Souza MD Referring Provider Active Start: August 15, 2024 Dr. Juany Souza MD Other Provider Active Star t: August 15, 2024 Dr. Mina Tracy MD Other Provider Active Start: August 15, 2024 Dr. Aston Mosley MD Other Provider Active Start: August 15, 2024 Dr. Balwinder Butler MD Other Provider Active Star t: August 15, 2024 Dr. Darryn Underwood , Attending Provider Active S tart: August 15, 2024 Dr. Darryn Underwood DO Other Provider Active Start : August 15, 2024 Dr. Rajinder Mishra MD Other Provider Active Sta rt: August 15, 2024 Dr. Jared Camacho MD Other Provider Active St art: August 15, 2024 Dr. Jt Salinas MD Other Provider Active S tart: August 15, 2024 Dr. Darlene Lamb MD Other Provider Active Start: August 15, 2024 Dr. Abraham Rivera MD Other Provider Active Start : August 15, 2024 Dr. Devon Tavera MD Other Provider Active Start: August 15, 2024 Dr. Reuben Bass MD Other Provider Active Start : August 15, 2024 Dr. Latasha Rodriguez MD Other Provider Active Star t: August 15, 2024 Dr. Bonnie Flood MD Other Provider Active Sta rt: August 15, 2024 Dr. Nathaly Sepulveda MD Other Provider Active Sta rt: August 15, 2024 Dr. Elias Booth MD Other Provider Active Star t: August 15, 2024 Dr. Kevin Laureano MD Other Provider Active St art: August 15, 2024 Dr. Reuben Raya MD Other Provider Active Star t: August 15, 2024 Dr. Vicente Ordonez DO Other Provider Active St art: August 15, 2024 Dr. Audelia Irizarry MD Other Provider Active Start: August 15, 2024 Dr. Sobeida Thompson MD Other Provider Active St art: August 15, 2024 Dr. Holger Marshall DO Other Provider Active Start: August 15, 2024 Dr. Wilfredo Doran MD Other Provider Active Star t: August 15, 2024 Dr. Alcides Nieto MD Other Provider Active Sta rt: August 15, 2024 Dr. Zhao Gilliland MD Other Provider Active Start: August 15, 2024 Team Status: Active Member Role Status Dates Dr. Kelvin Han MD Primary Care Provider Acti ve Start: August 16, 2024 Dr. Kishore Nicolas MD Emergency Provider Active S tart: August 16, 2024 Dr. Rajinder Acosta DO Admit Provider Active Start: August 16, 2024 Dr. Rajinder Acosta DO Other Provider Active Start: August 16, 2024 Dr. Juany Souza MD Referring Provider Active Start: August 16, 2024 Dr. Juany Souza MD Other Provider Active Star t: August 16, 2024 Dr. Mina Tracy MD Other Provider Active Start: August 16, 2024 Dr. Aston Mosley MD Other Provider Active Start: August 16, 2024 Dr. Balwinder Butler MD Other Provider Active Star t: August 16, 2024 Dr. Darryn Underwood DO Attending Provider Active S tart: August 16, 2024 Dr. Darryn Underwood DO Other Provider Active Start : August 16, 2024 Dr. Rajinder Mishra MD Other Provider Active Sta rt: August 16, 2024 Dr. Jared Camacho MD Other Provider Active St art: August 16, 2024 Dr. Jt Salinas MD Other Provider Active S tart: August 16, 2024 Dr. Darlene Lamb MD Other Provider Active Start: August 16, 2024 Dr. Abraham Rivera MD Other Provider Active Start : August 16, 2024 Dr. Devon Tavera MD Other Provider Active Start: August 16, 2024 Dr. Reuben Bass MD Other Provider Active Start : August 16, 2024 Dr. Latasha Rodriguez MD Other Provider Active Star t: August 16, 2024 Dr. Bonnie Flood MD Other Provider Active Sta rt: August 16, 2024 Dr. Nathaly Sepulveda MD Other Provider Active Sta rt: August 16, 2024 Dr. Elias Booth MD Other Provider Active Star t: August 16, 2024 Dr. Kevin Laureano MD Other Provider Active St art: August 16, 2024 Dr. eRuben Raya MD Other Provider Active Star t: August 16, 2024 Dr. Vicente Ordonez DO Other Provider Active St art: August 16, 2024 Dr. Audelia Irizarry MD Other Provider Active Start: August 16, 2024 Dr. Sobeida Thompson MD Other Provider Active St art: August 16, 2024 Dr. Holger Marshall DO Other Provider Active Start: August 16, 2024 Dr. Wilfredo Doran MD Other Provider Active Star t: August 16, 2024 Dr. Alcides Nieto MD Other Provider Active Sta rt: August 16, 2024 Dr. Zhao Gilliland MD Other Provider Active Start: August 16, 2024 Team Status: Active Member Role Status Dates Dr. Kelvin Han MD Primary Care Provider Acti ve Start: August 17, 2024 Dr. Kishore Nicolas MD Emergency Provider Active S tart: August 17, 2024 Dr. Rajinder Acosta DO Admit Provider Active Start: August 17, 2024 Dr. Rajinder Acosta DO Other Provider Active Start: August 17, 2024 Dr. Juany Souza MD Referring Provider Active Start: August 17, 2024 Dr. Juany Souza MD Other Provider Active Star t: August 17, 2024 Dr. Zhao Gilliland MD Other Provider Active Start: August 17, 2024 Dr. Cameron iGron MD Other Provider Active Start: August 17, 2024 Dr. Darryn Underwood DO Attending Provider Active S tart: August 17, 2024 Team Status: Inactive Member Role Status Dates Dr. Kelvin Han MD Primary Care Provider Acti ve Start: September 18, 2024 End: September 18, 2024 Dr. Kelvin Han MD Attending Provider Active Start: September 18, 2024 End: September 18, 2024 Dr. Kelvin Han MD Referring Provider Active Start: September 18, 2024 End: September 18, 2024 Sherlyn Crenshaw Other Provider Active Start: 2024 End: September 18, 2024 Team Status: Inactive Member Role Status Dates Dr. Kelvin Han MD Primary Care Provider Acti ve Start: October 16, 2024 End: October 16, 2024 Dr. Reuben Kirkland DO Emergency Provider Active Start: October 16, 2024 End: October 16, 2024 Team Status: Inactive Member Role Status Dates Dr. Kelvin Han MD Primary Care Provider Acti ve Start: October 16, 2024 End: October 16, 2024 Dr. Reuben Kirkland DO Attending Provider Active Start: October 16, 2024 End: October 16, 2024 Dr. Reuben Kirkland DO Emergency Provider Active Start: October 16, 2024 End: October 16, 2024 Team Status: Inactive Member Role Status Dates Dr. Kelvin Han MD Primary Care Provider Acti ve Start: November 13, 2024 End: November 14, 2024 Dr. Jorge Alberto Love DO Emergency Provider Active Start: November 13, 2024 End: November 14, 2024 Source Comments (unrecognize d section and content) In the event this informatio n is protected by the Federal Confidentiality of Alcohol and Drug Abuse Patient Records regulations: The Federal rules restrict any use of the information to criminally investigate or prosecute any alcohol or drug abuse patient.[facility] the event this information is protected by the Federal Confidentiality of Alcohol and Drug Abuse Patient Records regulations: The Federal rules restrict any use of the information to criminally investigate or prosecute any alcohol or drug abuse patient.[facility] the event this information is protected by the Federal Confidentiality of Alcohol and Drug Abuse Patient Records regulations: The Federal rules restrict any use of the information to criminally investigate or prosecute any alcohol or drug abuse patient.[facility] the event this information is protected by the Federal Confidentiality of Alcohol and Drug Abuse Patient Records regulations: The Federal rules restrict any use of the information to criminally investigate or prosecute any alcohol or drug abuse patient.[facility] the event this information is protected by the Federal Confidentiality of Alcohol and Drug Abuse Patient Records regulations: The Federal rules restrict any use of the information to criminally investigate or prosecute any alcohol or drug abuse patient.[facility] the event this information is protected by the Federal Confidentiality of Alcohol and Drug Abuse Patient Records regulations: The Federal rules restrict any use of the information to criminally investigate or prosecute any alcohol or drug abuse patient.[facility] the event this information is protected by the Federal Confidentiality of Alcohol and Drug Abuse Patient Records regulations: The Federal rules restrict any use of the information to criminally investigate or prosecute any alcohol or drug abuse patient.[facility] the event this information is protected by the Federal Confidentiality of Alcohol and Drug Abuse Patient Records regulations: The Federal rules restrict any use of the information to criminally investigate or prosecute any alcohol or drug abuse patient.[facility] the event this information is protected by the Federal Confidentiality of Alcohol and Drug Abuse Patient Records regulations: The Federal rules restrict any use of the information to criminally investigate or prosecute any alcohol or drug abuse patient.[facility] the event this information is protected by the Federal Confidentiality of Alcohol and Drug Abuse Patient Records regulations: The Federal rules restrict any use of the information to criminally investigate or prosecute any alcohol or drug abuse patient.[facility] the event this information is protected by the Federal Confidentiality of Alcohol and Drug Abuse Patient Records regulations: The Federal rules restrict any use of the information to criminally investigate or prosecute any alcohol or drug abuse patient.[facility] the event this information is protected by the Federal Confidentiality of Alcohol and Drug Abuse Patient Records regulations: The Federal rules restrict any use of the information to criminally investigate or prosecute any alcohol or drug abuse patient.[facility] Reason for Visit (unrecogniz ed section and content) Reason Comments Follow Up Phone Call Post discharge phon e call attempt made. No answer Reason Comments Cystoscopy-1 Reason Comments Returning Patient's Call Reason Comments [facility] Teaching (unrecognized sect ion and content) No Status Records FoundNo Status Records FoundNo Status Records Found INFORMATION SOURCE (unrecogn ized section and content) DATE CREATED AUTHOR 02/21/2023 [facility] DATE CREATED AUTHOR AUTHOR'S ORGANIZ ATION 05/18/2024 [facility] DATE CREATED AUTHOR AUTHOR'S ORGANIZ ATION 11/16/2024 [facility] FOR RECORDS PERTAINING TO PATIENTS WHO ARE [...] BE BASED ON THE PRIMARY CLINICAL RECORDS. [employer] [facility]. provides no warranty or guarantee of the accuracy or completeness of information in this document.
--- NOTE | 2024-11-18 23:01 | EDS_ITS ---
HPI History of Present Illness Chief Complaint: Worthy C/O Informant: patient Narrative Narrative: 79-year-old male with a chronic indwelling suprapubic Worthy catheter states that the catheter fell out after shower today. I replaced the catheter 5 days ago without difficulty. He utilizes a 16 German Worthy with 30 cc balloon. Balloon was inflated with 30 cc of sterile water. Patient has not had any problems since then until tonight. He brought his own replacement and the old catheter with him. After his last ED visit he was placed on antibiotics prophylactically and has been doing well. No fevers. No change in the urine consistency. [facility] Medical History Hearing loss, left Hearing loss, right Anxiety Depression Chronic indwelling Worthy catheter TIA (transient ischemic attack) Chronic radiation cystitis Worthy catheter in place Wears glasses Cancer Arthritis Non-smoker History of pain when walking History of edema Hypertension Prostate cancer Blood in urine Home Medications ?Medication ?Instructions ?Recorded ?Last Taken ?Type amlodipine 10 mg tablet 10 mg PO DAILY BLOOD PRESSUR E 12/08/18 01/13/24 History lisinopril 40 mg tablet 40 mg PO BID BLOOD PRESSURE 12/08/18 01/13/24 History Held on 08/20/24. Instructions: Hold for 5 more days and resume lower dose of lisinopril terazosin 5 mg capsule 5 mg PO QPM BLOOD PRESSURE 0 12/08/18 01/13/24 History multivit,Ca,min-iron 8 mg-folic 1 tab PO DAILY SUPPLEM ENT 11/04/23 01/13/24 History acid 200 mcg-lycopene 600 mcg tablet (A Thru Z Men's Ultimate) L.acidophil,salivari-Bifido 1 cap PO 2XD #0 caps 08/20 Unknown Rx bifidum-Strep thermoph 175 mg capsule levofloxacin 500 mg tablet 500 mg PO DAILY 5 days #5 t abs 08/20/24 Unknown Rx ciprofloxacin HCl 500 mg tablet 500 mg PO BID 7 days # 14 tabs 11/14/24 Unknown Rx (Cipro) Allergy/AdvReac Type Severity Reaction Status Date / Time losartan Allergy Mild Rash Verified 11/18/24 22:25 Sulfa (Sulfonamide Allergy Hives Verified 11/18/24 22:25 Antibiotics) atenolol AdvReac Mild WEAKNESS Verified 11/18/24 22:25 hydrochlorothiazide AdvReac Mild UNKNOWN Verified 11/18/24 22:25 indomethacin (From Indocin) AdvReac Mild GI upset Verified 11/18/24 22:25 Surgical History History of left knee replacement Hx of radical prostatectomy Hx of cystoscopy Hx of colonoscopy Social History household members: spouse housing: house Smoking Status: Never smoker ROS ROS ED Constitutional Constitutional ED: Denies chills or weight loss Eyes Eyes: Denies change in vision or diplopia ENT ENT ED: Denies ear pain, rhinorrhea or sore throat Cardiovascular Cardiovascular: Denies chest pain, orthopnea, palpitations or racing heartbeat Respiratory/Chest Respiratory/Chest: Denies cough, dyspnea or orthopnea Gastrointestinal Gastrointestinal: Denies abdominal pain, diarrhea, nausea or vomiting Genitourinary Genitourinary ED: Denies dysuria, hematuria or urinary frequency Musculoskeletal Musculoskeletal: Denies arthralgias or myalgias Integumentary Denies abscess or rash Neurologic Neurologic: Denies headache(s) or weakness Psychiatric Psychiatric: Denies anxiety, depression, suicidal ideation or suicidal thoughts Endocrine Endocrinology: Denies polydipsia, polyphagia or polyuria Allergic/Immunologic Allergic/Immunologic ED: Denies mouth swelling, tongue swelling or urticaria EXAM Physical Exam Const Vital Signs: 11/18/24 22:26 Temperature 96.7 F L Temperature Source Temporal Pulse Rate 130 H Respiratory Rate 18 Blood Pressure 120/82 H Blood Pressure Mean 94 Pulse Ox 97 Positive well nourished and well developed General Appearance ED: well developed HEENT Reports normocephalic, head/scalp atraumatic and moist mucous membranes Eyes PERRL and EOMs intact bilaterally Neck no lymphadenopathy, supple and no JVD Resp normal respiratory effort and clear to auscultation bilaterally Cardio regular rate, regular rhythm and no murmurs GI normal to inspection, nondistended, normoactive bowel sounds and non-tender GI Narrative: Suprapubic catheter site is clean dry and intact. There is no evidence of cellulitis. Palpation: soft Back/Spine no CVA tenderness and normal ROM Extremity normal to inspection General Extremety ED: Negative for edema General Extremity: Negative for edema Neuro oriented x3 and CN's II-XII intact bilaterally Sensorium / Orientation: alert Motor Exam: strength 5/5 throughout Psych mental status grossly normal Mood & Affect: Negative for depressed or tearful Skin no rashes or lesions noted and no wounds MDM MDM MDM Narrative Medical decision making narrative: I examined the Worthy catheter. The balloon is still inflatable and does not appear to have a hole in it. Using sterile technique I replaced the old catheter with a new catheter that he brought with him. This is inflated to 30 cc of sterile water. Urine drained without incident and the patient tolerated procedure well. At this point patient to be discharged home. Return as needed follow-up with urology as scheduled History & Record Review Discussion w/independent historian: Patient Additional record(s) reviewed:: Prior ED visit and Prior labs Discharge Plan Triage Chief Complaint: Worthy C/O ED Provider: Jorge Alberto Love Dx/Rx/DC Orders Clinical Impression: Encounter for Worthy catheter replacement, Malfunction of Worthy catheter Instructions: ED Worthy Catheter, Care Prescriptions: No Action terazosin 5 MG capsule 5 mg PO QPM amlodipine 10 MG tablet 10 mg PO DAILY lisinopril 40 MG tablet 40 mg PO BID ciprofloxacin HCl [Cipro] 500 mg tablet 500 mg PO BID 7 Days Qty: 14 0RF A Thru Z Men's Ultimate 8 mg iron- 200 mcg-600 mcg tablet 1 tab PO DAILY L.acidoph,saliva-B.bif-S.therm 175 mg Capsule 1 cap PO 2XD Qty: 0 0RF Rx Instructions: Oesp-hgq-ldlxlgr for 1 week. levofloxacin 500 mg tablet 500 mg PO DAILY 5 Days Qty: 5 0RF Primary Care Provider: Isaiah Han Referrals: Isaiah Han MD [Primary Care Provider] - As Needed Zhao Gilliland MD [Med Staff - Active Staff] - Keep Guilherme appointment Print Language: Hong Konger Disposition Disposition: Home, Self Care
[2024-11-18 23:02] VITALS: BP 120/82; PULSE 89; RESP 16; TEMP 36.8; O2SAT 98
== END 2024-11-18 23:08 | disposition home or self-care (01) ==
PROVIDERS: Emergency Provider Emergency Medicine; PCP Family Medicine; Visit Provider Emergency Medicine
DX: T83.018A Breakdown (mechanical) of other urinary catheter, initial encounter (principal); I10 Essential (primary) hypertension; Y73.8 Miscellaneous gastroenterology and urology devices associated with adverse incidents, not elsewhere classified
CPT/HCPCS: 99282; A4216

== ENCOUNTER → 2024-12-04 | Outpatient (CLI) | payer MEDICARE, OTHER, SELFPAY ==
[2024-12-04 11:09] LABS: Cholesterol 169 mg/dL (<=200); Low Density Lipoprotein Calc. 101 mg/dL; Triglycerides 78 mg/dL; Very Low Density Lipoprotein 16 mg/dL (5-40); cholesterol:hdl ratio screen 3.21
== END | disposition home or self-care (01) ==
LOC: MTLAB 08:14
PROVIDERS: PCP Family Medicine; Referring Provider Family Medicine; Visit Provider Family Medicine
DX: Z13.220 Encounter for screening for lipoid disorders (principal); Z79.899 Other long term (current) drug therapy
CPT/HCPCS: 36415; 80061

== ENCOUNTER 2025-02-24 00:35 | Emergency (ER) | payer MEDICARE, OTHER, SELFPAY ==
[2025-02-24 00:36] VITALS: BP 135/75; PULSE 87; RESP 18; TEMP 36.4; O2SAT 99; BMI 32.1
[2025-02-24 00:39] VITALS: BP 135/75; PULSE 87; RESP 18; TEMP 36.4; O2SAT 100
--- NOTE | 2025-02-24 01:03 | RAD_ITS ---
PROCEDURE: CHEST PA AND LATERAL 02/23/2025 REASON FOR EXAM: COUGH TECHNIQUE: Procedure Code: RADCXR Modality: DX Procedure: CHEST PA AND LATERAL COMPARISON: 08/14/2024 FINDINGS: Hardware: None. Heart: The heart size is normal. Mediastinum: The mediastinal contour is unremarkable. Lungs: The lungs are clear. Bones: The bones are unremarkable. RAD/Chest PA and Lateral IMPRESSION: NO ACUTE FINDINGS. [facility]
[2025-02-24] MEDS: 0.9% Normal Saline (1000mL) 1,000 ML 999 ML IV (01:13)
[2025-02-24 01:21] LABS: Hematocrit 34.0 % (40-54); Hemoglobin 11.6 g/dL (13.0-16.5); Immature Granulocytes Count 0.040 X10^3/uL (0.0-0.0); Mean Corp Hgb Conc 34.1 g/dL (32-36); Mean Corpuscular Volume 87.2 fL (80-94); Mean Platelet Vol. 9.9 fl (6.2-12.0); NRBC Flagged by Analyzer 0 % (0-5); POSITIVE DIFFERENTIAL YES; Platelet Count 185 K/mm3 (150-450); RBC Distribution Width CV 13.7 % (11.6-14.6); RBC Distribution Width SD 43.8 fl (35.1-43.9); Red Blood Count 3.90 M/mm3 (4.6-6.2); White Blood Count 3.9 K/mm3 (4.4-11.0)
[2025-02-24 01:35] VITALS: BP 123/65; PULSE 100; RESP 18; TEMP 37.3; O2SAT 100
[2025-02-24 01:52] LABS: Anion Gap 11 (5-15); BUN 18 mg/dL (4-19); BUN/Creat Ratio 14.4 RATIO (10-20); Calcium,Total 8.6 mg/dL (7.6-11.0); Carbon Dioxide 20.5 mmol/L (21.0-32.0); Chloride 103 mmol/L (98-108); Estimated Creatinine Clearance 56.85 ml/min (50-250); Glucose 121 mg/dL (70-99); Potassium 4.0 mmol/L (3.3-5.1)
--- NOTE | 2025-02-24 02:23 | EX.ED.DYSGE1 ---
HPI History of Present Illness Chief Complaint: Complaint Informant: patient and spouse/S.O. Narrative Narrative: Patient is a 79-year-old male with past medical history of of hypertension and prostate cancer with indwelling suprapubic Worthy catheter. He states that he has had mild congestion and cough as well as his and both reports symptoms have been present for roughly 1 week. They state they feel they are getting better from this. However yesterday he felt very fatigued for no obvious reason and throughout the night while sleeping he was sweating profusely. states he seemed more irritable and forgetful during this time. The patient states he does have a previous history of sepsis secondary to UTI. He states the urine has looked cloudy and his suprapubic catheter. He reports that the catheter was changed roughly 2 weeks ago and it was uneventful. He is concerned that he could be developing a repeat UTI and secondary to this comes in for evaluation [facility] Medical History Skin tear of left forearm without complication Hearing loss, left Hearing loss, right Anxiety Depression Chronic indwelling Worthy catheter TIA (transient ischemic attack) Chronic radiation cystitis Worthy catheter in place Wears glasses Cancer Arthritis Non-smoker History of pain when walking History of edema Hypertension Prostate cancer Blood in urine Home Medications ?Medication ?Instructions ?Recorded ?Last Taken ?Type amlodipine 10 mg tablet 10 mg PO DAILY BLOOD PRESSURE 12/08/18 01/13/24 History lisinopril 40 mg tablet 40 mg PO DAILY BLOOD PRESSURE 12/08/18 01/13/24 History terazosin 5 mg capsule 5 mg PO QPM BLOOD PRESSURE 12/08/18 01/13/24 History multivit,Ca,min-iron 8 mg-folic 1 tab PO DAILY SUPPLEMENT 11/04/23 01/13/24 History acid 200 mcg-lycopene 600 mcg tablet (A Thru Z Men's Ultimate) L.acidophil,salivari-Bifido 1 cap PO 2XD #0 caps 08/20/24 Unknown Rx bifidum-Strep thermoph 175 mg capsule ciprofloxacin HCl 500 mg tablet 500 mg PO BID 10 days #20 tabs 02/24/25 Unknown Rx (Cipro) Allergy/AdvReac Type Severity Reaction Status Date / Time losartan Allergy Mild Rash Verified 02/24/25 00:36 Sulfa (Sulfonamide Allergy Hives Verified 02/24/25 00:36 Antibiotics) atenolol AdvReac Mild WEAKNESS Verified 02/24/25 00:36 hydrochlorothiazide AdvReac Mild UNKNOWN Verified 02/24/25 00:36 indomethacin (From Indocin) AdvReac Mild GI upset Verified 02/24/25 00:36 Surgical History History of left knee replacement Hx of radical prostatectomy Hx of cystoscopy Hx of colonoscopy Social History household members: spouse housing: house Smoking Status: Never smoker ROS ROS ED Constitutional Constitutional ED: Reports sweats; Denies chills or fever(s) Eyes Eyes: Denies change in vision ENT ENT ED: Reports rhinorrhea; Denies sore throat Cardiovascular Cardiovascular: Denies chest pain, palpitations or racing heartbeat Respiratory/Chest Respiratory/Chest: Reports cough; Denies dyspnea Gastrointestinal Gastrointestinal: Denies abdominal pain, diarrhea, nausea or vomiting Musculoskeletal Musculoskeletal: Denies back pain or myalgias Integumentary Denies rash Neurologic Neurologic: Denies headache(s) or weakness Hematologic/Lymphatic Hematologic/Lymphatic: Denies easy bleeding or easy bruising EXAM Physical Exam Const Vital Signs: 02/24/25 00:36 02/24/25 00:39 02/24/25 01:15 Temperature 97.6 F L 97.6 F L Temperature Source Oral Oral Pulse Rate 87 87 Respiratory Rate 18 18 Respiratory Effort Normal Non-Labored Respiratory Pattern Normal Blood Pressure 135/75 H 135/75 H Blood Pressure Mean 95 95 Pulse Ox 99 100 Oxygen Delivery Method Room Air Room Air 02/24/25 01:35 02/24/25 02:34 02/24/25 03:00 Temperature 99.1 F 98.9 F 98.9 F Temperature Source Oral Oral Oral Pulse Rate 100 130 H 120 H Respiratory Rate 18 28 H 18 Respiratory Effort Respiratory Pattern Blood Pressure 123/65 H 160/84 H 135/53 H Blood Pressure Mean 84 109 80 Pulse Ox 100 97 98 Oxygen Delivery Method Room Air Room Air Room Air 02/24/25 03:49 Temperature 98.9 F Temperature Source Pulse Rate 110 H Respiratory Rate 18 Respiratory Effort Respiratory Pattern Blood Pressure 129/64 H Blood Pressure Mean 85 Pulse Ox 95 Oxygen Delivery Method Positive well nourished and well developed General Appearance ED: well developed; Negative for pallor HEENT HEENT Narrative: Normocephalic/atraumatic No tongue or lip swelling no oral lesions no airway edema or compromise; no secondary findings in the posterior pharynx to suggest infection There is mild cobblestoning in the posterior pharynx consistent with sinus drainage Eyes PERRL and EOMs intact bilaterally General Eye ED: Negative for scleral icterus Neck supple Neck Narrative: No nuchal rigidity or meningeal signs Resp normal respiratory effort Resp Narrative: There is faint rhonchi noted in the right lower lobe while the remainder of the exam shows clear lung sounds No tachypnea nasal flaring retractions or accessory muscle use Cardio regular rate and regular rhythm Rate: other Other Details: Radial and carotid pulses are equal and symmetric GI normal to inspection, nondistended, normoactive bowel sounds, non-tender, non-distended and no masses GI Narrative: No voluntary guarding or rigidity or pulsatile mass. No peritoneal signs. Suprapubic Worthy catheter in place in the midline suprapubic/lower abdomen without surrounding soft tissue skin changes to suggest infection Auscultation: normoactive bowel sounds Palpation: soft Back/Spine no CVA tenderness Extremity normal to inspection Neuro oriented x3 and CN's II-XII intact bilaterally Sensorium / Orientation: alert Psych mental status grossly normal Skin no rashes or lesions noted General Skin Exam: Negative for jaundice or pallor MDM MDM MDM Narrative Medical decision making narrative: Patient arrived to the ER afebrile. He reported lethargy and feeling unwell for the last 1 to 2 days with breakthrough sweating at night. As he has had mild congestion and cough there is concern he could have COVID influenza or RSV and as his lung exam shows asymmetric breath sounds in the right lower lobe there is concern for secondary pneumonia. Therefore viral swab and a chest x-ray were ordered. Viral swab was negative and chest x-ray revealed no obvious infiltrate. The patient has had urosepsis in the past and there is concern that he could be progressing towards that at this time. Blood work was obtained which shows his white blood cell to be a little low at 3.9 but he does not have an elevated or decreased absolute neutrophil count. He also does not a fever. There is no signs of CHRIS or clinically significant electrolyte abnormality. Urine sample did show +3 bacteria with greater than 100 white cells and 500 leukocyte esterase. His sample is nitrate negative but as there is no contamination and he is having symptoms consistent with being ill I do feel this is the most likely cause. Therefore the urine will be sent for culture and he will be started on Rocephin in the ER. While in the ER the patient's heart rate increased to approximately 120. With this he developed repeat shaking chills. His temperature was rechecked at that time and is still normal at 98.9 and he is maintaining a normal blood pressure still. I did discuss with his urine looking infected history of urosepsis and now shaking chills and tachycardia if he would prefer to potentially stay in the hospital while awaiting the urine culture for IV antibiotics and monitoring. He states that overall he is feeling better and states that the chills have resolved. He states that he would prefer to do oral medication and only return if it is not proving to help his infection. He states he did well on Cipro with his last infection and therefore that will be prescribed at this time. Therefore as the patient reports feeling better after the provided treatment in the ER his temperature remains normal his heart rate is improving and his blood pressure is stable I will start him on Cipro and discharge him at this time History & Record Review Discussion w/independent historian: Patient and Significant other Lab Data Attestation: I reviewed the patient's lab results. Labs: Laboratory Results - last 24 hr 02/24/25 02/24/25 01:13 02:33 WBC 3.9 L RBC 3.90 L Hgb 11.6 L Hct 34.0 L MCV 87.2 MCH 29.7 MCHC 34.1 RDW Std Deviation 43.8 RDW Coeff of Jerry 13.7 Plt Count 185 MPV 9.9 Immature Gran % (Auto) 1.000 H Neut % (Auto) 78.1 H Lymph % (Auto) 12.7 L [place] % (Auto) 3.8 Eos % (Auto) 4.1 Baso % (Auto) 0.3 Absolute Neuts (auto) 3.1 Absolute Lymphs (auto) 0.50 L Nucleated RBC % 0 Sodium 135 Potassium 4.0 Chloride 103 Carbon Dioxide 20.5 L Anion Gap 11 BUN 18 Creatinine 1.26 H Estim Creat Clear Calc 56.85 Est GFR (MDRD) Non-Af 59 L BUN/Creatinine Ratio 14.4 Glucose 121 H Calcium 8.6 Urine Color Yellow Urine Clarity Sl. Cloudy Urine pH 6.5 Ur Specific [place] 1.015 Urine Protein 30 H Urine Glucose (UA) Normal Urine Ketones Negative Urine Occult Blood 50 H Urine Nitrite Negative Urine Bilirubin Negative Urine Urobilinogen Normal Ur Leukocyte Esterase 500 H Urine RBC 5-10 SEEN Urine WBC >100 SEEN Ur Squamous Epith Cells 0-5 SEEN Amorphous Sediment 1+ Urine Bacteria 3+ Urine Mucus 0 SEEN Radiography Diagnostic Testing: Clinical Impression(s) from Imaging Studies Chest X-Ray 02/24/25 01:03 IMPRESSION: NO ACUTE FINDINGS. Reading Location: [facility] Chest x-ray as interpreted by the emergency medicine physician reveals no acute infiltrate pneumothorax or pleural effusion Discharge Plan Triage Chief Complaint: Complaint ED Provider: Reuben Kirkland Dx/Rx/DC Orders Clinical Impression: UTI (urinary tract infection) Instructions: Urinary Tract Infections in Men Prescriptions: New ciprofloxacin HCl [Cipro] 500 mg tablet 500 mg PO BID 10 Days Qty: 20 0RF No Action terazosin 5 MG capsule 5 mg PO QPM amlodipine 10 MG tablet 10 mg PO DAILY lisinopril 40 MG tablet 40 mg PO DAILY A Thru Z Men's Ultimate 8 mg iron- 200 mcg-600 mcg tablet 1 tab PO DAILY L.acidoph,saliva-B.bif-S.therm 175 mg Capsule 1 cap PO 2XD Qty: 0 0RF Rx Instructions: [id number] for 1 week. Primary Care Provider: Isaiah Han Referrals: Isaiah Han MD [Primary Care Provider, Family Practice] Activity Restrictions/Additional Instructions: Please take the ciprofloxacin as directed to help resolve your infection. He will typically take 2 to 3 days for the infection to improve. If you develop a fever or have worsening symptoms or the infection is not improving over the standard timeframe please return to the ER for repeat evaluation. Your urine has been sent for culture; if you are not notified then it means you are on the proper medication. Print Language: Japanese Disposition Disposition: Home, Self Care Discharge Date/Time: 02/24/25 03:55
[2025-02-24 02:34] VITALS: BP 160/84; PULSE 130; RESP 28; TEMP 37.2; O2SAT 97
[2025-02-24 02:36] LABS: Mucous, Urine 0 SEEN /hpf (<or=2+)
[2025-02-24 02:46] LABS: Color, Urine Yellow (Yellow); Glucose, Dipstick Normal (Normal); Ketone-Dipstick Negative (Negative); Leukocyte Esterase-Dipstick 500 /ul (Negative); Nitrite-Dipstick Negative (Negative); Occult Blood-Urine 50 /ul (Negative); Protein-Dipstick 30 mg/dl (Negative); Specific Gravity, Urine 1.015 (1.002-1.030); Urine Bilirubin Dipstick Negative (Negative)
[2025-02-24 03:00] VITALS: BP 135/53; PULSE 120; RESP 18; TEMP 37.2; O2SAT 98
[2025-02-24 03:04] LABS: Red Blood Cells-Urine 5-10 SEEN /hpf (0-5); Squamous Epithelial Cells - UA 0-5 SEEN /hpf (0-5)
[2025-02-24 03:49] VITALS: BP 129/64; PULSE 110; RESP 18; TEMP 37.2; O2SAT 95
== END 2025-02-24 03:55 | disposition home or self-care (01) ==
PROVIDERS: Emergency Provider Emergency Medicine; PCP Family Medicine; Visit Provider Emergency Medicine
DX: T83.518A Infection and inflammatory reaction due to other urinary catheter, initial encounter (principal); I10 Essential (primary) hypertension; Z11.52 Encounter for screening for COVID-19; R05.9 Cough, unspecified; H91.93 Unspecified hearing loss, bilateral; Z79.899 Other long term (current) drug therapy; Z86.73 Personal history of transient ischemic attack (TIA), and cerebral infarction without residual deficits
CPT/HCPCS: 71046; 80048; 81001; 85025; 87077; 87086; 87088; 87186; 87631; 96361; 96365; 99284; A4216

== ENCOUNTER 2025-02-24 19:53 | Inpatient (IN) | payer MEDICARE, OTHER, SELFPAY ==
[2025-02-24] VITALS (8 sets, daily range): BP systolic 93–121; BP diastolic 56–70; PULSE 76–119; RESP 18–25; TEMP 36.5–37.1; O2SAT 93–100; BMI 29.2; BMI 28.4
--- OUTSIDE RECORDS SUMMARY | 2025-02-24 20:26 | XMS RPT_ITS | CCD ---
Author Organization [facility] Care Team Providers Care Cashier Associate Name Role Phone Carlos HOOK MD, Nayan Unavailable Kelvin Han MD Primary Care Provider KELVIN HAN Primary Care Unavailabl ashish Gonzalez MD, Nayan Unavailable Kelvin Han MD [...] Provider Dr. Kelvin Han MD Attending Provider Dr. Kelvin Han MD Referring Provider Dr. Kishore Nicolas MD Emergency Provider Dr. Rajinder Acosta DO Admit Provider Unavail able de Jaylon DO, Dr. Calvillo Attending Provider Unav ailable de Jaylon DO, Dr. Calvillo Other Provider Unavail able Darshana HOOK, Dr. Zhao Gabriel Other Provider Mack HOOK, Dr. Barnes Other Provider Javier HOOK, Dr. Jorgensen Attending Provider Harley HOOK, Dr. Harrington Other Provider Harley HOOK, Dr. Harrington Attending Provider Rossana HOOK, Dr. Enriquez Other Provider Melany HOOK, Dr. Clancy Other Provider Luke HOOK, Dr. Britt Other Provider Kj ALFORD, Dr. Cates Other Provider Tad HOOK, Dr. aRjinder Ward Other Provider Janice HOOK, Dr. Coleman Other Provider Brad HOOK, Dr. Waters Other Provider Adonis HOOK, Dr. Colon Other Provider [phone] Nicole HOOK, Dr. Rosario Other Provider [phone] Devon Tavera MD Other Provider [phone] Reuben Bass MD Other Provider [phone] Michael HOOK, Dr. Pagan Other Provider [phone] Aleena HOOK, Dr. Nicole [facility] ashish Sepulveda MD, Dr. Andersen Other Provider Leobardo HOOK, Dr. Griffin Other Provider [phone] Kevin Laureano MD Other Provider Elver HOOK, Dr. Alexis Other Provider [phone] Vicente Ordonez DO Other Provider [phone] Edie HOOK, Dr. Win Other Provider Jay HOOK, Dr. Vidales Other Provider Rolando ALFORD, Dr. Wren Other Provider Espinoza HOOK, Dr. Villalobos Other Provider [phone] Gerson HOOK, Dr. Mcgrath Other Provider [phone] Kj ALFORD, Dr. Cates Attending Provider Sherif PARTS PROCESSOR-C, Tiffanie Attending Provider [phone] Javier HOOK, Dr. Jorgensen Other Provider Harley HOOK, Dr. Harrington Referring Provider [phone] Sherlyn Crenshaw Other Provider Guille HOOK, Dr. Colon Primary Care Provider Marita ALFORD, Dr. Alexis Emergency Provider Marita ALFORD, Dr. Alexis Attending Provider Ivan ALFORD, Dr. Azul Emergency Provider Guille HOOK, Dr. Colon Primary Care Provider Guille HOOK, Dr. Colon Attending Provider Guille HOOK, Dr. Colon Referring Provider [phone] Dr. Jorge Alberto Love DO Attending Provider Guille HOOK, Dr. Colon Primary Care Provider Maynor Vuong Attending Provider Guille, Kelvin Primary Care Unavailable Reuben Kirkland Attending Unavailable Guille, Christopher Primary Care Unavailable Reuben Kirkland Attending Unavailable Sisanupam Cameron Referring Unavailable Sisanupam Cameron Attending Unavailable Tigist PARTS PROCESSOR, Kayce E Consulting Unavailabl e Ranney, Christopher Primary Care Unavailable Ranney, Christruchi Referring Unavailable Tigist PARTS PROCESSOR, Kayce E Attending Unavailabl e Ranney, Christopher Primary Care Unavailable Ranney, Christopher Primary Care Unavailable Ranney, Krishnaer Attending Unavailable Ranney, Christopher Referring Unavailable Ranney, Christopher Primary Care Unavailable Tigist PARTS PROCESSOR, Kayce E Attending Unavailabl e Ranney, Christopher Primary Care Unavailable Rajinder Acosta Consulting Unavailable Rajinder Acosta Admitting Unavailable Jameel Herrera Attending Unavailable Zhao Gilliland Consulting Unavailable Cameron Giron Consulting Unavailable Juany Souza Consulting Unavailable [facility] Unavailable [employer]ist PARTS PROCESSOR, Kayce E Attending UnavailCameron Higuera Referring Unavailable [employer]ist PARTS PROCESSOR, Kayce E Consulting UnavailCameron Higuera Attending Unavailable [facility] Unavailable [employer]ist PARTS PROCESSOR, Kayce E Referring Unavailabl e Tigist PARTS PROCESSOR, Kayce E Consulting Unavailabl e Tigist PARTS PROCESSOR, Kayce E Attending Unavailgordon e [facility] Unavailable [facility] Unavailable Juany Souza Attending Unavailable Rajinder Acosta Admitting Unavailable Rajinder Acosta Consulting Unavailable Zhao Gilliland Consulting Unavailable Cameron Giron Consulting Unavailable Juany Souza Consulting Unavailable Juany Souza Referring Unavailable Darryn Underwood Attending Unavailable Mina Tracy Consulting Unavailable Aston Mosley Consulting Unavailable Balwinder Butler Consulting Unavailable Darryn Underwood Consulting Unavailable Rajinder Mishra Consulting Unavailable Jared Camacho Consulting Unavailable Jt Salinas Consulting Unavailable Darlene Lamb Consulting UnavailAbraham Vo Consulting Unavailable Devon Tavera Consulting Unavailable Reuben Bass Consulting Unavailable Latasha Rodriguez Consulting Unavailable Bonnie Flood Consulting Unavailable Nathaly Sepulveda Consulting Unavailable Elias Booth Consulting Unavailable Kevin Laureano Consulting Unavailable Reuben Raya Consulting Unavailable Vicente Ordonez Consulting Unavailable Audelia Irizarry Consulting Unavailable Sobeida Thompson Consulting Unavailable Holger Marshall Consulting Unavailable Wilfredo Doran Consulting Unavailable Alcides Nieto Consulting Unavailable [facility] Unavailable Jorge Alberto Love Attending Unavailable [facility] Unavailable Reuben Kirkland Attending Unavailable [facility] Unavailable Kishore Nicolas Attending Unavailable [facility] Unavailable Sherlyn Crenshaw Consulting Unavailable [facility] Referring Unavailable Kelvin Han Attending Unavailable RogerskippackKelvin Attending Unavailable [facility] Referring Unavailable [facility] Unavailable Tigist PARTS PROCESSOR, Kayce E Consulting Unavailabl e Tigist PARTS PROCESSOR, Kayce E Referring Unavailabl e Tigist PARTS PROCESSOR, Kayce E Attending Unavailabl e Tigist PARTS PROCESSOR, Kayce E Consulting Unavailabl e [facility] Unavailable [employer]ist PARTS PROCESSOR, Kayce E Attending Unavailabl e [employer]ist PARTS PROCESSOR, Kayce E Referring Unavailabl e Tigist PARTS PROCESSOR, Kayce E Referring Unavailabl e [facility] Unavailable [employer]ist PARTS PROCESSOR, Kayce E Consulting Unavailabl e [employer]ist PARTS PROCESSOR, Kayce E Attending Unavailabl e Tigist PARTS PROCESSOR, Kayce E Consulting Unavailabl e [facility] Unavailable Nini Lewis Attending Unavailable [facility] Unavailable Maynor Vuong Attending Unavailable [facility] Referring Unavailable [facility] Unavailable Jorge Alberto Love Attending Unavailable Jameel Herrera Attending Unavailable Jameel Herrera Consulting Unavailable Tiffanie Gorman Attending Unavailable Rajinder Acosta Attending Unavailable [facility] Unavailable [employer]ist PARTS PROCESSOR, Kayce E Consulting Unavailabl e [employer]ist PARTS PROCESSOR, Kayce E Attending Unavailabl e [facility] Unavailable [facility] Referring Unavailable Tigist PARTS PROCESSOR, Kayce E Attending Unavailabl e Allergies Allergy Classification Reported Allergen(s) Allergy Type Date of Onset Reaction(s) Facility (20 sources) Sulfonamides (Antibiotic); Translations: [SULFA (SULFONAMIDE ANTIBIOTICS)] Allergy to substance 12-23-19 05 [facility] (20 sources) Atenolol; Translations: [ATENOLOL] Drug Allergy 12-23-19 05 [facility] (20 sources) hydroCHLOROthiazide; Translations: [HYDROCHLOROTHIAZIDE] Drug Allergy 12-23-19 05 [facility] Comment on above: Pt states did not to lerate (14 sources) Indomethacin Drug Allergy 02-15-20 GI upset [facility] (14 sources) Losartan Drug Allergy 02-15-20 Rash [facility] (14 sources) Indomethacin; Translations: [INDOMETHACIN SODIUM] Drug Allergy 07-28-19 13 GI Upset [facility] (14 sources) Losartan; Translations: [LOSARTAN POTASSIUM] Drug Allergy 08-20-19 15 Hives [facility] (10 sources) Primaquine; Translations: [8-AMINOQUINOLINES] Drug Allergy 12-23-19 24 [facility] (1 source) Atenolol Drug Allergy 02-25-20 [facility] (1 source) hydroCHLOROthiazide Drug Allergy 02-25-20 [facility] (1 source) Indomethacin Drug Allergy 02-25-20 [facility] (1 source) Losartan Drug Allergy 02-25-20 [facility] Medications Current Medications Medication Drug Class(es) Dates Sig (Normalized) Sig (Original) amLODIPine 10 mg oral tablet (20 sources) Dihydropyridine Calcium Channel Carlita Start: 03-03-2017 take 1 tablet by mouth once daily Amlodipine 10 MG tablet Active 10 mg PO DAILY December 08, 2018 12:00am BLOOD PRESSURE Comment on above: Take 1 tablet by navya th once daily. aspirin 81 mg oral tablet (12 sources) Platelet Aggregation Inhibitor, Nonsteroidal Anti-inflammatory Drug Start: 12-22-2004 take 1 tablet by mouth once daily ASPIRIN 81 MG ORAL TAB Take one (1) tablet daily . 0 12/22/2004 Active Comment on above: Take one (1) tablet daily . SergeiAcidoph,Saliva- B.Bif-S.Therm 175 mg Capsule (7 sources) Start: 08-20-2024 take 1 capsule by mouth twice daily L.Acidoph,Saliva -B.Bif-S.Therm 175 mg Capsule Active 1 NMA PO 2 times daily 0 August 20, 2024 12:00am Ydod-amc-yocihbo for 1 week. Start: 08-20-2024 take 1 capsule by mouth twice daily L.Acidoph,Saliva-B.Bif-S.Therm 175 mg Ca psule Active 1 NMA PO 2 times daily 0 August 20, 2024 12:00am Qidr-pco-hhcrzml for 1 week. 4-month 1.5 ml leuprolide acetate 20 mg/ml prefilled syringe (20 sources) Gonadotropin Releasing Hormone Receptor Agonist Start: 10-14-2015 inject 30 mg by intramuscular injection every four months leuprolide (LUPRON DEPOT, 4 MONTH,) 30 mg injection Inject 30 mg intramuscularly every 4 months. 1 Each 06/24/2016 Active Comment on above: Inject 30 mg intramuscularly every 4 mon ths. lisinopril 40 mg oral tablet (20 sources) Angiotensin Converting Enzyme Inhibitor Start: 03-03-2017 take 1 tablet by mouth twice daily Lisinopril 40 MG tablet Active 40 mg PO TWICE A DAY December 08, 2018 12:00am BLOOD PRESSURE On Hold: Hold for 5 more days and resume lower dose of lisinopril Comment on above: Take 1 tablet by mouth twice daily. mv with fex-DP-ftfkyqak -ginkgo (ONE-A-DAY MEN'S 50+ ADVANTAGE) 400-300-120 mcg-mcg-mg tab (12 sources) Start: 04-28-2015 take 1 tablet by mouth once daily mv with epj-QE-jmdxwapl-gin kgo (ONE-A-DAY MEN'S 50+ ADVANTAGE) 400-300-120 mcg-mcg-mg tab Take 1 tablet by mouth once daily. 90 tablet 3 04/28/2015 Active Comment on above: Take 1 tablet by mouth once daily. Mv,Ca,Min-Iron- Fa-Lycopene (A Thru Z Men's Ultimate) 8 mg iron- 200 mcg-600 mcg tablet (8 sources) Start: 11-04-2023 take 8 tablets by mouth once daily Mv,Ca,Rir-Adzi-Lq-L ycopene (A Thru Z Men's Ultimate) 8 mg iron- 200 mcg-600 mcg tablet Active 1 {tbl} PO DAILY November 04, 2023 12:00am SUPPLEMENT Start: 11-04-2023 take 8 tablets by [facility] once daily Mv,Ca,Pbx-Tzcs-Oh-Lycopene (A Thru Z Men 's Ultimate) 8 mg iron- 200 mcg-600 mcg tablet Active 1 {tbl} PO DAILY November 04, 2023 12:00am terazosin 5 mg oral capsule (20 sources) alpha-Adrenergic Carlita Start: 12-08-2018 take 1 capsule by mouth once daily in the evening Terazosin 5 MG capsule Active 5 mg PO EVERY EVENING December 08, 2018 12:00am BLOOD PRESSURE Start: 03-03-2017 End: 03-02-2024 take 1 capsule by mouth once daily at bedtime terazosin (HYTRIN) 2 mg capsule Take 1 capsule by mouth daily at bedtime. 90 capsule 03/03/2017 03/02/2024 Discontinued (Dosage adjustment) Comment on above: Take 1 capsule by mo [facility] daily at bedtime. Completed/Discontinued Medications Medication Drug Class(es) Dates Sig (Normalized) Sig (Original) cephalexin 500 mg oral capsule (11 sources) Cephalosporin Antibacterial Start: 03-01-2023 End: 11-04-2023 take 1 capsule by mouth every eight hours Cephalexin 500 mg capsule Discontinued 500 mg PO Q8H 15 5 March 01, 2023 12:00am November 04, 2023 9:15am ciprofloxacin 500 mg oral tablet (20 sources) Quinolone Antimicrobial Start: 11-14-2024 End: 01-07-2025 take 1 tablet by mouth twice daily Ciprofloxacin Hcl (Cipro) 500 mg tablet Discontinued 500 mg PO TWICE A DAY 14 7 November 14, 2024 12:00am January 07, 2025 2:10pm Start: 03-28-2024 End: 04-02-2024 take 1 tablet [...] Discontinued 500 mg PO TWICE A DAY 10 2023 12:00am December 06, 2023 1:12am Start: 02-20-2023 End: 11-04-2023 take 1 tablet by mouth twice daily Ciprofloxacin Hcl (Cipro) 500 mg tablet Discontinued 500 mg PO TWICE A DAY 14 February 20, 2023 12:00am November 04, 2023 9:15am Start: 12-15-2018 End: 02-14-2023 take 1 tablet by mouth twice daily Ciprofloxacin Hcl (Cipro) 500 mg tablet Discontinued 500 mg PO TWICE A DAY 10 February 02, 2023 12:00am February 14, 2023 1:42pm furosemide 20 mg oral tablet (19 sources) Loop Diuretic Start: 11-03-2023 End: 01-11-2024 take 1 tablet by mouth once daily Furosemide 20 mg tablet Discontinued 20 mg PO DAILY November 04, 2023 12:00am January 11, 2024 12:36am On Hold: edema residued gabapentin 100 mg oral capsule (12 sources) Anti-epileptic Agent Start: 02-19-2023 End: 11-04-2023 take 1 capsule by mouth every eight hours Gabapentin 100 mg capsule Discontinued 100 mg PO Q8H February 19, 2023 12:00am November 04, 2023 9:15am ibuprofen 600 mg oral tablet (20 sources) Nonsteroidal Anti-inflammatory Drug Start: 12-15-2018 End: 02-20-2023 take 1 tablet by mouth every six hours as needed for pain Ibuprofen 600 MG tablet Discontinued 600 mg PO EVERY 6 HOURS NEEDED as needed for Pain 14 0 December 15, 2018 1:45pm February 20, 2023 1:43am levoFLOXacin 500 mg oral tablet (7 sources) Quinolone Antimicrobial Start: 08-20-2024 End: 01-07-2025 take 1 tablet by mouth once daily Levofloxacin 500 mg tablet Discontinued 500 mg PO DAILY 5 5 0 August 20, 2024 12:00am January 07, 2025 2:10pm phenazopyridine hydrochloride 100 mg oral tablet (20 sources) Start: 12-15-2018 End: 02-14-2023 take 1 tablet by mouth three times daily as needed Phenazopyridine 100 MG tablet Discontinued 100 mg PO 3 TIMES DAILY NEEDED as needed for burning 14 0 December 15, 2018 1:45pm February 14, 2023 1:43pm Problems Active Problems Problem Classification Problem Date Documented Date Episodic/Chronic Cancer of prostate (20 sources) Malignant tumor of prostate; Translations: [Malignant neoplasm of prostate] Onset: 07-06-2011 02-16-2023 Chronic Diverticulosis and diverticulitis (12 sources) Diverticulosis of colon; Translations: [Diverticulosis of large intestine without perforation or abscess without bleeding] 10-03-2006 Chronic Essential hypertension (20 sources) Benign essential hypertension; Translations: [Essential (primary) hypertension] Onset: 06-01-2021 06-01-2021 Chronic Genitourinary symptoms and ill-defined conditions (8 sources) Male urinary stress incontinence; Translations: [Stress incontinence (female) (male)] Onset: 05-11-2024 12-16-2023 Chronic Hemorrhoids (12 sources) Internal hemorrhoids; Translations: [Other hemorrhoids] 10-03-2006 Episodic Osteoarthritis (12 sources) Osteoarthritis; Translations: [Unspecified osteoarthritis, unspecified site] 12-22-2004 Chronic Other and unspecified benign neoplasm (12 sources) Benign neoplasm of colon; Translations: [Benign neoplasm of colon, unspecified] 10-03-2006 Episodic Other circulatory disease (15 sources) Low blood pressure; Translations: [Hypotension, unspecified] 08-14-2024 Episodic Other diseases of bladder and urethra (9 sources) Contracture of bladder neck; Translations: [Bladder-neck [...] diseases of bladder and urethra (8 sources) Bladder dysfunction; Translations: [Neuromuscular dysfunction of bladder, unspecified] 12-21-2023 Chronic Other diseases of bladder and urethra (13 sources) Lesion of bladder; Translations: [Bladder disorder, [...] nutritional; endocrine; and metabolic disorders (13 sources) Body mass index 25-29 - overweight; Translations: [Overweight] 08-15-2024 Episodic Other screening for suspected conditions (not mental disorders or infectious disease) (20 sources) Patient encounter status; Translations: [Encounter for screening for malignant neoplasm of colon] Onset: 05-09-2006 Resolved: 08-10-2011 11-21-2015 Episodic Unclassified (6 sources) [place] called the office and they were closed for lunch. Please schedule your follow up appointment. Unclassified (6 sources) For suprapubic catheter. Unclassified (6 sources) As needed. 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 due to chronic exposure to nonionizing radiation] Onset: 10-29-2008 10-29-2008 Episodic Bacterial infection; unspecified site (14 sources) Bacteremia caused by Gram-negative bacteria; Translations: [Bacteremia] Onset: 08-20-2024 08-17-2024 Episodic Cancer of prostate (20 sources) History of malignant neoplasm of prostate; Translations: [Personal history of malignant neoplasm of prostate] Onset: 08-30-2024 08-14-2024 Episodic Complication of device; implant or graft (20 sources) Obstructed indwelling urinary catheter; Translations: [Other mechanical complication of indwelling urethral catheter, initial encounter] Onset: 07-01-2024 02-20-2023 Episodic Deficiency and other anemia (1 source) [...] time of the procedure] Onset: 06-08-2024 Episodic Genitourinary symptoms and ill-defined conditions (20 sources) Retention of urine; Translations: [Retention of urine, unspecified] Onset: 02-07-2023 02-02-2023 Episodic Hyperplasia of prostate (20 sources) Benign prostatic hypertrophy with outflow obstruction; Translations: [Benign prostatic hyperplasia with lower urinary tract symptoms] Onset: 05-25-2007 Resolved: 11-24-2011 11-24-2011 Chronic Other and unspecified benign neoplasm (12 sources) Melanocytic nevus of trunk; Translations: [Melanocytic nevi of trunk] Onset: 05-19-2009 05-19-2009 Episodic Other circulatory disease (12 sources) Spider nevus; Translations: [Nevus, non-neoplastic] Onset: 05-19-2009 05-19-2009 Episodic Other circulatory disease (1 source) Hypotension, unspecified; Translations: [Hypotension, unspecified] Onset: 08-30-2024 Episodic Other inflammatory condition of skin (1 source) Pruritus, unspecified; Translations: [Pruritus, unspecified] Onset: 08-01-2024 Episodic Other nutritional; endocrine; and metabolic disorders (13 sources) Overweight; Translations: [Overweight] Onset: 02-26-2006 02-26-2006 Episodic Other skin disorders (12 sources) Seborrheic keratosis; Translations: [Other seborrheic keratosis] Onset: 10-29-2008 10-29-2008 Episodic Other skin disorders (12 sources) Actinic keratosis; Translations: [Actinic keratosis] Onset: 05-19-2009 05-19-2009 Episodic Other skin disorders (12 sources) Solar lentigo; Translations: [Other melanin hyperpigmentation] Onset: 05-19-2009 05-19-2009 Episodic Residual codes; unclassified (1 source) Acquired absence of other genital organ(s); Translations: [Acquired absence of other genital organ(s)] Onset: 08-30-2024 Episodic Septicemia (except in labor) (20 sources) Sepsis; Translations: [Sepsis, unspecified organism] Onset: 08-30-2024 08-14-2024 Episodic Shock (1 source) Severe sepsis with septic shock; Translations: [Severe sepsis with septic shock] Onset: 08-30-2024 Episodic 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, [address] Chloride [Moles/Vol] 103 mmol/L Normal 98-108 [facility] Comment on above: Performed By: #### L 500.2500, L100.0100 ####[facility] [address] [place], [address] CO2 [Moles/Vol] 20.5 mmol/L Low 21.0-32.0 [facility] Comment on above: Performed By: #### L 500.2500, L100.0100 ####[facility] [address] [place], [address] Creatinine [Mass/Vol] 1.26 mg/dL High 0.70-1.20 [facility] Comment on above: Performed By: #### L 500.2500, L100.0100 ####[facility] [address] [place], [address] ECRCL 56.85 ml/min Normal 50-250 [facility] Comment on above: Performed By: #### L 500.2500, L100.0100 ####[facility] [address] [place], [address] GAP 11 Normal 5-15 [facility] Comment on above: Performed By: #### L 500.2500, L100.0100 ####[facility] [address] [place], [address] GFR/1.73 sq M.predicted among non-blacks MDRD (S/P/Bld) [Vol rate/Area] 59 mL/min/{1.73_m2} Low >60 [facility] Comment on above: Result Comment: mL/m in/1.73m2 CKD-EPI Creatinine Equation (2020) Performed By: #### L 500.2500, L100.0100 ####[facility] [address] [place], [address] Glucose [Mass/Vol] 121 mg/dL High 70-99 [facility] Comment on above: Performed By: #### L 500.2500, L100.0100 ####[facility] [address] [place], [address] Potassium [Moles/Vol] 4.0 mmol/L Normal 3.3-5.1 [facility] Comment on above: Performed By: #### L 500.2500, L100.0100 ####[facility] [address] [place], [address] Sodium [Moles/Vol] 135 mmol/L Normal 133-145 [facility] Comment on above: Performed By: #### L 500.2500, L100.0100 ####[facility] [address] [place], [address] Urea nitrogen [Mass/Vol] 18 mg/dL Normal 4-19 [facility] Comment on above: Performed By: #### L 500.2500, L100.0100 ####[facility] [address] [place], [address] CBC W/Diff, Automatedon 02-05 Absolute Lymph 0.50 X10 3/uL Low 0.83-4.51 [facility] Comment on above: Performed By: #### L 500.2500, L100.0100 ####[facility] [address] [place], [address] Absolute Neut 3.1 X10 3/uL Normal 2.0-7.7 [facility] Comment on above: Performed By: #### L 500.2500, L100.0100 ####[facility] [address] [place], [address] Basophils/100 WBC (Bld) 0.3 % Normal 0-1 [facility] Comment on above: Performed By: #### L 500.2500, L100.0100 ####[facility] [address] [place], [address] Eosinophils/100 WBC (Bld) 4.1 % Normal 0-5 [facility] Comment on above: Performed By: #### L 500.2500, L100.0100 ####[facility] [address] [place], [address] Erythrocyte distribution width (RBC) [Ratio] 13.7 % Normal 11.6-14.6 [facility] Comment on above: Performed By: #### L 500.2500, L100.0100 ####[facility] [address] [place], [address] Hematocrit (Bld) [Volume fraction] 34.0 % Low 40-54 [facility] Comment on above: Performed By: #### L 500.2500, L100.0100 ####[facility] [address] [place], [address] Hemoglobin (Bld) [Mass/Vol] 11.6 g/dL Low 13.0-16.5 [facility] Comment on above: Performed By: #### L 500.2500, L100.0100 ####[facility] [address] [place], [address] IG% 1.000 High 0.0-0.9 [facility] Comment on above: Result Comment: IG% - Immature Granulocytes (promyelocytes, myelocytes andmetamyelocytes) > 1% indicates that a LEFT SHIFT is Present. Performed By: #### L 500.2500, L100.0100 ####[facility] [address] [place], [address] Lymphocytes/100 WBC (Bld) 12.7 % Low 19-41 [facility] Comment on above: Performed By: #### L 500.2500, L100.0100 ####[facility] [address] [place], [address] MCH (RBC) [Entitic mass] 29.7 pg Normal 27.0-32.0 [facility] Comment on above: Performed By: #### L 500.2500, L100.0100 ####[facility] [address] [place], [address] MCHC (RBC) [Mass/Vol] 34.1 g/dL Normal 32-36 [facility] Comment on above: Performed By: #### L 500.2500, L100.0100 ####[facility] [address] [place], [address] MCV (RBC) [Entitic vol] 87.2 fL Normal 80-94 [facility] Comment on above: Performed By: #### L 500.2500, L100.0100 ####[facility] [address] [place], [address] Monocytes/100 WBC (Bld) 3.8 % Normal 0-10 [facility] Comment on above: Performed By: #### L 500.2500, L100.0100 ####[facility] [address] [place], [address] Neutrophils/100 WBC (Bld) 78.1 % High 47-70 [facility] Comment on above: Performed By: #### L 500.2500, L100.0100 ####[facility] [address] [place], [address] Nucleated RBC (Bld) [#/Vol] 0 10*3/uL Normal 0-5 [facility] Comment on above: Performed By: #### L 500.2500, L100.0100 ####[facility] [address] [place], [address] Platelet mean volume (Bld) [Entitic vol] 9.9 fL Normal 6.2-12.0 [facility] Comment on above: Performed By: #### L 500.2500, L100.0100 ####[facility] [address] [place], [address] Platelets (Bld) [#/Vol] 185 10*3/uL Normal 150-450 [facility] Comment on above: Performed By: #### L 500.2500, L100.0100 ####[facility] [address] [place], [address] RBC (Bld) [#/Vol] 3.90 10*6/uL Low 4.6-6.2 [facility] Comment on above: Performed By: #### L 500.2500, L100.0100 ####[facility] [address] [place], [address] RDW SD 43.8 fl Normal 35.1-43.9 [facility] Comment on above: Performed By: #### L 500.2500, L100.0100 ####[facility] [address] [place], [address] WBC (Bld) [#/Vol] 3.9 10*3/uL Low 4.4-11.0 [facility] Comment on above: Performed By: #### L 500.2500, L100.0100 ####[facility] [address] [place], [address] Chest PA and Lateralon 02-24 Chest PA and Lateral Normal [facility] Emergency Department Summary on 02-24-2025 Emergency Department Summary Normal [facility] M100.678on 02-24-2025 M100.678 Pending SARS-CoV-2 (COVID 19) Negative INFLUENZA A Negative INFLUENZA B Negative RSV PCR Negative Normal [facility] Comment on above: Performed By: #### M 100.678, L400.0001 ####[facility] [address] [place], [address] Urinalysis, Completeon 02-24 AMORPHOUS 1+ Normal [facility] Comment on above: Order Comment: JAY CTOR TO SPECIFY Performed By: #### M 100.678, L400.0001 ####[facility] [address] [place], [address] BACTERIA 3+ /hpf Normal None Seen [facility] Comment on above: Order Comment: JAY CTOR TO SPECIFY Performed By: #### M 100.678, L400.0001 ####[facility] [address] [place], [address] EPI,SQUAMOUS 0-5 SEEN Normal 0-5 [facility] Comment on above: Order Comment: [facility] CTOR TO SPECIFY Performed By: #### M 100.678, L400.0001 ####[facility] [address] [place], [address] RBC 5-10 SEEN Normal 0-5 [facility] Comment on above: Order Comment: [facility] CTOR TO SPECIFY Performed By: #### M 100.678, L400.0001 ####[facility] [address] [place], [address] WBC >100 SEEN Normal 0-5 [facility] Comment on above: Order Comment: [facility] CTOR TO SPECIFY Performed By: #### M 100.678, L400.0001 ####[facility] [address] [place], [address] Mucus Ql (Urine sed) 0 SEEN Normal [facility] Comment on above: Order Comment: JAY CTOR TO SPECIFY Performed By: #### M 100.678, L400.0001 ####[facility] [address] [place], [address] Urgent Care Visit Reporton 0 01-07-2025 Urgent Care Visit Report Normal [facility] Calculated very low density lipoprotein (VLDL) cholesterol measurementOrdered By: Kelvin Han on 12-04-2024 Calculated very low density lipoprotein (VLDL) cholesterol measurement 16 mg/dL 5-40 [facility] LDL calc ser/plasOrdered By: Kelvin Han on 12-04-2024 Cholesterol in LDL [Mass/Vol] 101 mg/dL [facility] Comment on above: Edykabckjs=653-051 m g/dL & Higher Qjfz=827 mg/dL or greater Lipid Profileon 12-04-2024 CHOL:HDL 3.21 Normal [facility] Comment on above: Order Comment: Order Date: 12/03/24Order Info: [id number] - LIPID Performed By: #### L 500.4100 ####[facility] [address] [place], [place], [address] Cholesterol [Mass/Vol] 169 mg/dL Normal <=200 [facility] Comment on above: Order Comment: Order Date: 12/03/24Order Info: [id number] - LIPID Result Comment: Chol esterol level, Desirable <200 mg/dLBorderline high cholesterol 200-239 mg/dLHigh cholesterol >=240 mg/dLRecommendations of the NCEP Adult Treatment Panel for thefollowing risk-cutoff thresholds for the [place] Americanpopulation. Performed By: #### L 500.4100 ####[facility] [address] [place], [place], [address] Cholesterol in HDL [Mass/Vol] 53 mg/dL Normal [facility] Comment on above: Order Comment: Order Date: 12/03/24Order Info: [id number] - LIPID Result Comment: [place]ey[place] onal Cholesterol Education Program (NCEP) guidelines:<40 mg/dL: Low HDL-cholesterol (major risk factor for CHD)>= 60 mg/dL: High HDL-cholesterol (negative risk factor forCHD)HDL-cholesterol is affected by a number of factors, e.g.smoking, exercise, hormones, sex and age. Performed By: #### L 500.4100 ####[facility] [address] [place], [place], [address] Cholesterol in LDL [Mass/Vol] 101 mg/dL Normal [facility] Comment on above: Order Comment: Order Date: 12/03/24Order Info: [id number] - LIPID Result Comment: Bord uocxzv=840-678 mg/dL Higher Rosm=602 mg/dL or greater Performed By: #### L 500.4100 ####[facility] [address] [place], [place], [address] Cholesterol in VLDL [Mass/Vol] 16 mg/dL Normal 5-40 [facility] Comment on above: Order Comment: Order Date: 12/03/24Order Info: [id number] - LIPID Performed By: #### L 500.4100 ####[facility] [address] [place], [address] Triglyceride [Mass/Vol] 78 mg/dL Normal [facility] Comment on above: Order Comment: Order Date: 12/03/24Order Info: [id number] - LIPID Result Comment: The drugs N-Acetylcysteine and Metamizole may falselydepress this assay.Normal range: <150 mg/dLBorderline High: 150-199 mg/dLHigh: 200-499 mg/dLVery High: >500 mg/dL Performed By: #### L 500.4100 ####[facility] [address] [place], [place], [address] Screening total cholesterol/ high density lipoprotein (HDL) cholesterol ratioOrdered By: Kelvin Han on 12-04-2024 Cholesterol.total/Choles terol in HDL [Mass ratio] 3.21 {ratio} [facility] Serum or plasma cholesterol in HDL measurement (mass/volume)Ordered By: Kelvin Han on 12-04-2024 Cholesterol in HDL [Mass/Vol] 53 mg/dL >40 [facility] Comment on above: National Cholesterol Education Program (NCEP) guidelines:<40 mg/dL: Low HDL-cholesterol (major risk factor for CHD)>= 60 mg/dL: High HDL-cholesterol (negative risk factor for CHD)HDL-cholesterol is affected by a number of factors, e.g. smoking, exercise, hormones, sex and age. Serum or plasma cholesterol measurement (mass/volume)Ordered By: Kelvin Han on 12-04-2024 Cholesterol [Mass/Vol] 169 mg/dL <201 [facility] Comment on above: Cholesterol level, D esirable <200 mg/dLBorderline high cholesterol 200-239 mg/dLHigh cholesterol >=240 mg/dLRecommendations of the NCEP Adult Treatment Panel for the following risk-cutoff thresholds for the [place] population. Triglycerides measurementOrd ered By: Kelvin Han on 12-04-2024 Triglyceride [Mass/Vol] 78 mg/dL <199 [facility] Comment on above: The drugs N-Acetylcy steine and Metamizole may falsely depress this assay. Normal range: <150 mg/dLBorderline High: 150-199 mg/dLHigh: 200-499 mg/dLVery High: >500 mg/dL Emergency Department Summary on 11-18-2024 Emergency Department Summary Normal [facility] Urine Cultureon 11-17-2024 URC Normal [facility] Comment on above: Performed By: #### M 100.2200 ####[facility] [address] [place], [place], [address] Urinalysis, Completeon 11-14 BACTERIA 4+ /hpf Normal None Seen [facility] Comment on above: Order Comment: JAY CTOR TO SPECIFY Performed By: #### L 400.0001 ####[facility] [address] [place], [address] CAST,HYALINE 0-5 SEEN Normal 0-5 [facility] Comment on above: Order Comment: JAY CTOR TO SPECIFY Performed By: #### L 400.0001 ####[facility] [address] [place], [address] EPI,SQUAMOUS 0-5 SEEN Normal 0-5 [facility] Comment on above: Order Comment: COLLE CTOR TO SPECIFY Performed By: #### L 400.0001 ####[facility] [address] [place], [address] Mucus Ql (Urine sed) 1+ /hpf Normal [facility] Comment on above: Order Comment: JAY CTOR TO SPECIFY Performed By: #### L 400.0001 ####[facility] [address] [place], [address] RBC 25-50 SEEN Normal 0-5 [facility] Comment on above: Order Comment: JAY CTOR TO SPECIFY Performed By: #### L 400.0001 ####[facility] [address] [place], [address] TRIPLE PHOS 1+ /hpf Normal [facility] Comment on above: Order Comment: JAY CTOR TO SPECIFY Performed By: #### L 400.0001 ####[facility] [address] [place], [address] WBC >100 SEEN Normal 0-5 [facility] Comment on above: Order Comment: JAY CTOR TO SPECIFY Performed By: #### L 400.0001 ####[facility] [address] [place], [address] LEUK ESTERASE 500 /ul Abnormal Negative [facility] Comment on above: Order Comment: JAY CTOR TO SPECIFY Performed By: #### L 400.0001 ####[facility] [address] [place], [address] Nitrite Ql (U) Positive Abnormal Negative [facility] Comment on above: Order Comment: JAY CTOR TO SPECIFY Performed By: #### L 400.0001 ####[facility] [address] [place], [address] OCCULT BLOOD-UR 250 /ul Abnormal Negative [facility] Comment on above: Order Comment: JAY CTOR TO SPECIFY Performed By: #### L 400.0001 ####[facility] [address] [place], [address] UROBILI Normal Normal Normal [facility] Comment on above: Order Comment: JAY CTOR TO SPECIFY Performed By: #### L 400.0001 ####[facility] [address] [place], [address] BILIRUBIN URINE Negative Normal Negative [facility] Comment on above: Order Comment: JAY CTOR TO SPECIFY Performed By: #### L 400.0001 ####[facility] [address] [place], [address] Clarity (U) Cloudy Normal Clear [facility] Comment on above: Order Comment: JAY CTOR TO SPECIFY Performed By: #### L 400.0001 ####[facility] [address] [place], [address] Color (U) Yellow Normal Yellow [facility] Comment on above: Order Comment: JAY CTOR TO SPECIFY Performed By: #### L 400.0001 ####[facility] [address] [place], [address] GLUCOSE, UR Negative Normal Normal [facility] Comment on above: Order Comment: JAY CTOR TO SPECIFY Performed By: #### L 400.0001 ####[facility] [address] [place], [address] KETONE UR Negative Normal Negative [facility] Comment on above: Order Comment: JAY CTOR TO SPECIFY Performed By: #### L 400.0001 ####[facility] [address] [place], [address] pH UR 8.0 Normal 5.0 - 8.0 [facility] Comment on above: Order Comment: JAY CTOR TO SPECIFY Performed By: #### L 400.0001 ####[facility] [address] [place], [address] PROT DIPSTX 100 mg/dl Abnormal Negative [facility] Comment on above: Order Comment: JAY CTOR TO SPECIFY Performed By: #### L 400.0001 ####[facility] [address] [place], [address] SP.GR. DIPSTX 1.010 Normal 1.002-1.030 [facility] Comment on above: Order Comment: COLLE CTOR TO SPECIFY Performed By: #### L 400.0001 ####[facility] [address] [place], [address] Bilirubin Test strip Ql (U)O rdered By: Jorge Alberto Love on 11-13-2024 Bilirubin Ql (U) Negative Negative [facility] Emergency Department Summary on 11-13-2024 Emergency Department Summary Normal [facility] Hyaline casts LM.LPF (Urine sed) [#/Area]Ordered By: Jorge Alberto Love on 11-13-2024 Hyaline casts (Urine sed) [#/Area] 0 /[LPF] 0-5 [facility] Ketones Test strip Ql (U)Ord ered By: Jorge Alberto Love on 11-13-2024 Ketones Ql (U) Negative Negative [facility] Microscopic analysis of urin e for red blood cells (RBC)Ordered By: Jorge Alberto Love on 11-13-2024 Microscopic analysis of urine for red blood cells (RBC) 25-50 SEEN /hpf 0-5 [facility] Mucus LM Ql (Urine sed)Order ed By: Jorge Alberto Love on 11-13-2024 Mucus Ql (Urine sed) 1+ /hpf [facility] Nitrite Test strip Ql (U)Ord ered By: Jorge Alberto Love on 11-13-2024 Nitrite Ql (U) Positive High Negative [facility] Protein Test strip Ql (U)Ord ered By: Jorge Alberto Love on 11-13-2024 Protein Ql (U) 100 mg/dl High Negative [facility] Squamous epithelial cells de tection in urine sediment by light microscopyOrdered By: Jorge Alberto Love on 11-13-2024 Epithelial cells.squamous LM Ql (Urine sed) 0-5 SEEN /hpf 0-5 [facility] Triple phosphate crystals de tection in urine sediment by light microscopyOrdered By: Jorge Albetro Love on 11-13-2024 Triple phosphate crystals LM Ql (Urine sed) 1+ /hpf [facility] Urine clarityOrdered By: Scott Love on 11-13-2024 Clarity (U) Cloudy Clear [facility] Urine color determinationOrd ered By: Jorge Alberto Love on 11-13-2024 Color (U) Yellow Yellow [facility] Urine cultureOrdered By: Scott Love on 11-13-2024 Bacteria identified Cx Nom (U) Providencia rettgeri Abnormal [facility] Bacteria identified Cx Nom (U) Corynebacterium striatum Abnormal [facility] Urine glucose detectionOrder ed By: Jorge Alberto Love on 11-13-2024 Glucose Ql (U) Negative Normal [facility] Urine leukocyte esterase det ection by dipstickOrdered By: Jorge Alberto Love on 11-13-2024 Leukocyte esterase Test strip Ql (U) 500 /ul High Negative [facility] Urine pHOrdered By: Jorge Alberto whatley on 11-13-2024 pH (U) 8.0 [pH] 5.0 - 8.0 [facility] Urine sediment bacteria coun t by microscopy (number/high power field)Ordered By: Jorge Alberto Love on 11-13-2024 Bacteria LM.HPF (Urine sed) [#/Area] 4 /[HPF] None Seen [facility] Urine specific gravity measu rementOrdered By: Jorge Alberto Love on 11-13-2024 Specific gravity (U) [Rel density] 1.010 1.002-1.030 [facility] Urine urobilinogen measureme ntOrdered By: Jorge Alberto Love on 11-13-2024 Urobilinogen Ql (U) Normal mg/dl Normal [facility] White blood cell countOrdere d By: Jorge Alberto Love on 11-13-2024 White blood cell count >100 SEEN /hpf 0-5 [facility] Emergency Department Summary on 10-16-2024 Emergency Department Summary Normal [facility] CELSA w/Comprehensiveon 2024 CELSA TABLE Comment Normal . [facility] Comment on above: Result Comment: Auto [...] Ribosomal P SLE 10 - 20%Performed at: [place] [id number] Director: Basilio Ricci PhD, Phone: [phone] AMENDED REPORT 09/25/241107 COMMENT previously reported as: Test not performed Performed By: #### L 3100.5430, L3100.5440, T241.9548 ####[facility] [address] [place], [address] ANTI-CENT B AB <0.2 Normal 0.0-0.9 [facility] Comment on above: Result Comment: AMENDED REPORT 09/25/241107 ANTI-CENT B previously reported as: Test not performed Performed By: #### L 3100.5430, L3100.5440, L507.5397 ####[facility] [address] [place], [address] ANTI-DNA (DS)AB 3 IU/mL Normal 0-9 [facility] Comment on above: Result Comment: Nega tive <5 Equivocal 5 - 9 Positive >9 AMENDED REPORT 09/25/241107 dsDNA AB previously reported as: Test not performed Performed By: #### L 3100.5430, L3100.5440, L501.9940 ####[facility] [address] [place], [address] ANTI-MISTY-1 <0.2 Normal 0.0-0.9 [facility] Comment on above: Result Comment: AMENDED REPORT 09/25/241107 ANTI-MISTY previously reported as: Test not performed Performed By: #### L 3100.5430, L3100.5440, L501.9940 ####[facility] [address] [place], [address] ANTI-SS-A > 8.0 High 0.0-0.9 [facility] Comment on above: Result Comment: AMENDED REPORT 09/25/241107 Anti-SS-A previously reported as: Test not performed Performed By: #### L 3100.5430, L3100.5440, L501.9940 ####[facility] [address] [place], [address] ANTI-SS-B < 0.2 Normal 0.0-0.9 [facility] Comment on above: Result Comment: AMENDED REPORT 09/25/241107 Anti-SS-B previously reported as: Test not performed Performed By: #### L 3100.5430, L3100.5440, L501.9940 ####[facility] [address] [place], [address] ANTICHROMATIN 0.2 AI Normal 0.0-0.9 [facility] Comment on above: Result Comment: AMENDED REPORT 09/25/241107 ANTICHROMATIN previously reported as: Test not performed Performed By: #### L 3100.5430, L3100.5440, L501.9940 ####[facility] [address] [place], [address] Antiribosomal P 0.3 AI Normal 0.0-0.9 [facility] Comment on above: Result Comment: AMENDED REPORT 09/25/241107 Anti-P previously reported as: Test not performed Performed By: #### L 3100.5430, L3100.5440, L501.9940 ####[facility] [address] [place], [address] ANTISCLERODERM <0.2 Normal 0.0-0.9 [facility] Comment on above: Result Comment: AMENDED REPORT 09/25/241107 ANTISCLER previously reported as: Test not performed Performed By: #### L 3100.5430, L3100.5440, L501.9940 ####[facility] [address] [place], [address] MILK ROUTE SUPERVISOR Ab <0.2 Normal 0.0-0.9 [facility] Comment on above: Result Comment: AMENDED REPORT 09/25/241107 MIL[employer] SUPERVISOR Ab previously reported as: Test not performed Performed By: #### L 3100.5430, L3100.5440, L501.9940 ####[facility] [address] [place], [address] HODGES Ab <0.2 Normal 0.0-0.9 [facility] Comment on above: Result Comment: AMENDED REPORT 09/25/241107 HODGES Ab previously reported as: Test not performed Performed By: #### L 3100.5430, L3100.5440, L501.9940 ####[facility] [address] [place], [address] HODGES/MILK ROUTE SUPERVISOR Ab <0.2 Normal 0.0-0.9 [facility] Comment on above: Result Comment: AMENDED REPORT 04/22/25 1108 HODGES/MILK ROUTE SUPERVISOR Ab previously reported as: Test not performed Performed By: #### L 3100.5430, L3100.5440, L501.9940 ####[facility] [address] [place], [address] CBC W/Diff, Automatedon - PATH REV Reviewed Normal [facility] Comment on above: Result Comment: SEE REPORT IN PATIENT'S EMR AMENDED REPORT 09/19/24 1353 PATH REV previously reported as: May foll Performed By: #### L 100.0100, L500.2500 ####[facility] [address] [place], [address] CELSA Comprehensive Panelon CELSA TABLE TNP Normal [facility] Comment on above: Order Comment: MISAEL Manuel NOWS WHAT THIS GOES TO :) Result Comment: . Performed By: #### L 3100.5430, L3100.5440, L501.9940 ####[facility] [address] [place], [address] ANTI-CENT B AB TNP Normal [facility] Comment on above: Order Comment: MISAEL Manuel NOWS WHAT THIS GOES TO :) Result Comment: . Performed By: #### L 3100.5430, L3100.5440, L501.9940 ####[facility] [address] [place], [address] ANTI-DNA (DS)AB TNP Normal [facility] Comment on above: Order Comment: MISAEL Manuel NOWS WHAT THIS GOES TO :) Result Comment: . Performed By: #### L 3100.5430, L3100.5440, L501.9940 ####[facility] [address] [place], [address] ANTI-MISTY-1 TNP Normal [facility] Comment on above: Order Comment: MISAEL Manuel NOWS WHAT THIS GOES TO :) Result Comment: . Performed By: #### L 3100.5430, L3100.5440, L501.9940 ####[facility] [address] [place], [address] ANTI-SS-A TNP Normal [facility] Comment on above: Order Comment: MISAEL Manuel NOWS WHAT THIS GOES TO :) Result Comment: . Performed By: #### L 3100.5430, L3100.5440, L501.9940 ####[facility] [address] [place], [address] ANTI-SS-B TNP Normal [facility] Comment on above: Order Comment: MISAEL Manuel NOWS WHAT THIS GOES TO :) Result Comment: . Performed By: #### L 3100.5430, L3100.5440, L501.9940 ####[facility] [address] [place], [address] ANTICHROMATIN TNP Normal [facility] Comment on above: Order Comment: MISAEL Manuel NOWS WHAT THIS GOES TO :) Result Comment: . Performed By: #### L 3100.5430, L3100.5440, L501.9940 ####[facility] [address] [place], [address] ANTISCLERODERM TNP Normal [facility] Comment on above: Order Comment: MISAEL Manuel NOWS WHAT THIS GOES TO :) Result Comment: . Performed By: #### L 3100.5430, L3100.5440, L501.9940 ####[facility] [address] [place], [address] MILK ROUTE SUPERVISOR Ab TNP Normal [facility] Comment on above: Order Comment: MISAEL Manuel NOWS WHAT THIS GOES TO :) Result Comment: . Performed By: #### L 3100.5430, L3100.5440, L501.9940 ####[facility] [address] [place], [address] HODGES Ab TNP Normal [facility] Comment on above: Order Comment: MISAEL Manuel NOWS WHAT THIS GOES TO :) Result Comment: . Performed By: #### L 3100.5430, L3100.5440, L501.9940 ####[facility] [address] [place], [address] Absolute lymphocyte countOrd ered By: Kelvin Han on 09-18-2024 Lymphocytes Auto (Unsp spec) [#/Vol] 0.79 10*3/uL Low 0.83-4.51 [facility] Absolute neutrophil countOrd ered By: Kelvin Han on 09-18-2024 Neutrophils (Bld) [#/Vol] 4.3 10*3/uL 2.0-7.7 [facility] Anion gap in Serum or Plasma Ordered By: Kelvin Han on 09-18-2024 Anion gap [Moles/Vol] 12 mmol/L 10-18 [facility] Automated lymphocyte count a s percentage of total leukocytesOrdered By: Kelvin Han on 09-18-2024 Lymphocytes/100 WBC Auto (Unsp spec) 13.7 % Low 19-41 [facility] BUN/creatinine ratioOrdered By: Kelvin Han on 09-18-2024 Urea nitrogen/Creatinine [Mass ratio] 15.4 mg/mg 10-20 [facility] [facility] Basophil percentageOrdered B y: Kelvin Han on 09-18-2024 Basophils/100 WBC (Bld) 0.2 % 0-1 [facility] Bilirubin, totalOrdered By: Kelvin Han on 09-18-2024 Bilirubin [Mass/Vol] 0.36 mg/dL 0.00-1.30 [facility] CBC W/Diff, Automatedon 09-04 Absolute Lymph 0.79 X10 3/uL Low 0.83-4.51 [facility] Comment on above: Order Comment: Order Date: 09/17/24Order Info: [id number] - CBCDOrder Info: [id number] - SED Performed By: #### L 101.9900, L100.0100, L500.4050, L501.9520 ####[facility] [address] [place], [address] Absolute Neut 4.3 X10 3/uL Normal 2.0-7.7 [facility] Comment on above: Order Comment: Order Date: 09/17/24Order Info: 183- - CBCDOrder Info: [id number] - SED Performed By: #### L 101.9900, L100.0100, L500.4050, L501.9520 ####[facility] [address] [place], [address] Basophils/100 WBC (Bld) 0.2 % Normal 0-1 [facility] Comment on above: Order Comment: Order Date: 09/17/24Order Info: [id number] - CBCDOrder Info: [id number] - SED Performed By: #### L 101.9900, L100.0100, L500.4050, L501.9520 ####[facility] [address] [place], [address] Eosinophils/100 WBC (Bld) 1.2 % Normal 0-5 [facility] Comment on above: Order Comment: Order Date: 09/17/24Order Info: 183-06 - CBCDOrder Info: [id number] - SED Performed By: #### L 101.9900, L100.0100, L500.4050, L501.9520 ####[facility] [address] [place], [address] Erythrocyte distribution width (RBC) [Ratio] 15.5 % High 11.6-14.6 [facility] Comment on above: Order Comment: Order Date: 09/17/24Order Info: [id number] - CBCDOrder Info: [id number] - SED Performed By: #### L 101.9900, L100.0100, L500.4050, L501.9520 ####[facility] [address] [place], [address] Hematocrit (Bld) [Volume fraction] 35.2 % Low 40-54 [facility] Comment on above: Order Comment: Order Date: 09/17/24Order Info: 183- - CBCDOrder Info: [id number] - SED Performed By: #### L 101.9900, L100.0100, L500.4050, L501.9520 ####[facility] [address] [place], [address] Hemoglobin (Bld) [Mass/Vol] 11.9 g/dL Low 13.0-16.5 [facility] Comment on above: Order Comment: Order Date: 09/17/24Order Info: 183- - CBCDOrder Info: [id number] - SED Performed By: #### L 101.9900, L100.0100, L500.4050, L501.9520 ####[facility] [address] [place], [address] IG% 0.700 Normal 0.0-0.9 [facility] Comment on above: Order Comment: Order Date: 09/17/24Order Info: 183- - CBCDOrder Info: [id number] - SED Result Comment: IG% - Immature Granulocytes (promyelocytes, myelocytes andmetamyelocytes) > 1% indicates that a LEFT SHIFT is Present. Performed By: #### L 101.9900, L100.0100, L500.4050, L501.9520 ####[facility] [address] [place], [address] Lymphocytes/100 WBC (Bld) 13.7 % Low 19-41 [facility] Comment on above: Order Comment: Order Date: 09/17/24Order Info: 018- - CBCDOrder Info: [id number] - SED Performed By: #### L 101.9900, L100.0100, L500.4050, L501.9520 ####[facility] [address] [place], [address] MCH (RBC) [Entitic mass] 28.5 pg Normal 27.0-32.0 [facility] Comment on above: Order Comment: Order Date: 09/17/24Order Info: 183- - CBCDOrder Info: [id number] - SED Performed By: #### L 101.9900, L100.0100, L500.4050, L501.9520 ####[facility] [address] [place], [address] MCHC (RBC) [Mass/Vol] 33.8 g/dL Normal 32-36 [facility] Comment on above: Order Comment: Order Date: 09/17/24Order Info: 183- - CBCDOrder Info: [id number] - SED Performed By: #### L 101.9900, L100.0100, L500.4050, L501.9520 ####[facility] [address] [place], [address] MCV (RBC) [Entitic vol] 84.4 fL Normal 80-94 [facility] Comment on above: Order Comment: Order Date: 09/17/24Order Info: [id number] - CBCDOrder Info: [id number] - SED Performed By: #### L 101.9900, L100.0100, L500.4050, L501.9520 ####[facility] [address] [place], [address] Monocytes/100 WBC (Bld) 8.7 % Normal 0-10 [facility] Comment on above: Order Comment: Order Date: 09/17/24Order Info: 183-06 - CBCDOrder Info: [id number] - SED Performed By: #### L 101.9900, L100.0100, L500.4050, L501.9520 ####[facility] [address] [place], [address] Neutrophils/100 WBC (Bld) 75.5 % High 47-70 [facility] Comment on above: Order Comment: Order Date: 09/17/24Order Info: 183- - CBCDOrder Info: [id number] - SED Performed By: #### L 101.9900, L100.0100, L500.4050, L501.9520 ####[facility] [address] [place], [address] Nucleated RBC (Bld) [#/Vol] 0 10*3/uL Normal 0-5 [facility] Comment on above: Order Comment: Order Date: 09/17/24Order Info: 183- - CBCDOrder Info: [id number] - SED Performed By: #### L 101.9900, L100.0100, L500.4050, L501.9520 ####[facility] [address] [place], [address] Platelet mean volume (Bld) [Entitic vol] 10.7 fL Normal 6.2-12.0 [facility] Comment on above: Order Comment: Order Date: 09/17/24Order Info: 183- - CBCDOrder Info: [id number] - SED Performed By: #### L 101.9900, L100.0100, L500.4050, L501.9520 ####[facility] [address] [place], [address] Platelets (Bld) [#/Vol] 250 10*3/uL Normal 150-450 [facility] Comment on above: Order Comment: Order Date: 09/17/24Order Info: 018- - CBCDOrder Info: [id number] - SED Performed By: #### L 101.9900, L100.0100, L500.4050, L501.9520 ####[facility] [address] [place], [address] RBC (Bld) [#/Vol] 4.17 10*6/uL Low 4.6-6.2 [facility] Comment on above: Order Comment: Order Date: 09/17/24Order Info: [id number]- - CBCDOrder Info: [id number] - SED Performed By: #### L 101.9900, L100.0100, L500.4050, L501.9520 ####[facility] [address] [place], [address] RDW SD 47.6 fl High 35.1-43.9 [facility] Comment on above: Order Comment: Order Date: 09/17/24Order Info: [id number]- - CBCDOrder Info: [id number] - SED Performed By: #### L 101.9900, L100.0100, L500.4050, L501.9520 ####[facility] [address] [place], [address] WBC (Bld) [#/Vol] 5.8 10*3/uL Normal 4.4-11.0 [facility] Comment on above: Order Comment: Order Date: 09/17/24Order Info: 0184- - CBCDOrder Info: [id number] - SED Performed By: #### L 101.9900, L100.0100, L500.4050, L501.9520 ####[facility] [address] [place], [address] CRPon 09-18-2024 C-REACTIVE PROT 3.99 mg/L High 0.0-3.0 [facility] Comment on above: Order Comment: Order Date: 09/17/24Order Info: [id number] - CMPOrder Info: [id number] - CRPOrder Info: [id number] - TSH Performed By: #### L 501.6710 ####[facility] [address] [place], [address] CRP [Mass/Vol]Ordered By: Itzel Han on 09-18-2024 C-Reactive Protein Extended Range 3.99 mg/L High 0.0-3.0 [facility] Carbon dioxide, total [Moles /volume] in Central venous bloodOrdered By: Kelvin Han on 09-18-2024 CO2 [Moles/Vol] 20.5 mmol/L Low 21.0-32.0 [facility] Centromere B antibody assayO rdered By: Kelvin Han on 09-18-2024 Centromere B Antibody TNP [facility] Comment on above: Test not performed Chloride assayOrdered By: Itzel Han on 09-18-2024 Chloride [Moles/Vol] 106 mmol/L 98-108 [facility] Chromatin antibody assayOrde red By: Kelvin Han on 09-18-2024 Antichromatin Antibodies TNP [facility] Comment on above: Test not performed Comprehensive Metabolic Prof ilon 09-18-2024 Albumin [Mass/Vol] 3.8 g/dL Normal 3.4-4.8 [facility] Comment on above: Order Comment: Order Date: 09/17/24Order Info: [id number] - CMPOrder Info: [id number] - CRPOrder Info: 301-3 - TSH Performed By: #### L 101.9900, L100.0100, L500.4050, L501.9520 ####[facility] [address] [facility] [place], [place], [id number] Albumin/Globulin [Mass ratio] 1.0 {ratio} Normal 0.9-2.4 [facility] Comment on above: Order Comment: Order Date: 09/17/24Order Info: [id number] - CMPOrder Info: [id number] - CRPOrder Info: [id number] - TSH Performed By: #### L 101.9900, L100.0100, L500.4050, L501.9520 ####[facility] [address] [place], [place], [id number] ALK PHOS 81 U/L Normal 40-129 [facility] Comment on above: Order Comment: Order Date: 09/17/24Order Info: [id number] - CMPOrder Info: [id number] - CRPOrder Info: [id number] - TSH Performed By: #### L 101.9900, L100.0100, L500.4050, L501.9520 ####[facility] [address] [place], [address] ALT [Catalytic activity/Vol] 18 U/L Normal <=46 [facility] Comment on above: Order Comment: Order Date: 09/17/24Order Info: [id number] - CMPOrder Info: [id number] - CRPOrder Info: [id number] - TSH Performed By: #### L 101.9900, L100.0100, L500.4050, L501.9520 ####[facility] [address] [place], [address] AST [Catalytic activity/Vol] 26 U/L Normal <=37 [facility] Comment on above: Order Comment: Order Date: 09/17/24Order Info: [id number] - CMPOrder Info: [id number] - CRPOrder Info: [id number] - TSH Performed By: #### L 101.9900, L100.0100, L500.4050, L501.9520 ####[facility] [address] [facility] [place], [address] Bilirubin [Mass/Vol] 0.36 mg/dL Normal 0.00-1.30 [facility] Comment on above: Order Comment: Order Date: 09/17/24Order Info: [id number] - CMPOrder Info: [id number] - CRPOrder Info: 301-3 - TSH Performed By: #### L 101.9900, L100.0100, L500.4050, L501.9520 ####[facility] [address] [facility] [place], [address] BUN/CRE 15.4 RATIO Normal 10-20 [facility] Comment on above: Order Comment: Order Date: 09/17/24Order Info: [id number] - CMPOrder Info: [id number] - CRPOrder Info: [id number] - TSH Performed By: #### L 101.9900, L100.0100, L500.4050, L501.9520 ####[facility] [address] [place], [address] Calcium [Mass/Vol] 9.3 mg/dL Normal 7.6-11.0 [facility] Comment on above: Order Comment: Order Date: 09/17/24Order Info: [id number] - CMPOrder Info: [id number] - CRPOrder Info: 3 - TSH Performed By: #### L 101.9900, L100.0100, L500.4050, L501.9520 ####[facility] [address] [place], [address] Chloride [Moles/Vol] 106 mmol/L Normal 98-108 [facility] Comment on above: Order Comment: Order Date: 09/17/24Order Info: [id number] - CMPOrder Info: [id number] - CRPOrder Info: 3 - TSH Performed By: #### L 101.9900, L100.0100, L500.4050, L501.9520 ####[facility] [address] [place], [address] CO2 [Moles/Vol] 20.5 mmol/L Low 21.0-32.0 [facility] Comment on above: Order Comment: Order Date: 09/17/24Order Info: 0786-1 - CMPOrder Info: [id number] - CRPOrder Info: 3 - TSH Performed By: #### L 101.9900, L100.0100, L500.4050, L501.9520 ####[facility] [address] [place], [address] Creatinine [Mass/Vol] 1.01 mg/dL Normal 0.70-1.20 [facility] Comment on above: Order Comment: Order Date: 09/17/24Order Info: [id number] - CMPOrder Info: [id number] - CRPOrder Info: 3 - TSH Performed By: #### L 101.9900, L100.0100, L500.4050, L501.9520 ####[facility] [address] [place], [address] GAP 12 Normal 5-15 [facility] Comment on above: Order Comment: Order Date: 09/17/24Order Info: [id number] - CMPOrder Info: [id number] - CRPOrder Info: [id number] - TSH Performed By: #### L 101.9900, L100.0100, L500.4050, L501.9520 ####[facility] [address] [place], [address] GFR/1.73 sq M.predicted among non-blacks MDRD (S/P/Bld) [Vol rate/Area] 77 mL/min/{1.73_m2} Normal >60 [facility] Comment on above: Order Comment: Order Date: 09/17/24Order Info: 0786- - CMPOrder Info: [id number] - CRPOrder Info: 3016-3 - TSH Result Comment: mL/m in/1.73m2 CKD-EPI Creatinine Equation (2020) Performed By: #### L 101.9900, L100.0100, L500.4050, L501.9520 ####[facility] [address] [place], [address] Globulin (S) [Mass/Vol] 3.6 g/dL Normal 2.2-4.2 [facility] Comment on above: Order Comment: Order Date: 09/17/24Order Info: 0786-1 - CMPOrder Info: [id number] - CRPOrder Info: [id number] - TSH Performed By: #### L 101.9900, L100.0100, L500.4050, L501.9520 ####[facility] [address] [place], [address] Glucose [Mass/Vol] 109 mg/dL High 70-99 [facility] Comment on above: Order Comment: Order Date: 09/17/24Order Info: [id number] - CMPOrder Info: [id number] - CRPOrder Info: 6-3 - TSH Performed By: #### L 101.9900, L100.0100, L500.4050, L501.9520 ####[facility] [address] [place], [address] Potassium [Moles/Vol] 4.0 mmol/L Normal 3.3-5.1 [facility] Comment on above: Order Comment: Order Date: 09/17/24Order Info: 0786-1 - CMPOrder Info: [id number] - CRPOrder Info: 6-3 - TSH Performed By: #### L 101.9900, L100.0100, L500.4050, L501.9520 ####[facility] [address] [place], [address] Sodium [Moles/Vol] 138 mmol/L Normal 133-145 [facility] Comment on above: Order Comment: Order Date: 09/17/24Order Info: 0786-1 - CMPOrder Info: [id number] - CRPOrder Info: [id number] - TSH Performed By: #### L 101.9900, L100.0100, L500.4050, L501.9520 ####[facility] [address] [place], [address] T PROT 7.3 g/dL Normal 5.9-8.4 [facility] Comment on above: Order Comment: Order Date: 09/17/24Order Info: [id number] - CMPOrder Info: [id number] - CRPOrder Info: [id number] - TSH Performed By: #### L 101.9900, L100.0100, L500.4050, L501.9520 ####[facility] [address] [place], [address] Urea nitrogen [Mass/Vol] 16 mg/dL Normal 4-19 [facility] Comment on above: Order Comment: Order Date: 09/17/24Order Info: 0786-1 - CMPOrder Info: [id number] - CRPOrder Info: [id number] - TSH Performed By: #### L 101.9900, L100.0100, L500.4050, L501.9520 ####[facility] [address] [place], [place], [id number] DNA double strand Ab Qn (S)O rdered By: Kelvin Han on 09-18-2024 Anti-Double Strand DNA Antibody TNP [facility] Comment on above: Test not performed Diagnostic total prostate sp ecific antigen (PSA) measurementOrdered By: Kelvin Han on 09-18-2024 Prostate Specific Antigen Total < 0.02 ng/mL 0.00-4.00 [facility] Comment on above: This test was [...] 09-18-2024 Eosinophils/100 WBC (Bld) 1.2 % 0-5 [facility] Erythrocyte Sed Rateon 09-18 SED RATE 25 mm/hr High 0-20 [facility] Comment on above: Order Comment: Order Date: 09/17/24Order Info: [id number] - CBCDOrder Info: [id number] - SED Performed By: #### L 101.9900, L100.0100, L500.4050, L501.9520 ####[facility] [address] [place], [address] Erythrocyte distribution wid th (RBC) [Ratio]Ordered By: Kelvin Han on 09-18-2024 Erythrocyte distribution width (RBC) [Entitic vol] 47.6 fL High 35.1-43.9 [facility] Erythrocyte distribution wid th ratioOrdered By: Kelvin Han on 09-18-2024 Erythrocyte distribution width (RBC) [Ratio] 15.5 % High 11.6-14.6 [facility] Erythrocyte distribution wid th standard deviationOrdered By: Kelvin Han on 09-18-2024 Erythrocyte distribution width (RBC) [Ratio] 47.6 fl High 35.1-43.9 [facility] Erythrocyte sedimentation ra teOrdered By: Kelvin Han on 09-18-2024 ESR (Bld) [Velocity] 25 mm/h High 0-20 [facility] GFR/1.73 sq M.predicted tobias g non-blacks MDRD (S/P/Bld) [Vol rate/Area]Ordered By: Kelvin Han on 09-18-2024 Estimated GFR (MDRD) Non-Af Amer 77 >60 [facility] Comment on above: mL/min/1.73m2 CKD-EP I Creatinine Equation (2020) Glomerular filtration rate ( GFR) estimation/1.73 sq m using serum, plasma, or whole bOrdered By: Kelvin Han on 09-18-2024 GFR/1.73 sq M.predicted among non-blacks MDRD (S/P/Bld) [Vol rate/Area] 77 mL/min/{1.73_m2} >60 [facility] Comment on above: mL/min/1.73m2 CKD-EP I Creatinine Equation (2020) Hematocrit Auto (Bld) [Volum e fraction]Ordered By: Kelvin Han on 09-18-2024 Hematocrit (Bld) [Volume fraction] 35.2 % Low 40-54 [facility] Hemoglobin measurementOrdere d By: Kelvin Han on 09-18-2024 Hemoglobin (Bld) [Mass/Vol] 11.9 g/dL Low 13.0-16.5 [facility] Immature granulocytes/100 WB C Auto (Bld)Ordered By: Kelvin Han on 09-18-2024 Immature granulocytes/100 WBC (Bld) 0.700 % 0.0-0.9 [facility] Comment on above: IG% - Immature Granu locytes (promyelocytes, myelocytes and metamyelocytes) > 1% indicates that a LEFT SHIFT is Present. Misty-1 antibody assayOrdered B y: Kelvin Han on 09-18-2024 MISTY-1 Antibody TNP [facility] Comment on above: Test not performed Laboratory - Chemistry and C hemistry - challengeOrdered By: Kelvin Han on 09-18-2024 AST [Catalytic activity/Vol] 26 U/L <38 [facility] Lymphocytes Auto (Unsp spec) [#/Vol]Ordered By: Kelvin Han on 09-18-2024 Lymphocytes (Bld) [#/Vol] 0.79 10*3/uL Low 0.83-4.51 [facility] Lymphocytes/100 WBC Auto (Un sp spec)Ordered By: Kelvin Han on 09-18-2024 Lymphocytes/100 WBC (Bld) 13.7 % Low 19-41 [facility] MCV (mean corpuscular volume ) determinationOrdered By: Kelvin Han on 09-18-2024 MCV (RBC) [Entitic vol] 84.4 fL 80-94 [facility] Mean corpuscular hemoglobin (MCH) determinationOrdered By: Kelvin Han on 09-18-2024 MCH (RBC) [Entitic mass] 28.5 pg 27.0-32.0 [facility] Mean corpuscular hemoglobin concentration (MCHC) determinationOrdered By: Kelvin Han on 09-18-2024 MCHC (RBC) [Mass/Vol] 33.8 g/dL 32-36 [facility] Mean platelet volume determi nationOrdered By: Kelvin Han on 09-18-2024 Platelet mean volume (Bld) [Entitic vol] 10.7 fL 6.2-12.0 [facility] Monocyte percentageOrdered B y: Kelvin Han on 09-18-2024 Monocytes/100 WBC (Bld) 8.7 % 0-10 [facility] Neutrophil percentageOrdered By: Kelvin Han on 09-18-2024 Neutrophils/100 WBC (Bld) 75.5 % High 47-70 [facility] No Panel InformationOrdered By: Kelvin Han on 09-18-2024 CELSA 8 Profile TNP [facility] Comment on above: Test not performed CELSA 8 Profile Comment . [facility] Comment on above: Autoantibody Disease Association [...] Ribosomal P SLE 10 - 20%Performed at: [address] [id number] Director: Basilio Ricci PhD, Phone: [phone] reported result: TNP Edited by: ARACELI on 09/25/24:1108 AMENDED REPORT 09/25/24 1108 COMMENT previously reported as: Test not performed Nucleated red blood cell per centageOrdered By: Kelvin Han on 09-18-2024 Nucleated RBC/100 WBC (Bld) [Ratio] 0 % 0-5 [facility] PSA,Total- Diagnosticon 09-04 PSA, DIAGNOSTIC < 0.02 Normal 0.00-4.00 [facility] Comment on above: Order Comment: Order Date: 09/17/24Order Info: 0786-1 - CMPOrder Info: [id number] - CRPOrder Info: [id number] - TSH Result [...] Performed By: #### L 3100.5430, L3100.5440, L501.9940 ####[facility] [address] [place], [address] Platelet countOrdered By: Itzel Han on 09-18-2024 Platelets (Bld) [#/Vol] 250 10*3/uL 150-450 [facility] Potassium (Unsp spec) [Mass/ Vol]Ordered By: Kelvin Han on 09-18-2024 Potassium [Moles/Vol] 4.0 mmol/L 3.3-5.1 [facility] Potassium measurement (mass/ volume)Ordered By: Kelvin Han on 09-18-2024 Potassium (Unsp spec) [Mass/Vol] 4.0 mmol/L 3.3-5.1 [facility] RBC Auto (Bld) [#/Vol]Ordere d By: Kelvin Han on 09-18-2024 RBC (Bld) [#/Vol] 4.17 10*6/uL Low 4.6-6.2 [facility] [employer] SUPERVISOR abOrdered By: Eduardo Han on 09-18-2024 MILK ROUTE SUPERVISOR Antibody TNP [facility] Comment on above: Test not performed Ribosomal P protein antibody assayOrdered By: Kelivn Han on 09-18-2024 Ribosomal P Protein Antibody TNP [facility] Comment on above: Test not performed Ribosomal P protein antibody assay 0.3 AI 0.0-0.9 [facility] Comment on above: Previous reported re sult: TNP AIEdited by: ARACELI on 09/25/24:1108 AMENDED REPORT 09/25/24 1108 Anti-P previously reported as: Test not performed SCL-70 extractable nuclear A b Qn (S)Ordered By: Kelvin Han on 09-18-2024 Scl-70 (Scleroderma) Antibody TNP [facility] Comment on above: Test not performed SS-A IgG antibody assayOrder ed By: Kelvin Han on 09-18-2024 SS-A/Ro IgG Antibody TNP [facility] Comment on above: Test not performed SS-B IgG antibody assayOrder ed By: Kelvin Han on 09-18-2024 SS-B/La IgG Antibody [facility] Comment on above: Test not performed Serum DNA double strand anti body assay (units/volume)Ordered By: Kelvin Han on 09-18-2024 DNA double strand Ab Qn (S) 3 [IU]/mL 0-9 [facility] Comment on above: Negative <5 Equivoca l 5 - 9 Positive >9Previous reported result: TNP IU/mLEdited by: ARACELI on 09/25/24:1108 AMENDED REPORT 09/25/24 1108 dsDNA AB previously reported as: Test not performed Serum Scl-70 antibody assay (units/volume)Ordered By: Kelvin Han on 09-18-2024 SCL-70 extractable nuclear Ab Qn (S) <0.2 AI 0.0-0.9 [facility] Comment on above: Previous reported re sult: TNP AIEdited by: ARACELI on 09/25/24:1108 AMENDED REPORT 09/25/24 1108 ANTISCLER previously reported as: Test not performed Serum creatinine measurement (mass/volume)Ordered By: Kelvin Han on 09-18-2024 Creatinine [Mass/Vol] 1.01 mg/dL 0.70-1.20 [facility] Serum globulin measurementOr dered By: Kelvin Han on 09-18-2024 Globulin (S) [Mass/Vol] 3.6 g/dL 2.2-4.2 [facility] Serum glucose measurement (m ass/volume)Ordered By: Kelvin Han on 09-18-2024 Glucose [Mass/Vol] 109 mg/dL High 70-99 [facility] Serum or plasma C reactive p rotein measurement (mass/volume)Ordered By: Kelvin Han on 09-18-2024 CRP [Mass/Vol] 3.99 mg/L High 0.0-3.0 [facility] Serum or plasma alanine morris otransferase (ALT) measurementOrdered By: Kelvin Han on 09-18-2024 ALT [Catalytic activity/Vol] 18 U/L <47 [facility] Serum or plasma albumin janusz urement (mass/volume)Ordered By: Kelvin Han on 09-18-2024 Albumin [Mass/Vol] 3.8 g/dL 3.4-4.8 [facility] Serum or plasma albumin/glob ulin mass ratioOrdered By: Kelvin Han on 09-18-2024 Albumin/Globulin [Mass ratio] 1.0 {ratio} 0.9-2.4 [facility] Serum or plasma alkaline trice sphatase measurementOrdered By: Kelvin Han on 09-18-2024 ALP [Catalytic activity/Vol] 81 U/L 40-129 [facility] Serum or plasma calcium janusz urement (mass/volume)Ordered By: Kelvin Han on 09-18-2024 Calcium [Mass/Vol] 9.3 mg/dL 7.6-11.0 [facility] Serum or plasma urea nitroge n measurement (mass/volume)Ordered By: Kelvin Han on 09-18-2024 Urea nitrogen [Mass/Vol] 16 mg/dL 4-19 [facility] Hodges antibody assayOrdered By: Kelvin Han on 09-18-2024 SM Antibody TNP [facility] Comment on above: Test not performed Sodium levelOrdered By: Panfilo Han on 09-18-2024 Sodium [Moles/Vol] 138 mmol/L 133-145 [facility] TSH DL <= 0.005 mIU/L QnOrde red By: Kelvin Han on 09-18-2024 Thyroid Stimulating Hormone (TSH) 1.440 uIU/mL 0.300-4.200 [facility] TSH Qn 1.440 uIU/mL 0.300-4.200 [facility] Thyroid Stim Hormone (TSH)on 09-18-2024 TSH 1.440 uIU/mL Normal 0.300-4.200 [facility] Comment on above: Order Comment: Order Date: 09/17/24Order Info: 0786-1 - CMPOrder Info: [id number] - CRPOrder Info: [id number] - TSH Performed By: #### L 101.9900, L100.0100, L500.4050, L501.9520 ####[facility] [address] [place], [place], [address] Total proteinOrdered By: Yamila lizzy Guille on 09-18-2024 Protein [Mass/Vol] 7.3 g/dL 5.9-8.4 [facility] White blood cell (WBC) count Ordered By: Kelvin Han on 09-18-2024 WBC (Bld) [#/Vol] 5.8 10*3/uL 4.4-11.0 [facility] CBC W/Diff, Automatedon 0 PATH REV N/A Normal [facility] Comment on above: Result Comment: AMENDED REPORT 09/09/24 180 PATH REV previously reported as: October deric Performed By: #### L 100.0100, L500.2500 ####[facility] [address] [place], [address] Basic Metabolic Profile (BMP )on 08-22-2024 BUN Normal - [facility] Comment on above: Result Comment: Canc elled via OM: Order cancelled - Patient discharged Performed By: #### L 100.0100, L500.2500 ####[facility] [address] [place], [address] BUN/CRE Normal - [facility] Comment on above: Result Comment: Canc elled via OM: Order cancelled - Patient discharged Performed By: #### L 100.0100, L500.2500 ####[facility] [address] [place], [address] Calcium Normal 7.6-11.0 [facility] Comment on above: Result Comment: Canc elled via OM: Order cancelled - Patient discharged Performed By: #### L 100.0100, L500.2500 ####[facility] [address] [place], [address] CL Normal 98-108 [facility] Comment on above: Result Comment: Canc elled via OM: Order cancelled - Patient discharged Performed By: #### L 100.0100, L500.2500 ####[facility] [address] [place], [address] CO2 Normal 21.0-32.0 [facility] Comment on above: Result Comment: Canc elled via OM: Order cancelled - Patient discharged Performed By: #### L 100.0100, L500.2500 ####[facility] [address] [place], [address] CREAT,SERUM Normal 0.70-1.20 [facility] Comment on above: Result Comment: Canc elled via OM: Order cancelled - Patient discharged Performed By: #### L 100.0100, L500.2500 ####[facility] [address] [place], [address] eGFR Normal >60 [facility] Comment on above: Result Comment: Canc elled via OM: Order cancelled - Patient discharged Performed By: #### L 100.0100, L500.2500 ####[facility] [address] [place], [address] GAP Normal 5-15 [facility] Comment on above: Result Comment: Canc elled via OM: Order cancelled - Patient discharged Performed By: #### L 100.0100, L500.2500 ####[facility] [address] [place], [address] GLU Normal 70-99 [facility] Comment on above: Result Comment: Canc elled via OM: Order cancelled - Patient discharged Performed By: #### L 100.0100, L500.2500 ####[facility] [address] [place], [address] Potassium Normal 3.3-5.1 [facility] Comment on above: Result Comment: Canc elled via OM: Order cancelled - Patient discharged Performed By: #### L 100.0100, L500.2500 ####[facility] [address] [place], [address] Basic Metabolic Profile (BMP) Normal 133-145 [facility] Comment on above: Result Comment: Canc elled via OM: Order cancelled - Patient discharged Performed By: #### L 100.0100, L500.2500 ####[facility] [address] [place], [address] CBC W/Diff, Automatedon 08-04 Absolute Neut Normal 2.0-7.7 [facility] Comment on above: Result Comment: Canc elled via OM: Order cancelled - Patient discharged Performed By: #### L 100.0100, L500.2500 ####[facility] [address] [place], [address] HCT Normal 40-54 [facility] Comment on above: Result Comment: Canc elled via OM: Order cancelled - Patient discharged Performed By: #### L 100.0100, L500.2500 ####[facility] [address] [place], [address] HGB Normal 13.0-16.5 [facility] Comment on above: Result Comment: Canc elled via OM: Order cancelled - Patient discharged Performed By: #### L 100.0100, L500.2500 ####[facility] [address] [place], [address] MCH Normal 27.0-32.0 [facility] Comment on above: Result Comment: Canc elled via OM: Order cancelled - Patient discharged Performed By: #### L 100.0100, L500.2500 ####[facility] [address] [place], [address] MCHC Normal 32-36 [facility] Comment on above: Result Comment: Canc elled via OM: Order cancelled - Patient discharged Performed By: #### L 100.0100, L500.2500 ####[facility] [address] [place], [address] MCV Normal 80-94 [facility] Comment on above: Result Comment: Canc elled via OM: Order cancelled - Patient discharged Performed By: #### L 100.0100, L500.2500 ####[facility] [address] [place], [address] NEUT% Normal 47-70 [facility] Comment on above: Result Comment: Canc elled via OM: Order cancelled - Patient discharged Performed By: #### L 100.0100, L500.2500 ####[facility] [address] [place], [address] PLT Normal 150-450 [facility] Comment on above: Result Comment: Canc elled via OM: Order cancelled - Patient discharged Performed By: #### L 100.0100, L500.2500 ####[facility] [address] [place], [address] RBC Normal 4.6-6.2 [facility] Comment on above: Result Comment: Canc elled via OM: Order cancelled - Patient discharged Performed By: #### L 100.0100, L500.2500 ####[facility] [address] [place], [address] RDW CV Normal 11.6-14.6 [facility] Comment on above: Result Comment: Canc elled via OM: Order cancelled - Patient discharged Performed By: #### L 100.0100, L500.2500 ####[facility] [address] [place], [address] RDW SD Normal 35.1-43.9 [facility] Comment on above: Result Comment: Canc elled via OM: Order cancelled - Patient discharged Performed By: #### L 100.0100, L500.2500 ####[facility] [address] [place], [address] WBC Normal 4.4-11.0 [facility] Comment on above: Result Comment: Canc elled via OM: Order cancelled - Patient discharged Performed By: #### L 100.0100, L500.2500 ####[facility] [address] [place], [address] Basic Metabolic Profile (BMP )on 08-21-2024 BUN Normal 4-19 [facility] Comment on above: Result Comment: Canc elled via OM: Order cancelled - Patient discharged Performed By: #### L 500.2500, L100.0100 ####[facility] [address] [place], [address] BUN/CRE Normal 10-20 [facility] Comment on above: Result Comment: Canc elled via OM: Order cancelled - Patient discharged Performed By: #### L 500.2500, L100.0100 ####[facility] [address] [place], [address] Calcium Normal 7.6-11.0 [facility] Comment on above: Result Comment: Canc elled via OM: Order cancelled - Patient discharged Performed By: #### L 500.2500, L100.0100 ####[facility] [address] [place], [address] CL Normal 98-108 [facility] Comment on above: Result Comment: Canc elled via OM: Order cancelled - Patient discharged Performed By: #### L 500.2500, L100.0100 ####[facility] [address] [place], [address] CO2 Normal 21.0-32.0 [facility] Comment on above: Result Comment: Canc elled via OM: Order cancelled - Patient discharged Performed By: #### L 500.2500, L100.0100 ####[facility] [address] [place], [address] CREAT,SERUM Normal 0.70-1.20 [facility] Comment on above: Result Comment: Canc elled via OM: Order cancelled - Patient discharged Performed By: #### L 500.2500, L100.0100 ####[facility] [address] [place], [address] eGFR Normal >60 [facility] Comment on above: Result Comment: Canc elled via OM: Order cancelled - Patient discharged Performed By: #### L 500.2500, L100.0100 ####[facility] [address] [place], [address] GAP Normal 5-15 [facility] Comment on above: Result Comment: Canc elled via OM: Order cancelled - Patient discharged Performed By: #### L 500.2500, L100.0100 ####[facility] [address] [place], [address] GLU Normal 70-99 [facility] Comment on above: Result Comment: Canc elled via OM: Order cancelled - Patient discharged Performed By: #### L 500.2500, L100.0100 ####[facility] [address] [place], [address] Potassium Normal 3.3-5.1 [facility] Comment on above: Result Comment: Canc elled via OM: Order cancelled - Patient discharged Performed By: #### L 500.2500, L100.0100 ####[facility] [address] [place], [address] Basic Metabolic Profile (BMP) Normal 133-145 [facility] Comment on above: Result Comment: Canc elled via OM: Order cancelled - Patient discharged Performed By: #### L 500.2500, L100.0100 ####[facility] [address] [place], [address] CBC W/Diff, Automatedon 03- Absolute Neut Normal 2.0-7.7 [facility] Comment on above: Result Comment: Canc elled via OM: Order cancelled - Patient discharged Performed By: #### L 500.2500, L100.0100 ####[facility] [address] [place], [address] HCT Normal 40-54 [facility] Comment on above: Result Comment: Canc elled via OM: Order cancelled - Patient discharged Performed By: #### L 500.2500, L100.0100 ####[facility] [address] [place], [address] HGB Normal 13.0-16.5 [facility] Comment on above: Result Comment: Canc elled via OM: Order cancelled - Patient discharged Performed By: #### L 500.2500, L100.0100 ####[facility] [address] [place], [address] MCH Normal 27.0-32.0 [facility] Comment on above: Result Comment: Canc elled via OM: Order cancelled - Patient discharged Performed By: #### L 500.2500, L100.0100 ####[facility] [address] [place], [address] MCHC Normal 32-36 [facility] Comment on above: Result Comment: Canc elled via OM: Order cancelled - Patient discharged Performed By: #### L 500.2500, L100.0100 ####[facility] [address] [place], [address] MCV Normal 80-94 [facility] Comment on above: Result Comment: Canc elled via OM: Order cancelled - Patient discharged Performed By: #### L 500.2500, L100.0100 ####[facility] [address] [place], [address] NEUT% Normal 47-70 [facility] Comment on above: Result Comment: Canc elled via OM: Order cancelled - Patient discharged Performed By: #### L 500.2500, L100.0100 ####[facility] [address] [place], [address] PLT Normal 150-450 [facility] Comment on above: Result Comment: Canc elled via OM: Order cancelled - Patient discharged Performed By: #### L 500.2500, L100.0100 ####[facility] [address] [place], [address] RBC Normal 4.6-6.2 [facility] Comment on above: Result Comment: Canc elled via OM: Order cancelled - Patient discharged Performed By: #### L 500.2500, L100.0100 ####[facility] [address] [place], [address] RDW CV Normal 11.6-14.6 [facility] Comment on above: Result Comment: Canc elled via OM: Order cancelled - Patient discharged Performed By: #### L 500.2500, L100.0100 ####[facility] [address] [place], [address] RDW SD Normal 35.1-43.9 [facility] Comment on above: Result Comment: Canc elled via OM: Order cancelled - Patient discharged Performed By: #### L 500.2500, L100.0100 ####[facility] [address] [place], [address] WBC Normal 4.4-11.0 [facility] Comment on above: Result Comment: Canc elled via OM: Order cancelled - Patient discharged Performed By: #### L 500.2500, L100.0100 ####[facility] [address] [place], [address] Absolute lymphocyte countOrd ered By: Juany Souza on 08-20-2024 Lymphocytes Auto (Unsp spec) [#/Vol] 0.88 10*3/uL 0.83-4.51 [facility] Absolute neutrophil countOrd ered By: Juany Souza on 08-20-2024 Neutrophils (Bld) [#/Vol] 5.9 10*3/uL 2.0-7.7 [facility] Anion gap in Serum or Plasma Ordered By: Juany Souza on 08-20-2024 Anion gap [Moles/Vol] 10 mmol/L 10-18 [facility] BUN/creatinine ratioOrdered By: Juany Souza on 08-20-2024 Urea nitrogen/Creatinine [Mass ratio] 10.0 mg/mg 03-25 [facility] Basic Metabolic Profile (BMP )on 08-20-2024 BUN/CRE 10.0 RATIO Normal 03-25 [facility] Comment on above: Performed By: #### L 100.0100, L500.2500 ####[facility] [address] [place], [address] Calcium [Mass/Vol] 8.4 mg/dL Normal 7.6-11.0 [facility] Comment on above: Performed By: #### L 100.0100, L500.2500 ####[facility] [address] [place], [address] Chloride [Moles/Vol] 107 mmol/L Normal 98-108 [facility] Comment on above: Performed By: #### L 100.0100, L500.2500 ####[facility] [address] [place], [address] CO2 [Moles/Vol] 20.6 mmol/L Low 21.0-32.0 [facility] Comment on above: Performed By: #### L 100.0100, L500.2500 ####[facility] [address] [place], [address] Creatinine [Mass/Vol] 1.18 mg/dL Normal 0.70-1.20 [facility] Comment on above: Performed By: #### L 100.0100, L500.2500 ####[facility] [address] [place], [address] ECRCL 59.31 ml/min Normal 50-250 [facility] Comment on above: Performed By: #### L 100.0100, L500.2500 ####[facility] [address] [place], [address] GAP 10 Normal 5-15 [facility] Comment on above: Performed By: #### L 100.0100, L500.2500 ####[facility] [address] [place], [address] GFR/1.73 sq M.predicted among non-blacks MDRD (S/P/Bld) [Vol rate/Area] 64 mL/min/{1.73_m2} Normal >60 [facility] Comment on above: Result Comment: mL/m in/1.73m2 CKD-EPI Creatinine Equation (2020) Performed By: #### L 100.0100, L500.2500 ####[facility] [address] [place], [address] Glucose [Mass/Vol] 98 mg/dL Normal 70-99 [facility] Comment on above: Performed By: #### L 100.0100, L500.2500 ####[facility] [address] [place], [address] Potassium [Moles/Vol] 3.9 mmol/L Normal 3.3-5.1 [facility] Comment on above: Performed By: #### L 100.0100, L500.2500 ####[facility] [address] [place], [address] Sodium [Moles/Vol] 137 mmol/L Normal 133-145 [facility] Comment on above: Performed By: #### L 100.0100, L500.2500 ####[facility] [address] [place], [place], [address] Urea nitrogen [Mass/Vol] 12 mg/dL Normal 4-19 [facility] Comment on above: Performed By: #### L 100.0100, L500.2500 ####[facility] [address] [place], [place], [address] Blood eosinophils/100 leukoc ytesOrdered By: Juany Souza on 08-20-2024 Eosinophils/100 WBC (Bld) 4 % 0-5 [facility] Blood lymphocytes/100 leukoc ytesOrdered By: Juany Souza on 08-20-2024 Lymphocytes/100 WBC (Bld) 11 % Low 19-41 [facility] Blood metamyelocytes/100 krystle kocytesOrdered By: Juany Souza on 08-20-2024 Metamyelocytes/100 WBC (Bld) 1 % 0-1 [facility] Blood monocytes/100 leukocyt esOrdered By: Juany Souza on 08-20-2024 Monocytes/100 WBC (Bld) 7 % 0-10 [facility] Blood promyelocytes/100 leuk ocytesOrdered By: Juany Souza on 08-20-2024 Promyelocytes/100 WBC (Bld) 1 % High 0-0 [facility] Blood segmented neutrophils/ 100 leukocytesOrdered By: Juany Souza on 08-20-2024 Segmented neutrophils/100 WBC (Bld) 73 % High 47-70 [facility] Carbon dioxide, total [Moles /volume] in Central venous bloodOrdered By: Juany Souza on 08-20-2024 CO2 [Moles/Vol] 20.6 mmol/L Low 21.0-32.0 [facility] Cells counted Molgen (Bld/Ti ss) [#]Ordered By: Juany Souza on 08-20-2024 Differential Total Cells Counted 100 MANUAL DIFF [facility] Chloride assayOrdered By: Ruben Souza on 08-20-2024 Chloride [Moles/Vol] 107 mmol/L 98-108 [facility] Culture, Blood (WB)on 2024 CUB Normal [facility] Comment on above: Performed By: #### M 200.1000, L300.4310, L503.6005, L300.3900 ####[facility] [address] [place], [address] Discharge Instructionon 08-04 Discharge Instruction Normal [facility] Electrocardiogram reportOrde red By: Ambika Espinosa on 08-20-2024 EKG study [facility] [address] [place] [address] 12 Lead EKG 08/14/242133 MR#: [id number] Acct: [id number] Name: BARBARA MILAN MONI Rep #:[id number] : 1945 78 From: Ambika giordano MD Attending Dr: Dr. Jameel Herrera MD Status: ADM IN Ordering Dr: Kishore Nicolas MD Date: 04/30 Location: [facility] Sex: M C Admitted: 08/14/24 Test Reason [...] normal ECG Confirmed by JACQUIE HOOK, NEHEMIAS ([id number]), editor department АНДРЕЙ GROSS ([id number]) on08/20/2024 11:19:46 AM Referred By: Confirmed By: NEHEMIAS ESPINOSA MD 08/20/24 1119 Date _ Ambika Espinosa MD CC: Dr. Kelvin Han MD; Dr. Kishore Nicolas MD; Dr. Jameel Herrera MD ~ Signed [facility] Other Phone: Erythrocyte distribution wid th ratioOrdered By: Juany Souza on 08-20-2024 Erythrocyte distribution width (RBC) [Ratio] 15.1 % High 11.6-14.6 [facility] Erythrocyte distribution wid th standard deviationOrdered By: Juany Souza on 08-20-2024 Erythrocyte distribution width (RBC) [Entitic vol] 46.3 fL High 35.1-43.9 [facility] Erythrocyte distribution width (RBC) [Ratio] 46.3 fl High 35.1-43.9 [facility] Estimation of creatinine ivelisse aranceOrdered By: Juany Souza on 08-20-2024 Estimated Creatinine Clearance Calc 59.31 ml/min 50-250 [facility] GFR/1.73 sq M.predicted tobias g non-blacks MDRD (S/P/Bld) [Vol rate/Area]Ordered By: Juany Souza on 08-20-2024 Estimated GFR (MDRD) Non-Af Amer 64 >60 [facility] Comment on above: mL/min/1.73m2 CKD-EP I Creatinine Equation (2020) Glomerular filtration rate ( GFR) estimation/1.73 sq m using serum, plasma, or whole bOrdered By: Juany Souza on 08-20-2024 GFR/1.73 sq M.predicted among non-blacks MDRD (S/P/Bld) [Vol rate/Area] 64 mL/min/{1.73_m2} >60 [facility] Comment on above: mL/min/1.73m2 CKD-EP I Creatinine Equation (2020) Hematocrit Auto (Bld) [Volum e fraction]Ordered By: Juany Souza on 08-20-2024 Hematocrit (Bld) [Volume fraction] 30.0 % Low 40-54 [facility] Hemoglobin measurementOrdere d By: Juany Souza on 08-20-2024 Hemoglobin (Bld) [Mass/Vol] 10.0 g/dL Low 13.0-16.5 [facility] Lymphocytes Auto (Unsp spec) [#/Vol]Ordered By: Juany Souza on 08-20-2024 Lymphocytes (Bld) [#/Vol] 0.88 10*3/uL 0.83-4.51 [facility] MCV (mean corpuscular volume ) determinationOrdered By: Juany Souza on 08-20-2024 MCV (RBC) [Entitic vol] 83.8 fL 80-94 [facility] Mean corpuscular hemoglobin (MCH) determinationOrdered By: Juany Souza on 08-20-2024 MCH (RBC) [Entitic mass] 27.9 pg 27.0-32.0 [facility] Mean corpuscular hemoglobin concentration (MCHC) determinationOrdered By: Juany Souza on 08-20-2024 MCHC (RBC) [Mass/Vol] 33.3 g/dL 32-36 [facility] Mean platelet volume determi nationOrdered By: Juany Souza on 08-20-2024 Platelet mean volume (Bld) [Entitic vol] 10.7 fL 6.2-12.0 [facility] Myelocyte %Ordered By: Juany Souza on 08-20-2024 Myelocytes/100 WBC (Bld) 3 % High 0-0 [facility] Neutrophil percentageOrdered By: Juany Souza on 08-20-2024 Neutrophils (%) (Auto) Not Reportable [facility] Pathologist review Kristian (Unsp spec) [Interp]Ordered By: Juany Souza on 08-20-2024 Differential Pathologist's Review Fidelina leos [facility] Differential Pathologist's Review N/A [facility] Comment on above: Previous reported re sult: Fidelina leos Edited by: KAYLA on 09/09/24:1801 AMENDED REPORT 09/09/24 1801 PATH REV previously reported as: Fidelina leos Platelet countOrdered By: Ruben Souza on 08-20-2024 Platelets (Bld) [#/Vol] 250 10*3/uL 150-450 [facility] Potassium (Unsp spec) [Mass/ Vol]Ordered By: Juany Souza on 08-20-2024 Potassium [Moles/Vol] 3.9 mmol/L 3.3-5.1 [facility] Potassium measurement (mass/ volume)Ordered By: Juany Souza on 08-20-2024 Potassium (Unsp spec) [Mass/Vol] 3.9 mmol/L 3.3-5.1 [facility] Promyelocytes/100 WBC (Bld)O rdered By: Juany Souza on 08-20-2024 Promyelocytes % 1 % High 0-0 [facility] RBC Auto (Bld) [#/Vol]Ordere d By: Juany Souza on 08-20-2024 RBC (Bld) [#/Vol] 3.58 10*6/uL Low 4.6-6.2 [facility] Review by pathologistOrdered By: Juany Souza on 08-20-2024 Pathologist review Kristian (Unsp spec) [Interp] N/A [facility] Comment on above: Previous reported re sult: Fidelina leos Edited by: KAYLA on 09/09/24:1800 AMENDED REPORT 09/09/241800 PATH REV previously reported as: Fidelina leos Segmented neutrophils/100 WB C (Bld)Ordered By: Juany Souza on 08-20-2024 Neutrophils/100 WBC (Bld) 73 % High 47-70 [facility] Serum creatinine measurement (mass/volume)Ordered By: Juany Souza on 08-20-2024 Creatinine [Mass/Vol] 1.18 mg/dL 0.70-1.20 [facility] Serum glucose measurement (m ass/volume)Ordered By: Juany Souza on 08-20-2024 Glucose [Mass/Vol] 98 mg/dL 70-99 [facility] Serum or plasma calcium janusz urement (mass/volume)Ordered By: Juany Souza on 08-20-2024 Calcium [Mass/Vol] 8.4 mg/dL 7.6-11.0 [facility] Serum or plasma urea nitroge n measurement (mass/volume)Ordered By: Juany Souza on 08-20-2024 Urea nitrogen [Mass/Vol] 12 mg/dL 4-19 [facility] Sodium levelOrdered By: Martín Souza on 08-20-2024 Sodium [Moles/Vol] 137 mmol/L 133-145 [facility] Total cell countOrdered By: Juany Souza on 08-20-2024 Cells counted Molgen (Bld/Tiss) [#] 100 MANUAL DIFF [facility] Urine Cultureon 08-20-2024 URC Normal [facility] Comment on above: Performed By: #### M 100.678, M100.2200 ####[facility] [address] [place], [address] White blood cell (WBC) count Ordered By: Juany Souza on 08-20-2024 WBC (Bld) [#/Vol] 8.0 10*3/uL 4.4-11.0 [facility] Basic Metabolic Profile (BMP )on 08-19-2024 BUN/CRE 11.6 RATIO Normal 10-20 [facility] Comment on above: Performed By: #### L 100.0100, L500.2500 ####[facility] [address] [place], [address] Calcium [Mass/Vol] 8.4 mg/dL Normal 7.6-11.0 [facility] Comment on above: Performed By: #### L 100.0100, L500.2500 ####[facility] [address] [place], [address] Chloride [Moles/Vol] 107 mmol/L Normal 98-108 [facility] Comment on above: Performed By: #### L 100.0100, L500.2500 ####[facility] [address] [place], [address] CO2 [Moles/Vol] 17.2 mmol/L Low 21.0-32.0 [facility] Comment on above: Performed By: #### L 100.0100, L500.2500 ####[facility] [address] [place], [address] Creatinine [Mass/Vol] 1.18 mg/dL Normal 0.70-1.20 [facility] Comment on above: Performed By: #### L 100.0100, L500.2500 ####[facility] [address] [place], [address] ECRCL 59.31 ml/min Normal 50-250 [facility] Comment on above: Performed By: #### L 100.0100, L500.2500 ####[facility] [address] [place], [address] GAP 12 Normal 5-15 [facility] Comment on above: Performed By: #### L 100.0100, L500.2500 ####[facility] [address] [place], [address] GFR/1.73 sq M.predicted among non-blacks MDRD (S/P/Bld) [Vol rate/Area] 64 mL/min/{1.73_m2} Normal >60 [facility] Comment on above: Result Comment: mL/m in/1.73m2 CKD-EPI Creatinine Equation (2020) Performed By: #### L 100.0100, L500.2500 ####[facility] [address] [place], [address] Glucose [Mass/Vol] 103 mg/dL High 70-99 [facility] Comment on above: Performed By: #### L 100.0100, L500.2500 ####[facility] [address] [place], [address] Potassium [Moles/Vol] 3.9 mmol/L Normal 3.3-5.1 [facility] Comment on above: Performed By: #### L 100.0100, L500.2500 ####[facility] [address] [place], [address] Sodium [Moles/Vol] 136 mmol/L Normal 133-145 [facility] Comment on above: Performed By: #### L 100.0100, L500.2500 ####[facility] [address] [place], [address] Urea nitrogen [Mass/Vol] 14 mg/dL Normal 4-19 [facility] Comment on above: Performed By: #### L 100.0100, L500.2500 ####[facility] [address] [place], [address] Blood schistocyte detection by light microscopyOrdered By: Juany Souza on 08-19-2024 Schistocytes LM Ql (Bld) RARE [facility] C. difficile DNA MARYJANE+probe Q l (Unsp spec)Ordered By: Juany Souza on 08-19-2024 Clostridioides difficile (PCR) [facility] CDIFF (PCR)on 08-19-2024 CDIFF Is the patient receiving laxatives? N New/unexplained onset of 3 or more stools in past 24 hrs? Y Pending 027 027 NAP1-B1 Presumptive Negative *for epidemiolologic???us e C. Diff PCR Negative- No toxigenic C. Diff Detected Normal [facility] Comment on above: Performed By: #### M 100.6796, M100.637 ####[facility] [address] [place], [place], [id number] Clostridium difficile detect ion by polymerase chain reactionOrdered By: Juany Souza on 08-19-2024 C. difficile DNA MARYJANE+probe Ql (Unsp spec) [facility] ENTERIC PATHOGEN PANEL STOOL on 08-19-2024 EP PANEL Normal [facility] Comment on above: Performed By: #### M 1006796, M100.637 ####[facility] [address] [facility] [place], [place], [id number] Microcytosis evaluation pane lOrdered By: Juany Souza on 08-19-2024 Microcytosis 1+ [facility] Ovalocyte detectionOrdered B y: Juany Souza on 08-19-2024 Ovalocytes LM Ql (Bld) 2+ [facility] Ovalocytes LM Ql (Bld)Ordere d By: Juany Souza on 08-19-2024 Ovalocytes 2+ [facility] Platelet estimateOrdered By: Juany Souza on 08-19-2024 Platelets LM Ql (Bld) ADEQUATE ADEQ [facility] Platelets LM Ql (Bld)Ordered By: Juany Souza on 08-19-2024 Platelet Estimate ADEQUATE [facility]Q [facility] Schistocytes LM Ql (Bld)Orde red By: Juany Souza on 08-19-2024 Schistocytes RARE [facility] Stool enteric pathogen panel by probe and target amplification methodOrdered By: Juany Souza on 08-19-2024 Enteric Bacteriology [facility] Automated lymphocyte count a s percentage of total leukocytesOrdered By: Juany Souza on 08-18-2024 Lymphocytes/100 WBC Auto (Unsp spec) 8.2 % Low 19-41 [facility] Basic Metabolic Profile (BMP )on 08-18-2024 BUN/CRE 12.2 RATIO Normal 10-20 [facility] Comment on above: Performed By: #### L 500.2500, L100.0100 ####[facility] [address] [place], [address] Calcium [Mass/Vol] 8.1 mg/dL Normal 7.6-11.0 [facility] Comment on above: Performed By: #### L 500.2500, L100.0100 ####[facility] [address] [place], [address] Chloride [Moles/Vol] 108 mmol/L Normal 98-108 [facility] Comment on above: Performed By: #### L 500.2500, L100.0100 ####[facility] [address] [place], [address] CO2 [Moles/Vol] 17.9 mmol/L Low 21.0-32.0 [facility] Comment on above: Performed By: #### L 500.2500, L100.0100 ####[facility] [address] [place], [address] Creatinine [Mass/Vol] 1.23 mg/dL High 0.70-1.20 [facility] Comment on above: Performed By: #### L 500.2500, L100.0100 ####[facility] [address] [place], [address] ECRCL 56.87 ml/min Normal 50-250 [facility] Comment on above: Performed By: #### L 500.2500, L100.0100 ####[facility] [address] [place], [address] GAP 11 Normal 5-15 [facility] Comment on above: Performed By: #### L 500.2500, L100.0100 ####[facility] [address] [place], [address] GFR/1.73 sq M.predicted among non-blacks MDRD (S/P/Bld) [Vol rate/Area] 61 mL/min/{1.73_m2} Normal >60 [facility] Comment on above: Result Comment: mL/m in/1.73m2 CKD-EPI Creatinine Equation (2020) Performed By: #### L 500.2500, L100.0100 ####[facility] [address] [place], [address] Glucose [Mass/Vol] 102 mg/dL High 70-99 [facility] Comment on above: Performed By: #### L 500.2500, L100.0100 ####[facility] [address] [place], [address] Potassium [Moles/Vol] 4.1 mmol/L Normal 3.3-5.1 [facility] Comment on above: Performed By: #### L 500.2500, L100.0100 ####[facility] [address] [place], [address] Sodium [Moles/Vol] 137 mmol/L Normal 133-145 [facility] Comment on above: Performed By: #### L 500.2500, L100.0100 ####[facility] [address] [place], [address] Urea nitrogen [Mass/Vol] 15 mg/dL Normal 4-19 [facility] Comment on above: Performed By: #### L 500.2500, L100.0100 ####[facility] [address] [place], [address] Basophil percentageOrdered B y: Juanyjose Souza on 08-18-2024 Basophils/100 WBC (Bld) 0.3 % 0-1 [facility] CBC W/Diff, Automatedon 08-04 Absolute Lymph 0.78 X10 3/uL Low 0.83-4.51 [facility] Comment on above: Performed By: #### L 500.2500, L100.0100 ####[facility] [address] [place], [address] Absolute Neut 7.6 X10 3/uL Normal 2.0-7.7 [facility] Comment on above: Performed By: #### L 500.2500, L100.0100 ####[facility] [address] [place], [address] Basophils/100 WBC (Bld) 0.3 % Normal 0-1 [facility] Comment on above: Performed By: #### L 500.2500, L100.0100 ####[facility] [address] [place], [address] Eosinophils/100 WBC (Bld) 3.4 % Normal 0-5 [facility] Comment on above: Performed By: #### L 500.2500, L100.0100 ####[facility] [address] [place], [address] Erythrocyte distribution width (RBC) [Ratio] 15.4 % High 11.6-14.6 [facility] Comment on above: Performed By: #### L 500.2500, L100.0100 ####[facility] [address] [place], [address] Hematocrit (Bld) [Volume fraction] 27.9 % Low 40-54 [facility] Comment on above: Performed By: #### L 500.2500, L100.0100 ####[facility] [address] [place], [address] Hemoglobin (Bld) [Mass/Vol] 9.5 g/dL Low 13.0-16.5 [facility] Comment on above: Performed By: #### L 500.2500, L100.0100 ####[facility] [address] [place], [address] IG% 1.100 High 0.0-0.9 [facility] Comment on above: Result Comment: IG% - Immature Granulocytes (promyelocytes, myelocytes andmetamyelocytes) > 1% indicates that a LEFT SHIFT is Present. Performed By: #### L 500.2500, L100.0100 ####[facility] [address] [place], [address] Lymphocytes/100 WBC (Bld) 8.2 % Low 19-41 [facility] Comment on above: Performed By: #### L 500.2500, L100.0100 ####[facility] [address] [place], [address] MCH (RBC) [Entitic mass] 28.4 pg Normal 27.0-32.0 [facility] Comment on above: Performed By: #### L 500.2500, L100.0100 ####[facility] [address] [place], [address] MCHC (RBC) [Mass/Vol] 34.1 g/dL Normal 32-36 [facility] Comment on above: Performed By: #### L 500.2500, L100.0100 ####[facility] [address] [place], [address] MCV (RBC) [Entitic vol] 83.3 fL Normal 80-94 [facility] Comment on above: Performed By: #### L 500.2500, L100.0100 ####[facility] [address] [place], [address] Monocytes/100 WBC (Bld) 7.1 % Normal 0-10 [facility] Comment on above: Performed By: #### L 500.2500, L100.0100 ####[facility] [address] [place], [address] Neutrophils/100 WBC (Bld) 79.9 % High 47-70 [facility] Comment on above: Performed By: #### L 500.2500, L100.0100 ####[facility] [address] [place], [address] Nucleated RBC (Bld) [#/Vol] 0 10*3/uL Normal 0-5 [facility] Comment on above: Performed By: #### L 500.2500, L100.0100 ####[facility] [address] [place], [address] Platelet mean volume (Bld) [Entitic vol] 10.7 fL Normal 6.2-12.0 [facility] Comment on above: Performed By: #### L 500.2500, L100.0100 ####[facility] [address] [place], [address] Platelets (Bld) [#/Vol] 207 10*3/uL Normal 150-450 [facility] Comment on above: Performed By: #### L 500.2500, L100.0100 ####[facility] [address] [place], [address] RBC (Bld) [#/Vol] 3.35 10*6/uL Low 4.6-6.2 [facility] Comment on above: Performed By: #### L 500.2500, L100.0100 ####[facility] [address] [place], [address] RDW SD 47.0 fl High 35.1-43.9 [facility] Comment on above: Performed By: #### L 500.2500, L100.0100 ####[facility] [address] [place], [address] WBC (Bld) [#/Vol] 9.5 10*3/uL Normal 4.4-11.0 [facility] Comment on above: Performed By: #### L 500.2500, L100.0100 ####[facility] [address] [place], [address] Eosinophil percentageOrdered By: Juany Souza on 08-18-2024 Eosinophils/100 WBC (Bld) 3.4 % 0-5 [facility] Immature granulocytes/100 WB C Auto (Bld)Ordered By: Juany Souza on 08-18-2024 Immature granulocytes/100 WBC (Bld) 1.100 % High 0.0-0.9 [facility] Comment on above: IG% - Immature Granu locytes (promyelocytes, myelocytes and metamyelocytes) > 1% indicates that a LEFT SHIFT is Present. Lymphocytes/100 WBC Auto (Un sp spec)Ordered By: Juany Souza on 08-18-2024 Lymphocytes/100 WBC (Bld) 8.2 % Low 19-41 [facility] Monocyte percentageOrdered B y: Juany Souza on 08-18-2024 Monocytes/100 WBC (Bld) 7.1 % 0-10 [facility] Nucleated red blood cell per centageOrdered By: Juany Souza on 08-18-2024 Nucleated RBC/100 WBC (Bld) [Ratio] 0 % 0-5 [facility] Basic Metabolic Profile (BMP )on 08-17-2024 BUN/CRE 16.3 RATIO Normal 10-20 [facility] Comment on above: Performed By: #### L 500.2500, L100.0100 ####[facility] [address] [place], [address] Calcium [Mass/Vol] 7.9 mg/dL Normal 7.6-11.0 [facility] Comment on above: Performed By: #### L 500.2500, L100.0100 ####[facility] [address] [place], [address] Chloride [Moles/Vol] 109 mmol/L High 98-108 [facility] Comment on above: Performed By: #### L 500.2500, L100.0100 ####[facility] [address] [place], [address] CO2 [Moles/Vol] 16.9 mmol/L Low 21.0-32.0 [facility] Comment on above: Performed By: #### L 500.2500, L100.0100 ####[facility] [address] [place], [address] Creatinine [Mass/Vol] 1.46 mg/dL High 0.70-1.20 [facility] Comment on above: Performed By: #### L 500.2500, L100.0100 ####[facility] [address] [place], [address] ECRCL 48.18 ml/min Low 50-250 [facility] Comment on above: Performed By: #### L 500.2500, L100.0100 ####[facility] [address] [place], [address] GAP 10 Normal 5-15 [facility] Comment on above: Performed By: #### L 500.2500, L100.0100 ####[facility] [address] [place], [address] GFR/1.73 sq M.predicted among non-blacks MDRD (S/P/Bld) [Vol rate/Area] 50 mL/min/{1.73_m2} Low >60 [facility] Comment on above: Result Comment: mL/m in/1.73m2 CKD-EPI Creatinine Equation (2020) Performed By: #### L 500.2500, L100.0100 ####[facility] [address] [place], [address] Glucose [Mass/Vol] 108 mg/dL High 70-99 [facility] Comment on above: Performed By: #### L 500.2500, L100.0100 ####[facility] [address] [place], [address] Potassium [Moles/Vol] 3.8 mmol/L Normal 3.3-5.1 [facility] Comment on above: Performed By: #### L 500.2500, L100.0100 ####[facility] [address] [place], [address] Sodium [Moles/Vol] 137 mmol/L Normal 133-145 [facility] Comment on above: Performed By: #### L 500.2500, L100.0100 ####[facility] [address] [place], [address] Urea nitrogen [Mass/Vol] 24 mg/dL High 4-19 [facility] Comment on above: Performed By: #### L 500.2500, L100.0100 ####[facility] [address] [place], [address] CBC W/Diff, Automatedon 08-04 Absolute Lymph 0.57 X10 3/uL Low 0.83-4.51 [facility] Comment on above: Performed By: #### L 500.2500, L100.0100 ####[facility] [address] [place], [address] Absolute Neut 11.0 X10 3/uL High 2.0-7.7 [facility] Comment on above: Performed By: #### L 500.2500, L100.0100 ####[facility] [address] [place], [address] Basophils/100 WBC (Bld) 0.4 % Normal 0-1 [facility] Comment on above: Performed By: #### L 500.2500, L100.0100 ####[facility] [address] [place], [address] Eosinophils/100 WBC (Bld) 3.9 % Normal 0-5 [facility] Comment on above: Performed By: #### L 500.2500, L100.0100 ####[facility] [address] [place], [address] Erythrocyte distribution width (RBC) [Ratio] 15.2 % High 11.6-14.6 [facility] Comment on above: Performed By: #### L 500.2500, L100.0100 ####[facility] [address] [place], [address] Hematocrit (Bld) [Volume fraction] 28.8 % Low 40-54 [facility] Comment on above: Performed By: #### L 500.2500, L100.0100 ####[facility] [address] [place], [address] Hemoglobin (Bld) [Mass/Vol] 9.5 g/dL Low 13.0-16.5 [facility] Comment on above: Performed By: #### L 500.2500, L100.0100 ####[facility] [address] [place], [address] IG% 1.500 High 0.0-0.9 [facility] Comment on above: Result Comment: IG% - Immature Granulocytes (promyelocytes, myelocytes andmetamyelocytes) > 1% indicates that a LEFT SHIFT is Present. Performed By: #### L 500.2500, L100.0100 ####[facility] [address] [place], [address] Lymphocytes/100 WBC (Bld) 4.4 % Low 19-41 [facility] Comment on above: Performed By: #### L 500.2500, L100.0100 ####[facility] [address] [place], [address] MCH (RBC) [Entitic mass] 28.1 pg Normal 27.0-32.0 [facility] Comment on above: Performed By: #### L 500.2500, L100.0100 ####[facility] [address] [place], [address] MCHC (RBC) [Mass/Vol] 33.0 g/dL Normal 32-36 [facility] Comment on above: Performed By: #### L 500.2500, L100.0100 ####[facility] [address] [place], [address] MCV (RBC) [Entitic vol] 85.2 fL Normal 80-94 [facility] Comment on above: Performed By: #### L 500.2500, L100.0100 ####[facility] [address] [place], [address] Monocytes/100 WBC (Bld) 5.8 % Normal 0-10 [facility] Comment on above: Performed By: #### L 500.2500, L100.0100 ####[facility] [address] [place], [address] Neutrophils/100 WBC (Bld) 84.0 % High 47-70 [facility] Comment on above: Performed By: #### L 500.2500, L100.0100 ####[facility] [address] [place], [address] Nucleated RBC (Bld) [#/Vol] 0 10*3/uL Normal 0-5 [facility] Comment on above: Performed By: #### L 500.2500, L100.0100 ####[facility] [address] [place], [address] Platelet mean volume (Bld) [Entitic vol] 10.8 fL Normal 6.2-12.0 [facility] Comment on above: Performed By: #### L 500.2500, L100.0100 ####[facility] [address] [place], [address] Platelets (Bld) [#/Vol] 181 10*3/uL Normal 150-450 [facility] Comment on above: Performed By: #### L 500.2500, L100.0100 ####[facility] [address] [place], [address] RBC (Bld) [#/Vol] 3.38 10*6/uL Low 4.6-6.2 [facility] Comment on above: Performed By: #### L 500.2500, L100.0100 ####[facility] [address] [place], [address] RDW SD 47.2 fl High 35.1-43.9 [facility] Comment on above: Performed By: #### L 500.2500, L100.0100 ####[facility] [address] [place], [address] WBC (Bld) [#/Vol] 13.0 10*3/uL High 4.4-11.0 [facility] Comment on above: Performed By: #### L 500.2500, L100.0100 ####[facility] [address] [place], [address] Consultation - Infectious Dx on 08-17-2024 Consultation - Infectious Dx Normal [facility] Basic Metabolic Profile (BMP )on 08-16-2024 BUN/CRE 17.4 RATIO Normal 10-20 [facility] Comment on above: Performed By: #### L 100.0100, L500.2500 ####[facility] [address] [place], [address] Calcium [Mass/Vol] 7.7 mg/dL Normal 7.6-11.0 [facility] Comment on above: Performed By: #### L 100.0100, L500.2500 ####[facility] [address] [place], [address] Chloride [Moles/Vol] 108 mmol/L Normal 98-108 [facility] Comment on above: Performed By: #### L 100.0100, L500.2500 ####[facility] [address] [place], [address] CO2 [Moles/Vol] 16.2 mmol/L Low 21.0-32.0 [facility] Comment on above: Performed By: #### L 100.0100, L500.2500 ####[facility] [address] [place], [address] Creatinine [Mass/Vol] 1.80 mg/dL High 0.70-1.20 [facility] Comment on above: Performed By: #### L 100.0100, L500.2500 ####[facility] [address] [place], [address] ECRCL 39.08 ml/min Low 50-250 [facility] Comment on above: Performed By: #### L 100.0100, L500.2500 ####[facility] [address] [place], [address] GAP 12 Normal 5-15 [facility] Comment on above: Performed By: #### L 100.0100, L500.2500 ####[facility] [address] [place], [address] GFR/1.73 sq M.predicted among non-blacks MDRD (S/P/Bld) [Vol rate/Area] 39 mL/min/{1.73_m2} Low >60 [facility] Comment on above: Result Comment: mL/m in/1.73m2 CKD-EPI Creatinine Equation (2020) Performed By: #### L 100.0100, L500.2500 ####[facility] [address] [place], [address] Glucose [Mass/Vol] 89 mg/dL Normal 70-99 [facility] Comment on above: Performed By: #### L 100.0100, L500.2500 ####[facility] [address] [place], [address] Potassium [Moles/Vol] 4.1 mmol/L Normal 3.3-5.1 [facility] Comment on above: Performed By: #### L 100.0100, L500.2500 ####[facility] [address] [place], [address] Sodium [Moles/Vol] 137 mmol/L Normal 133-145 [facility] Comment on above: Performed By: #### L 100.0100, L500.2500 ####[facility] [address] [place], [address] Urea nitrogen [Mass/Vol] 31 mg/dL High 4-19 [facility] Comment on above: Performed By: #### L 100.0100, L500.2500 ####[facility] [address] [place], [address] Blood manual differential co mment interpretation (narrative result)Ordered By: Juany Souza on 08-16-2024 Manual differential comment Kristian (Bld) [Interp] See comment [facility] Comment on above: BANDS NOTED Blood vacuolated neutrophils detection by light microscopyOrdered By: Juany Souza on 08-16-2024 Neutrophils.vacuolated LM Ql (Bld) 2+ [facility] CBC W/Diff, Automatedon 08-04 PLT EST ADEQUATE Normal ADEQ [facility] Comment on above: Performed By: #### L 100.0100, L500.2500 ####[facility] [address] [place], [address] RED CELL MORPH NORM C+C Normal NORM C C [facility] Comment on above: Performed By: #### L 100.0100, L500.2500 ####[facility] [address] [place], [address] SMEAR COMMENT Normal [facility] Comment on above: Result Comment: BAND S NOTED Performed By: #### L 100.0100, L500.2500 ####[facility] [address] [place], [address] VACUOLATE CELLS 2+ Normal [facility] Comment on above: Performed By: #### L 100.0100, L500.2500 ####[facility] [address] [place], [address] Erythrocyte morphology asses smentOrdered By: Juany Souza on 08-16-2024 RBC morphology finding Nom (Bld) NORM C+C NORMAL NORM C&C [facility] Manual differential comment Kristian (Bld) [Interp]Ordered By: Juany Souza on 08-16-2024 Differential Comment See comment [facility] Comment on above: BANDS NOTED Neutrophils.vacuolated LM Ql (Bld)Ordered By: Juany Souza on 08-16-2024 Toxic Vacuolation 2+ [facility] RBC morphology finding Nom ( Bld)Ordered By: Juany Souza on 08-16-2024 Red Blood Cell Morphology NORM C+C NORMAL NORM C&C [facility] Basic Metabolic Profile (BMP )on 08-15-2024 BUN/CRE 16.1 RATIO Normal 10-20 [facility] Comment on above: Performed By: #### L 500.2500, L100.0100 ####[facility] [address] [place], [address] Calcium [Mass/Vol] 7.4 mg/dL Low 7.6-11.0 [facility] Comment on above: Performed By: #### L 500.2500, L100.0100 ####[facility] [address] [place], [address] Chloride [Moles/Vol] 110 mmol/L High 98-108 [facility] Comment on above: Performed By: #### L 500.2500, L100.0100 ####[facility] [address] [place], [address] CO2 [Moles/Vol] 16.2 mmol/L Low 21.0-32.0 [facility] Comment on above: Performed By: #### L 500.2500, L100.0100 ####[facility] [address] [place], [address] Creatinine [Mass/Vol] 1.98 mg/dL High 0.70-1.20 [facility] Comment on above: Performed By: #### L 500.2500, L100.0100 ####[facility] [address] [place], [address] ECRCL 35.03 ml/min Low 50-250 [facility] Comment on above: Performed By: #### L 500.2500, L100.0100 ####[facility] [address] [place], [address] GAP 13 Normal 5-15 [facility] Comment on above: Performed By: #### L 500.2500, L100.0100 ####[facility] [address] [place], [address] GFR/1.73 sq M.predicted among non-blacks MDRD (S/P/Bld) [Vol rate/Area] 34 mL/min/{1.73_m2} Low >60 [facility] Comment on above: Result Comment: mL/m in/1.73m2 CKD-EPI Creatinine Equation (2020) Performed By: #### L 500.2500, L100.0100 ####[facility] [address] [place], [address] Glucose [Mass/Vol] 130 mg/dL High 70-99 [facility] Comment on above: Performed By: #### L 500.2500, L100.0100 ####[facility] [address] [place], [address] Potassium [Moles/Vol] 4.6 mmol/L Normal 3.3-5.1 [facility] Comment on above: Performed By: #### L 500.2500, L100.0100 ####[facility] [address] [place], [address] Sodium [Moles/Vol] 139 mmol/L Normal 133-145 [facility] Comment on above: Performed By: #### L 500.2500, L100.0100 ####[facility] [address] [place], [address] Urea nitrogen [Mass/Vol] 32 mg/dL High 4-19 [facility] Comment on above: Performed By: #### L 500.2500, L100.0100 ####[facility] [address] [place], [address] CBC W/Diff, Automatedon 08-04 SMEAR COMMENT Normal [facility] Comment on above: Result Comment: BAND S NOTED Performed By: #### L 500.2500, L100.0100 ####[facility] [address] [place], [address] Consultation - Intensiviston 08-15-2024 Consultation - Graphic Designer Normal [facility] Consultation - Urologyon Consultation - Urology Normal [facility] FOLATES,SERUM (FOLIC ACID)on 08-15-2024 FOLATES,SERUM 18.20 ng/mL Normal 4.60-34.80 [facility] Comment on above: Result Comment: Hemo lysis, Results will be affected, Requires Recollection. Performed By: #### L 501.9985, L501.9520, L506.0200 ####[facility] [address] [place], [address] Hemoglobin A1con 08-15-2024 HbA1c (Bld) [Mass fraction] 6.3 % Normal <=5.6 [facility] Comment on above: Performed By: #### L 501.9985, L501.9520, L506.0200 ####[facility] [address] [place], [address] L503.0106on 08-15-2024 Cobalamin (Vitamin B12) [Mass/Vol] 1133 pg/mL High 180-914 [facility] Comment on above: Order Comment: *ADD- ON* Performed By: #### L 503.0106 ####[facility] [address] [place], [place], [id number] Lactic Acidon 08-15-2024 Lactate [Moles/Vol] 3.5 mmol/L Invalid Interpretation Code 0.0-2.0 [facility] Comment on above: Order Comment: Y Result Comment: Crit ical Result(s) Called at 0822: by:JOSE DORAN.??Results read back by same. Performed By: #### L 503.6005 ####[facility] [address] [place], [place], [id number] Lactic acid measurementOrder ed By: Rajinder Iyer on 08-15-2024 Lactate [Moles/Vol] 3.5 mmol/L High 0.0-2.0 [facility] Comment on above: Critical Result(s) C alled at 0822: by:JOSE RODRIGUEZ. Results read back by same. Operative Reporton Operative Report Normal [facility] PSA, total screeningOrdered By: Rajinder Iyer on 08-15-2024 Prostate Specific Antigen Screen < 0.02 ng/mL Low 0.02-4.00 [facility] Comment on above: This test was [...] 08-15-2024 PSA,TOT SCREEN < 0.02 Low 0.02-4.00 [facility] Comment on above: Result Comment: This test was performed using the [employer] tPSAmethod. Measured values of a patient??sample can varydepending on the testing procedure used. PSA valuesdetermined on patient samples by different testingprocedures cannot be used interchangeably. If there is achange in PSA assays while monitoring therapy, sequentialtesting should be performed to confirm baseline values. Performed By: #### L 501.9910 ####[facility] [address] [place], [place], [address] Thyroid Stim Hormone (TSH)on 08-15-2024 TSH 3.660 uIU/mL Normal 0.300-4.200 [facility] Comment on above: Performed By: #### L 501.9985, L501.9520, L506.0200 ####[facility] [address] [place], [place], [id number] 12 Lead EKGon 08-14-2024 12 Lead EKG Normal [facility] Abdomen/Pelvis without Conto n 08-14-2024 Abdomen/Pelvis without Cont Normal [facility] Absolute neutrophil countOrd ered By: ED PROVIDER on 08-14-2024 Neutrophils (Bld) [#/Vol] 1.5 10*3/uL Low 2.0-7.7 [facility] Activated partial thrombopla stin time (aPTT) in platelet poor plasma by coagulation aOrdered By: Kishore Nicolas on 08-14-2024 aPTT Coag (PPP) [Time] 26.3 s 24.1-36.2 [facility] Amorphous sediment detection in urine sediment by light microscopyOrdered By: Kishore Nicolas on 08-14-2024 Amorphous sediment LM Ql (Urine sed) 2+ PHOS [facility] Anion gap in Serum or Plasma Ordered By: ED PROVIDER on 08-14-2024 Anion gap [Moles/Vol] 17 mmol/L High 5-15 [facility] BUN/creatinine ratioOrdered By: ED PROVIDER on 08-14-2024 Urea nitrogen/Creatinine [Mass ratio] 18.2 mg/mg 10-20 [facility] Bacteria LM.HPF (Urine sed) [#/Area]Ordered By: Kishore Nicolas on 08-14-2024 Urine Bacteria RARE /hpf None Seen [facility] Basophil percentageOrdered B y: ED PROVIDER on 08-14-2024 Basophils/100 WBC (Bld) 0.5 % 0-1 [facility] Bilirubin Test strip Ql (U)O rdered By: Kishore Nicolas on 08-14-2024 Bilirubin Ql (U) Negative Negative [facility] Bilirubin, totalOrdered By: ED PROVIDER on 08-14-2024 Bilirubin [Mass/Vol] 0.25 mg/dL 0.00-1.30 [facility] Blood cultureOrdered By: Gio Nicolas on 08-14-2024 Bacteria identified Cx Nom (Bld) Negative Abnormal [facility] Bacteria identified Cx Nom (Bld) Providencia rettgeri Abnormal [facility] CBC W/Diff, Automatedon 08-04 Anisocytosis Ql (Bld) RARE Normal [facility] Comment on above: Performed By: #### L 100.0100, L500.4050 ####[facility] [address] [place], [address] RED CELL MORPH NORM C+C Normal NORM C C [facility] Comment on above: Performed By: #### L 100.0100, L500.4050 ####[facility] [address] [place], [address] PLT EST ADEQUATE Normal ADEQ [facility] Comment on above: Performed By: #### L 100.0100, L500.4050 ####[facility] [address] [place], [address] SMEAR COMMENT SEE COMMENT Normal [facility] Comment on above: Result Comment: LYMP HOPENIA NOTED Performed By: #### L 100.0100, L500.4050 ####[facility] [address] [place], [address] Carbon dioxide, total [Moles /volume] in Central venous bloodOrdered By: ED PROVIDER on 08-14-2024 CO2 [Moles/Vol] 17.4 mmol/L Low 21.0-32.0 [facility] Chest PA and Lateralon 08-14 Chest PA and Lateral Normal [facility] Chloride assayOrdered By: ED PROVIDER on 08-14-2024 Chloride [Moles/Vol] 105 mmol/L 98-108 [facility] Comprehensive Metabolic Prof ilon 08-14-2024 Albumin [Mass/Vol] 3.7 g/dL Normal 3.4-4.8 [facility] Comment on above: Performed By: #### L 100.0100, L500.4050 ####[facility] [address] [place], [address] Albumin/Globulin [Mass ratio] 1.1 {ratio} Normal 0.9-2.4 [facility] Comment on above: Performed By: #### L 100.0100, L500.4050 ####[facility] [address] [place], [address] ALK PHOS 85 U/L Normal 40-129 [facility] Comment on above: Performed By: #### L 100.0100, L500.4050 ####[facility] [address] [place], [address] ALT [Catalytic activity/Vol] 16 U/L Normal <=46 [facility] Comment on above: Performed By: #### L 100.0100, L500.4050 ####[facility] [address] [place], [address] AST [Catalytic activity/Vol] 24 U/L Normal <=37 [facility] Comment on above: Performed By: #### L 100.0100, L500.4050 ####[facility] [address] [place], [address] Bilirubin [Mass/Vol] 0.25 mg/dL Normal 0.00-1.30 [facility] Comment on above: Performed By: #### L 100.0100, L500.4050 ####[facility] [address] [place], [address] BUN/CRE 18.2 RATIO Normal 10-20 [facility] Comment on above: Performed By: #### L 100.0100, L500.4050 ####[facility] [address] [place], [address] Calcium [Mass/Vol] 9.2 mg/dL Normal 7.6-11.0 [facility] Comment on above: Performed By: #### L 100.0100, L500.4050 ####[facility] [address] [place], [address] Chloride [Moles/Vol] 105 mmol/L Normal 98-108 [facility] Comment on above: Performed By: #### L 100.0100, L500.4050 ####[facility] [address] [place], [address] CO2 [Moles/Vol] 17.4 mmol/L Low 21.0-32.0 [facility] Comment on above: Performed By: #### L 100.0100, L500.4050 ####[facility] [address] [place], [address] Creatinine [Mass/Vol] 1.69 mg/dL High 0.70-1.20 [facility] Comment on above: Performed By: #### L 100.0100, L500.4050 ####[facility] [address] [place], [address] GAP 17 High 5-15 [facility] Comment on above: Performed By: #### L 100.0100, L500.4050 ####[facility] [address] [place], [address] GFR/1.73 sq M.predicted among non-blacks MDRD (S/P/Bld) [Vol rate/Area] 42 mL/min/{1.73_m2} Low >60 [facility] Comment on above: Result Comment: mL/m in/1.73m2 CKD-EPI Creatinine Equation (2020) Performed By: #### L 100.0100, L500.4050 ####[facility] [address] [place], [address] Globulin (S) [Mass/Vol] 3.4 g/dL Normal 2.2-4.2 [facility] Comment on above: Performed By: #### L 100.0100, L500.4050 ####[facility] [address] [place], [address] Glucose [Mass/Vol] 139 mg/dL High 70-99 [facility] Comment on above: Performed By: #### L 100.0100, L500.4050 ####[facility] [address] [place], [address] Potassium [Moles/Vol] 4.5 mmol/L Normal 3.3-5.1 [facility] Comment on above: Result Comment: Hemo lysis present, Results??could be affected.?? Performed By: #### L 100.0100, L500.4050 ####[facility] [address] [place], [address] Sodium [Moles/Vol] 139 mmol/L Normal 133-145 [facility] Comment on above: Performed By: #### L 100.0100, L500.4050 ####[facility] [address] [place], [address] T PROT 7.2 g/dL Normal 5.9-8.4 [facility] Comment on above: Performed By: #### L 100.0100, L500.4050 ####[facility] [address] [place], [address] Urea nitrogen [Mass/Vol] 31 mg/dL High 4-19 [facility] Comment on above: Performed By: #### L 100.0100, L500.4050 ####[facility] [address] [place], [address] Emergency Department Summary on 08-14-2024 Emergency Department Summary Normal [facility] Eosinophil percentageOrdered By: ED PROVIDER on 08-14-2024 Eosinophils/100 WBC (Bld) 5.7 % High 0-5 [facility] Epithelial cells.squamous LM Ql (Urine sed)Ordered By: Kishore Nicolas on 08-14-2024 Epithelial cells.squamous LM.HPF (Urine sed) [#/Area] 5 /[HPF] 0-5 [facility] Erythrocyte distribution wid th ratioOrdered By: ED PROVIDER on 08-14-2024 Erythrocyte distribution width (RBC) [Ratio] 14.0 % 11.6-14.6 [facility] Erythrocyte distribution wid th standard deviationOrdered By: ED PROVIDER on 08-14-2024 Erythrocyte distribution width (RBC) [Entitic vol] 43.3 fL 35.1-43.9 [facility] Folate [Moles/Vol]Ordered By : Rajinder Iyer on 08-14-2024 Serum Folate 18.20 ng/mL 4.60-34.80 [facility] Comment on above: Hemolysis, Results w ill be affected, Requires Recollection. Folate [Moles/volume] in Ser um or PlasmaOrdered By: Rajinder Iyer on 08-14-2024 Folate [Moles/Vol] 18.20 ng/mL 4.60-34.80 [facility] Comment on above: Hemolysis, Results w ill be affected, Requires Recollection. GFR/1.73 sq M.predicted tobias g non-blacks MDRD (S/P/Bld) [Vol rate/Area]Ordered By: ED PROVIDER on 08-14-2024 Estimated GFR (MDRD) Non-Af Amer 42 Low >60 [facility] Comment on above: mL/min/1.73m2 CKD-EP I Creatinine Equation (2020) Glucose Ql (U)Ordered By: Leodan Nicolas on 08-14-2024 Urine Glucose (UA) Normal mg/dl Normal [facility] H AND P Exam - Hospitaliston 08-14-2024 H&P Exam - Hospitalist Normal [facility] Hematocrit Auto (Bld) [Volum e fraction]Ordered By: ED PROVIDER on 08-14-2024 Hematocrit (Bld) [Volume fraction] 36.1 % Low 40-54 [facility] Hemoglobin A1c percentageOrd ered By: Rajinder Iyer on 08-14-2024 HbA1c (Bld) [Mass fraction] 6.3 % >5.7 [facility] Hemoglobin measurementOrdere d By: ED PROVIDER on 08-14-2024 Hemoglobin (Bld) [Mass/Vol] 12.0 g/dL Low 13.0-16.5 [facility] Immature granulocytes/100 WB C Auto (Bld)Ordered By: ED PROVIDER on 08-14-2024 Immature granulocytes/100 WBC (Bld) 1.000 % High 0.0-0.9 [facility] Comment on above: IG% - Immature Granu locytes (promyelocytes, myelocytes and metamyelocytes) > 1% indicates that a LEFT SHIFT is Present. Influenza virus A and B and SARS-CoV-2 (COVID-19) and Respiratory syncytial virus RNAOrdered By: Kishore Nicolas on 08-14-2024 SARS-CoV-2 (COVID-19) RNA MARYJANE+probe Ql (Unsp spec) [facility] International normalized rat io (INR) calculationOrdered By: Kishore Nicolas on 08-14-2024 INR Coag (Bld) [Relative time] 1.2 {INR} [facility] Ketones Test strip Ql (U)Ord ered By: Kishore Nicolas on 08-14-2024 Ketones Ql (U) 5 mg/dl High Negative [facility] Laboratory - Chemistry and C hemistry - challengeOrdered By: ED PROVIDER on 08-14-2024 AST [Catalytic activity/Vol] 24 U/L <38 [facility] - Hematology and Cell countsOrdered By: Kishore Nicolas on 08-14-2024 Anisocytosis Ql (Bld) RARE [facility] Lactic Acidon 08-14-2024 Lactate [Moles/Vol] 4.2 mmol/L Invalid Interpretation Code 0.0-2.0 [facility] Comment on above: Order Comment: Y Result Comment: Crit ical Result(s) Called at: by: YELITZA WILLETT TO ABIGALLAMMERS??Results read back by same. Performed By: #### M 200.1000, L300.4310, L503.6005, L300.3900 ####[facility] [address] [place], [address] Lactic acid measurementOrder ed By: Kishore Nicolas on 08-14-2024 Lactate [Moles/Vol] 4.2 mmol/L High 0.0-2.0 [facility] Comment on above: Critical Result(s) C alled at: by: YELITZA GOODWIN Results read back by same. Lymphocytes Auto (Unsp spec) [#/Vol]Ordered By: ED PROVIDER on 08-14-2024 Lymphocytes (Bld) [#/Vol] 0.30 10*3/uL Low 0.83-4.51 [facility] Lymphocytes/100 WBC Auto (Un sp spec)Ordered By: ED PROVIDER on 08-14-2024 Lymphocytes/100 WBC (Bld) 15.5 % Low 19-41 [facility] M100.678on 08-14-2024 M100.678 SARS-CoV-2 (COVID 19) Negative INFLUENZA A Negative INFLUENZA B Negative RSV PCR Negative Normal [facility] Comment on above: Performed By: #### M 100.678, M100.2200 ####[facility] [address] [place], [address] MCV (mean corpuscular volume ) determinationOrdered By: ED PROVIDER on 08-14-2024 MCV (RBC) [Entitic vol] 85.3 fL 80-94 [facility] Manual differential comment Kristian (Bld) [Interp]Ordered By: Kishore Nicolas on 08-14-2024 Differential Comment SEE COMMENT [facility] Comment on above: LYMPHOPENIA NOTED Mean corpuscular hemoglobin (MCH) determinationOrdered By: ED PROVIDER on 08-14-2024 MCH (RBC) [Entitic mass] 28.4 pg 27.0-32.0 [facility] Mean corpuscular hemoglobin concentration (MCHC) determinationOrdered By: ED PROVIDER on 08-14-2024 MCHC (RBC) [Mass/Vol] 33.2 g/dL 32-36 [facility] Mean platelet volume determi nationOrdered By: ED PROVIDER on 08-14-2024 Platelet mean volume (Bld) [Entitic vol] 9.6 fL 6.2-12.0 [facility] Microscopic analysis of urin e for red blood cells (RBC)Ordered By: Kishore Nicolas on 08-14-2024 Microscopic analysis of urine for red blood cells (RBC) > 100 SEEN /hpf 0-5 [facility] Urine RBC > 100 SEEN /hpf 0-5 [facility] Monocyte percentageOrdered B y: ED PROVIDER on 08-14-2024 Monocytes/100 WBC (Bld) 0.5 % 0-10 [facility] Mucus LM Ql (Urine sed)Order ed By: Kishore Nicolas on 08-14-2024 Mucus Ql (Urine sed) 0 SEEN /hpf [facility] Neutrophil percentageOrdered By: ED PROVIDER on 08-14-2024 Neutrophils/100 WBC (Bld) 76.8 % High 47-70 [facility] Nitrite Test strip Ql (U)Ord ered By: Kishore Nicolas on 08-14-2024 Nitrite Ql (U) Negative Negative [facility] Nucleated red blood cell per centageOrdered By: ED PROVIDER on 08-14-2024 Nucleated RBC/100 WBC (Bld) [Ratio] 0 % 0-5 [facility] Partial Thromboplast Timeon 08-14-2024 aPTT Coag (Bld) [Time] 26.3 s Normal 24.1-36.2 [facility] Comment on above: Performed By: #### M 200.1000, L300.4310, L503.6005, L300.3900 ####[facility] [address] [place], [place], [id number] Platelet countOrdered By: ED PROVIDER on 08-14-2024 Platelets (Bld) [#/Vol] 229 10*3/uL 150-450 [facility] Platelets LM Ql (Bld)Ordered By: Kishore Nicolas on 08-14-2024 Platelet Estimate ADEQUATE ADEQ [facility] Potassium (Unsp spec) [Mass/ Vol]Ordered By: ED PROVIDER on 08-14-2024 Potassium [Moles/Vol] 4.5 mmol/L 3.3-5.1 [facility] Comment on above: Hemolysis present, R esults could be affected. Protein Test strip Ql (U)Ord ered By: Kishore Nicolas on 08-14-2024 Protein Ql (U) 100 mg/dl High Negative [facility] Prothrombin Time w/INRon INR Coag (PPP) [Relative time] 1.2 {INR} Normal [facility] Comment on above: Performed By: #### M 200.1000, L300.4310, L503.6005, L300.3900 ####[facility] [address] [place], [address] PT Coag (PPP) [Time] 15.5 s High 11.7-14.9 [facility] Comment on above: Performed By: #### M 200.1000, L300.4310, L503.6005, L300.3900 ####[facility] [address] [place], [address] Prothrombin timeOrdered By: Kishore Nicolas on 08-14-2024 PT Coag (PPP) [Time] 15.5 s High 11.7-14.9 [facility] RBC Auto (Bld) [#/Vol]Ordere d By: ED PROVIDER on 08-14-2024 RBC (Bld) [#/Vol] 4.23 10*6/uL Low 4.6-6.2 [facility] RBC morphology finding Nom ( Bld)Ordered By: Kishore Nicolas on 08-14-2024 Red Blood Cell Morphology NORM C+C NORMAL NORM C&C [facility] Serum creatinine measurement (mass/volume)Ordered By: ED PROVIDER on 08-14-2024 Creatinine [Mass/Vol] 1.69 mg/dL High 0.70-1.20 [facility] Serum globulin measurementOr dered By: ED PROVIDER on 08-14-2024 Globulin (S) [Mass/Vol] 3.4 g/dL 2.2-4.2 [facility] Serum glucose measurement (m ass/volume)Ordered By: ED PROVIDER on 08-14-2024 Glucose [Mass/Vol] 139 mg/dL High 70-99 [facility] Serum or plasma alanine morris otransferase (ALT) measurementOrdered By: ED PROVIDER on 08-14-2024 ALT [Catalytic activity/Vol] 16 U/L <47 [facility] Serum or plasma albumin janusz urement (mass/volume)Ordered By: ED PROVIDER on 08-14-2024 Albumin [Mass/Vol] 3.7 g/dL 3.4-4.8 [facility] Serum or plasma albumin/glob ulin mass ratioOrdered By: ED PROVIDER on 08-14-2024 Albumin/Globulin [Mass ratio] 1.1 {ratio} 0.9-2.4 [facility] Serum or plasma alkaline trice sphatase measurementOrdered By: ED PROVIDER on 08-14-2024 ALP [Catalytic activity/Vol] 85 U/L 40-129 [facility] Serum or plasma calcium janusz urement (mass/volume)Ordered By: ED PROVIDER on 08-14-2024 Calcium [Mass/Vol] 9.2 mg/dL 7.6-11.0 [facility] Serum or plasma urea nitroge n measurement (mass/volume)Ordered By: ED PROVIDER on 08-14-2024 Urea nitrogen [Mass/Vol] 31 mg/dL High 4-19 [facility] Sodium levelOrdered By: ED Ed SILVA on 08-14-2024 Sodium [Moles/Vol] 139 mmol/L 133-145 [facility] Squamous epithelial cells de tection in urine sediment by light microscopyOrdered By: Kishore Nicolas on 08-14-2024 Epithelial cells.squamous LM Ql (Urine sed) 5-10 SEEN /hpf 0-5 [facility] TSH DL <= 0.005 mIU/L QnOrde red By: Rajinder Iyer on 08-14-2024 Thyroid Stimulating Hormone (TSH) 3.660 uIU/mL 0.300-4.200 [facility] TSH Qn 3.660 uIU/mL 0.300-4.200 [facility] Total proteinOrdered By: ED PROVIDER on 08-14-2024 Protein [Mass/Vol] 7.2 g/dL 5.9-8.4 [facility] Urinalysis, Completeon 08-14 AMORPHOUS 2+ PHOS Normal [facility] Comment on above: Order Comment: COLOR OF URINE MAY AFFECT DIPSTICK RESULTS.SWITCHBOARD INSPECTOR TO SPECIFY Performed By: #### L 400.0001 ####[facility] [address] [place], [address] BACTERIA RARE Normal None Seen [facility] Comment on above: Order Comment: COLOR OF URINE MAY AFFECT DIPSTICK RESULTS.SWITCHBOARD INSPECTOR TO SPECIFY Performed By: #### L 400.0001 ####[facility] [address] [place], [address] EPI,SQUAMOUS 5-10 SEEN Normal 0-5 [facility] Comment on above: Order Comment: COLOR OF URINE MAY AFFECT DIPSTICK RESULTS.SWITCHBOARD INSPECTOR TO SPECIFY Performed By: #### L 400.0001 ####[facility] [address] [place], [address] RBC > 100 SEEN Normal 0-5 [facility] Comment on above: Order Comment: COLOR OF URINE MAY AFFECT DIPSTICK RESULTS.SWITCHBOARD INSPECTOR TO SPECIFY Performed By: #### L 400.0001 ####[facility] [address] [place], [address] WBC 50-100 SEEN Normal 0-5 [facility] Comment on above: Order Comment: COLOR OF URINE MAY AFFECT DIPSTICK RESULTS.SWITCHBOARD INSPECTOR TO SPECIFY Performed By: #### L 400.0001 ####[facility] [address] [place], [address] Mucus Ql (Urine sed) 0 SEEN Normal [facility] Comment on above: Order Comment: COLOR OF URINE MAY AFFECT DIPSTICK RESULTS.SWITCHBOARD INSPECTOR TO SPECIFY Performed By: #### L 400.0001 ####[facility] [address] [place], [address] Urine blood detectionOrdered By: Kishore Nicolas on 08-14-2024 Urine Occult Blood 250 /ul High Negative [facility] Urine clarityOrdered By: Gio Nicolas on 08-14-2024 Clarity (U) Cloudy Clear [facility] Urine color determinationOrd ered By: Kishore Nicolas on 08-14-2024 Color (U) Red Yellow [facility] Urine cultureOrdered By: Gio Nicolas on 08-14-2024 Bacteria identified Cx Nom (U) Providencia rettgeri Abnormal [facility] Bacteria identified Cx Nom (U) Myroides spp Abnormal [facility] Bacteria identified Cx Nom (U) Enterococcus faecalis Abnormal [facility] Urine glucose detectionOrder ed By: Kishore Nicolas on 08-14-2024 Glucose Ql (U) Normal mg/dl Normal [facility] Urine leukocyte esterase det ection by dipstickOrdered By: Kishore Nicolas on 08-14-2024 Leukocyte esterase Test strip Ql (U) 500 /ul High Negative [facility] Urine pHOrdered By: Kishore paul on 08-14-2024 pH (U) 8.0 [pH] 5.0 - 8.0 [facility] Urine sediment bacteria coun t by microscopy (number/high power field)Ordered By: Kishore Nicolas on 08-14-2024 Bacteria LM.HPF (Urine sed) [#/Area] RARE /hpf None Seen [facility] Urine specific gravity measu rementOrdered By: Kishore Nicolas on 08-14-2024 Specific gravity (U) [Rel density] 1.010 1.002-1.030 [facility] Urine urobilinogen measureme ntOrdered By: Kishore Nicolas on 08-14-2024 Urobilinogen Ql (U) Normal mg/dl Normal [facility] Urobilinogen Ql (U)Ordered B y: Kishore Nicolas on 08-14-2024 Urine Urobilinogen Normal mg/dl Normal [facility] Vitamin B12 ser/plasOrdered By: Rajinder Iyer on 08-14-2024 Cobalamin (Vitamin B12) [Mass/Vol] 1133 pg/mL High 180-914 [facility] White blood cell (WBC) count Ordered By: ED PROVIDER on 08-14-2024 WBC (Bld) [#/Vol] 1.9 10*3/uL Low 4.4-11.0 [facility] White blood cell countOrdere d By: Kishore Nicolas on 08-14-2024 Urine WBC 50-100 SEEN /hpf 0-5 [facility] White blood cell count 50-100 SEEN /hpf 0-5 [facility] aPTT Coag (PPP) [Time]Ordere d By: Kishore Nicolas on 08-14-2024 aPTT Coag (Bld) [Time] 26.3 s 24.1-36.2 [facility] Absolute lymphocyte countOrd ered By: Kelvin Han on 07-19-2024 Lymphocytes Auto (Unsp spec) [#/Vol] 0.56 10*3/uL Low 0.83-4.51 [facility] Absolute neutrophil countOrd ered By: Kelvin Han on 07-19-2024 Neutrophils (Bld) [#/Vol] 2.9 10*3/uL 2.0-7.7 [facility] Albumin to globulin ratioOrd ered By: Kelvin Han on 07-19-2024 Albumin/Globulin [Mass ratio] 0.7 {ratio} Low 0.9-2.4 [facility] Automated lymphocyte count a s percentage of total leukocytesOrdered By: Kelvin Han on 07-19-2024 Lymphocytes/100 WBC Auto (Unsp spec) 13.0 % Low 19-41 [facility] Basophil percentageOrdered B y: Kelvin Han on 07-19-2024 Basophils/100 WBC (Bld) 0.5 % 0-1 [facility] Bilirubin, totalOrdered By: Kelvin Han on 07-19-2024 Bilirubin [Mass/Vol] 0.30 mg/dL 0.20-1.00 [facility] Comment on above: For patients on eltr ombopag therapy, use of Dimension [place] TBIL is not recommended. Blood urea nitrogen (BUN)/cr eatinine ratioOrdered By: Kelvin Han on 07-19-2024 Urea nitrogen/Creatinine [Mass ratio] 16.3 mg/mg 10-20 [facility] CBC W/Diff, Automatedon 07-07 Absolute Lymph 0.56 X10 3/uL Low 0.83-4.51 [facility] Comment on above: Order Comment: Inter face Comments:Hives reoccuringOrder Date: 07/19/24Order Info: 0184-1 - CBCDComments: Hives reoccuring Performed By: #### L 500.4050, L100.0100, L501.9520 ####[facility] [address] [place], [address] Absolute Neut 2.9 X10 3/uL Normal 2.0-7.7 [facility] Comment on above: Order Comment: Inter face Comments:Hives reoccuringOrder Date: 07/19/24Order Info: [id number] - CBCDComments: Hives reoccuring Performed By: #### L 500.4050, L100.0100, L501.9520 ####[facility] [address] [place], [address] Basophils/100 WBC (Bld) 0.5 % Normal 0-1 [facility] Comment on above: Order Comment: Inter face Comments:Hives reoccuringOrder Date: 07/19/24Order Info: 183-06 - CBCDComments: Hives reoccuring Performed By: #### L 500.4050, L100.0100, L501.9520 ####[facility] [address] [place], [address] Eosinophils/100 WBC (Bld) 9.0 % High 0-5 [facility] Comment on above: Order Comment: Inter face Comments:Hives reoccuringOrder Date: 07/19/24Order Info: 183-06 - CBCDComments: Hives reoccuring Performed By: #### L 500.4050, L100.0100, L501.9520 ####[facility] [address] [place], [address] Erythrocyte distribution width (RBC) [Ratio] 13.7 % Normal 11.6-14.6 [facility] Comment on above: Order Comment: Inter face Comments:Hives reoccuringOrder Date: 07/19/24Order Info: 183-06 - CBCDComments: Hives reoccuring Performed By: #### L 500.4050, L100.0100, L501.9520 ####[facility] [address] [place], [address] Hematocrit (Bld) [Volume fraction] 35.0 % Low 40-54 [facility] Comment on above: Order Comment: Inter face Comments:Hives reoccuringOrder Date: 07/19/24Order Info: 183-06 - CBCDComments: Hives reoccuring Performed By: #### L 500.4050, L100.0100, L501.9520 ####[facility] [address] [place], [address] Hemoglobin (Bld) [Mass/Vol] 11.2 g/dL Low 13.0-16.5 [facility] Comment on above: Order Comment: Inter face Comments:Hives reoccuringOrder Date: 07/19/24Order Info: 018- - CBCDComments: Hives reoccuring Performed By: #### L 500.4050, L100.0100, L501.9520 ####[facility] [address] [place], [address] IG% 0.200 Normal 0.0-0.9 [facility] Comment on above: Order Comment: Inter face Comments:Hives reoccuringOrder Date: 07/19/24Order Info: 01809-04 - CBCDComments: Hives reoccuring Result Comment: IG% - Immature Granulocytes (promyelocytes, myelocytes andmetamyelocytes) > 1% indicates that a LEFT SHIFT is Present. Performed By: #### L 500.4050, L100.0100, L501.9520 ####[facility] [address] [place], [address] Lymphocytes/100 WBC (Bld) 13.0 % Low 19-41 [facility] Comment on above: Order Comment: Inter face Comments:Hives reoccuringOrder Date: 07/19/24Order Info: 0184- - CBCDComments: Hives reoccuring Performed By: #### L 500.4050, L100.0100, L501.9520 ####[facility] [address] [place], [address] MCH (RBC) [Entitic mass] 27.7 pg Normal 27.0-32.0 [facility] Comment on above: Order Comment: Inter face Comments:Hives reoccuringOrder Date: 07/19/24Order Info: 018- - CBCDComments: Hives reoccuring Performed By: #### L 500.4050, L100.0100, [id number] ####[facility] [address] [place], [address] MCHC (RBC) [Mass/Vol] 32.0 g/dL Normal 32-36 [facility] Comment on above: Order Comment: Inter face Comments:Hives reoccuringOrder Date: 07/19/24Order Info: 183-06 - CBCDComments: Hives reoccuring Performed By: #### L 500.4050, L100.0100, L501.9520 ####[facility] [address] [place], [address] MCV (RBC) [Entitic vol] 86.4 fL Normal 80-94 [facility] Comment on above: Order Comment: Inter face Comments:Hives reoccuringOrder Date: 07/19/24Order Info: 183-06 - CBCDComments: Hives reoccuring Performed By: #### L 500.4050, L100.0100, [id number] ####[facility] [address] [place], [address] Monocytes/100 WBC (Bld) 10.9 % High 0-10 [facility] Comment on above: Order Comment: Inter face Comments:Hives reoccuringOrder Date: 07/19/24Order Info: 183-06 - CBCDComments: Hives reoccuring Performed By: #### L 500.4050, L100.0100, [id number] ####[facility] [address] [place], [address] Neutrophils/100 WBC (Bld) 66.4 % Normal 47-70 [facility] Comment on above: Order Comment: Inter face Comments:Hives reoccuringOrder Date: 07/19/24Order Info: 183-06 - CBCDComments: Hives reoccuring Performed By: #### L 500.4050, L100.0100, L501.9520 ####[facility] [address] [place], [address] Nucleated RBC (Bld) [#/Vol] 0 10*3/uL Normal 0-5 [facility] Comment on above: Order Comment: Inter face Comments:Hives reoccuringOrder Date: 07/19/24Order Info: 183-06 - CBCDComments: Hives reoccuring Performed By: #### L 500.4050, L100.0100, L501.9520 ####[facility] [address] [place], [address] Platelet mean volume (Bld) [Entitic vol] 10.4 fL Normal 6.2-12.0 [facility] Comment on above: Order Comment: Inter face Comments:Hives reoccuringOrder Date: 07/19/24Order Info: 183-06 - CBCDComments: Hives reoccuring Performed By: #### L 500.4050, L100.0100, L501.9520 ####[facility] [address] [place], [address] Platelets (Bld) [#/Vol] 224 10*3/uL Normal 150-450 [facility] Comment on above: Order Comment: Inter face Comments:Hives reoccuringOrder Date: 07/19/24Order Info: 183-06 - CBCDComments: Hives reoccuring Performed By: #### L 500.4050, L100.0100, L501.9520 ####[facility] [address] [place], [address] RBC (Bld) [#/Vol] 4.05 10*6/uL Low 4.6-6.2 [facility] Comment on above: Order Comment: Inter face Comments:Hives reoccuringOrder Date: 07/19/24Order Info: 183-06 - CBCDComments: Hives reoccuring Performed By: #### L 500.4050, L100.0100, L501.9520 ####[facility] [address] [place], [address] RDW SD 42.9 fl Normal 35.1-43.9 [facility] Comment on above: Order Comment: Inter face Comments:Hives reoccuringOrder Date: 07/19/24Order Info: 0184-1 - CBCDComments: Hives reoccuring Performed By: #### L 500.4050, L100.0100, L501.9520 ####[facility] [address] [place], [address] WBC (Bld) [#/Vol] 4.3 10*3/uL Low 4.4-11.0 [facility] Comment on above: Order Comment: Inter face Comments:Hives reoccuringOrder Date: 07/19/24Order Info: 01809-04 - CBCDComments: Hives reoccuring Performed By: #### L 500.4050, L100.0100, L501.9520 ####[facility] [address] [place], [address] Carbon dioxide measurementOr dered By: Kelvin Han on 07-19-2024 CO2 [Moles/Vol] 23.0 mmol/L 21.0-32.0 [facility] Chloride measurementOrdered By: Kelvin Han on 07-19-2024 Chloride [Moles/Vol] 106 mmol/L 98-107 [facility] Comprehensive Metabolic Prof ilon 07-19-2024 Albumin [Mass/Vol] 3.0 g/dL Low 3.2-5.0 [facility] Comment on above: Order Comment: Inter face Comments:Hives reoccuringOrder Date: 07/19/24Order Info: 0786-1 - CMPOrder Info: 3016-3 - TSHComments: Hives reoccuringHives reoccuring Performed By: #### L 500.4050, L100.0100, L501.9520 ####[facility] [address] [place], [address] Albumin/Globulin [Mass ratio] 0.7 {ratio} Low 0.9-2.4 [facility] Comment on above: Order Comment: Inter face Comments:Hives reoccuringOrder Date: 07/19/24Order Info: 0786-1 - CMPOrder Info: [id number] - TSHComments: Hives reoccuringHives reoccuring Performed By: #### L 500.4050, L100.0100, L501.9520 ####[facility] [address] [place], [address] ALK P 76 U/L Normal 45-117 [facility] Comment on above: Order Comment: Inter face Comments:Hives reoccuringOrder Date: 07/19/24Order Info: 0786- - CMPOrder Info: 3016 - TSHComments: Hives reoccuringHives reoccuring Performed By: #### L 500.4050, L100.0100, L501.9520 ####[facility] [address] [place], [address] ALT [Catalytic activity/Vol] 19 U/L Normal 16-61 [facility] Comment on above: Order Comment: Inter face Comments:Hives reoccuringOrder Date: 07/19/24Order Info: 0786-1 - CMPOrder Info: [id number] - TSHComments: Hives reoccuringHives reoccuring Performed By: #### L 500.4050, L100.0100, L501.9520 ####[facility] [address] [place], [address] AST [Catalytic activity/Vol] 20 U/L Normal 15-37 [facility] Comment on above: Order Comment: Inter face Comments:Hives reoccuringOrder Date: 07/19/24Order Info: 0786-1 - CMPOrder Info: [id number] - TSHComments: Hives reoccuringHives reoccuring Performed By: #### L 500.4050, L100.0100, L501.9520 ####[facility] [address] [place], [address] Bilirubin [Mass/Vol] 0.30 mg/dL Normal 0.20-1.00 [facility] Comment on above: Order Comment: Inter face Comments:Hives reoccuringOrder Date: 07/19/24Order Info: 0786-1 - CMPOrder Info: 3016-3 - TSHComments: Hives reoccuringHives reoccuring Result Comment: For patients on eltrombopag therapy, use of Dimension [place] TBIL is not recommended. Performed By: #### L 500.4050, L100.0100, L501.9520 ####[facility] [address] [place], [address] BUN/CRE 16.3 RATIO Normal 10-20 [facility] Comment on above: Order Comment: Inter face Comments:Hives reoccuringOrder Date: 07/19/24Order Info: 785-06 - CMPOrder Info: 3 - TSHComments: Hives reoccuringHives reoccuring Performed By: #### L 500.4050, L100.0100, L501.9520 ####[facility] [address] [place], [place], [address] CA,Total 9.2 mg/dL Normal 8.5-10.1 [facility] Comment on above: Order Comment: Inter face Comments:Hives reoccuringOrder Date: 07/19/24Order Info: 07 - CMPOrder Info: 3 - TSHComments: Hives reoccuringHives reoccuring Performed By: #### L 500.4050, L100.0100, L501.9520 ####[facility] [address] [facility] [address] [place], [place], [address] Chloride [Moles/Vol] 106 mmol/L Normal 98-107 [facility] Comment on above: Order Comment: Inter face Comments:Hives reoccuringOrder Date: 07/19/24Order Info: 07- - CMPOrder Info: 3 - TSHComments: Hives reoccuringHives reoccuring Performed By: #### L 500.4050, L100.0100, L501.9520 ####[facility] [address] [place], [address] CO2 [Moles/Vol] 23.0 mmol/L Normal 21.0-32.0 [facility] Comment on above: Order Comment: Inter face Comments:Hives reoccuringOrder Date: 07/19/24Order Info: 0786-1 - CMPOrder Info: 3016-3 - TSHComments: Hives reoccuringHives reoccuring Performed By: #### L 500.4050, L100.0100, [id number] ####[facility] [address] [place], [address] Creatinine [Mass/Vol] 1.47 mg/dL High 0.70-1.30 [facility] Comment on above: Order Comment: Inter face Comments:Hives reoccuringOrder Date: 07/19/24Order Info: 0786-1 - CMPOrder Info: 3016-3 - TSHComments: Hives reoccuringHives reoccuring Result Comment: The validity of the calculated GFR GFRAA in patients over70 years has not been determined. Clinical correlation isessential. Performed By: #### L 500.4050, L100.0100, L501.9520 ####[facility] [address] [place], [address] EST GFR - AA 60 mL/min Normal >60 [facility] Comment on above: Order Comment: Inter face Comments:Hives reoccuringOrder Date: 07/19/24Order Info: 0786-1 - CMPOrder Info: 3016-3 - TSHComments: Hives reoccuringHives reoccuring Result Comment: Afri can [place]ian GFR Calc Performed By: #### L 500.4050, L100.0100, L501.9520 ####[facility] [address] [place], [address] GAP 7 Normal 5-15 [facility] Comment on above: Order Comment: Inter face Comments:Hives reoccuringOrder Date: 07/19/24Order Info: 0786- - CMPOrder Info: 3 - TSHComments: Hives reoccuringHives reoccuring Performed By: #### L 500.4050, L100.0100, L501.9520 ####[facility] [address] [place], [address] GFR/1.73 sq M.predicted among non-blacks MDRD (S/P/Bld) [Vol rate/Area] 49 mL/min/{1.73_m2} Low >60 [facility] Comment on above: Order Comment: Inter face Comments:Hives reoccuringOrder Date: 07/19/24Order Info: 07- - CMPOrder Info: 3 - TSHComments: Hives reoccuringHives reoccuring Result Comment: Non- GFR Calc Performed By: #### L 500.4050, L100.0100, L501.9520 ####[facility] [address] [place], [address] Globulin (S) [Mass/Vol] 4.6 g/dL High 2.2-4.2 [facility] Comment on above: Order Comment: Inter face Comments:Hives reoccuringOrder Date: 07/19/24Order Info: 07- - CMPOrder Info: 3 - TSHComments: Hives reoccuringHives reoccuring Performed By: #### L 500.4050, L100.0100, L501.9520 ####[facility] [address] [place], [address] Glucose [Mass/Vol] 118 mg/dL High 74-106 [facility] Comment on above: Order Comment: Inter face Comments:Hives reoccuringOrder Date: 07/19/24Order Info: 07- - CMPOrder Info: 3 - TSHComments: Hives reoccuringHives reoccuring Result Comment: Fast ing Glucose result from 100 to 125 mg/dLsuggests IMPAIRED HOMEOSTASIS per A.D.A. criteria. Performed By: #### L 500.4050, L100.0100, L501.9520 ####[facility] [address] [place], [address] Potassium [Moles/Vol] 4.4 mmol/L Normal 3.5-5.1 [facility] Comment on above: Order Comment: Inter face Comments:Hives reoccuringOrder Date: 07/19/24Order Info: 0786-1 - CMPOrder Info: 6-3 - TSHComments: Hives reoccuringHives reoccuring Performed By: #### L 500.4050, L100.0100, L501.9520 ####[facility] [address] [place], [address] Sodium [Moles/Vol] 136 mmol/L Normal 136-145 [facility] Comment on above: Order Comment: Inter face Comments:Hives reoccuringOrder Date: 07/19/24Order Info: 0786-1 - CMPOrder Info: 63 - TSHComments: Hives reoccuringHives reoccuring Performed By: #### L 500.4050, L100.0100, L501.9520 ####[facility] [address] [place], [address] T PROT 7.6 g/dL Normal 6.4-8.2 [facility] Comment on above: Order Comment: Inter face Comments:Hives reoccuringOrder Date: 07/19/24Order Info: 0786-1 - CMPOrder Info: 63 - TSHComments: Hives reoccuringHives reoccuring Performed By: #### L 500.4050, L100.0100, L501.9520 ####[facility] [address] [place], [address] Urea nitrogen [Mass/Vol] 24 mg/dL High 7-18 [facility] Comment on above: Order Comment: Inter face Comments:Hives reoccuringOrder Date: 07/19/24Order Info: 0786-1 - CMPOrder Info: 3016-3 - TSHComments: Hives reoccuringHives reoccuring Performed By: #### L 500.4050, L100.0100, L501.9520 ####[facility] [address] [facility] [place], [place], [id number] Eosinophil percentageOrdered By: Kelvin Han on 07-19-2024 Eosinophils/100 WBC (Bld) 9.0 % High 0-5 [facility] Erythrocyte Sed Rateon 07-19 SED RATE 33 mm/hr High 0-20 [facility] Comment on above: Order Comment: Inter face Comments:Hives reoccuringOrder Date: 07/19/24Order Info: 0184-1 - CBCDComments: Hives reoccuring Performed By: #### L 101.9900 ####[facility] [address] [facility] [place], [place], [id number] Erythrocyte distribution wid th ratioOrdered By: Kelvin Han on 07-19-2024 Erythrocyte distribution width (RBC) [Ratio] 13.7 % 11.6-14.6 [facility] Erythrocyte distribution wid th standard deviationOrdered By: Kelvin Han on 07-19-2024 Erythrocyte distribution width (RBC) [Entitic vol] 42.9 fL 35.1-43.9 [facility] Erythrocyte distribution width (RBC) [Ratio] 42.9 fl 35.1-43.9 [facility] Erythrocyte sedimentation ra teOrdered By: Kelvin Han on 07-19-2024 ESR (Bld) [Velocity] 33 mm/h High 0-20 [facility] Estimated glomerular filtrat ion rate (GFR) AmericanOrdered By: Kelvin Han on 07-19-2024 Estimated GFR (MDRD) Amer 60 mL/min >60 [facility] Comment on above: GFR Calc Glomerular filtration rate ( GFR) estimationOrdered By: Kelvin Han on 07-19-2024 Estimated GFR (MDRD) Non-Af Amer 49 mL/min Low >60 [facility] Comment on above: Non- GFR Calc GFR/1.73 sq M.predicted among non-blacks MDRD (S/P/Bld) [Vol rate/Area] 49 mL/min/{1.73_m2} Low >60 [facility] Comment on above: Non- GFR Calc Glucose measurementOrdered B y: Kelvin Han on 07-19-2024 Glucose [Mass/Vol] 118 mg/dL High 74-106 [facility] Comment on above: Fasting Glucose resu lt from 100 to 125 mg/dL suggests IMPAIRED HOMEOSTASIS per A.D.A. criteria. Hematocrit Auto (Bld) [Volum e fraction]Ordered By: Kelvin Han on 07-19-2024 Hematocrit (Bld) [Volume fraction] 35.0 % Low 40-54 [facility] Hemoglobin measurementOrdere d By: Kelvin Han on 07-19-2024 Hemoglobin (Bld) [Mass/Vol] 11.2 g/dL Low 13.0-16.5 [facility] Immature granulocytes/100 WB C Auto (Bld)Ordered By: Kelvin Han on 07-19-2024 Immature granulocytes/100 WBC (Bld) 0.200 % 0.0-0.9 [facility] Comment on above: IG% - Immature Granu locytes (promyelocytes, myelocytes and metamyelocytes) > 1% indicates that a LEFT SHIFT is Present. Laboratory - Chemistry and C hemistry - challengeOrdered By: Kelvin Han on 07-19-2024 AST [Catalytic activity/Vol] 20 U/L 15-37 [facility] Lymphocytes Auto (Unsp spec) [#/Vol]Ordered By: Kelvin Han on 07-19-2024 Lymphocytes (Bld) [#/Vol] 0.56 10*3/uL Low 0.83-4.51 [facility] Lymphocytes/100 WBC Auto (Un sp spec)Ordered By: Kelvin Han on 07-19-2024 Lymphocytes/100 WBC (Bld) 13.0 % Low 19-41 [facility] MCV (mean corpuscular volume ) determinationOrdered By: Kelvin Han on 07-19-2024 MCV (RBC) [Entitic vol] 86.4 fL 80-94 [facility] Mean corpuscular hemoglobin (MCH) determinationOrdered By: Kelvni Han on 07-19-2024 MCH (RBC) [Entitic mass] 27.7 pg 27.0-32.0 [facility] Mean corpuscular hemoglobin concentration (MCHC) determinationOrdered By: Kelvin Han on 07-19-2024 MCHC (RBC) [Mass/Vol] 32.0 g/dL 32-36 [facility] Mean platelet volume determi nationOrdered By: Kelvin Han on 07-19-2024 Platelet mean volume (Bld) [Entitic vol] 10.4 fL 6.2-12.0 [facility] Monocyte percentageOrdered B y: Kelvin Han on 07-19-2024 Monocytes/100 WBC (Bld) 10.9 % High 0-10 [facility] Neutrophil percentageOrdered By: Kelvin Han on 07-19-2024 Neutrophils/100 WBC (Bld) 66.4 % 47-70 [facility] Nucleated red blood cell per centageOrdered By: Kelvin Han on 07-19-2024 Nucleated RBC/100 WBC (Bld) [Ratio] 0 % 0-5 [facility] Platelet countOrdered By: Itzel Han on 07-19-2024 Platelets (Bld) [#/Vol] 224 10*3/uL 150-450 [facility] Potassium measurementOrdered By: Kelvin Han on 07-19-2024 Potassium [Moles/Vol] 4.4 mmol/L 3.5-5.1 [facility] RBC Auto (Bld) [#/Vol]Ordere d By: Kelvin Han on 07-19-2024 RBC (Bld) [#/Vol] 4.05 10*6/uL Low 4.6-6.2 [facility] Serum anion gap measurementO rdered By: Kelvin Han on 07-19-2024 Anion gap [Moles/Vol] 7 mmol/L 5-15 [facility] Serum globulin measurementOr dered By: Kelvin Han on 07-19-2024 Globulin (S) [Mass/Vol] 4.6 g/dL High 2.2-4.2 [facility] Serum or plasma alanine morris otransferase (ALT) measurementOrdered By: Kelvin Han on 07-19-2024 ALT [Catalytic activity/Vol] 19 U/L 16-61 [facility] Serum or plasma albumin janusz urement (mass/volume)Ordered By: Kelvin Han on 07-19-2024 Albumin [Mass/Vol] 3.0 g/dL Low 3.2-5.0 [facility] Serum or plasma alkaline trice sphatase measurementOrdered By: Kelvin Han on 07-19-2024 ALP [Catalytic activity/Vol] 76 U/L 45-117 [facility] Serum or plasma calcium janusz urement (mass/volume)Ordered By: Kelvin Han on 07-19-2024 Calcium [Mass/Vol] 9.2 mg/dL 8.5-10.1 [facility] Serum or plasma creatinine m easurement (mass/volume)Ordered By: Kelvin Han on 07-19-2024 Creatinine [Mass/Vol] 1.47 mg/dL High 0.70-1.30 [facility] Comment on above: The validity of the calculated GFR & GFRAA in patients over 70 years has not been determined. Clinical correlation is essential. Serum or plasma thyroid stim ulating hormone (TSH) measurement (units/volume)Ordered By: Kelvin Han on 07-19-2024 TSH Qn 2.460 uIU/mL 0.358-3.740 [facility] Serum or plasma urea nitroge n measurement (mass/volume)Ordered By: Kelvin Han on 07-19-2024 Urea nitrogen [Mass/Vol] 24 mg/dL High 7-18 [facility] Sodium levelOrdered By: Panfilo Han on 07-19-2024 Sodium [Moles/Vol] 136 mmol/L 136-145 [facility] TSH QnOrdered By: Eduardo Han on 07-19-2024 Thyroid Stimulating Hormone (TSH) 2.460 uIU/mL 0.358-3.740 [facility] Thyroid Stim Hormone (TSH)on 07-19-2024 TSH 2.460 uIU/mL Normal 0.358-3.740 [facility] Comment on above: Order Comment: Inter face Comments:Hives reoccuringOrder Date: 07/19/24Order Info: 0786-1 - CMPOrder Info: 3016-3 - TSHComments: Hives reoccuring Performed By: #### L 500.4050, L100.0100, L501.9520 ####[facility] [address] [place], [address] Total proteinOrdered By: Yamila Han on 07-19-2024 Protein [Mass/Vol] 7.6 g/dL 6.4-8.2 [facility] White blood cell (WBC) count Ordered By: Kelvin Han on 07-19-2024 WBC (Bld) [#/Vol] 4.3 10*3/uL Low 4.4-11.0 [facility] Emergency Department Summary on 06-08-2024 Emergency Department Summary Normal [facility] CNOVon 05-11-2024 CNOV Office Visit (UROSMN) BARBARA MILAN ([id number]) 1945 M Date Time Provider Department 05/11/24 1:30 PM MATT GARCIA UROSMN During your visit today, we recorded the following information about you: Keiry Michaels CT 05/11/2024 1:59 PM Signed Patient ID with (2) Identifiers, Verified by: ESDRAS Good Actual procedure/procedure scheduled: Yes Performing provider/scheduled provider: Yes Patient was roomed in: Q9- 07 Utility Tender Carding offered:Patient declines Patient arrived in the room [...] Education Session: None Instruction Provided To: Patient Safety Consultant Present: no Discipline: Nursing Learning Topic: SURVIVAL [...] if at all possible Matt Garcia MD [facility], [place] 05/11/2024 2:03 PM Signed UNIVERSAL PROTOCOL / [...] patient an (more content not included)... [facility] ANES POSTPROC EVALon 024 ANES POSTPROC EVAL HNO ID: [id number] Author: MARKO STUART MD Service: ? Author Type: Anesthesiologist Type: Anesthesia Postprocedure Evaluation Filed: 04/02/2024 16:36 Note Text: POST ANESTHESIA EVALUATION NOTE : 1945 Procedure Summary Date: 04/02/24 Room / Location: [address] [facility] Anesthesia Start: 1305 Anesthesia Stop: 1446 Procedures: [...] April 02, 2024 TIME: 4:34 PM CSN: [id number] [facility] ANES PRE-OPon 04-02-2024 ANES PRE-OP HNO ID: [id number] Author: KAVIN CONTE MD Service: ? Author Type: Anesthesiologist Type: [...] and consent discussed: yes. Patient / Responsible Republican agrees to proceed: yes Patient / Surrogate [...] tablet by mouth twice daily. mv with ogg-UG-ddqptpky-gink go (ONE-A-DAY MEN'S 50+ ADVANTAGE) 400-300-120 mcg-mcg-mg [...] April 02, 2024 TIME: 1:04 PM CSN: [id number] [facility] HISTORY PHYSICALon HISTORY PHYSICAL HNO ID: [id number] Author: MATT GARCIA MD Service: Urology Author [...] not taking: Reported on 12/16/2023) mv with jyf-OS-uizwdozx-gink go (ONE-A-DAY MEN'S 50+ ADVANTAGE) 400-300-120 mcg-mcg-mg [...] 3. ----- Margie Khan MD Urology, PGY6 [phone] 12:18 PM April 02, 2024 Please page urology telephone claims representative pager, [phone], after 5PM and on weekends [facility] OPERATIVE NOon 04-02-2024 OPERATIVE NO HNO ID: [id number] Author: MATT GARCIA MD Service: Urology Author [...] Garcia MD Associate Staff, Department of Urology [facility] [place] OPERATIVE/PROCEDURE REPORT LOG ID: [id number] Surgery/Procedure Date: 04/02/2024 Incision/Procedure Start Time: 1:33 PM Incision Close/Procedure End Time: 8:13 PM Surgeon(s)/Procedura list(s) and Content Producer(s): Surgeons and Role: * Matt Garcia MD [...] was left in place. A 10 Fr [place] tip catheter was advanced over the wire [...] * Implantable Devices: None Drains: 20 Fr [place] tip Worthy catheter (per urethra) 16 Fr SPT Complications: None Qualifier: None Post-Operative Plan: -Urethral worthy out in 3 days, continue cipro until worthy out -Cap SPT after urethral worthy removed to attempt voiding per urethra -Follow up in 2 months for cystoscopy The primary surgeon/proceduralis t performed the entire procedure with assistance. Margie Khan MD dictating on behalf of Matt Garcia MD [facility] 03-28-2024 [facility] Telephone (UROZander) BARBARA MILAN ([id number]) 1945 M Date Time Provider Department 03/28/24 [...] procedure with Dr. Hernandezp: 10 tabletRfl: 0 Prescriptions as of 03/28/2024 [...] intramuscularly every 4 months. - mv with aee-LV-xrdokjge-gink go (ONE-A-DAY MEN'S 50+ ADVANTAGE) 400-300-120 mcg-mcg-mg [...] Status:Closed by AMALIA CHILDERS on 03/28/24 [facility] Emergency Department Summary on 03-23-2024 Emergency Department Summary Normal [facility] CBC panel Auto (Bld)on 03-02 Erythrocyte distribution width (RBC) [Ratio] 13.0 % Normal 11.5-15.0 [facility] Comment on above: Order Comment: Speci men Type: BLOOD SPECIMENOrdering Facility: [facility] Address: [address] [place] [address] Performed By: #### 5 8410-2 ####[facility] LABIA [id number] [place] [address] [place] Hematocrit (Bld) [Volume fraction] 33.7 % Low 39.0-51.0 [facility] Comment on above: Order Comment: Speci men Type: BLOOD SPECIMENOrdering Facility: [facility] Address: [address] [place] [address] Performed By: #### 5 8410-2 ####[facility] LABCLIA [id number] [place] [id number] [place] Hemoglobin (Bld) [Mass/Vol] 10.6 g/dL Low 13.0-17.0 [facility] Comment on above: Order Comment: Speci men Type: BLOOD SPECIMENOrdering Facility: [facility] Address: [address] [place] [address] Performed By: #### 5 8410-2 ####[facility] LABCLIA [id number] [place] [address] [place] MCH (RBC) [Entitic mass] 28.2 pg Normal 26.0-34.0 [facility] Comment on above: Order Comment: Speci men Type: BLOOD SPECIMENOrdering Facility: [facility] Address: [address] [place] [address] Performed By: #### 5 8410-2 ####[facility] [id number] [place] [address] [place] MCHC (RBC) [Mass/Vol] 31.5 g/dL Normal 30.5-36.0 [facility] Comment on above: Order Comment: Speci men Type: BLOOD SPECIMENOrdering Facility: [facility] Address: [address] [place] [address] Performed By: #### 5 8410-2 ####[facility] [id number] [place] [address] [place] MCV (RBC) [Entitic vol] 89.6 fL Normal 80.0-100.0 [facility] Comment on above: Order Comment: Speci men Type: BLOOD SPECIMENOrdering Facility: [facility] Address: [address] [place] [address] Performed By: #### 5 8410-2 ####[facility] [id number] [place] [address] [place] Nucleated RBC (Bld) [#/Vol] 10*3/uL Normal <0.01 [facility] Comment on above: Order Comment: Speci men Type: BLOOD SPECIMENOrdering Facility: [facility] Address: [address] [place] [address] Performed By: #### 5 8410-2 ####[facility] [id number] [place] [address] [place] Platelet mean volume (Bld) [Entitic vol] 10.3 fL Normal 9.0-12.7 [facility] Comment on above: Order Comment: Speci men Type: BLOOD SPECIMENOrdering Facility: [facility] Address: [address] [place] [address] Performed By: #### 5 8410-2 ####[facility] LABIA [id number] [place] [address] [place] Platelets (Bld) [#/Vol] 292 10*3/uL Normal 150-400 [facility] Comment on above: Order Comment: Speci men Type: BLOOD SPECIMENOrdering Facility: [facility] Address: [address] [place] [address] Performed By: #### 5 8410-2 ####[facility] LABIA [id number] [place] [address] [place] RBC (Bld) [#/Vol] 3.76 10*6/uL Low 4.20-6.00 [facility] Comment on above: Order Comment: Speci men Type: BLOOD SPECIMENOrdering Facility: [facility] Address: [address] [place] [address] Performed By: #### 5 8410-2 ####[facility] LABIA [id number] [place] [address] [place] WBC (Bld) [#/Vol] 6.35 10*3/uL Normal 3.70-11.00 [facility] Comment on above: Order Comment: Speci men Type: BLOOD SPECIMENOrdering Facility: [facility] Address: [address] [place] [address] Performed By: #### 5 8410-2 ####[facility] LABIA [id number] [place] [address] [place] CNNURSEon 03-02-2024 CNNURSE Nurse Visit (UROLMN) BARBARA MILAN ([id number]) 1945 M Date Time Provider Department 03/02/24 [...] (RECOMMENDATION): None Supplies ordered and sent to [facility] medical. Electronically Signed By: Kenyetta Garcia LPN [...] LPN - Fully Assessed Reason for Visit: [facility] Teaching [342] Primary Visit Diagnosis:Stricture of bladder [...] intramuscularly every 4 months. - mv with fpg-IN-tgcztmpd-gink go (ONE-A-DAY MEN'S 50+ ADVANTAGE) 400-300-120 mcg-mcg-mg [...] Status:Closed by KENYETTA GARCIA on 03/02/24 [facility] Comprehensive metabolic 2000 panelon 03-02-2024 Albumin [Mass/Vol] 4.0 g/dL Normal 3.9-4.[address] [facility] Comment on above: Order Comment: Speci men Type: BLOOD SPECIMENOrdering Facility: [facility] Address: [address] [place] [address] Performed By: #### 2 4323-8 ####[facility] LABCLIA [id number] [place] [address] [place] ALP [Catalytic activity/Vol] 86 U/L Normal 38-113 [facility] Comment on above: Order Comment: Speci men Type: BLOOD SPECIMENOrdering Facility: [facility] Address: [address] [place] [address] Performed By: #### 2 4323-8 ####[facility] LABCLIA [id number] [place] [address] [place] ALT [Catalytic activity/Vol] 11 U/L Normal 10-54 [facility] Comment on above: Order Comment: Speci men Type: BLOOD SPECIMENOrdering Facility: [facility] Address: [address] [place] [address] Performed By: #### 2 4323-8 ####[facility] LABCLIA [id number] [place] [address] [place] Anion gap [Moles/Vol] 11 mmol/L Normal 8-15 [facility] Comment on above: Order Comment: Speci men Type: BLOOD SPECIMENOrdering Facility: [facility] Address: [address] [place] [id number] Performed By: #### 2 4323-8 ####[facility] LABCLIA [id number] [place] [address] [place] AST [Catalytic activity/Vol] 19 U/L Normal 14-40 [facility] Comment on above: Order Comment: Speci men Type: BLOOD SPECIMENOrdering Facility: [facility] Address: [address] [place] [address] Performed By: #### 2 4323-8 ####[facility] LABCLIA [id number] [place] [address] [place] Bilirubin [Mass/Vol] 0.2 mg/dL Normal 0.2-1.3 [facility] Comment on above: Order Comment: Speci men Type: BLOOD SPECIMENOrdering Facility: [facility] Address: [address] [place] [address] Performed By: #### 2 4323-8 ####[facility] LABCLIA [id number] [place] [address] [place] Calcium [Mass/Vol] 9.6 mg/dL Normal 8.5-10.[address] [facility] Comment on above: Order Comment: Speci men Type: BLOOD SPECIMENOrdering Facility: [facility] Address: [address] [place], [place] [address] Performed By: #### 2 4323-8 ####[facility] LABCLIA [id number] [place] [id number] [place] Chloride [Moles/Vol] 105 mmol/L Normal 98-107 [facility] Comment on above: Order Comment: Speci men Type: BLOOD SPECIMENOrdering Facility: [facility] Address: [address] [place] [address] Performed By: #### 2 4323-8 ####[facility] LABCLIA [id number] [place] [address] [place] CO2 [Moles/Vol] 23 mmol/L Normal 22-30 [facility] Comment on above: Order Comment: Speci men Type: BLOOD SPECIMENOrdering Facility: [facility] Address: [address] [place] [address] Performed By: #### 2 4323-8 ####[facility] LABCLIA [id number] [place] [address] [place] Creatinine [Mass/Vol] 1.16 mg/dL Normal 0.73-1.22 [facility] Comment on above: Order Comment: Speci men Type: BLOOD SPECIMENOrdering Facility: [facility] Address: [address] [place] [address] Performed By: #### 2 4323-8 ####[facility] LABCLIA [id number] [place] [address] [place] Creatinine and Glomerular filtration rate.predicted panel (S/P/Bld) 65 mL/min/1.73m??? Normal >=60 [facility] Comment on above: Order Comment: Speci men Type: BLOOD SPECIMENOrdering Facility: [facility] Address: [address] [place] [address] Result Comment: Christy mated Glomerular Filtration Rate [...] actual GFR. Performed By: #### 2 4323-8 ####[facility] LABCLIA [id number] [place] [address] [place] Glucose [Mass/Vol] 101 mg/dL High 74-[address] [facility] Comment on above: Order Comment: Speci men Type: BLOOD SPECIMENOrdering Facility: [facility] Address: [address] [place] [address] Result Comment: The [place] Diabetes Association (ADA) provides guidance for cutoff [...] Standards of Medical Care in Diabetes 2016, [place] [employer] Association. Diabetes Care. 2016.39(Suppl 1). Performed By: #### 2 4323-8 ####[facility] LABCLIA [id number] [place] [address] [place] Potassium [Moles/Vol] 4.7 mmol/L Normal 3.7-5.1 [facility] Comment on above: Order Comment: Speci men Type: BLOOD SPECIMENOrdering Facility: [facility] Address: [address] [place] [address] Performed By: #### 2 4323-8 ####[facility] LABCLIA [id number] [place] [address] [place] Protein [Mass/Vol] 7.3 g/dL Normal 6.3-8.[address] [facility] Comment on above: Order Comment: Speci men Type: BLOOD SPECIMENOrdering Facility: [facility] Address: [address] [place] [address] Performed By: #### 2 4323-8 ####[facility] LABCLIA [id number] [place] [address] [place] Sodium [Moles/Vol] 139 mmol/L Normal 136-[address] [facility] Comment on above: Order Comment: Speci men Type: BLOOD SPECIMENOrdering Facility: [facility] Address: [address] [place] [address] Performed By: #### 2 4323-8 ####[facility] LABCLIA [id number] [place] [address] [place] Urea nitrogen [Mass/Vol] 24 mg/dL Normal 9- [facility] Comment on above: Order Comment: Speci men Type: BLOOD SPECIMENOrdering Facility: [facility] Address: [address] [place] [address] Performed By: #### 2 4323-8 ####[facility] LABCLIA [id number] [place] [address] [place] HISTORY PHYSICALon HISTORY PHYSICAL HNO ID: [id number] Author: DIO JAVIER MD Service: ? Author [...] -Completed outpatient hyperbaric oxygen therapy 03/01 at [facility] for hematuria/friable, bleeding mucosa over the bladder neck seen on cysto -Has had additional clot evacs and bladder neck incisions this past year at [facility], had laser BNI November 13 2023 -Recent Admission early February at [facility] for gross hematuria- underwent cystoscopy on 02/11 [...] equal to 35 kg/m2 STOP-Bang Score: 4 [id number] Score: Hypertension history: Yes [id number] Score: ANESTHESIA FINDINGS: Intubation History: No abnormal [...] Admin: COVID-19 vaccine, age 12+ yr, season ([place]) 03/06/2022 Outside Immunization: COVID-19, mRNA, LNP-S, PF, [...] loss, malaise (more content not included)... [facility] URINE, PRESURGICAL STERILIZA TION CULTUREon 03-02-2024 URINE, PRESURGICAL STERILIZATION CULTURE ORGANISM ID: 1 >=100,000 CFU/ml Providencia rettgeri ORGANISM ID: 2 10,000 -<50,000 CFU/ml Klebsiella oxytoca ORGANISM ID: 3 >=100,000 CFU/ml Proteus vulgaris Call the lab ([phone]) within 72 h if susceptibility testing for [...] , Resistant >=1 Nitrofurantoin R F Abnormal [facility] Comment on above: Performed By: #### U PRESR ####[facility] LABIA [id number] [address] [place] CNPRachael 02-28-2024 CNPN Telephone (UROLMN) BARBARA MILAN ([id number]) 1945 M Date Time Provider Department 02/28/24 [...] about HBOT, then she has to call [phone] to scheduled an assessment with their providers. The locations available are [facility], [facility], [facility]. Can you call and let her know? I can call in between patients. MARTHAV ----- Message ----- From: Erin Kraft MA [...] intramuscularly every 4 months. - mv with yiy-TV-iiqbvdut-gink go (ONE-A-DAY MEN'S 50+ ADVANTAGE) 400-300-120 mcg-mcg-mg [...] Encounter Status:Closed by AMALIA SHAH [facility] ([id number]) 1945 M Date Time Provider Department 02/28/24 [facility] During your visit today, we recorded the following information about you: Allergies As of Date: 02/28/2024 Noted Allergy Reaction 8-AMINOQUINOLINES 12/23/2023 ATENOLOL 12/22/2004 16 - Unknown HYDROCHLOROTHIAZIDE 12/22/2004 16 - Unknown INDOCIN (INDOMETHACIN SODIUM) 07/28/2012 8 - GI Upset LOSARTAN POTASSIUM 08/19/2014 4 - Hives SULFA (SULFONAMIDE ANTIBIOTICS) 12/22/2004 4 - Hives Date Reviewed: 02/24/2024 Reviewed by: Oscar Hurt, RN - Fully Assessed Prescriptions as of 02/28/2024 [...] intramuscularly every 4 months. - mv with jdq-NR-vvljhpdw-gink go (ONE-A-DAY MEN'S 50+ ADVANTAGE) 400-300-120 mcg-mcg-mg [...] Status:Closed by AMALIA SHAH on 02/28/24 [facility] CNOVon 02-24-2024 CNOV Office Visit (UROSMN) KAYLIBARBARA SANTAMARIA ([id number]) 1945 M Date Time Provider Department 02/24/24 1:00 PM MATT GARCIA URON During your visit today, we recorded the [...] provider/scheduled provider: Yes Patient was roomed in: 9- 11 Utility Tender Carding offered:Patient declines Patient arrived in the room [...] Education Session: None Instruction Provided To: Patient Safety Consultant Present: not applicable Discipline: Nursing Learning Topic: SURVIVAL SKILLS: Complication Prevention Symptom Management Patient Evaluation: Verbalizes understanding: Yes Supplemental Material Given: Written Material Instructed By Oscar Hurt RN In Department Urology . Matt Garcia MD 02/24/2024 1:41 PM Addendum Cystoscopy showed scar tissue at t (more content not included)... [facility] UA DIP, URINE (POC)on 2023 BILIRUBIN UA (POCT) Negative Negative [facility] CLARITY UA (POCT) Cloudy [facility] COLOR UA (POCT) Yellow [facility] GLUCOSE UA (POCT) Negative Negative mg/dL [facility] Hemoglobin Ql (U) Large Abnormal Negative [facility] Interpretation and review of laboratory results Abnormal [facility] KETONE UA (POCT) Negative Negative mg/dL [facility] LEUKOCYTES UA (POCT) Large Abnormal Negative [facility] NITRITE UA (POCT) Positive Abnormal Negative [facility] PH UA (POCT) 6.0 4.5 - 8.0 [facility] Protein Ql (U) 100 mg/dL Abnormal Negative [facility] SPECIFIC GRAVITY UA (POCT) 1.020 1.005 - 1.030 [facility] UROBILINOGEN UA (POCT) 0.2 Carmita l E.U./dL [facility] Location:[facility], [address] [place] [address] POINT OF CARE [facility] CNOVon 12-23-2023 CNOV Office Visit (UROSMN) BARBARA MILAN ([id number]) 1945 M Date Time Provider Department 12/23/23 1:00 PM MATT GARCIA URONIKITA During your visit today, we recorded the following information about you: Leroy Kline RN 12/23/2023 4:03 PM Signed Actual procedure/procedure scheduled: Yes Performing provider/scheduled provider: Yes Patient was roomed in: [facility] Utility Tender Carding offered:Patient declines Patient arrived in the room [...] Sight: Corrective lenses Instruction Provided To: Patient Safety Consultant Present: not applicable Discipline: Nursing Learning Topic: SURVIVAL SKILLS: Complication Prevention Symptom Management Patient Evaluation: Verbalizes understanding: Yes Supplemental Material Given: Written Material Instructed By Leroy Kline RN In Department Urology . Matt Garcia MD 12/23/2023 5:13 PM Signed PHYSICIAN'S NOTE: Procedure: Cystoscopy Epic notes reviewed: yes Mr. Milan is a 78 year old male with a history of [place] 9 prostate cancer sp RP 2011 and [...] Out [employer] (more content not included)... [facility] CNOVon 12-16-2023 CNOV Office Visit (UROLMN) BARBARA MILAN ([id number]) 1945 M Date Time Provider Department 12/16/23 8:00 AM MATT GARCIA During your visit today, we recorded the following information about you: Pulse Blood pressure Weight 100/minute 121/75 84.4 kg Matt Garcia MD 12/16/2023 9:10 AM Signed [facility] UROLOGY NEW PATIENT [...] still in now Multiple ER visits in [facility] for hematuria, retention CKD Cr 1.3 (last Feb 2023) No recent upper tract imaging On Lupron Before this 3 depends a day Less wet at night but still wears a depends Not horribly bothered by this - would prefer incontinence to having a catheter No pelvic pain, no difficulty walking No fever, chills No UTI PMH: otherwise healthy PSH: RALP Here with his [employer] Daughter in law, Melinda (RN) on speaker [...] not taking: Reported on 12/16/2023) mv with jcs-JX-gmwlcqzd-gink go (ONE-A-DAY MEN'S 50+ ADVANTAGE) 400-300-120 mcg-mcg-mg [...] with retu (more content not included)... [facility] Basophil percentageOrdered B y: Columba Decker on 10-15-2023 Basophil percentage 0 SEEN /hpf 0-5 [facility] Bilirubin Test strip Ql (U)O rdered By: Columba Decker on 10-15-2023 Bilirubin Ql (U) Negative Negative [facility] Ketones Test strip Ql (U)Ord ered By: Columba Decker on 10-15-2023 Ketones Ql (U) Negative Negative [facility] Mucus LM Ql (Urine sed)Order ed By: Columba Decker on 10-15-2023 Mucus Ql (Urine sed) 0 SEEN /hpf [facility] Nitrite Test strip Ql (U)Ord ered By: Columba Decker on 10-15-2023 Nitrite Ql (U) Negative Negative [facility] No Panel InformationOrdered By: Columba Decker on 10-15-2023 Urine RBC 10-25 SEEN /hpf 0-5 [facility] Protein Test strip Ql (U)Ord ered By: Columba Decker on 10-15-2023 Protein Ql (U) Negative Negative [facility] Squamous epithelial cells de tection in urine sediment by light microscopyOrdered By: Columba Decker on 10-15-2023 Epithelial cells.squamous LM Ql (Urine sed) 0 SEEN /hpf 0-5 [facility] Urine blood detectionOrdered By: Columab Decker on 10-15-2023 RBC Ql (U) 250 /ul Negative [facility] Urine clarityOrdered By: Chana Decker on 10-15-2023 Clarity (U) Clear Clear [facility] Urine color determinationOrd ered By: Columba Decker on 10-15-2023 Color (U) Yellow Yellow [facility] Urine glucose detectionOrder ed By: Columba Decker on 10-15-2023 Glucose Ql (U) Normal mg/dl Normal [facility] Urine leukocyte esterase det ection by dipstickOrdered By: Columba Decker on 10-15-2023 Leukocyte esterase Test strip Ql (U) 25 /ul Negative [facility] Urine pHOrdered By: Columba Decker on 10-15-2023 pH (U) 6.0 [pH] 5.0 - 8.0 [facility] Urine sediment bacteria coun t by microscopy (number/high power field)Ordered By: Columba Decker on 10-15-2023 Bacteria LM.HPF (Urine sed) [#/Area] 0 /[HPF] None Seen [facility] Urine specific gravity measu rementOrdered By: Columba Decker on 10-15-2023 Specific gravity (U) [Rel density] 1.015 1.002-1.030 [facility] Urine urobilinogen measureme ntOrdered By: Columba Decker on 10-15-2023 Urobilinogen Ql (U) Normal mg/dl Normal [facility] Basophil percentageOrdered B y: Zhao Gilliland on 06-27-2023 Basophil percentage < 0.01 ng/mL 0.0-4.0 [facility] Comment on above: This test was perfor med using the TPSA assay method for the[employer] chemistry system. Values obtained with differentassay methods cannot be used interchangably.When changing PSA assays in the course of monitoring apatient, additional sequential testing should be carriedout to confirm baseline values. Absolute lymphocyte countOrd ered By: Eduardo Han on 04-04-2023 Lymphocytes Auto (Unsp spec) [#/Vol] 0.71 10*3/uL 0.83-4.51 [facility] Basophil percentageOrdered B y: Eduardo Han on 04-04-2023 Basophils/100 WBC (Bld) 0.6 % 0-1 [facility] Chloride [Moles/Vol] 108 mmol/L 98-107 [facility] Eosinophils/100 WBC (Bld) 5.2 % 0-5 [facility] Glucose [Mass/Vol] 159 mg/dL 74-106 [facility] Comment on above: Fasting Glucose resu lt greater than or equal to 126 mg/dL suggests DIABETES MELLITUS per A.D.A. criteria. Neutrophils (Bld) [#/Vol] 4.9 10*3/uL 2.0-7.7 [facility] Neutrophils/100 WBC (Bld) 73.4 % 47-70 [facility] Potassium [Moles/Vol] 4.4 mmol/L 3.5-5.1 [facility] Sodium [Moles/Vol] 135 mmol/L 136-145 [facility] WBC (Bld) [#/Vol] 6.6 10*3/uL 4.4-11.0 [facility] Blood erythrocytes count (nu mber/volume)Ordered By: Eduardo Han on 04-04-2023 RBC (Bld) [#/Vol] 3.88 10*6/uL 4.6-6.2 [facility] Blood hemoglobin measurement (mass/volume)Ordered By: Eduardo Han on 04-04-2023 Hemoglobin (Bld) [Mass/Vol] 11.1 g/dL 13.0-16.5 [facility] Blood lymphocytes/100 leukoc ytesOrdered By: Eduardo Han on 04-04-2023 Lymphocytes/100 WBC (Bld) 10.8 % 19-41 [facility] Blood monocytes/100 leukocyt esOrdered By: Eduardo Han on 04-04-2023 Monocytes/100 WBC (Bld) 9.4 % 0-10 [facility] Blood platelet mean volumeOr dered By: Eduardo Han on 04-04-2023 Platelet mean volume (Bld) [Entitic vol] 10.9 fL 6.2-12.0 [facility] Determination of erythrocyte mean corpuscular volume (MCV)Ordered By: Eduardo Han on 04-04-2023 MCV (RBC) [Entitic vol] 93.0 fL 80-94 [facility] Hematocrit Auto (Bld) [Volum e fraction]Ordered By: Eduardo Han on 04-04-2023 Hematocrit (Bld) [Volume fraction] 36.1 % 40-54 [facility] Iron measurement (mass/mass) Ordered By: Eduardo Han on 04-04-2023 Iron (Unsp spec) [Mass/Mass] 86 ug/dL 65-175 [facility] - Chemistry and C hemistry - challengeOrdered By: Eduardo Han on 04-04-2023 CO2 [Moles/Vol] 23.0 mmol/L 21.0-32.0 [facility] Urea nitrogen/Creatinine [Mass ratio] 18.4 mg/mg 10-20 [facility] - Hematology and Cell countsOrdered By: Eduardo Han on 04-04-2023 Erythrocyte distribution width (RBC) [Entitic vol] 49.9 fL 35.1-43.9 [facility] Erythrocyte distribution width (RBC) [Ratio] 14.7 % 11.6-14.6 [facility] Immature granulocytes/100 WBC (Bld) 0.600 % 0.0-0.9 [facility] Comment on above: IG% - Immature Granu locytes (promyelocytes, myelocytes and metamyelocytes) > 1% indicates that a LEFT SHIFT is Present. MCH (RBC) [Entitic mass] 28.6 pg 27.0-32.0 [facility] Nucleated RBC/100 WBC (Bld) [Ratio] 0 % 0-5 [facility] MCHC Auto (RBC) [Mass/Vol]Or dered By: Eduardo Han on 04-04-2023 MCHC (RBC) [Mass/Vol] 30.7 g/dL 32-36 [facility] No Panel InformationOrdered By: Eduardo Han on 04-04-2023 Estimated GFR (MDRD) Amer 72 mL/min >60 [facility] Comment on above: GFR Calc Estimated GFR (MDRD) Non-Af Amer 60 mL/min >60 [facility] Comment on above: Non- GFR Calc Platelets bldOrdered By: Yamila Han on 04-04-2023 Platelets (Bld) [#/Vol] 273 10*3/uL 150-450 [facility] Serum or plasma calcium janusz urement (mass/volume)Ordered By: Eduardo Han on 04-04-2023 Calcium [Mass/Vol] 8.8 mg/dL 8.5-10.1 [facility] Serum or plasma creatinine m easurement (mass/volume)Ordered By: Eduardo Han on 04-04-2023 Creatinine [Mass/Vol] 1.25 mg/dL 0.70-1.30 [facility] Comment on above: The validity of the calculated GFR & GFRAA in patients over 70 years has not been determined. Clinical correlation is essential. Serum or plasma ferritin lakeshia surement (mass/volume)Ordered By: Eduardo Han on 04-04-2023 Ferritin [Mass/Vol] 60 ng/mL 26-388 [facility] Serum or plasma urea nitroge n measurement (mass/volume)Ordered By: Eduardo Han on 04-04-2023 Urea nitrogen [Mass/Vol] 23 mg/dL 7-18 [facility] Thin prep Papanicolaou smear with manual screeningOrdered By: Eduardo Han on 04-04-2023 Thin prep Papanicolaou smear with manual screening 4 5-15 [facility] Absolute lymphocyte countOrd ered By: Mannie Chandler on 03-01-2023 Lymphocytes Auto (Unsp spec) [#/Vol] 0.74 10*3/uL 0.83-4.51 [facility] Absolute lymphocyte countOrd ered By: Eduardo Han on 03-01-2023 Lymphocytes Auto (Unsp spec) [#/Vol] 1.08 10*3/uL 0.83-4.51 [facility] Basophil percentageOrdered B y: Mannie Chandler on 03-01-2023 Basophils/100 WBC (Bld) 0.4 % 0-1 [facility] Chloride [Moles/Vol] 106 mmol/L 98-107 [facility] Eosinophils/100 WBC (Bld) 2.2 % 0-5 [facility] Glucose [Mass/Vol] 121 mg/dL 74-106 [facility] Comment on above: Fasting Glucose resu lt from 100 to 125 mg/dL suggests IMPAIRED HOMEOSTASIS per A.D.A. criteria. Neutrophils (Bld) [#/Vol] 7.6 10*3/uL 2.0-7.7 [facility] Neutrophils/100 WBC (Bld) 81.6 % 47-70 [facility] Potassium [Moles/Vol] 4.3 mmol/L 3.5-5.1 [facility] Sodium [Moles/Vol] 135 mmol/L 136-145 [facility] WBC (Bld) [#/Vol] 9.3 10*3/uL 4.4-11.0 [facility] Basophil percentageOrdered B y: Eduardo Han on 03-01-2023 Basophils/100 WBC (Bld) 0.6 % 0-1 [facility] Bilirubin [Mass/Vol] 0.20 mg/dL 0.20-1.00 [facility] Comment on above: For patients on eltr ombopag therapy, use of Dimension [place] TBIL is not recommended. Chloride [Moles/Vol] 107 mmol/L 98-107 [facility] Cholesterol [Mass/Vol] 127 mg/dL <200 [facility] Comment on above: <200 mg/dL Desirable 200-240 mg/dL Borderline >240 mg/dL High Risk Eosinophils/100 WBC (Bld) 3.2 % 0-5 [facility] Glucose [Mass/Vol] 120 mg/dL 74-106 [facility] Comment on above: Fasting Glucose resu lt from 100 to 125 mg/dL suggests IMPAIRED HOMEOSTASIS per A.D.A. criteria. Neutrophils (Bld) [#/Vol] 6.7 10*3/uL 2.0-7.7 [facility] Neutrophils/100 WBC (Bld) 75.8 % 47-70 [facility] Potassium [Moles/Vol] 4.3 mmol/L 3.5-5.1 [facility] Protein [Mass/Vol] 7.5 g/dL 6.4-8.2 [facility] Sodium [Moles/Vol] 138 mmol/L 136-145 [facility] Triglyceride [Mass/Vol] 104 mg/dL <199 [facility] Comment on above: The drugs N-Acetylcy steine and Metamizole may falsely depress this assay.Serum Triglycerides Reference Interval Normal <150 mg/dL Borderline high 150 - 199 mg/dL High 200 - 499 mg/dL Very High > or = 500 mg/dL WBC (Bld) [#/Vol] 8.8 10*3/uL 4.4-11.0 [facility] Blood erythrocytes count (nu mber/volume)Ordered By: Mannie Chandler on 03-01-2023 RBC (Bld) [#/Vol] 3.04 10*6/uL 4.6-6.2 [facility] Blood erythrocytes count (nu mber/volume)Ordered By: Eduardo Han on 03-01-2023 RBC (Bld) [#/Vol] 3.20 10*6/uL 4.6-6.2 [facility] Blood hemoglobin measurement (mass/volume)Ordered By: Mannie Chandler on 03-01-2023 Hemoglobin (Bld) [Mass/Vol] 8.9 g/dL 13.0-16.5 [facility] Blood hemoglobin measurement (mass/volume)Ordered By: Eduardo Han on 03-01-2023 Hemoglobin (Bld) [Mass/Vol] 9.4 g/dL 13.0-16.5 [facility] Blood lymphocytes/100 leukoc ytesOrdered By: Mannie Chandler on 03-01-2023 Lymphocytes/100 WBC (Bld) 8.0 % - [facility] Blood lymphocytes/100 leukoc ytesOrdered By: Eduardo Han on 03-01-2023 Lymphocytes/100 WBC (Bld) 12.2 % -41 [facility] Blood monocytes/100 leukocyt esOrdered By: Mannie Chandler on 03-01-2023 Monocytes/100 WBC (Bld) 6.9 % 0-10 [facility] Blood monocytes/100 leukocyt esOrdered By: Eduardo Han on 03-01-2023 Monocytes/100 WBC (Bld) 7.5 % 0-10 [facility] Blood platelet mean volumeOr dered By: Mannie Chandler on 03-01-2023 Platelet mean volume (Bld) [Entitic vol] 10.0 fL 6.2-12.0 [facility] Blood platelet mean volumeOr dered By: Eduardo Han on 03-01-2023 Platelet mean volume (Bld) [Entitic vol] 10.0 fL 6.2-12.0 [facility] Determination of erythrocyte mean corpuscular volume (MCV)Ordered By: Mannie Chandler on 03-01-2023 MCV (RBC) [Entitic vol] 89.1 fL 80-94 [facility] Determination of erythrocyte mean corpuscular volume (MCV)Ordered By: Eduardo Han on 03-01-2023 MCV (RBC) [Entitic vol] 90.9 fL 80-94 [facility] Hematocrit Auto (Bld) [Volum e fraction]Ordered By: Mannie Chandler on 03-01-2023 Hematocrit (Bld) [Volume fraction] 27.1 % 40-54 [facility] Hematocrit Auto (Bld) [Volum e fraction]Ordered By: Eduardo Han on 03-01-2023 Hematocrit (Bld) [Volume fraction] 29.1 % 40-54 [facility] Hemoglobin in reticulocytes (mass per reticulocyte)Ordered By: Eduardo Han on 03-01-2023 Hemoglobin (Reticulocytes) [Entitic mass] 28.5 pg 30-35 [facility] Iron measurement (mass/mass) Ordered By: Eduardo Han on 03-01-2023 Iron (Unsp spec) [Mass/Mass] 21 ug/dL 65-175 [facility] - Chemistry and C hemistry - challengeOrdered By: Mannie Chandler on 03-01-2023 CO2 [Moles/Vol] 23.0 mmol/L 21.0-32.0 [facility] Natriuretic peptide B (Bld) [Mass/Vol] 23.5 pg/mL 0-100 [facility] Urea nitrogen/Creatinine [Mass ratio] 18.2 mg/mg 10-20 [facility] - Chemistry and C hemistry - challengeOrdered By: Eduardo Han on 03-01-2023 ALP [Catalytic activity/Vol] 85 U/L 45-117 [facility] ALT [Catalytic activity/Vol] 24 U/L 16-61 [facility] CO2 [Moles/Vol] 24.0 mmol/L 21.0-32.0 [facility] Globulin (S) [Mass/Vol] 4.5 g/dL 2.2-4.2 [facility] Urea nitrogen/Creatinine [Mass ratio] 18.4 mg/mg 10-20 [facility] - Hematology and Cell countsOrdered By: Mannie Chandler on 03-01-2023 Erythrocyte distribution width (RBC) [Entitic vol] 41.0 fL 35.1-43.9 [facility] Erythrocyte distribution width (RBC) [Ratio] 12.6 % 11.6-14.6 [facility] Immature granulocytes/100 WBC (Bld) 0.900 % 0.0-0.9 [facility] Comment on above: IG% - Immature Granu locytes (promyelocytes, myelocytes and metamyelocytes) > 1% indicates that a LEFT SHIFT is Present. MCH (RBC) [Entitic mass] 29.3 pg 27.0-32.0 [facility] Nucleated RBC/100 WBC (Bld) [Ratio] 0 % 0-5 [facility] - Hematology and Cell countsOrdered By: Eduardo Han on 03-01-2023 Erythrocyte distribution width (RBC) [Entitic vol] 42.4 fL 35.1-43.9 [facility] Erythrocyte distribution width (RBC) [Ratio] 12.7 % 11.6-14.6 [facility] Immature granulocytes/100 WBC (Bld) 0.700 % 0.0-0.9 [facility] Comment on above: IG% - Immature Granu locytes (promyelocytes, myelocytes and metamyelocytes) > 1% indicates that a LEFT SHIFT is Present. MCH (RBC) [Entitic mass] 29.4 pg 27.0-32.0 [facility] Nucleated RBC/100 WBC (Bld) [Ratio] 0 % 0- [facility] MCHC Auto (RBC) [Mass/Vol]Or dered By: Mannie Chandler on 03-01-2023 MCHC (RBC) [Mass/Vol] 32.8 g/dL 32-36 [facility] MCHC Auto (RBC) [Mass/Vol]Or dered By: Eduardo Han on 03-01-2023 MCHC (RBC) [Mass/Vol] 32.3 g/dL 32-36 [facility] No Panel InformationOrdered By: Mannie Chandler on 03-01-2023 Troponin I High Sensitivity 13 pg/mL 3.0-78.0 [facility] Comment on above: Please Note: [place] t Units and Gender Specific Reference Ranges. For more information see Policy Stat Procedure [place] High Sensitivity Troponin (TNIH) and attachments. Estimated Creatinine Clearance Calc 43.13 ml/min [facility] Estimated GFR (MDRD) Amer 60 mL/min >60 [facility] Comment on above: GFR Calc Estimated GFR (MDRD) Non-Af Amer 49 mL/min >60 [facility] Comment on above: Non- GFR Calc No Panel InformationOrdered By: Eduardo Han on 03-01-2023 Estimated GFR (MDRD) Amer 63 mL/min >60 [facility] Comment on above: GFR Calc Estimated GFR (MDRD) Non-Af Amer 52 mL/min >60 [facility] Comment on above: Non- GFR Calc Immature Reticulocyte Fraction 14.40 % 3.00-15.90 [facility] Reticulocyte Count 2.08 % 0.5-1.5 [facility] Total Iron Binding Capacity 266 ug/dL 250-450 [facility] Platelets bldOrdered By: Malissa Chandler on 03-01-2023 Platelets (Bld) [#/Vol] 414 10*3/uL 150-450 [facility] Platelets bldOrdered By: Yamila Han on 03-01-2023 Platelets (Bld) [#/Vol] 442 10*3/uL 150-450 [facility] Serum or plasma albumin janusz urement (mass/volume)Ordered By: Eduardo Han on 03-01-2023 Albumin [Mass/Vol] 3.0 g/dL 3.2-5.0 [facility] Serum or plasma albumin/glob ulin mass ratioOrdered By: Eduardo Han on 03-01-2023 Albumin/Globulin [Mass ratio] 0.7 {ratio} 0.9-2.4 [facility] Serum or plasma calcium janusz urement (mass/volume)Ordered By: Mannie Chandler on 03-01-2023 Calcium [Mass/Vol] 8.3 mg/dL 8.5-10.1 [facility] Serum or plasma calcium janusz urement (mass/volume)Ordered By: Eduardo Han on 03-01-2023 Calcium [Mass/Vol] 8.6 mg/dL 8.5-10.1 [facility] Serum or plasma cholesterol in HDL measurement (mass/volume)Ordered By: Eduardo Han on 03-01-2023 Cholesterol in HDL [Mass/Vol] 38 mg/dL >40 [facility] Comment on above: The drugs N-Acetylcy steine and Metamizole may falsely depress this assay. Reference Range HDL <40 mg/dL Low HDL Cholesterol HDL >or= 60 mg/dL High HDL Cholesterol Serum or plasma cholesterol in VLDL measurement (mass/volume)Ordered By: Eduardo Han on 03-01-2023 Cholesterol in VLDL [Mass/Vol] 21 mg/dL 5-40 [facility] Serum or plasma creatinine m easurement (mass/volume)Ordered By: Mannie Chandler on 03-01-2023 Creatinine [Mass/Vol] 1.48 mg/dL 0.70-1.30 [facility] Comment on above: The validity of the calculated GFR & GFRAA in patients over 70 years has not been determined. Clinical correlation is essential. Serum or plasma creatinine m easurement (mass/volume)Ordered By: Eduardo Han on 03-01-2023 Creatinine [Mass/Vol] 1.41 mg/dL 0.70-1.30 [facility] Comment on above: The validity of the calculated GFR & GFRAA in patients over 70 years has not been determined. Clinical correlation is essential. Serum or plasma ferritin lakeshia surement (mass/volume)Ordered By: Eduardo Han on 03-01-2023 Ferritin [Mass/Vol] 148 ng/mL 26-388 [facility] Serum or plasma low density lipoprotein (LDL) cholesterol measurement (mass/volume)Ordered By: Eduardo Han on 03-01-2023 Cholesterol in LDL [Mass/Vol] 68 mg/dL 0-130 [facility] Serum or plasma urea nitroge n measurement (mass/volume)Ordered By: Mannie Chandler on 03-01-2023 Urea nitrogen [Mass/Vol] 27 mg/dL 7-18 [facility] Serum or plasma urea nitroge n measurement (mass/volume)Ordered By: Eduardo Han on 03-01-2023 Urea nitrogen [Mass/Vol] 26 mg/dL 7-18 [facility] Thin prep Papanicolaou smear with manual screeningOrdered By: Mannie Chandler on 03-01-2023 Thin prep Papanicolaou smear with manual screening 6 5-15 [facility] Thin prep Papanicolaou smear with manual screeningOrdered By: Eduardo Han on 03-01-2023 Thin prep Papanicolaou smear with manual screening 17 U/L 15-37 [facility] Thin prep Papanicolaou smear with manual screening 7 5-15 [facility] CNPNon 02-21-2023 CNPN Telephone (UROLAE) BARBARA MILAN ([id number]) 1945 M Date Time Provider Department 02/21/23 MAX GREWAL During your visit today, we recorded the following information about you: Faith Keene RN 02/21/2023 8:[address] Grewal, You [...] Fully Assessed Reason for Visit: Patient Question [2147] Prescriptions as of 02/21/2023 - terazosin (HYTRIN) [...] intramuscularly every 4 months. - mv with [id number] go (ONE-A-DAY MEN'S 50+ ADVANTAGE) 400-300-120 mcg-mcg-mg [...] Encounter Status:Closed by FAITH KEENE on 02/21/23 [facility] Absolute lymphocyte countOrd ered By: Temi Macias on 02-19-2023 Lymphocytes Auto (Unsp spec) [#/Vol] 0.63 10*3/uL 0.83-4.51 [facility] Basophil percentageOrdered B y: Temi Macias on 02-19-2023 Basophils/100 WBC (Bld) 0.7 % 0-1 [facility] Chloride [Moles/Vol] 109 mmol/L 98-107 [facility] Eosinophils/100 WBC (Bld) 4.0 % 0-5 [facility] Glucose [Mass/Vol] 118 mg/dL 74-106 [facility] Comment on above: Fasting Glucose resu lt from 100 to 125 mg/dL suggests IMPAIRED HOMEOSTASIS per A.D.A. criteria. Neutrophils (Bld) [#/Vol] 5.2 10*3/uL 2.0-7.7 [facility] Neutrophils/100 WBC (Bld) 72.6 % 47-70 [facility] Potassium [Moles/Vol] 3.8 mmol/L 3.5-5.1 [facility] Sodium [Moles/Vol] 137 mmol/L 136-145 [facility] WBC (Bld) [#/Vol] 7.2 10*3/uL 4.4-11.0 [facility] Blood erythrocytes count (nu mber/volume)Ordered By: Temi Macias on 02-19-2023 RBC (Bld) [#/Vol] 2.78 10*6/uL 4.6-6.2 [facility] Blood hemoglobin measurement (mass/volume)Ordered By: Temi Macias on 02-19-2023 Hemoglobin (Bld) [Mass/Vol] 8.3 g/dL 13.0-16.5 [facility] Blood lymphocytes/100 leukoc ytesOrdered By: Temi Macias on 02-19-2023 Lymphocytes/100 WBC (Bld) 8.8 % 19-41 [facility] Blood monocytes/100 leukocyt esOrdered By: Temi Macias on 02-19-2023 Monocytes/100 WBC (Bld) 11.1 % 0-10 [facility] Blood platelet mean volumeOr dered By: Temi Macias on 02-19-2023 Platelet mean volume (Bld) [Entitic vol] 9.8 fL 6.2-12.0 [facility] Determination of erythrocyte mean corpuscular volume (MCV)Ordered By: Temi Macias on 02-19-2023 MCV (RBC) [Entitic vol] 92.4 fL 80-94 [facility] Hematocrit Auto (Bld) [Volum e fraction]Ordered By: Temi Macias on 02-19-2023 Hematocrit (Bld) [Volume fraction] 25.7 % 40-54 [facility] - Chemistry and C hemistry - challengeOrdered By: Temi Macias on 02-19-2023 CO2 [Moles/Vol] 22.0 mmol/L 21.0-32.0 [facility] Urea nitrogen/Creatinine [Mass ratio] 19.3 mg/mg 10-20 [facility] - Hematology and Cell countsOrdered By: Temi Macias on 02-19-2023 Erythrocyte distribution width (RBC) [Entitic vol] 42.6 fL 35.1-43.9 [facility] Erythrocyte distribution width (RBC) [Ratio] 12.4 % 11.6-14.6 [facility] Immature granulocytes/100 WBC (Bld) 2.800 % 0.0-0.9 [facility] Comment on above: IG% - Immature Granu locytes (promyelocytes, myelocytes and metamyelocytes) > 1% indicates that a LEFT SHIFT is Present. MCH (RBC) [Entitic mass] 29.9 pg 27.0-32.0 [facility] Nucleated RBC/100 WBC (Bld) [Ratio] 0.3 % 0-5 [facility] MCHC Auto (RBC) [Mass/Vol]Or dered By: Temi Macias on 02-19-2023 MCHC (RBC) [Mass/Vol] 32.3 g/dL 32-36 [facility] No Panel InformationOrdered By: Temi Macias on 02-19-2023 Estimated Creatinine Clearance Calc 55.99 ml/min [facility] Estimated GFR (MDRD) Amer 81 mL/min >60 [facility] Comment on above: GFR Calc Estimated GFR (MDRD) Non-Af Amer 67 mL/min >60 [facility] Comment on above: Non- GFR Calc Platelets bldOrdered By: Diana Macias on 02-19-2023 Platelets (Bld) [#/Vol] 435 10*3/uL 150-450 [facility] Serum or plasma calcium janusz urement (mass/volume)Ordered By: Temi Macias on 02-19-2023 Calcium [Mass/Vol] 8.0 mg/dL 8.5-10.1 [facility] Serum or plasma creatinine m easurement (mass/volume)Ordered By: Temi Macias on 02-19-2023 Creatinine [Mass/Vol] 1.14 mg/dL 0.70-1.30 [facility] Comment on above: The validity of the calculated GFR & GFRAA in patients over 70 years has not been determined. Clinical correlation is essential. Serum or plasma urea nitroge n measurement (mass/volume)Ordered By: Temi Macias on 02-19-2023 Urea nitrogen [Mass/Vol] 22 mg/dL 7-18 [facility] Thin prep Papanicolaou smear with manual screeningOrdered By: Temi Macias on 02-19-2023 Thin prep Papanicolaou smear with manual screening 6 5-15 [facility] Basophil percentageOrdered B y: Zhao Gilliland on 02-17-2023 WBC (Bld) [#/Vol] 8.7 10*3/uL 4.4-11.0 [facility] Blood erythrocytes count (nu mber/volume)Ordered By: Zhao Gilliland on 02-17-2023 RBC (Bld) [#/Vol] 2.65 10*6/uL 4.6-6.2 [facility] Blood hemoglobin measurement (mass/volume)Ordered By: Zhao Gilliland on 02-17-2023 Hemoglobin (Bld) [Mass/Vol] 8.2 g/dL 13.0-16.5 [facility] Blood platelet mean volumeOr dered By: Zhao Gilliland on 02-17-2023 Platelet mean volume (Bld) [Entitic vol] 10.0 fL 6.2-12.0 [facility] Determination of erythrocyte mean corpuscular volume (MCV)Ordered By: Zhao Gilliland on 02-17-2023 MCV (RBC) [Entitic vol] 92.8 fL 80-94 [facility] Hematocrit Auto (Bld) [Volum e fraction]Ordered By: Zhao Gilliland on 02-17-2023 Hematocrit (Bld) [Volume fraction] 24.6 % 40-54 [facility] - Hematology and Cell countsOrdered By: Zhao Gilliland on 02-17-2023 Erythrocyte distribution width (RBC) [Entitic vol] 42.8 fL 35.1-43.9 [facility] Erythrocyte distribution width (RBC) [Ratio] 12.6 % 11.6-14.6 [facility] MCH (RBC) [Entitic mass] 30.9 pg 27.0-32.0 [facility] MCHC Auto (RBC) [Mass/Vol]Or dered By: Zhao Gilliland on 02-17-2023 MCHC (RBC) [Mass/Vol] 33.3 g/dL 32-36 [facility] Platelets bldOrdered By: Dario Gilliland on 02-17-2023 Platelets (Bld) [#/Vol] 330 10*3/uL 150-450 [facility] Absolute lymphocyte countOrd ered By: Damian Melvin on 02-14-2023 Lymphocytes Auto (Unsp spec) [#/Vol] 0.50 10*3/uL 0.83-4.51 [facility] Basophil percentageOrdered B y: Damian Melvin on 02-14-2023 Basophils/100 WBC (Bld) 0.3 % 0-1 [facility] Chloride [Moles/Vol] 107 mmol/L 98-107 [facility] Eosinophils/100 WBC (Bld) 1.4 % 0-5 [facility] Glucose [Mass/Vol] 125 mg/dL 74-106 [facility] Comment on above: Fasting Glucose resu lt from 100 to 125 mg/dL suggests IMPAIRED HOMEOSTASIS per A.D.A. criteria. Neutrophils (Bld) [#/Vol] 6.2 10*3/uL 2.0-7.7 [facility] Neutrophils/100 WBC (Bld) 83.6 % 47-70 [facility] Potassium [Moles/Vol] 4.2 mmol/L 3.5-5.1 [facility] Sodium [Moles/Vol] 139 mmol/L 136-145 [facility] WBC (Bld) [#/Vol] 7.4 10*3/uL 4.4-11.0 [facility] Basophil percentage 0 SEEN /hpf 0-5 [facility] Bilirubin Test strip Ql (U)O rdered By: Damian Melvin on 02-14-2023 Bilirubin Ql (U) Negative Negative [facility] Blood erythrocytes count (nu mber/volume)Ordered By: Damian Melvin on 02-14-2023 RBC (Bld) [#/Vol] 3.35 10*6/uL 4.6-6.2 [facility] Blood hemoglobin measurement (mass/volume)Ordered By: Damian Melvin on 02-14-2023 Hemoglobin (Bld) [Mass/Vol] 10.3 g/dL 13.0-16.5 [facility] Blood lymphocytes/100 leukoc ytesOrdered By: Damian Melvin on 02-14-2023 Lymphocytes/100 WBC (Bld) 6.8 % 19-41 [facility] Blood manual differential co mment interpretation (narrative result)Ordered By: Damian Melvin on 02-14-2023 Manual differential comment Kristian (Bld) [Interp] SCANNED [facility] Blood monocytes/100 leukocyt esOrdered By: Damian Melvin on 02-14-2023 Monocytes/100 WBC (Bld) 7.1 % 0-10 [facility] Blood platelet mean volumeOr dered By: Damian Melvin on 02-14-2023 Platelet mean volume (Bld) [Entitic vol] 10.2 fL 6.2-12.0 [facility] Determination of erythrocyte mean corpuscular volume (MCV)Ordered By: Damian Melvin on 02-14-2023 MCV (RBC) [Entitic vol] 92.5 fL 80-94 [facility] Hematocrit Auto (Bld) [Volum e fraction]Ordered By: Damian Melvin on 02-14-2023 Hematocrit (Bld) [Volume fraction] 31.0 % 40-54 [facility] Ketones Test strip Ql (U)Ord ered By: Damian Melvin on 02-14-2023 Ketones Ql (U) 5 mg/dl Negative [facility] Laboratory - Chemistry and C hemistry - challengeOrdered By: Damian Melvin on 02-14-2023 CO2 [Moles/Vol] 22.0 mmol/L 21.0-32.0 [facility] Urea nitrogen/Creatinine [Mass ratio] 15.0 mg/mg 10-20 [facility] - Hematology and Cell countsOrdered By: Damian Melvin on 02-14-2023 Erythrocyte distribution width (RBC) [Entitic vol] 42.8 fL 35.1-43.9 [facility] Erythrocyte distribution width (RBC) [Ratio] 12.6 % 11.6-14.6 [facility] Immature granulocytes/100 WBC (Bld) 0.800 % 0.0-0.9 [facility] Comment on above: IG% - Immature Granu locytes (promyelocytes, myelocytes and metamyelocytes) > 1% indicates that a LEFT SHIFT is Present. MCH (RBC) [Entitic mass] 30.7 pg 27.0-32.0 [facility] Nucleated RBC/100 WBC (Bld) [Ratio] 0 % 0-5 [facility] MCHC Auto (RBC) [Mass/Vol]Or dered By: Damian Melvin on 02-14-2023 MCHC (RBC) [Mass/Vol] 33.2 g/dL 32-36 [facility] Mucus LM Ql (Urine sed)Order ed By: Damian Melvin on 02-14-2023 Mucus Ql (Urine sed) 0 SEEN /hpf [facility] Nitrite Test strip Ql (U)Ord ered By: Damian Melvin on 02-14-2023 Nitrite Ql (U) Negative Negative [facility] No Panel InformationOrdered By: Damian Melvin on 02-14-2023 Estimated Creatinine Clearance Calc 41.19 ml/min [facility] Estimated GFR (MDRD) Amer 54 mL/min >60 [facility] Comment on above: GFR Calc Estimated GFR (MDRD) Non-Af Amer 45 mL/min >60 [facility] Comment on above: Non- GFR Calc Platelets bldOrdered By: Mary Alice Melvin on 02-14-2023 Platelets (Bld) [#/Vol] 332 10*3/uL 150-450 [facility] Protein Test strip Ql (U)Ord ered By: Damian Melvin on 02-14-2023 Protein Ql (U) 500 mg/dl Negative [facility] Serum or plasma calcium janusz urement (mass/volume)Ordered By: Damian Melvin on 02-14-2023 Calcium [Mass/Vol] 8.6 mg/dL 8.5-10.1 [facility] Serum or plasma creatinine m easurement (mass/volume)Ordered By: Damian Melvin on 02-14-2023 Creatinine [Mass/Vol] 1.60 mg/dL 0.70-1.30 [facility] Comment on above: The validity of the calculated GFR & GFRAA in patients over 70 years has not been determined. Clinical correlation is essential. Serum or plasma urea nitroge n measurement (mass/volume)Ordered By: Damian Melvin on 02-14-2023 Urea nitrogen [Mass/Vol] 24 mg/dL 7-18 [facility] Squamous epithelial cells de tection in urine sediment by light microscopyOrdered By: Damian Melvin on 02-14-2023 Epithelial cells.squamous LM Ql (Urine sed) 0 SEEN /hpf 0-5 [facility] Thin prep Papanicolaou smear with manual screeningOrdered By: Damian Melvin on 02-14-2023 Thin prep Papanicolaou smear with manual screening 10 5-15 [facility] Urine blood detectionOrdered By: Damian Melvin on 02-14-2023 RBC Ql (U) 250 /ul Negative [facility] RBC Ql (U) > 100 SEEN /hpf 0-5 [facility] Comment on above: Microscopic field is filled. Other elements may be obscured. Urine clarityOrdered By: Mary Alice Melvin on 02-14-2023 Clarity (U) Cloudy Clear [facility] Urine color determinationOrd ered By: Damian Melvin on 02-14-2023 Color (U) Red Yellow [facility] Urine glucose detectionOrder ed By: Damian Melvin on 02-14-2023 Glucose Ql (U) Normal mg/dl Normal [facility] Urine leukocyte esterase det ection by dipstickOrdered By: Damian Melvin on 02-14-2023 Leukocyte esterase Test strip Ql (U) Negative Negative [facility] Urine pHOrdered By: Damian chávez on 02-14-2023 pH (U) 8.0 [pH] 5.0 - 8.0 [facility] Urine sediment bacteria coun t by microscopy (number/high power field)Ordered By: Damian Melvin on 02-14-2023 Bacteria LM.HPF (Urine sed) [#/Area] 0 /[HPF] None Seen [facility] Urine specific gravity measu rementOrdered By: Damian Melvin on 02-14-2023 Specific gravity (U) [Rel density] 1.010 1.002-1.030 [facility] Urobilinogen Auto test strip Ql (U)Ordered By: Damian Melvin on 02-14-2023 Urobilinogen Ql (U) Normal mg/dl Normal [facility] ALLIED HEALTHon 02-12-2023 ALLIED HEALTH HNO ID: [id number] Author: Radha Brower Chaplain Service: Spiritual Care Author Type: Key Cutter Type: Allied Health Filed: 02/12/2023 11:00 AM Note Text: SPIRITUAL CARE PROGRESS NOTE SERVICE DATE: 02/12/2023 SERVICE TIME: 10:40 am Short visit with patient. Patient shared he had no need for Spiritual Care services at this time. To contact the Spiritual Care Department: Please call [phone]. SIGNATURE: Chaplain Octavio PATIENT NAME: Barbara Milan DATE: February 12, 2023 TIME: 10:59 AM PAGER/CONTACT #: [phone] Normal [facility] Basic metabolic 2000 panelon 02-12-2023 Anion gap [Moles/Vol] 11 mmol/L Normal 9-18 [facility] Comment on above: Order Comment: Speci men Type: BLOOD SPECIMEN Ordering Facility: [facility] Address: [address] [place] [phone] Performed By: #### 2 4321-2 #### [facility] CLIA [id number] [address] [place] Calcium [Mass/Vol] 7.9 mg/dL Low 8.5-10.2 [facility] Comment on above: Order Comment: Speci men Type: BLOOD SPECIMEN Ordering Facility: [facility] Address: [address] [place] [address] Performed By: #### 2 4321-2 #### [facility] CLIA [id number] [address] [place] Chloride [Moles/Vol] 103 mmol/L Normal 97-105 [facility] Comment on above: Order Comment: Speci men Type: BLOOD SPECIMEN Ordering Facility: [facility] Address: [address] [place] [address] Performed By: #### 2 4321-2 #### [facility] CLIA [id number] [address] [place] CO2 [Moles/Vol] 22 mmol/L Normal 22-30 [facility] Comment on above: Order Comment: Speci men Type: BLOOD SPECIMEN Ordering Facility: [facility] Address: [address] [place] [address] Performed By: #### 2 4321-2 #### [facility] CLIA [id number] [address] [place] Creatinine [Mass/Vol] 1.26 mg/dL High 0.73-1.22 [facility] Comment on above: Order Comment: Speci men Type: BLOOD SPECIMEN Ordering Facility: [facility] Address: [address] [place] [address] Performed By: #### 2 4321-2 #### [facility] CLIA [id number] [address] Creatinine and Glomerular filtration rate.predicted panel (S/P/Bld) 59 mL/min/1.73m??? Low >=60 [facility] Comment on above: Order Comment: Speci men Type: BLOOD SPECIMEN Ordering Facility: [facility] Address: [address] [place], [place] [phone] Result Comment: Christy mated Glomerular Filtration Rate [...] #### 2 4321-2 #### [facility] CLIA [id number] 1 [place] [address] [place] Glucose [Mass/Vol] 109 mg/dL High 74-99 [facility] Comment on above: Order Comment: Elisa dominique Type: BLOOD SPECIMEN Ordering Facility: [facility] Address: [address] [place], [place] [phone] Result Comment: The [place] [employer] (ADA) provides guidance for cutoff [...] Standards of Medical Care in Diabetes 2016, [place] [employer]. Diabetes Care. 2016.39(Suppl 1). Performed By: #### 2 4321-2 #### [facility] CLIA [id number] 1 [place] [address] [place] Potassium [Moles/Vol] 4.1 mmol/L Normal 3.7-5.1 [facility] Comment on above: Order Comment: Elisa dominique Type: BLOOD SPECIMEN Ordering Facility: [facility] Address: [address] [place], [place] [phone] Performed By: #### 2 4321-2 #### [facility] CLIA [id number] [address] Sodium [Moles/Vol] 136 mmol/L Normal 136-144 [facility] Comment on above: Order Comment: Speci men Type: BLOOD SPECIMEN Ordering Facility: [facility] Address: [address] [place] [address] Performed By: #### 2 4321-2 #### [facility] CLIA [id number] [address] [place] Urea nitrogen [Mass/Vol] 20 mg/dL Normal 9-24 [facility] Comment on above: Order Comment: Speci men Type: BLOOD SPECIMEN Ordering Facility: [facility] Address: [address] [address] Performed By: #### 2 4321-2 #### [facility] CLIA [id number] [address] CBC panel Auto (Bld)on 02-12 Erythrocyte distribution width (RBC) [Ratio] 12.6 % Normal 11.5-15.0 [facility] Comment on above: Order Comment: Speci men Type: BLOOD SPECIMEN Ordering Facility: [facility] Address: [address] [place] [address] Performed By: #### 2 4321-2 #### [facility] CLIA [id number] [address] Hematocrit (Bld) [Volume fraction] 27.5 % Low 39.0-51.0 [facility] Comment on above: Order Comment: Speci men Type: BLOOD SPECIMEN Ordering Facility: [facility] Address: [address] [address] Performed By: #### 2 4321-2 #### [facility] CLIA [id number] [address] [place] Hemoglobin (Bld) [Mass/Vol] 9.3 g/dL Low 13.0-17.0 [facility] Comment on above: Order Comment: Speci men Type: BLOOD SPECIMEN Ordering Facility: [facility] Address: [address] [address] Performed By: #### 2 4321-2 #### [facility] CLIA [id number] [address] MCH (RBC) [Entitic mass] 30.8 pg Normal 26.0-34.0 [facility] Comment on above: Order Comment: Speci men Type: BLOOD SPECIMEN Ordering Facility: [facility] Address: [address] [place] [address] Performed By: #### 2 4321-2 #### [facility] CLIA [id number] [address] MCHC (RBC) [Mass/Vol] 33.8 g/dL Normal 30.5-36.0 [facility] Comment on above: Order Comment: Speci men Type: BLOOD SPECIMEN Ordering Facility: [facility] Address: [address] [place] [address] Performed By: #### 2 4321-2 #### [facility] CLIA [id number] [address] MCV (RBC) [Entitic vol] 91.1 fL Normal 80.0-100.0 [facility] Comment on above: Order Comment: Speci men Type: BLOOD SPECIMEN Ordering Facility: [facility] Address: [address] [place] [address] Performed By: #### 2 4321-2 #### [facility] CLIA [id number] [address] Nucleated RBC (Bld) [#/Vol] 10*3/uL Normal <0.01 [facility] Comment on above: Order Comment: Speci men Type: BLOOD SPECIMEN Ordering Facility: [facility] Address: [address] [place] [address] Performed By: #### 2 4321-2 #### [facility] CLIA [id number] [address] Platelet mean volume (Bld) [Entitic vol] 10.7 fL Normal 9.0-12.7 [facility] Comment on above: Order Comment: Speci men Type: BLOOD SPECIMEN Ordering Facility: [facility] Address: [address] [place] [address] Performed By: #### 2 4321-2 #### [facility] CLIA [id number] [address] Platelets (Bld) [#/Vol] 248 10*3/uL Normal 150-400 [facility] Comment on above: Order Comment: Speci men Type: BLOOD SPECIMEN Ordering Facility: [facility] Address: [address] [place] [address] Performed By: #### 2 4321-2 #### [facility] CLIA [id number] [address] RBC (Bld) [#/Vol] 3.02 10*6/uL Low 4.20-6.00 [facility] Comment on above: Order Comment: Speci men Type: BLOOD SPECIMEN Ordering Facility: [facility] Address: [address] [place] [address] Performed By: #### 2 4321-2 #### [facility] CLIA [id number] [address] WBC (Bld) [#/Vol] 7.44 10*3/uL Normal 3.70-11.00 [facility] Comment on above: Order Comment: Speci men Type: BLOOD SPECIMEN Ordering Facility: [facility] Address: [address] [place] [address] Performed By: #### 2 4321-2 #### [facility] CLIA [id number] [address] CNDSon 02-12-2023 CNDS HNO ID: [id number] Author: Yanni Badillo MD Service: Urology Author Type: Resident Type: Discharge Summary Filed: 02/12/2023 8:37 AM Note Text: Attestation signed by Rio Pardo MD at 02/12/2023 2:58 PM I saw and evaluated the patient. Discussed with the resident and agree with resident's findings and plan as documented in the resident's note. Follow up with Urology in [place]. 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 Normal [facility] ANES POSTPROC EVALon 023 ANES POSTPROC EVAL HNO ID: [id number] Author: Drea Carey MD Service: Anesthesiology Author Type: Physician Type: Anesthesia Postprocedure Evaluation Filed: 02/11/2023 4:00 PM Note Text: POST ANESTHESIA EVALUATION NOTE : 1945 Procedure Summary Date: 02/11/23 Room / Location: [place] OR [address] [place] [address] OR Anesthesia Start: 1450 Anesthesia Stop: 1559 [...] February 11, 2023 TIME: 3:59 PM CSN: [id number] [facility] ANES PRE-OPon 02-11-2023 ANES PRE-OP HNO ID: [id number] Author: Drea Carey MD Service: Anesthesiology Author Type: Physician Type: Anesthesia Preprocedure Evaluation Filed: 02/11/2023 1:57 PM Note Text: ANESTHESIOLOGY DAY OF SURGERY NOTE prostate clot removal HTN - lisinopril gu - leuprolide 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 Patient / Responsible Republican agrees to proceed: yes Patient / Surrogate [...] intramuscularly every 4 months. - mv with zgr-RB-myoastur-gink go (ONE-A-DAY MEN'S 50+ ADVANTAGE) 400-300-120 mcg-mcg-mg tab Take 1 tablet by mouth once daily. I have interviewed and examined the patient. I have reviewed the medical record and/or the pre-anesthesia evaluation, pertinent labs, and test results. This contains updated information obtained within 48 hours of Surgery/Procedure. SIGNATURE: Drea Carey MD PATIENT NAME: Barbara Milan DATE: February 11, 2023 TIME: 12:24 PM CSN: [id number] Normal [facility] Basic metabolic 2000 panelon 02-11-2023 Anion gap [Moles/Vol] 9 mmol/L Normal 9-18 [facility] Comment on above: Order Comment: Speci men Type: BLOOD SPECIMEN Ordering Facility: [facility] Address: [address] [place] [address] Performed By: #### 2 4321-2 #### [facility] CLIA [id number] 1 [place] [address] [place] Calcium [Mass/Vol] 8.4 mg/dL Low 8.5-10.2 [facility] Comment on above: Order Comment: Speci men Type: BLOOD SPECIMEN Ordering Facility: [facility] Address: [address] [place] [address] Performed By: #### 2 4321-2 #### [facility] CLIA [id number] 1 [place] [address] [place] Chloride [Moles/Vol] 103 mmol/L Normal 97-105 [facility] Comment on above: Order Comment: Speci men Type: BLOOD SPECIMEN Ordering Facility: [facility] Address: [address] [place] [address] Performed By: #### 2 4321-2 #### [facility] CLIA [id number] 1 [place] [address] [place] CO2 [Moles/Vol] 21 mmol/L Low 22-30 [facility] Comment on above: Order Comment: Speci men Type: BLOOD SPECIMEN Ordering Facility: [facility] Address: [address] [address] Performed By: #### 2 4321-2 #### [facility] CLIA [id number] 1 [place] [address] [place] Creatinine [Mass/Vol] 1.30 mg/dL High 0.73-1.22 [facility] Comment on above: Order Comment: Speci men Type: BLOOD SPECIMEN Ordering Facility: [facility] Address: [address] [place] [address] Performed By: #### 2 4321-2 #### [facility] CLIA [id number] [address] Creatinine and Glomerular filtration rate.predicted panel (S/P/Bld) 57 mL/min/1.73m??? Low >=60 [facility] Comment on above: Order Comment: Speci men Type: BLOOD SPECIMEN Ordering Facility: [facility] Address: [address] [place] [address] Result Comment: Christy mated Glomerular Filtration Rate [...] #### 2 4321-2 #### [facility] CLIA [id number] 1 [place] [address] [place] Glucose [Mass/Vol] 108 mg/dL High 74-99 [facility] Comment on above: Order Comment: Speci men Type: BLOOD SPECIMEN Ordering Facility: [facility] Address: [address] [place] [address] Result Comment: The [place] Diabetes [employer] (ADA) provides guidance for cutoff [...] Standards of Medical Care in Diabetes 2016, [place] [employer]. Diabetes Care. 2016.39(Suppl 1). Performed By: #### 2 4321-2 #### [facility] CLIA [id number] [address] STATES OF [facility] Potassium [Moles/Vol] 3.9 mmol/L Normal 3.7-5.1 [facility] Comment on above: Order Comment: Elisa dominique Type: BLOOD SPECIMEN Ordering Facility: [facility] Address: [address] [place] [address] Performed By: #### 2 4321-2 #### [facility] CLIA [id number] [address] STATES OF [facility] Sodium [Moles/Vol] 133 mmol/L Low 136-144 [facility] Comment on above: Order Comment: Elisa dominique Type: BLOOD SPECIMEN Ordering Facility: [facility] Address: [address] [place] [address] Performed By: #### 2 4321-2 #### [facility] CLIA [id number] [address] [place] [facility] Urea nitrogen [Mass/Vol] 22 mg/dL Normal 9-24 [facility] Comment on above: Order Comment: Elisa dominique Type: BLOOD SPECIMEN Ordering Facility: [facility] Address: [address] [place] [address] Performed By: #### 2 4321-2 #### [facility] CLIA [id number] [address] OF [facility] CBC panel Auto (Bld)on 02-11 Erythrocyte distribution width (RBC) [Ratio] 12.7 % Normal 11.5-15.0 [facility] Comment on above: Order Comment: Speci men Type: BLOOD SPECIMEN Ordering Facility: [facility] Address: [address] [address] Performed By: #### 2 4321-2 #### [facility] CLIA [id number] [address] Hematocrit (Bld) [Volume fraction] 27.3 % Low 39.0-51.0 [facility] Comment on above: Order Comment: Speci men Type: BLOOD SPECIMEN Ordering Facility: [facility] Address: [address] [place] [address] Performed By: #### 2 4321-2 #### [facility] CLIA [id number] [address] Hemoglobin (Bld) [Mass/Vol] 9.3 g/dL Low 13.0-17.0 [facility] Comment on above: Order Comment: Speci men Type: BLOOD SPECIMEN Ordering Facility: [facility] Address: [address] [address] Performed By: #### 2 1-2 #### [facility] CLIA [id number] [address] MCH (RBC) [Entitic mass] 30.6 pg Normal 26.0-34.0 [facility] Comment on above: Order Comment: Speci men Type: BLOOD SPECIMEN Ordering Facility: [facility] Address: [address] [address] Performed By: #### 2 4321-2 #### [facility] CLIA [id number] [address] OF [facility] MCHC (RBC) [Mass/Vol] 34.1 g/dL Normal 30.5-36.0 [facility] Comment on above: Order Comment: Speci men Type: BLOOD SPECIMEN Ordering Facility: [facility] Address: [address] [place] [address] Performed By: #### 2 4321-2 #### [facility] CLIA [id number] [address] MCV (RBC) [Entitic vol] 89.8 fL Normal 80.0-100.0 [facility] Comment on above: Order Comment: Speci men Type: BLOOD SPECIMEN Ordering Facility: [facility] Address: [address] [address] Performed By: #### 2 4321-2 #### [facility] CLIA [id number] [address] [place] Nucleated RBC (Bld) [#/Vol] 10*3/uL Normal <0.01 [facility] Comment on above: Order Comment: Speci men Type: BLOOD SPECIMEN Ordering Facility: [facility] Address: [address] [place] [address] Performed By: #### 2 4321-2 #### [facility] CLIA [id number] [address] Platelet mean volume (Bld) [Entitic vol] 10.9 fL Normal 9.0-12.7 [facility] Comment on above: Order Comment: Speci men Type: BLOOD SPECIMEN Ordering Facility: [facility] Address: [address] [place] [address] Performed By: #### 2 4321-2 #### [facility] CLIA [id number] [address] Platelets (Bld) [#/Vol] 211 10*3/uL Normal 150-400 [facility] Comment on above: Order Comment: Speci men Type: BLOOD SPECIMEN Ordering Facility: [facility] Address: [address] [place] [address] Performed By: #### 2 4321-2 #### [facility] CLIA [id number] [address] [place] RBC (Bld) [#/Vol] 3.04 10*6/uL Low 4.20-6.00 [facility] Comment on above: Order Comment: Speci men Type: BLOOD SPECIMEN Ordering Facility: [facility] Address: [address] [place], [place] [address], [place] [address] Performed By: #### 2 4321-2 #### [facility] CLIA [id number] [address] WBC (Bld) [#/Vol] 7.34 10*3/uL Normal 3.70-11.00 [facility] Comment on above: Order Comment: Speci men Type: BLOOD SPECIMEN Ordering Facility: [facility] Address: [address] [place] [id number] Performed By: #### 2 4321-2 #### [facility] CLIA [id number] [address] [place] [id number] [facility] OPERATIVE NOon 02-11-2023 OPERATIVE NO HNO ID: [id number] Author: Mayra Carrasquillo MD Service: Urology Author [...] Time: 7:29 AM OPERATIVE/PROCEDURE REPORT LOG ID: [id number] Surgery/Procedure Date: 02/11/2023 Incision/Procedure Start Time: 3:02 PM Incision Close/Procedure End Time: 3:48 PM Surgeon(s)/Procedura list(s) and Content Producer(s): Surgeon(s) and Role: * Kelvin Edwards MD - Primary * Mayra Carrasquillo MD - Resident - Assisting * Mj Wills MD - Resident - Assisting No Additional Staff Procedure(s): Cystoscopy, Clot evacuation, Fulguration, Bladder Biopsy, Cystogram Anesthesia: General Pre-Op/Pre-Procedure Diagnosis: Pre-Op Diagnosis Codes: * Gross hematuria [R31.0] Post-Op/Post-Procedu re Diagnosis: Same Estimated Blood Loss: <5 mls Specimens: bladder biopsy Drains: 22 Fr [place] tip, 10cc in the balloon Complications: None [...] leaving which was then connected to an driver messenger port. Using a 60cc awa syringe, gentle irrigation was used to evacuate clot from the bladder to achieve a light pink urine. We then detached the driver messenger port and re-connected the obturator to the [...] resectoscope was exchanged for a cystoscope. A corporate legal assistant film was obtained. We then instilled ~50cc [...] then removed from the bladder. A 22Fr [place] tip worthy catheter was placed over the wire. 10cc were placed in the balloon. Worthy catheter was irrigated to confirm proper placement in the bladder. The patient tolerated the procedure well. Pt awakened and taken to recovery room in stable condition. Mj Wills MD PGY1 Urology 4:24 PM 02/11/23 Mayra Carrasquillo MD Urology PGY2 02/11/2023 5:56 PM -Page telephone claims representative resident with questions or concerns Normal [facility] SURGICAL PATHOLOGYon 023 CASE REPORT Normal [facility] Comment on above: Order Comment: Speci men Type: TISSUE SPECIMENOrdering Facility: [facility] Address: [address] [place] [id number] Result Comment: Surg ica Pathology Report Case: [id number] Authorizing Provider: Kelvin Edwards MD Collected: 02/11/2023 03:24 PM Ordering Location[facility] Received: 02/14/2023 09:41 AM Pathologist: Brittney Hidalgo MD Specimen: BLADDER BIOPSY, bladder biopsy bladder neck Performed By: #### S ####[facility]ATORYCLIA [id number] [address] CLINICAL HISTORY Normal [facility] Comment on above: Order Comment: Speci men Type: TISSUE SPECIMENOrdering Facility: [facility] Address: [address] [place] [address] Result Comment: Pre- op diagnosis: Gross hematuria [R31.0] Performed By: #### S ####[facility] LABORATORYCLIA [id number] [address] FINAL DIAGNOSIS Normal [facility] Comment on above: Order Comment: Speci men Type: TISSUE SPECIMENOrdering Facility: [facility] Address: [address] [place] [address] Result Comment: Nick quiroz, biopsy: - Predominantly blood and scant urothelium. - See comment. Performed By: #### S ####[facility]ORATORYCLIA [id number] [address] FINAL PERFORMING LAB Normal [facility] Comment on above: Order Comment: Speci men Type: TISSUE SPECIMENOrdering Facility: [facility] Address: [address] [place] [address] Result Comment: Diag nostic interpretation performed at [facility], [address] [place] [address] CLIA# [id number] Geotechnical Engineering Technician: Damian Valdivia M.D. Performed By: #### S ####[facility] LABORATORYCLIA [id number] [address] GROSS DESCRIPTION [facility] Comment on above: Order Comment: Speci men Type: TISSUE SPECIMENOrdering Facility: [facility] Address: [address] [place] [address] Result Comment: A. B LADDER BIOPSY Received in formalin and designated bladder biopsy are fragments of red-brown tissue that is strained into a biopsy bag and has an aggregate measurement of 0.5 x 0.2 x 0.1 cm. The specimen is entirely submitted in 1 cassette. KM February 14, 2023 12:57 PM Gross examination performed at [facility], [address] [place] [address] CLIA# [id number] Performed By: #### S ####[facility]ORATORYCLIA [id number] [place] [address] [place] Basic metabolic 2000 panelon 02-10-2023 Anion gap [Moles/Vol] 9 mmol/L Normal 9-18 [facility] Comment on above: Order Comment: Speci men Type: BLOOD SPECIMEN [facility] Address: [address] [address] Performed By: #### 2 4321-2 #### [facility] CLIA [id number] [address] [place] Calcium [Mass/Vol] 8.4 mg/dL Low 8.5-10.2 [facility] Comment on above: Order Comment: Speci men Type: BLOOD SPECIMEN [facility] Address: [address] [place] [address] Performed By: #### 2 4321-2 #### [facility] CLIA [id number] [address] [facility] Chloride [Moles/Vol] 104 mmol/L Normal 97-105 [facility] Comment on above: Order Comment: Speci men Type: BLOOD SPECIMEN [facility] Address: [address] [place] [address] Performed By: #### 2 4321-2 #### [facility] CLIA [id number] [address] [place] CO2 [Moles/Vol] 21 mmol/L Low 22-30 [facility] Comment on above: Order Comment: Speci men Type: BLOOD SPECIMEN [facility] Address: [address] [place] [address] Performed By: #### 2 4321-2 #### [facility] CLIA [id number] [address] [place] Creatinine [Mass/Vol] 1.23 mg/dL High 0.73-1.22 [facility] Comment on above: Order Comment: Elisa dominique Type: BLOOD SPECIMEN [facility] Address: [address] [place] [address] Performed By: #### 2 4321-2 #### [facility] CLIA [id number] [address] [place] Creatinine and Glomerular filtration rate.predicted panel (S/P/Bld) 61 mL/min/1.73m??? Normal >=60 [facility] Comment on above: Order Comment: Elisa dominique Type: BLOOD SPECIMEN [facility] Address: [address] [place] [address] Result Comment: Christy mated Glomerular Filtration Rate [...] #### 2 4321-2 #### [facility] CLIA [id number] [address] [place] [address] [place] Glucose [Mass/Vol] 112 mg/dL High 74-99 [facility] Comment on above: Order Comment: Elisa dominique Type: BLOOD SPECIMEN [facility] Address: [address] [place] [address] Result Comment: The [place] Diabetes Association (ADA) provides guidance for cutoff [...] Standards of Medical Care in Diabetes 2016, [place] [employer]. Diabetes Care. 2016.39(Suppl 1). Performed By: #### 2 4321-2 #### [facility] CLIA [id number] [address] [place] Potassium [Moles/Vol] 4.0 mmol/L Normal 3.7-5.1 [facility] Comment on above: Order Comment: Speci men Type: BLOOD SPECIMEN [facility] Address: [address] [place] [address] Performed By: #### 2 4321-2 #### [facility] CLIA [id number] [address] [place] Sodium [Moles/Vol] 134 mmol/L Low 136-144 [facility] Comment on above: Order Comment: Speci men Type: BLOOD SPECIMEN [facility] Address: [address] [place] [address] Performed By: #### 2 4321-2 #### [facility] CLIA [id number] [address] [facility] Urea nitrogen [Mass/Vol] 20 mg/dL Normal 9-24 [facility] Comment on above: Order Comment: Speci men Type: BLOOD SPECIMEN [facility] Address: [address] [place] [address] Performed By: #### 2 4321-2 #### [facility] CLIA [id number] [address] [facility] CBC panel Auto (Bld)on 02-10 Erythrocyte distribution width (RBC) [Ratio] 12.5 % Normal 11.5-15.0 [facility] Comment on above: Order Comment: Speci men Type: BLOOD SPECIMEN [facility] Address: [address] [place] [address] Performed By: #### 5 8410-2 #### [facility] CLIA [id number] [address] [place] Hematocrit (Bld) [Volume fraction] 28.8 % Low 39.0-51.0 [facility] Comment on above: Order Comment: Speci men Type: BLOOD SPECIMEN [facility] Address: [address] [place] [address] Performed By: #### 5 8410-2 #### [facility] CLIA [id number] [address] Hemoglobin (Bld) [Mass/Vol] 9.7 g/dL Low 13.0-17.0 [facility] Comment on above: Order Comment: Speci men Type: BLOOD SPECIMEN [facility] Address: [address] [place] [address] Performed By: #### 5 8410-2 #### [facility] CLIA [id number] [address] MCH (RBC) [Entitic mass] 30.5 pg Normal 26.0-34.0 [facility] Comment on above: Order Comment: Speci men Type: BLOOD SPECIMEN [facility] Address: [address] [place] [address] Performed By: #### 5 8410-2 #### [facility] CLIA [id number] [address] MCHC (RBC) [Mass/Vol] 33.7 g/dL Normal 30.5-36.0 [facility] Comment on above: Order Comment: Speci men Type: BLOOD SPECIMEN [facility] Address: [address] [place] [address] Performed By: #### 5 8410-2 #### [facility] CLIA [id number] [address] MCV (RBC) [Entitic vol] 90.6 fL Normal 80.0-100.0 [facility] Comment on above: Order Comment: Speci men Type: BLOOD SPECIMEN [facility] Address: [address] [place] [address] Performed By: #### 5 8410-2 #### [facility] CLIA [id number] [address] [facility] Nucleated RBC (Bld) [#/Vol] 10*3/uL Normal <0.01 [facility] Comment on above: Order Comment: Speci men Type: BLOOD SPECIMEN [facility] Address: [address] [place] [address] Performed By: #### 5 8410-2 #### [facility] CLIA [id number] [address] [place] Platelet mean volume (Bld) [Entitic vol] 11.0 fL Normal 9.0-12.7 [facility] Comment on above: Order Comment: Speci men Type: BLOOD SPECIMEN [facility] Address: [address] [place] [address] Performed By: #### 5 8410-2 #### [facility] CLIA [id number] [address] Platelets (Bld) [#/Vol] 203 10*3/uL Normal 150-400 [facility] Comment on above: Order Comment: Speci men Type: BLOOD SPECIMEN [facility] Address: [address] [place] [address] Performed By: #### 5 8410-2 #### [facility] CLIA [id number] [address] [place] RBC (Bld) [#/Vol] 3.18 10*6/uL Low 4.20-6.00 [facility] Comment on above: Order Comment: Speci men Type: BLOOD SPECIMEN [facility] Address: [address] [place] [address] Performed By: #### 5 8410-2 #### [facility] CLIA [id number] [address] [place] WBC (Bld) [#/Vol] 8.99 10*3/uL Normal 3.70-11.00 [facility] Comment on above: Order Comment: Speci men Type: BLOOD SPECIMEN [facility] Address: [address] [place] [address] [place] [address] Performed By: #### 5 8410-2 #### [id number] [address] [place] [address] [place] NURSING PROGon 02-10-2023 NURSING PROG HNO ID: [id number] Author: Drea Son, [place] Service: ? Author [...] of Dr Cortez Carrasquillo. 1730- Dr Cortez Patiñoles up to unit to replace 3 way worthy. Normal [facility] THERAPY NTon 02-10-2023 THERAPY NT HNO ID: [id number] Author: Mayra Faulkner PTA Service: Physical Therapy Author Type: Gas Turbine Mechanic Type: Therapy (PT/OT/Speech/Resp) Filed: 02/10/2023 1:31 PM Note Text: Attestation signed by Wes Calvillo, PT at 02/10/2023 4:16 PM I reviewed and agree with the documentation corresponding to this therapy visit. 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 Independent with mobility without AD, [...] challenged with descending steps with 1 rail /[employer] Moderate assist required , Min assist with [...] Static S (more content not included)... 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 Independent with mobility without AD, denies any recent falls. 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 Normal [facility] Basic metabolic 2000 panelon 02-09-2023 Anion gap [Moles/Vol] 11 mmol/L Normal 9-18 [facility] Comment on above: Order Comment: Speci men Type: BLOOD SPECIMEN [facility] Address: [address] [place] [address] Performed By: #### 2 4321-2 #### [facility] CLIA [id number] [address] [place] [address] [place] Calcium [Mass/Vol] 8.4 mg/dL Low 8.5-10.2 [facility] Comment on above: Order Comment: Speci men Type: BLOOD SPECIMEN [facility] Address: [address] [address] Performed By: #### 2 4321-2 #### [facility] CLIA [id number] 1 [place] [address] [place] Chloride [Moles/Vol] 103 mmol/L Normal 97-105 [facility] Comment on above: Order Comment: Speci men Type: BLOOD SPECIMEN [facility] Address: [address] [place] [address] Performed By: #### 2 4321-2 #### [facility] CLIA [id number] [address] [place] CO2 [Moles/Vol] 20 mmol/L Low 22-30 [facility] Comment on above: Order Comment: Speci men Type: BLOOD SPECIMEN [facility] Address: [address] [address] Performed By: #### 2 4321-2 #### [facility] CLIA [id number] [address] [place] Creatinine [Mass/Vol] 1.17 mg/dL Normal 0.73-1.22 [facility] Comment on above: Order Comment: Speci men Type: BLOOD SPECIMEN [facility] Address: [address] [place] [address] Performed By: #### 2 4321-2 #### [facility] CLIA [id number] [address] Creatinine and Glomerular filtration rate.predicted panel (S/P/Bld) 65 mL/min/1.73m??? Normal >=60 [facility] Comment on above: Order Comment: Speci men Type: BLOOD SPECIMEN [facility] Address: [address] [place] [address] Result Comment: Christy mated Glomerular Filtration Rate [...] Performed By: #### 2 4321-2 #### [facility] CLIA [id number] [address] [place] Glucose [Mass/Vol] 126 mg/dL High 74-99 [facility] Comment on above: Order Comment: Elisa dominique Type: BLOOD SPECIMEN [facility] Address: [address] [place] [address] Result Comment: The [place] Diabetes Association (ADA) provides guidance for cutoff [...] Standards of Medical Care in Diabetes 2016, [place] [employer]. Diabetes Care. 2016.39(Suppl 1). Performed By: #### 2 4321-2 #### [facility] CLIA [id number] [address] [place] [address] [place] Potassium [Moles/Vol] 4.0 mmol/L Normal 3.7-5.1 [facility] Comment on above: Order Comment: Elisa dominique Type: BLOOD SPECIMEN [facility] Address: [address] [place] [address] Performed By: #### 2 4321-2 #### [facility] CLIA [id number] [address] [place] Sodium [Moles/Vol] 134 mmol/L Low 136-144 [facility] Comment on above: Order Comment: Elisa dominique Type: BLOOD SPECIMEN [facility] Address: [address] [place] [address] Performed By: #### 2 4321-2 #### [facility] CLIA [id number] [address] [place] [address] [place] Urea nitrogen [Mass/Vol] 16 mg/dL Normal 9-24 [facility] Comment on above: Order Comment: Elisa dominique Type: BLOOD SPECIMEN [facility] Address: [address] [place] [address] Performed By: #### 2 4321-2 #### [facility] CLIA [id number] [address] CBC panel Auto (Bld)on 02-09 Erythrocyte distribution width (RBC) [Ratio] 12.5 % Normal 11.5-15.0 [facility] Comment on above: Order Comment: Speci men Type: BLOOD SPECIMEN [facility] Address: [address] [place] [address] Performed By: #### 5 8410-2 #### [facility] CLIA [id number] [address] Hematocrit (Bld) [Volume fraction] 31.5 % Low 39.0-51.0 [facility] Comment on above: Order Comment: Speci men Type: BLOOD SPECIMEN [facility] Address: [address] [place] [address] Performed By: #### 5 8410-2 #### [facility] CLIA [id number] [address] Hemoglobin (Bld) [Mass/Vol] 10.6 g/dL Low 13.0-17.0 [facility] Comment on above: Order Comment: Speci men Type: BLOOD SPECIMEN [facility] Address: [address] [place] [address] Performed By: #### 5 8410-2 #### [facility] CLIA [id number] [address] MCH (RBC) [Entitic mass] 30.5 pg Normal 26.0-34.0 [facility] Comment on above: Order Comment: Speci men Type: BLOOD SPECIMEN [facility] Address: [address] [place] [address] Performed By: #### 5 8410-2 #### [facility] CLIA [id number] [address] MCHC (RBC) [Mass/Vol] 33.7 g/dL Normal 30.5-36.0 [facility] Comment on above: Order Comment: Speci men Type: BLOOD SPECIMEN [facility] Address: [address] [address] Performed By: #### 5 8410-2 #### [facility] CLIA [id number] [address] MCV (RBC) [Entitic vol] 90.8 fL Normal 80.0-100.0 [facility] Comment on above: Order Comment: Speci men Type: BLOOD SPECIMEN [facility] Address: [address] [address] Performed By: #### 5 8410-2 #### [facility] CLIA [id number] [address] [facility] Nucleated RBC (Bld) [#/Vol] 10*3/uL Normal <0.01 [facility] Comment on above: Order Comment: Speci men Type: BLOOD SPECIMEN [facility] Address: [address] [address] Performed By: #### 5 8410-2 #### [facility] CLIA [id number] [address] Platelet mean volume (Bld) [Entitic vol] 10.6 fL Normal 9.0-12.7 [facility] Comment on above: Order Comment: Speci men Type: BLOOD SPECIMEN [facility] Address: [address] [place] [address] Performed By: #### 5 8410-2 #### [facility] CLIA [id number] [address] Platelets (Bld) [#/Vol] 211 10*3/uL Normal 150-400 [facility] Comment on above: Order Comment: Speci men Type: BLOOD SPECIMEN [facility] Address: [address] [place] [address] Performed By: #### 5 8410-2 #### [facility] CLIA [id number] [address] [facility] RBC (Bld) [#/Vol] 3.47 10*6/uL Low 4.20-6.00 [facility] Comment on above: Order Comment: Speci men Type: BLOOD SPECIMEN [facility] Address: [address] [place] [address] Performed By: #### 5 8410-2 #### [facility] CLIA [id number] [address] WBC (Bld) [#/Vol] 9.87 10*3/uL Normal 3.70-11.00 [facility] Comment on above: Order Comment: Speci men Type: BLOOD SPECIMEN [facility] Address: [address] [place] [address] Performed By: #### 5 8410-2 #### [facility] CLIA [id number] [address] CONSULTon 02-09-2023 CONSULT HNO ID: [id number] Author: Meng Hollins MD Service: General Surgery Author Type: Physician Type: Consults Filed: 02/09/2023 5:06 PM Note Text: HBO Note: I was asked to see this patient about 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 Pt looks to be improving and this treatment is generally given as an outpatient. The patient lives in [place], near to [place], and I recommend that he see his local urologist and then be evaluated by the [facility] HBO unit. He would need daily treatments and the amount of travel would make it very hard to be treated here. We did discuss the treatment and what it does and what to expect, so he is aware of it. Please call if there are any other questions. Meng Hollins MD Normal [facility] ECG COMPLETEon 02-09-2023 ECG COMPLETE Ventricular Rate : 98 BPM Atrial Rate : 98 BPM P-R Interval : 188 ms QRS Duration : 90 ms Q-T Interval : 330 ms QTC Calculation(Bazett) : 421 ms Calculated P Debary : 42 degrees Calculated R Debary : 44 degrees Calculated T Debary : 38 degrees SINUS RHYTHM WITH PREMATURE ATRIAL COMPLEXES OTHERWISE NORMAL ECG NO PREVIOUS ECGS AVAILABLE Confirmed by MD MARTINEZ YASSAR ([id number]) on 02/13/2023 11:38:54 PM NAME : BARBARA MILAN PID : [id number] : 1945 Gender : Male Race : ORD : [id number] Procedure Date : Feb 09 2023 10:57:16 Edit Date : Feb 13 2023 23:38:57 Diagnosis: SINUS RHYTHM WITH PREMATURE ATRIAL COMPLEXES OTHERWISE NORMAL ECG NO PREVIOUS ECGS AVAILABLE Confirmed by MD MARTINEZ YASSAR ([id number]) on 02/13/2023 11:38:54 PM Test Reason : Tachycardia Location : 51 : 5100 5115 Overread By : MD MARTINEZ YASSAR Edited By : MD MARTINEZ YASSAR Referred By : , Acquired by : JAYLA JUNE [facility] NURSING PROGon 02-09-2023 NURSING PROG HNO ID: [id number] Author: Drea Son RN Service: ? Author Type: Registered Nurse Type: Nursing Progress Note Filed: 02/09/2023 5:11 PM Note Text: This RN called US tech due to stat US needing to be completed. She stated she is behind but will be done today. [facility] NURSING PROG HNO ID: [id number] Author: Drea Son RN Service: ? Author Type: Registered Nurse Type: Nursing Progress Note Filed: 02/09/2023 3:46 PM Note Text: Patient called this RN into room with complaints of increasing BL feet pain. Secure chat to Dr Cortez Carrasquillo. Dr Wills at bedside to evaluate. New orders placed. [facility] NURSING PROG HNO ID: [id number] Author: Ruth Mccormick RN Service: ? Author Type: Registered Nurse [...] his resting at this time . 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 Independent with mobility without AD, [...] challenge or move without loss of balance -M: 7: Walk 25 feet or more Learning/Educational Needs: Functional Activities/Mobility, PT In-H (more content not included)... Normal [facility] US DVT LOWER BILon 3 US DVT LOWER QUENTIN * * *Final Report* * * DATE OF EXAM: Feb 09 2023 6:16PM [facility] 1005 - US DVT LOWER QUENTIN / [...] of the left and right lower extremities. Master Sheet Clerk: PSCB Transcribe Date/Time: Feb 09 2023 6:24P Dictated by : JORGE ALBERTO YOO MD This examination was interpreted and the report reviewed and electronically signed by: JORGE ALBERTO YOO MD on Feb 09 2023 6:24PM EST [id number] CN Normal [facility] Basic metabolic 2000 panelon 02-08-2023 Anion gap [Moles/Vol] 10 mmol/L Normal 9-18 [facility] Comment on above: Order Comment: Speci men Type: BLOOD SPECIMEN Ordering Facility: [facility] Address: [address] [place] [address] Performed By: #### 2 4321-2 #### [facility] CLIA [id number] 1 [place] [address] [place] Calcium [Mass/Vol] 8.6 mg/dL Normal 8.5-10.2 [facility] Comment on above: Order Comment: Speci men Type: BLOOD SPECIMEN Ordering Facility: [facility] Address: [address] [place] [address] Performed By: #### 2 4321-2 #### [facility] CLIA [id number] 1 [place] [address] [place] Chloride [Moles/Vol] 102 mmol/L Normal 97-105 [facility] Comment on above: Order Comment: Speci men Type: BLOOD SPECIMEN Ordering Facility: [facility] Address: [address] [place] [address] Performed By: #### 2 4321-2 #### [facility] CLIA [id number] 1 [place] [address] [place] CO2 [Moles/Vol] 20 mmol/L Low 22-30 [facility] Comment on above: Order Comment: Speci men Type: BLOOD SPECIMEN Ordering Facility: [facility] Address: [address] [place] [address] Performed By: #### 2 4321-2 #### [facility] CLIA [id number] [address] STATES OF [facility] Creatinine [Mass/Vol] 1.13 mg/dL Normal 0.73-1.22 [facility] Comment on above: Order Comment: Elisa dominique Type: BLOOD SPECIMEN Ordering Facility: [facility] Address: [address] [address] Performed By: #### 2 4321-2 #### [facility] CLIA [id number] [address] Creatinine and Glomerular filtration rate.predicted panel (S/P/Bld) 68 mL/min/1.73m??? Normal >=60 [facility] Comment on above: Order Comment: Elisa dominique Type: BLOOD SPECIMEN Ordering Facility: [facility] Address: [address] [place] [address] Result Comment: Christy mated Glomerular Filtration Rate [...] #### 2 4321-2 #### [facility] CLIA [id number] [address] STATES OF [facility] Glucose [Mass/Vol] 101 mg/dL High 74-99 [facility] Comment on above: Order Comment: Elisa dominique Type: BLOOD SPECIMEN Ordering Facility: [facility] Address: [address] [address] Result Comment: The [place] Diabetes Association (ADA) provides guidance for cutoff [...] Standards of Medical Care in Diabetes 2016, [place] [employer]. Diabetes Care. 2016.39(Suppl 1). Performed By: #### 2 4321-2 #### [facility] CLIA [id number] [address] STATES OF [facility] Potassium [Moles/Vol] 4.1 mmol/L Normal 3.7-5.1 [facility] Comment on above: Order Comment: Speci men Type: BLOOD SPECIMEN Ordering Facility: [facility] Address: [address] [place] [address] Performed By: #### 2 1-2 #### [facility] CLIA [id number] [address] Sodium [Moles/Vol] 132 mmol/L Low 136-144 [facility] Comment on above: Order Comment: Speci men Type: BLOOD SPECIMEN Ordering Facility: [facility] Address: [address] [address] Performed By: #### 2 1-2 #### [facility] CLIA [id number] [address] Urea nitrogen [Mass/Vol] 16 mg/dL Normal 9-24 [facility] Comment on above: Order Comment: Speci men Type: BLOOD SPECIMEN Ordering Facility: [facility] Address: [address] [address] Performed By: #### 2 4321-2 #### [facility] CLIA [id number] [address] [place] CBC panel Auto (Bld)on 02-08 Erythrocyte distribution width (RBC) [Ratio] 12.4 % Normal 11.5-15.0 [facility] Comment on above: Order Comment: Speci men Type: BLOOD SPECIMEN Ordering Facility: [facility] Address: [address] [address] Performed By: #### 2 4321-2 #### [facility] CLIA [id number] [address] Hematocrit (Bld) [Volume fraction] 34.0 % Low 39.0-51.0 [facility] Comment on above: Order Comment: Speci men Type: BLOOD SPECIMEN Ordering Facility: [facility] Address: [address] [place] [address] Performed By: #### 2 4321-2 #### [facility] CLIA [id number] [address] Hemoglobin (Bld) [Mass/Vol] 11.6 g/dL Low 13.0-17.0 [facility] Comment on above: Order Comment: Speci men Type: BLOOD SPECIMEN Ordering Facility: [facility] Address: [address] [place] [address] Performed By: #### 2 4321-2 #### [facility] CLIA [id number] [address] MCH (RBC) [Entitic mass] 30.8 pg Normal 26.0-34.0 [facility] Comment on above: Order Comment: Speci men Type: BLOOD SPECIMEN Ordering Facility: [facility] Address: [address] [place] [address] Performed By: #### 2 4321-2 #### [facility] CLIA [id number] [address] OF [facility] MCHC (RBC) [Mass/Vol] 34.1 g/dL Normal 30.5-36.0 [facility] Comment on above: Order Comment: Speci men Type: BLOOD SPECIMEN Ordering Facility: [facility] Address: [address] [place] [address] Performed By: #### 2 4321-2 #### [facility] CLIA [id number] [address] MCV (RBC) [Entitic vol] 90.2 fL Normal 80.0-100.0 [facility] Comment on above: Order Comment: Speci men Type: BLOOD SPECIMEN Ordering Facility: [facility] Address: [address] [address] Performed By: #### 2 4321-2 #### [facility] CLIA [id number] [address] Nucleated RBC (Bld) [#/Vol] 10*3/uL Normal <0.01 [facility] Comment on above: Order Comment: Speci men Type: BLOOD SPECIMEN Ordering Facility: [facility] Address: [address] [address] Performed By: #### 2 4321-2 #### [facility] CLIA [id number] [address] [place] Platelet mean volume (Bld) [Entitic vol] 11.5 fL Normal 9.0-12.7 [facility] Comment on above: Order Comment: Speci men Type: BLOOD SPECIMEN Ordering Facility: [facility] Address: [address] [address] Performed By: #### 2 1-2 #### [facility] CLIA [id number] [address] [place] Platelets (Bld) [#/Vol] 236 10*3/uL Normal 150-400 [facility] Comment on above: Order Comment: Speci men Type: BLOOD SPECIMEN Ordering Facility: [facility] Address: [address] [address] Performed By: #### 2 4321-2 #### [facility] CLIA [id number] [address] [place] RBC (Bld) [#/Vol] 3.77 10*6/uL Low 4.20-6.00 [facility] Comment on above: Order Comment: Speci men Type: BLOOD SPECIMEN Ordering Facility: [facility] Address: [address] [place] [address] Performed By: #### 2 4321-2 #### [facility] CLIA [id number] [address] [place] [address] [place] WBC (Bld) [#/Vol] 8.28 10*3/uL Normal 3.70-11.00 [facility] Comment on above: Order Comment: Speci men Type: BLOOD SPECIMEN Ordering Facility: [facility] Address: [address] [place] [address] Performed By: #### 2 4321-2 #### [facility] CLIA [id number] 1 [place] [address] [place] Absolute lymphocyte countOrd ered By: Neo Alcaraz on 02-07-2023 Lymphocytes Auto (Unsp spec) [#/Vol] 0.65 10*3/uL 0.83-4.51 [facility] Basic metabolic 2000 panelon 02-07-2023 Anion gap [Moles/Vol] 12 mmol/L Normal 9-18 [facility] Comment on above: Order Comment: Speci men Type: BLOOD SPECIMEN Ordering Facility: [facility] Address: [address] [place] [address] Performed By: #### 2 4321-2 #### [facility] CLIA [id number] 1 [place] [address] [place] Calcium [Mass/Vol] 8.3 mg/dL Low 8.5-10.2 [facility] Comment on above: Order Comment: Speci men Type: BLOOD SPECIMEN Ordering Facility: [facility] Address: [address] [place] [address] Performed By: #### 2 4321-2 #### [facility] CLIA [id number] 1 [place] [address] [place] Chloride [Moles/Vol] 106 mmol/L High 97-105 [facility] Comment on above: Order Comment: Speci men Type: BLOOD SPECIMEN Ordering Facility: [facility] Address: [address] [place] [address] Performed By: #### 2 4321-2 #### [facility] CLIA [id number] 1 [place] [address] [place] CO2 [Moles/Vol] 18 mmol/L Low 22-30 [facility] Comment on above: Order Comment: Speci men Type: BLOOD SPECIMEN Ordering Facility: [facility] Address: [address] [address] Performed By: #### 2 4321-2 #### [facility] CLIA [id number] [address] [place] Creatinine [Mass/Vol] 1.21 mg/dL Normal 0.73-1.22 [facility] Comment on above: Order Comment: Elisa catina Type: BLOOD SPECIMEN Ordering Facility: [facility] Address: [address] [address] Performed By: #### 2 4321-2 #### [facility] CLIA [id number] [address] Creatinine and Glomerular filtration rate.predicted panel (S/P/Bld) 62 mL/min/1.73m??? Normal >=60 [facility] Comment on above: Order Comment: Elisa catina Type: BLOOD SPECIMEN Ordering Facility: [facility] Address: [address] [place] [address] Result Comment: Christy mated Glomerular Filtration Rate [...] #### 2 4321-2 #### [facility] CLIA [id number] [address] [place] [address] [place] Glucose [Mass/Vol] 116 mg/dL High 74-99 [facility] Comment on above: Order Comment: Caydenjoseline dominique Type: BLOOD SPECIMEN Ordering Facility: [facility] Address: [address] [place] [address] Result Comment: The [place] Diabetes Association (ADA) provides guidance for cutoff [...] Standards of Medical Care in Diabetes 2016, [place] [employer]. Diabetes Care. 2016.39(Suppl 1). Performed By: #### 2 4321-2 #### [facility] CLIA [id number] [address] OF [facility] Potassium [Moles/Vol] 4.1 mmol/L Normal 3.7-5.1 [facility] Comment on above: Order Comment: Elisa dominique Type: BLOOD SPECIMEN Ordering Facility: [facility] Address: [address] [place] [address] Performed By: #### 2 4321-2 #### [facility] CLIA [id number] [address] [place] [address] [place] [facility] Sodium [Moles/Vol] 136 mmol/L Normal 136-144 [facility] Comment on above: Order Comment: Elisa dominique Type: BLOOD SPECIMEN Ordering Facility: [facility] Address: [address] [place] [address] Performed By: #### 2 4321-2 #### [facility] CLIA [id number] [address] [place] [address] [facility] Urea nitrogen [Mass/Vol] 18 mg/dL Normal 9-24 [facility] Comment on above: Order Comment: Elisa dominique Type: BLOOD SPECIMEN Ordering Facility: [facility] Address: [address] [address] Performed By: #### 2 4321-2 #### [facility] CLIA [id number] 1 [place] [address] [place] Basophil percentageOrdered B y: Neo Kieran on 02-07-2023 Basophils/100 WBC (Bld) 0.4 % 0-1 [facility] Chloride [Moles/Vol] 110 mmol/L 98-107 [facility] Eosinophils/100 WBC (Bld) 2.3 % 0-5 [facility] Glucose [Mass/Vol] 113 mg/dL 74-106 [facility] Comment on above: Fasting Glucose resu lt from 100 to 125 mg/dL suggests IMPAIRED HOMEOSTASIS per A.D.A. criteria. Neutrophils (Bld) [#/Vol] 7.3 10*3/uL 2.0-7.7 [facility] Neutrophils/100 WBC (Bld) 80.6 % 47-70 [facility] Potassium [Moles/Vol] 3.9 mmol/L 3.5-5.1 [facility] Sodium [Moles/Vol] 137 mmol/L 136-145 [facility] WBC (Bld) [#/Vol] 9.1 10*3/uL 4.4-11.0 [facility] Blood erythrocytes count (nu mber/volume)Ordered By: Neo Alcaraz on 02-07-2023 RBC (Bld) [#/Vol] 4.19 10*6/uL 4.6-6.2 [facility] Blood hemoglobin measurement (mass/volume)Ordered By: Neo Alcaraz on 02-07-2023 Hemoglobin (Bld) [Mass/Vol] 12.8 g/dL 13.0-16.5 [facility] Blood lymphocytes/100 leukoc ytesOrdered By: Neo Alcaraz on 02-07-2023 Lymphocytes/100 WBC (Bld) 7.2 % 19-41 [facility] Blood monocytes/100 leukocyt esOrdered By: Neo Alcaraz on 02-07-2023 Monocytes/100 WBC (Bld) 8.9 % 0-10 [facility] Blood platelet mean volumeOr dered By: Neo Alcaraz on 02-07-2023 Platelet mean volume (Bld) [Entitic vol] 10.6 fL 6.2-12.0 [facility] CBC panel Auto (Bld)on 02-07 Erythrocyte distribution width (RBC) [Ratio] 12.3 % Normal 11.5-15.0 [facility] Comment on above: Order Comment: Speci men Type: BLOOD SPECIMEN Ordering Facility: [facility] Address: [address] [place] [id number] Performed By: #### 5 9588-2 #### [facility] CLIA [id number] [address] Hematocrit (Bld) [Volume fraction] 37.5 % Low 39.0-51.0 [facility] Comment on above: Order Comment: Speci men Type: BLOOD SPECIMEN Ordering Facility: [facility] Address: [address] [place] [address] Performed By: #### 5 8410-2 #### [facility] CLIA [id number] [address] OF [facility] Hemoglobin (Bld) [Mass/Vol] 12.2 g/dL Low 13.0-17.0 [facility] Comment on above: Order Comment: Speci men Type: BLOOD SPECIMEN Ordering Facility: [facility] Address: [address] [place] [address] Performed By: #### 5 8410-2 #### [facility] CLIA [id number] [address] MCH (RBC) [Entitic mass] 30.8 pg Normal 26.0-34.0 [facility] Comment on above: Order Comment: Speci men Type: BLOOD SPECIMEN Ordering Facility: [facility] Address: [address] [place] [address] Performed By: #### 5 8410-2 #### [facility] CLIA [id number] [address] MCHC (RBC) [Mass/Vol] 32.5 g/dL Normal 30.5-36.0 [facility] Comment on above: Order Comment: Speci men Type: BLOOD SPECIMEN Ordering Facility: [facility] Address: [address] [place] [address] Performed By: #### 5 8410-2 #### [facility] CLIA [id number] [address] MCV (RBC) [Entitic vol] 94.7 fL Normal 80.0-100.0 [facility] Comment on above: Order Comment: Speci men Type: BLOOD SPECIMEN Ordering Facility: [facility] Address: [address] [address] Performed By: #### 5 8410-2 #### [facility] CLIA [id number] [address] Nucleated RBC (Bld) [#/Vol] 10*3/uL Normal <0.01 [facility] Comment on above: Order Comment: Speci men Type: BLOOD SPECIMEN Ordering Facility: [facility] Address: [address] [address] Performed By: #### 5 8410-2 #### [facility] CLIA [id number] [address] Platelet mean volume (Bld) [Entitic vol] 11.0 fL Normal 9.0-12.7 [facility] Comment on above: Order Comment: Speci men Type: BLOOD SPECIMEN Ordering Facility: [facility] Address: [address] [address] Performed By: #### 5 8410-2 #### [facility] CLIA [id number] [address] Platelets (Bld) [#/Vol] 165 10*3/uL Normal 150-400 [facility] Comment on above: Order Comment: Speci men Type: BLOOD SPECIMEN Ordering Facility: [facility] Address: [address] [address] Performed By: #### 5 8410-2 #### [facility] CLIA [id number] [address] [place] RBC (Bld) [#/Vol] 3.96 10*6/uL Low 4.20-6.00 [facility] Comment on above: Order Comment: Speci men Type: BLOOD SPECIMEN Ordering Facility: [facility] Address: [address] [address] Performed By: #### 5 8410-2 #### [facility] CLIA [id number] [address] WBC (Bld) [#/Vol] 7.55 10*3/uL Normal 3.70-11.00 [facility] Comment on above: Order Comment: Speci men Type: BLOOD SPECIMEN Ordering Facility: [facility] Address: [place] [address] Performed By: #### 5 8410-2 #### [facility] CLIA [id number] [address] CONSULTon 02-07-2023 CONSULT HNO ID: [id number] Author: Jose Mcneil MD Service: Urology Author [...] 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 [...] Procedure Laterality Date COLONOSCOP W/ OR W/O [facility] SPEC 11/21/15 Colonoscopy COLONOSCOPY W/BX 10/03/06 PROSTATE [...] components found for: UA Urine Culture: RADIOLOGY: [facility] CT NON-RADIOLOGY -NBNR [facility] - CT Images - Obtained Outside of Imaging [place] IMPRESSION: 77 year old male with gross hematuria. 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 Normal [facility] Determination of erythrocyte mean corpuscular volume (MCV)Ordered By: Neo Alcaraz on 02-07-2023 MCV (RBC) [Entitic vol] 90.2 fL 80-94 [facility] ED NOTEon 02-07-2023 ED NOTE HNO ID: [id number] Author: Margie Amezquita RN Service: Emergency Medicine Author Type: Registered Nurse Type: ED Notes Filed: 02/07/2023 8:08 PM Note Text: Yaz updated at this time with pt's permission. Pt updated on care plan, no other questions at this time. Normal [facility] ED NOTE HNO ID: [id number] Author: Margie Amezquita RN Service: Emergency Medicine Author Type: Registered Nurse Type: ED Notes Filed: 02/07/2023 8:06 PM Note Text: 1000 cc emptied from urine bag, pt still on continuous bladder irrigation Normal [facility] ED NOTE HNO ID: [id number] Author: Roberta Salazar, RN Service: Emergency Medicine Author Type: Registered Nurse Type: ED Notes Filed: 02/07/2023 6:08 PM Note Text: Pt arrives to ED from [facility] for hematuria. Pt noted this morning some bloody urine. Pt had catheter changed twice today and irrigated it. Pt arrives with bloody urine. [facility] ED NOTE HNO ID: [id number] Author: Kourtney Mendez, [place] Service: ? Author Type: Registered Nurse Type: ED Notes Filed: 02/07/2023 6:05 PM Note Text: Bed: 46-ED Expected date: Expected time: Means of arrival: Comments: squad Normal [facility] ED PROV NOTEon 02-07-2023 ED PROV NOTE HNO ID: [id number] Author: Cameron Vicente MD Service: Emergency Medicine [...] developed urinary retention and went to the [facility] ED today. They attempted to place a [...] suprapubic tenderness is present. Genitourinary: Comments: [address] [place] catheter in place. There is bright [...] Patient does have a Worthy catheter, [address] They were unable to place a three-way catheter at [facility]. Unable to clear the blood. Patient sent for urology consult. Urology was consulted on arrival and they recommended admission for observation and irrigation at this time. Patient be admitted to Dr. Grewal from urology. SIGNATURE: MD DEVANTE Grace CAMERON D 02/07/23 [id number] Attending Note I evaluated the patient and personally participated in the hurd components. I was present for hurd portions and personally supervised any/all resuscitation/pro (more content not included)... Normal [facility] Hematocrit Auto (Bld) [Volum e fraction]Ordered By: Neo Alcaraz on 02-07-2023 Hematocrit (Bld) [Volume fraction] 37.8 % 40-54 [facility] - Chemistry and C hemistry - challengeOrdered By: Neo Alcaarz on 02-07-2023 CO2 [Moles/Vol] 19.0 mmol/L 21.0-32.0 [facility] Urea nitrogen/Creatinine [Mass ratio] 14.5 mg/mg 10-20 [facility] - Hematology and Cell countsOrdered By: Neo Alcaraz on 02-07-2023 Erythrocyte distribution width (RBC) [Entitic vol] 40.5 fL 35.1-43.9 [facility] Erythrocyte distribution width (RBC) [Ratio] 12.3 % 11.6-14.6 [facility] Immature granulocytes/100 WBC (Bld) 0.600 % 0.0-0.9 [facility] Comment on above: IG% - Immature Granu locytes (promyelocytes, myelocytes and metamyelocytes) > 1% indicates that a LEFT SHIFT is Present. MCH (RBC) [Entitic mass] 30.5 pg 27.0-32.0 [facility] Nucleated RBC/100 WBC (Bld) [Ratio] 0 % 0-5 [facility] MCHC Auto (RBC) [Mass/Vol]Or dered By: Neo Alcaraz on 02-07-2023 MCHC (RBC) [Mass/Vol] 33.9 g/dL 32-36 [facility] No Panel InformationOrdered By: Neo Alcaraz on 02-07-2023 Estimated Creatinine Clearance Calc 41.45 ml/min [facility] Estimated GFR (MDRD) Amer 55 mL/min >60 [facility] Comment on above: GFR Calc Estimated GFR (MDRD) Non-Af Amer 45 mL/min >60 [facility] Comment on above: Non- GFR Calc Platelets bldOrdered By: Arnoldo Alcaraz on 02-07-2023 Platelets (Bld) [#/Vol] 241 10*3/uL 150-450 [facility] Serum or plasma calcium janusz urement (mass/volume)Ordered By: eNo Alcaraz on 02-07-2023 Calcium [Mass/Vol] 9.0 mg/dL 8.5-10.1 [facility] Serum or plasma creatinine m easurement (mass/volume)Ordered By: Neo Alcaraz on 02-07-2023 Creatinine [Mass/Vol] 1.59 mg/dL 0.70-1.30 [facility] Comment on above: The validity of the calculated GFR & GFRAA in patients over 70 years has not been determined. Clinical correlation is essential. Serum or plasma urea nitroge n measurement (mass/volume)Ordered By: Neo Alcaraz on 02-07-2023 Urea nitrogen [Mass/Vol] 23 mg/dL 7-18 [facility] Thin prep Papanicolaou smear with manual screeningOrdered By: Neo Alcaraz on 02-07-2023 Thin prep Papanicolaou smear with manual screening 8 5-15 [facility] Absolute lymphocyte countOrd ered By: Columba Decker on 02-02-2023 Lymphocytes Auto (Unsp spec) [#/Vol] 0.58 10*3/uL 0.83-4.51 [facility] Basophil percentageOrdered B y: Columba Decker on 02-02-2023 Basophil percentage 0-5 SEEN /hpf 0-5 [facility] Basophils/100 WBC (Bld) 0.6 % 0-1 [facility] Chloride [Moles/Vol] 108 mmol/L 98-107 [facility] Eosinophils/100 WBC (Bld) 0.9 % 0-5 [facility] Glucose [Mass/Vol] 120 mg/dL 74-106 [facility] Comment on above: Fasting Glucose resu lt from 100 to 125 mg/dL suggests IMPAIRED HOMEOSTASIS per A.D.A. criteria. Neutrophils (Bld) [#/Vol] 5.4 10*3/uL 2.0-7.7 [facility] Neutrophils/100 WBC (Bld) 81.7 % 47-70 [facility] Potassium [Moles/Vol] 4.0 mmol/L 3.5-5.1 [facility] Sodium [Moles/Vol] 136 mmol/L 136-145 [facility] WBC (Bld) [#/Vol] 6.6 10*3/uL 4.4-11.0 [facility] Bilirubin Test strip Ql (U)O rdered By: Columba Decker on 02-02-2023 Bilirubin Ql (U) Negative Negative [facility] Blood erythrocytes count (nu mber/volume)Ordered By: Columba Decker on 02-02-2023 RBC (Bld) [#/Vol] 4.25 10*6/uL 4.6-6.2 [facility] Blood hemoglobin measurement (mass/volume)Ordered By: Columba Decker on 02-02-2023 Hemoglobin (Bld) [Mass/Vol] 13.1 g/dL 13.0-16.5 [facility] Blood lymphocytes/100 leukoc ytesOrdered By: Columba Decker on 02-02-2023 Lymphocytes/100 WBC (Bld) 8.7 % 19-41 [facility] Blood manual differential co mment interpretation (narrative result)Ordered By: Columba Decker on 02-02-2023 Manual differential comment Kristian (Bld) [Interp] SCANNED [facility] Blood monocytes/100 leukocyt esOrdered By: Columba Decker on 02-02-2023 Monocytes/100 WBC (Bld) 7.8 % 0-10 [facility] Blood platelet mean volumeOr dered By: Columba Decker on 02-02-2023 Platelet mean volume (Bld) [Entitic vol] 10.4 fL 6.2-12.0 [facility] Culture, urineOrdered By: Leodan Decker on 02-02-2023 Bacteria identified Cx Nom (U) Staphylococcus haemolyticus [facility] Determination of erythrocyte mean corpuscular volume (MCV)Ordered By: Columba Decker on 02-02-2023 MCV (RBC) [Entitic vol] 91.1 fL 80-94 [facility] Hematocrit Auto (Bld) [Volum e fraction]Ordered By: Columba Decker on 02-02-2023 Hematocrit (Bld) [Volume fraction] 38.7 % 40-54 [facility] INR in Blood by Coagulation assayOrdered By: Columba Decker on 02-02-2023 INR Coag (Bld) [Relative time] 1.1 {INR} [facility] Ketones Test strip Ql (U)Ord ered By: Columba Decker on 02-02-2023 Ketones Ql (U) 5 mg/dl Negative [facility] Laboratory - Chemistry and C hemistry - challengeOrdered By: Columba Decker on 02-02-2023 CO2 [Moles/Vol] 20.0 mmol/L 21.0-32.0 [facility] Urea nitrogen/Creatinine [Mass ratio] 14.1 mg/mg 10-20 [facility] Laboratory - CoagulationOrde red By: Columba Decker on 02-02-2023 aPTT Coag (Bld) [Time] 31.4 s 24.1-36.2 [facility] PT Coag (PPP) [Time] 14.5 s 11.7-14.9 [facility] Laboratory - Hematology and Cell countsOrdered By: Columba Decker on 02-02-2023 Erythrocyte distribution width (RBC) [Entitic vol] 41.3 fL 35.1-43.9 [facility] Erythrocyte distribution width (RBC) [Ratio] 12.4 % 11.6-14.6 [facility] Immature granulocytes/100 WBC (Bld) 0.300 % 0.0-0.9 [facility] Comment on above: IG% - Immature Granu locytes (promyelocytes, myelocytes and metamyelocytes) > 1% indicates that a LEFT SHIFT is Present. MCH (RBC) [Entitic mass] 30.8 pg 27.0-32.0 [facility] Nucleated RBC/100 WBC (Bld) [Ratio] 0 % [facility] [Mass/Vol]Or dered By: Columba Decker on 02-02-2023 MCHC (RBC) [Mass/Vol] 33.9 g/dL 32-36 [facility] Mucus LM Ql (Urine sed)Order ed By: Columba Decker on 02-02-2023 Mucus Ql (Urine sed) 0 SEEN /hpf [facility] Nitrite Test strip Ql (U)Ord ered By: Columba Decker on 02-02-2023 Nitrite Ql (U) Positive Negative [facility] No Panel InformationOrdered By: Columba Decker on 02-02-2023 Estimated Creatinine Clearance Calc 46.41 ml/min [facility] Estimated GFR (MDRD) Amer 63 mL/min >60 [facility] Comment on above: GFR Calc Estimated GFR (MDRD) Non-Af Amer 52 mL/min >60 [facility] Comment on above: Non- GFR Calc Platelets bldOrdered By: Chana Decker on 02-02-2023 Platelets (Bld) [#/Vol] 228 10*3/uL 150-450 [facility] Protein Test strip Ql (U)Ord ered By: Columba Decker on 02-02-2023 Protein Ql (U) 100 mg/dl Negative [facility] Serum or plasma calcium janusz urement (mass/volume)Ordered By: Columba Decker on 02-02-2023 Calcium [Mass/Vol] 8.7 mg/dL 8.5-10.1 [facility] Serum or plasma creatinine m easurement (mass/volume)Ordered By: Columba Decker on 02-02-2023 Creatinine [Mass/Vol] 1.42 mg/dL 0.70-1.30 [facility] Comment on above: The validity of the calculated GFR & GFRAA in patients over 70 years has not been determined. Clinical correlation is essential. Serum or plasma urea nitroge n measurement (mass/volume)Ordered By: Columba Decker on 02-02-2023 Urea nitrogen [Mass/Vol] 20 mg/dL 7-18 [facility] Squamous epithelial cells de tection in urine sediment by light microscopyOrdered By: Columba Dceker on 02-02-2023 Epithelial cells.squamous LM Ql (Urine sed) 0 SEEN /hpf 0-5 [facility] Thin prep Papanicolaou smear with manual screeningOrdered By: Columba Decker on 02-02-2023 Thin prep Papanicolaou smear with manual screening 8 5-15 [facility] Urine blood detectionOrdered By: Columba Decker on 02-02-2023 RBC Ql (U) 250 /ul Negative [facility] RBC Ql (U) 50-100 SEEN /hpf 0-5 [facility] Urine clarityOrdered By: Chana Decker on 02-02-2023 Clarity (U) Clear Clear [facility] Urine color determinationOrd ered By: Columba Decker on 02-02-2023 Color (U) Yellow Yellow [facility] Urine glucose detectionOrder ed By: Columba Decker on 02-02-2023 Glucose Ql (U) Normal mg/dl Normal [facility] Urine leukocyte esterase det ection by dipstickOrdered By: Columba Decker on 02-02-2023 Leukocyte esterase Test strip Ql (U) 100 /ul Negative [facility] Urine pHOrdered By: Columba Decker on 02-02-2023 pH (U) 6.5 [pH] 5.0 - 8.0 [facility] Urine sediment bacteria coun t by microscopy (number/high power field)Ordered By: Columba Decker on 02-02-2023 Bacteria LM.HPF (Urine sed) [#/Area] RARE /hpf None Seen [facility] Urine specific gravity measu rementOrdered By: Columba Decker on 02-02-2023 Specific gravity (U) [Rel density] 1.005 1.002-1.030 [facility] Urobilinogen Auto test strip Ql (U)Ordered By: Columba Decker on 02-02-2023 Urobilinogen Ql (U) Normal mg/dl Normal [facility] Basophil percentageOrdered B y: Eduardo Guille on 01-03-2023 Chloride [Moles/Vol] 109 mmol/L 98-107 [facility] Cholesterol [Mass/Vol] 177 mg/dL <200 [facility] Comment on above: <200 mg/dL Desirable 200-240 mg/dL Borderline >240 mg/dL High Risk Glucose [Mass/Vol] 112 mg/dL 74-106 [facility] Comment on above: Fasting Glucose resu lt from 100 to 125 mg/dL suggests IMPAIRED HOMEOSTASIS per A.D.A. criteria. Potassium [Moles/Vol] 4.1 mmol/L 3.5-5.1 [facility] Sodium [Moles/Vol] 138 mmol/L 136-145 [facility] Triglyceride [Mass/Vol] 100 mg/dL <199 [facility] Comment on above: The drugs N-Acetylcy steine and Metamizole may falsely depress this assay.Serum Triglycerides Reference Interval Normal <150 mg/dL Borderline high 150 - 199 mg/dL High 200 - 499 mg/dL Very High > or = 500 mg/dL Laboratory - Chemistry and C hemistry - challengeOrdered By: Eduardo Han on 01-03-2023 CO2 [Moles/Vol] 23.0 mmol/L 21.0-32.0 [facility] Urea nitrogen/Creatinine [Mass ratio] 16.7 mg/mg 10-20 [facility] No Panel InformationOrdered By: Eduardo Han on 01-03-2023 Estimated GFR (MDRD) Amer 72 mL/min >60 [facility] Comment on above: GFR Calc Estimated GFR (MDRD) Non-Af Amer 59 mL/min >60 [facility] Comment on above: Non- GFR Calc Serum or plasma calcium janusz urement (mass/volume)Ordered By: Eduardo Han on 01-03-2023 Calcium [Mass/Vol] 8.9 mg/dL 8.5-10.1 [facility] Serum or plasma cholesterol in HDL measurement (mass/volume)Ordered By: Eduardo Han on 01-03-2023 Cholesterol in HDL [Mass/Vol] 49 mg/dL >40 [facility] Comment on above: The drugs N-Acetylcy steine and Metamizole may falsely depress this assay. Reference Range HDL <40 mg/dL Low HDL Cholesterol HDL >or= 60 mg/dL High HDL Cholesterol Serum or plasma cholesterol in VLDL measurement (mass/volume)Ordered By: Eduardo Han on 01-03-2023 Cholesterol in VLDL [Mass/Vol] 20 mg/dL 5-40 [facility] Serum or plasma creatinine m easurement (mass/volume)Ordered By: Eduardo Han on 01-03-2023 Creatinine [Mass/Vol] 1.26 mg/dL 0.70-1.30 [facility] Comment on above: The validity of the calculated GFR & GFRAA in patients over 70 years has not been determined. Clinical correlation is essential. Serum or plasma low density lipoprotein (LDL) cholesterol measurement (mass/volume)Ordered By: Eduardo Han on 01-03-2023 Cholesterol in LDL [Mass/Vol] 108 mg/dL 0-130 [facility] Serum or plasma urea nitroge n measurement (mass/volume)Ordered By: Eduardo Han on 01-03-2023 Urea nitrogen [Mass/Vol] 21 mg/dL 7-18 [facility] Thin prep Papanicolaou smear with manual screeningOrdered By: Eduardo Han on 01-03-2023 Thin prep Papanicolaou smear with manual screening 6 5-15 [facility] No Panel InformationOrdered By: Zhao Gilliland on 12-03-2022 Prostate Specific Antigen Total < 0.01 ng/mL 0.0-4.0 [facility] Comment on above: This test was perfor med using the TPSA assay method for the[employer] chemistry system. Values obtained with differentassay methods cannot be used interchangably.When changing PSA assays in the course of monitoring apatient, additional sequential testing should be carriedout to confirm baseline values. Basophil percentageOrdered B y: Dr. Han on 07-05-2022 Bilirubin [Mass/Vol] 0.60 mg/dL 0.20-1.00 [facility] Comment on above: For patients on eltr ombopag therapy, use of Dimension [place] TBIL is not recommended. Chloride [Moles/Vol] 108 mmol/L 98-107 [facility] Cholesterol [Mass/Vol] 181 mg/dL <200 [facility] Comment on above: <200 mg/dL Desirable 200-240 mg/dL Borderline >240 mg/dL High Risk Glucose [Mass/Vol] 121 mg/dL 74-106 [facility] Comment on above: Fasting Glucose resu lt from 100 to 125 mg/dL suggests IMPAIRED HOMEOSTASIS per A.D.A. criteria. Potassium [Moles/Vol] 4.2 mmol/L 3.5-5.1 [facility] Protein [Mass/Vol] 7.6 g/dL 6.4-8.2 [facility] Sodium [Moles/Vol] 139 mmol/L 136-145 [facility] Triglyceride [Mass/Vol] 101 mg/dL <199 [facility] Comment on above: The drugs N-Acetylcy steine and Metamizole may falsely depress this assay.Serum Triglycerides Reference Interval Normal <150 mg/dL Borderline high 150 - 199 mg/dL High 200 - 499 mg/dL Very High > or = 500 mg/dL Laboratory - Chemistry and C hemistry - challengeOrdered By: Dr. Han on 07-05-2022 ALP [Catalytic activity/Vol] 77 U/L 45-117 [facility] ALT [Catalytic activity/Vol] 19 U/L 16-61 [facility] CO2 [Moles/Vol] 23.0 mmol/L 21.0-32.0 [facility] Globulin (S) [Mass/Vol] 3.9 g/dL 2.2-4.2 [facility] Urea nitrogen/Creatinine [Mass ratio] 13.6 mg/mg 10-20 [facility] No Panel InformationOrdered By: Dr. Han on 07-05-2022 Estimated GFR (MDRD) Amer 68 mL/min >60 [facility] Comment on above: GFR Calc Estimated GFR (MDRD) Non-Af Amer 56 mL/min >60 [facility] Comment on above: Non- GFR Calc Prostate Specific Antigen Total < 0.01 ng/mL 0.0-4.0 [facility] Comment on above: This test was perfor med using the TPSA assay method for the[employer] chemistry system. Values obtained with differentassay methods cannot be used interchangably.When changing PSA assays in the course of monitoring apatient, additional sequential testing should be carriedout to confirm baseline values. Serum or plasma albumin janusz urement (mass/volume)Ordered By: Dr. Han on 07-05-2022 Albumin [Mass/Vol] 3.7 g/dL 3.2-5.0 [facility] Serum or plasma albumin/glob ulin mass ratioOrdered By: Dr. Han on 07-05-2022 Albumin/Globulin [Mass ratio] 0.9 {ratio} 0.9-2.4 [facility] Serum or plasma calcium janusz urement (mass/volume)Ordered By: Dr. Han on 07-05-2022 Calcium [Mass/Vol] 8.9 mg/dL 8.5-10.1 [facility] Serum or plasma cholesterol in HDL measurement (mass/volume)Ordered By: Dr. Han on 07-05-2022 Cholesterol in HDL [Mass/Vol] 51 mg/dL >40 [facility] Comment on above: The drugs N-Acetylcy steine and Metamizole may falsely depress this assay. Reference Range HDL <40 mg/dL Low HDL Cholesterol HDL >or= 60 mg/dL High HDL Cholesterol Serum or plasma cholesterol in VLDL measurement (mass/volume)Ordered By: Dr. Han on 07-05-2022 Cholesterol in VLDL [Mass/Vol] 20 mg/dL 5-40 [facility] Serum or plasma creatinine m easurement (mass/volume)Ordered By: Dr. Han on 07-05-2022 Creatinine [Mass/Vol] 1.32 mg/dL 0.70-1.30 [facility] Comment on above: The validity of the calculated GFR & GFRAA in patients over 70 years has not been determined. Clinical correlation is essential. Serum or plasma low density lipoprotein (LDL) cholesterol measurement (mass/volume)Ordered By: Dr. Han on 07-05-2022 Cholesterol in LDL [Mass/Vol] 110 mg/dL 0-130 [facility] Serum or plasma urea nitroge n measurement (mass/volume)Ordered By: Dr. Han on 07-05-2022 Urea nitrogen [Mass/Vol] 18 mg/dL 7-18 [facility] Serum or plasma uric acid me asurement (mass/volume)Ordered By: Dr. Han on 07-05-2022 Urate [Mass/Vol] 8.3 mg/dL 3.5-7.2 [facility] Comment on above: The drugs N-Acetylcy steine and Metamizole may falsely depress this assay. Thin prep Papanicolaou smear with manual screeningOrdered By: Dr. Han on 07-05-2022 Thin prep Papanicolaou smear with manual screening 17 U/L 15-37 [facility] Thin prep Papanicolaou smear with manual screening 8 5-15 [facility] No Panel Informationon 12-28 Prostate Specific Antigen Total 0.03 ng/mL 0.0-4.0 [facility] Work Phone: Comment on above: This test was perfor med using the TPSA assay method for the[employer] chemistry system. Values obtained with differentassay methods cannot be used interchangably.When changing PSA assays in the course of monitoring apatient, additional sequential testing should be carriedout to confirm baseline values. Vital Signs Date Time Vital Sign Value Performing Clinician Faci lity 01-07-2025 14:10-0400 Body height 175.[address] Kelvin Han MD Work Phone: [facility] 01-07-2025 14:10-0400 Body mass index (BMI) [Ratio] 29.3 kg/m2 Dr. Kelvin Han MD Work Phone: [facility] 01-07-2025 14:10-0400 Body temperature 98.1 [degF] Dr. Kelvin Han MD Work Phone: [facility] 01-07-2025 14:10-0400 Body weight 90.[address] Kelvin Han MD Work Phone: [facility] 01-07-2025 14:10-0400 Diastolic blood pressure 70 mm[Hg] Dr. Kelvin Han MD Work Phone: [facility] 01-07-2025 14:10-0400 Heart rate 89 /min Dr. Kelvin Han MD Work Phone: [facility] 01-07-2025 14:10-0400 Respiratory rate 16 /min Dr. Kelvin Han MD Work Phone: [facility] 01-07-2025 14:10-0400 SaO2% (BldA) [Mass fraction] 99 % Dr. Kelvin Han MD Work Phone: 1(209)476-613351 [place] [address] 01-07-2025 14:10-0400 Systolic blood pressure 118 mm[Hg] Dr. Kelvin Han MD Work Phone: 8(456)191-662451 [place] [address] 11-18-2024 23:02-0400 Body temperature 98.2 [degF] Dr. Kelvin Han MD Work Phone: 7(853)390-818851 [place] [address] 11-18-2024 23:02-0400 Diastolic blood pressure 82 mm[Hg] Dr. Kelvin Han MD Work Phone: 6(165)038-538351 [place] [address] 11-18-2024 23:02-0400 Heart rate 89 /min Dr. Kelvin Han MD Work Phone: 0(794)230-889251 [place] [address] 11-18-2024 23:02-0400 Respiratory rate 16 /min Dr. Kelvin Han MD Work Phone: 4(222)866-190451 [place] [address] 11-18-2024 23:02-0400 SaO2% (BldA) [Mass fraction] 98 % Dr. Kelvin Han MD Work Phone: 7(501)906-899851 [place] [address] 11-18-2024 23:02-0400 Systolic blood pressure 120 mm[Hg] Dr. Kelvin Han MD Work Phone: 7(462)032-675351 [place] [address] 11-18-2024 22:26-0400 Body height 175.[address] Kelvin Han MD Work Phone: 8(457)711-211751 [place] [address] 11-18-2024 22:26-0400 Body mass index (BMI) [Ratio] 28.3 kg/m2 Dr. Kelvin Han MD Work Phone: 4(471)446-282451 [place] [address] 11-18-2024 22:26-0400 Body weight 86.[address] Kelvin Han MD Work Phone: 6(565)486-085251 [place] [address] 11-14-2024 00:46-0400 Body temperature 97.6 [degF] Dr. Kelvin Han MD Work Phone: 9(394)379-978351 [place] [address] 11-14-2024 00:46-0400 Diastolic blood pressure 77 mm[Hg] Dr. Kelvin Han MD Work Phone: [facility] 11-14-2024 00:46-0400 Heart rate 69 /min Dr. Kelvin Han MD Work Phone: [facility] 11-14-2024 00:46-0400 Respiratory rate 16 /min Dr. Kelvin Han MD Work Phone: [facility] 11-14-2024 00:46-0400 SaO2% (BldA) [Mass fraction] 97 % Dr. Kelvin Han MD Work Phone: 3(056)108-365458 [place] [address] 11-14-2024 00:46-0400 Systolic blood pressure 117 mm[Hg] Dr. Kelvin Han MD Work Phone: 4(172)219-622451 [place] [address] 11-13-2024 20:29-0400 Body height 175.[address] Kelvin Han MD Work Phone: 1(527)080-798251 [place] [address] 11-13-2024 20:29-0400 Body mass index (BMI) [Ratio] 28 kg/m2 Dr. Kelvin Han MD Work Phone: 3(974)703-851751 [place] [address] 11-13-2024 20:29-0400 Body weight 85.[address] Kelvin Han MD Work Phone: 5(441)934-463800 [address] 10-16-2024 03:03-0400 Body temperature 98 [degF] Dr. Kelvin Han MD Work Phone: [facility] 10-16-2024 03:03-0400 Diastolic blood pressure 56 mm[Hg] Dr. Kelvin Han MD Work Phone: 6(536)320-304300 [address] 10-16-2024 03:03-0400 Heart rate 69 /min Dr. Kelvin Han MD Work Phone: 6(216)511-293458 [place] [address] 10-16-2024 03:03-0400 Respiratory rate 16 /min Dr. Kelvin Han MD Work Phone: 8(459)987-018658 [place] [address] 10-16-2024 03:03-0400 SaO2% (BldA) [Mass fraction] 99 % Dr. Kelvin Han MD Work Phone: [facility] 10-16-2024 03:03-0400 Systolic blood pressure 128 mm[Hg] Dr. Kelvin Han MD Work Phone: [facility] 10-16-2024 01:50-0400 Body height 175.[address] Kelvin Han MD Work Phone: 0(972)171-077158 [place] [address] 10-16-2024 01:50-0400 Body mass index (BMI) [Ratio] 27.7 kg/m2 Dr. Kelvin Han MD Work Phone: 4(473)001-492158 [place] [address] 10-16-2024 01:50-0400 Body weight 85.[address] Kelvin Han MD Work Phone: 8(961)568-505058 [place] [address] 08-20-2024 14:30-0400 Body temperature 98.3 [degF] Dr. Kelvin Han MD Work Phone: [facility] 08-20-2024 14:30-0400 Diastolic blood pressure 68 mm[Hg] Dr. Kelvin Han MD Work Phone: [facility] 08-20-2024 14:30-0400 Heart rate 70 /min Dr. Kelvin Han MD Work Phone: [facility] 08-20-2024 14:30-0400 Respiratory rate 16 /min Dr. Kelvin Han MD Work Phone: [facility] 08-20-2024 14:30-0400 SaO2% (BldA) [Mass fraction] 97 % Dr. Kelvin Han MD Work Phone: [facility] 08-20-2024 14:30-0400 Systolic blood pressure 126 mm[Hg] Dr. Kelvin Han MD Work Phone: [facility] 08-20-2024 11:03-0400 Body height 175.[address] Kelvin Han MD Work Phone: [facility] 08-20-2024 11:03-0400 Body weight 90.[address] Kelvin Han MD Work Phone: [facility] 08-19-2024 03:18-0400 Body mass index (BMI) [Ratio] 29.6 kg/m2 Dr. Kelvin Han MD Work Phone: 6(895)505-410958 [place] [address] 08-15-2024 14:00-0400 Inhaled oxygen flow rate 1 L/min Dr. Kelvin Han MD Work Phone: 8(244)582-789651 [place] [address] 08-14-2024 23:28-0400 Body temperature 99.6 [degF] Dr. Kelvin Han MD Work Phone: 2(617)784-054151 [place] [address] 08-14-2024 23:28-0400 Diastolic blood pressure 55 mm[Hg] Dr. Kelvin Han MD Work Phone: 8(707)584-336151 [place] [address] 08-14-2024 23:28-0400 Heart rate 107 /min Dr. Kelvin Han MD Work Phone: 1(992)735-530851 [place] [address] 08-14-2024 23:28-0400 Respiratory rate 25 /min Dr. Kelvin Han MD Work Phone: 9(092)952-954751 [place] [address] 08-14-2024 23:28-0400 SaO2% (BldA) [Mass fraction] 99 % Dr. Kelvin Han MD Work Phone: 7(177)065-226958 [place] [address] 08-14-2024 23:28-0400 Systolic blood pressure 96 mm[Hg] Dr. Kelvin Han MD Work Phone: 8(393)946-818158 [place] [address] 08-14-2024 23:00-0400 Inhaled oxygen flow rate 2 L/min Dr. Kelvin Han MD Work Phone: 6(118)845-832551 [place] [address] 08-14-2024 21:45-0400 Body mass index (BMI) [Ratio] 29.5 kg/m2 Dr. Kelvin Han MD Work Phone: 2(258)368-175958 [place] [address] 08-14-2024 21:45-0400 Body weight 90.[address] Kelvin Han MD Work Phone: [facility] 08-14-2024 19:22-0400 Body height 175.[address] Kelvin Han MD Work Phone: [facility] 06-08-2024 06:22-0500 Body temperature 98 [degF] Dr. Kelvin Han MD Work Phone: 2(668)865-320258 [place] [address] 06-08-2024 06:22-0500 Diastolic blood pressure 67 mm[Hg] Dr. Kelvin Han MD Work Phone: 5(588)717-405458 [place] [address] 06-08-2024 06:22-0500 Heart rate 87 /min Dr. Kelvin Han MD Work Phone: 2(333)790-250458 [place] [address] 06-08-2024 06:22-0500 Respiratory rate 18 /min Dr. Kelvin Han MD Work Phone: [facility] 06-08-2024 06:22-0500 SaO2% (BldA) [Mass fraction] 99 % Dr. Kelvin Han MD Work Phone: [facility] 06-08-2024 06:22-0500 Systolic blood pressure 122 mm[Hg] Dr. Kelvin Han MD Work Phone: [facility] 06-08-2024 06:05-0500 Body mass index (BMI) [Ratio] 29 kg/m2 Dr. Kelvin Han MD Work Phone: [facility] 06-08-2024 06:05-0500 Body weight 89.[address] Kelvin Han MD Work Phone: [facility] 03-02-2024 09:30-0400 Body height 175.3 cm [facility] Work Phone: [facility] 03-02-2024 09:30-0400 Body mass index (BMI) [Ratio] 27.84 kg/m2 [facility] Work Phone: [facility] 03-02-2024 09:30-0400 Body temperature 97 [degF] [facility] Work Phone: [facility] 03-02-2024 09:30-0400 Body weight 85.5 kg [facility] Work Phone: [facility] 03-02-2024 09:30-0400 Diastolic blood pressure 61 mm[Hg] [facility] Work Phone: [facility] 03-02-2024 09:30-0400 Heart rate 96 /min [facility] Work Phone: [facility] 03-02-2024 09:30-0400 Respiratory rate 22 /min [facility] Work Phone: [facility] [facility] 03-02-2024 09:30-0400 SaO2% (BldA) [Mass fraction] 99 % Pac 7 Work Phone: [facility] 03-02-2024 09:30-0400 Systolic blood pressure 119 mm[Hg] Pac 7 Work Phone: [facility] 12-16-2023 08:07-0400 Body mass index (BMI) [Ratio] 26.7 kg/m2 Matt Garcia MD Work Phone: [facility] 12-16-2023 08:07-0400 Body weight 84.4 kg Matt Garcia MD Work Phone: [facility] 12-16-2023 08:07-0400 Diastolic blood pressure 75 mm[Hg] Matt Garcia MD Work Phone: [facility] 12-16-2023 08:07-0400 Heart rate 100 /min Matt Garcia MD Work Phone: [facility] 12-16-2023 08:07-0400 Systolic blood pressure 121 mm[Hg] Matt Garcia MD Work Phone: [facility] 10-15-2023 06:17-0400 Body temperature 98.1 [degF] [facility] 10-15-2023 06:17-0400 Diastolic blood pressure 68 mm[Hg] [facility] 10-15-2023 06:17-0400 Heart rate 79 /min [facility] 10-15-2023 06:17-0400 Respiratory rate 16 /min [facility] 10-15-2023 06:17-0400 SaO2% (BldA) [Mass fraction] 99 % [facility] 10-15-2023 06:17-0400 Systolic blood pressure 112 mm[Hg] [facility] 10-15-2023 03:27-0400 Body height 175.26 cm [facility] 10-15-2023 03:27-0400 Body mass index (BMI) [Ratio] 28 kg/m2 [facility] 10-15-2023 03:27-0400 Body weight 86.3 kg [facility] 03-01-2023 20:10-0400 Respiratory rate 18 /min [facility] 03-01-2023 18:00-0400 Heart rate 86 /min [facility] 03-01-2023 18:00-0400 SaO2% (BldA) [Mass fraction] 97 % [facility] 03-01-2023 14:34-0400 Body height 175.26 cm [facility] 03-01-2023 14:34-0400 Body mass index (BMI) [Ratio] 29 kg/m2 [facility] 03-01-2023 14:34-0400 Body temperature 97 [degF] [facility] 03-01-2023 14:34-0400 Body weight 89.2 kg [facility] 03-01-2023 14:34-0400 Diastolic blood pressure 66 mm[Hg] [facility] 03-01-2023 14:34-0400 Systolic blood pressure 112 mm[Hg] [facility] 02-21-2023 09:46-0400 Body temperature 98.2 [degF] [facility] 02-21-2023 09:46-0400 Diastolic blood pressure 78 mm[Hg] [facility] 02-21-2023 09:46-0400 Heart rate 85 /min [facility] 02-21-2023 09:46-0400 Respiratory rate 16 /min [facility] 02-21-2023 09:46-0400 SaO2% (BldA) [Mass fraction] 96 % [facility] 02-21-2023 09:46-0400 Systolic blood pressure 134 mm[Hg] [facility] 02-20-2023 11:56-0400 Body height 175.26 cm [facility] 02-20-2023 11:56-0400 Body weight 94.8 kg [facility] 02-20-2023 02:24-0400 Body mass index (BMI) [Ratio] 30.8 kg/m2 [facility] 02-17-2023 15:00-0400 Body temperature 98.8 [degF] [facility] 02-17-2023 15:00-0400 Diastolic blood pressure 73 mm[Hg] [facility] 02-17-2023 15:00-0400 Heart rate 99 /min [facility] 02-17-2023 15:00-0400 Respiratory rate 18 /min [facility] 02-17-2023 15:00-0400 SaO2% (BldA) [Mass fraction] 97 % [facility] 02-17-2023 15:00-0400 Systolic blood pressure 129 mm[Hg] [facility] 02-14-2023 18:28-0400 Body height 177.8 cm [facility] 02-14-2023 18:28-0400 Body mass index (BMI) [Ratio] 29.8 kg/m2 [facility] 02-14-2023 18:28-0400 Body weight 94.4 kg [facility] 02-14-2023 14:38-0400 Body temperature 98 [degF] [facility] 02-14-2023 14:38-0400 Diastolic blood pressure 68 mm[Hg] [facility] 02-14-2023 14:38-0400 Heart rate 70 /min [facility] 02-14-2023 14:38-0400 Respiratory rate 18 /min [facility] 02-14-2023 14:38-0400 Systolic blood pressure 144 mm[Hg] [facility] 02-14-2023 13:40-0400 Body height 177.8 cm [facility] 02-14-2023 13:40-0400 Body mass index (BMI) [Ratio] 29.8 kg/m2 [facility] 02-14-2023 13:40-0400 Body weight 94.4 kg [facility] 02-14-2023 13:19-0400 SaO2% (BldA) [Mass fraction] 99 % [facility] 02-07-2023 11:05-0400 Body height 177.8 cm [facility] 02-07-2023 11:05-0400 Body mass index (BMI) [Ratio] 27.9 kg/m2 [facility] 02-07-2023 11:05-0400 Body temperature 97.3 [degF] [facility] 02-07-2023 11:05-0400 Body weight 88.45 kg [facility] 02-07-2023 11:05-0400 Diastolic blood pressure 93 mm[Hg] [facility] 02-07-2023 11:05-0400 Heart rate 126 /min [facility] 02-07-2023 11:05-0400 Respiratory rate 14 /min [facility] 02-07-2023 11:05-0400 SaO2% (BldA) [Mass fraction] 98 % [facility] 02-07-2023 11:05-0400 Systolic blood pressure 156 mm[Hg] [facility] 02-02-2023 13:01-0400 Diastolic blood pressure 76 mm[Hg] [facility] 02-02-2023 13:01-0400 Heart rate 75 /min [facility] 02-02-2023 13:01-0400 Respiratory rate 18 /min [facility] 02-02-2023 13:01-0400 SaO2% (BldA) [Mass fraction] 95 % [facility] 02-02-2023 13:01-0400 Systolic blood pressure 120 mm[Hg] [facility] 02-02-2023 11:43-0400 Body height 177.8 cm [facility] 02-02-2023 11:43-0400 Body mass index (BMI) [Ratio] 27.8 kg/m2 [facility] 02-02-2023 11:43-0400 Body temperature 97.5 [degF] [facility] 02-02-2023 11:43-0400 Body weight 87.99 kg [facility] Encounters Encounter Date Encounter Type Care Provider Facility Start: 02-24-2025 End: 02-24-2025 Emergency department patient visit Kelvin Han Facility:[facility] Start: 01-07-2025 End: 01-07-2025 Patient encounter procedure May[place] Calabrese [place] [facility] Work Phone: Start: 01-07-2025 End: 01-07-[address] Kelvin Han MD Work Phone: [facility] Start: 12-04-2024 End: 12-04-[address] Kelvin Han MD Work Phone: -[facility] Start: 12-04-2024 End: 12-04-[address] Kelvin Han MD -[facility] Work Phone: Start: 12-04-2024 End: 12-04-2024 ambulatory Kelvin Han Facility:[facility] Start: 11-18-2024 End: 11-18-2024 Emergency department patient visit Dr. Kelvin Han MD Work Phone: -Emergency Department Work Phone: Start: 11-13-2024 End: 11-14-2024 Emergency department patient visit Dr. Kelvin Han MD Work Phone: -Emergency Department Work Phone: Start: 10-16-2024 End: 10-16-2024 Emergency department patient visit Dr. Kelvin Han MD Work Phone: -Emergency Department Work Phone: Start: 09-18-2024 End: 09-18-[address] Kelvin Han MD Work Phone: [facility] Work Phone: Start: 09-18-2024 End: 09-18-[address] Kelvin Han MD -Laboratory Work Phone: Start: 09-18-2024 End: 09-18-2024 ambulatory [facility] Facility:[facility] Start: 08-20-2024 Non-patient / Non-visit Dr. Jameel Herrera MD -[facility] Work Phone: Start: 08-19-2024 Non-patient / Non-visit Dr. Juany beaulieu MD -[facility] Work Phone: Start: 08-18-2024 Non-patient / Non-visit Dr. Juany beaulieu MD -[facility] Work Phone: Start: 08-17-2024 Non-patient / Non-visit Dr. Darryn Avery own DO -[facility] Start: 08-17-2024 Non-patient / Non-visit Dr. Juany beaulieu MD -[facility] Work Phone: Start: 08-16-2024 Non-patient / Non-visit Dr. Juany beaulieu MD -[facility] Work Phone: Start: 08-15-2024 Non-patient / Non-visit Tiffanie GAONAC -[facility] Start: 08-15-2024 Non-patient / Non-visit Dr. Darryn Avery own DO -[facility] Start: 08-14-2024 [facility]ulatory [facility] Start: 08-14-2024 End: 08-20-2024 Evaluation and management of inpatient Dr. Rajinder Acosta DO -Intensive Care Unit Work Phone: Start: 07-19-2024 End: 07-19-[address] Kelvin Han MD -Laboratory, [facility] Work Phone: Start: 07-19-2024 End: 07-19-2024 [facility] Start: 06-08-2024 End: 06-08-2024 Emergency department patient visit Reuben Kirkland DO -Emergency Department Work Phone: Start: 05-11-2024 End: 05-11-2024 Patient encounter procedure Matt Garcia MD Work Phone: Urology Comment on above: Stricture of bladder neck (Primary Dx); Prostate cancer (HCC); Radiation cystitis; ZUHAIR (stress urinary incontinence), male Start: 05-11-2024 End: 05-11-2024 ambulatory MATT GARCIA Facility:[facility] Start: 04-16-2024 ambulatory [facility] lity:[facility] Start: 04-02-2024 End: 04-02-2024 ambulatory [facility] Facility:[facility] Start: 03-28-2024 End: 03-28-2024 Telephone encounter Amalia Childers MD Work Phone: Urology Start: 03-23-2024 End: 03-23-2024 Emergency department patient visit [facility] Facility:[facility] Start: 03-22-2024 End: 04-05-2024 ambulatory [facility] Facility:[facility] Start: 03-19-2024 ambulatory Kayce Escoto PARTS PROCESSOR Fa cility:[facility] Start: 03-16-2024 ambulatory [facility] Faci lity:[facility] Start: 03-15-2024 ambulatory [facility] Start: 03-13-2024 ambulatory [facility] Start: 03-12-2024 ambulatory Kayce Escoto PARTS PROCESSOR Fa cility:[facility] Start: 03-02-2024 End: 03-02-2024 Nursing evaluation of patient and report Kenyetta Garcia LPN Work Phone: Urology Comment on above: Stricture of bladder neck (Primary Dx) Start: 03-02-2024 End: 03-02-2024 ambulatory [facility] Facility:[facility] Start: 03-02-2024 End: 03-02-2024 Admission to establishment Pacc Main 7 Work Phone: Pre Anesthesia Start: 03-02-2024 End: 03-02-2024 Anesthesia consultation Pac Main 7 Work Phone: Pre Anesthesia Comment on above: Prostate cancer (HCC ) (Primary Dx); Gross hematuria; BENIGN HYPERTENSION Start: 03-02-2024 End: 03-02-2024 ambulatory [place] Aminata RAMIREZCLOQUET Facility:[facility] Start: 03-01-2024 End: 03-05-2024 ambulatory [facility] Facility:[facility] Start: 02-28-2024 End: 02-28-2024 Telephone encounter Amalia Shah RN Work Phone: Urology Comment on above: Returning Patient's Call Start: 02-28-2024 End: 02-28-2024 ambulatory Matt Garcia MD Work Phone: Urology Start: 02-27-2024 ambulatory Cameron Motley Facility:[facility] Start: 02-24-2024 End: 02-24-2024 Patient encounter procedure Matt Garcia MD Work Phone: Urology Comment on above: Radiation cystitis ( Primary Dx); Prostate cancer (HCC); 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; ZUHAIR (stress urinary incontinence), male Start: 02-24-2024 End: 02-24-2024 ambulatory MATT GARCIA Facility:[facility] Start: 12-23-2023 End: 12-23-2023 Patient encounter procedure Matt Garica MD Work Phone: Urology Comment on above: Radiation cystitis ( Primary Dx); Prostate cancer (HCC); 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; ZUHAIR (stress urinary incontinence), male Start: 12-23-2023 End: 12-23-2023 ambulatory MATT GARCIA Facility:[facility] Start: 12-16-2023 End: 12-16-2023 ambulatory Matt Garcia MD Work Phone: Urology Start: 12-16-2023 End: 12-16-2023 Patient encounter procedure Matt Garcia MD Work Phone: Urology Comment on above: Radiation cystitis ( Primary Dx); Prostate cancer (HCC); 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; ZUHAIR (stress urinary incontinence), male Start: 10-15-2023 End: 10-15-2023 Emergency department patient visit [facility]-Emergency Department Work Phone: Start: 06-27-2023 End: 06-27-2023 ambulatory [facility] Work Phone: Start: 06-27-2023 End: 06-27-2023 [facility] Start: 04-04-2023 End: 04-04-2023 ambulatory [facility] Work Phone: Start: 04-04-2023 End: 04-04-2023 [facility] Start: 03-01-2023 End: 03-01-2023 Emergency department patient visit [facility]Emergency Department Work Phone: Start: 03-01-2023 End: 03-01-2023 [facility] Start: 02-20-2023 End: 02-21-2023 Evaluation and management of inpatient [facility] Work Phone: Start: 02-18-2023 Telephone encounter Eduardo Han MD Work Phone: NOC Comment on above: Follow Up Phone Call (Post discharge phone call attempt made. No answer/ ) Start: 02-14-2023 End: 02-17-2023 Evaluation and management of inpatient [facility] Work Phone: Start: 02-14-2023 Evaluation and manag ement of inpatient [facility] Work Phone: Start: 02-14-2023 observation encounter [facility] Work Phone: Start: 02-07-2023 Emergency department patient visit KELVIN HAN [facility] Start: 02-07-2023 End: 02-07-2023 [facility] Start: 02-02-2023 End: 02-02-2023 Emergency department patient visit [facility]Emergency Department Work Phone: Start: 01-03-2023 End: 01-03-2023 ambulatory [facility] Work Phone: Start: 01-03-2023 End: 01-03-2023 [facility] Start: 12-03-2022 End: 12-03-2022 ambulatory [facility] Work Phone: Start: 12-03-2022 End: 12-03-2022 [facility] Start: 07-05-2022 End: 07-05-2022 ambulatory [facility] Work Phone: Start: 07-05-2022 End: 07-05-2022 [facility] Start: 12-28-2021 End: 12-28-2021 [facility] Procedures Date Procedure Procedure Detail Performing Clinician Start: 11-13-2024 Urnls dip stick/tabl et reagent auto microscopy Dr. Kelvin Han MD Work Phone: Start: 11-13-[address] Guy Han MD Work Phone: Start: 09-18-2024 Antibody to centrome re measurement Dr. Kelvin Han MD Work Phone: Comment on above: Previous reported re sult: TNP AIEdited by: ARACELI on 09/25/24:1108 AMENDED REPORT 09/25/24 1108 ANTI-CENT [...] reported as: Test not performed Start: 09-18-2024 [employer] antibody measurement Dr. Kelvin Han MD Work Phone: Comment on above: Previous reported re sult: TNP AIEdited by: INFCE on 09/25/24:1108 AMENDED REPORT 09/25/24 110 [employer] Ab previously reported as: Test not performed [...] stick/tabl et rgnt auto w/o microscopy Matt Garcia MD Work Phone: Start: 03-01-2023 CT of [...] P,Tdap,Td Vaccine (4 - Td or Tdap) [facility] Start: 03-02-2027 Diabetes Screening Diabetes Screenin g [facility] Start: 02-12-2026 Diabetes Screening Diabetes Screenin g [facility] Start: 11-20-2025 Colonoscopy Colonoscopy [facility] Start: 11-20-2025 Colorectal Cancer Screening Co lorectal Cancer Screening [facility] Start: 03-02-2025 BP Controlled (<130/80) BP Con trolled (<130/80) [facility] Start: 12-15-2024 BP Controlled (<130/80) BP Con trolled (<130/80) [facility] Start: 11-18-2024 [facility] Start: 11-14-2024 End: 11-14-2024 [facility] Start: 11-13-2024 Bacteria identified in Urine by Culture Urine Culture [facility] Start: 10-16-2024 [facility] Start: 08-20-2024 Incentive spirometry [facility] Start: 08-20-2024 [facility] Start: 08-20-2024 Patient discharge [facility] Start: 08-20-2024 Referral to occupati onal therapist [facility] Start: 08-20-2024 Referral to service [facility] Start: 08-19-2024 Care planning and pr oblem solving actions [facility] Start: 08-17-2024 Consultation [facility] Start: 08-16-2024 Care planning and pr oblem solving actions [facility] Start: 08-15-2024 Consultation [facility] Start: 08-15-2024 End: 08-15-2024 Following clinical pathway protocol [facility] Start: 08-15-2024 Application of inter mittent pneumatic compression device [facility] Start: 08-15-2024 Cardiac monitoring [facility] Start: 08-15-2024 Catheterization of vein [facility] Start: 08-15-2024 Notification of physician [facility] Start: 08-15-2024 Vital signs measurements [facility] Start: 08-15-2024 [facility] Start: 08-14-2024 Admission procedure [facility] Start: 08-14-2024 Hospital admission, emergency, from emergency room, medical nature [facility] Start: 08-14-2024 End: 08-15-2024 [facility] Start: 08-14-2024 Thyroid stimulating hormone measurement [facility] Start: 08-14-2024 Bacteria identified in Blood by Culture Blood Culture [facility] Start: 08-14-2024 Bacteria identified in Urine by Culture Urine Culture [facility] Start: 04-02-2024 End: 04-02-2024 Admission to same day surgery center Admitting Comment on above: CYSTOSCOPY FLEXIBLE Start: 04-02-2024 End: 04-02-2024 Cystourethroscopy [facility] Start: 04-02-2024 Subsequent hospital visit by physician Admitting Comment on above: Stricture of bladder neck [N32.0] Start: 04-02-2024 End: 04-02-2024 Transurethral resection bladder neck [facility] Start: 03-22-2024 End: 03-22-2024 Admission to same day surgery center 03/22/2024 9:30 AM EDT - 03/22/2024 11:00 AM EDT Surgery [facility] [address] [place] [address] Matt Garcia MD [address] [place] [address] CYSTOSCOPY FLEXIBLE [facility] Comment on above: CYSTOSCOPY FLEXIBLE Start: 03-22-2024 End: 03-22-2024 Cystourethroscopy CYSTOSCOPY FLEXIBLE Stricture of bladder neck 03/22/2024 9:30 AM EDT [facility] Start: 03-22-2024 Subsequent hospital visit by physician 03/22/2024 9:30 AM EDT Hospital Encounter [facility] [address] [place] [address] Matt Garcia MD [address] [place] [address] Stricture of bladder neck [N32.0] [facility] Comment on above: Stricture of bladder neck [N32.0] Start: 03-22-2024 End: 03-22-2024 Transurethral resection bladder neck INCISION BLADDER NECK Stricture of bladder neck 03/22/2024 9:30 AM EDT [facility] Start: 03-12-2024 Subsequent hospital visit by physician 03/12/2024 Hospital Encounter Admitting [address] [place] [address] Matt Garcai MD [address] [place] [address] Stricture of bladder neck [N32.0] Admitting Comment on above: Stricture of bladder neck [N32.0] Start: 03-02-2024 End: 03-02-2024 Nursing evaluation of patient and report 03/02/2024 1:00 PM EDT Nurse Visit Urology [address] [id number] Kenyetta Garcia, PRODUCT MANAGER [address] [id number] PRE OP Nurse visit with Kenyetta Gacria [facility] Comment on above: PRE OP Nurse visit w christo Garcia Start: 03-02-2024 End: 03-02-2024 ambulatory 03/02/2024 12:15 PM EDT Results Only [place] [address] [address] [id number] labs, urine culture [place] [address] [address] Comment on above: labs, urine culture Start: 02-28-2024 End: 03-12-2024 CBC panel - Blood by Automated count COMPLETE BLOOD COUNT Lab Routine Stricture of bladder neck Expected: 02/28/2024, Expires: 03/12/2024 [facility] Work Phone: Comment on above: Expected: 02/28/2024 , Expires: 03/12/2024 Start: 02-28-2024 End: 03-12-2024 Comprehensive metabolic 2000 panel - Serum or Plasma COMPREHENSIVE METABOLIC PANEL Lab Routine Stricture of bladder neck Expected: 02/28/2024, Expires: 03/12/2024 [facility] Comment on above: Expected: 02/28/2024 , Expires: 03/12/2024 Start: 02-28-2024 End: 03-12-2024 URINE, PRESURGICAL STERILIZATION CULTURE URINE, PRESURGICAL STERILIZATION CULTURE Microbiology Routine Stricture of bladder neck Radiation cystitis Expected: 02/28/2024, Expires: 03/12/2024 [facility] Comment on above: Expected: 02/28/2024 , Expires: 03/12/2024 Start: 02-24-2024 End: 02-24-2024 Patient encounter procedure 02/24/2024 1:00 PM EDT Office Visit Urology [address] [address] Matt Garcia MD [address] [place] [address] [facility] Comment on above: [facility] Start: 02-05-2024 Covid-19 Vaccine () Covid-19 Vaccine () [facility] Start: 02-05-2024 Covid-19 Vaccine () Covid-19 Vaccine () [facility] Start: 02-05-2024 Influenza vaccination Influenza Vacc ine (#1) [facility] Start: 12-23-2023 End: 12-23-2023 Patient encounter procedure 12/23/2023 1:00 PM EDT Office Visit Urology [address] [address] Matt Garcia MD [address] [place] [address] Cysto/ per Dr Saucedo Urology Comment on above: Cysto/ per Dr Saucedo Start: 11-27-2023 Covid-19 Vaccine () Covid-19 Vaccine () [facility] Start: 11-27-2023 Covid-19 Vaccine () Covid-19 Vaccine () [facility] Start: 10-15-2023 [facility] Start: 06-06-2023 Advance Directive Discussion Advance Directive Discussion [facility] Start: 06-06-2023 Behavioral Health Screening Be havioral Health Screening [facility] Start: 03-01-2023 [facility] Start: 02-21-2023 Referral to service [facility] Start: 02-21-2023 End: 02-21-2023 Patient discharge [facility] Start: 02-20-2023 [facility] Start: 02-20-2023 Application of inter mittent pneumatic compression device [facility] Start: 02-20-2023 Following clinical p athway protocol [facility] Start: 02-20-2023 Deep breathing and c oughing exercises [facility] Start: 02-20-2023 Incentive spirometry [facility] Start: 02-20-2023 Admission procedure [facility] Start: 02-20-2023 Assessment of risk o f venous thromboembolism [facility] Start: 02-20-2023 Irrigation of urinar y bladder [facility] Start: 02-20-2023 Measuring intake and output [facility] Start: 02-20-2023 Patient education [facility] Start: 02-20-2023 Taking patient vital signs [facility] Start: 02-20-2023 Vital signs measurements [facility] Start: 02-20-2023 End: 02-20-2023 [facility] Start: 02-20-2023 Patient referral to dietitian [facility] Start: 02-17-2023 Patient discharge [facility] Start: 02-17-2023 Urinary bladder resi dual urine study [facility] [facility] Start: 02-17-2023 Removal of urinary catheter [facility] Start: 02-15-2023 Referral to occupati onal therapist [facility] Start: 02-15-2023 End: 02-15-2023 Referral to service [facility] Start: 02-14-2023 Application of inter mittent pneumatic compression device [facility] Start: 02-14-2023 Following clinical p athway protocol [facility] Start: 02-14-2023 End: 02-14-2023 Irrigation of urinary bladder [facility] Start: 02-14-2023 Admission procedure [facility] Start: 02-14-2023 Deep breathing and c oughing exercises [facility] Start: 02-14-2023 Measuring intake and output [facility] Start: 02-14-2023 Patient education [facility] Start: 02-14-2023 Taking patient vital signs [facility] Start: 02-14-2023 Vital signs measurements [facility] Start: 02-14-2023 End: 02-14-2023 [facility] Start: 02-14-2023 Cysto,Evacuation Hem atoma Darshana (Bilateral) Cysto,Evacuation Hematoma Darshana (Bilateral) [facility] Start: 02-04-2023 Influenza vaccination Influenza Vacc ine (#1) [facility] Start: 02-02-2023 Bacteria identified in Urine by Culture Urine Culture [facility] Start: 02-02-2023 [facility] Start: 11-10-2022 RSV Vaccine (1 - 1-d ose 75+ series) RSV Vaccine (1 - 1-dose 75+ series) [facility] Start: 10-26-2022 Urine microalbumin profile DTa P,Tdap,Td Vaccine (3 - Td or Tdap) [facility] Start: 07-07-2022 Covid-19 Vaccine (6 - Moderna series) Covid-19 Vaccine (6 - Moderna series) [facility] Start: 06-06-2022 Advance Directive Discussion Advance Directive Discussion [facility] Start: 06-06-2022 Depression Assessment Depression Ass essment [facility] Start: 09-10-2020 Lipid 1996 panel - S zev or Plasma Lipid Screening [facility] Start: 12-21-2012 Shingrix Vaccine (2 of 3) Tapia grix Vaccine (2 of 3) [facility] Start: 2007 RSV Vaccine (1 - 1-d ose 60+ series) RSV Vaccine (1 - 1-dose 60+ series) [facility] Start: 11-10-1992 Cologuard (FIT-DNA) Cologuard (FIT-D NA) [facility] Start: 11-10-[address] [facility]OGRAPHY [facility] Start: 11-10-1992 Fecal Occult Blood Fecal Occult Bloo d [facility] Start: 11-10-1992 SIGMOIDOSCOPY SIGMOIDOSCOPY Kim gipson [facility] Start: 11-10-1965 Annual PCP Team [employer] shaheen Disease Visit Annual PCP Team Chronic Disease Visit [facility] Start: 11-10-1965 Anxiety Screening Anxiety Screening [facility] Start: 11-10-1965 BP Controlled (<130/80) BP Con trolled (<130/80) [facility] Start: 11-10-1965 Depression Screening Depression Scre ening [facility] Start: 11-10-1965 Hepatitis C Screening Hepatitis C [facility] Start: 11-10-1965 Hepatitis C screening Hepatitis C [facility] Cystourethroscopy CYSTOSCOPY FLE XIBLE Stricture of bladder neck [facility] Folate [Moles/volume ] in Serum or Plasma [facility] Hemoglobin A1c/Hemoglobin.total in Blood [facility] Lactic acid measurement [facility] Patient Education [facility] Work Phone: Patient referral [facility] Work Phone: Transurethral resect ion bladder neck INCISION BLADDER NECK Stricture of bladder neck [facility] URINALYSIS, REFLEX MICROSCOPIC URINALYSIS, REFLEX MICROSCOPIC Lab Routine Screening for genitourinary condition Ordered: 12/16/2023 [facility] Work Phone: Comment on above: Ordered: 12/16/2023 Urine culture [facility] Urine culture [facility] Immunizations Immunization Date Immunization Notes Care Provider Sushant cardoza 08-16-2024 influenza, high dose seasonal, preservative-free Dr. Kelvin Han MD Work Phone: [facility] 02-24-2023 influenza virus vaccine, unspecified formulation Matt Garcia MD Work Phone: [facility] 03-06-2022 Covid (Moderna) [facility] 03-01-2022 Influenza High-Dose Quadrivalent [facility] 03-01-2022 influenza virus vaccine, unspecified formulation Kelvin Han MD Work Phone: [facility] 10-14-2021 Covid (Moderna) [facility] 10-04-2021 Covid (Moderna) [facility] 04-03-2021 Covid (Moderna) [facility] 03-06-2021 Influenza High-Dose Quadrivalent [facility] 08-27-2020 Covid (Moderna) [facility] 07-30-2020 Covid (Moderna) [facility] 02-15-2020 influenza, injectabl e, quadrivalent, preservative free [facility] 03-23-2019 influenza, injectabl e, quadrivalent, preservative free [facility] 03-07-2018 influenza, injectabl e, quadrivalent, preservative free [facility] 02-27-2016 Influenza, high dose seasonal Dr. Kelvin Han MD Work Phone: [facility] 02-27-2016 influenza, high dose seasonal, preservative-free Kelvin Han MD Work Phone: [facility] Work Phone: 10-08-2015 pneumococcal conjuga te vaccine, 13 valent Kelvin Han MD Work Phone: [facility] Work Phone: 03-04-2015 influenza virus vaccine, unspecified formulation Kelvin Han MD Work Phone: [facility] 03-04-2015 influenza, injectabl e, quadrivalent, preservative free [facility] 05-29-2014 influenza, injectabl e, quadrivalent, preservative free [facility] 05-29-2014 influenza, seasonal, injectable Kelvin Han MD Work Phone: [facility] 02-26-2014 pneumococcal polysaccharide vaccine, 23 valent Kelvin Han MD Work Phone: [facility] 10-26-2012 tetanus toxoid, redu chasidy diphtheria toxoid, and acellular pertussis vaccine, adsorbed Kelvin Han MD Work Phone: [facility] 10-26-2012 zoster vaccine, live Eduardo Han MD Work Phone: [facility] 06-19-2012 influenza virus vaccine, unspecified formulation Kelvin Han MD Work Phone: [facility] 06-19-2012 influenza, injectabl e, quadrivalent, preservative free [facility] 06-06-2002 diphtheria and tetan us toxoids, adsorbed for pediatric use Kelvin Han MD Work Phone: [facility] Work Phone: Payers Date Payer Category Payer Self-pay [id number] 2021 Private Health Insurance AETNA S UPPLEMENT AETNA MEDICARE SUPPLEMENT [id number] 2021-Present [phone] [address] [address] [place] [address] Indemnity [id number] 2021 Private Health Insurance CLI [id number] 2012 Medicare MEDICARE MEDICAR E A AND B [id number] 2012-Present [phone] [address] [address] [place] [address] Medicare [id number] 2012 Medicare [id number] 2012 Unknown [id number] 2012 Unknown HOSPITAL/MEDICAL GENERIC MEDICAL GENERIC [id number] 2012-Present [phone] [address] [address] [place] [address] Indemnity [id number] 2012 Medicare [id number] Unknown [id number] Unknown [id number] 2.16.840.1.694458.3.579.2. 462 Unknown [id number] 2.16.840.1.783649.3.579.2. 462 Unknown [id number] 2.16.840.1.015143.3.579.2. 462 Unknown [id number] 2.16.840.1.654417.3.579.2. 462 Unknown [id number] 2.16.840.1.053284.3.579.2. 462 Unknown [id number] 2.16.840.1.807451.3.579.2. 462 Unknown [id number] 2.16.840.1.340873.3.579.2. 462 Unknown [id number] 2.16.840.1.095914.3.579.2. 462 Unknown [id number] 2.16.840.1.845125.3.579.2. 462 Unknown [id number] 2.16.840.1.571164.3.579.2. 462 Unknown [id number] 2.16.840.1.455582.3.579.2. 462 Unknown [id number] 2.16.840.1.873080.3.579.2. 462 Unknown [id number] 2.16.840.1.815008.3.579.2. 462 Unknown [id number] 2.16.840.1.430515.3.579.2. 462 Unknown [id number] 2.16.840.1.831381.3.579.2. 462 Unknown [id number] 2.16.840.1.165089.3.579.2. 462 Unknown [id number] 2.16.840.1.406441.3.579.2. 462 Unknown [id number] 2.16.840.1.660939.3.579.2. 462 Unknown [id number] 2.16.840.1.360786.3.579.2. 462 Unknown [id number] 2.16.840.1.190009.3.579.2. 462 Unknown [id number] 2.16.840.1.884344.3.579.2. 462 Unknown [id number] 2.16.840.1.800090.3.579.2. 462 Unknown [id number] 2.16.840.1.625839.3.579.2. 462 Unknown [id number] 2.16.840.1.016733.3.579.2. 462 Unknown [id number] 2.16.840.1.367362.3.579.2. 462 Unknown [id number] 2.16.840.1.626214.3.579.2. 462 Unknown [id number] 2.16.840.1.022923.3.579.2. 462 Unknown [id number] 2.16.840.1.660608.3.579.2. 462 Unknown [id number] 2.16.840.1.402919.3.579.2. 462 Unknown [id number] 2.16.840.1.104872.3.579.2. 462 Unknown [id number] 2.16.840.1.914954.3.579.2. 462 Unknown [id number] 2.16.840.1.958950.3.579.2. 462 Unknown [id number] 2.16.840.1.447613.3.579.2. 462 Unknown [id number] 2.16.840.1.963437.3.579.2. 462 Social History Date Type Detail Facility Start: 12-08-2018 End: 10-15-2023 Tobacco smoking status PAIS Unknown if ever smoked [facility] Start: 12-08-2018 Non-smoker [facility] Start: 1945 Sex Assigned At Male W [facility] Start: 07-23-2011 End: 11-18-2024 Tobacco smoking status PAIS Never smoked tobacco [facility] Start: 07-23-2011 Tobacco use and exposure Smokeless tobacco non-user [facility] Start: 02-11-2023 End: 03-02-2024 Alcohol intake Current non-drinker of alcohol (finding) [facility] Start: 02-11-2023 End: 12-23-2023 History of Social function [facility] Work Phone: Start: 02-11-2023 End: 12-23-2023 Tobacco use panel [facility] Work Phone: How hard is it for y ou to pay for the very basics like food, housing, medical care, and heating Not hard at all [facility] Work Phone: (I/We) worried wheth er (my/our) food would run out before (I/we) got money to buy more. Never true [facility] Work Phone: In the past 12 month s, was there a time when you were not able to pay the mortgage or rent on time? No [facility] Work Phone: Start: 1945 Sex Assigned At Not on file C [facility] Start: 12-09-2023 Gender identity Identifies as male gender (finding) [facility] Start: 12-09-2023 Sexual orientation Heterosexual (fin ding) [facility] Start: 08-14-2024 End: 09-24-2024 Sex Male (finding) [facility] Goals Date Patient Goal Desired Activity /State Functional Status Date Assessment Result Facility 08-20-2024 Functional status Chair [facility] Work Phone: 02-21-2023 Functional status Activity Ability Indepe ndent [facility] Work Phone: 02-20-2023 Functional status Patient Activity Up ad lori [facility] Work Phone: 02-17-2023 Functional status Ambulates [facility] Work Phone: Mental Status Date Assessment Result Facility 08-20-2024 Cognitive function Voice/Name [facility] Work Phone: 03-01-2023 Cognitive function Level Of Cons ciousness Awake;Alert;Appropriate;Follow s Commands [facility] Work Phone: 02-21-2023 Cognitive function Voice/Name [facility] Work Phone: 02-17-2023 Cognitive function Voice/Name [facility] Work Phone: Clinical Notes 07-06-2011 to 08-20-2024 Note Date & Type Note Facility 08-20-2024 Consult note [facility] 08-20-2024 Progress note [facility] 08-20-2024 Discharge summary Note Date/Time August 20, 2024 2:03pm [facility] Medical Records Department [address] [place] [address] Discharge Summary 08/20/24 1228 MR#: [id number] Acct: [id number] Name: BARBARA MILAN MONI Rep #:[id number] : 1945 78 From: Jameel Gipson PCP: Dr. Kelvin Han MD Status :ADM IN Location: [place] [address] Providers Date of Admission: 08/14/24 Date of Discharge: 08/20/24 Primary Care Physician: Dr. Kelvin Han MD Consultations 08/15/24 00:05 Consult: Graphic Designer / Pulmonary Medicine Routine Consulting Provider: Intensivists/Pulmonary Med Reason for Consult: Sepsis with UTI and Leukopenia. EMERGENT Consult: No Notified: Yes Date Notified: [...] ordered -Patient presently admitted in the ICU, strategic planner consulted -08/16: Urine culture and sensitivity data [...] 08/20 urine culture and sensitivity reviewed. [facility]ows [place] [facility], Myroides and Enterococcus # Creatinine elevation [...] panel and C. difficile negative. Advised probiotic mhrf-wlo-sjsinis for 1 week Chronic medical problems: # [...] Cameron Giron; Juany Souza Discharge Orders/Prescriptions Prescriptions: liliane Alexander-B.bif-S.therm 175 mg Capsule 1 cap PO 2XD Qty: 0 0RF Rx Instructions: Dnfg-hrh-bucyfhm for 1 week. levofloxacin 500 mg tablet [...] Kelvin Han MD [Primary Care Provider] - ([place] called the office and they were closed [...] Health Service Charges/Coding Visit Charges Inpatient E&M: 42963 Disch Hosp >30min 08/20/24 1403 <Electronically signed by Jameel Herrera MD> Cosigner Signature (if applicable): CC: Dr. Kelvin Han MD; Dr. Zhao Gilliland MD; Dr. Jameel Herrera MD~ Signed [facility] Work Phone: 1(837) 220-450703-17-2025 Discharge summary Author Jameel Herrera [facility] Note Date/Time August 20, 2024 12: 27pm [facility] Medical Records Department [address] [place] [address] Instructions for Home/Discharge Instructions 08/20/24 1013 MR#: [id number] Acct: [id number] Name: BARBARA MILANN Rep #:[id number] : 1945 78 From: [...] Cameron Giron; Juany Souza Discharge Orders/Prescriptions Prescriptions: Patrice Alexandertherm 175 mg Capsule 1 cap PO 2XD Qty: 0 0RF Rx Instructions: Xkio-rdk-rnoslkz for 1 week. levofloxacin 500 mg tablet [...] Kelvin Han MD [Primary Care Provider] - ([place] [place] called the office and they were closed [...] MD; Dr. Cameron Giron MD ~ Signed [facility] Work Phone: 1(979) 656-302303-17-2025 Discharge summary [facility] Medical Records Department [address] [place] [address] Discharge Summary 08/20/24 1228 MR#: [id number] Acct: [id number] Name: BARBARA MILAN Rep #:[id number] : 1945 78 From: Jameel Gipson PCP: Dr. Kelvin Han MD Status :ADM IN Location: [place] [address] Providers Date of Admission: 08/14/24 Date of Discharge: 08/20/24 Primary Care Physician: Dr. Kelvin Han MD Consultations 08/15/24 00:05 Consult: Graphic Designer / Pulmonary Medicine Routine Consulting Provider: Intensivists/Pulmonary Med Reason for Consult: Sepsis with UTI and Leukopenia. EMERGENT Consult: No Notified: Yes Date Notified: 08/15/24 Time Notified: 07:48 Method of Notification: Verbal 08/15/24 01:00 Consult: Urology Routine Consulting Provider: Zhao Gilliland Reason for Consult: History of Prostate Cancer with ? bladder lesion on CT. EMERGENT Consult: No Notified: Yes Date Notified: 08/15/24 Time Notified: 01:00 Method of Notification: Answering Service 08/17/24 07:41 Consult: Infectious Disease Routine Consulting Provider: Cameron Giorn Reason for Consult: septic shock 2/2 Providencia [...] ordered -Patient presently admitted in the ICU, strategic planner consulted -08/16: Urine culture and sensitivity data [...] 08/20 urine culture and sensitivity reviewed. [facility] [place] [facility], Myroides and Enterococcus # Creatinine elevation [...] panel and C. difficile negative. Advised probiotic lzuu-ggc-dztvcug for 1 week Chronic medical problems: # [...] Promyelocytes % 1 H, Diff Path Review May , Sodium 137, Potassium 3.9, Chloride 107, Carbon [...] Cameron Giron; Juany Souza Discharge Orders/Prescriptions Prescriptions: Hortencia Alexanderbif-S.therm 175 mg Capsule 1 cap PO 2XD Qty: 0 0RF Rx Instructions: Pdxr-qtm-gziumyt for 1 week. levofloxacin 500 mg tablet [...] Kelvin Han MD [Primary Care Provider] - ([facility] [place] called the office and they were closed [...] Health Service Charges/Coding Visit Charges Inpatient E&M: 37808 Disch Hosp >30min 08/20/24 1403 Cosigner Signature (if applicable): CC: Dr. Kelvin Han MD; Dr. Zhao Gilliland MD; Dr. Jameel Herrera MD~ Signed [facility]03-17-2025 [facility] Discharge summary [facility] Medical Records Department [address] [place] [address] Instructions for Home/Discharge Instructions 08/20/24 1013 MR#: [id number] Acct: [id number] Name: BARBARA MILAN MONI Rep #:[id number] [...] Cameron Giron; Juany Souza Discharge Orders/Prescriptions Prescriptions: Patrice Alexandertherm 175 mg Capsule 1 cap PO 2XD Qty: 0 0RF Rx Instructions: Wehp-ncv-bpzlcci for 1 week. levofloxacin 500 mg tablet [...] Kelvin Han MD [Primary Care Provider] - ([place] called the office and they were closed [...] CC: Dr. Kelvin Han MD; Dr. Rajinder Acosat DO; Dr. Zhao Gilliland MD; Dr. Juany Souza MD; Dr. Cameron Giron MD ~ Signed [facility]03-16-2025 Progress note Author Juany Souza [facility] Note Date/Time August 19, 2024 3:3 1pm [facility] Medical Records Department [address] [place] [address] Progress Note - Hospitalist 08/19/2403 MR#: [id number] Acct: [id number] Name: BARBARA MILANN Rep #:[id number] : 1945 78 From: Juany Souza MD PCP: Dr. Kelvin Han MD Status :ADM IN Location: [place] [address] Reason for Visit Reason for Visit: Diagnoses [...] % 2 H, Diff Path Review May , Platelet Estimate ADEQUATE, Microcytosis 1+, Ovalocytes 2+, [...] ordered -Patient presently admitted in the ICU, strategic planner consulted -08/16: Urine culture and sensitivity data [...] post prostate removal and radiation therapy through [facility] with subsequent bladder neck contracture and ultimately suprapubic catheter -PSA undetectable #DVT ppx: SCDs Juany Souza MD Time spent in the patient's overall evaluation,decision-making process, review of diagnostic data, adjustment of management, discussion with other providers, nursing nursing and ancillary staff involved in patient's care documentation, 36minutes Charges/Coding Visit Charges Inpatient E&M: 81989 Subs Hosp L2 08/19/24 1531 <Electronically signed by Juany Souza MD> Cosigner Signature (if applicable): CC: ~ Signed [facility] Work Phone: 1(751) 757-794703-16-2025 Progress note [facility] Medical Records Department [address] [place] [address] Progress Note - Hospitalist 08/19/24 0903 MR#: [id number] Acct: [id number] Name: KAYLIBARBARA MONI Rep #:[id number] : 1945 78 From: Juany Souza MD PCP: Dr. Kelvin Han MD Status :ADM IN Location: [place] [address] Reason for Visit Reason for Visit: Diagnoses [...] Myelocytes % 2 H, Diff Path Review October, Platelet Estimate ADEQUATE, Microcytosis 1+, Ovalocytes2+, Schistocytes [...] ordered -Patient presently admitted in the ICU, strategic planner consulted -08/16: Urine culture and sensitivity data [...] post prostate removal and radiation therapy through [facility] with subsequent bladder neck contracture and ultimately suprapubic catheter -PSA undetectable #DVT ppx: SCDs Juany Souza MD Time spent in the patient's overall evaluation,decision-making process, review of diagnostic data, adjustment of management, discussion with other providers, nursing nursing and ancillary staff involved in patient's care documentation, 36minutes Charges/Coding Visit Charges Inpatient E&M: 19067 Subs Hosp L2 08/19/24 1531 Cosigner Signature (if applicable): CC: ~ Signed [facility]03-15-2025 Progress note Author Juany Souza [facility] Note Date/Time August 18, 2024 12: 22pm [facility] Medical Records Department [address] [place] [address] Progress Note - Hospitalist 08/18/24 0722 MR#: [id number] Acct: [id number] Name: BARBARA MILAN MONI Rep #:[id number] : 1945 78 From: Juany Souza MD PCP: Dr. Kelvin Han MD Status :ADM IN Location: [place] [address]- 1 Reason for Visit Reason for Visit: [...] 79.9 H, Lymph % (Auto) 8.2 L, [place] % (Auto) 7.1, Eos % (Auto) 3.4, [...] ordered -Patient presently admitted in the ICU, strategic planner consulted -08/16: Urine culture and sensitivity data [...] post prostate removal and radiation therapy through [facility] with subsequent bladder neck contracture and ultimately suprapubic catheter -PSA undetectable #DVT ppx: SCDedgar Souza MD Time spent in the patient's overall evaluation,decision-making process, review of diagnostic data, adjustment of management, discussion with other providers, nursing nursing and ancillary staff involved in patient's care documentation, 36minutes Charges/Coding Visit Charges Inpatient E&M: 22871 Subs Hosp L2 08/18/24 1222 <Electronically signed by Juany Souza MD> Cosigner Signature (if applicable): CC: ~ Signed [facility] Work Phone: 1(539) 342-716403-15-2025 Progress note [facility] Medical Records Department [address] [place] [address] Progress Note - Hospitalist 08/18/24 0722 MR#: [id number] Acct: [id number] Name: BARBARA MILAN MONI Rep #:[id number] : 1945 78 From: Juany Souza MD PCP: Dr. Kelvin Han MD Status :ADM IN Location: [place] [address] Reason for Visit Reason for Visit: Diagnoses [...] 79.9 H, Lymph % (Auto) 8.2 L, [place] % (Auto) 7.1, Eos % (Auto) 3.4, [...] ordered -Patient presently admitted in the ICU, strategic planner consulted -08/16: Urine culture and sensitivity data [...] post prostate removal and radiation therapy through [facility] with subsequent bladder neck contracture and ultimately suprapubic catheter -PSA undetectable #DVT ppx: SCDs Juany Souza MD Time spent in the patient's overall evaluation,decision-making process, review of diagnostic data, adjustment of management, discussion with other providers, nursing nursing and ancillary staff involved in patient's care documentation, 36minutes Charges/Coding Visit Charges Inpatient E&M: 22692 Subs Hosp L2 08/18/24 1222 Cosigner Signature (if applicable): CC: ~ Signed [facility]03-15-2025 Discharge summary Author Kishore Nicolas [facility] Note Date/Time August 17, 2024 11: 56pm [facility] Medical Records Department [address] [place] [address] Emergency Department Summary 08/14/24 MR#: [id number] Acct: [id number] Name: BARBARA MILAN MONI Rep #:[id number] [...] 76.8 H Lymph % (Auto) 15.5 L [place] % (Auto) 0.5 Eos % (Auto) 5.7 [...] Color Urine Clarity Urine pH Ur Specific [place] Urine Protein Urine Glucose (UA) Urine Ketones Urine Occult Blood Urine Nitrite Urine Bilirubin Urine Urobilinogen Ur Leukocyte Esterase Urine RBC Urine WBC Ur Squamous Epith Cells Amorphous Sediment Urine Bacteria Urine Mucus 08/14/24 22:06 WBC RBC Hgb Hct MCV MCH MCHC RDW Std Deviation RDW Coeff of Jerry Plt Count MPV Immature Gran % (Auto) Neut % (Auto) Lymph % (Auto) [place] % (Auto) Eos % (Auto) Baso % [...] Clarity Cloudy Urine pH 8.0 Ur Specific [place] 1.010 Urine Protein 100 H Urine Glucose [...] use of iterative reconstruction technique). Reading Location: [facility] Chest X-Ray 08/14/24 21:29 IMPRESSION: No focal airspace abnormality. Reading Location: [facility] EKG Initial EKG: Interpretation: Sinus Tachycardia Differential [...] Nicolas MD - Last Filed: 08/17/24 23:56> MDM MDM Narrative Medical decision making narrative: [...] 76.8 H Lymph % (Auto) 15.5 L [place] % (Auto) 0.5 Eos % (Auto) 5.7 [...] Color Urine Clarity Urine pH Ur Specific [place] Urine Protein Urine Glucose (UA) Urine Ketones Urine Occult Blood Urine Nitrite Urine Bilirubin Urine Urobilinogen Ur Leukocyte Esterase Urine RBC Urine WBC Ur Squamous Epith Cells Amorphous Sediment Urine Bacteria Urine Mucus 08/14/24 22:06 WBC RBC Hgb Hct MCV MCH MCHC RDW Std Deviation RDW Coeff of Jerry Plt Count MPV Immature Gran % (Auto) Neut % (Auto) Lymph % (Auto) [place] % (Auto) Eos % (Auto) Baso % [...] Clarity Cloudy Urine pH 8.0 Ur Specific [place] 1.010 Urine Protein 100 H Urine Glucose [...] 30-74 minutes, Including time spent:,Discussing w/Patient &/or Family/Technical Manager [employer], Discussing w/Consultants, ArrangingAdmission or Transfer, Performing Direct Patient Care at Bedside and - (40 minutes) Discharge Plan Dx/Rx/DC Orders Clinical Impression: Acute abdominal pain in right flank, History of prostate cancer, Sepsis, Acute hypotension, Acute UTI Disposition Disposition: Acute Care Hospital [facility] Discharge Date/Time: 08/14/24 23:50 What to do if you have Problems For any increased pain, shortness of breath, bleeding, nausea or vomiting, chestpain, or any unexpected problems, contact your Primary Care Provider. Call [facility] ([phone]) or report to the closest Emergency Room. Call 911 if necessary. 08/17/24 2356 <Electronically signed by Kishore Nicolas MD> Cosigner Signature (if applicable): 08/14/24 2325 <Electronically signed by Reuben Kirkland DO> CC: Dr. Kelvin Han MD ~ Signed [facility] Work Phone: 1(709) 112-173303-14-20[address]charge [address] [facility] Medical Records Department [address] [place] [address] Emergency Department Summary 08/14/24 MR#: [id number] Acct: [id number] Name: KAYLIBARBARA SANTAMARIA MONI Rep #:[id number] : 1945 78 From: Kishore Nicolas MD PCP: Dr. Kelvin Han MD Status :ADM IN Location: ICU ICU03-1 HPI History of Present Illness Chief Complaint: Flank Pain Detail of Chief Complaint: Right flank pain Informant: patient Onset/Context/Timing Onset: Hours (4.5 hours) Context: Sudden Onset Timing: Intermittent Quality: Stabbing, sharp Current Severity: 10/10 Maximum Severity: 1010 Worsened by: Nothing Relieved by: Nothing Narrative [...] 76.8 H Lymph % (Auto) 15.5 L [place] % (Auto) 0.5 Eos % (Auto) 5.7 [...] Color Urine Clarity Urine pH Ur Specific [place] Urine Protein Urine Glucose (UA) Urine Ketones Urine Occult Blood Urine Nitrite Urine Bilirubin Urine Urobilinogen Ur Leukocyte Esterase Urine RBC Urine WBC Ur Squamous Epith Cells Amorphous Sediment Urine Bacteria Urine Mucus 08/14/24 22:06 WBC RBC Hgb Hct MCV MCH MCHC RDW Std Deviation RDW Coeff of Jerry Plt Count MPV Immature Gran % (Auto) Neut % (Auto) Lymph % (Auto) [place] % (Auto) Eos % (Auto) Baso % [...] Clarity Cloudy Urine pH 8.0 Ur Specific [place] 1.010 Urine Protein 100 H Urine Glucose [...] use of iterative reconstruction technique). Reading Location: [facility] Chest X-Ray 08/14/24 21:29 IMPRESSION: No focal airspace abnormality. Reading Location: [facility] EKG Initial EKG: Interpretation: Sinus Tachycardia Differential [...] 76.8 H Lymph % (Auto) 15.5 L [place] % (Auto) 0.5 Eos % (Auto) 5.7 [...] Color Urine Clarity Urine pH Ur Specific [place] Urine Protein Urine Glucose (UA) Urine Ketones Urine Occult Blood Urine Nitrite Urine Bilirubin Urine Urobilinogen Ur Leukocyte Esterase Urine RBC Urine WBC Ur Squamous Epith Cells Amorphous Sediment Urine Bacteria Urine Mucus 08/14/24 22:06 WBC RBC Hgb Hct MCV MCH MCHC RDW Std Deviation RDW Coeff of Jerry Plt Count MPV Immature Gran % (Auto) Neut % (Auto) Lymph % (Auto) [place] % (Auto) Eos % (Auto) Baso % [...] Clarity Cloudy Urine pH 8.0 Ur Specific [place] 1.010 Urine Protein 100 H Urine Glucose [...] use of iterative reconstruction technique). Reading Location: [facility] Chest X-Ray 08/14/24 21:29 IMPRESSION: No focal airspace abnormality. Reading Location: [facility] Critical Care Time Critical Care Time: Yes Critical care time (excluding procedures): 30-74 minutes, Including time spent:,Discussing w/Patient &/or Family/Technical Manager [employer], Discussing w/Consultants, ArrangingAdmission or Transfer, Performing Direct Patient Care at Bedside and - (40 minutes) Discharge Plan Dx/Rx/DC Orders Clinical Impression: Acute abdominal pain in right flank, History of prostate cancer, Sepsis, Acute hypotension, Acute UTI Disposition Disposition: Acute Care Hospital [facility] Discharge Date/Time: 08/14/24 23:50 What to do if you have Problems For any increased pain, shortness of breath, bleeding, nausea or vomiting, chestpain, or any unexpected problems, contact your Primary Care Provider. Call [facility] ([phone]) or report tothe closest Emergency Room. Call 911 if necessary. 08/17/24 5602 Cosigner Signature (if applicable): 08/14/24 2441 CC: Dr. Kelvin Han MD ~ Signed [facility]03-14-2025 Consult note Author Cameron Giron [facility] Note Date/Time August 17, 2024 1:[address] [facility] Medical Records Department [address] [place] [address] Consultation - Infectious Dx 08/17/24 1339 MR#: [id number] Acct: [id number] Name: BARBARA MILAN Rep #:[id number] : 1945 78 From: [...] performed and neg except as noted above. [facility] Medical History Hearing loss, left Hearing loss, [...] 84.0 H, Lymph % (Auto) 4.4 L, [place] % (Auto) 5.8, Eos % (Auto) 3.9, [...] applicable): CC: Dr. Kelvin Han MD~ Signed [facility] Work Phone: 1(539) 207-827603-14-[address] [facility] Medical Records Department [address] [place] [address] Consultation - Infectious Dx 08/17/24 1339 MR#: [id number] Acct: [id number] Name: BARBARA MILAN MONI Rep #:[id number] [...] performed and neg except as noted above. [facility] Medical History Hearing loss, left Hearing loss, [...] 84.0 H, Lymph % (Auto) 4.4 L, [place] % (Auto) 5.8, Eos % (Auto) 3.9, [...] applicable): CC: Dr. Kelvin Han MD~ Signed [facility]03-14-2025 Progress note Author Juany Souza [facility] Note Date/Time August 17, 2024 11: 01[facility] Medical Records Department [address] [place] [address] Progress Note - Hospitalist 08/17/24 0701 MR#: [id number] Acct: [id number] Name: KAYLIBARBARARAYRAY MONTENEGRO Rep #:[id number] : 1945 78 From: [...] 84.0 H, Lymph % (Auto) 4.4 L, [place] % (Auto) 5.8, Eos % (Auto) 3.9, [...] ordered -Patient presently admitted in the ICU, strategic planner consulted -08/16: Urine culture and sensitivity data [...] post prostate removal and radiation therapy through [facility] with subsequent bladder neck contracture and ultimately suprapubic catheter -PSA undetectable #DVT ppx: SCDs Juany Souza MD Charges/Coding Visit Charges Inpatient E&M: 98358 Subs Hosp L2 08/17/24 1101 <Electronically signed by Juany Souza MD> Cosigner Signature (if applicable): CC: ~ Signed [facility] Work Phone: 1(209) 871-243003-14-2025 Progress [address] [facility] Medical Records Department [address] [place] [address] Progress Note - Hospitalist 08/17/24 0701 MR#: [id number] Acct: [id number] Name: BARBARA MILAN MONI Rep #:[id number] [...] 84.0 H, Lymph % (Auto) 4.4 L, [place] % (Auto) 5.8, Eos % (Auto) 3.9, [...] Worthy Urine Culture - Preliminary Gram negative zaiza 08/14/24 22:06 Blood Culture (Wb) - Anticubital [...] ordered -Patient presently admitted in the ICU, strategic planner consulted -08/16: Urine culture and sensitivity data [...] post prostate removal and radiation therapy through [facility] with subsequent bladder neck contracture and ultimately suprapubic catheter -PSA undetectable #DVT ppx: SCDs Juany Souza MD Charges/Coding Visit Charges Inpatient E&M: 83996 Subs Hosp L2 08/17/24 1101 Cosigner Signature (if applicable): CC: ~ Signed [facility]03-14-2025 Progress note Author Darryn Underwood [facility] Note Date/Time August 17, 2024 8:[address] [facility] Medical Records Department [address] [place] [address] Progress Note - Graphic Designer 08/17/24 0808 MR#: [id number] Acct: [id number] Name: BARBARA MILAN MONI Rep #:[id number] [...] for now. This note was generated with Signal360 (formerly S[employer] Notify) dictation software. It may contain incorrectwords, spelling, [...] 84.0 H, Lymph % (Auto) 4.4 L, [place] % (Auto) 5.8, Eos % (Auto) 3.9, [...] affect normal Charges/Coding Visit Charges Inpatient E&M: 74689 Subs Hosp L2 08/17/24 0846 <Electronically signed by Darryn Underwood DO> Cosigner Signature (if applicable): CC: ~ Signed [facility] Work Phone: 1(345) 303-453603-14-20[address] [facility] Medical Records Department [address] [place] [address] Progress Note - Graphic Designer 08/17/24 0808 MR#: [id number] Acct: [id number] Name: KAYLIBARBARA SANTAMARIA MONI Rep #:[id number] : 1945 78 [...] for now. This note was generated with Signal360 (formerly Sonic Notify) dictation software. It may contain incorrectwords, spelling, [...] from August 14 is demonstrating growth at [facility]. Urine culture is demonstrating growth of agram-negative [...] 84.0 H, Lymph % (Auto) 4.4 L, [place] % (Auto) 5.8, Eos % (Auto) 3.9, [...] affect normal Charges/Coding Visit Charges Inpatient E&M: 61184 Subs Hosp L2 08/17/24 0846 Cosigner Signature (if applicable): CC: ~ Signed [facility]03-13-2025 Progress note Author Juany Souza [facility] Note Date/Time August 16, 2024 5:[address] [facility] Medical Records Department [address] [facility] [place] [address] Progress Note - Hospitalist 08/16/24 0754 MR#: [id number] Acct: [id number] Name: BARBARA MILAN MONI Rep #:[id number] : 1945 78 [...] 84.0 H, Lymph % (Auto) 3.3 L, [place] % (Auto) 5.9, Eos % (Auto) 2.2, [...] ordered -Patient presently admitted in the ICU, strategic planner consulted -08/16: Urine culture and sensitivity data [...] post prostate removal and radiation therapy through [facility] with subsequent bladder neck contracture and ultimately suprapubic catheter -PSA undetectable #DVT ppx: SCDs Juany Souza MD Charges/Coding Visit Charges Inpatient E&M: 71331 Subs Hosp L2 08/16/24 1714 <Electronically signed by Juany Souza MD> Cosigner Signature (if applicable): CC: ~ Signed [facility] Work Phone: 1(422) 705-163503-13-2025 Progress [address] [facility] Medical Records Department [address] [place] [address] Progress Note - Hospitalist 08/16/24 0754 MR#: [id number] Acct: [id number] Name: KAYLIBARBARA MONI Rep #:[id number] : 1945 78 [...] 84.0 H, Lymph % (Auto) 3.3 L, [place] % (Auto) 5.9, Eos % (Auto) 2.2, [...] ordered -Patient presently admitted in the ICU, strategic planner consulted -08/16: Urine culture and sensitivity data [...] post prostate removal and radiation therapy through [facility] with subsequent bladder neck contracture and ultimately suprapubic catheter -PSA undetectable #DVT ppx: SCDs Juany Souza MD Charges/Coding Visit Charges Inpatient E&M: 63217 Subs Hosp L2 08/16/24 1714 Cosigner Signature (if applicable): CC: ~ Signed [facility]03-13-2025 Progress note Author Darryn Underwood [facility] Note Date/Time August 16, 2024 9:[address] [facility] Medical Records Department [address] [place] [address] Progress Note - Graphic Designer 08/16/24 0750 MR#: [id number] Acct: [id number] Name: BARBARA MILAN MONI Rep #:[id number] [...] for now. This note was generated with Dragon dictation software. It may contain incorrectwords, spelling, [...] 84.0 H, Lymph % (Auto) 3.3 L, [place] % (Auto) 5.9, Eos % (Auto) 2.2, [...] affect normal Charges/Coding Visit Charges Inpatient E&M: 74280 Subs Hosp L3 08/16/24 0928 <Electronically signed by Darryn Underwood DO> Cosigner Signature (if applicable): CC: ~ Signed [facility] Work Phone: 1(502) 866-777803-13-2025 Progress note [facility] Medical Records Department [address] [place] [address] Progress Note - Graphic Designer 08/16/24 0750 MR#: [id number] Acct: [id number] Name: BARBARA MILAN MONI Rep #:[id number] [...] for now. This note was generated with TheWrapation software. It may contain incorrectwords, spelling, and [...] 84.0 H, Lymph % (Auto) 3.3 L, [place] % (Auto) 5.9, Eos % (Auto) 2.2, [...] affect normal Charges/Coding Visit Charges Inpatient E&M: 64343 Subs Hosp L3 08/16/24 0928 Cosigner Signature (if applicable): CC: ~ Signed [facility]03-12-2025 Progress note Author Juany Souza [facility] Note Date/Time August 15, 2024 3:[address] [facility] Medical Records Department [address] [place] [address] Progress Note - Hospitalist 08/15/2407 MR#: [id number] Acct: [id number] Name: BARBARA MILAN MONI Rep #:[id number] : 1945 78 From: Juany Souza MD PCP: Dr. Kelvin Han MD Status :ADM IN Location: ICU ICU08-04 Reason for Visit Reason for Visit: Diagnoses [...] 76.8 H, Lymph % (Auto) 15.5 L, [place] % (Auto) 0.5, Eos % (Auto) 5.7 [...] use of iterative reconstruction technique). [facility] Chest X-Ray 08/14/24 21:29 IMPRESSION: No focal airspace abnormality. [facility] Physical Exam Narrative General: Alert, no apparent [...] ordered -Patient presently admitted in the ICU, strategic planner consulted # Creatinine elevation from baseline in [...] post prostate removal and radiation therapy through [facility] with subsequent bladder neck contracture and ultimately suprapubic catheter -PSA undetectable #Hypertension -Patient with septic shock, hold amlodipine, lisinopril, terazosin and #DVT ppx: SCDs Juany Souza MD Charges/Coding Visit Charges Inpatient E&M: 45068 Subs Hosp L2 08/15/24 1503 <Electronically signed by Juany Souza MD> Cosigner Signature (if applicable): CC: ~ Signed [facility] Work Phone: 1(608) 470-205803-12-2025 Progress note [facility] Medical Records Department [address] [place] [address] Progress Note - Hospitalist 08/15/24 0707 MR#: [id number] Acct: [id number] Name: BARBARA MILAN Rep #:[id number] : 1945 78 From: [...] 76.8 H, Lymph % (Auto) 15.5 L, [place] % (Auto) 0.5, Eos % (Auto) 5.7 [...] use of iterative reconstruction technique). Reading Location: [facility] Chest X-Ray 08/14/24 21:29 IMPRESSION: No focal airspace abnormality. Reading Location: [facility] Physical Exam Narrative General: Alert, no apparent [...] ordered -Patient presently admitted in the ICU, strategic planner consulted # Creatinine elevation from baseline in [...] post prostate removal and radiation therapy through [facility] with subsequent bladder neck contracture and ultimately suprapubic catheter -PSA undetectable #Hypertension -Patient with septic shock, hold amlodipine, lisinopril, terazosin and #DVT ppx: SCDs Juany Souza MD Charges/Coding Visit Charges Inpatient E&M: 66118 Subs Hosp L2 08/15/24 1508 Cosigner Signature (if applicable): CC: ~ Signed [facility]03-12-2025 Procedure note [facility] Medical Records Department [address] [place] [address] Operative Report 08/15/24 1428 MR#: [id number] Acct: [id number] Name: BARBARA MILAN MONI Rep #:[id number] : 1945 78 From: Tiffanie Bello PCP: Dr. Kelvin Han MD Status :ADM IN Location: ICU ICU03-1 Problems Associated Problem List Diagnoses (1) Septic shock: (2) Acute hypotension: Multi [facility] C[facility] Radiology Radiology US Procedures: 83944 Insert PICC w/o port, w/US guidance Operative Report (Standard) Operative Information Date of Procedure: 08/15/24 Pre-Operative Diagnosis: Septic shock requiring vasopressor therapy Post-Operative Diagnosis: Septic shock requiring vasopressor therapy Surgery/Procedure Performed: Double-lumen PICC insertion director traffic and planning: No Type of Anesthesia: Local Procedure Start [...] for use. Procedure was proctored by [employer] apprenticeship training representative. A first attempt for PICC insertionwas [...] Nieto MD; Dr. Darlene Lamb MD~ Signed [facility]03-12-2025 Consult note Author [facility] Note Date/Time August 15, 2024 9:2 4am [facility] Medical Records Department [address] [place] [address] Consultation - Graphic Designer 08/15/24 0804 MR#: [id number] Acct: [id number] Name: KAYLIBARBARARAYRAY MONTENEGRO Rep #:[id number] : 1945 78 From: [...] medical intensive care unit for further management. [facility] Medical History Hearing loss, left Hearing loss, [...] 76.8 H, Lymph % (Auto) 15.5 L, [place] % (Auto) 0.5, Eos % (Auto) 5.7 [...] 93.8 H, Lymph % (Auto) 1.8 L, [place] % (Auto) 2.8, Eos % (Auto) 0.1, [...] use of iterative reconstruction technique). Reading Location: [facility] Chest X-Ray 08/14/24 21:29 IMPRESSION: No focal airspace abnormality. Reading Location: [facility] Charges/Coding Procedures Hospitalists Procedures: 21359 Critical Care 1st Hr 08/15/24 0924 <Electronically signed by Darryn Underwood DO> Cosigner Signature (if applicable): CC: Dr. Kelvin Han MD~ Signed [facility] Work Phone: 1(144) 651-786203-12-2025 Consult note Author Zhao Gilliland [facility] Note Date/Time August 15, 2024 8:[address] [facility] Medical Records Department [address] [place] [address] [place] [address] Consultation - Urology 08/15/24 0847 MR#: [id number] Acct: [id number] Name: BARBARA MILAN MONI Rep #:[id number] [...] bladder after radical prostatectomy done at the [facility] and after radiation done at the [facility] he is suffered with significant incontinence and is ended up with a suprapubic catheter which we changed every month so for now disconnect continue to change the catheter every month as planned I will watch him and see what happens but do not plan to do any intervention for the hydronephrosis since it appears to be chronic. [facility] Medical History Hearing loss, left Hearing loss, [...] 76.8 H, Lymph % (Auto) 15.5 L, [place] % (Auto) 0.5, Eos % (Auto) 5.7 [...] 93.8 H, Lymph % (Auto) 1.8 L, [place] % (Auto) 2.8, Eos % (Auto) 0.1, [...] use of iterative reconstruction technique). Reading Location: [facility] Chest X-Ray 08/14/24 21:29 IMPRESSION: No focal airspace abnormality. Reading Location: [facility] 08/15/24 0849 <Electronically signed by Zhao Gilliland MD> Cosigner Signature (if applicable): CC: Dr. Kelvin Han MD~ Signed [facility] Work Phone: 1(481) 326-819103-12-2025 Consult note [facility] Medical Records Department [address] [place] [address] Consultation - Graphic Designer 08/15/24 0804 MR#: [id number] Acct: [id number] Name: BARBARA MILAN MONI Rep #:[id number] [...] plans for PICC line placement this morn ing. In addition, the patient will be started [...] medical intensive care unit for further management. [facility] Medical History Hearing loss, left Hearing loss, [...] 76.8 H, Lymph % (Auto) 15.5 L, [place] % (Auto) 0.5, Eos % (Auto) 5.7 [...] 93.8 H, Lymph % (Auto) 1.8 L, [place] % (Auto) 2.8, Eos % (Auto) 0.1, [...] IMPRESSION: No focal airspace abnormality. [facility] Charges/Coding Procedures Hospitalists Procedures: 67274 Critical Care 1st Hr 08/15/24 0924 Cosigner Signature (if applicable): CC: Dr. Kelvin Han MD~ Signed [facility]03-12-2025 History and physical note Author Rajinder Iyer [facility] Note Date/Time August 15, 2024 6:[address] [facility] Medical Records Department [address] [place] [address] H&P Exam - Hospitalist 08/14/24 2322 MR#: [id number] Acct: [id number] Name: BARBARA MILAN Rep #:[id number] : 1945 78 From: [...] history of Left TKR who presents to [facility] ER complaining of fever, Right flank [...] is expected to extend beyond 2 midnights. [facility] Medical History Hearing loss, left Hearing loss, [...] 76.8 H, Lymph % (Auto) 15.5 L, [place] % (Auto) 0.5, Eos % (Auto) 5.7 [...] ordered for a.m. Give acetaminophen prn for [id number] (level 1- 5/10) pain or fever. Give [...] Vasopressors started Charges/Coding Visit Charges Inpatient E&M: 61649 Init Hosp L3 08/15/24 0656 <Electronically signed by Rajinder Acosta DO> Cosigner Signature (if applicable): CC: Dr. Kelvin Han MD; Dr. Rajinder Acosta DO~ Signed [facility] Work Phone: 1(509) 950-164303-12-2025 Consult [address] [facility] Medical Records Department [address] [place] [address] Consultation - Urology 08/15/24 0847 MR#: [id number] Acct: [id number] Name: BARBARA MILAN MONI Rep #:[id number] [...] bladder after radical prostatectomy done at the [facility] and after radiation done at the [facility] he is suffered with significant incontinence and is ended up with a suprapubic catheter which we changed every month so for now disconnect continue to change the catheter every month as planned I will watch him and see what happens but do not plan to do any intervention for the hydronephrosis since it appears to be chronic. [facility] Medical History Hearing loss, left Hearing loss, [...] 76.8 H, Lymph % (Auto) 15.5 L, [place] % (Auto) 0.5, Eos % (Auto) 5.7 [...] 93.8 H, Lymph % (Auto) 1.8 L, [place] % (Auto) 2.8, Eos % (Auto) 0.1, [...] use of iterative reconstruction technique). Reading Location: [facility] Chest X-Ray 08/14/24 21:29 IMPRESSION: No focal airspace abnormality. Reading Location: [facility] 08/15/24 0849 Cosigner Signature (if applicable): CC: Dr. Kelvin Han MD~ Signed [facility]03-12-2025 History and physical note [facility] Medical Records Department [address] [place] [address] H&P Exam - Hospitalist 08/14/24 2322 MR#: [id number] Acct: [id number] Name: BARBARA MILAN MONI Rep #:[id number] [...] history of Left TKR who presents to [facility] ER complaining of fever, Right flank [...] is expected to extend beyond 2 midnights. [facility] Medical History Hearing loss, left Hearing loss, [...] 76.8 H, Lymph % (Auto) 15.5 L, [place] % (Auto) 0.5, Eos % (Auto) 5.7 [...] IMPRESSION: No focal airspace abnormality. Reading Location: [facility] Assessment & Plan Assessment/Plan (1) Sepsis: QUALIFIERS: [...] ordered for a.m. Give acetaminophen prn for hxqs-wa-qkfivzue (level 1-5/10) pain or fever. Give morphine [...] Vasopressors started Charges/Coding Visit Charges Inpatient E&M: 84753 Init Hosp 08/15/24 0656 Cosigner Signature (if applicable): CC: Dr. Kelvin Han MD; Dr. Rajinder Acosta DO~ Signed [facility]03-12-2025 Evaluation note* Diagnosis Onset Date Resolution [...] radiation cystitis chronic August 14, 2024 11:36pm [facility] Work Phone: 1(935) 891-104803-12-2025 Evaluation note* Diagnosis Onset Date Resolution Status [...] indwelling catheter resolved August 14, 2024 11:36pm [facility] Work Phone: 1(381) 230-629303-11-2025 Radiology Diagnostic study note [facility] Imaging Services [address] [place] [address] Chest PA and Lateral MR#: [id number] Acct: [id number] Name: BARBARA MILAN Rep #: [id number] : 1945 M 78 From: Jon Christopher DO PCP: Dr. Kelvin Han MD Status: REG ER Study:Chest PA and Lateral Date of Exam: 08/14/24 Exam# [id number] Ordering Dr: Teena Nicolas MD PROCEDURE: CHEST PA AND LATERAL REASON FOR EXAM: SEPSIS TECHNIQUE: Frontal and lateral views of the chest. COMPARISON: 12/21/2023 FINDINGS: Cardiomediastinal silhouette is within normal limits. Lungs are clear. No sizable pneumothorax. RAD/Chest PA and Lateral IMPRESSION: No focal airspace abnormality. Reading Location: NO CC: Dr. Kelvin Han MD; Dr. Kishore Nicolas MD ~ Master Sheet Clerk: Signed [facility]03-11-2025 Radiology Diagnostic study note [facility] Imaging Services [address] [place] [address] Abdomen/Pelvis without Cont MR#: [id number] Acct: [id number] Name: BARBARA MILAN MONI Rep #: [id number] : 1945 M 78 From: Jon Christopher DO PCP: Dr. Kelvin Han MD Status: REG ER Study:Abdomen/Pelvis without Cont Date of Exa m: 08/14/24 Exam# [id number] Ordering Dr: Teena Nicolas MD PROCEDURE: CT [...] Han MD; Dr. Kishore Nicolas MD ~ Master Sheet Clerk: Signed [facility]12-06-2024 NoteHNO ID: [id number] Author: KEIRY MICHAELS CT Service: ? Author Type: Clinical Radio Repairer Domestic Type: Progress Notes Filed: 05/11/2024 14:03 Note [...] (optional for EMERGENT procedures): No specimen collected. [facility] of Present illness Narrative* Keiry [...] specimen collected. ESDRAS Good documented in this encounterPromedica Fostoria [facility]12-06-2024 NoteHNO ID: [id number] Author: MATT GARCIA MD Service: ? Author [...] to avoid if at all possible Matt Garcia, [facility]12-06-2024 Procedure note* Matt Eagle MD - [...] the SP tract and the balloon inflated [id number] of sterile water once position within the bladder was confirmed with return of fluid. COMPLICATIONS: None RECOMMENDATIONS: Discussed findings with patient. POST PROCEDURE Condition: satisfactory Plan: Continue monthly spt exchanges locally If hematuria returns could do hbo again Discussed end stage option of cx and IC - he would like to avoid if at all possible Matt Garcia MD [facility]12-06-2024 Procedure note* Matt Garcia MD - [...] the SP tract and the balloon inflated [id number] of sterile water once position within the bladder was confirmed with return of fluid. COMPLICATIONS: None RECOMMENDATIONS: Discussed findings with patient. POST PROCEDURE Condition: satisfactory Plan: Continue monthly spt exchanges locally If hematuria returns could do hbo again Discussed end stage option of cx and IC - he would like to avoid if at all possible Matt Garcia MD documented in this encounterPromedica Fostoria Community Hospital12-06-2024 Nurse Note* Keiry Michaels CT - 05/11/2024 1:02 PM EST Patient ID with (2) Identifiers, Verified by: ESDRAS Good Actual procedure/procedure scheduled: Yes Performing provider/scheduled provider: Yes Patient was roomed in: 9- 07 Utility Tender Carding offered:Patient declines Patient arrived in the room [...] Education Session: None Instruction Provided To: Patient Safety Consultant Present: no Discipline: Nursing Learning Topic: SURVIVAL SKILLS: Symptom Management Patient Evaluation: Verbalizes understanding: Yes Supplemental Material Given: Written Material Instructed By ESDRAS Good In Department Urology . [facility]12-06-2024 Nurse Note* Keiry Michaels CT - 05/11/2024 1:02 PM EST Patient ID with (2) Identifiers, Verified by: ESDRAS Good Actual procedure/procedure scheduled: Yes Performing provider/scheduled provider: Yes Patient was roomed in: Q9- 07 Utility Tender Carding offered:Patient declines Patient arrived in the room [...] Education Session: None Instruction Provided To: Patient Safety Consultant Present: no Discipline: Nursing Learning Topic: SURVIVAL SKILLS: Symptom Management Patient Evaluation: Verbalizes understanding: Yes Supplemental Material Given: Written Material Instructed By ESDRAS Good In Department Urology . documented in this encounterPromedica Fostoria [facility] Hospital10-28-2024 NoteHNO ID: [id number] Author: ANNABELLA ARCE APRN.PHARMACY BENEFIT MANAGER Service: ? Author Type: Nurse Woods Superintendent Type: Anesthesia Procedure Notes Filed: 04/02/2024 13:41 Note Text: ANESTHESIOLOGY PROCEDURE NOTE Airway General Information Procedure Start Time/Medication Administration: 04/02/2024 1:20 PM Procedure End Time: 04/02/2024 1:20 PM Patient location during procedure: OR Timeout Performed Pre-procedure: timeout performed Consent Obtained: Yes Patient identity confirmed: arm band and patient Staffing Anesthesiologist: Kavin Conte MD PHARMACY BENEFIT MANAGER: Rubina Sawyer APRN.PHARMACY BENEFIT MANAGER SRNA: Leonel Orona, SRNA Performed by: CLOTILDE Indications and Patient [...] April 02, 2024 TIME: 1:40 PM CSN: [id number]10-[facility]-2024 Telephone encounter Note* Telephone Encounter - Amalia Childers MD - 03/28/2024 8:16 AM EDT Called patient about pre op abx, no answer [facility]10-23-2024 Miscellaneous Notes* Telephone Encounter - Amalia Childers MD - 03/28/2024 8:16 AM EDT Called patient about pre op abx, no answer documented in this encounterPromedica Fostoria Community Hospital09-27-2024 NoteHNO ID: [id number] Author: HAWA ZEPEDA MD Service: ? Author Type: Anesthesiologist Type: Progress Notes Filed: 03/02/2024 14:41 Note Text: Attending Note I evaluated the patient and personally participated in the hurd components. I agree with the resident's findings and plan as documented and have discussed the case and management of the patient's care with the resident. Signature: Hawa Zepeda MD Date: 03/02/2024 Time: 2:41 [facility]09-27-2024 History of Present illness Narrative* Hawa Zepeda MD - 03/02/2024 2:41 PM EDT Attending Note I evaluated the patient and personally participated in the hurd components. I agree with the resident's findings and plan as documented and have discussed the case and management of the patient's carewith the resident. Signature: Hawa Zepeda MD Date: 03/02/2024 Time: 2:41 PM documented in this encounterPromedica Fostoria Community Hospital09-27-2024 NoteHNO ID: [id number] Author: KENYETTA GARCIA LPN Service: ? Author [...] (RECOMMENDATION): None Supplies ordered and sent to [facility] medical. Electronically Signed By: Kenyetta Garcia LPN [facility] History of Present illness Narrative* Kenyetta [...] (RECOMMENDATION): None Supplies ordered and sent to [address] [place] [address]. Electronically Signed By: Kenyetta Garcia LPN In Department: Urology documented in this encounterPromedica Fostoria Community Hospital09-27-2024 Instructions* Patient Instructions* Dio Javier MD - 03/02/2024 10:13 AM EDT Images from the original note were not included. [facility] PATIENT PREOPERATIVE INSTRUCTIONS Matt Garcia MD has scheduled you for your procedure at this surgery center: [facility] [place] Scheduling Office: [phone] --[address] [place] [address]. Please read below carefully for your personalized [...] the day of the surgery mv with gmi-PX-kdryrdev-ginkgo (ONE-A-DAY MEN'S 50+ ADVANTAGE) 400-300-120 mcg-mcg-mg tab [...] Procedures: - YOU MUST HAVE A RESPONSIBLE SHINGLE BOLT CUTTER TAKE YOU HOME. A APPARATUS CLEANER OR STRANDING MACHINE OPERATOR CANNOT BE MADE A RESPONSIBLE SHINGLE BOLT CUTTER. - We recommend that a responsible person [...] call the Tuesday before. Your surgeon s industrial chemicals supervisor will tell you what time to call the office. - If you have not reached the departmental industrial chemicals supervisor by 5 P.M., call [phone] after 5 P.M. the day before your surgery. Please be aware that emergency situations arise, which may delay or change your surgical time. If this happens, we will notify you as soon as possible and regret any inconvenience. If you already have an Advance Directive, please fax a copy to [phone] or email to for it to be [...] day. Dio Javier MD documented in this encounterPromedica Fostoria Community Hospital09-27-2024 History and physical note * Dio [...] -Completed outpatient hyperbaric oxygen therapy 03/01 at [facility] for hematuria/friable, bleeding mucosa over the bladder neck seen on cysto -Has had additional clot evacs and bladder neck incisions this past year at [facility], had laser BNI November 13 2023 -Recent Admission early February at [facility] for gross hematuria- underwent cystoscopy on 02/11for [...] equal to 35 kg/m^2 STOP-Bang Score: 4 [id number] Score: Hypertension history: Yes [id number]-SQTn Score: ANESTHESIA FINDINGS: Intubation History: No abnormal [...] Admin: COVID-19 vaccine, age 12+ yr, season (Yipit) 03/06/2022 Outside Immunization: COVID-19, mRNA, LNP-S, PF, [...] mouth twice daily. Taking Yes mv with rbs-WI-shppryll-ginkgo (ONE-A-DAY MEN'S 50+ ADVANTAGE) 400-300-120 mcg-mcg-mg tab [...] or any previous visit (from the past 83598 hour(s)). Instructions Given to Patient: Instructions located in the after visit summary. Patient given verbal and written preop instructions and voices comprehension and compliance. SIGNATURE: Dio Javier MD PATIENT NAME: Barbara Milan DATE: March 02, 2024 TIME: 9:41 AM PAGER/CONTACT #: [facility]09-27-2024 History and physical note* Dio Javier [...] -Completed outpatient hyperbaric oxygen therapy 03/01 at [facility] for hematuria/friable, bleeding mucosa over the bladder neck seen on cysto -Has had additional clot evacs and bladder neck incisions this past year at [facility], had laser BNI November 13 2023 -Recent Admission early February at [facility] for gross hematuria- underwent cystoscopy on 02/11for [...] equal to 35 kg/m^2 STOP-Bang Score: 4 [id number] Score: Hypertension history: Yes [id number] Score: ANESTHESIA FINDINGS: Intubation History: No abnormal [...] Admin: COVID-19 vaccine, age 12+ yr, season ([place]ipit) 03/06/2022 Outside Immunization: COVID-19, mRNA, LNP-S, PF, 100 mcg/0.5mL dose or 50 mcg/0.25mL dose 03/01/2022 Imm Admin: COVID-19 vaccine, age 12+ yr, bivalent (MODERNA) Only the first 3 history entries have been loaded, but more history exists. CHIEF COMPLAINT: Anesthesia Pre-op evaluation HPI: Favian Milan is a 78 year old male with PMH of htn, CKD, prostate cancer s/p prostatectomy 2011 and radiation 2016 + ADT (androgen deprivation therapy) Flexible cystoscopy [...] mouth twice daily. Taking Yes mv with inu-MV-skoybsln-ginkgo (ONE-A-DAY MEN'S 50+ ADVANTAGE) 400-300-120 mcg-mcg-mg tab [...] or any previous visit (from the past 33522 hour(s)). Instructions Given to Patient: Instructions located in the after visit summary. Patient given verbal and written preop instructions and voices comprehension and compliance. SIGNATURE: Dio Javier MD PATIENT NAME: Barbara Milan DATE: March 02, 2024 TIME: 9:41 AM PAGER/CONTACT #: documented in this encounterPromedica Fostoria Community Hospital09-24-2024 Telephone encounter Note * Telephone Encounter [...] about HBOT, then she has to call [phone] to scheduled an assessment with their providers. The locations available are [facility], [facility], [facility], [facility]. Can you call and let her know? [...] also has some questions . Thanks Erin [facility] Work Phone: [phone] Miscellaneous Notes* Telephone Encounter - Amalia Shah [...] about HBOT, then she has to call [phone] to scheduled an assessment with their providers. The locations available are [place], [place], [facility], [facility], [facility], [facility]. Can you call and let her know? [...] questions . Manda Khan documented in this encounterPromedica Fostoria Community Hospital09-20-2024 NoteHNO ID: [id number] Author: OSCAR HURT RN Service: ? Author [...] Care Visit completed when applicable. Oscar Hurt [facility]09-[facility] History of Present illness Narrative* Oscar [...] applicable. Oscar Hurt RN documented in this encounterPromedica Fostoria Community Hospital09-20-2024 Instructions* Patient Instructions* Matt Garcia MD [...] it is an option documented in this encounterPromedica Fostoria Community Hospital09-20-2024 Nurse Note* Oscar Hurt RN - 02/24/2024 12:38 PM EDT Actual procedure/procedure scheduled: Yes Performing provider/scheduled provider: Yes Patient was roomed in: Q9- 11 Utility Tender Carding offered:Patient declines Patient arrived in the room [...] 0 on a 0-10 pain scale. Oscar [place], GRAPHITE DISK ASSEMBLER PATIENT EDUCATION THE FOLLOWING WAS EVALUATED Motivation To Learn: Interested Family/Significant Other Support: Unable to assess - Family not present Cognitive Ability: Alert/Oriented Method of Instruction: Individual instruction Written instruction/Handouts Verbal instruction The Following Influencing Factors Were Barriers To This Education Session: None The Following Physical Limitations Were Barriers To This Education Session: None Instruction Provided To: Patient Safety Consultant Present: not applicable Discipline: Nursing Learning Topic: SURVIVAL SKILLS: Complication Prevention Symptom Management Patient Evaluation: Verbalizes understanding: Yes Supplemental Material Given: Written Material Instructed By Oscar Hurt RN In Department Urology . [facility]09-20-2024 Nurse Note* Oscar Hurt RN - 02/24/2024 12:38 PM EDT Actual procedure/procedure scheduled: Yes Performing provider/scheduled provider: Yes Patient [facility] Utility Tender Carding offered:Patient declines Patient arrived in the room [...] Education Session: None Instruction Provided To: Patient Safety Consultant Present: not applicable Discipline: Nursing Learning Topic: SURVIVAL SKILLS: Complication Prevention Symptom Management Patient Evaluation: Verbalizes understanding: Yes Supplemental Material Given: Written Material Instructed By Oscar Hurt RN In Department Urology . documented in this encounterPromedica Fostoria Community Hospital09-20-2024 NoteHNO ID: [id number] Author: MATT GARCIA MD Service: ? Author Type: Physician Type: Procedures Filed: 02/24/2024 14:04 Note Text: PHYSICIAN'S NOTE: Procedure: Cystoscopy Epic notes reviewed: yes 78 year old male with a history of [place] 9 prostate cancer sp RP 2011 and [...] consider and let me know Matt Garcia [facility]09-20-2024 Procedure note* Matt Eagle MD - 02/24/2024 12:27 PM EDT PHYSICIAN'S NOTE: Procedure: Cystoscopy Epic notes reviewed: yes 78 year old male with a history of [place] 9 prostate cancer sp RP 2011 and [...] and let me know Matt Garcia MD [facility]09-20-2024 Procedure note* Matt Garcia MD - 02/24/2024 12:27 PM EDT PHYSICIAN'S NOTE: Procedure: Cystoscopy Epic notes reviewed: yes 78 year old male with a history of [place] 9 prostate cancer sp RP 2011 and [...] know Matt Garcia MD documented in this encounterPromedica Fostoria Community Hospital07-19-2024 NoteHNO ID: [id number] Author: LEROY KLINE RN Service: ? Author [...] Care Visit completed when applicable. Leroy Kline [facility]07-[facility]-2024 History of Present illness Narrative* Leroy [...] applicable. Leroy Kline RN documented in this encounterPromedica Fostoria Community Hospital07-19-2024 NoteHNO ID: [id number] Author: MATT GARCIA MD Service: ? Author Type: Physician Type: Procedures Filed: 12/23/2023 17:13 Note Text: PHYSICIAN'S NOTE: Procedure: Cystoscopy Epic notes reviewed: yes Mr. Milan is a 78 year old male with a history of [place] 9 prostate cancer sp RP 2011 and [...] happy to be back in depends [facility] Procedure note* Matt Eagle MD - 12/23/2023 1:34 PM EDT PHYSICIAN'S NOTE: Procedure: Cystoscopy Epic notes reviewed: yes Mr. Milan is a 78 year old male with a history of [place] 9 prostate cancer sp RP 2011 and [...] be back in depends Matt Garcia MD [facility]07-19-2024 Procedure note* Matt Garcia MD - [...] depends Matt Garcia MD documented in this encounterPromedica Fostoria Community Hospital07-19-2024 Nurse Note* Leroy Kline RN - 12/23/2023 12:49 PM EDT Actual procedure/procedure scheduled: Yes Performing provider/scheduled provider: Yes Patient was roomed in: Q9- 05 Utility Tender Carding offered:Patient declines Patient arrived in the room [...] Sight: Corrective lenses Instruction Provided To: Patient Safety Consultant Present: not applicable Discipline: Nursing Learning Topic: SURVIVAL SKILLS: Complication Prevention Symptom Management Patient Evaluation: Verbalizes understanding: Yes Supplemental Material Given: Written Material Instructed By Leroy Kline RN In Department Urology . [facility]07-19-20[facility] Nurse Note* Leroy Kline RN - 12/23/2023 12:49 PM EDT Actual procedure/procedure scheduled: Yes Performing provider/scheduled provider: Yes Patient was roomed in: Q9- 05 Utility Tender Carding offered:Patient declines Patient arrived in the room [...] Sight: Corrective lenses Instruction Provided To: Patient Safety Consultant Present: not applicable Discipline: Nursing Learning Topic: SURVIVAL SKILLS: Complication Prevention Symptom Management Patient Evaluation: Verbalizes understanding: Yes Supplemental Material Given: Written Material Instructed By Leroy Kline RN In Department Urology . documented in this encounterPromedica Fostoria Community Hospital07-12-2024 NoteHNO ID: [id number] Author: MATT GARCIA MD Service: ? Author Type: Physician Type: Progress Notes Filed: 12/16/2023 09:10 Note Text: [facility] UROLOGY NEW PATIENT [...] still in now Multiple ER visits in [facility] for hematuria, retention CKD Cr 1.3 (last [...] not taking: Reported on 12/16/2023) mv with nuw-AV-zabwpoqy-ginkgo (ONE-A-DAY MEN'S 50+ ADVANTAGE) 400-300-120 mcg-mcg-mg tab [...] 12/16/2015 09:21 AM HCT (more content not included)...[facility] History of Present illness Narrative* Matt Garcia MD - 12/16/2023 7:20 AM EDT Images from the original note were not included. [facility] UROLOGY NEW PATIENT [...] still in now Multiple ER visits in [facility] for hematuria, retention CKD Cr 1.3 (last [...] not taking: Reported on 12/16/2023) mv with psy-VG-tzdlihqs-ginkgo (ONE-A-DAY MEN'S 50+ ADVANTAGE) 400-300-120 mcg-mcg-mg tab [...] Body mass index is 26.7 kg/m . 12/16/23 08 BP: 121/75 BP Site: Left [...] questions answered. Matt Garcia MD Associate Staff [facility] [place] Department of Urology I spent a total of 40 minutes on the date of the service which included preparing to see the patient, knor-ag-yujk patient care, completing clinical documentation, obtaining and/or reviewing separately obtained history, performing a medically appropriate examination, counseling and educating the pat ient/family/caregiver, and ordering medications, tests, or procedures. >50% of time was devoted to patient counseling. documented in this encounterPromedica Fostoria Community Hospital07-12-2024 NotePatient Outreach (UROLMN) BARBARA MILAN ([id number]) 1945 M Date Time Provider Department 12/16/23 MATT GARCIA UROCHUCKY During your visit today, we recorded the [...] for genitourinary condition [Z13.89] Order(s):URINALYSIS, REFLEX MICROSCOPIC [FDB1995] Order #: [id number] Prescriptions as of 12/19/2023 - terazosin (HYTRIN) [...] intramuscularly every 4 months. - mv with dli-WY-yrqanmot-ginkgo (ONE-A-DAY MEN'S 50+ ADVANTAGE) 400-300-120 mcg-mcg-mg tab [...] Gross hematuria [R31.0] 02/07/2023 Encounter Status:Closed by [employer], PRODUSER on 12/19/23[facility] 10[facility] Procedure [facility]09-18-2023 Discharge summary Author Zhao Gilliland [facility] February 21, 2023 7:36am Note Date/Time February 21, 2023 7:[address] [facility] Medical Records Department [address] [place] [address] Discharge Summary 02/21/23 0735 MR#: [id number] Acct: [id number] Name: BARBARA MILAN MONI Rep #:[id number] : 1945 77 From: Zhao Gilliland MD PCP: Dr. Eduardo Han MD Status: ADM IN [facility] Summary Summary: 77-year-old male has a [...] Han MD; Dr. Zhao Gilliland MD~ Signed [facility] Work Phone: 1(927) 678-336509-17-2023 Consult note Author Zhao Gilliland [facility] February 20, 2023 11:53am Note Date/Time February 20, 2023 11:53am [facility] Medical Records Department [address] [place] [address] Consultation 02/20/23 1152 MR#: [id number] Acct: [id number] Name: BARBARA MILAN MONI Rep #:[id number] : 1945 77 From: Zhao Gilliland MD PCP: Dr. Eduardo Han MD Status: ADM IN [facility] Consult Date of Consult: 02/20/23 Reason for [...] applicable): CC: Dr. Eduardo Han MD~ Signed [facility] Work Phone: 1(959) 815-897109-17-2023 History and physical note Author Zhao Glililand [facility] February 20, 2023 1:04am Note Date/Time February 20, 2023 1:04am [facility] Medical Records Department [address] [place] [address] History & Physical Exam 02/20/23 0101 MR#: [id number] Acct: [id number] Name: BARBARA MILAN MONI Rep #:[id number] : 1945 77 From: Zhao Gilliland MD PCP: Dr. Eduardo Han MD Status: ADM BRAEDEN Location: [facility] UE647-0 HPI - General General Date of Admission: [...] the clots and cauterize the bleeding again. [facility] Medical History Blood in urine Prostate cancer [...] (Auto) 72.6 H, Lymph % (Auto) 8.8 L,[place] % (Auto) 11.1 H, Eos % (Auto) [...] Han MD; Dr. Zhao Gilliland MD~ Signed [facility] Work Phone: 1(619) 539-684409-17-2023 Discharge summary Author Temi [facility] February 19, 2023 11:51pm Note Date/Time February 19, 2023 11:09pm [facility] Medical Records Department [address] [place] [address] Emergency Department Summary 02/19/23 MR#: [id number] Acct: [id number] Name: KAYLIBARBARA MONI Rep #:[id number] : 1945 77 From: Temi Larson PCP: Dr. Eduardo Han MD Status: ADM BRAEDEN Location: [address] History of Present Illness Chief Complaint: [...] admitted to our hospital and also at [facility]. He has had 2 different cystoscopies as [...] time. Is not on any blood thinners. [facility] Medical History Blood in urine Prostate cancer [...] Chief Complaint: Worthy C/O ED Provider: Temi Macias Dx/Rx/DC Orders Clinical Impression: Hematuria, Complication, blocked [...] Provider] - Disposition Disposition: Acute Care Hospital [facility] What to do if you have Problems For any increased pain, shortness of breath, bleeding, nausea or vomiting, chestpain, or any unexpected problems, contact your Primary Care Provider. Call [facility] ([phone]) or report to the closest Emergency Room. Call 911 if necessary. 02/19/23 2351 <Electronically signed by Temi Macias DO> Cosigner Signature (if applicable): CC: Dr. Eduardo Han MD ~ Signed [facility] Work Phone: 1(519) 765-310309-17-2023 Procedure [facility] 02-17-2023 Discharge summary Author Zhao Gilliland [facility] February 17, 2023 7:27am Note Date/Time February 17, 2023 7:27am [facility] Medical Records Department [address] [place] [address] Discharge Summary 02/17/23 0724 MR#: [id number] Acct: [id number] Name: KAYLIBABRARA SANTAMARIA MONI Rep #:[id number] : 1945 77 From: Zhao Gilliland MD PCP: Dr. 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 Last week he presented to [facility] with severe pain and bleeding but I was out of town so the patient was t transferred [place] to [place] and [place] he told hewas transferred to [facility] and with surgery there and had a cystoscopy clot evacuation according to the patient not have any wrote notes but then he presented to the ER here at [facility] and they called me so the patient [...] to send him home with a 18 Senegalese catheter and he can follow-up in my [...] Laboratory: Laboratory Results - last 24 hr 02/17/23 06:30: WBC 8.7, RBC 2.65 L, Hgb [...] Han MD; Dr. Zhao Gilliland MD~ Signed [facility] Work Phone: 1(182) 143-321909-13-2023 Progress note Author Zhao Gilliland [facility] February 16, 2023 3:07pm Note Date/Time February 16, 2023 3:07pm [facility] Medical Records Department [address] [place] [address] Progress Note - Urology 02/16/23 1506 MR#: [id number] Acct: [id number] Name: BARBARA MILAN MONI Rep #:[id number] : 1945 77 From: Zhao Gilliland MD PCP: Dr. Eduardo Han MD Status: ADM IN Location: MS3 [id number] Subjective Subjective Status post resection and cauterization [...] Cosigner Signature (if applicable): CC: ~ Signed [facility] Work Phone: 1(246) 446-118409-12-2023 Progress note Author Zhao Gilliland [facility] February 15, 2023 12:05pm Note Date/Time February 15, 2023 12:05pm [facility] Medical Records Department [address] [place] [address] Progress Note - Urology 02/15/23 1204 MR#: [id number] Acct: [id number] Name: BARBARA MILAN MONI Rep #:[id number] : 1945 77 From: Zhao Gilliland MD PCP: Dr. Eduardo Han MD Status: ADM IN Location: [place] [address] Subjective Subjective Status post cystoscopy clot evacuation [...] 83.6 H, Lymph % (Auto) 6.8 L, [place] % (Auto) 7.1, Eos % (Auto) 1.4, [...] Cosigner Signature (if applicable): CC: ~ Signed [facility] Work Phone: 1(716) 509-187809-11-2023 History and physical note Author Zhao Gilliland [facility] February 14, 2023 4:34pm Note Date/Time February 14, 2023 4:34pm [facility] Medical Records Department [address] [place] [address] History & Physical Exam 02/14/23 1633 MR#: [id number] Acct: [id number] Name: BARBARA MILAN MONI Rep #:[id number] : 1945 77 From: Zhao Gilliland MD PCP: Dr. Eduardo Han MD Status: ADM BRAEDEN Location: [facility] IL355-9 HPI - General General Date of Admission: 02/14/23 Date of Service: 02/14/23 Chief Complaint: Gross hematuria HPI Narrative BARBARA MILAN, is a 77 M who presents to the emergency room with gross hematuriahad a cystoscopy clot evacuation done at [facility] last week presents back to the emergency room with more bleeding and a taken back to surgery today hopefully find the bleeding and stop it with cauterization and three-way irrigation [facility] Medical History Blood in urine Prostate cancer [...] 83.6 H, Lymph % (Auto) 6.8 L, [place] % (Auto) 7.1, Eos % (Auto) 1.4, [...] Samy Natarajan MD at 14:21 EDT , 02/14/23 3194 <Electronically signed by Zhao Gilliland MD> Cosigner Signature (if applicable): CC: Dr. Eduardo Han MD; Dr. Zhao Gilliland MD~ Signed [facility] Work Phone: 1(738) 945-877109-11-2023 [facility] Discharge summary Author Damian Melvin [facility] February 14, 2023 3:51pm Note Date/Time February 14, 2023 10:41am [facility] Medical Records Department [address] [place] [address] Emergency Department Summary 02/14/23 MR#: [id number] Acct: [id number] Name: BARBARA MILAN MONI Rep #:[id number] : 1945 77 From: Damian Larson PCP: Dr. Eduardo Han MD Status: ADM BRAEDEN Location: MS3 [id number] HPI History of Present Illness Chief Complaint: [...] There is red cloudy urine. Occult blood evq315 with greater than 100 red blood cells. [...] 83.6 H Lymph % (Auto) 6.8 L [place] % (Auto) 7.1 Eos % (Auto) 1.4 [...] Clarity Cloudy Urine pH 8.0 Ur Specific Breckenridge 1.010 Urine Protein 500 H Urine Glucose [...] Provider] - Disposition Disposition: Acute Care Hospital [facility] What to do if you have Problems For any increased pain, shortness of breath, bleeding, nausea or vomiting, chestpain, or any unexpected problems, contact your Primary Care Provider. Call [facility] ([phone]) or report to the closest Emergency Room. Call 911 if necessary. 02/14/23 1551 <Electronically signed by Damian Melvin DO> Cosigner Signature (if applicable): CC: Dr. Eduardo Han MD ~ Signed [facility] Work Phone: 1(589) 423-902909-11-2023 Discharge summary Author Damian Melvin [facility] February 14, 2023 3:51pm Note Date/Time February 14, 2023 10:41am [facility] Medical Records Department [address] [place] [address] Emergency Department Summary 02/14/23 MR#: [id number] Acct: [id number] Name: KAYLIBARBARA SANTAMARIA MONI Rep #:[id number] : 1945 77 From: Damian Larson PCP: Dr. Eduardo Han MD Status: ADM BRAEDEN Location: [address] History of Present Illness Chief Complaint: Complaint [...] or vomiting. Patient denies any back pain. [facility] Medical History Blood in urine Prostate cancer [...] There is red cloudy urine. Occult blood crl571 with greater than 100 red blood cells. [...] 83.6 H Lymph % (Auto) 6.8 L [place] % (Auto) 7.1 Eos % (Auto) 1.4 [...] Clarity Cloudy Urine pH 8.0 Ur Specific [place] 1.010 Urine Protein 500 H Urine Glucose [...] Provider] - Disposition Disposition: Acute Care Hospital [facility] What to do if you have Problems For any increased pain, shortness of breath, bleeding, nausea or vomiting, chestpain, or any unexpected problems, contact your Primary Care Provider. Call [facility] ([phone]) or report to the closest Emergency Room. Call 911 if necessary. 02/14/23 1551 <Electronically signed by Damian Melvin DO> Cosigner Signature (if applicable): CC: Dr. Eduardo Han MD ~ Signed [facility] Work Phone: 1(541) 291-934909-09-2023 NoteHNO ID: [id number] Author: Lauren Lubin RN Service: Care Management [...] 12, 2023 TIME: 11:07 AM PAGER/CONTACT #: [phone] [facility] 02-12-2023 NoteHNO ID: [id number] Author: Lauren Lubin RN Service: Care Management Author Type: Registered Nurse Type: Care Mgt Progress Note Filed: 02/12/2023 11:06 AM Note Text: CARE MANAGEMENT DISCHARGE NOTE SERVICE DATE: 02/12/2023 SERVICE TIME: 11:05 AM LOS: 4 days Caregiver is ready, willing and able to meet the patient's needs as recommended by the inter-professional team: Yes Name of Caregiver: Kate Duarte [facility] for PT Transportation Arrangements: Car Date of Trip: 02/12/23 Destination: Home Patient is being discharged to home. Home care orders were sent. [facility] is made aware of discharge today. SIGNATURE: Lauren Lubin RN PATIENT NAME: Barbara Milan DATE: February 12, 2023 TIME: 11:05 AM PAGER/CONTACT #: [phone] Memorial Hospital 02-12-2023 NoteHNO ID: [id number] Author: Mayra Carrasquillo MD Service: Urology Author [...] follow up scheduled with his Urologist in [place]. DC with Foley. Rio Pardo MD UROLOGY PROGRESS NOTE PATIENT [...] Intake/Output Summary (Last 24 hours) at 02/12/2023 044 Last data filed at 02/11/2023 1945 Gross [...] 27.3* 28.8* PLT 211 203 Urinalysis: Specific [place], Ur Date Value Ref Range Status 02/23/2012 [...] MD Urology PGY2 02/12/2023 7:51 AM -Page telephone claims representative resident with questions or concernsFranklin Memorial Hospital 02-11-2023 NoteMultiple deeper levels were evaluated. Limited cellularity and crush artifact precludes further evaluation.Franklin Memorial HospitalComment on above:Order Comment: Specimen Type: TISSUE SPECIMENOrdering Facility: [facility] Address: [address] [place] [address] Performed By: #### S ####[facility] LABORATORYCLIA [id number] [place], [place] [address] [place] [address] OF [id number] NoteHNO ID: [id number] Author: Mayra Cordova APRN.PHARMACY BENEFIT MANAGER Service: Anesthesiology Author Type: Nurse Woods Superintendent Type: Anesthesia Procedure Notes Filed: 02/11/2023 3:04 PM Note Text: ANESTHESIOLOGY PROCEDURE NOTE Airway General Information Procedure Start Time/Medication Administration: 02/11/2023 2:54 PM Patient location during procedure: OR Timeout Performed Pre-procedure: timeout performed Consent Obtained: Yes Patient identity confirmed: arm band Staffing PHARMACY BENEFIT MANAGER: Mayra Cordova APRN.PHARMACY BENEFIT MANAGER Performed by: ULI Indications and Patient Condition Indications for airway management: anesthesia and airway protection Preoxygenated: yes anesthesia circuit Patient position: sniffing Method: asleep Final Airway Details Final airway type: supraglottic airway Number of attempts at approach: 1 Final Supraglottic Airway: i-gel Size 5 Seal Adequate: yes Airway not difficult SIGNATURE: Mayra Cordova APRN.CRNA PATIENT NAME: Barbara Milan DATE: February 11, 2023 TIME: 3:03 PM CSN: [id number] Memorial Hospital09-08-2023 NoteHNO ID: [id number] Author: María Elena Bauer RN Service: Care Management Author Type: Registered Nurse Type: Care Mgt Progress Note Filed: 02/11/2023 10:51 AM Note Text: CARE MANAGEMENT PROGRESS NOTE SERVICE DATE: 02/11/2023 SERVICE TIME: 10:50 AM LOS: 3 days Post-Acute Discharge Planning Patient Goal(s): General wellness, Be able to go home, Better mobility, Less pain [place] of Choice Explained: [place] of Choice Given: Yes (prevously discussed with [...] home with [facility]. [facility] order uploaded to them. Patient will have transport from either family or a friend as his does not drive. SIGNATURE: María Elena Bauer RN PATIENT NAME: Barbara Milan DATE: February 11, 2023 TIME: 10:50 AM PAGER/CONTACT #: [phone] Memorial Hospital 02-11-2023 NoteHNO ID: [id number] Author: Mina Novoa MD Service: Urology Author [...] Intake/Output Summary (Last 24 hours) at 02/11/2023 4012 Last data filed at 02/11/2023 0310 Gross per 24 hour Intake 5000 ml Output 4250 ml Net 750 ml Physical Exam: General: Neck: Resp: Abdomen: No acute distress Supple Normal effort Soft, nontender, nondistended. : 22F 3-way simplastic catheter draining light red urine. No flank tenderness bilaterally. Labs and Imaging Studies LABS: BMP: Recent Labs 02/11/237 02/10/23 0514 02/09/23 0230 NA 133* 134* 134* K 3.9 4.0 4.0 CHLOR 103 104 103 CO2 21* 21* 20* BUN 22 20 16 CREAT 1.30* 1.23* 1.17 GLUC 108* 112* 126* CBC: Recent Labs 02/11/2331602/10/23 0514 02/09/23 0230 WBC 7.34 8.99 9.87 HB 9.3* 9.7* 10.6* HCT 27.3* 28.8* 31.5* PLT 211 203 211 Urinalysis: Specific [place], Ur Date Value Ref Range Status 02/23/2012 [...] in [place] if hematuria persists -Anticipate possible cystoscopy for evaluation of hematuria Shari Valera, MS-4 I agree with the medical student's assessment and plan. Appropriate changes made by myself. Patient independently seen and examined. Mina Novoa MD PGY-4, Urology February 11, 2023 Pager #[phone]09-07-2023 NoteHNO ID: [id number] Author: María Elena Bauer RN Service: Care Management Author Type: Registered Nurse Type: Care Mgt Progress Note Filed: 02/10/2023 1:53 PM Note Text: CARE MANAGEMENT PROGRESS NOTE SERVICE DATE: 02/10/2023 SERVICE TIME: 10:52 AM LOS: 2 days IMM Follow Up Copy Given: Yes Copy given to:: Patient Method: In Person [place] of Choice Given: No Reason Not Given: [...] contact his PCP to arrange services. Addendum: [place] of Choice Given: Yes Reason Not Given: Patient refused Level of Care Discussed: Home Care Financial Disclosure Provided: Yes Financial Disclosure Comments: [facility] connected Provider list within the patient's requested geographic area shared with the patient/family: No Patient worked with PT again and is now wanting C. He has no preference for agency. Referrals sent and Kate [facility] can accept. Patient is agreeable. SIGNATURE: María Elena Bauer RN PATIENT NAME: Barbara Milan DATE: February 10, 2023 TIME: 10:56 AM PAGER/CONTACT #: [phone] Memorial Hospital 02-10-2023 NoteHNO ID: [id number] Author: Mina Novoa MD Service: Urology Author [...] to follow-up with his local urologist in [place], Dr. Davies. May consider hyperbaric therapy in [...] Intake/Output Summary (Last 24 hours) at 02/10/2023 05 Last data filed at 02/10/2023 0517 Gross [...] GLUC 126* 101* 116* CBC: Recent Labs 02/09/2322902/08/23 02302/07/232000 WBC 9.87 8.28 7.55 HB 10.6* 11.6* 12.2* HCT 31.5* 34.0* 37.5* PLT 211 236 165 Urinalysis: Specific [place], Ur Date Value Ref Range Status 02/23/2012 [...] year old male with a history of [place] 9 prostate cancer s/p prostatectomy and radiation [...] -plan for outpatient hyperbaric oxygen therapy in [place] if hematuria persists -Anticipate possible void trial and discharge later today Shari Valera, MS-4 I agree with the medical student's assessment and plan. Appropriate changes made by myself. Patient independently seen and examined. Mina Novoa MD PGY-4, Urology February 10, 2023 Pager #[phone]09-06-2023 NoteHNO ID: [id number] Author: Drea Son RN Service: ? Author Type: Registered Nurse Type: Nursing Progress Note Filed: 02/09/2023 2:22 PM Note Text: CBI clamped after Alum bag per Dr Cortez Carrasquillo.[facility] 02-09-2023 NoteHNO ID: [id number] Author: María Elena Bauer RN Service: Care Management Author Type: Registered Nurse Type: Care Mgt Initial Assessment Filed: 02/09/2023 1:54 PM Note Text: CARE MANAGEMENT: ASSESSMENT AND DISCHARGE PLAN SERVICE DATE: February 09, 2023 SERVICE TIME: 11:43 AM PCP: Kelvin Han MD Primary Contact: Extended Emergency Contact Information Primary Emergency Contact: Yaz Milan Address: [address] [place] [address] Mobile Relation: Spouse Admission Status: Inpatient Insurance Provider: MEDICARE A AND B Discharge Planning requested by: Per Department Practice Potential Transition Plans Home Advance Directives Current Advance Directive: Health Care Power of Paint And Table Edger;Living Will In Chart: Yes Up To Date [...] General wellness, Be able to go home [place] of Choice Explained: [place] of Choice Given: No Reason Not Given: [...] 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 PT/OT evals are pending, but anticipate patient to return home at [place]. His son will transport as his doesn't drive. SIGNATURE: María Elena Bauer RN PATIENT NAME: Barbara Milan DATE: February 09, 2023 TIME: 1:50 PM CONTACT #: [phone] Memorial Hospital09-06-2023 Note HNO ID: [id number] Author: Drea Son RN Service: ? Author Type: Registered Nurse Type: Nursing Progress Note Filed: 02/09/2023 7:35 AM Note Text: Urology irrigated per patient.[facility]09-06-2023 NoteHNO ID: [id number] Author: Mina Novoa MD Service: Urology Author [...] per 24 hour Intake 2410 ml Output 11978 ml Net -8490 ml Physical Exam: General: [...] Value 02/09/2023 211 12/16/2015 260 Urinalysis: Specific [place], Ur Date Value Ref Range Status 02/23/2012 [...] MD PGY-4, Urology February 09, 2023 Pager #[phone]23 NoteHNO ID: [id number] Author: Jose Mcneil MD Service: Urology Author [...] 34.0* 37.5* PLT 236 165 Urinalysis: Specific [place], Ur Date Value Ref Range Status 02/23/2012 [...] Culture: No results found for: URCUL RADIOLOGY: [facility] CT NON-RADIOLOGY -NBNR [facility] - CT Images - Obtained Outside of Imaging [place] Assessment/Plan ASSESSMENT: 77 year old male with gross hematuria. 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 Known to private practice urologist in [place] I saw and evaluated the patient. Discussed with the resident and agree with resident's findings and plan as documented in the resident's note. Jose Mcneil MD See consult [facility]09-04-2023 Discharge summary Author Neo Alcaraz [facility] February 07, 2023 4:14pm Note Date/Time February 07, 2023 11:45am [facility] Medical Records Department [address] [place] [address] Emergency Department Summary 02/07/23 MR#: [id number] Acct: [id number] Name: BARBARA MILAN MONI Rep #:[id number] [...] did have biopsies performed by Dr. Gilliland. [facility] Medical History Blood in urine Prostate cancer [...] is onhis way out of town to [facility]. He states that he cannot keep him in the hospital because he is not going to be here. The patient has a follow-up appointment on Tuesday. He is to see the urology office. At this point the patient states that he wants to try to be transferred to [facility] and I will make this call however, [...] 80.6 H Lymph % (Auto) 7.2 L [place] % (Auto) 8.9 Eos % (Auto) 2.3 [...] your Primary Care Provider. Call [facility] ([phone]) or report to the closest Emergency Room. Call 911 if necessary. 02/07/23 1614 <Electronically signed by Neo Alcaraz DO> Cosigner Signature (if applicable): CC: Dr. Eduardo Han MD ~ Signed [facility] Work Phone: 1(245) 425-452301-31-2012 History of Past illness Narrative* Problem Noted Date Diagnosed Date Resolved Date BPH (benign prostatic hyperplasia) 07/06/2011 11/24/2011 Hypertrophy of prostate with urinary obstruction and other lower urinary tract symptoms (LUTS) 05/25/2007 11/24/2011 Elevated prostate specific antigen (PSA) 05/09/2006 08/10/2011 documented as of this encounter (statuses as of 02/18/2023) [facility] Chuy Hightower [facility] February 21, 2023 9:53am Note Date/Time February 21, 2023 9:53am [facility] Medical Records Department [address] [place] [address] Counseling Note - Pharmacy 02/21/23951 MR#: [id number] Acct: [id number] Name: BARBARA MILAN Rep #:[id number] : 1945 77 From: Chuy Hightower PCP: Dr. Eduardo Han MD Status: ADM IN Y Location: [facility] [id number] Pharmacy [facility] Pharmacy Service has performed discharge medication reconciliation [...] signed by Chuy nelson> Date _ Chuy Cedeno Signature (if applicable): Date CC: ~ Signed [facility] Work Phone: Consult note Author Zhao Gilliland [facility] May 11th, 2024 4:50am Note Date/Time October 15, 2023 4:50a m [facility] Medical Records Department [address] [place] [address] Consultation - Urology 10/15/23 0448 MR#: [id number] Acct: [id number] Name: BARBARA MILAN MONI Rep #:[id number] [...] a cystoscopy dilation of bladder neck contracture. [facility] Medical History Blood in urine Prostate cancer [...] applicable): CC: Dr. Kelvin Han MD~ Signed [facility] Work Phone: Consult note Author Neida Parra [facility] Note Date/Time August 20, 2024 2:4 6pm [facility] Medical Records Department [address] [place] [address] Counseling Note - Pharmacy 08/20/24 1445 MR#: [id number] Acct: [id number] Name: BARBARA MILAN MONI Rep #:[id number] : 1945 78 From: Neida Parra PCP: Dr. Kelvin Han MD Status :ADM IN Y Location: [facility] [id number] Pharmacy [facility] Pharmacy Service has performed discharge medication reconciliation [...] Signature (if applicable): Date CC: ~ Signed [facility] Work Phone: Evaluation noteNo assessment information available [facility] Work Phone: Evaluation note* Diagnosis Onset Date Resolution Status Abdominal pain acute Hematuria acute [facility] Work Phone: Evaluation note* Diagnosis Onset Date Resolution Status Abdominal pain acute Hematuria acute Prostate cancer acute [facility] Work Phone: Evaluation note* Diagnosis Onset Date Resolution Status Abdominal pain acute Hematuria acute Prostate cancer acute Complication, blocked Worthy catheter acute Hematuria acute Prostate cancer acute [facility] Work Phone: Evaluation note* Diagnosis Radiation cystitis- Primary Irradiation cystitis Prostate cancer (HCC) Malignant neoplasm of prostate 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 ZUHAIR (stress urinary incontinence), male Stress incontinence, male [facility]* Diagnosis Screening for genitourinary condition Screening for other and unspecified genitourinary condition documented [facility]* Diagnosis Radiation cystitis- Primary Irradiation cystitis Prostate cancer (HCC) Malignant neoplasm of prostate 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 ZUHAIR (stress urinary incontinence), male Stress incontinence, male documented [facility]* Diagnosis HTN (hypertension)- Primary Unspecified essential hypertension Itching Unspecified pruritic disorder BENIGN HYPERTENSION Essential hypertension, benign Radiation cystitis- Primary Irradiation cystitis Prostate cancer (HCC) Malignant neoplasm of prostate 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 ZUHAIR (stress urinary incontinence), male Stress incontinence, male documented [facility]* Diagnosis HTN (hypertension)- Primary Unspecified essential hypertension Itching Unspecified pruritic disorder BENIGN HYPERTENSION Essential hypertension, benign Stricture of bladder neck- Primary Other specified disorders of bladder Radiation cystitis Irradiation cystitis documented [facility] this encounter [facility]* Diagnosis HTN (hypertension)- Primary Unspecified essential [...] -Completed outpatient hyperbaric oxygen therapy 03/01 at [place] for hematuria/friable, bleeding mucosa over the bladder neck seen on cysto -Has had additional clot evacs and bladder neck incisions this past year at [place], had laser BNI November 13 2023 -Recent Admission early February at [facility] for gross hematuria- underwent cystoscopy on 02/11for [...] catheter in place documented in this encounter [facility]* Diagnosis HTN (hypertension)- Primary Unspecified essential hypertension Itching Unspecified pruritic disorder BENIGN HYPERTENSION Essential hypertension, benign Stricture of bladder neck- Primary Other specified disorders of bladder Prostate cancer (HCC)- Primary Malignant neoplasm of prostate Gross hematuria BENIGN HYPERTENSION Essential hypertension, benign Stricture of bladder neck Other specified disorders of bladder documented in this encounter [facility]* Diagnosis HTN (hypertension)- Primary Unspecified essential [...] Stress incontinence, male documented [facility] this [facility]* Diagnosis Onset Date Resolution Status Admit Date Acute abdominal pain in righ t flank acute August 14, 2024 11:36pm Acute hypotension acute August 042024 11:36pm Acute UTI acute August 14 11:36pm History of prostate cancer acute August 14, 2024 11:36pm Sepsis acute August 14 11:36pm [facility] Work Phone: History and physical note Author Zhao Gilliland [facility] February 14, 2023 4:34pm Note Date/Time February 14, 2023 4:[address] [facility] Medical Records Department [facility] [place] [address] History & Physical Exam 02/14/23 1633 MR#: [id number] Acct: [id number] Name: BARBARA MILAN MONI Rep #:[id number] : 1945 77 From: Zhao Gilliland MD PCP: Dr. Eduardo Han MD Status: ADM BRAEDEN [address]: [address] HPI - General General Date of Admission: 02/14/23 Date of Service: 02/14/23 Chief Complaint: Gross hematuria HPI Narrative BARBARA MILAN, is a 77 M who presents to the emergency room with gross hematuriahad a cystoscopy clot evacuation done at [facility] last week presents back to the emergency room with more bleeding and a taken back to surgery today hopefully find the bleeding and stop it with cauterization and three-way irrigation [facility] Medical History Blood in urine Prostate cancer [...] 83.6 H, Lymph % (Auto) 6.8 L, [place] % (Auto) 7.1, Eos % (Auto) 1.4, [...] Samy Natarajan MD at 14:21 EDT , 02/14/23 3127 <Electronically signed by Zhao Gilliland MD> Cosigner Signature (if applicable): CC: Dr. Eduardo Han MD; Dr. Zhao Gilliland MD~ Signed [facility] Work Phone: Hospital Discharge instructions Additional Instructions Implant Used?: [facility] Work Phone: Progress note Author Cameron Velasconinger [facility] Note Date/Time August 20, 2024 2:[address] [facility] Medical Records Department [address] [place] [address] Progress Note - Infect Disease 08/20/24 1429 MR#: [id number] Acct: [id number] Name: BARBARA MILAN MONI Rep #:[id number] : 1945 78 From: Cameron nelson MD PCP: Dr. Kelvin Han MD Status :ADM IN Location: [place] [address] Physical Exam Narrative Feeling better, no fever, [...] Cosigner Signature (if applicable): CC: ~ Signed [facility] Work Phone: Reason for referral (narrative)No reason for referral information [facility] Work Phone: Advance Directives No Advanced Directives Records Found Advance Directive Response Recorded Date/ Time Living Will Yes December 08, 2018 3 :18pm Power of Paint And Table Edger Yes December 08, 2018 3:18pm Advance Directive Response Recorded Date/ Time Living Will Yes December 08, 2018 2 :18pm Power of Paint And Table Edger Yes December 08, 2018 2:18pm Advance Directive Response Recorded Date/ Time Name of Medical Power of Paint And Table Edger recalled February 02, 2023 12:41pm Living Will Yes February 02 12:41pm Power of Paint And Table Edger Yes February 02, 2 023 12:41pm Advance Directive Response Recorded Date/ Time Name of Medical Power of Paint And Table Edger recalled February 02, 2023 12:41pm Name of Medical Power of Paint And Table Edger YAZ/ February 07, 2023 1:01pm Living Will Yes February 07, 2 023 1:01pm Power of Paint And Table Edger Yes February 07, 2023 1:01pm Advance Directive Response Recorded Date/ Time Name of Medical Power of Paint And Table Edger recalled February 02, 2023 12:41pm Living Will No February 14, 2023 10:21am Power of Paint And Table Edger No February 10:21am Name of Medical Power of Paint And Table Edger YAZ/ February 07, 2023 1:01pm Advance Directive Response Recorded Date/ Time Name of Medical Power of Paint And Table Edger recalled February 02, 2023 12:41pm Living Will No February 14, 2023 6:28pm Power of Paint And Table Edger No February 6:28pm Name of Medical Power of Paint And Table Edger YAZ/ February 07, 2023 1:01pm Documents on File Type Date Recorded 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 Advance Directive(s) 08/24/2011 9:03 PM Advance Directive Response Recorded Date/ Time Name of Medical Power of Paint And Table Edger recalled February 02, 2023 12:41pm Name of Medical Power of Paint And Table Edger YAZ/ February 07, 2023 1:01pm Name of Medical Power of Paint And Table Edger February 20, 2023 2:24am Living Will Yes February 20, 2023 2:24am Power of Paint And Table Edger Yes February 2:24am Advance Directive Response Recorded Date/ Time Name of Medical Power of Paint And Table Edger recalled February 02, 2023 12:41pm Name of Medical Power of Paint And Table Edger March 01, 2023 2:33pm Living Will Yes March 01, 2023 2:33pm Power of Paint And Table Edger Yes February 2:33pm Name of Medical Power of Paint And Table Edger YAZ/ February 07, 2023 1:01pm Name of Medical Power of Paint And Table Edger February 20, 2023 2:24am Advance Directive Response Recorded Date/ Time Living Will Yes March 01, 2023 1:33pm Power of Paint And Table Edger Yes February 1:33pm Advance Directive Response Recorded Date/ Time Name of Medical Power of Paint And Table Edger maría elena October 15, 2023 3:32am Living Will Yes October 15, 2023 3 :32am Power of Paint And Table Edger Yes October 15, 2023 3:32am Documents on File Type Date Recorded 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 Advance Directive(s) 08/24/2011 9:03 PM Advance Directive Response Recorded Date/ Time Living Will Yes June 08 7:07am Power of Paint And Table Edger Yes June 08 7:07am Name of Medical Power of Paint And Table Edger - María Elena June 08, 2024 7:07am Living Will Yes August 14, 2024 9:13pm Power of Paint And Table Edger Yes August 14 9:13pm Name of Medical Power of Paint And Table Edger María Elena Kayli August 14, 2024 9:13pm Advance Directive Response Recorded Date/ Time Living Will Yes June 08 7:07am Power of Paint And Table Edger Yes June 08 7:07am Name of Medical Power of Paint And Table Edger - María Elena June 08, 2024 7:07am Living Will Yes August 15, 2024 12:06am Power of Paint And Table Edger Yes August 15 12:06am Name of Medical Power of Paint And Table Edger María Elena Kayli August 15, 2024 12:06am Advance Directive Response Recorded Date/ Time Living Will Yes June 08 7:07am Do you have a Healthcare Power of Paint And Table Edger? Yes June 08, 2024 7:07am Name of Medical Power of Paint And Table Edger - María Elena June 08, 2024 7:07am Living Will Yes August 15, 2024 12:06am Do you have a Healthcare Power of Paint And Table Edger? Yes August 15, 2024 12:06am Name of Medical Power of Paint And Table Edger María Elena Kayli August 15, 2024 12:06am Advance Directive Response Recorded Date/ Time Living Will Yes August 15, 2024 12:06am Do you have a Healthcare Power of Paint And Table Edger? Yes August 15, 2024 12:06am Name of Medical Power of Paint And Table Edger María Elena Kayli August 15, 2024 12:06am Do you have a Healthcare Power of Paint And Table Edger? No October 16, 2024 1:50am Advance Directive Response Recorded Date/ Time Do you have a Healthcare Power of Paint And Table Edger? Yes November 13, 2024 11:16pm Living Will Yes August 15, 2024 12:06am Do you have a Healthcare Power of Paint And Table Edger? Yes August 15, 2024 12:06am Name of Medical Power of Paint And Table Edger María Elena Kayli August 15, 2024 12:06am Do you have a Healthcare Power of Paint And Table Edger? No October 16, 2024 1:50am Advance Directive Response Recorded Date/ Time Do you have a Healthcare Power of Paint And Table Edger? Yes November 13, 2024 11:16pm Living Will Yes August 15, 2024 12:06am Do you have a Healthcare Power of Paint And Table Edger? Yes August 15, 2024 12:06am Name of Medical Power of Paint And Table Edger María Elena Milan August 15, 2024 12:06am Do you have a Healthcare Power of Paint And Table Edger? No October 16, 2024 1:50am Do you have a Healthcare Power of Paint And Table Edger? No November 18, 2024 11:02pm Advance Directive Response Recorded Date/ Time Do you have a Healthcare Power of Paint And Table Edger? Yes November 13, 2024 11:16pm Do you have a Healthcare Power of Paint And Table Edger? No October 16, 2024 1:50am Do you have a Healthcare Power of Paint And Table Edger? No November 18, 2024 11:02pm Chief Complaint and Reason for Visit Chief [...] 36pm History of prostate cancer August 14 11:36pm Sepsis August 14, 2024 11: 36pm [...] Acute abdominal pain in right flank Denny 2024 11:36pm Acute hypotension August 14, 2024 11: 36pm Acute UTI August 14, 2024 11: 36pm CHRIS (acute kidney injury) August 14 11:36pm Bacteremia due to Gram-negative bacteria August 14, 2024 11:36pm Hematuria syndrome August 14, 2024 11: 36pm History of prostate cancer August 14 11:36pm History of prostatectomy August 14 11:36pm Lesion of bladder August 14, 2024 11: 36pm Overweight (BMI 25.0-29.9) August 14 11:36pm Sepsis August 14, 2024 11: 36pm Septic shock August 14, 2024 11: 36pm UTI (urinary tract infection ) due to urinary indwelling catheter August 14, 2024 11:36pm Chronic radiation cystitis March 11th, 2 025 11:36pm Chief Complaint Admit Date cathether [...] CHRIS (acute kidney injury) August 14 11:36pm Hematuria syndrome August 14, 2024 11: 36pm History of prostate cancer August 14 025 11:36pm History of prostatectomy August 14 11:36pm Lesion of bladder August 14, 2024 11: 36pm Overweight (BMI 25.0-29.9) August 14 11:36pm Sepsis August 14, 2024 11: 36pm [...] m gu November 13, 2024 8:27 pm Chief Complaint Admit Date SEPSIS, UTI, LEUKOPENIA & RIGHT FLANK PA [...] not draining October 16, 2024 1:50a m November 13, 2024 8:27 pm CATHETER PROBLEM November 18, 2024 10:2 4pm Chief Complaint Admit Date SEPSIS, UTI, LEUKOPENIA & RIGHT FLANK PA [...] m gu November 13, 2024 8:27 pm CATHETER PROBLEM November 18, 2024 10:2 4pm EORDER December 04, 2024 8:13a m Chief Complaint Admit Date EORDER AND PAPER ORDER September 18, 2024 8:14am worthy not draining October 16, 2024 1:50a m gu November 13, 2024 8:27 pm CATHETER PROBLEM November 18, 2024 10:2 4pm EORDER December 04, 2024 8:13a m LEFT ARM CUT January 07, 2025 1:5 5pm Summary Purpose Family History No Family History Records FoundNo Family History Records FoundNo Family History Records Found Reason for Referral Specialty Diagnoses / Procedures Referred By Ayleen t Referred To Contact Diagnoses Stricture of bladder neck Procedures REFER TO P[facility] / [facility] - PREOPERATIVE OPTIMIZATION OFFICE/OUTPATIENT [facility] 60 MINUTES Roberta Martin PA-C [id number] [place] [id number] Referral ID Status Reason Start Date Expiration Date Visits Requested Visits Authorized [id number] Authorized PCP Requested Referral 02/28/2024 02/27/2025 1 [...] Gilliland MD Admit Provider, Attending Provider Active Cashier Associate Relationship Specialty Start Date End Date Kelvin Han MD [address] [place] [address] PCP - General Family Medicine 08/30/18 Nayan Gonzalez MD, MD [address] [place] [address] Physician Radiation Oncology 10/09/15 Team Status: Inactive [...] Dr. Columba Decker MD Emergency Provider Active Cashier Associate Relationship Specialty Start Date End Date Kelvin Han MD [address] [place], [place] [id number] PCP - General Family Medicine 08/30/18 Nayan Gonzalez MD [address] [place], [place] [address] Physician Radiation Oncology 10/09/15 Cashier Associate Relationship Specialty Start Date End Date Kelvin Han MD [address] [place] [address] PCP - General Family Medicine 08/30/18 Nayan Gonzalez MD [address] [place] [address] Physician Radiation Oncology 10/09/15 Cashier Associate Relationship Specialty Start Date End Date Kelvin Han MD [address] [place] [address] PCP - General Family Medicine 08/30/18 Nayan Gonzalez MD [address] [place] [address] Physician Radiation Oncology 10/09/15 Cashier Associate Relationship Specialty Start Date End Date Kelvin Han MD [address] [place] [address] PCP - General Family Medicine 08/30/18 Nayan Gonzalez MD [address] [place] [address] Physician Radiation Oncology 10/09/15 Cashier Associate Relationship Specialty Start Date End Date Kelvin Han MD [address] [place] [address] PCP - General Family Medicine 08/30/18 Nayan Gonzalez MD [address] [place] [address] Physician Radiation Oncology 10/09/15 Cashier Associate Relationship Specialty Start Date End Date Kelvin Han MD [address] [place] [address] PCP - General Family Medicine 08/30/18 Nayan Gonzalez MD [address] [place] [address] Physician Radiation Oncology 10/09/15 Cashier Associate Relationship Specialty Start Date End Date Kelvin Han MD [address] [place] [address] PCP - General Family Medicine 08/30/18 Nayan Gonzalez MD [address] [place], [place] [address] Physician Radiation Oncology 10/09/15 Cashier Associate Relationship Specialty Start Date End Date Kelvin Han MD [address] [place] [address] PCP - General Family Medicine 08/30/18 Nayan Gonzalez MD [address] [place] [address] Physician Radiation Oncology 10/09/15 Cashier Associate Relationship Specialty Start Date End Date Kelvin Han MD [address] [place] [address] PCP - General Family Medicine 08/30/18 Nayan Gonzalez MD [address] [place] [address] Physician Radiation Oncology 10/09/15 Cashier Associate Relationship Specialty Start Date End Date Kelvin Han MD [address] [place] [address] PCP - General Family Medicine 08/30/18 Nayan Gonzalez MD [address] [place], [place] [address] Physician Radiation Oncology 10/09/15 Team Status: Active [...] tart: August 15, 2024 Dr. Rajinder Acosta , Admit Provider Active Start: August 15, 2024 Dr. Rajinder Acosta , Other Provider Active Start: August 15, 2024 [...] August 15, 2024 Dr. Darryn Underwood , Other Provider Active Start : August 15, [...] Star t: August 15, 2024 Dr. Bonnie Folod MD Other Provider Active Sta rt: August [...] St art: August 15, 2024 Dr. Audelia rIizarry MD Other Provider Active Start: August 15, 2024 Dr. Sobeida Thompson MD Other Provider Active St art: August 15, 2024 Dr. Holger Fernstrom , DO Other Provider Active Start: August 15, [...] Star t: August 16, 2024 Dr. Mina rTacy MD Other Provider Active Start: August 16, [...] Active S tart: August 18, 2024 Dr. Rajindre Acosta DO Admit Provider [...] Active S tart: August 20, 2024 Dr. Rajinder Acosta DO [...] November 13, 2024 End: November 14, 2024 Team Status: Inactive Member Role Status Dates Dr. Kelvin Han MD Primary Care Provider Acti ve Start: November 18, 2024 End: November 18, 2024 Dr. Jorge Alberto Love DO Emergency Provider Active Start: November 18, 2024 End: November 18, 2024 Team Status: Active Member Role/Relationship Status Dates Dr. Kelvin Han MD Primary Care Provider Acti ve Team Status: Inactive Member Role/Relationship Status Dates Dr. Kelvin Han MD Primary [...] August 20, 2024 Team Status: Active Member Role/Relationship Status Dates Dr. Kelvin Han MD Primary Care Provider Acti ve Start: August 15, 2024 Dr. Kishore Nicolas MD Emergency Provider Active S tart: August 15, 2024 Dr. Rajinder Acosta DO Admit Provider Active Start: August 15, 2024 Dr. Rajinder Acosta Other Provider Active Start: August 15, 2024 Dr. Juany Souza MD Attending Provider Active Start: August 15, 2024 Dr. Juany Souza MD Other Provider Active Star t: August 15, 2024 Dr. iMna Tracy MD Other Provider Active Start: August 15, 2024 Dr. Aston Mosley MD Other Provider Active Start: August 15, 2024 Dr. Balwinder Butler MD Other Provider Active Star t: August 15, 2024 Dr. Darryn Underwood , Other Provider Active Start : August 15, [...] August 15, 2024 Team Status: Active Member Role/Relationship Status Dates Dr. Kelvin Han MD Primary [...] August 15, 2024 Team Status: Active Member Role/Relationship Status Dates Dr. Kelvin Han MD Primary [...] t: August 15, 2024 Dr. Vicente Ordonez , Other Provider Active St art: August 15, 2024 Dr. Audelia Irizarry MD Other Provider Active Start: August 15, 2024 Dr. Sobeida Thompson MD Other Provider Active St art: August 15, 2024 Dr. Holger Marshall , Other Provider Active Start: August 15, 2024 Dr. Wilfredo Doran MD Other Provider Active Star t: August 15, 2024 Dr. Alcides Nieto MD Other Provider Active Sta rt: August 15, 2024 Dr. Zhao Gilliland MD Other Provider Active Start: August 15, 2024 Tiffanie Gorman NP-C Attending Provider Active S tart: August 15, 2024 Team Status: Active Member Role/Relationship Status Dates Dr. Kelvin Han MD Primary [...] August 16, 2024 Team Status: Active Member Role/Relationship Status Dates Dr. Kelvin Han MD Primary [...] Active Start: August 16, 2024 Dr. Sobeida Thopmson MD Other Provider Active St art: August 16, 2024 Dr. Holger Marshall DO Other Provider Active Start: August 16, 2024 Dr. Wilfredo Doran MD Other Provider Active Star t: August 16, 2024 Dr. Alcides Nieto MD Other Provider Active Sta rt: August 16, 2024 Dr. Zhao Gilliland MD Other Provider Active Start: August 16, 2024 Team Status: Active Member Role/Relationship Status Dates Dr. Kelvin Han MD Primary [...] August 17, 2024 Team Status: Active Member Role/Relationship Status Dates Dr. Kelvin Han MD Primary [...] August 17, 2024 Team Status: Active Member Role/Relationship Status Dates Dr. Kelvin Han MD Primary [...] August 18, 2024 Team Status: Active Member Role/Relationship Status Dates Dr. Kelvin Han MD Primary [...] August 19, 2024 Team Status: Active Member Role/Relationship Status Dates Dr. Kelvin Han MD Primary Care Provider Acti ve Start: August 20, 2024 Dr. Kishore Nicolas MD Emergency Provider Active S tart: August 20, 2024 Dr. Rajinder Acosta DO [...] Star t: August 20, 2024 Team Status: Inactive Member Role/Relationship Status Dates Dr. Kelvin Han MD Primary [...] September 18, 2024 Team Status: Inactive Member Role/Relationship Status Dates Dr. Kelvin Han MD Primary Care Provider Acti ve Start: October 16, 2024 End: October 16, 2024 Dr. Reuben Kirkland DO Attending Provider Active Start: October 16, 2024 End: October 16, 2024 Dr. Reuben Kirkland DO Emergency Provider Active Start: October 16, 2024 End: October 16, 2024 Team Status: Inactive Member Role/Relationship Status Dates Dr. Kelvin Han MD Primary Care Provider Acti ve Start: November 13, 2024 End: November 14, 2024 Dr. Jorge Alberto Love DO Attending Provider Active Start: November 13, 2024 End: November 14, 2024 Dr. Jorge Alberto Love DO Emergency Provider Active Start: November 13, 2024 End: November 14, 2024 Team Status: Inactive Member Role/Relationship Status Dates Dr. Kelvin Han MD Primary Care Provider Acti ve Start: November 18, 2024 End: November 18, 2024 Dr. Jorge Alberto Love DO Attending Provider Active Start: November 18, 2024 End: November 18, 2024 Dr. Jorge Alberto Love DO Emergency Provider Active Start: November 18, 2024 End: November 18, 2024 Team Status: Inactive Member Role/Relationship Status Dates Dr. Kelvin Han MD Primary Care Provider Acti ve Start: December 04, 2024 End: December 04, 2024 Dr. Kelvin Hna MD Attending Provider Active Start: December 04, 2024 End: December 04, 2024 Dr. Kelvin Han MD Referring Provider Active Start: December 04, 2024 End: December 04, 2024 Team Status: Inactive Member Role/Relationship Status Dates Dr. Kelvin aHn MD Primary Care Provider Acti ve Start: September 18, 2024 End: September 18, 2024 Dr. Kelvin Han MD Attending Provider Active Start: September 18, 2024 End: September 18, 2024 Dr. Kelvin Han MD Referring Provider Active Start: September 18, 2024 End: September 18, 2024 Sherlyn Crenshaw Other Provider Active Start: 2024 End: September 18, 2024 Team Status: Inactive Member Role/Relationship Status Dates Dr. Kelvin Han MD Primary Care Provider Acti ve Start: October 16, 2024 End: October 16, 2024 Dr. Reuben Kirkland DO Attending Provider Active Start: October 16, 2024 End: October 16, 2024 Dr. Reuben Kirkland DO Emergency Provider Active Start: October 16, 2024 End: October 16, 2024 Team Status: Inactive Member Role/Relationship Status Dates Dr. Kelvin Han MD Primary Care Provider Acti ve Start: November 13, 2024 End: November 14, 2024 Dr. Jorge Alberto Love DO Attending Provider Active Start: November 13, 2024 End: November 14, 2024 Dr. Jorge Alberto Love DO Emergency Provider Active Start: November 13, 2024 End: November 14, 2024 Team Status: Inactive Member Role/Relationship Status Dates Dr. Kelvin Han MD Primary Care Provider Acti ve Start: November 18, 2024 End: November 18, 2024 Dr. Jorge Alberto Love DO Attending Provider Active Start: November 18, 2024 End: November 18, 2024 Dr. Jorge Alberto Love DO Emergency Provider Active Start: November 18, 2024 End: November 18, 2024 Team Status: Inactive Member Role/Relationship Status Dates Dr. Kelvin Han MD Primary Care Provider Acti ve Start: December 04, 2024 End: December 04, 2024 Dr. Kelvin Han MD Attending Provider Active Start: December 04, 2024 End: December 04, 2024 Dr. Kelvin Han MD Referring Provider Active Start: December 04, 2024 End: December 04, 2024 Team Status: Inactive Member Role/Relationship Status Dates Dr. Kelvin Han MD Primary Care Provider Acti ve Start: January 07, 2025 End: January 07, 2025 Dr. Kelvin Han MD Referring Provider Active Start: January 07, 2025 End: January 07, 2025 Maynor MARI, PA Attending Provider Active Start: January 07, 2025 End: January 07, 2025 Source Comments (unrecognize d section and content) In the event this informatio n is protected by the Federal Confidentiality of Alcohol and Drug Abuse Patient Records regulations: The Federal rules restrict any use of the information to criminally investigate or prosecute any alcohol or drug abuse patient.[facility] the event this information is protected by the Federal Confidentiality of Alcohol and Drug Abuse Patient Records regulations: The Federal rules restrict any use of the information to criminally investigate or prosecute any alcohol or drug abuse patient.[facility] the event this information is protected by the Federal Confidentiality of Alcohol and Drug Abuse Patient Records regulations: The Federal rules restrict any use of the information to criminally investigate or prosecute any alcohol or drug abuse patient.[facility] the event this information is protected by the Federal Confidentiality of Alcohol and Drug Abuse Patient Records regulations: The Federal rules restrict any use of the information to criminally investigate or prosecute any alcohol or drug abuse patient.[facility] the event this information is protected by the Federal Confidentiality of Alcohol and Drug Abuse Patient Records regulations: The Federal rules restrict any use of the information to criminally investigate or prosecute any alcohol or drug abuse patient.[facility] the event this information is protected by the Federal Confidentiality of Alcohol and Drug Abuse Patient Records regulations: The Federal rules restrict any use of the information to criminally investigate or prosecute any alcohol or drug abuse patient.[facility] the event this information is protected by the Federal Confidentiality of Alcohol and Drug Abuse Patient Records regulations: The Federal rules restrict any use of the information to criminally investigate or prosecute any alcohol or drug abuse patient.[facility] the event this information is protected by the Federal Confidentiality of Alcohol and Drug Abuse Patient Records regulations: The Federal rules restrict any use of the information to criminally investigate or prosecute any alcohol or drug abuse patient.[facility] the event this information is protected by the Federal Confidentiality of Alcohol and Drug Abuse Patient Records regulations: The Federal rules restrict any use of the information to criminally investigate or prosecute any alcohol or drug abuse patient.[facility] the event this information is protected by the Federal Confidentiality of Alcohol and Drug Abuse Patient Records regulations: The Federal rules restrict any use of the information to criminally investigate or prosecute any alcohol or drug abuse patient.[facility] the event this information is protected by the Federal Confidentiality of Alcohol and Drug Abuse Patient Records regulations: The Federal rules restrict any use of the information to criminally investigate or prosecute any alcohol or drug abuse patient.[facility] the event this information is protected by the Federal Confidentiality of Alcohol and Drug Abuse Patient Records regulations: The Federal rules restrict any use of the information to criminally investigate or prosecute any alcohol or drug abuse patient.[facility] Reason for Visit (unrecogniz ed section and content) Reason Comments Follow Up Phone Call Post discharge phon e call attempt made. No answer Reason Comments Cystoscopy-1 Reason Comments Returning Patient's Call Reason Comments ISC Teaching (unrecognized sect ion and content) No Status Records FoundNo Status Records FoundNo Status Records Found INFORMATION SOURCE (unrecogn ized section and content) DATE CREATED AUTHOR 02/21/2023 [facility] DATE CREATED AUTHOR AUTHOR'S ORGANIZ ATION 05/18/2024 [facility] DATE CREATED AUTHOR AUTHOR'S ORGANIZ ATION 02/24/2025 [facility] FOR RECORDS PERTAINING TO PATIENTS WHO ARE [...] ON THE PRIMARY CLINICAL RECORDS. [facility]. provides no warranty or guarantee of the accuracy or completeness of information in this document.
[2025-02-24] MEDS: 0.9% Normal Saline (1000mL) 1,000 ML 1000 ML IV (20:31)
[2025-02-24 21:04] LABS: AST(SGOT) 26 U/L (<=37); Alanine Aminotransfer ALT/SGPT 13 U/L (<=46); Albumin, Serum 3.2 g/dL (3.4-4.8); Alkaline Phosphatase 51 U/L (40-129); Anion Gap 11 (5-15); BUN 20 mg/dL (4-19); BUN/Creat Ratio 14.9 RATIO (10-20); Calcium,Total 8.0 mg/dL (7.6-11.0); Carbon Dioxide 18.1 mmol/L (21.0-32.0); Chloride 103 mmol/L (98-108); Estimated Creatinine Clearance 51.16 ml/min (50-250); Globulin 3.0 g/dL (2.2-4.2); Glucose 151 mg/dL (70-99); Potassium 4.1 mmol/L (3.3-5.1)
[2025-02-24 21:10] LABS: Hematocrit 31.1 % (40-54); Hemoglobin 10.9 g/dL (13.0-16.5); Immature Granulocytes Count 0.040 X10^3/uL (0.0-0.0); Mean Corp Hgb Conc 35.0 g/dL (32-36); Mean Corpuscular Volume 86.1 fL (80-94); Mean Platelet Vol. 11.0 fl (6.2-12.0); NRBC Flagged by Analyzer 0 % (0-5); POSITIVE DIFFERENTIAL YES; Platelet Count 138 K/mm3 (150-450); RBC Distribution Width CV 13.8 % (11.6-14.6); RBC Distribution Width SD 43.8 fl (35.1-43.9); Red Blood Count 3.61 M/mm3 (4.6-6.2); White Blood Count 4.9 K/mm3 (4.4-11.0)
--- NOTE | 2025-02-24 21:46 | EX.ED.DYSGE1 ---
HPI History of Present Illness Chief Complaint: Complaint Detail of Chief Complaint: Urinary tract infection, presents with subjective fever and shaking chills Informant: patient and spouse/S.O. Onset/Context/Timing Onset: Yesterday (Patient seen yesterday and diagnosed with urinary tract infection. He was prescribed ciprofloxacin. He took his first dose of ciprofloxacin this morning.) Context: Sudden Onset Timing: Intermittent Quality: Subjective fever with shaking chills Location: , suprapubic catheter x 2 years. Current Severity: Mild Maximum Severity: Moderate Worsened by: Concern for sepsis Relieved by: Nothing Associated Symptoms Associated Symptoms: Decreased intake Narrative Narrative: Patient is a 79-year-old male. He has a history of hypertension, bladder cancer with indwelling suprapubic catheter. Also reported yesterday mild upper respiratory symptoms and had viral swabs that were negative. Also had a chest x-ray that was negative. Yesterday his blood pressure was 135/75. He also had a high reading of 160/84. Patient appears ill. He is slightly flushed. He presently denies headache. He denies ocular, visual auditory symptoms. He denies vomiting or diarrhea. He has a suprapubic catheter in because he had bladder cancer and was having recurrent obstruction and bleeding. He is seen by Dr. Gilliland. Prior similar symptoms: Yes Recent Illness/Hospitalization: Yes [facility] Medical History Skin tear of left forearm without complication Hearing loss, left Hearing loss, right Anxiety Depression Chronic indwelling Worthy catheter TIA (transient ischemic attack) Chronic radiation cystitis Worthy catheter in place Wears glasses Cancer Arthritis Non-smoker History of pain when walking History of edema Hypertension Prostate cancer Blood in urine Home Medications ?Medication ?Instructions ?Recorded ?Last Taken ?Type amlodipine 10 mg tablet 10 mg PO DAILY BLOOD PRESSURE 12/08/18 01/13/24 History lisinopril 40 mg tablet 40 mg PO DAILY BLOOD PRESSURE 12/08/18 01/13/24 History terazosin 5 mg capsule 5 mg PO QPM BLOOD PRESSURE 12/08/18 01/13/24 History multivit,Ca,min-iron 8 mg-folic 1 tab PO DAILY SUPPLEMENT 11/04/23 01/13/24 History acid 200 mcg-lycopene 600 mcg tablet (A Thru Z Men's Ultimate) L.acidophil,salivari-Bifido 1 cap PO 2XD #0 caps 08/20/24 Unknown Rx bifidum-Strep thermoph 175 mg capsule ciprofloxacin HCl 500 mg tablet 500 mg PO BID 10 days #20 tabs 02/24/25 Unknown Rx (Cipro) Allergy/AdvReac Type Severity Reaction Status Date / Time losartan Allergy Mild Rash Verified 02/24/25 19:55 Sulfa (Sulfonamide Allergy Hives Verified 02/24/25 19:55 Antibiotics) atenolol AdvReac Mild WEAKNESS Verified 02/24/25 19:55 hydrochlorothiazide AdvReac Mild UNKNOWN Verified 02/24/25 19:55 indomethacin (From Indocin) AdvReac Mild GI upset Verified 02/24/25 19:55 Family History no significant family his Surgical History History of left knee replacement Hx of radical prostatectomy Hx of cystoscopy Hx of colonoscopy Social History household members: spouse housing: house Smoking Status: Never smoker ROS ROS ED Constitutional Constitutional ED: Reports chills, fever(s) and subjective; Denies sweats Eyes Eyes: Denies blurry vision or change in vision ENT ENT ED: Denies ear pain or sore throat Cardiovascular Cardiovascular: Denies chest pain or palpitations Respiratory/Chest Respiratory/Chest: Reports cough; Denies dyspnea, dyspnea on exertion or sputum Gastrointestinal Gastrointestinal: Reports nausea; Denies abdominal pain, diarrhea or vomiting Genitourinary Genitourinary ED: Reports other Details: Suprapubic catheter. Musculoskeletal Musculoskeletal: Reports myalgias; Denies arthralgias or back pain Integumentary Denies rash Neurologic Neurologic: Reports weakness; Denies headache(s) or paresthesias Hematologic/Lymphatic Hematologic/Lymphatic: Reports systems reviewed and no addt'l complaints, except as documented EXAM Physical Exam Const Vital Signs: 02/24/25 19:54 02/24/25 19:59 02/24/25 20:01 Temperature 98.8 F 98.8 F Temperature Source Oral Oral Pulse Rate 119 H 108 H Respiratory Rate 19 H 25 H Respiratory Effort Normal Respiratory Pattern Tachypnea Blood Pressure 93/70 121/66 H Blood Pressure Mean 77 84 Pulse Ox 99 96 Oxygen Delivery Method Room Air Room Air 02/24/25 20:55 02/24/25 21:00 02/24/25 21:59 Temperature 98 F 98 F 98 F Temperature Source Oral Oral Oral Pulse Rate 83 84 76 Respiratory Rate 25 H 22 H 25 H Respiratory Effort Respiratory Pattern Blood Pressure 97/64 97/64 96/56 L Blood Pressure Mean 75 75 69 Pulse Ox 94 94 94 Oxygen Delivery Method Room Air Room Air Room Air 02/24/25 22:12 Temperature 98 F Temperature Source Pulse Rate 76 Respiratory Rate 21 H Respiratory Effort Respiratory Pattern Blood Pressure 96/56 L Blood Pressure Mean 69 Pulse Ox 93 Oxygen Delivery Method Positive well nourished and well developed Constitutional Narrative: Patient's blood pressure is low. His first blood pressure was 93/70 suspect this is low because he was sitting upright when he was initially taken and probably represents orthostatic vital signs. He was supine it was 121/66. He is supine presently and his pressure is dropped approximately 25 mmHg. His normal blood pressure is elevated in the 130-140 range. General Appearance ED: well developed; Negative for cyanotic, diaphoretic or pallor HEENT Reports moist mucous membranes Negative for trauma Eyes PERRL and EOMs intact bilaterally General Eye ED: Negative for pale conjunctiva or scleral icterus Neck no lymphadenopathy, supple and no JVD Chest Wall inspection of chest normal and palpation of chest normal Resp normal respiratory effort and clear to auscultation bilaterally Cardio regular rhythm, S1 normal heart sound, S2 normal heart sound and no murmurs Rate: tachycardic GI normal to inspection, nondistended, normoactive bowel sounds, non-tender, non-distended and no masses; Negative for hepatosplenomegaly Back/Spine no CVA tenderness Extremity normal to inspection Neuro oriented x3, CN's II-XII intact bilaterally and no sensory deficits noted Sensorium / Orientation: alert Psych mental status grossly normal Skin no rashes or lesions noted, no wounds and skin turgor normal General Skin Exam: Negative for elasticity normal, jaundice or pallor MDM MDM MDM Narrative Medical decision making narrative: Patient received Rocephin yesterday and discharged with ciprofloxacin. Since he has a chronic indwelling Worthy need to treat with meropenem probably. Will review prior records. Reviewed Dr. Suh's note from yesterday. Will repeat blood work. Since he has a drop in his blood pressure he received a 30 cc/kg bolus of normal saline. Blood cultures were ordered and he was treated with meropenem per the sepsis treatment order set. Lab Data Attestation: I reviewed the patient's lab results. Lab results narrative: White count is 4.9. H&H is 10.9 and 31.1 with normal indices. Electrolyte panel reveals a low CO2 of 18. Anion gap is normal. Lactate is normal. Glucose is elevated 151. Yesterday his white count was 3.9. His H&H is slightly lower today. CO2 was low however today. BUN is elevated. Creatinine is slightly increased from baseline. Labs: Laboratory Results - last 24 hr 02/24/25 20:31 WBC 4.9 RBC 3.61 L Hgb 10.9 L Hct 31.1 L MCV 86.1 MCH 30.2 MCHC 35.0 RDW Std Deviation 43.8 RDW Coeff of Jerry 13.8 Plt Count 138 L MPV 11.0 Immature Gran % (Auto) 0.800 Neut % (Auto) 83.7 H Lymph % (Auto) 4.5 L Garza % (Auto) 5.9 Eos % (Auto) 4.9 Baso % (Auto) 0.2 Absolute Neuts (auto) 4.1 Absolute Lymphs (auto) 0.22 L Nucleated RBC % 0 Sodium 132 L Potassium 4.1 Chloride 103 Carbon Dioxide 18.1 L Anion Gap 11 BUN 20 H Creatinine 1.34 H Estim Creat Clear Calc 51.16 Est GFR (MDRD) Non-Af 55 L BUN/Creatinine Ratio 14.9 Glucose 151 H Lactic Acid 1.6 Calcium 8.0 Total Bilirubin 0.51 AST 26 ALT 13 Alkaline Phosphatase 51 Total Protein 6.1 Albumin 3.2 L Globulin 3.0 Albumin/Globulin Ratio 1.1 Management Discussion w/another healthcare provider: Hospitalist (Case discussed with hospitalist. Full admit PCU) Treatment and Re-Evaluation :: Imaging was not repeated. Will have secretary book keeper contact hospitalist for admission. Critical Care Time Critical Care Time: Yes Critical care time (excluding procedures): 30-74 minutes (30), Including time spent: (History, physical, documentation, review of prior records and cultures, you yesterday's note and treatment plan.), Discussing w/Patient &/or Family/[employer] (Informed patient need for admission because of drop in pressure.), Discussing w/Consultants and Arranging Admission or Transfer Discharge Plan Dx/Rx/DC Orders Clinical Impression: Catheter-associated urinary tract infection, Acute hypotension, Chronic renal insufficiency, Failure of outpatient treatment, Chronic radiation cystitis Disposition Disposition: [facility]
[2025-02-24] MEDS: Cefepime HCl 2 GM in 0.9% Normal Saline (100mL MB+) 100 ML IV (22:20)
[2025-02-24] MEDS: 0.9% Normal Saline (1000mL) 1,000 ML 999 ML IV ×2 (22:21→23:48)
--- NOTE | 2025-02-24 22:23 | HP.PCM.HOS_ITS ---
HPI - General General Date of Admission: 02/24/25 Date of Service: 02/24/25 Chief Complaint: Recent UTI Dx, worsening F/chills, only 1 dose abx therapy. HPI Narrative The patient is a 79 y/o M w/ PMHx: Chronic Kidney Disease Stage II versus stage III unclear subtype, uncertain as vacillates, Chronic normocytic anemia, Hx Prostate CA s/p prostatectomy w/ obstructive pathology with chronic indwelling Worthy catheter, Hx TIA, HTN, Anxiety and Depression who presents to the [facility] ED on 02/24/2025 secondary recent urinary tract infection diagnosis seen the day prior prescribed ciprofloxacin with first dose on day of current presentation however patient continued to have persistent symptoms including onset of fever and chills with a chronic suprapubic catheter in place for the last 2 years secondary to underlying bladder cancer and interventions following in addition to recent onset over the last 24 hours of mild URI type symptoms however swabs were negative and a chest x-ray had been unremarkable but given worsening symptoms prompted return for ED reevaluation. Patient notes URI symptoms he has had include mild cough, nausea without emesis and body aches/muscle aches as well as generalized weakness in addition to reported fevers and chills. Workup in the ED included T98.8, heart 119, BP 93/70, respiratory rate 19, 99% on room air with most recent repeat vitals T98, heart rate 76, BP 96/56, respiratory rate 21, 93% on room air, CBC with WC 4.9, hemoglobin 10.9, MCV 86.1, platelet 138 with lymphopenia, CMP with sodium 132, carbon oxide 18.1, BUN/Cr 20/1.34, GFR 55, glucose 151, hepatic profile not marked appearing, lactic acid 1.6. In the ED patient administered 2 L normal saline in addition to cefepime 2 g IV x 1. Most recent noted urine culture 11/13/2024 with procidentia and cornybacterium. 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 Wears glasses Arthritis Non-smoker Home Medications ?Medication ?Instructions ?Recorded ?Last Taken ?Type amlodipine 10 mg tablet 10 mg PO DAILY BLOOD PRESSUR E 12/08/18 01/13/24 History lisinopril 40 mg tablet 40 mg PO DAILY BLOOD PRESSUR E 12/08/18 01/13/24 History terazosin 5 mg capsule 5 mg PO QPM BLOOD PRESSURE 0 12/08/18 01/13/24 History multivit,Ca,min-iron 8 mg-folic 1 tab PO DAILY SUPPLEM ENT 11/04/23 01/13/24 History acid 200 mcg-lycopene 600 mcg tablet (A Thru Z Men's Ultimate) L.acidophil,salivari-Bifido 1 cap PO 2XD #0 caps 08/20 Unknown Rx bifidum-Strep thermoph 175 mg capsule ciprofloxacin HCl 500 mg tablet 500 mg PO BID 10 days #20 tabs 02/24/25 Unknown Rx (Cipro) Allergy/AdvReac Type Severity Reaction Status Date / Time losartan Allergy Mild Rash Verified 02/24/25 19:55 Sulfa (Sulfonamide Allergy Hives Verified 02/24/25 19:55 Antibiotics) atenolol AdvReac Mild WEAKNESS Verified 02/24/25 19:55 hydrochlorothiazide AdvReac Mild UNKNOWN Verified 02/24/25 19:55 indomethacin (From Indocin) AdvReac Mild GI upset Verified 02/24/25 19:55 Family History (Updated 02/24/25 @ 23:[address] Feli Madden MD) Mother , secondary to complications with c-difficile colitis. No medical history per son. No problems noted. Father , in MVA. No medical history per son. No problems noted. Family History no significant family his Surgical History History of left knee replacement Hx of radical prostatectomy Hx of cystoscopy Hx of colonoscopy Social History (Updated 02/24/25 @ 23:[address] Feli Madden MD) household members: spouse housing: house Smoking Status: Never smoker alcohol intake: never substance use type: does not use ROS ROS Narrative Admission Review of Systems: CONSTITUTIONAL: No weight loss, + fever, chills, weakness or fatigue. HEENT: + Rhinorrhea, congestion. Eyes: No visual loss, blurred vision, double vision or yellow sclerae. Ears, Nose, Throat: No hearing loss, sneezing, sore throat. SKIN: No rash or itching, lesions, wounds. CARDIOVASCULAR: No chest pain, chest pressure or chest discomfort, palpitations, edema, orthopnea, syncopal events. RESPIRATORY: + Mild cough. No shortness of breath, markedly productive sputum, wheezing, hemoptysis. GASTROINTESTINAL: + Decreased appetite, nausea without emesis. No diarrhea, abdominal pain, melena, BRBPR. GENITOURINARY: + Chronic indwelling suprapubic catheter with BPH with obstructive pathology. No dysuria, suprapubic tendency or malfunction/anuria. NEUROLOGICAL: No headache, dizziness, syncope, paralysis, ataxia, numbness or tingling in the extremities, focal weakness, change in bowel or bladder control, seizure. MUSCULOSKELETAL: + muscle, back pain, joint pain or stiffness. HEMATOLOGIC: + Chronic anemia, no marked easy history of bleeding/bruising. LYMPHATICS: No enlarged nodes. No history of splenectomy. PSYCHIATRIC: + History of anxiety and depression. ENDOCRINOLOGIC: No reports of sweating, cold or heat intolerance. No polyuria or polydipsia. ALLERGIES: + History of hives. Vital Signs Vital Signs Vital Signs: 02/24/25 19:54 02/24/25 19:59 02/24/25 20:01 Temperature 98.8 F 98.8 F Temperature Source Oral Oral Pulse Rate 119 H 108 H Respiratory Rate 19 H 25 H Respiratory Effort Normal Respiratory Pattern Tachypnea Blood Pressure 93/70 121/66 H Blood Pressure Mean 77 84 Pulse Ox 99 96 Oxygen Delivery Method Room Air Room Air 02/24/25 20:55 02/24/25 21:00 02/24/25 21:59 Temperature 98 F 98 F 98 F Temperature Source Oral Oral Oral Pulse Rate 83 84 76 Respiratory Rate 25 H 22 H 25 H Respiratory Effort Respiratory Pattern Blood Pressure 97/64 97/64 96/56 L Blood Pressure Mean 75 75 69 Pulse Ox 94 94 94 Oxygen Delivery Method Room Air Room Air Room Air 02/24/25 22:12 Temperature 98 F Temperature Source Pulse Rate 76 Respiratory Rate 21 H Respiratory Effort Respiratory Pattern Blood Pressure 96/56 L Blood Pressure Mean 69 Pulse Ox 93 Oxygen Delivery Method Weight Weight: 198 lb Body Mass Index (BMI) 29.2 Physical Exam Narrative Physical Examination: General: Awake, alert, oriented x 3 and cooperative, seated upright in the ED bed, fatigued but notes feeling better since initial ED arrival. Skin: Normal color, normal turgor, no icterus, no cyanosis except occasional stage ecchymoses, abrasion. HEENT: AT/NC, EOMI, PERRLA, moderately dry MM, no carotid bruits or JVD noted. Lungs: CTA bilaterally, moderate effort, mild decrease BL bases, no rales, ronchi or wheezing. Heart: Regular rate and rhythm; no gallop, rub audible. Abdomen: Soft, NTTP no discomfort to suprapubic palpation, suprapubic catheter in place,, ND, normal BS, no appreciated HSM. Extremities: No cyanosis, clubbing, or edema. Neurological: Patient awake, alert, oriented as noted, cognitive function intact; pupils equally reactive to light and accommodation, cranial nerves grossly normal, moving all 4 extremities, no focal deficits, strength moderately globally decreased. Psychiatric: Affect appears fatigued otherwise normal, no acute evidence of depressive or anxiety feelings but does have underlying history noted. Results Lab / Micro Data 02/24/25 20:31 02/24/25 20:31 Labs: Laboratory Results - last 24 hr 02/24/25 20:31: WBC 4.9, RBC 3.61 L, Hgb 10.9 L, Hct 31.1 L, MCV 86.1, MCH 30.2, MCHC 35.0, RDW Std Deviation 43.8, RDW Coeff of Jerry 13.8, Plt Count 138 L, MPV 11.0, Immature Gran % (Auto) 0.800, Neut % (Auto) 83.7 H, Lymph % (Auto) 4.5 L, [place] % (Auto) 5.9, Eos % (Auto) 4.9, Baso % (Auto) 0.2, Absolute Neuts (auto) 4.1, Absolute Lymphs (auto) 0.22 L, Nucleated RBC % 0, Sodium 132 L, Potassium 4.1, Chloride 103, Carbon Dioxide 18.1 L, Anion Gap 11, BUN 20 H, Creatinine 1.34 H, Estim Creat Clear Calc 51.16, Est GFR (MDRD) Non-Af 55 L, BUN/Creatinine Ratio 14.9, Glucose 151 H, Lactic Acid 1.6, Calcium 8.0, Total Bilirubin 0.51, AST 26, ALT 13, Alkaline Phosphatase 51, Total Protein 6.1, Albumin 3.2 L, Globulin 3.0, Albumin/Globulin Ratio 1.1 Assessment & Plan Assessment/Plan (1) UTI (urinary tract infection): PLAN: Plan The patient is a 79 y/o M w/ PMHx: Chronic Kidney Disease Stage II versus stage III unclear subtype, uncertain as vacillates, Chronic normocytic anemia, Hx Prostate CA s/p prostatectomy w/ obstructive pathology with chronic indwelling Worthy catheter, Hx TIA, HTN, Anxiety and Depression who presents to the [facility] ED on 02/24/2025 secondary recent urinary tract infection diagnosis seen the day prior prescribed ciprofloxacin with first dose on day of current presentation however patient continued to have persistent symptoms including onset of fever and chills with a chronic suprapubic catheter in place for the last 2 years secondary to underlying bladder cancer and interventions following in addition to recent onset over the last 24 hours of mild URI type symptoms however swabs were negative and a chest x-ray had been unremarkable but given worsening symptoms prompted return for ED reevaluation. #1. SIRS with Acute Complicated Urinary Tract Infection secondary to chronic indwelling Worthy catheter secondary to history of prostate cancer status post i prostatectomy with obstructive pathology, failed outpatient antibiotic therapy attempts: Will admit to PCU given SIRS with lower blood pressure although improving with IV fluids, UA upon ED evaluation remarkable, pending UCx, will continue judicious IVFs, monitor I/Os, initiate and maintain on IV meropenem and IV vancomycin based on previous cultures to be cautious with de-escalation once resulted sensitivities and speciation. Bld cx x 2 obtained in the ED. Will request consultation with patient's urologist Dr. Gilliland for indwelling Worthy catheter change. #2. Recent URI type symptoms: Recent rapid negative, will obtain full panel to be cautious, will treat symptoms conservatively/supportively. #3. Chronic Kidney Disease Stage II versus stage III unclear subtype, uncertain as vacillates: Admission BUN/Cr 20/1.34, GFR 55 although GFR has vacillated between stage II and stage III, baseline renal function 1.0-1.3 although has vacillated, repeat BMP in AM. #4. Chronic normocytic anemia: Admission globin 10.9, MCV 86.1, baseline hemoglobin more recently 10-11, stable, continue to trend. #5. History of TIA: Will continue asa, not on statin, holding HTN regiment as noted. #6. Anxiety and depression: Noted history, per current list does not appear to be on any regimen, clarifying to be certain. Encouraged continued follow-up outpatient as previously arranged #7. Hypertension: BP upon presentation low, improving with IV fluids, will hold all hypertensive regimens, add back once appropriate. #8. Hyperlipidemia: Not on regimen, defer to outpatient. #9. DVT prophylaxis: Lovenox. #10. CODE status: Patient HCPOA is and living will is currently in place. Discussed CODE status at length including difference between FULL code, DNR-CCA and DNR-CC status. Following discussions about the differences in these status, requested Full Code status. Charges/Coding Visit Charges Inpatient E&M: 04006 Init Hosp L3
--- OUTSIDE RECORDS SUMMARY | 2025-02-24 23:04 | XMS RPT_ITS | CCD ---
Author Organization [facility] Care Team Providers Care Biology Tutor Name Role Phone Carlos HOOK MD, Nayan Unavailable Kelvin Han MD Primary Care Provider KELVIN HAN Primary Care Unavailabl ashish Gonzalez MD, Nayan Unavailable Kelvin Han MD Primary Care Provider KELVIN HAN Primary Care Unavailabl e KELVIN HAN Primary Care Unavailabl e MATT GARCIA Attending Unavailable KELVIN HAN Primary Care Unavailabl e MATT GACRIA Attending Unavailable KELVIN HAN Primary Care Unavailabl [...] Provider Dr. Reuben Kirkland DO Attending Provider [phone] Dr. Reuben Kirkland DO Emergency Provider Dr. Kelvin Han MD Attending Provider [phone] Dr. Kelvin Han MD Referring Provider [phone] Dr. Kishore Nicolas MD Emergency Provider Dr. [...] Adonis HOOK, Dr. Colon Other Provider [phone] Nicole HOOK, Dr. Rosario Other Provider [phone] Devon Tavera MD Other Provider [phone] Reuben Bass MD Other Provider [phone] Michael HOOK, Dr. Pagan Other Provider [phone] lAeena HOOK, Dr. Nicole Other Provider [facility] ashish Sepulveda MD, Dr. Andersen Other Provider Leobardo HOOK, Dr. Griffin Other Provider [phone] Kevin Laureano MD Other Provider Elver HOOK, Dr. Alexis Other Provider [phone] Vicente Ordonez DO Other Provider [phone] Edie HOOK, Dr. Win Other Provider [phone] Jay HOOK, Dr. Vidales Other Provider Rolando ALFORD, Dr. Wren Other Provider Espnioza HOOK, Dr. Villalobos Other Provider [phone] Gerson HOOK, Dr. Mcgrath Other Provider Kj ALFORD, Dr. Cates Attending Provider Sherif POOLING OPERATOR-C, Tiffanie Attending Provider Javier HOOK, Dr. Jorgensen [...] Guille HOOK, Dr. Colon Referring Provider [phone] Dr. Jorge Alberto Love DO Attending Provider Guille HOOK, Dr. Colon Primary Care Provider Maynor Vuong Attending Provider Guille, Kelvin Primary Care Unavailable Reuben Kirkland Attending Unavailable Guille, Christopher Primary Care Unavailable Reuben Kirkland Attending Unavailable Sisanupam Cameron Referring Unavailable Sisanupam Cameron Attending Unavailable Tigist POOLING OPERATOR, Kayce E Consulting Unavailabl e Ranney, Christopher Primary Care Unavailable Ranney, Christruchi Referring Unavailable Tigist POOLING OPERATOR, Kayce E Attending Unavailabl e Ranney, Christopher Primary Care Unavailable Ranney, Christopher Primary Care Unavailable Ranney, Krishnaer Attending Unavailable Ranney, Christopher Referring Unavailable Ranney, Christopher Primary Care Unavailable Tigist POOLING OPERATOR, Kayce E Attending Unavailabl e Ranney, Christopher Primary Care Unavailable Rajinder Acosta Consulting Unavailable Rajinder Acosta Admitting Unavailable Jameel Herrera Attending Unavailable Zhao Gilliland Consulting Unavailable Cameron Giron Consulting Unavailable Juany Souza Consulting Unavailable [facility] Unavailable Tigist POOLING OPERATOR, Kayce E Attending UnavailCameron Higuera Referring Unavailable Tigist POOLING OPERATOR, Kayce E Consulting UnavailCameron Higuera Attending Unavailable [facility] Unavailable Tigist POOLING OPERATOR, Kayce E Referring Unavailabl e Tigist POOLING OPERATOR, Kayce E Consulting Unavailabl e Tigist POOLING OPERATOR, Kayce E Attending Unavailgordon e [facility] Unavailable [facility] Unavailable Juany Souza Attending Unavailable Rajinder Acosta [...] Doran Consulting Unavailable Alcides Nieto Consulting Unavailable [facility] Unavailable Jorge Alberto Love Attending Unavailable [facility] Unavailable Reuben Kirkland Attending Unavailable [facility] Unavailable Kishore Nicolas Attending Unavailable [facility] Unavailable Sherlyn Crenshaw Consulting Unavailable [facility]ille [facility] Referring Unavailable Kelvin Han Attending Unavailable RogercoffeyvilleKelvin Attending Unavailable [facility] Referring Unavailable [facility] Unavailable Tigist POOLING OPERATOR, Kayce E Consulting Unavailabl e Tigist POOLING OPERATOR, Kayce E Referring Unavailabl e Tigist POOLING OPERATOR, Kayce E Attending Unavailabl e Tigist POOLING OPERATOR, Kayce E Consulting Unavailabl e [facility] Unavailable Tigist POOLING OPERATOR, Kayce E Attending Unavailabl e Tigist POOLING OPERATOR, Kayce E Referring Unavailabl e Tigist POOLING OPERATOR, Kayce E Referring Unavailabl e [facility] Unavailable Tigist POOLING OPERATOR, Kayce E Consulting Unavailabl e Tigist POOLING OPERATOR, Kayce E Attending Unavailabl e Tigist POOLING OPERATOR, Kayce E Consulting Unavailabl e [facility] Unavailable Nini Lewis Attending Unavailable [facility] Unavailable Maynor Vuong Attending Unavailable [facility] Referring Unavailable [facility] Unavailable Jorge Alberto Love Attending Unavailable Jameel Herrera Attending Unavailable Jameel Herrera Consulting Unavailable Tiffanie Gorman Attending Unavailable Rajinder Acosta Attending Unavailable [facility] Unavailable Tigist POOLING OPERATOR, Kayce E Consulting Unavailabl e Tigist POOLING OPERATOR, Kayce E Attending Unavailabl e [facility] Unavailable [facility] Referring Unavailable Tigist POOLING OPERATOR, Kayce E Attending Unavailabl e Allergies Allergy Classification Reported Allergen(s) Allergy Type Date of Onset Reaction(s) Facility (20 sources) Sulfonamides (Antibiotic); Translations: [SULFA (SULFONAMIDE ANTIBIOTICS)] Allergy to substance 12-23-19 05 [facility] (20 sources) Atenolol; Translations: [ATENOLOL] Drug Allergy 12-23-19 05 [facility] (20 sources) hydroCHLOROthiazide; Translations: [HYDROCHLOROTHIAZIDE] Drug Allergy 12-23-19 05 [facility] Comment on above: Pt states did not to lerate (14 sources) Indomethacin Drug Allergy 02-15-20 GI upset [facility] (14 sources) Losartan Drug Allergy 02-15-20 Rash [facility] (14 sources) Indomethacin; Translations: [INDOMETHACIN SODIUM] Drug Allergy 07-28-19 13 GI Upset [facility] (14 sources) Losartan; Translations: [LOSARTAN POTASSIUM] Drug Allergy 08-20-19 15 Hives [facility] (10 sources) Primaquine; Translations: [8-AMINOQUINOLINES] Drug Allergy 12-23-19 24 [facility] (1 source) Atenolol Drug Allergy 02-25-20 [facility] (1 source) hydroCHLOROthiazide Drug Allergy 02-25-20 [facility] (1 source) Indomethacin Drug Allergy 02-25-20 [facility] (1 source) Losartan Drug Allergy 02-25-20 [facility] Medications Current Medications Medication Drug Class(es) [...] times daily 0 August 20, 2024 12:00am Zeux-bwk-gztrawq for 1 week. Start: 08-20-2024 take 1 capsule by mouth twice daily L.Acidoph,Saliva-B.Bif-S.Therm 175 mg Ca psule Active 1 NMA PO 2 times daily 0 August 20, 2024 12:00am Xmvd-zoa-obguxgt for 1 week. 4-month 1.5 ml leuprolide [...] tablet by mouth twice daily. mv with mne-PM-iskzjusa -ginkgo (ONE-A-DAY MEN'S 50+ ADVANTAGE) 400-300-120 mcg-mcg-mg tab (12 sources) Start: 04-28-2015 take 1 tablet by mouth once daily mv with dhg-FW-kauwptvg-gin kgo (ONE-A-DAY MEN'S 50+ ADVANTAGE) 400-300-120 mcg-mcg-mg tab Take 1 tablet by mouth once daily. 90 tablet 3 04/28/2015 Active Comment on above: Take 1 tablet by mouth once daily. Mv,Ca,Min-Iron- Fa-Lycopene (A Thru Z Men's Ultimate) 8 mg iron- 200 mcg-600 mcg tablet (8 sources) Start: 11-04-2023 take 8 tablets by mouth once daily Mv,Ca,Vbm-Dzby-Am-L ycopene (A Thru Z Men's Ultimate) 8 mg iron- 200 mcg-600 mcg tablet Active 1 {tbl} PO DAILY November 04, 2023 12:00am SUPPLEMENT Start: 11-04-2023 take 8 tablets by [facility] once daily Mv,Ca,Ufw-Lzqk-Ev-Lycopene (A Thru Z Men 's Ultimate) 8 [...] on above: Take 1 capsule by mo [facility] daily at bedtime. Completed/Discontinued Medications Medication Drug [...] Resolved: 08-10-2011 11-21-2015 Episodic Unclassified (6 sources) Pheba called the office and they were closed [...] )on 02-24-2025 BUN/CRE 14.4 RATIO Normal 03-25 [facility] Comment on above: Performed By: #### L 500.2500, L100.0100 ####[facility] [address] [place], [address] Calcium [Mass/Vol] 8.6 mg/dL Normal 7.6-11.0 [facility] Comment on above: Performed By: #### L 500.2500, L100.0100 ####[facility] [address] [place], [address] Chloride [Moles/Vol] 103 mmol/L Normal 98-108 [facility] Comment on above: Performed By: #### L 500.2500, L100.0100 ####[facility] [address] [place], [address] CO2 [Moles/Vol] 20.5 mmol/L Low 21.0-32.0 [facility] Comment on above: Performed By: #### L 500.2500, L100.0100 ####[facility] [address] [place], [address] Creatinine [Mass/Vol] 1.26 mg/dL High 0.70-1.20 [facility] Comment on above: Performed By: #### L 500.2500, L100.0100 ####[facility] [address] [place], [address] ECRCL 56.85 ml/min Normal 50-250 [facility] Comment on above: Performed By: #### L 500.2500, L100.0100 ####[facility] [address] [place], [address] GAP 11 Normal 5-15 [facility] Comment on above: Performed By: #### L 500.2500, L100.0100 ####[facility] [address] [place], [address] GFR/1.73 sq M.predicted among non-blacks MDRD (S/P/Bld) [Vol rate/Area] 59 mL/min/{1.73_m2} Low >60 [facility] Comment on above: Result Comment: mL/m in/1.73m2 CKD-EPI Creatinine Equation (2020) Performed By: #### L 500.2500, L100.0100 ####[facility] [address] [place], [address] Glucose [Mass/Vol] 121 mg/dL High 70-99 [facility] Comment on above: Performed By: #### L 500.2500, L100.0100 ####[facility] [address] [place], [address] Potassium [Moles/Vol] 4.0 mmol/L Normal 3.3-5.1 [facility] Comment on above: Performed By: #### L 500.2500, L100.0100 ####[facility] [address] [place], [address] Sodium [Moles/Vol] 135 mmol/L Normal 133-145 [facility] Comment on above: Performed By: #### L 500.2500, L100.0100 ####[facility] [address] [place], [address] Urea nitrogen [Mass/Vol] 18 mg/dL Normal 4-19 [facility] Comment on above: Performed By: #### L 500.2500, L100.0100 ####[facility] [address] [place], [address] CBC W/Diff, Automatedon 02-05 Absolute Lymph 0.50 X10 3/uL Low 0.83-4.51 [facility] Comment on above: Performed By: #### L 500.2500, L100.0100 ####[facility] [address] [place], [address] Absolute Neut 3.1 X10 3/uL Normal 2.0-7.7 [facility] Comment on above: Performed By: #### L 500.2500, L100.0100 ####[facility] [address] [place], [address] Basophils/100 WBC (Bld) 0.3 % Normal 0-1 [facility] Comment on above: Performed By: #### L 500.2500, L100.0100 ####[facility] [address] [place] [place], [address] Eosinophils/100 WBC (Bld) 4.1 % Normal 0-5 [facility] Comment on above: Performed By: #### L 500.2500, L100.0100 ####[facility] [address] [place], [address] Erythrocyte distribution width (RBC) [Ratio] 13.7 % Normal 11.6-14.6 [facility] Comment on above: Performed By: #### L 500.2500, L100.0100 ####[facility] [address] [place], [address] Hematocrit (Bld) [Volume fraction] 34.0 % Low 40-54 [facility] Comment on above: Performed By: #### L 500.2500, L100.0100 ####[facility] [address] [place], [address] Hemoglobin (Bld) [Mass/Vol] 11.6 g/dL Low 13.0-16.5 [facility] Comment on above: Performed By: #### L 500.2500, L100.0100 ####[facility] [address] [place], [address] IG% 1.000 High 0.0-0.9 [facility] Comment on above: Result Comment: IG% - Immature Granulocytes (promyelocytes, myelocytes andmetamyelocytes) > 1% indicates that a LEFT SHIFT is Present. Performed By: #### L 500.2500, L100.0100 ####[facility] [address] [place], [address] Lymphocytes/100 WBC (Bld) 12.7 % Low 19-41 [facility] Comment on above: Performed By: #### L 500.2500, L100.0100 ####[facility] [address] [place] [place], [address] MCH (RBC) [Entitic mass] 29.7 pg Normal 27.0-32.0 [facility] Comment on above: Performed By: #### L 500.2500, L100.0100 ####[facility] [address] [place], [address] MCHC (RBC) [Mass/Vol] 34.1 g/dL Normal 32-36 [facility] Comment on above: Performed By: #### L 500.2500, L100.0100 ####[facility] [address] [place], [address] MCV (RBC) [Entitic vol] 87.2 fL Normal 80-94 [facility] Comment on above: Performed By: #### L 500.2500, L100.0100 ####[facility] [address] [place], [address] Monocytes/100 WBC (Bld) 3.8 % Normal 0-10 [facility] Comment on above: Performed By: #### L 500.2500, L100.0100 ####[facility] [address] [place], [address] Neutrophils/100 WBC (Bld) 78.1 % High 47-70 [facility] Comment on above: Performed By: #### L 500.2500, L100.0100 ####[facility] [address] [place] [place], [address] Nucleated RBC (Bld) [#/Vol] 0 10*3/uL Normal 0-5 [facility] Comment on above: Performed By: #### L 500.2500, L100.0100 ####[facility] [address] [place] [place], [address] Platelet mean volume (Bld) [Entitic vol] 9.9 fL Normal 6.2-12.0 [facility] Comment on above: Performed By: #### L 500.2500, L100.0100 ####[facility] [address] [place], [address] Platelets (Bld) [#/Vol] 185 10*3/uL Normal 150-450 [facility] Comment on above: Performed By: #### L 500.2500, L100.0100 ####[facility] [address] [place], [address] RBC (Bld) [#/Vol] 3.90 10*6/uL Low 4.6-6.2 [facility] Comment on above: Performed By: #### L 500.2500, L100.0100 ####[facility] [address] [place], [address] RDW SD 43.8 fl Normal 35.1-43.9 [facility] Comment on above: Performed By: #### L 500.2500, L100.0100 ####[facility] [address] [place], [address] WBC (Bld) [#/Vol] 3.9 10*3/uL Low 4.4-11.0 [facility] Comment on above: Performed By: #### L 500.2500, L100.0100 ####[facility] [address] [place], [address] Chest PA and Lateralon 02-24 Chest PA and Lateral Normal [facility] Emergency Department Summary on 02-24-2025 Emergency Department Summary Normal [facility] M100.678on 02-24-2025 M100.678 Pending SARS-CoV-2 (COVID 19) Negative INFLUENZA A Negative INFLUENZA B Negative RSV PCR Negative Normal [facility] Comment on above: Performed By: #### M 100.678, L400.0001 ####[facility] [address] [place], [address] Urinalysis, Completeon 02-24 AMORPHOUS 1+ Normal [facility] Comment on above: Order Comment: JAY CTOR TO SPECIFY Performed By: #### M 100.678, L400.0001 ####[facility] [address] [place], [address] BACTERIA 3+ /hpf Normal None Seen [facility] Comment on above: Order Comment: JAY CTOR TO SPECIFY Performed By: #### M 100.678, L400.0001 ####[facility] [address] [place], [address] EPI,SQUAMOUS 0-5 SEEN Normal 0-5 [facility] Comment on above: Order Comment: [facility] CTOR TO SPECIFY Performed By: #### M 100.678, L400.0001 ####[facility] [address] [place], [address] RBC 5-10 SEEN Normal 0-5 [facility] Comment on above: Order Comment: [facility] CTOR TO SPECIFY Performed By: #### M 100.678, L400.0001 ####[facility] [address] [place], [address] WBC >100 SEEN Normal 0-5 [facility] Comment on above: Order Comment: [facility] CTOR TO SPECIFY Performed By: #### M 100.678, L400.0001 ####[facility] [address] [place], [address] Mucus Ql (Urine sed) 0 SEEN Normal [facility] Comment on above: Order Comment: JAY CTOR TO SPECIFY Performed By: #### M 100.678, L400.0001 ####[facility] [address] [place], [address] Urgent Care Visit Reporton 0 01-07-2025 Urgent Care Visit Report Normal [facility] Calculated very low density lipoprotein (VLDL) cholesterol measurementOrdered By: Kelvin Han on 12-04-2024 Calculated very low density lipoprotein (VLDL) cholesterol measurement 16 mg/dL 5-40 [facility] LDL calc ser/plasOrdered By: Kelvin Han on 12-04-2024 Cholesterol in LDL [Mass/Vol] 101 mg/dL [facility] Comment on above: Isapsihhpk=620-748 m g/dL & Higher Ixim=140 mg/dL or greater Lipid Profileon 12-04-2024 CHOL:HDL 3.21 Normal [facility] Comment on above: Order Comment: Order Date: 12/03/24Order Info: [id number] - LIPID Performed By: #### L 500.4100 ####[facility] [address] [place], [place], [address] Cholesterol [Mass/Vol] 169 mg/dL Normal <=200 [facility] Comment on above: Order Comment: Order Date: 12/03/24Order Info: [id number] - LIPID Result Comment: Chol esterol level, Desirable <200 mg/dLBorderline high cholesterol 200-239 mg/dLHigh cholesterol >=240 mg/dLRecommendations of the NCEP Adult Treatment Panel for thefollowing risk-cutoff thresholds for the [place] Americanpopulation. Performed By: #### L 500.4100 ####[facility] [address] [place], [place], [address] Cholesterol in HDL [Mass/Vol] 53 mg/dL Normal [facility] Comment on above: Order Comment: Order Date: 12/03/24Order Info: [id number] - LIPID Result Comment: [place] onal Cholesterol Education Program (NCEP) guidelines:<40 mg/dL: Low HDL-cholesterol (major risk factor for CHD)>= 60 mg/dL: High HDL-cholesterol (negative risk factor forCHD)HDL-cholesterol is affected by a number of factors, e.g.smoking, exercise, hormones, sex and age. Performed By: #### L 500.4100 ####[facility] [address] [place], [place], [address] Cholesterol in LDL [Mass/Vol] 101 mg/dL Normal [facility] Comment on above: Order Comment: Order Date: 12/03/24Order Info: [id number] - LIPID Result Comment: Bord uibgja=467-720 mg/dL Higher Biqh=240 mg/dL or greater Performed By: #### L 500.4100 ####[facility] [address] [place], [place], [address] Cholesterol in VLDL [Mass/Vol] 16 mg/dL Normal 5-40 [facility] Comment on above: Order Comment: Order Date: 12/03/24Order Info: [id number] - LIPID Performed By: #### L 500.4100 ####[facility] [address] [place], [address] Triglyceride [Mass/Vol] 78 mg/dL Normal [facility] Comment on above: Order Comment: Order Date: 12/03/24Order Info: [id number] - LIPID Result Comment: The drugs N-Acetylcysteine and Metamizole may falselydepress this assay.Normal range: <150 mg/dLBorderline High: 150-199 mg/dLHigh: 200-499 mg/dLVery High: >500 mg/dL Performed By: #### L 500.4100 ####[facility] [address] [place], [place], [address] Screening total cholesterol/ high density lipoprotein (HDL) cholesterol ratioOrdered By: Kelvin Han on 12-04-2024 Cholesterol.total/Choles terol in HDL [Mass ratio] 3.21 {ratio} [facility] Serum or plasma cholesterol in HDL measurement (mass/volume)Ordered By: Kelvin Han on 12-04-2024 Cholesterol in HDL [Mass/Vol] 53 mg/dL >40 [facility] Comment on above: National Cholesterol Education Program (NCEP) guidelines:<40 mg/dL: Low HDL-cholesterol (major risk factor for CHD)>= 60 mg/dL: High HDL-cholesterol (negative risk factor for CHD)HDL-cholesterol is affected by a number of factors, e.g. smoking, exercise, hormones, sex and age. Serum or plasma cholesterol measurement (mass/volume)Ordered By: Kelvin Han on 12-04-2024 Cholesterol [Mass/Vol] 169 mg/dL <201 [facility] Comment on above: Cholesterol level, D esirable <200 mg/dLBorderline high cholesterol 200-239 mg/dLHigh cholesterol >=240 mg/dLRecommendations of the NCEP Adult Treatment Panel for the following risk-cutoff thresholds for the [place] population. Triglycerides measurementOrd ered By: Kelvin Han on 12-04-2024 Triglyceride [Mass/Vol] 78 mg/dL <199 [facility] Comment on above: The drugs N-Acetylcy steine and Metamizole may falsely depress this assay. Normal range: <150 mg/dLBorderline High: 150-199 mg/dLHigh: 200-499 mg/dLVery High: >500 mg/dL Emergency Department Summary on 11-18-2024 Emergency Department Summary Normal [facility] Urine Cultureon 11-17-2024 URC Normal [facility] Comment on above: Performed By: #### M 100.2200 ####[facility] [address] [place], [place], [address] Urinalysis, Completeon 11-14 BACTERIA 4+ /hpf Normal None Seen [facility] Comment on above: Order Comment: JAY CTOR TO SPECIFY Performed By: #### L 400.0001 ####[facility] [address] [place], [address] CAST,HYALINE 0-5 SEEN Normal 0-5 [facility] Comment on above: Order Comment: JAY CTOR TO SPECIFY Performed By: #### L 400.0001 ####[facility] [address] [place], [address] EPI,SQUAMOUS 0-5 SEEN Normal 0-5 [facility] Comment on above: Order Comment: COLLE CTOR TO SPECIFY Performed By: #### L 400.0001 ####[facility] [address] [place], [address] Mucus Ql (Urine sed) 1+ /hpf Normal [facility] Comment on above: Order Comment: JAY CTOR TO SPECIFY Performed By: #### L 400.0001 ####[facility] [address] [place], [address] RBC 25-50 SEEN Normal 0-5 [facility] Comment on above: Order Comment: JAY CTOR TO SPECIFY Performed By: #### L 400.0001 ####[facility] [address] [place], [address] TRIPLE PHOS 1+ /hpf Normal [facility] Comment on above: Order Comment: JAY CTOR TO SPECIFY Performed By: #### L 400.0001 ####[facility] [address] [place], [address] WBC >100 SEEN Normal 0-5 [facility] Comment on above: Order Comment: JAY CTOR TO SPECIFY Performed By: #### L 400.0001 ####[facility] [address] [place], [address] LEUK ESTERASE 500 /ul Abnormal Negative [facility] Comment on above: Order Comment: JAY CTOR TO SPECIFY Performed By: #### L 400.0001 ####[facility] [address] [place], [address] Nitrite Ql (U) Positive Abnormal Negative [facility] Comment on above: Order Comment: JAY CTOR TO SPECIFY Performed By: #### L 400.0001 ####[facility] [address] [place], [address] OCCULT BLOOD-UR 250 /ul Abnormal Negative [facility] Comment on above: Order Comment: JAY CTOR TO SPECIFY Performed By: #### L 400.0001 ####[facility] [address] [place], [address] UROBILI Normal Normal Normal [facility] Comment on above: Order Comment: JAY CTOR TO SPECIFY Performed By: #### L 400.0001 ####[facility] [address] [place], [address] BILIRUBIN URINE Negative Normal Negative [facility] Comment on above: Order Comment: JAY CTOR TO SPECIFY Performed By: #### L 400.0001 ####[facility] [address] [place], [address] Clarity (U) Cloudy Normal Clear [facility] Comment on above: Order Comment: JAY CTOR TO SPECIFY Performed By: #### L 400.0001 ####[facility] [address] [place], [address] Color (U) Yellow Normal Yellow [facility] Comment on above: Order Comment: JAY CTOR TO SPECIFY Performed By: #### L 400.0001 ####[facility] [address] [place], [address] GLUCOSE, UR Negative Normal Normal [facility] Comment on above: Order Comment: JAY CTOR TO SPECIFY Performed By: #### L 400.0001 ####[facility] [address] [place], [address] KETONE UR Negative Normal Negative [facility] Comment on above: Order Comment: JAY CTOR TO SPECIFY Performed By: #### L 400.0001 ####[facility] [address] [place], [address] pH UR 8.0 Normal 5.0 - 8.0 [facility] Comment on above: Order Comment: JAY CTOR TO SPECIFY Performed By: #### L 400.0001 ####[facility] [address] [place], [address] PROT DIPSTX 100 mg/dl Abnormal Negative [facility] Comment on above: Order Comment: JAY CTOR TO SPECIFY Performed By: #### L 400.0001 ####[facility] [address] [place], [address] SP.GR. DIPSTX 1.010 Normal 1.002-1.030 [facility] Comment on above: Order Comment: COLLE CTOR TO SPECIFY Performed By: #### L 400.0001 ####[facility] [address] [place], [address] Bilirubin Test strip Ql (U)O rdered By: Jorge Alberto Love on 11-13-2024 Bilirubin Ql (U) Negative Negative [facility] Emergency Department Summary on 11-13-2024 Emergency Department Summary Normal [facility] Hyaline casts LM.LPF (Urine sed) [#/Area]Ordered By: Jorge Alberto Love on 11-13-2024 Hyaline casts (Urine sed) [#/Area] 0 /[LPF] 0-5 [facility] Ketones Test strip Ql (U)Ord ered By: Jorge Alberto Love on 11-13-2024 Ketones Ql (U) Negative Negative [facility] Microscopic analysis of urin e for red blood cells (RBC)Ordered By: Jorge Alberto Love on 11-13-2024 Microscopic analysis of urine for red blood cells (RBC) 25-50 SEEN /hpf 0-5 [facility] Mucus LM Ql (Urine sed)Order ed By: Jorge Alberto Love on 11-13-2024 Mucus Ql (Urine sed) 1+ /hpf [facility] Nitrite Test strip Ql (U)Ord ered By: Jorge Alberto Love on 11-13-2024 Nitrite Ql (U) Positive High Negative [facility] Protein Test strip Ql (U)Ord ered By: Jorge Alberto Love on 11-13-2024 Protein Ql (U) 100 mg/dl High Negative [facility] Squamous epithelial cells de tection in urine sediment by light microscopyOrdered By: Jorge Alberto Love on 11-13-2024 Epithelial cells.squamous LM Ql (Urine sed) 0-5 SEEN /hpf 0-5 [facility] Triple phosphate crystals de tection in urine sediment by light microscopyOrdered By: Jorge Alberto Love on 11-13-2024 Triple phosphate crystals LM Ql (Urine sed) 1+ /hpf [facility] Urine clarityOrdered By: Scott Love on 11-13-2024 Clarity (U) Cloudy Clear [facility] Urine color determinationOrd ered By: Jorge Alberto Love on 11-13-2024 Color (U) Yellow Yellow [facility] Urine cultureOrdered By: Scott Love on 11-13-2024 Bacteria identified Cx Nom (U) Providencia rettgeri Abnormal [facility] Bacteria identified Cx Nom (U) Corynebacterium striatum Abnormal [facility] Urine glucose detectionOrder ed By: Jorge Alberto Love on 11-13-2024 Glucose Ql (U) Negative Normal [facility] Urine leukocyte esterase det ection by dipstickOrdered By: Jorge Alberto Love on 11-13-2024 Leukocyte esterase Test strip Ql (U) 500 /ul High Negative [facility] Urine pHOrdered By: Jorge Alberto whatley on 11-13-2024 pH (U) 8.0 [pH] 5.0 - 8.0 [facility] Urine sediment bacteria coun t by microscopy (number/high power field)Ordered By: Jorge Alberto Love on 11-13-2024 Bacteria LM.HPF (Urine sed) [#/Area] 4 /[HPF] None Seen [facility] Urine specific gravity measu rementOrdered By: Jorge Alberto Love on 11-13-2024 Specific gravity (U) [Rel density] 1.010 1.002-1.030 [facility] Urine urobilinogen measureme ntOrdered By: Jorge Alberto Love on 11-13-2024 Urobilinogen Ql (U) Normal mg/dl Normal [facility] White blood cell countOrdere d By: Jorge Alberto Love on 11-13-2024 White blood cell count >100 SEEN /hpf 0-5 [facility] Emergency Department Summary on 10-16-2024 Emergency Department Summary Normal [facility] CELSA w/Comprehensiveon 2024 CELSA TABLE Comment Normal . [facility] Comment on above: Result Comment: Auto antibody [...] Ribosomal P SLE 10 - 20%Performed at: [place] [id number] Director: Basilio Ricci PhD, Phone: [phone] AMENDED REPORT 09/25/241107 COMMENT previously reported as: Test not performed Performed By: #### L 3100.5430, L3100.5440, U619.4812 ####[facility] [address] [place], [address] ANTI-CENT B AB <0.2 Normal 0.0-0.9 [facility] Comment on above: Result Comment: AMENDED REPORT 09/25/241107 ANTI-CENT B previously reported as: Test not performed Performed By: #### L 3100.5430, L3100.5440, L537.8362 ####[facility] [address] [place], [address] ANTI-DNA (DS)AB 3 IU/mL Normal 0-9 [facility] Comment on above: Result Comment: Nega tive <5 Equivocal 5 - 9 Positive >9 AMENDED REPORT 09/25/241107 dsDNA AB previously reported as: Test not performed Performed By: #### L 3100.5430, L3100.5440, L501.9940 ####[facility] [address] [place], [address] ANTI-MISTY-1 <0.2 Normal 0.0-0.9 [facility] Comment on above: Result Comment: AMENDED REPORT 09/25/241107 ANTI-MISTY previously reported as: Test not performed Performed By: #### L 3100.5430, L3100.5440, L501.9940 ####[facility] [address] [place], [address] ANTI-SS-A > 8.0 High 0.0-0.9 [facility] Comment on above: Result Comment: AMENDED REPORT 09/25/241107 Anti-SS-A previously reported as: Test not performed Performed By: #### L 3100.5430, L3100.5440, L501.9940 ####[facility] [address] [place], [address] ANTI-SS-B < 0.2 Normal 0.0-0.9 [facility] Comment on above: Result Comment: AMENDED REPORT 09/25/241107 Anti-SS-B previously reported as: Test not performed Performed By: #### L 3100.5430, L3100.5440, L501.9940 ####[facility] [address] [place], [address] ANTICHROMATIN 0.2 AI Normal 0.0-0.9 [facility] Comment on above: Result Comment: AMENDED REPORT 09/25/241107 ANTICHROMATIN previously reported as: Test not performed Performed By: #### L 3100.5430, L3100.5440, L501.9940 ####[facility] [address] [place], [address] Antiribosomal P 0.3 AI Normal 0.0-0.9 [facility] Comment on above: Result Comment: AMENDED REPORT 09/25/241107 Anti-P previously reported as: Test not performed Performed By: #### L 3100.5430, L3100.5440, L501.9940 ####[facility] [address] [place], [address] ANTISCLERODERM <0.2 Normal 0.0-0.9 [facility] Comment on above: Result Comment: AMENDED REPORT 09/25/241107 ANTISCLER previously reported as: Test not performed Performed By: #### L 3100.5430, L3100.5440, L501.9940 ####[facility] [address] [place], [address] LABOR CONTRACTOR Ab <0.2 Normal 0.0-0.9 [facility] Comment on above: Result Comment: AMENDED REPORT 09/25/241107 LABOR CONTRACTOR Ab previously reported as: Test not performed Performed By: #### L 3100.5430, L3100.5440, L501.9940 ####[facility] [address] [place], [address] HODGES Ab <0.2 Normal 0.0-0.9 [facility] Comment on above: Result Comment: AMENDED REPORT 09/25/241107 HODGES Ab previously reported as: Test not performed Performed By: #### L 3100.5430, L3100.5440, L501.9940 ####[facility] [address] [place], [address] HODGES/LABOR CONTRACTOR Ab <0.2 Normal 0.0-0.9 [facility] Comment on above: Result Comment: AMENDED REPORT 04/22/25 1108 HODGES/LABOR CONTRACTOR Ab previously reported as: Test not performed Performed By: #### L 3100.5430, L3100.5440, L501.9940 ####[facility] [address] [place], [address] CBC W/Diff, Automatedon - PATH REV Reviewed Normal [facility] Comment on above: Result Comment: SEE REPORT IN PATIENT'S EMR AMENDED REPORT 09/19/24 1353 PATH REV previously reported as: May foll Performed By: #### L 100.0100, L500.2500 ####[facility] [address] [place], [address] CELSA Comprehensive Panelon CELSA TABLE TNP Normal [facility] Comment on above: Order Comment: MISAEL Manuel NOWS WHAT THIS GOES TO :) Result Comment: . Performed By: #### L 3100.5430, L3100.5440, L501.9940 ####[facility] [address] [place], [address] ANTI-CENT B AB TNP Normal [facility] Comment on above: Order Comment: MISAEL Manuel NOWS WHAT THIS GOES TO :) Result Comment: . Performed By: #### L 3100.5430, L3100.5440, L501.9940 ####[facility] [address] [place], [address] ANTI-DNA (DS)AB TNP Normal [facility] Comment on above: Order Comment: MISAEL Manuel NOWS WHAT THIS GOES TO :) Result Comment: . Performed By: #### L 3100.5430, L3100.5440, L501.9940 ####[facility] [address] [place], [address] ANTI-MISTY-1 TNP Normal [facility] Comment on above: Order Comment: MISAEL Manuel NOWS WHAT THIS GOES TO :) Result Comment: . Performed By: #### L 3100.5430, L3100.5440, L501.9940 ####[facility] [address] [place], [address] ANTI-SS-A TNP Normal [facility] Comment on above: Order Comment: MISAEL Manuel NOWS WHAT THIS GOES TO :) Result Comment: . Performed By: #### L 3100.5430, L3100.5440, L501.9940 ####[facility] [address] [place], [address] ANTI-SS-B TNP Normal [facility] Comment on above: Order Comment: MISAEL Manuel NOWS WHAT THIS GOES TO :) Result Comment: . Performed By: #### L 3100.5430, L3100.5440, L501.9940 ####[facility] [address] [place], [address] ANTICHROMATIN TNP Normal [facility] Comment on above: Order Comment: MISAEL Manuel NOWS WHAT THIS GOES TO :) Result Comment: . Performed By: #### L 3100.5430, L3100.5440, L501.9940 ####[facility] [address] [place], [address] ANTISCLERODERM TNP Normal [facility] Comment on above: Order Comment: MISAEL Manuel NOWS WHAT THIS GOES TO :) Result Comment: . Performed By: #### L 3100.5430, L3100.5440, L501.9940 ####[facility] [address] [place], [address] LABOR CONTRACTOR Ab TNP Normal [facility] Comment on above: Order Comment: MISAEL Manuel NOWS WHAT THIS GOES TO :) Result Comment: . Performed By: #### L 3100.5430, L3100.5440, L501.9940 ####[facility] [address] [place], [address] HODGES Ab TNP Normal [facility] Comment on above: Order Comment: MISAEL Manuel NOWS WHAT THIS GOES TO :) Result Comment: . Performed By: #### L 3100.5430, L3100.5440, L501.9940 ####[facility] [address] [place], [address] Absolute lymphocyte countOrd ered By: Kelvin Han on 09-18-2024 Lymphocytes Auto (Unsp spec) [#/Vol] 0.79 10*3/uL Low 0.83-4.51 [facility] Absolute neutrophil countOrd ered By: Kelvin Han on 09-18-2024 Neutrophils (Bld) [#/Vol] 4.3 10*3/uL 2.0-7.7 [facility] Anion gap in Serum or Plasma Ordered By: Kelvin Han on 09-18-2024 Anion gap [Moles/Vol] 12 mmol/L 10-18 [facility] Automated lymphocyte count a s percentage of total leukocytesOrdered By: Kelvin Han on 09-18-2024 Lymphocytes/100 WBC Auto (Unsp spec) 13.7 % Low 19-41 [facility] BUN/creatinine ratioOrdered By: Kelvin Han on 09-18-2024 Urea nitrogen/Creatinine [Mass ratio] 15.4 mg/mg 10-20 [facility] Basophil percentageOrdered B y: Kelvin Han on 09-18-2024 Basophils/100 WBC (Bld) 0.2 % 0-1 [facility] Bilirubin, totalOrdered By: Kelvin Han on 09-18-2024 Bilirubin [Mass/Vol] 0.36 mg/dL 0.00-1.30 [facility] CBC W/Diff, Automatedon 09-04 Absolute Lymph 0.79 X10 3/uL Low 0.83-4.51 [facility] Comment on above: Order Comment: Order Date: 09/17/24Order Info: [id number] - CBCDOrder Info: [id number] - SED Performed By: #### L 101.9900, L100.0100, L500.4050, L501.9520 ####[facility] [address] [place], [address] Absolute Neut 4.3 X10 3/uL Normal 2.0-7.7 [facility] Comment on above: Order Comment: Order Date: 09/17/24Order Info: 183- - CBCDOrder Info: [id number] - SED Performed By: #### L 101.9900, L100.0100, L500.4050, L501.9520 ####[facility] [address] [place], [address] Basophils/100 WBC (Bld) 0.2 % Normal 0-1 [facility] Comment on above: Order Comment: Order Date: 09/17/24Order Info: 183-06 - CBCDOrder Info: [id number] - SED Performed By: #### L 101.9900, L100.0100, L500.4050, L501.9520 ####[facility] [address] [place], [address] Eosinophils/100 WBC (Bld) 1.2 % Normal 0-5 [facility] Comment on above: Order Comment: Order Date: 09/17/24Order Info: 183-06 - CBCDOrder Info: [id number] - SED Performed By: #### L 101.9900, L100.0100, L500.4050, L501.9520 ####[facility] [address] [place], [address] Erythrocyte distribution width (RBC) [Ratio] 15.5 % High 11.6-14.6 [facility] Comment on above: Order Comment: Order Date: 09/17/24Order Info: 183-06 - CBCDOrder Info: [id number] - SED Performed By: #### L 101.9900, L100.0100, L500.4050, L501.9520 ####[facility] [address] [place], [address] Hematocrit (Bld) [Volume fraction] 35.2 % Low 40-54 [facility] Comment on above: Order Comment: Order Date: 09/17/24Order Info: 183- - CBCDOrder Info: [id number] - SED Performed By: #### L 101.9900, L100.0100, L500.4050, L501.9520 ####[facility] [address] [place], [address] Hemoglobin (Bld) [Mass/Vol] 11.9 g/dL Low 13.0-16.5 [facility] Comment on above: Order Comment: Order Date: 09/17/24Order Info: 183- - CBCDOrder Info: [id number] - SED Performed By: #### L 101.9900, L100.0100, L500.4050, L501.9520 ####[facility] [address] [place], [address] IG% 0.700 Normal 0.0-0.9 [facility] Comment on above: Order Comment: Order Date: 09/17/24Order Info: 183- - CBCDOrder Info: [id number] - SED Result Comment: IG% - Immature Granulocytes (promyelocytes, myelocytes andmetamyelocytes) > 1% indicates that a LEFT SHIFT is Present. Performed By: #### L 101.9900, L100.0100, L500.4050, L501.9520 ####[facility] [address] [place], [address] Lymphocytes/100 WBC (Bld) 13.7 % Low 19-41 [facility] Comment on above: Order Comment: Order Date: 09/17/24Order Info: 018- - CBCDOrder Info: [id number] - SED Performed By: #### L 101.9900, L100.0100, L500.4050, L501.9520 ####[facility] [address] [place], [address] MCH (RBC) [Entitic mass] 28.5 pg Normal 27.0-32.0 [facility] Comment on above: Order Comment: Order Date: 09/17/24Order Info: 183- - CBCDOrder Info: [id number] - SED Performed By: #### L 101.9900, L100.0100, L500.4050, L501.9520 ####[facility] [address] [place], [address] MCHC (RBC) [Mass/Vol] 33.8 g/dL Normal 32-36 [facility] Comment on above: Order Comment: Order Date: 09/17/24Order Info: 183- - CBCDOrder Info: [id number] - SED Performed By: #### L 101.9900, L100.0100, L500.4050, L501.9520 ####[facility] [address] [place], [address] MCV (RBC) [Entitic vol] 84.4 fL Normal 80-94 [facility] Comment on above: Order Comment: Order Date: 09/17/24Order Info: 183-06 - CBCDOrder Info: [id number] - SED Performed By: #### L 101.9900, L100.0100, L500.4050, L501.9520 ####[facility] [address] [place], [address] Monocytes/100 WBC (Bld) 8.7 % Normal 0-10 [facility] Comment on above: Order Comment: Order Date: 09/17/24Order Info: 183-06 - CBCDOrder Info: [id number] - SED Performed By: #### L 101.9900, L100.0100, L500.4050, L501.9520 ####[facility] [address] [place], [address] Neutrophils/100 WBC (Bld) 75.5 % High 47-70 [facility] Comment on above: Order Comment: Order Date: 09/17/24Order Info: 183- - CBCDOrder Info: [id number] - SED Performed By: #### L 101.9900, L100.0100, L500.4050, L501.9520 ####[facility] [address] [place], [address] Nucleated RBC (Bld) [#/Vol] 0 10*3/uL Normal 0-5 [facility] Comment on above: Order Comment: Order Date: 09/17/24Order Info: 183- - CBCDOrder Info: [id number] - SED Performed By: #### L 101.9900, L100.0100, L500.4050, L501.9520 ####[facility] [address] [place], [address] Platelet mean volume (Bld) [Entitic vol] 10.7 fL Normal 6.2-12.0 [facility] Comment on above: Order Comment: Order Date: 09/17/24Order Info: 183- - CBCDOrder Info: [id number] - SED Performed By: #### L 101.9900, L100.0100, L500.4050, L501.9520 ####[facility] [address] [place], [address] Platelets (Bld) [#/Vol] 250 10*3/uL Normal 150-450 [facility] Comment on above: Order Comment: Order Date: 09/17/24Order Info: 018- - CBCDOrder Info: [id number] - SED Performed By: #### L 101.9900, L100.0100, L500.4050, L501.9520 ####[facility] [address] [place], [address] RBC (Bld) [#/Vol] 4.17 10*6/uL Low 4.6-6.2 [facility] Comment on above: Order Comment: Order Date: 09/17/24Order Info: 0184- - CBCDOrder Info: [id number] - SED Performed By: #### L 101.9900, L100.0100, L500.4050, L501.9520 ####[facility] [address] [place], [address] RDW SD 47.6 fl High 35.1-43.9 [facility] Comment on above: Order Comment: Order Date: 09/17/24Order Info: 0184- - CBCDOrder Info: [id number] - SED Performed By: #### L 101.9900, L100.0100, L500.4050, L501.9520 ####[facility] [address] [place], [address] WBC (Bld) [#/Vol] 5.8 10*3/uL Normal 4.4-11.0 [facility] Comment on above: Order Comment: Order Date: 09/17/24Order Info: 0184- - CBCDOrder Info: [id number] - SED Performed By: #### L 101.9900, L100.0100, L500.4050, L501.9520 ####[facility] [address] [place], [address] CRPon 09-18-2024 C-REACTIVE PROT 3.99 mg/L High 0.0-3.0 [facility] Comment on above: Order Comment: Order Date: 09/17/24Order Info: 0786-1 - CMPOrder Info: [id number] - CRPOrder Info: 3016-3 - TSH Performed By: #### L 501.6710 ####[facility] [address] [place], [address] CRP [Mass/Vol]Ordered By: Itzel Han on 09-18-2024 C-Reactive Protein Extended Range 3.99 mg/L High 0.0-3.0 [facility] Carbon dioxide, total [Moles /volume] in Central venous bloodOrdered By: Kelvin Han on 09-18-2024 CO2 [Moles/Vol] 20.5 mmol/L Low 21.0-32.0 [facility] Centromere B antibody assayO rdered By: Kelvin Han on 09-18-2024 Centromere B Antibody TNP [facility] Comment on above: Test not performed Chloride assayOrdered By: Itzel Han on 09-18-2024 Chloride [Moles/Vol] 106 mmol/L 98-108 [facility] Chromatin antibody assayOrde red By: Kelvin Han on 09-18-2024 Antichromatin Antibodies TNP [facility] Comment on above: Test not performed Comprehensive Metabolic Prof ilon 09-18-2024 Albumin [Mass/Vol] 3.8 g/dL Normal 3.4-4.8 [facility] Comment on above: Order Comment: Order Date: 09/17/24Order Info: 0786-1 - CMPOrder Info: [id number] - CRPOrder Info: 301-3 - TSH Performed By: #### L 101.9900, L100.0100, L500.4050, L501.9520 ####[facility] [address] [facility] [place], [place], [id number] Albumin/Globulin [Mass ratio] 1.0 {ratio} Normal 0.9-2.4 [facility] Comment on above: Order Comment: Order Date: 09/17/24Order Info: 0786-1 - CMPOrder Info: [id number] - CRPOrder Info: 3016-3 - TSH Performed By: #### L 101.9900, L100.0100, L500.4050, L501.9520 ####[facility] [address] [facility] [place], [place], [id number] ALK PHOS 81 U/L Normal 40-129 [facility] Comment on above: Order Comment: Order Date: 09/17/24Order Info: 0786-1 - CMPOrder Info: [id number] - CRPOrder Info: 3016-3 - TSH Performed By: #### L 101.9900, L100.0100, L500.4050, L501.9520 ####[facility] [address] [place], [address] ALT [Catalytic activity/Vol] 18 U/L Normal <=46 [facility] Comment on above: Order Comment: Order Date: 09/17/24Order Info: 0786-1 - CMPOrder Info: [id number] - CRPOrder Info: 3015-3 - TSH Performed By: #### L 101.9900, L100.0100, L500.4050, L501.9520 ####[facility] [address] [place], [address] AST [Catalytic activity/Vol] 26 U/L Normal <=37 [facility] Comment on above: Order Comment: Order Date: 09/17/24Order Info: 0786-1 - CMPOrder Info: [id number] - CRPOrder Info: 3015-3 - TSH Performed By: #### L 101.9900, L100.0100, L500.4050, L501.9520 ####[facility] [address] [place], [address] Bilirubin [Mass/Vol] 0.36 mg/dL Normal 0.00-1.30 [facility] Comment on above: Order Comment: Order Date: 09/17/24Order Info: 0786-1 - CMPOrder Info: [id number] - CRPOrder Info: 301-3 - TSH Performed By: #### L 101.9900, L100.0100, L500.4050, L501.9520 ####[facility] [address] [place], [address] BUN/CRE 15.4 RATIO Normal 10-20 [facility] Comment on above: Order Comment: Order Date: 09/17/24Order Info: 0786-1 - CMPOrder Info: [id number] - CRPOrder Info: 3016-3 - TSH Performed By: #### L 101.9900, L100.0100, L500.4050, L501.9520 ####[facility] [address] [place], [address] Calcium [Mass/Vol] 9.3 mg/dL Normal 7.6-11.0 [facility] Comment on above: Order Comment: Order Date: 09/17/24Order Info: 0786-1 - CMPOrder Info: [id number] - CRPOrder Info: 3 - TSH Performed By: #### L 101.9900, L100.0100, L500.4050, L501.9520 ####[facility] [address] [place], [address] Chloride [Moles/Vol] 106 mmol/L Normal 98-108 [facility] Comment on above: Order Comment: Order Date: 09/17/24Order Info: 0786-1 - CMPOrder Info: [id number] - CRPOrder Info: 3 - TSH Performed By: #### L 101.9900, L100.0100, L500.4050, L501.9520 ####[facility] [address] [place], [address] CO2 [Moles/Vol] 20.5 mmol/L Low 21.0-32.0 [facility] Comment on above: Order Comment: Order Date: 09/17/24Order Info: 0786-1 - CMPOrder Info: [id number] - CRPOrder Info: 3 - TSH Performed By: #### L 101.9900, L100.0100, L500.4050, L501.9520 ####[facility] [address] [place], [address] Creatinine [Mass/Vol] 1.01 mg/dL Normal 0.70-1.20 [facility] Comment on above: Order Comment: Order Date: 09/17/24Order Info: [id number] - CMPOrder Info: [id number] - CRPOrder Info: 3 - TSH Performed By: #### L 101.9900, L100.0100, L500.4050, L501.9520 ####[facility] [address] [place], [address] GAP 12 Normal 5-15 [facility] Comment on above: Order Comment: Order Date: 09/17/24Order Info: [id number] - CMPOrder Info: [id number] - CRPOrder Info: [id number] - TSH Performed By: #### L 101.9900, L100.0100, L500.4050, L501.9520 ####[facility] [address] [place], [address] GFR/1.73 sq M.predicted among non-blacks MDRD (S/P/Bld) [Vol rate/Area] 77 mL/min/{1.73_m2} Normal >60 [facility] Comment on above: Order Comment: Order Date: 09/17/24Order Info: [id number]- - CMPOrder Info: [id number] - CRPOrder Info: [id number] - TSH Result Comment: mL/m in/1.73m2 CKD-EPI Creatinine Equation (2020) Performed By: #### L 101.9900, L100.0100, L500.4050, L501.9520 ####[facility] [address] [place], [address] Globulin (S) [Mass/Vol] 3.6 g/dL Normal 2.2-4.2 [facility] Comment on above: Order Comment: Order Date: 09/17/24Order Info: [id number] - CMPOrder Info: [id number] - CRPOrder Info: [id number] - TSH Performed By: #### L 101.9900, L100.0100, L500.4050, L501.9520 ####[facility] [address] [place], [address] Glucose [Mass/Vol] 109 mg/dL High 70-99 [facility] Comment on above: Order Comment: Order Date: 09/17/24Order Info: [id number] - CMPOrder Info: [id number] - CRPOrder Info: 6-3 - TSH Performed By: #### L 101.9900, L100.0100, L500.4050, L501.9520 ####[facility] [address] [place], [address] Potassium [Moles/Vol] 4.0 mmol/L Normal 3.3-5.1 [facility] Comment on above: Order Comment: Order Date: 09/17/24Order Info: [id number] - CMPOrder Info: [id number] - CRPOrder Info: 6-3 - TSH Performed By: #### L 101.9900, L100.0100, L500.4050, L501.9520 ####[facility] [address] [place], [address] Sodium [Moles/Vol] 138 mmol/L Normal 133-145 [facility] Comment on above: Order Comment: Order Date: 09/17/24Order Info: [id number] - CMPOrder Info: [id number] - CRPOrder Info: [id number] - TSH Performed By: #### L 101.9900, L100.0100, L500.4050, L501.9520 ####[facility] [address] [place], [address] T PROT 7.3 g/dL Normal 5.9-8.4 [facility] Comment on above: Order Comment: Order Date: 09/17/24Order Info: [id number] - CMPOrder Info: [id number] - CRPOrder Info: [id number] - TSH Performed By: #### L 101.9900, L100.0100, L500.4050, L501.9520 ####[facility] [address] [place], [address] Urea nitrogen [Mass/Vol] 16 mg/dL Normal 4-19 [facility] Comment on above: Order Comment: Order Date: 09/17/24Order Info: [id number] - CMPOrder Info: [id number] - CRPOrder Info: [id number] - TSH Performed By: #### L 101.9900, L100.0100, L500.4050, L501.9520 ####[facility] [address] [place], [place], [id number] DNA double strand Ab Qn (S)O rdered By: Kelvin Han on 09-18-2024 Anti-Double Strand DNA Antibody TNP [facility] Comment on above: Test not performed Diagnostic total prostate sp ecific antigen (PSA) measurementOrdered By: Kelvin Han on 09-18-2024 Prostate Specific Antigen Total < 0.02 ng/mL 0.00-4.00 [facility] Comment on above: This test was perfor [...] 09-18-2024 Eosinophils/100 WBC (Bld) 1.2 % 0-5 [facility] Erythrocyte Sed Rateon 09-18 SED RATE 25 mm/hr High 0-20 [facility] Comment on above: Order Comment: Order Date: 09/17/24Order Info: [id number] - CBCDOrder Info: [id number] - SED Performed By: #### L 101.9900, L100.0100, L500.4050, L501.9520 ####[facility] [address] [place], [address] Erythrocyte distribution wid th (RBC) [Ratio]Ordered By: Kelvin Han on 09-18-2024 Erythrocyte distribution width (RBC) [Entitic vol] 47.6 fL High 35.1-43.9 [facility] Erythrocyte distribution wid th ratioOrdered By: Kelvin aHn on 09-18-2024 Erythrocyte distribution width (RBC) [Ratio] 15.5 % High 11.6-14.6 [facility] Erythrocyte distribution wid th standard deviationOrdered By: Kelvin Han on 09-18-2024 Erythrocyte distribution width (RBC) [Ratio] 47.6 fl High 35.1-43.9 [facility] Erythrocyte sedimentation ra teOrdered By: Kelvin Han on 09-18-2024 ESR (Bld) [Velocity] 25 mm/h High 0-20 [facility] GFR/1.73 sq M.predicted tobias g non-blacks MDRD (S/P/Bld) [Vol rate/Area]Ordered By: Kelvin Hna on 09-18-2024 Estimated GFR (MDRD) Non-Af Amer 77 >60 [facility] Comment on above: mL/min/1.73m2 CKD-EP I Creatinine Equation (2020) Glomerular filtration rate ( GFR) estimation/1.73 sq m using serum, plasma, or whole bOrdered By: Kelvin Han on 09-18-2024 GFR/1.73 sq M.predicted among non-blacks MDRD (S/P/Bld) [Vol rate/Area] 77 mL/min/{1.73_m2} >60 [facility] Comment on above: mL/min/1.73m2 CKD-EP I Creatinine Equation (2020) Hematocrit Auto (Bld) [Volum e fraction]Ordered By: Kelvin Han on 09-18-2024 Hematocrit (Bld) [Volume fraction] 35.2 % Low 40-54 [facility] Hemoglobin measurementOrdere d By: Kelvin Han on 09-18-2024 Hemoglobin (Bld) [Mass/Vol] 11.9 g/dL Low 13.0-16.5 [facility] Immature granulocytes/100 WB C Auto (Bld)Ordered By: Kelvin Han on 09-18-2024 Immature granulocytes/100 WBC (Bld) 0.700 % 0.0-0.9 [facility] Comment on above: IG% - Immature Granu locytes (promyelocytes, myelocytes and metamyelocytes) > 1% indicates that a LEFT SHIFT is Present. Misty-1 antibody assayOrdered B y: Kelvin Han on 09-18-2024 MISTY-1 Antibody TNP [facility] Comment on above: Test not performed Laboratory - Chemistry and C hemistry - challengeOrdered By: Kelvin Han on 09-18-2024 AST [Catalytic activity/Vol] 26 U/L <38 [facility] Lymphocytes Auto (Unsp spec) [#/Vol]Ordered By: Kelvin Han on 09-18-2024 Lymphocytes (Bld) [#/Vol] 0.79 10*3/uL Low 0.83-4.51 [facility] Lymphocytes/100 WBC Auto (Un sp spec)Ordered By: Kelvin Han on 09-18-2024 Lymphocytes/100 WBC (Bld) 13.7 % Low 19-41 [facility] MCV (mean corpuscular volume ) determinationOrdered By: Kelvin Han on 09-18-2024 MCV (RBC) [Entitic vol] 84.4 fL 80-94 [facility] Mean corpuscular hemoglobin (MCH) determinationOrdered By: Kelvin Han on 09-18-2024 MCH (RBC) [Entitic mass] 28.5 pg 27.0-32.0 [facility] Mean corpuscular hemoglobin concentration (MCHC) determinationOrdered By: Kelvin Han on 09-18-2024 MCHC (RBC) [Mass/Vol] 33.8 g/dL 32-36 [facility] Mean platelet volume determi nationOrdered By: Kelvin Han on 09-18-2024 Platelet mean volume (Bld) [Entitic vol] 10.7 fL 6.2-12.0 [facility] Monocyte percentageOrdered B y: Kelvin Han on 09-18-2024 Monocytes/100 WBC (Bld) 8.7 % 0-10 [facility] Neutrophil percentageOrdered By: Kelvin Han on 09-18-2024 Neutrophils/100 WBC (Bld) 75.5 % High 47-70 [facility] No Panel InformationOrdered By: Kelvin Han on 09-18-2024 CELSA 8 Profile TNP [facility] Comment on above: Test not performed CELSA 8 Profile Comment . [facility] Comment on above: Autoantibody Disease Association Condition [...] Ribosomal P SLE 10 - 20%Performed at: [address] [id number] Director: Basilio Ricci PhD, Phone: [phone] reported result: TNP Edited by: ARACELI on 09/25/24:1108 AMENDED REPORT 09/25/24 1108 COMMENT previously reported as: Test not performed Nucleated red blood cell per centageOrdered By: Kelvin Han on 09-18-2024 Nucleated RBC/100 WBC (Bld) [Ratio] 0 % 0-5 [facility] PSA,Total- Diagnosticon 09-04 PSA, DIAGNOSTIC < 0.02 Normal 0.00-4.00 [facility] Comment on above: Order Comment: Order Date: 09/17/24Order Info: [id number] - CMPOrder Info: [id number] - CRPOrder Info: [id number] - TSH Result [...] Performed By: #### L 3100.5430, L3100.5440, L501.9940 ####[facility] [address] [place], [address] Platelet countOrdered By: Itzel Han on 09-18-2024 Platelets (Bld) [#/Vol] 250 10*3/uL 150-450 [facility] Potassium (Unsp spec) [Mass/ Vol]Ordered By: Kelvin Han on 09-18-2024 Potassium [Moles/Vol] 4.0 mmol/L 3.3-5.1 [facility] Potassium measurement (mass/ volume)Ordered By: Kelvin Han on 09-18-2024 Potassium (Unsp spec) [Mass/Vol] 4.0 mmol/L 3.3-5.1 [facility] RBC Auto (Bld) [#/Vol]Ordere d By: Kelvin Han on 09-18-2024 RBC (Bld) [#/Vol] 4.17 10*6/uL Low 4.6-6.2 [facility] LABOR CONTRACTOR abOrdered By: Eduardo Han on 09-18-2024 LABOR CONTRACTOR Antibody TNP [facility] Comment on above: Test not performed Ribosomal P protein antibody assayOrdered By: Kelvin Han on 09-18-2024 Ribosomal P Protein Antibody TNP [facility] Comment on above: Test not performed Ribosomal P protein antibody assay 0.3 AI 0.0-0.9 [facility] Comment on above: Previous reported re sult: TNP AIEdited by: ARACELI on 09/25/24:1108 AMENDED REPORT 09/25/24 1108 Anti-P previously reported as: Test not performed SCL-70 extractable nuclear A b Qn (S)Ordered By: Kelvin Han on 09-18-2024 Scl-70 (Scleroderma) Antibody TNP [facility] Comment on above: Test not performed SS-A IgG antibody assayOrder ed By: Kelvin Han on 09-18-2024 SS-A/Ro IgG Antibody TNP [facility] Comment on above: Test not performed SS-B IgG antibody assayOrder ed By: Kelvin Han on 09-18-2024 SS-B/La IgG Antibody [facility] Comment on above: Test not performed Serum DNA double strand anti body assay (units/volume)Ordered By: Kelvin Han on 09-18-2024 DNA double strand Ab Qn (S) 3 [IU]/mL 0-9 [facility] Comment on above: Negative <5 Equivoca l 5 - 9 Positive >9Previous reported result: TNP IU/mLEdited by: ARACELI on 09/25/24:1108 AMENDED REPORT 09/25/24 1108 dsDNA AB previously reported as: Test not performed Serum Scl-70 antibody assay (units/volume)Ordered By: Kelvin Han on 09-18-2024 SCL-70 extractable nuclear Ab Qn (S) <0.2 AI 0.0-0.9 [facility] Comment on above: Previous reported re sult: TNP AIEdited by: ARACELI on 09/25/24:1108 AMENDED REPORT 09/25/24 1108 ANTISCLER previously reported as: Test not performed Serum creatinine measurement (mass/volume)Ordered By: Kelvin Han on 09-18-2024 Creatinine [Mass/Vol] 1.01 mg/dL 0.70-1.20 [facility] Serum globulin measurementOr dered By: Kelvin Han on 09-18-2024 Globulin (S) [Mass/Vol] 3.6 g/dL 2.2-4.2 [facility] Serum glucose measurement (m ass/volume)Ordered By: Kelvin Han on 09-18-2024 Glucose [Mass/Vol] 109 mg/dL High 70-99 [facility] Serum or plasma C reactive p rotein measurement (mass/volume)Ordered By: Kelvin Han on 09-18-2024 CRP [Mass/Vol] 3.99 mg/L High 0.0-3.0 [facility] Serum or plasma alanine morris otransferase (ALT) measurementOrdered By: Kelvin Han on 09-18-2024 ALT [Catalytic activity/Vol] 18 U/L <47 [facility] Serum or plasma albumin janusz urement (mass/volume)Ordered By: Kelvin Han on 09-18-2024 Albumin [Mass/Vol] 3.8 g/dL 3.4-4.8 [facility] Serum or plasma albumin/glob ulin mass ratioOrdered By: Kelvin Han on 09-18-2024 Albumin/Globulin [Mass ratio] 1.0 {ratio} 0.9-2.4 [facility] Serum or plasma alkaline trice sphatase measurementOrdered By: Kelvin Han on 09-18-2024 ALP [Catalytic activity/Vol] 81 U/L 40-129 [facility] Serum or plasma calcium janusz urement (mass/volume)Ordered By: Kelvin Han on 09-18-2024 Calcium [Mass/Vol] 9.3 mg/dL 7.6-11.0 [facility] Serum or plasma urea nitroge n measurement (mass/volume)Ordered By: Kelvin Han on 09-18-2024 Urea nitrogen [Mass/Vol] 16 mg/dL 4-19 [facility] Hodges antibody assayOrdered By: Kelvin Han on 09-18-2024 SM Antibody TNP [facility] Comment on above: Test not performed Sodium levelOrdered By: Panfilo Han on 09-18-2024 Sodium [Moles/Vol] 138 mmol/L 133-145 [facility] TSH DL <= 0.005 mIU/L QnOrde red By: Kelvin Han on 09-18-2024 Thyroid Stimulating Hormone (TSH) 1.440 uIU/mL 0.300-4.200 [facility] TSH Qn 1.440 uIU/mL 0.300-4.200 [facility] Thyroid Stim Hormone (TSH)on 09-18-2024 TSH 1.440 uIU/mL Normal 0.300-4.200 [facility] Comment on above: Order Comment: Order Date: 09/17/24Order Info: [id number] - CMPOrder Info: [id number] - CRPOrder Info: [id number] - TSH Performed By: #### L 101.9900, L100.0100, L500.4050, L501.9520 ####[facility] [address] [place], [address] Total proteinOrdered By: Yamila lizzy Guille on 09-18-2024 Protein [Mass/Vol] 7.3 g/dL 5.9-8.4 [facility] White blood cell (WBC) count Ordered By: Kelvin Han on 09-18-2024 WBC (Bld) [#/Vol] 5.8 10*3/uL 4.4-11.0 [facility] CBC W/Diff, Automatedon 0 PATH REV N/A Normal [facility] Comment on above: Result Comment: AMENDED REPORT 09/09/24 180 PATH REV previously reported as: October deric Performed By: #### L 100.0100, L500.2500 ####[facility] [address] [place], [address] Basic Metabolic Profile (BMP )on 08-22-2024 BUN Normal - [facility] Comment on above: Result Comment: Canc elled via OM: Order cancelled - Patient discharged Performed By: #### L 100.0100, L500.2500 ####[facility] [address] [place], [address] BUN/CRE Normal - [facility] Comment on above: Result Comment: Canc elled via OM: Order cancelled - Patient discharged Performed By: #### L 100.0100, L500.2500 ####[facility] [address] [place], [address] Calcium Normal 7.6-11.0 [facility] Comment on above: Result Comment: Canc elled via OM: Order cancelled - Patient discharged Performed By: #### L 100.0100, L500.2500 ####[facility] [address] [place], [address] CL Normal 98-108 [facility] Comment on above: Result Comment: Canc elled via OM: Order cancelled - Patient discharged Performed By: #### L 100.0100, L500.2500 ####[facility] [address] [place], [address] CO2 Normal 21.0-32.0 [facility] Comment on above: Result Comment: Canc elled via OM: Order cancelled - Patient discharged Performed By: #### L 100.0100, L500.2500 ####[facility] [address] [place], [address] CREAT,SERUM Normal 0.70-1.20 [facility] Comment on above: Result Comment: Canc elled via OM: Order cancelled - Patient discharged Performed By: #### L 100.0100, L500.2500 ####[facility] [address] [place], [address] eGFR Normal >60 [facility] Comment on above: Result Comment: Canc elled via OM: Order cancelled - Patient discharged Performed By: #### L 100.0100, L500.2500 ####[facility] [address] [place], [address] GAP Normal 5-15 [facility] Comment on above: Result Comment: Canc elled via OM: Order cancelled - Patient discharged Performed By: #### L 100.0100, L500.2500 ####[facility] [address] [place], [address] GLU Normal 70-99 [facility] Comment on above: Result Comment: Canc elled via OM: Order cancelled - Patient discharged Performed By: #### L 100.0100, L500.2500 ####[facility] [address] [place], [address] Potassium Normal 3.3-5.1 [facility] Comment on above: Result Comment: Canc elled via OM: Order cancelled - Patient discharged Performed By: #### L 100.0100, L500.2500 ####[facility] [address] [place], [address] Basic Metabolic Profile (BMP) Normal 133-145 [facility] Comment on above: Result Comment: Canc elled via OM: Order cancelled - Patient discharged Performed By: #### L 100.0100, L500.2500 ####[facility] [address] [place], [address] CBC W/Diff, Automatedon 08-04 Absolute Neut Normal 2.0-7.7 [facility] Comment on above: Result Comment: Canc elled via OM: Order cancelled - Patient discharged Performed By: #### L 100.0100, L500.2500 ####[facility] [address] [place], [address] HCT Normal 40-54 [facility] Comment on above: Result Comment: Canc elled via OM: Order cancelled - Patient discharged Performed By: #### L 100.0100, L500.2500 ####[facility] [address] [place], [address] HGB Normal 13.0-16.5 [facility] Comment on above: Result Comment: Canc elled via OM: Order cancelled - Patient discharged Performed By: #### L 100.0100, L500.2500 ####[facility] [address] [place], [address] MCH Normal 27.0-32.0 [facility] Comment on above: Result Comment: Canc elled via OM: Order cancelled - Patient discharged Performed By: #### L 100.0100, L500.2500 ####[facility] [address] [place], [address] MCHC Normal 32-36 [facility] Comment on above: Result Comment: Canc elled via OM: Order cancelled - Patient discharged Performed By: #### L 100.0100, L500.2500 ####[facility] [address] [place], [address] MCV Normal 80-94 [facility] Comment on above: Result Comment: Canc elled via OM: Order cancelled - Patient discharged Performed By: #### L 100.0100, L500.2500 ####[facility] [address] [place], [address] NEUT% Normal 47-70 [facility] Comment on above: Result Comment: Canc elled via OM: Order cancelled - Patient discharged Performed By: #### L 100.0100, L500.2500 ####[facility] [address] [place], [address] PLT Normal 150-450 [facility] Comment on above: Result Comment: Canc elled via OM: Order cancelled - Patient discharged Performed By: #### L 100.0100, L500.2500 ####[facility] [address] [place], [address] RBC Normal 4.6-6.2 [facility] Comment on above: Result Comment: Canc elled via OM: Order cancelled - Patient discharged Performed By: #### L 100.0100, L500.2500 ####[facility] [address] [place], [address] RDW CV Normal 11.6-14.6 [facility] Comment on above: Result Comment: Canc elled via OM: Order cancelled - Patient discharged Performed By: #### L 100.0100, L500.2500 ####[facility] [address] [place], [address] RDW SD Normal 35.1-43.9 [facility] Comment on above: Result Comment: Canc elled via OM: Order cancelled - Patient discharged Performed By: #### L 100.0100, L500.2500 ####[facility] [address] [place], [address] WBC Normal 4.4-11.0 [facility] Comment on above: Result Comment: Canc elled via OM: Order cancelled - Patient discharged Performed By: #### L 100.0100, L500.2500 ####[facility] [address] [place], [address] Basic Metabolic Profile (BMP )on 08-21-2024 BUN Normal 4-19 [facility] Comment on above: Result Comment: Canc elled via OM: Order cancelled - Patient discharged Performed By: #### L 500.2500, L100.0100 ####[facility] [address] [place], [address] BUN/CRE Normal 10-20 [facility] Comment on above: Result Comment: Canc elled via OM: Order cancelled - Patient discharged Performed By: #### L 500.2500, L100.0100 ####[facility] [address] [place], [address] Calcium Normal 7.6-11.0 [facility] Comment on above: Result Comment: Canc elled via OM: Order cancelled - Patient discharged Performed By: #### L 500.2500, L100.0100 ####[facility] [address] [place], [address] CL Normal 98-108 [facility] Comment on above: Result Comment: Canc elled via OM: Order cancelled - Patient discharged Performed By: #### L 500.2500, L100.0100 ####[facility] [address] [place], [address] CO2 Normal 21.0-32.0 [facility] Comment on above: Result Comment: Canc elled via OM: Order cancelled - Patient discharged Performed By: #### L 500.2500, L100.0100 ####[facility] [address] [place], [address] CREAT,SERUM Normal 0.70-1.20 [facility] Comment on above: Result Comment: Canc elled via OM: Order cancelled - Patient discharged Performed By: #### L 500.2500, L100.0100 ####[facility] [address] [place], [address] eGFR Normal >60 [facility] Comment on above: Result Comment: Canc elled via OM: Order cancelled - Patient discharged Performed By: #### L 500.2500, L100.0100 ####[facility] [address] [place], [address] GAP Normal 5-15 [facility] Comment on above: Result Comment: Canc elled via OM: Order cancelled - Patient discharged Performed By: #### L 500.2500, L100.0100 ####[facility] [address] [place], [address] GLU Normal 70-99 [facility] Comment on above: Result Comment: Canc elled via OM: Order cancelled - Patient discharged Performed By: #### L 500.2500, L100.0100 ####[facility] [address] [place], [address] Potassium Normal 3.3-5.1 [facility] Comment on above: Result Comment: Canc elled via OM: Order cancelled - Patient discharged Performed By: #### L 500.2500, L100.0100 ####[facility] [address] [place], [address] Basic Metabolic Profile (BMP) Normal 133-145 [facility] Comment on above: Result Comment: Canc elled via OM: Order cancelled - Patient discharged Performed By: #### L 500.2500, L100.0100 ####[facility] [address] [place], [address] CBC W/Diff, Automatedon 03- Absolute Neut Normal 2.0-7.7 [facility] Comment on above: Result Comment: Canc elled via OM: Order cancelled - Patient discharged Performed By: #### L 500.2500, L100.0100 ####[facility] [address] [place], [address] HCT Normal 40-54 [facility] Comment on above: Result Comment: Canc elled via OM: Order cancelled - Patient discharged Performed By: #### L 500.2500, L100.0100 ####[facility] [address] [place], [address] HGB Normal 13.0-16.5 [facility] Comment on above: Result Comment: Canc elled via OM: Order cancelled - Patient discharged Performed By: #### L 500.2500, L100.0100 ####[facility] [address] [place], [address] MCH Normal 27.0-32.0 [facility] Comment on above: Result Comment: Canc elled via OM: Order cancelled - Patient discharged Performed By: #### L 500.2500, L100.0100 ####[facility] [address] [place], [address] MCHC Normal 32-36 [facility] Comment on above: Result Comment: Canc elled via OM: Order cancelled - Patient discharged Performed By: #### L 500.2500, L100.0100 ####[facility] [address] [place], [address] MCV Normal 80-94 [facility] Comment on above: Result Comment: Canc elled via OM: Order cancelled - Patient discharged Performed By: #### L 500.2500, L100.0100 ####[facility] [address] [place], [address] NEUT% Normal 47-70 [facility] Comment on above: Result Comment: Canc elled via OM: Order cancelled - Patient discharged Performed By: #### L 500.2500, L100.0100 ####[facility] [address] [place], [address] PLT Normal 150-450 [facility] Comment on above: Result Comment: Canc elled via OM: Order cancelled - Patient discharged Performed By: #### L 500.2500, L100.0100 ####[facility] [address] [place], [address] RBC Normal 4.6-6.2 [facility] Comment on above: Result Comment: Canc elled via OM: Order cancelled - Patient discharged Performed By: #### L 500.2500, L100.0100 ####[facility] [address] [place], [address] RDW CV Normal 11.6-14.6 [facility] Comment on above: Result Comment: Canc elled via OM: Order cancelled - Patient discharged Performed By: #### L 500.2500, L100.0100 ####[facility] [address] [place], [address] RDW SD Normal 35.1-43.9 [facility] Comment on above: Result Comment: Canc elled via OM: Order cancelled - Patient discharged Performed By: #### L 500.2500, L100.0100 ####[facility] [address] [place], [address] WBC Normal 4.4-11.0 [facility] Comment on above: Result Comment: Canc elled via OM: Order cancelled - Patient discharged Performed By: #### L 500.2500, L100.0100 ####[facility] [address] [place], [address] Absolute lymphocyte countOrd ered By: Juany Souza on 08-20-2024 Lymphocytes Auto (Unsp spec) [#/Vol] 0.88 10*3/uL 0.83-4.51 [facility] Absolute neutrophil countOrd ered By: Juany Souza on 08-20-2024 Neutrophils (Bld) [#/Vol] 5.9 10*3/uL 2.0-7.7 [facility] Anion gap in Serum or Plasma Ordered By: Juany Souza on 08-20-2024 Anion gap [Moles/Vol] 10 mmol/L 10-18 [facility] BUN/creatinine ratioOrdered By: Juany Souza on 08-20-2024 Urea nitrogen/Creatinine [Mass ratio] 10.0 mg/mg 03-25 [facility] Basic Metabolic Profile (BMP )on 08-20-2024 BUN/CRE 10.0 RATIO Normal 03-25 [facility] Comment on above: Performed By: #### L 100.0100, L500.2500 ####[facility] [address] [place], [address] Calcium [Mass/Vol] 8.4 mg/dL Normal 7.6-11.0 [facility] Comment on above: Performed By: #### L 100.0100, L500.2500 ####[facility] [address] [place], [address] Chloride [Moles/Vol] 107 mmol/L Normal 98-108 [facility] Comment on above: Performed By: #### L 100.0100, L500.2500 ####[facility] [address] [place], [address] CO2 [Moles/Vol] 20.6 mmol/L Low 21.0-32.0 [facility] Comment on above: Performed By: #### L 100.0100, L500.2500 ####[facility] [address] [place], [address] Creatinine [Mass/Vol] 1.18 mg/dL Normal 0.70-1.20 [facility] Comment on above: Performed By: #### L 100.0100, L500.2500 ####[facility] [address] [place], [address] ECRCL 59.31 ml/min Normal 50-250 [facility] Comment on above: Performed By: #### L 100.0100, L500.2500 ####[facility] [address] [place], [address] GAP 10 Normal 5-15 [facility] Comment on above: Performed By: #### L 100.0100, L500.2500 ####[facility] [address] [place], [address] GFR/1.73 sq M.predicted among non-blacks MDRD (S/P/Bld) [Vol rate/Area] 64 mL/min/{1.73_m2} Normal >60 [facility] Comment on above: Result Comment: mL/m in/1.73m2 CKD-EPI Creatinine Equation (2020) Performed By: #### L 100.0100, L500.2500 ####[facility] [address] [place], [address] Glucose [Mass/Vol] 98 mg/dL Normal 70-99 [facility] Comment on above: Performed By: #### L 100.0100, L500.2500 ####[facility] [address] [place], [address] Potassium [Moles/Vol] 3.9 mmol/L Normal 3.3-5.1 [facility] Comment on above: Performed By: #### L 100.0100, L500.2500 ####[facility] [address] [place], [address] Sodium [Moles/Vol] 137 mmol/L Normal 133-145 [facility] Comment on above: Performed By: #### L 100.0100, L500.2500 ####[facility] [address] [place], [place], [address] Urea nitrogen [Mass/Vol] 12 mg/dL Normal 4-19 [facility] Comment on above: Performed By: #### L 100.0100, L500.2500 ####[facility] [address] [place], [place], [address] Blood eosinophils/100 leukoc ytesOrdered By: Juany Souza on 08-20-2024 Eosinophils/100 WBC (Bld) 4 % 0-5 [facility] Blood lymphocytes/100 leukoc ytesOrdered By: Juany Souza on 08-20-2024 Lymphocytes/100 WBC (Bld) 11 % Low 19-41 [facility] Blood metamyelocytes/100 krystle kocytesOrdered By: Juany Souza on 08-20-2024 Metamyelocytes/100 WBC (Bld) 1 % 0-1 [facility] Blood monocytes/100 leukocyt esOrdered By: Juany Souza on 08-20-2024 Monocytes/100 WBC (Bld) 7 % 0-10 [facility] Blood promyelocytes/100 leuk ocytesOrdered By: Juany Souza on 08-20-2024 Promyelocytes/100 WBC (Bld) 1 % High 0-0 [facility] Blood segmented neutrophils/ 100 leukocytesOrdered By: Juany Souza on 08-20-2024 Segmented neutrophils/100 WBC (Bld) 73 % High 47-70 [facility] Carbon dioxide, total [Moles /volume] in Central venous bloodOrdered By: Juany Souza on 08-20-2024 CO2 [Moles/Vol] 20.6 mmol/L Low 21.0-32.0 [facility] Cells counted Molgen (Bld/Ti ss) [#]Ordered By: Juany Souza on 08-20-2024 Differential Total Cells Counted 100 MANUAL DIFF [facility] Chloride assayOrdered By: Ruben Souza on 08-20-2024 Chloride [Moles/Vol] 107 mmol/L 98-108 [facility] Culture, Blood (WB)on 2024 CUB Normal [facility] Comment on above: Performed By: #### M 200.1000, L300.4310, L503.6005, L300.3900 ####[facility] [address] [place], [address] Discharge Instructionon 08-04 Discharge Instruction Normal [facility] Electrocardiogram reportOrde red By: Ambika Espinosa on 08-20-2024 EKG study [facility] [address] [place] [address] 12 Lead EKG 08/14/242133 MR#: [id number] Acct: [id number] Name: BARBARA MILAN MONI Rep #:[id number] : 1945 78 From: Ambika giordano MD Attending Dr: Dr. Jameel Herrera MD Status: ADM IN Ordering Dr: Kishore Nicolas MD Date: 04/30 Location: [facility] Sex: M C Admitted: 08/14/24 Test Reason [...] normal ECG Confirmed by JACQUIE HOOK, NEHEMIAS ([id number]), crossing guard АНДРЕЙ GROSS ([id number]) on08/20/2024 11:19:46 AM Referred By: Confirmed By: NEHEMIAS ESPINOSA MD 08/20/24 1119 Date _ Ambika Espinosa MD CC: Dr. Kelvin Han MD; Dr. Kishore Nicolas MD; Dr. Jameel Herrera MD ~ Signed [facility] Other Phone: Erythrocyte distribution wid th ratioOrdered By: Juany Souza on 08-20-2024 Erythrocyte distribution width (RBC) [Ratio] 15.1 % High 11.6-14.6 [facility] Erythrocyte distribution wid th standard deviationOrdered By: Juany Souza on 08-20-2024 Erythrocyte distribution width (RBC) [Entitic vol] 46.3 fL High 35.1-43.9 [facility] Erythrocyte distribution width (RBC) [Ratio] 46.3 fl High 35.1-43.9 [facility] Estimation of creatinine ivelisse aranceOrdered By: Juany Souza on 08-20-2024 Estimated Creatinine Clearance Calc 59.31 ml/min 50-250 [facility] GFR/1.73 sq M.predicted tobias g non-blacks MDRD (S/P/Bld) [Vol rate/Area]Ordered By: Juany Souza on 08-20-2024 Estimated GFR (MDRD) Non-Af Amer 64 >60 [facility] Comment on above: mL/min/1.73m2 CKD-EP I Creatinine Equation (2020) Glomerular filtration rate ( GFR) estimation/1.73 sq m using serum, plasma, or whole bOrdered By: Juany Souza on 08-20-2024 GFR/1.73 sq M.predicted among non-blacks MDRD (S/P/Bld) [Vol rate/Area] 64 mL/min/{1.73_m2} >60 [facility] Comment on above: mL/min/1.73m2 CKD-EP I Creatinine Equation (2020) Hematocrit Auto (Bld) [Volum e fraction]Ordered By: Juany Souza on 08-20-2024 Hematocrit (Bld) [Volume fraction] 30.0 % Low 40-54 [facility] Hemoglobin measurementOrdere d By: Juany Souza on 08-20-2024 Hemoglobin (Bld) [Mass/Vol] 10.0 g/dL Low 13.0-16.5 [facility] Lymphocytes Auto (Unsp spec) [#/Vol]Ordered By: Juany Souza on 08-20-2024 Lymphocytes (Bld) [#/Vol] 0.88 10*3/uL 0.83-4.51 [facility] MCV (mean corpuscular volume ) determinationOrdered By: Juany Souza on 08-20-2024 MCV (RBC) [Entitic vol] 83.8 fL 80-94 [facility] Mean corpuscular hemoglobin (MCH) determinationOrdered By: Juany Souza on 08-20-2024 MCH (RBC) [Entitic mass] 27.9 pg 27.0-32.0 [facility] Mean corpuscular hemoglobin concentration (MCHC) determinationOrdered By: Juany Souza on 08-20-2024 MCHC (RBC) [Mass/Vol] 33.3 g/dL 32-36 [facility] Mean platelet volume determi nationOrdered By: Juany Souza on 08-20-2024 Platelet mean volume (Bld) [Entitic vol] 10.7 fL 6.2-12.0 [facility] Myelocyte %Ordered By: Juany Souza on 08-20-2024 Myelocytes/100 WBC (Bld) 3 % High 0-0 [facility] Neutrophil percentageOrdered By: Juany Souza on 08-20-2024 Neutrophils (%) (Auto) Not Reportable [facility] Pathologist review Kristian (Unsp spec) [Interp]Ordered By: Juany Souza on 08-20-2024 Differential Pathologist's Review Fidelina leos [facility] Differential Pathologist's Review N/A [facility] Comment on above: Previous reported re sult: Fidelina leos Edited by: KAYLA on 09/09/24:1801 AMENDED REPORT 09/09/24 1801 PATH REV previously reported as: Fidelina leos Platelet countOrdered By: Ruben Souza on 08-20-2024 Platelets (Bld) [#/Vol] 250 10*3/uL 150-450 [facility] Potassium (Unsp spec) [Mass/ Vol]Ordered By: Juany Souza on 08-20-2024 Potassium [Moles/Vol] 3.9 mmol/L 3.3-5.1 [facility] Potassium measurement (mass/ volume)Ordered By: Juany Souza on 08-20-2024 Potassium (Unsp spec) [Mass/Vol] 3.9 mmol/L 3.3-5.1 [facility] Promyelocytes/100 WBC (Bld)O rdered By: Juany Souza on 08-20-2024 Promyelocytes % 1 % High 0-0 [facility] RBC Auto (Bld) [#/Vol]Ordere d By: Juany Souza on 08-20-2024 RBC (Bld) [#/Vol] 3.58 10*6/uL Low 4.6-6.2 [facility] Review by pathologistOrdered By: Juany Souza on 08-20-2024 Pathologist review Kristian (Unsp spec) [Interp] N/A [facility] Comment on above: Previous reported re sult: Fidelina leos Edited by: KAYLA on 09/09/24:1800 AMENDED REPORT 09/09/241800 PATH REV previously reported as: Fidelina leos Segmented neutrophils/100 WB C (Bld)Ordered By: Juany Souza on 08-20-2024 Neutrophils/100 WBC (Bld) 73 % High 47-70 [facility] Serum creatinine measurement (mass/volume)Ordered By: Juany Souza on 08-20-2024 Creatinine [Mass/Vol] 1.18 mg/dL 0.70-1.20 [facility] Serum glucose measurement (m ass/volume)Ordered By: Juany Souza on 08-20-2024 Glucose [Mass/Vol] 98 mg/dL 70-99 [facility] Serum or plasma calcium janusz urement (mass/volume)Ordered By: Juany Souza on 08-20-2024 Calcium [Mass/Vol] 8.4 mg/dL 7.6-11.0 [facility] Serum or plasma urea nitroge n measurement (mass/volume)Ordered By: Juany Souza on 08-20-2024 Urea nitrogen [Mass/Vol] 12 mg/dL 4-19 [facility] Sodium levelOrdered By: Martín Souza on 08-20-2024 Sodium [Moles/Vol] 137 mmol/L 133-145 [facility] Total cell countOrdered By: Juany Souza on 08-20-2024 Cells counted Molgen (Bld/Tiss) [#] 100 MANUAL DIFF [facility] Urine Cultureon 08-20-2024 URC Normal [facility] Comment on above: Performed By: #### M 100.678, M100.2200 ####[facility] [address] [place], [address] White blood cell (WBC) count Ordered By: Juany Souza on 08-20-2024 WBC (Bld) [#/Vol] 8.0 10*3/uL 4.4-11.0 [facility] Basic Metabolic Profile (BMP )on 08-19-2024 BUN/CRE 11.6 RATIO Normal 10-20 [facility] Comment on above: Performed By: #### L 100.0100, L500.2500 ####[facility] [address] [place], [address] Calcium [Mass/Vol] 8.4 mg/dL Normal 7.6-11.0 [facility] Comment on above: Performed By: #### L 100.0100, L500.2500 ####[facility] [address] [place], [address] Chloride [Moles/Vol] 107 mmol/L Normal 98-108 [facility] Comment on above: Performed By: #### L 100.0100, L500.2500 ####[facility] [address] [place], [address] CO2 [Moles/Vol] 17.2 mmol/L Low 21.0-32.0 [facility] Comment on above: Performed By: #### L 100.0100, L500.2500 ####[facility] [address] [place], [address] Creatinine [Mass/Vol] 1.18 mg/dL Normal 0.70-1.20 [facility] Comment on above: Performed By: #### L 100.0100, L500.2500 ####[facility] [address] [place], [address] ECRCL 59.31 ml/min Normal 50-250 [facility] Comment on above: Performed By: #### L 100.0100, L500.2500 ####[facility] [address] [place], [address] GAP 12 Normal 5-15 [facility] Comment on above: Performed By: #### L 100.0100, L500.2500 ####[facility] [address] [place], [address] GFR/1.73 sq M.predicted among non-blacks MDRD (S/P/Bld) [Vol rate/Area] 64 mL/min/{1.73_m2} Normal >60 [facility] Comment on above: Result Comment: mL/m in/1.73m2 CKD-EPI Creatinine Equation (2020) Performed By: #### L 100.0100, L500.2500 ####[facility] [address] [place], [address] Glucose [Mass/Vol] 103 mg/dL High 70-99 [facility] Comment on above: Performed By: #### L 100.0100, L500.2500 ####[facility] [address] [place], [address] Potassium [Moles/Vol] 3.9 mmol/L Normal 3.3-5.1 [facility] Comment on above: Performed By: #### L 100.0100, L500.2500 ####[facility] [address] [place], [address] Sodium [Moles/Vol] 136 mmol/L Normal 133-145 [facility] Comment on above: Performed By: #### L 100.0100, L500.2500 ####[facility] [address] [place], [address] Urea nitrogen [Mass/Vol] 14 mg/dL Normal 4-19 [facility] Comment on above: Performed By: #### L 100.0100, L500.2500 ####[facility] [address] [place], [address] Blood schistocyte detection by light microscopyOrdered By: Juany Souza on 08-19-2024 Schistocytes LM Ql (Bld) RARE [facility] C. difficile DNA MARYJANE+probe Q l (Unsp spec)Ordered By: Juany Souza on 08-19-2024 Clostridioides difficile (PCR) [facility] CDIFF (PCR)on 08-19-2024 CDIFF Is the patient receiving laxatives? N New/unexplained onset of 3 or more stools in past 24 hrs? Y Pending 027 027 NAP1-B1 Presumptive Negative *for epidemiolologic???us e C. Diff PCR Negative- No toxigenic C. Diff Detected Normal [facility] Comment on above: Performed By: #### M 100.6796, M100.637 ####[facility] [address] [place], [place], [address] Clostridium difficile detect ion by polymerase chain reactionOrdered By: Juany Souza on 08-19-2024 C. difficile DNA MARYJANE+probe Ql (Unsp spec) [facility] ENTERIC PATHOGEN PANEL STOOL on 08-19-2024 EP PANEL Normal [facility] Comment on above: Performed By: #### M 1006796, M100.637 ####[facility] [address] [facility] [place], [place], [address] Microcytosis evaluation pane lOrdered By: Juany Souza on 08-19-2024 Microcytosis 1+ [facility] Ovalocyte detectionOrdered B y: Juany Souza on 08-19-2024 Ovalocytes LM Ql (Bld) 2+ [facility] Ovalocytes LM Ql (Bld)Ordere d By: Juany Souza on 08-19-2024 Ovalocytes 2+ [facility] Platelet estimateOrdered By: Juany Souza on 08-19-2024 Platelets LM Ql (Bld) ADEQUATE ADEQ [facility] Platelets LM Ql (Bld)Ordered By: Juany Souza on 08-19-2024 Platelet Estimate [facility] Schistocytes LM Ql (Bld)Orde red By: Juany Souza on 08-19-2024 Schistocytes RARE [facility] Stool enteric pathogen panel by probe and target amplification methodOrdered By: Juany Souza on 08-19-2024 Enteric Bacteriology [facility] Automated lymphocyte count a s percentage of total leukocytesOrdered By: Juany Souza on 08-18-2024 Lymphocytes/100 WBC Auto (Unsp spec) 8.2 % Low 19-41 [facility] Basic Metabolic Profile (BMP )on 08-18-2024 BUN/CRE 12.2 RATIO Normal 10-20 [facility] Comment on above: Performed By: #### L 500.2500, L100.0100 ####[facility] [address] [place], [address] Calcium [Mass/Vol] 8.1 mg/dL Normal 7.6-11.0 [facility] Comment on above: Performed By: #### L 500.2500, L100.0100 ####[facility] [address] [place], [address] Chloride [Moles/Vol] 108 mmol/L Normal 98-108 [facility] Comment on above: Performed By: #### L 500.2500, L100.0100 ####[facility] [address] [place], [address] CO2 [Moles/Vol] 17.9 mmol/L Low 21.0-32.0 [facility] Comment on above: Performed By: #### L 500.2500, L100.0100 ####[facility] [address] [place], [address] Creatinine [Mass/Vol] 1.23 mg/dL High 0.70-1.20 [facility] Comment on above: Performed By: #### L 500.2500, L100.0100 ####[facility] [address] [place], [address] ECRCL 56.87 ml/min Normal 50-250 [facility] Comment on above: Performed By: #### L 500.2500, L100.0100 ####[facility] [address] [place], [address] GAP 11 Normal 5-15 [facility] Comment on above: Performed By: #### L 500.2500, L100.0100 ####[facility] [address] [place], [address] GFR/1.73 sq M.predicted among non-blacks MDRD (S/P/Bld) [Vol rate/Area] 61 mL/min/{1.73_m2} Normal >60 [facility] Comment on above: Result Comment: mL/m in/1.73m2 CKD-EPI Creatinine Equation (2020) Performed By: #### L 500.2500, L100.0100 ####[facility] [address] [place], [address] Glucose [Mass/Vol] 102 mg/dL High 70-99 [facility] Comment on above: Performed By: #### L 500.2500, L100.0100 ####[facility] [address] [place], [address] Potassium [Moles/Vol] 4.1 mmol/L Normal 3.3-5.1 [facility] Comment on above: Performed By: #### L 500.2500, L100.0100 ####[facility] [address] [place], [address] Sodium [Moles/Vol] 137 mmol/L Normal 133-145 [facility] Comment on above: Performed By: #### L 500.2500, L100.0100 ####[facility] [address] [place], [address] Urea nitrogen [Mass/Vol] 15 mg/dL Normal 4-19 [facility] Comment on above: Performed By: #### L 500.2500, L100.0100 ####[facility] [address] [place], [address] Basophil percentageOrdered B y: Juanyjose Souza on 08-18-2024 Basophils/100 WBC (Bld) 0.3 % 0-1 [facility] CBC W/Diff, Automatedon 08-04 Absolute Lymph 0.78 X10 3/uL Low 0.83-4.51 [facility] Comment on above: Performed By: #### L 500.2500, L100.0100 ####[facility] [address] [place], [address] Absolute Neut 7.6 X10 3/uL Normal 2.0-7.7 [facility] Comment on above: Performed By: #### L 500.2500, L100.0100 ####[facility] [address] [place], [address] Basophils/100 WBC (Bld) 0.3 % Normal 0-1 [facility] Comment on above: Performed By: #### L 500.2500, L100.0100 ####[facility] [address] [place], [address] Eosinophils/100 WBC (Bld) 3.4 % Normal 0-5 [facility] Comment on above: Performed By: #### L 500.2500, L100.0100 ####[facility] [address] [place], [address] Erythrocyte distribution width (RBC) [Ratio] 15.4 % High 11.6-14.6 [facility] Comment on above: Performed By: #### L 500.2500, L100.0100 ####[facility] [address] [place], [address] Hematocrit (Bld) [Volume fraction] 27.9 % Low 40-54 [facility] Comment on above: Performed By: #### L 500.2500, L100.0100 ####[facility] [address] [place], [address] Hemoglobin (Bld) [Mass/Vol] 9.5 g/dL Low 13.0-16.5 [facility] Comment on above: Performed By: #### L 500.2500, L100.0100 ####[facility] [address] [place], [address] IG% 1.100 High 0.0-0.9 [facility] Comment on above: Result Comment: IG% - Immature Granulocytes (promyelocytes, myelocytes andmetamyelocytes) > 1% indicates that a LEFT SHIFT is Present. Performed By: #### L 500.2500, L100.0100 ####[facility] [address] [place], [address] Lymphocytes/100 WBC (Bld) 8.2 % Low 19-41 [facility] Comment on above: Performed By: #### L 500.2500, L100.0100 ####[facility] [address] [place], [address] MCH (RBC) [Entitic mass] 28.4 pg Normal 27.0-32.0 [facility] Comment on above: Performed By: #### L 500.2500, L100.0100 ####[facility] [address] [place], [address] MCHC (RBC) [Mass/Vol] 34.1 g/dL Normal 32-36 [facility] Comment on above: Performed By: #### L 500.2500, L100.0100 ####[facility] [address] [place], [address] MCV (RBC) [Entitic vol] 83.3 fL Normal 80-94 [facility] Comment on above: Performed By: #### L 500.2500, L100.0100 ####[facility] [address] [place], [address] Monocytes/100 WBC (Bld) 7.1 % Normal 0-10 [facility] Comment on above: Performed By: #### L 500.2500, L100.0100 ####[facility] [address] [place], [address] Neutrophils/100 WBC (Bld) 79.9 % High 47-70 [facility] Comment on above: Performed By: #### L 500.2500, L100.0100 ####[facility] [address] [place], [address] Nucleated RBC (Bld) [#/Vol] 0 10*3/uL Normal 0-5 [facility] Comment on above: Performed By: #### L 500.2500, L100.0100 ####[facility] [address] [place], [address] Platelet mean volume (Bld) [Entitic vol] 10.7 fL Normal 6.2-12.0 [facility] Comment on above: Performed By: #### L 500.2500, L100.0100 ####[facility] [address] [place], [address] Platelets (Bld) [#/Vol] 207 10*3/uL Normal 150-450 [facility] Comment on above: Performed By: #### L 500.2500, L100.0100 ####[facility] [address] [place], [address] RBC (Bld) [#/Vol] 3.35 10*6/uL Low 4.6-6.2 [facility] Comment on above: Performed By: #### L 500.2500, L100.0100 ####[facility] [address] [place], [address] RDW SD 47.0 fl High 35.1-43.9 [facility] Comment on above: Performed By: #### L 500.2500, L100.0100 ####[facility] [address] [place], [address] WBC (Bld) [#/Vol] 9.5 10*3/uL Normal 4.4-11.0 [facility] Comment on above: Performed By: #### L 500.2500, L100.0100 ####[facility] [address] [place], [address] Eosinophil percentageOrdered By: Juany Souza on 08-18-2024 Eosinophils/100 WBC (Bld) 3.4 % 0-5 [facility] Immature granulocytes/100 WB C Auto (Bld)Ordered By: Juany Souza on 08-18-2024 Immature granulocytes/100 WBC (Bld) 1.100 % High 0.0-0.9 [facility] Comment on above: IG% - Immature Granu locytes (promyelocytes, myelocytes and metamyelocytes) > 1% indicates that a LEFT SHIFT is Present. Lymphocytes/100 WBC Auto (Un sp spec)Ordered By: Juany Souza on 08-18-2024 Lymphocytes/100 WBC (Bld) 8.2 % Low 19-41 [facility] Monocyte percentageOrdered B y: Juany Souza on 08-18-2024 Monocytes/100 WBC (Bld) 7.1 % 0-10 [facility] Nucleated red blood cell per centageOrdered By: Juany Souza on 08-18-2024 Nucleated RBC/100 WBC (Bld) [Ratio] 0 % 0-5 [facility] Basic Metabolic Profile (BMP )on 08-17-2024 BUN/CRE 16.3 RATIO Normal 10-20 [facility] Comment on above: Performed By: #### L 500.2500, L100.0100 ####[facility] [address] [place], [address] Calcium [Mass/Vol] 7.9 mg/dL Normal 7.6-11.0 [facility] Comment on above: Performed By: #### L 500.2500, L100.0100 ####[facility] [address] [place], [address] Chloride [Moles/Vol] 109 mmol/L High 98-108 [facility] Comment on above: Performed By: #### L 500.2500, L100.0100 ####[facility] [address] [place], [address] CO2 [Moles/Vol] 16.9 mmol/L Low 21.0-32.0 [facility] Comment on above: Performed By: #### L 500.2500, L100.0100 ####[facility] [address] [place], [address] Creatinine [Mass/Vol] 1.46 mg/dL High 0.70-1.20 [facility] Comment on above: Performed By: #### L 500.2500, L100.0100 ####[facility] [address] [place], [address] ECRCL 48.18 ml/min Low 50-250 [facility] Comment on above: Performed By: #### L 500.2500, L100.0100 ####[facility] [address] [place], [address] GAP 10 Normal 5-15 [facility] Comment on above: Performed By: #### L 500.2500, L100.0100 ####[facility] [address] [place], [address] GFR/1.73 sq M.predicted among non-blacks MDRD (S/P/Bld) [Vol rate/Area] 50 mL/min/{1.73_m2} Low >60 [facility] Comment on above: Result Comment: mL/m in/1.73m2 CKD-EPI Creatinine Equation (2020) Performed By: #### L 500.2500, L100.0100 ####[facility] [address] [place], [address] Glucose [Mass/Vol] 108 mg/dL High 70-99 [facility] Comment on above: Performed By: #### L 500.2500, L100.0100 ####[facility] [address] [place], [address] Potassium [Moles/Vol] 3.8 mmol/L Normal 3.3-5.1 [facility] Comment on above: Performed By: #### L 500.2500, L100.0100 ####[facility] [address] [place], [address] Sodium [Moles/Vol] 137 mmol/L Normal 133-145 [facility] Comment on above: Performed By: #### L 500.2500, L100.0100 ####[facility] [address] [place], [address] Urea nitrogen [Mass/Vol] 24 mg/dL High 4-19 [facility] Comment on above: Performed By: #### L 500.2500, L100.0100 ####[facility] [address] [place], [address] CBC W/Diff, Automatedon 08-04 Absolute Lymph 0.57 X10 3/uL Low 0.83-4.51 [facility] Comment on above: Performed By: #### L 500.2500, L100.0100 ####[facility] [address] [place], [address] Absolute Neut 11.0 X10 3/uL High 2.0-7.7 [facility] Comment on above: Performed By: #### L 500.2500, L100.0100 ####[facility] [address] [place], [address] Basophils/100 WBC (Bld) 0.4 % Normal 0-1 [facility] Comment on above: Performed By: #### L 500.2500, L100.0100 ####[facility] [address] [place], [address] Eosinophils/100 WBC (Bld) 3.9 % Normal 0-5 [facility] Comment on above: Performed By: #### L 500.2500, L100.0100 ####[facility] [address] [place], [address] Erythrocyte distribution width (RBC) [Ratio] 15.2 % High 11.6-14.6 [facility] Comment on above: Performed By: #### L 500.2500, L100.0100 ####[facility] [address] [place], [address] Hematocrit (Bld) [Volume fraction] 28.8 % Low 40-54 [facility] Comment on above: Performed By: #### L 500.2500, L100.0100 ####[facility] [address] [place], [address] Hemoglobin (Bld) [Mass/Vol] 9.5 g/dL Low 13.0-16.5 [facility] Comment on above: Performed By: #### L 500.2500, L100.0100 ####[facility] [address] [place], [address] IG% 1.500 High 0.0-0.9 [facility] Comment on above: Result Comment: IG% - Immature Granulocytes (promyelocytes, myelocytes andmetamyelocytes) > 1% indicates that a LEFT SHIFT is Present. Performed By: #### L 500.2500, L100.0100 ####[facility] [address] [place], [address] Lymphocytes/100 WBC (Bld) 4.4 % Low 19-41 [facility] Comment on above: Performed By: #### L 500.2500, L100.0100 ####[facility] [address] [place], [address] MCH (RBC) [Entitic mass] 28.1 pg Normal 27.0-32.0 [facility] Comment on above: Performed By: #### L 500.2500, L100.0100 ####[facility] [address] [place], [address] MCHC (RBC) [Mass/Vol] 33.0 g/dL Normal 32-36 [facility] Comment on above: Performed By: #### L 500.2500, L100.0100 ####[facility] [address] [place], [address] MCV (RBC) [Entitic vol] 85.2 fL Normal 80-94 [facility] Comment on above: Performed By: #### L 500.2500, L100.0100 ####[facility] [address] [place], [address] Monocytes/100 WBC (Bld) 5.8 % Normal 0-10 [facility] Comment on above: Performed By: #### L 500.2500, L100.0100 ####[facility] [address] [place], [address] Neutrophils/100 WBC (Bld) 84.0 % High 47-70 [facility] Comment on above: Performed By: #### L 500.2500, L100.0100 ####[facility] [address] [place], [address] Nucleated RBC (Bld) [#/Vol] 0 10*3/uL Normal 0-5 [facility] Comment on above: Performed By: #### L 500.2500, L100.0100 ####[facility] [address] [place], [address] Platelet mean volume (Bld) [Entitic vol] 10.8 fL Normal 6.2-12.0 [facility] Comment on above: Performed By: #### L 500.2500, L100.0100 ####[facility] [address] [place], [address] Platelets (Bld) [#/Vol] 181 10*3/uL Normal 150-450 [facility] Comment on above: Performed By: #### L 500.2500, L100.0100 ####[facility] [address] [place], [address] RBC (Bld) [#/Vol] 3.38 10*6/uL Low 4.6-6.2 [facility] Comment on above: Performed By: #### L 500.2500, L100.0100 ####[facility] [address] [place], [address] RDW SD 47.2 fl High 35.1-43.9 [facility] Comment on above: Performed By: #### L 500.2500, L100.0100 ####[facility] [address] [place], [address] WBC (Bld) [#/Vol] 13.0 10*3/uL High 4.4-11.0 [facility] Comment on above: Performed By: #### L 500.2500, L100.0100 ####[facility] [address] [place], [address] Consultation - Infectious Dx on 08-17-2024 Consultation - Infectious Dx Normal [facility] Basic Metabolic Profile (BMP )on 08-16-2024 BUN/CRE 17.4 RATIO Normal 10-20 [facility] Comment on above: Performed By: #### L 100.0100, L500.2500 ####[facility] [address] [place], [address] Calcium [Mass/Vol] 7.7 mg/dL Normal 7.6-11.0 [facility] Comment on above: Performed By: #### L 100.0100, L500.2500 ####[facility] [address] [place], [address] Chloride [Moles/Vol] 108 mmol/L Normal 98-108 [facility] Comment on above: Performed By: #### L 100.0100, L500.2500 ####[facility] [address] [place], [address] CO2 [Moles/Vol] 16.2 mmol/L Low 21.0-32.0 [facility] Comment on above: Performed By: #### L 100.0100, L500.2500 ####[facility] [address] [place], [address] Creatinine [Mass/Vol] 1.80 mg/dL High 0.70-1.20 [facility] Comment on above: Performed By: #### L 100.0100, L500.2500 ####[facility] [address] [place], [address] ECRCL 39.08 ml/min Low 50-250 [facility] Comment on above: Performed By: #### L 100.0100, L500.2500 ####[facility] [address] [place], [address] GAP 12 Normal 5-15 [facility] Comment on above: Performed By: #### L 100.0100, L500.2500 ####[facility] [address] [place], [address] GFR/1.73 sq M.predicted among non-blacks MDRD (S/P/Bld) [Vol rate/Area] 39 mL/min/{1.73_m2} Low >60 [facility] Comment on above: Result Comment: mL/m in/1.73m2 CKD-EPI Creatinine Equation (2020) Performed By: #### L 100.0100, L500.2500 ####[facility] [address] [place], [address] Glucose [Mass/Vol] 89 mg/dL Normal 70-99 [facility] Comment on above: Performed By: #### L 100.0100, L500.2500 ####[facility] [address] [place], [address] Potassium [Moles/Vol] 4.1 mmol/L Normal 3.3-5.1 [facility] Comment on above: Performed By: #### L 100.0100, L500.2500 ####[facility] [address] [place], [address] Sodium [Moles/Vol] 137 mmol/L Normal 133-145 [facility] Comment on above: Performed By: #### L 100.0100, L500.2500 ####[facility] [address] [place], [address] Urea nitrogen [Mass/Vol] 31 mg/dL High 4-19 [facility] Comment on above: Performed By: #### L 100.0100, L500.2500 ####[facility] [address] [place], [address] Blood manual differential co mment interpretation (narrative result)Ordered By: Juany Souza on 08-16-2024 Manual differential comment Kristian (Bld) [Interp] See comment [facility] Comment on above: BANDS NOTED Blood vacuolated neutrophils detection by light microscopyOrdered By: Juany Souza on 08-16-2024 Neutrophils.vacuolated LM Ql (Bld) 2+ [facility] CBC W/Diff, Automatedon 08-04 PLT EST ADEQUATE Normal ADEQ [facility] Comment on above: Performed By: #### L 100.0100, L500.2500 ####[facility] [address] [place], [address] RED CELL MORPH NORM C+C Normal NORM C C [facility] Comment on above: Performed By: #### L 100.0100, L500.2500 ####[facility] [address] [place], [address] SMEAR COMMENT Normal [facility] Comment on above: Result Comment: BAND S NOTED Performed By: #### L 100.0100, L500.2500 ####[facility] [address] [place], [address] VACUOLATE CELLS 2+ Normal [facility] Comment on above: Performed By: #### L 100.0100, L500.2500 ####[facility] [address] [place], [address] Erythrocyte morphology asses smentOrdered By: Juany Souza on 08-16-2024 RBC morphology finding Nom (Bld) NORM C+C NORMAL NORM C&C [facility] Manual differential comment Kristian (Bld) [Interp]Ordered By: Juany Souza on 08-16-2024 Differential Comment See comment [facility] Comment on above: BANDS NOTED Neutrophils.vacuolated LM Ql (Bld)Ordered By: Juany Souza on 08-16-2024 Toxic Vacuolation 2+ [facility] RBC morphology finding Nom ( Bld)Ordered By: Juany Souza on 08-16-2024 Red Blood Cell Morphology NORM C+C NORMAL NORM C&C [facility] Basic Metabolic Profile (BMP )on 08-15-2024 BUN/CRE 16.1 RATIO Normal 10-20 [facility] Comment on above: Performed By: #### L 500.2500, L100.0100 ####[facility] [address] [place], [address] Calcium [Mass/Vol] 7.4 mg/dL Low 7.6-11.0 [facility] Comment on above: Performed By: #### L 500.2500, L100.0100 ####[facility] [address] [place], [address] Chloride [Moles/Vol] 110 mmol/L High 98-108 [facility] Comment on above: Performed By: #### L 500.2500, L100.0100 ####[facility] [address] [place], [address] CO2 [Moles/Vol] 16.2 mmol/L Low 21.0-32.0 [facility] Comment on above: Performed By: #### L 500.2500, L100.0100 ####[facility] [address] [place], [address] Creatinine [Mass/Vol] 1.98 mg/dL High 0.70-1.20 [facility] Comment on above: Performed By: #### L 500.2500, L100.0100 ####[facility] [address] [place], [address] ECRCL 35.03 ml/min Low 50-250 [facility] Comment on above: Performed By: #### L 500.2500, L100.0100 ####[facility] [address] [place], [address] GAP 13 Normal 5-15 [facility] Comment on above: Performed By: #### L 500.2500, L100.0100 ####[facility] [address] [place], [address] GFR/1.73 sq M.predicted among non-blacks MDRD (S/P/Bld) [Vol rate/Area] 34 mL/min/{1.73_m2} Low >60 [facility] Comment on above: Result Comment: mL/m in/1.73m2 CKD-EPI Creatinine Equation (2020) Performed By: #### L 500.2500, L100.0100 ####[facility] [address] [place], [address] Glucose [Mass/Vol] 130 mg/dL High 70-99 [facility] Comment on above: Performed By: #### L 500.2500, L100.0100 ####[facility] [address] [place], [address] Potassium [Moles/Vol] 4.6 mmol/L Normal 3.3-5.1 [facility] Comment on above: Performed By: #### L 500.2500, L100.0100 ####[facility] [address] [place], [address] Sodium [Moles/Vol] 139 mmol/L Normal 133-145 [facility] Comment on above: Performed By: #### L 500.2500, L100.0100 ####[facility] [address] [place], [address] Urea nitrogen [Mass/Vol] 32 mg/dL High 4-19 [facility] Comment on above: Performed By: #### L 500.2500, L100.0100 ####[facility] [address] [place], [address] CBC W/Diff, Automatedon 08-04 SMEAR COMMENT Normal [facility] Comment on above: Result Comment: BAND S NOTED Performed By: #### L 500.2500, L100.0100 ####[facility] [address] [place], [address] Consultation - Intensiviston 08-15-2024 Consultation - Grooming Assistant Normal [facility] Consultation - Urologyon Consultation - Urology Normal [facility] FOLATES,SERUM (FOLIC ACID)on 08-15-2024 FOLATES,SERUM 18.20 ng/mL Normal 4.60-34.80 [facility] Comment on above: Result Comment: Hemo lysis, Results will be affected, Requires Recollection. Performed By: #### L 501.9985, L501.9520, L506.0200 ####[facility] [address] [place], [address] Hemoglobin A1con 08-15-2024 HbA1c (Bld) [Mass fraction] 6.3 % Normal <=5.6 [facility] Comment on above: Performed By: #### L 501.9985, L501.9520, L506.0200 ####[facility] [address] [place], [address] L503.0106on 08-15-2024 Cobalamin (Vitamin B12) [Mass/Vol] 1133 pg/mL High 180-914 [facility] Comment on above: Order Comment: *ADD- ON* Performed By: #### L 503.0106 ####[facility] [address] [place], [place], [id number] Lactic Acidon 08-15-2024 Lactate [Moles/Vol] 3.5 mmol/L Invalid Interpretation Code 0.0-2.0 [facility] Comment on above: Order Comment: Y Result Comment: Crit ical Result(s) Called at 0822: by:JOSE DORAN.??Results read back by same. Performed By: #### L 503.6005 ####[facility] [address] [place], [place], [id number] Lactic acid measurementOrder ed By: Rajinder Iyer on 08-15-2024 Lactate [Moles/Vol] 3.5 mmol/L High 0.0-2.0 [facility] Comment on above: Critical Result(s) C alled at 0822: by:JOSE RODRIGUEZ. Results read back by same. Operative Reporton Operative Report Normal [facility] PSA, total screeningOrdered By: Rajinder Iyer on 08-15-2024 Prostate Specific Antigen Screen < 0.02 ng/mL Low 0.02-4.00 [facility] Comment on above: This test was perfor [...] 08-15-2024 PSA,TOT SCREEN < 0.02 Low 0.02-4.00 [facility] Comment on above: Result Comment: This test was performed using the [employer] tPSAmethod. Measured values of a patient??sample can varydepending on the testing procedure used. PSA valuesdetermined on patient samples by different testingprocedures cannot be used interchangeably. If there is achange in PSA assays while monitoring therapy, sequentialtesting should be performed to confirm baseline values. Performed By: #### L 501.9910 ####[facility] [address] [place], [place], [address] Thyroid Stim Hormone (TSH)on 08-15-2024 TSH 3.660 uIU/mL Normal 0.300-4.200 [facility] Comment on above: Performed By: #### L 501.9985, L501.9520, L506.0200 ####[facility] [address] [place], [place], [id number] 12 Lead EKGon 08-14-2024 12 Lead EKG Normal [facility] Abdomen/Pelvis without Conto n 08-14-2024 Abdomen/Pelvis without Cont Normal [facility] Absolute neutrophil countOrd ered By: ED PROVIDER on 08-14-2024 Neutrophils (Bld) [#/Vol] 1.5 10*3/uL Low 2.0-7.7 [facility] Activated partial thrombopla stin time (aPTT) in platelet poor plasma by coagulation aOrdered By: Kishore Nicolas on 08-14-2024 aPTT Coag (PPP) [Time] 26.3 s 24.1-36.2 [facility] Amorphous sediment detection in urine sediment by light microscopyOrdered By: Kishore Nicolas on 08-14-2024 Amorphous sediment LM Ql (Urine sed) 2+ PHOS [facility] Anion gap in Serum or Plasma Ordered By: ED PROVIDER on 08-14-2024 Anion gap [Moles/Vol] 17 mmol/L High 5-15 [facility] BUN/creatinine ratioOrdered By: ED PROVIDER on 08-14-2024 Urea nitrogen/Creatinine [Mass ratio] 18.2 mg/mg 10-20 [facility] Bacteria LM.HPF (Urine sed) [#/Area]Ordered By: Kishore Nicolas on 08-14-2024 Urine Bacteria RARE /hpf None Seen [facility] Basophil percentageOrdered B y: ED PROVIDER on 08-14-2024 Basophils/100 WBC (Bld) 0.5 % 0-1 [facility] Bilirubin Test strip Ql (U)O rdered By: Kishore Nicolas on 08-14-2024 Bilirubin Ql (U) Negative Negative [facility] Bilirubin, totalOrdered By: ED PROVIDER on 08-14-2024 Bilirubin [Mass/Vol] 0.25 mg/dL 0.00-1.30 [facility] Blood cultureOrdered By: Gio Nicolas on 08-14-2024 Bacteria identified Cx Nom (Bld) Negative Abnormal [facility] Bacteria identified Cx Nom (Bld) Providencia rettgeri Abnormal [facility] CBC W/Diff, Automatedon 08-04 Anisocytosis Ql (Bld) RARE Normal [facility] Comment on above: Performed By: #### L 100.0100, L500.4050 ####[facility] [address] [place], [address] RED CELL MORPH NORM C+C Normal NORM C C [facility] Comment on above: Performed By: #### L 100.0100, L500.4050 ####[facility] [address] [place], [address] PLT EST ADEQUATE Normal ADEQ [facility] Comment on above: Performed By: #### L 100.0100, L500.4050 ####[facility] [address] [place], [address] SMEAR COMMENT SEE COMMENT Normal [facility] Comment on above: Result Comment: LYMP HOPENIA NOTED Performed By: #### L 100.0100, L500.4050 ####[facility] [address] [place], [address] Carbon dioxide, total [Moles /volume] in Central venous bloodOrdered By: ED PROVIDER on 08-14-2024 CO2 [Moles/Vol] 17.4 mmol/L Low 21.0-32.0 [facility] Chest PA and Lateralon 08-14 Chest PA and Lateral Normal [facility] Chloride assayOrdered By: ED PROVIDER on 08-14-2024 Chloride [Moles/Vol] 105 mmol/L 98-108 [facility] Comprehensive Metabolic Prof ilon 08-14-2024 Albumin [Mass/Vol] 3.7 g/dL Normal 3.4-4.8 [facility] Comment on above: Performed By: #### L 100.0100, L500.4050 ####[facility] [address] [place], [address] Albumin/Globulin [Mass ratio] 1.1 {ratio} Normal 0.9-2.4 [facility] Comment on above: Performed By: #### L 100.0100, L500.4050 ####[facility] [address] [place], [address] ALK PHOS 85 U/L Normal 40-129 [facility] Comment on above: Performed By: #### L 100.0100, L500.4050 ####[facility] [address] [place], [address] ALT [Catalytic activity/Vol] 16 U/L Normal <=46 [facility] Comment on above: Performed By: #### L 100.0100, L500.4050 ####[facility] [address] [place], [address] AST [Catalytic activity/Vol] 24 U/L Normal <=37 [facility] Comment on above: Performed By: #### L 100.0100, L500.4050 ####[facility] [address] [place], [address] Bilirubin [Mass/Vol] 0.25 mg/dL Normal 0.00-1.30 [facility] Comment on above: Performed By: #### L 100.0100, L500.4050 ####[facility] [address] [place], [address] BUN/CRE 18.2 RATIO Normal 10-20 [facility] Comment on above: Performed By: #### L 100.0100, L500.4050 ####[facility] [address] [place], [address] Calcium [Mass/Vol] 9.2 mg/dL Normal 7.6-11.0 [facility] Comment on above: Performed By: #### L 100.0100, L500.4050 ####[facility] [address] [place], [address] Chloride [Moles/Vol] 105 mmol/L Normal 98-108 [facility] Comment on above: Performed By: #### L 100.0100, L500.4050 ####[facility] [address] [place], [address] CO2 [Moles/Vol] 17.4 mmol/L Low 21.0-32.0 [facility] Comment on above: Performed By: #### L 100.0100, L500.4050 ####[facility] [address] [place], [address] Creatinine [Mass/Vol] 1.69 mg/dL High 0.70-1.20 [facility] Comment on above: Performed By: #### L 100.0100, L500.4050 ####[facility] [address] [place], [address] GAP 17 High 5-15 [facility] Comment on above: Performed By: #### L 100.0100, L500.4050 ####[facility] [address] [place], [address] GFR/1.73 sq M.predicted among non-blacks MDRD (S/P/Bld) [Vol rate/Area] 42 mL/min/{1.73_m2} Low >60 [facility] Comment on above: Result Comment: mL/m in/1.73m2 CKD-EPI Creatinine Equation (2020) Performed By: #### L 100.0100, L500.4050 ####[facility] [address] [place], [address] Globulin (S) [Mass/Vol] 3.4 g/dL Normal 2.2-4.2 [facility] Comment on above: Performed By: #### L 100.0100, L500.4050 ####[facility] [address] [place], [address] Glucose [Mass/Vol] 139 mg/dL High 70-99 [facility] Comment on above: Performed By: #### L 100.0100, L500.4050 ####[facility] [address] [place], [address] Potassium [Moles/Vol] 4.5 mmol/L Normal 3.3-5.1 [facility] Comment on above: Result Comment: Hemo lysis present, Results??could be affected.?? Performed By: #### L 100.0100, L500.4050 ####[facility] [address] [place], [address] Sodium [Moles/Vol] 139 mmol/L Normal 133-145 [facility] Comment on above: Performed By: #### L 100.0100, L500.4050 ####[facility] [address] [place], [address] T PROT 7.2 g/dL Normal 5.9-8.4 [facility] Comment on above: Performed By: #### L 100.0100, L500.4050 ####[facility] [address] [place], [address] Urea nitrogen [Mass/Vol] 31 mg/dL High 4-19 [facility] Comment on above: Performed By: #### L 100.0100, L500.4050 ####[facility] [address] [place], [address] Emergency Department Summary on 08-14-2024 Emergency Department Summary Normal [facility] Eosinophil percentageOrdered By: ED PROVIDER on 08-14-2024 Eosinophils/100 WBC (Bld) 5.7 % High 0-5 [facility] [facility] Epithelial cells.squamous LM Ql (Urine sed)Ordered By: Kishore Nicolas on 08-14-2024 Epithelial cells.squamous LM.HPF (Urine sed) [#/Area] 5 /[HPF] 0-5 [facility] Erythrocyte distribution wid th ratioOrdered By: ED PROVIDER on 08-14-2024 Erythrocyte distribution width (RBC) [Ratio] 14.0 % 11.6-14.6 [facility] Erythrocyte distribution wid th standard deviationOrdered By: ED PROVIDER on 08-14-2024 Erythrocyte distribution width (RBC) [Entitic vol] 43.3 fL 35.1-43.9 [facility] Folate [Moles/Vol]Ordered By : Rajinder Iyer on 08-14-2024 Serum Folate 18.20 ng/mL 4.60-34.80 [facility] Comment on above: Hemolysis, Results w ill be affected, Requires Recollection. Folate [Moles/volume] in Ser um or PlasmaOrdered By: Rajinder Iyer on 08-14-2024 Folate [Moles/Vol] 18.20 ng/mL 4.60-34.80 [facility] Comment on above: Hemolysis, Results w ill be affected, Requires Recollection. GFR/1.73 sq M.predicted tobias g non-blacks MDRD (S/P/Bld) [Vol rate/Area]Ordered By: ED PROVIDER on 08-14-2024 Estimated GFR (MDRD) Non-Af Amer 42 Low >60 [facility] Comment on above: mL/min/1.73m2 CKD-EP I Creatinine Equation (2020) Glucose Ql (U)Ordered By: Leodan Nicolas on 08-14-2024 Urine Glucose (UA) Normal mg/dl Normal [facility] H AND P Exam - Hospital[place] 08-14-2024 H&P Exam - Hospitalist Normal [facility] Hematocrit Auto (Bld) [Volum e fraction]Ordered By: ED PROVIDER on 08-14-2024 Hematocrit (Bld) [Volume fraction] 36.1 % Low 40-54 [facility] Hemoglobin A1c percentageOrd ered By: Rajinder Iyer on 08-14-2024 HbA1c (Bld) [Mass fraction] 6.3 % >5.7 [facility] Hemoglobin measurementOrdere d By: ED PROVIDER on 08-14-2024 Hemoglobin (Bld) [Mass/Vol] 12.0 g/dL Low 13.0-16.5 [facility] Immature granulocytes/100 WB C Auto (Bld)Ordered By: ED PROVIDER on 08-14-2024 Immature granulocytes/100 WBC (Bld) 1.000 % High 0.0-0.9 [facility] Comment on above: IG% - Immature Granu locytes (promyelocytes, myelocytes and metamyelocytes) > 1% indicates that a LEFT SHIFT is Present. Influenza virus A and B and SARS-CoV-2 (COVID-19) and Respiratory syncytial virus RNAOrdered By: Kishore Nicolas on 08-14-2024 SARS-CoV-2 (COVID-19) RNA MARYJANE+probe Ql (Unsp spec) [facility] International normalized rat io (INR) calculationOrdered By: Kishore Nicolas on 08-14-2024 INR Coag (Bld) [Relative time] 1.2 {INR} [facility] Ketones Test strip Ql (U)Ord ered By: Kishore Nicolas on 08-14-2024 Ketones Ql (U) 5 mg/dl High Negative [facility] Laboratory - Chemistry and C hemistry - challengeOrdered By: ED PROVIDER on 08-14-2024 AST [Catalytic activity/Vol] 24 U/L <38 [facility] Laboratory - Hematology and Cell countsOrdered By: Kishore Nicolas on 08-14-2024 Anisocytosis Ql (Bld) RARE [facility] Lactic Acidon 08-14-2024 Lactate [Moles/Vol] 4.2 mmol/L Invalid Interpretation Code 0.0-2.0 [facility] Comment on above: Order Comment: Y Result Comment: Crit ical Result(s) Called at: by: YELITZA WILLETT TO ABIGALLAMMERS??Results read back by same. Performed By: #### M 200.1000, L300.4310, L503.6005, L300.3900 ####[facility] [address] [place], [address] Lactic acid measurementOrder ed By: Kishore Nicolas on 08-14-2024 Lactate [Moles/Vol] 4.2 mmol/L High 0.0-2.0 [facility] Comment on above: Critical Result(s) C alled at: by: YELITZA GOODWIN Results read back by same. Lymphocytes Auto (Unsp spec) [#/Vol]Ordered By: ED PROVIDER on 08-14-2024 Lymphocytes (Bld) [#/Vol] 0.30 10*3/uL Low 0.83-4.51 [facility] Lymphocytes/100 WBC Auto (Un sp spec)Ordered By: ED PROVIDER on 08-14-2024 Lymphocytes/100 WBC (Bld) 15.5 % Low 19-41 [facility] M100.678on 08-14-2024 M100.678 SARS-CoV-2 (COVID 19) Negative INFLUENZA A Negative INFLUENZA B Negative RSV PCR Negative Normal [facility] Comment on above: Performed By: #### M 100.678, M100.2200 ####[facility] [address] [place], [address] MCV (mean corpuscular volume ) determinationOrdered By: ED PROVIDER on 08-14-2024 MCV (RBC) [Entitic vol] 85.3 fL 80-94 [facility] Manual differential comment Kristian (Bld) [Interp]Ordered By: Kishore Nicolas on 08-14-2024 Differential Comment SEE COMMENT [facility] Comment on above: LYMPHOPENIA NOTED Mean corpuscular hemoglobin (MCH) determinationOrdered By: ED PROVIDER on 08-14-2024 MCH (RBC) [Entitic mass] 28.4 pg 27.0-32.0 [facility] Mean corpuscular hemoglobin concentration (MCHC) determinationOrdered By: ED PROVIDER on 08-14-2024 MCHC (RBC) [Mass/Vol] 33.2 g/dL 32-36 [facility] Mean platelet volume determi nationOrdered By: ED PROVIDER on 08-14-2024 Platelet mean volume (Bld) [Entitic vol] 9.6 fL 6.2-12.0 [facility] Microscopic analysis of urin e for red blood cells (RBC)Ordered By: Kishore Nicolas on 08-14-2024 Microscopic analysis of urine for red blood cells (RBC) > 100 SEEN /hpf 0-5 [facility] Urine RBC > 100 SEEN /hpf 0-5 [facility] Monocyte percentageOrdered B y: ED PROVIDER on 08-14-2024 Monocytes/100 WBC (Bld) 0.5 % 0-10 [facility] Mucus LM Ql (Urine sed)Order ed By: Kishore Nicolas on 08-14-2024 Mucus Ql (Urine sed) 0 SEEN /hpf [facility] Neutrophil percentageOrdered By: ED PROVIDER on 08-14-2024 Neutrophils/100 WBC (Bld) 76.8 % High 47-70 [facility] Nitrite Test strip Ql (U)Ord ered By: Kishore Nicolas on 08-14-2024 Nitrite Ql (U) Negative Negative [facility] Nucleated red blood cell per centageOrdered By: ED PROVIDER on 08-14-2024 Nucleated RBC/100 WBC (Bld) [Ratio] 0 % 0-5 [facility] Partial Thromboplast Timeon 08-14-2024 aPTT Coag (Bld) [Time] 26.3 s Normal 24.1-36.2 [facility] Comment on above: Performed By: #### M 200.1000, L300.4310, L503.6005, L300.3900 ####[facility] [address] [place], [place], [id number] Platelet countOrdered By: ED PROVIDER on 08-14-2024 Platelets (Bld) [#/Vol] 229 10*3/uL 150-450 [facility] Platelets LM Ql (Bld)Ordered By: Kishore Nicolas on 08-14-2024 Platelet Estimate ADEQUATE ADEQ [facility] Potassium (Unsp spec) [Mass/ Vol]Ordered By: ED PROVIDER on 08-14-2024 Potassium [Moles/Vol] 4.5 mmol/L 3.3-5.1 [facility] Comment on above: Hemolysis present, R esults could be affected. Protein Test strip Ql (U)Ord ered By: Kishore Nicolas on 08-14-2024 Protein Ql (U) 100 mg/dl High Negative [facility] Prothrombin Time w/INRon INR Coag (PPP) [Relative time] 1.2 {INR} Normal [facility] Comment on above: Performed By: #### M 200.1000, L300.4310, L503.6005, L300.3900 ####[facility] [address] [place], [address] PT Coag (PPP) [Time] 15.5 s High 11.7-14.9 [facility] Comment on above: Performed By: #### M 200.1000, L300.4310, L503.6005, L300.3900 ####[facility] [address] [place], [address] Prothrombin timeOrdered By: Kishore Nicolas on 08-14-2024 PT Coag (PPP) [Time] 15.5 s High 11.7-14.9 [facility] RBC Auto (Bld) [#/Vol]Ordere d By: ED PROVIDER on 08-14-2024 RBC (Bld) [#/Vol] 4.23 10*6/uL Low 4.6-6.2 [facility] RBC morphology finding Nom ( Bld)Ordered By: Kishore Nicolas on 08-14-2024 Red Blood Cell Morphology NORM C+C NORMAL NORM C&C [facility] Serum creatinine measurement (mass/volume)Ordered By: ED PROVIDER on 08-14-2024 Creatinine [Mass/Vol] 1.69 mg/dL High 0.70-1.20 [facility] Serum globulin measurementOr dered By: ED PROVIDER on 08-14-2024 Globulin (S) [Mass/Vol] 3.4 g/dL 2.2-4.2 [facility] Serum glucose measurement (m ass/volume)Ordered By: ED PROVIDER on 08-14-2024 Glucose [Mass/Vol] 139 mg/dL High 70-99 [facility] Serum or plasma alanine morris otransferase (ALT) measurementOrdered By: ED PROVIDER on 08-14-2024 ALT [Catalytic activity/Vol] 16 U/L <47 [facility] Serum or plasma albumin janusz urement (mass/volume)Ordered By: ED PROVIDER on 08-14-2024 Albumin [Mass/Vol] 3.7 g/dL 3.4-4.8 [facility] Serum or plasma albumin/glob ulin mass ratioOrdered By: ED PROVIDER on 08-14-2024 Albumin/Globulin [Mass ratio] 1.1 {ratio} 0.9-2.4 [facility] Serum or plasma alkaline trice sphatase measurementOrdered By: ED PROVIDER on 08-14-2024 ALP [Catalytic activity/Vol] 85 U/L 40-129 [facility] Serum or plasma calcium janusz urement (mass/volume)Ordered By: ED PROVIDER on 08-14-2024 Calcium [Mass/Vol] 9.2 mg/dL 7.6-11.0 [facility] Serum or plasma urea nitroge n measurement (mass/volume)Ordered By: ED PROVIDER on 08-14-2024 Urea nitrogen [Mass/Vol] 31 mg/dL High 4-19 [facility] Sodium levelOrdered By: ED Ed SILVA on 08-14-2024 Sodium [Moles/Vol] 139 mmol/L 133-145 [facility] Squamous epithelial cells de tection in urine sediment by light microscopyOrdered By: Kishore Nicolas on 08-14-2024 Epithelial cells.squamous LM Ql (Urine sed) 5-10 SEEN /hpf 0-5 [facility] TSH DL <= 0.005 mIU/L QnOrde red By: Rajinder Iyer on 08-14-2024 Thyroid Stimulating Hormone (TSH) 3.660 uIU/mL 0.300-4.200 [facility] TSH Qn 3.660 uIU/mL 0.300-4.200 [facility] Total proteinOrdered By: ED PROVIDER on 08-14-2024 Protein [Mass/Vol] 7.2 g/dL 5.9-8.4 [facility] Urinalysis, Completeon 08-14 AMORPHOUS 2+ PHOS Normal [facility] Comment on above: Order Comment: COLOR OF URINE MAY AFFECT DIPSTICK RESULTS.WILDLIFE BIOLOGIST TO SPECIFY Performed By: #### L 400.0001 ####[facility] [address] [place], [address] BACTERIA RARE Normal None Seen [facility] Comment on above: Order Comment: COLOR OF URINE MAY AFFECT DIPSTICK RESULTS.WILDLIFE BIOLOGIST TO SPECIFY Performed By: #### L 400.0001 ####[facility] [address] [place], [address] EPI,SQUAMOUS 5-10 SEEN Normal 0-5 [facility] Comment on above: Order Comment: COLOR OF URINE MAY AFFECT DIPSTICK RESULTS.WILDLIFE BIOLOGIST TO SPECIFY Performed By: #### L 400.0001 ####[facility] [address] [place], [address] RBC > 100 SEEN Normal 0-5 [facility] Comment on above: Order Comment: COLOR OF URINE MAY AFFECT DIPSTICK RESULTS.WILDLIFE BIOLOGIST TO SPECIFY Performed By: #### L 400.0001 ####[facility] [address] [place], [address] WBC 50-100 SEEN Normal 0-5 [facility] Comment on above: Order Comment: COLOR OF URINE MAY AFFECT DIPSTICK RESULTS.WILDLIFE BIOLOGIST TO SPECIFY Performed By: #### L 400.0001 ####[facility] [address] [place], [address] Mucus Ql (Urine sed) 0 SEEN Normal [facility] Comment on above: Order Comment: COLOR OF URINE MAY AFFECT DIPSTICK RESULTS.WILDLIFE BIOLOGIST TO SPECIFY Performed By: #### L 400.0001 ####[facility] [address] [place], [address] Urine blood detectionOrdered By: Kishore Nicolas on 08-14-2024 Urine Occult Blood 250 /ul High Negative [facility] Urine clarityOrdered By: Gio Nicolas on 08-14-2024 Clarity (U) Cloudy Clear [facility] Urine color determinationOrd ered By: Kishore Nicolas on 08-14-2024 Color (U) Red Yellow [facility] Urine cultureOrdered By: Gio Nicolas on 08-14-2024 Bacteria identified Cx Nom (U) Providencia rettgeri Abnormal [facility] Bacteria identified Cx Nom (U) Myroides spp Abnormal [facility] Bacteria identified Cx Nom (U) Enterococcus faecalis Abnormal [facility] Urine glucose detectionOrder ed By: Kishore Nicolas on 08-14-2024 Glucose Ql (U) Normal mg/dl Normal [facility] Urine leukocyte esterase det ection by dipstickOrdered By: Kishore Nicolas on 08-14-2024 Leukocyte esterase Test strip Ql (U) 500 /ul High Negative [facility] Urine pHOrdered By: Kishore paul on 08-14-2024 pH (U) 8.0 [pH] 5.0 - 8.0 [facility] Urine sediment bacteria coun t by microscopy (number/high power field)Ordered By: Kishore Nicolas on 08-14-2024 Bacteria LM.HPF (Urine sed) [#/Area] RARE /hpf None Seen [facility] Urine specific gravity measu rementOrdered By: Kishore Nicolas on 08-14-2024 Specific gravity (U) [Rel density] 1.010 1.002-1.030 [facility] Urine urobilinogen measureme ntOrdered By: Kishore Nicolas on 08-14-2024 Urobilinogen Ql (U) Normal mg/dl Normal [facility] Urobilinogen Ql (U)Ordered B y: Kishore Nicolas on 08-14-2024 Urine Urobilinogen Normal mg/dl Normal [facility] Vitamin B12 ser/plasOrdered By: Rajinder Iyer on 08-14-2024 Cobalamin (Vitamin B12) [Mass/Vol] 1133 pg/mL High 180-914 [facility] White blood cell (WBC) count Ordered By: ED PROVIDER on 08-14-2024 WBC (Bld) [#/Vol] 1.9 10*3/uL Low 4.4-11.0 [facility] White blood cell countOrdere d By: Kishore Nicolas on 08-14-2024 Urine WBC 50-100 SEEN /hpf 0-5 [facility] White blood cell count 50-100 SEEN /hpf 0-5 [facility] aPTT Coag (PPP) [Time]Ordere d By: Kishore Nicolas on 08-14-2024 aPTT Coag (Bld) [Time] 26.3 s 24.1-36.2 [facility] Absolute lymphocyte countOrd ered By: Kelvin Han on 07-19-2024 Lymphocytes Auto (Unsp spec) [#/Vol] 0.56 10*3/uL Low 0.83-4.51 [facility] Absolute neutrophil countOrd ered By: Kelvin Han on 07-19-2024 Neutrophils (Bld) [#/Vol] 2.9 10*3/uL 2.0-7.7 [facility] Albumin to globulin ratioOrd ered By: Kelvin Han on 07-19-2024 Albumin/Globulin [Mass ratio] 0.7 {ratio} Low 0.9-2.4 [facility] Automated lymphocyte count a s percentage of total leukocytesOrdered By: Kelvin Han on 07-19-2024 Lymphocytes/100 WBC Auto (Unsp spec) 13.0 % Low 19-41 [facility] Basophil percentageOrdered B y: Kelvin Han on 07-19-2024 Basophils/100 WBC (Bld) 0.5 % 0-1 [facility] Bilirubin, totalOrdered By: Kelvin Han on 07-19-2024 Bilirubin [Mass/Vol] 0.30 mg/dL 0.20-1.00 [facility] Comment on above: For patients on eltr ombopag therapy, use of Dimension Entiat TBIL is not recommended. Blood urea nitrogen (BUN)/cr eatinine ratioOrdered By: Kelvin Han on 07-19-2024 Urea nitrogen/Creatinine [Mass ratio] 16.3 mg/mg 10-20 [facility] CBC W/Diff, Automatedon 07-07 Absolute Lymph 0.56 X10 3/uL Low 0.83-4.51 [facility] Comment on above: Order Comment: Inter face Comments:Hives reoccuringOrder Date: 07/19/24Order Info: 0184-1 - CBCDComments: Hives reoccuring Performed By: #### L 500.4050, L100.0100, L501.9520 ####[facility] [address] [place], [address] Absolute Neut 2.9 X10 3/uL Normal 2.0-7.7 [facility] Comment on above: Order Comment: Inter face Comments:Hives reoccuringOrder Date: 07/19/24Order Info: 01809-04 - CBCDComments: Hives reoccuring Performed By: #### L 500.4050, L100.0100, L501.9520 ####[facility] [address] [place], [address] Basophils/100 WBC (Bld) 0.5 % Normal 0-1 [facility] Comment on above: Order Comment: Inter face Comments:Hives reoccuringOrder Date: 07/19/24Order Info: 183-06 - CBCDComments: Hives reoccuring Performed By: #### L 500.4050, L100.0100, L501.9520 ####[facility] [address] [place], [address] Eosinophils/100 WBC (Bld) 9.0 % High 0-5 [facility] Comment on above: Order Comment: Inter face Comments:Hives reoccuringOrder Date: 07/19/24Order Info: 183-06 - CBCDComments: Hives reoccuring Performed By: #### L 500.4050, L100.0100, L501.9520 ####[facility] [address] [place], [address] Erythrocyte distribution width (RBC) [Ratio] 13.7 % Normal 11.6-14.6 [facility] Comment on above: Order Comment: Inter face Comments:Hives reoccuringOrder Date: 07/19/24Order Info: 183-06 - CBCDComments: Hives reoccuring Performed By: #### L 500.4050, L100.0100, L501.9520 ####[facility] [address] [place], [address] Hematocrit (Bld) [Volume fraction] 35.0 % Low 40-54 [facility] Comment on above: Order Comment: Inter face Comments:Hives reoccuringOrder Date: 07/19/24Order Info: 183-06 - CBCDComments: Hives reoccuring Performed By: #### L 500.4050, L100.0100, L501.9520 ####[facility] [address] [place], [address] Hemoglobin (Bld) [Mass/Vol] 11.2 g/dL Low 13.0-16.5 [facility] Comment on above: Order Comment: Inter face Comments:Hives reoccuringOrder Date: 07/19/24Order Info: 018- - CBCDComments: Hives reoccuring Performed By: #### L 500.4050, L100.0100, L501.9520 ####[facility] [address] [place], [address] IG% 0.200 Normal 0.0-0.9 [facility] Comment on above: Order Comment: Inter face Comments:Hives reoccuringOrder Date: 07/19/24Order Info: 01809-04 - CBCDComments: Hives reoccuring Result Comment: IG% - Immature Granulocytes (promyelocytes, myelocytes andmetamyelocytes) > 1% indicates that a LEFT SHIFT is Present. Performed By: #### L 500.4050, L100.0100, L501.9520 ####[facility] [address] [place], [address] Lymphocytes/100 WBC (Bld) 13.0 % Low 19-41 [facility] Comment on above: Order Comment: Inter face Comments:Hives reoccuringOrder Date: 07/19/24Order Info: 0184- - CBCDComments: Hives reoccuring Performed By: #### L 500.4050, L100.0100, L501.9520 ####[facility] [address] [place], [address] MCH (RBC) [Entitic mass] 27.7 pg Normal 27.0-32.0 [facility] Comment on above: Order Comment: Inter face Comments:Hives reoccuringOrder Date: 07/19/24Order Info: 018- - CBCDComments: Hives reoccuring Performed By: #### L 500.4050, L100.0100, L501.9520 ####[facility] [address] [place], [address] MCHC (RBC) [Mass/Vol] 32.0 g/dL Normal 32-36 [facility] Comment on above: Order Comment: Inter face Comments:Hives reoccuringOrder Date: 07/19/24Order Info: 183-06 - CBCDComments: Hives reoccuring Performed By: #### L 500.4050, L100.0100, L501.9520 ####[facility] [address] [place], [address] MCV (RBC) [Entitic vol] 86.4 fL Normal 80-94 [facility] Comment on above: Order Comment: Inter face Comments:Hives reoccuringOrder Date: 07/19/24Order Info: 183-06 - CBCDComments: Hives reoccuring Performed By: #### L 500.4050, L100.0100, L501.9520 ####[facility] [address] [place], [address] Monocytes/100 WBC (Bld) 10.9 % High 0-10 [facility] Comment on above: Order Comment: Inter face Comments:Hives reoccuringOrder Date: 07/19/24Order Info: 183-06 - CBCDComments: Hives reoccuring Performed By: #### L 500.4050, L100.0100, L501.9520 ####[facility] [address] [place], [address] Neutrophils/100 WBC (Bld) 66.4 % Normal 47-70 [facility] Comment on above: Order Comment: Inter face Comments:Hives reoccuringOrder Date: 07/19/24Order Info: 183-06 - CBCDComments: Hives reoccuring Performed By: #### L 500.4050, L100.0100, L501.9520 ####[facility] [address] [place], [address] Nucleated RBC (Bld) [#/Vol] 0 10*3/uL Normal 0-5 [facility] Comment on above: Order Comment: Inter face Comments:Hives reoccuringOrder Date: 07/19/24Order Info: 183-06 - CBCDComments: Hives reoccuring Performed By: #### L 500.4050, L100.0100, L501.9520 ####[facility] [address] [place], [address] Platelet mean volume (Bld) [Entitic vol] 10.4 fL Normal 6.2-12.0 [facility] Comment on above: Order Comment: Inter face Comments:Hives reoccuringOrder Date: 07/19/24Order Info: 183-06 - CBCDComments: Hives reoccuring Performed By: #### L 500.4050, L100.0100, L501.9520 ####[facility] [address] [place], [address] Platelets (Bld) [#/Vol] 224 10*3/uL Normal 150-450 [facility] Comment on above: Order Comment: Inter face Comments:Hives reoccuringOrder Date: 07/19/24Order Info: 183-06 - CBCDComments: Hives reoccuring Performed By: #### L 500.4050, L100.0100, L501.9520 ####[facility] [address] [place], [address] RBC (Bld) [#/Vol] 4.05 10*6/uL Low 4.6-6.2 [facility] Comment on above: Order Comment: Inter face Comments:Hives reoccuringOrder Date: 07/19/24Order Info: 183-06 - CBCDComments: Hives reoccuring Performed By: #### L 500.4050, L100.0100, L501.9520 ####[facility] [address] [place], [address] RDW SD 42.9 fl Normal 35.1-43.9 [facility] Comment on above: Order Comment: Inter face Comments:Hives reoccuringOrder Date: 07/19/24Order Info: 0184-1 - CBCDComments: Hives reoccuring Performed By: #### L 500.4050, L100.0100, L501.9520 ####[facility] [address] [place], [address] WBC (Bld) [#/Vol] 4.3 10*3/uL Low 4.4-11.0 [facility] Comment on above: Order Comment: Inter face Comments:Hives reoccuringOrder Date: 07/19/24Order Info: 01809-04 - CBCDComments: Hives reoccuring Performed By: #### L 500.4050, L100.0100, L501.9520 ####[facility] [address] [place], [address] Carbon dioxide measurementOr dered By: Kelvin Han on 07-19-2024 CO2 [Moles/Vol] 23.0 mmol/L 21.0-32.0 [facility] Chloride measurementOrdered By: Kelvin Han on 07-19-2024 Chloride [Moles/Vol] 106 mmol/L 98-107 [facility] Comprehensive Metabolic Prof ilon 07-19-2024 Albumin [Mass/Vol] 3.0 g/dL Low 3.2-5.0 [facility] Comment on above: Order Comment: Inter face Comments:Hives reoccuringOrder Date: 07/19/24Order Info: 0786-1 - CMPOrder Info: 3016-3 - TSHComments: Hives reoccuringHives reoccuring Performed By: #### L 500.4050, L100.0100, L501.9520 ####[facility] [address] [place], [address] Albumin/Globulin [Mass ratio] 0.7 {ratio} Low 0.9-2.4 [facility] Comment on above: Order Comment: Inter face Comments:Hives reoccuringOrder Date: 07/19/24Order Info: 0786-1 - CMPOrder Info: [id number] - TSHComments: Hives reoccuringHives reoccuring Performed By: #### L 500.4050, L100.0100, L501.9520 ####[facility] [address] [place], [address] ALK P 76 U/L Normal 45-117 [facility] Comment on above: Order Comment: Inter face Comments:Hives reoccuringOrder Date: 07/19/24Order Info: 0786- - CMPOrder Info: [id number] - TSHComments: Hives reoccuringHives reoccuring Performed By: #### L 500.4050, L100.0100, L501.9520 ####[facility] [address] [place], [address] ALT [Catalytic activity/Vol] 19 U/L Normal 16-61 [facility] Comment on above: Order Comment: Inter face Comments:Hives reoccuringOrder Date: 07/19/24Order Info: 0786-1 - CMPOrder Info: [id number] - TSHComments: Hives reoccuringHives reoccuring Performed By: #### L 500.4050, L100.0100, L501.9520 ####[facility] [address] [place], [address] AST [Catalytic activity/Vol] 20 U/L Normal 15-37 [facility] Comment on above: Order Comment: Inter face Comments:Hives reoccuringOrder Date: 07/19/24Order Info: 0786-1 - CMPOrder Info: [id number] - TSHComments: Hives reoccuringHives reoccuring Performed By: #### L 500.4050, L100.0100, L501.9520 ####[facility] [address] [place], [address] Bilirubin [Mass/Vol] 0.30 mg/dL Normal 0.20-1.00 [facility] Comment on above: Order Comment: Inter face Comments:Hives reoccuringOrder Date: 07/19/24Order Info: 0786-1 - CMPOrder Info: 3016-3 - TSHComments: Hives reoccuringHives reoccuring Result Comment: For patients on eltrombopag therapy, use of Dimension Entiat TBIL is not recommended. Performed By: #### L 500.4050, L100.0100, L501.9520 ####[facility] [address] [place], [address] BUN/CRE 16.3 RATIO Normal 10-20 [facility] Comment on above: Order Comment: Inter face Comments:Hives reoccuringOrder Date: 07/19/24Order Info: 785-06 - CMPOrder Info: 3 - TSHComments: Hives reoccuringHives reoccuring Performed By: #### L 500.4050, L100.0100, L501.9520 ####[facility] [address] [place], [place], [address] CA,Total 9.2 mg/dL Normal 8.5-10.1 [facility] Comment on above: Order Comment: Inter face Comments:Hives reoccuringOrder Date: 07/19/24Order Info: 07 - CMPOrder Info: 3 - TSHComments: Hives reoccuringHives reoccuring Performed By: #### L 500.4050, L100.0100, L501.9520 ####[facility] [address] [facility] [address] [place], [place], [address] Chloride [Moles/Vol] 106 mmol/L Normal 98-107 [facility] Comment on above: Order Comment: Inter face Comments:Hives reoccuringOrder Date: 07/19/24Order Info: 07- - CMPOrder Info: 3 - TSHComments: Hives reoccuringHives reoccuring Performed By: #### L 500.4050, L100.0100, L501.9520 ####[facility] [address] [place], [address] CO2 [Moles/Vol] 23.0 mmol/L Normal 21.0-32.0 [facility] Comment on above: Order Comment: Inter face Comments:Hives reoccuringOrder Date: 07/19/24Order Info: 0786-1 - CMPOrder Info: 3016-3 - TSHComments: Hives reoccuringHives reoccuring Performed By: #### L 500.4050, L100.0100, L501.9520 ####[facility] [address] [place], [address] Creatinine [Mass/Vol] 1.47 mg/dL High 0.70-1.30 [facility] Comment on above: Order Comment: Inter face Comments:Hives reoccuringOrder Date: 07/19/24Order Info: 0786-1 - CMPOrder Info: 3016-3 - TSHComments: Hives reoccuringHives reoccuring Result Comment: The validity of the calculated GFR GFRAA in patients over70 years has not been determined. Clinical correlation isessential. Performed By: #### L 500.4050, L100.0100, L501.9520 ####[facility] [address] [place], [address] EST GFR - AA 60 mL/min Normal >60 [facility] Comment on above: Order Comment: Inter face Comments:Hives reoccuringOrder Date: 07/19/24Order Info: 0786-1 - CMPOrder Info: 3016-3 - TSHComments: Hives reoccuringHives reoccuring Result Comment: Afri can Cameroonian GFR Calc Performed By: #### L 500.4050, L100.0100, L501.9520 ####[facility] [address] [place], [address] GAP 7 Normal 5-15 [facility] Comment on above: Order Comment: Inter face Comments:Hives reoccuringOrder Date: 07/19/24Order Info: 0786- - CMPOrder Info: 3 - TSHComments: Hives reoccuringHives reoccuring Performed By: #### L 500.4050, L100.0100, L501.9520 ####[facility] [address] [place], [address] GFR/1.73 sq M.predicted among non-blacks MDRD (S/P/Bld) [Vol rate/Area] 49 mL/min/{1.73_m2} Low >60 [facility] Comment on above: Order Comment: Inter face Comments:Hives reoccuringOrder Date: 07/19/24Order Info: 07- - CMPOrder Info: 3 - TSHComments: Hives reoccuringHives reoccuring Result Comment: Non- GFR Calc Performed By: #### L 500.4050, L100.0100, L501.9520 ####[facility] [address] [place], [address] Globulin (S) [Mass/Vol] 4.6 g/dL High 2.2-4.2 [facility] Comment on above: Order Comment: Inter face Comments:Hives reoccuringOrder Date: 07/19/24Order Info: 07- - CMPOrder Info: 3 - TSHComments: Hives reoccuringHives reoccuring Performed By: #### L 500.4050, L100.0100, L501.9520 ####[facility] [address] [place], [address] Glucose [Mass/Vol] 118 mg/dL High 74-106 [facility] Comment on above: Order Comment: Inter face Comments:Hives reoccuringOrder Date: 07/19/24Order Info: 07- - CMPOrder Info: 3 - TSHComments: Hives reoccuringHives reoccuring Result Comment: Fast ing Glucose result from 100 to 125 mg/dLsuggests IMPAIRED HOMEOSTASIS per A.D.A. criteria. Performed By: #### L 500.4050, L100.0100, L501.9520 ####[facility] [address] [place], [address] Potassium [Moles/Vol] 4.4 mmol/L Normal 3.5-5.1 [facility] Comment on above: Order Comment: Inter face Comments:Hives reoccuringOrder Date: 07/19/24Order Info: 0786-1 - CMPOrder Info: 6-3 - TSHComments: Hives reoccuringHives reoccuring Performed By: #### L 500.4050, L100.0100, L501.9520 ####[facility] [address] [place], [address] Sodium [Moles/Vol] 136 mmol/L Normal 136-145 [facility] Comment on above: Order Comment: Inter face Comments:Hives reoccuringOrder Date: 07/19/24Order Info: 0786-1 - CMPOrder Info: 63 - TSHComments: Hives reoccuringHives reoccuring Performed By: #### L 500.4050, L100.0100, L501.9520 ####[facility] [address] [place], [address] T PROT 7.6 g/dL Normal 6.4-8.2 [facility] Comment on above: Order Comment: Inter face Comments:Hives reoccuringOrder Date: 07/19/24Order Info: 0786-1 - CMPOrder Info: 63 - TSHComments: Hives reoccuringHives reoccuring Performed By: #### L 500.4050, L100.0100, L501.9520 ####[facility] [address] [place], [address] Urea nitrogen [Mass/Vol] 24 mg/dL High 7-18 [facility] Comment on above: Order Comment: Inter face Comments:Hives reoccuringOrder Date: 07/19/24Order Info: 0786-1 - CMPOrder Info: 3016-3 - TSHComments: Hives reoccuringHives reoccuring Performed By: #### L 500.4050, L100.0100, L501.9520 ####[facility] [address] [facility] [place], [place], [id number] Eosinophil percentageOrdered By: Kelvin Han on 07-19-2024 Eosinophils/100 WBC (Bld) 9.0 % High 0-5 [facility] Erythrocyte Sed Rateon 07-19 SED RATE 33 mm/hr High 0-20 [facility] Comment on above: Order Comment: Inter face Comments:Hives reoccuringOrder Date: 07/19/24Order Info: 0184-1 - CBCDComments: Hives reoccuring Performed By: #### L 101.9900 ####[facility] [address] [facility] [place], [place], [id number] Erythrocyte distribution wid th ratioOrdered By: Kelvin Han on 07-19-2024 Erythrocyte distribution width (RBC) [Ratio] 13.7 % 11.6-14.6 [facility] Erythrocyte distribution wid th standard deviationOrdered By: Kelvin Han on 07-19-2024 Erythrocyte distribution width (RBC) [Entitic vol] 42.9 fL 35.1-43.9 [facility] Erythrocyte distribution width (RBC) [Ratio] 42.9 fl 35.1-43.9 [facility] Erythrocyte sedimentation ra teOrdered By: Kelvin Han on 07-19-2024 ESR (Bld) [Velocity] 33 mm/h High 0-20 [facility] Estimated glomerular filtrat ion rate (GFR) AmericanOrdered By: Kelvin Han on 07-19-2024 Estimated GFR (MDRD) Amer 60 mL/min >60 [facility] Comment on above: GFR Calc Glomerular filtration rate ( GFR) estimationOrdered By: Kelvin Han on 07-19-2024 Estimated GFR (MDRD) Non-Af Amer 49 mL/min Low >60 [facility] Comment on above: Non- GFR Calc GFR/1.73 sq M.predicted among non-blacks MDRD (S/P/Bld) [Vol rate/Area] 49 mL/min/{1.73_m2} Low >60 [facility] Comment on above: Non- GFR Calc Glucose measurementOrdered B y: Kelvin Han on 07-19-2024 Glucose [Mass/Vol] 118 mg/dL High 74-106 [facility] Comment on above: Fasting Glucose resu lt from 100 to 125 mg/dL suggests IMPAIRED HOMEOSTASIS per A.D.A. criteria. Hematocrit Auto (Bld) [Volum e fraction]Ordered By: Kelvin Han on 07-19-2024 Hematocrit (Bld) [Volume fraction] 35.0 % Low 40-54 [facility] Hemoglobin measurementOrdere d By: Kelvin Han on 07-19-2024 Hemoglobin (Bld) [Mass/Vol] 11.2 g/dL Low 13.0-16.5 [facility] Immature granulocytes/100 WB C Auto (Bld)Ordered By: Kelvin Han on 07-19-2024 Immature granulocytes/100 WBC (Bld) 0.200 % 0.0-0.9 [facility] Comment on above: IG% - Immature Granu locytes (promyelocytes, myelocytes and metamyelocytes) > 1% indicates that a LEFT SHIFT is Present. Laboratory - Chemistry and C hemistry - challengeOrdered By: Kelvin Han on 07-19-2024 AST [Catalytic activity/Vol] 20 U/L 15-37 [facility] Lymphocytes Auto (Unsp spec) [#/Vol]Ordered By: Kelvin Han on 07-19-2024 Lymphocytes (Bld) [#/Vol] 0.56 10*3/uL Low 0.83-4.51 [facility] Lymphocytes/100 WBC Auto (Un sp spec)Ordered By: Kelvin Han on 07-19-2024 Lymphocytes/100 WBC (Bld) 13.0 % Low 19-41 [facility] MCV (mean corpuscular volume ) determinationOrdered By: Kelvin Han on 07-19-2024 MCV (RBC) [Entitic vol] 86.4 fL 80-94 [facility] Mean corpuscular hemoglobin (MCH) determinationOrdered By: Kelvin Han on 07-19-2024 MCH (RBC) [Entitic mass] 27.7 pg 27.0-32.0 [facility] Mean corpuscular hemoglobin concentration (MCHC) determinationOrdered By: Kelvin Han on 07-19-2024 MCHC (RBC) [Mass/Vol] 32.0 g/dL 32-36 [facility] Mean platelet volume determi nationOrdered By: Kelvin Han on 07-19-2024 Platelet mean volume (Bld) [Entitic vol] 10.4 fL 6.2-12.0 [facility] Monocyte percentageOrdered B y: Kelvin Han on 07-19-2024 Monocytes/100 WBC (Bld) 10.9 % High 0-10 [facility] Neutrophil percentageOrdered By: Kelvin Han on 07-19-2024 Neutrophils/100 WBC (Bld) 66.4 % 47-70 [facility] Nucleated red blood cell per centageOrdered By: Kelvin Han on 07-19-2024 Nucleated RBC/100 WBC (Bld) [Ratio] 0 % 0-5 [facility] Platelet countOrdered By: Itzel Han on 07-19-2024 Platelets (Bld) [#/Vol] 224 10*3/uL 150-450 [facility] Potassium measurementOrdered By: Kelvin Han on 07-19-2024 Potassium [Moles/Vol] 4.4 mmol/L 3.5-5.1 [facility] RBC Auto (Bld) [#/Vol]Ordere d By: Kelvin Han on 07-19-2024 RBC (Bld) [#/Vol] 4.05 10*6/uL Low 4.6-6.2 [facility] Serum anion gap measurementO rdered By: Kelvin Han on 07-19-2024 Anion gap [Moles/Vol] 7 mmol/L 5-15 [facility] Serum globulin measurementOr dered By: Kelvin Han on 07-19-2024 Globulin (S) [Mass/Vol] 4.6 g/dL High 2.2-4.2 [facility] Serum or plasma alanine morris otransferase (ALT) measurementOrdered By: Kelvin Han on 07-19-2024 ALT [Catalytic activity/Vol] 19 U/L 16-61 [facility] Serum or plasma albumin janusz urement (mass/volume)Ordered By: Kelvin Han on 07-19-2024 Albumin [Mass/Vol] 3.0 g/dL Low 3.2-5.0 [facility] Serum or plasma alkaline trice sphatase measurementOrdered By: Kelvin Han on 07-19-2024 ALP [Catalytic activity/Vol] 76 U/L 45-117 [facility] Serum or plasma calcium janusz urement (mass/volume)Ordered By: Kelvin Han on 07-19-2024 Calcium [Mass/Vol] 9.2 mg/dL 8.5-10.1 [facility] Serum or plasma creatinine m easurement (mass/volume)Ordered By: Kelvin Han on 07-19-2024 Creatinine [Mass/Vol] 1.47 mg/dL High 0.70-1.30 [facility] Comment on above: The validity of the calculated GFR & GFRAA in patients over 70 years has not been determined. Clinical correlation is essential. Serum or plasma thyroid stim ulating hormone (TSH) measurement (units/volume)Ordered By: Kelvin Han on 07-19-2024 TSH Qn 2.460 uIU/mL 0.358-3.740 [facility] Serum or plasma urea nitroge n measurement (mass/volume)Ordered By: Kelvin Han on 07-19-2024 Urea nitrogen [Mass/Vol] 24 mg/dL High 7-18 [facility] Sodium levelOrdered By: Panfilo Han on 07-19-2024 Sodium [Moles/Vol] 136 mmol/L 136-145 [facility] TSH QnOrdered By: Eduardo Han on 07-19-2024 Thyroid Stimulating Hormone (TSH) 2.460 uIU/mL 0.358-3.740 [facility] Thyroid Stim Hormone (TSH)on 07-19-2024 TSH 2.460 uIU/mL Normal 0.358-3.740 [facility] Comment on above: Order Comment: Inter face Comments:Hives reoccuringOrder Date: 07/19/24Order Info: 0786-1 - CMPOrder Info: 3016-3 - TSHComments: Hives reoccuring Performed By: #### L 500.4050, L100.0100, L501.9520 ####[facility] [address] [place], [address] Total proteinOrdered By: Yamila Han on 07-19-2024 Protein [Mass/Vol] 7.6 g/dL 6.4-8.2 [facility] White blood cell (WBC) count Ordered By: Kelvin Han on 07-19-2024 WBC (Bld) [#/Vol] 4.3 10*3/uL Low 4.4-11.0 [facility] Emergency Department Summary on 06-08-2024 Emergency Department Summary Normal [facility] CNOVon 05-11-2024 CNOV Office Visit (UROSMN) BARBARA MILAN ([id number]) 1945 M Date Time Provider Department 05/11/24 1:30 PM MATT GARCIA UROSMN During your visit today, we recorded the following information about you: Keiry Michaels CT 05/11/2024 1:59 PM Signed Patient ID with (2) Identifiers, Verified by: ESDRAS Good Actual procedure/procedure scheduled: Yes Performing provider/scheduled provider: Yes Patient was roomed in: Q9- 07 [employer] Head offered:Patient declines Patient arrived in the room [...] Education Session: None Instruction Provided To: Patient Medical Staff Director Present: no Discipline: Nursing Learning Topic: SURVIVAL [...] if at all possible Matt Garcia MD [facility], [place] 05/11/2024 2:03 PM Signed UNIVERSAL PROTOCOL / [...] patient an (more content not included)... Normal [facility] ANES POSTPROC EVALon 024 ANES POSTPROC EVAL HNO ID: [id number] Author: MARKO STUART MD Service: ? Author Type: Anesthesiologist Type: Anesthesia Postprocedure Evaluation Filed: 04/02/2024 16:36 Note Text: POST ANESTHESIA EVALUATION NOTE : 1945 Procedure Summary Date: 04/02/24 Room / Location: [address] [facility] Anesthesia Start: 1305 Anesthesia [...] April 02, 2024 TIME: 4:34 PM CSN: [id number] Normal [facility] ANES PRE-OPon 04-02-2024 ANES PRE-OP HNO ID: [id number] Author: KAVIN CONTE MD Service: ? Author [...] and consent discussed: yes. Patient / Responsible Libertarian agrees to proceed: yes Patient / Surrogate [...] tablet by mouth twice daily. mv with vcv-ZO-afdyhsnb-gink go (ONE-A-DAY MEN'S 50+ ADVANTAGE) 400-300-120 mcg-mcg-mg [...] April 02, 2024 TIME: 1:04 PM CSN: [id number] Normal [facility] HISTORY PHYSICALon HISTORY PHYSICAL HNO ID: [id number] Author: MATT GARCIA MD Service: Urology Author [...] not taking: Reported on 12/16/2023) mv with jed-QX-cfkhelei-gink go (ONE-A-DAY MEN'S 50+ ADVANTAGE) 400-300-120 mcg-mcg-mg [...] 3. ----- Margie Khan MD Urology, PGY6 [phone] 12:18 PM April 02, 2024 Please page urology implementation consultant pager, [phone], after 5PM and on weekends Normal [facility] OPERATIVE NOon 04-02-2024 OPERATIVE NO HNO ID: [id number] Author: MATT GARCIA MD Service: Urology Author [...] Garcia MD Associate Staff, Department of Urology [facility] OPERATIVE/PROCEDURE REPORT LOG ID: [id number] Surgery/Procedure Date: 04/02/2024 Incision/Procedure Start Time: 1:33 PM Incision Close/Procedure End Time: 8:13 PM Surgeon(s)/Procedura list(s) and Retail Office Associate(s): Surgeons and Role: * Matt Garcia MD [...] was left in place. A 10 Fr [place] tip catheter was advanced over the wire [...] * Implantable Devices: None Drains: 20 Fr [place] tip Worthy catheter (per urethra) 16 Fr SPT Complications: None Qualifier: None Post-Operative Plan: -Urethral worthy out in 3 days, continue cipro until worthy out -Cap SPT after urethral worthy removed to attempt voiding per urethra -Follow up in 2 months for cystoscopy The primary surgeon/proceduralis t performed the entire procedure with assistance. Margie Khan MD dictating on behalf of Matt Garcia MD [facility] BARBARA MILAN ([id number]) 1945 M Date Time Provider Department 03/28/24 [...] intramuscularly every 4 months. - mv with qyo-ZB-lynyofzb-gink go (ONE-A-DAY MEN'S 50+ ADVANTAGE) 400-300-120 mcg-mcg-mg [...] Status:Closed by AMALIA CHILDERS on 03/28/24 Normal [facility] Emergency Department Summary on 03-23-2024 Emergency Department Summary Normal [facility] CBC panel Auto (Bld)on 03-02 Erythrocyte distribution width (RBC) [Ratio] 13.0 % Normal 11.5-15.0 [facility] Comment on above: Order Comment: Speci men Type: BLOOD SPECIMENOrdering Facility: [facility] Address: [address] [place] [address] Performed By: #### 5 8410-2 ####[facility] LABIA [id number] [place] [address] [place] Hematocrit (Bld) [Volume fraction] 33.7 % Low 39.0-51.0 [facility] Comment on above: Order Comment: Speci men Type: BLOOD SPECIMENOrdering Facility: [facility] Address: [address] [place] [address] Performed By: #### 5 8410-2 ####[facility] LABCLIA [id number] [place] [id number] [place] Hemoglobin (Bld) [Mass/Vol] 10.6 g/dL Low 13.0-17.0 [facility] Comment on above: Order Comment: Speci men Type: BLOOD SPECIMENOrdering Facility: [facility] Address: [address] [place] [address] Performed By: #### 5 8410-2 ####[facility] LABCLIA [id number] [place] [address] [place] MCH (RBC) [Entitic mass] 28.2 pg Normal 26.0-34.0 [facility] Comment on above: Order Comment: Speci men Type: BLOOD SPECIMENOrdering Facility: [facility] Address: [address] [place] [address] Performed By: #### 5 8410-2 ####[facility] [id number] [place] [address] [place] MCHC (RBC) [Mass/Vol] 31.5 g/dL Normal 30.5-36.0 [facility] Comment on above: Order Comment: Speci men Type: BLOOD SPECIMENOrdering Facility: [facility] Address: [address] [place] [address] Performed By: #### 5 8410-2 ####[facility] [id number] [place] [address] [place] MCV (RBC) [Entitic vol] 89.6 fL Normal 80.0-100.0 [facility] Comment on above: Order Comment: Speci men Type: BLOOD SPECIMENOrdering Facility: [facility] Address: [address] [place] [address] Performed By: #### 5 8410-2 ####[facility] [id number] [place] [address] [place] Nucleated RBC (Bld) [#/Vol] 10*3/uL Normal <0.01 [facility] Comment on above: Order Comment: Speci men Type: BLOOD SPECIMENOrdering Facility: [facility] Address: [address] [place] [address] Performed By: #### 5 8410-2 ####[facility] [id number] [place] [address] [place] Platelet mean volume (Bld) [Entitic vol] 10.3 fL Normal 9.0-12.7 [facility] Comment on above: Order Comment: Speci men Type: BLOOD SPECIMENOrdering Facility: [facility] Address: [address] [place] [address] Performed By: #### 5 8410-2 ####[facility] LABIA [id number] [place] [address] [place] Platelets (Bld) [#/Vol] 292 10*3/uL Normal 150-400 [facility] Comment on above: Order Comment: Speci men Type: BLOOD SPECIMENOrdering Facility: [facility] Address: [address] [place] [address] Performed By: #### 5 8410-2 ####[facility] LABIA [id number] [place] [address] [place] RBC (Bld) [#/Vol] 3.76 10*6/uL Low 4.20-6.00 [facility] Comment on above: Order Comment: Speci men Type: BLOOD SPECIMENOrdering Facility: [facility] Address: [address] [place] [address] Performed By: #### 5 8410-2 ####[facility] LABIA [id number] [place] [address] [place] WBC (Bld) [#/Vol] 6.35 10*3/uL Normal 3.70-11.00 [facility] Comment on above: Order Comment: Speci men Type: BLOOD SPECIMENOrdering Facility: [facility] Address: [address] [place] [address] Performed By: #### 5 8410-2 ####[facility] LABIA [id number] [place] [address] [place] CNNURSEon 03-02-2024 CNNURSE Nurse Visit (UROLMN) BARBAAR MILAN ([id number]) 1945 M Date Time Provider Department 03/02/24 [...] (RECOMMENDATION): None Supplies ordered and sent to [facility] medical. Electronically Signed By: Kenyetta Garcia LPN [...] LPN - Fully Assessed Reason for Visit: [facility] Teaching [342] Primary Visit Diagnosis:Stricture of bladder [...] intramuscularly every 4 months. - mv with ins-JS-ynbvfvlm-gink go (ONE-A-DAY MEN'S 50+ ADVANTAGE) 400-300-120 mcg-mcg-mg [...] Status:Closed by KENYETTA GARCIA on 03/02/24 Normal [facility] Comprehensive metabolic 2000 panelon 03-02-2024 Albumin [Mass/Vol] 4.0 g/dL Normal 3.9-4.9 [facility] Comment on above: Order Comment: Speci men Type: BLOOD SPECIMENOrdering Facility: [facility] Address: [address] [place] [address] Performed By: #### 2 4323-8 ####[facility] LABCLIA [id number] [place] [address] [place] ALP [Catalytic activity/Vol] 86 U/L Normal 38-113 [facility] Comment on above: Order Comment: Speci men Type: BLOOD SPECIMENOrdering Facility: [facility] Address: [address] [place] [address] Performed By: #### 2 4323-8 ####[facility] LABCLIA [id number] [place] [address] [place] ALT [Catalytic activity/Vol] 11 U/L Normal 10-54 [facility] Comment on above: Order Comment: Speci men Type: BLOOD SPECIMENOrdering Facility: [facility] Address: [address] [place] [address] Performed By: #### 2 4323-8 ####[facility] LABCLIA [id number] [place] [address] [place] Anion gap [Moles/Vol] 11 mmol/L Normal 8-15 [facility] Comment on above: Order Comment: Speci men Type: BLOOD SPECIMENOrdering Facility: [facility] Address: [address] [place] [place] [id number] Performed By: #### 2 4323-8 ####[facility] LABCLIA [id number] [place] [address] [place] AST [Catalytic activity/Vol] 19 U/L Normal 14-40 [facility] Comment on above: Order Comment: Speci men Type: BLOOD SPECIMENOrdering Facility: [facility] Address: [address] [place] [address] Performed By: #### 2 4323-8 ####[facility] LABCLIA [id number] [place] [address] [place] Bilirubin [Mass/Vol] 0.2 mg/dL Normal 0.2-1.3 [facility] Comment on above: Order Comment: Speci men Type: BLOOD SPECIMENOrdering Facility: [facility] Address: [address] [place] [address] Performed By: #### 2 4323-8 ####[facility] LABCLIA [id number] [place] [address] [place] Calcium [Mass/Vol] 9.6 mg/dL Normal 8.5-10.2 [facility] Comment on above: Order Comment: Speci men Type: BLOOD SPECIMENOrdering Facility: [facility] Address: [address] [place], [place] [id number] Performed By: #### 2 4323-8 ####[facility] LABCLIA [id number] [place] [id number] [place] Chloride [Moles/Vol] 105 mmol/L Normal 98-107 [facility] Comment on above: Order Comment: Speci men Type: BLOOD SPECIMENOrdering Facility: [facility] Address: [address] [place] [address] Performed By: #### 2 4323-8 ####[facility] LABCLIA [id number] [place] [address] [place] CO2 [Moles/Vol] 23 mmol/L Normal 22-30 [facility] Comment on above: Order Comment: Speci men Type: BLOOD SPECIMENOrdering Facility: [facility] Address: [address] [place] [address] Performed By: #### 2 4323-8 ####[facility] LABCLIA [id number] [place] [address] [place] Creatinine [Mass/Vol] 1.16 mg/dL Normal 0.73-1.22 [facility] Comment on above: Order Comment: Speci men Type: BLOOD SPECIMENOrdering Facility: [facility] Address: [address] [place] [address] Performed By: #### 2 4323-8 ####[facility] LABCLIA [id number] [place] [address] [place] Creatinine and Glomerular filtration rate.predicted panel (S/P/Bld) 65 mL/min/1.73m??? Normal >=60 [facility] Comment on above: Order Comment: Speci men Type: BLOOD SPECIMENOrdering Facility: [facility] Address: [address] [place] [address] Result Comment: Christy mated Glomerular Filtration Rate [...] actual GFR. Performed By: #### 2 4323-8 ####[facility] LABCLIA [id number] [place] [address] [place] Glucose [Mass/Vol] 101 mg/dL High 74-99 [facility] Comment on above: Order Comment: Speci men Type: BLOOD SPECIMENOrdering Facility: [facility] Address: [address] [place] [address] Result Comment: The [place] Diabetes Association (ADA) provides guidance for cutoff [...] Standards of Medical Care in Diabetes 2016, [place] [employer]. Diabetes Care. 2016.39(Suppl 1). Performed By: #### 2 4323-8 ####[facility] LABCLIA [id number] [place] [address] [place] Potassium [Moles/Vol] 4.7 mmol/L Normal 3.7-5.1 [facility] Comment on above: Order Comment: Speci men Type: BLOOD SPECIMENOrdering Facility: [facility] Address: [address] [place] [address] Performed By: #### 2 4323-8 ####[facility] LABCLIA [id number] [place] [address] [place] Protein [Mass/Vol] 7.3 g/dL Normal 6.3-8.0 [facility] Comment on above: Order Comment: Speci men Type: BLOOD SPECIMENOrdering Facility: [facility] Address: [address] [place] [address] Performed By: #### 2 4323-8 ####[facility] LABCLIA [id number] [place] [address] [place] Sodium [Moles/Vol] 139 mmol/L Normal 136-144 [facility] Comment on above: Order Comment: Speci men Type: BLOOD SPECIMENOrdering Facility: [facility] Address: [address] [place] [address] Performed By: #### 2 4323-8 ####[facility] LABCLIA [id number] [place] [address] [place] Urea nitrogen [Mass/Vol] 24 mg/dL Normal 9- [facility] Comment on above: Order Comment: Speci men Type: BLOOD SPECIMENOrdering Facility: [facility] Address: [address] [place] [address] Performed By: #### 2 4323-8 ####[facility] LABCLIA [id number] [place] [address] [place] HISTORY PHYSICALon HISTORY PHYSICAL HNO ID: [id number] Author: DIO JAVIER MD Service: ? Author [...] -Completed outpatient hyperbaric oxygen therapy 03/01 at [place] for hematuria/friable, bleeding mucosa over the bladder neck seen on cysto -Has had additional clot evacs and bladder neck incisions this past year at [place], had laser BNI November 13 2023 -Recent Admission early February at [facility] for gross hematuria- underwent cystoscopy on 02/11 [...] equal to 35 kg/m2 STOP-Bang Score: 4 [id number] Score: Hypertension history: Yes [id number] Score: ANESTHESIA FINDINGS: Intubation History: No abnormal [...] Admin: COVID-19 vaccine, age 12+ yr, season (Vetr) 03/06/2022 Outside Immunization: COVID-19, mRNA, LNP-S, PF, [...] loss, malaise (more content not included)... Normal [facility] URINE, PRESURGICAL STERILIZA TION CULTUREon 03-02-2024 URINE, PRESURGICAL STERILIZATION CULTURE ORGANISM ID: 1 >=100,000 CFU/ml Providencia rettgeri ORGANISM ID: 2 10,000 -<50,000 CFU/ml Klebsiella oxytoca ORGANISM ID: 3 >=100,000 CFU/ml Proteus vulgaris Call the lab ([phone]) within 72 h if susceptibility testing for [...] , Resistant >=1 Nitrofurantoin R F Abnormal [facility] Comment on above: Performed By: #### U PRESR ####[facility] LABIA [id number] [address] [place] CNPRachael 02-28-2024 CNPN Telephone (UROLMN) BARBARA MILAN ([id number]) 1945 M Date Time Provider Department 02/28/24 [...] about HBOT, then she has to call [phone] to scheduled an assessment with their providers. The locations available are [facility], [facility], [facility]. Can you call and let her know? [...] intramuscularly every 4 months. - mv with jeo-NN-lozkwtuk-gink go (ONE-A-DAY MEN'S 50+ ADVANTAGE) 400-300-120 mcg-mcg-mg [...] Encounter Status:Closed by AMALIA SHAH [facility] BAR[facility] ([id number]) 1945 M Date Time Provider Department 02/28/24 [facility] your visit today, we recorded [...] intramuscularly every 4 months. - mv with aqi-FQ-rlndwzwy-gink go (ONE-A-DAY MEN'S 50+ ADVANTAGE) 400-300-120 mcg-mcg-mg [...] Status:Closed by AMALIA SHAH on 02/28/24 Normal [facility] CNOVon 02-24-2024 CNOV Office Visit (UROSMN) KAYLIBARBARA SANTAMARIA ([id number]) 1945 M Date Time Provider Department 02/24/24 [...] Yes Patient was roomed in: [facility] [employer] Head offered:Patient declines Patient arrived in the room [...] Education Session: None Instruction Provided To: Patient Medical Staff Director Present: not applicable Discipline: Nursing Learning Topic: SURVIVAL SKILLS: Complication Prevention Symptom Management Patient Evaluation: Verbalizes understanding: Yes Supplemental Material Given: Written Material Instructed By Oscar Hurt RN In Department Urology . Matt Garcia MD 02/24/2024 1:41 PM Addendum Cystoscopy showed scar tissue at t (more content not included)... Normal [facility] UA DIP, URINE (POC)on 2023 BILIRUBIN UA (POCT) Negative Negative [facility] CLARITY UA (POCT) Cloudy [facility] COLOR UA (POCT) Yellow [facility] GLUCOSE UA (POCT) Negative Negative mg/dL [facility] Hemoglobin Ql (U) Large Abnormal Negative [facility] Interpretation and review of laboratory results Abnormal [facility] KETONE UA (POCT) Negative Negative mg/dL [facility] LEUKOCYTES UA (POCT) Large Abnormal Negative [facility] NITRITE UA (POCT) Positive Abnormal Negative [facility] PH UA (POCT) 6.0 4.5 - 8.0 [facility] Protein Ql (U) 100 mg/dL Abnormal Negative [facility] SPECIFIC GRAVITY UA (POCT) 1.020 1.005 - 1.030 [facility] UROBILINOGEN UA (POCT) 0.2 Carmita l E.U./dL [facility] Location:[facility], [address] [place] [address] POINT OF CARE [facility] CNOVon 12-23-2023 CNOV Office Visit (UROSMN) BARBARA MILAN ([id number]) 1945 M Date Time Provider Department 12/23/23 1:00 PM MATT GARCIA URONIKITA During your visit today, we recorded the following information about you: Leroy Kline RN 12/23/2023 4:03 PM Signed Actual procedure/procedure scheduled: Yes Performing provider/scheduled provider: Yes Patient was roomed in: [facility] [employer] Head offered:Patient declines Patient arrived in the room [...] Sight: Corrective lenses Instruction Provided To: Patient Medical Staff Director Present: not applicable Discipline: Nursing Learning Topic: SURVIVAL SKILLS: Complication Prevention Symptom Management Patient Evaluation: Verbalizes understanding: Yes Supplemental Material Given: Written Material Instructed By Leroy Kline RN In Department Urology . Matt Garcia MD 12/23/2023 5:13 PM Signed PHYSICIAN'S NOTE: Procedure: Cystoscopy Epic notes reviewed: yes Mr. Milan is a 78 year old male with a history of [place] 9 prostate cancer sp RP 2011 and [...] Out [employer] (more content not included)... Normal [facility] CNOVon 12-16-2023 CNOV Office Visit (UROLMN) BARBARA MILAN ([id number]) 1945 M Date Time Provider Department 12/16/23 8:00 AM MATT GARCIA During your visit today, we recorded the following information about you: Pulse Blood pressure Weight 100/minute 121/75 84.4 kg Matt Garcia MD 12/16/2023 9:10 AM Signed [facility] UROLOGY NEW [...] still in now Multiple ER visits in [place] for hematuria, retention CKD Cr 1.3 (last [...] not taking: Reported on 12/16/2023) mv with yqf-JU-uznxnfdd-gink go (ONE-A-DAY MEN'S 50+ ADVANTAGE) 400-300-120 mcg-mcg-mg [...] with retu (more content not included)... Normal [facility] Basophil percentageOrdered B y: Columba Decker on 10-15-2023 Basophil percentage 0 SEEN /hpf 0-5 [facility] Bilirubin Test strip Ql (U)O rdered By: Columba Decker on 10-15-2023 Bilirubin Ql (U) Negative Negative [facility] Ketones Test strip Ql (U)Ord ered By: Columba Decker on 10-15-2023 Ketones Ql (U) Negative Negative [facility] Mucus LM Ql (Urine sed)Order ed By: Columba Decker on 10-15-2023 Mucus Ql (Urine sed) 0 SEEN /hpf [facility] Nitrite Test strip Ql (U)Ord ered By: Columba Decker on 10-15-2023 Nitrite Ql (U) Negative Negative [facility] No Panel InformationOrdered By: Columba Decker on 10-15-2023 Urine RBC 10-25 SEEN /hpf 0-5 [facility] Protein Test strip Ql (U)Ord ered By: Columba Decker on 10-15-2023 Protein Ql (U) Negative Negative [facility] Squamous epithelial cells de tection in urine sediment by light microscopyOrdered By: Columba Decker on 10-15-2023 Epithelial cells.squamous LM Ql (Urine sed) 0 SEEN /hpf 0-5 [facility] Urine blood detectionOrdered By: Columba Decker on 10-15-2023 RBC Ql (U) 250 /ul Negative [facility] Urine clarityOrdered By: Chana Decker on 10-15-2023 Clarity (U) Clear Clear [facility] Urine color determinationOrd ered By: Columba Decker on 10-15-2023 Color (U) Yellow Yellow [facility] Urine glucose detectionOrder ed By: Columba Decker on 10-15-2023 Glucose Ql (U) Normal mg/dl Normal [facility] Urine leukocyte esterase det ection by dipstickOrdered By: Columba Decker on 10-15-2023 Leukocyte esterase Test strip Ql (U) 25 /ul Negative [facility] Urine pHOrdered By: Columba Decker on 10-15-2023 pH (U) 6.0 [pH] 5.0 - 8.0 [facility] Urine sediment bacteria coun t by microscopy (number/high power field)Ordered By: Columba Decker on 10-15-2023 Bacteria LM.HPF (Urine sed) [#/Area] 0 /[HPF] None Seen [facility] Urine specific gravity measu rementOrdered By: Columba Decker on 10-15-2023 Specific gravity (U) [Rel density] 1.015 1.002-1.030 [facility] Urine urobilinogen measureme ntOrdered By: Columba Decker on 10-15-2023 Urobilinogen Ql (U) Normal mg/dl Normal [facility] Basophil percentageOrdered B y: Zhao Gilliland on 06-27-2023 Basophil percentage < 0.01 ng/mL 0.0-4.0 [facility] Comment on above: This test was perfor med using the TPSA assay method for the[employer] chemistry system. Values obtained with differentassay methods cannot be used interchangably.When changing PSA assays in the course of monitoring apatient, additional sequential testing should be carriedout to confirm baseline values. Absolute lymphocyte countOrd ered By: Eduardo Han on 04-04-2023 Lymphocytes Auto (Unsp spec) [#/Vol] 0.71 10*3/uL 0.83-4.51 [facility] Basophil percentageOrdered B y: Eduardo Han on 04-04-2023 Basophils/100 WBC (Bld) 0.6 % 0-1 [facility] Chloride [Moles/Vol] 108 mmol/L 98-107 [facility] Eosinophils/100 WBC (Bld) 5.2 % 0-5 [facility] Glucose [Mass/Vol] 159 mg/dL 74-106 [facility] Comment on above: Fasting Glucose resu lt greater than or equal to 126 mg/dL suggests DIABETES MELLITUS per A.D.A. criteria. Neutrophils (Bld) [#/Vol] 4.9 10*3/uL 2.0-7.7 [facility] Neutrophils/100 WBC (Bld) 73.4 % 47-70 [facility] Potassium [Moles/Vol] 4.4 mmol/L 3.5-5.1 [facility] Sodium [Moles/Vol] 135 mmol/L 136-145 [facility] WBC (Bld) [#/Vol] 6.6 10*3/uL 4.4-11.0 [facility] Blood erythrocytes count (nu mber/volume)Ordered By: Eduardo Han on 04-04-2023 RBC (Bld) [#/Vol] 3.88 10*6/uL 4.6-6.2 [facility] Blood hemoglobin measurement (mass/volume)Ordered By: Eduardo Han on 04-04-2023 Hemoglobin (Bld) [Mass/Vol] 11.1 g/dL 13.0-16.5 [facility] Blood lymphocytes/100 leukoc ytesOrdered By: Eduardo Han on 04-04-2023 Lymphocytes/100 WBC (Bld) 10.8 % 19-41 [facility] Blood monocytes/100 leukocyt esOrdered By: Eduardo Han on 04-04-2023 Monocytes/100 WBC (Bld) 9.4 % 0-10 [facility] Blood platelet mean volumeOr dered By: Eduardo Han on 04-04-2023 Platelet mean volume (Bld) [Entitic vol] 10.9 fL 6.2-12.0 [facility] Determination of erythrocyte mean corpuscular volume (MCV)Ordered By: Eduardo Han on 04-04-2023 MCV (RBC) [Entitic vol] 93.0 fL 80-94 [facility] Hematocrit Auto (Bld) [Volum e fraction]Ordered By: Eduardo Han on 04-04-2023 Hematocrit (Bld) [Volume fraction] 36.1 % 40-54 [facility] Iron measurement (mass/mass) Ordered By: Eduardo Han on 04-04-2023 Iron (Unsp spec) [Mass/Mass] 86 ug/dL 65-175 [facility] Laboratory - Chemistry and C hemistry - challengeOrdered By: Eduardo Han on 04-04-2023 CO2 [Moles/Vol] 23.0 mmol/L 21.0-32.0 [facility] Urea nitrogen/Creatinine [Mass ratio] 18.4 mg/mg 10-20 [facility] Laboratory - Hematology and Cell countsOrdered By: Eduardo Han on 04-04-2023 Erythrocyte distribution width (RBC) [Entitic vol] 49.9 fL 35.1-43.9 [facility] Erythrocyte distribution width (RBC) [Ratio] 14.7 % 11.6-14.6 [facility] Immature granulocytes/100 WBC (Bld) 0.600 % 0.0-0.9 [facility] Comment on above: IG% - Immature Granu locytes (promyelocytes, myelocytes and metamyelocytes) > 1% indicates that a LEFT SHIFT is Present. MCH (RBC) [Entitic mass] 28.6 pg 27.0-32.0 [facility] Nucleated RBC/100 WBC (Bld) [Ratio] 0 % 0-5 [facility] MCHC Auto (RBC) [Mass/Vol]Or dered By: Eduardo Han on 04-04-2023 MCHC (RBC) [Mass/Vol] 30.7 g/dL 32-36 [facility] No Panel InformationOrdered By: Eduardo Han on 04-04-2023 Estimated GFR (MDRD) Amer 72 mL/min >60 [facility] Comment on above: GFR Calc Estimated GFR (MDRD) Non-Af Amer 60 mL/min >60 [facility] Comment on above: Non- GFR Calc Platelets bldOrdered By: Yamila Han on 04-04-2023 Platelets (Bld) [#/Vol] 273 10*3/uL 150-450 [facility] Serum or plasma calcium janusz urement (mass/volume)Ordered By: Eduardo Han on 04-04-2023 Calcium [Mass/Vol] 8.8 mg/dL 8.5-10.1 [facility] Serum or plasma creatinine m easurement (mass/volume)Ordered By: Eduardo Han on 04-04-2023 Creatinine [Mass/Vol] 1.25 mg/dL 0.70-1.30 [facility] Comment on above: The validity of the calculated GFR & GFRAA in patients over 70 years has not been determined. Clinical correlation is essential. Serum or plasma ferritin lakeshia surement (mass/volume)Ordered By: Eduardo Han on 04-04-2023 Ferritin [Mass/Vol] 60 ng/mL 26-388 [facility] Serum or plasma urea nitroge n measurement (mass/volume)Ordered By: Eduardo Han on 04-04-2023 Urea nitrogen [Mass/Vol] 23 mg/dL 7-18 [facility] Thin prep Papanicolaou smear with manual screeningOrdered By: Eduardo Han on 04-04-2023 Thin prep Papanicolaou smear with manual screening 4 5-15 [facility] Absolute lymphocyte countOrd ered By: Mannie Chandler on 03-01-2023 Lymphocytes Auto (Unsp spec) [#/Vol] 0.74 10*3/uL 0.83-4.51 [facility] Absolute lymphocyte countOrd ered By: Eduardo Han on 03-01-2023 Lymphocytes Auto (Unsp spec) [#/Vol] 1.08 10*3/uL 0.83-4.51 [facility] Basophil percentageOrdered B y: Mannie Chandler on 03-01-2023 Basophils/100 WBC (Bld) 0.4 % 0-1 [facility] Chloride [Moles/Vol] 106 mmol/L 98-107 [facility] Eosinophils/100 WBC (Bld) 2.2 % 0-5 [facility] Glucose [Mass/Vol] 121 mg/dL 74-106 [facility] Comment on above: Fasting Glucose resu lt from 100 to 125 mg/dL suggests IMPAIRED HOMEOSTASIS per A.D.A. criteria. Neutrophils (Bld) [#/Vol] 7.6 10*3/uL 2.0-7.7 [facility] Neutrophils/100 WBC (Bld) 81.6 % 47-70 [facility] Potassium [Moles/Vol] 4.3 mmol/L 3.5-5.1 [facility] Sodium [Moles/Vol] 135 mmol/L 136-145 [facility] WBC (Bld) [#/Vol] 9.3 10*3/uL 4.4-11.0 [facility] Basophil percentageOrdered B y: Eduardo Han on 03-01-2023 Basophils/100 WBC (Bld) 0.6 % 0-1 [facility] Bilirubin [Mass/Vol] 0.20 mg/dL 0.20-1.00 [facility] Comment on above: For patients on eltr ombopag therapy, use of Dimension Entiat TBIL is not recommended. Chloride [Moles/Vol] 107 mmol/L 98-107 [facility] Cholesterol [Mass/Vol] 127 mg/dL <200 [facility] Comment on above: <200 mg/dL Desirable 200-240 mg/dL Borderline >240 mg/dL High Risk Eosinophils/100 WBC (Bld) 3.2 % 0-5 [facility] Glucose [Mass/Vol] 120 mg/dL 74-106 [facility] Comment on above: Fasting Glucose resu lt from 100 to 125 mg/dL suggests IMPAIRED HOMEOSTASIS per A.D.A. criteria. Neutrophils (Bld) [#/Vol] 6.7 10*3/uL 2.0-7.7 [facility] Neutrophils/100 WBC (Bld) 75.8 % 47-70 [facility] Potassium [Moles/Vol] 4.3 mmol/L 3.5-5.1 [facility] Protein [Mass/Vol] 7.5 g/dL 6.4-8.2 [facility] Sodium [Moles/Vol] 138 mmol/L 136-145 [facility] Triglyceride [Mass/Vol] 104 mg/dL <199 [facility] Comment on above: The drugs N-Acetylcy steine and Metamizole may falsely depress this assay.Serum Triglycerides Reference Interval Normal <150 mg/dL Borderline high 150 - 199 mg/dL High 200 - 499 mg/dL Very High > or = 500 mg/dL WBC (Bld) [#/Vol] 8.8 10*3/uL 4.4-11.0 [facility] Blood erythrocytes count (nu mber/volume)Ordered By: Mannie Chandler on 03-01-2023 RBC (Bld) [#/Vol] 3.04 10*6/uL 4.6-6.2 [facility] Blood erythrocytes count (nu mber/volume)Ordered By: Eduardo Han on 03-01-2023 RBC (Bld) [#/Vol] 3.20 10*6/uL 4.6-6.2 [facility] Blood hemoglobin measurement (mass/volume)Ordered By: Mannie Chandler on 03-01-2023 Hemoglobin (Bld) [Mass/Vol] 8.9 g/dL 13.0-16.5 [facility] Blood hemoglobin measurement (mass/volume)Ordered By: Eduardo Han on 03-01-2023 Hemoglobin (Bld) [Mass/Vol] 9.4 g/dL 13.0-16.5 [facility] Blood lymphocytes/100 leukoc ytesOrdered By: Mannie Chandler on 03-01-2023 Lymphocytes/100 WBC (Bld) 8.0 % - [facility] Blood lymphocytes/100 leukoc ytesOrdered By: Eduardo Han on 03-01-2023 Lymphocytes/100 WBC (Bld) 12.2 % -41 [facility] Blood monocytes/100 leukocyt esOrdered By: Mannie Chandler on 03-01-2023 Monocytes/100 WBC (Bld) 6.9 % 0-10 [facility] Blood monocytes/100 leukocyt esOrdered By: Eduardo Han on 03-01-2023 Monocytes/100 WBC (Bld) 7.5 % 0-10 [facility] Blood platelet mean volumeOr dered By: Mannie Chandler on 03-01-2023 Platelet mean volume (Bld) [Entitic vol] 10.0 fL 6.2-12.0 [facility] Blood platelet mean volumeOr dered By: Eduardo Han on 03-01-2023 Platelet mean volume (Bld) [Entitic vol] 10.0 fL 6.2-12.0 [facility] Determination of erythrocyte mean corpuscular volume (MCV)Ordered By: Mannie Chandler on 03-01-2023 MCV (RBC) [Entitic vol] 89.1 fL 80-94 [facility] Determination of erythrocyte mean corpuscular volume (MCV)Ordered By: Eduardo Han on 03-01-2023 MCV (RBC) [Entitic vol] 90.9 fL 80-94 [facility] Hematocrit Auto (Bld) [Volum e fraction]Ordered By: Mannie Chandler on 03-01-2023 Hematocrit (Bld) [Volume fraction] 27.1 % 40-54 [facility] Hematocrit Auto (Bld) [Volum e fraction]Ordered By: Eduardo Han on 03-01-2023 Hematocrit (Bld) [Volume fraction] 29.1 % 40-54 [facility] Hemoglobin in reticulocytes (mass per reticulocyte)Ordered By: Eduardo Han on 03-01-2023 Hemoglobin (Reticulocytes) [Entitic mass] 28.5 pg 30-35 [facility] Iron measurement (mass/mass) Ordered By: Eduardo Han on 03-01-2023 Iron (Unsp spec) [Mass/Mass] 21 ug/dL 65-175 [facility] Laboratory - Chemistry and C hemistry - challengeOrdered By: Mannie Chandler on 03-01-2023 CO2 [Moles/Vol] 23.0 mmol/L 21.0-32.0 [facility] Natriuretic peptide B (Bld) [Mass/Vol] 23.5 pg/mL 0-100 [facility] Urea nitrogen/Creatinine [Mass ratio] 18.2 mg/mg 10-20 [facility] Laboratory - Chemistry and C hemistry - challengeOrdered By: Eduardo Han on 03-01-2023 ALP [Catalytic activity/Vol] 85 U/L 45-117 [facility] ALT [Catalytic activity/Vol] 24 U/L 16-61 [facility] CO2 [Moles/Vol] 24.0 mmol/L 21.0-32.0 [facility] Globulin (S) [Mass/Vol] 4.5 g/dL 2.2-4.2 [facility] Urea nitrogen/Creatinine [Mass ratio] 18.4 mg/mg 10-20 [facility] Laboratory - Hematology and Cell countsOrdered By: Mannie Chandler on 03-01-2023 Erythrocyte distribution width (RBC) [Entitic vol] 41.0 fL 35.1-43.9 [facility] Erythrocyte distribution width (RBC) [Ratio] 12.6 % 11.6-14.6 [facility] Immature granulocytes/100 WBC (Bld) 0.900 % 0.0-0.9 [facility] Comment on above: IG% - Immature Granu locytes (promyelocytes, myelocytes and metamyelocytes) > 1% indicates that a LEFT SHIFT is Present. MCH (RBC) [Entitic mass] 29.3 pg 27.0-32.0 [facility] Nucleated RBC/100 WBC (Bld) [Ratio] 0 % 0-5 [facility] Laboratory - Hematology and Cell countsOrdered By: Eduardo Han on 03-01-2023 Erythrocyte distribution width (RBC) [Entitic vol] 42.4 fL 35.1-43.9 [facility] Erythrocyte distribution width (RBC) [Ratio] 12.7 % 11.6-14.6 [facility] Immature granulocytes/100 WBC (Bld) 0.700 % 0.0-0.9 [facility] Comment on above: IG% - Immature Granu locytes (promyelocytes, myelocytes and metamyelocytes) > 1% indicates that a LEFT SHIFT is Present. MCH (RBC) [Entitic mass] 29.4 pg 27.0-32.0 [facility] Nucleated RBC/100 WBC (Bld) [Ratio] 0 % 0- [facility] MCHC Auto (RBC) [Mass/Vol]Or dered By: Mannie Chandler on 03-01-2023 MCHC (RBC) [Mass/Vol] 32.8 g/dL 32-36 [facility] MCHC Auto (RBC) [Mass/Vol]Or dered By: Eduardo Han on 03-01-2023 MCHC (RBC) [Mass/Vol] 32.3 g/dL 32-36 [facility] No Panel InformationOrdered By: Mannie Chandler on 03-01-2023 Troponin I High Sensitivity 13 pg/mL 3.0-78.0 [facility] Comment on above: Please Note: [place] t Units and Gender Specific Reference Ranges. For more information see Policy Stat Procedure Entiat High Sensitivity Troponin (TNIH) and attachments. Estimated Creatinine Clearance Calc 43.13 ml/min [facility] Estimated GFR (MDRD) Amer 60 mL/min >60 [facility] Comment on above: GFR Calc Estimated GFR (MDRD) Non-Af Amer 49 mL/min >60 [facility] Comment on above: Non- GFR Calc No Panel InformationOrdered By: Eduardo Han on 03-01-2023 Estimated GFR (MDRD) Amer 63 mL/min >60 [facility] Comment on above: GFR Calc Estimated GFR (MDRD) Non-Af Amer 52 mL/min >60 [facility] Comment on above: Non- GFR Calc Immature Reticulocyte Fraction 14.40 % 3.00-15.90 [facility] Reticulocyte Count 2.08 % 0.5-1.5 [facility] Total Iron Binding Capacity 266 ug/dL 250-450 [facility] Platelets bldOrdered By: Malissa Chandler on 03-01-2023 Platelets (Bld) [#/Vol] 414 10*3/uL 150-450 [facility] Platelets bldOrdered By: Yamila Han on 03-01-2023 Platelets (Bld) [#/Vol] 442 10*3/uL 150-450 [facility] Serum or plasma albumin janusz urement (mass/volume)Ordered By: Eduardo Han on 03-01-2023 Albumin [Mass/Vol] 3.0 g/dL 3.2-5.0 [facility] Serum or plasma albumin/glob ulin mass ratioOrdered By: Eduardo Han on 03-01-2023 Albumin/Globulin [Mass ratio] 0.7 {ratio} 0.9-2.4 [facility] Serum or plasma calcium janusz urement (mass/volume)Ordered By: Mannie Chandler on 03-01-2023 Calcium [Mass/Vol] 8.3 mg/dL 8.5-10.1 [facility] Serum or plasma calcium janusz urement (mass/volume)Ordered By: Eduardo Han on 03-01-2023 Calcium [Mass/Vol] 8.6 mg/dL 8.5-10.1 [facility] Serum or plasma cholesterol in HDL measurement (mass/volume)Ordered By: Eduardo Han on 03-01-2023 Cholesterol in HDL [Mass/Vol] 38 mg/dL >40 [facility] Comment on above: The drugs N-Acetylcy steine and Metamizole may falsely depress this assay. Reference Range HDL <40 mg/dL Low HDL Cholesterol HDL >or= 60 mg/dL High HDL Cholesterol Serum or plasma cholesterol in VLDL measurement (mass/volume)Ordered By: Eduardo Han on 03-01-2023 Cholesterol in VLDL [Mass/Vol] 21 mg/dL 5-40 [facility] Serum or plasma creatinine m easurement (mass/volume)Ordered By: Mannie Chandler on 03-01-2023 Creatinine [Mass/Vol] 1.48 mg/dL 0.70-1.30 [facility] Comment on above: The validity of the calculated GFR & GFRAA in patients over 70 years has not been determined. Clinical correlation is essential. Serum or plasma creatinine m easurement (mass/volume)Ordered By: Eduardo Han on 03-01-2023 Creatinine [Mass/Vol] 1.41 mg/dL 0.70-1.30 [facility] Comment on above: The validity of the calculated GFR & GFRAA in patients over 70 years has not been determined. Clinical correlation is essential. Serum or plasma ferritin lakes[place] surement (mass/volume)Ordered By: Eduardo Han on 03-01-2023 Ferritin [Mass/Vol] 148 ng/mL 26-388 [facility] Serum or plasma low density lipoprotein (LDL) cholesterol measurement (mass/volume)Ordered By: Eduardo Han on 03-01-2023 Cholesterol in LDL [Mass/Vol] 68 mg/dL 0-130 [facility] Serum or plasma urea nitroge n measurement (mass/volume)Ordered By: Mannie Chandler on 03-01-2023 Urea nitrogen [Mass/Vol] 27 mg/dL 7-18 [facility] Serum or plasma urea nitroge n measurement (mass/volume)Ordered By: Eduardo Han on 03-01-2023 Urea nitrogen [Mass/Vol] 26 mg/dL 7-18 [facility] Thin prep Papanicolaou smear with manual screeningOrdered By: Mannie Chandler on 03-01-2023 Thin prep Papanicolaou smear with manual screening 6 5-15 [facility] Thin prep Papanicolaou smear with manual screeningOrdered By: Eduardo Han on 03-01-2023 Thin prep Papanicolaou smear with manual screening 17 U/L 15-37 [facility] Thin prep Papanicolaou smear with manual screening 7 5-15 [facility] CNPNon 02-21-2023 CNPN Telephone (UROLAE) BARBARA MILAN ([id number]) 1945 M Date Time Provider Department 02/21/23 [...] Fully Assessed Reason for Visit: Patient Question [9517] Prescriptions as of 02/21/2023 - terazosin (HYTRIN) [...] intramuscularly every 4 months. - mv with [id number]-[id number] go (ONE-A-DAY MEN'S 50+ ADVANTAGE) 400-300-120 mcg-mcg-mg [...] Encounter Status:Closed by FAITH KEENE on 02/21/23 [facility] Absolute lymphocyte countOrd ered By: Temi Macias on 02-19-2023 Lymphocytes Auto (Unsp spec) [#/Vol] 0.63 10*3/uL 0.83-4.51 [facility] Basophil percentageOrdered B y: Temi Macias on 02-19-2023 Basophils/100 WBC (Bld) 0.7 % 0-1 [facility] Chloride [Moles/Vol] 109 mmol/L 98-107 [facility] Eosinophils/100 WBC (Bld) 4.0 % 0-5 [facility] Glucose [Mass/Vol] 118 mg/dL 74-106 [facility] Comment on above: Fasting Glucose resu lt from 100 to 125 mg/dL suggests IMPAIRED HOMEOSTASIS per A.D.A. criteria. Neutrophils (Bld) [#/Vol] 5.2 10*3/uL 2.0-7.7 [facility] Neutrophils/100 WBC (Bld) 72.6 % 47-70 [facility] Potassium [Moles/Vol] 3.8 mmol/L 3.5-5.1 [facility] Sodium [Moles/Vol] 137 mmol/L 136-145 [facility] WBC (Bld) [#/Vol] 7.2 10*3/uL 4.4-11.0 [facility] Blood erythrocytes count (nu mber/volume)Ordered By: Temi Macias on 02-19-2023 RBC (Bld) [#/Vol] 2.78 10*6/uL 4.6-6.2 [facility] Blood hemoglobin measurement (mass/volume)Ordered By: Temi Macias on 02-19-2023 Hemoglobin (Bld) [Mass/Vol] 8.3 g/dL 13.0-16.5 [facility] Blood lymphocytes/100 leukoc ytesOrdered By: Temi Macias on 02-19-2023 Lymphocytes/100 WBC (Bld) 8.8 % 19-41 [facility] Blood monocytes/100 leukocyt esOrdered By: Temi Macias on 02-19-2023 Monocytes/100 WBC (Bld) 11.1 % 0-10 [facility] Blood platelet mean volumeOr dered By: Temi Macias on 02-19-2023 Platelet mean volume (Bld) [Entitic vol] 9.8 fL 6.2-12.0 [facility] Determination of erythrocyte mean corpuscular volume (MCV)Ordered By: Temi Macias on 02-19-2023 MCV (RBC) [Entitic vol] 92.4 fL 80-94 [facility] Hematocrit Auto (Bld) [Volum e fraction]Ordered By: Temi Macias on 02-19-2023 Hematocrit (Bld) [Volume fraction] 25.7 % 40-54 [facility] Laboratory - Chemistry and C hemistry - challengeOrdered By: Temi Macias on 02-19-2023 CO2 [Moles/Vol] 22.0 mmol/L 21.0-32.0 [facility] Urea nitrogen/Creatinine [Mass ratio] 19.3 mg/mg 10-20 [facility] Laboratory - Hematology and Cell countsOrdered By: Temi Macias on 02-19-2023 Erythrocyte distribution width (RBC) [Entitic vol] 42.6 fL 35.1-43.9 [facility] Erythrocyte distribution width (RBC) [Ratio] 12.4 % 11.6-14.6 [facility] Immature granulocytes/100 WBC (Bld) 2.800 % 0.0-0.9 [facility] Comment on above: IG% - Immature Granu locytes (promyelocytes, myelocytes and metamyelocytes) > 1% indicates that a LEFT SHIFT is Present. MCH (RBC) [Entitic mass] 29.9 pg 27.0-32.0 [facility] Nucleated RBC/100 WBC (Bld) [Ratio] 0.3 % 0-5 [facility] MCHC Auto (RBC) [Mass/Vol]Or dered By: Temi Macias on 02-19-2023 MCHC (RBC) [Mass/Vol] 32.3 g/dL 32-36 [facility] No Panel InformationOrdered By: Temi Macias on 02-19-2023 Estimated Creatinine Clearance Calc 55.99 ml/min [facility] Estimated GFR (MDRD) Amer 81 mL/min >60 [facility] Comment on above: GFR Calc Estimated GFR (MDRD) Non-Af Amer 67 mL/min >60 [facility] Comment on above: Non- GFR Calc Platelets bldOrdered By: Diana Macias on 02-19-2023 Platelets (Bld) [#/Vol] 435 10*3/uL 150-450 [facility] Serum or plasma calcium janusz urement (mass/volume)Ordered By: eTmi Macias on 02-19-2023 Calcium [Mass/Vol] 8.0 mg/dL 8.5-10.1 [facility] Serum or plasma creatinine m easurement (mass/volume)Ordered By: Temi Macias on 02-19-2023 Creatinine [Mass/Vol] 1.14 mg/dL 0.70-1.30 [facility] Comment on above: The validity of the calculated GFR & GFRAA in patients over 70 years has not been determined. Clinical correlation is essential. Serum or plasma urea nitroge n measurement (mass/volume)Ordered By: Temi Macias on 02-19-2023 Urea nitrogen [Mass/Vol] 22 mg/dL 7-18 [facility] Thin prep Papanicolaou smear with manual screeningOrdered By: Temi Macias on 02-19-2023 Thin prep Papanicolaou smear with manual screening 6 5-15 [facility] Basophil percentageOrdered B y: Zhao Gilliland on 02-17-2023 WBC (Bld) [#/Vol] 8.7 10*3/uL 4.4-11.0 [facility] Blood erythrocytes count (nu mber/volume)Ordered By: Zhao Gilliland on 02-17-2023 RBC (Bld) [#/Vol] 2.65 10*6/uL 4.6-6.2 [facility] Blood hemoglobin measurement (mass/volume)Ordered By: Zhao Gilliland on 02-17-2023 Hemoglobin (Bld) [Mass/Vol] 8.2 g/dL 13.0-16.5 [facility] Blood platelet mean volumeOr dered By: Zhao Gilliland on 02-17-2023 Platelet mean volume (Bld) [Entitic vol] 10.0 fL 6.2-12.0 [facility] Determination of erythrocyte mean corpuscular volume (MCV)Ordered By: Zhao Gilliland on 02-17-2023 MCV (RBC) [Entitic vol] 92.8 fL 80-94 [facility] Hematocrit Auto (Bld) [Volum e fraction]Ordered By: Zhao Gilliland on 02-17-2023 Hematocrit (Bld) [Volume fraction] 24.6 % 40-54 [facility] Laboratory - Hematology and Cell countsOrdered By: Zhao Gilliland on 02-17-2023 Erythrocyte distribution width (RBC) [Entitic vol] 42.8 fL 35.1-43.9 [facility] Erythrocyte distribution width (RBC) [Ratio] 12.6 % 11.6-14.6 [facility] MCH (RBC) [Entitic mass] 30.9 pg 27.0-32.0 [facility] MCHC Auto (RBC) [Mass/Vol]Or dered By: Zhao Gilliland on 02-17-2023 MCHC (RBC) [Mass/Vol] 33.3 g/dL 32-36 [facility] Platelets bldOrdered By: Dario Gilliland on 02-17-2023 Platelets (Bld) [#/Vol] 330 10*3/uL 150-450 [facility] Absolute lymphocyte countOrd ered By: Damian Melvin on 02-14-2023 Lymphocytes Auto (Unsp spec) [#/Vol] 0.50 10*3/uL 0.83-4.51 [facility] Basophil percentageOrdered B y: Damian Melvin on 02-14-2023 Basophils/100 WBC (Bld) 0.3 % 0-1 [facility] Chloride [Moles/Vol] 107 mmol/L 98-107 [facility] Eosinophils/100 WBC (Bld) 1.4 % 0-5 [facility] Glucose [Mass/Vol] 125 mg/dL 74-106 [facility] Comment on above: Fasting Glucose resu lt from 100 to 125 mg/dL suggests IMPAIRED HOMEOSTASIS per A.D.A. criteria. Neutrophils (Bld) [#/Vol] 6.2 10*3/uL 2.0-7.7 [facility] Neutrophils/100 WBC (Bld) 83.6 % 47-70 [facility] Potassium [Moles/Vol] 4.2 mmol/L 3.5-5.1 [facility] Sodium [Moles/Vol] 139 mmol/L 136-145 [facility] WBC (Bld) [#/Vol] 7.4 10*3/uL 4.4-11.0 [facility] Basophil percentage 0 SEEN /hpf 0-5 [facility] Bilirubin Test strip Ql (U)O rdered By: Damian Melvin on 02-14-2023 Bilirubin Ql (U) Negative Negative [facility] Blood erythrocytes count (nu mber/volume)Ordered By: Damian Melvin on 02-14-2023 RBC (Bld) [#/Vol] 3.35 10*6/uL 4.6-6.2 [facility] Blood hemoglobin measurement (mass/volume)Ordered By: Damian Melvin on 02-14-2023 Hemoglobin (Bld) [Mass/Vol] 10.3 g/dL 13.0-16.5 [facility] Blood lymphocytes/100 leukoc ytesOrdered By: Damian Melvin on 02-14-2023 Lymphocytes/100 WBC (Bld) 6.8 % 19-41 [facility] Blood manual differential co mment interpretation (narrative result)Ordered By: Damian Melvin on 02-14-2023 Manual differential comment Kristian (Bld) [Interp] SCANNED [facility] Blood monocytes/100 leukocyt esOrdered By: Damian Melvin on 02-14-2023 Monocytes/100 WBC (Bld) 7.1 % 0-10 [facility] Blood platelet mean volumeOr dered By: Damian Melvin on 02-14-2023 Platelet mean volume (Bld) [Entitic vol] 10.2 fL 6.2-12.0 [facility] Determination of erythrocyte mean corpuscular volume (MCV)Ordered By: Damian Melvin on 02-14-2023 MCV (RBC) [Entitic vol] 92.5 fL 80-94 [facility] Hematocrit Auto (Bld) [Volum e fraction]Ordered By: Damian Melvin on 02-14-2023 Hematocrit (Bld) [Volume fraction] 31.0 % 40-54 [facility] Ketones Test strip Ql (U)Ord ered By: Damian Melvin on 02-14-2023 Ketones Ql (U) 5 mg/dl Negative [facility] Laboratory - Chemistry and C hemistry - challengeOrdered By: Damian Melvin on 02-14-2023 CO2 [Moles/Vol] 22.0 mmol/L 21.0-32.0 [facility] Urea nitrogen/Creatinine [Mass ratio] 15.0 mg/mg 10-20 [facility] Laboratory - Hematology and Cell countsOrdered By: Damian Melvin on 02-14-2023 Erythrocyte distribution width (RBC) [Entitic vol] 42.8 fL 35.1-43.9 [facility] Erythrocyte distribution width (RBC) [Ratio] 12.6 % 11.6-14.6 [facility] Immature granulocytes/100 WBC (Bld) 0.800 % 0.0-0.9 [facility] Comment on above: IG% - Immature Granu locytes (promyelocytes, myelocytes and metamyelocytes) > 1% indicates that a LEFT SHIFT is Present. MCH (RBC) [Entitic mass] 30.7 pg 27.0-32.0 [facility] Nucleated RBC/100 WBC (Bld) [Ratio] 0 % 0-5 [facility] MCHC Auto (RBC) [Mass/Vol]Or dered By: Damian Melvin on 02-14-2023 MCHC (RBC) [Mass/Vol] 33.2 g/dL 32-36 [facility] Mucus LM Ql (Urine sed)Order ed By: Damian Melvin on 02-14-2023 Mucus Ql (Urine sed) 0 SEEN /hpf [facility] Nitrite Test strip Ql (U)Ord ered By: Damian Melvin on 02-14-2023 Nitrite Ql (U) Negative Negative [facility] No Panel InformationOrdered By: Damian Melvin on 02-14-2023 Estimated Creatinine Clearance Calc 41.19 ml/min [facility] Estimated GFR (MDRD) Amer 54 mL/min >60 [facility] Comment on above: GFR Calc Estimated GFR (MDRD) Non-Af Amer 45 mL/min >60 [facility] Comment on above: Non- GFR Calc Platelets bldOrdered By: Mary Alice Melvin on 02-14-2023 Platelets (Bld) [#/Vol] 332 10*3/uL 150-450 [facility] Protein Test strip Ql (U)Ord ered By: Damian Melvin on 02-14-2023 Protein Ql (U) 500 mg/dl Negative [facility] Serum or plasma calcium janusz urement (mass/volume)Ordered By: Damian Melvin on 02-14-2023 Calcium [Mass/Vol] 8.6 mg/dL 8.5-10.1 [facility] Serum or plasma creatinine m easurement (mass/volume)Ordered By: Damian Melvin on 02-14-2023 Creatinine [Mass/Vol] 1.60 mg/dL 0.70-1.30 [facility] Comment on above: The validity of the calculated GFR & GFRAA in patients over 70 years has not been determined. Clinical correlation is essential. Serum or plasma urea nitroge n measurement (mass/volume)Ordered By: Damian Melvin on 02-14-2023 Urea nitrogen [Mass/Vol] 24 mg/dL 7-18 [facility] Squamous epithelial cells de tection in urine sediment by light microscopyOrdered By: Damian Melvin on 02-14-2023 Epithelial cells.squamous LM Ql (Urine sed) 0 SEEN /hpf 0-5 [facility] Thin prep Papanicolaou smear with manual screeningOrdered By: Damian Melvin on 02-14-2023 Thin prep Papanicolaou smear with manual screening 10 5-15 [facility] Urine blood detectionOrdered By: Damian Melvin on 02-14-2023 RBC Ql (U) 250 /ul Negative [facility] RBC Ql (U) > 100 SEEN /hpf 0-5 [facility] Comment on above: Microscopic field is filled. Other elements may be obscured. Urine clarityOrdered By: Mary Alice Melvin on 02-14-2023 Clarity (U) Cloudy Clear [facility] Urine color determinationOrd ered By: Damian Melvin on 02-14-2023 Color (U) Red Yellow [facility] Urine glucose detectionOrder ed By: Damian Melvin on 02-14-2023 Glucose Ql (U) Normal mg/dl Normal [facility] Urine leukocyte esterase det ection by dipstickOrdered By: Damian Melvin on 02-14-2023 Leukocyte esterase Test strip Ql (U) Negative Negative [facility] Urine pHOrdered By: Damian chávez on 02-14-2023 pH (U) 8.0 [pH] 5.0 - 8.0 [facility] Urine sediment bacteria coun t by microscopy (number/high power field)Ordered By: Damian Melvin on 02-14-2023 Bacteria LM.HPF (Urine sed) [#/Area] 0 /[HPF] None Seen [facility] Urine specific gravity measu rementOrdered By: Damian Melvin on 02-14-2023 Specific gravity (U) [Rel density] 1.010 1.002-1.030 [facility] Urobilinogen Auto test strip Ql (U)Ordered By: Damian Melvin on 02-14-2023 Urobilinogen Ql (U) Normal mg/dl Normal [facility] ALLIED HEALTHon 02-12-2023 ALLIED HEALTH HNO ID: [id number] Author: Radha Brower Chaplain Service: Spiritual Care Author Type: Food Counselor Type: Allied Health Filed: 02/12/2023 11:00 AM Note Text: SPIRITUAL CARE PROGRESS NOTE SERVICE DATE: 02/12/2023 SERVICE TIME: 10:40 am Short visit with patient. Patient shared he had no need for Spiritual Care services at this time. To contact the Spiritual Care Department: Please call [phone]. SIGNATURE: Chaplain Octavio PATIENT NAME: Barbara Milan DATE: February 12, 2023 TIME: 10:59 AM PAGER/CONTACT #: [id number] Normal [facility] Basic metabolic 2000 panelon 02-12-2023 Anion gap [Moles/Vol] 11 mmol/L Normal 9-18 [facility] Comment on above: Order Comment: Speci men Type: BLOOD SPECIMEN Ordering Facility: [facility] Address: [address] [place] [phone] Performed By: #### 2 4321-2 #### [facility] CLIA [id number] [address] [place] Calcium [Mass/Vol] 7.9 mg/dL Low 8.5-10.2 [facility] Comment on above: Order Comment: Speci men Type: BLOOD SPECIMEN Ordering Facility: [facility] Address: [address] [place] [address] Performed By: #### 2 4321-2 #### [facility] CLIA [id number] [address] [place] Chloride [Moles/Vol] 103 mmol/L Normal 97-105 [facility] Comment on above: Order Comment: Speci men Type: BLOOD SPECIMEN Ordering Facility: [facility] Address: [address] [place] [address] Performed By: #### 2 4321-2 #### [facility] CLIA [id number] [address] [place] CO2 [Moles/Vol] 22 mmol/L Normal 22-30 [facility] Comment on above: Order Comment: Speci men Type: BLOOD SPECIMEN Ordering Facility: [facility] Address: [address] [place] [address] Performed By: #### 2 4321-2 #### [facility] CLIA [id number] [address] [place] Creatinine [Mass/Vol] 1.26 mg/dL High 0.73-1.22 [facility] Comment on above: Order Comment: Speci men Type: BLOOD SPECIMEN Ordering Facility: [facility] Address: [address] [place] [address] Performed By: #### 2 4321-2 #### [facility] CLIA [id number] [address] Creatinine and Glomerular filtration rate.predicted panel (S/P/Bld) 59 mL/min/1.73m??? Low >=60 [facility] Comment on above: Order Comment: Speci men Type: BLOOD SPECIMEN Ordering Facility: [facility] Address: [address] [place], [place] [id number] Result Comment: Christy mated Glomerular Filtration Rate [...] GFR. Performed By: #### 2 4321-2 #### [facility] CLIA [id number] [address] [place] [address] [place] Glucose [Mass/Vol] 109 mg/dL High 74-99 [facility] Comment on above: Order Comment: Elisa dominique Type: BLOOD SPECIMEN Ordering Facility: [facility] Address: [address] [place], [place] [id number] Result Comment: The [place] [employer] (ADA) provides guidance for cutoff [...] Standards of Medical Care in Diabetes 2016, [place] [employer]. Diabetes Care. 2016.39(Suppl 1). Performed By: #### 2 4321-2 #### [facility] CLIA [id number] 1 [place] [address] [place] Potassium [Moles/Vol] 4.1 mmol/L Normal 3.7-5.1 [facility] Comment on above: Order Comment: Elisa dominique Type: BLOOD SPECIMEN Ordering Facility: [facility] Address: [address] [place], [place] [id number] Performed By: #### 2 4321-2 #### [facility] CLIA [id number] [address] Sodium [Moles/Vol] 136 mmol/L Normal 136-144 [facility] Comment on above: Order Comment: Speci men Type: BLOOD SPECIMEN Ordering Facility: [facility] Address: [address] [address] Performed By: #### 2 4321-2 #### [facility] CLIA [id number] [address] [place] Urea nitrogen [Mass/Vol] 20 mg/dL Normal 9-24 [facility] Comment on above: Order Comment: Speci men Type: BLOOD SPECIMEN Ordering Facility: [facility] Address: [address] [address] Performed By: #### 2 4321-2 #### [facility] CLIA [id number] [address] CBC panel Auto (Bld)on 02-12 Erythrocyte distribution width (RBC) [Ratio] 12.6 % Normal 11.5-15.0 [facility] Comment on above: Order Comment: Speci men Type: BLOOD SPECIMEN Ordering Facility: [facility] Address: [address] [place] [address] Performed By: #### 2 4321-2 #### [facility] CLIA [id number] [address] Hematocrit (Bld) [Volume fraction] 27.5 % Low 39.0-51.0 [facility] Comment on above: Order Comment: Speci men Type: BLOOD SPECIMEN Ordering Facility: [facility] Address: [address] [address] Performed By: #### 2 4321-2 #### [facility] CLIA [id number] [address] [place] Hemoglobin (Bld) [Mass/Vol] 9.3 g/dL Low 13.0-17.0 [facility] Comment on above: Order Comment: Speci men Type: BLOOD SPECIMEN Ordering Facility: [facility] Address: [address] [address] Performed By: #### 2 4321-2 #### [facility] CLIA [id number] [address] MCH (RBC) [Entitic mass] 30.8 pg Normal 26.0-34.0 [facility] Comment on above: Order Comment: Speci men Type: BLOOD SPECIMEN Ordering Facility: [facility] Address: [address] [place] [address] Performed By: #### 2 4321-2 #### [facility] CLIA [id number] [address] MCHC (RBC) [Mass/Vol] 33.8 g/dL Normal 30.5-36.0 [facility] Comment on above: Order Comment: Speci men Type: BLOOD SPECIMEN Ordering Facility: [facility] Address: [address] [place] [address] Performed By: #### 2 4321-2 #### [facility] CLIA [id number] [address] MCV (RBC) [Entitic vol] 91.1 fL Normal 80.0-100.0 [facility] Comment on above: Order Comment: Speci men Type: BLOOD SPECIMEN Ordering Facility: [facility] Address: [address] [place] [address] Performed By: #### 2 4321-2 #### [facility] CLIA [id number] [address] Nucleated RBC (Bld) [#/Vol] 10*3/uL Normal <0.01 [facility] Comment on above: Order Comment: Speci men Type: BLOOD SPECIMEN Ordering Facility: [facility] Address: [address] [place] [address] Performed By: #### 2 4321-2 #### [facility] CLIA [id number] [address] Platelet mean volume (Bld) [Entitic vol] 10.7 fL Normal 9.0-12.7 [facility] Comment on above: Order Comment: Speci men Type: BLOOD SPECIMEN Ordering Facility: [facility] Address: [address] [place] [address] Performed By: #### 2 4321-2 #### [facility] CLIA [id number] [address] Platelets (Bld) [#/Vol] 248 10*3/uL Normal 150-400 [facility] Comment on above: Order Comment: Speci men Type: BLOOD SPECIMEN Ordering Facility: [facility] Address: [address] [place] [address] Performed By: #### 2 4321-2 #### [facility] CLIA [id number] [address] RBC (Bld) [#/Vol] 3.02 10*6/uL Low 4.20-6.00 [facility] Comment on above: Order Comment: Speci men Type: BLOOD SPECIMEN Ordering Facility: [facility] Address: [address] [place] [address] Performed By: #### 2 4321-2 #### [facility] CLIA [id number] [address] WBC (Bld) [#/Vol] 7.44 10*3/uL Normal 3.70-11.00 [facility] Comment on above: Order Comment: Speci men Type: BLOOD SPECIMEN Ordering Facility: [facility] Address: [address] [place] [address] Performed By: #### 2 4321-2 #### [facility] CLIA [id number] [address] CNDSon 02-12-2023 CNDS HNO ID: [id number] Author: Yanni Badillo MD Service: Urology Author Type: Resident Type: Discharge Summary Filed: 02/12/2023 8:37 AM Note Text: Attestation signed by Rio Pardo MD at 02/12/2023 2:58 PM I saw and evaluated the patient. Discussed with the resident and agree with resident's findings and plan as documented in the resident's note. Follow up with Urology in [place]. Rio Pardo MD DISCHARGE SUMMARY PATIENT NAME: [...] -plan for outpatient hyperbaric oxygen therapy in [place] if hematuria persists With: [facility] When: In 1 week Additional Provider to Provider Information: No notes on file Treatment Team: Attending Provider: Max Grewal MD Transitions of Care Critical Issues: NEW BASELINE FOR PATIENT: worthy PROCEDURES SCHEDULED: na LABS AND PROCEDURES PENDING AT DISCHARGE: No pending results. FOLLOW-UP APPOINTMENTS ALREADY SCHEDULED WITH A [facility] PROVIDER: No future appointments. 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 Normal [facility] ANES POSTPROC EVALon 023 ANES POSTPROC EVAL HNO ID: [id number] Author: Drea Carey MD Service: Anesthesiology Author Type: Physician Type: Anesthesia Postprocedure Evaluation Filed: 02/11/2023 4:00 PM Note Text: POST ANESTHESIA EVALUATION NOTE : 1945 Procedure Summary Date: 02/11/23 Room / Location: [place] [address] [place] [address] OR Anesthesia Start: 1450 Anesthesia Stop: 1559 [...] care. Anesthesia Observations No Documentation SIGNATURE: Drea Caery MD PATIENT NAME: Barbara Milan DATE: February 11, 2023 TIME: 3:59 PM CSN: [id number] [facility] ANES PRE-OPon 02-11-2023 ANES PRE-OP HNO ID: [id number] Author: Drea Carey MD Service: Anesthesiology Author [...] and consent discussed: yes. Patient / Responsible Libertarian agrees to proceed: yes Patient / Surrogate [...] intramuscularly every 4 months. - mv with trd-UM-pseubhvn-gink go (ONE-A-DAY MEN'S 50+ ADVANTAGE) 400-300-120 mcg-mcg-mg tab Take 1 tablet by mouth once daily. I have interviewed and examined the patient. I have reviewed the medical record and/or the pre-anesthesia evaluation, pertinent labs, and test results. This contains updated information obtained within 48 hours of Surgery/Procedure. SIGNATURE: Drea Carey MD PATIENT NAME: Barbara Milan DATE: February 11, 2023 TIME: 12:24 PM CSN: [id number] Normal [facility] Basic metabolic 2000 panelon 02-11-2023 Anion gap [Moles/Vol] 9 mmol/L Normal 9-18 [facility] Comment on above: Order Comment: Speci men Type: BLOOD SPECIMEN Ordering Facility: [facility] Address: [address] [place] [address] Performed By: #### 2 4321-2 #### [facility] CLIA [id number] 1 [place] [address] [place] Calcium [Mass/Vol] 8.4 mg/dL Low 8.5-10.2 [facility] Comment on above: Order Comment: Speci men Type: BLOOD SPECIMEN Ordering Facility: [facility] Address: [address] [place] [address] Performed By: #### 2 4321-2 #### [facility] CLIA [id number] 1 [place] [address] [place] Chloride [Moles/Vol] 103 mmol/L Normal 97-105 [facility] Comment on above: Order Comment: Speci men Type: BLOOD SPECIMEN Ordering Facility: [facility] Address: [address] [place] [address] Performed By: #### 2 4321-2 #### [facility] CLIA [id number] 1 [place] [address] [place] CO2 [Moles/Vol] 21 mmol/L Low 22-30 [facility] Comment on above: Order Comment: Speci men Type: BLOOD SPECIMEN Ordering Facility: [facility] Address: [address] [place] [address] Performed By: #### 2 4321-2 #### [facility] CLIA [id number] 1 [place] [address] [place] Creatinine [Mass/Vol] 1.30 mg/dL High 0.73-1.22 [facility] Comment on above: Order Comment: Speci men Type: BLOOD SPECIMEN Ordering Facility: [facility] Address: [address] [place] [address] Performed By: #### 2 4321-2 #### [facility] CLIA [id number] [address] Creatinine and Glomerular filtration rate.predicted panel (S/P/Bld) 57 mL/min/1.73m??? Low >=60 [facility] Comment on above: Order Comment: Speci men Type: BLOOD SPECIMEN Ordering Facility: [facility] Address: [address] [place] [address] Result Comment: Christy mated Glomerular Filtration Rate [...] GFR. Performed By: #### 2 4321-2 #### [facility] CLIA [id number] 1 [place] [address] [place] Glucose [Mass/Vol] 108 mg/dL High 74-99 [facility] Comment on above: Order Comment: Speci men Type: BLOOD SPECIMEN Ordering Facility: [facility] Address: [address] [place] [address] Result Comment: The [place] Diabetes Association (ADA) provides guidance for cutoff [...] Standards of Medical Care in Diabetes 2016, [place] [employer]. Diabetes Care. 2016.39(Suppl 1). Performed By: #### 2 4321-2 #### [facility] CLIA [id number] [address] STATES OF [facility] Potassium [Moles/Vol] 3.9 mmol/L Normal 3.7-5.1 [facility] Comment on above: Order Comment: Elisa dominique Type: BLOOD SPECIMEN Ordering Facility: [facility] Address: [address] [place] [address] Performed By: #### 2 4321-2 #### [facility] CLIA [id number] [address] STATES OF [facility] Sodium [Moles/Vol] 133 mmol/L Low 136-144 [facility] Comment on above: Order Comment: Elisa dominique Type: BLOOD SPECIMEN Ordering Facility: [facility] Address: [address] [place] [address] Performed By: #### 2 4321-2 #### [facility] CLIA [id number] [address] STATES [facility] Urea nitrogen [Mass/Vol] 22 mg/dL Normal 9-24 [facility] Comment on above: Order Comment: Elisa dominique Type: BLOOD SPECIMEN Ordering Facility: [facility] Address: [address] [place] [address] Performed By: #### 2 4321-2 #### [facility] CLIA [id number] [address] OF [facility] CBC panel Auto (Bld)on 02-11 Erythrocyte distribution width (RBC) [Ratio] 12.7 % Normal 11.5-15.0 [facility] Comment on above: Order Comment: Speci men Type: BLOOD SPECIMEN Ordering Facility: [facility] Address: [address] [place] [address] Performed By: #### 2 4321-2 #### [facility] CLIA [id number] [address] Hematocrit (Bld) [Volume fraction] 27.3 % Low 39.0-51.0 [facility] Comment on above: Order Comment: Speci men Type: BLOOD SPECIMEN Ordering Facility: [facility] Address: [address] [place] [address] Performed By: #### 2 4321-2 #### [facility] CLIA [id number] [address] Hemoglobin (Bld) [Mass/Vol] 9.3 g/dL Low 13.0-17.0 [facility] Comment on above: Order Comment: Speci men Type: BLOOD SPECIMEN Ordering Facility: [facility] Address: [address] [place] [address] Performed By: #### 2 1-2 #### [facility] CLIA [id number] [address] MCH (RBC) [Entitic mass] 30.6 pg Normal 26.0-34.0 [facility] Comment on above: Order Comment: Speci men Type: BLOOD SPECIMEN Ordering Facility: [facility] Address: [address] [place] [address] Performed By: #### 2 4321-2 #### [facility] CLIA [id number] [address] OF [facility] MCHC (RBC) [Mass/Vol] 34.1 g/dL Normal 30.5-36.0 [facility] Comment on above: Order Comment: Speci men Type: BLOOD SPECIMEN Ordering Facility: [facility] Address: [address] [place] [address] Performed By: #### 2 4321-2 #### [facility] CLIA [id number] [address] MCV (RBC) [Entitic vol] 89.8 fL Normal 80.0-100.0 [facility] Comment on above: Order Comment: Speci men Type: BLOOD SPECIMEN Ordering Facility: [facility] Address: [address] [place] [address] Performed By: #### 2 4321-2 #### [facility] CLIA [id number] [address] OF [place] Nucleated RBC (Bld) [#/Vol] 10*3/uL Normal <0.01 [facility] Comment on above: Order Comment: Speci men Type: BLOOD SPECIMEN Ordering Facility: [facility] Address: [address] [place] [address] Performed By: #### 2 4321-2 #### [facility] CLIA [id number] [address] Platelet mean volume (Bld) [Entitic vol] 10.9 fL Normal 9.0-12.7 [facility] Comment on above: Order Comment: Speci men Type: BLOOD SPECIMEN Ordering Facility: [facility] Address: [address] [place] [address] Performed By: #### 2 4321-2 #### [facility] CLIA [id number] [address] Platelets (Bld) [#/Vol] 211 10*3/uL Normal 150-400 [facility] Comment on above: Order Comment: Speci men Type: BLOOD SPECIMEN Ordering Facility: [facility] Address: [address] [place] [address] Performed By: #### 2 4321-2 #### [facility] CLIA [id number] [address] OF [place] RBC (Bld) [#/Vol] 3.04 10*6/uL Low 4.20-6.00 [facility] Comment on above: Order Comment: Speci men Type: BLOOD SPECIMEN Ordering Facility: [facility] Address: [address] [place], [place] [address], [place] [address] Performed By: #### 2 4321-2 #### [facility] CLIA [id number] [address] WBC (Bld) [#/Vol] 7.34 10*3/uL Normal 3.70-11.00 [facility] Comment on above: Order Comment: Speci men Type: BLOOD SPECIMEN Ordering Facility: [facility] Address: [address] [facility] [place] [id number] Performed By: #### 2 4321-2 #### [facility] CLIA [id number] [address] [place] [id number] [facility] OPERATIVE NOon 02-11-2023 OPERATIVE NO HNO ID: [id number] Author: Mayra Carrasquillo MD Service: Urology Author [...] Time: 7:29 AM OPERATIVE/PROCEDURE REPORT LOG ID: [id number] Surgery/Procedure Date: 02/11/2023 Incision/Procedure Start Time: 3:02 PM Incision Close/Procedure End Time: 3:48 PM Surgeon(s)/Procedura list(s) and Retail Office Associate(s): Surgeon(s) and Role: * Kelvin Edwards MD - Primary * Mayra Carrasquillo MD - Resident - Assisting * Mj Wills MD - Resident - Assisting No Additional Staff Procedure(s): Cystoscopy, Clot evacuation, Fulguration, Bladder Biopsy, Cystogram Anesthesia: General Pre-Op/Pre-Procedure Diagnosis: Pre-Op Diagnosis Codes: * Gross hematuria [R31.0] Post-Op/Post-Procedu re Diagnosis: Same Estimated Blood Loss: <5 mls Specimens: bladder biopsy Drains: 22 Fr [place] tip, 10cc in the balloon Complications: None [...] leaving which was then connected to an tailings man port. Using a 60cc awa syringe, gentle irrigation was used to evacuate clot from the bladder to achieve a light pink urine. We then detached the tailings man port and re-connected the obturator to the [...] resectoscope was exchanged for a cystoscope. A checker stocker film was obtained. We then instilled ~50cc [...] then removed from the bladder. A 22Fr [place] tip worthy catheter was placed over the wire. 10cc were placed in the balloon. Worthy catheter was irrigated to confirm proper placement in the bladder. The patient tolerated the procedure well. Pt awakened and taken to recovery room in stable condition. Mj Wills MD PGY1 Urology 4:24 PM 02/11/23 Mayra Carrasquillo MD Urology PGY2 02/11/2023 5:56 PM -Page implementation consultant resident with questions or concerns Normal [facility] SURGICAL PATHOLOGYon 023 CASE REPORT Normal [facility] Comment on above: Order Comment: Speci men Type: TISSUE SPECIMENOrdering Facility: [facility] Address: [address] [place] [id number] Result Comment: Surg ica Pathology Report Case: [id number] Authorizing Provider: Kelvin Edwards MD Collected: 02/11/2023 03:24 PM Ordering Location: [place] [facility] [place] Received: 02/14/2023 09:41 AM Pathologist: Brittney Hidalgo MD Specimen: BLADDER BIOPSY, bladder biopsy bladder neck Performed By: #### S ####[facility] [id number] [address] CLINICAL HISTORY Normal [facility] Comment on above: Order Comment: Speci men Type: TISSUE SPECIMENOrdering Facility: [facility] Address: [address] [place] [address] Result Comment: Pre- op diagnosis: Gross hematuria [R31.0] Performed By: #### S ####[facility] [id number] [address] FINAL DIAGNOSIS Normal [facility] Comment on above: Order Comment: Speci men Type: TISSUE SPECIMENOrdering Facility: [facility] Address: [address] [place] [address] Result Comment: Nick quiroz, biopsy: - Predominantly blood and scant urothelium. - See comment. Performed By: #### S ####[facility] [id number] [address] FINAL PERFORMING LAB Normal [facility] Comment on above: Order Comment: Speci men Type: TISSUE SPECIMENOrdering Facility: [facility] Address: [address] [place] [address] Result Comment: Diag nostic interpretation performed at [facility], [address] [place] [address] CLIA# [id number] Radio Assembler: Damian Valdivia M.D. Performed By: #### S ####[facility] [id number] [address] GROSS DESCRIPTION [facility] Comment on above: Order Comment: Speci men Type: TISSUE SPECIMENOrdering Facility: [facility] Address: [address] [place] [address] Result Comment: A. B LADDER BIOPSY Received in formalin and designated bladder biopsy are fragments of red-brown tissue that is strained into a biopsy bag and has an aggregate measurement of 0.5 x 0.2 x 0.1 cm. The specimen is entirely submitted in 1 cassette. KM February 14, 2023 12:57 PM Gross examination performed at [facility], [address] [place] [address] CLIA# [id number] Performed By: #### S ####[facility] [id number] [place] [address] [place] Basic metabolic 2000 panelon 02-10-2023 Anion gap [Moles/Vol] 9 mmol/L Normal 9-18 [facility] Comment on above: Order Comment: Speci men Type: BLOOD SPECIMEN Ordering Facility: [facility] Address: [address] [address] Performed By: #### 2 4321-2 #### [facility] CLIA [id number] [address] [place] Calcium [Mass/Vol] 8.4 mg/dL Low 8.5-10.2 [facility] Comment on above: Order Comment: Speci men Type: BLOOD SPECIMEN Ordering Facility: [facility] Address: [address] [place] [address] Performed By: #### 2 4321-2 #### [facility] CLIA [id number] [address] STATES [facility] Chloride [Moles/Vol] 104 mmol/L Normal 97-105 [facility] Comment on above: Order Comment: Speci men Type: BLOOD SPECIMEN Ordering Facility: [facility] Address: [address] [place] [address] Performed By: #### 2 4321-2 #### [facility] CLIA [id number] [address] [place] CO2 [Moles/Vol] 21 mmol/L Low 22-30 [facility] Comment on above: Order Comment: Speci men Type: BLOOD SPECIMEN Ordering Facility: [facility] Address: [address] [place] [address] Performed By: #### 2 4321-2 #### [facility] CLIA [id number] [address] [place] Creatinine [Mass/Vol] 1.23 mg/dL High 0.73-1.22 [facility] Comment on above: Order Comment: Elisa dominique Type: BLOOD SPECIMEN Ordering Facility: [facility] Address: [address] [place] [address] Performed By: #### 2 4321-2 #### [facility] CLIA [id number] [address] [place] Creatinine and Glomerular filtration rate.predicted panel (S/P/Bld) 61 mL/min/1.73m??? Normal >=60 [facility] Comment on above: Order Comment: Elisa dominique Type: BLOOD SPECIMEN Ordering Facility: [facility] Address: [address] [place] [address] Result Comment: Christy mated Glomerular Filtration Rate [...] GFR. Performed By: #### 2 4321-2 #### [facility] CLIA [id number] [address] [place] [address] [place] Glucose [Mass/Vol] 112 mg/dL High 74-99 [facility] Comment on above: Order Comment: Elisa dominique Type: BLOOD SPECIMEN Ordering Facility: [facility] Address: [address] [place] [address] Result Comment: The [place] Diabetes Association (ADA) provides guidance for cutoff [...] Standards of Medical Care in Diabetes 2016, [place] [employer]. Diabetes Care. 2016.39(Suppl 1). Performed By: #### 2 4321-2 #### [facility] CLIA [id number] [address] [place] Potassium [Moles/Vol] 4.0 mmol/L Normal 3.7-5.1 [facility] Comment on above: Order Comment: Speci men Type: BLOOD SPECIMEN Ordering Facility: [facility] Address: [address] [place] [address] Performed By: #### 2 4321-2 #### [facility] CLIA [id number] [address] [place] Sodium [Moles/Vol] 134 mmol/L Low 136-144 [facility] Comment on above: Order Comment: Speci men Type: BLOOD SPECIMEN Ordering Facility: [facility] Address: [address] [place] [address] Performed By: #### 2 4321-2 #### [facility] CLIA [id number] [address] STATES [facility] Urea nitrogen [Mass/Vol] 20 mg/dL Normal 9-24 [facility] Comment on above: Order Comment: Speci men Type: BLOOD SPECIMEN Ordering Facility: [facility] Address: [address] [place] [address] Performed By: #### 2 4321-2 #### [facility] CLIA [id number] [address] OF [facility] CBC panel Auto (Bld)on 02-10 Erythrocyte distribution width (RBC) [Ratio] 12.5 % Normal 11.5-15.0 [facility] Comment on above: Order Comment: Speci men Type: BLOOD SPECIMEN Ordering Facility: [facility] Address: [address] [place] [address] Performed By: #### 5 8410-2 #### [facility] CLIA [id number] [address] [place] Hematocrit (Bld) [Volume fraction] 28.8 % Low 39.0-51.0 [facility] Comment on above: Order Comment: Speci men Type: BLOOD SPECIMEN Ordering Facility: [facility] Address: [address] [place] [address] Performed By: #### 5 8410-2 #### [facility] CLIA [id number] [address] Hemoglobin (Bld) [Mass/Vol] 9.7 g/dL Low 13.0-17.0 [facility] Comment on above: Order Comment: Speci men Type: BLOOD SPECIMEN Ordering Facility: [facility] Address: [address] [place] [address] Performed By: #### 5 8410-2 #### [facility] CLIA [id number] [address] MCH (RBC) [Entitic mass] 30.5 pg Normal 26.0-34.0 [facility] Comment on above: Order Comment: Speci men Type: BLOOD SPECIMEN Ordering Facility: [facility] Address: [address] [place] [address] Performed By: #### 5 8410-2 #### [facility] CLIA [id number] [address] MCHC (RBC) [Mass/Vol] 33.7 g/dL Normal 30.5-36.0 [facility] Comment on above: Order Comment: Speci men Type: BLOOD SPECIMEN Ordering Facility: [facility] Address: [address] [place] [address] Performed By: #### 5 8410-2 #### [facility] CLIA [id number] [address] MCV (RBC) [Entitic vol] 90.6 fL Normal 80.0-100.0 [facility] Comment on above: Order Comment: Speci men Type: BLOOD SPECIMEN Ordering Facility: [facility] Address: [address] [place] [address] Performed By: #### 5 8410-2 #### [facility] CLIA [id number] [address] OF [facility] Nucleated RBC (Bld) [#/Vol] 10*3/uL Normal <0.01 [facility] Comment on above: Order Comment: Speci men Type: BLOOD SPECIMEN Ordering Facility: [facility] Address: [address] [place] [address] Performed By: #### 5 8410-2 #### [facility] CLIA [id number] [address] OF [place] Platelet mean volume (Bld) [Entitic vol] 11.0 fL Normal 9.0-12.7 [facility] Comment on above: Order Comment: Speci men Type: BLOOD SPECIMEN Ordering Facility: [facility] Address: [address] [place] [address] Performed By: #### 5 8410-2 #### [facility] CLIA [id number] [address] Platelets (Bld) [#/Vol] 203 10*3/uL Normal 150-400 [facility] Comment on above: Order Comment: Speci men Type: BLOOD SPECIMEN Ordering Facility: [facility] Address: [address] [place] [address] Performed By: #### 5 8410-2 #### [facility] CLIA [id number] [address] [place] RBC (Bld) [#/Vol] 3.18 10*6/uL Low 4.20-6.00 [facility] Comment on above: Order Comment: Speci men Type: BLOOD SPECIMEN Ordering Facility: [facility] Address: [address] [place] [address] Performed By: #### 5 8410-2 #### [facility] CLIA [id number] [address] [place] WBC (Bld) [#/Vol] 8.99 10*3/uL Normal 3.70-11.00 [facility] Comment on above: Order Comment: Speci men Type: BLOOD SPECIMEN Ordering Facility: [facility] Address: [address] [place] [address] [place] [address] Performed By: #### 5 8410-2 #### [id number] 1 [place] [address] [place] NURSING PROGon 02-10-2023 NURSING PROG HNO ID: [id number] Author: Drea Son, [place] Service: ? Author [...] unit to replace 3 way worthy. Normal [facility] THERAPY NTon 02-10-2023 THERAPY NT HNO ID: [id number] Author: Mayra Faulkner PTA Service: Physical Therapy Author Type: Animal Care Technician Type: Therapy (PT/OT/Speech/Resp) Filed: 02/10/2023 1:31 PM Note Text: Attestation signed by Wes Calvillo, PT at 02/10/2023 4:16 PM I reviewed and agree with the documentation corresponding to this therapy visit. 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 Independent with mobility without AD, denies any recent falls. 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 Normal [facility] Basic metabolic 2000 panelon 02-09-2023 Anion gap [Moles/Vol] 11 mmol/L Normal 9-18 [facility] Comment on above: Order Comment: Speci men Type: BLOOD SPECIMEN Ordering Facility: [facility] Address: [address] [place] [address] Performed By: #### 2 4321-2 #### [facility] CLIA [id number] 1 [place] [address] [place] Calcium [Mass/Vol] 8.4 mg/dL Low 8.5-10.2 [facility] Comment on above: Order Comment: Speci men Type: BLOOD SPECIMEN Ordering Facility: [facility] Address: [address] [address] Performed By: #### 2 4321-2 #### [facility] CLIA [id number] 1 [place] [address] [place] Chloride [Moles/Vol] 103 mmol/L Normal 97-105 [facility] Comment on above: Order Comment: Speci men Type: BLOOD SPECIMEN Ordering Facility: [facility] Address: [address] [address] Performed By: #### 2 4321-2 #### [facility] CLIA [id number] [address] [place] CO2 [Moles/Vol] 20 mmol/L Low 22-30 [facility] Comment on above: Order Comment: Speci men Type: BLOOD SPECIMEN Ordering Facility: [facility] Address: [address] [address] Performed By: #### 2 4321-2 #### [facility] CLIA [id number] [address] [place] Creatinine [Mass/Vol] 1.17 mg/dL Normal 0.73-1.22 [facility] Comment on above: Order Comment: Speci men Type: BLOOD SPECIMEN Ordering Facility: [facility] Address: [address] [place] [address] Performed By: #### 2 4321-2 #### [facility] CLIA [id number] [address] Creatinine and Glomerular filtration rate.predicted panel (S/P/Bld) 65 mL/min/1.73m??? Normal >=60 [facility] Comment on above: Order Comment: Speci men Type: BLOOD SPECIMEN Ordering Facility: [facility] Address: [address] [place] [address] Result Comment: Christy mated Glomerular Filtration Rate [...] Performed By: #### 2 4321-2 #### [facility] CLIA [id number] [address] [place] Glucose [Mass/Vol] 126 mg/dL High 74-99 [facility] Comment on above: Order Comment: Elisa dominiuqe Type: BLOOD SPECIMEN Ordering Facility: [facility] Address: [address] [place] [address] Result Comment: The [place] Diabetes Association (ADA) provides guidance for cutoff [...] Standards of Medical Care in Diabetes 2016, [place] [employer]. Diabetes Care. 2016.39(Suppl 1). Performed By: #### 2 4321-2 #### [facility] CLIA [id number] 1 [place] [address] [place] Potassium [Moles/Vol] 4.0 mmol/L Normal 3.7-5.1 [facility] Comment on above: Order Comment: Elisa dominique Type: BLOOD SPECIMEN Ordering Facility: [facility] Address: [address] [place] [address] Performed By: #### 2 4321-2 #### [facility] CLIA [id number] [address] [place] Sodium [Moles/Vol] 134 mmol/L Low 136-144 [facility] Comment on above: Order Comment: Elisa dominique Type: BLOOD SPECIMEN Ordering Facility: [facility] Address: [address] [place] [address] Performed By: #### 2 4321-2 #### [facility] CLIA [id number] 1 [place] [address] [place] Urea nitrogen [Mass/Vol] 16 mg/dL Normal 9-24 [facility] Comment on above: Order Comment: Elisa dominique Type: BLOOD SPECIMEN Ordering Facility: [facility] Address: [address] [place] [address] Performed By: #### 2 4321-2 #### [facility] CLIA [id number] [address] CBC panel Auto (Bld)on 02-09 Erythrocyte distribution width (RBC) [Ratio] 12.5 % Normal 11.5-15.0 [facility] Comment on above: Order Comment: Speci men Type: BLOOD SPECIMEN Ordering Facility: [facility] Address: [address] [place] [address] Performed By: #### 5 8410-2 #### [facility] CLIA [id number] [address] Hematocrit (Bld) [Volume fraction] 31.5 % Low 39.0-51.0 [facility] Comment on above: Order Comment: Speci men Type: BLOOD SPECIMEN Ordering Facility: [facility] Address: [address] [place] [address] Performed By: #### 5 8410-2 #### [facility] CLIA [id number] [address] Hemoglobin (Bld) [Mass/Vol] 10.6 g/dL Low 13.0-17.0 [facility] Comment on above: Order Comment: Speci men Type: BLOOD SPECIMEN Ordering Facility: [facility] Address: [address] [place] [address] Performed By: #### 5 8410-2 #### [facility] CLIA [id number] [address] MCH (RBC) [Entitic mass] 30.5 pg Normal 26.0-34.0 [facility] Comment on above: Order Comment: Speci men Type: BLOOD SPECIMEN Ordering Facility: [facility] Address: [address] [place] [address] Performed By: #### 5 8410-2 #### [facility] CLIA [id number] [address] MCHC (RBC) [Mass/Vol] 33.7 g/dL Normal 30.5-36.0 [facility] Comment on above: Order Comment: Speci men Type: BLOOD SPECIMEN Ordering Facility: [facility] Address: [address] [address] Performed By: #### 5 8410-2 #### [facility] CLIA [id number] [address] MCV (RBC) [Entitic vol] 90.8 fL Normal 80.0-100.0 [facility] Comment on above: Order Comment: Speci men Type: BLOOD SPECIMEN Ordering Facility: [facility] Address: [address] [address] Performed By: #### 5 8410-2 #### [facility] CLIA [id number] [address] OF [facility] Nucleated RBC (Bld) [#/Vol] 10*3/uL Normal <0.01 [facility] Comment on above: Order Comment: Speci men Type: BLOOD SPECIMEN Ordering Facility: [facility] Address: [address] [place] [address] Performed By: #### 5 8410-2 #### [facility] CLIA [id number] [address] Platelet mean volume (Bld) [Entitic vol] 10.6 fL Normal 9.0-12.7 [facility] Comment on above: Order Comment: Speci men Type: BLOOD SPECIMEN Ordering Facility: [facility] Address: [address] [address] Performed By: #### 5 8410-2 #### [facility] CLIA [id number] [address] Platelets (Bld) [#/Vol] 211 10*3/uL Normal 150-400 [facility] Comment on above: Order Comment: Speci men Type: BLOOD SPECIMEN Ordering Facility: [facility] Address: [address] [place] [address] Performed By: #### 5 8410-2 #### [facility] CLIA [id number] [address] OF [facility] RBC (Bld) [#/Vol] 3.47 10*6/uL Low 4.20-6.00 [facility] Comment on above: Order Comment: Speci men Type: BLOOD SPECIMEN Ordering Facility: [facility] Address: [address] [place] [address] Performed By: #### 5 8410-2 #### [facility] CLIA [id number] [address] WBC (Bld) [#/Vol] 9.87 10*3/uL Normal 3.70-11.00 [facility] Comment on above: Order Comment: Speci men Type: BLOOD SPECIMEN Ordering Facility: [facility] Address: [address] [place] [address] Performed By: #### 5 8410-2 #### [facility] CLIA [id number] [address] CONSULTon 02-09-2023 CONSULT HNO ID: [id number] Author: Meng Hollins MD Service: General Surgery Author Type: Physician Type: Consults Filed: 02/09/2023 5:06 PM Note Text: HBO Note: I was asked to see this patient about 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 Pt looks to be improving and this treatment is generally given as an outpatient. The patient lives in [facility], near to [place], and I recommend that he see his local urologist and then be evaluated by the [place] HBO unit. He would need daily treatments and the amount of travel would make it very hard to be treated here. We did discuss the treatment and what it does and what to expect, so he is aware of it. Please call if there are any other questions. Meng Hollins MD Normal [facility] ECG COMPLETEon 02-09-2023 ECG COMPLETE Ventricular Rate : 98 BPM Atrial Rate : 98 BPM P-R Interval : 188 ms QRS Duration : 90 ms Q-T Interval : 330 ms QTC Calculation(Bazett) : 421 ms Calculated P [place] : 42 degrees Calculated R [place] : 44 degrees Calculated T [place] : 38 degrees SINUS RHYTHM WITH PREMATURE ATRIAL COMPLEXES OTHERWISE NORMAL ECG NO PREVIOUS ECGS AVAILABLE Confirmed by MD MARTINEZ YASSAR ([id number]) on 02/13/2023 11:38:54 PM NAME : BARBARA MILAN PID : [id number] : 1945 Gender : Male Race : ORD : [id number] Procedure Date : Feb 09 2023 10:57:16 Edit Date : Feb 13 2023 23:38:57 Diagnosis: SINUS RHYTHM WITH PREMATURE ATRIAL COMPLEXES OTHERWISE NORMAL ECG NO PREVIOUS ECGS AVAILABLE Confirmed by MD MARTINEZ YASSAR ([id number]) on 02/13/2023 11:38:54 PM Test Reason : Tachycardia Location : 51 : 5100 [id number] Overread By : MD MARTINEZ YASSAR Edited By : MD MARTINEZ YASSAR Referred By : , Acquired by : JAYLA JUNE [facility] NURSING PROGon 02-09-2023 NURSING PROG HNO ID: [id number] Author: Drea Son RN Service: ? Author Type: Registered Nurse Type: Nursing Progress Note Filed: 02/09/2023 5:11 PM Note Text: This RN called US tech due to stat US needing to be completed. She stated she is behind but will be done today. [facility] NURSING PROG HNO ID: [id number] Author: Drea Son RN Service: ? Author Type: Registered Nurse Type: Nursing Progress Note Filed: 02/09/2023 3:46 PM Note Text: Patient called this RN into room with complaints of increasing BL feet pain. Secure chat to Dr Cortez Carrasquillo. Dr Wills at bedside to evaluate. New orders placed. [facility] NURSING PROG HNO ID: [id number] Author: Ruth Mccormick RN Service: ? Author [...] his resting at this time . 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 Independent with mobility without AD, [...] PT In-H (more content not included)... Normal [facility] US DVT LOWER BILon 3 US DVT LOWER QUENTIN * * *Final Report* * * DATE OF EXAM: Feb 09 2023 6:16PM [facility] 1005 - US DVT LOWER [...] of the left and right lower extremities. Demurrage Worker: PSCB Transcribe Date/Time: Feb 09 2023 6:24P Dictated by : JORGE ALBERTO YOO MD This examination was interpreted and the report reviewed and electronically signed by: JORGE ALBERTO YOO MD on Feb 09 2023 6:24PM EST [id number] CN Normal [facility] Basic metabolic 2000 panelon 02-08-2023 Anion gap [Moles/Vol] 10 mmol/L Normal 9-18 [facility] Comment on above: Order Comment: Speci men Type: BLOOD SPECIMEN Ordering Facility: [facility] Address: [address] [place] [address] Performed By: #### 2 4321-2 #### [facility] CLIA [id number] 1 [place] [address] [place] Calcium [Mass/Vol] 8.6 mg/dL Normal 8.5-10.2 [facility] Comment on above: Order Comment: Speci men Type: BLOOD SPECIMEN Ordering Facility: [facility] Address: [address] [place] [address] Performed By: #### 2 4321-2 #### [facility] CLIA [id number] 1 [place] [address] [place] Chloride [Moles/Vol] 102 mmol/L Normal 97-105 [facility] Comment on above: Order Comment: Speci men Type: BLOOD SPECIMEN Ordering Facility: [facility] Address: [address] [place] [address] Performed By: #### 2 4321-2 #### [facility] CLIA [id number] 1 [place] [address] [place] CO2 [Moles/Vol] 20 mmol/L Low 22-30 [facility] Comment on above: Order Comment: Speci men Type: BLOOD SPECIMEN Ordering Facility: [facility] Address: [address] [place] [address] Performed By: #### 2 4321-2 #### [facility] CLIA [id number] [address] STATES OF [facility] Creatinine [Mass/Vol] 1.13 mg/dL Normal 0.73-1.22 [facility] Comment on above: Order Comment: Elisa dominique Type: BLOOD SPECIMEN Ordering Facility: [facility] Address: [address] [address] Performed By: #### 2 4321-2 #### [facility] CLIA [id number] [address] Creatinine and Glomerular filtration rate.predicted panel (S/P/Bld) 68 mL/min/1.73m??? Normal >=60 [facility] Comment on above: Order Comment: Elisa dominique Type: BLOOD SPECIMEN Ordering Facility: [facility] Address: [address] [place] [address] Result Comment: Christy mated Glomerular Filtration Rate [...] GFR. Performed By: #### 2 4321-2 #### [facility] CLIA [id number] [address] STATES OF [facility] Glucose [Mass/Vol] 101 mg/dL High 74-99 [facility] Comment on above: Order Comment: Elisa dominique Type: BLOOD SPECIMEN Ordering Facility: [facility] Address: [address] [address] Result Comment: The [place] Diabetes Association (ADA) provides guidance for cutoff [...] Standards of Medical Care in Diabetes 2016, [place] [employer]. Diabetes Care. 2016.39(Suppl 1). Performed By: #### 2 4321-2 #### [facility] CLIA [id number] [address] STATES OF [facility] Potassium [Moles/Vol] 4.1 mmol/L Normal 3.7-5.1 [facility] Comment on above: Order Comment: Speci men Type: BLOOD SPECIMEN Ordering Facility: [facility] Address: [address] [place] [address] Performed By: #### 2 1-2 #### [facility] CLIA [id number] [address] Sodium [Moles/Vol] 132 mmol/L Low 136-144 [facility] Comment on above: Order Comment: Speci men Type: BLOOD SPECIMEN Ordering Facility: [facility] Address: [address] [address] Performed By: #### 2 1-2 #### [facility] CLIA [id number] [address] Urea nitrogen [Mass/Vol] 16 mg/dL Normal 9-24 [facility] Comment on above: Order Comment: Speci men Type: BLOOD SPECIMEN Ordering Facility: [facility] Address: [address] [address] Performed By: #### 2 4321-2 #### [facility] CLIA [id number] [address] [place] CBC panel Auto (Bld)on 02-08 Erythrocyte distribution width (RBC) [Ratio] 12.4 % Normal 11.5-15.0 [facility] Comment on above: Order Comment: Speci men Type: BLOOD SPECIMEN Ordering Facility: [facility] Address: [address] [address] Performed By: #### 2 4321-2 #### [facility] CLIA [id number] [address] Hematocrit (Bld) [Volume fraction] 34.0 % Low 39.0-51.0 [facility] Comment on above: Order Comment: Speci men Type: BLOOD SPECIMEN Ordering Facility: [facility] Address: [address] [place] [address] Performed By: #### 2 4321-2 #### [facility] CLIA [id number] [address] Hemoglobin (Bld) [Mass/Vol] 11.6 g/dL Low 13.0-17.0 [facility] Comment on above: Order Comment: Speci men Type: BLOOD SPECIMEN Ordering Facility: [facility] Address: [address] [place] [address] Performed By: #### 2 4321-2 #### [facility] CLIA [id number] [address] MCH (RBC) [Entitic mass] 30.8 pg Normal 26.0-34.0 [facility] Comment on above: Order Comment: Speci men Type: BLOOD SPECIMEN Ordering Facility: [facility] Address: [address] [place] [address] Performed By: #### 2 4321-2 #### [facility] CLIA [id number] [address] OF [facility] MCHC (RBC) [Mass/Vol] 34.1 g/dL Normal 30.5-36.0 [facility] Comment on above: Order Comment: Speci men Type: BLOOD SPECIMEN Ordering Facility: [facility] Address: [address] [place] [address] Performed By: #### 2 4321-2 #### [facility] CLIA [id number] [address] MCV (RBC) [Entitic vol] 90.2 fL Normal 80.0-100.0 [facility] Comment on above: Order Comment: Speci men Type: BLOOD SPECIMEN Ordering Facility: [facility] Address: [address] [address] Performed By: #### 2 4321-2 #### [facility] CLIA [id number] [address] Nucleated RBC (Bld) [#/Vol] 10*3/uL Normal <0.01 [facility] Comment on above: Order Comment: Speci men Type: BLOOD SPECIMEN Ordering Facility: [facility] Address: [address] [address] Performed By: #### 2 4321-2 #### [facility] CLIA [id number] [address] [place] Platelet mean volume (Bld) [Entitic vol] 11.5 fL Normal 9.0-12.7 [facility] Comment on above: Order Comment: Speci men Type: BLOOD SPECIMEN Ordering Facility: [facility] Address: [address] [address] Performed By: #### 2 1-2 #### [facility] CLIA [id number] [address] [place] Platelets (Bld) [#/Vol] 236 10*3/uL Normal 150-400 [facility] Comment on above: Order Comment: Speci men Type: BLOOD SPECIMEN Ordering Facility: [facility] Address: [address] [address] Performed By: #### 2 4321-2 #### [facility] CLIA [id number] [address] [place] RBC (Bld) [#/Vol] 3.77 10*6/uL Low 4.20-6.00 [facility] Comment on above: Order Comment: Speci men Type: BLOOD SPECIMEN Ordering Facility: [facility] Address: [address] [place] [address] Performed By: #### 2 4321-2 #### [facility] CLIA [id number] [address] [place] [address] [place] WBC (Bld) [#/Vol] 8.28 10*3/uL Normal 3.70-11.00 [facility] Comment on above: Order Comment: Speci men Type: BLOOD SPECIMEN Ordering Facility: [facility] Address: [address] [place] [address] Performed By: #### 2 4321-2 #### [facility] CLIA [id number] [address] [place] [address] [place] Absolute lymphocyte countOrd ered By: Neo Alcaraz on 02-07-2023 Lymphocytes Auto (Unsp spec) [#/Vol] 0.65 10*3/uL 0.83-4.51 [facility] Basic metabolic 2000 panelon 02-07-2023 Anion gap [Moles/Vol] 12 mmol/L Normal 9-18 [facility] Comment on above: Order Comment: Speci men Type: BLOOD SPECIMEN Ordering Facility: [facility] Address: [address] [place] [address] Performed By: #### 2 4321-2 #### [facility] CLIA [id number] [address] [place] [address] [place] Calcium [Mass/Vol] 8.3 mg/dL Low 8.5-10.2 [facility] Comment on above: Order Comment: Speci men Type: BLOOD SPECIMEN Ordering Facility: [facility] Address: [address] [place] [address] Performed By: #### 2 4321-2 #### [facility] CLIA [id number] [address] [place] [address] [place] Chloride [Moles/Vol] 106 mmol/L High 97-105 [facility] Comment on above: Order Comment: Speci men Type: BLOOD SPECIMEN Ordering Facility: [facility] Address: [address] [place] [address] Performed By: #### 2 4321-2 #### [facility] CLIA [id number] [address] [place] [address] [place] [place] CO2 [Moles/Vol] 18 mmol/L Low 22-30 [facility] Comment on above: Order Comment: Speci men Type: BLOOD SPECIMEN Ordering Facility: [facility] Address: [address] [address] Performed By: #### 2 4321-2 #### [facility] CLIA [id number] [address] [place] Creatinine [Mass/Vol] 1.21 mg/dL Normal 0.73-1.22 [facility] Comment on above: Order Comment: Elisa catina Type: BLOOD SPECIMEN Ordering Facility: [facility] Address: [address] [address] Performed By: #### 2 4321-2 #### [facility] CLIA [id number] [address] Creatinine and Glomerular filtration rate.predicted panel (S/P/Bld) 62 mL/min/1.73m??? Normal >=60 [facility] Comment on above: Order Comment: Elisa catina Type: BLOOD SPECIMEN Ordering Facility: [facility] Address: [address] [place] [address] Result Comment: Christy mated Glomerular Filtration Rate [...] GFR. Performed By: #### 2 4321-2 #### [facility] CLIA [id number] [address] [place] [address] [place] Glucose [Mass/Vol] 116 mg/dL High 74-99 [facility] Comment on above: Order Comment: Caydenjoseline dominique Type: BLOOD SPECIMEN Ordering Facility: [facility] Address: [address] [place] [address] Result Comment: The [place] Diabetes Association (ADA) provides guidance for cutoff [...] Standards of Medical Care in Diabetes 2016, [place] [employer]. Diabetes Care. 2016.39(Suppl 1). Performed By: #### 2 4321-2 #### [facility] CLIA [id number] [address] OF [facility] Potassium [Moles/Vol] 4.1 mmol/L Normal 3.7-5.1 [facility] Comment on above: Order Comment: Elisa dominique Type: BLOOD SPECIMEN Ordering Facility: [facility] Address: [address] [place] [address] Performed By: #### 2 4321-2 #### [facility] CLIA [id number] [address] [place] [address] [place] [facility] Sodium [Moles/Vol] 136 mmol/L Normal 136-144 [facility] Comment on above: Order Comment: Elisa dominique Type: BLOOD SPECIMEN Ordering Facility: [facility] Address: [address] [place] [address] Performed By: #### 2 4321-2 #### [facility] CLIA [id number] [address] [place] [address] STATES [facility] Urea nitrogen [Mass/Vol] 18 mg/dL Normal 9-24 [facility] Comment on above: Order Comment: Elisa dominique Type: BLOOD SPECIMEN Ordering Facility: [facility] Address: [address] [address] Performed By: #### 2 4321-2 #### [facility] CLIA [id number] 1 [place] [address] [place] Basophil percentageOrdered B y: Neo Kieran on 02-07-2023 Basophils/100 WBC (Bld) 0.4 % 0-1 [facility] Chloride [Moles/Vol] 110 mmol/L 98-107 [facility] Eosinophils/100 WBC (Bld) 2.3 % 0-5 [facility] Glucose [Mass/Vol] 113 mg/dL 74-106 [facility] Comment on above: Fasting Glucose resu lt from 100 to 125 mg/dL suggests IMPAIRED HOMEOSTASIS per A.D.A. criteria. Neutrophils (Bld) [#/Vol] 7.3 10*3/uL 2.0-7.7 [facility] Neutrophils/100 WBC (Bld) 80.6 % 47-70 [facility] Potassium [Moles/Vol] 3.9 mmol/L 3.5-5.1 [facility] Sodium [Moles/Vol] 137 mmol/L 136-145 [facility] WBC (Bld) [#/Vol] 9.1 10*3/uL 4.4-11.0 [facility] Blood erythrocytes count (nu mber/volume)Ordered By: Neo Alcaraz on 02-07-2023 RBC (Bld) [#/Vol] 4.19 10*6/uL 4.6-6.2 [facility] Blood hemoglobin measurement (mass/volume)Ordered By: Neo Alcaraz on 02-07-2023 Hemoglobin (Bld) [Mass/Vol] 12.8 g/dL 13.0-16.5 [facility] Blood lymphocytes/100 leukoc ytesOrdered By: Neo Alcaraz on 02-07-2023 Lymphocytes/100 WBC (Bld) 7.2 % 19-41 [facility] Blood monocytes/100 leukocyt esOrdered By: Neo Alcaraz on 02-07-2023 Monocytes/100 WBC (Bld) 8.9 % 0-10 [facility] Blood platelet mean volumeOr dered By: Neo Alcaraz on 02-07-2023 Platelet mean volume (Bld) [Entitic vol] 10.6 fL 6.2-12.0 [facility] CBC panel Auto (Bld)on 02-07 Erythrocyte distribution width (RBC) [Ratio] 12.3 % Normal 11.5-15.0 [facility] Comment on above: Order Comment: Speci men Type: BLOOD SPECIMEN Ordering Facility: [facility] Address: [address] [place] [id number] Performed By: #### 5 5779-2 #### [facility] CLIA [id number] [address] Hematocrit (Bld) [Volume fraction] 37.5 % Low 39.0-51.0 [facility] Comment on above: Order Comment: Speci men Type: BLOOD SPECIMEN Ordering Facility: [facility] Address: [address] [place] [address] Performed By: #### 5 8410-2 #### [facility] CLIA [id number] [address] OF [facility] Hemoglobin (Bld) [Mass/Vol] 12.2 g/dL Low 13.0-17.0 [facility] Comment on above: Order Comment: Speci men Type: BLOOD SPECIMEN Ordering Facility: [facility] Address: [address] [place] [address] Performed By: #### 5 8410-2 #### [facility] CLIA [id number] [address] MCH (RBC) [Entitic mass] 30.8 pg Normal 26.0-34.0 [facility] Comment on above: Order Comment: Speci men Type: BLOOD SPECIMEN Ordering Facility: [facility] Address: [address] [place] [address] Performed By: #### 5 8410-2 #### [facility] CLIA [id number] [address] MCHC (RBC) [Mass/Vol] 32.5 g/dL Normal 30.5-36.0 [facility] Comment on above: Order Comment: Speci men Type: BLOOD SPECIMEN Ordering Facility: [facility] Address: [address] [place] [address] Performed By: #### 5 8410-2 #### [facility] CLIA [id number] [address] MCV (RBC) [Entitic vol] 94.7 fL Normal 80.0-100.0 [facility] Comment on above: Order Comment: Speci men Type: BLOOD SPECIMEN Ordering Facility: [facility] Address: [address] [address] Performed By: #### 5 8410-2 #### [facility] CLIA [id number] [address] Nucleated RBC (Bld) [#/Vol] 10*3/uL Normal <0.01 [facility] Comment on above: Order Comment: Speci men Type: BLOOD SPECIMEN Ordering Facility: [facility] Address: [address] [address] Performed By: #### 5 8410-2 #### [facility] CLIA [id number] [address] Platelet mean volume (Bld) [Entitic vol] 11.0 fL Normal 9.0-12.7 [facility] Comment on above: Order Comment: Speci men Type: BLOOD SPECIMEN Ordering Facility: [facility] Address: [address] [address] Performed By: #### 5 8410-2 #### [facility] CLIA [id number] [address] Platelets (Bld) [#/Vol] 165 10*3/uL Normal 150-400 [facility] Comment on above: Order Comment: Speci men Type: BLOOD SPECIMEN Ordering Facility: [facility] Address: [address] [address] Performed By: #### 5 8410-2 #### [facility] CLIA [id number] [address] [place] RBC (Bld) [#/Vol] 3.96 10*6/uL Low 4.20-6.00 [facility] Comment on above: Order Comment: Speci men Type: BLOOD SPECIMEN Ordering Facility: [facility] Address: [address] [address] Performed By: #### 5 8410-2 #### [facility] CLIA [id number] [address] WBC (Bld) [#/Vol] 7.55 10*3/uL Normal 3.70-11.00 [facility] Comment on above: Order Comment: Speci men Type: BLOOD SPECIMEN Ordering Facility: [facility] Address: [place] [address] Performed By: #### 5 8410-2 #### [facility] CLIA [id number] [address] CONSULTon 02-07-2023 CONSULT HNO ID: [id number] Author: Jose Mcneil MD Service: Urology Author [...] 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 [...] Procedure Laterality Date COLONOSCOP W/ OR W/O [facility] SPEC 11/21/15 Colonoscopy COLONOSCOPY W/BX 10/03/06 PROSTATE [...] components found for: UA Urine Culture: RADIOLOGY: [facility] CT NON-RADIOLOGY -NBNR [facility] - CT Images - Obtained Outside of Imaging [place] IMPRESSION: 77 year old male with gross hematuria. 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 Normal [facility] Determination of erythrocyte mean corpuscular volume (MCV)Ordered By: Neo Alcaraz on 02-07-2023 MCV (RBC) [Entitic vol] 90.2 fL 80-94 [facility] ED NOTEon 02-07-2023 ED NOTE HNO ID: [id number] Author: Margie Amezquita RN Service: Emergency Medicine Author Type: Registered Nurse Type: ED Notes Filed: 02/07/2023 8:08 PM Note Text: Yaz updated at this time with pt's permission. Pt updated on care plan, no other questions at this time. Normal [facility] ED NOTE HNO ID: [id number] Author: Margie Amezquita RN Service: Emergency Medicine Author Type: Registered Nurse Type: ED Notes Filed: 02/07/2023 8:06 PM Note Text: 1000 cc emptied from urine bag, pt still on continuous bladder irrigation Normal [facility] ED NOTE HNO ID: [id number] Author: Roberta Salazar, RN Service: Emergency Medicine Author Type: Registered Nurse Type: ED Notes Filed: 02/07/2023 6:08 PM Note Text: Pt arrives to ED from [place] ED for hematuria. Pt noted this morning some bloody urine. Pt had catheter changed twice today and irrigated it. Pt arrives with bloody urine. [facility] ED NOTE HNO ID: [id number] Author: Kourtney Mendez, [place] Service: ? Author Type: Registered Nurse Type: ED Notes Filed: 02/07/2023 6:05 PM Note Text: Bed: 46-ED Expected date: Expected time: Means of arrival: Comments: squad Normal [facility] ED PROV NOTEon 02-07-2023 ED PROV NOTE HNO ID: [id number] Author: Cameron Vicente MD Service: Emergency Medicine [...] developed urinary retention and went to the [place] ED today. They attempted to place a [...] suprapubic tenderness is present. Genitourinary: Comments: [address] [place] catheter in place. There is bright [...] Patient does have a Worthy catheter, [address] They were unable to place a three-way catheter at [place] [facility]. Unable to clear the blood. Patient sent for urology consult. Urology was consulted on arrival and they recommended admission for observation and irrigation at this time. Patient be admitted to Dr. Grewal from urology. SIGNATURE: MD DEVANTE Grace CAMERON D 02/07/23 [id number] Attending Note I evaluated the patient and personally participated in the hurd components. I was present for hurd portions and personally supervised any/all resuscitation/pro (more content not included)... Normal [facility] Hematocrit Auto (Bld) [Volum e fraction]Ordered By: Neo Alcaraz on 02-07-2023 Hematocrit (Bld) [Volume fraction] 37.8 % 40-54 [facility] - Chemistry and C hemistry - challengeOrdered By: Neo Alcaraz on 02-07-2023 CO2 [Moles/Vol] 19.0 mmol/L 21.0-32.0 [facility] Urea nitrogen/Creatinine [Mass ratio] 14.5 mg/mg 10-20 [facility] - Hematology and Cell countsOrdered By: Neo Alcaraz on 02-07-2023 Erythrocyte distribution width (RBC) [Entitic vol] 40.5 fL 35.1-43.9 [facility] Erythrocyte distribution width (RBC) [Ratio] 12.3 % 11.6-14.6 [facility] Immature granulocytes/100 WBC (Bld) 0.600 % 0.0-0.9 [facility] Comment on above: IG% - Immature Granu locytes (promyelocytes, myelocytes and metamyelocytes) > 1% indicates that a LEFT SHIFT is Present. MCH (RBC) [Entitic mass] 30.5 pg 27.0-32.0 [facility] Nucleated RBC/100 WBC (Bld) [Ratio] 0 % 0-5 [facility] MCHC Auto (RBC) [Mass/Vol]Or dered By: Neo Alcaraz on 02-07-2023 MCHC (RBC) [Mass/Vol] 33.9 g/dL 32-36 [facility] No Panel InformationOrdered By: Neo Alcaraz on 02-07-2023 Estimated Creatinine Clearance Calc 41.45 ml/min [facility] Estimated GFR (MDRD) Amer 55 mL/min >60 [facility] Comment on above: GFR Calc Estimated GFR (MDRD) Non-Af Amer 45 mL/min >60 [facility] Comment on above: Non- GFR Calc Platelets bldOrdered By: Arnoldo Alcaraz on 02-07-2023 Platelets (Bld) [#/Vol] 241 10*3/uL 150-450 [facility] Serum or plasma calcium janusz urement (mass/volume)Ordered By: Neo Alcaraz on 02-07-2023 Calcium [Mass/Vol] 9.0 mg/dL 8.5-10.1 [facility] Serum or plasma creatinine m easurement (mass/volume)Ordered By: Neo Alcaraz on 02-07-2023 Creatinine [Mass/Vol] 1.59 mg/dL 0.70-1.30 [facility] Comment on above: The validity of the calculated GFR & GFRAA in patients over 70 years has not been determined. Clinical correlation is essential. Serum or plasma urea nitroge n measurement (mass/volume)Ordered By: Neo Alcaraz on 02-07-2023 Urea nitrogen [Mass/Vol] 23 mg/dL 7-18 [facility] Thin prep Papanicolaou smear with manual screeningOrdered By: Neo Alcaraz on 02-07-2023 Thin prep Papanicolaou smear with manual screening 8 5-15 [facility] Absolute lymphocyte countOrd ered By: Columba Decker on 02-02-2023 Lymphocytes Auto (Unsp spec) [#/Vol] 0.58 10*3/uL 0.83-4.51 [facility] Basophil percentageOrdered B y: Columba Decker on 02-02-2023 Basophil percentage 0-5 SEEN /hpf 0-5 [facility] Basophils/100 WBC (Bld) 0.6 % 0-1 [facility] Chloride [Moles/Vol] 108 mmol/L 98-107 [facility] Eosinophils/100 WBC (Bld) 0.9 % 0-5 [facility] Glucose [Mass/Vol] 120 mg/dL 74-106 [facility] Comment on above: Fasting Glucose resu lt from 100 to 125 mg/dL suggests IMPAIRED HOMEOSTASIS per A.D.A. criteria. Neutrophils (Bld) [#/Vol] 5.4 10*3/uL 2.0-7.7 [facility] Neutrophils/100 WBC (Bld) 81.7 % 47-70 [facility] Potassium [Moles/Vol] 4.0 mmol/L 3.5-5.1 [facility] Sodium [Moles/Vol] 136 mmol/L 136-145 [facility] WBC (Bld) [#/Vol] 6.6 10*3/uL 4.4-11.0 [facility] Bilirubin Test strip Ql (U)O rdered By: Columba Decker on 02-02-2023 Bilirubin Ql (U) Negative Negative [facility] Blood erythrocytes count (nu mber/volume)Ordered By: Columba Decker on 02-02-2023 RBC (Bld) [#/Vol] 4.25 10*6/uL 4.6-6.2 [facility] Blood hemoglobin measurement (mass/volume)Ordered By: Columba Decker on 02-02-2023 Hemoglobin (Bld) [Mass/Vol] 13.1 g/dL 13.0-16.5 [facility] Blood lymphocytes/100 leukoc ytesOrdered By: Columba Decker on 02-02-2023 Lymphocytes/100 WBC (Bld) 8.7 % 19-41 [facility] Blood manual differential co mment interpretation (narrative result)Ordered By: Columba Decker on 02-02-2023 Manual differential comment Kristian (Bld) [Interp] SCANNED [facility] Blood monocytes/100 leukocyt esOrdered By: Columba Decker on 02-02-2023 Monocytes/100 WBC (Bld) 7.8 % 0-10 [facility] Blood platelet mean volumeOr dered By: Columba Decker on 02-02-2023 Platelet mean volume (Bld) [Entitic vol] 10.4 fL 6.2-12.0 [facility] Culture, urineOrdered By: Leodan Decker on 02-02-2023 Bacteria identified Cx Nom (U) Staphylococcus haemolyticus [facility] Determination of erythrocyte mean corpuscular volume (MCV)Ordered By: Columba Decker on 02-02-2023 MCV (RBC) [Entitic vol] 91.1 fL 80-94 [facility] Hematocrit Auto (Bld) [Volum e fraction]Ordered By: Columba Decker on 02-02-2023 Hematocrit (Bld) [Volume fraction] 38.7 % 40-54 [facility] INR in Blood by Coagulation assayOrdered By: Columba Decker on 02-02-2023 INR Coag (Bld) [Relative time] 1.1 {INR} [facility] Ketones Test strip Ql (U)Ord ered By: Columba Decker on 02-02-2023 Ketones Ql (U) 5 mg/dl Negative [facility] Laboratory - Chemistry and C hemistry - challengeOrdered By: Columba Decker on 02-02-2023 CO2 [Moles/Vol] 20.0 mmol/L 21.0-32.0 [facility] Urea nitrogen/Creatinine [Mass ratio] 14.1 mg/mg 10-20 [facility] Laboratory - CoagulationOrde red By: Columba Decker on 02-02-2023 aPTT Coag (Bld) [Time] 31.4 s 24.1-36.2 [facility] PT Coag (PPP) [Time] 14.5 s 11.7-14.9 [facility] Laboratory - Hematology and Cell countsOrdered By: Columba Decker on 02-02-2023 Erythrocyte distribution width (RBC) [Entitic vol] 41.3 fL 35.1-43.9 [facility] Erythrocyte distribution width (RBC) [Ratio] 12.4 % 11.6-14.6 [facility] Immature granulocytes/100 WBC (Bld) 0.300 % 0.0-0.9 [facility] Comment on above: IG% - Immature Granu locytes (promyelocytes, myelocytes and metamyelocytes) > 1% indicates that a LEFT SHIFT is Present. MCH (RBC) [Entitic mass] 30.8 pg 27.0-32.0 [facility] Nucleated RBC/100 W[facility] (Bld) [Ratio] 0 % 0[facility]5 [facility] [Mass/Vol]Or dered By: Columba Decker on 02-02-2023 MCHC (RBC) [Mass/Vol] 33.9 g/dL 32-36 [facility] Mucus LM Ql (Urine sed)Order ed By: Columba Decker on 02-02-2023 Mucus Ql (Urine sed) 0 SEEN /hpf [facility] Nitrite Test strip Ql (U)Ord ered By: Columba Decker on 02-02-2023 Nitrite Ql (U) Positive Negative [facility] No Panel InformationOrdered By: Columba Decker on 02-02-2023 Estimated Creatinine Clearance Calc 46.41 ml/min [facility] Estimated GFR (MDRD) Amer 63 mL/min >60 [facility] Comment on above: GFR Calc Estimated GFR (MDRD) Non-Af Amer 52 mL/min >60 [facility] Comment on above: Non- GFR Calc Platelets bldOrdered By: Chana Decker on 02-02-2023 Platelets (Bld) [#/Vol] 228 10*3/uL 150-450 [facility] Protein Test strip Ql (U)Ord ered By: Columba Decker on 02-02-2023 Protein Ql (U) 100 mg/dl Negative [facility] Serum or plasma calcium janusz urement (mass/volume)Ordered By: Columba Decker on 02-02-2023 Calcium [Mass/Vol] 8.7 mg/dL 8.5-10.1 [facility] Serum or plasma creatinine m easurement (mass/volume)Ordered By: Columba Decker on 02-02-2023 Creatinine [Mass/Vol] 1.42 mg/dL 0.70-1.30 [facility] Comment on above: The validity of the calculated GFR & GFRAA in patients over 70 years has not been determined. Clinical correlation is essential. Serum or plasma urea nitroge n measurement (mass/volume)Ordered By: Columba Decker on 02-02-2023 Urea nitrogen [Mass/Vol] 20 mg/dL 7-18 [facility] Squamous epithelial cells de tection in urine sediment by light microscopyOrdered By: Columba Decker on 02-02-2023 Epithelial cells.squamous LM Ql (Urine sed) 0 SEEN /hpf 0-5 [facility] Thin prep Papanicolaou smear with manual screeningOrdered By: Columba Decker on 02-02-2023 Thin prep Papanicolaou smear with manual screening 8 5-15 [facility] Urine blood detectionOrdered By: Columba Decker on 02-02-2023 RBC Ql (U) 250 /ul Negative [facility] RBC Ql (U) 50-100 SEEN /hpf 0-5 [facility] Urine clarityOrdered By: Chana Decker on 02-02-2023 Clarity (U) Clear Clear [facility] Urine color determinationOrd ered By: Columba Decker on 02-02-2023 Color (U) Yellow Yellow [facility] Urine glucose detectionOrder ed By: Columba Decker on 02-02-2023 Glucose Ql (U) Normal mg/dl Normal [facility] Urine leukocyte esterase det ection by dipstickOrdered By: Columba Decker on 02-02-2023 Leukocyte esterase Test strip Ql (U) 100 /ul Negative [facility] Urine pHOrdered By: Columba Decker on 02-02-2023 pH (U) 6.5 [pH] 5.0 - 8.0 [facility] Urine sediment bacteria coun t by microscopy (number/high power field)Ordered By: Columba Decker on 02-02-2023 Bacteria LM.HPF (Urine sed) [#/Area] RARE /hpf None Seen [facility] Urine specific gravity measu rementOrdered By: Columba Decker on 02-02-2023 Specific gravity (U) [Rel density] 1.005 1.002-1.030 [facility] Urobilinogen Auto test strip Ql (U)Ordered By: Columba Decker on 02-02-2023 Urobilinogen Ql (U) Normal mg/dl Normal [facility] Basophil percentageOrdered B y: Eduardo Guille on 01-03-2023 Chloride [Moles/Vol] 109 mmol/L 98-107 [facility] Cholesterol [Mass/Vol] 177 mg/dL <200 [facility] Comment on above: <200 mg/dL Desirable 200-240 mg/dL Borderline >240 mg/dL High Risk Glucose [Mass/Vol] 112 mg/dL 74-106 [facility] Comment on above: Fasting Glucose resu lt from 100 to 125 mg/dL suggests IMPAIRED HOMEOSTASIS per A.D.A. criteria. Potassium [Moles/Vol] 4.1 mmol/L 3.5-5.1 [facility] Sodium [Moles/Vol] 138 mmol/L 136-145 [facility] Triglyceride [Mass/Vol] 100 mg/dL <199 [facility] Comment on above: The drugs N-Acetylcy steine and Metamizole may falsely depress this assay.Serum Triglycerides Reference Interval Normal <150 mg/dL Borderline high 150 - 199 mg/dL High 200 - 499 mg/dL Very High > or = 500 mg/dL Laboratory - Chemistry and C hemistry - challengeOrdered By: Eduardo Han on 01-03-2023 CO2 [Moles/Vol] 23.0 mmol/L 21.0-32.0 [facility] Urea nitrogen/Creatinine [Mass ratio] 16.7 mg/mg 10-20 [facility] No Panel InformationOrdered By: Eduardo Han on 01-03-2023 Estimated GFR (MDRD) Amer 72 mL/min >60 [facility] Comment on above: GFR Calc Estimated GFR (MDRD) Non-Af Amer 59 mL/min >60 [facility] Comment on above: Non- GFR Calc Serum or plasma calcium janusz urement (mass/volume)Ordered By: Eduardo Han on 01-03-2023 Calcium [Mass/Vol] 8.9 mg/dL 8.5-10.1 [facility] Serum or plasma cholesterol in HDL measurement (mass/volume)Ordered By: Eduardo Han on 01-03-2023 Cholesterol in HDL [Mass/Vol] 49 mg/dL >40 [facility] Comment on above: The drugs N-Acetylcy steine and Metamizole may falsely depress this assay. Reference Range HDL <40 mg/dL Low HDL Cholesterol HDL >or= 60 mg/dL High HDL Cholesterol Serum or plasma cholesterol in VLDL measurement (mass/volume)Ordered By: Eduardo Han on 01-03-2023 Cholesterol in VLDL [Mass/Vol] 20 mg/dL 5-40 [facility] Serum or plasma creatinine m easurement (mass/volume)Ordered By: Eduardo Han on 01-03-2023 Creatinine [Mass/Vol] 1.26 mg/dL 0.70-1.30 [facility] Comment on above: The validity of the calculated GFR & GFRAA in patients over 70 years has not been determined. Clinical correlation is essential. Serum or plasma low density lipoprotein (LDL) cholesterol measurement (mass/volume)Ordered By: Eduardo Han on 01-03-2023 Cholesterol in LDL [Mass/Vol] 108 mg/dL 0-130 [facility] Serum or plasma urea nitroge n measurement (mass/volume)Ordered By: Eduardo Han on 01-03-2023 Urea nitrogen [Mass/Vol] 21 mg/dL 7-18 [facility] Thin prep Papanicolaou smear with manual screeningOrdered By: Eduardo Han on 01-03-2023 Thin prep Papanicolaou smear with manual screening 6 5-15 [facility] No Panel InformationOrdered By: Zhao Gilliland on 12-03-2022 Prostate Specific Antigen Total < 0.01 ng/mL 0.0-4.0 [facility] Comment on above: This test was perfor med using the TPSA assay method for the[employer] chemistry system. Values obtained with differentassay methods cannot be used interchangably.When changing PSA assays in the course of monitoring apatient, additional sequential testing should be carriedout to confirm baseline values. Basophil percentageOrdered B y: Dr. Han on 07-05-2022 Bilirubin [Mass/Vol] 0.60 mg/dL 0.20-1.00 [facility] Comment on above: For patients on eltr ombopag therapy, use of Dimension Entiat TBIL is not recommended. Chloride [Moles/Vol] 108 mmol/L 98-107 [facility] Cholesterol [Mass/Vol] 181 mg/dL <200 [facility] Comment on above: <200 mg/dL Desirable 200-240 mg/dL Borderline >240 mg/dL High Risk Glucose [Mass/Vol] 121 mg/dL 74-106 [facility] Comment on above: Fasting Glucose resu lt from 100 to 125 mg/dL suggests IMPAIRED HOMEOSTASIS per A.D.A. criteria. Potassium [Moles/Vol] 4.2 mmol/L 3.5-5.1 [facility] Protein [Mass/Vol] 7.6 g/dL 6.4-8.2 [facility] Sodium [Moles/Vol] 139 mmol/L 136-145 [facility] Triglyceride [Mass/Vol] 101 mg/dL <199 [facility] Comment on above: The drugs N-Acetylcy steine and Metamizole may falsely depress this assay.Serum Triglycerides Reference Interval Normal <150 mg/dL Borderline high 150 - 199 mg/dL High 200 - 499 mg/dL Very High > or = 500 mg/dL Laboratory - Chemistry and C hemistry - challengeOrdered By: Dr. Han on 07-05-2022 ALP [Catalytic activity/Vol] 77 U/L 45-117 [facility] ALT [Catalytic activity/Vol] 19 U/L 16-61 [facility] CO2 [Moles/Vol] 23.0 mmol/L 21.0-32.0 [facility] Globulin (S) [Mass/Vol] 3.9 g/dL 2.2-4.2 [facility] Urea nitrogen/Creatinine [Mass ratio] 13.6 mg/mg 10-20 [facility] No Panel InformationOrdered By: Dr. Han on 07-05-2022 Estimated GFR (MDRD) Amer 68 mL/min >60 [facility] Comment on above: GFR Calc Estimated GFR (MDRD) Non-Af Amer 56 mL/min >60 [facility] Comment on above: Non- GFR Calc Prostate Specific Antigen Total < 0.01 ng/mL 0.0-4.0 [facility] Comment on above: This test was perfor med using the TPSA assay method for the[employer] chemistry system. Values obtained with differentassay methods cannot be used interchangably.When changing PSA assays in the course of monitoring apatient, additional sequential testing should be carriedout to confirm baseline values. Serum or plasma albumin janusz urement (mass/volume)Ordered By: Dr. Han on 07-05-2022 Albumin [Mass/Vol] 3.7 g/dL 3.2-5.0 [facility] Serum or plasma albumin/glob ulin mass ratioOrdered By: Dr. Han on 07-05-2022 Albumin/Globulin [Mass ratio] 0.9 {ratio} 0.9-2.4 [facility] Serum or plasma calcium janusz urement (mass/volume)Ordered By: Dr. Han on 07-05-2022 Calcium [Mass/Vol] 8.9 mg/dL 8.5-10.1 [facility] Serum or plasma cholesterol in HDL measurement (mass/volume)Ordered By: Dr. Han on 07-05-2022 Cholesterol in HDL [Mass/Vol] 51 mg/dL >40 [facility] Comment on above: The drugs N-Acetylcy steine and Metamizole may falsely depress this assay. Reference Range HDL <40 mg/dL Low HDL Cholesterol HDL >or= 60 mg/dL High HDL Cholesterol Serum or plasma cholesterol in VLDL measurement (mass/volume)Ordered By: Dr. Han on 07-05-2022 Cholesterol in VLDL [Mass/Vol] 20 mg/dL 5-40 [facility] Serum or plasma creatinine m easurement (mass/volume)Ordered By: Dr. Han on 07-05-2022 Creatinine [Mass/Vol] 1.32 mg/dL 0.70-1.30 [facility] Comment on above: The validity of the calculated GFR & GFRAA in patients over 70 years has not been determined. Clinical correlation is essential. Serum or plasma low density lipoprotein (LDL) cholesterol measurement (mass/volume)Ordered By: Dr. Han on 07-05-2022 Cholesterol in LDL [Mass/Vol] 110 mg/dL 0-130 [facility] Serum or plasma urea nitroge n measurement (mass/volume)Ordered By: Dr. Han on 07-05-2022 Urea nitrogen [Mass/Vol] 18 mg/dL 7-18 [facility] Serum or plasma uric acid me asurement (mass/volume)Ordered By: Dr. Han on 07-05-2022 Urate [Mass/Vol] 8.3 mg/dL 3.5-7.2 [facility] Comment on above: The drugs N-Acetylcy steine and Metamizole may falsely depress this assay. Thin prep Papanicolaou smear with manual screeningOrdered By: Dr. Han on 07-05-2022 Thin prep Papanicolaou smear with manual screening 17 U/L 15-37 [facility] Thin prep Papanicolaou smear with manual screening 8 5-15 [facility] No Panel Informationon 12-28 Prostate Specific Antigen Total 0.03 ng/mL 0.0-4.0 [facility] Work Phone: Comment on above: This test was perfor med using the TPSA assay method for the[employer] chemistry system. Values obtained with differentassay methods cannot be used interchangably.When changing PSA assays in the course of monitoring apatient, additional sequential testing should be carriedout to confirm baseline values. Vital Signs Date Time Vital Sign Value Performing Clinician Faci lity 01-07-2025 14:10-0400 Body height 175.[address] Kelvin Han MD Work Phone: [facility] 01-07-2025 14:10-0400 Body mass index (BMI) [Ratio] 29.3 kg/m2 Dr. Kelvin Han MD Work Phone: [facility] 01-07-2025 14:10-0400 Body temperature 98.1 [degF] Dr. Kelvin Han MD Work Phone: [facility] 01-07-2025 14:10-0400 Body weight 90.[address] Kelvin Han MD Work Phone: [facility] 01-07-2025 14:10-0400 Diastolic blood pressure 70 mm[Hg] Dr. Kelvin Han MD Work Phone: [facility] 01-07-2025 14:10-0400 Heart rate 89 /min Dr. Kelvin Han MD Work Phone: [facility] 01-07-2025 14:10-0400 Respiratory rate 16 /min Dr. Kelvin Han MD Work Phone: [facility] 01-07-2025 14:10-0400 SaO2% (BldA) [Mass fraction] 99 % Dr. Kelvin Han MD Work Phone: 9(064)585-059474 [place] [address] 01-07-2025 14:10-0400 Systolic blood pressure 118 mm[Hg] Dr. Kelvin Han MD Work Phone: 0(791)698-336174 [place] [address] 11-18-2024 23:02-0400 Body temperature 98.2 [degF] Dr. Kelvin Han MD Work Phone: 6(620)764-049474 [place] [address] 11-18-2024 23:02-0400 Diastolic blood pressure 82 mm[Hg] Dr. Kelvin Han MD Work Phone: 8(215)904-262974 [place] [address] 11-18-2024 23:02-0400 Heart rate 89 /min Dr. Kelvin Han MD Work Phone: 2(991)847-784074 [place] [address] 11-18-2024 23:02-0400 Respiratory rate 16 /min Dr. Kelvin Han MD Work Phone: 2(756)774-771974 [place] [address] 11-18-2024 23:02-0400 SaO2% (BldA) [Mass fraction] 98 % Dr. Kelvin Han MD Work Phone: 2(334)963-869074 [place] [address] 11-18-2024 23:02-0400 Systolic blood pressure 120 mm[Hg] Dr. Kelvin Han MD Work Phone: 8(788)957-503674 [place] [address] 11-18-2024 22:26-0400 Body height 175.[address] Kelvin Han MD Work Phone: 7(041)428-856874 [place] [address] 11-18-2024 22:26-0400 Body mass index (BMI) [Ratio] 28.3 kg/m2 Dr. Kelvin Han MD Work Phone: 2(114)648-772674 [place] [address] 11-18-2024 22:26-0400 Body weight 86.[address] Kelvin Han MD Work Phone: 8(504)291-236774 [place] [address] 11-14-2024 00:46-0400 Body temperature 97.6 [degF] Dr. Kelvin Han MD Work Phone: 0(614)822-634874 [place] [address] 11-14-2024 00:46-0400 Diastolic blood pressure 77 mm[Hg] Dr. Kelvin Han MD Work Phone: [facility] 11-14-2024 00:46-0400 Heart rate 69 /min Dr. Kelvin Han MD Work Phone: [facility] 11-14-2024 00:46-0400 Respiratory rate 16 /min Dr. Kelvin Han MD Work Phone: [facility] 11-14-2024 00:46-0400 SaO2% (BldA) [Mass fraction] 97 % Dr. Kelvin Han MD Work Phone: 4(144)229-338146 [place] [address] 11-14-2024 00:46-0400 Systolic blood pressure 117 mm[Hg] Dr. Kelvin Han MD Work Phone: 3(014)800-812874 [place] [address] 11-13-2024 20:29-0400 Body height 175.[address] Kelvin Han MD Work Phone: 2(757)577-104374 [place] [address] 11-13-2024 20:29-0400 Body mass index (BMI) [Ratio] 28 kg/m2 Dr. Kelvin Han MD Work Phone: 1(586)837-824874 [place] [address] 11-13-2024 20:29-0400 Body weight 85.[address] Kelvin Han MD Work Phone: 3(072)557-164344 [address] 10-16-2024 03:03-0400 Body temperature 98 [degF] Dr. Kelvin Han MD Work Phone: [facility] 10-16-2024 03:03-0400 Diastolic blood pressure 56 mm[Hg] Dr. Kelvin Han MD Work Phone: 4(041)529-641644 [address] 10-16-2024 03:03-0400 Heart rate 69 /min Dr. Kelvin Han MD Work Phone: 2(117)624-638446 [place] [address] 10-16-2024 03:03-0400 Respiratory rate 16 /min Dr. Kelvin Han MD Work Phone: 2(916)363-721546 [place] [address] 10-16-2024 03:03-0400 SaO2% (BldA) [Mass fraction] 99 % Dr. Kelvin Han MD Work Phone: [facility] 10-16-2024 03:03-0400 Systolic blood pressure 128 mm[Hg] Dr. Kelvin Han MD Work Phone: [facility] 10-16-2024 01:50-0400 Body height 175.[address] Kelvin Han MD Work Phone: 6(049)449-648546 [place] [address] 10-16-2024 01:50-0400 Body mass index (BMI) [Ratio] 27.7 kg/m2 Dr. Kelvin Han MD Work Phone: 5(927)395-912246 [place] [address] 10-16-2024 01:50-0400 Body weight 85.[address] Kelvin Han MD Work Phone: 9(796)718-412646 [place] [address] 08-20-2024 14:30-0400 Body temperature 98.3 [degF] Dr. Kelvin Han MD Work Phone: [facility] 08-20-2024 14:30-0400 Diastolic blood pressure 68 mm[Hg] Dr. Kelvin Han MD Work Phone: [facility] 08-20-2024 14:30-0400 Heart rate 70 /min Dr. Kelvin Han MD Work Phone: [facility] 08-20-2024 14:30-0400 Respiratory rate 16 /min Dr. Kelvin Han MD Work Phone: [facility] 08-20-2024 14:30-0400 SaO2% (BldA) [Mass fraction] 97 % Dr. Kelvin Han MD Work Phone: [facility] 08-20-2024 14:30-0400 Systolic blood pressure 126 mm[Hg] Dr. Kelvin Han MD Work Phone: [facility] 08-20-2024 11:03-0400 Body height 175.[address] Kelvin Han MD Work Phone: [facility] 08-20-2024 11:03-0400 Body weight 90.[address] Kelvin Han MD Work Phone: [facility] 08-19-2024 03:18-0400 Body mass index (BMI) [Ratio] 29.6 kg/m2 Dr. Kelvin Han MD Work Phone: 3(431)860-572146 [place] [address] 08-15-2024 14:00-0400 Inhaled oxygen flow rate 1 L/min Dr. Kelvin Han MD Work Phone: 2(943)302-600174 [place] [address] 08-14-2024 23:28-0400 Body temperature 99.6 [degF] Dr. Kelvin Han MD Work Phone: 6(765)039-386274 [place] [address] 08-14-2024 23:28-0400 Diastolic blood pressure 55 mm[Hg] Dr. Kelvin Han MD Work Phone: 9(382)730-198974 [place] [address] 08-14-2024 23:28-0400 Heart rate 107 /min Dr. Kelvin Han MD Work Phone: 5(894)782-294974 [place] [address] 08-14-2024 23:28-0400 Respiratory rate 25 /min Dr. Kelvin Han MD Work Phone: 0(440)258-757574 [place] [address] 08-14-2024 23:28-0400 SaO2% (BldA) [Mass fraction] 99 % Dr. Kelvin Han MD Work Phone: 5(643)808-691146 [place] [address] 08-14-2024 23:28-0400 Systolic blood pressure 96 mm[Hg] Dr. Kelvin Han MD Work Phone: 2(271)666-672746 [place] [address] 08-14-2024 23:00-0400 Inhaled oxygen flow rate 2 L/min Dr. Kelvin Han MD Work Phone: 9(016)580-966374 [place] [address] 08-14-2024 21:45-0400 Body mass index (BMI) [Ratio] 29.5 kg/m2 Dr. Kelvin Han MD Work Phone: 9(567)155-331346 [place] [address] 08-14-2024 21:45-0400 Body weight 90.[address] Kelvin Han MD Work Phone: [facility] 08-14-2024 19:22-0400 Body height 175.[address] Kelvin Han MD Work Phone: [facility] 06-08-2024 06:22-0500 Body temperature 98 [degF] Dr. Kelvin Han MD Work Phone: 0(840)323-358546 [place] [address] 06-08-2024 06:22-0500 Diastolic blood pressure 67 mm[Hg] Dr. Kelvin Han MD Work Phone: 2(066)717-717546 [place] [address] 06-08-2024 06:22-0500 Heart rate 87 /min Dr. Kelvin Han MD Work Phone: 5(818)845-326946 [place] [address] 06-08-2024 06:22-0500 Respiratory rate 18 /min Dr. Kelvin Han MD Work Phone: [facility] 06-08-2024 06:22-0500 SaO2% (BldA) [Mass fraction] 99 % Dr. Kelvin Han MD Work Phone: [facility] 06-08-2024 06:22-0500 Systolic blood pressure 122 mm[Hg] Dr. Kelvin Han MD Work Phone: [facility] 06-08-2024 06:05-0500 Body mass index (BMI) [Ratio] 29 kg/m2 Dr. Kelvin Han MD Work Phone: [facility] 06-08-2024 06:05-0500 Body weight 89.[address] Kelvin Han MD Work Phone: [facility] 03-02-2024 09:30-0400 Body height 175.3 cm [facility] 7 Work Phone: [facility] 03-02-2024 09:30-0400 Body mass index (BMI) [Ratio] 27.84 kg/m2 [facility] 7 Work Phone: [facility] 03-02-2024 09:30-0400 Body temperature 97 [degF] [facility] 7 Work Phone: [facility] 03-02-2024 09:30-0400 Body weight 85.5 kg [facility] 7 Work Phone: [facility] 03-02-2024 09:30-0400 Diastolic blood pressure 61 mm[Hg] [facility] 7 Work Phone: [facility] 03-02-2024 09:30-0400 Heart rate 96 /min [facility] Work Phone: [facility] 03-02-2024 09:30-0400 Respiratory rate 22 /min [facility] Work Phone: [facility] 03-02-2024 09:30-0400 SaO2% (BldA) [Mass fraction] 99 % [facility] 7 Work Phone: [facility] 03-02-2024 09:30-0400 Systolic blood pressure 119 mm[Hg] [facility] 7 Work Phone: [facility] 12-16-2023 08:07-0400 Body mass index (BMI) [Ratio] 26.7 kg/m2 Matt Garcia MD Work Phone: [facility] 12-16-2023 08:07-0400 Body weight 84.4 kg Matt Garcia MD Work Phone: [facility] 12-16-2023 08:07-0400 Diastolic blood pressure 75 mm[Hg] aMtt Garcia MD Work Phone: [facility] 12-16-2023 08:07-0400 Heart rate 100 /min Matt Garcia MD Work Phone: [facility] 12-16-2023 08:07-0400 Systolic blood pressure 121 mm[Hg] Matt Garcia MD Work Phone: [facility] 10-15-2023 06:17-0400 Body temperature 98.1 [degF] [facility] 10-15-2023 06:17-0400 Diastolic blood pressure 68 mm[Hg] [facility] 10-15-2023 06:17-0400 Heart rate 79 /min [facility] 10-15-2023 06:17-0400 Respiratory rate 16 /min [facility] 10-15-2023 06:17-0400 SaO2% (BldA) [Mass fraction] 99 % [facility] 10-15-2023 06:17-0400 Systolic blood pressure 112 mm[Hg] [facility] 10-15-2023 03:27-0400 Body height 175.26 cm [facility] 10-15-2023 03:27-0400 Body mass index (BMI) [Ratio] 28 kg/m2 [facility] 10-15-2023 03:27-0400 Body weight 86.3 kg [facility] 03-01-2023 20:10-0400 Respiratory rate 18 /min [facility] 03-01-2023 18:00-0400 Heart rate 86 /min [facility] 03-01-2023 18:00-0400 SaO2% (BldA) [Mass fraction] 97 % [facility] 03-01-2023 14:34-0400 Body height 175.26 cm [facility] 03-01-2023 14:34-0400 Body mass index (BMI) [Ratio] 29 kg/m2 [facility] 03-01-2023 14:34-0400 Body temperature 97 [degF] [facility] 03-01-2023 14:34-0400 Body weight 89.2 kg [facility] 03-01-2023 14:34-0400 Diastolic blood pressure 66 mm[Hg] [facility] 03-01-2023 14:34-0400 Systolic blood pressure 112 mm[Hg] [facility] 02-21-2023 09:46-0400 Body temperature 98.2 [degF] [facility] 02-21-2023 09:46-0400 Diastolic blood pressure 78 mm[Hg] [facility] 02-21-2023 09:46-0400 Heart rate 85 /min [facility] 02-21-2023 09:46-0400 Respiratory rate 16 /min [facility] 02-21-2023 09:46-0400 SaO2% (BldA) [Mass fraction] 96 % [facility] 02-21-2023 09:46-0400 Systolic blood pressure 134 mm[Hg] [facility] 02-20-2023 11:56-0400 Body height 175.26 cm [facility] 02-20-2023 11:56-0400 Body weight 94.8 kg [facility] 02-20-2023 02:24-0400 Body mass index (BMI) [Ratio] 30.8 kg/m2 [facility] 02-17-2023 15:00-0400 Body temperature 98.8 [degF] [facility] 02-17-2023 15:00-0400 Diastolic blood pressure 73 mm[Hg] [facility] 02-17-2023 15:00-0400 Heart rate 99 /min [facility] 02-17-2023 15:00-0400 Respiratory rate 18 /min [facility] 02-17-2023 15:00-0400 SaO2% (BldA) [Mass fraction] 97 % [facility] 02-17-2023 15:00-0400 Systolic blood pressure 129 mm[Hg] [facility] 02-14-2023 18:28-0400 Body height 177.8 cm [facility] 02-14-2023 18:28-0400 Body mass index (BMI) [Ratio] 29.8 kg/m2 [facility] 02-14-2023 18:28-0400 Body weight 94.4 kg [facility] 02-14-2023 14:38-0400 Body temperature 98 [degF] [facility] 02-14-2023 14:38-0400 Diastolic blood pressure 68 mm[Hg] [facility] 02-14-2023 14:38-0400 Heart rate 70 /min [facility] 02-14-2023 14:38-0400 Respiratory rate 18 /min [facility] 02-14-2023 14:38-0400 Systolic blood pressure 144 mm[Hg] [facility] 02-14-2023 13:40-0400 Body height 177.8 cm [facility] 02-14-2023 13:40-0400 Body mass index (BMI) [Ratio] 29.8 kg/m2 [facility] 02-14-2023 13:40-0400 Body weight 94.4 kg [facility] 02-14-2023 13:19-0400 SaO2% (BldA) [Mass fraction] 99 % [facility] 02-07-2023 11:05-0400 Body height 177.8 cm [facility] 02-07-2023 11:05-0400 Body mass index (BMI) [Ratio] 27.9 kg/m2 [facility] 02-07-2023 11:05-0400 Body temperature 97.3 [degF] [facility] 02-07-2023 11:05-0400 Body weight 88.45 kg [facility] 02-07-2023 11:05-0400 Diastolic blood pressure 93 mm[Hg] [facility] 02-07-2023 11:05-0400 Heart rate 126 /min [facility] 02-07-2023 11:05-0400 Respiratory rate 14 /min [facility] 02-07-2023 11:05-0400 SaO2% (BldA) [Mass fraction] 98 % [facility] 02-07-2023 11:05-0400 Systolic blood pressure 156 mm[Hg] [facility] 02-02-2023 13:01-0400 Diastolic blood pressure 76 mm[Hg] [facility] 02-02-2023 13:01-0400 Heart rate 75 /min [facility] 02-02-2023 13:01-0400 Respiratory rate 18 /min [facility] 02-02-2023 13:01-0400 SaO2% (BldA) [Mass fraction] 95 % [facility] 02-02-2023 13:01-0400 Systolic blood pressure 120 mm[Hg] [facility] 02-02-2023 11:43-0400 Body height 177.8 cm [facility] 02-02-2023 11:43-0400 Body mass index (BMI) [Ratio] 27.8 kg/m2 [facility] 02-02-2023 11:43-0400 Body temperature 97.5 [degF] [facility] 02-02-2023 11:43-0400 Body weight 87.99 kg [facility] Encounters Encounter Date Encounter Type Care Provider Facility Start: 02-24-2025 End: 02-24-2025 Emergency department patient visit Kelvin Han Facility:[facility] Start: 01-07-2025 End: 01-07-2025 Patient encounter procedure Maynor Calabrese [facility] Work Phone: Start: 01-07-2025 End: 01-07-[address] Kelvin Han MD Work Phone: -[facility] Start: 12-04-2024 End: 12-04-[address] Kelvin Han MD Work Phone: -[facility] Start: 12-04-2024 End: 12-04-[address] Kelvin Han MD -[facility] Work Phone: Start: 12-04-2024 End: 12-04-2024 ambulatory Kelvin Han Facility:[facility] Start: 11-18-2024 End: 11-18-2024 Emergency department patient [...] ambulatory Dr. Kelvin Han MD Work Phone: [facility] Work Phone: Start: 09-18-2024 End: 09-18-[address] Kelvin Han MD -Laboratory Work Phone: Start: 09-18-2024 End: 09-18-2024 ambulatory [facility] Facility:[facility] Start: 08-20-2024 Non-patient / Non-visit Dr. Jameel Herrera MD -[facility] Work Phone: Start: 08-19-2024 Non-patient / Non-visit Dr. Juany beaulieu MD -[facility] Work Phone: Start: 08-18-2024 Non-patient / Non-visit Dr. Juany beaulieu MD -[facility] Work Phone: Start: 08-17-2024 Non-patient / Non-visit Dr. Darryn Avery own DO -[facility] Start: 08-17-2024 Non-patient / Non-visit Dr. Juany beaulieu MD -[facility] Work Phone: Start: 08-16-2024 Non-patient / Non-visit Dr. Juany beaulieu MD -[facility] Work Phone: Start: 08-15-2024 Non-patient / Non-visit Tiffanie GAONAC -[facility] Start: 08-15-2024 Non-patient / Non-visit Dr. Darryn Avery own DO -[facility] Start: 08-14-2024 [facility] Start: 08-14-2024 End: 08-20-2024 Evaluation and management of inpatient Dr. Rajinder Acosta DO -Intensive Care Unit Work Phone: Start: 07-19-2024 End: 07-19-[address] Kelvin Han MD -Laboratory, [facility] Work Phone: Start: 07-19-2024 End: 07-19-2024 [facility]ulatory [facility] Facility:[facility] Start: 06-08-2024 End: 06-08-2024 Emergency department patient visit Reuben Kirkland DO -Emergency Department Work Phone: Start: 05-11-2024 End: 05-11-2024 Patient encounter procedure Matt Garcia MD Work Phone: Urology Comment on above: Stricture of bladder neck (Primary Dx); Prostate cancer (HCC); Radiation cystitis; ZUHAIR (stress urinary incontinence), male Start: 05-11-2024 End: 05-11-2024 ambulatory MATT GARCIA Facility:[facility] Start: 04-16-2024 ambulatory [facility] lity:[facility] Start: 04-02-2024 End: 04-02-2024 ambulatory [facility] Facility:[facility] Start: 03-28-2024 End: 03-28-2024 Telephone encounter Amalia Childers MD Work Phone: Urology Start: 03-23-2024 End: 03-23-2024 Emergency department patient visit [facility] Facility:[facility] Start: 03-22-2024 End: 04-05-2024 ambulatory [facility] Facility:[facility] Start: 03-19-2024 ambulatory Kayce Escoto POOLING OPERATOR Fa cility:[facility] Start: 03-16-2024 ambulatory [facility] Faci lity:[facility] Start: 03-15-2024 ambulatory [facility] Faci lity:[facility] Start: 03-13-2024 ambulatory [facility] Faci lity:[facility] Start: 03-12-2024 ambulatory Kayce Escoto POOLING OPERATOR Fa cility:[facility] Start: 03-02-2024 End: 03-02-2024 Nursing evaluation of patient and report Kenyetta Garcia LPN Work Phone: Urology Comment on above: Stricture of bladder neck (Primary Dx) Start: 03-02-2024 End: 03-02-2024 ambulatory [facility] Facility:[facility] Start: 03-02-2024 End: 03-02-2024 Admission to establishment [facility] Work Phone: Pre Anesthesia Start: 03-02-2024 End: 03-02-2024 Anesthesia consultation Pac [facility] Work Phone: Pre Anesthesia Comment on above: Prostate cancer (HCC ) (Primary Dx); Gross hematuria; BENIGN HYPERTENSION Start: 03-02-2024 End: 03-02-2024 ambulatory BALDWIN Aminata RAMIREZEL PASO Facility:[facility] Start: 03-01-2024 End: 03-05-2024 ambulatory [facility] Facility:[facility] Start: 02-28-2024 End: 02-28-2024 Telephone encounter Amalia Shah RN Work Phone: Urology Comment on above: Returning Patient's Call Start: 02-28-2024 End: 02-28-2024 ambulatory Matt Garcia MD Work Phone: Urology Start: 02-27-2024 ambulatory Cameron Motley Facility:[facility] Start: 02-24-2024 End: 02-24-2024 Patient encounter procedure Matt Garcia MD Work Phone: Urology Comment on above: Radiation cystitis ( Primary Dx); Prostate cancer (HCC); 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; ZUHAIR (stress urinary incontinence), male Start: 02-24-2024 End: 02-24-2024 ambulatory MATT GARCIA Facility:[facility] Start: 12-23-2023 End: 12-23-2023 Patient encounter procedure Matt Garcia MD Work Phone: Urology Comment on above: Radiation cystitis ( Primary Dx); Prostate cancer (HCC); 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; ZUHAIR (stress urinary incontinence), male Start: 12-23-2023 End: 12-23-2023 ambulatory MATT GARCIA Facility:[facility] Start: 12-16-2023 End: 12-16-2023 ambulatory Matt Garcia MD Work Phone: Urology Start: 12-16-2023 End: 12-16-2023 Patient encounter procedure Matt Garcia MD Work Phone: Urology Comment on above: Radiation cystitis ( Primary Dx); Prostate cancer (HCC); 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; ZUHAIR (stress urinary incontinence), male Start: 10-15-2023 End: 10-15-2023 Emergency department patient visit [facility] Work Phone: Start: 06-27-2023 End: 06-27-2023 ambulatory [facility] Work Phone: Start: 06-27-2023 End: 06-27-2023 [facility] Start: 04-04-2023 End: 04-04-2023 ambulatory [facility] Work Phone: Start: 04-04-2023 End: 04-04-2023 [facility] Start: 03-01-2023 End: 03-01-2023 Emergency department patient visit [facility] Work Phone: Start: 03-01-2023 End: 03-01-2023 [facility] Start: 02-20-2023 End: 02-21-2023 Evaluation and management of inpatient [facility] Work Phone: Start: 02-18-2023 Telephone encounter Eduardo Han MD Work Phone: NOC Comment on above: Follow Up Phone Call (Post discharge phone call attempt made. No answer/ ) Start: 02-14-2023 End: 02-17-2023 Evaluation and management of inpatient [facility] Work Phone: Start: 02-14-2023 Evaluation and manag ement of inpatient [facility] Work Phone: Start: 02-14-2023 observation encounter [facility] Work Phone: Start: 02-07-2023 Emergency department patient visit KELVIN HAN [facility] Start: 02-07-2023 End: 02-07-2023 [facility] Work [facility]: Start: 02-02-2023 End: 02-02-2023 Emergency department patient visit [facility] Work Phone: Start: 01-03-2023 End: 01-03-2023 ambulatory [facility] Work Phone: Start: 01-03-2023 End: 01-03-2023 [facility] Start: 12-03-2022 End: 12-03-2022 ambulatory [facility] Work Phone: Start: 12-03-2022 End: 12-03-2022 [facility] Start: 07-05-2022 End: 07-05-2022 ambulatory [facility] Work Phone: Start: 07-05-2022 End: 07-05-2022 [facility] Start: 12-28-2021 End: 12-28-2021 [facility] Procedures Date Procedure Procedure Detail Performing Clinician [...] reported as: Test not performed Start: 09-18-[address] 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 Ab previously reported as: Test not performed [...] dip stick/tabl et rgnt auto w/o microscopy aMtt Garcia MD Work Phone: Start: 03-01-2023 CT [...] P,Tdap,Td Vaccine (4 - Td or Tdap) [facility] Start: 03-02-2027 Diabetes Screening Diabetes Screenin g [facility] Start: 02-12-2026 Diabetes Screening Diabetes Screenin g [facility] Start: 11-20-2025 Colonoscopy Colonoscopy [facility] Start: 11-20-2025 Colorectal Cancer Screening Co lorectal Cancer Screening [facility] Start: 03-02-2025 BP Controlled (<130/80) BP Con trolled (<130/80) [facility] Start: 12-15-2024 BP Controlled (<130/80) BP Con trolled (<130/80) [facility] Start: 11-18-2024 [facility] Start: 11-14-2024 End: 11-14-2024 [facility] Start: 11-13-2024 Bacteria identified in Urine by Culture Urine Culture [facility] Start: 10-16-2024 [facility] Start: 08-20-2024 Incentive spirometry [facility] Start: 08-20-2024 [facility] Start: 08-20-2024 Patient discharge [facility] Start: 08-20-2024 Referral to occupati onal therapist [facility] Start: 08-20-2024 Referral to service [facility] Start: 08-19-2024 Care planning and pr oblem solving actions [facility] Start: 08-17-2024 Consultation [facility] Start: 08-16-2024 Care planning and pr oblem solving actions [facility] Start: 08-15-2024 Consultation [facility] Start: 08-15-2024 End: 08-15-2024 Following clinical pathway protocol [facility] Start: 08-15-2024 Application of inter mittent pneumatic compression device [facility] Start: 08-15-2024 Cardiac monitoring [facility] Start: 08-15-2024 Catheterization of vein [facility] Start: 08-15-2024 Notification of physician [facility] Start: 08-15-2024 Vital signs measurements [facility] Start: 08-15-2024 [facility] Start: 08-14-2024 Admission procedure [facility] Start: 08-14-2024 Hospital admission, emergency, from emergency room, medical nature [facility] Start: 08-14-2024 End: 08-15-2024 [facility] Start: 08-14-2024 Thyroid stimulating hormone measurement [facility] Start: 08-14-2024 Bacteria identified in Blood by Culture Blood Culture [facility] Start: 08-14-2024 Bacteria identified in Urine by Culture Urine Culture [facility] Start: 04-02-2024 End: 04-02-2024 Admission to same [...] EDT - 03/22/2024 11:00 AM EDT Surgery [facility] [address] [place] [address] Matt Garcia MD [address] [place] [address] CYSTOSCOPY FLEXIBLE [facility] Comment on above: CYSTOSCOPY FLEXIBLE Start: 03-22-2024 End: 03-22-2024 Cystourethroscopy CYSTOSCOPY FLEXIBLE Stricture of bladder neck 03/22/2024 9:30 AM EDT [facility] Start: 03-22-2024 Subsequent hospital visit by physician 03/22/2024 9:30 AM EDT Hospital Encounter [facility] [address] [place] [address] Matt Garcia MD [address] [place] [address] Stricture of bladder neck [N32.0] [facility] Comment on above: Stricture of bladder neck [N32.0] Start: 03-22-2024 End: 03-22-2024 Transurethral resection bladder neck INCISION BLADDER NECK Stricture of bladder neck 03/22/2024 9:30 AM EDT [facility] Start: 03-12-2024 Subsequent hospital visit by physician 03/12/2024 Hospital Encounter Admitting [address] [place] [address] Matt Garcia MD [address] [place] [address] Stricture of bladder neck [N32.0] Admitting Comment on above: Stricture of bladder neck [N32.0] Start: 03-02-2024 End: 03-02-2024 Nursing evaluation of patient and report 03/02/2024 1:00 PM EDT Nurse Visit Urology [address] [id number] Kenyetta Garcia, BURRER OPERATOR [address] [id number] PRE OP Nurse visit with Kenyetta Garcia Urology Comment on above: PRE OP Nurse visit w christo Garcia Start: 03-02-2024 End: 03-02-2024 ambulatory 03/02/2024 12:15 PM EDT Results Only [address] [address] [address] [id number] labs, urine culture [place] [address] [address] Comment on above: labs, urine culture Start: 02-28-2024 End: 03-12-2024 CBC panel - Blood by Automated count COMPLETE BLOOD COUNT Lab Routine Stricture of bladder neck Expected: 02/28/2024, Expires: 03/12/2024 [facility] Work Phone: Comment on above: Expected: 02/28/2024 , Expires: 03/12/2024 Start: 02-28-2024 End: 03-12-2024 Comprehensive metabolic 2000 panel - Serum or Plasma COMPREHENSIVE METABOLIC PANEL Lab Routine Stricture of bladder neck Expected: 02/28/2024, Expires: 03/12/2024 [facility] Comment on above: Expected: 02/28/2024 , Expires: 03/12/2024 Start: 02-28-2024 End: 03-12-2024 URINE, PRESURGICAL STERILIZATION CULTURE URINE, PRESURGICAL STERILIZATION CULTURE Microbiology Routine Stricture of bladder neck Radiation cystitis Expected: 02/28/2024, Expires: 03/12/2024 [facility] Comment on above: Expected: 02/28/2024 , Expires: 03/12/2024 Start: 02-24-2024 End: 02-24-2024 Patient encounter procedure 02/24/2024 1:00 PM EDT Office Visit Urology [address] [address] Matt Garcia MD [address] [place] [address] [facility] Comment on above: [facility] Start: 02-05-2024 Covid-19 Vaccine () Covid-19 Vaccine () [facility] Start: 02-05-2024 Covid-19 Vaccine () Covid-19 Vaccine () [facility] Start: 02-05-2024 Influenza vaccination Influenza Vacc ine (#1) [facility] Start: 12-23-2023 End: 12-23-2023 Patient encounter procedure 12/23/2023 1:00 PM EDT Office Visit Urology [address] [address] Matt Garcia MD [address] [place] [address] Cysto/ per Dr Saucedo Urology Comment on above: Cysto/ per Dr Saucedo Start: 11-27-2023 Covid-19 Vaccine () Covid-19 Vaccine () [facility] Start: 11-27-2023 Covid-19 Vaccine () Covid-19 Vaccine () [facility] Start: 10-15-2023 [facility] Start: 06-06-2023 Advance Directive Discussion Advance Directive Discussion [facility] Start: 06-06-2023 Behavioral Health Screening Be havioral Health Screening [facility] Start: 03-01-2023 [facility] Start: 02-21-2023 Referral to service [facility] Start: 02-21-2023 End: 02-21-2023 Patient discharge [facility] Start: 02-20-2023 [facility] Start: 02-20-2023 Application of inter mittent pneumatic compression device [facility] Start: 02-20-2023 Following clinical p athway protocol [facility] Start: 02-20-2023 Deep breathing and c oughing exercises [facility] Start: 02-20-2023 Incentive spirometry [facility] Start: 02-20-2023 Admission procedure [facility] Start: 02-20-2023 Assessment of risk o f venous thromboembolism [facility] Start: 02-20-2023 Irrigation of urinar y bladder [facility] Start: 02-20-2023 Measuring intake and output [facility] Start: 02-20-2023 Patient education [facility] Start: 02-20-2023 Taking patient vital signs [facility] Start: 02-20-2023 Vital signs measurements [facility] Start: 02-20-2023 End: 02-20-2023 [facility] Start: 02-20-2023 Patient referral to dietitian [facility] Start: 02-17-2023 Patient discharge [facility] Start: 02-17-2023 Urinary bladder resi dual urine study [facility] Start: 02-17-2023 Removal of urinary catheter [facility] Start: 02-15-2023 Referral to occupati onal therapist [facility] Start: 02-15-2023 End: 02-15-2023 Referral to service [facility] Start: 02-14-2023 Application of inter mittent pneumatic compression device [facility] Start: 02-14-2023 Following clinical p athway protocol [facility] Start: 02-14-2023 End: 02-14-2023 Irrigation of urinary bladder [facility] Start: 02-14-2023 Admission procedure [facility] Start: 02-14-2023 Deep breathing and c oughing exercises [facility] Start: 02-14-2023 Measuring intake and output [facility] Start: 02-14-2023 Patient education [facility] Start: 02-14-2023 Taking patient vital signs [facility] Start: 02-14-2023 Vital signs measurements [facility] Start: 02-14-2023 End: 02-14-2023 [facility] Start: 02-14-2023 Cysto,Evacuation Hem atoma Darshana (Bilateral) Cysto,Evacuation Hematoma Darshana (Bilateral) [facility] Start: 02-04-2023 Influenza vaccination Influenza Vacc ine (#1) [facility] Start: 02-02-2023 Bacteria identified in Urine by Culture Urine Culture [facility] Start: 02-02-2023 [facility] Start: 11-10-2022 RSV Vaccine (1 - 1-d ose 75+ series) RSV Vaccine (1 - 1-dose 75+ series) [facility] Start: 10-26-2022 Urine microalbumin profile DTa P,Tdap,Td Vaccine (3 - Td or Tdap) [facility] Start: 07-07-2022 Covid-19 Vaccine (6 - Moderna series) Covid-19 Vaccine (6 - Moderna series) [facility] Start: 06-06-2022 Advance Directive Discussion Advance Directive Discussion [facility] Start: 06-06-2022 Depression Assessment Depression Ass essment [facility] Start: 09-10-2020 Lipid 1996 panel - S zev or Plasma Lipid Screening [facility] Start: 12-21-2012 Shingrix Vaccine (2 of 3) Tapia grix Vaccine (2 of 3) [facility] Start: 2007 RSV Vaccine (1 - 1-d ose 60+ series) RSV Vaccine (1 - 1-dose 60+ series) [facility] Start: 11-10-1992 Cologuard (FIT-DNA) Cologuard (FIT-D NA) [facility] Start: 11-10-[address] 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 Annual PCP Team Chronic Disease Visit [facility] Start: 11-10-1965 Anxiety Screening Anxiety Screening [facility] Start: 11-10-1965 BP Controlled (<130/80) BP Con trolled (<130/80) [facility] Start: 11-10-1965 Depression Screening Depression Scre ening [facility] Start: 11-10-1965 Hepatitis C Screening Hepatitis C [facility] Start: 11-10-1965 Hepatitis C screening Hepatitis C [facility] Cystourethroscopy CYSTOSCOPY FLE XIBLE Stricture of bladder neck [facility] Folate [Moles/volume ] in Serum or Plasma [facility] Hemoglobin A1c/Hemoglobin.total in Blood [facility] Lactic acid measurement [facility] Patient Education [facility] Work Phone: Patient referral [facility] Work Phone: Transurethral resect ion bladder neck INCISION BLADDER NECK Stricture of bladder neck [facility] URINALYSIS, REFLEX MICROSCOPIC URINALYSIS, REFLEX MICROSCOPIC Lab Routine Screening for genitourinary condition Ordered: 12/16/2023 [facility] Work Phone: Comment on above: Ordered: 12/16/2023 Urine culture [facility] Urine culture [facility] Immunizations Immunization Date Immunization Notes Care Provider Sushant cardoza 08-16-2024 influenza, high dose seasonal, preservative-free Dr. Kelvin Han MD Work Phone: [facility] 02-24-2023 influenza virus vaccine, unspecified formulation Matt Garcia MD Work Phone: [facility] 03-06-2022 Covid (Moderna) [facility] 03-01-2022 Influenza High-Dose Quadrivalent [facility] 03-01-2022 influenza virus vaccine, unspecified formulation Kelvin Han MD Work Phone: [facility] 10-14-2021 Covid (Moderna) [facility] 10-04-2021 Covid (Moderna) [facility] 04-03-2021 Covid (Moderna) [facility] 03-06-2021 Influenza High-Dose Quadrivalent [facility] 08-27-2020 Covid (Moderna) [facility] 07-30-2020 Covid (Moderna) [facility] 02-15-2020 influenza, injectabl e, quadrivalent, preservative free [facility] 03-23-2019 influenza, injectabl e, quadrivalent, preservative free [facility] 03-07-2018 influenza, injectabl e, quadrivalent, preservative free [facility] 02-27-2016 Influenza, high dose seasonal Dr. Kelvin Han MD Work Phone: [facility] 02-27-2016 influenza, high dose seasonal, preservative-free Kelvin Han MD Work Phone: [facility] Work Phone: 10-08-2015 pneumococcal conjuga te vaccine, 13 valent Kelvin Han MD Work Phone: [facility] Work Phone: 03-04-2015 influenza virus vaccine, unspecified formulation Kelvin Han MD Work Phone: [facility] 03-04-2015 influenza, injectabl e, quadrivalent, preservative free [facility] 05-29-2014 influenza, injectabl e, quadrivalent, preservative free [facility] 05-29-2014 influenza, seasonal, injectable Kelvin Han MD Work Phone: [facility] 02-26-2014 pneumococcal polysaccharide vaccine, 23 valent Kelvin Han MD Work Phone: [facility] 10-26-2012 tetanus toxoid, redu chasidy diphtheria toxoid, and acellular pertussis vaccine, adsorbed Kelvin Han MD Work Phone: [facility] 10-26-2012 zoster vaccine, live Eduardo Han MD Work Phone: [facility] 06-19-2012 influenza virus vaccine, unspecified formulation Kelvin Han MD Work Phone: [facility] 06-19-2012 influenza, injectabl e, quadrivalent, preservative free [facility] 06-06-2002 diphtheria and tetan us toxoids, adsorbed for pediatric use Kelvin Han MD Work Phone: [facility] Work Phone: Payers Date Payer Category Payer Self-pay [id number] 2021 Private Health Insurance AETNA S UPPLEMENT AETNA MEDICARE SUPPLEMENT [id number] 2021-Present [phone] [address] [address] [place] [address] Indemnity [id number] 2021 Private Health Insurance CLI [id number] 2012 Medicare MEDICARE MEDICAR E A AND B [id number] 2012-Present [phone] [address] [address] [place] [address] Medicare [id number] 2012 Medicare [id number] 2012 Unknown [id number] 2012 Unknown HOSPITAL/MEDICAL GENERIC MEDICAL GENERIC [id number] 2012-Present [phone] [address] [address] [place] [address] Indemnity [id number] 2012 Medicare [id number] Unknown [id number] Unknown [id number] 2.16.840.1.642950.3.579.2. 462 Unknown [id number] 2.16.840.1.816639.3.579.2. 462 Unknown [id number] 2.16.840.1.984312.3.579.2. 462 Unknown [id number] 2.16.840.1.008893.3.579.2. 462 Unknown [id number] 2.16.840.1.714380.3.579.2. 462 Unknown [id number] 2.16.840.1.089861.3.579.2. 462 Unknown [id number] 2.16.840.1.777924.3.579.2. 462 Unknown [id number] 2.16.840.1.383327.3.579.2. 462 Unknown [id number] 2.16.840.1.311909.3.579.2. 462 Unknown [id number] 2.16.840.1.337386.3.579.2. 462 Unknown [id number] 2.16.840.1.898834.3.579.2. 462 Unknown [id number] 2.16.840.1.278112.3.579.2. 462 Unknown [id number] 2.16.840.1.765260.3.579.2. 462 Unknown [id number] 2.16.840.1.973492.3.579.2. 462 Unknown [id number] 2.16.840.1.532669.3.579.2. 462 Unknown [id number] 2.16.840.1.427854.3.579.2. 462 Unknown [id number] 2.16.840.1.339701.3.579.2. 462 Unknown [id number] 2.16.840.1.591381.3.579.2. 462 Unknown [id number] 2.16.840.1.245651.3.579.2. 462 Unknown [id number] 2.16.840.1.089847.3.579.2. 462 Unknown [id number] 2.16.840.1.755164.3.579.2. 462 Unknown [id number] 2.16.840.1.948996.3.579.2. 462 Unknown [id number] 2.16.840.1.365208.3.579.2. 462 Unknown [id number] 2.16.840.1.051061.3.579.2. 462 Unknown [id number] 2.16.840.1.172003.3.579.2. 462 Unknown [id number] 2.16.840.1.612248.3.579.2. 462 Unknown [id number] 2.16.840.1.296024.3.579.2. 462 Unknown [id number] 2.16.840.1.335311.3.579.2. 462 Unknown [id number] 2.16.840.1.347456.3.579.2. 462 Unknown [id number] 2.16.840.1.120542.3.579.2. 462 Unknown [id number] 2.16.840.1.352546.3.579.2. 462 Unknown [id number] 2.16.840.1.904236.3.579.2. 462 Unknown [id number] 2.16.840.1.495139.3.579.2. 462 Unknown [id number] 2.16.840.1.831591.3.579.2. 462 Social History Date Type Detail Facility Start: 12-08-2018 End: 10-15-2023 Tobacco smoking status DCIS Unknown if ever smoked [facility] Start: 12-08-2018 Non-smoker [facility] Start: 1945 Sex Assigned At Male [facility] Start: 07-23-2011 End: 11-18-2024 Tobacco smoking status DCIS Never smoked tobacco [facility] Start: 07-23-2011 Tobacco use and exposure Smokeless tobacco non-user [facility] Start: 02-11-2023 End: 03-02-2024 Alcohol intake Current non-drinker of alcohol (finding) [facility] Start: 02-11-2023 End: 12-23-2023 History of Social function [facility] Work Phone: Start: 02-11-2023 End: 12-23-2023 Tobacco use panel [facility] Work Phone: How hard is it for y ou to pay for the very basics like food, housing, medical care, and heating Not hard at all [facility] Work Phone: (I/We) worried wheth er (my/our) food would run out before (I/we) got money to buy more. Never true [facility] Work Phone: In the past 12 month s, was there a time when you were not able to pay the mortgage or rent on time? No [facility] Work Phone: Start: 1945 Sex Assigned At Not on file [facility] Start: 12-09-2023 Gender identity Identifies as male gender (finding) [facility] Start: 12-09-2023 Sexual orientation Heterosexual (fin ding) [facility] Start: 08-14-2024 End: 09-24-2024 Sex Male (finding) [facility] Goals Date Patient Goal Desired Activity /State Functional Status Date Assessment Result Facility 08-20-2024 Functional status Chair [facility] Work Phone: 02-21-2023 Functional status Activity Ability Indepe ndent [facility] Work Phone: 02-20-2023 Functional status Patient Activity Up ad lori [facility] Work Phone: 02-17-2023 Functional status Ambulates [facility] Work Phone: Mental Status Date Assessment Result Facility 08-20-2024 Cognitive function Voice/Name [facility] Work Phone: 03-01-2023 Cognitive function Level Of Cons ciousness Awake;Alert;Appropriate;Follow s Commands [facility] Work Phone: 02-21-2023 Cognitive function Voice/Name [facility] Work Phone: 02-17-2023 Cognitive function Voice/Name [facility] Work Phone: Clinical Notes 07-06-2011 to 08-20-2024 Note Date & Type Note Facility 08-20-2024 Consult note [facility] 08-20-2024 Progress note [facility] 08-20-2024 Discharge summary Note Date/Time August 20, 2024 2:03pm [facility] Medical Records Department [address] [place] [address] Discharge Summary 08/20/24 1228 MR#: [id number] Acct: [id number] Name: BARBARA MILAN MONI Rep #:[id number] : 1945 78 From: Jameel Gipson PCP: Dr. Kelvin Han MD Status :ADM IN Location: [place] [address] Providers Date of Admission: 08/14/24 Date of Discharge: 08/20/24 Primary Care Physician: Dr. Kelvin Han MD Consultations 08/15/24 00:05 Consult: Grooming Assistant / Pulmonary Medicine Routine Consulting Provider: Intensivists/Pulmonary [...] ordered -Patient presently admitted in the ICU, early childhood education instructor consulted -08/16: Urine culture and sensitivity data [...] 08/20 urine culture and sensitivity reviewed. [facility], Myroides and Enterococcus # Creatinine elevation [...] panel and C. difficile negative. Advised probiotic wyxl-hwi-mgmlvcp for 1 week Chronic medical problems: # [...] PO 2XD Qty: 0 0RF Rx Instructions: Eupd-tvl-wnabujw for 1 week. levofloxacin 500 mg tablet [...] Kelvin Han MD [Primary Care Provider] - ([facility] called the office and they were closed [...] Health Service Charges/Coding Visit Charges Inpatient E&M: 61756 Disch Hosp >30min 08/20/24 1403 <Electronically signed by Jameel Herrera MD> Cosigner Signature (if applicable): CC: Dr. Kelvin Han MD; Dr. Zhao Gilliland MD; Dr. Jameel Herrera MD~ Signed [facility] Work Phone: 1(333) 896-201903-17-2025 Discharge summary Author Jameel Herrera [facility] Note Date/Time August 20, 2024 12: 27pm [facility] Medical Records Department [address] [place] [address] Instructions for Home/Discharge Instructions 08/20/24 1013 MR#: [id number] Acct: [id number] Name: BARBARA MILANN Rep #:[id number] : [...] PO 2XD Qty: 0 0RF Rx Instructions: Tqhx-qyo-duilwpg for 1 week. levofloxacin 500 mg tablet [...] Kelvin Han MD [Primary Care Provider] - ([facility] called the office and they were closed [...] MD; Dr. Cameron Giron MD ~ Signed [facility] Work Phone: 1(810) 153-913103-17-2025 Discharge summary [facility] Medical Records Department [address] [place] [address] Discharge Summary 08/20/24 1228 MR#: [id number] Acct: [id number] Name: BARBARA MILAN Rep #:[id number] : 1945 78 From: Jameel Gipson PCP: Dr. Kelvin Han MD Status :ADM IN Location: [place] [address] Providers Date of Admission: 08/14/24 Date of Discharge: 08/20/24 Primary Care Physician: Dr. Kelvin Han MD Consultations 08/15/24 00:05 Consult: Grooming Assistant / Pulmonary Medicine Routine Consulting Provider: Intensivists/Pulmonary [...] ordered -Patient presently admitted in the ICU, early childhood education instructor consulted -08/16: Urine culture and sensitivity data [...] 08/20 urine culture and sensitivity reviewed. [facility], Myroides and Enterococcus # Creatinine elevation [...] panel and C. difficile negative. Advised probiotic hzyi-dcg-rnebkje for 1 week Chronic medical problems: # [...] PO 2XD Qty: 0 0RF Rx Instructions: Mijm-rrx-haztnui for 1 week. levofloxacin 500 mg tablet [...] Kelvin Han MD [Primary Care Provider] - ([facility] called the office and they were closed [...] Health Service Charges/Coding Visit Charges Inpatient E&M: 38086 Disch Hosp >30min 08/20/24 1403 Cosigner Signature (if applicable): CC: Dr. Kelvin Han MD; Dr. Zhao Gilliland MD; Dr. Jameel Herrera MD~ Signed [facility]03-17-2025 [facility] Discharge summary [facility] Medical Records Department [address] [place] [address] Instructions for Home/Discharge Instructions 08/20/24 1013 MR#: [id number] Acct: [id number] Name: BARBARA MILAN MONI Rep #:[id number] [...] PO 2XD Qty: 0 0RF Rx Instructions: Ckpc-kzc-qudjtqn for 1 week. levofloxacin 500 mg tablet [...] Kelvin Han MD [Primary Care Provider] - ([facility] called the office and they were closed [...] MD; Dr. Cameron Giron MD ~ Signed [facility]03-16-2025 Progress note Author Juany Souza [facility] Note Date/Time August 19, 2024 3:3 1pm [facility] Medical Records Department [address] [place] [address] Progress Note - Hospitalist 08/19/2403 MR#: [id number] Acct: [id number] Name: BARBARA MILANN Rep #:[id number] : 1945 78 From: Juany Souza MD PCP: Dr. Kelvin Han MD Status :ADM IN Location: [place] [address] Reason for Visit Reason for Visit: Diagnoses [...] ordered -Patient presently admitted in the ICU, early childhood education instructor consulted -08/16: Urine culture and sensitivity data [...] post prostate removal and radiation therapy through [facility] with subsequent bladder neck contracture and ultimately suprapubic catheter -PSA undetectable #DVT ppx: SCDs Juany Souza MD Time spent in the patient's overall evaluation,decision-making process, review of diagnostic data, adjustment of management, discussion with other providers, nursing nursing and ancillary staff involved in patient's care documentation, 36minutes Charges/Coding Visit Charges Inpatient E&M: 83624 Subs Hosp L2 08/19/24 1531 <Electronically signed by Juany Souza MD> Cosigner Signature (if applicable): CC: ~ Signed [facility] Work Phone: 1(741) 557-679803-16-2025 Progress note [facility] Medical Records Department [address] [place] [address] Progress Note - Hospitalist 08/19/24 0903 MR#: [id number] Acct: [id number] Name: KAYLIBARBARA MONI Rep #:[id number] : 1945 78 From: Juany Souza MD PCP: Dr. Kelvin Han MD Status :ADM IN Location: [place] [address] Reason for Visit Reason for Visit: Diagnoses [...] ordered -Patient presently admitted in the ICU, early childhood education instructor consulted -08/16: Urine culture and sensitivity data [...] post prostate removal and radiation therapy through [facility] with subsequent bladder neck contracture and ultimately suprapubic catheter -PSA undetectable #DVT ppx: SCDs Juany Souza MD Time spent in the patient's overall evaluation,decision-making process, review of diagnostic data, adjustment of management, discussion with other providers, nursing nursing and ancillary staff involved in patient's care documentation, 36minutes Charges/Coding Visit Charges Inpatient E&M: 93369 Subs Hosp L2 08/19/24 1531 Cosigner Signature (if applicable): CC: ~ Signed [facility]03-15-2025 Progress note Author Juany Souza [facility] Note Date/Time August 18, 2024 12: 22pm [facility] Medical Records Department [address] [place] [address] Progress Note - Hospitalist 08/18/24 0722 MR#: [id number] Acct: [id number] Name: BARBARA MILAN MONI Rep #:[id number] : 1945 78 From: Juany Souza MD PCP: Dr. Kelvin Han MD Status :ADM IN Location: [place] [address]- 1 Reason for Visit Reason for Visit: [...] 79.9 H, Lymph % (Auto) 8.2 L, Alfalfa % (Auto) 7.1, Eos % (Auto) 3.4, [...] ordered -Patient presently admitted in the ICU, early childhood education instructor consulted -08/16: Urine culture and sensitivity data [...] post prostate removal and radiation therapy through [facility] with subsequent bladder neck contracture and ultimately suprapubic catheter -PSA undetectable #DVT ppx: SCDedgar Souza MD Time spent in the patient's overall evaluation,decision-making process, review of diagnostic data, adjustment of management, discussion with other providers, nursing nursing and ancillary staff involved in patient's care documentation, 36minutes Charges/Coding Visit Charges Inpatient E&M: 07245 Subs Hosp L2 08/18/24 1222 <Electronically signed by Juany Souza MD> Cosigner Signature (if applicable): CC: ~ Signed [facility] Work Phone: 1(394) 149-939003-15-2025 Progress note [facility] Medical Records Department [address] [place] [address] Progress Note - Hospitalist 08/18/24 0722 MR#: [id number] Acct: [id number] Name: BARBARA MILAN MONI Rep #:[id number] : 1945 78 From: Juany Souza MD PCP: Dr. Kelvin aHn MD Status :ADM IN Location: [place] [address] Reason for Visit Reason for Visit: Diagnoses [...] 79.9 H, Lymph % (Auto) 8.2 L, Alfalfa % (Auto) 7.1, Eos % (Auto) 3.4, [...] ordered -Patient presently admitted in the ICU, early childhood education instructor consulted -08/16: Urine culture and sensitivity data [...] post prostate removal and radiation therapy through [facility] with subsequent bladder neck contracture and ultimately suprapubic catheter -PSA undetectable #DVT ppx: SCDs Juany Souza MD Time spent in the patient's overall evaluation,decision-making process, review of diagnostic data, adjustment of management, discussion with other providers, nursing nursing and ancillary staff involved in patient's care documentation, 36minutes Charges/Coding Visit Charges Inpatient E&M: 56308 Subs Hosp L2 08/18/24 1222 Cosigner Signature (if applicable): CC: ~ Signed [facility]03-15-2025 Discharge summary Author Kishore Nicolas [facility] Note Date/Time August 17, 2024 11: 56pm [facility] Medical Records Department [address] [place] [address] Emergency Department Summary 08/14/24 MR#: [id number] Acct: [id number] Name: BARBARA MILAN MONI Rep #:[id number] [...] 76.8 H Lymph % (Auto) 15.5 L Alfalfa % (Auto) 0.5 Eos % (Auto) 5.7 [...] Color Urine Clarity Urine pH Ur Specific [place] Urine Protein Urine Glucose (UA) Urine Ketones Urine Occult Blood Urine Nitrite Urine Bilirubin Urine Urobilinogen Ur Leukocyte Esterase Urine RBC Urine WBC Ur Squamous Epith Cells Amorphous Sediment Urine Bacteria Urine Mucus 08/14/24 22:06 WBC RBC Hgb Hct MCV MCH MCHC RDW Std Deviation RDW Coeff of Jerry Plt Count MPV Immature Gran % (Auto) Neut % (Auto) Lymph % (Auto) Alfalfa % (Auto) Eos % (Auto) Baso % [...] Clarity Cloudy Urine pH 8.0 Ur Specific [place] 1.010 Urine Protein 100 H Urine Glucose [...] use of iterative reconstruction technique). Reading Location: [facility] Chest X-Ray 08/14/24 21:29 IMPRESSION: No focal airspace abnormality. Reading Location: [facility] EKG Initial EKG: Interpretation: Sinus Tachycardia [...] 76.8 H Lymph % (Auto) 15.5 L Alfalfa % (Auto) 0.5 Eos % (Auto) 5.7 [...] Color Urine Clarity Urine pH Ur Specific [place] Urine Protein Urine Glucose (UA) Urine Ketones Urine Occult Blood Urine Nitrite Urine Bilirubin Urine Urobilinogen Ur Leukocyte Esterase Urine RBC Urine WBC Ur Squamous Epith Cells Amorphous Sediment Urine Bacteria Urine Mucus 08/14/24 22:06 WBC RBC Hgb Hct MCV MCH MCHC RDW Std Deviation RDW Coeff of Jerry Plt Count MPV Immature Gran % (Auto) Neut % (Auto) Lymph % (Auto) Alfalfa % (Auto) Eos % (Auto) Baso % [...] Clarity Cloudy Urine pH 8.0 Ur Specific [place] 1.010 Urine Protein 100 H Urine Glucose [...] airspace abnormality. Reading Location: NO <Dr. Kishore iNcolas MD - Last Filed: 08/17/24 23:56> Critical Care Time Critical Care Time: Yes Critical care time (excluding procedures): 30-74 minutes, Including time spent:,Discussing w/Patient &/or Family/Gluer, Discussing w/Consultants, ArrangingAdmission or Transfer, Performing Direct Patient Care at Bedside and - (40 minutes) Discharge Plan Dx/Rx/DC Orders Clinical Impression: Acute abdominal pain in right flank, History of prostate cancer, Sepsis, Acute hypotension, Acute UTI Disposition Disposition: Acute Care Hospital [facility] Discharge Date/Time: 08/14/24 23:50 What to do if you have Problems For any increased pain, shortness of breath, bleeding, nausea or vomiting, chestpain, or any unexpected problems, contact your Primary Care Provider. Call [facility] ([phone]) or report to the closest Emergency Room. Call 911 if necessary. 08/17/24 2356 <Electronically signed by Kishore Nicolas MD> Cosigner Signature (if applicable): 08/14/24 2325 <Electronically signed by Reuben Kirkland DO> CC: Dr. Kelvin Han MD ~ Signed [facility] Work Phone: 1(555) 719-236603-14-2025 Discharge summary [facility] Medical Records Department [address] [place] [address] Emergency Department Summary 08/14/24 MR#: [id number] Acct: [id number] Name: KAYLIBARBARA SANTAMARIA MONI Rep #:[id number] [...] 76.8 H Lymph % (Auto) 15.5 L Alfalfa % (Auto) 0.5 Eos % (Auto) 5.7 [...] Color Urine Clarity Urine pH Ur Specific [place] Urine Protein Urine Glucose (UA) Urine Ketones Urine Occult Blood Urine Nitrite Urine Bilirubin Urine Urobilinogen Ur Leukocyte Esterase Urine RBC Urine WBC Ur Squamous Epith Cells Amorphous Sediment Urine Bacteria Urine Mucus 08/14/24 22:06 WBC RBC Hgb Hct MCV MCH MCHC RDW Std Deviation RDW Coeff of Jerry Plt Count MPV Immature Gran % (Auto) Neut % (Auto) Lymph % (Auto) Alfalfa % (Auto) Eos % (Auto) Baso % [...] Clarity Cloudy Urine pH 8.0 Ur Specific [place] 1.010 Urine Protein 100 H Urine Glucose [...] use of iterative reconstruction technique). Reading Location: [facility] Chest X-Ray 08/14/24 21:29 IMPRESSION: No focal airspace abnormality. Reading Location: [facility] EKG Initial EKG: Interpretation: Sinus Tachycardia [...] 76.8 H Lymph % (Auto) 15.5 L Alfalfa % (Auto) 0.5 Eos % (Auto) 5.7 [...] Color Urine Clarity Urine pH Ur Specific [place] Urine Protein Urine Glucose (UA) Urine Ketones Urine Occult Blood Urine Nitrite Urine Bilirubin Urine Urobilinogen Ur Leukocyte Esterase Urine RBC Urine WBC Ur Squamous Epith Cells Amorphous Sediment Urine Bacteria Urine Mucus 08/14/24 22:06 WBC RBC Hgb Hct MCV MCH MCHC RDW Std Deviation RDW Coeff of Jerry Plt Count MPV Immature Gran % (Auto) Neut % (Auto) Lymph % (Auto) Alfalfa % (Auto) Eos % (Auto) Baso % [...] Clarity Cloudy Urine pH 8.0 Ur Specific [place] 1.010 Urine Protein 100 H Urine Glucose [...] use of iterative reconstruction technique). Reading Location: [facility] Chest X-Ray 08/14/24 21:29 IMPRESSION: No focal airspace abnormality. Reading Location: [facility] Critical Care Time Critical Care Time: Yes Critical care time (excluding procedures): 30-74 minutes, Including time spent:,Discussing w/Patient &/or Family/Gluer, Discussing w/Consultants, ArrangingAdmission or Transfer, Performing Direct Patient Care at Bedside and - (40 minutes) Discharge Plan Dx/Rx/DC Orders Clinical Impression: Acute abdominal pain in right flank, History of prostate cancer, Sepsis, Acute hypotension, Acute UTI Disposition Disposition: Acute Care Hospital [facility] Discharge Date/Time: 08/14/24 23:50 What to do if you have Problems For any increased pain, shortness of breath, bleeding, nausea or vomiting, chestpain, or any unexpected problems, contact your Primary Care Provider. Call [facility] ([phone]) or report tothe closest Emergency Room. Call 911 if necessary. 08/17/24 0249 Cosigner Signature (if applicable): 08/14/24 8299 CC: Dr. Kelvin Han MD ~ Signed [facility]03-14-2025 Consult note Author Cameron Giron [facility] Note Date/Time August 17, 2024 1:4 2pm [facility] Medical Records Department [address] [place] [address] Consultation - Infectious Dx 08/17/24 1339 MR#: [id number] Acct: [id number] Name: BARBARA MILAN Rep #:[id number] : [...] performed and neg except as noted above. [facility] Medical History Hearing loss, left Hearing loss, [...] 84.0 H, Lymph % (Auto) 4.4 L, Alfalfa % (Auto) 5.8, Eos % (Auto) 3.9, [...] applicable): CC: Dr. Kelvin Han MD~ Signed [facility] Work Phone: 1(697) 924-298003-14-2025 Consult note [facility] Medical Records Department [address] [place] [address] Consultation - Infectious Dx 08/17/24 1339 MR#: [id number] Acct: [id number] Name: BARBARA MILAN MONI Rep #:[id number] [...] performed and neg except as noted above. [facility] Medical History Hearing loss, left Hearing loss, [...] 84.0 H, Lymph % (Auto) 4.4 L, Alfalfa % (Auto) 5.8, Eos % (Auto) 3.9, [...] applicable): CC: Dr. Kelvin Han MD~ Signed [facility]03-14-2025 Progress note Author Juany Souza [facility] Note Date/Time August 17, 2024 11: 01[facility] Medical Records Department [address] [place] [address] Progress Note - Hospitalist 08/17/24 0701 MR#: [id number] Acct: [id number] Name: KAYLIBARBARARAYRAY MONTENEGRO Rep #:[id number] : [...] 84.0 H, Lymph % (Auto) 4.4 L, Alfalfa % (Auto) 5.8, Eos % (Auto) 3.9, [...] ordered -Patient presently admitted in the ICU, early childhood education instructor consulted -08/16: Urine culture and sensitivity data [...] with urology on outpatient basis forhis chronic Wrothy but no acute intervention planned #Hypertension -Patient [...] post prostate removal and radiation therapy through [facility] with subsequent bladder neck contracture and ultimately suprapubic catheter -PSA undetectable #DVT ppx: SCDs Juany Souza MD Charges/Coding Visit Charges Inpatient E&M: 93104 Subs Hosp L2 08/17/24 1101 <Electronically signed by Juany Souza MD> Cosigner Signature (if applicable): CC: ~ Signed [facility] Work Phone: 1(164) 192-557103-14-2025 Progress note [facility] Medical Records Department [address] [place] [address] Progress Note - Hospitalist 08/17/24 0701 MR#: [id number] Acct: [id number] Name: BARBARA MILAN MONI Rep #:[id number] [...] 84.0 H, Lymph % (Auto) 4.4 L, Alfalfa % (Auto) 5.8, Eos % (Auto) 3.9, [...] ordered -Patient presently admitted in the ICU, early childhood education instructor consulted -08/16: Urine culture and sensitivity data [...] post prostate removal and radiation therapy through [facility] with subsequent bladder neck contracture and ultimately suprapubic catheter -PSA undetectable #DVT ppx: SCDs Juany Souza MD Charges/Coding Visit Charges Inpatient E&M: 66192 Subs Hosp L2 08/17/24 1101 Cosigner Signature (if applicable): CC: ~ Signed [facility]03-14-2025 Progress note Author Darryn Underwood [facility] Note Date/Time August 17, 2024 8:4 6am [facility] Medical Records Department [address] [place] [address] Progress Note - Grooming Assistant 08/17/24 0808 MR#: [id number] Acct: [id number] Name: BARBARA MILAN MONI Rep #:[id number] [...] for now. This note was generated with [employer] dictation software. It may contain incorrectwords, spelling, [...] 84.0 H, Lymph % (Auto) 4.4 L, Alfalfa % (Auto) 5.8, Eos % (Auto) 3.9, [...] affect normal Charges/Coding Visit Charges Inpatient E&M: 97145 Subs Hosp L2 08/17/24 0846 <Electronically signed by Darryn Underwood DO> Cosigner Signature (if applicable): CC: ~ Signed [facility] Work Phone: 1(984) 589-324403-14-2025 Progress note [facility] Medical Records Department [address] [place] [address] Progress Note - Grooming Assistant 08/17/24 0808 MR#: [id number] Acct: [id number] Name: KAYLIBARBARA SANTAMARIA MONI Rep #:[id number] [...] for now. This note was generated with [employer] dictation software. It may contain incorrectwords, spelling, [...] from August 14 is demonstrating growth at [facility]. Urine culture is demonstrating growth of agram-negative [...] 84.0 H, Lymph % (Auto) 4.4 L, Alfalfa % (Auto) 5.8, Eos % (Auto) 3.9, [...] affect normal Charges/Coding Visit Charges Inpatient E&M: 77729 Subs Hosp L2 08/17/24 0846 Cosigner Signature (if applicable): CC: ~ Signed [facility]03-13-2025 Progress note Author Juany Souza [facility] Note Date/Time August 16, 2024 5:1 4pm [facility] Medical Records Department [address] [facility] [place] [address] Progress Note - Hospitalist 08/16/24 0754 MR#: [id number] Acct: [id number] Name: BARBARA MILAN MONI Rep #:[id number] [...] 84.0 H, Lymph % (Auto) 3.3 L, Alfalfa % (Auto) 5.9, Eos % (Auto) 2.2, [...] ordered -Patient presently admitted in the ICU, early childhood education instructor consulted -08/16: Urine culture and sensitivity data [...] post prostate removal and radiation therapy through [facility] with subsequent bladder neck contracture and ultimately suprapubic catheter -PSA undetectable #DVT ppx: SCDs Juany Souza MD Charges/Coding Visit Charges Inpatient E&M: 15968 Subs Hosp L2 08/16/24 1714 <Electronically signed by Juany Souza MD> Cosigner Signature (if applicable): CC: ~ Signed [facility] Work Phone: 1(602) 928-826403-13-2025 Progress note [facility] Medical Records Department [address] [place] [address] Progress Note - Hospitalist 08/16/24 0754 MR#: [id number] Acct: [id number] Name: KAYLIBARBARA MONI Rep #:[id number] : [...] 84.0 H, Lymph % (Auto) 3.3 L, Alfalfa % (Auto) 5.9, Eos % (Auto) 2.2, [...] ordered -Patient presently admitted in the ICU, early childhood education instructor consulted -08/16: Urine culture and sensitivity data [...] post prostate removal and radiation therapy through [facility] with subsequent bladder neck contracture and ultimately suprapubic catheter -PSA undetectable #DVT ppx: SCDs Juany Souza MD Charges/Coding Visit Charges Inpatient E&M: 83686 Subs Hosp L2 08/16/24 1714 Cosigner Signature (if applicable): CC: ~ Signed [facility]03-13-2025 Progress note Author Darryn Underwood [facility] Note Date/Time August 16, 2024 9:2 8am [facility] Medical Records Department [address] [place] [address] Progress Note - Grooming Assistant 08/16/24 0750 MR#: [id number] Acct: [id number] Name: BARBARA MILAN MONI Rep #:[id number] [...] 84.0 H, Lymph % (Auto) 3.3 L, Alfalfa % (Auto) 5.9, Eos % (Auto) 2.2, [...] affect normal Charges/Coding Visit Charges Inpatient E&M: 12333 Subs Hosp L3 08/16/24 0928 <Electronically signed by Darryn Underwood DO> Cosigner Signature (if applicable): CC: ~ Signed [facility] Work Phone: 1(475) 661-272003-13-2025 Progress note [facility] Medical Records Department [address] [place] [address] Progress Note - Grooming Assistant 08/16/24 0750 MR#: [id number] Acct: [id number] Name: BARBARA MILAN MONI Rep #:[id number] [...] for now. This note was generated with [employer] software. It may contain incorrectwords, spelling, and [...] 84.0 H, Lymph % (Auto) 3.3 L, Alfalfa % (Auto) 5.9, Eos % (Auto) 2.2, [...] affect normal Charges/Coding Visit Charges Inpatient E&M: 55903 Subs Hosp L3 08/16/24 0928 Cosigner Signature (if applicable): CC: ~ Signed [facility]03-12-2025 Progress note Author Juany Souza [facility] Note Date/Time August 15, 2024 3:0 8pm [facility] Medical Records Department [address] [place] [address] Progress Note - Hospitalist 08/15/2407 MR#: [id number] Acct: [id number] Name: BARBARA MILAN MONI Rep #:[id number] [...] 76.8 H, Lymph % (Auto) 15.5 L, Alfalfa % (Auto) 0.5, Eos % (Auto) 5.7 [...] use of iterative reconstruction technique). [facility] 08/14/24 21:29 IMPRESSION: No focal airspace abnormality. [facility] Narrative General: Alert, no apparent [...] ordered -Patient presently admitted in the ICU, early childhood education instructor consulted # Creatinine elevation from baseline in [...] post prostate removal and radiation therapy through [facility] with subsequent bladder neck contracture and ultimately suprapubic catheter -PSA undetectable #Hypertension -Patient with septic shock, hold amlodipine, lisinopril, terazosin and #DVT ppx: SCDs Juany Souza MD Charges/Coding Visit Charges Inpatient E&M: 39849 Subs Hosp L2 08/15/24 1504 <Electronically signed by Juany Souza MD> Cosigner Signature (if applicable): CC: ~ Signed [facility] Work Phone: 1(746) 148-253803-12-2025 Progress note [facility] Medical Records Department [address] [place] [address] Progress Note - Hospitalist 08/15/24 0707 MR#: [id number] Acct: [id number] Name: BARBARA MILAN Rep #:[id number] : [...] 76.8 H, Lymph % (Auto) 15.5 L, Alfalfa % (Auto) 0.5, Eos % (Auto) 5.7 [...] use of iterative reconstruction technique). Reading Location: [facility] Chest X-Ray 08/14/24 21:29 IMPRESSION: No focal airspace abnormality. Reading Location: [facility] Physical Exam Narrative General: Alert, no [...] ordered -Patient presently admitted in the ICU, early childhood education instructor consulted # Creatinine elevation from baseline in [...] post prostate removal and radiation therapy through [facility] with subsequent bladder neck contracture and ultimately suprapubic catheter -PSA undetectable #Hypertension -Patient with septic shock, hold amlodipine, lisinopril, terazosin and #DVT ppx: SCDs Juany Souza MD Charges/Coding Visit Charges Inpatient E&M: 71815 Subs Hosp L2 08/15/24 1508 Cosigner Signature (if applicable): CC: ~ Signed [facility]03-12-2025 Procedure note [facility] Medical Records Department [address] [place] [address] Operative Report 08/15/24 1428 MR#: [id number] Acct: [id number] Name: BARBARA MILAN MONI Rep #:[id number] : 1945 78 From: Tiffanie Bello PCP: Dr. Kelvin Han MD Status :ADM IN Location: ICU ICU03-1 Problems Associated Problem List Diagnoses (1) Septic shock: (2) Acute hypotension: Multi Select Codes Radiology Radiology US Procedures: 17367 Insert PICC w/o port, w/US guidance Operative Report (Standard) Operative Information Date of Procedure: 08/15/24 Pre-Operative Diagnosis: Septic shock requiring vasopressor therapy Post-Operative Diagnosis: Septic shock requiring vasopressor therapy Surgery/Procedure Performed: Double-lumen PICC insertion gas treater: No Type of Anesthesia: Local Procedure Start [...] for use. Procedure was proctored by [employer] representative. A first attempt for PICC insertionwas [...] Nieto MD; Dr. Darlene Lamb MD~ Signed [facility]03-12-2025 Consult note Author Darryn [facility] Note Date/Time August 15, 2024 9:2 4am [facility] Medical Records Department [address] [place] [address] Consultation - Grooming Assistant 08/15/24 0804 MR#: [id number] Acct: [id number] Name: KAYLIBARBARARAYRAY MONTENEGRO Rep #:[id number] : [...] medical intensive care unit for further management. [facility] Medical History Hearing loss, left Hearing loss, [...] 76.8 H, Lymph % (Auto) 15.5 L, Alfalfa % (Auto) 0.5, Eos % (Auto) 5.7 [...] 93.8 H, Lymph % (Auto) 1.8 L, Alfalfa % (Auto) 2.8, Eos % (Auto) 0.1, [...] use of iterative reconstruction technique). Reading Location: [facility] Chest X-Ray 08/14/24 21:29 IMPRESSION: No focal airspace abnormality. Reading Location: [facility] Charges/Coding Procedures Hospitalists Procedures: 65996 Critical Care 1st Hr 08/15/24 0924 <Electronically signed by Darryn Underwood DO> Cosigner Signature (if applicable): CC: Dr. Kelvin Han MD~ Signed [facility] Work Phone: 1(507) 302-744203-12-2025 Consult note Author Zhao Gilliland [facility] Note Date/Time August 15, 2024 8:4 9am [facility] Medical Records Department [address] [place] [address] [place] [address] Consultation - Urology 08/15/24 0847 MR#: [id number] Acct: [id number] Name: BARBARA MILAN MONI Rep #:[id number] [...] bladder after radical prostatectomy done at the [facility] and after radiation done at the [facility] he is suffered with significant incontinence and is ended up with a suprapubic catheter which we changed every month so for now disconnect continue to change the catheter every month as planned I will watch him and see what happens but do not plan to do any intervention for the hydronephrosis since it appears to be chronic. [facility] Medical History Hearing loss, left Hearing loss, [...] 76.8 H, Lymph % (Auto) 15.5 L, Alfalfa % (Auto) 0.5, Eos % (Auto) 5.7 [...] 93.8 H, Lymph % (Auto) 1.8 L, Alfalfa % (Auto) 2.8, Eos % (Auto) 0.1, [...] use of iterative reconstruction technique). Reading Location: [facility] Chest X-Ray 08/14/24 21:29 IMPRESSION: No focal airspace abnormality. Reading Location: [facility] 08/15/24 0849 <Electronically signed by Zhao Gilliland MD> Cosigner Signature (if applicable): CC: Dr. Kelvin Han MD~ Signed [facility] Work Phone: 1(458) 780-280503-12-2025 Consult note [facility] Medical Records Department [address] [place] [address] Consultation - Grooming Assistant 08/15/24 0804 MR#: [id number] Acct: [id number] Name: BARBARA MILAN MONI Rep #:[id number] [...] medical intensive care unit for further management. [facility] Medical History Hearing loss, left Hearing loss, [...] 76.8 H, Lymph % (Auto) 15.5 L, Alfalfa % (Auto) 0.5, Eos % (Auto) 5.7 [...] 93.8 H, Lymph % (Auto) 1.8 L, Alfalfa % (Auto) 2.8, Eos % (Auto) 0.1, [...] Reading [facility]: [facility] Charges/Coding Procedures Hospitalists Procedures: 01801 Critical Care 1st Hr 08/15/24 0924 Cosigner Signature (if applicable): CC: Dr. Kelvin Han MD~ Signed [facility]03-12-2025 History and physical note Author Rajinder Iyer [facility] Note Date/Time August 15, 2024 6:5 6am [facility] Medical Records Department [address] [place] [address] H&P Exam - Hospitalist 08/14/24 2322 MR#: [id number] Acct: [id number] Name: BARBARA MILAN Rep #:[id number] : [...] history of Left TKR who presents to [facility] ER complaining of fever, Right flank pain [...] is expected to extend beyond 2 midnights. [facility] Medical History Hearing loss, left Hearing loss, [...] 76.8 H, Lymph % (Auto) 15.5 L, Alfalfa % (Auto) 0.5, Eos % (Auto) 5.7 [...] ordered for a.m. Give acetaminophen prn for svll-ys-opicurhe (level 1- 5/10) pain or fever. Give [...] Vasopressors started Charges/Coding Visit Charges Inpatient E&M: 02486 Init Hosp L3 08/15/24 0656 <Electronically signed by Rajinder Acosta DO> Cosigner Signature (if applicable): CC: Dr. Kelvin Han MD; Dr. Rajinder Acosta DO~ Signed [facility] Work Phone: 1(624) 995-639403-12-2025 Consult note [facility] Medical Records Department [address] [place] [address] Consultation - Urology 08/15/24 0847 MR#: [id number] Acct: [id number] Name: BARBARA MILAN MONI Rep #:[id number] [...] bladder after radical prostatectomy done at the [facility] and after radiation done at the [facility] he is suffered with significant incontinence and is ended up with a suprapubic catheter which we changed every month so for now disconnect continue to change the catheter every month as planned I will watch him and see what happens but do not plan to do any intervention for the hydronephrosis since it appears to be chronic. [facility] Medical History Hearing loss, left Hearing loss, [...] 76.8 H, Lymph % (Auto) 15.5 L, Alfalfa % (Auto) 0.5, Eos % (Auto) 5.7 [...] 93.8 H, Lymph % (Auto) 1.8 L, Alfalfa % (Auto) 2.8, Eos % (Auto) 0.1, [...] use of iterative reconstruction technique). Reading Location: [facility] Chest X-Ray 08/14/24 21:29 IMPRESSION: No focal airspace abnormality. Reading Location: [facility] 08/15/24 0849 Cosigner Signature (if applicable): CC: Dr. Kelvin Han MD~ Signed [facility]03-12-2025 History and physical note [facility] Medical Records Department [address] [place] [address] H&P Exam - Hospitalist 08/14/24 2322 MR#: [id number] Acct: [id number] Name: BARBARA MILAN MONI Rep #:[id number] [...] history of Left TKR who presents to [facility] ER complaining of fever, Right flank pain [...] is expected to extend beyond 2 midnights. [facility] Medical History Hearing loss, left Hearing loss, [...] 76.8 H, Lymph % (Auto) 15.5 L, Alfalfa % (Auto) 0.5, Eos % (Auto) 5.7 [...] ordered for a.m. Give acetaminophen prn for ppbt-gm-vhdmmqga (level 1-5/10) pain or fever. Give morphine [...] Vasopressors started Charges/Coding Visit Charges Inpatient E&M: 35647 Init Hosp 08/15/24 0656 Cosigner Signature (if applicable): CC: Dr. Kelvin Han MD; Dr. Rajinder Acosta DO~ Signed [facility]03-12-2025 Evaluation note* Diagnosis Onset Date Resolution Status [...] radiation cystitis chronic August 14, 2024 11:36pm [facility] Work Phone: 1(252) 702-632203-12-2025 Evaluation note* Diagnosis Onset Date Resolution Status [...] indwelling catheter resolved August 14, 2024 11:36pm [facility] Work Phone: 1(824) 812-338503-11-2025 Radiology Diagnostic study note [facility] Imaging Services [address] [place] [address] Chest PA and Lateral MR#: [id number] Acct: [id number] Name: BARBARA MILAN Rep #: [id number] : 1945 M 78 From: Jon Christopher DO PCP: Dr. Kelvin Han MD Status: REG ER Study:Chest PA and Lateral Date of Exam: 08/14/24 Exam# [id number] Ordering Dr: Teena Nicolas MD PROCEDURE: CHEST PA AND LATERAL REASON FOR EXAM: SEPSIS TECHNIQUE: Frontal and lateral views of the chest. COMPARISON: 12/21/2023 FINDINGS: Cardiomediastinal silhouette is within normal limits. Lungs are clear. No sizable pneumothorax. RAD/Chest PA and Lateral IMPRESSION: No focal airspace abnormality. Reading Location: NO CC: Dr. Kelvin Han MD; Dr. Kishore Nicolas MD ~ Demurrage Worker: Signed [facility]03-11-2025 Radiology Diagnostic study note [facility] Imaging Services [address] [place] [address] Abdomen/Pelvis without Cont MR#: [id number] Acct: [id number] Name: BARBARA MILAN MONI Rep #: [id number] : 1945 M 78 From: Jon Christopher DO PCP: Dr. Kelvin Han MD Status: REG ER Study:Abdomen/Pelvis without Cont Date of Exa m: 08/14/24 Exam# [id number] Ordering Dr: Teena Nicolas MD PROCEDURE: CT [...] Han MD; Dr. Kishore Nicolas MD ~ Demurrage Worker: Signed [facility]12-06-2024 NoteHNO ID: [id number] Author: KEIRY MICHAELS CT Service: ? Author Type: Clinical Trust Administrator Type: Progress Notes Filed: 05/11/2024 14:03 Note [...] for EMERGENT procedures): No specimen collected. [facility] History of Present illness Narrative* Keiry [...] specimen collected. ESDRAS Good documented [facility]24 NoteHNO ID: [id number] Author: MATT GARCIA MD Service: ? Author [...] avoid if at all possible Matt Garcia, [facility]12-06-2024 Procedure note* Matt Eagle MD - 05/11/2024 [...] the SP tract and the balloon inflated vxif18szi of sterile water once position within the bladder was confirmed with return of fluid. COMPLICATIONS: None RECOMMENDATIONS: Discussed findings with patient. POST PROCEDURE Condition: satisfactory Plan: Continue monthly spt exchanges locally If hematuria returns could do hbo again Discussed end stage option of cx and IC - he would like to avoid if at all possible Matt Garcia MD [facility]12-06-2024 Procedure note* Matt Garcia MD - 05/11/2024 [...] the SP tract and the balloon inflated [id number] of sterile water once position within the bladder was confirmed with return of fluid. COMPLICATIONS: None RECOMMENDATIONS: Discussed findings with patient. POST PROCEDURE Condition: satisfactory Plan: Continue monthly spt exchanges locally If hematuria returns could do hbo again Discussed end stage option of cx and IC - he would like to avoid if at all possible Matt Garcia MD documented in this encounterSelect [facility] [place]12-06-20[facility] Nurse Note* Keiry Michaels CT - 05/11/2024 1:02 PM EST Patient ID with (2) Identifiers, Verified by: ESDRAS Good Actual procedure/procedure scheduled: Yes Performing provider/scheduled provider: Yes Patient was roomed in: 9- 07 [employer] Head offered:Patient declines Patient arrived in the room [...] Education Session: None Instruction Provided To: Patient Medical Staff Director Present: no Discipline: Nursing Learning Topic: SURVIVAL SKILLS: Symptom Management Patient Evaluation: Verbalizes understanding: Yes Supplemental Material Given: Written Material Instructed By ESDRAS Good In Department Urology . [facility]12-06-2024 Nurse Note* Keiry Michaels CT - 05/11/2024 1:02 PM EST Patient ID with (2) Identifiers, Verified by: ESDRAS Good Actual procedure/procedure scheduled: Yes Performing provider/scheduled provider: Yes Patient was roomed in: Q9- 07 [employer] Head offered:Patient declines Patient arrived in the room [...] Education Session: None Instruction Provided To: Patient Medical Staff Director Present: no Discipline: Nursing Learning Topic: SURVIVAL SKILLS: Symptom Management Patient Evaluation: Verbalizes understanding: Yes Supplemental Material Given: Written Material Instructed By ESDRAS Good In Department Urology . documented in this encounterSelect [facility] [place]10-28-2024 NoteHNO ID: [id number] Author: ANNABELLA ARCE APRN.EYELET MACHINE OPERATOR Service: ? Author Type: Nurse Hardness Inspector Type: Anesthesia Procedure Notes Filed: 04/02/2024 13:41 Note Text: ANESTHESIOLOGY PROCEDURE NOTE Airway General Information Procedure Start Time/Medication Administration: 04/02/2024 1:20 PM Procedure End Time: 04/02/2024 1:20 PM Patient location during procedure: OR Timeout Performed Pre-procedure: timeout performed Consent Obtained: Yes Patient identity confirmed: arm band and patient Staffing Anesthesiologist: Kavin Conte MD EYELET MACHINE OPERATOR: Rubina Sawyer APRN.EYELET MACHINE OPERATOR SRNA: Leonel Orona, SRNA Performed by: CLOTILDE [...] April 02, 2024 TIME: 1:40 PM CSN: [id number]10-[facility] Telephone encounter Note* Telephone Encounter - Amalia Childers MD - 03/28/2024 8:16 AM EDT Called patient about pre op abx, no answer [facility]10-23-2024 Miscellaneous Notes* Telephone Encounter - Amalia Childers MD - 03/28/2024 8:16 AM EDT Called patient about pre op abx, no answer documented in this encounterSelect [facility] [place]09-27-2024 NoteHNO ID: [id number] Author: HAWA ZEPEDA MD Service: ? Author Type: Anesthesiologist Type: Progress Notes Filed: 03/02/2024 14:41 Note Text: Attending Note I evaluated the patient and personally participated in the hurd components. I agree with the resident's findings and plan as documented and have discussed the case and management of the patient's care with the resident. Signature: Hawa Zepeda MD Date: 03/02/2024 Time: 2:41 [facility]09-27-2024 History of Present illness Narrative* Hawa Zepeda MD - 03/02/2024 2:41 PM EDT Attending Note I evaluated the patient and personally participated in the hurd components. I agree with the resident's findings and plan as documented and have discussed the case and management of the patient's carewith the resident. Signature: Hawa Zepeda MD Date: 03/02/2024 Time: 2:41 PM documented in this encounterSelect [facility] [place]09-27-2024 NoteHNO ID: [id number] Author: KENYETTA GARCIA LPN Service: ? Author [...] (RECOMMENDATION): None Supplies ordered and sent to [facility] medical. Electronically Signed By: Kenyetta Garcia LPN [facility] History of Present illness Narrative* Kenyetta [...] (RECOMMENDATION): None Supplies ordered and sent to [address] [place] [address]. Electronically Signed By: Kenyetta Garcia LPN In Department: Urology documented in this encounterSelect [facility] [place]09-27-2024 Instructions* Patient Instructions* Dio Javier MD - 03/02/2024 10:13 AM EDT Images from the original note were not included. [facility] PATIENT PREOPERATIVE INSTRUCTIONS Matt Garcia MD has scheduled you for your procedure at this surgery center: [facility] Scheduling Office: [phone] --[address] [place] [address]. Please read below carefully for your personalized [...] the day of the surgery mv with gnd-AG-rzxzabaq-ginkgo (ONE-A-DAY MEN'S 50+ ADVANTAGE) 400-300-120 mcg-mcg-mg tab [...] Procedures: - YOU MUST HAVE A RESPONSIBLE AIRPLANE TUBE BUILDER TAKE YOU HOME. A SHOE PULLER OR EQUIPMENT SERVICE ASSOCIATE CANNOT BE MADE A RESPONSIBLE AIRPLANE TUBE BUILDER. - We recommend that a responsible person [...] call the Tuesday before. Your surgeon s user interface engineer will tell you what time to call the office. - If you have not reached the departmental user interface engineer by 5 P.M., call [phone] after 5 P.M. the day before your surgery. Please be aware that emergency situations arise, which may delay or change your surgical time. If this happens, we will notify you as soon as possible and regret any inconvenience. If you already have an Advance Directive, please fax a copy to [phone] or email to for it to be [...] day. Dio Javier MD documented in this encounterSelect [facility] [place]09-27-2024 History and physical note * Dio Javier [...] -Completed outpatient hyperbaric oxygen therapy 03/01 at [place] for hematuria/friable, bleeding mucosa over the bladder neck seen on cysto -Has had additional clot evacs and bladder neck incisions this past year at [place], had laser BNI November 13 2023 -Recent Admission early February at [facility] for gross hematuria- underwent cystoscopy on 02/11for [...] equal to 35 kg/m^2 STOP-Bang Score: 4 [id number] Score: Hypertension history: Yes [id number] Score: ANESTHESIA FINDINGS: Intubation History: No abnormal [...] Admin: COVID-19 vaccine, age 12+ yr, season (Vetr) 03/06/2022 Outside Immunization: COVID-19, mRNA, LNP-S, PF, [...] mouth twice daily. Taking Yes mv with mwe-MW-oizotdhn-ginkgo (ONE-A-DAY MEN'S 50+ ADVANTAGE) 400-300-120 mcg-mcg-mg tab [...] or any previous visit (from the past 93056 hour(s)). Instructions Given to Patient: Instructions located in the after visit summary. Patient given verbal and written preop instructions and voices comprehension and compliance. SIGNATURE: Dio Javier MD PATIENT NAME: Barbara Milan DATE: March 02, 2024 TIME: 9:41 AM PAGER/CONTACT #: [facility]09-27-2024 History and physical note* Dio Javier MD [...] -Completed outpatient hyperbaric oxygen therapy 03/01 at [place] for hematuria/friable, bleeding mucosa over the bladder neck seen on cysto -Has had additional clot evacs and bladder neck incisions this past year at [place], had laser BNI November 13 2023 -Recent Admission early February at [facility] for gross hematuria- underwent cystoscopy on 02/11for [...] equal to 35 kg/m^2 STOP-Bang Score: 4 [id number] Score: Hypertension history: Yes [id number] Score: ANESTHESIA FINDINGS: Intubation History: No abnormal [...] Admin: COVID-19 vaccine, age 12+ yr, season (Vetr) 03/06/2022 Outside Immunization: COVID-19, mRNA, LNP-S, PF, [...] mouth twice daily. Taking Yes mv with rgj-YB-pfthjgho-ginkgo (ONE-A-DAY MEN'S 50+ ADVANTAGE) 400-300-120 mcg-mcg-mg tab [...] or any previous visit (from the past 63[address] hour(s)). Instructions Given to Patient: Instructions located in the after visit summary. Patient given verbal and written preop instructions and voices comprehension and compliance. SIGNATURE: Dio Javier MD PATIENT NAME: Barbara Milan DATE: March 02, 2024 TIME: 9:41 AM PAGER/CONTACT #: documented in this encounterSelect [facility] [place]09-24-2024 Telephone encounter Note * Telephone Encounter - [...] about HBOT, then she has to call [phone] to scheduled an assessment with their providers. The locations available are [facility], [facility], [facility], [facility]. Can you call and let her know? [...] also has some questions . Thanks Erin [facility] Work Phone: 1(857) 863-994409-24-2024 Miscellaneous Notes* Telephone Encounter - Amalia Shah [...] about HBOT, then she has to call [phone] to scheduled an assessment with their providers. The locations available are [place], [facility], [facility], [facility], [facility], [facility]. Can you call and let her know? [...] questions . Manda Khan documented in this encounterSelect Medical [facility]ty [facility] [place]09-20-2024 NoteHNO ID: [id number] Author: OSCAR HURT RN Service: ? Author [...] Care Visit completed when applicable. Oscar Hurt [facility] History of Present illness Narrative* Oscar [...] applicable. Oscar Hurt RN documented in this encounterSelect Medical [facility]ty [facility] [place]09-20-2024 Instructions* Patient Instructions* Matt Garcia MD - [...] it is an option documented in this encounterSelect Medical [facility] [place]09-20-2024 Nurse Note* Oscar Hurt RN - 02/24/2024 12:38 PM EDT Actual procedure/procedure scheduled: Yes Performing provider/scheduled provider: Yes Patient was roomed in: Q9- 11 [employer] Head offered:Patient declines Patient arrived in the room [...] 0 on a 0-10 pain scale. Oscar Fillmore, [facility] PATIENT EDUCATION THE FOLLOWING WAS EVALUATED Motivation To Learn: Interested Family/Significant Other Support: Unable to assess - Family not present Cognitive Ability: Alert/Oriented Method of Instruction: Individual instruction Written instruction/Handouts Verbal instruction The Following Influencing Factors Were Barriers To This Education Session: None The Following Physical Limitations Were Barriers To This Education Session: None Instruction Provided To: Patient Medical Staff Director Present: not applicable Discipline: Nursing Learning Topic: SURVIVAL SKILLS: Complication Prevention Symptom Management Patient Evaluation: Verbalizes understanding: Yes Supplemental Material Given: Written Material Instructed By Oscar Hurt RN In Department Urology . [facility]09-20-2024 Nurse Note* Oscar Hurt RN - 02/24/2024 12:38 PM EDT Actual procedure/procedure scheduled: Yes Performing provider/scheduled provider: Yes Patient was roomed in: [facility] [employer] Head offered:Patient declines Patient arrived in the room [...] Education Session: None Instruction Provided To: Patient Medical Staff Director Present: not applicable Discipline: Nursing Learning Topic: SURVIVAL SKILLS: Complication Prevention Symptom Management Patient Evaluation: Verbalizes understanding: Yes Supplemental Material Given: Written Material Instructed By Oscar Hurt RN In Department Urology . documented in this encounterSelect [facility]09-20-2024 NoteHNO ID: [id number] Author: MATT GARCIA MD Service: ? Author Type: Physician Type: Procedures Filed: 02/24/2024 14:04 Note Text: PHYSICIAN'S NOTE: Procedure: Cystoscopy Epic notes reviewed: yes 78 year old male with a history of Bluemont 9 prostate cancer sp RP 2011 and [...] consider and let me know Matt Garcia [facility]09-20-2024 Procedure note* Matt Eagle MD - 02/24/2024 12:27 PM EDT PHYSICIAN'S NOTE: Procedure: Cystoscopy Epic notes reviewed: yes 78 year old male with a history of Bluemont 9 prostate cancer sp RP 2011 and [...] and let me know Matt Garcia MD [facility]09-20-2024 Procedure note* Matt Garcia MD - 02/24/2024 12:27 PM EDT PHYSICIAN'S NOTE: Procedure: Cystoscopy Epic notes reviewed: yes 78 year old male with a history of Bluemont 9 prostate cancer sp RP 2011 and [...] know Matt Garcia MD documented in [facility] encounterSelect [facility] [place]24 NoteHNO ID: [id number] Author: LEROY KLINE RN Service: ? Author [...] of Care Visit completed when applicable. [facility]en [facility] History of Present illness Narrative* Leroy [...] applicable. Leroy Kline RN documented in this encounterSelect [facility] [place]24 NoteHNO ID: [id number] Author: MATT GARCIA MD Service: ? Author Type: Physician Type: Procedures Filed: 12/23/2023 17:13 Note Text: PHYSICIAN'S NOTE: Procedure: Cystoscopy Epic notes reviewed: yes Mr. Milan is a 78 year old male with a history of Bluemont 9 prostate cancer sp RP 2011 and [...] happy to be back in depends [facility]* Matt Eagle MD - 12/23/2023 1:34 PM EDT PHYSICIAN'S NOTE: Procedure: Cystoscopy Epic notes reviewed: yes Mr. Milan is a 78 year old male with a history of Bluemont 9 prostate cancer sp RP 2011 and [...] be back in depends Matt Garcia MD [facility]07-19-2024 Procedure note* Matt Garcia MD - 12/23/2023 [...] depends Matt Garcia MD documented in this encounterSelect [facility] [place] Nurse Note* Leroy Kline RN - 12/23/2023 12:49 PM EDT Actual procedure/procedure scheduled: Yes Performing provider/scheduled provider: Yes Patient was roomed in: Q9- 05 [employer] Head offered:Patient declines Patient arrived in the room [...] Sight: Corrective lenses Instruction Provided To: Patient Medical Staff Director Present: not applicable Discipline: Nursing Learning Topic: SURVIVAL SKILLS: Complication Prevention Symptom Management Patient Evaluation: Verbalizes understanding: Yes Supplemental Material Given: Written Material Instructed By Leroy Kline RN In Department Urology . [facility]07-19-2024 Nurse Note* Leroy Kline RN - 12/23/2023 12:49 PM EDT Actual procedure/procedure scheduled: Yes Performing provider/scheduled provider: Yes Patient was roomed in: Q9- 05 [employer] Head offered:Patient declines Patient arrived in the room [...] Sight: Corrective lenses Instruction Provided To: Patient Medical Staff Director Present: not applicable Discipline: Nursing Learning Topic: SURVIVAL SKILLS: Complication Prevention Symptom Management Patient Evaluation: Verbalizes understanding: Yes Supplemental Material Given: Written Material Instructed By Leroy Kline RN In Department Urology . documented in this encounterSelect [facility] [place]2024 NoteHNO ID: [id number] Author: MATT GARCIA MD Service: ? 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 [facility] UROLOGY NEW [...] still in now Multiple ER visits in [place] for hematuria, retention CKD Cr 1.3 (last [...] not taking: Reported on 12/16/2023) mv with lpa-JZ-lxkvrngn-ginkgo (ONE-A-DAY MEN'S 50+ ADVANTAGE) 400-300-120 mcg-mcg-mg tab [...] questions answered. Matt Garcia MD Associate Staff [facility] Department of Urology I spent a total of 40 minutes on the date of the service which included preparing to see the patient, upwq-rf-lkky patient care, completing clinical documentation, obtaining and/or reviewing separately obtained history, performing a medically appropriate examination, counseling and educating the pat ient/family/caregiver, and ordering medications, tests, or procedures. >50% of time was devoted to patient counseling. documented in this encounterSelect Medical [facility] [place]2024 NotePatient Outreach (UROLMN) BARBARA MILAN ([id number]) 1945 M Date Time Provider Department 12/16/23 [...] for genitourinary condition [Z13.89] Order(s):URINALYSIS, REFLEX MICROSCOPIC [IQU2793] Order #: [id number] Prescriptions as of 12/19/2023 - terazosin (HYTRIN) [...] intramuscularly every 4 months. - mv with ygj-GW-uaowffap-ginkgo (ONE-A-DAY MEN'S 50+ ADVANTAGE) 400-300-120 mcg-mcg-mg tab [...] Gross hematuria [R31.0] 02/07/2023 Encounter Status:Closed by AppsBuilder, PRODUSER on 12/19/23[facility] 10[facility]23 Procedure [facility]09-18-2023 Discharge summary Author Zhao Gilliland [facility] February 21, 2023 7:36am Note Date/Time February 21, 2023 7:36am [facility] Medical Records Department [address] [place] [address] Discharge Summary 02/21/23 0735 MR#: [id number] Acct: [id number] Name: BARBARA MILAN MONI Rep #:[id number] : 1945 77 From: Zhao Gilliland MD PCP: Dr. Eduardo Han MD Status: ADM IN [facility] Dis[facility] Summary Summary: 77-year-old male has a [...] Han MD; Dr. Zhao Gilliland MD~ Signed [facility] Work Phone: 1(250) 563-976309-17-2023 Consult note Author Zhao Gilliland [facility] February 20, 2023 11:53am Note Date/Time February 20, 2023 11:53am [facility] Medical Records Department [address] [place] [address] Consultation 02/20/23 1152 MR#: [id number] Acct: [id number] Name: BARBARA MILAN MONI Rep #:[id number] : 1945 77 From: Zhao Gilliland MD PCP: Dr. Eduardo Han MD Status: ADM IN [facility] Consult Date of Consult: 02/20/23 Reason for [...] applicable): CC: Dr. Eduardo Han MD~ Signed [facility] Work Phone: 1(930) 489-199709-17-2023 History and physical note Author Zhao Gilliland [facility] February 20, 2023 1:04am Note Date/Time February 20, 2023 1:04am [facility] Medical Records Department [address] [place] [address] History & Physical Exam 02/20/23 0101 MR#: [id number] Acct: [id number] Name: BARBARA MILAN MONI Rep #:[id number] : 1945 77 From: Zhao Gilliland MD PCP: Dr. Eduardo Han MD Status: ADM BRAEDEN Location: [place] BL708-6 HPI - General General Date of Admission: [...] the clots and cauterize the bleeding again. [facility] Medical History Blood in urine Prostate cancer [...] (Auto) 72.6 H, Lymph % (Auto) 8.8 L,Alfalfa % (Auto) 11.1 H, Eos % (Auto) [...] Han MD; Dr. Zhao Gilliland MD~ Signed [facility] Work Phone: 1(604) 822-170509-17-2023 Discharge summary Author Temi [facility] February 19, 2023 11:51pm Note Date/Time February 19, 2023 11:09pm [facility] Medical Records Department [address] [place] [address] Emergency Department Summary 02/19/23 MR#: [id number] Acct: [id number] Name: KAYLIBARBARA MONI Rep #:[id number] : 1945 77 From: Temi Larson PCP: Dr. Eduardo Han MD Status: ADM BRAEDEN Location: [address] History of Present Illness Chief Complaint: [...] to our hospital and also at [facility]. He has had 2 different cystoscopies [...] time. Is not on any blood thinners. [facility] Medical History Blood in urine Prostate cancer [...] Provider] - Disposition Disposition: Acute Care Hospital [facility] What to do if you have Problems For any increased pain, shortness of breath, bleeding, nausea or vomiting, chestpain, or any unexpected problems, contact your Primary Care Provider. Call [facility] ([phone]) or report to the closest Emergency Room. Call 911 if necessary. 02/19/23 2351 <Electronically signed by Temi Macias DO> Cosigner Signature (if applicable): CC: Dr. Eduardo Han MD ~ Signed [facility] Work Phone: 1(160) 624-982409-17-2023 Procedure [facility] 02-17-2023 Discharge summary Author Zhao Gilliland [facility] February 17, 2023 7:27am Note Date/Time February 17, 2023 7:27am [facility] Medical Records Department [address] [place] [address] Discharge Summary 02/17/23 0724 MR#: [id number] Acct: [id number] Name: KAYLIBARBARA SANTAMARIA MONI Rep #:[id number] : 1945 77 From: Zhao Gilliland MD PCP: Dr. 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 Last week he presented to [facility] with severe pain and bleeding but I was out of town so the patient was t transferred [place] to [facility] and then [place] [facility] he told hewas transferred to [facility] and with surgery there and had a cystoscopy clot evacuation according to the patient not have any wrote notes but then he presented to the ER here at [facility] and they called me so the [...] to send him home with a 18 Bolivian catheter and he can follow-up in my [...] Han MD; Dr. Zhao Gilliland MD~ Signed [facility] Work Phone: 1(218) 646-778709-13-2023 Progress note Author Zhao Gilliland [facility] February 16, 2023 3:07pm Note Date/Time February 16, 2023 3:07pm [facility] Medical Records Department [address] [place] [address] Progress Note - Urology 02/16/23 1506 MR#: [id number] Acct: [id number] Name: BARBARA MILAN MONI Rep #:[id number] : 1945 77 From: Zhao Gilliland MD PCP: Dr. Eduardo Han MD Status: ADM IN Location: [facility] GN014-7 Subjective Subjective Status post resection and cauterization [...] Cosigner Signature (if applicable): CC: ~ Signed [facility] Work Phone: 1(537) 226-745909-12-2023 Progress note Author Zhao Gilliland [facility] February 15, 2023 12:05pm Note Date/Time February 15, 2023 12:05pm [facility] Medical Records Department [address] [place] [address] Progress Note - Urology 02/15/23 1204 MR#: [id number] Acct: [id number] Name: BARBARA MILAN MONI Rep #:[id number] : 1945 77 From: Zhao Gilliland MD PCP: Dr. Eduardo Han MD Status: ADM IN Location: [place] [address] Subjective Subjective Status post cystoscopy clot evacuation [...] 83.6 H, Lymph % (Auto) 6.8 L, Alfalfa % (Auto) 7.1, Eos % (Auto) 1.4, [...] Cosigner Signature (if applicable): CC: ~ Signed [facility] Work Phone: 1(448) 203-706209-11-2023 History and physical note Author Zhao Gilliland [facility] February 14, 2023 4:34pm Note Date/Time February 14, 2023 4:34pm [facility] Medical Records Department [address] [place] [address] History & Physical Exam 02/14/23 1633 MR#: [id number] Acct: [id number] Name: BARBARA MILAN MONI Rep #:[id number] : 1945 77 From: Zhao Gilliland MD PCP: Dr. Eduardo Han MD Status: ADM BRAEDEN Location: [place] AZ445-1 HPI - General General Date of Admission: 02/14/23 Date of Service: 02/14/23 Chief Complaint: Gross hematuria HPI Narrative BARBARA MILAN, is a 77 M who presents to the emergency room with gross hematuriahad a cystoscopy clot evacuation done at [facility] last week presents back to the emergency room with more bleeding and a taken back to surgery today hopefully find the bleeding and stop it with cauterization and three-way irrigation [facility] Medical History Blood in urine Prostate cancer [...] 83.6 H, Lymph % (Auto) 6.8 L, Alfalfa % (Auto) 7.1, Eos % (Auto) 1.4, [...] Natarajan MD at 14:21 EDT , 02/14/23 6824 <Electronically signed by Zhao Gilliland MD> Cosigner Signature (if applicable): CC: Dr. Eduardo Han MD; Dr. Zhao Gilliland MD~ Signed [facility] Work Phone: 1(303) 318-436809-11-2023 [facility] Discharge summary Author Damian Melvin [facility] February 14, 2023 3:51pm Note Date/Time February 14, 2023 10:41am [facility] Medical Records Department [address] [place] [address] Emergency Department Summary 02/14/23 MR#: [id number] Acct: [id number] Name: BARBARA MILAN MONI Rep #:[id number] : 1945 77 From: Damian Larson PCP: Dr. Eduardo Han MD Status: ADM BRAEDEN Location: [facility] HT409-0 HPI History of Present Illness Chief Complaint: [...] There is red cloudy urine. Occult blood zlt580 with greater than 100 red blood cells. [...] 83.6 H Lymph % (Auto) 6.8 L Alfalfa % (Auto) 7.1 Eos % (Auto) 1.4 [...] Clarity Cloudy Urine pH 8.0 Ur Specific [place] 1.010 Urine Protein 500 H Urine Glucose [...] Provider] - Disposition Disposition: Acute Care Hospital [facility] What to do if you have Problems For any increased pain, shortness of breath, bleeding, nausea or vomiting, chestpain, or any unexpected problems, contact your Primary Care Provider. Call [facility] ([phone]) or report to the closest Emergency Room. Call 911 if necessary. 02/14/23 1551 <Electronically signed by Damian Melvin DO> Cosigner Signature (if applicable): CC: Dr. Eduardo Han MD ~ Signed [facility] Work Phone: [phone]) 208-671209-11-2023 Discharge summary Author Damian Melvin [facility] February 14, 2023 3:51pm Note Date/Time February 14, 2023 10:41am [facility] Medical Records Department [address] [place] [address] Emergency Department Summary 02/14/23 MR#: [id number] Acct: [id number] Name: KAYLIBARBARA SANTAMARIA MONI Rep #:[id number] : 1945 77 From: Damian Larson PCP: Dr. Eduardo Han MD Status: ADM BRAEDEN Location: [address] History of Present Illness Chief Complaint: [...] or vomiting. Patient denies any back pain. [facility] Medical History Blood in urine Prostate cancer [...] There is red cloudy urine. Occult blood nhn047 with greater than 100 red blood cells. [...] 83.6 H Lymph % (Auto) 6.8 L Alfalfa % (Auto) 7.1 Eos % (Auto) 1.4 [...] Clarity Cloudy Urine pH 8.0 Ur Specific [place] 1.010 Urine Protein 500 H Urine Glucose [...] Provider] - Disposition Disposition: Acute Care Hospital [facility] What to do if you have Problems For any increased pain, shortness of breath, bleeding, nausea or vomiting, chestpain, or any unexpected problems, contact your Primary Care Provider. Call [facility] ([phone]) or report to the closest Emergency Room. Call 911 if necessary. 02/14/23 1551 <Electronically signed by Damian Melvin DO> Cosigner Signature (if applicable): CC: Dr. Eduardo Han MD ~ Signed [facility] Work Phone: [phone]) 576-884009-09-2023 NoteHNO ID: [id number] Author: Lauren Lubin RN Service: Care Management [...] 12, 2023 TIME: 11:07 AM PAGER/CONTACT #: [phone] Medical Center 02-12-2023 NoteHNO ID: [id number] Author: Lauren Lubin RN Service: Care Management Author Type: Registered Nurse Type: Care Mgt Progress Note Filed: 02/12/2023 11:06 AM Note Text: CARE MANAGEMENT DISCHARGE NOTE SERVICE DATE: 02/12/2023 SERVICE TIME: 11:05 AM LOS: 4 days Caregiver is ready, willing and able to meet the patient's needs as recommended by the inter-professional team: Yes Name of Caregiver: Kate Duarte [facility] for PT Transportation Arrangements: Car Date of Trip: 02/12/23 Destination: Home Patient is being discharged to home. Home care orders were sent. Kate Duarte is made aware of discharge today. SIGNATURE: Lauren Lubin RN PATIENT NAME: Barbara Milan DATE: February 12, 2023 TIME: 11:05 AM PAGER/CONTACT #: [phone] Medical Center 02-12-2023 NoteHNO ID: [id number] Author: Mayra Carrasquillo MD Service: Urology Author [...] follow up scheduled with his Urologist in [place]. DC with [facility]. Rio Pardo MD UROLOGY [...] 27.3* 28.8* PLT 211 203 Urinalysis: Specific [place], Ur Date Value Ref Range Status 02/23/2012 [...] MD Urology PGY2 02/12/2023 7:51 AM -Page implementation consultant resident with questions or concernsMainegeneral Medical Center 02-11-2023 NoteMultiple deeper levels were evaluated. Limited cellularity and crush artifact precludes further evaluation.Mainegeneral Medical CenterComment on above:Order Comment: Specimen Type: TISSUE SPECIMENOrdering Facility: [facility] Address: [address] [place] [address] Performed By: #### S ####[facility] LABORATORYCLIA [id number] [place], [place] [id number] [place] [address] OF [id number] NoteHNO ID: [id number] Author: Mayra Cordova APRN.EYELET MACHINE OPERATOR Service: Anesthesiology Author Type: Nurse Hardness Inspector Type: Anesthesia Procedure Notes Filed: 02/11/2023 3:04 PM Note Text: ANESTHESIOLOGY PROCEDURE NOTE Airway General Information Procedure Start Time/Medication Administration: 02/11/2023 2:54 PM Patient location during procedure: OR Timeout Performed Pre-procedure: timeout performed Consent Obtained: Yes Patient identity confirmed: arm band Staffing EYELET MACHINE OPERATOR: Mayra Cordova APRN.EYELET MACHINE OPERATOR Performed by: ULI Indications and Patient [...] February 11, 2023 TIME: 3:03 PM CSN: [id number] Medical Center09-08-2023 NoteHNO ID: [id number] Author: María Elena Bauer RN Service: Care Management Author Type: Registered Nurse Type: Care Mgt Progress Note Filed: 02/11/2023 10:51 AM Note Text: CARE MANAGEMENT PROGRESS NOTE SERVICE DATE: 02/11/2023 SERVICE TIME: 10:50 AM LOS: 3 days Post-Acute Discharge Planning Patient Goal(s): General wellness, Be able to go home, Better mobility, Less pain [place] Explained: [place] Given: Yes (prevously discussed with [...] home with [facility] PT. [facility] order uploaded to them. Patient will have transport from either family or a friend as his does not drive. SIGNATURE: María Elena Bauer RN PATIENT NAME: Barbara Milan DATE: February 11, 2023 TIME: 10:50 AM PAGER/CONTACT #: [phone] Medical Center 02-11-2023 NoteHNO ID: [id number] Author: Mina Novoa MD Service: Urology Author [...] Intake/Output Summary (Last 24 hours) at 02/11/2023 4851 Last data filed at 02/11/2023 0312 Gross per 24 hour Intake 5000 ml [...] 31.5* PLT 211 203 211 Urinalysis: Specific [place], Ur Date Value Ref Range Status 02/23/2012 [...] MD PGY-4, Urology February 11, 2023 Pager #[phone] Center09-07-2023 NoteHNO ID: [id number] Author: María Elena Bauer RN Service: Care Management Author Type: Registered Nurse Type: Care Mgt Progress Note Filed: 02/10/2023 1:53 PM Note Text: CARE MANAGEMENT PROGRESS NOTE SERVICE DATE: 02/10/2023 SERVICE TIME: 10:52 AM LOS: 2 days IMM Follow Up Copy Given: Yes Copy given to:: Patient Method: In Person [place] Given: No Reason Not Given: [...] contact his PCP to arrange services. Addendum: [place] Given: Yes Reason Not Given: [...] 10, 2023 TIME: 10:56 AM PAGER/CONTACT #: [phone] Medical Center 02-10-2023 NoteHNO ID: [id number] Author: Mina Novoa MD Service: Urology Author [...] to follow-up with his local urologist in [place], Dr. Davies. May consider hyperbaric therapy in [...] 37.5* PLT 211 236 165 Urinalysis: Specific [place], Ur Date Value Ref Range Status 02/23/2012 [...] year old male with a history of Blu[place]ont 9 prostate cancer s/p prostatectomy and radiation [...] -plan for outpatient hyperbaric oxygen therapy in [place] if hematuria persists -Anticipate possible void trial and discharge later today Shari Valera, MS-4 I agree with the medical student's assessment and plan. Appropriate changes made by myself. Patient independently seen and examined. Mina Novoa MD PGY-4, Urology February 10, 2023 Pager #[phone]09-06-2023 NoteHNO ID: [id number] Author: Drea Son RN Service: ? Author Type: Registered Nurse Type: Nursing Progress Note Filed: 02/09/2023 2:22 PM Note Text: CBI clamped after Alum bag per Dr Cortez Carrasquillo.[facility] 02-09-2023 NoteHNO ID: [id number] Author: María Elena Bauer RN Service: Care Management Author Type: Registered Nurse Type: Care Mgt Initial Assessment Filed: 02/09/2023 1:54 PM Note Text: CARE MANAGEMENT: ASSESSMENT AND DISCHARGE PLAN SERVICE DATE: February 09, 2023 SERVICE TIME: 11:43 AM PCP: Kelvin Han MD Primary Contact: Extended Emergency Contact Information Primary Emergency Contact: Yaz Milan [address]: [address] [place] [address] Mobile Relation: Spouse Admission Status: Inpatient Insurance Provider: MEDICARE A AND B Discharge Planning requested by: Per Department Practice Potential Transition Plans Home Advance Directives Current Advance Directive: Health Care Power of Creative Coordinator;Living Will In Chart: Yes Up To Date [...] General wellness, Be able to go home [place] Explained: [place] Given: No Reason Not Given: [...] 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 PT/OT evals are pending, but anticipate patient to return home at [place]. His son will transport as his doesn't drive. SIGNATURE: María Elena Bauer RN PATIENT NAME: Barbara Milan DATE: February 09, 2023 TIME: 1:50 PM CONTACT #: [phone] Medical Center09-06-2023 Note HNO ID: [id number] Author: Drea Son RN Service: ? Author Type: Registered Nurse Type: Nursing Progress Note Filed: 02/09/2023 7:35 AM Note Text: Urology irrigated per patient.[facility]09-06-2023 NoteHNO ID: [id number] Author: Mina Novoa MD Service: Urology Author [...] per 24 hour Intake 2410 ml Output 29090 ml Net -8490 ml Physical Exam: General: [...] Value 02/09/2023 211 12/16/2015 260 Urinalysis: Specific [place], Ur Date Value Ref Range Status 02/23/2012 [...] MD PGY-4, Urology February 09, 2023 Pager #[phone]09-05-2023 NoteHNO ID: [id number] Author: Jose Mcneil MD Service: Urology Author [...] 34.0* 37.5* PLT 236 165 Urinalysis: Specific [place], Ur Date Value Ref Range Status 02/23/2012 [...] Culture: No results found for: URCUL RADIOLOGY: [facility] CT NON-RADIOLOGY -NBNR [facility] - CT Images - Obtained Outside of Imaging [place] Assessment/Plan ASSESSMENT: 77 year old male with gross hematuria. 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 Known to private practice urologist in [place] I saw and evaluated the patient. Discussed with the resident and agree with resident's findings and plan as documented in the resident's note. Jose Mcneil MD See consult [facility]09-04-2023 Discharge summary Author Neo Alcaraz [facility] February 07, 2023 4:14pm Note Date/Time February 07, 2023 11:45am [facility] Medical Records Department [address] [place] [address] Emergency Department Summary 02/07/23 MR#: [id number] Acct: [id number] Name: BARBARA MILAN MONI Rep #:[id number] [...] did have biopsies performed by Dr. Gilliland. [facility] Medical History Blood in urine Prostate cancer [...] is onhis way out of town to [facility]. He states that he cannot keep him in the hospital because he is not going to be here. The patient has a follow-up appointment on Tuesday. He is to see the urology office. At this point the patient states that he wants to try to be transferred to [facility] and I will make this call however, [...] 80.6 H Lymph % (Auto) 7.2 L Alfalfa % (Auto) 8.9 Eos % (Auto) 2.3 [...] your Primary Care Provider. Call [facility] ([phone]) or report to the closest Emergency Room. Call 911 if necessary. 02/07/23 1614 <Electronically signed by Neo Alcaraz DO> Cosigner Signature (if applicable): CC: Dr. Eduardo Han MD ~ Signed [facility] Work Phone: [phone] History of Past illness Narrative* Problem Noted Date Diagnosed Date Resolved Date BPH (benign prostatic hyperplasia) 07/06/2011 11/24/2011 Hypertrophy of prostate with urinary obstruction and other lower urinary tract symptoms (LUTS) 05/25/2007 11/24/2011 Elevated prostate specific antigen (PSA) 05/09/2006 08/10/2011 documented as of this encounter (statuses as of 02/18/2023) [facility] Chuy Hightower [facility] February 21, 2023 9:53am Note Date/Time February 21, 2023 9:53am [facility] Medical Records Department [address] [place] [address] Counseling Note - Pharmacy 02/21/23951 MR#: [id number] Acct: [id number] Name: BARBARA MILAN Rep #:[id number] : 1945 77 From: Chuy Hightower PCP: Dr. Eduardo Han MD Status: ADM IN Y Location: [place] [id number] Pharmacy [facility] Pharmacy Service has performed discharge [...] Signature (if applicable): Date CC: ~ Signed [facility] Work Phone: Consult note Author Zhao Gilliland [facility] May 11th, 2024 4:50am Note Date/Time October 15, 2023 4:50a m [facility] Medical Records Department [address] [place] [address] Consultation - Urology 10/15/23 0448 MR#: [id number] Acct: [id number] Name: BARBARA MILAN MONI Rep #:[id number] [...] a cystoscopy dilation of bladder neck contracture. [facility] Medical History Blood in urine Prostate cancer [...] applicable): CC: Dr. Kelvin Han MD~ Signed [facility] Work Phone: Consult note Author Neida Parra [facility] Note Date/Time August 20, 2024 2:4 6pm [facility] Medical Records Department [address] [place] [address] Counseling Note - Pharmacy 08/20/24 1445 MR#: [id number] Acct: [id number] Name: BARBARA MILAN MONI Rep #:[id number] : 1945 78 From: Neida Parra PCP: Dr. Kelvin Han MD Status :ADM IN Y Location: [facility] [id number] Pharmacy [facility] Pharmacy Service has performed discharge [...] Signature (if applicable): Date CC: ~ Signed [facility] Work Phone: Evaluation noteNo assessment information available [facility] Work Phone: Evaluation note* Diagnosis Onset Date Resolution Status Abdominal pain acute Hematuria acute [facility] Work Phone: Evaluation note* Diagnosis Onset Date Resolution Status Abdominal pain acute Hematuria acute Prostate cancer acute [facility] Work Phone: Evaluation note* Diagnosis Onset Date Resolution Status Abdominal pain acute Hematuria acute Prostate cancer acute Complication, blocked Worthy catheter acute Hematuria acute Prostate cancer acute [facility] Work Phone: Evaluation note* Diagnosis Radiation cystitis- Primary Irradiation cystitis Prostate cancer (HCC) Malignant neoplasm of prostate 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 ZUHAIR (stress urinary incontinence), male Stress incontinence, male [facility]* Diagnosis Screening for genitourinary condition Screening for other and unspecified genitourinary condition documented [facility]* Diagnosis Radiation cystitis- Primary Irradiation cystitis Prostate cancer (HCC) Malignant neoplasm of prostate 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 ZUHAIR (stress urinary incontinence), male Stress incontinence, male documented [facility]* Diagnosis HTN (hypertension)- Primary Unspecified essential hypertension Itching Unspecified pruritic disorder BENIGN HYPERTENSION Essential hypertension, benign Radiation cystitis- Primary Irradiation cystitis Prostate cancer (HCC) Malignant neoplasm of prostate 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 ZUHAIR (stress urinary incontinence), male Stress incontinence, male documented [facility]* Diagnosis HTN (hypertension)- Primary Unspecified essential hypertension Itching Unspecified pruritic disorder BENIGN HYPERTENSION Essential hypertension, benign Stricture of bladder neck- Primary Other specified disorders of bladder Radiation cystitis Irradiation cystitis documented [facility]* Diagnosis HTN (hypertension)- Primary Unspecified essential [...] -Completed outpatient hyperbaric oxygen therapy 03/01 at [place] for hematuria/friable, bleeding mucosa over the bladder neck seen on cysto -Has had additional clot evacs and bladder neck incisions this past year at [place], had laser BNI November 13 2023 -Recent Admission early February at [facility] for gross hematuria- underwent cystoscopy on 02/11for [...] catheter in place [facility]* Diagnosis HTN (hypertension)- Primary Unspecified essential hypertension Itching Unspecified pruritic disorder BENIGN HYPERTENSION Essential hypertension, benign Stricture of bladder neck- Primary Other specified disorders of bladder Prostate cancer (HCC)- Primary Malignant neoplasm of prostate Gross hematuria BENIGN HYPERTENSION Essential hypertension, benign Stricture of bladder neck Other specified disorders of bladder documented [facility] this encounter [facility]* Diagnosis HTN (hypertension)- Primary Unspecified essential [...] Stress incontinence, male documented [facility]* Diagnosis Onset Date Resolution Status Admit Date Acute abdominal pain in righ t flank acute August 14, 2024 11:36pm Acute hypotension acute August 042024 11:36pm Acute UTI acute August 14 11:36pm History of prostate cancer acute August 14, 2024 11:36pm Sepsis acute August 14 11:36pm [facility] Work Phone: History and physical note Author Zhao Gilliland [facility] February 14, 2023 4:34pm Note Date/Time February 14, 2023 4:34pm [facility] Medical Records Department [facility] [place] [address] History & Physical Exam 02/14/23 1633 MR#: [id number] Acct: [id number] Name: BARBARA MILAN MONI Rep #:[id number] : 1945 77 From: Zhao Gilliland MD PCP: Dr. Eduardo Han MD Status: ADM BRAEDEN Location: [address] HPI - General General Date of Admission: 02/14/23 Date of Service: 02/14/23 Chief Complaint: Gross hematuria HPI Narrative BARBARA MILAN, is a 77 M who presents to the emergency room with gross hematuriahad a cystoscopy clot evacuation done at [facility] last week presents back to the emergency room with more bleeding and a taken back to surgery today hopefully find the bleeding and stop it with cauterization and three-way irrigation [facility] Medical History Blood in urine Prostate cancer [...] 83.6 H, Lymph % (Auto) 6.8 L, Alfalfa % (Auto) 7.1, Eos % (Auto) 1.4, [...] Natarajan MD at 14:21 EDT , 02/14/23 1684 <Electronically signed by Zhao Gilliland MD> Cosigner Signature (if applicable): CC: Dr. Eduardo Han MD; Dr. Zhao Gilliland MD~ Signed [facility] Work Phone: Hospital Discharge instructions Additional Instructions Implant Used?: [facility] Work Phone: Progress note Author Cameron Velasconinger [facility] Note Date/Time August 20, 2024 2:3 0pm [facility] Medical Records Department [address] [place] [address] Progress Note - Infect Disease 08/20/24 1429 MR#: [id number] Acct: [id number] Name: BARBARA MILAN MONI Rep #:[id number] : 1945 78 From: Cameron nelson MD PCP: Dr. Kelvin Han MD Status :ADM IN Location: [place] [address] Physical Exam Narrative Feeling better, no fever, [...] Cosigner Signature (if applicable): CC: ~ Signed [facility] Work Phone: Reason for referral (narrative)No reason for [facility] Work Phone: Advance Directives No Advanced Directives Records Found Advance Directive Response Recorded Date/ Time Living Will Yes December 08, 2018 3 :18pm Power of Creative Coordinator Yes December 08, 2018 3:18pm Advance Directive Response Recorded Date/ Time Living Will Yes December 08, 2018 2 :18pm Power of Creative Coordinator Yes December 08, 2018 2:18pm Advance Directive Response Recorded Date/ Time Name of Medical Power of Creative Coordinator recalled February 02, 2023 12:41pm Living Will Yes February 02 12:41pm Power of Creative Coordinator Yes February 02, 2 023 12:41pm Advance Directive Response Recorded Date/ Time Name of Medical Power of Creative Coordinator recalled February 02, 2023 12:41pm Name of Medical Power of Creative Coordinator YAZ/ February 07, 2023 1:01pm Living Will Yes February 07, 2 023 1:01pm Power of Creative Coordinator Yes February 07, 2023 1:01pm Advance Directive Response Recorded Date/ Time Name of Medical Power of Creative Coordinator recalled February 02, 2023 12:41pm Living Will No February 14, 2023 10:21am Power of Creative Coordinator No February 10:21am Name of Medical Power of Creative Coordinator YAZ/ February 07, 2023 1:01pm Advance Directive Response Recorded Date/ Time Name of Medical Power of Creative Coordinator recalled February 02, 2023 12:41pm Living Will No February 14, 2023 6:28pm Power of Creative Coordinator No February 6:28pm Name of Medical Power of Creative Coordinator YAZ/ February 07, 2023 1:01pm Documents on File Type Date Recorded Patient Register Clerk Expl anation Advance Directive(s) 08/24/2011 9:03 PM Advance Directive Response Recorded Date/ Time Name of Medical Power of Creative Coordinator recalled February 02, 2023 12:41pm Name of Medical Power of Creative Coordinator YAZ/ February 07, 2023 1:01pm Name of Medical Power of Creative Coordinator February 20, 2023 2:24am Living Will Yes February 20, 2023 2:24am Power of Creative Coordinator Yes February 2:24am Advance Directive Response Recorded Date/ Time Name of Medical Power of Creative Coordinator recalled February 02, 2023 12:41pm Name of Medical Power of Creative Coordinator March 01, 2023 2:33pm Living Will Yes March 01, 2023 2:33pm Power of Creative Coordinator Yes February 2:33pm Name of Medical Power of Creative Coordinator YAZ/ February 07, 2023 1:01pm Name of Medical Power of Creative Coordinator February 20, 2023 2:24am Advance Directive Response Recorded Date/ Time Living Will Yes March 01, 2023 1:33pm Power of Creative Coordinator Yes February 1:33pm Advance Directive Response Recorded Date/ Time Name of Medical Power of Creative Coordinator maría elena October 15, 2023 3:32am Living Will Yes October 15, 2023 3 :32am Power of Creative Coordinator Yes October 15, 2023 3:32am Documents on File Type Date Recorded Patient Register Clerk Expl anation Advance Directive(s) 08/24/2011 9:03 PM Advance Directive Response Recorded Date/ Time Living Will Yes June 08 7:07am Power of Creative Coordinator Yes June 08 7:07am Name of Medical Power of Creative Coordinator - María Elena June 08, 2024 7:07am Living Will Yes August 14, 2024 9:13pm Power of Creative Coordinator Yes August 14 9:13pm Name of Medical Power of Creative Coordinator María Elena Kayli August 14, 2024 9:13pm Advance Directive Response Recorded Date/ Time Living Will Yes June 08 7:07am Power of Creative Coordinator Yes June 08 7:07am Name of Medical Power of Creative Coordinator - María Elena June 08, 2024 7:07am Living Will Yes August 15, 2024 12:06am Power of Creative Coordinator Yes August 15 12:06am Name of Medical Power of Creative Coordinator María Elena Kayli August 15, 2024 12:06am Advance Directive Response Recorded Date/ Time Living Will Yes June 08 7:07am Do you have a Healthcare Power of Creative Coordinator? Yes June 08, 2024 7:07am Name of Medical Power of Creative Coordinator - María Elena June 08, 2024 7:07am Living Will Yes August 15, 2024 12:06am Do you have a Healthcare Power of Creative Coordinator? Yes August 15, 2024 12:06am Name of Medical Power of Creative Coordinator María Elena Kayli August 15, 2024 12:06am Advance Directive Response Recorded Date/ Time Living Will Yes August 15, 2024 12:06am Do you have a Healthcare Power of Creative Coordinator? Yes August 15, 2024 12:06am Name of Medical Power of Creative Coordinator María Elena Kayli August 15, 2024 12:06am Do you have a Healthcare Power of Creative Coordinator? No October 16, 2024 1:50am Advance Directive Response Recorded Date/ Time Do you have a Healthcare Power of Creative Coordinator? Yes November 13, 2024 11:16pm Living Will Yes August 15, 2024 12:06am Do you have a Healthcare Power of Creative Coordinator? Yes August 15, 2024 12:06am Name of Medical Power of Creative Coordinator María Elena Kayli August 15, 2024 12:06am Do you have a Healthcare Power of Creative Coordinator? No October 16, 2024 1:50am Advance Directive Response Recorded Date/ Time Do you have a Healthcare Power of Creative Coordinator? Yes November 13, 2024 11:16pm Living Will Yes August 15, 2024 12:06am Do you have a Healthcare Power of Creative Coordinator? Yes August 15, 2024 12:06am Name of Medical Power of Creative Coordinator María Elena Milan August 15, 2024 12:06am Do you have a Healthcare Power of Creative Coordinator? No October 16, 2024 1:50am Do you have a Healthcare Power of Creative Coordinator? No November 18, 2024 11:02pm Advance Directive Response Recorded Date/ Time Do you have a Healthcare Power of Creative Coordinator? Yes November 13, 2024 11:16pm Do you have a Healthcare Power of Creative Coordinator? No October 16, 2024 1:50am Do you have a Healthcare Power of Creative Coordinator? No November 18, 2024 11:02pm Chief Complaint [...] FOR PERIOPERATIVE MEDICINE - PREOPERATIVE OPTIMIZATION OFFICE/OUTPATIENT [facility] 60 MINUTES Roberta Martin PA-C [address] [place] [id number] Referral ID Status Reason Start Date Expiration Date Visits Requested Visits Authorized [id number] Authorized PCP Requested Referral 02/28/2024 02/27/2025 1 [...] Gilliland MD Admit Provider, Attending Provider Active Biology Tutor Relationship Specialty Start Date End Date Kelvin Han MD [address] [place] [address] PCP - General Family Medicine 08/30/18 Nayan Gonzalez MD, MD [address] [place] [address] Physician Radiation Oncology 10/09/15 Team Status: Inactive [...] Dr. Columba Decker MD Emergency Provider Active Biology Tutor Relationship Specialty Start Date End Date Kelvin Han MD [address] [place], [place] [address] PCP - General Family Medicine 08/30/18 Nayan Gonzalez MD [address] [place], [place] [address] Physician Radiation Oncology 10/09/15 Biology Tutor Relationship Specialty Start Date End Date Kelvin Han MD [address] [place] [id number] PCP - General Family Medicine 08/30/18 Nayan Gonzalez MD [address] [place] [address] Physician Radiation Oncology 10/09/15 Biology Tutor Relationship Specialty Start Date End Date Kelvin Han MD [address] [place] [address] PCP - General Family Medicine 08/30/18 Nayan Gonzalez MD [address] [place] [address] Physician Radiation Oncology 10/09/15 Biology Tutor Relationship Specialty Start Date End Date Kelvin Han MD [address] [place] [address] PCP - General Family Medicine 08/30/18 Nayan Gonzalez MD [address] [place] [address] Physician Radiation Oncology 10/09/15 Biology Tutor Relationship Specialty Start Date End Date Kelvin Han MD [address] [place] [address] PCP - General Family Medicine 08/30/18 Nayan Gonzalez MD [address] [place] [address] Physician Radiation Oncology 10/09/15 Biology Tutor Relationship Specialty Start Date End Date Kelvin Han MD [address] [place] [address] PCP - General Family Medicine 08/30/18 Nayan Gonzalez MD [address] [place] [address] Physician Radiation Oncology 10/09/15 Biology Tutor Relationship Specialty Start Date End Date Kelvin Han MD [address] [place] [address] PCP - General Family Medicine 08/30/18 Nayan Gonzalez MD [address] [place], [place] [address] Physician Radiation Oncology 10/09/15 Biology Tutor Relationship Specialty Start Date End Date Kelvin Han MD [address] [place] [address] PCP - General Family Medicine 08/30/18 Nayan Gonzalez MD [address] [place] [address] Physician Radiation Oncology 10/09/15 Biology Tutor Relationship Specialty Start Date End Date Kelvin Han MD [address] [place] [address] PCP - General Family Medicine 08/30/18 Nayan Gonzalez MD [address] [place] [address] Physician Radiation Oncology 10/09/15 Biology Tutor Relationship Specialty Start Date End Date Kelvin Han MD [address] [place] [address] PCP - General Family Medicine 08/30/18 Nayan Gonzalez MD [address] [place], [place] [address] Physician Radiation Oncology 10/09/15 Team Status: Active [...] Sta rt: August 15, 2024 Dr. Elias Botoh MD Other Provider Active Star t: August [...] S tart: August 15, 2024 Dr. Darlene Labm MD Other Provider Active Start: August 15, [...] Active Sta rt: August 15, 2024 Dr. Jarde Camacho MD Other Provider Active St art: [...] Provider Active Start: August 15, 2024 Dr. Abrahma Rivera MD Other Provider Active Start : [...] Provider Active Start: August 17, 2024 Dr. Juayn Souza MD Attending Provider Active Start: August [...] Provider Active Start: August 19, 2024 Dr. aCmeron Giron MD Other Provider Active Start: August [...] or prosecute any alcohol or drug abuse patient.[facility] the event this information is protected by the Federal Confidentiality of Alcohol and Drug Abuse Patient Records regulations: The Federal rules restrict any use of the information to criminally investigate or prosecute any alcohol or drug abuse patient.[facility] the event this information is protected by the Federal Confidentiality of Alcohol and Drug Abuse Patient Records regulations: The Federal rules restrict any use of the information to criminally investigate or prosecute any alcohol or drug abuse patient.[facility] the event this information is protected by the Federal Confidentiality of Alcohol and Drug Abuse Patient Records regulations: The Federal rules restrict any use of the information to criminally investigate or prosecute any alcohol or drug abuse patient.[facility] the event this information is protected by the Federal Confidentiality of Alcohol and Drug Abuse Patient Records regulations: The Federal rules restrict any use of the information to criminally investigate or prosecute any alcohol or drug abuse patient.[facility] the event this information is protected by the Federal Confidentiality of Alcohol and Drug Abuse Patient Records regulations: The Federal rules restrict any use of the information to criminally investigate or prosecute any alcohol or drug abuse patient.[facility] the event this information is protected by the Federal Confidentiality of Alcohol and Drug Abuse Patient Records regulations: The Federal rules restrict any use of the information to criminally investigate or prosecute any alcohol or drug abuse patient.[facility] the event this information is protected by the Federal Confidentiality of Alcohol and Drug Abuse Patient Records regulations: The Federal rules restrict any use of the information to criminally investigate or prosecute any alcohol or drug abuse patient.[facility] the event this information is protected by the Federal Confidentiality of Alcohol and Drug Abuse Patient Records regulations: The Federal rules restrict any use of the information to criminally investigate or prosecute any alcohol or drug abuse patient.[facility] the event this information is protected by the Federal Confidentiality of Alcohol and Drug Abuse Patient Records regulations: The Federal rules restrict any use of the information to criminally investigate or prosecute any alcohol or drug abuse patient.[facility] the event this information is protected by the Federal Confidentiality of Alcohol and Drug Abuse Patient Records regulations: The Federal rules restrict any use of the information to criminally investigate or prosecute any alcohol or drug abuse patient.[facility] the event this information is protected by the Federal Confidentiality of Alcohol and Drug Abuse Patient Records regulations: The Federal rules restrict any use of the information to criminally investigate or prosecute any alcohol or drug abuse patient.[facility] Reason for Visit (unrecogniz ed section and content) Reason Comments Follow Up Phone Call Post discharge phon e call attempt made. No answer Reason Comments Cystoscopy-1 Reason Comments Returning Patient's Call Reason Comments [facility] Teaching (unrecognized sect ion and content) No Status Records FoundNo Status Records FoundNo Status Records Found INFORMATION SOURCE (unrecogn ized section and content) DATE CREATED AUTHOR 02/21/2023 [facility] DATE CREATED AUTHOR AUTHOR'S ORGANIZ ATION 05/18/2024 [facility] DATE CREATED AUTHOR AUTHOR'S ORGANIZ ATION 02/24/2025 [facility] FOR RECORDS PERTAINING TO PATIENTS WHO [...] BE BASED ON THE PRIMARY CLINICAL RECORDS. [facility] [employer] [facility]. provides no warranty or guarantee of the accuracy or completeness of information in this document.
[2025-02-24] MEDS: 0.9% Normal Saline (500mL Bag) 500 ML 999 ML IV (23:12)
--- NOTE | 2025-02-24 23:23 | ED.RN ---
2500 mLs of normal saline ordered in total per Dr. Kelly. Pt had already received 1000 mLs when this order was placed. In the [facility] one liter of normal saline was charted against and an additional order of 500 mLs was entered. See fluid resuscitation documentation in worklist.
[2025-02-25] VITALS (12 sets, daily range): BP systolic 103–160; BP diastolic 58–100; PULSE 79–147; RESP 16–36; TEMP 36.9–39.1; O2SAT 94–98; BMI 28.8
[2025-02-25] MEDS: Vancomycin HCl 2,000 MG in 0.9% Normal Saline (500mL Bag) 500 ML 250 MG IV (00:19)
[2025-02-25] MEDS: 0.9% Normal Saline (1000mL) 1,000 ML 100 ML IV (00:19)
[2025-02-25] MEDS: 0.9% Saline Lock 10 ML Syringe IV (02:15)
--- NOTE | 2025-02-25 02:25 | PCM.RX.CS ---
Consult Antibiotic Management Pharmacy has been consulted to manage selected antibiotic: Vancomycin Type of Intervention Type of Consult: New start Labs Labs: Sodium 132 mmol/L (133-145) L 02/24/25 20:31 Potassium 4.1 mmol/L (3.3-5.1) 02/24/25 20:31 Chloride 103 mmol/L (98-108) 02/24/25 20:31 Carbon Dioxide 18.1 mmol/L (21.0-32.0) L 02/24/25 20:31 Anion Gap 11 (5-15) 02/24/25 20:31 BUN 20 mg/dL (4-19) H 02/24/25 20:31 Creatinine 1.34 mg/dL (0.70-1.20) H 02/24/25 20:31 Est GFR (MDRD) Non-Af 55 (>60) L 02/24/25 20:31 BUN/Creatinine Ratio 14.9 RATIO (10-20) 02/24/25 20:31 Glucose 151 mg/dL (70-99) H 02/24/25 20:31 Dosing Weight Weight used for dosin kg Estimated Creatinine Clearance Estimated Creatinine Clearance: 51.16 Goal Trough Goal Trough: 15-20 mcg/mL Pharmacy Plan for Drug Dosing Pharmacy Plan for Drug Dosing: Pharmacy Service will continue to monitor and adjust dosing as required. 2000MG LOADING DOSE GIVEN 02/25 @ 0019. START 1000MG Q12H AND DRAW TROUGH PRIOR TO 4TH DOSE Follow-Up Labs Follow-Up Labs: Trough: Vancomycin Date/Time Labs Ordered Labs to be done on [date and time ordered]: 02/26 @ 1200
[2025-02-25 05:42] LABS: Hematocrit 28.3 % (40-54); Hemoglobin 9.6 g/dL (13.0-16.5); Immature Granulocytes Count 0.020 X10^3/uL (0.0-0.0); Mean Corp Hgb Conc 33.9 g/dL (32-36); Mean Corpuscular Volume 86.5 fL (80-94); Mean Platelet Vol. 11.5 fl (6.2-12.0); NRBC Flagged by Analyzer 0 % (0-5); POSITIVE DIFFERENTIAL YES; Platelet Count 110 K/mm3 (150-450); RBC Distribution Width CV 13.9 % (11.6-14.6); RBC Distribution Width SD 44.4 fl (35.1-43.9); Red Blood Count 3.27 M/mm3 (4.6-6.2); White Blood Count 4.2 K/mm3 (4.4-11.0)
[2025-02-25] MEDS: Meropenem 1 GM in 0.9% Normal Saline (100mL MB+) 100 ML IV ×3 (06:10→22:38)
[2025-02-25 06:11] LABS: AST(SGOT) 28 U/L (<=37); Alanine Aminotransfer ALT/SGPT 13 U/L (<=46); Albumin, Serum 2.8 g/dL (3.4-4.8); Alkaline Phosphatase 43 U/L (40-129); Anion Gap 11 (5-15); BUN 17 mg/dL (4-19); BUN/Creat Ratio 15.0 RATIO (10-20); Calcium,Total 7.2 mg/dL (7.6-11.0); Carbon Dioxide 14.9 mmol/L (21.0-32.0); Chloride 107 mmol/L (98-108); Estimated Creatinine Clearance 62.10 ml/min (50-250); Globulin 2.7 g/dL (2.2-4.2); Glucose 110 mg/dL (70-99); Potassium 3.8 mmol/L (3.3-5.1)
[2025-02-25] MEDS: Albuterol 2.5 MG/3 ML VIAL.NEB. INHALATION (09:03)
--- NOTE | 2025-02-25 09:10 | PN.HOSP_ITS ---
Reason for Visit Chief Complaint: Recent UTI Dx, worsening F/chills, only 1 dose abx therapy. Subjective Subjective Feeling better today. Objective Data Objective Data Vital Signs: Vital Signs Temp Pulse Resp BP Pulse Ox O2 Del Method 37.2 C 127 H 18 105/60 96 Room Air 02/25/25 04:47 02/25/25 09:04 02/25/25 09:04 02/25/25 04:47 02/25/25 04:47 02/25/25 07:37 Oxygen Delivery Method Room Air Weight: 91 kg Body Mass Index (BMI) 28.8 Intake & Output: Intake and Output for Last 24 Hours 02/23/25 02/24/25 02/25/25 23:59 23:59 23:59 Intake Total 2099 1523 / 1523 Output Total 600 / 600 Balance 2099 923 / 923 Lab / Micro Data 02/25/25 04:27 02/25/25 04:27 Labs: Laboratory Results - last 24 hr 02/24/25 20:31: WBC 4.9, RBC 3.61 L, Hgb 10.9 L, Hct 31.1 L, MCV 86.1, MCH 30.2, MCHC 35.0, RDW Std Deviation 43.8, RDW Coeff of Jerry 13.8, Plt Count 138 L, MPV 11.0, Immature Gran % (Auto) 0.800, Neut % (Auto) 83.7 H, Lymph % (Auto) 4.5 L, [place] % (Auto) 5.9, Eos % (Auto) 4.9, Baso % (Auto) 0.2, Absolute Neuts (auto) 4.1, Absolute Lymphs (auto) 0.22 L, Nucleated RBC % 0, Sodium 132 L, Potassium 4.1, Chloride 103, Carbon Dioxide 18.1 L, Anion Gap 11, BUN 20 H, Creatinine 1.34 H, Estim Creat Clear Calc 51.16, Est GFR (MDRD) Non-Af 55 L, BUN/Creatinine Ratio 14.9, Glucose 151 H, Lactic Acid 1.6, Calcium 8.0, Total Bilirubin 0.51, AST 26, ALT 13, Alkaline Phosphatase 51, Total Protein 6.1, Albumin 3.2 L, Globulin 3.0, Albumin/Globulin Ratio 1.1 02/25/25 04:27: WBC 4.2 L, RBC 3.27 L, Hgb 9.6 L, Hct 28.3 L, MCV 86.5, MCH 29.4, MCHC 33.9, RDW Std Deviation 44.4 H, RDW Coeff of Jerry 13.9, Plt Count 110 L, MPV 11.5, Immature Gran % (Auto) 0.500, Neut % (Auto) 84.3 H, Lymph % (Auto) 5.5 L, [place] % (Auto) 4.5, Eos % (Auto) 5.0, Baso % (Auto) 0.2, Absolute Neuts (auto) 3.5, Absolute Lymphs (auto) 0.23 L, Nucleated RBC % 0, Sodium 133, Potassium 3.8, Chloride 107, Carbon Dioxide 14.9 L, Anion Gap 11, BUN 17, Creatinine 1.13, Estim Creat Clear Calc 62.10, Est GFR (MDRD) Non-Af 67, BUN/Creatinine Ratio 15.0, Glucose 110 H, Calcium 7.2 L, Total Bilirubin 0.44, AST 28, ALT 13, Alkaline Phosphatase 43, Total Protein 5.5 L, Albumin 2.8 L, Globulin 2.7, Albumin/Globulin Ratio 1.0 Micro: Microbiology 02/25/25 00:36 Mucosa - Nasopharyngeal Respiratory Panel (PCR) - Final Physical Exam Const alert and no apparent distress HEENT head/scalp atraumatic and moist oral mucous membranes Resp normal respiratory effort, no retractions, no use of accessory muscles and clear to auscultation bilaterally Cardio regular rate, regular rhythm, S1 normal heart sound and S2 normal heart sound GI normal to inspection, nondistended, normoactive bowel sounds, soft to palpation, non-tender and non-distended Extremity normal to inspection and full ROM Psych affect normal Assessment & Plan Assessment/Plan (1) UTI (urinary tract infection): PLAN: Plan Acute Complicated Urinary Tract Infection * secondary to chronic indwelling Worthy catheter secondary to history of prostate cancer status post i prostatectomy with obstructive pathology, failed outpatient antibiotic therapy attempts: * maintain on IV meropenem and IV vancomycin based on previous cultures to be cautious with de-escalation once resulted sensitivities and speciation. Bld cx x 2 obtained in the ED. Recent URI type symptoms: * respiratory panel negative. Chronic conditions: * Chronic Kidney Disease Stage II versus stage III unclear subtype, uncertain as vacillates: Admission BUN/Cr 20/1.34, GFR 55 although GFR has vacillated between stage II and stage III, baseline renal function 1.0-1.3 although has vacillated, repeat BMP in AM. * Chronic normocytic anemia: Admission globin 10.9, MCV 86.1, baseline hemoglobin more recently 10-11, stable, continue to trend. * History of TIA: Will continue asa, not on statin, holding HTN regiment as noted. * Anxiety and depression: Noted history, per current list does not appear to be on any regimen, clarifying to be certain. Encouraged continued follow-up outpatient as previously arranged * hypertension: BP upon presentation low, improving with IV fluids, will hold all hypertensive regimens, add back once appropriate. * Hyperlipidemia: DVT prophylaxis: Lovenox. Charges/Coding Visit Charges Inpatient E&M: 69979 Subs Hosp L2
--- NOTE | 2025-02-25 10:40 | CASEMGMT ---
[facility]IR[facility] Face to Face with patient for initial transition planning/care coordination assessment. RN CM introduced self and role at [facility]. Patient lying in bed, alert and oriented, at bedside. Patient willing to participate in assessment and is able to answer all questions appropriately. Care providers, pharmacy, and demographics verified. Strata: 3 PCP: Guille Specialists: Darshana Justice Pharmacy: [facility] Insurance: MCR, [employer] Prescription Benefit: yes Living Will/HPOA: yes, Susi Milan LNOK: Living Arrangements: Patient lives with in a single story home with 1 step and grab bar to enter. Patient is independent at home. Transportation: self, neighbor, does not drive DME/HHC: Patient has raised toilet, cane, grab bars, walker at home. Patient has had [facility]HC in the past. No previous SNF. Patient wishes to discharge home, denies need for home health at this time, will montior for HHC pending ATBs at discharge. Patient states he has no further needs or concerns at this time. CM to follow for discharge planning needs that may arise. Disposition Plan: Patient to discharge home with family support and follow up plans in place. Will monitor for HHC pending ATBs at discharge. Quin PUCKETT, RN, CM
[2025-02-25] MEDS: Ensure Plus High Protein 120 ML LIQUID PO ×2 (11:32→16:12)
[2025-02-25] MEDS: Vancomycin HCl 1,000 MG in 0.9% Normal Saline (250mL Bag) 250 ML 250 MG IV (12:18)
[2025-02-25] MEDS: 0.9% Normal Saline (250mL Bag) 250 ML 15 ML IV (12:21)
--- NOTE | 2025-02-25 13:52 | CHAPLAIN ---
Type of Pastoral Visit _x__ Initial Visit ___ Follow-up Visit ___ On-call Visit ___ General Patient Visit ___ Spiritual Assessment ___ Family Conference ___ Bereavement ___ Rapid Response ___ Code Blue ___ Other (describe below) Pastoral Care Referral From _x__ Patient ___ Family ___ Nurse ___ Physician ___ [place] Layup Line Core Layer ___ Verifying Machine Operator ___ Other (describe below) Sacrament/Intervention _x__ Active listening ___ Anointing ___ Pentecostalism ___ Bereavement ___ Communion ___ Yumi exploration ___ ___ Life review _x__ Prayer ___ Reconciliation ___ Sacrament of Sick _x__ Supportive presence ___ Wedding ___ Other (describe below) Pastoral Comments patient and spouse are in the room; spouse leaves room to take a phone call; pt speaks of how he felt at home, coming to the hospital, and his hope for recovery; pt acknowledges his need and his desire to go home soon; pt welcomes presence and prayer for support
--- NOTE | 2025-02-25 21:30 | NURSING ---
UPON ENTRY TO PT ROOM, PT HAD CALL LIGHT ON REQUESTING WARM BLANKET DUE TO BEING COLD. INJECTION MOLDING TECHNICIAN GOT BLANKET. PT WAS SHIVERING UNCONTROLLABLE, HYPERVENTALATING, AND COLOR OF SKIN WAS RED. PT WAS TRYING TO CLIMB OOB TO GO TO BR. ADVISED PT IT WAS NOT SAFE TO GET OUT OF BED AT THIS TIME. OBTAINED VS (NOTED IN VSE). PT HAD A TEMP 102.6, HR 150s, BP 160/100. EKG ORDERED, ICE APPLIED TO PATIENTS BODY, COVERS REMOVED, TEMP IN ROOM TURNED DOWN. RN ADMINISTERED TYLENOL, TORADOL, MUCINEX D/T C/O NON-PRODUCTIVE, MOIST COUGH. PT WAS PUT ON STEP DOWN MONITOR, QHR TEMP/VS.
--- NOTE | 2025-02-25 21:57 | EKG12_ITS ---
Test Reason : CONVERTED TO NSR Blood Pressure : */* mmHG Vent. Rate : 99 BPM Atrial Rate : 99 BPM P-R Int : 218 ms QRS Dur : 92 ms QT Int : 356 ms P-R-T Axes : 59 54 41 degrees QTcB Int : 456 ms Sinus rhythm with sinus arrhythmia with 1st degree A-V block Otherwise normal ECG When compared with ECG of 25-Feb-2025 22:03, MANUAL COMPARISON REQUIRED DATA IS UNCONFIRMED Confirmed by SUZI HOOK, SARAH ([id number]), proposal editor STEFAN POLK ([id number]) on 02/26/2025 10:35:47 AM Referred By: Confirmed By: SARAH ARCHER MD
[2025-02-25] MEDS: guaiFENesin 10 ML UDC (200MG/10ML) 20 ML PO (22:15)
[2025-02-26] VITALS (17 sets, daily range): BP systolic 83–147; BP diastolic 44–89; PULSE 83–132; RESP 16–32; TEMP 36.7–38.3; O2SAT 88–98; BMI 29.0
--- NOTE | 2025-02-26 00:31 | EKG12_ITS ---
Test Reason : TACHY Blood Pressure : */* mmHG Vent. Rate : 144 BPM Atrial Rate : * BPM P-R Int : * ms QRS Dur : 80 ms QT Int : 278 ms P-R-T Axes : * 74 14 degrees QTcB Int : 430 ms Critical Test Result: High HR Atrial fibrillation with rapid ventricular response T wave abnormality, consider inferior ischemia Abnormal ECG When compared with ECG of 14-Aug-2024 21:34, Atrial fibrillation has replaced Sinus rhythm T wave inversion now evident in Inferior leads Confirmed by SUZI HOOK, SARAH ([id number]), news videotape editor STEFAN POLK ([id number]) on 02/26/2025 10:35:01 AM Referred By: DR FENG Confirmed By: SARAH ARCHER MD
--- NOTE | 2025-02-26 01:00 | NURSING ---
Pt VS are stable, pt resting in bed. NO c/o ATT
[2025-02-26] MEDS: Vancomycin HCl 1,000 MG in 0.9% Normal Saline (250mL Bag) 250 ML 250 MG IV ×2 (01:21→13:11)
[2025-02-26] MEDS: guaiFENesin 10 ML UDC (200MG/10ML) 20 ML PO ×2 (04:52→13:16)
[2025-02-26 05:51] LABS: Hematocrit 31.2 % (40-54); Hemoglobin 10.5 g/dL (13.0-16.5); Immature Granulocytes Count 0.020 X10^3/uL (0.0-0.0); Mean Corp Hgb Conc 33.7 g/dL (32-36); Mean Corpuscular Volume 87.4 fL (80-94); Mean Platelet Vol. 12.0 fl (6.2-12.0); NRBC Flagged by Analyzer 0 % (0-5); POSITIVE COUNT YES; POSITIVE DIFFERENTIAL YES; POSITIVE MORPHOLOGY YES; Platelet Count 82 K/mm3 (150-450); RBC Distribution Width CV 14.2 % (11.6-14.6); RBC Distribution Width SD 45.9 fl (35.1-43.9); Red Blood Count 3.57 M/mm3 (4.6-6.2); White Blood Count 3.6 K/mm3 (4.4-11.0)
[2025-02-26 05:52] LABS: Differential Indicated SCAN CRITERIA MET
[2025-02-26] MEDS: Meropenem 1 GM in 0.9% Normal Saline (100mL MB+) 100 ML IV ×3 (06:10→21:18)
[2025-02-26 06:23] LABS: Anion Gap 12 (5-15); BUN 20 mg/dL (4-19); BUN/Creat Ratio 15.4 RATIO (10-20); Calcium,Total 7.6 mg/dL (7.6-11.0); Carbon Dioxide 14.9 mmol/L (21.0-32.0); Chloride 105 mmol/L (98-108); Estimated Creatinine Clearance 53.98 ml/min (50-250); Glucose 115 mg/dL (70-99); Potassium 4.2 mmol/L (3.3-5.1)
[2025-02-26 07:16] LABS: Differential Comment SCANNED
--- NOTE | 2025-02-26 08:14 | PCM.PN.HOSP ---
Reason for Visit Chief Complaint: Recent UTI Dx, worsening F/chills, only 1 dose abx therapy. Subjective Subjective Feeling better. Still with fevers and chills. Objective Data Objective Data Vital Signs: Vital Signs Temp Pulse Resp BP Pulse Ox O2 Del Method O2 Flow Rate 38.3 C H 100 32 H 106/68 94 Room Air 2 02/26/25 06:09 02/26/25 07:14 02/26/25 05:04 02/26/25 07:14 02/26/25 07:14 02/26/25 07:14 02/26/25 05:06 Oxygen Flow Rate (L/min) 2 Oxygen Delivery Method Room Air Weight: 92 kg Body Mass Index (BMI) 29.0 Intake & Output: Intake and Output for Last 24 Hours 02/24/25 02/25/25 02/26/25 23:59 23:59 23:59 Intake Total 2100 / 2100 3593 / 3593 559.25 / 559.25 Output Total 1200 / 1300 200 / 200 Balance 2100 / 2100 2393 / 2293 359.25 / 359.25 Lab / Micro Data 02/26/25 04:39 02/26/25 04:39 Labs: Laboratory Results - last 24 hr 02/26/25 04:39: WBC 3.6 L, RBC 3.57 L, Hgb 10.5 L, Hct 31.2 L, MCV 87.4, MCH 29.4, MCHC 33.7, RDW Std Deviation 45.9 H, RDW Coeff of Jerry 14.2, Plt Count 82 L, MPV 12.0, Immature Gran % (Auto) 0.600, Neut % (Auto) 87.3 H, Lymph % (Auto) 7.3 L, [place] % (Auto) 1.7, Eos % (Auto) 2.8, Baso % (Auto) 0.3, Absolute Neuts (auto) 3.1, Absolute Lymphs (auto) 0.26 L, Nucleated RBC % 0, Differential Comment SCANNED, Platelet Estimate MOD DEC, Sodium 133, Potassium 4.2, Chloride 105, Carbon Dioxide 14.9 L, Anion Gap 12, BUN 20 H, Creatinine 1.30 H, Estim Creat Clear Calc 53.98, Est GFR (MDRD) Non-Af 57 L, BUN/Creatinine Ratio 15.4, Glucose 115 H, Calcium 7.6 Micro: Microbiology 02/25/25 00:36 Mucosa - Nasopharyngeal Respiratory Panel (PCR) - Final Physical Exam Const alert and no apparent distress HEENT head/scalp atraumatic and moist oral mucous membranes Resp normal respiratory effort, no retractions, no use of accessory muscles and clear to auscultation bilaterally Cardio regular rate, regular rhythm, S1 normal heart sound and S2 normal heart sound GI normal to inspection, nondistended, normoactive bowel sounds, soft to palpation, non-tender and non-distended Extremity normal to inspection and full ROM Assessment & Plan Assessment/Plan (1) UTI (urinary tract infection): PLAN: Plan Acute Complicated Urinary Tract Infection secondary to chronic indwelling Worthy catheter secondary to history of prostate cancer status post i prostatectomy with obstructive pathology, failed outpatient antibiotic therapy attempts: maintain on IV meropenem and IV vancomycin based on previous cultures to be cautious with de-escalation once resulted sensitivities and speciation. Bld cx x 2 obtained in the ED. out of town and will return on 02/28. Still awaiting on cultures, but he will need to have suprapubic catheter changed. UCx showed GNR,mixed GPO Recent URI type symptoms: respiratory panel negative. Chronic conditions: Chronic Kidney Disease Stage II versus stage III unclear subtype, uncertain as vacillates: Admission BUN/Cr 20/1.34, GFR 55 although GFR has vacillated between stage II and stage III, baseline renal function 1.0-1.3 although has vacillated, repeat BMP in AM. Chronic normocytic anemia: Admission globin 10.9, MCV 86.1, baseline hemoglobin more recently 10-11, stable, continue to trend. History of TIA: Will continue asa, not on statin, holding HTN regiment as noted. Anxiety and depression: Noted history, per current list does not appear to be on any regimen, clarifying to be certain. Encouraged continued follow-up outpatient as previously arranged hypertension: BP upon presentation low, improving with IV fluids, will hold all hypertensive regimens, add back once appropriate. Hyperlipidemia: DVT prophylaxis: Lovenox. DW patient's at bedside. Charges/Coding Visit Charges Inpatient E&M: 39453 Subs Hosp L2
[2025-02-26 12:30] LABS: Vancomycin, Trough Level 16.7 ug/mL (5.0-15.0)
--- NOTE | 2025-02-26 12:47 | PCM.RX.CS ---
Consult Antibiotic Management Pharmacy has been consulted to manage selected antibiotic: Vancomycin Type of Intervention Type of Consult: Follow-up Labs Labs: Sodium 133 mmol/L (133-145) 02/26/25 04:39 Potassium 4.2 mmol/L (3.3-5.1) 02/26/25 04:39 Chloride 105 mmol/L (98-108) 02/26/25 04:39 Carbon Dioxide 14.9 mmol/L (21.0-32.0) L 02/26/25 04:39 Anion Gap 12 (5-15) 02/26/25 04:39 BUN 20 mg/dL (4-19) H 02/26/25 04:39 Creatinine 1.30 mg/dL (0.70-1.20) H 02/26/25 04:39 Est GFR (MDRD) Non-Af 57 (>60) L 02/26/25 04:39 BUN/Creatinine Ratio 15.4 RATIO (10-20) 02/26/25 04:39 Glucose 115 mg/dL (70-99) H 02/26/25 04:39 Vancomycin Trough 16.7 ug/mL (5.0-15.0) H 02/26/25 11:49 Microbiology Microbiology: Microbiology 02/25/25 00:36 Mucosa - Nasopharyngeal Respiratory Panel (PCR) - Final Goal Trough Goal Trough: 15-20 mcg/mL Pharmacy Plan for Drug Dosing Pharmacy Plan for Drug Dosing: VANCOMYCIN LEVEL RECEIVED Current Vancomycin Dose: 1000mg IV Q12hr Number of Doses Received: 3 ( loading + 2 scheduled doses) Vancomycin Level: 16.7 Hours Since Last Dose: 10.5hr Renal Function: scr 1.3/ crcl 54 mL/min Renal Function Trend: stable Lab/Micro: Ucx growing GNR x2 spp, other cultures pending Vancomycin Plan/Comments: Patient had a trough drawn which resulted in a value of 16.7 (goal 15-20). Patient is within therapeutic goal, will continue current regimen of vancomycin 1000mg IV Q12hr and recheck a trough in 2 days Pending Level: 02/28/25 @1200 Pharmacy Service will continue to monitor and adjust dosing as required.
[2025-02-26] MEDS: 0.9% Saline Lock 10 ML Syringe IV (13:04)
[2025-02-26] MEDS: Albuterol 2.5 MG/3 ML VIAL.NEB. INHALATION ×3 (14:00→23:49)
[2025-02-27] VITALS (10 sets, daily range): BP systolic 93–147; BP diastolic 57–86; PULSE 94–114; RESP 16–24; TEMP 36.4–37.2; O2SAT 94–99; BMI 29.7
[2025-02-27] MEDS: Vancomycin HCl 1,000 MG in 0.9% Normal Saline (250mL Bag) 250 ML 250 MG IV (00:24)
[2025-02-27] MEDS: guaiFENesin 10 ML UDC (200MG/10ML) 20 ML PO ×3 (05:04→15:53)
[2025-02-27] MEDS: Meropenem 1 GM in 0.9% Normal Saline (100mL MB+) 100 ML IV ×3 (05:04→22:09)
[2025-02-27 06:00] LABS: Hematocrit 27.2 % (40-54); Hemoglobin 9.5 g/dL (13.0-16.5); Immature Granulocytes Count 0.010 X10^3/uL (0.0-0.0); Mean Corp Hgb Conc 34.9 g/dL (32-36); Mean Corpuscular Volume 85.3 fL (80-94); Mean Platelet Vol. 11.4 fl (6.2-12.0); NRBC Flagged by Analyzer 0 % (0-5); POSITIVE COUNT YES; POSITIVE DIFFERENTIAL YES; POSITIVE MORPHOLOGY YES; Platelet Count 57 K/mm3 (150-450); RBC Distribution Width CV 14.4 % (11.6-14.6); RBC Distribution Width SD 45.1 fl (35.1-43.9); Red Blood Count 3.19 M/mm3 (4.6-6.2); White Blood Count 1.7 K/mm3 (4.4-11.0)
[2025-02-27 06:15] LABS: Anion Gap 11 (5-15); BUN 26 mg/dL (4-19); BUN/Creat Ratio 15.1 RATIO (10-20); Calcium,Total 7.5 mg/dL (7.6-11.0); Carbon Dioxide 15.0 mmol/L (21.0-32.0); Chloride 103 mmol/L (98-108); Estimated Creatinine Clearance 41.43 ml/min (50-250); Glucose 114 mg/dL (70-99); Potassium 3.9 mmol/L (3.3-5.1)
[2025-02-27 06:41] LABS: Differential Indicated SCAN CRITERIA MET
[2025-02-27 06:42] LABS: Differential Comment SCANNED
--- NOTE | 2025-02-27 07:42 | PCM.PN.HOSP ---
Reason for Visit Chief Complaint: Recent UTI Dx, worsening F/chills, only 1 dose abx therapy. Subjective Subjective Feeling better. Objective Data Objective Data Vital Signs: Vital Signs Temp Pulse Resp BP Pulse Ox O2 Del Method O2 Flow Rate 37.2 C 105 H 22 H 93/64 97 Nasal Cannula 2 02/27/25 03:45 02/27/25 03:45 02/27/25 03:45 02/27/25 03:45 02/27/25 03:45 02/27/25 03:45 02/27/25 03:45 Oxygen Flow Rate (L/min) 2 Oxygen Delivery Method Nasal Cannula Weight: 94.1 kg Body Mass Index (BMI) 29.7 Intake & Output: Intake and Output for Last 24 Hours 02/25/25 02/26/25 02/27/25 23:59 23:59 23:59 Intake Total 3593 / 3593 1709.25 / 1709.25 370 / 370 Output Total 1200 / 1300 1250 / 1250 200 / 200 Balance 2393 / 2293 459.25 / 459.25 170 / 170 Lab / Micro Data 02/27/25 05:49 02/27/25 05:49 Labs: Laboratory Results - last 24 hr 02/26/25 11:49: Vancomycin Trough 16.7 H 02/27/25 05:49: WBC 1.7 L, RBC 3.19 L, Hgb 9.5 L, Hct 27.2 L, MCV 85.3, MCH 29.8, MCHC 34.9, RDW Std Deviation 45.1 H, RDW Coeff of Jerry 14.4, Plt Count 57 L, MPV 11.4, Immature Gran % (Auto) 0.600, Neut % (Auto) 83.6 H, Lymph % (Auto) 5.5 L, [place] % (Auto) 3.0, Eos % (Auto) 7.3 H, Baso % (Auto) 0.0, Absolute Neuts (auto) 1.4 L, Absolute Lymphs (auto) 0.09 L, Nucleated RBC % 0, Differential Comment SCANNED, Platelet Estimate MOD DEC, Sodium 129 L, Potassium 3.9, Chloride 103, Carbon Dioxide 15.0 L, Anion Gap 11, BUN 26 H, Creatinine 1.72 H, Estim Creat Clear Calc 41.43 L, Est GFR (MDRD) Non-Af 40 L, BUN/Creatinine Ratio 15.1, Glucose 114 H, Calcium 7.5 L Micro: Microbiology 02/25/25 00:36 Mucosa - Nasopharyngeal Respiratory Panel (PCR) - Final Physical Exam Const alert and no apparent distress Constitutional Narrative: up at side of bed. HEENT head/scalp atraumatic and moist oral mucous membranes Resp normal respiratory effort, no retractions and no use of accessory muscles Cardio regular rate, regular rhythm, S1 normal heart sound and S2 normal heart sound GI normal to inspection, nondistended, normoactive bowel sounds and soft to palpation Extremity Extremity Narrative: infiltrated IV fluid in LUE with left hand edema. Neuro Sensorium / Orientation: awake and alert Assessment & Plan Assessment/Plan (1) UTI (urinary tract infection): PLAN: Plan Acute Complicated Urinary Tract Infection secondary to chronic indwelling Worthy catheter secondary to history of prostate cancer status post i prostatectomy with obstructive pathology, failed outpatient antibiotic therapy attempts: maintain on IV meropenem and IV vancomycin based on previous cultures to be cautious with de-escalation once resulted sensitivities and speciation. Bld cx x 2 obtained in the ED. out of town and will return on 02/28. Still awaiting on cultures, but he will need to have suprapubic catheter changed. UCx showed GNR,mixed GPO continue meropenem. Recent URI type symptoms: respiratory panel negative. CHRIS: Admission creatinine was1.26, now up to 1.72. Will DC vancomycyin as GPO on UCx are only 11-25k an not a true pathogen. IVF. Monitor. Chronic conditions: Chronic Kidney Disease Stage II versus stage III unclear subtype, uncertain as vacillates: Admission BUN/Cr 20/1.34, GFR 55 although GFR has vacillated between stage II and stage III, baseline renal function 1.0-1.3 although has vacillated, repeat BMP in AM. Chronic normocytic anemia: Admission globin 10.9, MCV 86.1, baseline hemoglobin more recently 10-11, stable, continue to trend. History of TIA: Will continue asa, not on statin, holding HTN regiment as noted. Anxiety and depression: Noted history, per current list does not appear to be on any regimen, clarifying to be certain. Encouraged continued follow-up outpatient as previously arranged hypertension: BP upon presentation low, improving with IV fluids, will hold all hypertensive regimens, add back once appropriate. Hyperlipidemia: DVT prophylaxis: Lovenox. DW patient's at bedside. Charges/Coding Visit Charges Inpatient E&M: 90193 Subs Hosp L2
[2025-02-27] MEDS: Albuterol 2.5 MG/3 ML VIAL.NEB. INHALATION ×2 (08:24→20:28)
[2025-02-27] MEDS: 0.9% Normal Saline (1000mL) 1,000 ML 150 ML IV (09:09)
[2025-02-27] MEDS: 0.9% Saline Lock 10 ML Syringe IV ×2 (20:19→22:09)
--- NOTE | 2025-02-27 21:21 | PCM.HOSP.N ---
Hospitalist Note Noted worsening thrombocytopenia; platelets 185 on admission, now down to 57 as of today. D/C'd enoxaparin sodium 40mg daily. Order placed to apply SCDs.
[2025-02-28] VITALS (8 sets, daily range): BP systolic 99–160; BP diastolic 54–87; PULSE 93–112; RESP 18–28; TEMP 36.4–37.5; O2SAT 95–97; BMI 29.9
[2025-02-28] MEDS: guaiFENesin 10 ML UDC (200MG/10ML) 20 ML PO ×2 (00:33→21:40)
[2025-02-28] MEDS: Meropenem 1 GM in 0.9% Normal Saline (100mL MB+) 100 ML IV (05:05)
[2025-02-28] MEDS: Albuterol 2.5 MG/3 ML VIAL.NEB. INHALATION ×2 (05:35→11:22)
[2025-02-28 05:59] LABS: Hematocrit 26.8 % (40-54); Hemoglobin 9.5 g/dL (13.0-16.5); Immature Granulocytes Count 0.010 X10^3/uL (0.0-0.0); Mean Corp Hgb Conc 35.4 g/dL (32-36); Mean Corpuscular Volume 85.9 fL (80-94); Mean Platelet Vol. 12.0 fl (6.2-12.0); NRBC Flagged by Analyzer 0 % (0-5); POSITIVE COUNT YES; POSITIVE DIFFERENTIAL YES; POSITIVE MORPHOLOGY YES; Platelet Count 53 K/mm3 (150-450); RBC Distribution Width CV 14.8 % (11.6-14.6); RBC Distribution Width SD 46.4 fl (35.1-43.9); Red Blood Count 3.12 M/mm3 (4.6-6.2); White Blood Count 2.0 K/mm3 (4.4-11.0)
[2025-02-28 06:01] LABS: Differential Indicated SCAN CRITERIA MET
[2025-02-28 06:06] LABS: Allen Test Negative; Base Excess -4 mmol/L (-2 to +2); FI02 3.0; PO2 72 mmHG (75-100); SITE R Radial; SO2 96 % (95-99)
[2025-02-28 06:35] LABS: Anion Gap 11 (5-15); BUN 35 mg/dL (4-19); BUN/Creat Ratio 14.2 RATIO (10-20); Calcium,Total 7.1 mg/dL (7.6-11.0); Carbon Dioxide 15.6 mmol/L (21.0-32.0); Chloride 105 mmol/L (98-108); Estimated Creatinine Clearance 28.73 ml/min (50-250); Glucose 101 mg/dL (70-99); Potassium 4.1 mmol/L (3.3-5.1)
--- NOTE | 2025-02-28 06:35 | RAD_ITS ---
PROCEDURE: CHEST 1 VIEW (PORTABLE) 02/28/2025 REASON FOR EXAM: RESPIRATORY CHANGE TECHNIQUE: Frontal view of the chest. COMPARISON: 02/24/2025. FINDINGS: Interval appearance of bilateral basilar atelectatic pulmonary changes. There is no demonstrated pleural abnormality. Normal heart and pericardium. Normal mediastinum and [place]. Normal visualized pulmonary arteries. Normal visualized aortic arch and descending thoracic aorta. Normal visualized thoracic spine. Normal visualized ribs, clavicles, and shoulders. There is no demonstrated abnormality of the visualized soft tissue structures of the upper abdomen. RAD/Chest 1 View (Portable) IMPRESSION: Interval appearance of bilateral basilar atelectatic pulmonary changes. [facility]
[2025-02-28 06:47] LABS: Differential Comment SCANNED
--- NOTE | 2025-02-28 07:26 | PCM.CONS.GEN ---
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 I assume that cultures are pending continue with broad-spectrum antibiotics I flushed the catheter today and flushes well it is draining well there is no reason to change it continue with broad-spectrum antibiotics of course narrow the antibiotic once cultures come back could be mixed growth? He can follow-up in my office after discharge from the hospital for neck suprapubic catheter change. 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 Wears glasses Arthritis Non-smoker Home Medications ?Medication ?Instructions ?Recorded ?Last Taken ?Type amlodipine 10 mg tablet 10 mg PO DAILY BLOOD PRESSURE 12/08/18 02/24/25 History lisinopril 40 mg tablet 40 mg PO DAILY BLOOD PRESSURE 12/08/18 02/23/25 History terazosin 5 mg capsule 5 mg PO QPM BLOOD PRESSURE 12/08/18 02/23/25 History multivit,Ca,min-iron 8 mg-folic 1 tab PO DAILY SUPPLEMENT 11/04/23 02/24/25 History acid 200 mcg-lycopene 600 mcg tablet (A Thru Z Men's Ultimate) L.acidophil,salivari-Bifido 1 cap PO DAILY Bowel health 02/24/25 02/24/25 History bifidum-Strep thermoph 175 mg capsule ciprofloxacin HCl 500 mg tablet 500 mg PO BID 10 days #20 tabs 02/24/25 02/24/25 Rx (Cipro) Allergy/AdvReac Type Severity Reaction Status Date / Time losartan Allergy Mild Rash Verified 02/24/25 23:38 Sulfa (Sulfonamide Allergy Hives Verified 02/24/25 23:38 Antibiotics) atenolol AdvReac Mild WEAKNESS Verified 02/24/25 23:38 hydrochlorothiazide AdvReac Mild UNKNOWN Verified 02/24/25 23:38 indomethacin (From Indocin) AdvReac Mild GI upset Verified 02/24/25 23:38 Family History (Updated 02/24/25 @ 23:[address] Feli Madden MD) Mother , secondary to complications with c-difficile colitis. No medical history per son. No problems noted. Father , in MVA. No medical history per son. No problems noted. Family History no significant family his Surgical History History of left knee replacement Hx of radical prostatectomy Hx of cystoscopy Hx of colonoscopy Social History (Updated 02/24/25 @ 23:[address] Feli Madden MD) household members: spouse housing: house Smoking Status: Never smoker alcohol intake: never substance use type: does not use Lab / Micro Data 02/28/25 04:50 02/28/25 04:50 Labs: Laboratory Results - last 24 hr 02/28/25 04:50: WBC 2.0 L, RBC 3.12 L, Hgb 9.5 L, Hct 26.8 L, MCV 85.9, MCH 30.4, MCHC 35.4, RDW Std Deviation 46.4 H, RDW Coeff of Jerry 14.8 H, Plt Count 53 L, MPV 12.0, Immature Gran % (Auto) 0.500, Neut % (Auto) 78.3 H, Lymph % (Auto) 9.1 L, [place] % (Auto) 2.0, Eos % (Auto) 9.6 H, Baso % (Auto) 0.5, Absolute Neuts (auto) 1.6 L, Absolute Lymphs (auto) 0.18 L, Nucleated RBC % 0, Differential Comment SCANNED, Sodium 131 L, Potassium 4.1, Chloride 105, Carbon Dioxide 15.6 L, Anion Gap 11, BUN 35 H, Creatinine 2.49 H, Estim Creat Clear Calc 28.73 L, Est GFR (MDRD) Non-Af 26 L, BUN/Creatinine Ratio 14.2, Glucose 101 H, Calcium 7.1 L Micro: Microbiology 02/24/25 22:27 Blood Culture (Wb) - Left Forearm Blood Culture - Preliminary No growth in 48 hours. 02/24/25 22:00 Blood Culture (Wb) - Anticubital Right Blood Culture - Preliminary No growth in 48 hours. ABG Data ABG results: ABG 02/28/25 06:02 Specimen Type ART Sample Site R Radial pH 7.48 H Bicarbonate Actual 19.5 L Total CO2 20 Base Excess -4 L O2 Saturation 96 O2 % 3.0 ABG pCO2 26.5 L ABG pO2 72 L Talon Test Negative O2 Delivery Device Cannula Vent Mode Not entered
--- NOTE | 2025-02-28 08:40 | PN.HOSP_ITS ---
Reason for Visit Chief Complaint: Recent UTI Dx, worsening F/chills, only 1 dose abx therapy. Subjective Subjective feeling ok. Objective Data Objective Data Vital Signs: Vital Signs Temp Pulse Resp BP Pulse Ox O2 Del Method O2 Flow Rate 36.4 C L 112 H 28 H 122/71 H 97 Nasal Cannula 3 02/28/25 05:15 02/28/25 05:36 02/28/25 05:36 02/28/25 05:15 02/28/25 05:36 02/28/25 05:36 02/28/25 05:36 Oxygen Flow Rate (L/min) 3 Oxygen Delivery Method Nasal Cannula Weight: 94.9 kg Body Mass Index (BMI) 29.9 Intake & Output: Intake and Output for Last 24 Hours 02/26/25 02/27/25 02/28/25 23:59 23:59 23:59 Intake Total 1709.25 / 1709.25 2370 / 2370 300 / 300 Output Total 1250 / 1250 1400 / 1400 200 / 200 Balance 459.25 / 459.25 970 / 970 100 / 100 Lab / Micro Data 02/28/25 04:50 02/28/25 04:50 Labs: Laboratory Results - last 24 hr 02/28/25 04:50: WBC 2.0 L, RBC 3.12 L, Hgb 9.5 L, Hct 26.8 L, MCV 85.9, MCH 30.4, MCHC 35.4, RDW Std Deviation 46.4 H, RDW Coeff of Jerry 14.8 H, Plt Count 53 L, MPV 12.0, Immature Gran % (Auto) 0.500, Neut % (Auto) 78.3 H, Lymph % (Auto) 9.1 L, [place] % (Auto) 2.0, Eos % (Auto) 9.6 H, Baso % (Auto) 0.5, Absolute Neuts (auto) 1.6 L, Absolute Lymphs (auto) 0.18 L, Nucleated RBC % 0, Differential Comment SCANNED, Sodium 131 L, Potassium 4.1, Chloride 105, Carbon Dioxide 15.6 L, Anion Gap 11, BUN 35 H, Creatinine 2.49 H, Estim Creat Clear Calc 28.73 L, E st GFR (MDRD) Non-Af 26 L, BUN/Creatinine Ratio 14.2, Glucose 101 H, Calcium 7.1 L Micro: Microbiology 02/24/25 22:27 Blood Culture (Wb) - Left Forearm Blood Culture - Preliminary No growth in 48 hours. 02/24/25 22:00 Blood Culture (Wb) - Anticubital Right Blood Culture - Preliminary No growth in 48 hours. 02/25/25 00:36 Mucosa - Nasopharyngeal Respiratory Panel (PCR) - Final ABG Data ABG results: ABG 02/28/25 06:02 Specimen Type ART Sample Site R Radial pH 7.48 H Bicarbonate Actual 19.5 L Total CO2 20 Base Excess -4 L O2 Saturation 96 O2 % 3.0 ABG pCO2 26.5 L ABG pO2 72 L Talon Test Negative O2 Delivery Device Cannula Vent Mode Not entered Radiography Diagnostic Testing: Radiology Impression Chest X-Ray 02/28/25 06:35 IMPRESSION: Interval appearance of bilateral basilar atelectatic pulmonary changes. Reading Location: [place] [id number] Physical Exam Const alert and no apparent distress HEENT head/scalp atraumatic and moist oral mucous membranes Resp normal respiratory effort, no retractions, no use of accessory muscles and clear to auscultation bilaterally Cardio regular rate, regular rhythm, S1 normal heart sound and S2 normal heart sound GI normal to inspection, nondistended, normoactive bowel sounds, soft to palpation, non-tender and non-distended Neuro Sensorium / Orientation: awake, alert, oriented to person and oriented to place Assessment & Plan Assessment/Plan (1) UTI (urinary tract infection): PLAN: Plan Acute Complicated Urinary Tract Infection * secondary to chronic indwelling Worthy catheter secondary to history of prostate cancer status post i prostatectomy with obstructive pathology, failed outpatient antibiotic therapy attempts: * maintain on IV meropenem and IV vancomycin based on previous cultures to be cautious with de-escalation once resulted sensitivities and speciation. Bld cx x 2 obtained in the ED. * declined to change catheter. I spoke with Dr. Gilliland who said the catheter was recently changed and can hold off for now (has routine catheter changes). * UCx showed 80,000-100,000 CFU's of [place] w possible carbapenemase producing enterobacteriaceae, achromobacter. 25,000-50,000 enterococcus and corynebacterium striatum. * continue meropenem add ceftriaxone. * consult ID for recommendations for antibiotic coverage and if adjustments need to be made given the ongoing eosinophilia. Recent URI type symptoms: * respiratory panel negative. CHRIS: * Admission creatinine was1.26, now up to 2.49 * Vancomycyin dc'd 02/27. DC ketorolac (he received 2 dose of 15mg on 02/27) * ATN, prerenal v AIN * Check urine studies. Check renal ultrasound. Consult nephrology. Eosinophilia * unclear etiology, but has gone up during admission. Vancomycin DC'd 02/27 and creatinine has continued to go up. Unclear if related to meropenem, however, given his pathogens and allergies and CHRIS, could not be changed to Bactrim (sulfa allergy). Will have ID review abx to see if meropenem could be changed. pancytopenia * particularly thromboytopenia. Has been declining since admission. DW Dr. Leiva, he feels that this is drug-induced (possibly meropenem). He does not feel that this is TTP given that the platelets have gone down since admission. * Hold enoxaparin/heparin. Doubt HIT as platelets have been going down since admission. Chronic conditions: * Chronic Kidney Disease Stage II versus stage III unclear subtype, uncertain as vacillates: Admission BUN/Cr 20/1.34, GFR 55 although GFR has vacillated between stage II and stage III, baseline renal function 1.0-1.3 although has vacillated, repeat BMP in AM. * Chronic normocytic anemia: Admission globin 10.9, MCV 86.1, baseline hemoglobin more recently 10-11, stable, continue to trend. * History of TIA: Will continue asa, not on statin, holding HTN regiment as noted. * Anxiety and depression: Noted history, per current list does not appear to be on any regimen, clarifying to be certain. Encouraged continued follow-up outpatient as previously arranged * hypertension: BP upon presentation low, improving with IV fluids, will hold all hypertensive regimens, add back once appropriate. * Hyperlipidemia: DVT prophylaxis: Lovenox. Greater than 60 minutes spent in the patient's care and discussion with the patient and his , discussing with their specialist in regards to oncology, infectious disease and urology. Charges/Coding Visit Charges Inpatient E&M: 18643 Subs Hosp L3
--- NOTE | 2025-02-28 08:54 | US_ITS ---
PROCEDURE: KIDNEY AND BLADDER 02/28/2025 REASON FOR EXAM: CHRIS TECHNIQUE: Procedure Code: USKI Modality: US Procedure: KIDNEY AND BLADDER COMPARISON: CT abdomen and pelvis without contrast 02/14/2023 FINDINGS: Kidneys: Normal renal sizes, parenchymal thicknesses, and echotextures. [place]: No hydronephrosis visualized within bilateral kidneys. Cysts or Masses: Right upper pole renal cyst measuring 1.2 x 1.3 x 1.4 cm. RIGHT Kidney Size: 11.6 x 5.8 x 5.6 Cortical Thickness (if discernible): 1.2 cm (>6mm is normal) LEFT Kidney Size: 11.6 x 5.1 x 5.2 Cortical Thickness (if discernible): 1.1 cm (>6mm is normal) Bladder: Limited evaluation of bladder due to underdistention with Worthy's catheter in place. US/Kidney and Bladder IMPRESSION: Unremarkable renal ultrasound. No sonographic evidence of hydronephrosis. Simple right upper pole renal cyst measuring 1.4 cm. Reading Location: [id number]
--- NOTE | 2025-02-28 10:50 | PCM.CONS.GEN ---
Assessment & Plan Assessment/Plan (1) Catheter-associated urinary tract infection: PLAN: Ucx with possible CRE providencia, achromobacter, e faecalis, and corynebacterium. Renal u/s pending. Suprapubic catheter in place. Will cover with cipro for the possible CRE and zosyn for the other organisms. Ideally would change catheter while on these abx to try to decrease colonization. Will follow, thank you, d/w Dr. Horner. (2) CHRIS (acute kidney injury): (3) Chronic renal insufficiency: HPI Consult Data Date of Consult: 02/28/25 HPI Narrative Reason for Consultation: CRE infection HPI Narrative: BARBARA PEÑA, is a 79 M with CKD, suprapubic catheter s/p prostate cancer requiring prostatectomy, recurrent uti, presented 02/24 with 1-2 days progressive altered mental status, headache, chills, drenching sweats. No abd pain, no flank pain. No redness or drainage around catheter. Gets uti about [id number]. Admitted on vanc and mark. Now with resistant organisms in urine and CHRIS. Feeling better overall. Full ROS performed and neg except as noted above. 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 Wears glasses Arthritis Non-smoker Home Medications ?Medication ?Instructions ?Recorded ?Last Taken ?Type amlodipine 10 mg tablet 10 mg PO DAILY BLOOD PRESSURE 12/08/18 02/24/25 History lisinopril 40 mg tablet 40 mg PO DAILY BLOOD PRESSURE 12/08/18 02/23/25 History terazosin 5 mg capsule 5 mg PO QPM BLOOD PRESSURE 12/08/18 02/23/25 History multivit,Ca,min-iron 8 mg-folic 1 tab PO DAILY SUPPLEMENT 11/04/23 02/24/25 History acid 200 mcg-lycopene 600 mcg tablet (A Thru Z Men's Ultimate) L.acidophil,salivari-Bifido 1 cap PO DAILY Bowel health 02/24/25 02/24/25 History bifidum-Strep thermoph 175 mg capsule ciprofloxacin HCl 500 mg tablet 500 mg PO BID 10 days #20 tabs 02/24/25 02/24/25 Rx (Cipro) Allergy/AdvReac Type Severity Reaction Status Date / Time losartan Allergy Mild Rash Verified 02/24/25 23:38 Sulfa (Sulfonamide Allergy Hives Verified 02/24/25 23:38 Antibiotics) atenolol AdvReac Mild WEAKNESS Verified 02/24/25 23:38 hydrochlorothiazide AdvReac Mild UNKNOWN Verified 02/24/25 23:38 indomethacin (From Indocin) AdvReac Mild GI upset Verified 02/24/25 23:38 Family History (Updated 02/24/25 @ 23:[address] Feli Madden MD) Mother , secondary to complications with c-difficile colitis. No medical history per son. No problems noted. Father , in MVA. No medical history per son. No problems noted. Family History no significant family his Surgical History History of left knee replacement Hx of radical prostatectomy Hx of cystoscopy Hx of colonoscopy Social History (Updated 02/24/25 @ 23:[address] Feli Madden MD) household members: spouse housing: house Smoking Status: Never smoker alcohol intake: never substance use type: does not use Physical Exam Const alert, oriented x3 and no apparent distress General Appearance: cooperative HEENT normocephalic and head/scalp atraumatic Eyes PERRL and EOMs intact bilaterally Neck supple and No nodes Resp normal air movement and clear to auscultation bilaterally Cardio regular rate and regular rhythm GI soft to palpation, non-tender and non-distended GI Narrative: no flank pain Extremity General Extremity: edema Skin no rashes or lesions noted Neuro CN's II-XII intact bilaterally Lab / Micro Data Attestation: I reviewed the patient's lab results. 02/28/25 04:50 02/28/25 04:50 Labs: Laboratory Results - last 24 hr 02/28/25 04:50: WBC 2.0 L, RBC 3.12 L, Hgb 9.5 L, Hct 26.8 L, MCV 85.9, MCH 30.4, MCHC 35.4, RDW Std Deviation 46.4 H, RDW Coeff of Jerry 14.8 H, Plt Count 53 L, MPV 12.0, Immature Gran % (Auto) 0.500, Neut % (Auto) 78.3 H, Lymph % (Auto) 9.1 L, [place] % (Auto) 2.0, Eos % (Auto) 9.6 H, Baso % (Auto) 0.5, Absolute Neuts (auto) 1.6 L, Absolute Lymphs (auto) 0.18 L, Nucleated RBC % 0, Differential Comment SCANNED, Sodium 131 L, Potassium 4.1, Chloride 105, Carbon Dioxide 15.6 L, Anion Gap 11, BUN 35 H, Creatinine 2.49 H, Estim Creat Clear Calc 28.73 L, Est GFR (MDRD) Non-Af 26 L, BUN/Creatinine Ratio 14.2, Glucose 101 H, Calcium 7.1 L 02/28/25 09:45: Ur Random Sodium 25, Urine Creatinine 183.00 Micro: Microbiology 02/24/25 22:27 Blood Culture (Wb) - Left Forearm Blood Culture - Preliminary No growth in 48 hours. 02/24/25 22:00 Blood Culture (Wb) - Anticubital Right Blood Culture - Preliminary No growth in 48 hours. ABG Data ABG results: ABG 02/28/25 06:02 Specimen Type ART Sample Site R Radial pH 7.48 H Bicarbonate Actual 19.5 L Total CO2 20 Base Excess -4 L O2 Saturation 96 O2 % 3.0 ABG pCO2 26.5 L ABG pO2 72 L Talon Test Negative O2 Delivery Device Cannula Vent Mode Not entered Imaging Radiology Impression Chest X-Ray 02/28/25 06:35 IMPRESSION: Interval appearance of bilateral basilar atelectatic pulmonary changes. Reading [facility] [id number]
[2025-02-28] MEDS: Piperacil/Tazobactam 3.375 GM in 0.9% Normal Saline (50mL MB+) 50 ML IV ×2 (10:52→21:29)
[2025-02-28] MEDS: 0.9% Saline Lock 10 ML Syringe IV (10:52)
--- NOTE | 2025-02-28 16:29 | PCM.CONS.R ---
Assessment & Plan Assessment/Plan (1) Chronic renal insufficiency: (2) CHRIS (acute kidney injury): PLAN: Baseline Cr is around 1.2 -1.3. Cr was close to baseline on admit Renal US ok supra pubic catheter in place increasing eosinophilia in CBC. no rash. no itching. thrombocytopenia. as per my discussion with hospitalist, hematology has been consulted. doubt its TTP since platelet count is normal on admit off heparin products for now other than a kidney biopsy no other way to rule out AIN for sure. however ID on consult today and imipenem has been taken off patient says only allergy he has is sulfa. took penicillin products without issues in the past since he is going off penems now, can monitor labs I dont think i would do steroids for suspected AIN - presence of drug resistant infections can monitor how cr trends with new antibiotics HPI Consult Data Date of Consult: 02/28/25 HPI Narrative Reason for Consultation: CHRIS HPI Narrative: BARBARA PEÑA, is a 79 M who presents to the hospital with UTI/pyelo. history of prostrate ca, s/p resection. ended up getting stricture requiring supra pubic catheter. admitted with catheter associated UTI/pyelo. nephrology on consult due to CHRIS. Cr baseline 1.3 or so. currently denies any complaints except for left arm edema. breathing is ok. 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 Wears glasses Arthritis Non-smoker Home Medications ?Medication ?Instructions ?Recorded ?Last Taken ?Type amlodipine 10 mg tablet 10 mg PO DAILY BLOOD PRESSURE 12/08/18 02/24/25 History lisinopril 40 mg tablet 40 mg PO DAILY BLOOD PRESSURE 12/08/18 02/23/25 History terazosin 5 mg capsule 5 mg PO QPM BLOOD PRESSURE 12/08/18 02/23/25 History multivit,Ca,min-iron 8 mg-folic 1 tab PO DAILY SUPPLEMENT 11/04/23 02/24/25 History acid 200 mcg-lycopene 600 mcg tablet (A Thru Z Men's Ultimate) L.acidophil,salivari-Bifido 1 cap PO DAILY Bowel health 02/24/25 02/24/25 History bifidum-Strep thermoph 175 mg capsule ciprofloxacin HCl 500 mg tablet 500 mg PO BID 10 days #20 tabs 02/24/25 02/24/25 Rx (Cipro) Allergy/AdvReac Type Severity Reaction Status Date / Time losartan Allergy Mild Rash Verified 02/24/25 23:38 Sulfa (Sulfonamide Allergy Hives Verified 02/24/25 23:38 Antibiotics) atenolol AdvReac Mild WEAKNESS Verified 02/24/25 23:38 hydrochlorothiazide AdvReac Mild UNKNOWN Verified 02/24/25 23:38 indomethacin (From Indocin) AdvReac Mild GI upset Verified 02/24/25 23:38 Family History (Updated 02/24/25 @ 23:[address] Feli Madden MD) Mother , secondary to complications with c-difficile colitis. No medical history per son. No problems noted. Father , in MVA. No medical history per son. No problems noted. Family History no significant family his Surgical History History of left knee replacement Hx of radical prostatectomy Hx of cystoscopy Hx of colonoscopy Social History (Updated 02/24/25 @ 23:[address] Feli Madden MD) household members: spouse housing: house Smoking Status: Never smoker alcohol intake: never substance use type: does not use ROS ROS Narrative negative except above Physical Exam Narrative Alert awake oriented x 3 no obvious distress no pallor no icterus no JVD s1s2 no murmurs lungs clear abdomen soft no organomegaly Lab / Micro Data 02/28/25 04:50 02/28/25 04:50 Labs: Laboratory Results - last 24 hr 02/28/25 04:50: WBC 2.0 L, RBC 3.12 L, Hgb 9.5 L, Hct 26.8 L, MCV 85.9, MCH 30.4, MCHC 35.4, RDW Std Deviation 46.4 H, RDW Coeff of Jerry 14.8 H, Plt Count 53 L, MPV 12.0, Immature Gran % (Auto) 0.500, Neut % (Auto) 78.3 H, Lymph % (Auto) 9.1 L, [place] % (Auto) 2.0, Eos % (Auto) 9.6 H, Baso % (Auto) 0.5, Absolute Neuts (auto) 1.6 L, Absolute Lymphs (auto) 0.18 L, Nucleated RBC % 0, Differential Comment SCANNED, Sodium 131 L, Potassium 4.1, Chloride 105, Carbon Dioxide 15.6 L, Anion Gap 11, BUN 35 H, Creatinine 2.49 H, Estim Creat Clear Calc 28.73 L, Est GFR (MDRD) Non-Af 26 L, BUN/Creatinine Ratio 14.2, Glucose 101 H, Calcium 7.1 L 02/28/25 09:45: Ur Random Sodium 25, Urine Creatinine 183.00 ABG Data ABG results: ABG 02/28/25 06:02 Specimen Type ART Sample Site R Radial pH 7.48 H Bicarbonate Actual 19.5 L Total CO2 20 Base Excess -4 L O2 Saturation 96 O2 % 3.0 ABG pCO2 26.5 L ABG pO2 72 L Talon Test Negative O2 Delivery Device Cannula Vent Mode Not entered Imaging Radiology Impression Chest X-Ray 02/28/25 06:35 IMPRESSION: Interval appearance of bilateral basilar atelectatic pulmonary changes. [facility] 02/28/25 08:54 IMPRESSION: Unremarkable renal ultrasound. No sonographic evidence of hydronephrosis. Simple right upper pole renal cyst measuring 1.4 cm. Reading Location: [id number]
[2025-03-01] VITALS (7 sets, daily range): BP systolic 110–124; BP diastolic 63–88; PULSE 85–134; RESP 16–24; TEMP 36.5–37.7; O2SAT 94–98; BMI 29.9
[2025-03-01 05:31] LABS: Hematocrit 26.8 % (40-54); Hemoglobin 9.4 g/dL (13.0-16.5); Immature Granulocytes Count 0.020 X10^3/uL (0.0-0.0); Mean Corp Hgb Conc 35.1 g/dL (32-36); Mean Corpuscular Volume 85.6 fL (80-94); Mean Platelet Vol. 12.8 fl (6.2-12.0); NRBC Flagged by Analyzer 0 % (0-5); POSITIVE COUNT YES; POSITIVE DIFFERENTIAL YES; POSITIVE MORPHOLOGY YES; RBC Distribution Width CV 15.0 % (11.6-14.6); RBC Distribution Width SD 47.2 fl (35.1-43.9); Red Blood Count 3.13 M/mm3 (4.6-6.2); White Blood Count 2.1 K/mm3 (4.4-11.0)
[2025-03-01 05:33] LABS: Differential Indicated SCAN CRITERIA MET; Platelet Count 46 K/mm3 (150-450)
[2025-03-01 06:07] LABS: Differential Comment SCANNED
[2025-03-01] MEDS: guaiFENesin 10 ML UDC (200MG/10ML) 20 ML PO ×2 (06:15→18:18)
[2025-03-01 06:16] LABS: Anion Gap 12 (5-15); BUN 47 mg/dL (4-19); BUN/Creat Ratio 14.1 RATIO (10-20); Calcium,Total 7.3 mg/dL (7.6-11.0); Carbon Dioxide 14.8 mmol/L (21.0-32.0); Chloride 103 mmol/L (98-108); Estimated Creatinine Clearance 21.51 ml/min (50-250); Glucose 101 mg/dL (70-99); Potassium 4.2 mmol/L (3.3-5.1)
--- NOTE | 2025-03-01 09:08 | PN.HOSP_ITS ---
Reason for Visit Chief Complaint: Recent UTI Dx, worsening F/chills, only 1 dose abx therapy. Subjective Subjective Confusion today. Objective Data Objective Data Vital Signs: Vital Signs Temp Pulse Resp BP Pulse Ox O2 Del Method O2 Flow Rate 36.5 C L 85 16 110/63 96 Room Air 2 03/01/25 03:48 03/01/25 03:48 03/01/25 03:48 03/01/25 03:48 03/01/25 03:48 03/01/25 03:48 02/28/25 21:25 Oxygen Flow Rate (L/min) 2 Oxygen Delivery Method Room Air Weight: 94.5 kg Body Mass Index (BMI) 29.9 Intake & Output: Intake and Output for Last 24 Hours 02/27/25 02/28/25 03/01/25 23:59 23:59 23:59 Intake Total 2370 / 2370 830 / 830 50 / 50 Output Total 1400 / 1400 500 / 700 550 / 550 Balance 970 / 970 330 / 130 -500 / -500 Lab / Micro Data 03/01/25 05:00 03/01/25 05:00 Labs: Laboratory Results - last 24 hr 02/28/25 09:45: Ur Random Sodium 25, Urine Creatinine 183.00 03/01/25 05:00: WBC 2.1 L, RBC 3.13 L, Hgb 9.4 L, Hct 26.8 L, MCV 85.6, MCH 30.0, MCHC 35.1, RDW Std Deviation 47.2 H, RDW Coeff of Jerry 15.0 H, Plt Count 46 L*, MPV 12.8 H, Immature Gran % (Auto) 1.000 H, Neut % (Auto) 72.7 H, Lymph % (Auto) 12.9 L, [place] % (Auto) 4.3, Eos % (Auto) 8.6 H, Baso % (Auto) 0.5, A bsolute Neuts (auto) 1.5 L, Absolute Lymphs (auto) 0.27 L, Nucleated RBC % 0, Differential Comment SCANNED, Platelet Estimate MKD DEC, Sodium 129 L, Potassium 4.2, Chloride 103, Carbon Dioxide 14.8 L, Anion Gap 12, BUN 47 H, Creatinine 3.32 H, Estim Creat Clear Calc 21.51 L, Est GFR (MDRD) Non-Af 18 L, BUN/Creatinine Ratio 14.1, Glucose 101 H, Calcium 7.3 L Micro: Microbiology 02/24/25 22:27 Blood Culture (Wb) - Left Forearm Blood Culture - Preliminary No growth in 48 hours. 02/24/25 22:00 Blood Culture (Wb) - Anticubital Right Blood Culture - Preliminary No growth in 48 hours. 02/25/25 00:36 Mucosa - Nasopharyngeal Respiratory Panel (PCR) - Final Radiography Diagnostic Testing: Radiology Impression Renal Ultrasound 02/28/25 08:54 IMPRESSION: Unremarkable renal ultrasound. No sonographic evidence of hydronephrosis. Simple right upper pole renal cyst measuring 1.4 cm. Reading Location: [facility] Physical Exam Const no apparent distress Orientation / Consciousness: confused HEENT head/scalp atraumatic and moist oral mucous membranes Resp normal respiratory effort, no retractions, no use of accessory muscles and clear to auscultation bilaterally Cardio regular rate, regular rhythm, S1 normal heart sound and S2 normal heart sound GI normal to inspection, nondistended, normoactive bowel sounds, soft to palpation, non-tender and non-distended Extremity General Extremity: edema Neuro Sensorium / Orientation: awake Assessment & Plan Assessment/Plan (1) UTI (urinary tract infection): PLAN: Plan Acute Complicated Urinary Tract Infection * secondary to chronic indwelling Worthy catheter secondary to history of prostate cancer status post i prostatectomy with obstructive pathology, failed outpatient antibiotic therapy attempts: * maintain on IV meropenem and IV vancomycin based on previous cultures to be cautious with de-escalation once resulted sensitivities and speciation. Bld cx x 2 obtained in the ED. * declined to change catheter. I spoke with Dr. Gilliland who said the catheter was recently changed and can hold off for now (has routine catheter changes). * UCx showed 80,000-100,000 CFU's of [place] w possible carbapenemase producing enterobacteriaceae, achromobacter. 25,000-50,000 enterococcus and corynebacterium striatum. * on cipfloxacin and pip/tazo Recent URI type symptoms: * respiratory panel negative. CHRIS: * Admission creatinine was1.26, now up to 3.32 * Vancomycyin dc'd 02/27. DC ketorolac (he received 2 dose of 15mg on 02/27) * US negative * FENa 0.26% * Prerenal v AIN. * Nephrology following. Eosinophilia * unclear etiology, but has gone up during admission, but down slightly today. . Vancomycin DC'd 02/27 and creatinine has continued to go up. Unclear if related to meropenem, however, given his pathogens and allergies and CHRIS, could not be changed to Bactrim (sulfa allergy). Meropenem d/c'd and changed to pip/tazo on 02/28 pancytopenia * particularly thrombocytopenia. Has been declining since admission. DW Dr. Leiva, he feels that this is drug-induced (possibly meropenem). He does not feel that this is TTP given that the platelets have gone down since admission. * Hold enoxaparin/heparin. Doubt HIT as platelets have been going down since admission. Encephalopathy * metabolic * cannot rule out uremia. * monitor Chronic conditions: * Chronic Kidney Disease Stage II versus stage III unclear subtype, uncertain as vacillates: Admission BUN/Cr 20/1.34, GFR 55 although GFR has vacillated between stage II and stage III, baseline renal function 1.0-1.3 although has vacillated, repeat BMP in AM. * Chronic normocytic anemia: Admission globin 10.9, MCV 86.1, baseline hemoglobin more recently 10-11, stable, continue to trend. * History of TIA: Will continue asa, not on statin, holding HTN regiment as noted. * Anxiety and depression: Noted history, per current list does not appear to be on any regimen, clarifying to be certain. Encouraged continued follow-up outpatient as previously arranged * hypertension: BP upon presentation low, improving with IV fluids, will hold all hypertensive regimens, add back once appropriate. * Hyperlipidemia: DVT prophylaxis: Lovenox. Charges/Coding Visit Charges Inpatient E&M: 15818 Subs Hosp L2
[2025-03-01] MEDS: Piperacil/Tazobactam 3.375 GM in 0.9% Normal Saline (50mL MB+) 50 ML IV ×2 (09:32→22:51)
[2025-03-01] MEDS: 0.9% Saline Lock 10 ML Syringe IV ×2 (09:33→22:51)
--- NOTE | 2025-03-01 10:08 | PCM.PN.ID ---
Physical Exam Narrative Feeling better, but some increased confusion per . No fever, no n/v/d. Const alert and no apparent distress General Appearance: cooperative Resp normal air movement and clear to auscultation bilaterally Cardio regular rate and regular rhythm GI soft to palpation, non-tender and non-distended Skin no rashes or lesions noted ID ID: Route of nutrition/ use of supplements: [] Nutritional Intake: [] IV Site: [] Worthy Catheter: [] Assessment & Plan Assessment/Plan (1) Catheter-associated urinary tract infection: PLAN: Ucx with possible CRE providencia, achromobacter, e faecalis, and corynebacterium. Eos slightly improved, cr worse today. Suprapubic catheter in place. Will cont with cipro for the possible CRE and zosyn for the other organisms. Will follow, d/w Dr. Horner. (2) CHRIS (acute kidney injury): (3) Chronic renal insufficiency:
--- NOTE | 2025-03-01 12:49 | CT_ITS ---
PROCEDURE: BRAIN/HEAD WITHOUT CONTRAST 03/01/2025 REASON FOR EXAM: CONFUSION TECHNIQUE: Procedure Code: CTBR Modality: CT Procedure: BRAIN/HEAD WITHOUT CONTRAST Coronal and Sagittal reconstruction series were provided. One or more dose reduction techniques were used (e.g., Automated exposure control, adjustment of the mA and/or kV according to patient size, use of iterative reconstruction technique. RADIATION DOSE SUMMARY: CTDlvol: 44.99 mGy DLP: 812.90 mGycm COMPARISON: 03/01/2023 FINDINGS: BRAIN: No acute intraparenchymal hemorrhage. No mass lesion. No CT evidence for acute territorial infarct. No midline shift or extra-axial collection. Mild diffuse cerebral volume loss. VENTRICLES: No hydrocephalus. ORBITS: The orbits are unremarkable. SINUSES AND MASTOIDS: Minimal right maxillary and bilateral ethmoid sinus mucosal thickening. The mastoid air cells are clear. SOFT TISSUES: No acute abnormality seen. BONES: No acute osseous abnormality seen. OTHER: Calcified carotid siphons and vertebral arteries. CT/Brain/Head without Contrast IMPRESSION: No acute intracranial abnormality. Reading Location: [id number]
--- NOTE | 2025-03-01 14:19 | PN.RENAL_ITS ---
Subjective Subjective looks somewhat worse compared to yesterday. chills. Temp is borderline high. somewhat confused as per . oral ulcers are about the same pain aragon. no edema peripherally. no rash Objective Data Objective Data Vital Signs: Vital Signs Temp Pulse Resp BP Pulse Ox O2 Del Method O2 Flow Rate 99.8 F H 134 H 18 118/69 98 Room Air 3 03/01/25 09:25 03/01/25 09:25 03/01/25 09:25 03/01/25 09:25 03/01/25 09:03/01/25 14:13 03/01/25 09: Oxygen Flow Rate (L/min) 3 Oxygen Delivery Method Room Air Weight: 94.5 kg Body Mass Index (BMI) 29.9 Intake & Output: Intake and Output for Last 24 Hours 02/27/25 02/28/25 03/01/25 23:59 23:59 23:59 Intake Total 2370 / 2370 830 / 830 410 / 410 Output Total 1400 / 1400 500 / 700 950 / 950 Balance 970 / 970 330 / 130 -540 / -540 Lab / Micro Data 03/01/25 05:00 03/01/25 05:00 Labs: Laboratory Results - last 24 hr 03/01/25 05:00: WBC 2.1 L, RBC 3.13 L, Hgb 9.4 L, Hct 26.8 L, MCV 85.6, MCH 30.0, MCHC 35.1, RDW Std Deviation 47.2 H, RDW Coeff of Jerry 15.0 H, Plt Count 46 L*, MPV 12.8 H, Immature Gran % (Auto) 1.000 H, Neut % (Auto) 72.7 H, Lymph % (Auto) 12.9 L, [place] % (Auto) 4.3, Eos % (Auto) 8.6 H, Baso % (Auto) 0.5, A bsolute Neuts (auto) 1.5 L, Absolute Lymphs (auto) 0.27 L, Nucleated RBC % 0, Differential Comment SCANNED, Platelet Estimate MKD DEC, Sodium 129 L, Potassium 4.2, Chloride 103, Carbon Dioxide 14.8 L, Anion Gap 12, BUN 47 H, Creatinine 3.32 H, Estim Creat Clear Calc 21.51 L, Est GFR (MDRD) Non-Af 18 L, BUN/Creatinine Ratio 14.1, Glucose 101 H, Calcium 7.3 L Micro: Microbiology 02/24/25 22:27 Blood Culture (Wb) - Left Forearm Blood Culture - Preliminary No growth in 48 hours. 02/24/25 22:00 Blood Culture (Wb) - Anticubital Right Blood Culture - Preliminary No growth in 48 hours. 02/25/25 00:36 Mucosa - Nasopharyngeal Respiratory Panel (PCR) - Final Radiography Diagnostic Testing: Radiology Impression Brain CT 03/01/25 12:49 IMPRESSION: No acute intracranial abnormality. Reading Location: [facility] Physical Exam Narrative no obvious distress no pallor no icterus no JVD s1s2 no murmurs lungs clear abdomen soft no organomegaly Assessment & Plan Assessment/Plan (1) Chronic renal insufficiency: (2) CHRIS (acute kidney injury): PLAN: Baseline Cr is around 1.2 -1.3. Cr was close to baseline on admit Renal US ok supra pubic catheter in place increasing eosinophilia in CBC. no rash. no itching. thrombocytopenia. as per my discussion with hospitalist, hematology has been consulted. doubt its TTP since platelet count is normal on admit off heparin products for now other than a kidney biopsy no other way to rule out AIN for sure. however ID on consult today and imipenem has been taken off patient says only allergy he has is sulfa. took penicillin products without issues in the past since he is going off penems now, can monitor labs I dont think i would do steroids for suspected AIN - presence of drug resistant infections can monitor how cr trends with new antibiotics 03/01/25. looks worse clinically. chills +. oral ulcers about the same. WBC is about the same. Platelets remain low. Cr higher. bicarbonate low, blood gas reviewed mostly alkalotic/mixed picture. some confusion today as per . dw Dr Horner. Ct head with be obtained. not sure if this is all some form of drug reaction phenomenon. ID note reviewed. case discussed with Dr Horner
[2025-03-01] MEDS: Albuterol 2.5 MG/3 ML VIAL.NEB. INHALATION (23:12)
[2025-03-02 05:33] VITALS: BMI 29.8
[2025-03-02] MEDS: guaiFENesin 10 ML UDC (200MG/10ML) 20 ML PO ×3 (05:34→22:18)
[2025-03-02 05:38] LABS: Hematocrit 24.9 % (40-54); Hemoglobin 8.5 g/dL (13.0-16.5); Immature Granulocytes Count 0.020 X10^3/uL (0.0-0.0); Mean Corp Hgb Conc 34.1 g/dL (32-36); Mean Corpuscular Volume 85.9 fL (80-94); Mean Platelet Vol. 13.4 fl (6.2-12.0); NRBC Flagged by Analyzer 0 % (0-5); POSITIVE COUNT YES; POSITIVE DIFFERENTIAL YES; POSITIVE MORPHOLOGY YES; Platelet Count 57 K/mm3 (150-450); RBC Distribution Width CV 15.1 % (11.6-14.6); RBC Distribution Width SD 48.0 fl (35.1-43.9); Red Blood Count 2.90 M/mm3 (4.6-6.2); White Blood Count 3.0 K/mm3 (4.4-11.0)
[2025-03-02 05:45] VITALS: BP 156/72; PULSE 123; RESP 26; TEMP 37.1; O2SAT 97
[2025-03-02 06:14] LABS: Differential Indicated SCAN CRITERIA MET
[2025-03-02 06:22] LABS: Anion Gap 11 (5-15); BUN 58 mg/dL (4-19); BUN/Creat Ratio 14.5 RATIO (10-20); Calcium,Total 7.5 mg/dL (7.6-11.0); Carbon Dioxide 15.6 mmol/L (21.0-32.0); Chloride 103 mmol/L (98-108); Estimated Creatinine Clearance 18.02 ml/min (50-250); Glucose 112 mg/dL (70-99); Potassium 4.2 mmol/L (3.3-5.1)
[2025-03-02 07:05] LABS: Differential Comment SCANNED
--- NOTE | 2025-03-02 08:26 | PN.HOSP_ITS ---
Reason for Visit Chief Complaint: Recent UTI Dx, worsening F/chills, only 1 dose abx therapy. Subjective Subjective More alert today. Complaining of his lips being irritated. Objective Data Objective Data Vital Signs: Vital Signs Temp Pulse Resp BP Pulse Ox O2 Del Method O2 Flow Rate 37.1 C 123 H 26 H 156/72 H 97 Room Air 3 03/02/25 05:45 03/02/25 05:45 03/02/25 05:45 03/02/25 05:45 03/02/25 05:45 03/02/25 05:48 03/01/25 09: Oxygen Flow Rate (L/min) 3 Oxygen Delivery Method Room Air Weight: 94.4 kg Body Mass Index (BMI) 29.8 Intake & Output: Intake and Output for Last 24 Hours 02/28/25 03/01/25 03/02/25 23:59 23:59 23:59 Intake Total 830 / 830 1080 / 1080 250 / 250 Output Total 500 / 700 1400 / 1400 350 / 350 Balance 330 / 130 -320 / -320 -100 / -100 Lab / Micro Data 03/02/25 04:43 03/02/25 04:43 Labs: Laboratory Results - last 24 hr 03/02/25 04:43: WBC 3.0 L, RBC 2.90 L, Hgb 8.5 L, Hct 24.9 L, MCV 85.9, MCH 29.3, MCHC 34.1, RDW Std Deviation 48.0 H, RDW Coeff of Jerry 15.1 H, Plt Count 57 L, MPV 13.4 H, Immature Gran % (Auto) 0.700, Neut % (Auto) 75.6 H, Lymph % (Auto) 10.5 L, [place] % (Auto) 3.4, Eos % (Auto) 9.5 H, Baso % (Auto) 0.3, Absolute Neuts (auto) 2.2, Absolute Lymphs (auto) 0.31 L, Nucleated RBC % 0, Differential Comment SCANNED, Platelet Estimate MOD DEC, Sodium 130 L, Potassium 4.2, Chloride 103, Carbon Dioxide 15.6 L, Anion Gap 11, BUN 58 H, Creatinine 3.96 H, Estim Creat Clear Calc 18.02 L, Est GFR (MDRD) Non-Af 15 L, BUN/Creatinine Ratio 14.5, Glucose 112 H, Calcium 7.5 L Micro: Microbiology 02/24/25 22:00 Blood Culture (Wb) - Anticubital Right Blood Culture - Final No growth in 5 days. 02/24/25 22:27 Blood Culture (Wb) - Left Forearm Blood Culture - Final No growth in 5 days. 02/25/25 00:36 Mucosa - Nasopharyngeal Respiratory Panel (PCR) - Final Radiography Diagnostic Testing: Radiology Impression Brain CT 03/01/25 12:49 IMPRESSION: No acute intracranial abnormality. Reading Location: [facility] Physical Exam Const alert Constitutional Narrative: More alert today and interactive and appropriate. HEENT head/scalp atraumatic and moist oral mucous membranes HEENT Narrative: Lips are triggers lower lip is swollen with cracks. Did not visualize any oral lesions otherwise. Eyes Eyes Narrative: No icterus Resp normal respiratory effort and no retractions Resp Narrative: Coarse breath sounds bilaterally Cardio regular rate, regular rhythm, S1 normal heart sound and S2 normal heart sound GI normal to inspection, nondistended, normoactive bowel sounds, soft to palpation, non-tender and non-distended Extremity Extremity Narrative: Nonpitting edema Skin Skin Narrative: Ecchymosis over the bilateral anterior arms. No rash noted elsewhere. Neuro Sensorium / Orientation: awake and alert Psych affect normal Assessment & Plan Assessment/Plan (1) UTI (urinary tract infection): PLAN: Plan Acute Complicated Urinary Tract Infection * secondary to chronic indwelling Worthy catheter secondary to history of prostate cancer status post i prostatectomy with obstructive pathology, failed outpatient antibiotic therapy attempts: * maintain on IV meropenem and IV vancomycin based on previous cultures to be cautious with de-escalation once resulted sensitivities and speciation. Bld cx x 2 obtained in the ED. * declined to change catheter. I spoke with Dr. Gilliland who said the catheter was recently changed and can hold off for now (has routine catheter changes). * UCx showed 80,000-100,000 CFU's of [place] w possible carbapenemase producing enterobacteriaceae, achromobacter. 25,000-50,000 enterococcus and corynebacterium striatum. * on cipfloxacin and pip/tazo CHRIS: * Worsening. Admission creatinine was1.26, now up to 3.96 * US negative * FENa 0.26% * Prerenal v AIN (if so possibly related to meropenem) * Nephrology following. * Non-oliguric. Eosinophilia * unclear etiology, but has gone up during admission, but down slightly 03/01, but back up. Vancomycin DC'd 02/27 and creatinine has continued to go up. Unclear if related to meropenem, however, given his pathogens and allergies and CHRIS, could not be changed to Bactrim (sulfa allergy). Meropenem d/c'd and changed to pip/tazo on 02/28 * Concerning this may be related with meropenem, which was last infused on the . pancytopenia * particularly thrombocytopenia. Has been declining since admission. DW Dr. Leiva, he feels that this is drug-induced (possibly meropenem). He does not feel that this is TTP given that the platelets have gone down since admission. * Hold enoxaparin/heparin. Doubt HIT as platelets have been going down since admission. * 03/02: platelets up from 46 to 57. WBCs up to 3 (from 2.1) Hg down to 8.5 from 9.4 Encephalopathy * Resolved * metabolic * avoid potentiating medications. * Head CT negative Chronic conditions: * History of TIA: Will continue asa, not on statin, holding HTN regiment as noted. * Anxiety and depression: Noted history, per current list does not appear to be on any regimen, clarifying to be certain. Encouraged continued follow-up outpatient as previously arranged * hypertension: BP upon presentation low, improving with IV fluids, will hold all hypertensive regimens, add back once appropriate. * Hyperlipidemia: DVT prophylaxis: SCDs Case discussed with the patient's at bedside and with his daughter over the phone. All questions were answered. Greater than 55 minutes speaking with the the patient, his and daughter and updated them on the current condition as well as talking with nephrology, Dr. Kirk. Charges/Coding Visit Charges Inpatient E&M: 41162 Subs Hosp L3
--- NOTE | 2025-03-02 08:56 | CON.PCM_ITS ---
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 Looks like it is slowly getting better but it still has significant acute on chronic renal insufficiency his creatinine still going higher hopefully the plateauing. Reviewed ultrasound he is got no hydronephrosis and no sign obstruction. Urine culture grew out multiple different bacteria colonized with multiple different organisms which is fairly common for chronic catheters. Urine is draining slowly and draining normally from the suprapubic catheter and see any reason to change it. It is a new Worthy catheter from only 2 weeks ago. Continue with course will continue to monitor and he can follow-up as an outpatient for his next SP tube change. 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 Wears glasses Arthritis Non-smoker Home Medications ?Medication ?Instructions ?Recorded ?Last Taken ?Type amlodipine 10 mg tablet 10 mg PO DAILY BLOOD PRESSUR E 12/08/18 02/24/25 History lisinopril 40 mg tablet 40 mg PO DAILY BLOOD PRESSUR E 12/08/18 02/23/25 History terazosin 5 mg capsule 5 mg PO QPM BLOOD PRESSURE 0 12/08/18 02/23/25 History multivit,Ca,min-iron 8 mg-folic 1 tab PO DAILY SUPPLEM ENT 11/04/23 02/24/25 History acid 200 mcg-lycopene 600 mcg tablet (A Thru Z [employer]'s Ultimate) L.acidophil,salivari-Bifido 1 cap PO DAILY Bowel healt h 02/24/25 02/24/25 History bifidum-Strep thermoph 175 mg capsule ciprofloxacin HCl 500 mg tablet 500 mg PO BID 10 days #20 tabs 02/24/25 02/24/25 Rx (Cipro) Allergy/AdvReac Type Severity Reaction Status Date / Time losartan Allergy Mild Rash Verified 02/24/25 23:38 Sulfa (Sulfonamide Allergy Hives Verified 02/24/25 23:38 Antibiotics) atenolol AdvReac Mild WEAKNESS Verified 02/24/25 23:38 hydrochlorothiazide AdvReac Mild UNKNOWN Verified 02/24/25 23:38 indomethacin (From Indocin) AdvReac Mild GI upset Verified 02/24/25 23:38 Family History (Updated 02/24/25 @ 23:[address] Feli Madden MD) Mother , secondary to complications with c-difficile colitis. No medical history per son. No problems noted. Father , in MVA. No medical history per son. No problems noted. Family History no significant family his Surgical History History of left knee replacement Hx of radical prostatectomy Hx of cystoscopy Hx of colonoscopy Social History (Updated 02/24/25 @ 23:[address] Feli Madden MD) household members: spouse housing: house Smoking Status: Never smoker alcohol intake: never substance use type: does not use Lab / Micro Data 03/02/25 04:43 03/02/25 04:43 Labs: Laboratory Results - last 24 hr 03/02/25 04:43: WBC 3.0 L, RBC 2.90 L, Hgb 8.5 L, Hct 24.9 L, MCV 85.9, MCH 29.3, MCHC 34.1, RDW Std Deviation 48.0 H, RDW Coeff of Jerry 15.1 H, Plt Count 57 L, MPV 13.4 H, Immature Gran % (Auto) 0.700, Neut % (Auto) 75.6 H, Lymph % (Auto) 10.5 L, [place] % (Auto) 3.4, Eos % (Auto) 9.5 H, Baso % (Auto) 0.3, Absolute Neuts (auto) 2.2, Absolute Lymphs (auto) 0.31 L, Nucleated RBC % 0, Differential Comment SCANNED, Platelet Estimate MOD DEC, Sodium 130 L, Potassium 4.2, Chloride 103, Carbon Dioxide 15.6 L, Anion Gap 11, BUN 58 H, Creatinine 3.96 H, Estim Creat Clear Calc 18.02 L, Est GFR (MDRD) Non-Af 15 L, BUN/Creatinine Ratio 14.5, Glucose 112 H, Calcium 7.5 L Micro: Microbiology 02/24/25 22:00 Blood Culture (Wb) - Anticubital Right Blood Culture - Final No growth in 5 days. 02/24/25 22:27 Blood Culture (Wb) - Left Forearm Blood Culture - Final No growth in 5 days. Imaging Radiology Impression Brain CT 03/01/25 12:49 IMPRESSION: No acute intracranial abnormality. Reading Location: [id number]
[2025-03-02 09:40] VITALS: BP 131/63; PULSE 106; RESP 20; TEMP 36.5; O2SAT 96
[2025-03-02] MEDS: Piperacil/Tazobactam 3.375 GM in 0.9% Normal Saline (50mL MB+) 50 ML IV ×2 (09:47→21:34)
[2025-03-02 15:35] VITALS: BP 130/78; PULSE 105; RESP 18; TEMP 36.8; O2SAT 94
--- NOTE | 2025-03-02 17:04 | CT_ITS ---
PROCEDURE: CT CHEST WITHOUT CONTRAST 03/02/2025 REASON FOR EXAM: RESP DISTRESS TECHNIQUE: Chest CT without contrast. Coronal and Sagittal reconstruction series were provided. One or more dose reduction techniques were used (e.g., Automated exposure control, adjustment of the mA and/or kV according to patient size, use of iterative reconstruction technique RADIATION DOSE SUMMARY: CTDlvol: 14.61 mGy DLP: 544.04 mGycm COMPARISON: None. FINDINGS: LUNGS/PLEURA: Small bilateral pleural effusions with adjacent passive atelectasis. Patchy ground-glass airspace opacities in the bilateral perihilar regions likely reflecting alveolar edema. Infectious/inflammatory process is not excluded but less likely. No pneumothorax. Patent central airways. MEDIASTINUM: Increased number of shotty subcentimeter mediastinal lymph nodes, nonspecific but likely reactive. Evaluation of the [place] is limited without IV contrast. Multiple scattered benign granulomatous calcifications. No axillary adenopathy. HEART: Mildly enlarged. There is a moderate simple attenuating pericardial effusion, nonspecific. Minimal coronary artery calcifications. THORACIC AORTA: Normal in course and caliber. Scant atherosclerotic calcifications. UPPER ABDOMEN: No significant abnormality, as visualized. BONES: Degenerative changes of the spine, and moderate bilateral glenohumeral arthrosis. CT/Chest without Contrast IMPRESSION: Mild cardiomegaly. Nonspecific moderate pericardial effusion. Small bilateral pleural effusions with adjacent bibasilar passive atelectasis a nd/or consolidation. Patchy ground-glass perihilar airspace opacities most likely represent alveolar edema, with infectious/inflammatory processes not excluded but less likely. Reading Location: [id number]
[2025-03-02 17:11] VITALS: BP 120/70; PULSE 103; RESP 18; TEMP 36.8; O2SAT 95
--- NOTE | 2025-03-02 17:11 | PCM.PN.REN ---
Subjective Subjective continues to have wheezing oral mucosa dry/swollen UOP marginal Objective Data Objective Data Vital Signs: Vital Signs Temp Pulse Resp BP Pulse Ox O2 Del Method O2 Flow Rate 98.3 F 105 H 18 130/78 H 94 Room Air 3 03/02/25 15:35 03/02/25 15:35 03/02/25 15:35 03/02/25 15:35 03/02/25 15:35 03/02/25 15:35 03/01/25 09: Oxygen Flow Rate (L/min) 3 Oxygen Delivery Method Room Air Weight: 94.4 kg Body Mass Index (BMI) 29.8 Intake & Output: Intake and Output for Last 24 Hours 02/28/25 03/01/25 03/02/25 23:59 23:59 23:59 Intake Total 830 / 830 1080 / 1080 540 / 540 Output Total 500 / 700 1400 / 1400 550 / 550 Balance 330 / 130 -320 / -320 -10 / -10 Lab / Micro Data 03/02/25 04:43 03/02/25 04:43 Labs: Laboratory Results - last 24 hr 03/02/25 04:43: WBC 3.0 L, RBC 2.90 L, Hgb 8.5 L, Hct 24.9 L, MCV 85.9, MCH 29.3, MCHC 34.1, RDW Std Deviation 48.0 H, RDW Coeff of Jerry 15.1 H, Plt Count 57 L, MPV 13.4 H, Immature Gran % (Auto) 0.700, Neut % (Auto) 75.6 H, Lymph % (Auto) 10.5 L, [place] % (Auto) 3.4, Eos % (Auto) 9.5 H, Baso % (Auto) 0.3, Absolute Neuts (auto) 2.2, Absolute Lymphs (auto) 0.31 L, Nucleated RBC % 0, Differential Comment SCANNED, Platelet Estimate MOD DEC, Sodium 130 L, Potassium 4.2, Chloride 103, Carbon Dioxide 15.6 L, Anion Gap 11, BUN 58 H, Creatinine 3.96 H, Estim Creat Clear Calc 18.02 L, Est GFR (MDRD) Non-Af 15 L, BUN/Creatinine Ratio 14.5, Glucose 112 H, Calcium 7.5 L Micro: Microbiology 02/24/25 22:00 Blood Culture (Wb) - Anticubital Right Blood Culture - Final No growth in 5 days. 02/24/25 22:27 Blood Culture (Wb) - Left Forearm Blood Culture - Final No growth in 5 days. 02/25/25 00:36 Mucosa - Nasopharyngeal Respiratory Panel (PCR) - Final Physical Exam Narrative awake, follows commands ecchymosis present oral mucosa crusted s1s2 no murmurs +expiratory wheeze abdomen soft no organomegaly perdomo, dark urine trace LE edema Assessment & Plan Assessment/Plan (1) Chronic renal insufficiency: (2) CHRIS (acute kidney injury): PLAN: Baseline Cr is around 1.2 -1.3. Cr was close to baseline on admit Renal US ok supra pubic catheter in place increasing eosinophilia in CBC. no rash. no itching. thrombocytopenia. as per my discussion with hospitalist, hematology has been consulted. doubt its TTP since platelet count is normal on admit off heparin products for now other than a kidney biopsy no other way to rule out AIN for sure. however ID on consult today and imipenem has been taken off patient says only allergy he has is sulfa. took penicillin products without issues in the past since he is going off penems now, can monitor labs 03/02 initially steroids on hold due to underlying sepsis Currently no improvement in renal function with persistent peripheral eosinophils. check CT chest. Ideally renal biopsy would give definitive diagnosis, however given thrombocytopenia not great option. Hence will start methylprednisone 125mg q12 hours x 3 days, monitor clinical response give 1L of LR today discussed with primary team discussed with patient and his family at bedside
[2025-03-02] MEDS: Lactated Ringers 1,000 ML 75 ML IV (18:46)
[2025-03-02] MEDS: 0.9% Saline Lock 10 ML Syringe IV (21:34)
[2025-03-02 21:37] VITALS: BP 127/59; PULSE 106; RESP 20; TEMP 36.8; O2SAT 95
[2025-03-03 03:08] VITALS: BMI 29.5
[2025-03-03 03:13] VITALS: BP 108/56; PULSE 90; RESP 22; TEMP 36.4; O2SAT 96
[2025-03-03] MEDS: guaiFENesin 10 ML UDC (200MG/10ML) 20 ML PO ×2 (03:13→16:15)
[2025-03-03 06:14] LABS: Hematocrit 23.2 % (40-54); Hemoglobin 8.0 g/dL (13.0-16.5); Immature Granulocytes Count 0.020 X10^3/uL (0.0-0.0); Mean Corp Hgb Conc 34.5 g/dL (32-36); Mean Corpuscular Volume 85.0 fL (80-94); Mean Platelet Vol. 13.7 fl (6.2-12.0); NRBC Flagged by Analyzer 0 % (0-5); POSITIVE COUNT YES; POSITIVE DIFFERENTIAL YES; POSITIVE MORPHOLOGY YES; Platelet Count 52 K/mm3 (150-450); RBC Distribution Width CV 15.2 % (11.6-14.6); RBC Distribution Width SD 47.3 fl (35.1-43.9); Red Blood Count 2.73 M/mm3 (4.6-6.2); White Blood Count 2.5 K/mm3 (4.4-11.0)
[2025-03-03 06:18] LABS: Differential Indicated SCAN CRITERIA MET
[2025-03-03 06:36] LABS: Anion Gap 14 (5-15); BUN 68 mg/dL (4-19); BUN/Creat Ratio 15.7 RATIO (10-20); Calcium,Total 7.5 mg/dL (7.6-11.0); Carbon Dioxide 13.4 mmol/L (21.0-32.0); Chloride 101 mmol/L (98-108); Estimated Creatinine Clearance 16.28 ml/min (50-250); Glucose 160 mg/dL (70-99); Potassium 4.8 mmol/L (3.3-5.1)
[2025-03-03 06:48] LABS: Differential Comment SCANNED
--- NOTE | 2025-03-03 09:01 | PN.HOSP_ITS ---
Reason for Visit Chief Complaint: Recent UTI Dx, worsening F/chills, only 1 dose abx therapy. Subjective Subjective Feeling well. Lips are less swollen and bothersome today. Objective Data Objective Data Vital Signs: Vital Signs Temp Pulse Resp BP Pulse Ox O2 Del Method O2 Flow Rate 36.4 C L 90 22 H 108/56 L 96 Room Air 3 03/03/25 03:13 03/03/25 03:13 03/03/25 03:13 03/03/25 03:13 03/03/25 03:13 03/03/25 03:13 03/01/25 09: Oxygen Flow Rate (L/min) 3 Oxygen Delivery Method Room Air Weight: 93.3 kg Body Mass Index (BMI) 29.5 Intake & Output: Intake and Output for Last 24 Hours 03/01/25 03/02/25 03/03/25 23:59 23:59 23:59 Intake Total 1080 / 1080 1010 / 1250 650 / 650 Output Total 1400 / 1400 850 / 1100 600 / 600 Balance -320 / -320 160 / 150 50 / 50 Lab / Micro Data 03/03/25 05:16 03/03/25 05:16 Labs: Laboratory Results - last 24 hr 03/03/25 05:16: WBC 2.5 L, RBC 2.73 L, Hgb 8.0 L, Hct 23.2 L, MCV 85.0, MCH 29.3, MCHC 34.5, RDW Std Deviation 47.3 H, RDW Coeff of Jerry 15.2 H, Plt Count 52 L, MPV 13.7 H, Immature Gran % (Auto) 0.800, Neut % (Auto) 76.3 H, Lymph % (Auto) 17.6 L, [place] % (Auto) 3.7, Eos % (Auto) 1.2, Baso % (Auto) 0.4, Absolute Neuts (auto) 1.9 L, Absolute Lymphs (auto) 0.43 L, Nucleated RBC % 0, Differential Comment SCANNED, Platelet Estimate MOD DEC, Sodium 129 L, Potassium 4.8, Chloride 101, Carbon Dioxide 13.4 L, Anion Gap 14, BUN 68 H, Creatinine 4.36 H, Estim Creat Clear Calc 16.28 L, Est GFR (MDRD) Non-Af 13 L, BUN/Creatinine Ratio 15.7, Glucose 160 H, Calcium 7.5 L Micro: Microbiology 02/24/25 22:00 Blood Culture (Wb) - Anticubital Right Blood Culture - Final No growth in 5 days. 02/24/25 22:27 Blood Culture (Wb) - Left Forearm Blood Culture - Final No growth in 5 days. 02/25/25 00:36 Mucosa - Nasopharyngeal Respiratory Panel (PCR) - Final Radiography Diagnostic Testing: Radiology Impression Chest CT 03/02/25 17:04 IMPRESSION: Mild cardiomegaly. Nonspecific moderate pericardial effusion. Small bilateral pleural effusions with adjacent bibasilar passive atelectasis and/or consolidation. Patchy ground-glass perihilar airspace opacities most likely represent alveolar edema, with infectious/inflammatory processes not excluded but less likely. Reading Location: [facility] Physical Exam Const alert and no apparent distress HEENT head/scalp atraumatic and moist oral mucous membranes HEENT Narrative: Dry lips bilaterally. Lower lip appears to be less swollen today. Resp normal respiratory effort, no retractions, no use of accessory muscles and clear to auscultation bilaterally Cardio regular rate, regular rhythm, S1 normal heart sound and S2 normal heart sound GI normal to inspection, nondistended, normoactive bowel sounds, soft to palpation and non-tender Extremity Extremity Narrative: 2+ edema in lower extremities. No edema in upper extremities. Skin Skin Narrative: Still ecchymosis to bilateral forearms. No changes with. Neuro Sensorium / Orientation: awake and alert Psych affect normal Assessment & Plan Assessment/Plan (1) UTI (urinary tract infection): PLAN: Plan Acute Complicated Urinary Tract Infection * secondary to chronic indwelling Worthy catheter secondary to history of prostate cancer status post i prostatectomy with obstructive pathology, failed outpatient antibiotic therapy attempts: * declined to change catheter. I spoke with Dr. Gilliland who said the catheter was recently changed and can hold off for now (has routine catheter changes). * UCx showed 80,000-100,000 CFU's of [place] w possible carbapenemase producing enterobacteriaceae, achromobacter. 25,000-50,000 enterococcus and corynebacterium striatum. * on cipfloxacin and pip/tazo CHRIS: * Worsening. Admission creatinine was1.26, now up to 4.36 * US negative * FENa 0.26% * Prerenal v AIN (if so possibly related to meropenem) * Nephrology following. Started on steroids methylpred 125 BID on the and give 1 liter of LR. * Non-oliguric. Eosinophilia * resolved. Eosinophils now down to 1.2 (from 9.5) * unclear etiology, but has gone up during admission, but down slightly 03/01, but back up. Vancomycin DC'd 02/27 and creatinine has continued to go up. Unclear if related to meropenem, however, given his pathogens and allergies and CHRIS, could not be changed to Bactrim (sulfa allergy). Meropenem d/c'd and changed to pip/tazo on 02/28 * Concerning this may be related with meropenem, which was last infused on the . pancytopenia * particularly thrombocytopenia. Has been declining since admission. DW Dr. Leiva on the , he feels that this is drug-induced (possibly meropenem). He does not feel that this is TTP given that the platelets have gone down since admission. * Hold enoxaparin/heparin. Doubt HIT as platelets have been going down since admission. * 03/02: platelets up from 46 to 57. WBCs up to 3 (from 2.1) Hg down to 8.5 from 9.4 * 03/03: plt 52, Hg 8, WBCs 2.5 Encephalopathy * Resolved * metabolic * avoid potentiating medications. * Head CT negative Lower extreme edema * Patient overall 6 L positive since the beginning of this admission. He has received IV fluids for his CHRIS. Given his ongoing worsening kidney function, I have held off on diuretics. * Chronic conditions: * History of TIA: Will continue asa, not on statin, * Anxiety and depression: Noted history, per current list does not appear to be on any regimen, clarifying to be certain. Encouraged continued follow-up outpatient as previously arranged * hypertension: BP upon presentation low, improving with IV fluids, will hold all hypertensive regimens, add back once appropriate. 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 He was started on steroids on the and his kidney function has worsened today though he is still making urine. I told him I am not sure if he will need dialysis but if this is temporary insult due to AIN, this may improve with time but it is possible if he does need dialysis that may be temporary. But still told that it is unclear but we still need more time to observe how things improved. So I told him reassuring signs is that eventually his status is much better, his eosinophils are resolved, at least for now. Clarification: Nephrology notes document that hematology has been consulted. Hematology has not been formally consulted though I did speak with Dr. Leiva on the . He was very concerned that this may have been due to the meropenem and advise discontinuing which it has been. Charges/Coding Visit Charges Inpatient E&M: 08897 Subs Hosp L3
[2025-03-03 09:15] VITALS: BP 116/74; PULSE 91; RESP 18; TEMP 36.3; O2SAT 95
[2025-03-03] MEDS: Piperacil/Tazobactam 3.375 GM in 0.9% Normal Saline (50mL MB+) 50 ML IV ×2 (09:49→21:34)
[2025-03-03] MEDS: 0.9% Saline Lock 10 ML Syringe IV ×2 (10:11→21:33)
--- NOTE | 2025-03-03 14:52 | PN.RENAL_ITS ---
Subjective Subjective feels ok today tolerating po intake had CT yesterday Objective Data Objective Data Vital Signs: Vital Signs Temp Pulse Resp BP Pulse Ox O2 Del Method O2 Flow Rate 97.4 F L 91 18 116/74 95 Room Air 3 03/03/25 09:15 03/03/25 09:15 03/03/25 09:15 03/03/25 09:15 03/03/25 09:15 03/03/25 14:20 03/01/25 09:25 Oxygen Flow Rate (L/min) 3 Oxygen Delivery Method Room Air Weight: 93.3 kg Body Mass Index (BMI) 29.5 Intake & Output: Intake and Output for Last 24 Hours 03/01/25 03/02/25 03/03/25 23:59 23:59 23:59 Intake Total 1080 / 1080 1010 / 1250 820 / 820 Output Total 1400 / 1400 850 / 1100 750 / 750 Balance -320 / -320 160 / 150 70 / 70 Lab / Micro Data 03/03/25 05:16 03/03/25 05:16 Labs: Laboratory Results - last 24 hr 03/03/25 05:16: WBC 2.5 L, RBC 2.73 L, Hgb 8.0 L, Hct 23.2 L, MCV 85.0, MCH 29.3, MCHC 34.5, RDW Std Deviation 47.3 H, RDW Coeff of Jerry 15.2 H, Plt Count 52 L, MPV 13.7 H, Immature Gran % (Auto) 0.800, Neut % (Auto) 76.3 H, Lymph % (Auto) 17.6 L, [place] % (Auto) 3.7, Eos % (Auto) 1.2, Baso % (Auto) 0.4, Absolute Neuts (auto) 1.9 L, Absolute Lymphs (auto) 0.43 L, Nucleated RBC % 0, Differential Comment SCANNED, Platelet Estimate MOD DEC, Sodium 129 L, Potassium 4.8, Chloride 101, Carbon Dioxide 13.4 L, Anion Gap 14, BUN 68 H, Creatinine 4.36 H, Estim Creat Clear Calc 16.28 L, Est GFR (MDRD) Non-Af 13 L, BUN/Creatinine Ratio 15.7, Glucose 160 H, Calcium 7.5 L Micro: Microbiology 02/24/25 22:00 Blood Culture (Wb) - Anticubital Right Blood Culture - Final No growth in 5 days. 02/24/25 22:27 Blood Culture (Wb) - Left Forearm Blood Culture - Final No growth in 5 days. 02/25/25 00:36 Mucosa - Nasopharyngeal Respiratory Panel (PCR) - Final Radiography Diagnostic Testing: Radiology Impression Chest CT 03/02/25 17:04 IMPRESSION: Mild cardiomegaly. Nonspecific moderate pericardial effusion. Small bilateral pleural effusions with adjacent bibasilar passive atelectasis and/or consolidation. Patchy ground-glass perihilar airspace opacities most likely represent alveolar edema, with infectious/inflammatory processes not excluded but less likely. Reading Location: [id number] Physical Exam Narrative awake, follows commands ecchymosis present oral mucosa crusted s1s2 no murmurs b/s equal abdomen soft no organomegaly perdomo, light urine trace LE edema Assessment & Plan Assessment/Plan (1) Chronic renal insufficiency: (2) CHRIS (acute kidney injury): PLAN: Baseline Cr is around 1.2 -1.3. Cr was close to baseline on admit Renal US ok supra pubic catheter in place increasing eosinophilia in CBC. no rash. no itching. thrombocytopenia. as per my discussion with hospitalist, hematology has been consulted. doubt its TTP since platelet count is normal on admit off heparin products for now other than a kidney biopsy no other way to rule out AIN for sure. however ID on consult today and imipenem has been taken off patient says only allergy he has is sulfa. took penicillin products without issues in the past since he is going off penems now, can monitor labs 03/03 -methylprednisolone 125mg bid started on 03/02 for presumed AIN -peripheral eosinophil resolved -non olgiuric -scr still uptrending -slightly worsening acidemia, po sodium bicarb started -bmp in am, might need renal support in form of IHD if renal function continues to worsens -thrombocytopenia remains the same discussed with patient and his family at bedside
[2025-03-03 15:58] VITALS: BP 125/58; PULSE 94; RESP 18; TEMP 36.6; O2SAT 95
[2025-03-03 21:30] VITALS: BP 122/72; PULSE 84; RESP 18; TEMP 36.4; O2SAT 98
[2025-03-04 03:19] VITALS: BMI 29.5
[2025-03-04 03:30] VITALS: BP 130/74; PULSE 77; RESP 18; TEMP 36.9; O2SAT 96
[2025-03-04 05:14] LABS: Hematocrit 21.4 % (40-54); Hemoglobin 7.6 g/dL (13.0-16.5); Immature Granulocytes Count 0.020 X10^3/uL (0.0-0.0); Mean Corp Hgb Conc 35.5 g/dL (32-36); Mean Corpuscular Volume 82.9 fL (80-94); NRBC Flagged by Analyzer 0 % (0-5); POSITIVE COUNT YES; POSITIVE MORPHOLOGY YES; RBC Distribution Width CV 15.1 % (11.6-14.6); RBC Distribution Width SD 46.3 fl (35.1-43.9); Red Blood Count 2.58 M/mm3 (4.6-6.2); White Blood Count 4.1 K/mm3 (4.4-11.0)
[2025-03-04 05:27] LABS: Differential Indicated SCAN CRITERIA MET; Platelet Count 50 K/mm3 (150-450)
[2025-03-04 05:52] LABS: Anisocytosis 1+; Differential Comment SCANNED
[2025-03-04 06:03] LABS: Anion Gap 14 (5-15); BUN 81 mg/dL (4-19); BUN/Creat Ratio 18.1 RATIO (10-20); Calcium,Total 7.6 mg/dL (7.6-11.0); Carbon Dioxide 13.9 mmol/L (21.0-32.0); Chloride 103 mmol/L (98-108); Estimated Creatinine Clearance 15.85 ml/min (50-250); Glucose 185 mg/dL (70-99); Potassium 4.6 mmol/L (3.3-5.1)
[2025-03-04] MEDS: guaiFENesin 10 ML UDC (200MG/10ML) 20 ML PO ×2 (06:54→12:07)
[2025-03-04] MEDS: Albuterol 2.5 MG/3 ML VIAL.NEB. INHALATION (07:11)
[2025-03-04 07:12] VITALS: PULSE 80; RESP 22; O2SAT 96
[2025-03-04 09:40] VITALS: BP 107/67; PULSE 94; RESP 16; TEMP 36.3; O2SAT 96
[2025-03-04] MEDS: 0.9% Saline Lock 10 ML Syringe IV ×3 (09:43→21:53)
[2025-03-04] MEDS: Piperacil/Tazobactam 3.375 GM in 0.9% Normal Saline (50mL MB+) 50 ML IV ×2 (09:43→21:49)
--- NOTE | 2025-03-04 10:36 | PN.RENAL_ITS ---
Subjective Subjective Sitting in recliner chair. at bedside. No overnight events. Patient and both state appetite very poor given painful oral and lip ulcers. Denies any diarrhea or vomiting. Objective Data Objective Data Vital Signs: Vital Signs Temp Pulse Resp BP Pulse Ox O2 Del Method O2 Flow Rate 97.3 F L 94 16 107/67 96 Room Air 3 03/04/25 09:40 03/04/25 09:40 03/04/25 09:40 03/04/25 09:40 03/04/25 09:40 03/04/25 09:40 03/01/25 09: Oxygen Flow Rate (L/min) 3 Oxygen Delivery Method Room Air Weight: 93.4 kg Body Mass Index (BMI) 29.5 Intake & Output: Intake and Output for Last 24 Hours 03/02/25 03/03/25 03/04/25 23:59 23:59 23:59 Intake Total 1010 / 1250 1180 / 1180 50 / 50 Output Total 850 / 1100 1725 / 1725 450 / 450 Balance 160 / 150 -545 / -545 -400 / -400 Lab / Micro Data 03/04/25 04:42 03/04/25 04:42 Labs: Laboratory Results - last 24 hr 03/04/25 04:42: WBC 4.1 L, RBC 2.58 L, Hgb 7.6 L, Hct 21.4 L, MCV 82.9, MCH 29.5, MCHC 35.5, RDW Std Deviation 46.3 H, RDW Coeff of Jerry 15.1 H, Plt Count 50 L*, Immature Gran % (Auto) 0.500, Neut % (Auto) 73.2 H, Lymph % (Auto) 17.8 L, [place] % (Auto) 8.1, Eos % (Auto) 0.2, Baso % (Auto) 0.2, Absolute Neuts (auto) 3.0, Absolute Lymphs (auto) 0.72 L, Nucleated RBC % 0, Differential Comment SCANNED, Platelet Estimate MOD DEC, Anisocytosis 1+, Ovalocytes 2+, Sodium 131 L , Potassium 4.6, Chloride 103, Carbon Dioxide 13.9 L, Anion Gap 14, BUN 81 H, C reatinine 4.48 H, Estim Creat Clear Calc 15.85 L, Est GFR (MDRD) Non-Af 13 L, BUN/Creatinine Ratio 18.1, Glucose 185 H, Calcium 7.6 Micro: Microbiology 02/24/25 22:00 Blood Culture (Wb) - Anticubital Right Blood Culture - Final No growth in 5 days. 02/24/25 22:27 Blood Culture (Wb) - Left Forearm Blood Culture - Final No growth in 5 days. 02/25/25 00:36 Mucosa - Nasopharyngeal Respiratory Panel (PCR) - Final Physical Exam Narrative Alert and oriented x 3, no apparent stress oral mucosa crusted s1s2 no murmurs b/s equal, no wheezes, rhonchi or rales noted abdomen soft perdomo, light urine in tubing and bag trace LE edema, nonpitting Assessment & Plan Assessment/Plan (1) Chronic renal insufficiency: (2) CHRIS (acute kidney injury): PLAN: Baseline Cr is around 1.2 -1.3. Cr was close to baseline on admit Renal US ok supra pubic catheter in place increasing eosinophilia in CBC. no rash. no itching. thrombocytopenia. as per my discussion with hospitalist, hematology has been consulted. doubt its TTP since platelet count is normal on admit off heparin products for now other than a kidney biopsy no other way to rule out AIN for sure. however ID on consult today and imipenem has been taken off patient says only allergy he has is sulfa. took penicillin products without issues in the past since he is going off [employer] now, can monitor labs 03/03 -methylprednisolone 125mg bid started on 03/02 for presumed AIN -peripheral eosinophil resolved -non olgiuric -scr still uptrending -slightly worsening acidemia, po sodium bicarb started -bmp in am, might need renal support in form of IHD if renal function continues to worsens -thrombocytopenia remains the same 03/04 - Serum creatinine at baseline on admission (02/24 SCr 1.2). Yesterday SCr 4.36--> today SCr 4.48. Urine output yesterday 1.7 L, so far urine output 450 mL today. Per patient and appetite very poor due to painful oral ulcers. Will start maintenance IV fluids. Continue on Methylpred 125 mg IV twice daily. Potassium normal, bicarb 14 (was started on oral bicarb), volume status appears compensated, on room air, no acute indication for renal placement therapy today. Platelet count 50 today. White count 2.5 yesterday, 4.1 today, eosinophils 0.2%, no fevers. Labs ordered for the morning. Discussed nephrology plan with patient and at bedside, questions answered.
--- NOTE | 2025-03-04 14:09 | CASEMGMT ---
LA GIRON into pt room, Pt in bed receiving care. Pt came out of room wanting to speak with LA GIRON. Discussed Pt needs at this time, they are still unsure if he will need dialysis catheter or IV antibiotics so they are not sure if they will want HHC. states she does not want Pt to go to SNF. She was tearing up and said they have a very good support system of friends at home. LA GIRON will follow for recommendations and follow up with family.
[2025-03-04] MEDS: Lactated Ringers 1,000 ML 100 ML IV ×2 (14:36→23:40)
[2025-03-04 14:39] VITALS: BP 131/74; PULSE 86; RESP 16; TEMP 36.4; O2SAT 96
--- NOTE | 2025-03-04 14:45 | PCM.PN.ID ---
Physical Exam Narrative Feeling better, no fever, no n/v/d. Const no apparent distress General Appearance: cooperative Resp normal air movement and clear to auscultation bilaterally Cardio regular rate and regular rhythm GI soft to palpation, non-tender and non-distended Skin no rashes or lesions noted ID ID: Route of nutrition/ use of supplements: [] Nutritional Intake: [] IV Site: [] Worthy Catheter: [] Assessment & Plan Assessment/Plan (1) Catheter-associated urinary tract infection: PLAN: Ucx with possible CRE providencia, achromobacter, e faecalis, and corynebacterium. Eos have normalized, but Cr worse today. Suprapubic catheter in place. Will cont with cipro for the possible CRE and zosyn for the other organisms. Will follow (2) CHRIS (acute kidney injury): (3) Chronic renal insufficiency:
[2025-03-04 15:02] VITALS: BP 131/74; PULSE 86; RESP 16; TEMP 35.9; O2SAT 96
--- NOTE | 2025-03-04 15:40 | PN_ITS ---
Subjective Subjective Patient seen and examined with his nurse by his bedside. His was also by his bedside. He had no active complaints. He denied any fever and chills. Denied chest pain, palpitations, dizziness, nausea or vomiting. Review of systems otherwise negative. His creatinine today has trended up to 4.48. Objective Data Objective Data Vital Signs: Vital Signs Temp Pulse Resp BP Pulse Ox O2 Del Method O2 Flow Rate 96.7 F L 86 16 131/74 H 96 Room Air 3 03/04/25 15:02 03/04/25 15:02 03/04/25 15:02 03/04/25 15:02 03/04/25 15:02 03/04/25 15:02 03/01/25 09: Oxygen Flow Rate (L/min) 3 Oxygen Delivery Method Room Air Weight: 205 lb 14.588 oz Body Mass Index (BMI) 29.5 Intake & Output: Intake and Output for Last 24 Hours 03/02/25 03/03/25 03/04/25 23:59 23:59 23:59 Intake Total 1010 / 1250 1180 / 1180 460 / 460 Output Total 850 / 1100 1725 / 1725 700 / 700 Balance 160 / 150 -545 / -545 -240 / -240 Lab / Micro Data 03/04/25 04:42 03/04/25 04:42 Labs: Laboratory Results - last 24 hr 03/04/25 04:42: WBC 4.1 L, RBC 2.58 L, Hgb 7.6 L, Hct 21.4 L, MCV 82.9, MCH 29.5, MCHC 35.5, RDW Std Deviation 46.3 H, RDW Coeff of Jerry 15.1 H, Plt Count 50 L*, Immature Gran % (Auto) 0.500, Neut % (Auto) 73.2 H, Lymph % (Auto) 17.8 L, [place] % (Auto) 8.1, Eos % (Auto) 0.2, Baso % (Auto) 0.2, Absolute Neuts (auto) 3.0, Absolute Lymphs (auto) 0.72 L, Nucleated RBC % 0, Differential Comment SCANNED, Platelet Estimate MOD DEC, Anisocytosis 1+, Ovalocytes 2+, Sodium 131 L , Potassium 4.6, Chloride 103, Carbon Dioxide 13.9 L, Anion Gap 14, BUN 81 H, C reatinine 4.48 H, Estim Creat Clear Calc 15.85 L, Est GFR (MDRD) Non-Af 13 L, BUN/Creatinine Ratio 18.1, Glucose 185 H, Calcium 7.6 Micro: Microbiology 02/24/25 22:00 Blood Culture (Wb) - Anticubital Right Blood Culture - Final No growth in 5 days. 02/24/25 22:27 Blood Culture (Wb) - Left Forearm Blood Culture - Final No growth in 5 days. 02/25/25 00:36 Mucosa - Nasopharyngeal Respiratory Panel (PCR) - Final Physical Exam Const alert, oriented x3 and no apparent distress General Appearance: cooperative and well developed HEENT normocephalic, head/scalp atraumatic, moist oral mucous membranes and oropharynx normal Eyes EOMs intact bilaterally Neck supple and no JVD Lymph Lymphatic: no lymphedema noted Resp normal respiratory effort, normal air movement and clear to auscultation bilaterally Resp Narrative: on room air Cardio S1 normal heart sound, S2 normal heart sound and no murmurs GI normal to inspection, nondistended, normoactive bowel sounds, soft to palpation and non-tender Extremity normal capillary refill, no clubbing, cyanosis or edema and no calf tenderness General Extremity: no tenderness to palpation of joints or extremities Skin General Skin Exam: no breakdown Neuro no focal motor deficits, no sensory deficits noted and deep tendon reflexes 2+ bilaterally Motor Exam: general weakness Psych thought process normal, cooperative and affect normal Appearance: appropriate Assessment & Plan Assessment/Plan (1) Acute hypotension: (2) Catheter-associated urinary tract infection: (3) CHRIS (acute kidney injury): PLAN: Plan # Acute complicated UTI * Thought to be due to indwelling Worthy catheter. He does have a history of prostate cancer status post prostatectomy. * apparently declined to change catheter as it was recently changed and follow-up on outpatient basis. * Urine cultures grew procidentia with possible carbapenems producing Enterobacteriaceae and actinobacter as well as Enterococcus and corynebacterium stratum * On ciprofloxacin and Zosyn. * #CHRIS * Creatinine is up to 4.46 today. 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 * Nephrology on board. Cannot have kidney biopsy on account of thrombocytopenia. Kidney ultrasound was negative. * Started on IV Solu-Medrol on 03/02/2025. Patient is making urine. Per nephrology no indication to start dialysis now and to continue steroids for now. * #Pancytopenia * Hemoglobin today 7.6 with platelets of 50. Hematology was consulted and thought this was likely drug-induced likely meropenem patient was on. Hematology did not think that this was due to TTP. * Will monitor closely for now. * WBCs 4.1 today. * #Bilateral lower extremity edema: Improving. #History of TIA: On aspirin. However not on statin. #Hypertension: Blood pressure was low on admission so BP meds held. Improving now. Will monitor and resume BP meds DVT prophylaxis: SCDs. Charges/Coding Visit Charges Inpatient E&M: 42169 Subs Hosp L2
[2025-03-04 21:43] VITALS: BP 130/61; PULSE 73; RESP 18; TEMP 36.6; O2SAT 96
[2025-03-05] VITALS (43 sets, daily range): BP systolic 79–138; BP diastolic 30–95; PULSE 79–123; RESP 15–30; TEMP 35.6–36.4; O2SAT 10–100; BMI 29.7
[2025-03-05] MEDS: guaiFENesin 10 ML UDC (200MG/10ML) 20 ML PO (05:28)
[2025-03-05] MEDS: Albuterol 2.5 MG/3 ML VIAL.NEB. INHALATION (05:36)
[2025-03-05 06:11] LABS: Hematocrit 16.5 % (40-54); Immature Granulocytes Count 0.040 X10^3/uL (0.0-0.0); Mean Corp Hgb Conc 34.5 g/dL (32-36); Mean Corpuscular Volume 84.6 fL (80-94); NRBC Flagged by Analyzer 0 % (0-5); POSITIVE COUNT YES; RBC Distribution Width CV 15.3 % (11.6-14.6); RBC Distribution Width SD 46.8 fl (35.1-43.9); Red Blood Count 1.95 M/mm3 (4.6-6.2); White Blood Count 3.6 K/mm3 (4.4-11.0)
[2025-03-05 06:56] LABS: Differential Indicated SCAN CRITERIA MET; Hemoglobin 5.7 g/dL (13.0-16.5); Platelet Count 35 K/mm3 (150-450)
[2025-03-05 07:16] LABS: Anion Gap 16 (5-15); BUN 111 mg/dL (4-19); BUN/Creat Ratio 24.9 RATIO (10-20); Calcium,Total 7.2 mg/dL (7.6-11.0); Carbon Dioxide 11.6 mmol/L (21.0-32.0); Chloride 104 mmol/L (98-108); Estimated Creatinine Clearance 16.01 ml/min (50-250); Glucose 258 mg/dL (70-99); Potassium 4.8 mmol/L (3.3-5.1)
[2025-03-05 07:31] LABS: Differential Comment SCANNED
[2025-03-05 08:43] LABS: Ferritin 1314 ng/mL (37-417); Iron 125 ug/dL (65-175); Iron Binding Capacity,Unsat 31 ug/dL (228-428)
[2025-03-05] MEDS: 0.9% Normal Saline (1000mL) 1,000 ML 999 ML IV (09:00)
[2025-03-05 09:06] LABS: Iron Binding Capacity,Total 156 ug/dL (250-450)
--- NOTE | 2025-03-05 09:08 | EKG12_ITS ---
Test Reason : RAPID Blood Pressure : */* mmHG Vent. Rate : 116 BPM Atrial Rate : * BPM P-R Int : * ms QRS Dur : 80 ms QT Int : 320 ms P-R-T Axes : * 56 46 degrees QTcB Int : 444 ms Atrial fibrillation with rapid ventricular response with premature ventricular or aberrantly conducted complexes Abnormal ECG When compared with ECG of 26-Feb-2025 00:47, Atrial fibrillation has replaced Sinus rhythm Confirmed by SUZI HOOK, SARAH ([id number]), telegraph editor STEFAN POLK ([id number]) on 03/06/2025 8:53:16 AM Referred By: JOAN Confirmed By: SARAH ARCHER MD
[2025-03-05 09:20] LABS: Allen Test Positive; Base Excess -14 mmol/L (-2 to +2); FI02 3.0; PO2 118 mmHG (75-100); SITE L Radial; SO2 99 % (95-99); Time Given 09:18:18
--- NOTE | 2025-03-05 09:36 | NURSING ---
HEADER SETUP OPERATOR called at 9:02am this nurse entered room with Mult[facility] nursing staff and Dr Gu present. (See HEADER SETUP OPERATOR documemtation) Orders received to send pt to ICU. Report called to Claudia TOVAR and all questions answered.
[2025-03-05] MEDS: Pantoprazole Sodium 80 MG in 0.9% Normal Saline (50mL Bag) 15 ML 420 MG IV BOLUS (09:38)
[2025-03-05] MEDS: Pantoprazole Sodium 80 MG in 0.9% Normal Saline (100mL Bag) 80 ML 10 MG CONT INF ×2 (09:38→20:07)
--- NOTE | 2025-03-05 09:55 | EX.PCM.CONCC ---
Assessment & Plan Assessment/Plan (1) Hemorrhagic shock: PLAN: Plan RECOMMENDATIONS: 1. Initiate assist-control mode of mechanical ventilation. Wean FiO2 and PEEP as tolerated. 2. Obtain follow-up ABG and sputum culture. 3. Fentanyl and propofol for sedation. 4. Initiate Levophed to maintain a mean arterial pressure at or above 65 mmHg. 5. Antimicrobials per ID recommendations. 6. Steroids per nephrology. Continue bicarbonate replacement. 7. Continue PPI therapy as ordered. 8. Transfuse blood products as ordered along with platelets and FFP. Check CBC posttransfusion, along with coagulation profile. 9. Consider formal hematology consultation. IMPRESSIONS: 1. Multifactorial shock Most likely the consequence of acute hemorrhagic shock coupled with sepsis. The patient was urgently transferred to the medical intensive care unit this morning, where he underwent upper endoscopy by gastroenterology, which demonstrated 2 nonbleeding gastric ulcers along with a spurting duodenal ulcer, which was intervened upon. Given the precipitous drop in the patient's hemoglobin, we will plan to transfuse packed red blood cells, platelets and FFP. Plan to check CBC posttransfusion along with coagulation profile. The patient will be initiated on vasopressor support to maintain a mean arterial pressure at or above 65 mmHg. The patient's urinary tract source of infection will be medically managed with antimicrobials, per the discretion of infectious diseases. The patient will be continued on PPI therapy as ordered. 2. Acute hypoxemic respiratory failure The patient acutely decompensated from a respiratory perspective during his upper endoscopy procedure. Therefore, he was emergently intubated. The patient will be continued on assist-control mode of mechanical ventilation, with a goal to wean FiO2 and PEEP as tolerated. My concern is that the patient would have been unable to compensate from a respiratory perspective for his significant underlying metabolic acidosis. Will obtain sputum and sent for culture. Propofol and fentanyl believe utilized for sedation. 3. Acute on chronic kidney disease/anion gap metabolic acidosis Clinical concern for possible AIN related to antimicrobial administration. The patient has been maintained on corticosteroids. His underlying thrombocytopenia has precluded the ability to proceed with kidney biopsy. Recommend continuing bicarbonate support. Management will be deferred to nephrology. 4. Pancytopenia Initially felt to be drug-induced and presentation. There has been continued decline in the patient's platelet count. The patient will receive platelets as part of his transfusion protocol today. Will check fibrinogen level. Recommend formal consultation to hematology. Goal to achieve and maintain a hemoglobin at or above 7 g/dL. 5. History of prostate cancer with obstructive pathology status post chronic indwelling Worthy catheter/hypertension/anemia Complicates care, management, recovery and prognosis. Continue supportive measures as noted above. TIME: 87 minutes of critical care time, independent of procedures, was spent addressing the patient's multifactorial shock, acute hypoxemic respiratory failure, acute on chronic kidney disease, pancytopenia, review of all data and collaboration with the care team. HPI Consult Data Date of Consult: 03/05/25 HPI Narrative Reason for Consultation: Hemorrhagic shock HPI Narrative: The patient is a 79-year-old male, with a history as outlined below, who initially presented to the emergency department on February 24 with fevers, chills and URI symptoms. The patient has a known history of chronic kidney disease, anemia, history of prostate cancer status post prostatectomy with obstructive pathology with chronic indwelling Worthy catheter, hypertension, anxiety and depression. The patient was initially admitted to the hospital placed on antimicrobials over concerns for a complicated urinary tract source of infection. The patient was seen in consultation by infectious diseases after urine culture demonstrated CRE [place] [facility], acromial vector and Enterococcus. The patient's hospital course was complicated by worsening renal insufficiency. According to documentation by the subspecialist, there has been concern that the patient's renal dysfunction and thrombocytopenia was the consequence of antimicrobial therapy. Although a kidney biopsy has been considered, the patient's thrombocytopenia has precluded proceeding with such an intervention. On the morning of March 05, a rapid response team was called after the patient experienced a syncopal event. He was subsequently found to have a hemoglobin of 5.7 g/dL. Stool for occult blood was noted to be positive. Consultation was placed urgently to gastroenterology. In light of the patient's decompensated clinical status, he was transferred to the medical intensive care unit for further management. On arrival to the ICU, the patient was still alert and interactive. He did have a blood gas drawn which demonstrated a pH of 7.46 with a pCO2 of 14 and pO2 of 118. Given the patient's tenuous clinical status, I did request that endoscopy perform his procedure at the bedside in the intensive care unit. I did have a very jenny discussion with the patient's regarding my clinical concerns that the patient could decompensate further upon intervention by gastroenterology. I personally provided the procedural sedation for the upper endoscopy, which began at approximately 10:20 AM. The patient was initially managed with fentanyl and Versed. Ultimately, he did require small boluses of propofol to maintain an appropriate level of sedation. Unfortunately, midway through the upper endoscopy, the patient desaturated and was unable to recover. Therefore, the decision was made to emergently intubate the patient. Following intubation, the upper endoscopy was able to be completed without further issue. In light of his ongoing need for significant blood product administration and need for vasopressor support, a femoral central venous catheter was placed after the upper endoscopy. FORMERLY [facility], [facility]–1983 Medical History Anemia Anxiety and depression Hypertension History of prostate cancer CKD (chronic kidney disease) Hearing loss, left Hearing loss, right Chronic indwelling Worthy catheter TIA (transient ischemic attack) Chronic radiation cystitis Worthy catheter in place Wears glasses Arthritis Non-smoker Home Medications ?Medication ?Instructions ?Recorded ?Last Taken ?Type amlodipine 10 mg tablet 10 mg PO DAILY BLOOD PRESSURE 12/08/18 02/24/25 History lisinopril 40 mg tablet 40 mg PO DAILY BLOOD PRESSURE 12/08/18 02/23/25 History terazosin 5 mg capsule 5 mg PO QPM BLOOD PRESSURE 12/08/18 02/23/25 History multivit,Ca,min-iron 8 mg-folic 1 tab PO DAILY SUPPLEMENT 11/04/23 02/24/25 History acid 200 mcg-lycopene 600 mcg tablet (A Thru Z Men's Ultimate) L.acidophil,salivari-Bifido 1 cap PO DAILY Bowel health 02/24/25 02/24/25 History bifidum-Strep thermoph 175 mg capsule ciprofloxacin HCl 500 mg tablet 500 mg PO BID 10 days #20 tabs 02/24/25 02/24/25 Rx (Cipro) Allergy/AdvReac Type Severity Reaction Status Date / Time meropenem Allergy Severe All blood Verified 03/03/25 09:09 cells low losartan Allergy Mild Rash Verified 02/24/25 23:38 Sulfa (Sulfonamide Allergy Hives Verified 02/24/25 23:38 Antibiotics) atenolol AdvReac Mild WEAKNESS Verified 02/24/25 23:38 hydrochlorothiazide AdvReac Mild UNKNOWN Verified 02/24/25 23:38 indomethacin (From Indocin) AdvReac Mild GI upset Verified 02/24/25 23:38 Family History Mother , secondary to complications with c-difficile colitis. No medical history per son. No problems noted. Father , in MVA. No medical history per son. No problems noted. Family History no significant family his Surgical History History of left knee replacement Hx of radical prostatectomy Hx of cystoscopy Hx of colonoscopy Social History household members: spouse housing: house Smoking Status: Never smoker alcohol intake: never substance use type: does not use ROS Review of Systems ROS Unobtainable: due to endotracheal tube Physical Exam Const Constitutional Narrative: The patient is now intubated and mechanically ventilated. There is dried blood present in his oropharynx. HEENT normocephalic, head/scalp atraumatic and moist oral mucous membranes Mouth: endotracheal tube in place and OG tube in place Eyes EOMs intact bilaterally and conjunctivae normal Neck supple General: trachea midline Chest inspection of chest normal Resp Effort and Inspection: tachypneic and labored Auscultation: diminished lung sounds Cardio S1 normal heart sound and S2 normal heart sound Rate: tachycardic GI normal to inspection, nondistended, normoactive bowel sounds Extremity General Extremity: edema; Negative for clubbing Skin no rashes or lesions noted Neuro Sensorium / Orientation: sedated on vent Lab / Micro Data 03/05/25 09:47 03/05/25 09:47 Labs: Laboratory Results - last 24 hr 03/05/25 04:36: WBC 3.6 L, RBC 1.95 L, Hgb 5.7 L*, Hct 16.5 L, MCV 84.6, MCH 29.2, MCHC 34.5, RDW Std Deviation 46.8 H, RDW Coeff of Jerry 15.3 H, Plt Count 35 L*, Immature Gran % (Auto) 1.100 H, Neut % (Auto) 69.2, Lymph % (Auto) 20.8, Kings % (Auto) 8.9, Eos % (Auto) 0.0, Baso % (Auto) 0.0, Absolute Neuts (auto) 2.5, Absolute Lymphs (auto) 0.75 L, Nucleated RBC % 0, Differential Comment SCANNED, Platelet Estimate MKD DEC, Sodium 132 L, Potassium 4.8, Chloride 104, Carbon Dioxide 11.6 L, Anion Gap 16 H, BUN 111 H*, Creatinine 4.45 H, Estim Creat Clear Calc 16.01 L, Est GFR (MDRD) Non-Af 13 L, BUN/Creatinine Ratio 24.9 H, Glucose 258 H, Calcium 7.2 L, Iron 125, TIBC 156 L, Iron Saturation 80.1 H, Unsaturated IBC 31 L, Ferritin 1314 H 03/05/25 07:45: Blood Type O POSITIVE, Antibody Screen NEGATIVE, Crossmatch See Detail 03/05/25 07:45: Crossmatch See Detail 03/05/25 09:04: POC Glucose 280 H Micro: Microbiology 03/05/25 04:10 Stool Stool Occult Blood (LISANDRA) - Final Occult Blood Positive ABG Data ABG results: ABG 03/05/25 09:16 Specimen Type ART Sample Site L Radial pH 7.46 H Bicarbonate Actual 9.7 L Total CO2 10 Base Excess -14 L O2 Saturation 99 O2 % 3.0 ABG pCO2 13.7 L* ABG pO2 118 H Talon Test Positive O2 Delivery Device Cannula Vent Mode Not entered Crit Call To/Read Back Yes Blood Gas Notified Whom [facility] Blood Gas Notified Time 09:18:18 Charges/Coding Procedures Hospitalists Procedures: 01930 Critical Care 1st Hr Multi Select Codes Hospitalists' Procedures Procedures: 40893 Critical Care Addl 30 Min
[2025-03-05 09:58] LABS: Hematocrit 12.6 % (40-54); Immature Granulocytes Count 0.120 X10^3/uL (0.0-0.0); Mean Corp Hgb Conc 34.1 g/dL (32-36); Mean Corpuscular Volume 86.3 fL (80-94); Mean Platelet Vol. 15.3 fl (6.2-12.0); NRBC Flagged by Analyzer 0 % (0-5); POSITIVE COUNT YES; RBC Distribution Width CV 15.2 % (11.6-14.6); RBC Distribution Width SD 47.9 fl (35.1-43.9); Red Blood Count 1.46 M/mm3 (4.6-6.2); White Blood Count 4.0 K/mm3 (4.4-11.0)
--- NOTE | 2025-03-05 10:01 | NURSING ---
At 0900 AM staff assist light went off and upon arrival patient was found with two bakery demonstrator at his side. Patient was on his knees and resting his head on walker. bakery demonstrator had been assisting patient to bathroom and had then lowered him to the floor on his knees. Patient had snoring respirations and was unresponsive, but had a pulse. Rapid Response called promptly and using multiple staff members patient was lifted back onto bed. Patient slowly started to come back and answer questions appropriately but was drowsy. O2 applied, VS obtained, and IV bolus started per Dr. Gu's orders. Other orders placed by Beryl Morejon RN per Dr. Gu verbally. Patient then transported to ICU.
[2025-03-05 10:02] LABS: Hemoglobin 4.3 g/dL (13.0-16.5); Platelet Count 32 K/mm3 (150-450)
--- NOTE | 2025-03-05 10:05 | RAD_ITS ---
PROCEDURE: CHEST 1 VIEW (PORTABLE) 03/05/2025 REASON FOR EXAM: RESPIRATORY FAILURE TECHNIQUE: Frontal view of the chest. COMPARISON: March 02 2025 FINDINGS: Hardware: EKG leads are present Heart: Normal Lungs: Clear. No pneumothorax or pleural effusion. Bones: Osteoarthritis right glenohumeral joint. RAD/Chest 1 View (Portable) IMPRESSION: No acute cardiopulmonary process. Reading Location: [id number]
--- NOTE | 2025-03-05 10:06 | EX.PCM.CON.G ---
HPI Consult Data Date of Consult: 03/05/25 HPI Narrative Reason for Consultation: GI bleed HPI Narrative: BARBARA PEÑA, is a 79 M who presented to the ED with a history of chronic normocytic anemia, Hx Prostate CA s/p prostatectomy w/ obstructive pathology with chronic indwelling Worthy catheter. He was admitted on 02/24/2025 secondary recent urinary tract infection. He was placed on radha quinolone therapy. He subsequently since being in the hospital developed worsening pancytopenia, acute on chronic renal failure and had a rapid response called to him this morning due to possible GI bleed. I was called to see him emergently. Currently at this time he is in the ICU with a very labile blood pressure. As per his family and the patient he is full code. Complicating his current status is a decreasing platelet count to 35 with a hemoglobin of 5.7 and a platelet count of 3.8. His coagulation profile is pending. 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 Wears glasses Arthritis Non-smoker Home Medications ?Medication ?Instructions ?Recorded ?Last Taken ?Type amlodipine 10 mg tablet 10 mg PO DAILY BLOOD PRESSURE 12/08/18 02/24/25 History lisinopril 40 mg tablet 40 mg PO DAILY BLOOD PRESSURE 12/08/18 02/23/25 History terazosin 5 mg capsule 5 mg PO QPM BLOOD PRESSURE 12/08/18 02/23/25 History multivit,Ca,min-iron 8 mg-folic 1 tab PO DAILY SUPPLEMENT 11/04/23 02/24/25 History acid 200 mcg-lycopene 600 mcg tablet (A Thru Z Men's Ultimate) L.acidophil,salivari-Bifido 1 cap PO DAILY Bowel health 02/24/25 02/24/25 History bifidum-Strep thermoph 175 mg capsule ciprofloxacin HCl 500 mg tablet 500 mg PO BID 10 days #20 tabs 02/24/25 02/24/25 Rx (Cipro) Allergy/AdvReac Type Severity Reaction Status Date / Time meropenem Allergy Severe All blood Verified 03/03/25 09:09 cells low losartan Allergy Mild Rash Verified 02/24/25 23:38 Sulfa (Sulfonamide Allergy Hives Verified 02/24/25 23:38 Antibiotics) atenolol AdvReac Mild WEAKNESS Verified 02/24/25 23:38 hydrochlorothiazide AdvReac Mild UNKNOWN Verified 02/24/25 23:38 indomethacin (From Indocin) AdvReac Mild GI upset Verified 02/24/25 23:38 Family History Mother , secondary to complications with c-difficile colitis. No medical history per son. No problems noted. Father , in MVA. No medical history per son. No problems noted. Family History no significant family his Surgical History History of left knee replacement Hx of radical prostatectomy Hx of cystoscopy Hx of colonoscopy Social History household members: spouse housing: house Smoking Status: Never smoker alcohol intake: never substance use type: does not use ROS Constitutional Constitutional: Denies fatigue, fever(s), poor appetite, weight gain or weight loss Gastrointestinal Gastrointestinal: Denies belching, bloating, change in bowel habits, change in stool character, chewing difficulty, coffee ground emesis, constipation, cramping, diarrhea, dyspepsia, dysphagia, early satiety, excessive flatus, fecal incontinence, heartburn, hematemesis, hematochezia, hemorrhoids, loose stools, melena, nausea, odynophagia, rectal bleeding, tenesmus, vomiting or weight changes Physical Exam Const alert, oriented x3 and no apparent distress General Appearance: cooperative and well developed HEENT normocephalic, head/scalp atraumatic, moist oral mucous membranes and oropharynx normal Eyes EOMs intact bilaterally Neck supple and no JVD Lymph Lymphatic: no lymphedema noted Resp normal respiratory effort, normal air movement and clear to auscultation bilaterally Resp Narrative: on room air Cardio S1 normal heart sound, S2 normal heart sound and no murmurs GI normal to inspection, nondistended, normoactive bowel sounds, soft to palpation and non-tender Extremity normal capillary refill, no clubbing, cyanosis or edema and no calf tenderness General Extremity: no tenderness to palpation of joints or extremities Skin General Skin Exam: no breakdown Neuro no focal motor deficits, no sensory deficits noted and deep tendon reflexes 2+ bilaterally Motor Exam: general weakness Psych thought process normal, cooperative and affect normal Appearance: appropriate Lab / Micro Data 03/05/25 09:47 03/05/25 04:36 Labs: Laboratory Results - last 24 hr 03/05/25 04:36: WBC 3.6 L, RBC 1.95 L, Hgb 5.7 L*, Hct 16.5 L, MCV 84.6, MCH 29.2, MCHC 34.5, RDW Std Deviation 46.8 H, RDW Coeff of Jerry 15.3 H, Plt Count 35 L*, Immature Gran % (Auto) 1.100 H, Neut % (Auto) 69.2, Lymph % (Auto) 20.8, [place] % (Auto) 8.9, Eos % (Auto) 0.0, Baso % (Auto) 0.0, Absolute Neuts (auto) 2.5, Absolute Lymphs (auto) 0.75 L, Nucleated RBC % 0, Differential Comment SCANNED, Platelet Estimate MKD DEC, Sodium 132 L, Potassium 4.8, Chloride 104, Carbon Dioxide 11.6 L, Anion Gap 16 H, BUN 111 H*, Creatinine 4.45 H, Estim Creat Clear Calc 16.01 L, Est GFR (MDRD) Non-Af 13 L, BUN/Creatinine Ratio 24.9 H, Glucose 258 H, Calcium 7.2 L, Iron 125, TIBC 156 L, Iron Saturation 80.1 H, Unsaturated IBC 31 L, Ferritin 1314 H 03/05/25 07:45: Blood Type O POSITIVE, Antibody Screen NEGATIVE, Crossmatch See Detail 03/05/25 07:45: Crossmatch See Detail 03/05/25 09:04: POC Glucose 280 H 03/05/25 09:47: WBC 4.0 L, RBC 1.46 L, Hgb 4.3 L*, Hct 12.6 L, MCV 86.3, MCH 29.5, MCHC 34.1, RDW Std Deviation 47.9 H, RDW Coeff of Jerry 15.2 H, Plt Count 32 L*, MPV 15.3 H, Immature Gran % (Auto) 3.000 H, Neut % (Auto) 69.2, Lymph % (Auto) 16.9 L, [place] % (Auto) 10.9 H, Eos % (Auto) 0.0, Baso % (Auto) 0.0, Absolute Neuts (auto) 2.8, Absolute Lymphs (auto) 0.68 L, Nucleated RBC % 0 Micro: Microbiology 03/05/25 04:10 Stool Stool Occult Blood (LISANDRA) - Final Occult Blood Positive ABG Data ABG results: ABG 03/05/25 09:16 Specimen Type ART Sample Site L Radial pH 7.46 H Bicarbonate Actual 9.7 L Total CO2 10 Base Excess -14 L O2 Saturation 99 O2 % 3.0 ABG pCO2 13.7 L* ABG pO2 118 H Talon Test Positive O2 Delivery Device Cannula Vent Mode Not entered Crit Call To/Read Back Yes Blood Gas Notified Whom [facility] Blood Gas Notified Time 09:18:18 Assessment & Plan Assessment/Plan (1) Acute hypotension: (2) Anemia: PLAN: 79-year-old gentleman with hypotension, GI bleed from unknown etiology at this time. Recommendations are emergent upper endoscopy and possible colonoscopy. The patient and the patient's family were explained alternatives, risk, benefits include not withstanding bleeding, infection, sepsis, perforation, need for emergent urgent . He will have an ASA of 3. Charges/Coding Visit Charges Inpatient E&M: 49238 Init Hosp L3
[2025-03-05] MEDS: Lactated Ringers 1,000 ML 100 ML IV (10:10)
[2025-03-05] MEDS: 0.9% Saline Lock 10 ML Syringe IV ×3 (10:15→15:55)
[2025-03-05] MEDS: Midazolam 2 MG/2 ML Syringe 4 MG IV (10:18)
[2025-03-05] MEDS: fentaNYL 100 MCG/2 ML Ampul IV (10:18)
[2025-03-05] MEDS: Epinephrine (1 mg/ml) 1 MG/ML VIAL (10:22)
[2025-03-05] MEDS: 0.9% Normal Saline (Pres. free 10 ML Vial (10:22)
--- NOTE | 2025-03-05 10:23 | NURSING ---
Emergent EGD being done at bedside
--- NOTE | 2025-03-05 10:45 | NURSING ---
Patient desaturated during EGD with Dr Kj Guerrero at beside and patient was intubated at this time. 10:30am 50mcg of propofol pushed by Dr Underwood 10:39am Patient ETT placed 7.5 23@liip 10:40am 50mcg of propofol pushed by Dr Underwood. Intubation successful and Dr Hinson returned to EGD of this patient.
[2025-03-05 10:46] LABS: Anion Gap 16 (5-15); BUN 114 mg/dL (4-19); BUN/Creat Ratio 25.8 RATIO (10-20); Calcium,Total 6.7 mg/dL (7.6-11.0); Carbon Dioxide 11.4 mmol/L (21.0-32.0); Chloride 104 mmol/L (98-108); Estimated Creatinine Clearance 16.11 ml/min (50-250); Glucose 300 mg/dL (70-99); Potassium 4.5 mmol/L (3.3-5.1)
[2025-03-05] MEDS: fentaNYL drip 100 ML 15 MCG CONT INF ×3 (10:52→23:33)
[2025-03-05] MEDS: Propofol 10MG/Ml 1,000 MG/100 ML Bottle 5.6 MG CONT INF (11:15)
[2025-03-05 11:21] LABS: CPK Total, Creatine Kinase 136 U/L (24-195); Triglycerides 352 mg/dL
[2025-03-05] MEDS: Norepinephrine 8 MG in 0.9% Normal Saline (250mL Bag) 242 ML 9.4 MG CONT INF (11:40)
[2025-03-05] MEDS: Piperacil/Tazobactam 3.375 GM in 0.9% Normal Saline (50mL MB+) 50 ML IV ×2 (11:48→21:53)
--- NOTE | 2025-03-05 11:48 | PRO.PCM_ITS ---
Procedures Hospitalists Procedures: [id number] Insert Emergency Airway Non-invasive Procedural Procedure Information Date of Procedure: 03/05/25 Description of procedure: Intubation Indication: Acute hypoxemic respiratory failure Consent was obtained from: Patient and The patient was placed in the appropriate sniffing position. Preoxygenated sedation via [id number] was provided for a minimum of 3 minutes. [facility] had continuous cardiac as well as pulse oximetry monitoring during the procedure. Procedure sedation was provided by the administration of 50 mg of propofol. Direct laryngoscopy was then performed using a number 4 Mac blade, which revealed a grade 2 view. A 7.5 mm endotracheal tube was visualized advancing between the cords to the level of 23 cm at the lip. The stylette was then removed and discarded. Tube placement was confirmed by fogging in the tube along with equal and bilateral breath sounds. Colorimetric change was visualized on the CO2 meter. The cuff was then inflated and the tube secured using a commercially available device. A good pulse oximetry waveform was seen on the monitor throughout the procedure. A portable chest x-ray has been ordered to confirm appropriate placement. The patient tolerated the procedure well.
--- NOTE | 2025-03-05 11:49 | PCM.OP.PRO2 ---
Procedures Hospitalists Procedures: [id number] Insert Non-tunnel CV Cath Non-invasive Procedural Procedure Information Date of Procedure: 03/05/25 Description of procedure: Central Venous Catheter Indication: Hypotension Consent was obtained from: A time-out was completed verifying correct patient, procedure, site, positioning, and special equipment if applicable. The patient was placed in a dependent position appropriate for central line placement based on the vein to be cannulated. The patient's right groin was prepped and draped in a sterile fashion. 1% lidocaine was used to anesthetize the surrounding skin area. A triple-lumen catheter was introduced into the right femoral vein using the Seldinger technique and under ultrasound guidance. The catheter was threaded smoothly over the guidewire and appropriate blood return was obtained. Each lumen of the catheter was evacuated of air and flushed with sterile saline. The catheter was then sutured in place to the skin and a sterile dressing applied. ULTRASOUND GUIDANCE STATEMENT (Vascular Access): I performed ultrasound image acquisition and interpretation for needle placement during the procedure. The vessel was identified and found to be free of thrombosis by compression technique. A safe point of entry was marked at the skin in an angle for axis was determined. The needle was guided by obtaining free-flowing fluid and by real-time visualization.
[2025-03-05 12:04] LABS: Allen Test Positive; Base Excess -14 mmol/L (-2 to +2); FI02 70.0; PEEP 5; PO2 160 mmHG (75-100); RR 16; SITE L Radial; SO2 99 % (95-99); Time Given 12:01:52
--- NOTE | 2025-03-05 12:10 | RAD_ITS ---
PROCEDURE: CHEST 1 VIEW (PORTABLE) 03/05/2025 REASON FOR EXAM: ETT AND OGT PLACEMENT TECHNIQUE: AP portable upright chest. COMPARISON: AP chest of earlier on 03/05/2025. RAD/Chest 1 View (Portable) IMPRESSION: Endotracheal tube seen with tip approximately 4 cm above the jack. Nasogastric tube less well seen due to motion, but with tip at least at the pro ximal stomach. Cannot exclude proximal port placement within the distal esophagus, however. Lungs are hypoinflated, but appear clear of acute disease. No pleural effusion or pneumothorax is evident. The cardiomediastinal silhouette is remarkable for a somewhat tortuous aorta. No evidence of cardiomegaly. Asymmetric right glenohumeral joint degenerative changes are also noted. Reading Location: [id number]
--- NOTE | 2025-03-05 12:16 | OP.PROVAT_ITS ---
03/05/2025 Eduardo Han [address] [place] [address] Re : Upper GI endoscopy procedure for Sulaiman Milan Dear Dr. Han This procedure was performed on Wednesday, March 05, 2025. My impressions and recommendations are as follows: Impressions : - Normal esophagus. - Non-bleeding gastric ulcers with pigmented material. - Spurting duodenal ulcer with a visible vessel. Injected. Clips were placed. Clip folding machine setter: nivio. hemostatic spray applied. - No specimens collected. Recommendations : - Return patient to ICU for ongoing care. - NPO. - Continue present medications. My findings are described in the full procedure note, which is enclosed. If I can be of further assistance, please feel free to contact me at . Sincerely, Jp Hinson, 03/05/2025 12:15:50 PM This report has been signed electronically.
--- NOTE | 2025-03-05 12:16 | OP.EGD_ITS ---
Patient Name: Sulaiman Milan Procedure Date: 03/05/2025 10:08 AM Date of : 1945 Age: 79 Procedure: Upper GI endoscopy Indications: Acute post hemorrhagic anemia, Active gastrointestinal bleeding Providers: Jp Hinson DO Medicines: Monitored Anesthesia Care Patient Profile: This is a 79 year old male. Refer to note in patient chart for documentation of history and physical. Patient has symptoms of acute epigastric abdominal pain. Complications: No immediate complications. Procedure: Pre-Anesthesia Assessment: - Prior to the procedure, a History and Physical was performed, and patient medications and allergies were reviewed. The patient is competent. The risks and benefits of the procedure and the sedation options and risks were discussed with the patient. All questions were answered and informed consent was obtained. Patient identification and proposed procedure were verified by the physician in the pre-procedure area. Mental Status Examination: alert and oriented. Airway Examination: normal oropharyngeal airway and neck mobility. Respiratory Examination: clear to auscultation. CV Examination: normal. Prophylactic Antibiotics: The patient does not require prophylactic antibiotics. Prior Anticoagulants: The patient has taken no anticoagulant or antiplatelet agents. ASA Grade Assessment: II - A patient with mild systemic disease. After reviewing the risks and benefits, the patient was deemed in satisfactory condition to undergo the procedure. The anesthesia plan was to use monitored anesthesia care (MAC). Immediately prior to administration of medications, the patient was re-assessed for adequacy to receive sedatives. The heart rate, respiratory rate, oxygen saturations, blood pressure, adequacy of pulmonary ventilation, and response to care were monitored throughout the procedure. The physical status of the patient was re-assessed after the procedure. After obtaining informed consent, the endoscope was passed under direct vision. Throughout the procedure, the patient's blood pressure, pulse, and oxygen saturations were monitored continuously. The Endoscope was introduced through the mouth, and advanced to the third part of the duodenum. Small bowel enteroscopy was deemed necessary. The upper GI endoscopy was accomplished without difficulty. The patient tolerated the procedure well. Scope In: 10:20:12 AM Scope Out: 10:58:39 AM Total Procedure Duration Time 0 hours 38 minutes 27 seconds Findings: The examined esophagus was normal. Two non-bleeding cratered gastric ulcers with pigmented material were found in the prepyloric region of the stomach. The largest lesion was 6 mm in largest dimension. One spurting cratered duodenal ulcer with a visible vessel was found in the duodenal bulb. The lesion was 30 mm in largest dimension. Area was successfully injected with 20 mL of a 0.1 mg/mL solution of epinephrine for drug delivery. Estimated blood loss was minimal. To stop active bleeding, four hemostatic clips were successfully placed. Clip operations professional: [employer]. There was no bleeding at the end of the procedure. To stop active bleeding, hemostatic spray was deployed. Several sprays were applied. There was no bleeding at the end of the procedure. Impression: - Normal esophagus. - Non-bleeding gastric ulcers with pigmented material. - Spurting duodenal ulcer with a visible vessel. Injected. Clips were placed. Clip operations professional: [employer]. hemostatic spray applied. - No specimens collected. Recommendation: - Return patient to ICU for ongoing care. - NPO. - Continue present medications. Procedure Code(s): --- Professional --- 80703, Small intestinal endoscopy, enteroscopy beyond second portion of duodenum, not including ileum; with control of bleeding (eg, injection, bipolar cautery, unipolar cautery, laser, heater probe, stapler, plasma stone processing machine operator) 13361, Unlisted procedure, small intestine CPT copyright 2021 [employer]. All rights reserved. The codes documented in this report are preliminary and upon translator/interpreter review may be revised to meet current compliance requirements. Jp Hinson DO 03/05/2025 12:15:50 PM This report has been signed electronically. Number of Addenda: 0 Note Initiated On: 03/05/2025 10:08 AM
--- NOTE | 2025-03-05 12:36 | PCM.PN.REN ---
Subjective Subjective vEvents noted. This morning he had rapid response due to GI bleed. Hemoglobin dropped by almost 4 points. GI on consult. He is currently in ICU, intubated. Blood pressure is low, getting triple-lumen placement this morning. Discussed with ICU attending. Objective Data Objective Data Vital Signs: Vital Signs Temp Pulse Resp BP Pulse Ox O2 Del Method O2 Flow Rate 96.1 F L 110 H 20 H 112/59 L 10 Mechanical Ventilator 2 03/05/25 12:00 03/05/25 12:00 03/05/25 12:00 03/05/25 12:00 03/05/25 12:00 03/05/25 12:00 03/05/25 10:08 FiO2 50 03/05/25 11:58 Oxygen Flow Rate (L/min) 2 Oxygen Delivery Method Mechanical Ventilator Weight: 94 kg Body Mass Index (BMI) 29.7 Intake & Output: Intake and Output for Last 24 Hours 03/03/25 03/04/25 03/05/25 23:59 23:59 23:59 Intake Total 1180 / 1180 1606.67 / 1606.67 2924.59 / 2924.59 Output Total 1725 / 1725 1300 / 1300 303 / 303 Balance -545 / -545 306.67 / 306.67 2621.59 / 2621.59 Lab / Micro Data 03/05/25 09:47 03/05/25 09:47 Labs: Laboratory Results - last 24 hr 03/05/25 04:36: WBC 3.6 L, RBC 1.95 L, Hgb 5.7 L*, Hct 16.5 L, MCV 84.6, MCH 29.2, MCHC 34.5, RDW Std Deviation 46.8 H, RDW Coeff of Jerry 15.3 H, Plt Count 35 L*, Immature Gran % (Auto) 1.100 H, Neut % (Auto) 69.2, Lymph % (Auto) 20.8, Mathews % (Auto) 8.9, Eos % (Auto) 0.0, Baso % (Auto) 0.0, Absolute Neuts (auto) 2.5, Absolute Lymphs (auto) 0.75 L, Nucleated RBC % 0, Differential Comment SCANNED, Platelet Estimate MKD DEC, Sodium 132 L, Potassium 4.8, Chloride 104, Carbon Dioxide 11.6 L, Anion Gap 16 H, BUN 111 H*, Creatinine 4.45 H, Estim Creat Clear Calc 16.01 L, Est GFR (MDRD) Non-Af 13 L, BUN/Creatinine Ratio 24.9 H, Glucose 258 H, Calcium 7.2 L, Iron 125, TIBC 156 L, Iron Saturation 80.1 H, Unsaturated IBC 31 L, Ferritin 1314 H 03/05/25 07:45: Blood Type O POSITIVE, Antibody Screen NEGATIVE, Crossmatch See Detail 03/05/25 07:45: Crossmatch See Detail 03/05/25 07:45: Crossmatch See Detail 03/05/25 09:04: POC Glucose 280 H 03/05/25 09:47: WBC 4.0 L, RBC 1.46 L, Hgb 4.3 L*, Hct 12.6 L, MCV 86.3, MCH 29.5, MCHC 34.1, RDW Std Deviation 47.9 H, RDW Coeff of Jerry 15.2 H, Plt Count 32 L*, MPV 15.3 H, Immature Gran % (Auto) 3.000 H, Neut % (Auto) 69.2, Lymph % (Auto) 16.9 L, Mathews % (Auto) 10.9 H, Eos % (Auto) 0.0, Baso % (Auto) 0.0, Absolute Neuts (auto) 2.8, Absolute Lymphs (auto) 0.68 L, Nucleated RBC % 0, Sodium 132 L, Potassium 4.5, Chloride 104, Carbon Dioxide 11.4 L, Anion Gap 16 H, BUN 114 H*, Creatinine 4.42 H, Estim Creat Clear Calc 16.11 L, Est GFR (MDRD) Non-Af 13 L, BUN/Creatinine Ratio 25.8 H, Glucose 300 H, Lactic Acid 3.9 H*, Calcium 6.7 L, Total Creatine Kinase 136, Triglycerides 352 H Micro: Microbiology 03/05/25 04:10 Stool Stool Occult Blood (LISANDRA) - Final Occult Blood Positive 02/24/25 22:00 Blood Culture (Wb) - Anticubital Right Blood Culture - Final No growth in 5 days. 02/24/25 22:27 Blood Culture (Wb) - Left Forearm Blood Culture - Final No growth in 5 days. 02/25/25 00:36 Mucosa - Nasopharyngeal Respiratory Panel (PCR) - Final ABG Data ABG results: ABG 03/05/25 03/05/25 09:16 12:00 Specimen Type ART ART Sample Site L Radial L Radial pH 7.46 H 7.18 L* Bicarbonate Actual 9.7 L 14.4 L Total CO2 10 16 Base Excess -14 L -14 L O2 Saturation 99 99 O2 % 3.0 70.0 ABG pCO2 13.7 L* 38.1 ABG pO2 118 H 160 H Talon Test Positive Positive Respiration Rate 16 O2 Delivery Device Cannula Adult Vent Vent Mode Not entered AC Tidal Volume 450.0 POC PEEP 5 Crit Call To/Read Back Yes Yes Blood Gas Notified Whom Edouard CASTILLO Blood Gas Notified Time 09:18:18 12:01:52 Radiography Diagnostic Testing: Radiology Impression Chest X-Ray 03/05/25 10:05 IMPRESSION: No acute cardiopulmonary process. Reading Location: [facility] Chest X-Ray 03/05/25 12:10 IMPRESSION: Endotracheal tube seen with tip approximately 4 cm above the jack. Nasogastric tube less well seen due to motion, but with tip at least at the proximal stomach. Cannot exclude proximal port placement within the distal esophagus, however. Lungs are hypoinflated, but appear clear of acute disease. No pleural effusion or pneumothorax is evident. The cardiomediastinal silhouette is remarkable for a somewhat tortuous aorta. No evidence of cardiomegaly. Asymmetric right glenohumeral joint degenerative changes are also noted. Reading Location: [id number] Physical Exam Narrative oral mucosa crusted s1s2 no murmurs b/s equal, no wheezes, rhonchi or rales noted abdomen soft perdomo, light urine in tubing and bag Assessment & Plan Assessment/Plan (1) Chronic renal insufficiency: (2) CHRIS (acute kidney injury): PLAN: Baseline Cr is around 1.2 -1.3. Cr was close to baseline on admit Renal US ok supra pubic catheter in place increasing eosinophilia in CBC. no rash. no itching. thrombocytopenia. as per my discussion with hospitalist, hematology has been consulted. doubt its TTP since platelet count is normal on admit off heparin products for now other than a kidney biopsy no other way to rule out AIN for sure. however ID on consult today and imipenem has been taken off patient says only allergy he has is sulfa. took penicillin products without issues in the past since he is going off penems now, can monitor labs 03/03 -methylprednisolone 125mg bid started on 03/02 for presumed AIN -peripheral eosinophil resolved -non olgiuric -scr still uptrending -slightly worsening acidemia, po sodium bicarb started -bmp in am, might need renal support in form of IHD if renal function continues to worsens -thrombocytopenia remains the same 03/04 - Serum creatinine at baseline on admission (02/24 SCr 1.2). Yesterday SCr 4.36--> today SCr 4.48. Urine output yesterday 1.7 L, so far urine output 450 mL today. Per patient and appetite very poor due to painful oral ulcers. Will start maintenance IV fluids. Continue on Methylpred 125 mg IV twice daily. Potassium normal, bicarb 14 (was started on oral bicarb), volume status appears compensated, on room air, no acute indication for renal placement therapy today. Platelet count 50 today. White count 2.5 yesterday, 4.1 today, eosinophils 0.2%, no fevers. Labs ordered for the morning. Discussed nephrology plan with patient and at bedside, questions answered. 03/05/2025. Creatinine about the same. BUN is high, could be related to steroids. Unfortunately had decompensation overnight due to GI bleed. Will temporarily hold steroids. If stress dose steroids are needed from ICU standpoint, can use them. Acidotic, lactate levels are high. To get PRBC, IV fluids for resuscitation as per ICU. Still making urine, Perdomo indwelling with some urine output. Although this is less than yesterday. Potassium is okay. Will follow-up on acid-base status after resuscitation. Borderline for renal replacement therapy. Discussed with ICU attending bedside. IV bicarbonate as needed
[2025-03-05] MEDS: 0.9% Normal Saline (500mL Bag) 500 ML 15 ML IV ×2 (12:37→18:35)
[2025-03-05] MEDS: Sodium Bicarbonate 150 MEQ in Dextrose 5%-Water (1000mL Bag) 1,000 ML 100 MEQ IV (13:30)
[2025-03-05 13:53] LABS: Reflex Lactate? Y
[2025-03-05 14:14] LABS: Prothrombin Time (Protime)PT. 18.3 SECONDS (11.7-14.9)
[2025-03-05 14:15] LABS: Partial Thromboplast Time 27.6 Seconds (24.1-36.2)
[2025-03-05 14:26] LABS: Fibrinogen 135 mg/dl (203-444)
--- NOTE | 2025-03-05 14:44 | CHAPLAIN ---
Type of Pastoral Visit ___ Initial Visit _x__ Follow-up Visit ___ On-call Visit ___ General Patient Visit ___ Spiritual Assessment ___ Family Conference ___ Bereavement ___ Rapid Response ___ Code Blue ___ Other (describe below) Pastoral Care Referral From ___ Patient _x__ Family ___ Nurse ___ Physician ___ Blind Slat Stapling Machine Operator ___ Char House Supervisor ___ Other (describe below) Sacrament/Intervention _x__ Active listening ___ Anointing ___ Baptist ___ Bereavement ___ Communion ___ Yumi exploration ___ _x__ Life review _x__ Prayer ___ Reconciliation ___ Sacrament of Sick _x_ Supportive presence ___ Wedding ___ Other (describe below) Pastoral Comments patient had been seen last week but today had an emergency surgery; pt is now in ICU; spouse and son are in the room as pt is intubated; spouse says I thought this was his today, but it must not be his time; family members are talkative and give life review and summary of family; family welcomes prayers and presence
[2025-03-05 16:00] LABS: LDH 336 U/L (87-241)
--- NOTE | 2025-03-05 16:02 | CON.PCM.ON_ITS ---
Assessment & Plan Assessment/Plan (1) Thrombocytopenia: Status: Acute Code(s): D69.6 - Thrombocytopenia, unspecified Plan: Etiology of thrombocytopenia is multifactorial including uremia, medications, GI bleeding, sepsis, DIC. Patient is critically ill. Check D-dimers which can be high with DIC. Since patient is bleeding, I will suggest platelet transfusion to keep platelets above 50,000, PRBC and FFP transfusions as needed. HPI Consult Data Date of Service:: 03/05/25 PCP / Referring Provider: Dr. Isaiah Han MD Attending: Dr. Lucina Gu MD Chief Complaint Chief Complaint: Asked to see Pt for Thrombocytopenia. History of Present Illness History of Present Illness: 79-year-old man was Admitted to [facility] on 02/24/2025 with UTI. Has been on antibiotics, platelets have subsequently decreased to 32 today. He has also developed progressive renal failure and now has a BUN of 114 and creatinine of 4.2. He deteriorated, today upper GI endoscopy on showed nonbleeding gastric ulcers, spurting duodenal ulcer with visible vessel which was injected. Advanced Directives Do you have a Healthcare Power of Block Handler?: Yes COUNTS INCLUDE 234 BEDS AT THE [facility] Medical History Anemia Anxiety and depression Hypertension History of prostate cancer CKD (chronic kidney disease) Hearing loss, left Hearing loss, right Chronic indwelling Worthy catheter TIA (transient ischemic attack) Chronic radiation cystitis Worthy catheter in place Wears glasses Arthritis Non-smoker Home Medications ?Medication ?Instructions ?Recorded ?Last Taken ?Type amlodipine 10 mg tablet 10 mg PO DAILY BLOOD PRESSUR E 12/08/18 02/24/25 History lisinopril 40 mg tablet 40 mg PO DAILY BLOOD PRESSUR E 12/08/18 02/23/25 History terazosin 5 mg capsule 5 mg PO QPM BLOOD PRESSURE 0 12/08/18 02/23/25 History multivit,Ca,min-iron 8 mg-folic 1 tab PO DAILY SUPPLEM ENT 11/04/23 02/24/25 History acid 200 mcg-lycopene 600 mcg tablet (A Thru [employer]) L.acidophil,salivari-Bifido 1 cap PO DAILY Bowel healt h 02/24/25 02/24/25 History bifidum-Strep thermoph 175 mg capsule ciprofloxacin HCl 500 mg tablet 500 mg PO BID 10 days #20 tabs 02/24/25 02/24/25 Rx (Cipro) Allergy/AdvReac Type Severity Reaction Status Date / Time meropenem Allergy Severe All blood Verified 03/03/25 09:09 cells low losartan Allergy Mild Rash Verified 02/24/25 23:38 Sulfa (Sulfonamide Allergy Hives Verified 02/24/25 23:38 Antibiotics) atenolol AdvReac Mild WEAKNESS Verified 02/24/25 23:38 hydrochlorothiazide AdvReac Mild UNKNOWN Verified 02/24/25 23:38 indomethacin (From Indocin) AdvReac Mild GI upset Verified 02/24/25 23:38 Family History Mother , secondary to complications with c-difficile colitis. No medical history per son. No problems noted. Father , in MVA. No medical history per son. No problems noted. Family History no significant family his Surgical History History of left knee replacement Hx of radical prostatectomy Hx of cystoscopy Hx of colonoscopy Social History household members: spouse housing: house Smoking Status: Never smoker alcohol intake: never substance use type: does not use ROS ROS Narrative Intubated, sedated attached to Vent by ET tube Physical Exam Narrative Sedated, intubated and attached to vent via ET tube. HEENT normocephalic Eyes no scleral icterus Neck supple Lymph Lymphatic: no lymphadenopathy noted Resp clear to auscultation bilaterally Cardio regular rhythm, S1 normal heart sound and S2 normal heart sound GI soft to palpation Skin Skin Narrative: Plus bruises right and left upper extremities Neuro Neuro Narrative: Sedated Vital Signs Temperature 96.7 F L 03/05/25 15:00 Temperature Source Temporal 03/05/25 15:00 Pulse Rate 21 L 03/05/25 15:43 Pulse Strength Normal (2+) 03/04/25 10:00 Respiratory Rate 21 H 03/05/25 15:43 Respiratory Effort Mechanically Ventilated 03/05/25 12:00 Respiratory Depth Normal 03/05/25 12:00 Respiratory Pattern Normal 03/05/25 12:00 Blood Pressure 112/54 L 03/05/25 15:00 Blood Pressure Mean 73 03/05/25 15:00 Blood Pressure Source Monitor 03/05/25 15:00 Blood Pressure Position Semi-Fowlers 03/05/25 15:00 Blood Pressure Location Right Forearm 03/05/25 15:00 Pulse Ox 86 03/05/25 15:43 Oxygen Delivery Method Mechanical Ventilator 03/05/25 15:00 Oxygen Flow Rate (L/min) 2 03/05/25 10:08 Fraction of Inspired Oxygen (FIO2) 50 03/05/25 15:00 Laboratory Results - last 24 hr 03/05/25 04:36: WBC 3.6 L, RBC 1.95 L, Hgb 5.7 L*, Hct 16.5 L, MCV 84.6, MCH 29.2, MCHC 34.5, RDW Std Deviation 46.8 H, RDW Coeff of Jerry 15.3 H, Plt Count 35 L*, Immature Gran % (Auto) 1.100 H, Neut % (Auto) 69.2, Lymph % (Auto) 20.8, [place] % (Auto) 8.9, Eos % (Auto) 0.0, Baso % (Auto) 0.0, Absolute Neuts (auto) 2.5, Absolute Lymphs (auto) 0.75 L, Nucleated RBC % 0, Differential Comment SCANNED, Platelet Estimate MKD DEC, Sodium 132 L, Potassium 4.8, Chloride 104, Carbon Dioxide 11.6 L, Anion Gap 16 H, BUN 111 H*, Creatinine 4.45 H, Estim Creat Clear Calc 16.01 L, Est GFR (MDRD) Non-Af 13 L, BUN/Creatinine Ratio 24.9 H, Glucose 258 H, Calcium 7.2 L, Iron 125, TIBC 156 L, Iron Saturation 80.1 H, Unsaturated IBC 31 L, Ferritin 1314 H 03/05/25 07:45: Blood Type O POSITIVE, Antibody Screen NEGATIVE, Crossmatch See Detail 03/05/25 07:45: Crossmatch See Detail 03/05/25 07:45: Crossmatch See Detail 03/05/25 09:04: POC Glucose 280 H 03/05/25 09:47: WBC 4.0 L, RBC 1.46 L, Hgb 4.3 L*, Hct 12.6 L, MCV 86.3, MCH 29.5, MCHC 34.1, RDW Std Deviation 47.9 H, RDW Coeff of Jerry 15.2 H, Plt Count 32 L*, MPV 15.3 H, Immature Gran % (Auto) 3.000 H, Neut % (Auto) 69.2, Lymph % (Auto) 16.9 L, [place] % (Auto) 10.9 H, Eos % (Auto) 0.0, Baso % (Auto) 0.0, Absolute Neuts (auto) 2.8, Absolute Lymphs (auto) 0.68 L, Nucleated RBC % 0, Sodium 132 L, Potassium 4.5, Chloride 104, Carbon Dioxide 11.4 L, Anion Gap 16 H , BUN 114 H*, Creatinine 4.42 H, Estim Creat Clear Calc 16.11 L, Est GFR (MDRD) Non-Af 13 L, BUN/Creatinine Ratio 25.8 H, Glucose 300 H, Lactic Acid 3.9 H*, Calcium 6.7 L, Total Creatine Kinase 136, Triglycerides 352 H 03/05/25 13:00: PT 18.3 H, INR 1.5, APTT 27.6, Fibrinogen 135 L, Lactate Dehydrogenase 336 H 03/05/25 14:44: Lactic Acid 1.8 Microbiology 03/05/25 04:10 Stool Stool Occult Blood (LISANDRA) - Final Occult Blood Positive Diagnostic Data Renal Ultrasound 02/28/25 08:54 IMPRESSION: Unremarkable renal ultrasound. No sonographic evidence of hydronephrosis. Simple right upper pole renal cyst measuring 1.4 cm. Reading Location: [id number] Brain CT 03/01/25 12:49 IMPRESSION: No acute intracranial abnormality. Reading Location: [id number] Chest CT 03/02/25 17:04 IMPRESSION: Mild cardiomegaly. Nonspecific moderate pericardial effusion. Small bilateral pleural effusions with adjacent bibasilar passive atelectasis and/or consolidation. Patchy ground-glass perihilar airspace opacities most likely represent alveolar edema, with infectious/inflammatory processes not excluded but less likely. Reading Location: [id number] Chest X-Ray 03/05/25 12:10 IMPRESSION: Endotracheal tube seen with tip approximately 4 cm above the jack. Nasogastric tube less well seen due to motion, but with tip at least at the proximal stomach. Cannot exclude proximal port placement within the distal esophagus, however. Lungs are hypoinflated, but appear clear of acute disease. No pleural effusion or pneumothorax is evident. The cardiomediastinal silhouette is remarkable for a somewhat tortuous aorta. No evidence of cardiomegaly. Asymmetric right glenohumeral joint degenerative changes are also noted. Reading Location: [id number]
--- NOTE | 2025-03-05 16:51 | PN_ITS ---
Subjective Subjective Patient seen and examined this morning. A rapid response was called this morning after patient went to the bathroom and nearly passed out. On my arrival, he was very weak and lethargic. Unable to do comprehensive review of systems due to his weakness and lethargy. His Hb dropped to 5.7 this morning. A unit of PRBC had been ordered. His blood sugar was WNL. Stat ABG done showed pH of 7.46, bicarb of 9.7 and biCO2 of 13.7. Stat lactic acid was ordered and patient transferred emergently to ICU. Gastroenterology was also informed urgently about need for GI evaluation and possible scope. Objective Data Objective Data Vital Signs: Vital Signs Temp Pulse Resp BP Pulse Ox O2 Del Method O2 Flow Rate 96.6 F L 89 20 H 109/70 100 Mechanical Ventilator 2 03/05/25 16:41 03/05/25 16:41 03/05/25 16:41 03/05/25 16:41 03/05/25 16:41 03/05/25 16:41 03/05/25 10:08 FiO2 50 03/05/25 16:41 Oxygen Flow Rate (L/min) 2 Oxygen Delivery Method Mechanical Ventilator Weight: 207 lb 3.752 oz Body Mass Index (BMI) 29.7 Intake & Output: Intake and Output for Last 24 Hours 03/03/25 03/04/25 03/05/25 23:59 23:59 23:59 Intake Total 1180 / 1180 1606.67 / 1606.67 3817.68 / 3817.68 Output Total 1725 / 1725 1300 / 1300 653 / 653 Balance -545 / -545 306.67 / 306.67 3164.68 / 3164.68 Lab / Micro Data 03/05/25 09:47 03/05/25 09:47 Labs: Laboratory Results - last 24 hr 03/05/25 04:36: WBC 3.6 L, RBC 1.95 L, Hgb 5.7 L*, Hct 16.5 L, MCV 84.6, MCH 29.2, MCHC 34.5, RDW Std Deviation 46.8 H, RDW Coeff of Jerry 15.3 H, Plt Count 35 L*, Immature Gran % (Auto) 1.100 H, Neut % (Auto) 69.2, Lymph % (Auto) 20.8, [place] % (Auto) 8.9, Eos % (Auto) 0.0, Baso % (Auto) 0.0, Absolute Neuts (auto) 2.5, Absolute Lymphs (auto) 0.75 L, Nucleated RBC % 0, Differential Comment SCANNED, Platelet Estimate MKD DEC, Sodium 132 L, Potassium 4.8, Chloride 104, C arbon Dioxide 11.6 L, Anion Gap 16 H, BUN 111 H*, Creatinine 4.45 H, Estim Creat Clear Calc 16.01 L, Est GFR (MDRD) Non-Af 13 L, BUN/Creatinine Ratio 24.9 H, G lucose 258 H, Calcium 7.2 L, Iron 125, TIBC 156 L, Iron Saturation 80.1 H, U nsaturated IBC 31 L, Ferritin 1314 H 03/05/25 07:45: Blood Type O POSITIVE, Antibody Screen NEGATIVE, Crossmatch See Detail 03/05/25 07:45: Crossmatch See Detail 03/05/25 07:45: Crossmatch See Detail 03/05/25 09:04: POC Glucose 280 H 03/05/25 09:47: WBC 4.0 L, RBC 1.46 L, Hgb 4.3 L*, Hct 12.6 L, MCV 86.3, MCH 29.5, MCHC 34.1, RDW Std Deviation 47.9 H, RDW Coeff of Jerry 15.2 H, Plt Count 32 L*, MPV 15.3 H, Immature Gran % (Auto) 3.000 H, Neut % (Auto) 69.2, Lymph % (Auto) 16.9 L, [place] % (Auto) 10.9 H, Eos % (Auto) 0.0, Baso % (Auto) 0.0, Absolute Neuts (auto) 2.8, Absolute Lymphs (auto) 0.68 L, Nucleated RBC % 0, S odium 132 L, Potassium 4.5, Chloride 104, Carbon Dioxide 11.4 L, Anion Gap 16 H, BUN 114 H*, Creatinine 4.42 H, Estim Creat Clear Calc 16.11 L, Est GFR (MDRD) Non-Af 13 L, BUN/Creatinine Ratio 25.8 H, Glucose 300 H, Lactic Acid 3.9 H*, C alcium 6.7 L, Total Creatine Kinase 136, Triglycerides 352 H 03/05/25 13:00: PT 18.3 H, INR 1.5, APTT 27.6, Fibrinogen 135 L, Lactate Dehydrogenase 336 H 03/05/25 14:44: Lactic Acid 1.8 Micro: Microbiology 03/05/25 11:45 Sputum, Induced/Lukens Gram Stain - Final 03/05/25 04:10 Stool Stool Occult Blood (LISANDRA) - Final Occult Blood Positive 02/24/25 22:00 Blood Culture (Wb) - Anticubital Right Blood Culture - Final No growth in 5 days. 02/24/25 22:27 Blood Culture (Wb) - Left Forearm Blood Culture - Final No growth in 5 days. 02/25/25 00:36 Mucosa - Nasopharyngeal Respiratory Panel (PCR) - Final ABG Data ABG results: ABG 03/05/25 03/05/25 09:16 12:00 Specimen Type ART ART Sample Site L Radial L Radial pH 7.46 H 7.18 L* Bicarbonate Actual 9.7 L 14.4 L Total CO2 10 16 Base Excess -14 L -14 L O2 Saturation 99 99 O2 % 3.0 70.0 ABG pCO2 13.7 L* 38.1 ABG pO2 118 H 160 H Talon Test Positive Positive Respiration Rate 16 O2 Delivery Device Cannula Adult Vent Vent Mode Not entered AC Tidal Volume 450.0 POC PEEP 5 Crit Call To/Read Back Yes Yes Blood Gas Notified Whom Edouard CASTILLO Blood Gas Notified Time 09:18:18 12:01:52 Radiography Diagnostic Testing: Radiology Impression Chest X-Ray 03/05/25 10:05 IMPRESSION: No acute cardiopulmonary process. Reading Location: [id number] Chest X-Ray 03/05/25 12:10 IMPRESSION: Endotracheal tube seen with tip approximately 4 cm above the jack. Nasogastric tube less well seen due to motion, but with tip at least at the proximal stomach. Cannot exclude proximal port placement within the distal esophagus, however. Lungs are hypoinflated, but appear clear of acute disease. No pleural effusion or pneumothorax is evident. The cardiomediastinal silhouette is remarkable for a somewhat tortuous aorta. No evidence of cardiomegaly. Asymmetric right glenohumeral joint degenerative changes are also noted. Reading Location: [address] Physical Exam Const alert, oriented x3 and no apparent distress General Appearance: cooperative HEENT normocephalic, head/scalp atraumatic, moist oral mucous membranes and oropharynx normal HEENT Narrative: mucosa bloody, Eyes EOMs intact bilaterally Neck supple and no JVD Lymph Lymphatic: no lymphedema noted Resp Resp Narrative: moderately diminished breath sounds bibasally, no wheezes or crackles. Was on 2L of oxygen by nasal canula at time of review Cardio regular rate, regular rhythm, S1 normal heart sound, S2 normal heart sound and no murmurs GI normal to inspection, nondistended, normoactive bowel sounds, soft to palpation and non-tender Extremity normal capillary refill, no clubbing, cyanosis or edema and no calf tenderness General Extremity: no tenderness to palpation of joints or extremities Neuro Neuro Narrative: patient weak, lethargic, encephalopathic Assessment & Plan Assessment/Plan (1) Thrombocytopenia: (2) CHRIS (acute kidney injury): (3) Anemia: (4) Hemorrhagic shock: (5) Acute hypotension: (6) Catheter-associated urinary tract infection: PLAN: Plan #A cute encephalopathy in the setting of acute GI bleed * patient nearly passed out on his way to the bathroom today. * He was found to be very confused and encephalopathic. * Rapid response was called. Patient emergently transferred to the ICU where he was emergently intubated. Blood pressure was also running low. His hemoglobin had dropped to 5.7 this morning. * Gastroenterology consulted and he had emergent EGD which showed a spurting bleeding peptic ulcer which was cauterized. Patient had to be emergently intubated when he got to the ICU. * hematology also consulted due to worsening pancytopenia * transfused with 2 units of PRBCs. * critical care consulted. Patient emergently intubated as above. * #Acute on chronic anemia due to GI bleed * Hb down to 5.7 this morning, and dropped further to 4.3. * had emergent EGD as above * transfused with 2 units of PRBCs * on IV pantoprazole drip after being given bolus. INR is 1.5. * GI and critical care on board. Transfuse to keep Hb >7 * Iron profile showed iron level of 125 with iron saturation of 80.1 and ferritin of 1314. * #Hemorrhagic shock * Patient emergently transferred to ICU. Now requiring Levophed. Transfused with 2 units of packed red blood cells as stated above. * Critical care on board. Management as per critical care * # Acute complicated UTI * Thought to be due to indwelling Worthy catheter. He does have a history of prostate cancer status post prostatectomy. * apparently declined to change catheter as it was recently changed and follow-up on outpatient basis. * Urine cultures grew procidentia with possible carbapenems producing Enterobacteriaceae and actinobacter as well as Enterococcus and corynebacterium stratum * On ciprofloxacin and Zosyn. * #CHRIS with anion gap metabolic acidosis * Creatinine is slightly down to 4.42 today. 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 * Nephrology on board. Cannot have kidney biopsy on account of thrombocytopenia. Kidney ultrasound was negative. * Started on IV Solu-Medrol on 03/02/2025. Patient is making urine. Per nephrology no indication to start dialysis now and to continue steroids for now. * Had an anion gap of 16 and bicarb is 11.4 * #Pancytopenia * Hemoglobin today dropped to 5.7 today, and down to 4.3 later today * platelets down to 35 today, from 50 yesterday. Now down further to 32. * wbc is 4.0. Hematology thought it was due to the meropenem he was previously on. * hematology consulted today as Hb is trending down further. * #Bilateral lower extremity edema: Improving. #History of TIA: On aspirin. However not on statin. Hold aspirin. #Hypertension: Blood pressure was low on admission so BP meds held. Improving now. Will monitor and resume BP meds DVT prophylaxis: SCDs. Charges/Coding Visit Charges Inpatient E&M: 53099 Subs Hosp L3
[2025-03-05 19:05] LABS: Hematocrit 20.6 % (40-54); Hemoglobin 7.1 g/dL (13.0-16.5); Immature Granulocytes Count 0.200 X10^3/uL (0.0-0.0); Mean Corp Hgb Conc 34.5 g/dL (32-36); Mean Corpuscular Volume 84.1 fL (80-94); NRBC Flagged by Analyzer 0 % (0-5); POSITIVE COUNT YES; Platelet Count 53 K/mm3 (150-450); RBC Distribution Width CV 15.9 % (11.6-14.6); RBC Distribution Width SD 49.6 fl (35.1-43.9); Red Blood Count 2.45 M/mm3 (4.6-6.2); White Blood Count 8.9 K/mm3 (4.4-11.0)
[2025-03-05 20:08] LABS: Cytoplasmic Ab (C-ANCA) <1:20 titer (Neg:<1:20); Perinuclear Ab (P-ANCA) <1:20 titer (Neg:<1:20)
[2025-03-05] MEDS: Propofol 10MG/Ml 1,000 MG/100 ML Bottle 8.5 MG CONT INF (20:11)
[2025-03-05] MEDS: Chlorhexidine 15 ML PO (21:02)
[2025-03-05] MEDS: 0.9% Normal Saline (250mL Bag) 250 ML 12.5 ML IV (21:54)
[2025-03-06] VITALS (41 sets, daily range): BP systolic 98–131; BP diastolic 58–84; PULSE 20–79; RESP 18–24; TEMP 35.5–36.4; O2SAT 93–100; BMI 31.9
[2025-03-06] MEDS: Sodium Bicarbonate 150 MEQ in Dextrose 5%-Water (1000mL Bag) 1,000 ML 100 MEQ IV ×2 (00:55→12:23)
[2025-03-06 04:46] LABS: Hematocrit 19.7 % (40-54); Hemoglobin 6.9 g/dL (13.0-16.5); Immature Granulocytes Count 0.190 X10^3/uL (0.0-0.0); Mean Corp Hgb Conc 35.0 g/dL (32-36); Mean Corpuscular Volume 83.1 fL (80-94); NRBC Flagged by Analyzer 0.3 % (0-5); POSITIVE COUNT YES; RBC Distribution Width CV 16.5 % (11.6-14.6); RBC Distribution Width SD 50.0 fl (35.1-43.9); Red Blood Count 2.37 M/mm3 (4.6-6.2); White Blood Count 6.3 K/mm3 (4.4-11.0)
[2025-03-06 04:56] LABS: Allen Test Positive; Base Excess -4 mmol/L (-2 to +2); FI02 35.0; PEEP 5; PO2 76 mmHG (75-100); RR 20; SITE L Radial; SO2 96 % (95-99)
[2025-03-06 05:03] LABS: Platelet Count 46 K/mm3 (150-450)
[2025-03-06] MEDS: Propofol 10MG/Ml 1,000 MG/100 ML Bottle 8.5 MG CONT INF (05:28)
[2025-03-06] MEDS: fentaNYL drip 100 ML 15 MCG CONT INF ×3 (05:28→19:43)
[2025-03-06] MEDS: Pantoprazole Sodium 80 MG in 0.9% Normal Saline (100mL Bag) 80 ML 10 MG CONT INF ×2 (05:28→15:31)
[2025-03-06 05:51] LABS: AST(SGOT) 25 U/L (<=37); Alanine Aminotransfer ALT/SGPT 32 U/L (<=46); Albumin, Serum 2.3 g/dL (3.4-4.8); Alkaline Phosphatase 87 U/L (40-129); Anion Gap 15 (5-15); BUN 113 mg/dL (4-19); BUN/Creat Ratio 26.2 RATIO (10-20); Calcium,Total 6.6 mg/dL (7.6-11.0); Carbon Dioxide 16.8 mmol/L (21.0-32.0); Chloride 103 mmol/L (98-108); Estimated Creatinine Clearance 17.09 ml/min (50-250); Globulin 1.8 g/dL (2.2-4.2); Glucose 270 mg/dL (70-99); Potassium 4.3 mmol/L (3.3-5.1)
--- NOTE | 2025-03-06 07:38 | PCM.PN.INT ---
Assessment & Plan Assessment/Plan (1) Hemorrhagic shock: PLAN: Plan RECOMMENDATIONS: 1. Continue assist-control mode of mechanical ventilation. Wean FiO2 and PEEP as tolerated. 2. Transfuse additional blood products as ordered. Check posttransfusion CBC. 3. Continue fentanyl and propofol for sedation. 4. Continue antimicrobials per ID recommendations. 5. Continue sodium bicarbonate infusion. 6. Continue PPI therapy. 7. Obtain follow-up ABG in the morning. 8. Hold on initiation of tube feeding. IMPRESSIONS: 1. Multifactorial shock Most likely the consequence of acute hemorrhagic shock coupled with sepsis. The patient was urgently transferred to the medical intensive care unit, where he underwent upper endoscopy by gastroenterology, which demonstrated 2 nonbleeding gastric ulcers along with a spurting duodenal ulcer, which was intervened upon. Will plan to continue a balanced transfusion protocol with packed red blood cells, platelets and FFP as needed. Recommend follow-up CBC after completion of transfusion. The patient has been weaned from vasopressor support and remains hemodynamically stable. Will plan to continue antimicrobials to address the patient's underlying urinary tract source of infection, per ID recommendations. The patient will be continued on PPI therapy as ordered. 2. Acute hypoxemic respiratory failure The patient acutely decompensated from a respiratory perspective during his upper endoscopy procedure. Therefore, he was emergently intubated. The patient will be continued on assist-control mode of mechanical ventilation, with a goal to wean FiO2 and PEEP as tolerated. My concern is that the patient would have been unable to compensate from a respiratory perspective for his significant underlying metabolic acidosis. The patient's acid-base status is improving with bicarbonate infusion. Will obtain follow-up ABG in the morning. Continue current supportive care. Propofol and fentanyl will be utilized for sedation. 3. Acute on chronic kidney disease/anion gap metabolic acidosis Clinical concern for possible AIN related to antimicrobial administration. His underlying thrombocytopenia has precluded the ability to proceed with kidney biopsy. Recommend continuing bicarbonate support. Management will be deferred to nephrology. 4. Pancytopenia Initially felt to be drug-induced at presentation. There has been continued decline in the patient's platelet count. The patient will receive platelets as part of his transfusion protocol. The patient was seen in consultation by hematology. 5. History of prostate cancer with obstructive pathology status post chronic indwelling Worthy catheter/hypertension/anemia Complicates care, management, recovery and prognosis. Continue supportive measures as noted above. TIME: 36 minutes of critical care time, independent of procedures, was spent addressing the patient's multifactorial shock, acute hypoxemic respiratory failure, acute on chronic kidney disease, pancytopenia, review of all data and collaboration with the care team. Subjective Subjective The patient was seen and examined at the bedside this morning. Events from the last 24 hours have been reviewed. The patient is currently afebrile, hemodynamically stable and maintaining appropriate oxygen saturations on assist-control mode of mechanical ventilation with an FiO2 requirement of 30% and PEEP of 5. The patient was able to be weaned off of Levophed completely yesterday. He is currently documented to be overall net +10.3 L for the hospitalization. The patient's white blood cell count has normalized. Hemoglobin this morning was noted to be 6.9 g/dL with a platelet count of 46,000. Arterial blood gases improved with a pH of 7.45, pCO2 of 29 and pO2 of 76. Chemistry profile was notable for a bicarbonate of 17, BUN of 113 and creatinine of 4.3. Objective Data Objective Data The patient's most recent lab work, culture data and imaging studies have all been personally reviewed. Sputum culture is pending. Vital Signs: Vital Signs Temp Pulse Resp BP Pulse Ox O2 Del Method O2 Flow Rate 97.1 F L 66 18 110/67 96 Mechanical Ventilator 2 03/06/25 07:32 03/06/25 07:32 03/06/25 07:32 03/06/25 07:32 03/06/25 07:32 03/06/25 07:32 03/05/25 10:08 FiO2 30 03/06/25 07:32 Oxygen Flow Rate (L/min) 2 Oxygen Delivery Method Mechanical Ventilator Weight: 222 lb 10.67 oz Body Mass Index (BMI) 31.9 Intake & Output: Intake and Output for Last 24 Hours 03/04/25 03/05/25 03/06/25 23:59 23:59 23:59 Intake Total 1606.67 / 1606.67 4537.46 / 4552.43 1464.64 / 1464.64 Output Total 1300 / 1300 1015 / 1015 500 / 500 Balance 306.67 / 306.67 3522.46 / 3537.43 964.64 / 964.64 Lab / Micro Data Attestation: I reviewed the patient's lab results. 03/06/25 04:35 03/06/25 04:35 Labs: Laboratory Results - last 24 hr 03/04/25 04:42: c-ANCA Antibody <1:20, Atypical p-ANCA <1:20, p-ANCA Antibody <1:20, Glomerular Base Memb Ab < 0.2, Complement C3 105, Complement C4 16 03/05/25 04:36: Iron 125, TIBC 156 L, Iron Saturation 80.1 H, Unsaturated IBC 31 L, Ferritin 1314 H 03/05/25 07:45: Blood Type O POSITIVE, Antibody Screen NEGATIVE, Crossmatch See Detail 03/05/25 07:45: Crossmatch See Detail 03/05/25 07:45: Crossmatch See Detail 03/05/25 09:04: POC Glucose 280 H 03/05/25 09:47: WBC 4.0 L, RBC 1.46 L, Hgb 4.3 L*, Hct 12.6 L, MCV 86.3, MCH 29.5, MCHC 34.1, RDW Std Deviation 47.9 H, RDW Coeff of Jerry 15.2 H, Plt Count 32 L*, MPV 15.3 H, Immature Gran % (Auto) 3.000 H, Neut % (Auto) 69.2, Lymph % (Auto) 16.9 L, [place] % (Auto) 10.9 H, Eos % (Auto) 0.0, Baso % (Auto) 0.0, Absolute Neuts (auto) 2.8, Absolute Lymphs (auto) 0.68 L, Nucleated RBC % 0, Sodium 132 L, Potassium 4.5, Chloride 104, Carbon Dioxide 11.4 L, Anion Gap 16 H, BUN 114 H*, Creatinine 4.42 H, Estim Creat Clear Calc 16.11 L, Est GFR (MDRD) Non-Af 13 L, BUN/Creatinine Ratio 25.8 H, Glucose 300 H, Lactic Acid 3.9 H*, Calcium 6.7 L, Total Creatine Kinase 136, Triglycerides 352 H 03/05/25 13:00: PT 18.3 H, INR 1.5, APTT 27.6, Fibrinogen 135 L, Lactate Dehydrogenase 336 H 03/05/25 14:44: Lactic Acid 1.8 03/05/25 18:56: WBC 8.9, RBC 2.45 L, Hgb 7.1 L, Hct 20.6 L, MCV 84.1, MCH 29.0, MCHC 34.5, RDW Std Deviation 49.6 H, RDW Coeff of Jerry 15.9 H, Plt Count 53 L, MPV TNP, Immature Gran % (Auto) 2.300 H, Neut % (Auto) 78.2 H, Lymph % (Auto) 8.2 L, [place] % (Auto) 11.2 H, Eos % (Auto) 0.0, Baso % (Auto) 0.1, Absolute Neuts (auto) 6.9, Absolute Lymphs (auto) 0.73 L, Nucleated RBC % 0 03/06/25 04:35: WBC 6.3, RBC 2.37 L, Hgb 6.9 L, Hct 19.7 L, MCV 83.1, MCH 29.1, MCHC 35.0, RDW Std Deviation 50.0 H, RDW Coeff of Jerry 16.5 H, Plt Count 46 L*, Immature Gran % (Auto) 3.000 H, Neut % (Auto) 70.4 H, Lymph % (Auto) 13.9 L, [place] % (Auto) 12.5 H, Eos % (Auto) 0.0, Baso % (Auto) 0.2, Absolute Neuts (auto) 4.5, Absolute Lymphs (auto) 0.88, Nucleated RBC % 0.3, Sodium 135, Potassium 4.3, Chloride 103, Carbon Dioxide 16.8 L, Anion Gap 15, BUN 113 H*, Creatinine 4.31 H, Estim Creat Clear Calc 17.09 L, Est GFR (MDRD) Non-Af 13 L, BUN/Creatinine Ratio 26.2 H, Glucose 270 H, Calcium 6.6 L, Total Bilirubin 0.70, AST 25, ALT 32, Alkaline Phosphatase 87, Total Protein 4.0 L, Albumin 2.3 L, Globulin 1.8 L, Albumin/Globulin Ratio 1.3 Micro: Microbiology 03/05/25 11:45 Sputum, Induced/Lukens Gram Stain - Final 03/05/25 04:10 Stool Stool Occult Blood (LISANDRA) - Final Occult Blood Positive 02/24/25 22:00 Blood Culture (Wb) - Anticubital Right Blood Culture - Final No growth in 5 days. 02/24/25 22:27 Blood Culture (Wb) - Left Forearm Blood Culture - Final No growth in 5 days. 02/25/25 00:36 Mucosa - Nasopharyngeal Respiratory Panel (PCR) - Final ABG Data ABG results: ABG 03/05/25 03/05/25 03/06/25 09:16 12:00 04:52 Specimen Type ART ART ART Sample Site L Radial L Radial L Radial pH 7.46 H 7.18 L* 7.45 Bicarbonate Actual 9.7 L 14.4 L 20.3 L Total CO2 10 16 21 Base Excess -14 L -14 L -4 L O2 Saturation 99 99 96 O2 % 3.0 70.0 35.0 ABG pCO2 13.7 L* 38.1 29.2 L ABG pO2 118 H 160 H 76 Talon Test Positive Positive Positive Respiration Rate 16 20 O2 Delivery Device Cannula Adult Vent Adult Vent Vent Mode Not entered [facility] Tidal Volume 450.0 450.0 POC PEEP 5 5 Crit Call To/Read Back Yes Yes Blood Gas Notified Whom Edouard CASTILLO Blood Gas Notified Time 09:18:18 12:01:52 Radiography Diagnostic Testing: Radiology Impression Chest X-Ray 03/05/25 10:05 IMPRESSION: No acute cardiopulmonary process. Reading Location: [id number] Chest X-Ray 03/05/25 12:10 IMPRESSION: Endotracheal tube seen with tip approximately 4 cm above the jack. Nasogastric tube less well seen due to motion, but with tip at least at the proximal stomach. Cannot exclude proximal port placement within the distal esophagus, however. Lungs are hypoinflated, but appear clear of acute disease. No pleural effusion or pneumothorax is evident. The cardiomediastinal silhouette is remarkable for a somewhat tortuous aorta. No evidence of cardiomegaly. Asymmetric right glenohumeral joint degenerative changes are also noted. Reading Location: [id number] Physical Exam Const Constitutional Narrative: The patient is intubated, sedated and mechanically ventilated. No ventilator dyssynchrony noted. HEENT normocephalic, head/scalp atraumatic and moist oral mucous membranes Mouth: endotracheal tube in place and OG tube in place Eyes EOMs intact bilaterally and conjunctivae normal Neck supple General: trachea midline Chest inspection of chest normal Resp Auscultation: diminished lung sounds; Negative for rales, rhonchi or wheezes Cardio regular rate, regular rhythm, S1 normal heart sound and S2 normal heart sound GI normal to inspection, nondistended, normoactive bowel sounds Narrative: Suprapubic catheter in place Extremity General Extremity: edema; Negative for clubbing Skin Skin Narrative: Scattered ecchymoses over extremities. Neuro Sensorium / Orientation: sedated on vent Charges/Coding Procedures Hospitalists Procedures: 00043 Critical Care 1st Hr
[2025-03-06] MEDS: 0.9% Normal Saline (500mL Bag) 500 ML 15 ML IV (09:01)
[2025-03-06] MEDS: CHLORHEXIDINE GLUC 2% CLOTH 1 EACH TOWELETTE TOPICAL (09:03)
[2025-03-06] MEDS: Chlorhexidine 15 ML PO ×2 (09:03→21:10)
[2025-03-06] MEDS: 0.9% Saline Lock 10 ML Syringe IV ×4 (09:18→20:38)
[2025-03-06] MEDS: Piperacil/Tazobactam 3.375 GM in 0.9% Normal Saline (50mL MB+) 50 ML IV ×2 (09:31→22:41)
--- NOTE | 2025-03-06 10:51 | PCM.PN.REN ---
Subjective Subjective Events noted. Remains intubated, hemodynamically more stable. GI note reviewed. Hemoglobin is stabilized. Urine output is still pretty decent. Creatinine slightly better today. Discussed with and son at bedside. Objective Data Objective Data Vital Signs: Vital Signs Temp Pulse Resp BP Pulse Ox O2 Del Method O2 Flow Rate 96.4 F L 66 20 H 112/63 97 Mechanical Ventilator 2 03/06/25 10:33 03/06/25 10:33 03/06/25 10:33 03/06/25 10:33 03/06/25 10:33 03/06/25 10:33 03/05/25 10:08 FiO2 30 03/06/25 09: Oxygen Flow Rate (L/min) 2 Oxygen Delivery Method Mechanical Ventilator Weight: 101 kg Body Mass Index (BMI) 31.9 Intake & Output: Intake and Output for Last 24 Hours 03/04/25 03/05/25 03/06/25 23:59 23:59 23:59 Intake Total 1606.67 / 1606.67 4537.46 / 4552.43 2334.14 / 2334.14 Output Total 1300 / 1300 1015 / 1015 500 / 500 Balance 306.67 / 306.67 3522.46 / 3537.43 1834.14 / 1834.14 Lab / Micro Data 03/06/25 04:35 03/06/25 04:35 Labs: Laboratory Results - last 24 hr 03/04/25 04:42: c-ANCA Antibody <1:20, Atypical p-ANCA <1:20, p-ANCA Antibody <1:20, Glomerular Base Memb Ab < 0.2, Complement C3 105, Complement C4 16 03/05/25 07:45: Crossmatch See Detail 03/05/25 07:45: Crossmatch See Detail 03/05/25 09:47: Total Creatine Kinase 136, Triglycerides 352 H 03/05/25 13:00: PT 18.3 H, INR 1.5, APTT 27.6, Fibrinogen 135 L, Lactate Dehydrogenase 336 H 03/05/25 14:44: Lactic Acid 1.8 03/05/25 18:56: WBC 8.9, RBC 2.45 L, Hgb 7.1 L, Hct 20.6 L, MCV 84.1, MCH 29.0, MCHC 34.5, RDW Std Deviation 49.6 H, RDW Coeff of Jerry 15.9 H, Plt Count 53 L, MPV TNP, Immature Gran % (Auto) 2.300 H, Neut % (Auto) 78.2 H, Lymph % (Auto) 8.2 L, [place] % (Auto) 11.2 H, Eos % (Auto) 0.0, Baso % (Auto) 0.1, Absolute Neuts (auto) 6.9, Absolute Lymphs (auto) 0.73 L, Nucleated RBC % 0 03/06/25 04:35: WBC 6.3, RBC 2.37 L, Hgb 6.9 L, Hct 19.7 L, MCV 83.1, MCH 29.1, MCHC 35.0, RDW Std Deviation 50.0 H, RDW Coeff of Jerry 16.5 H, Plt Count 46 L*, Immature Gran % (Auto) 3.000 H, Neut % (Auto) 70.4 H, Lymph % (Auto) 13.9 L, [place] % (Auto) 12.5 H, Eos % (Auto) 0.0, Baso % (Auto) 0.2, Absolute Neuts (auto) 4.5, Absolute Lymphs (auto) 0.88, Nucleated RBC % 0.3, Sodium 135, Potassium 4.3, Chloride 103, Carbon Dioxide 16.8 L, Anion Gap 15, BUN 113 H*, Creatinine 4.31 H, Estim Creat Clear Calc 17.09 L, Est GFR (MDRD) Non-Af 13 L, BUN/Creatinine Ratio 26.2 H, Glucose 270 H, Calcium 6.6 L, Total Bilirubin 0.70, AST 25, ALT 32, Alkaline Phosphatase 87, Total Protein 4.0 L, Albumin 2.3 L, Globulin 1.8 L, Albumin/Globulin Ratio 1.3 Micro: Microbiology 03/05/25 11:45 Sputum, Induced/Lukens Gram Stain - Final 03/05/25 04:10 Stool Stool Occult Blood (LISANDRA) - Final Occult Blood Positive 02/24/25 22:00 Blood Culture (Wb) - Anticubital Right Blood Culture - Final No growth in 5 days. 02/24/25 22:27 Blood Culture (Wb) - Left Forearm Blood Culture - Final No growth in 5 days. 02/25/25 00:36 Mucosa - Nasopharyngeal Respiratory Panel (PCR) - Final ABG Data ABG results: ABG 03/05/25 03/06/25 12:00 04:52 Specimen Type ART ART Sample Site L Radial L Radial pH 7.18 L* 7.45 Bicarbonate Actual 14.4 L 20.3 L Total CO2 16 21 Base Excess -14 L -4 L O2 Saturation 99 96 O2 % 70.0 35.0 ABG pCO2 38.1 29.2 L ABG pO2 160 H 76 Talon Test Positive Positive Respiration Rate 16 20 O2 Delivery Device Adult Vent Adult Vent Vent Mode AC AC Tidal Volume 450.0 450.0 POC PEEP 5 5 Crit Call To/Read Back Yes Blood Gas Notified Whom JONATHAN Blood Gas Notified Time 12:01:52 Radiography Diagnostic Testing: Radiology Impression Chest X-Ray 03/05/25 12:10 IMPRESSION: Endotracheal tube seen with tip approximately 4 cm above the jack. Nasogastric tube less well seen due to motion, but with tip at least at the proximal stomach. Cannot exclude proximal port placement within the distal esophagus, however. Lungs are hypoinflated, but appear clear of acute disease. No pleural effusion or pneumothorax is evident. The cardiomediastinal silhouette is remarkable for a somewhat tortuous aorta. No evidence of cardiomegaly. Asymmetric right glenohumeral joint degenerative changes are also noted. Reading Location: [address] Physical Exam Narrative oral mucosa crusted s1s2 no murmurs b/s equal, no wheezes, rhonchi or rales noted abdomen soft perdomo, light urine in tubing and bag Assessment & Plan Assessment/Plan (1) Chronic renal insufficiency: (2) CHRIS (acute kidney injury): PLAN: Baseline Cr is around 1.2 -1.3. Cr was close to baseline on admit Renal US ok supra pubic catheter in place increasing eosinophilia in CBC. no rash. no itching. thrombocytopenia. as per my discussion with hospitalist, hematology has been consulted. doubt its TTP since platelet count is normal on admit off heparin products for now other than a kidney biopsy no other way to rule out AIN for sure. however ID on consult today and imipenem has been taken off patient says only allergy he has is sulfa. took penicillin products without issues in the past since he is going off penems now, can monitor labs 03/03 -methylprednisolone 125mg bid started on 03/02 for presumed AIN -peripheral eosinophil resolved -non olgiuric -scr still uptrending -slightly worsening acidemia, po sodium bicarb started -bmp in am, might need renal support in form of IHD if renal function continues to worsens -thrombocytopenia remains the same 03/04 - Serum creatinine at baseline on admission (02/24 SCr 1.2). Yesterday SCr 4.36--> today SCr 4.48. Urine output yesterday 1.7 L, so far urine output 450 mL today. Per patient and appetite very poor due to painful oral ulcers. Will start maintenance IV fluids. Continue on Methylpred 125 mg IV twice daily. Potassium normal, bicarb 14 (was started on oral bicarb), volume status appears compensated, on room air, no acute indication for renal placement therapy today. Platelet count 50 today. White count 2.5 yesterday, 4.1 today, eosinophils 0.2%, no fevers. Labs ordered for the morning. Discussed nephrology plan with patient and at bedside, questions answered. 03/05/2025. Creatinine about the same. BUN is high, could be related to steroids. Unfortunately had decompensation overnight due to GI bleed. Will temporarily hold steroids. If stress dose steroids are needed from ICU standpoint, can use them. Acidotic, lactate levels are high. To get PRBC, IV fluids for resuscitation as per ICU. Still making urine, Perdomo indwelling with some urine output. Although this is less than yesterday. Potassium is okay. Will follow-up on acid-base status after resuscitation. Borderline for renal replacement therapy. Discussed with ICU attending bedside. IV bicarbonate as needed 03/06/2025. Creatinine is slightly better. High BUN, multifactorial including steroid use, upper GI bleed. Slightly better. Good urine output. Potassium is acceptable. Acidosis has improved with bicarbonate infusions. Overall appears to be recovering renal failure. No acute indications for renal replacement therapy. Discussed with ICU attending. Overall edematous, about 10 L positive with infusions, supportive therapy. Okay for Lasix today. Discussed with family at bedside.
--- NOTE | 2025-03-06 13:08 | PCM.PN.ID ---
Physical Exam Narrative Moved to icu, on vent Const no apparent distress Resp normal air movement Effort and Inspection: mechanically ventilated Cardio regular rate and regular rhythm GI soft to palpation, non-tender and non-distended Skin no rashes or lesions noted ID ID: Route of nutrition/ use of supplements: [] Nutritional Intake: [] IV Site: [] Worthy Catheter: [] Assessment & Plan Assessment/Plan (1) Catheter-associated urinary tract infection: PLAN: Ucx with possible CRE providencia, achromobacter, e faecalis, and corynebacterium. Eos have normalized. Suprapubic catheter in place. Will cont with cipro for the possible CRE and zosyn for the other organisms. Plan on stopping abx tomorrow to complete 7 days total. Will follow, d/w nursing (2) CHRIS (acute kidney injury): (3) Chronic renal insufficiency:
[2025-03-06] MEDS: Propofol 10MG/Ml 1,000 MG/100 ML Bottle 11.3 MG CONT INF ×2 (13:41→21:08)
[2025-03-06 15:03] LABS: Partial Thromboplast Time 27.6 Seconds (24.1-36.2); Prothrombin Time (Protime)PT. 15.9 SECONDS (11.7-14.9)
[2025-03-06 15:05] LABS: Hematocrit 21.8 % (40-54); Hemoglobin 7.7 g/dL (13.0-16.5); Mean Corp Hgb Conc 35.3 g/dL (32-36); Mean Corpuscular Volume 82.9 fL (80-94); POSITIVE COUNT YES; POSITIVE MORPHOLOGY YES; RBC Distribution Width CV 15.9 % (11.6-14.6); RBC Distribution Width SD 48.5 fl (35.1-43.9); Red Blood Count 2.63 M/mm3 (4.6-6.2); White Blood Count 8.7 K/mm3 (4.4-11.0)
--- NOTE | 2025-03-06 15:13 | PN_ITS ---
Subjective Subjective Patient seen and examined. He remains intubated and sedated. Unable to do review of systems due to him being intubated and sedated. Objective Data Objective Data Vital Signs: Vital Signs Temp Pulse Resp BP Pulse Ox O2 Del Method O2 Flow Rate 96.2 F L 51 L 20 H 114/78 98 Mechanical Ventilator 2 03/06/25 12:00 03/06/25 14:00 03/06/25 14:00 03/06/25 14:00 03/06/25 14:00 03/06/25 14:00 03/05/25 10:08 FiO2 30 03/06/25 13:33 Oxygen Flow Rate (L/min) 2 Oxygen Delivery Method Mechanical Ventilator Weight: 222 lb 10.67 oz Body Mass Index (BMI) 31.9 Intake & Output: Intake and Output for Last 24 Hours 03/04/25 03/05/25 03/06/25 23:59 23:59 23:59 Intake Total 1606.67 / 1606.67 4537.46 / 4552.43 3948.39 / 3948.39 Output Total 1300 / 1300 1015 / 1015 1925 / 1925 Balance 306.67 / 306.67 3522.46 / 3537.43 2023.39 / 2023.39 Lab / Micro Data 03/06/25 04:35 03/06/25 04:35 Labs: Laboratory Results - last 24 hr 03/04/25 04:42: c-ANCA Antibody <1:20, Atypical p-ANCA <1:20, p-ANCA Antibody <1:20, Glomerular Base Memb Ab < 0.2, Complement C3 105, Complement C4 16 03/05/25 07:45: Crossmatch See Detail 03/05/25 13:00: Lactate Dehydrogenase 336 H 03/05/25 14:44: Lactic Acid 1.8 03/05/25 18:56: WBC 8.9, RBC 2.45 L, Hgb 7.1 L, Hct 20.6 L, MCV 84.1, MCH 29.0, MCHC 34.5, RDW Std Deviation 49.6 H, RDW Coeff of Jerry 15.9 H, Plt Count 53 L, MPV TNP, Immature Gran % (Auto) 2.300 H, Neut % (Auto) 78.2 H, Lymph % (Auto) 8.2 L, [place] % (Auto) 11.2 H, Eos % (Auto) 0.0, Baso % (Auto) 0.1, Absolute Neuts (auto) 6.9, Absolute Lymphs (auto) 0.73 L, Nucleated RBC % 0 03/06/25 04:35: WBC 6.3, RBC 2.37 L, Hgb 6.9 L, Hct 19.7 L, MCV 83.1, MCH 29.1, MCHC 35.0, RDW Std Deviation 50.0 H, RDW Coeff of Jerry 16.5 H, Plt Count 46 L*, I mmature Gran % (Auto) 3.000 H, Neut % (Auto) 70.4 H, Lymph % (Auto) 13.9 L, [place] % (Auto) 12.5 H, Eos % (Auto) 0.0, Baso % (Auto) 0.2, Absolute Neuts (auto) 4.5, Absolute Lymphs (auto) 0.88, Nucleated RBC % 0.3, Sodium 135, Potassium 4.3, Chloride 103, Carbon Dioxide 16.8 L, Anion Gap 15, BUN 113 H*, Creatinine 4.31 H , Estim Creat Clear Calc 17.09 L, Est GFR (MDRD) Non-Af 13 L, BUN/Creatinine Ratio 26.2 H, Glucose 270 H, Calcium 6.6 L, Total Bilirubin 0.70, AST 25, ALT 32, Alkaline Phosphatase 87, Total Protein 4.0 L, Albumin 2.3 L, Globulin 1.8 L, Albumin/Globulin Ratio 1.3 Micro: Microbiology 03/05/25 11:45 Sputum, Induced/Lukens Gram Stain - Final 03/05/25 04:10 Stool Stool Occult Blood (LISANDRA) - Final Occult Blood Positive 02/24/25 22:00 Blood Culture (Wb) - Anticubital Right Blood Culture - Final No growth in 5 days. 02/24/25 22:27 Blood Culture (Wb) - Left Forearm Blood Culture - Final No growth in 5 days. 02/25/25 00:36 Mucosa - Nasopharyngeal Respiratory Panel (PCR) - Final ABG Data ABG results: ABG 03/06/25 04:52 Specimen Type ART Sample Site L Radial pH 7.45 Bicarbonate Actual 20.3 L Total CO2 21 Base Excess -4 L O2 Saturation 96 O2 % 35.0 ABG pCO2 29.2 L ABG pO2 76 Talon Test Positive Respiration Rate 20 O2 Delivery Device Adult Vent Vent Mode AC Tidal Volume 450.0 POC PEEP 5 Physical Exam Const Constitutional Narrative: intubated, sedated, RASS score is -4. HEENT normocephalic and head/scalp atraumatic HEENT Narrative: oral mucosa dry, with crusts of blood and superficial ulceration Neck supple and no JVD Lymph Lymphatic: no lymphedema noted Resp Resp Narrative: moderately diminished breath sounds bibasally, no wheezes or crackles.intubated, sedated. RASS score is -4. Cardio regular rate, regular rhythm, S1 normal heart sound, S2 normal heart sound and no murmurs GI normal to inspection, nondistended, normoactive bowel sounds, soft to palpation, non-tender and non-distended Extremity Extremity Narrative: 2+ edema in lower extremities. No edema in upper extremities. General Extremity: edema Skin Skin Narrative: has some ecchymosis of upper extremities Neuro Neuro Narrative: intubated, sedated. RASS score is -4 Assessment & Plan Assessment/Plan (1) Thrombocytopenia: (2) CHRIS (acute kidney injury): (3) Anemia: (4) Hemorrhagic shock: (5) Acute hypotension: (6) Catheter-associated urinary tract infection: PLAN: Plan #A cute encephalopathy in the setting of acute GI bleed * patient nearly passed out on his way to the bathroom yesterday. * He was found to be very confused and encephalopathic. * Rapid response was called. Patient emergently transferred to the ICU where he was emergently intubated. Blood pressure was also running low. His hemoglobin had dropped to 5.7 this morning. * Gastroenterology consulted and he had emergent EGD which showed a spurting bleeding peptic ulcer which was cauterized and clips placed. Patient had to be emergently intubated when he got to the ICU. * hematology also consulted due to worsening pancytopenia * transfused with 2 units of PRBCs. * critical care con board * he remains intubated and sedated. RASS score is -4./ * #Acute hypoxic respiratory failure * Was emergently intubated and sedated as above. * Critical care on board. managaemtn as per critical care. * #Acute on chronic anemia due to GI bleed * Hb down to 5.7 this morning, and dropped further to 4.3. * had emergent EGD as above * transfused with 2 units of PRBCs * on IV pantoprazole drip after being given bolus. INR is 1.5. * GI and critical care on board. Transfuse to keep Hb >7 * Iron profile showed iron level of 125 with iron saturation of 80.1 and ferritin of 1314. * #Hemorrhagic shock * Patient emergently transferred to ICU. Now requiring Levophed. Transfused with 2 units of packed red blood cells as stated above. * Critical care on board. Management as per critical care * # Acute complicated UTI * Thought to be due to indwelling Worthy catheter. He does have a history of prostate cancer status post prostatectomy. * apparently declined to change catheter as it was recently changed and follow-up on outpatient basis. * Urine cultures grew procidentia with possible carbapenems producing Enterobacteriaceae and actinobacter as well as Enterococcus and corynebacterium stratum * On ciprofloxacin and Zosyn. * #CHRIS with anion gap metabolic acidosis * Creatinine is slightly down some more today to 4.31. 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 * Nephrology on board. Cannot have kidney biopsy on account of thrombocytopenia. Kidney ultrasound was negative. * Started on IV Solu-Medrol on 03/02/2025. Patient is making urine. Per nephrology no indication to start dialysis now and to continue steroids for now. * Had an anion gap of 15 and bicarb is 16.8 * #Pancytopenia * Hemoglobin today 6.9. Went as low as 4.3 yesterday and was transfused with packed red blood cells. WBC today is 6.3 and platelets of 46. * Hematology consulted yesterday and felt that thrombocytopenia was likely multifactorial in light of the acute illness and the CHRIS with resultant uremia. * Recommended monitoring for now. WBC is up to 6.3. * platelets down to 35 today, from 50 yesterday. Now down further to 32. * wbc is 4.0. Hematology thought it was due to the meropenem he was previously on. * hematology consulted today as Hb is trending down further. * #Bilateral lower extremity edema: Improving. #History of TIA:aspirin held due to GI bleed #Hypertension: Blood pressure was low on admission so BP meds held. Improving now. Will monitor and resume BP meds DVT prophylaxis: SCDs. Charges/Coding Visit Charges Inpatient E&M: 27827 Subs Hosp L3
[2025-03-06 15:23] LABS: Platelet Count 49 K/mm3 (150-450)
[2025-03-06 15:24] LABS: Differential Indicated MANUAL DIFF
[2025-03-06 16:09] LABS: D-Dimer Quantitative (DVT/PE) 1.96 FEU/ug/m (0.27-0.49)
[2025-03-06 20:45] LABS: Neutrophil-Band 1 % (0-5); Neutrophil-Segmented 76 % (47-70); Total Cells Counted 100 (MANUAL DIFF)
[2025-03-07] VITALS (29 sets, daily range): BP systolic 110–167; BP diastolic 54–89; PULSE 60–96; RESP 16–27; TEMP 36.2–36.6; O2SAT 22–99; BMI 31.9
[2025-03-07] MEDS: Sodium Bicarbonate 150 MEQ in Dextrose 5%-Water (1000mL Bag) 1,000 ML 100 MEQ IV (01:04)
[2025-03-07] MEDS: Pantoprazole Sodium 80 MG in 0.9% Normal Saline (100mL Bag) 80 ML 10 MG CONT INF ×3 (01:35→22:26)
[2025-03-07] MEDS: fentaNYL drip 100 ML 15 MCG CONT INF (02:08)
[2025-03-07] MEDS: Propofol 10MG/Ml 1,000 MG/100 ML Bottle 11.3 MG CONT INF (04:18)
[2025-03-07 05:57] LABS: Allen Test Positive; Base Excess 4 mmol/L (-2 to +2); FI02 21.0; PEEP 5; PO2 61 mmHG (75-100); RR 20; SITE L Radial; SO2 95 % (95-99)
[2025-03-07 06:01] LABS: Hematocrit 22.1 % (40-54); Hemoglobin 8.0 g/dL (13.0-16.5); Mean Corp Hgb Conc 36.2 g/dL (32-36); Mean Corpuscular Volume 81.9 fL (80-94); POSITIVE COUNT YES; POSITIVE MORPHOLOGY YES; Platelet Count 60 K/mm3 (150-450); RBC Distribution Width CV 15.8 % (11.6-14.6); RBC Distribution Width SD 46.1 fl (35.1-43.9); Red Blood Count 2.70 M/mm3 (4.6-6.2); White Blood Count 8.1 K/mm3 (4.4-11.0)
[2025-03-07 06:05] LABS: Differential Indicated MANUAL DIFF
[2025-03-07 06:34] LABS: Anion Gap 16 (5-15); BUN 108 mg/dL (4-19); BUN/Creat Ratio 26.3 RATIO (10-20); Calcium,Total 6.5 mg/dL (7.6-11.0); Carbon Dioxide 20.8 mmol/L (21.0-32.0); Chloride 102 mmol/L (98-108); Estimated Creatinine Clearance 17.93 ml/min (50-250); Glucose 183 mg/dL (70-99); Potassium 3.3 mmol/L (3.3-5.1)
--- NOTE | 2025-03-07 07:25 | PCM.PN.INT ---
Assessment & Plan Assessment/Plan (1) Hemorrhagic shock: PLAN: Plan RECOMMENDATIONS: 1. Proceed with a trial of extubation this morning. 2. Once extubated, wean supplemental oxygen to maintain saturations at or above 90%. 3. Discontinue sodium bicarbonate infusion. 4. Administer IV Lasix x 1 today. 5. Continue to monitor blood counts and transfuse if hemoglobin drops below 7 g/dL. 6. Continue PPI therapy. 7. Antimicrobials per ID recommendations. 8. Encourage incentive spirometer use and mobilize patient as tolerated. IMPRESSIONS: 1. Multifactorial shock Resolved. Most likely the consequence of acute hemorrhagic shock coupled with sepsis. The patient was urgently transferred to the medical intensive care unit, where he underwent upper endoscopy by gastroenterology, which demonstrated 2 nonbleeding gastric ulcers along with a spurting duodenal ulcer, which was intervened upon. The patient was subsequently transfused packed red blood cells, platelets and FFP. With supportive care, the patient has improved clinically. He was able to pass a spontaneous breathing trial this morning and will therefore be extubated. Once extubated, wean supplemental oxygen to maintain saturations at or above 90%. Continue antimicrobials per ID recommendations. The patient will be continued on PPI therapy as ordered. 2. Acute hypoxemic respiratory failure The patient acutely decompensated from a respiratory perspective during his upper endoscopy procedure. Therefore, he was emergently intubated. Over the last 2 days, the patient has stabilized from a respiratory perspective and was able to be extubated this morning. Sputum cultures have not demonstrated any growth to date. Continue current supportive care. 3. Acute on chronic kidney disease/anion gap metabolic acidosis Clinical concern for possible AIN related to antimicrobial administration. His underlying thrombocytopenia has precluded the ability to proceed with kidney biopsy. Management will be deferred to nephrology. Continuous bicarbonate infusion can be discontinued from my perspective. 4. Pancytopenia Most likely multifactorial in etiology with drug-induced thrombocytopenia and sepsis contributing. The patient did receive platelets as part of his transfusion protocol. The patient was seen in consultation by hematology. Continue to monitor blood counts daily. There is no current indication for transfusion of additional platelets at this time. 5. History of prostate cancer with obstructive pathology status post chronic indwelling Worthy catheter/hypertension/anemia Complicates care, management, recovery and prognosis. Continue supportive measures as noted above. Recommend aggressive PT/OT. TIME: 34 minutes of critical care time, independent of procedures, was spent addressing the patient's multifactorial shock, acute hypoxemic respiratory failure, acute on chronic kidney disease, pancytopenia, review of all data and collaboration with the care team. Subjective Subjective The patient was seen and examined at the bedside this morning. Events from the last 24 hours have been reviewed. The patient is currently afebrile, hemodynamically stable and maintaining appropriate oxygen saturations on assist-control mode of mechanical ventilation with an FiO2 requirement of 21% and PEEP of 5. The patient is currently documented to be overall net +11.8 L for the hospitalization. The patient has a normal white blood cell count. Hemoglobin has improved to 8.0 g/dL. Platelet count is improved at 60,000. ABG this morning was notable for a pH of 7.57 with a pCO2 of 28 and pO2 of 61. Chemistry profile was notable for a bicarbonate of 21, BUN of 108 and creatinine of 4.1. Following my initial evaluation of the patient, he was able to complete a spontaneous awakening trial. Accordingly, the patient was placed on a spontaneous breathing trial, which she ultimately completed without issue. The patient is alert and appropriately interactive. He is able to follow commands appropriately. Therefore, the patient was extubated. Objective Data Objective Data The patient's most recent lab work, culture data and imaging studies have all been personally reviewed. Sputum culture is pending. Vital Signs: Vital Signs Temp Pulse Resp BP Pulse Ox O2 Del Method O2 Flow Rate 97.9 F 64 20 H 111/56 L 96 Mechanical Ventilator 2 03/07/25 04:00 03/07/25 07:12 03/07/25 07:12 03/07/25 07:00 03/07/25 07:12 03/07/25 07:00 03/05/25 10:08 FiO2 21 03/07/25 07:12 Oxygen Flow Rate (L/min) 2 Oxygen Delivery Method Mechanical Ventilator Weight: 222 lb 10.67 oz Body Mass Index (BMI) 31.9 Intake & Output: Intake and Output for Last 24 Hours 03/05/25 03/06/25 03/07/25 23:59 23:59 23:59 Intake Total 4537.46 / 4552.43 5669.59 / 5726.14 420.65 / 420.65 Output Total 1015 / 1015 2875 / 2875 750 / 750 Balance 3522.46 / 3537.43 2794.59 / 2851.14 -329.35 / -329.35 Lab / Micro Data Attestation: I reviewed the patient's lab results. 03/07/25 05:50 03/07/25 05:50 Labs: Laboratory Results - last 24 hr 03/05/25 07:45: Crossmatch See Detail 03/05/25 13:00: Haptoglobin 50 03/06/25 14:36: WBC 8.7, RBC 2.63 L, Hgb 7.7 L, Hct 21.8 L, MCV 82.9, MCH 29.3, MCHC 35.3, RDW Std Deviation 48.5 H, RDW Coeff of Jerry 15.9 H, Plt Count 49 L*, MPV TNP, Neut % (Auto) Not Reportable, Absolute Neuts (auto) 6.7, Absolute Lymphs (auto) 0.70 L, Total Counted 100, Neutrophils % (Manual) 76 H, Band Neutrophils % 1, Lymphocytes % (Manual) 8 L, Monocytes % (Manual) 10, Eosinophils % (Manual) 2, Metamyelocytes % 2 H, Myelocytes % 1 H, Diff Path Review October, Platelet Estimate MOD DEC, PT 15.9 H, INR 1.2, APTT 27.6, D-Dimer Quant (PE/DVT) 1.96 H* 03/07/25 05:50: WBC 8.1, RBC 2.70 L, Hgb 8.0 L, Hct 22.1 L, MCV 81.9, MCH 29.6, MCHC 36.2 H, RDW Std Deviation 46.1 H, RDW Coeff of Jerry 15.8 H, Plt Count 60 L, MPV TNP, Neut % (Auto) Not Reportable, Sodium 138, Potassium 3.3, Chloride 102, Carbon Dioxide 20.8 L, Anion Gap 16 H, BUN 108 H*, Creatinine 4.11 H, Estim Creat Clear Calc 17.93 L, Est GFR (MDRD) Non-Af 14 L, BUN/Creatinine Ratio 26.3 H, Glucose 183 H, Calcium 6.5 L* Micro: Microbiology 03/05/25 11:45 Sputum, Induced/Lukens Gram Stain - Final 03/05/25 04:10 Stool Stool Occult Blood (LISANDRA) - Final Occult Blood Positive 02/24/25 22:00 Blood Culture (Wb) - Anticubital Right Blood Culture - Final No growth in 5 days. 02/24/25 22:27 Blood Culture (Wb) - Left Forearm Blood Culture - Final No growth in 5 days. 02/25/25 00:36 Mucosa - Nasopharyngeal Respiratory Panel (PCR) - Final ABG Data ABG results: ABG 03/07/25 05:53 Specimen Type ART Sample Site L Radial pH 7.57 H Bicarbonate Actual 25.9 Total CO2 27 Base Excess 4 H O2 Saturation 95 O2 % 21.0 ABG pCO2 28.0 L ABG pO2 61 L Talon Test Positive Respiration Rate 20 O2 Delivery Device Adult Vent Vent Mode AC Tidal Volume 450.0 POC PEEP 5 Radiography Diagnostic Testing: Radiology Impression Chest X-Ray 03/05/25 10:05 IMPRESSION: No acute cardiopulmonary process. Reading Location: [facility] Chest X-Ray 03/05/25 12:10 IMPRESSION: Endotracheal tube seen with tip approximately 4 cm above the jack. Nasogastric tube less well seen due to motion, but with tip at least at the proximal stomach. Cannot exclude proximal port placement within the distal esophagus, however. Lungs are hypoinflated, but appear clear of acute disease. No pleural effusion or pneumothorax is evident. The cardiomediastinal silhouette is remarkable for a somewhat tortuous aorta. No evidence of cardiomegaly. Asymmetric right glenohumeral joint degenerative changes are also noted. Reading Location: [address] Physical Exam Const Constitutional Narrative: Remains intubated and mechanically ventilated. Currently tolerating spontaneous mode of mechanical ventilation. HEENT normocephalic, head/scalp atraumatic and moist oral mucous membranes Mouth: endotracheal tube in place and OG tube in place Eyes EOMs intact bilaterally and conjunctivae normal Neck supple General: trachea midline Chest inspection of chest normal Resp Auscultation: diminished lung sounds; Negative for rales, rhonchi or wheezes Cardio regular rate, regular rhythm, S1 normal heart sound and S2 normal heart sound GI normal to inspection, nondistended, normoactive bowel sounds Narrative: Suprapubic catheter in place Extremity General Extremity: edema; Negative for clubbing Skin Skin Narrative: Scattered ecchymoses over extremities. Neuro Neuro Narrative: Alert and able to follow commands appropriately. Charges/Coding Procedures Hospitalists Procedures: 78757 Critical Care 1st Hr
[2025-03-07 07:51] LABS: Differential Comment SCANNED; Neutrophil-Band 2 % (0-5); Neutrophil-Segmented 75 % (47-70); Total Cells Counted 100 (MANUAL DIFF)
[2025-03-07 07:52] LABS: Polychromasia RARE
--- NOTE | 2025-03-07 08:20 | NURSING ---
Pt extubated with this RN and respiratory per Dr tapia at 0815
[2025-03-07] MEDS: Calcium Gluconate IV 2 GM in 0.9% Normal Saline (100mL Bag) 100 ML IV (09:38)
[2025-03-07] MEDS: Piperacil/Tazobactam 3.375 GM in 0.9% Normal Saline (50mL MB+) 50 ML IV (09:38)
[2025-03-07] MEDS: CHLORHEXIDINE GLUC 2% CLOTH 1 EACH TOWELETTE TOPICAL (09:39)
--- NOTE | 2025-03-07 10:33 | PCM.PN.ID ---
Physical Exam Narrative Off vent, breathing ok, no fever Const no apparent distress Resp normal air movement and clear to auscultation bilaterally Cardio regular rate and regular rhythm GI soft to palpation, non-tender and non-distended Skin no rashes or lesions noted ID ID: Route of nutrition/ use of supplements: [] Nutritional Intake: [] IV Site: [] Worthy Catheter: [] Assessment & Plan Assessment/Plan (1) Catheter-associated urinary tract infection: PLAN: Ucx with possible CRE providencia, achromobacter, e faecalis, and corynebacterium. Eos have normalized. Suprapubic catheter in place. On cipro for the possible CRE and zosyn for the other organisms. Will stop today to complete 7 days total. Will follow as needed (2) CHRIS (acute kidney injury): (3) Chronic renal insufficiency:
--- NOTE | 2025-03-07 11:23 | PCM.PROGNOTE ---
Subjective Subjective Patient seen and examined. His and son were by his bedside. Patient was extubated this morning. He is on room air. He was quite frail but able to answer yes or no to questions. He denied being in pain and denied feeling short of breath. He denied any nausea or vomiting. Review of systems otherwise negative. Objective Data Objective Data Vital Signs: Vital Signs Temp Pulse Resp BP Pulse Ox O2 Del Method O2 Flow Rate 97.9 F 73 20 H 156/74 H 94 Room Air 2 03/07/25 04:00 03/07/25 10:00 03/07/25 10:00 03/07/25 10:00 03/07/25 10:00 03/07/25 10:00 03/05/25 10:08 FiO2 21 03/07/25 08:00 Oxygen Flow Rate (L/min) 2 Oxygen Delivery Method Room Air Weight: 222 lb 10.67 oz Body Mass Index (BMI) 31.9 Intake & Output: Intake and Output for Last 24 Hours 03/05/25 03/06/25 03/07/25 23:59 23:59 23:59 Intake Total 4537.46 / 4552.43 5669.59 / 5726.14 645.87 / 645.87 Output Total 1015 / 1015 2875 / 2875 953 / 953 Balance 3522.46 / 3537.43 2794.59 / 2851.14 -307.13 / -307.13 Lab / Micro Data 03/07/25 05:50 03/07/25 05:50 Labs: Laboratory Results - last 24 hr 03/05/25 07:45: Crossmatch See Detail 03/05/25 13:00: Haptoglobin 50 03/06/25 14:36: WBC 8.7, RBC 2.63 L, Hgb 7.7 L, Hct 21.8 L, MCV 82.9, MCH 29.3, MCHC 35.3, RDW Std Deviation 48.5 H, RDW Coeff of Jerry 15.9 H, Plt Count 49 L*, MPV TNP, Neut % (Auto) Not Reportable, Absolute Neuts (auto) 6.7, Absolute Lymphs (auto) 0.70 L, Total Counted 100, Neutrophils % (Manual) 76 H, Band Neutrophils % 1, Lymphocytes % (Manual) 8 L, Monocytes % (Manual) 10, Eosinophils % (Manual) 2, Metamyelocytes % 2 H, Myelocytes % 1 H, Diff Path Review May foll, Platelet Estimate MOD DEC, PT 15.9 H, INR 1.2, APTT 27.6, D-Dimer Quant (PE/DVT) 1.96 H* 03/07/25 05:50: WBC 8.1, RBC 2.70 L, Hgb 8.0 L, Hct 22.1 L, MCV 81.9, MCH 29.6, MCHC 36.2 H, RDW Std Deviation 46.1 H, RDW Coeff of Jerry 15.8 H, Plt Count 60 L, MPV TNP, Neut % (Auto) Not Reportable, Total Counted 100, Neutrophils % (Manual) 75 H, Band Neutrophils % 2, Lymphocytes % (Manual) 11 L, Monocytes % (Manual) 8, Metamyelocytes % 4 H, Differential Comment SCANNED, Platelet Estimate MOD DEC, Polychromasia RARE, Sodium 138, Potassium 3.3, Chloride 102, Carbon Dioxide 20.8 L, Anion Gap 16 H, BUN 108 H*, Creatinine 4.11 H, Estim Creat Clear Calc 17.93 L, Est GFR (MDRD) Non-Af 14 L, BUN/Creatinine Ratio 26.3 H, Glucose 183 H, Calcium 6.5 L* Micro: Microbiology 03/05/25 11:45 Sputum, Induced/Lukens Gram Stain - Final 03/05/25 04:10 Stool Stool Occult Blood (LISANDRA) - Final Occult Blood Positive 02/24/25 22:00 Blood Culture (Wb) - Anticubital Right Blood Culture - Final No growth in 5 days. 02/24/25 22:27 Blood Culture (Wb) - Left Forearm Blood Culture - Final No growth in 5 days. 02/25/25 00:36 Mucosa - Nasopharyngeal Respiratory Panel (PCR) - Final ABG Data ABG results: ABG 03/07/25 05:53 Specimen Type ART Sample Site L Radial pH 7.57 H Bicarbonate Actual 25.9 Total CO2 27 Base Excess 4 H O2 Saturation 95 O2 % 21.0 ABG pCO2 28.0 L ABG pO2 61 L Talon Test Positive Respiration Rate 20 O2 Delivery Device Adult Vent Vent Mode AC Tidal Volume 450.0 POC PEEP 5 Physical Exam Const alert, oriented x3 and no apparent distress Constitutional Narrative: frail. Extubated today. General Appearance: cooperative HEENT normocephalic and head/scalp atraumatic HEENT Narrative: lips bloody and crusted over. Eyes EOMs intact bilaterally Eyes Narrative: No icterus Neck supple and no JVD Lymph Lymphatic: no lymphedema noted Resp Resp Narrative: moderately diminished breath sounds bibasally, no wheezes or crackles. on room air. Extubated today. Cardio regular rate, regular rhythm, S1 normal heart sound, S2 normal heart sound and no murmurs GI normal to inspection, nondistended, normoactive bowel sounds, soft to palpation, non-tender and non-distended Extremity normal to inspection, full ROM and normal capillary refill Extremity Narrative: 2+ edema in lower extremities. No edema in upper extremities. General Extremity: edema and no tenderness to palpation of joints or extremities Skin General Skin Exam: no breakdown Neuro no focal motor deficits, no sensory deficits noted and deep tendon reflexes 2+ bilaterally Neuro Narrative: extubated, frail and weak. Able to answer questions. Sensorium / Orientation: awake and alert Motor Exam: general weakness Psych Psych Narrative: very frail and weak. Able to answer questions. Appearance: appropriate Assessment & Plan Assessment/Plan (1) Thrombocytopenia: (2) CHRIS (acute kidney injury): (3) Anemia: (4) Hemorrhagic shock: (5) Acute hypotension: (6) Catheter-associated urinary tract infection: PLAN: Plan #A cute encephalopathy in the setting of acute GI bleed due to bleeding peptic ulcer He was found to be very confused and encephalopathic. Rapid response was called. Patient emergently transferred to the ICU where he was emergently intubated. Blood pressure was also running low. His hemoglobin had dropped to 5.7 this morning. Gastroenterology consulted and he had emergent EGD which showed a spurting bleeding peptic ulcer which was cauterized and clips placed. Patient had to be emergently intubated when he got to the ICU. hematology also consulted due to worsening pancytopenia transfused with 2 units of PRBCs. critical care con board extubated this morning. Hb today is 8. Continue IV pantoprazole #Acute hypoxic respiratory failure Was emergently intubated and sedated as above. Critical care on board. management as per critical care. Was extubated this morning and is now on room air. #Acute on chronic anemia due to GI bleed Has been transfused with multiple units of packed red blood cells. Hemoglobin today is 8. Platelets also up to 60. On IV pantoprazole. Had EGD as above which showed a bleeding peptic ulcer. GI and critical care on board. Transfuse to keep Hb >7 Iron profile showed iron level of 125 with iron saturation of 80.1 and ferritin of 1314. #Hemorrhagic shock Resolved. Now off vasopressors and also extubated. # Acute complicated UTI Thought to be due to indwelling Worthy catheter. He does have a history of prostate cancer status post prostatectomy. apparently declined to change catheter as it was recently changed and follow-up on outpatient basis. Urine cultures grew procidentia with possible carbapenems producing Enterobacteriaceae and actinobacter as well as Enterococcus and corynebacterium stratum On ciprofloxacin and Zosyn. #CHRIS with anion gap metabolic acidosis Creatinine is down to 4.11 today and anion gap is 16 with bicarb of 20.8. Creatinine continues to trend down gently. 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 Nephrology on board. Cannot have kidney biopsy on account of thrombocytopenia. Kidney ultrasound was negative. Started on IV Solu-Medrol on 03/02/2025. Patient is making urine. Per nephrology no indication to start dialysis now and to continue steroids for now. #Pancytopenia Hemoglobin today 8.0. wbc is 8.1 and platelets are 60 Hematology consulted yesterday and felt that thrombocytopenia was likely multifactorial in light of the acute illness and the CHRIS with resultant uremia. hematology on board #Hypocalcemia: Calcium is 6.5. IV calcium replacement ordered #Bilateral lower extremity edema: Improving. #History of TIA:aspirin held due to GI bleed #Hypertension: Blood pressure was low on admission so BP meds held. Improving now. Will monitor and resume BP meds DVT prophylaxis: SCDs. Charges/Coding Visit Charges Inpatient E&M: 20919 Subs Hosp L2
--- NOTE | 2025-03-07 11:37 | PN.RENAL_ITS ---
Subjective Subjective Patient awake, sitting up in bed. at bedside. Objective Data Objective Data Vital Signs: Vital Signs Temp Pulse Resp BP Pulse Ox O2 Del Method O2 Flow Rate 97.9 F 73 20 H 156/74 H 94 Room Air 2 03/07/25 04:00 03/07/25 10:00 03/07/25 10:00 03/07/25 10:00 03/07/25 10:00 03/07/25 10:00 03/05/25 10:08 FiO2 21 03/07/25 08:00 Oxygen Flow Rate (L/min) 2 Oxygen Delivery Method Room Air Weight: 101 kg Body Mass Index (BMI) 31.9 Intake & Output: Intake and Output for Last 24 Hours 03/05/25 03/06/25 03/07/25 23:59 23:59 23:59 Intake Total 4537.46 / 4552.43 5669.59 / 5726.14 645.87 / 645.87 Output Total 1015 / 1015 2875 / 2875 953 / 953 Balance 3522.46 / 3537.43 2794.59 / 2851.14 -307.13 / -307.13 Lab / Micro Data 03/07/25 05:50 03/07/25 05:50 Labs: Laboratory Results - last 24 hr 03/05/25 07:45: Crossmatch See Detail 03/05/25 13:00: Haptoglobin 50 03/06/25 14:36: WBC 8.7, RBC 2.63 L, Hgb 7.7 L, Hct 21.8 L, MCV 82.9, MCH 29.3, MCHC 35.3, RDW Std Deviation 48.5 H, RDW Coeff of Jerry 15.9 H, Plt Count 49 L*, MPV TNP, Neut % (Auto) Not Reportable, Absolute Neuts (auto) 6.7, Absolute Lymphs (auto) 0.70 L, Total Counted 100, Neutrophils % (Manual) 76 H, Band Neutrophils % 1, Lymphocytes % (Manual) 8 L, Monocytes % (Manual) 10, Eosinophils % (Manual) 2, Metamyelocytes % 2 H, Myelocytes % 1 H, Diff Path Review October, Platelet Estimate MOD DEC, PT 15.9 H, INR 1.2, APTT 27.6, D- Dimer Quant (PE/DVT) 1.96 H* 03/07/25 05:50: WBC 8.1, RBC 2.70 L, Hgb 8.0 L, Hct 22.1 L, MCV 81.9, MCH 29.6, MCHC 36.2 H, RDW Std Deviation 46.1 H, RDW Coeff of Jerry 15.8 H, Plt Count 60 L, MPV TNP, Neut % (Auto) Not Reportable, Total Counted 100, Neutrophils % (Manual) 75 H, Band Neutrophils % 2, Lymphocytes % (Manual) 11 L, Monocytes % (Manual) 8, Metamyelocytes % 4 H, Differential Comment SCANNED, Platelet Estimate MOD DEC, Polychromasia RARE, Sodium 138, Potassium 3.3, Chloride 102, Carbon Dioxide 20.8 L, Anion Gap 16 H, BUN 108 H*, Creatinine 4.11 H, Estim Creat Clear Calc 17.93 L , Est GFR (MDRD) Non-Af 14 L, BUN/Creatinine Ratio 26.3 H, Glucose 183 H, C alcium 6.5 L* Micro: Microbiology 03/05/25 11:45 Sputum, Induced/Lukens Gram Stain - Final 03/05/25 04:10 Stool Stool Occult Blood (LISANDRA) - Final Occult Blood Positive 02/24/25 22:00 Blood Culture (Wb) - Anticubital Right Blood Culture - Final No growth in 5 days. 02/24/25 22:27 Blood Culture (Wb) - Left Forearm Blood Culture - Final No growth in 5 days. 02/25/25 00:36 Mucosa - Nasopharyngeal Respiratory Panel (PCR) - Final ABG Data ABG results: ABG 03/07/25 05:53 Specimen Type ART Sample Site L Radial pH 7.57 H Bicarbonate Actual 25.9 Total CO2 27 Base Excess 4 H O2 Saturation 95 O2 % 21.0 ABG pCO2 28.0 L ABG pO2 61 L Talon Test Positive Respiration Rate 20 O2 Delivery Device Adult Vent Vent Mode AC Tidal Volume 450.0 POC PEEP 5 Physical Exam Narrative Alert and oriented, no apparent distress oral mucosa crusted s1s2 no murmurs b/s equal, no wheezes, rhonchi or rales noted abdomen soft ++ edema bilateral legs perdomo, light urine in tubing and bag Assessment & Plan Assessment/Plan (1) Chronic renal insufficiency: (2) CHRIS (acute kidney injury): PLAN: Baseline Cr is around 1.2 -1.3. Cr was close to baseline on admit Renal US ok supra pubic catheter in place increasing eosinophilia in CBC. no rash. no itching. thrombocytopenia. as per my discussion with hospitalist, hematology has been consulted. doubt its TTP since platelet count is normal on admit off heparin products for now other than a kidney biopsy no other way to rule out AIN for sure. however ID on consult today and imipenem has been taken off patient says only allergy he has is sulfa. took penicillin products without issues in the past since he is going off penems now, can monitor labs 03/03 -methylprednisolone 125mg bid started on 03/02 for presumed AIN -peripheral eosinophil resolved -non olgiuric -scr still uptrending -slightly worsening acidemia, po sodium bicarb started -bmp in am, might need renal support in form of IHD if renal function continues to worsens -thrombocytopenia remains the same 03/04 - Serum creatinine at baseline on admission (02/24 SCr 1.2). Yesterday SCr 4.36--> today SCr 4.48. Urine output yesterday 1.7 L, so far urine output 450 mL today. Per patient and appetite very poor due to painful oral ulcers. Will start maintenance IV fluids. Continue on Methylpred 125 mg IV twice daily. Potassium normal, bicarb 14 (was started on oral bicarb), volume status appears compensated, on room air, no acute indication for renal placement therapy today. Platelet count 50 today. White count 2.5 yesterday, 4.1 today, eosinophils 0.2%, no fevers. Labs ordered for the morning. Discussed nephrology plan with patient and at bedside, questions answered. 03/05/2025. Creatinine about the same. BUN is high, could be related to steroids. Unfortunately had decompensation overnight due to GI bleed. Will temporarily hold steroids. If stress dose steroids are needed from ICU standpoint, can use them. Acidotic, lactate levels are high. To get PRBC, IV fluids for resuscitation as per ICU. Still making urine, Perdomo indwelling with some urine output. Although this is less than yesterday. Potassium is okay. Will follow-up on acid-base status after resuscitation. Borderline for renal replacement therapy. Discussed with ICU attending bedside. IV bicarbonate as needed 03/06/2025. Creatinine is slightly better. High BUN, multifactorial including steroid use, upper GI bleed. Slightly better. Good urine output. Potassium is acceptable. Acidosis has improved with bicarbonate infusions. Overall appears to be recovering renal failure. No acute indications for renal replacement therapy. Discussed with ICU attending. Overall edematous, about 10 L positive with infusions, supportive therapy. Okay for Lasix today. Discussed with family at bedside. 03/07/2025. Patient extubated this morning. Overall renal function stable and slightly improved. Today BUN 108, creatinine 4.11 (so far peak creatinine was 4.48 on 03/04). c-ANCA, p-ANCA<1:20, complements,gb membrane normal range. No acute indication for any renal placement therapy. Okay for Lasix again today. Urine output yesterday 2.6 L. Per cumulative I&O patient is net +11 L. Labs ordered for morning. Discussed nephrology plan with patient's at bedside. Assessment and plan reviewed with Dr. Steinberg.
[2025-03-08] VITALS (14 sets, daily range): BP systolic 135–184; BP diastolic 63–86; PULSE 80–120; RESP 17–27; TEMP 36.4–36.6; O2SAT 95–100; BMI 31.1
[2025-03-08] MEDS: 0.9% Saline Lock 10 ML Syringe IV ×2 (02:23→23:04)
[2025-03-08 04:12] LABS: Hematocrit 26.1 % (40-54); Hemoglobin 9.1 g/dL (13.0-16.5); Immature Granulocytes Count 0.280 X10^3/uL (0.0-0.0); Mean Corp Hgb Conc 34.9 g/dL (32-36); Mean Corpuscular Volume 82.9 fL (80-94); NRBC Flagged by Analyzer 0.6 % (0-5); POSITIVE COUNT YES; Platelet Count 90 K/mm3 (150-450); RBC Distribution Width CV 15.7 % (11.6-14.6); RBC Distribution Width SD 46.8 fl (35.1-43.9); Red Blood Count 3.15 M/mm3 (4.6-6.2); White Blood Count 8.9 K/mm3 (4.4-11.0)
[2025-03-08] MEDS: Pantoprazole Sodium 80 MG in 0.9% Normal Saline (100mL Bag) 80 ML 10 MG CONT INF ×2 (06:54→17:25)
--- NOTE | 2025-03-08 07:24 | PCM.PN.INT ---
Assessment & Plan Assessment/Plan (1) Hemorrhagic shock: PLAN: Plan RECOMMENDATIONS: 1. Continue to monitor blood counts and transfuse if hemoglobin drops below 7 g/dL. 2. Continue PPI therapy. 3. Encourage incentive spirometer use and mobilize patient as tolerated. 4. The patient is medically stable for transfer out of the intensive care unit. Will sign off from a critical care perspective. IMPRESSIONS: 1. Multifactorial shock Resolved. Most likely the consequence of acute hemorrhagic shock coupled with sepsis. The patient was urgently transferred to the medical intensive care unit, where he underwent upper endoscopy by gastroenterology, which demonstrated 2 nonbleeding gastric ulcers along with a spurting duodenal ulcer, which was intervened upon. The patient was subsequently transfused packed red blood cells, platelets and FFP. With supportive care, the patient improved clinically. The patient was able to be successfully extubated on March 07. He remains hemodynamically stable and is maintaining appropriate oxygen saturations on room air. He has since completed his antibiotic treatment course under the discretion of infectious diseases. He will be continued on PPI therapy. 2. Acute hypoxemic respiratory failure Resolved. The patient acutely decompensated from a respiratory perspective during his upper endoscopy procedure. Therefore, he was emergently intubated. Over the ensuing days, the patient has stabilized from a respiratory perspective and was able to be extubated. Sputum cultures have not demonstrated any growth to date. Continue current supportive care. 3. Acute on chronic kidney disease/anion gap metabolic acidosis Clinical concern for possible AIN related to antimicrobial administration. His underlying thrombocytopenia has precluded the ability to proceed with kidney biopsy. Management will be deferred to nephrology. 4. Pancytopenia Improved. Most likely multifactorial in etiology with drug-induced thrombocytopenia and sepsis contributing. The patient did receive platelets as part of his transfusion protocol. The patient was seen in consultation by hematology. Continue to monitor blood counts daily. There is no current indication for transfusion of additional platelets at this time. Plan to continue to transfuse packed red blood cells to maintain a hemoglobin at or above 7 g/dL. 5. History of prostate cancer with obstructive pathology status post chronic indwelling Worthy catheter/hypertension/anemia Complicates care, management, recovery and prognosis. Continue supportive measures as noted above. PT/OT to work with the patient. This note was generated with [employer] software. It may contain incorrect words, spelling, and punctuation that were not noted in checking the note before signing. Subjective Subjective The patient was seen and examined at the bedside this morning. Events from the last 24 hours have been reviewed. The patient is currently afebrile, hemodynamically stable and maintaining appropriate oxygen saturations on room air. No overnight issues were identified by the nursing staff. The patient reported that he is extremely thirsty this morning. He is currently documented to be overall net +10.4 L for the hospitalization. White blood cell count is normal. Hemoglobin was noted to be 9.1 g/dL. Platelet count this morning was 90,000. Potassium is low at 3.1 with a BUN of 102 and creatinine of 4.3. Serum bicarbonate is normal. Objective Data Objective Data The patient's most recent lab work, culture data and imaging studies have all been personally reviewed. Sputum culture is pending. Vital Signs: Vital Signs Temp Pulse Resp BP Pulse Ox O2 Del Method O2 Flow Rate 97.8 F 120 H 23 H 155/69 H 99 Room Air 2 03/08/25 04:00 03/08/25 07:00 03/08/25 07:00 03/08/25 07:00 03/08/25 07:00 03/08/25 07:00 03/05/25 10:08 FiO2 21 03/07/25 08:00 Oxygen Flow Rate (L/min) 2 Oxygen Delivery Method Room Air Weight: 218 lb 0.595 oz Body Mass Index (BMI) 31.1 Intake & Output: Intake and Output for Last 24 Hours 03/06/25 03/07/25 03/08/25 23:59 23:59 23:59 Intake Total 5669.59 / 5726.14 2441.84 / 2441.84 84.67 / 84.67 Output Total 2875 / 2875 3503 / 3503 750 / 750 Balance 2794.59 / 2851.14 -1061.16 / -1061.16 -665.33 / -665.33 Lab / Micro Data Attestation: I reviewed the patient's lab results. 03/08/25 04:00 03/08/25 08:10 Labs: Laboratory Results - last 24 hr 03/05/25 07:45: Crossmatch See Detail 03/07/25 05:50: Absolute Neuts (auto) 6.2, Absolute Lymphs (auto) 0.90, Total Counted 100, Neutrophils % (Manual) 75 H, Band Neutrophils % 2, Lymphocytes % (Manual) 11 L, Monocytes % (Manual) 8, Metamyelocytes % 4 H, Differential Comment SCANNED, Platelet Estimate MOD DEC, Polychromasia RARE 03/08/25 04:00: WBC 8.9, RBC 3.15 L, Hgb 9.1 L, Hct 26.1 L, MCV 82.9, MCH 28.9, MCHC 34.9, RDW Std Deviation 46.8 H, RDW Coeff of Jerry 15.7 H, Plt Count 90 L, MPV TNP, Immature Gran % (Auto) 3.200 H, Neut % (Auto) 77.8 H, Lymph % (Auto) 9.2 L, Meade % (Auto) 8.6, Eos % (Auto) 1.1, Baso % (Auto) 0.1, Absolute Neuts (auto) 6.9, Absolute Lymphs (auto) 0.82 L, Nucleated RBC % 0.6 Micro: Microbiology 03/05/25 11:45 Sputum, Induced/Lukens Gram Stain - Final 03/05/25 04:10 Stool Stool Occult Blood (LISANDRA) - Final Occult Blood Positive 02/24/25 22:00 Blood Culture (Wb) - Anticubital Right Blood Culture - Final No growth in 5 days. 02/24/25 22:27 Blood Culture (Wb) - Left Forearm Blood Culture - Final No growth in 5 days. 02/25/25 00:36 Mucosa - Nasopharyngeal Respiratory Panel (PCR) - Final ABG Data ABG results: ABG 03/07/25 05:53 Specimen Type ART Sample Site L Radial pH 7.57 H Bicarbonate Actual 25.9 Total CO2 27 Base Excess 4 H O2 Saturation 95 O2 % 21.0 ABG pCO2 28.0 L ABG pO2 61 L Talon Test Positive Respiration Rate 20 O2 Delivery Device Adult Vent Vent Mode AC Tidal Volume 450.0 POC PEEP 5 Radiography Diagnostic Testing: Radiology Impression Chest X-Ray 03/05/25 10:05 IMPRESSION: No acute cardiopulmonary process. Reading Location: [id number] Chest X-Ray 03/05/25 12:10 IMPRESSION: Endotracheal tube seen with tip approximately 4 cm above the jack. Nasogastric tube less well seen due to motion, but with tip at least at the proximal stomach. Cannot exclude proximal port placement within the distal esophagus, however. Lungs are hypoinflated, but appear clear of acute disease. No pleural effusion or pneumothorax is evident. The cardiomediastinal silhouette is remarkable for a somewhat tortuous aorta. No evidence of cardiomegaly. Asymmetric right glenohumeral joint degenerative changes are also noted. Reading Location: [address] Physical Exam Const alert and no apparent distress General Appearance: cooperative HEENT normocephalic, head/scalp atraumatic and moist oral mucous membranes Eyes EOMs intact bilaterally and conjunctivae normal Neck supple General: trachea midline Chest inspection of chest normal Resp Auscultation: diminished lung sounds; Negative for rales, rhonchi or wheezes Cardio regular rate, regular rhythm, S1 normal heart sound and S2 normal heart sound GI normal to inspection, nondistended, normoactive bowel sounds Narrative: Suprapubic catheter in place Extremity General Extremity: edema; Negative for clubbing Skin Skin Narrative: Scattered ecchymoses over extremities. Neuro CN's II-XII intact bilaterally, moves all extremities and no focal motor deficits Psych Mood & Affect: flat affect Charges/Coding Visit Charges Inpatient E&M: 59697 Subs Hosp L3
[2025-03-08 08:36] LABS: Anion Gap 16 (5-15); BUN 102 mg/dL (4-19); BUN/Creat Ratio 23.6 RATIO (10-20); Calcium,Total 7.1 mg/dL (7.6-11.0); Carbon Dioxide 22.8 mmol/L (21.0-32.0); Chloride 101 mmol/L (98-108); Estimated Creatinine Clearance 16.88 ml/min (50-250); Glucose 167 mg/dL (70-99); Potassium 3.1 mmol/L (3.3-5.1)
[2025-03-08] MEDS: Potassium Chloride Oral Soln 20 MEQ/15 ML UDC 40 MEQ PO (12:39)
--- NOTE | 2025-03-08 13:29 | CASEMGMT ---
Discharge Planning A list of SNF providers including quality and resource use data and consistent with the patient's preferred geographic region, medical needs, and insurance network was created in [facility].? This list was provided to the pt and his . Elisa Martin, Discharge Planning Asst.
--- NOTE | 2025-03-08 14:09 | PN_ITS ---
Subjective Subjective Patient seen and examined. His was by his bedside. Patient remains frail and weak. He denied being in pain and denied feeling short of breath or having any chest pain or palpitations. He is on room air. His creatinine has trended up slightly to 4.32 today. Anion gap is 16. Objective Data Objective Data Vital Signs: Vital Signs Temp Pulse Resp BP Pulse Ox O2 Del Method O2 Flow Rate 97.8 F 81 19 H 140/86 H 100 Room Air 2 03/08/25 04:00 03/08/25 12:00 03/08/25 12:00 03/08/25 12:00 03/08/25 12:00 03/08/25 12:00 03/05/25 10:08 FiO2 21 03/07/25 08:00 Oxygen Flow Rate (L/min) 2 Oxygen Delivery Method Room Air Weight: 218 lb 0.595 oz Body Mass Index (BMI) 31.1 Intake & Output: Intake and Output for Last 24 Hours 03/06/25 03/07/25 03/08/25 23:59 23:59 23:59 Intake Total 5669.59 / 5726.14 2441.84 / 2441.84 334.67 / 334.67 Output Total 2875 / 2875 3503 / 3503 750 / 750 Balance 2794.59 / 2851.14 -1061.16 / -1061.16 -415.33 / -415.33 Lab / Micro Data 03/08/25 04:00 03/08/25 08:10 Labs: Laboratory Results - last 24 hr 03/07/25 05:50: Absolute Neuts (auto) 6.2, Absolute Lymphs (auto) 0.90 03/08/25 04:00: WBC 8.9, RBC 3.15 L, Hgb 9.1 L, Hct 26.1 L, MCV 82.9, MCH 28.9, MCHC 34.9, RDW Std Deviation 46.8 H, RDW Coeff of Jerry 15.7 H, Plt Count 90 L, MPV TNP, Immature Gran % (Auto) 3.200 H, Neut % (Auto) 77.8 H, Lymph % (Auto) 9.2 L, [place] % (Auto) 8.6, Eos % (Auto) 1.1, Baso % (Auto) 0.1, Absolute Neuts (auto) 6.9, Absolute Lymphs (auto) 0.82 L, Nucleated RBC % 0.6 03/08/25 08:10: Sodium 139, Potassium 3.1 L, Chloride 101, Carbon Dioxide 22.8, Anion Gap 16 H, BUN 102 H*, Creatinine 4.32 H, Estim Creat Clear Calc 16.88 L, E st GFR (MDRD) Non-Af 13 L, BUN/Creatinine Ratio 23.6 H, Glucose 167 H, Calcium 7.1 L Micro: Microbiology 03/05/25 11:45 Sputum, Induced/Lukens Gram Stain - Final 03/05/25 11:45 Sputum, Induced/Lukens Respiratory Culture - Final Corynebacterium striatum 03/05/25 04:10 Stool Stool Occult Blood (LISANDRA) - Final Occult Blood Positive 02/24/25 22:00 Blood Culture (Wb) - Anticubital Right Blood Culture - Final No growth in 5 days. 02/24/25 22:27 Blood Culture (Wb) - Left Forearm Blood Culture - Final No growth in 5 days. 02/25/25 00:36 Mucosa - Nasopharyngeal Respiratory Panel (PCR) - Final Physical Exam Const alert and oriented x3 Constitutional Narrative: remains very weak and frail. General Appearance: cooperative Orientation / Consciousness: lethargic HEENT normocephalic, head/scalp atraumatic, moist oral mucous membranes and oropharynx normal Eyes EOMs intact bilaterally Neck supple and no JVD Lymph Lymphatic: no lymphedema noted Resp Resp Narrative: moderately diminished breath sounds bibasally, no wheezes or crackles. Remains on room air. Cardio regular rate, regular rhythm, S1 normal heart sound, S2 normal heart sound and no murmurs GI normal to inspection, nondistended, normoactive bowel sounds, soft to palpation, non-tender and non-distended Extremity normal to inspection and full ROM Extremity Narrative: 2+ edema in lower extremities. No edema in upper extremities. General Extremity: edema and no tenderness to palpation of joints or extremities Skin Skin Narrative: has some ecchymosis of upper extremities General Skin Exam: no breakdown Neuro no focal motor deficits, no sensory deficits noted and deep tendon reflexes 2+ bilaterally Neuro Narrative: remains very frail and weak. Sensorium / Orientation: awake and alert Motor Exam: general weakness Psych Psych Narrative: very frail and weak. Able to answer questions. Assessment & Plan Assessment/Plan (1) Thrombocytopenia: (2) CHRIS (acute kidney injury): (3) Anemia: (4) Hemorrhagic shock: (5) Acute hypotension: (6) Catheter-associated urinary tract infection: PLAN: Plan #A cute encephalopathy in the setting of acute GI bleed * due to bleeding peptic ulcer * Rapid response was called. Patient emergently transferred to the ICU where he was emergently intubated. Blood pressure was also running low. His hemoglobin had dropped to 5.7 this morning. * Gastroenterology consulted and he had emergent EGD which showed a spurting bleeding peptic ulcer which was cauterized and clips placed. Patient had to be emergently intubated when he got to the ICU. * hematology also consulted due to worsening pancytopenia * transfused with 2 units of PRBCs. * critical care con board * now extubated, and Hb today is 9.1. * Continue IV pantoprazole * #Acute hypoxic respiratory failure * Was emergently intubated and sedated as above. * Critical care on board. management as per critical care. * Now extubated and remains on room air * #Acute on chronic anemia due to GI bleed * Has been transfused with multiple units of packed red blood cells. Hemoglobin today is 9.1 * Platelets also up to 690 On IV pantoprazole. * Had EGD as above which showed a bleeding peptic ulcer. * GI and critical care on board. Transfuse to keep Hb >7 * Iron profile showed iron level of 125 with iron saturation of 80.1 and ferritin of 1314. * #Hemorrhagic shock * Resolved. Now off vasopressors and also extubated. * * # Acute complicated UTI * Thought to be due to indwelling Worthy catheter. He does have a history of prostate cancer status post prostatectomy. * apparently declined to change catheter as it was recently changed and follow-up on outpatient basis. * Urine cultures grew procidentia with possible carbapenems producing Enterobacteriaceae and actinobacter as well as Enterococcus and corynebacterium stratum * COmpleted a course of ciprofloxacin and Zosyn. * #CHRIS with anion gap metabolic acidosis * Creatinine is slightly up to 4.32 today and anion gap is 16 with bicarb of 22.8. * Patient was initially on meropenem on outpatient basis and is thought that his CHRIS is due to acute interstitial nephritis from the meropenem. * Nephrology on board. Cannot have kidney biopsy on account of thrombocytopenia. Kidney ultrasound was negative. * Started on IV Solu-Medrol on 03/02/2025. Patient is making urine. Per nephrology no indication to start dialysis now and to continue steroids for now. * #Pancytopenia * Hemoglobin today is 9.1. platelets are up to 90 * Hematology consulted and felt that thrombocytopenia was likely multifactorial in light of the acute illness and the CHRIS with resultant uremia. * hematology on board #Hypocalcemia: Calcium is up to 7.1. #Bilateral lower extremity edema: Improving. #History of TIA:aspirin held due to GI bleed #Hypertension: Blood pressure was low on admission so BP meds held. Improving now. Will monitor and resume BP meds DVT prophylaxis: SCDs. Disposition: Transfer to PCU today. Charges/Coding Visit Charges Inpatient E&M: 88715 Subs Hosp L2
--- NOTE | 2025-03-08 15:02 | PCM.PN.REN ---
Subjective Subjective extubated Objective Data Objective Data Vital Signs: Vital Signs Temp Pulse Resp BP Pulse Ox O2 Del Method O2 Flow Rate 97.8 F 81 19 H 140/86 H 100 Room Air 2 03/08/25 04:00 03/08/25 12:00 03/08/25 12:00 03/08/25 12:00 03/08/25 12:00 03/08/25 12:00 03/05/25 10:08 FiO2 21 03/07/25 08:00 Oxygen Flow Rate (L/min) 2 Oxygen Delivery Method Room Air Weight: 98.9 kg Body Mass Index (BMI) 31.1 Intake & Output: Intake and Output for Last 24 Hours 03/06/25 03/07/25 03/08/25 23:59 23:59 23:59 Intake Total 5669.59 / 5726.14 2441.84 / 2441.84 334.67 / 334.67 Output Total 2875 / 2875 3503 / 3503 750 / 750 Balance 2794.59 / 2851.14 -1061.16 / -1061.16 -415.33 / -415.33 Lab / Micro Data 03/08/25 04:00 03/08/25 08:10 Labs: Laboratory Results - last 24 hr 03/07/25 05:50: Absolute Neuts (auto) 6.2, Absolute Lymphs (auto) 0.90 03/08/25 04:00: WBC 8.9, RBC 3.15 L, Hgb 9.1 L, Hct 26.1 L, MCV 82.9, MCH 28.9, MCHC 34.9, RDW Std Deviation 46.8 H, RDW Coeff of Jerry 15.7 H, Plt Count 90 L, MPV TNP, Immature Gran % (Auto) 3.200 H, Neut % (Auto) 77.8 H, Lymph % (Auto) 9.2 L, [place] % (Auto) 8.6, Eos % (Auto) 1.1, Baso % (Auto) 0.1, Absolute Neuts (auto) 6.9, Absolute Lymphs (auto) 0.82 L, Nucleated RBC % 0.6 03/08/25 08:10: Sodium 139, Potassium 3.1 L, Chloride 101, Carbon Dioxide 22.8, Anion Gap 16 H, BUN 102 H*, Creatinine 4.32 H, Estim Creat Clear Calc 16.88 L, Est GFR (MDRD) Non-Af 13 L, BUN/Creatinine Ratio 23.6 H, Glucose 167 H, Calcium 7.1 L Micro: Microbiology 03/05/25 11:45 Sputum, Induced/Lukens Gram Stain - Final 03/05/25 11:45 Sputum, Induced/Lukens Respiratory Culture - Final Corynebacterium striatum 03/05/25 04:10 Stool Stool Occult Blood (LISANDRA) - Final Occult Blood Positive 02/24/25 22:00 Blood Culture (Wb) - Anticubital Right Blood Culture - Final No growth in 5 days. 02/24/25 22:27 Blood Culture (Wb) - Left Forearm Blood Culture - Final No growth in 5 days. 02/25/25 00:36 Mucosa - Nasopharyngeal Respiratory Panel (PCR) - Final Physical Exam Narrative Alert and oriented, no apparent distress oral mucosa crusted s1s2 no murmurs b/s equal, no wheezes, rhonchi or rales noted abdomen soft ++ edema bilateral legs perdomo, light urine in tubing and bag Assessment & Plan Assessment/Plan (1) Chronic renal insufficiency: (2) CHRIS (acute kidney injury): PLAN: Baseline Cr is around 1.2 -1.3. Cr was close to baseline on admit Renal US ok supra pubic catheter in place increasing eosinophilia in CBC. no rash. no itching. thrombocytopenia. as per my discussion with hospitalist, hematology has been consulted. doubt its TTP since platelet count is normal on admit off heparin products for now other than a kidney biopsy no other way to rule out AIN for sure. however ID on consult today and imipenem has been taken off patient says only allergy he has is sulfa. took penicillin products without issues in the past since he is going off penEVERYWARE now, can monitor labs 03/03 -methylprednisolone 125mg bid started on 03/02 for presumed AIN -peripheral eosinophil resolved -non olgiuric -scr still uptrending -slightly worsening acidemia, po sodium bicarb started -bmp in am, might need renal support in form of IHD if renal function continues to worsens -thrombocytopenia remains the same 03/04 - Serum creatinine at baseline on admission (02/24 SCr 1.2). Yesterday SCr 4.36--> today SCr 4.48. Urine output yesterday 1.7 L, so far urine output 450 mL today. Per patient and appetite very poor due to painful oral ulcers. Will start maintenance IV fluids. Continue on Methylpred 125 mg IV twice daily. Potassium normal, bicarb 14 (was started on oral bicarb), volume status appears compensated, on room air, no acute indication for renal placement therapy today. Platelet count 50 today. White count 2.5 yesterday, 4.1 today, eosinophils 0.2%, no fevers. Labs ordered for the morning. Discussed nephrology plan with patient and at bedside, questions answered. 03/05/2025. Creatinine about the same. BUN is high, could be related to steroids. Unfortunately had decompensation overnight due to GI bleed. Will temporarily hold steroids. If stress dose steroids are needed from ICU standpoint, can use them. Acidotic, lactate levels are high. To get PRBC, IV fluids for resuscitation as per ICU. Still making urine, Perdomo indwelling with some urine output. Although this is less than yesterday. Potassium is okay. Will follow-up on acid-base status after resuscitation. Borderline for renal replacement therapy. Discussed with ICU attending bedside. IV bicarbonate as needed 03/06/2025. Creatinine is slightly better. High BUN, multifactorial including steroid use, upper GI bleed. Slightly better. Good urine output. Potassium is acceptable. Acidosis has improved with bicarbonate infusions. Overall appears to be recovering renal failure. No acute indications for renal replacement therapy. Discussed with ICU attending. Overall edematous, about 10 L positive with infusions, supportive therapy. Okay for Lasix today. Discussed with family at bedside. 03/07/2025. Patient extubated this morning. Overall renal function stable and slightly improved. Today BUN 108, creatinine 4.11 (so far peak creatinine was 4.48 on 03/04). c-ANCA, p-ANCA<1:20, complements,gb membrane normal range. No acute indication for any renal placement therapy. Okay for Lasix again today. Urine output yesterday 2.6 L. Per cumulative I&O patient is net +11 L. Labs ordered for morning. Discussed nephrology plan with patient's at bedside. Assessment and plan reviewed with Dr. Steinberg. 03/08/2025. Remains extubated. BUN better, creatinine slightly higher at 4.3. Serologies negative. Received intermittent dose of Lasix. Good urine output. Potential transfer to floor today. Discussed with ICU attending. Thrombocytopenia better Acute renal failure. Initially some concern for AIN related to antibiotics since he was on meropenem. Currently he finished all antibiotics. We could not do a biopsy due to thrombocytopenia. Initially he received a short course of prednisone/methylprednisone but we held it due to upper GI bleed.
[2025-03-08] MEDS: DiphenhydrAMINE 50 MG/ML Syringe 12.5 MG IV (23:04)
[2025-03-09 02:00] VITALS: BP 146/76; PULSE 86; RESP 18; TEMP 36.6; O2SAT 95
[2025-03-09] MEDS: Pantoprazole Sodium 80 MG in 0.9% Normal Saline (100mL Bag) 80 ML 10 MG CONT INF ×2 (03:14→20:48)
[2025-03-09 05:20] VITALS: BMI 31.0
[2025-03-09 07:00] VITALS: PULSE 84
[2025-03-09 07:16] LABS: Hematocrit 22.0 % (40-54); Hemoglobin 7.7 g/dL (13.0-16.5); Immature Granulocytes Count 0.100 X10^3/uL (0.0-0.0); Mean Corp Hgb Conc 35.0 g/dL (32-36); Mean Corpuscular Volume 83.7 fL (80-94); Mean Platelet Vol. 13.8 fl (6.2-12.0); NRBC Flagged by Analyzer 0 % (0-5); POSITIVE DIFFERENTIAL YES; Platelet Count 103 K/mm3 (150-450); RBC Distribution Width CV 16.2 % (11.6-14.6); RBC Distribution Width SD 48.6 fl (35.1-43.9); Red Blood Count 2.63 M/mm3 (4.6-6.2); White Blood Count 7.4 K/mm3 (4.4-11.0)
[2025-03-09 08:35] VITALS: BP 165/85; PULSE 104; RESP 18; TEMP 36.4; O2SAT 98
[2025-03-09 10:41] LABS: Anion Gap 14 (5-15); BUN 95 mg/dL (4-19); BUN/Creat Ratio 22.3 RATIO (10-20); Calcium,Total 6.7 mg/dL (7.6-11.0); Carbon Dioxide 22.2 mmol/L (21.0-32.0); Chloride 103 mmol/L (98-108); Estimated Creatinine Clearance 17.15 ml/min (50-250); Glucose 138 mg/dL (70-99); Potassium 3.4 mmol/L (3.3-5.1)
[2025-03-09 11:00] VITALS: PULSE 86
--- NOTE | 2025-03-09 11:10 | PN_ITS ---
Subjective Subjective Patient seen and examined with his nurse by his bedside. He had no active complaints. Review of systems is otherwise negative. Speech therapy evaluated him and he was started on a diet. He has remained hemodynamically stable though he was mildly tachycardic today. Objective Data Objective Data Vital Signs: Vital Signs Temp Pulse Resp BP Pulse Ox O2 Del Method O2 Flow Rate 97.6 F L 104 H 18 165/85 H 98 Room Air 2 03/09/25 08:35 03/09/25 08:35 03/09/25 08:35 03/09/25 08:35 03/09/25 08:35 03/09/25 08:35 03/05/25 10:08 FiO2 21 03/07/25 08:00 Oxygen Flow Rate (L/min) 2 Oxygen Delivery Method Room Air Weight: 216 lb 7.903 oz Body Mass Index (BMI) 31.0 Intake & Output: Intake and Output for Last 24 Hours 03/07/25 03/08/25 03/09/25 23:59 23:59 23:59 Intake Total 2441.84 / 2941.84 994.67 / 994.67 348.17 / 348.17 Output Total 3503 / 3853 1200 / 1200 350 / 350 Balance -1061.16 / -911.16 -205.33 / -205.33 -1.83 / -1.83 Lab / Micro Data 03/09/25 06:20 03/09/25 06:20 Labs: Laboratory Results - last 24 hr 03/05/25 07:45: Crossmatch See Detail 03/09/25 06:20: WBC 7.4, RBC 2.63 L, Hgb 7.7 L, Hct 22.0 L, MCV 83.7, MCH 29.3, MCHC 35.0, RDW Std Deviation 48.6 H, RDW Coeff of Jerry 16.2 H, Plt Count 103 L, M PV 13.8 H, Immature Gran % (Auto) 1.400 H, Neut % (Auto) 80.3 H, Lymph % (Auto) 7.0 L, [place] % (Auto) 9.7, Eos % (Auto) 1.5, Baso % (Auto) 0.1, Absolute Neuts (auto) 5.9, Absolute Lymphs (auto) 0.52 L, Nucleated RBC % 0, Sodium 139, Potassium 3.4, Chloride 103, Carbon Dioxide 22.2, Anion Gap 14, BUN 95 H, C reatinine 4.24 H, Estim Creat Clear Calc 17.15 L, Est GFR (MDRD) Non-Af 14 L, B UN/Creatinine Ratio 22.3 H, Glucose 138 H, Calcium 6.7 L Micro: Microbiology 03/05/25 11:45 Sputum, Induced/Lukens Gram Stain - Final 03/05/25 11:45 Sputum, Induced/Lukens Respiratory Culture - Final Corynebacterium striatum 03/05/25 04:10 Stool Stool Occult Blood (LISANDRA) - Final Occult Blood Positive 02/24/25 22:00 Blood Culture (Wb) - Anticubital Right Blood Culture - Final No growth in 5 days. 02/24/25 22:27 Blood Culture (Wb) - Left Forearm Blood Culture - Final No growth in 5 days. 02/25/25 00:36 Mucosa - Nasopharyngeal Respiratory Panel (PCR) - Final Physical Exam Const alert, oriented x3 and no apparent distress Constitutional Narrative: remains very weak and frail. Orientation / Consciousness: lethargic HEENT normocephalic, head/scalp atraumatic, moist oral mucous membranes and oropharynx normal Eyes EOMs intact bilaterally Neck supple and no JVD Lymph Lymphatic: no lymphedema noted Resp Resp Narrative: moderately diminished breath sounds bibasally, no wheezes or crackles. Remains on room air. Cardio regular rate, regular rhythm, S1 normal heart sound, S2 normal heart sound and no murmurs GI normal to inspection, nondistended, normoactive bowel sounds, soft to palpation, non-tender and non-distended Extremity normal to inspection and full ROM Extremity Narrative: 2+ edema in lower extremities. No edema in upper extremities. General Extremity: edema and no tenderness to palpation of joints or extremities Skin Skin Narrative: has some ecchymosis of upper extremities General Skin Exam: no breakdown Neuro no focal motor deficits, no sensory deficits noted and deep tendon reflexes 2+ bilaterally Neuro Narrative: remains very frail and weak. Sensorium / Orientation: awake, alert, oriented to person and oriented to place Motor Exam: general weakness Psych Psych Narrative: very frail and weak. Able to answer questions. Mood & Affect: flat affect Assessment & Plan Assessment/Plan (1) Thrombocytopenia: (2) CHRIS (acute kidney injury): (3) Anemia: (4) Hemorrhagic shock: (5) Acute hypotension: (6) Catheter-associated urinary tract infection: PLAN: Plan #A cute encephalopathy in the setting of acute GI bleed * due to bleeding peptic ulcer * Rapid response was called. Patient emergently transferred to the ICU where he was emergently intubated. Blood pressure was also running low. His hemoglobin had dropped to 5.7 this morning. * Gastroenterology consulted and he had emergent EGD which showed a spurting bleeding peptic ulcer which was cauterized and clips placed. Patient had to be emergently intubated when he got to the ICU. * hematology also consulted due to worsening pancytopenia * transfused with 2 units of PRBCs. * critical care con board * now extubated, and Hb today is 9.1. * Continue IV pantoprazole * #Acute hypoxic respiratory failure * Was emergently intubated and sedated as above. * Critical care on board. management as per critical care. * Now extubated and remains on room air * #Acute on chronic anemia due to GI bleed * Has been transfused with multiple units of packed red blood cells. Hemoglobin today is 7.7, down from 9.1. * Platelets also up to 103. On IV pantoprazole. * Had EGD as above which showed a bleeding peptic ulcer. * GI and critical care on board. Transfuse to keep Hb >7 * Iron profile showed iron level of 125 with iron saturation of 80.1 and ferritin of 1314. * #Hemorrhagic shock * Resolved. Now off vasopressors and also extubated. * * # Acute complicated UTI * Thought to be due to indwelling Worthy catheter. He does have a history of prostate cancer status post prostatectomy. * apparently declined to change catheter as it was recently changed and follow-up on outpatient basis. * Urine cultures grew procidentia with possible carbapenems producing Enterobacteriaceae and actinobacter as well as Enterococcus and corynebacterium stratum * COmpleted a course of ciprofloxacin and Zosyn. * #CHRIS with anion gap metabolic acidosis * Creatinine is slightly down to 4.24 today and anion gap is 14 with bicarb of 22.2. * Patient was initially on meropenem on outpatient basis and is thought that his CHRIS is due to acute interstitial nephritis from the meropenem. * Nephrology on board. Cannot have kidney biopsy on account of thrombocytopenia. Kidney ultrasound was negative. * Started on IV Solu-Medrol on 03/02/2025. Patient is making urine. Per nephrology no indication to start dialysis now and to continue steroids for now. * #Pancytopenia * Hemoglobin today is down to 7.7. platelets are up to 103 * Hematology consulted and felt that thrombocytopenia was likely multifactorial in light of the acute illness and the CHRIS with resultant uremia. * hematology on board #Hypocalcemia: Calcium is 6.7. Will replace and trend. #Bilateral lower extremity edema: Improving. #History of TIA:aspirin held due to GI bleed #Hypertension: Blood pressure was low on admission so BP meds held. Improving now. Will monitor and resume BP meds DVT prophylaxis: SCDs. Charges/Coding Visit Charges Inpatient E&M: 63640 Subs Hosp L2
[2025-03-09] MEDS: Calcium Gluconate IV 2 GM in 0.9% Normal Saline (100mL Bag) 100 ML IV (14:20)
[2025-03-09 14:26] VITALS: BP 147/74; PULSE 85; RESP 16; TEMP 36.9; O2SAT 97
--- NOTE | 2025-03-09 16:44 | PCM.PN.REN ---
Subjective Subjective no new events looks better overall Objective Data Objective Data Vital Signs: Vital Signs Temp Pulse Resp BP Pulse Ox O2 Del Method O2 Flow Rate 98.4 F 85 16 147/74 H 97 Room Air 2 03/09/25 14:26 03/09/25 14:26 03/09/25 14:26 03/09/25 14:26 03/09/25 14:26 03/09/25 14:26 03/05/25 10:08 FiO2 21 03/07/25 08:00 Oxygen Flow Rate (L/min) 2 Oxygen Delivery Method Room Air Weight: 98.2 kg Body Mass Index (BMI) 31.0 Intake & Output: Intake and Output for Last 24 Hours 03/07/25 03/08/25 03/09/25 23:59 23:59 23:59 Intake Total 2441.84 / 2941.84 994.67 / 994.67 348.17 / 348.17 Output Total 3503 / 3853 1200 / 1200 350 / 350 Balance -1061.16 / -911.16 -205.33 / -205.33 -1.83 / -1.83 Lab / Micro Data 03/09/25 06:20 03/09/25 06:20 Labs: Laboratory Results - last 24 hr 03/05/25 07:45: Crossmatch See Detail 03/09/25 06:20: WBC 7.4, RBC 2.63 L, Hgb 7.7 L, Hct 22.0 L, MCV 83.7, MCH 29.3, MCHC 35.0, RDW Std Deviation 48.6 H, RDW Coeff of Jerry 16.2 H, Plt Count 103 L, MPV 13.8 H, Immature Gran % (Auto) 1.400 H, Neut % (Auto) 80.3 H, Lymph % (Auto) 7.0 L, [place] % (Auto) 9.7, Eos % (Auto) 1.5, Baso % (Auto) 0.1, Absolute Neuts (auto) 5.9, Absolute Lymphs (auto) 0.52 L, Nucleated RBC % 0, Sodium 139, Potassium 3.4, Chloride 103, Carbon Dioxide 22.2, Anion Gap 14, BUN 95 H, Creatinine 4.24 H, Estim Creat Clear Calc 17.15 L, Est GFR (MDRD) Non-Af 14 L, BUN/Creatinine Ratio 22.3 H, Glucose 138 H, Calcium 6.7 L Micro: Microbiology 03/05/25 11:45 Sputum, Induced/Lukens Gram Stain - Final 03/05/25 11:45 Sputum, Induced/Lukens Respiratory Culture - Final Corynebacterium striatum 03/05/25 04:10 Stool Stool Occult Blood (LISANDRA) - Final Occult Blood Positive 02/24/25 22:00 Blood Culture (Wb) - Anticubital Right Blood Culture - Final No growth in 5 days. 02/24/25 22:27 Blood Culture (Wb) - Left Forearm Blood Culture - Final No growth in 5 days. 02/25/25 00:36 Mucosa - Nasopharyngeal Respiratory Panel (PCR) - Final Physical Exam Narrative Alert and oriented, no apparent distress oral mucosa crusted s1s2 no murmurs b/s equal, no wheezes, rhonchi or rales noted abdomen soft ++ edema bilateral legs perdomo, light urine in tubing and bag Assessment & Plan Assessment/Plan (1) Chronic renal insufficiency: (2) CHRIS (acute kidney injury): PLAN: Baseline Cr is around 1.2 -1.3. Cr was close to baseline on admit Renal US ok supra pubic catheter in place increasing eosinophilia in CBC. no rash. no itching. thrombocytopenia. as per my discussion with hospitalist, hematology has been consulted. doubt its TTP since platelet count is normal on admit off heparin products for now other than a kidney biopsy no other way to rule out AIN for sure. however ID on consult today and imipenem has been taken off patient says only allergy he has is sulfa. took penicillin products without issues in the past since he is going off [employer] now, can monitor labs 03/03 -methylprednisolone 125mg bid started on 03/02 for presumed AIN -peripheral eosinophil resolved -non olgiuric -scr still uptrending -slightly worsening acidemia, po sodium bicarb started -bmp in am, might need renal support in form of IHD if renal function continues to worsens -thrombocytopenia remains the same 03/04 - Serum creatinine at baseline on admission (02/24 SCr 1.2). Yesterday SCr 4.36--> today SCr 4.48. Urine output yesterday 1.7 L, so far urine output 450 mL today. Per patient and appetite very poor due to painful oral ulcers. Will start maintenance IV fluids. Continue on Methylpred 125 mg IV twice daily. Potassium normal, bicarb 14 (was started on oral bicarb), volume status appears compensated, on room air, no acute indication for renal placement therapy today. Platelet count 50 today. White count 2.5 yesterday, 4.1 today, eosinophils 0.2%, no fevers. Labs ordered for the morning. Discussed nephrology plan with patient and at bedside, questions answered. 03/05/2025. Creatinine about the same. BUN is high, could be related to steroids. Unfortunately had decompensation overnight due to GI bleed. Will temporarily hold steroids. If stress dose steroids are needed from ICU standpoint, can use them. Acidotic, lactate levels are high. To get PRBC, IV fluids for resuscitation as per ICU. Still making urine, Perdomo indwelling with some urine output. Although this is less than yesterday. Potassium is okay. Will follow-up on acid-base status after resuscitation. Borderline for renal replacement therapy. Discussed with ICU attending bedside. IV bicarbonate as needed 03/06/2025. Creatinine is slightly better. High BUN, multifactorial including steroid use, upper GI bleed. Slightly better. Good urine output. Potassium is acceptable. Acidosis has improved with bicarbonate infusions. Overall appears to be recovering renal failure. No acute indications for renal replacement therapy. Discussed with ICU attending. Overall edematous, about 10 L positive with infusions, supportive therapy. Okay for Lasix today. Discussed with family at bedside. 03/07/2025. Patient extubated this morning. Overall renal function stable and slightly improved. Today BUN 108, creatinine 4.11 (so far peak creatinine was 4.48 on 03/04). c-ANCA, p-ANCA<1:20, complements,gb membrane normal range. No acute indication for any renal placement therapy. Okay for Lasix again today. Urine output yesterday 2.6 L. Per cumulative I&O patient is net +11 L. Labs ordered for morning. Discussed nephrology plan with patient's at bedside. Assessment and plan reviewed with Dr. Steinberg. 03/08/2025. Remains extubated. BUN better, creatinine slightly higher at 4.3. Serologies negative. Received intermittent dose of Lasix. Good urine output. Potential transfer to floor today. Discussed with ICU attending. Thrombocytopenia better Acute renal failure. Initially some concern for AIN related to antibiotics since he was on meropenem. Currently he finished all antibiotics. We could not do a biopsy due to thrombocytopenia. Initially he received a short course of prednisone/methylprednisone but we held it due to upper GI bleed. 03/09/25. Cr better. urine output ok. platelets better. oral ulcers healing.
[2025-03-09] MEDS: 0.9% Saline Lock 10 ML Syringe IV (17:00)
[2025-03-09 20:53] VITALS: BP 158/80; PULSE 81; RESP 16; TEMP 37.1; O2SAT 98
[2025-03-10] VITALS (8 sets, daily range): BP systolic 121–150; BP diastolic 52–78; PULSE 70–84; RESP 13–18; TEMP 36.4–37.1; O2SAT 93–100; BMI 31.3
[2025-03-10] MEDS: Pantoprazole Sodium 80 MG in 0.9% Normal Saline (100mL Bag) 80 ML 10 MG CONT INF ×2 (05:59→16:17)
[2025-03-10 07:20] LABS: Hematocrit 21.9 % (40-54); Hemoglobin 7.2 g/dL (13.0-16.5); Immature Granulocytes Count 0.070 X10^3/uL (0.0-0.0); Mean Corp Hgb Conc 32.9 g/dL (32-36); Mean Corpuscular Volume 86.9 fL (80-94); Mean Platelet Vol. 13.7 fl (6.2-12.0); NRBC Flagged by Analyzer 0 % (0-5); POSITIVE DIFFERENTIAL YES; Platelet Count 120 K/mm3 (150-450); RBC Distribution Width CV 16.2 % (11.6-14.6); RBC Distribution Width SD 49.3 fl (35.1-43.9); Red Blood Count 2.52 M/mm3 (4.6-6.2); White Blood Count 5.5 K/mm3 (4.4-11.0)
[2025-03-10] MEDS: 0.9% Saline Lock 10 ML Syringe IV (08:27)
[2025-03-10 08:36] LABS: Anion Gap 13 (5-15); BUN 82 mg/dL (4-19); BUN/Creat Ratio 21.1 RATIO (10-20); Calcium,Total 6.9 mg/dL (7.6-11.0); Carbon Dioxide 22.0 mmol/L (21.0-32.0); Chloride 103 mmol/L (98-108); Estimated Creatinine Clearance 18.91 ml/min (50-250); Glucose 118 mg/dL (70-99); Potassium 3.5 mmol/L (3.3-5.1)
--- NOTE | 2025-03-10 11:12 | PN_ITS ---
Subjective Subjective Patient seen and examined With his nurse by his bedside. He had no active complaints mostly comfortably in his bed. He did complain of some weakness. He looks much stronger today is able to communicate well. He has remained hemodynamically stable and is on room air. Hb is down to 7.2. Cr has trended down to 3.8. Review of systems is otherwise negative. Objective Data Objective Data Vital Signs: Vital Signs Temp Pulse Resp BP Pulse Ox O2 Del Method O2 Flow Rate 97.9 F 72 16 142/72 H 96 Room Air 2 03/10/25 08:15 03/10/25 08:15 03/10/25 08:15 03/10/25 08:15 03/10/25 08:15 03/10/25 08:45 03/05/25 10:08 FiO2 21 03/07/25 08:00 Oxygen Flow Rate (L/min) 2 Oxygen Delivery Method Room Air Weight: 218 lb 4.122 oz Body Mass Index (BMI) 31.3 Intake & Output: Intake and Output for Last 24 Hours 03/08/25 03/09/25 03/10/25 23:59 23:59 23:59 Intake Total 994.67 / 994.67 1288.17 / 1288.17 91.83 / 91.83 Output Total 1200 / 1200 1650 / 1650 400 / 400 Balance -205.33 / -205.33 -361.83 / -361.83 -308.17 / -308.17 Lab / Micro Data 03/10/25 05:55 03/10/25 05:55 Labs: Laboratory Results - last 24 hr 03/10/25 05:55: WBC 5.5, RBC 2.52 L, Hgb 7.2 L, Hct 21.9 L, MCV 86.9, MCH 28.6, MCHC 32.9 D, RDW Std Deviation 49.3 H, RDW Coeff of Jerry 16.2 H, Plt Count 120 L , MPV 13.7 H, Immature Gran % (Auto) 1.300 H, Neut % (Auto) 74.6 H, Lymph % (Auto) 7.8 L, [place] % (Auto) 13.2 H, Eos % (Auto) 2.9, Baso % (Auto) 0.2, Absolute Neuts (auto) 4.1, Absolute Lymphs (auto) 0.43 L, Nucleated RBC % 0, Sodium 138, Potassium 3.5, Chloride 103, Carbon Dioxide 22.0, Anion Gap 13, BUN 82 H, Creatinine 3.86 H, Estim Creat Clear Calc 18.91 L, Est GFR (MDRD) Non-Af 15 L, BUN/Creatinine Ratio 21.1 H, Glucose 118 H, Calcium 6.9 L Micro: Microbiology 03/05/25 11:45 Sputum, Induced/Lukens Gram Stain - Final 03/05/25 11:45 Sputum, Induced/Lukens Respiratory Culture - Final Corynebacterium striatum 03/05/25 04:10 Stool Stool Occult Blood (LISANDRA) - Final Occult Blood Positive 02/24/25 22:00 Blood Culture (Wb) - Anticubital Right Blood Culture - Final No growth in 5 days. 02/24/25 22:27 Blood Culture (Wb) - Left Forearm Blood Culture - Final No growth in 5 days. 02/25/25 00:36 Mucosa - Nasopharyngeal Respiratory Panel (PCR) - Final Physical Exam Const alert, oriented x3 and no apparent distress Constitutional Narrative: remains very weak and frail. General Appearance: cooperative HEENT normocephalic, head/scalp atraumatic, moist oral mucous membranes and oropharynx normal Eyes EOMs intact bilaterally Eyes Narrative: No icterus Neck supple and no JVD Lymph Lymphatic: no lymphedema noted Resp Resp Narrative: moderately diminished breath sounds bibasally, no wheezes or crackles. Remains on room air. Cardio regular rate, regular rhythm, S1 normal heart sound, S2 normal heart sound and no murmurs GI normal to inspection, nondistended, normoactive bowel sounds, soft to palpation, non-tender and non-distended Extremity normal to inspection, full ROM and normal capillary refill Extremity Narrative: 2+ edema in lower extremities. No edema in upper extremities. General Extremity: edema and no tenderness to palpation of joints or extremities Skin Skin Narrative: has some ecchymosis of upper extremities General Skin Exam: no breakdown Neuro no focal motor deficits, no sensory deficits noted and deep tendon reflexes 2+ bilaterally Neuro Narrative: remains very frail and weak. Sensorium / Orientation: awake, alert, oriented to person and oriented to place Motor Exam: general weakness Psych Psych Narrative: Patient still weak but looking much better day by day. Appearance: appropriate Mood & Affect: flat affect Assessment & Plan Assessment/Plan (1) Thrombocytopenia: (2) CHRIS (acute kidney injury): (3) Anemia: (4) Hemorrhagic shock: (5) Acute hypotension: (6) Catheter-associated urinary tract infection: PLAN: Plan #A cute encephalopathy in the setting of acute GI bleed * due to bleeding peptic ulcer * Rapid response was called. Patient emergently transferred to the ICU where he was emergently intubated. Blood pressure was also running low. His hemoglobin had dropped to 5.7 this morning. * Gastroenterology consulted and he had emergent EGD which showed a spurting bleeding peptic ulcer which was cauterized and clips placed. Patient had to be emergently intubated when he got to the ICU. * hematology also consulted due to worsening pancytopenia * transfused with 2 units of PRBCs. * critical care con board * now extubated, and Hb today is 9.1. * Continue IV pantoprazole * #Acute hypoxic respiratory failure * Was emergently intubated and sedated as above. * Critical care on board. management as per critical care. * Now extubated and remains on room air * Sputum culture grew Corynebacterium striated. He has completed a course of antibiotics. * #Acute on chronic anemia due to GI bleed * Has been transfused with multiple units of packed red blood cells. Hemoglobin today is further down to 7.2 from 7.7 yesterday. Repeat stat H&H if hemoglobin is less than 7 or close to 7 will transfuse unit of packed red blood cells. * Platelets also up to 120. On IV pantoprazole. * Had EGD as above which showed a bleeding peptic ulcer. * GI and critical care on board. Transfuse to keep Hb >7 * Iron profile showed iron level of 125 with iron saturation of 80.1 and ferritin of 1314. * #Hemorrhagic shock * Resolved. Now off vasopressors and also extubated. * * # Acute complicated UTI * Thought to be due to indwelling Worthy catheter. He does have a history of prostate cancer status post prostatectomy. * apparently declined to change catheter as it was recently changed and follow-up on outpatient basis. * Urine cultures grew providentia with possible carbapenems producing Enterobacteriaceae and actinobacter as well as Enterococcus and corynebacterium stratum * COmpleted a course of ciprofloxacin and Zosyn. * #CHRIS with anion gap metabolic acidosis * Creatinine continues to trend downwards and is down to 3.86 today. BUN is also down to 82. Anion gap is 13. * Patient was initially on meropenem on outpatient basis and is thought that his CHRIS is due to acute interstitial nephritis from the meropenem. * Nephrology on board. Cannot have kidney biopsy on account of thrombocytopenia. Kidney ultrasound was negative. * Started on IV Solu-Medrol on 03/02/2025. Patient is making urine. Per nephrology no indication to start dialysis now and to continue steroids for now. * completed a course of steroids. * #Pancytopenia * Hemoglobin today is down to 7.2 today, from 7.7 yesterday. platelets are up to 120 * Hematology consulted and felt that thrombocytopenia was likely multifactorial in light of the acute illness and the CHRIS with resultant uremia. * hematology on board #Hypocalcemia: Calcium is 6.9. Will replace and trend. #Bilateral lower extremity edema: Improving. #History of TIA:aspirin held due to GI bleed #Hypertension: Blood pressure was low on admission so BP meds held. Improving now. Will monitor and resume BP meds DVT prophylaxis: SCDs. Charges/Coding Visit Charges Inpatient E&M: 71626 Subs Hosp L2
[2025-03-10 12:02] LABS: Hematocrit 21.4 % (40-54); Hemoglobin 7.2 g/dL (13.0-16.5)
[2025-03-10] MEDS: Calcium Gluconate IV 2 GM in 0.9% Normal Saline (100mL Bag) 100 ML IV (12:25)
--- NOTE | 2025-03-10 14:48 | PN.RENAL_ITS ---
Subjective Subjective looks better Objective Data Objective Data Vital Signs: Vital Signs Temp Pulse Resp BP Pulse Ox O2 Del Method O2 Flow Rate 97.9 F 72 16 142/72 H 96 Room Air 2 03/10/25 08:15 03/10/25 08:15 03/10/25 08:15 03/10/25 08:15 03/10/25 08:15 03/10/25 08:45 03/05/25 10:08 FiO2 21 03/07/25 08:00 Oxygen Flow Rate (L/min) 2 Oxygen Delivery Method Room Air Weight: 99 kg Body Mass Index (BMI) 31.3 Intake & Output: Intake and Output for Last 24 Hours 03/08/25 03/09/25 03/10/25 23:59 23:59 23:59 Intake Total 994.67 / 994.67 1288.17 / 1288.17 211.83 / 211.83 Output Total 1200 / 1200 1650 / 1650 400 / 400 Balance -205.33 / -205.33 -361.83 / -361.83 -188.17 / -188.17 Lab / Micro Data 03/10/25 11:50 03/10/25 05:55 Labs: Laboratory Results - last 24 hr 03/10/25 05:55: WBC 5.5, RBC 2.52 L, Hgb 7.2 L, Hct 21.9 L, MCV 86.9, MCH 28.6, MCHC 32.9 D, RDW Std Deviation 49.3 H, RDW Coeff of Jerry 16.2 H, Plt Count 120 L , MPV 13.7 H, Immature Gran % (Auto) 1.300 H, Neut % (Auto) 74.6 H, Lymph % (Auto) 7.8 L, [place] % (Auto) 13.2 H, Eos % (Auto) 2.9, Baso % (Auto) 0.2, Absolute Neuts (auto) 4.1, Absolute Lymphs (auto) 0.43 L, Nucleated RBC % 0, Sodium 138, Potassium 3.5, Chloride 103, Carbon Dioxide 22.0, Anion Gap 13, BUN 82 H, Creatinine 3.86 H, Estim Creat Clear Calc 18.91 L, Est GFR (MDRD) Non-Af 15 L, BUN/Creatinine Ratio 21.1 H, Glucose 118 H, Calcium 6.9 L 03/10/25 11:50: Hgb 7.2 L, Hct 21.4 L, Blood Type O POSITIVE, Antibody Screen NEGATIVE, Crossmatch See Detail Micro: Microbiology 03/05/25 11:45 Sputum, Induced/Lukens Gram Stain - Final 03/05/25 11:45 Sputum, Induced/Lukens Respiratory Culture - Final Corynebacterium striatum 03/05/25 04:10 Stool Stool Occult Blood (LISANDRA) - Final Occult Blood Positive 02/24/25 22:00 Blood Culture (Wb) - Anticubital Right Blood Culture - Final No growth in 5 days. 02/24/25 22:27 Blood Culture (Wb) - Left Forearm Blood Culture - Final No growth in 5 days. 02/25/25 00:36 Mucosa - Nasopharyngeal Respiratory Panel (PCR) - Final Physical Exam Narrative Alert and oriented, no apparent distress oral mucosa crusted s1s2 no murmurs b/s equal, no wheezes, rhonchi or rales noted abdomen soft ++ edema bilateral legs perdomo, light urine in tubing and bag Assessment & Plan Assessment/Plan (1) Chronic renal insufficiency: (2) CHRIS (acute kidney injury): PLAN: Baseline Cr is around 1.2 -1.3. Cr was close to baseline on admit Renal US ok supra pubic catheter in place increasing eosinophilia in CBC. no rash. no itching. thrombocytopenia. as per my discussion with hospitalist, hematology has been consulted. doubt its TTP since platelet count is normal on admit off heparin products for now other than a kidney biopsy no other way to rule out AIN for sure. however ID on consult today and imipenem has been taken off patient says only allergy he has is sulfa. took penicillin products without issues in the past since he is going off penems now, can monitor labs 03/03 -methylprednisolone 125mg bid started on 03/02 for presumed AIN -peripheral eosinophil resolved -non olgiuric -scr still uptrending -slightly worsening acidemia, po sodium bicarb started -bmp in am, might need renal support in form of IHD if renal function continues to worsens -thrombocytopenia remains the same 03/04 - Serum creatinine at baseline on admission (02/24 SCr 1.2). Yesterday SCr 4.36--> today SCr 4.48. Urine output yesterday 1.7 L, so far urine output 450 mL today. Per patient and appetite very poor due to painful oral ulcers. Will start maintenance IV fluids. Continue on Methylpred 125 mg IV twice daily. Potassium normal, bicarb 14 (was started on oral bicarb), volume status appears compensated, on room air, no acute indication for renal placement therapy today. Platelet count 50 today. White count 2.5 yesterday, 4.1 today, eosinophils 0.2%, no fevers. Labs ordered for the morning. Discussed nephrology plan with patient and at bedside, questions answered. 03/05/2025. Creatinine about the same. BUN is high, could be related to steroids. Unfortunately had decompensation overnight due to GI bleed. Will temporarily hold steroids. If stress dose steroids are needed from ICU standpoint, can use them. Acidotic, lactate levels are high. To get PRBC, IV fluids for resuscitation as per ICU. Still making urine, Perdomo indwelling with some urine output. Although this is less than yesterday. Potassium is okay. Will follow-up on acid-base status after resuscitation. Borderline for renal replacement therapy. Discussed with ICU attending bedside. IV bicarbonate as needed 03/06/2025. Creatinine is slightly better. High BUN, multifactorial including steroid use, upper GI bleed. Slightly better. Good urine output. Potassium is acceptable. Acidosis has improved with bicarbonate infusions. Overall appears to be recovering renal failure. No acute indications for renal replacement therapy. Discussed with ICU attending. Overall edematous, about 10 L positive with infusions, supportive therapy. Okay for Lasix today. Discussed with family at bedside. 03/07/2025. Patient extubated this morning. Overall renal function stable and slightly improved. Today BUN 108, creatinine 4.11 (so far peak creatinine was 4.48 on 03/04). c-ANCA, p-ANCA<1:20, complements,gb membrane normal range. No acute indication for any renal placement therapy. Okay for Lasix again today. Urine output yesterday 2.6 L. Per cumulative I&O patient is net +11 L. Labs ordered for morning. Discussed nephrology plan with patient's at bedside. Assessment and plan reviewed with Dr. Steinberg. 03/08/2025. Remains extubated. BUN better, creatinine slightly higher at 4.3. Serologies negative. Received intermittent dose of Lasix. Good urine output. Potential transfer to floor today. Discussed with ICU attending. Thrombocytopenia better Acute renal failure. Initially some concern for AIN related to antibiotics since he was on meropenem. Currently he finished all antibiotics. We could not do a biopsy due to thrombocytopenia. Initially he received a short course of prednisone/methylprednisone but we held it due to upper GI bleed. 03/09/25. Cr better. urine output ok. platelets better. oral ulcers healing. 03/10/2025. Overall improving, clinically looks better. Urine output is decent. Creatinine better. Electrolytes reviewed. Low calcium, corrected for albumin not too bad.
[2025-03-10 20:15] LABS: Hematocrit 24.0 % (40-54); Hemoglobin 7.9 g/dL (13.0-16.5)
[2025-03-10] MEDS: MELATONIN 3 MG TABLET PO (21:01)
[2025-03-11] MEDS: Pantoprazole Sodium 80 MG in 0.9% Normal Saline (100mL Bag) 80 ML 10 MG CONT INF ×2 (02:13→12:00)
[2025-03-11 02:55] VITALS: BMI 31.8
[2025-03-11 03:00] VITALS: BP 132/70; PULSE 69; RESP 16; TEMP 36.4; O2SAT 96
[2025-03-11 04:58] LABS: Hematocrit 23.7 % (40-54); Hemoglobin 7.9 g/dL (13.0-16.5); Immature Granulocytes Count 0.050 X10^3/uL (0.0-0.0); Mean Corp Hgb Conc 33.3 g/dL (32-36); Mean Corpuscular Volume 85.9 fL (80-94); Mean Platelet Vol. 12.3 fl (6.2-12.0); NRBC Flagged by Analyzer 0 % (0-5); POSITIVE DIFFERENTIAL YES; Platelet Count 125 K/mm3 (150-450); RBC Distribution Width CV 16.4 % (11.6-14.6); RBC Distribution Width SD 50.5 fl (35.1-43.9); Red Blood Count 2.76 M/mm3 (4.6-6.2); White Blood Count 4.8 K/mm3 (4.4-11.0)
[2025-03-11 05:30] LABS: Anion Gap 11 (5-15); BUN 69 mg/dL (4-19); BUN/Creat Ratio 19.2 RATIO (10-20); Calcium,Total 6.9 mg/dL (7.6-11.0); Carbon Dioxide 21.0 mmol/L (21.0-32.0); Chloride 104 mmol/L (98-108); Estimated Creatinine Clearance 20.44 ml/min (50-250); Glucose 144 mg/dL (70-99); Magnesium 1.8 mg/dL (1.5-2.2); Potassium 3.8 mmol/L (3.3-5.1)
--- NOTE | 2025-03-11 09:30 | CASEMGMT ---
Addendum entered by Quin Mcgovern 03/11/25 14:10: LA GIRON received update from Chana in TCU that patient has been accepted to TCU and can discharge when medically ready. LA GIRON updated hospitalist. LA GIRON in to patient's room and updated patient and regarding TCU acceptance. Patient and had no further questions or concerns. Original Note: LA GIRON updated by DC [employer] Sales Supervisor that patient would like referral sent to TCU for skilled LOC. LA GIRON made referral to TCU, awaiting acceptance.
[2025-03-11 09:45] VITALS: BP 133/70; PULSE 82; RESP 18; TEMP 36.5; O2SAT 96
--- NOTE | 2025-03-11 10:53 | CASEMGMT ---
Discharge Planning Call rec'd from pts with snf choices. 1) TCU 2) [facility]. RN CM updated. Elisa Martin DC Planning Asst.
[2025-03-11 11:37] VITALS: O2SAT 98
--- NOTE | 2025-03-11 12:38 | PN.RENAL_ITS ---
Subjective Subjective Sitting up in bed. No overnight events. States feeling better overall. States appetite slowly improving. Objective Data Objective Data Vital Signs: Vital Signs Temp Pulse Resp BP Pulse Ox O2 Del Method O2 Flow Rate 97.7 F L 82 18 133/70 H 98 Room Air 2 03/11/25 09:45 03/11/25 09:45 03/11/25 09:45 03/11/25 09:45 03/11/25 11:37 03/11/25 09:45 03/05/25 10:08 FiO2 21 03/07/25 08:00 Oxygen Flow Rate (L/min) 2 Oxygen Delivery Method Room Air Weight: 100.7 kg Body Mass Index (BMI) 31.8 Intake & Output: Intake and Output for Last 24 Hours 03/09/25 03/10/25 03/11/25 23:59 23:59 23:59 Intake Total 1288.17 / 1288.17 831.83 / 831.83 987.16 / 987.16 Output Total 1650 / 1650 1350 / 1350 200 / 200 Balance -361.83 / -361.83 -518.17 / -518.17 787.16 / 787.16 Lab / Micro Data 03/11/25 04:47 03/11/25 04:47 Labs: Laboratory Results - last 24 hr 03/10/25 11:50: Blood Type O POSITIVE, Antibody Screen NEGATIVE, Crossmatch See Detail 03/10/25 20:06: Hgb 7.9 L, Hct 24.0 L 03/11/25 04:47: WBC 4.8, RBC 2.76 L, Hgb 7.9 L, Hct 23.7 L, MCV 85.9, MCH 28.6, MCHC 33.3, RDW Std Deviation 50.5 H, RDW Coeff of Jerry 16.4 H, Plt Count 125 L, M PV 12.3 H, Immature Gran % (Auto) 1.100 H, Neut % (Auto) 68.8, Lymph % (Auto) 9.9 L, [place] % (Auto) 15.4 H, Eos % (Auto) 4.6, Baso % (Auto) 0.2, Absolute Neuts (auto) 3.3, Absolute Lymphs (auto) 0.47 L, Nucleated RBC % 0, Sodium 136, Potassium 3.8, Chloride 104, Carbon Dioxide 21.0, Anion Gap 11, BUN 69 H, C reatinine 3.60 H, Estim Creat Clear Calc 20.44 L, Est GFR (MDRD) Non-Af 17 L, BUN/Creatinine Ratio 19.2, Glucose 144 H, Calcium 6.9 L, Magnesium 1.8 Micro: Microbiology 03/05/25 11:45 Sputum, Induced/Lukens Gram Stain - Final 03/05/25 11:45 Sputum, Induced/Lukens Respiratory Culture - Final Corynebacterium striatum 03/05/25 04:10 Stool Stool Occult Blood (LISANDRA) - Final Occult Blood Positive 02/24/25 22:00 Blood Culture (Wb) - Anticubital Right Blood Culture - Final No growth in 5 days. 02/24/25 22:27 Blood Culture (Wb) - Left Forearm Blood Culture - Final No growth in 5 days. 02/25/25 00:36 Mucosa - Nasopharyngeal Respiratory Panel (PCR) - Final Physical Exam Narrative Alert and oriented, no apparent distress oral mucosa crusted, improving s1s2 no murmurs b/s equal, no wheezes, rhonchi or rales noted abdomen soft ++ edema bilateral legs perdomo, light urine in tubing and bag Assessment & Plan Assessment/Plan (1) Chronic renal insufficiency: (2) CHRIS (acute kidney injury): PLAN: Baseline Cr is around 1.2 -1.3. Cr was close to baseline on admit Renal US ok supra pubic catheter in place increasing eosinophilia in CBC. no rash. no itching. thrombocytopenia. as per my discussion with hospitalist, hematology has been consulted. doubt its TTP since platelet count is normal on admit off heparin products for now other than a kidney biopsy no other way to rule out AIN for sure. however ID on consult today and imipenem has been taken off patient says only allergy he has is sulfa. took penicillin products without issues in the past since he is going off penems now, can monitor labs 03/03 -methylprednisolone 125mg bid started on 03/02 for presumed AIN -peripheral eosinophil resolved -non olgiuric -scr still uptrending -slightly worsening acidemia, po sodium bicarb started -bmp in am, might need renal support in form of IHD if renal function continues to worsens -thrombocytopenia remains the same 03/04 - Serum creatinine at baseline on admission (02/24 SCr 1.2). Yesterday SCr 4.36--> today SCr 4.48. Urine output yesterday 1.7 L, so far urine output 450 mL today. Per patient and appetite very poor due to painful oral ulcers. Will start maintenance IV fluids. Continue on Methylpred 125 mg IV twice daily. Potassium normal, bicarb 14 (was started on oral bicarb), volume status appears compensated, on room air, no acute indication for renal placement therapy today. Platelet count 50 today. White count 2.5 yesterday, 4.1 today, eosinophils 0.2%, no fevers. Labs ordered for the morning. Discussed nephrology plan with patient and at bedside, questions answered. 03/05/2025. Creatinine about the same. BUN is high, could be related to steroids. Unfortunately had decompensation overnight due to GI bleed. Will temporarily hold steroids. If stress dose steroids are needed from ICU standpoint, can use them. Acidotic, lactate levels are high. To get PRBC, IV fluids for resuscitation as per ICU. Still making urine, Perdomo indwelling with some urine output. Although this is less than yesterday. Potassium is okay. Will follow-up on acid-base status after resuscitation. Borderline for renal replacement therapy. Discussed with ICU attending bedside. IV bicarbonate as needed 03/06/2025. Creatinine is slightly better. High BUN, multifactorial including steroid use, upper GI bleed. Slightly better. Good urine output. Potassium is acceptable. Acidosis has improved with bicarbonate infusions. Overall appears to be recovering renal failure. No acute indications for renal replacement therapy. Discussed with ICU attending. Overall edematous, about 10 L positive with infusions, supportive therapy. Okay for Lasix today. Discussed with family at bedside. 03/07/2025. Patient extubated this morning. Overall renal function stable and slightly improved. Today BUN 108, creatinine 4.11 (so far peak creatinine was 4.48 on 03/04). c-ANCA, p-ANCA<1:20, complements,gb membrane normal range. No acute indication for any renal placement therapy. Okay for Lasix again today. Urine output yesterday 2.6 L. Per cumulative I&O patient is net +11 L. Labs ordered for morning. Discussed nephrology plan with patient's at bedside. Assessment and plan reviewed with Dr. Steinberg. 03/08/2025. Remains extubated. BUN better, creatinine slightly higher at 4.3. Serologies negative. Received intermittent dose of Lasix. Good urine output. Potential transfer to floor today. Discussed with ICU attending. Thrombocytopenia better Acute renal failure. Initially some concern for AIN related to antibiotics since he was on meropenem. Currently he finished all antibiotics. We could not do a biopsy due to thrombocytopenia. Initially he received a short course of prednisone/methylprednisone but we held it due to upper GI bleed. 03/09/25. Cr better. urine output ok. platelets better. oral ulcers healing. 03/10/2025. Overall improving, clinically looks better. Urine output is decent. Creatinine better. Electrolytes reviewed. Low calcium, corrected for albumin not too bad. 03/11/2025; kidney function improving, serum creatinine 3.6 today. Urine output 1.3 L yesterday. BUN improving 69 today (peak 114). Platelets 125. Blood pressures acceptable. Encouraged patient to increase oral/fluid intake as best as he can. Labs ordered for morning. Assessment and plan reviewed with Dr. Steinberg.
--- NOTE | 2025-03-11 12:49 | PN_ITS ---
Subjective Subjective Patient seen and examined with his nurse by his bedside. He had no active complaints. He denied any nausea, vomiting, fever or chills. Review of systems is otherwise negative. He has remained hemodynamically stable. Cr has trended down to 3.6 today. Objective Data Objective Data Vital Signs: Vital Signs Temp Pulse Resp BP Pulse Ox O2 Del Method O2 Flow Rate 97.7 F L 82 18 133/70 H 98 Room Air 2 03/11/25 09:45 03/11/25 09:45 03/11/25 09:45 03/11/25 09:45 03/11/25 11:37 03/11/25 09:45 03/05/25 10:08 FiO2 21 03/07/25 08:00 Oxygen Flow Rate (L/min) 2 Oxygen Delivery Method Room Air Weight: 222 lb 0.088 oz Body Mass Index (BMI) 31.8 Intake & Output: Intake and Output for Last 24 Hours 03/09/25 03/10/25 03/11/25 23:59 23:59 23:59 Intake Total 1288.17 / 1288.17 831.83 / 831.83 987.16 / 987.16 Output Total 1650 / 1650 1350 / 1350 200 / 200 Balance -361.83 / -361.83 -518.17 / -518.17 787.16 / 787.16 Lab / Micro Data 03/11/25 04:47 03/11/25 04:47 Labs: Laboratory Results - last 24 hr 03/10/25 11:50: Blood Type O POSITIVE, Antibody Screen NEGATIVE, Crossmatch See Detail 03/10/25 20:06: Hgb 7.9 L, Hct 24.0 L 03/11/25 04:47: WBC 4.8, RBC 2.76 L, Hgb 7.9 L, Hct 23.7 L, MCV 85.9, MCH 28.6, MCHC 33.3, RDW Std Deviation 50.5 H, RDW Coeff of Jerry 16.4 H, Plt Count 125 L, M PV 12.3 H, Immature Gran % (Auto) 1.100 H, Neut % (Auto) 68.8, Lymph % (Auto) 9.9 L, [place] % (Auto) 15.4 H, Eos % (Auto) 4.6, Baso % (Auto) 0.2, Absolute Neuts (auto) 3.3, Absolute Lymphs (auto) 0.47 L, Nucleated RBC % 0, Sodium 136, Potassium 3.8, Chloride 104, Carbon Dioxide 21.0, Anion Gap 11, BUN 69 H, C reatinine 3.60 H, Estim Creat Clear Calc 20.44 L, Est GFR (MDRD) Non-Af 17 L, BUN/Creatinine Ratio 19.2, Glucose 144 H, Calcium 6.9 L, Magnesium 1.8 Micro: Microbiology 03/05/25 11:45 Sputum, Induced/Lukens Gram Stain - Final 03/05/25 11:45 Sputum, Induced/Lukens Respiratory Culture - Final Corynebacterium striatum 03/05/25 04:10 Stool Stool Occult Blood (LISANDRA) - Final Occult Blood Positive 02/24/25 22:00 Blood Culture (Wb) - Anticubital Right Blood Culture - Final No growth in 5 days. 02/24/25 22:27 Blood Culture (Wb) - Left Forearm Blood Culture - Final No growth in 5 days. 02/25/25 00:36 Mucosa - Nasopharyngeal Respiratory Panel (PCR) - Final Physical Exam Const alert, oriented x3 and no apparent distress Constitutional Narrative: remains very weak and frail. General Appearance: cooperative HEENT normocephalic, head/scalp atraumatic, moist oral mucous membranes and oropharynx normal Eyes EOMs intact bilaterally Eyes Narrative: No icterus Neck supple and no JVD Lymph Lymphatic: no lymphedema noted Resp Resp Narrative: moderately diminished breath sounds bibasally, no wheezes or crackles. Remains on room air. Cardio regular rate, regular rhythm, S1 normal heart sound, S2 normal heart sound and no murmurs GI normal to inspection, nondistended, normoactive bowel sounds, soft to palpation, non-tender and non-distended Extremity normal to inspection, full ROM, normal capillary refill and no calf tenderness Extremity Narrative: 2+ edema in lower extremities. No edema in upper extremities. General Extremity: edema and no tenderness to palpation of joints or extremities Skin Skin Narrative: has some ecchymosis of upper extremities which is resolving. General Skin Exam: no breakdown Neuro no focal motor deficits, no sensory deficits noted and deep tendon reflexes 2+ bilaterally Neuro Narrative: remains very frail and weak. Sensorium / Orientation: awake, alert, oriented to person and oriented to place Motor Exam: general weakness Psych thought process normal, cooperative and affect normal Psych Narrative: Patient still weak but looking much better day by day. Appearance: appropriate Assessment & Plan Assessment/Plan (1) Thrombocytopenia: (2) CHRIS (acute kidney injury): (3) Anemia: (4) Hemorrhagic shock: (5) Acute hypotension: (6) Catheter-associated urinary tract infection: PLAN: Plan #A cute encephalopathy in the setting of acute GI bleed * due to bleeding peptic ulcer * Rapid response was called during this admission. Patient emergently transferred to the ICU where he was emergently intubated. Blood pressure was also running low. His hemoglobin had dropped to 5.7 this morning. * Gastroenterology consulted and he had emergent EGD which showed a spurting bleeding peptic ulcer which was cauterized and clips placed. Patient had to be emergently intubated when he got to the ICU. * hematology also consulted due to worsening pancytopenia * transfused with 2 units of PRBCs. * critical care con board * now extubated, and Hb today is 7.9 * switch to PO pantoprazole * #Acute hypoxic respiratory failure * Was emergently intubated and sedated as above. * Critical care on board. management as per critical care. * Now extubated and remains on room air * Sputum culture grew Corynebacterium striatum. He has completed a course of antibiotics. * resolved * #Acute on chronic anemia due to GI bleed * Has been transfused with multiple units of packed red blood cells. * Received a unit of packed red blood cells yesterday after hemoglobin dropped to 7.2. Hemoglobin today 7.9. * Platelets also up to 125. On IV pantoprazole. Switch to PO pantoprazole. * Had EGD as above which showed a bleeding peptic ulcer. * GI and critical care on board. Transfuse to keep Hb >7 * Iron profile showed iron level of 125 with iron saturation of 80.1 and ferritin of 1314. * #Hemorrhagic shock * Resolved. Now off vasopressors and also extubated. * * # Acute complicated UTI * Thought to be due to indwelling Worthy catheter. He does have a history of prostate cancer status post prostatectomy. * apparently declined to change catheter as it was recently changed and follow-up on outpatient basis. * Urine cultures grew providentia with possible carbapenems producing Enterobacteriaceae and actinobacter as well as Enterococcus and corynebacterium stratum * COmpleted a course of ciprofloxacin and Zosyn. * #CHRIS with anion gap metabolic acidosis * Creatinine continues to trend downwards and is down to 3.6 today. 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 * Nephrology on board. Cannot have kidney biopsy on account of thrombocytopenia. Kidney ultrasound was negative. * Started on IV Solu-Medrol on 03/02/2025. Patient is making urine. Per nephrology no indication to start dialysis now and to continue steroids for now. * completed a course of steroids. * #Pancytopenia * now improving * Hematology consulted and felt that thrombocytopenia was likely multifactorial in light of the acute illness and the CHRIS with resultant uremia. * hematology on board #Hypocalcemia:has been given calcium supplementation. Corrected for albumin, calcium is WNL #Bilateral lower extremity edema: Improving. #History of TIA: aspirin held due to GI bleed #Hypertension: Blood pressure was low on admission so BP meds held. Improving now. BP up in the 140s and 130 systolic. Will resume BP meds. DVT prophylaxis: SCDs. Disposition: For discharge to TCU tomorrow. Charges/Coding Visit Charges Inpatient E&M: 41293 Subs Hosp L2
[2025-03-11 15:15] VITALS: BP 136/69; PULSE 77; RESP 18; TEMP 36.7; O2SAT 97
[2025-03-11 21:49] VITALS: BP 131/75; PULSE 76; RESP 18; TEMP 36.7; O2SAT 96
[2025-03-11] MEDS: MELATONIN 3 MG TABLET PO (21:56)
[2025-03-11] MEDS: 0.9% Saline Lock 10 ML Syringe IV (21:56)
[2025-03-12 03:00] VITALS: BP 137/64; PULSE 77; RESP 16; TEMP 36.7; O2SAT 96
[2025-03-12 03:10] VITALS: BMI 31.2
[2025-03-12 05:51] LABS: Hematocrit 24.7 % (40-54); Hemoglobin 8.1 g/dL (13.0-16.5); Immature Granulocytes Count 0.040 X10^3/uL (0.0-0.0); Mean Corp Hgb Conc 32.8 g/dL (32-36); Mean Corpuscular Volume 86.1 fL (80-94); Mean Platelet Vol. 12.8 fl (6.2-12.0); NRBC Flagged by Analyzer 0 % (0-5); POSITIVE DIFFERENTIAL YES; Platelet Count 165 K/mm3 (150-450); RBC Distribution Width CV 16.0 % (11.6-14.6); RBC Distribution Width SD 49.9 fl (35.1-43.9); Red Blood Count 2.87 M/mm3 (4.6-6.2); White Blood Count 4.9 K/mm3 (4.4-11.0)
[2025-03-12 06:30] LABS: Anion Gap 12 (5-15); BUN 59 mg/dL (4-19); BUN/Creat Ratio 17.5 RATIO (10-20); Calcium,Total 7.0 mg/dL (7.6-11.0); Carbon Dioxide 20.7 mmol/L (21.0-32.0); Chloride 103 mmol/L (98-108); Estimated Creatinine Clearance 21.63 ml/min (50-250); Glucose 105 mg/dL (70-99); Potassium 4.0 mmol/L (3.3-5.1)
--- NOTE | 2025-03-12 07:21 | CON.PCM_ITS ---
HPI Consult Data Date of Consult: 03/12/25 HPI Narrative Reason for Consultation: 9 difficulties with draining the suprapubic HPI Narrative: BARBARA PEÑA, is a 79 male who presented to the hospital with sepsis acute failure kidney failure then had hemorrhagic shock due to peptic ulcer and GI bleed was in the intensive care unit, he is now recovering from this creatinine slowly getting better nurses have been reporting some leakage around the suprapubic catheter and difficulty with draining so this morning I changed suprapubic catheter and new 18 Italian catheter was put into the bladder and looks like it is draining well hopefully the creatinine will continuing to improve and I can see him as an outpatient to change suprapubic catheter in about 4 weeks. 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 Anemia Anxiety and depression Hypertension History of prostate cancer CKD (chronic kidney disease) Hearing loss, left Hearing loss, right Chronic indwelling Worthy catheter TIA (transient ischemic attack) Chronic radiation cystitis Worthy catheter in place Wears glasses Arthritis Non-smoker Home Medications ?Medication ?Instructions ?Recorded ?Last Taken ?Type amlodipine 10 mg tablet 10 mg PO DAILY BLOOD PRESSUR E 12/08/18 02/24/25 History lisinopril 40 mg tablet 40 mg PO DAILY BLOOD PRESSUR E 12/08/18 02/23/25 History terazosin 5 mg capsule 5 mg PO QPM BLOOD PRESSURE 0 12/08/18 02/23/25 History multivit,Ca,min-iron 8 mg-folic 1 tab PO DAILY SUPPLEM ENT 11/04/23 02/24/25 History acid 200 mcg-lycopene 600 mcg tablet (A Thru [employer]) L.acidophil,salivari-Bifido 1 cap PO DAILY Bowel healt h 02/24/25 02/24/25 History bifidum-Strep thermoph 175 mg capsule ciprofloxacin HCl 500 mg tablet 500 mg PO BID 10 days #20 tabs 02/24/25 02/24/25 Rx (Cipro) Allergy/AdvReac Type Severity Reaction Status Date / Time meropenem Allergy Severe All blood Verified 03/03/25 09:09 cells low losartan Allergy Mild Rash Verified 02/24/25 23:38 Sulfa (Sulfonamide Allergy Hives Verified 02/24/25 23:38 Antibiotics) atenolol AdvReac Mild WEAKNESS Verified 02/24/25 23:38 hydrochlorothiazide AdvReac Mild UNKNOWN Verified 02/24/25 23:38 indomethacin (From Indocin) AdvReac Mild GI upset Verified 02/24/25 23:38 Family History Mother , secondary to complications with c-difficile colitis. No medical history per son. No problems noted. Father , in MVA. No medical history per son. No problems noted. Family History no significant family his Surgical History History of left knee replacement Hx of radical prostatectomy Hx of cystoscopy Hx of colonoscopy Social History household members: spouse housing: house Smoking Status: Never smoker alcohol intake: never substance use type: does not use Lab / Micro Data 03/12/25 04:39 03/12/25 04:39 Labs: Laboratory Results - last 24 hr 03/12/25 04:39: WBC 4.9, RBC 2.87 L, Hgb 8.1 L, Hct 24.7 L, MCV 86.1, MCH 28.2, MCHC 32.8, RDW Std Deviation 49.9 H, RDW Coeff of Jerry 16.0 H, Plt Count 165, MPV 12.8 H, Immature Gran % (Auto) 0.800, Neut % (Auto) 69.1, Lymph % (Auto) 10.9 L, [place] % (Auto) 16.3 H, Eos % (Auto) 2.7, Baso % (Auto) 0.2, Absolute Neuts (auto) 3.4, Absolute Lymphs (auto) 0.53 L, Nucleated RBC % 0, Sodium 136, Potassium 4.0, Chloride 103, Carbon Dioxide 20.7 L, Anion Gap 12, BUN 59 H, Creatinine 3.37 H, Estim Creat Clear Calc 21.63 L, Est GFR (MDRD) Non-Af 18 L, BUN/Creatinine Ratio 17.5, Glucose 105 H, Calcium 7.0 L
[2025-03-12 07:48] VITALS: PULSE 68
[2025-03-12 10:02] VITALS: BP 137/91; PULSE 79; RESP 16; TEMP 36.5; O2SAT 96
--- NOTE | 2025-03-12 10:36 | PCM.PN.REN ---
Subjective Subjective Sitting up in bed. Patient looking clinically better each day. No complaints. Objective Data Objective Data Vital Signs: Vital Signs Temp Pulse Resp BP Pulse Ox O2 Del Method O2 Flow Rate 97.7 F L 79 16 137/91 H 96 Room Air 2 03/12/25 10:02 03/12/25 10:02 03/12/25 10:02 03/12/25 10:02 03/12/25 10:02 03/12/25 10:12 03/05/25 10:08 FiO2 21 03/07/25 08:00 Oxygen Flow Rate (L/min) 2 Oxygen Delivery Method Room Air Weight: 98.8 kg Body Mass Index (BMI) 31.2 Intake & Output: Intake and Output for Last 24 Hours 03/10/25 03/11/25 03/12/25 23:59 23:59 23:59 Intake Total 831.83 / 831.83 1246.83 / 1246.83 Output Total 1350 / 1350 725 / 1375 650 / 650 Balance -518.17 / -518.17 521.83 / -128.17 -650 / -650 Lab / Micro Data 03/12/25 04:39 03/12/25 04:39 Labs: Laboratory Results - last 24 hr 03/12/25 04:39: WBC 4.9, RBC 2.87 L, Hgb 8.1 L, Hct 24.7 L, MCV 86.1, MCH 28.2, MCHC 32.8, RDW Std Deviation 49.9 H, RDW Coeff of Jerry 16.0 H, Plt Count 165, MPV 12.8 H, Immature Gran % (Auto) 0.800, Neut % (Auto) 69.1, Lymph % (Auto) 10.9 L, [place] % (Auto) 16.3 H, Eos % (Auto) 2.7, Baso % (Auto) 0.2, Absolute Neuts (auto) 3.4, Absolute Lymphs (auto) 0.53 L, Nucleated RBC % 0, Sodium 136, Potassium 4.0, Chloride 103, Carbon Dioxide 20.7 L, Anion Gap 12, BUN 59 H, Creatinine 3.37 H, Estim Creat Clear Calc 21.63 L, Est GFR (MDRD) Non-Af 18 L, BUN/Creatinine Ratio 17.5, Glucose 105 H, Calcium 7.0 L Micro: Microbiology 03/05/25 11:45 Sputum, Induced/Lukens Gram Stain - Final 03/05/25 11:45 Sputum, Induced/Lukens Respiratory Culture - Final Corynebacterium striatum 03/05/25 04:10 Stool Stool Occult Blood (LISANDRA) - Final Occult Blood Positive 02/24/25 22:00 Blood Culture (Wb) - Anticubital Right Blood Culture - Final No growth in 5 days. 02/24/25 22:27 Blood Culture (Wb) - Left Forearm Blood Culture - Final No growth in 5 days. 02/25/25 00:36 Mucosa - Nasopharyngeal Respiratory Panel (PCR) - Final Physical Exam Narrative Alert and oriented, no apparent distress oral mucosa crusted, improving s1s2 no murmurs b/s equal, no wheezes, rhonchi or rales noted abdomen soft ++ edema bilateral legs perdomo, light urine in tubing and bag Assessment & Plan Assessment/Plan (1) Chronic renal insufficiency: (2) CHRIS (acute kidney injury): PLAN: Baseline Cr is around 1.2 -1.3. Cr was close to baseline on admit Renal US ok supra pubic catheter in place increasing eosinophilia in CBC. no rash. no itching. thrombocytopenia. as per my discussion with hospitalist, hematology has been consulted. doubt its TTP since platelet count is normal on admit off heparin products for now other than a kidney biopsy no other way to rule out AIN for sure. however ID on consult today and imipenem has been taken off patient says only allergy he has is sulfa. took penicillin products without issues in the past since he is going off penExecution Labs now, can monitor labs 03/03 -methylprednisolone 125mg bid started on 03/02 for presumed AIN -peripheral eosinophil resolved -non olgiuric -scr still uptrending -slightly worsening acidemia, po sodium bicarb started -bmp in am, might need renal support in form of IHD if renal function continues to worsens -thrombocytopenia remains the same 03/04 - Serum creatinine at baseline on admission (02/24 SCr 1.2). Yesterday SCr 4.36--> today SCr 4.48. Urine output yesterday 1.7 L, so far urine output 450 mL today. Per patient and appetite very poor due to painful oral ulcers. Will start maintenance IV fluids. Continue on Methylpred 125 mg IV twice daily. Potassium normal, bicarb 14 (was started on oral bicarb), volume status appears compensated, on room air, no acute indication for renal placement therapy today. Platelet count 50 today. White count 2.5 yesterday, 4.1 today, eosinophils 0.2%, no fevers. Labs ordered for the morning. Discussed nephrology plan with patient and at bedside, questions answered. 03/05/2025. Creatinine about the same. BUN is high, could be related to steroids. Unfortunately had decompensation overnight due to GI bleed. Will temporarily hold steroids. If stress dose steroids are needed from ICU standpoint, can use them. Acidotic, lactate levels are high. To get PRBC, IV fluids for resuscitation as per ICU. Still making urine, Perdomo indwelling with some urine output. Although this is less than yesterday. Potassium is okay. Will follow-up on acid-base status after resuscitation. Borderline for renal replacement therapy. Discussed with ICU attending bedside. IV bicarbonate as needed 03/06/2025. Creatinine is slightly better. High BUN, multifactorial including steroid use, upper GI bleed. Slightly better. Good urine output. Potassium is acceptable. Acidosis has improved with bicarbonate infusions. Overall appears to be recovering renal failure. No acute indications for renal replacement therapy. Discussed with ICU attending. Overall edematous, about 10 L positive with infusions, supportive therapy. Okay for Lasix today. Discussed with family at bedside. 03/07/2025. Patient extubated this morning. Overall renal function stable and slightly improved. Today BUN 108, creatinine 4.11 (so far peak creatinine was 4.48 on 03/04). c-ANCA, p-ANCA<1:20, complements,gb membrane normal range. No acute indication for any renal placement therapy. Okay for Lasix again today. Urine output yesterday 2.6 L. Per cumulative I&O patient is net +11 L. Labs ordered for morning. Discussed nephrology plan with patient's at bedside. Assessment and plan reviewed with Dr. Steinberg. 03/08/2025. Remains extubated. BUN better, creatinine slightly higher at 4.3. Serologies negative. Received intermittent dose of Lasix. Good urine output. Potential transfer to floor today. Discussed with ICU attending. Thrombocytopenia better Acute renal failure. Initially some concern for AIN related to antibiotics since he was on meropenem. Currently he finished all antibiotics. We could not do a biopsy due to thrombocytopenia. Initially he received a short course of prednisone/methylprednisone but we held it due to upper GI bleed. 03/09/25. Cr better. urine output ok. platelets better. oral ulcers healing. 03/10/2025. Overall improving, clinically looks better. Urine output is decent. Creatinine better. Electrolytes reviewed. Low calcium, corrected for albumin not too bad. 03/11/2025; kidney function improving, serum creatinine 3.6 today. Urine output 1.3 L yesterday. BUN improving 69 today (peak 114). Platelets 125. Blood pressures acceptable. Encouraged patient to increase oral/fluid intake as best as he can. Labs ordered for morning. Assessment and plan reviewed with Dr. Steinberg. 03/12/2025; kidney function continues to improve daily. SCr 3.37mg/dL today. Good urine output. Oral ulcers healing and appetite/ oral intake is improving. Will arrange for nephrology hospital follow-up after hospital discharge. Assessment and plan reviewed with Dr. Steinberg.
--- NOTE | 2025-03-12 10:41 | PN.HOSP_ITS ---
Reason for Visit Chief Complaint: Recent UTI Dx, worsening F/chills, only 1 dose abx therapy. Objective Data Objective Data Vital Signs: Vital Signs Temp Pulse Resp BP Pulse Ox O2 Del Method O2 Flow Rate 97.7 F L 79 16 137/91 H 96 Room Air 2 03/12/25 10:02 03/12/25 10:02 03/12/25 10:02 03/12/25 10:02 03/12/25 10:02 03/12/25 10:12 03/05/25 10:08 FiO2 21 03/07/25 08:00 Oxygen Flow Rate (L/min) 2 Oxygen Delivery Method Room Air Weight: 217 lb 13.067 oz Body Mass Index (BMI) 31.2 Intake & Output: Intake and Output for Last 24 Hours 03/10/25 03/11/25 03/12/25 23:59 23:59 23:59 Intake Total 831.83 / 831.83 1246.83 / 1246.83 Output Total 1350 / 1350 725 / 1375 650 / 650 Balance -518.17 / -518.17 521.83 / -128.17 -650 / -650 Lab / Micro Data 03/12/25 04:39 03/12/25 04:39 Labs: Laboratory Results - last 24 hr 03/12/25 04:39: WBC 4.9, RBC 2.87 L, Hgb 8.1 L, Hct 24.7 L, MCV 86.1, MCH 28.2, MCHC 32.8, RDW Std Deviation 49.9 H, RDW Coeff of Jerry 16.0 H, Plt Count 165, MPV 12.8 H, Immature Gran % (Auto) 0.800, Neut % (Auto) 69.1, Lymph % (Auto) 10.9 L, [place] % (Auto) 16.3 H, Eos % (Auto) 2.7, Baso % (Auto) 0.2, Absolute Neuts (auto) 3.4, Absolute Lymphs (auto) 0.53 L, Nucleated RBC % 0, Sodium 136, Potassium 4.0, Chloride 103, Carbon Dioxide 20.7 L, Anion Gap 12, BUN 59 H, Creatinine 3.37 H, Estim Creat Clear Calc 21.63 L, Est GFR (MDRD) Non-Af 18 L, BUN/Creatinine Ratio 17.5, Glucose 105 H, Calcium 7.0 L Micro: Microbiology 03/05/25 11:45 Sputum, Induced/Lukens Gram Stain - Final 03/05/25 11:45 Sputum, Induced/Lukens Respiratory Culture - Final Corynebacterium striatum 03/05/25 04:10 Stool Stool Occult Blood (LISANDRA) - Final Occult Blood Positive 02/24/25 22:00 Blood Culture (Wb) - Anticubital Right Blood Culture - Final No growth in 5 days. 02/24/25 22:27 Blood Culture (Wb) - Left Forearm Blood Culture - Final No growth in 5 days. 02/25/25 00:36 Mucosa - Nasopharyngeal Respiratory Panel (PCR) - Final Physical Exam Narrative Seen and examined Bilateral lower extremity edema Has mild sore with crust and superficial ulceration. Physical exam General: Alert, Oriented x3, Cooperative. BMI 31.3 kg per square HEENT: Atraumatic, PERRLA, EOMI, Normocephalic. Oral: Bilateral lips superficial ulcer with crust with mild soreness. No oral, gingival or Mucosal Lesions/ Ulcerations Neck: Supple, No JVD, Negative Carotid Bruits Chest wall/Lungs: Air entry diminished in bilateral lung bases. No crepitation/rhonchi Cardiovascular: Regular rate and rhythm, Normal S1,S2, No M/G/R Abdomen: Bowel Sounds Present, Soft, Non Tender, Non-Distended : Suprapubic catheter changed no renal angle tenderness. No suprapubic tenderness. Extremities: Bilateral lower leg pitting edema, Capillary Refill Less than 3 Seconds Skin: No rashes, No breakdown Musculoskeletal: No Tenderness to Palpation of Joints or Extremities Neurological: Cranial nerves II-XII grossly intact, DTR 2+/4. No acute focal neurological deficit. Psych/Mental Status: Normal Affect, Appropriate. Assessment & Plan Assessment/Plan (1) Thrombocytopenia: (2) CHRIS (acute kidney injury): (3) Anemia: (4) Hemorrhagic shock: (5) Acute hypotension: (6) Catheter-associated urinary tract infection: PLAN: Plan 79-year-old gentleman originally came to ED with subjective fever shaking chills was sent home from the ER 1 day before after dialysis continue ciprofloxacin. Patient has indwelling suprapubic catheter. History of bladder cancer with recurrent obstruction bleeding. #A cute encephalopathy in the setting of acute GI bleed * due to bleeding peptic ulcer * Rapid response was called during this admission. Patient emergently transferred to the ICU where he was emergently intubated. Blood pressure was also running low. His hemoglobin had dropped to 5.7 this morning. * Gastroenterology consulted and he had emergent EGD which showed a spurting bleeding peptic ulcer which was cauterized and clips placed. Patient had to be emergently intubated when he got to the ICU. * hematology also consulted due to worsening pancytopenia * transfused with 2 units of PRBCs. * critical care con board * now extubated, and Hb today is 7.9 * switch to PO pantoprazole * #Acute hypoxic respiratory failure * Was emergently intubated and sedated as above. * Critical care on board. management as per critical care. * Now extubated and remains on room air * Sputum culture grew Corynebacterium striatum. He has completed a course of antibiotics. * resolved * #Acute on chronic anemia due to GI bleed * Has been transfused with multiple units of packed red blood cells. * Received a unit of packed red blood cells yesterday after hemoglobin dropped to 7.2. Hemoglobin today 7.9. * Platelets also up to 125. On IV pantoprazole. Switch to PO pantoprazole. * Had EGD as above which showed a bleeding peptic ulcer. * GI and critical care on board. Transfuse to keep Hb >7 * Iron profile showed iron level of 125 with iron saturation of 80.1 and ferritin of 1314. * #Hemorrhagic shock * Resolved. Now off vasopressors and also extubated. * * # Acute complicated UTI * Thought to be due to indwelling Worthy catheter. He does have a history of prostate cancer status post prostatectomy. * apparently declined to change catheter as it was recently changed and follow-up on outpatient basis. * Urine cultures grew providentia with possible carbapenems producing Enterobacteriaceae and actinobacter as well as Enterococcus and corynebacterium stratum * COmpleted a course of ciprofloxacin and Zosyn. * #CHRIS with anion gap metabolic acidosis * Creatinine continues to trend downwards and is down to 3.6 today. 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 * Nephrology on board. Cannot have kidney biopsy on account of thrombocytopenia. Kidney ultrasound was negative. * Started on IV Solu-Medrol on 03/02/2025. Patient is making urine. Per nephrology no indication to start dialysis now and to continue steroids for now. * completed a course of steroids. * #Pancytopenia * now improving * Hematology consulted and felt that thrombocytopenia was likely multifactorial in light of the acute illness and the CHRIS with resultant uremia. * hematology on board #Hypocalcemia:has been given calcium supplementation. Corrected for albumin, calcium is WNL #Bilateral lower extremity edema: Improving. #History of TIA: aspirin held due to GI bleed #Hypertension: Blood pressure was low on admission so BP meds held. Improving now. BP up in the 140s and 130 systolic. Will resume BP meds. DVT prophylaxis: SCDs. Disposition: For discharge to TCU tomorrow.
--- NOTE | 2025-03-12 11:06 | TREXTCAR_ITS ---
Diet Diet Order/Speech Therapy: INPATIENT Hospital Diet / Speech Therapy Order(s) 03/10/25 10:14 Diet: Regular - General Food consistency:: Regular Liquid Consistency:: Regular/Thin Type of Dietary Supplement:: Ensure Plus High Protein Diet Comments: 240mL chocolate EPHP with breakfast plus a cup of ice Speech Therapy Comments: Distant supervision with meals. Spouse may supervise. Swallow guidelines Wound(s) lips: Wound Type: blisters/medication reaction Problem/Diagnosis (1) Thrombocytopenia: Status: Acute Code(s): D69.6 - Thrombocytopenia, unspecified (2) CHRIS (acute kidney injury): Status: Acute Code(s): N17.9 - Acute kidney failure, unspecified (3) Anemia: Status: Acute Code(s): D64.9 - Anemia, unspecified (4) Hemorrhagic shock: Status: Acute Code(s): R57.8 - Other shock (5) Acute hypotension: Status: Acute Code(s): I95.9 - Hypotension, unspecified (6) Catheter-associated urinary tract infection: Status: Acute Code(s): T83.511A - Infection and inflammatory reaction due to indwelling urethral catheter, initial encounter; N39.0 - Urinary tract infection, site not specified Plan 79-year-old gentleman originally came to ED with subjective fever shaking chills was sent home from the ER 1 day before after provisional diagnosis of UTI on ciprofloxacin. Patient has history of prostate cancer s/p radical prostatectomy surgery and radiation cystitis there indwelling suprapubic catheter. #A cute encephalopathy in the setting of acute GI bleed * due to bleeding peptic ulcer * Rapid response was called during this admission. Patient emergently transferred to the ICU where he was emergently intubated. Blood pressure was also running low. His hemoglobin had dropped to 5.7 this morning. * Gastroenterology consulted and he had emergent EGD which showed a spurting bleeding peptic ulcer which was cauterized and clips placed. Patient had to be emergently intubated when he got to the ICU. * hematology also consulted due to worsening pancytopenia * transfused with 2 units of PRBCs. * critical care con board * now extubated, and Hb today is 7.9 * switch to PO pantoprazole * #Acute hypoxic respiratory failure * Was emergently intubated and sedated as above. * Critical care on board. management as per critical care. * Now extubated and remains on room air * Sputum culture grew Corynebacterium striatum. He has completed a course of antibiotics. * resolved * #Acute on chronic anemia due to GI bleed * Has been transfused with multiple units of packed red blood cells. * Received a unit of packed red blood cells yesterday after hemoglobin dropped to 7.2. Hemoglobin today 7.9. * Platelets also up to 125. On IV pantoprazole. Switch to PO pantoprazole. * Had EGD as above which showed a bleeding peptic ulcer. * GI and critical care on board. Transfuse to keep Hb >7 * Iron profile showed iron level of 125 with iron saturation of 80.1 and ferr itin of 1314. * #Hemorrhagic shock * Resolved. Now off vasopressors and also extubated. * * # Acute complicated UTI * Thought to be due to indwelling Worthy catheter. He does have a history of prostate cancer status post prostatectomy. * apparently declined to change catheter as it was recently changed and follow-up on outpatient basis. * Urine cultures grew providentia with possible carbapenems producing Enterobacteriaceae and actinobacter as well as Enterococcus and corynebacterium stratum * COmpleted a course of ciprofloxacin and Zosyn. * #CHRIS with anion gap metabolic acidosis * Creatinine continues to trend downwards and is down to 3.6 today. 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 * Nephrology on board. Cannot have kidney biopsy on account of thrombocytopenia. Kidney ultrasound was negative. * Started on IV Solu-Medrol on 03/02/2025. Patient is making urine. Per nephrology no indication to start dialysis now and to continue steroids for now. * completed a course of steroids. * #Pancytopenia * now improving * Hematology consulted and felt that thrombocytopenia was likely multifactorial in light of the acute illness and the CHRIS with resultant uremia. * hematology on board #Hypocalcemia:has been given calcium supplementation. Corrected for albumin, calcium is WNL #Bilateral lower extremity edema: Improving. #History of TIA: aspirin held due to GI bleed #Hypertension: Blood pressure was low on admission so BP meds held. Improving now. BP up in the 140s and 130 systolic. Will resume BP meds. DVT prophylaxis: SCDs. Allergies/Procedures Done in Hospital Allergies meropenem Allergy (Severe, Verified 03/03/25 09:09) All blood cells low Acute interstitial nephritis. losartan Allergy (Mild, Verified 02/24/25 23:38) Rash Sulfa (Sulfonamide Antibiotics) Allergy (Verified 02/24/25 23:38) Hives atenolol Adverse Reaction (Mild, Verified 02/24/25 23:38) WEAKNESS hydrochlorothiazide Adverse Reaction (Mild, Verified 02/24/25 23:38) UNKNOWN Pt states did not tolerate indomethacin (From Indocin) Adverse Reaction (Mild, Verified 02/24/25 23:38) GI upset Dietary and Speech Recommendations Dietitian Recommendations/Changes: Will continue regular diet to optimize oral intake. Will order 240mL chocolate EPHP with breakfast with a cup of ice. Will monitor weight trends. At time of discharge recommend pt follows a low sodium diet. Discharge Plan Admission Admit Date/Time: 02/24/25 22:29 Attending Provider: Jameel Herrera Primary Care Provider: Iasiah Han Consulting Providers: Feli Madden; Damian Horner; Jameel Herrera; Jp Hinson; Claudia Carnes; Columba Vale; Anita Yanez; Cameron Giron; An Steinberg; Rajinder Rdz; Blayne Jett; Alban Fuentes; James Leiva; Cameron Marie; Joey Howe; Judah Cruz; Jair Garcia; Thuy Perez NP; Zhao Gilliland; Lucina Gu Discharge Orders/Prescriptions Prescriptions: No Action terazosin 5 MG capsule 5 mg PO QPM amlodipine 10 MG tablet 10 mg PO DAILY lisinopril 40 MG tablet 40 mg PO DAILY ciprofloxacin HCl [Cipro] 500 mg tablet 500 mg PO BID 10 Days Qty: 20 0RF L.acidoph,saliva-B.bif-S.therm 175 mg Capsule 1 cap PO DAILY Rx Instructions: Pwaj-iri-iqivner for 1 week. A Thru Z Men's Ultimate 8 mg iron- 200 mcg-600 mcg tablet 1 tab PO DAILY Referrals / Follow Up: Isaiah Han MD [Primary Care Provider, Family Practice] Darryn Underwood DO [Med Staff - Active Staff, Pulmonary Medicine] - Within 1 Month An Steinberg MD [Med Staff - Consulting, Nephrology] - Within 2 Weeks Jp Hinson DO [Med Staff - Active Staff, Gastroenterology] - Within 1 Month Thuy Perez SHANK INSPECTOR, SHANK INSPECTOR-C [Med Staff - Adv Practice Prof, Oncology] - Within 1 Month Disposition Disposition (needs filled in before D/C Order can be placed): Detention Facility
--- NOTE | 2025-03-12 11:06 | PCM.TXEXTCAR ---
Diet Diet Order/Speech Therapy: INPATIENT Hospital Diet / Speech Therapy Order(s) 03/10/25 10:14 Diet: Regular - General Food consistency:: Regular Liquid Consistency:: Regular/Thin Type of Dietary Supplement:: Ensure Plus High Protein Diet Comments: 240mL chocolate EPHP with breakfast plus a cup of ice Speech Therapy Comments: Distant supervision with meals. Spouse may supervise. Swallow guidelines DC O2, CPAP, BIPAP needs Home O2 Discharge instructions: No Wound(s) lips: Wound Type: blisters/medication reaction Problem/Diagnosis (1) Thrombocytopenia: Status: Acute Code(s): D69.6 - Thrombocytopenia, unspecified (2) CHRIS (acute kidney injury): Status: Acute Code(s): N17.9 - Acute kidney failure, unspecified (3) Anemia: Status: Acute Code(s): D64.9 - Anemia, unspecified (4) Hemorrhagic shock: Status: Acute Code(s): R57.8 - Other shock (5) Acute hypotension: Status: Acute Code(s): I95.9 - Hypotension, unspecified (6) Catheter-associated urinary tract infection: Status: Acute Code(s): T83.511A - Infection and inflammatory reaction due to indwelling urethral catheter, initial encounter; N39.0 - Urinary tract infection, site not specified Plan 79-year-old gentleman originally came to ED with subjective fever shaking chills was sent home from the ER 1 day before after provisional diagnosis of UTI on ciprofloxacin. Patient has history of prostate cancer s/p radical prostatectomy surgery and radiation cystitis there indwelling suprapubic catheter. #A cute encephalopathy in the setting of acute GI bleed due to bleeding peptic ulcer Rapid response was called during this admission. Patient emergently transferred to the ICU where he was emergently intubated. Blood pressure was also running low. His hemoglobin had dropped to 5.7 this morning. Gastroenterology consulted and he had emergent EGD which showed a spurting bleeding peptic ulcer which was cauterized and clips placed. Patient had to be emergently intubated when he got to the ICU. hematology also consulted due to worsening pancytopenia transfused with 2 units of PRBCs. critical care con board now extubated, and Hb today is 7.9 switch to PO pantoprazole #Acute hypoxic respiratory failure Was emergently intubated and sedated as above. Critical care on board. management as per critical care. Now extubated and remains on room air Sputum culture grew Corynebacterium striatum. He has completed a course of antibiotics. resolved #Acute on chronic anemia due to GI bleed Has been transfused with multiple units of packed red blood cells. Received a unit of packed red blood cells yesterday after hemoglobin dropped to 7.2. Hemoglobin today 7.9. Platelets also up to 125. On IV pantoprazole. Switch to PO pantoprazole. Had EGD as above which showed a bleeding peptic ulcer. GI and critical care on board. Transfuse to keep Hb >7 Iron profile showed iron level of 125 with iron saturation of 80.1 and ferritin of 1314. #Hemorrhagic shock Resolved. Now off vasopressors and also extubated. # Acute complicated UTI Thought to be due to indwelling Worthy catheter. He does have a history of prostate cancer status post prostatectomy. apparently declined to change catheter as it was recently changed and follow-up on outpatient basis. Urine cultures grew providentia with possible carbapenems producing Enterobacteriaceae and actinobacter as well as Enterococcus and corynebacterium stratum COmpleted a course of ciprofloxacin and Zosyn. #CHRIS with anion gap metabolic acidosis Creatinine continues to trend downwards and is down to 3.6 today. 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 Nephrology on board. Cannot have kidney biopsy on account of thrombocytopenia. Kidney ultrasound was negative. Started on IV Solu-Medrol on 03/02/2025. Patient is making urine. Per nephrology no indication to start dialysis now and to continue steroids for now. completed a course of steroids. #Pancytopenia now improving Hematology consulted and felt that thrombocytopenia was likely multifactorial in light of the acute illness and the CHRIS with resultant uremia. hematology on board #Hypocalcemia:has been given calcium supplementation. Corrected for albumin, calcium is WNL #Bilateral lower extremity edema: Improving. #History of TIA: aspirin held due to GI bleed #Hypertension: Blood pressure was low on admission so BP meds held. Improving now. BP up in the 140s and 130 systolic. Will resume BP meds. DVT prophylaxis: SCDs. Allergies/Procedures Done in Hospital Allergies meropenem Allergy (Severe, Verified 03/03/25 09:09) All blood cells low Acute interstitial nephritis. losartan Allergy (Mild, Verified 02/24/25 23:38) Rash Sulfa (Sulfonamide Antibiotics) Allergy (Verified 02/24/25 23:38) Hives atenolol Adverse Reaction (Mild, Verified 02/24/25 23:38) WEAKNESS hydrochlorothiazide Adverse Reaction (Mild, Verified 02/24/25 23:38) UNKNOWN Pt states did not tolerate indomethacin (From Indocin) Adverse Reaction (Mild, Verified 02/24/25 23:38) GI upset Type of Care/Length of Stay Estimated LOS: Convalescent Care Less Than 30 days Type of Care Needed: Skilled Rehab Potential: Good Prognosis: Good Additional Orders/Day of Discharge Day of Discharge: 03/12/25 Dietary and Speech Recommendations Dietitian Recommendations/Changes: Will continue regular diet to optimize oral intake. Will order 240mL chocolate EPHP with breakfast with a cup of ice. Will monitor weight trends. At time of discharge recommend pt follows a low sodium diet. Discharge Plan Admission Admit Date/Time: 02/24/25 22:29 Attending Provider: Jameel Herrera Primary Care Provider: Isaiah Han Consulting Providers: Feli Madden; Damian Horner; Jameel Herrera; Jp Hinson; Claudia Carnes; Columba Vale; Anita Yanez; Cameron Giron; An Steinberg; Rajinder Rdz; Blayne Jett; Alban Fuentes; James Leiva; Cameron Marie; Joey Howe; Judah Cruz; Jair Garcia; Thuy Perez NP; Zhao Gilliland; Lucina Gu Discharge Orders/Prescriptions Prescriptions: New acetaminophen 325 mg Tablet 650 mg PO Q4H PRN PRN (Reason: Fever, pain 1-03/15) Qty: 0 0RF sennosides-docusate sodium [Stimulant Laxative Plus] 8.6-50 mg Tablet 2 tab PO BID PRN PRN (Reason: Constipation) Qty: 0 0RF pantoprazole 40 mg Tablet,Delayed Release (Dr/Ec) 40 mg PO BID Qty: 0 0RF furosemide [Lasix] 40 mg tablet 40 mg PO DAILY PRN (Reason: leg swelling) 30 Days Qty: 30 0RF Continued terazosin 5 MG capsule 5 mg PO QPM L.acidoph,saliva-B.bif-S.therm 175 mg Capsule 1 cap PO DAILY Rx Instructions: Pgmg-fut-kudyqod for 1 week. A Thru Z Men's Ultimate 8 mg iron- 200 mcg-600 mcg tablet 1 tab PO DAILY Discontinued amlodipine 10 MG tablet 10 mg PO DAILY lisinopril 40 MG tablet 40 mg PO DAILY ciprofloxacin HCl [Cipro] 500 mg tablet 500 mg PO BID 10 Days Qty: 20 0RF Referrals / Follow Up: Isaiah Han MD [Primary Care Provider, Family Practice] Draryn Underwood DO [Med Staff - Active Staff, Pulmonary Medicine] - Within 1 Month An Steinberg MD [Med Staff - Consulting, Nephrology] - Within 2 Weeks Jp Hinson DO [Med Staff - Active Staff, Gastroenterology] - Within 1 Month Thuy Perez NP, FOREST LOGIST[employer] MANAGER-C [Med Staff - Adv Practice Prof, Oncology] - Within 1 Month Disposition Disposition (needs filled in before D/C Order can be placed): [facility]
[2025-03-12] MEDS: 0.9% Saline Lock 10 ML Syringe IV (12:47)
--- NOTE | 2025-03-12 13:03 | DS.PCM_ITS ---
Providers Date of Admission: 02/24/25 Date of Discharge: 03/12/25 Primary Care Physician: Dr. Isaiah Han MD Consultations 02/27/25 10:24 Consult: Urology Routine Consulting Provider: Zhao Gilliland Reason for Consult: Change out suprapubic catheter EMERGENT Consult: No Notified: Yes Date Notified: 02/28/25 Time Notified: 07:20 Method of Notification: Verbal 02/28/25 08:44 Consult: Infectious Disease Routine Consulting Provider: Cameron Giron Reason for Consult: polymicrobial CAUTI EMERGENT Consult: No Notified: Yes Date Notified: 02/28/25 Time Notified: 08:44 Method of Notification: Text 02/28/25 08:54 Consult: Nephrology Routine Consulting Provider: An Steinberg Reason for Consult: CHRIS EMERGENT Consult: No Notified: Yes Date Notified: 02/28/25 Time Notified: 08:55 Method of Notification: Text 03/05/25 07:02 Consult: Gastroenterology Routine Consulting Provider: [facility] Reason for Consult: hgb 5.7 EMERGENT Consult: Yes Notified: Yes Date Notified: 03/05/25 Time Notified: 07:02 Method of Notification: Answering Service 03/05/25 09:55 Consult: Mogul Operator / Pulmonary Medicine Routine Consulting Provider: Intensivists/Pulmonary Med Reason for Consult: acute on chronic anemia due to GI bleed, acute encephalopathy EMERGENT Consult: No Notified: Yes Date Notified: 03/05/25 Time Notified: 09:55 Method of Notification: Verbal 03/05/25 12:21 Consult: Oncology/Hematology Routine Consulting Provider: [facility] Reason for Consult: pancytopenia, worsening pancytopenia EMERGENT Consult: No Notified: Yes Date Notified: 03/05/25 Time Notified: 12:21 Method of Notification: Text Reason For Visit: COMPLICATED UTI, SIRS Diagnosis Discharge Diagnosis (1) Thrombocytopenia: Status: Acute Code(s): D69.6 - Thrombocytopenia, unspecified (2) CHRIS (acute kidney injury): Status: Acute Code(s): N17.9 - Acute kidney failure, unspecified (3) Anemia: Status: Acute Code(s): D64.9 - Anemia, unspecified (4) Hemorrhagic shock: Status: Acute Code(s): R57.8 - Other shock (5) Acute hypotension: Status: Acute Code(s): I95.9 - Hypotension, unspecified (6) Catheter-associated urinary tract infection: Status: Acute Code(s): T83.511A - Infection and inflammatory reaction due to indwelling urethral catheter, initial encounter; N39.0 - Urinary tract infection, site not specified Plan 79-year-old gentleman originally came to ED with subjective fever shaking chills was sent home from the ER 1 day before after provisional diagnosis of UTI on ciprofloxacin. Patient has history of prostate cancer s/p radical prostatectomy surgery and radiation cystitis there indwelling suprapubic catheter. #A cute encephalopathy in the setting of acute GI bleed * due to bleeding peptic ulcer * Rapid response was called during this admission. Patient emergently transferred to the ICU where he was emergently intubated. Blood pressure was also running low. His hemoglobin had dropped to 5.7 this morning. * Gastroenterology consulted and he had emergent EGD which showed a spurting bleeding peptic ulcer which was cauterized and clips placed. Patient had to be emergently intubated when he got to the ICU. * hematology also consulted due to worsening pancytopenia * transfused with 2 units of PRBCs. * critical care con board * now extubated, and Hb today is 7.9 * switch to PO pantoprazole 03/12: Patient discharged on pantoprazole. H&H 8.1/24.7%. Platelet 165K. WBC 4.9 K. Follow-up in GI office #Acute hypoxic respiratory failure * Was emergently intubated and sedated as above. * Critical care on board. management as per critical care. * Now extubated and remains on room air * Sputum culture grew Corynebacterium striatum. He has completed a course of antibiotics. * resolved 03/12: Continue incentive spirometry and PEP. Follow-up in pulmonary clinic #Acute on chronic anemia due to GI bleed/anemia of chronic disease * Has been transfused with multiple units of packed red blood cells. * Received a unit of packed red blood cells yesterday after hemoglobin dropped to 7.2. Hemoglobin today 7.9. * Platelets also up to 125. On IV pantoprazole. Switch to PO pantoprazole. * Had EGD as above which showed a bleeding peptic ulcer. * GI and critical care on board. Transfuse to keep Hb >7 * Iron profile showed iron level of 125 with iron saturation of 80.1 and ferritin of 1314. #Hemorrhagic shock * Resolved. Now off vasopressors and also extubated. # Acute complicated UTI * Thought to be due to indwelling Worthy catheter. He does have a history of prostate cancer status post prostatectomy. * apparently declined to change catheter as it was recently changed and follow-up on outpatient basis. * Urine cultures grew providentia with possible carbapenems producing Enterobacteriaceae and actinobacter as well as Enterococcus and corynebacterium stratum * Completed a course of ciprofloxacin and Zosyn. #CHRIS with anion gap metabolic acidosis * Creatinine continues to trend downwards and is down to 3.6 today. 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 * Nephrology on board. Cannot have kidney biopsy on account of thrombocytopenia. Kidney ultrasound was negative. * Started on IV Solu-Medrol on 03/02/2025. Patient is making urine. Per nephrology no indication to start dialysis now and to continue steroids for now. * completed a course of steroids. #Pancytopenia * now improving * Hematology consulted and felt that thrombocytopenia was likely multifactorial in light of the acute illness and the CHRIS with resultant uremia. * hematology on board 03/12: Follow-up in hematology/oncology office. #Hypocalcemia:has been given calcium supplementation. Corrected for albumin, calcium is WNL 03/12: Corrected calcium level is normal. #Bilateral lower extremity edema: Improving. : Discussed with the traffic control supervisor. Discharged on furosemide 40 mg daily as needed for leg swelling. Monitor kidney function. #History of TIA: aspirin held due to GI bleed 03/12: For now high risk for bleeding as mentioned above in view of recovering feature of pancytopenia and anemia. Follow-up oncology office to consider putting back on aspirin when blood cell counts parameters permits #Hypertension: Blood pressure was low on admission so BP meds held. Improving now. BP up in the 140s and 130 systolic. Will resume BP meds. DVT prophylaxis: SCDs. Discharge medication reconciliation done. Discharge follow-up instructions completed. Discharge process discussed with the patient and all questions were answered to patient's satisfaction. Follow with PCP in 1 to 2 weeks Total time spent, exact 35 minutes on discharge meds reconciliation, examination, coordination of care with nurses and ancillary staff, review of imaging and blood test and discussion with the patient on follow-up instructions. Medications at Discharge Home Medications terazosin 5 mg capsule 5 mg PO QPM BLOOD PRESSURE 12/08/18 multivit,Ca,min-iron 8 mg-folic acid 200 mcg-lycopene 600 mcg tablet (A Thru Z Men's Ultimate) 1 tab PO DAILY SUPPLEMENT 11/04/23 L.acidophil,salivari-Bifido bifidum-Strep thermoph 175 mg capsule 1 cap PO DAILY Bowel health 02/24/25 acetaminophen 325 mg tablet 650 mg (2 x 325 mg) PO Q4H PRN PRN Fever, pain 1- 03/15 #0 tabs 03/12/25 furosemide 40 mg tablet (Lasix) 40 mg PO DAILY PRN leg swelling 1 month #30 tabs 03/12/25 pantoprazole 40 mg tablet,delayed release 40 mg PO BID #0 tabs 03/12/25 sennosides 8.6 mg-docusate sodium 50 mg tablet (Stimulant Laxative Plus) 2 tab PO BID PRN PRN Constipation #0 tabs 03/12/25 Physical Exam Narrative Seen and examined Bilateral lower extremity edema. Furosemide 40 mg IV 1 dose given Has mild sore with crust and superficial ulceration. Physical exam General: Alert, Oriented x3, Cooperative. BMI 31.3 kg per square HEENT: Atraumatic, PERRLA, EOMI, Normocephalic. Oral: Bilateral lips superficial ulcer with crust with mild soreness. No oral, gingival or Mucosal Lesions/ Ulcerations Neck: Supple, No JVD, Negative Carotid Bruits Chest wall/Lungs: Air entry diminished in bilateral lung bases. No crepitation/rhonchi Cardiovascular: Regular rate and rhythm, Normal S1,S2, No M/G/R Abdomen: Bowel Sounds Present, Soft, Non Tender, Non-Distended : Suprapubic catheter changed no renal angle tenderness. No suprapubic tenderness. Extremities: Bilateral lower leg pitting edema, Capillary Refill Less than 3 Seconds Skin: No rashes, No breakdown Musculoskeletal: No Tenderness to Palpation of Joints or Extremities Neurological: Cranial nerves II-XII grossly intact, DTR 2+/4. No acute focal neurological deficit. Psych/Mental Status: Normal Affect, Appropriate. Weight / BMI Weight Weight: 217 lb 13.067 oz Body Mass Index (BMI) 31.2 ABG / Lab / Microbiology Data 03/12/25 04:39 03/12/25 04:39 Laboratory: Laboratory Results - last 24 hr 03/12/25 04:39: WBC 4.9, RBC 2.87 L, Hgb 8.1 L, Hct 24.7 L, MCV 86.1, MCH 28.2, MCHC 32.8, RDW Std Deviation 49.9 H, RDW Coeff of Jerry 16.0 H, Plt Count 165, MPV 12.8 H, Immature Gran % (Auto) 0.800, Neut % (Auto) 69.1, Lymph % (Auto) 10.9 L, [place] % (Auto) 16.3 H, Eos % (Auto) 2.7, Baso % (Auto) 0.2, Absolute Neuts (auto) 3.4, Absolute Lymphs (auto) 0.53 L, Nucleated RBC % 0, Sodium 136, Potassium 4.0, Chloride 103, Carbon Dioxide 20.7 L, Anion Gap 12, BUN 59 H, Creatinine 3.37 H, Estim Creat Clear Calc 21.63 L, Est GFR (MDRD) Non-Af 18 L, BUN/Creatinine Ratio 17.5, Glucose 105 H, Calcium 7.0 L Microbiology: Microbiology 03/05/25 11:45 Sputum, Induced/Lukens Gram Stain - Final 03/05/25 11:45 Sputum, Induced/Lukens Respiratory Culture - Final Corynebacterium striatum 03/05/25 04:10 Stool Stool Occult Blood (LISANDRA) - Final Occult Blood Positive 02/24/25 22:00 Blood Culture (Wb) - Anticubital Right Blood Culture - Final No growth in 5 days. 02/24/25 22:27 Blood Culture (Wb) - Left Forearm Blood Culture - Final No growth in 5 days. 02/25/25 00:36 Mucosa - Nasopharyngeal Respiratory Panel (PCR) - Final D/C Instructions DC O2, CPAP, BIPAP Needs Home O2 Discharge instructions: No Meaningful Use Info Meaningful Use Meaningful Use Diagnoses (Choose all that apply): None applicable Discharge Plan Admission Admit Date/Time: 02/24/25 22:29 Attending Provider: Jameel Herrera Primary Care Provider: Isaiah Han Consulting Providers: Feli Madden; Damian Horner; Jameel Herrera; Jp Hinson; Claudia Carnes; Columba Vale; Anita Yanez; Cameron Giron; An Steinberg; Rajinder Rdz; Blayne Jett; Alban Fuentes; James Leiva; Cameron Marie; Joey Howe; Judah Cruz; Jair Garcia; Thuy Perez CARB[employer] PAPER COATING SUPERVISOR; Zhao Gilliland; Lucina Gu Discharge Orders/Prescriptions Prescriptions: New acetaminophen 325 mg Tablet 650 mg PO Q4H PRN PRN (Reason: Fever, pain 1-03/15) Qty: 0 0RF sennosides-docusate sodium [Stimulant Laxative Plus] 8.6-50 mg Tablet 2 tab PO BID PRN PRN (Reason: Constipation) Qty: 0 0RF pantoprazole 40 mg Tablet,Delayed Release (Dr/Ec) 40 mg PO BID Qty: 0 0RF furosemide [Lasix] 40 mg tablet 40 mg PO DAILY PRN (Reason: leg swelling) 30 Days Qty: 30 0RF Continued terazosin 5 MG capsule 5 mg PO QPM Sergeiacidliliane elliott-B.bif-S.therm 175 mg Capsule 1 cap PO DAILY Rx Instructions: Pjug-bqx-ovxskhf for 1 week. A Thru Z Men's Ultimate 8 mg iron- 200 mcg-600 mcg tablet 1 tab PO DAILY Discontinued amlodipine 10 MG tablet 10 mg PO DAILY lisinopril 40 MG tablet 40 mg PO DAILY ciprofloxacin HCl [Cipro] 500 mg tablet 500 mg PO BID 10 Days Qty: 20 0RF Referrals / Follow Up: Isaiha Han MD [Primary Care Provider, Family Practice] Darryn Underwood DO [Med Staff - Active Staff, Pulmonary Medicine] - Within 1 Month An Steinberg MD [Med Staff - Consulting, Nephrology] - Within 2 Weeks Zhao Gilliland MD [Med Staff - Active Staff, Urology] - Within 1 Month Jp Hinson DO [Med Staff - Active Staff, Gastroenterology] - Within 1 Month Chris,Thuy CARB[employer] PAPER COATING SUPERVISOR, [employer] P[employer]ATING SUPERVISOR-C [Med Staff - Adv Practice Prof, Oncology] - Within 1 Month Disposition Disposition (needs filled in before D/C Order can be placed): Nursing Home Facility Charges/Coding Visit Charges Inpatient E&M: 30087 Disch Hosp >30min
--- NOTE | 2025-03-12 13:17 | CASEMGMT ---
Patient has order to discharge to [facility] for skilled LOC. LA IGRON updated Chana in TCU that patient will be discharging today and patient is able to be accepted today. LA GIRON faxed discharge paper work to TCU. LA GIRON updated patient and that patient has approval and order to discharge to TCU today. Patient and had no further questions or concerns.
--- NOTE | 2025-03-12 13:32 | PHA.DC_ITS ---
Pharmacy [place] Med Reconciliation Pharmacy Service has performed discharge medication reconciliation for this patient. The patient's discharge medication list was reviewed for discrepancies and discrepancies were resolved. Medications at Discharge Home Medications terazosin 5 mg capsule 5 mg PO QPM BLOOD PRESSURE 12/08/18 multivit,Ca,min-iron 8 mg-folic acid 200 mcg-lycopene 600 mcg tablet (A Thru Z Men's Ultimate) 1 tab PO DAILY SUPPLEMENT 11/04/23 L.acidophil,salivari-Bifido bifidum-Strep thermoph 175 mg capsule 1 cap PO DAILY Bowel health 02/24/25 acetaminophen 325 mg tablet 650 mg (2 x 325 mg) PO Q4H PRN PRN Fever, pain 1- 03/15 #0 tabs 03/12/25 furosemide 40 mg tablet (Lasix) 40 mg PO DAILY PRN leg swelling 1 month #30 tabs 03/12/25 pantoprazole 40 mg tablet,delayed release 40 mg PO BID #0 tabs 03/12/25 sennosides 8.6 mg-docusate sodium 50 mg tablet (Stimulant Laxative Plus) 2 tab PO BID PRN PRN Constipation #0 tabs 03/12/25
[2025-03-12 15:08] VITALS: BP 128/84; PULSE 72; RESP 16; TEMP 36.3; O2SAT 97
--- NOTE | 2025-03-12 15:39 | NURSING ---
Central line pulled from right groin catheter intact. Applied a gauze with vaseline held pressure for 5 minutes no bleeding or swelling noted at this time.
[2025-03-12 15:49] VITALS: PULSE 73
== END 2025-03-12 16:24 | DRG 698 ==
LOC: ED 22:33 → PCU 23:00 → ICU 03-05 09:52 → PCU 03-08 17:10
PROVIDERS: Internal Medicine; Internal Medicine Critical Care Medicine; Internal Medicine Gastroenterology; Nurse Practitioner Adult Health; Student in an Organized Health Care Education/Training Program; Admitting Provider Family Medicine; Emergency Provider Emergency Medicine; PCP Family Medicine; Visit Provider Internal Medicine
PROC: 0DJ08ZZ Inspection of Upper Intestinal Tract, Via Natural or Artificial Opening Endoscopic (ICD-10-PCS; CPT 43235; principal; 2025-03-05 10:10)
DX: T83.511A Infection and inflammatory reaction due to indwelling urethral catheter, initial encounter (principal); G93.41 Metabolic encephalopathy; J96.01 Acute respiratory failure with hypoxia; R57.8 Other shock; N17.0 Acute kidney failure with tubular necrosis; D61.811 Other drug-induced pancytopenia; K26.4 Chronic or unspecified duodenal ulcer with hemorrhage; N17.9 Acute kidney failure, unspecified; E87.20 Acidosis, unspecified; D62 Acute posthemorrhagic anemia; E87.1 Hypo-osmolality and hyponatremia; N18.9 Chronic kidney disease, unspecified; I12.9 Hypertensive chronic kidney disease with stage 1 through stage 4 chronic kidney disease, or unspecified chronic kidney disease; D63.8 Anemia in other chronic diseases classified elsewhere; K25.9 Gastric ulcer, unspecified as acute or chronic, without hemorrhage or perforation; D72.10 Eosinophilia, unspecified; K12.1 Other forms of stomatitis; B95.2 Enterococcus as the cause of diseases classified elsewhere; N39.0 Urinary tract infection, site not specified; T36.1X5A Adverse effect of cephalosporins and other beta-lactam antibiotics, initial encounter; N14.19 Nephropathy induced by other drugs, medicaments and biological substances; D69.6 Thrombocytopenia, unspecified; Z79.899 Other long term (current) drug therapy; Z86.73 Personal history of transient ischemic attack (TIA), and cerebral infarction without residual deficits; X58.XXXA Exposure to other specified factors, initial encounter
CPT/HCPCS: 31500; 31720; 36415; 36600; 70450; 71045; 71250; 76770; 80048; 80053; 80202; 82274; 82550; 82570; 82728; 82803; 82962; 83010; 83520; 83540; 83550; 83605; 83615; 83735; 84300; 84478; 85014; 85018; 85025; 85379; 85384; 85610; 85730; 86037; 86160; 86850; 86900; 86901; 86965; 87040; 87070; 87077; 87205; 87633; 92526; 92610; 93005; 94002; 94003; 94640; 94660; 94668; 97110; 97116; 97162; 97166; 97530; 97535; 97802; 97803; 99252; 99285; J2185; P9016; P9035; A4216; G0463; J0612; J0744; J1938; P9017

== ENCOUNTER 2025-03-12 16:32 | Inpatient (IN) | payer MEDICARE, OTHER, SELFPAY ==
[2025-03-12 16:42] VITALS: BP 96/71; PULSE 68; RESP 17; TEMP 36.3; O2SAT 97
[2025-03-12 16:52] VITALS: BMI 30.3
[2025-03-12 17:24] VITALS: BMI 30.4
--- NOTE | 2025-03-12 18:12 | NURSING ---
Spoke with family and patient regarding code status. Would like to remain a full code.
--- NOTE | 2025-03-12 18:54 | PCM.HP.STD ---
HPI - General General Date of Admission: 03/12/25 Date of Service: 03/12/25 Chief Complaint: Here for rehabilitation. HPI Narrative BARBARA PEÑA, is a 79 Male who presents with followin02/24/2025 [facility] ED Tired, sweating profusely, history of prostate cancer s/p prostatectomy 13 years ago, history of suprapubic catheter. Confused. History of sepsis, urinary tract infection, urine cloudy. Concern for UTI. Viral swab negative, Chest X-ray negative. Ceftriaxone for UTI, urine culture sent. Heart Rate 120, shaking chills. 02/24/2025 Admit [facility]. Meropenem, Vancomycin for complicated UTI, urine culture pending. 02/25/2025 Feeling better. Meropenem, Vancomycin for complicated UTI. 02/26/2025 Fever, chills. Urine culture GNR, mixed GPO, continue Meropenem, Vancomycin. 02/27/2025 Creatinine 1.26 to 1.72. Stop Vancomycin, GPO not true pathogen. Feeling okay. Urine culture polymicrobial. Continue Meropenem, add Ceftriaxone, consult ID. Creatinine 2.49, Vancomycin stopped, Ketorolac stopped. Check urine studies, renal ultrasound, consult Nephrology. Eosinophilia 2/2 Meropenem. Hold Lovenox 2/2 thrombocytopenia. 03/01/2025 Confused. Cipro, Zosyn for complicated UTI. Creatinine 3.32, Renal following. 03/02/2025 More alert, lips irritated. Creatinine 3.96, renal ultrasound negative, FENa 0.26%. Prerenal versus AIN. 03/03/2025 Feeling well, lips less swollen. Cipro, Zosyn for complicated UTI. Creatinine 4.36, Solu-medrol 125mg bid, 1 liter LR for acute kidney injury per Renal. Eosinophilia improved, Platelets 52. 03/04/2025 Creatinine 4.48. Cipro, Zosyn for complicated UTI. Making urine, no dialysis recommended, continue Solu-medrol bid for acute kidney injury. Hemoglobin 7.6. 03/05/2025 Dr. Sravan ZABALA spurting duodenal ulcer injected, clipped. 03/06/2025 Intubated, sedated. Hemoglobin 5.7, Transfuse 2 units PRBC. Pantoprazole drip, Levophed. 03/07/2025 Extubated, room air, off pressors. Pantoprazole IV for duodenal ulcer. Hemoglobin 8. Creatinine 4.11. 03/08/2025 Frail, weak, Creatinine 4.32. Hemoglobin 9.1, Platelet 90. 03/09/2025 ST started diet. Hemoglobin 7.7. Finished Cipro, Zosyn for complicated UTI. Continue Solu-medrol for acute kidney injury. Replace calcium 6.7. 03/10/2025 Weak, Hemoglobin 7.2, Creatinine 3.8. Completed steroids for acute kidney injury 2/2 AIN. No kidney biopsy 2/2 low platelets. 03/11/2025 Creatinine 3.6. PT/OT/CM. Dr. Gilliland changed suprapubic catheter. 03/12/2025 Admit to TCU with debility, here for rehabilitation, strengthening, prior to discharge home with . 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 Anemia Anxiety and depression Hypertension CKD (chronic kidney disease) Hearing loss, left Hearing loss, right Chronic indwelling Worthy catheter TIA (transient ischemic attack) Chronic radiation cystitis Worthy catheter in place Wears glasses Arthritis Non-smoker Home Medications ?Medication ?Instructions ?Recorded ?Last Taken ?Type terazosin 5 mg capsule 5 mg PO QPM BLOOD PRESSURE 12/08/18 03/04/25 History multivit,Ca,min-iron 8 mg-folic 1 tab PO DAILY SUPPLEMENT 11/04/23 02/24/25 History acid 200 mcg-lycopene 600 mcg tablet (A [employer]) L.acidophil,salivari-Bifido 1 cap PO DAILY Bowel health 02/24/25 02/24/25 History bifidum-Strep thermoph 175 mg capsule acetaminophen 325 mg tablet 650 mg (2 x 325 mg) PO Q4H PRN PRN 03/12/25 03/12/25 Rx pain 1-03/15 #0 tabs furosemide 40 mg tablet (Lasix) 40 mg PO DAILY PRN leg swelling 1 03/12/25 Unknown Rx month #30 tabs pantoprazole 40 mg tablet,delayed 40 mg PO BID stomach #0 tabs 03/12/25 03/12/25 Rx release sennosides 8.6 mg-docusate sodium 2 tab PO BID PRN PRN Constipation 03/12/25 Unknown Rx 50 mg tablet (Stimulant Laxative #0 tabs Plus) Allergy/AdvReac Type Severity Reaction Status Date / Time meropenem Allergy Severe All blood Verified 03/03/25 09:09 cells low losartan Allergy Mild Rash Verified 02/24/25 23:38 Sulfa (Sulfonamide Allergy Hives Verified 02/24/25 23:38 Antibiotics) atenolol AdvReac Mild WEAKNESS Verified 02/24/25 23:38 hydrochlorothiazide AdvReac Mild UNKNOWN Verified 02/24/25 23:38 indomethacin (From Indocin) AdvReac Mild GI upset Verified 02/24/25 23:38 Family History Mother , secondary to complications with c-difficile colitis. No medical history per son. No problems noted. Father , in MVA. No medical history per son. No problems noted. Surgical History (Updated 03/12/25 @ 19:[address] Tim Abrams MD) History of left knee replacement Hx of radical prostatectomy Hx of cystoscopy Hx of colonoscopy Social History household members: spouse housing: house Smoking Status: Never smoker alcohol intake: never substance use type: does not use ROS Constitutional Constitutional: Denies chills, fever(s) or weight gain ENT HEENT: Denies headache(s), nasal congestion or nasal discharge Cardiovascular Cardiovascular: Denies chest pain or palpitations Respiratory/Chest Respiratory/Chest: Denies cough, excessive phlegm production or shortness of breath with exertion Gastrointestinal Gastrointestinal: Denies abdominal pain, nausea or vomiting Genitourinary Genitourinary: Denies dysuria Musculoskeletal Musculoskeletal: Denies joint pain or joint swelling Integumentary Integumentary: Denies rash or wounds Neurologic Neurologic: Denies focal weakness, numbness or tingling Psychiatric Psychiatric: Denies anxiety, auditory hallucinations, depression, homicidal ideation or suicidal ideation Vital Signs Vital Signs Vital Signs: 03/12/25 16:42 03/12/25 17:05 Temperature 97.3 F L Temperature Source Temporal Pulse Rate 68 Pulse Rhythm Regular Pulse Strength Normal (2+) Respiratory Rate 17 Respiratory Effort Normal Non-Labored Respiratory Depth Normal Respiratory Pattern Normal Blood Pressure 96/71 Blood Pressure Mean 79 Blood Pressure Source Monitor Blood Pressure Position Semi-Fowlers Blood Pressure Location Right Arm Pulse Ox 97 Oxygen Delivery Method Room Air Room Air Weight Weight: 96.162 kg Body Mass Index (BMI) 30.4 Physical Exam Const alert General Appearance: cooperative HEENT normocephalic Eyes PERRL and EOMs intact bilaterally Neck supple, no JVD and no carotid bruits Resp normal respiratory effort, normal air movement and clear to auscultation bilaterally Cardio regular rate and regular rhythm GI normal to inspection, nondistended, normoactive bowel sounds, non-tender and non-distended Bladder / Kidney Exam: catheter in place suprapubic Extremity normal capillary refill General Extremity: Negative for edema Skin no rashes or lesions noted General Skin Exam: no breakdown Psych affect normal Appearance: appropriate Assessment & Plan Assessment/Plan (1) Debility: (2) Complicated urinary tract infection: (3) CHRIS (acute kidney injury): (4) Acute interstitial nephritis: (5) Acute respiratory failure with hypoxia: (6) Duodenal ulcer: (7) Acute blood loss anemia: (8) Eosinophilia: (9) Thrombocytopenia: (10) Hypocalcemia: (11) History of prostate cancer: (12) History of suprapubic catheter: (13) Essential (primary) hypertension: (14) BPH (benign prostatic hyperplasia): PLAN: Plan 79 year old male with past medical history significant for suprapubic catheter, hospitalized for complicated urinary tract infection, acute kidney injury 2/2 acute interstitial nephritis, complicated by acute respiratory failure requiring intubation, acute blood loss anemia 2/2 duodenal ulcer, eosinophilia, thrombocytopenia, hypocalcemia, encephalopathy, admitted to TCU with debility, here for rehabilitation, strengthening, prior to discharge home with . Debility - PT/OT. Pain - Tylenol 650mg q4 prn. Bowel - Senna/colace 2 tablets bid. Adult immunization - Administer pneumonia vaccine, covid vaccine, flu vaccine as appropriate. DVT prophylaxis - Hold, UGIB, low platelets. BPH - Doxazosin 4mg daily. Edema - Furosemide 40mg daily. GI prophylaxis - Lactobacillus 1 capsule daily. Nutrition - MVI 1 tablet daily. Duodenal ulcer - Pantoprazole 40mg bid. Acute kidney injury 2/2 AIN - consult Nephrology to follow.
--- NOTE | 2025-03-12 20:23 | NURSING ---
Addendum entered by Sekou Beltran 03/12/25 20:33: Notified Dr. Abrams via telephone of contraindication with Doxepin and pt history of bladder neck contracture. Per Dr. Abrams, ok to give medication. Original Note: Notified Dr. Abrams via secure text message of pt request to have something to help me sleep. I feel like I am not getting enough rest at night. I was taking melatonin on the other side of the hospital for 2 nights but I don't feel like it helped me much. I got maybe an hour of sleep when I took melatonin. New order received via secure text message from Dr. Abrams for Doxepin 10 mg PO QHS. Order verified via secure message to Dr. Abrams. Updated pt on changes to plan of care. Pt appreciative.
[2025-03-12 21:50] VITALS: BP 160/70; PULSE 77
[2025-03-12] MEDS: Doxepin Hydrochloride 10 MG Capsule PO (21:53)
[2025-03-12] MEDS: 0.9% Saline Lock 10 ML Syringe IV (21:53)
[2025-03-13 01:45] VITALS: PULSE 76; RESP 18; O2SAT 95
--- NOTE | 2025-03-13 04:06 | NURSING ---
Written communication left for Dr. Abrams regarding pt complaints of shortness of breath and congestion. Bilateral lungs clear to auscultation anterior/posterior. O2 saturation 95% on room air. Respirations 16. Raised HOB to High Kimball's position for comfort. Pt states shortness of breath improved with repositioning.
[2025-03-13 07:25] LABS: Hematocrit 22.8 % (40-54); Hemoglobin 7.6 g/dL (13.0-16.5); Immature Granulocytes Count 0.040 X10^3/uL (0.0-0.0); Mean Corp Hgb Conc 33.3 g/dL (32-36); Mean Corpuscular Volume 85.7 fL (80-94); Mean Platelet Vol. 11.9 fl (6.2-12.0); NRBC Flagged by Analyzer 0 % (0-5); POSITIVE DIFFERENTIAL YES; Platelet Count 170 K/mm3 (150-450); RBC Distribution Width CV 15.6 % (11.6-14.6); RBC Distribution Width SD 48.1 fl (35.1-43.9); Red Blood Count 2.66 M/mm3 (4.6-6.2); White Blood Count 4.0 K/mm3 (4.4-11.0)
[2025-03-13 08:09] VITALS: BP 147/79; PULSE 85; RESP 18; TEMP 36.7; O2SAT 97
[2025-03-13] MEDS: Lactobacillis Acidophilus 1 CAP PO (08:11)
--- NOTE | 2025-03-13 08:18 | NURSING ---
pt going to radiology via bed
--- NOTE | 2025-03-13 08:25 | RAD_ITS ---
PROCEDURE: RAD/Chest PA and Lateral
[2025-03-13 08:26] LABS: Anion Gap 11 (5-15); BUN 50 mg/dL (4-19); BUN/Creat Ratio 15.1 RATIO (10-20); Calcium,Total 7.0 mg/dL (7.6-11.0); Carbon Dioxide 21.3 mmol/L (21.0-32.0); Chloride 103 mmol/L (98-108); Estimated Creatinine Clearance 21.68 ml/min (50-250); Glucose 97 mg/dL (70-99); Potassium 4.0 mmol/L (3.3-5.1)
--- NOTE | 2025-03-13 08:45 | NURSING ---
pt returned to unit
--- NOTE | 2025-03-13 08:48 | PCM.PN.DRR ---
Documented by User: Neida Parra 03/13/25 09:26 TCU RX Drug Regimen Review Subjective/Objective Subjective/Objective Subjective: TCU Admission. 79 YOM presented to ER with fatigue, profuse sweating. Hospitalized for complicated urinary tract infection, acute kidney injury 2/2 acute interstitial nephritis, complicated by acute respiratory failure requiring intubation, acute blood loss anemia 2/2 duodenal ulcer, eosinophilia, thrombocytopenia, hypocalcemia, encephalopathy. Admitted to TCU with debility for strengthening and rehabilitation. Objective: Allergies meropenem Allergy (Severe, Verified 03/03/25 09:09) All blood cells low Acute interstitial nephritis. losartan Allergy (Mild, Verified 02/24/25 23:38) Rash Sulfa (Sulfonamide Antibiotics) Allergy (Verified 02/24/25 23:38) Hives atenolol Adverse Reaction (Mild, Verified 02/24/25 23:38) WEAKNESS hydrochlorothiazide Adverse Reaction (Mild, Verified 02/24/25 23:38) UNKNOWN Pt states did not tolerate indomethacin (From Indocin) Adverse Reaction (Mild, Verified 02/24/25 23:38) GI upset Current Medications Generic Name Dose Route Start Last Admin Trade Name Freq PRN Reason Stop Dose Admin Acetaminophen 650 mg 03/12/25 16:49 Acetaminophen 325 Mg Tablet PO Q4H PRN PRN pain 1-03/15 Doxazosin Mesylate 4 mg 03/12/25 21:00 03/12/25 21:53 Doxazosin 4 Mg Tablet PO 4 mg QPM CYNTHIA Administration Doxepin HCl 10 mg 03/12/25 22:00 03/12/25 21:53 Doxepin Hydrochloride 10 Mg Capsule PO 10 mg QHS CYNTHIA Administration Furosemide 40 mg 03/12/25 16:49 Furosemide 40 Mg Tablet PO DAILY PRN leg swelling Protocol Multivitamins/Minerals 1 tablet 03/13/25 08:00 03/13/25 08:11 Multivitamins,Ther W-Minerals Tablet PO 1 tablet DAILYCM CYNTHIA Administration Pantoprazole Sodium 40 mg 03/12/25 22:00 03/13/25 08:11 Pantoprazole Sodium 40 Mg Tablet PO 40 mg BID CYNTHIA Administration Senna/Docusate Sodium 2 tablet 03/12/25 16:49 Senna/Docusate Sodium 1 Tablet PO BID PRN PRN CONSTIPATION Sodium Chloride 10 - 40 ml 03/12/25 16:43 03/12/25 21:53 0.9% Saline Lock 10 Ml Syringe IV 20 ml UD PRN Administration SALINE FLUSH Tuberculin PPD 0.1 ml 03/13/25 10:00 Tuberculin,Purif.Prot.Deriv. 50 Tu/Ml Vial ID 03/13/25 10:01 X1 ONE Tuberculin PPD 0.1 ml 03/20/25 10:00 Tuberculin,Purif.Prot.Deriv. 50 Tu/Ml Vial ID 03/20/25 10:01 X1 ONE Problem List BPH (benign prostatic hyperplasia) (Acute) Essential (primary) hypertension (Acute) History of suprapubic catheter (Acute) History of prostate cancer (Acute) Hypocalcemia (Acute) Eosinophilia (Acute) Acute blood loss anemia (Acute) Duodenal ulcer (Acute) Acute respiratory failure with hypoxia (Acute) Acute interstitial nephritis (Acute) Complicated urinary tract infection (Acute) Debility (Acute) Thrombocytopenia (Acute) CHRIS (acute kidney injury) (Acute) Vital Signs Temp Pulse Resp BP Pulse Ox O2 Del Method 98.0 F 85 18 147/79 H 97 Room Air 03/13/25 08:09 03/13/25 08:09 03/13/25 08:09 03/13/25 08:09 03/13/25 08:09 03/13/25 08:09 Oxygen Delivery Method Room Air Weight: 96.162 kg Body Mass Index (BMI) 30.4 Sodium 135 mmol/L (133-145) 03/13/25 06:57 Potassium 4.0 mmol/L (3.3-5.1) 03/13/25 06:57 Chloride 103 mmol/L (98-108) 03/13/25 06:57 Carbon Dioxide 21.3 mmol/L (21.0-32.0) 03/13/25 06:57 Anion Gap 11 (5-15) 03/13/25 06:57 BUN 50 mg/dL (4-19) H 03/13/25 06:57 Creatinine 3.32 mg/dL (0.70-1.20) H 03/13/25 06:57 Est GFR (MDRD) Non-Af 18 (>60) L 03/13/25 06:57 BUN/Creatinine Ratio 15.1 RATIO (10-20) 03/13/25 06:57 Glucose 97 mg/dL (70-99) 03/13/25 06:57 Assessment/Plan: 1. Pain: acetaminophen 650mg PO Q4H PRN pain 1-10. No PRN doses have been given. Please continue to monitor for increased pain and PRN usage. 2. Bowel: senna/docusate 2T PO BID PRN constipation. No PRN doses have been given. Please continue to monitor for constipation and PRN usage. Last documented bowel movement was 03/12/25. 3. BPH: doxazosin 4mg PO daily. Please continue to monitor for S/S of BPH and BP (range 96/71-160/70). 4. Edema: furosemide 40mg PO daily PRN leg swelling. No PRN doses have been given. Please continue to monitor for edema and PRN usage. 5. Duodenal ulcer: pantoprazole 40mg PO BID. Monitor for diarrhea (consider possibility of C. diff if develops). Consider serum magnesium level and B12 level with long-term use if indicated. If clinically appropriate, consider dose reduction/weaning of medication due to oysterman risks of C. diff and fractures (Beers). 6. GI prophylaxis/nutrition: lactobacillus 1C PO daily and multivitamin with minerals 1T PO daily. Please continue to monitor. Assessment/Plan for indications treated with psychotropic medications: 1. Insomnia: doxepin 10mg PO QHS. Medication just started, GDR not appropriate. Please continue to monitor for excessive daytime drowsiness, anticholinergic side effects (BEERs), dementia/delirium (BEERs), falls/fractures (BEERs), sodium (last 135mmol/L). Monitor for efficacy including resident symptoms, behaviors and indications of distress. Monitor for tolerability including mental status, cognition, excessive sleepiness, withdrawal or decreased participation in activities and decline in physical functioning. Maximize use of nonpharmacologic/behavioral interventions to facilitate dose reduction or discontinuation as appropriate. Please evaluate the appropriateness of GDR unless contraindicated. If appropriate, GDR should be attempted in 2 separate quarters within the first year of use or admission to TCU. If GDR attempted, monitor resident symptoms/behaviors. Medical chart and medication regimen reviewed. The following medication irregularities or issues were identified: None Documented by User: Dr. Tim Abrams MD 03/13/25 08:56 TCU RX Drug Regimen Review Date Date of Note: 03/13/25 Provider Comments Provider responsibility Provider Comments to Recommendations by Pharmacy Agree
--- NOTE | 2025-03-13 10:01 | NURSING ---
Slurry Control Tender Note; Activity Asset: Mykel Hilario is independent in his choice of daily activities. At this time he prefers to rest in his room due to not felling well and on droplet iso. His will visit daily and bring him items he may need from home. He mainly watches tv or is out riding his tric motorcycle w/his friends and . He welcomes the daily sales audit clerk and therapy dog when available Staff will remind him of weekly activities and respect his right to say no.
--- NOTE | 2025-03-13 11:23 | NURSING ---
call placed to nephrology office for consult
[2025-03-13] MEDS: Tuberculin,Purif.prot.deriv. 50 TU/ML Vial 0.1 ML ID (11:44)
[2025-03-13] MEDS: 0.9% Saline Lock 10 ML Syringe IV (11:47)
--- NOTE | 2025-03-13 20:15 | NURSING ---
pt states has not had any sleep in the last 3 days would like medications early.
[2025-03-13] MEDS: Doxepin Hydrochloride 10 MG Capsule PO (20:20)
[2025-03-13 20:23] VITALS: BP 146/72; PULSE 73; O2SAT 94
[2025-03-14] MEDS: Lactobacillis Acidophilus 1 CAP PO (09:41)
[2025-03-14 09:49] VITALS: PULSE 70; RESP 16; O2SAT 95
--- NOTE | 2025-03-14 14:15 | CASEMGMT ---
Social Work SW has attempted twice to meet with patient to complete initial assessment. Mimi chan SCREW MACHINE SET UP OPERATOR TOOL MANAGER BABY
--- NOTE | 2025-03-14 15:47 | CASEMGMT ---
Social Work SW met with patient to complete initial assessment. Introduced self and role. present and pt granted permission for to remain. Verified/updates contacts. Patient confirmed code status as full code. Educated to Medicare benefit and copay coverage. Pt's goal is to return home with . SW will continue to follow for DC planning. Mimi Hoyt MSW SUPERVISOR HEADING
[2025-03-14 15:55] VITALS: BP 136/70; PULSE 70; RESP 17; TEMP 36.6; O2SAT 95
--- NOTE | 2025-03-14 20:10 | NURSING ---
Stool collected for occult blood per order, sent to lab for testing.
[2025-03-14 20:59] VITALS: BP 135/78; PULSE 86
[2025-03-14] MEDS: 0.9% Saline Lock 10 ML Syringe IV (21:02)
[2025-03-14] MEDS: Doxepin Hydrochloride 10 MG Capsule PO (21:12)
[2025-03-15 06:04] VITALS: PULSE 84; O2SAT 97
[2025-03-15 06:09] VITALS: BP 148/87; PULSE 82
--- NOTE | 2025-03-15 06:14 | NURSING ---
PRN Lasix 40mg given per order for edema 2+ pitting in bilateral pedal.
[2025-03-15] MEDS: 0.9% Saline Lock 10 ML Syringe IV (10:02)
[2025-03-15] MEDS: Lactobacillis Acidophilus 1 CAP PO (10:02)
--- NOTE | 2025-03-15 13:57 | CHAPLAIN ---
Type of Pastoral Visit _x__ Initial Visit _x__ Follow-up Visit ___ On-call Visit ___ General Patient Visit ___ Spiritual Assessment ___ Family Conference ___ Bereavement ___ Rapid Response ___ Code Blue ___ Other (describe below) Pastoral Care Referral From _x__ Patient _x__ Family ___ Nurse ___ Physician ___ Merchandise Flow Associate ___ Med Surg Rn ___ Other (describe below) Sacrament/Intervention _x__ Active listening ___ Anointing ___ Zoroastrianism ___ Bereavement ___ Communion ___ Yumi exploration ___ _x__ Life review _x__ Prayer ___ Reconciliation ___ Sacrament of Sick _x__ Supportive presence ___ Wedding ___ Other (describe below) Pastoral Comments patient has been seen in PCU; ICU; and now TCU; is with him as is normal in this case; pt states that he was having a good time in TCU so far but today was not so good As I received difficult news; spouse says that he may need to be transferred out; both are having some difficulty trying to understand what the situation is and how to handle the current unknowns; pt does refer to many positive aspects of his life; pt is asked to focus on the good things and to remember God's offer of peace and healing; pt welcomes a prayer and blessings;
--- NOTE | 2025-03-15 14:39 | NURSING ---
Addendum entered by Julee Valenzuela 03/15/25 14:58: Pt's expresses concern for C-diff, states pt's mother from C-diff complications. Dr. Abrams notified, received order for c-diff testing. In special isolation precautions. waiting on stool sample. Original Note: Pt's reports that pt has been having multiple diarrhea episodes over the past several days. Dr. Abrams notified, received orders for KUB.
--- NOTE | 2025-03-15 14:40 | RAD_ITS ---
PROCEDURE: RAD/Abdomen Single View
[2025-03-15 15:10] LABS: Hematocrit 26.7 % (40-54); Hemoglobin 8.6 g/dL (13.0-16.5)
[2025-03-15 16:00] VITALS: BP 127/73; PULSE 91; RESP 16; TEMP 36.3
--- NOTE | 2025-03-15 19:57 | EX.PCM.CON.G ---
HPI Consult Data Date of Consult: 03/15/25 HPI Narrative Reason for Consultation: Anemia HPI Narrative: BARBARA PEÑA, is a 79-year-old gentleman in the transitional care unit with acute on chronic anemia due to a GI bleed and anemia of chronic disease who is known to GI service. He has a recent hospital background in which he has required multiple packed red blood cell transfusions. He was noted to have a bleeding peptic ulcer on esophagogastroduodenoscopy . He is currently receiving intravenous pantoprazole and is planned for a transition to oral pantoprazole. 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 Anemia Anxiety and depression Hypertension CKD (chronic kidney disease) Hearing loss, left Hearing loss, right Chronic indwelling Worthy catheter TIA (transient ischemic attack) Chronic radiation cystitis Worthy catheter in place Wears glasses Arthritis Non-smoker Home Medications ?Medication ?Instructions ?Recorded ?Last Taken ?Type terazosin 5 mg capsule 5 mg PO QPM BLOOD PRESSURE 12/08/18 03/04/25 History multivit,Ca,min-iron 8 mg-folic 1 tab PO DAILY SUPPLEMENT 11/04/23 02/24/25 History acid 200 mcg-lycopene 600 mcg tablet (A Thru Z Men's Ultimate) L.acidophil,salivari-Bifido 1 cap PO DAILY Bowel health 02/24/25 02/24/25 History bifidum-Strep thermoph 175 mg capsule acetaminophen 325 mg tablet 650 mg (2 x 325 mg) PO Q4H PRN PRN 03/12/25 03/12/25 Rx pain 1-03/15 #0 tabs furosemide 40 mg tablet (Lasix) 40 mg PO DAILY PRN leg swelling 1 03/12/25 Unknown Rx month #30 tabs pantoprazole 40 mg tablet,delayed 40 mg PO BID stomach #0 tabs 03/12/25 03/12/25 Rx release sennosides 8.6 mg-docusate sodium 2 tab PO BID PRN PRN Constipation 03/12/25 Unknown Rx 50 mg tablet (Stimulant Laxative #0 tabs Plus) Allergy/AdvReac Type Severity Reaction Status Date / Time meropenem Allergy Severe All blood Verified 03/03/25 09:09 cells low losartan Allergy Mild Rash Verified 02/24/25 23:38 Sulfa (Sulfonamide Allergy Hives Verified 02/24/25 23:38 Antibiotics) atenolol AdvReac Mild WEAKNESS Verified 02/24/25 23:38 hydrochlorothiazide AdvReac Mild UNKNOWN Verified 02/24/25 23:38 indomethacin (From Indocin) AdvReac Mild GI upset Verified 02/24/25 23:38 Family History Mother , secondary to complications with c-difficile colitis. No medical history per son. No problems noted. Father , in MVA. No medical history per son. No problems noted. Surgical History History of left knee replacement Hx of radical prostatectomy Hx of cystoscopy Hx of colonoscopy Social History household members: spouse housing: house Smoking Status: Never smoker alcohol intake: never substance use type: does not use ROS Constitutional Constitutional: Denies chills, fever(s) or weight gain ENT HEENT: Denies headache(s), nasal congestion or nasal discharge Cardiovascular Cardiovascular: Denies chest pain or palpitations Respiratory/Chest Respiratory/Chest: Denies cough, excessive phlegm production or shortness of breath with exertion Gastrointestinal Gastrointestinal: Denies abdominal pain, nausea or vomiting Genitourinary Genitourinary: Denies dysuria Musculoskeletal Musculoskeletal: Denies joint pain or joint swelling Integumentary Integumentary: Denies rash or wounds Neurologic Neurologic: Denies focal weakness, numbness or tingling Psychiatric Psychiatric: Denies anxiety, auditory hallucinations, depression, homicidal ideation or suicidal ideation Physical Exam Narrative Physical exam General: Alert, Oriented x3, Cooperative. BMI 31.3 kg per square HEENT: Atraumatic, PERRLA, EOMI, Normocephalic. Oral: Bilateral lips superficial ulcer with crust with mild soreness. No oral, gingival or Mucosal Lesions/ Ulcerations Neck: Supple, No JVD, Negative Carotid Bruits Chest wall/Lungs: Air entry diminished in bilateral lung bases. No crepitation/rhonchi Cardiovascular: Regular rate and rhythm, Normal S1,S2, No M/G/R Abdomen: Bowel Sounds Present, Soft, Non Tender, Non-Distended : Suprapubic catheter changed no renal angle tenderness. No suprapubic tenderness. Extremities: Bilateral lower leg pitting edema, Capillary Refill Less than 3 Seconds Skin: No rashes, No breakdown Musculoskeletal: No Tenderness to Palpation of Joints or Extremities Neurological: Cranial nerves II-XII grossly intact, DTR 2+/4. No acute focal neurological deficit. Psych/Mental Status: Normal Affect, Appropriate. Lab / Micro Data 03/15/25 15:03 03/13/25 06:57 Labs: Laboratory Results - last 24 hr 03/15/25 15:03: Hgb 8.6 L, Hct 26.7 L Micro: Microbiology 03/14/25 20:02 Stool Stool Occult Blood (LISANDRA) - Final Occult Blood Positive Imaging Radiology Impression KUB X-Ray 03/15/25 14:40 IMPRESSION: Normal bowel pattern. Bibasilar pleural effusions. Reading Location: [facility] Assessment & Plan Assessment/Plan (1) Duodenal ulcer: (2) Acute blood loss anemia: PLAN: Assessment? Problem 1: Acute on Chronic Anemia? This is a 79-year-old gentleman with a history of acute on chronic anemia due to GI bleeding and anemia of chronic disease. The patient has a known source of GI bleeding from a peptic ulcer identified on EGD. Despite recent transfusion, his Hgb has demonstrated a downward trend, requiring a new consultation.? Problem 2: Iron Studies Interpretation? The elevated ferritin level (>1300is greater than 1300 ng/mL) is a hurd finding. While typically indicative of iron overload, it can be falsely elevated in the setting of inflammation, as ferritin is a positive acute phase reactant. Anemia of chronic disease (ACD) is an inflammatory anemia where inflammatory cytokines can cause iron to be sequestered, leading to high ferritin despite an underlying iron deficiency. A normal or high ferritin in the setting of ACD can mask true iron deficiency, which is highly probable given the chronic GI blood loss. The high iron saturation and serum iron could be a misleading result due to recent PRBC transfusions, which temporarily increase serum iron. The current iron studies are not reliable indicators of true iron stores and do not rule out functional iron deficiency Therapeutic plan: EGD and colonoscopy on 03/18/2025 if his hemoglobin stays stable. Otherwise we will have to do it over the weekend. Charges/Coding Visit Charges Inpatient E&M: 81876 [facility] Init L2
[2025-03-15 22:06] VITALS: BP 120/67; PULSE 87
[2025-03-15] MEDS: Doxepin Hydrochloride 10 MG Capsule PO (22:08)
--- NOTE | 2025-03-15 23:09 | NURSING ---
Updated Dr. Abrams via telephone of c diff antigen and toxin results. New order for Vancomycin 125 mg PO 4x day for 10 days. Order verified via readback. Also updated Dr. Abrams of midline to R upper arm observed to be out of place with catheter intact upon assessment. Clarified that midline is not being used to give medications at this time. Per Dr. Abrams, ok to leave midline out.
[2025-03-15] MEDS: Vancomycin 125 MG/5 ML Susp PO.SYRINGE PO (23:28)
[2025-03-16 05:42] VITALS: BMI 28.5
[2025-03-16 06:06] LABS: Hematocrit 23.0 % (40-54); Hemoglobin 7.5 g/dL (13.0-16.5)
[2025-03-16] MEDS: Vancomycin 125 MG/5 ML Susp PO.SYRINGE PO ×4 (06:07→23:45)
[2025-03-16 06:22] LABS: Iron 19 ug/dL (65-175); Iron Binding Capacity,Unsat 158 ug/dL (228-428)
[2025-03-16 06:24] LABS: Iron Binding Capacity,Total 177 ug/dL (250-450)
[2025-03-16] MEDS: Lactobacillis Acidophilus 1 CAP PO ×2 (07:58→21:55)
[2025-03-16 08:03] VITALS: BP 135/76; PULSE 83; RESP 17; TEMP 37.2; O2SAT 96
--- NOTE | 2025-03-16 12:10 | NURSING ---
Updated Dr Hinson on patient's decreased hgb, cdiff positive results, and blood transfusion orders. Per Dr. Hinson will reschedule EGD for Monday 03/19. No colonoscopy at this time. Procedure orders adjust to reflect changes.
--- NOTE | 2025-03-16 17:50 | NURSING ---
Addendum entered by Janae Lagunas 03/16/25 17:54: Updated Dr Abrams via T/C. NEW ORDERS: CBC w/ diff, BMP, UA C/S, COVID, resp. panel, and blood cx x2. VORB. Original Note: Patient called out to nursing. Patient c/o chills, shivering, unable to get warm, and racing heart rate. Warmed blankets provided. VS: 159/92 HR 76 99% RA temp 99.5 RR 18. Patient denies chest pain OR SOB. No cough, nausea, vomiting, no BM today. Denies any pain. Will update .
[2025-03-16 18:45] LABS: Hematocrit 25.2 % (40-54); Hemoglobin 8.2 g/dL (13.0-16.5); Immature Granulocytes Count 0.030 X10^3/uL (0.0-0.0); Mean Corp Hgb Conc 32.5 g/dL (32-36); Mean Corpuscular Volume 86.6 fL (80-94); Mean Platelet Vol. 10.5 fl (6.2-12.0); NRBC Flagged by Analyzer 0 % (0-5); POSITIVE DIFFERENTIAL YES; Platelet Count 255 K/mm3 (150-450); RBC Distribution Width CV 15.6 % (11.6-14.6); RBC Distribution Width SD 49.5 fl (35.1-43.9); Red Blood Count 2.91 M/mm3 (4.6-6.2); White Blood Count 2.8 K/mm3 (4.4-11.0)
[2025-03-16 18:48] LABS: Mucous, Urine 0 SEEN /hpf (<or=2+)
[2025-03-16 18:49] LABS: Color, Urine Yellow (Yellow); Glucose, Dipstick Normal (Normal); Ketone-Dipstick Negative (Negative); Leukocyte Esterase-Dipstick 500 /ul (Negative); Nitrite-Dipstick Negative (Negative); Occult Blood-Urine 25 /ul (Negative); Protein-Dipstick 15 mg/dl (Negative); Specific Gravity, Urine 1.005 (1.002-1.030); Urine Bilirubin Dipstick Negative (Negative)
[2025-03-16 18:51] LABS: Differential Indicated SCAN CRITERIA MET
[2025-03-16 19:06] LABS: Anion Gap 10 (5-15); BUN 38 mg/dL (4-19); BUN/Creat Ratio 10.4 RATIO (10-20); Calcium,Total 7.8 mg/dL (7.6-11.0); Carbon Dioxide 21.2 mmol/L (21.0-32.0); Chloride 102 mmol/L (98-108); Estimated Creatinine Clearance 18.95 ml/min (50-250); Glucose 93 mg/dL (70-99); Potassium 4.2 mmol/L (3.3-5.1)
[2025-03-16 19:08] LABS: Red Blood Cells-Urine 0-5 SEEN /hpf (0-5); Squamous Epithelial Cells - UA 0-5 SEEN /hpf (0-5); Yeast-Urine 1+ /hpf (None Seen)
[2025-03-16 19:48] LABS: Differential Comment SCANNED
[2025-03-16] MEDS: Doxepin Hydrochloride 10 MG Capsule PO (21:55)
[2025-03-16] MEDS: 0.9% Saline Lock 10 ML Syringe IV (21:55)
[2025-03-16] MEDS: Piperacil/Tazobactam 3.375 GM in 0.9% Normal Saline (50mL MB+) 50 ML IV (21:56)
[2025-03-16] MEDS: 0.9% Normal Saline (250mL Bag) 250 ML 15 ML IV (21:56)
[2025-03-16 22:00] VITALS: BP 128/64; PULSE 64; RESP 16; RESP 18; O2SAT 95
[2025-03-17] MEDS: Vancomycin 125 MG/5 ML Susp PO.SYRINGE PO ×4 (05:43→23:16)
[2025-03-17] MEDS: Piperacil/Tazobactam 3.375 GM in 0.9% Normal Saline (50mL MB+) 50 ML IV ×3 (05:43→22:12)
[2025-03-17 06:21] LABS: Hematocrit 23.6 % (40-54); Hemoglobin 8.0 g/dL (13.0-16.5)
[2025-03-17] MEDS: Lactobacillis Acidophilus 1 CAP PO ×2 (09:36→22:13)
[2025-03-17 09:52] VITALS: BP 106/52; PULSE 74; RESP 18; TEMP 37.1; O2SAT 94
[2025-03-17 14:25] VITALS: BMI 29.0
[2025-03-17] MEDS: 0.9% Saline Lock 10 ML Syringe IV (14:34)
[2025-03-17] MEDS: Doxepin Hydrochloride 10 MG Capsule PO (22:13)
[2025-03-18 06:00] VITALS: BMI 27.9
[2025-03-18] MEDS: Piperacil/Tazobactam 3.375 GM in 0.9% Normal Saline (50mL MB+) 50 ML IV ×2 (06:03→13:47)
[2025-03-18] MEDS: Vancomycin 125 MG/5 ML Susp PO.SYRINGE PO ×4 (06:03→23:02)
[2025-03-18] MEDS: 0.9% Normal Saline (250mL Bag) 250 ML 15 ML IV (06:04)
[2025-03-18 09:11] LABS: Hematocrit 26.9 % (40-54); Hemoglobin 8.6 g/dL (13.0-16.5)
--- NOTE | 2025-03-18 09:16 | NURSING ---
Updated Dr. Abrams on hgb of 8.6 today. Verbal order to cancel transfusion, do H&H tomorrow.
[2025-03-18 10:00] VITALS: O2SAT 96
[2025-03-18] MEDS: Lactobacillis Acidophilus 1 CAP PO ×2 (10:15→21:02)
[2025-03-18 10:23] VITALS: BP 93/58; PULSE 83; RESP 18; TEMP 36.8; O2SAT 98
--- NOTE | 2025-03-18 12:26 | PCM.CONS.R ---
Assessment & Plan Assessment/Plan (1) CHRIS (acute kidney injury): PLAN: Plan This is a 79-year-old male whom we have been following for CHRIS. Baseline creatinine around 1.2 mg/dL range. Patient was admitted to hospital on 02/24 for complicated UTI and renal function was at baseline. Serum creatinine peaked 4.48 on 03/04. There was concern for acute interstitial nephritis related to antibiotics (had been on meropenem and vancomycin, these were stopped; patient was on Cipro and Zosyn for complicated UTI), however unable to do kidney biopsy due to thrombocytopenia. Patient did receive short course of methylprednisolone but was held due to upper GI bleed. Renal serologies were all negative. Fortunately for patient renal function began to improve. Patient was nonoliguric. Serum creatinine was 3.32 mg/dL on 03/13/2025. Last labs on March 16 serum creatinine 3.69 mg/dL. Quite possibly fluctuation in serum creatinine from hemodynamics. Blood pressures on low side currently. Patient has known source of GI bleeding from peptic ulcer, he has received PRBC infusions. Hemoglobin 8.6 today, GI following patient. Patient had suprapubic catheter changed last week per urology, patient has good urine output approximately 2.9 liters urine output yesterday. No acute indication for renal placement therapy, potassium and bicarb normal and volume status appears compensated. Labs ordered for tomorrow. Blood pressure is on low side, will add holding parameters to doxazosin. Will hold off on any IV fluids however quite possibly patient may be becoming intravascularly volume depleted with GI loss, urine output yesterday around 2.9 L with adequate to poor oral intake. Per cumulative I&O patient is net negative around 4 L. Further orders forthcoming as hospitalization evolves, thank you for allowing us participate in the care of Mr. Milan. Assessment and plan reviewed with Dr. Steinberg. HPI Consult Data Date of Consult: 03/18/25 HPI Narrative HPI Narrative: BARBARA MILAN, is a 79 M with past medical history significant for history of prostate cancer status post resection with stricture requiring suprapubic catheter, history of hypertension who was admitted to the hospital 02/24 after presenting to the emergency room with complaints of fever and chills, admitted for acute complicated urinary tract infection. During last hospitalization nephrology consulted in view of elevated creatinine. Serum creatinine was close to baseline on hospital admission, 1.2 mg/dL on 02/24. Serum creatinine peaked up to 4.48 on 03/04. There was concern for possible AIN related to antibiotics however due to thrombocytopenia patient did not undergo kidney biopsy. Patient was started on methylprednisolone 125 mg IV twice daily started on 03/02 for presumed AIN however steroids were stopped on 03/05 as patient decompensated secondary to GI bleed. Renal serologies were sent, C ANCA, P ANCA, complements, GB membrane all in normal range. Fortunately for patient renal function began to improve without needing any renal placement therapy. Serologies were negative. Patient was eventually transferred to rehab unit for further therapy. Nephrology consulted while patient is in rehab unit. Today patient states he is feeling better as compared to last week. Appetite has improved somewhat but now he is tested positive for C. difficile and has had multiple episodes of diarrhea for the past few days. Oral ulcers have almost healed. No nausea or vomiting. 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 Anemia Anxiety and depression Hypertension CKD (chronic kidney disease) Hearing loss, left Hearing loss, right Chronic indwelling Worthy catheter TIA (transient ischemic attack) Chronic radiation cystitis Worthy catheter in place Wears glasses Arthritis Non-smoker Home Medications ?Medication ?Instructions ?Recorded ?Last Taken ?Type terazosin 5 mg capsule 5 mg PO QPM BLOOD PRESSURE 12/08/18 03/04/25 History multivit,Ca,min-iron 8 mg-folic 1 tab PO DAILY SUPPLEMENT 11/04/23 02/24/25 History acid 200 mcg-lycopene 600 mcg tablet (A Thru Z Men's Ultimate) L.acidophil,salivari-Bifido 1 cap PO DAILY Bowel health 02/24/25 02/24/25 History bifidum-Strep thermoph 175 mg capsule acetaminophen 325 mg tablet 650 mg (2 x 325 mg) PO Q4H PRN PRN 03/12/25 03/12/25 Rx pain 1-03/15 #0 tabs furosemide 40 mg tablet (Lasix) 40 mg PO DAILY PRN leg swelling 1 03/12/25 Unknown Rx month #30 tabs pantoprazole 40 mg tablet,delayed 40 mg PO BID stomach #0 tabs 03/12/25 03/12/25 Rx release sennosides 8.6 mg-docusate sodium 2 tab PO BID PRN PRN Constipation 03/12/25 Unknown Rx 50 mg tablet (Stimulant Laxative #0 tabs Plus) Allergy/AdvReac Type Severity Reaction Status Date / Time meropenem Allergy Severe All blood Verified 03/03/25 09:09 cells low losartan Allergy Mild Rash Verified 02/24/25 23:38 Sulfa (Sulfonamide Allergy Hives Verified 02/24/25 23:38 Antibiotics) atenolol AdvReac Mild WEAKNESS Verified 02/24/25 23:38 hydrochlorothiazide AdvReac Mild UNKNOWN Verified 02/24/25 23:38 indomethacin (From Indocin) AdvReac Mild GI upset Verified 02/24/25 23:38 Family History Mother , secondary to complications with c-difficile colitis. No medical history per son. No problems noted. Father , in MVA. No medical history per son. No problems noted. Surgical History History of left knee replacement Hx of radical prostatectomy Hx of cystoscopy Hx of colonoscopy Social History household members: spouse housing: house Smoking Status: Never smoker alcohol intake: never substance use type: does not use ROS ROS Narrative As per HPI otherwise negative Physical Exam Narrative Alert and oriented x 3, no apparent distress S1, S2, RRR Lungs sound clear Abdomen soft, nontender, positive bowel sounds Trace to 1+ edema bilateral lower legs, however much improved compared to last week Indwelling Owrthy with clear yellow urine in bag Lab / Micro Data 03/18/25 08:35 03/16/25 18:32 Labs: Laboratory Results - last 24 hr 03/18/25 08:35: Hgb 8.6 L, Hct 26.9 L Micro: Microbiology 03/16/25 18:40 Urine Catheter - Worthy Urine Culture - Preliminary Culture exhibits no growth. 03/18/25 06:00 Nasal Secretion SARS-CoV-2 Antigen (Rapid) - Final
--- NOTE | 2025-03-18 13:52 | PCM.PN.ID ---
Physical Exam Narrative Still with a lot of diarrhea, no fever, no abd pain, no blood in stool Const alert and no apparent distress General Appearance: cooperative Resp normal air movement and clear to auscultation bilaterally Cardio regular rate and regular rhythm GI soft to palpation, non-tender and non-distended Skin no rashes or lesions noted ID ID: Route of nutrition/ use of supplements: [] Nutritional Intake: [] IV Site: [] Worthy Catheter: [] Assessment & Plan Assessment/Plan (1) C. difficile diarrhea: PLAN: New diarrhea after recent abx. Repeat cxs are negative. Will stop cipro and zosyn. Cont po vanc for 10 more days. Will follow, thank you
[2025-03-18] MEDS: 0.9% Saline Lock 10 ML Syringe IV (21:02)
[2025-03-18] MEDS: Doxepin Hydrochloride 10 MG Capsule PO (21:02)
[2025-03-18 21:11] VITALS: BP 128/80; PULSE 74
[2025-03-19 00:44] VITALS: PULSE 88; RESP 16; O2SAT 97
--- NOTE | 2025-03-19 01:01 | NURSING ---
Pt reported moderate amount of urine leaking from suprapubic catheter. Pt gown, attends, and green pad observed to be wet. No signs of occlusion noted on assessment of suprapubic catheter. Irrigated suprapubic catheter with 10 mL of normal saline utilizing sterile technique. 10 mL of NS returned after irrigation. Pt tolerated procedure well, reports no discomfort at this time. Assessed balloon of catheter to ensure catheter placement. Balloon inflated with 10 mL of NS. Pt gown, attends, and bed linens changed. Pt repositioned for comfort. Call light within reach. Denies needs for further assistance. Written communication left for Dr. Abrams regarding suprapubic catheter leaking.
[2025-03-19] MEDS: Vancomycin 125 MG/5 ML Susp PO.SYRINGE PO ×3 (05:15→23:00)
[2025-03-19 06:00] VITALS: BMI 27.5
[2025-03-19 08:27] LABS: Hematocrit 24.7 % (40-54); Hemoglobin 7.9 g/dL (13.0-16.5)
[2025-03-19 08:52] VITALS: BP 124/76; PULSE 83; RESP 16; TEMP 36.9; O2SAT 99
[2025-03-19 09:05] LABS: Anion Gap 11 (5-15); BUN 26 mg/dL (4-19); BUN/Creat Ratio 7.2 RATIO (10-20); Calcium,Total 7.6 mg/dL (7.6-11.0); Carbon Dioxide 20.1 mmol/L (21.0-32.0); Chloride 103 mmol/L (98-108); Estimated Creatinine Clearance 19.09 ml/min (50-250); Glucose 149 mg/dL (70-99); Potassium 3.9 mmol/L (3.3-5.1)
--- NOTE | 2025-03-19 10:55 | PCM.PN.REN ---
Subjective Subjective Sitting on edge of bed working with therapy. at bedside. Has been n.p.o. for EGD. States amount of stool is less and not as watery. Objective Data Objective Data Vital Signs: Vital Signs Temp Pulse Resp BP Pulse Ox O2 Del Method O2 Flow Rate 98.5 F 83 16 124/76 H 99 Room Air 97 03/19/25 08:52 03/19/25 08:52 03/19/25 08:52 03/19/25 08:52 03/19/25 08:52 03/19/25 08:52 03/13/25 14:44 Oxygen Flow Rate (L/min) 97 Oxygen Delivery Method Room Air Weight: 88.451 kg Body Mass Index (BMI) 27.9 Intake & Output: Intake and Output for Last 24 Hours 03/17/25 03/18/25 03/19/25 23:59 23:59 23:59 Intake Total 1433.00 / 1433.00 1584.38 / 1584.38 Output Total 2900 / 2900 1650 / 1650 750 / 750 Balance -1467.00 / -1467.00 -65.62 / -65.62 -750 / -750 Lab / Micro Data 03/19/25 08:10 03/19/25 08:10 Labs: Laboratory Results - last 24 hr 03/19/25 08:10: Hgb 7.9 L, Hct 24.7 L, Sodium 134, Potassium 3.9, Chloride 103, Carbon Dioxide 20.1 L, Anion Gap 11, BUN 26 H, Creatinine 3.63 H, Estim Creat Clear Calc 19.09 L, Est GFR (MDRD) Non-Af 17 L, BUN/Creatinine Ratio 7.2 L, Glucose 149 H, Calcium 7.6 Micro: Microbiology 03/16/25 18:40 Urine Catheter - Worthy Urine Culture - Preliminary Possible Fungus 03/16/25 18:37 Blood Culture (Wb) - Anticubital Right Blood Culture - Preliminary No growth in 48 hours. 03/16/25 18:32 Blood Culture (Wb) - Anticubital Left Blood Culture - Preliminary No growth in 48 hours. 03/18/25 06:00 Nasal Secretion SARS-CoV-2 Antigen (Rapid) - Final 03/16/25 19:11 Mucosa - Nasopharyngeal Respiratory Panel (PCR) - Final 03/16/25 18:05 Nasal Secretion SARS-CoV-2 Antigen (Rapid) - Final 03/15/25 18:00 Stool C. difficile GDH Antigen & Toxins - Final Toxigenic C. difficile 03/15/25 18:00 Stool Clostridioides difficile (PCR) - Final 03/14/25 20:02 Stool Stool Occult Blood (LISANDRA) - Final Occult Blood Positive 03/13/25 08:10 Mucosa - Nasopharyngeal Respiratory Panel (PCR) - Final 03/13/25 08:13 Nasal Secretion SARS-CoV-2 Antigen (Rapid) - Final Physical Exam Narrative Alert and oriented x 3, no apparent distress S1, S2, RRR Lungs sound clear Abdomen soft, nontender, positive bowel sounds Trace edema bilateral lower legs, however much improved compared to last week Indwelling Worthy with clear yellow urine in bag Assessment & Plan Assessment/Plan (1) CHRIS (acute kidney injury): PLAN: Plan This is a 79-year-old male whom we have been following for CHRIS. Baseline creatinine around 1.2 mg/dL range. Patient was admitted to hospital on 02/24 for complicated UTI and renal function was at baseline. Serum creatinine peaked 4.48 on 03/04. There was concern for acute interstitial nephritis related to antibiotics (had been on meropenem and vancomycin, these were stopped; patient was on Cipro and Zosyn for complicated UTI), however unable to do kidney biopsy due to thrombocytopenia. Patient did receive short course of methylprednisolone but was held due to upper GI bleed. Renal serologies were all negative. Fortunately for patient renal function began to improve. Patient was nonoliguric. Serum creatinine was 3.32 mg/dL on 03/13/2025. Last labs on March 16 serum creatinine 3.69 mg/dL. Quite possibly fluctuation in serum creatinine from hemodynamics. Blood pressures on low side currently. Patient has known source of GI bleeding from peptic ulcer, he has received PRBC infusions. Hemoglobin 8.6 today, GI following patient. Patient had suprapubic catheter changed last week per urology, patient has good urine output approximately 2.9 liters urine output yesterday. No acute indication for renal placement therapy, potassium and bicarb normal and volume status appears compensated. Blood pressure is on low side, will add holding parameters to doxazosin. Will hold off on any IV fluids however quite possibly patient may be becoming intravascularly volume depleted with GI loss, urine output yesterday around 2.9 L with adequate to poor oral intake. Per cumulative I&O patient is net negative around 4 L. 03/19/2025: Nonoliguric CHRIS superimposed on CKD stage IIIa with baseline creatinine ranging around 1.2 mg/dL. Serum creatinine 3.69 on 03/16, today serum creatinine 3.63. Possibly serum creatinine has plateaued and hopefully will begin to improve. Patient does not need daily labs. Potassium and bicarb acceptable. Patient continues to have good urine output. Volume status much improved as compared to last week, not as edematous. Patient is n.p.o. for EGD. Once able to eat encouraged patient to push/increase oral and solute intake. Patient does not need any diuretics. Will hold off on any IV fluids. Patient states still having loose stools but the amount and consistency improved. ID following, repeat cultures negative therefore Cipro and Zosyn stopped, on oral Vanco for C. difficile. Blood pressures seem to be improving. Yesterday blood pressure 93/58, today 124/76. Patient is on Cardura with holding parameters. Assessment and plan reviewed with Dr. Steinberg.
--- NOTE | 2025-03-19 14:53 | NURSING ---
Addendum entered by Janae Lagunas 03/19/25 16:46: Patient returned to the unit at this time. Original Note: Patient exited the unit at [address] Hinson.
--- NOTE | 2025-03-19 18:02 | NURSING ---
Patient requesting COVID vac to be given tomorrow. States he's exhausted from EGD. Pharmacy updated and vac retimed.
[2025-03-19] MEDS: Lactobacillis Acidophilus 1 CAP PO (22:59)
[2025-03-19] MEDS: Doxepin Hydrochloride 10 MG Capsule PO (22:59)
[2025-03-19] MEDS: 0.9% Saline Lock 10 ML Syringe IV (23:00)
[2025-03-20] VITALS (8 sets, daily range): BP systolic 126–168; BP diastolic 65–92; PULSE 65–83; RESP 16; TEMP 36.5; O2SAT 94–99
[2025-03-20 06:23] LABS: Hematocrit 23.4 % (40-54); Hemoglobin 7.6 g/dL (13.0-16.5); Immature Granulocytes Count 0.020 X10^3/uL (0.0-0.0); Mean Corp Hgb Conc 32.5 g/dL (32-36); Mean Corpuscular Volume 85.7 fL (80-94); Mean Platelet Vol. 10.5 fl (6.2-12.0); NRBC Flagged by Analyzer 0 % (0-5); Platelet Count 219 K/mm3 (150-450); RBC Distribution Width CV 15.0 % (11.6-14.6); RBC Distribution Width SD 46.3 fl (35.1-43.9); Red Blood Count 2.73 M/mm3 (4.6-6.2); White Blood Count 3.7 K/mm3 (4.4-11.0)
[2025-03-20] MEDS: Vancomycin 125 MG/5 ML Susp PO.SYRINGE PO ×4 (06:29→23:38)
[2025-03-20 06:41] LABS: Anion Gap 13 (5-15); BUN 23 mg/dL (4-19); BUN/Creat Ratio 7.0 RATIO (10-20); Calcium,Total 7.7 mg/dL (7.6-11.0); Carbon Dioxide 19.2 mmol/L (21.0-32.0); Chloride 106 mmol/L (98-108); Estimated Creatinine Clearance 19.18 ml/min (50-250); Glucose 94 mg/dL (70-99); Potassium 4.0 mmol/L (3.3-5.1)
--- NOTE | 2025-03-20 06:53 | NURSING ---
Written communication left for Dr. Abrams regarding Hemoglobin result of 7.6 today.
--- NOTE | 2025-03-20 08:35 | NURSING ---
Channel Development Director Note; MDS for 03/19/2025 Complete
[2025-03-20] MEDS: Lactobacillis Acidophilus 1 CAP PO ×2 (10:06→21:07)
[2025-03-20] MEDS: Tuberculin,Purif.prot.deriv. 50 TU/ML Vial 0.1 ML ID (10:14)
--- NOTE | 2025-03-20 13:10 | CASEMGMT ---
Social Work IDT met with patient, , dtr and son for care plan meeting. Discussed patient's progress in PT/OT/ST/SN/RDN. Educated to Medicare benefit. Provided pt/family with written communication of insurance process and copay coverage during stay. Pt is improving with therapy, has chronic cath, in isolation for cdiff. Pt is medically complex. has been present daily and hav see therapy sessions. SW will continue to follow for DC planning. Mimi Hoyt TERRITORY SALES MANAGER MEDICAL EDUCATIONAL PROGRAMMING DIRECTOR
[2025-03-20] MEDS: COVID VAC 25-26 (12UP)(MOD)/PF 50 MCG/0.5 ML SYRINGE IM (14:10)
[2025-03-20] MEDS: 0.9% Saline Lock 10 ML Syringe IV ×2 (18:53→21:07)
[2025-03-20] MEDS: Doxepin Hydrochloride 10 MG Capsule PO (21:07)
--- NOTE | 2025-03-21 04:34 | NURSING ---
Written communication left for Dr. Abrams regarding suprapubic catheter leaking large amount of urine x3 and cath tubing not secure at insertion site.
[2025-03-21 06:00] VITALS: PULSE 81; O2SAT 95; BMI 28.0
[2025-03-21] MEDS: Vancomycin 125 MG/5 ML Susp PO.SYRINGE PO ×4 (06:04→23:51)
[2025-03-21] MEDS: Lactobacillis Acidophilus 1 CAP PO ×2 (08:22→20:12)
[2025-03-21] MEDS: FLU VACCINE HIGH DOSE 25-26(65YR UP) 180 MCG/0.5 ML SYRINGE IM (08:23)
[2025-03-21 08:47] VITALS: BP 143/80; PULSE 89; RESP 24; TEMP 36.8; O2SAT 95
--- NOTE | 2025-03-21 09:39 | NURSING ---
Reported to this RN that catheter flushed easily with urine return, but continues to leak, soaking clothes/sheets. Updated Dr. Abrams, order to notify Dr. Gilliland for further orders. Left VM with Dr. Gilliland. Await return call.
[2025-03-21 18:48] LABS: Hematocrit 30.7 % (40-54); Hemoglobin 10.3 g/dL (13.0-16.5)
[2025-03-21 20:00] VITALS: BP 156/84; PULSE 80; RESP 16
[2025-03-21] MEDS: Doxepin Hydrochloride 10 MG Capsule PO (20:12)
--- NOTE | 2025-03-22 04:57 | NURSING ---
enteric precautions continue as ordered, cdiff +, no reports of loose stool this HS, oral vanc continues as ordered.
[2025-03-22 06:00] VITALS: BMI 27.8
[2025-03-22] MEDS: Vancomycin 125 MG/5 ML Susp PO.SYRINGE PO ×4 (06:29→23:28)
[2025-03-22] MEDS: 0.9% Saline Lock 10 ML Syringe IV ×2 (06:32→21:01)
--- NOTE | 2025-03-22 06:45 | NURSING ---
PATIENT CONTINUES TO C/O INSOMNIA DESPITE PHARMACOLOGIC AND NON-PHARMACOLOGIC INTERVENTIONS. WRITTEN COMMUNICATION LEFT FOR DR. SLADE
[2025-03-22] MEDS: Lactobacillis Acidophilus 1 CAP PO ×2 (09:35→20:59)
[2025-03-22 09:42] VITALS: BP 117/77; PULSE 110; RESP 18; TEMP 36.9; O2SAT 96
[2025-03-22 13:11] VITALS: BMI 27.8
[2025-03-22 20:00] VITALS: PULSE 75; O2SAT 95
[2025-03-22 20:53] VITALS: BP 135/83; PULSE 80
--- NOTE | 2025-03-23 00:26 | NURSING ---
All care provided in room due to contact precautions.
[2025-03-23 04:40] VITALS: PULSE 72; O2SAT 96
[2025-03-23 06:00] VITALS: BMI 27.8
[2025-03-23] MEDS: Vancomycin 125 MG/5 ML Susp PO.SYRINGE PO ×4 (06:03→23:05)
--- NOTE | 2025-03-23 06:07 | NURSING ---
Patient requested that suprapubic cath be flushed due to feeling like it is leaking, catheter flushed easily with urine return, no leaking noted at time.
[2025-03-23] MEDS: Lactobacillis Acidophilus 1 CAP PO ×2 (09:57→23:04)
[2025-03-23 15:31] VITALS: BP 131/75; PULSE 88; RESP 16; TEMP 37.1; O2SAT 96
--- NOTE | 2025-03-23 21:51 | NURSING ---
All care provided in room due to contact precautions.
[2025-03-23 22:57] VITALS: BP 153/84; PULSE 69
[2025-03-23] MEDS: 0.9% Saline Lock 10 ML Syringe IV (23:03)
[2025-03-24] MEDS: Vancomycin 125 MG/5 ML Susp PO.SYRINGE PO ×4 (06:18→23:07)
[2025-03-24] MEDS: Senna/Docusate Sodium 1 Tablet 2 TABLET PO (06:24)
[2025-03-24] MEDS: Lactobacillis Acidophilus 1 CAP PO ×2 (09:01→23:08)
[2025-03-24 13:51] VITALS: BP 148/85; PULSE 89; RESP 16; TEMP 36.5; O2SAT 96
[2025-03-24 20:00] VITALS: PULSE 76; O2SAT 96
--- NOTE | 2025-03-24 20:43 | NURSING ---
All care provided in room due to contact precautions.
[2025-03-24 23:05] VITALS: BP 147/77; PULSE 76
--- NOTE | 2025-03-25 01:58 | NURSING ---
Patient requested that supra pubic cath be flushed due to leaking, cath flushed with 40cc normal saline, flushed easily, immediate return of urine, some sediment noted in tubing.
[2025-03-25 06:00] VITALS: BMI 27.3
[2025-03-25] MEDS: Vancomycin 125 MG/5 ML Susp PO.SYRINGE PO ×4 (06:02→23:58)
[2025-03-25] MEDS: Senna/Docusate Sodium 1 Tablet 2 TABLET PO (06:13)
[2025-03-25 06:35] VITALS: PULSE 79; O2SAT 94
[2025-03-25] MEDS: Lactobacillis Acidophilus 1 CAP PO ×2 (07:50→20:22)
[2025-03-25 07:56] VITALS: BP 155/75; PULSE 71; RESP 18; TEMP 36.4; O2SAT 96
--- NOTE | 2025-03-25 09:16 | NURSING ---
ALL CARE PROVIDED IN ROOM THIS SHIFT D/T CONTACT PRECAUTIONS.
--- NOTE | 2025-03-25 09:29 | MDS.RN ---
Information for the MDS was obtained from review of the clinical record, interview of resident, staff, and direct observation of resident?s care.
[2025-03-25 19:01] LABS: Hematocrit 31.5 % (40-54); Hemoglobin 10.3 g/dL (13.0-16.5); Immature Granulocytes Count 0.040 X10^3/uL (0.0-0.0); Mean Corp Hgb Conc 32.7 g/dL (32-36); Mean Corpuscular Volume 86.1 fL (80-94); Mean Platelet Vol. 10.4 fl (6.2-12.0); NRBC Flagged by Analyzer 0 % (0-5); Platelet Count 271 K/mm3 (150-450); RBC Distribution Width CV 14.8 % (11.6-14.6); RBC Distribution Width SD 46.7 fl (35.1-43.9); Red Blood Count 3.66 M/mm3 (4.6-6.2); White Blood Count 3.7 K/mm3 (4.4-11.0)
[2025-03-25 20:20] VITALS: BP 146/78; PULSE 80
[2025-03-26] MEDS: Vancomycin 125 MG/5 ML Susp PO.SYRINGE PO ×3 (06:27→17:08)
--- NOTE | 2025-03-26 06:33 | NURSING ---
Patient reports feeling restless and anxious often at night, when inquiring about possible cause of restlessness/anxiety, patient states I'm not sure, I just wake up feeling anxious sometimes and it takes me a while to settle down. Patient requesting PRN medication when experiencing episode of restlessness/anxiety. Written communication left for Dr. Abrams review this AM.
[2025-03-26 08:28] LABS: Anion Gap 10 (5-15); BUN 28 mg/dL (4-19); BUN/Creat Ratio 10.1 RATIO (10-20); Calcium,Total 8.4 mg/dL (7.6-11.0); Carbon Dioxide 23.3 mmol/L (21.0-32.0); Chloride 103 mmol/L (98-108); Estimated Creatinine Clearance 22.58 ml/min (50-250); Glucose 97 mg/dL (70-99); Potassium 4.7 mmol/L (3.3-5.1)
[2025-03-26 09:21] VITALS: BP 123/78; PULSE 93; RESP 18; TEMP 36.6; O2SAT 98
[2025-03-26] MEDS: Lactobacillis Acidophilus 1 CAP PO ×2 (09:23→21:04)
--- NOTE | 2025-03-26 14:33 | CASEMGMT ---
Social Work SW spoke with pt at bedside and inquired about readiness to DC. Pt is adlib but remains in isolation with ATB through 04/02. Pt states he is ready, but his needs to agree. SW offered to contact to discuss. Pt agreed. - SW phoned to discuss above. expressed hesitation to having pt DC home prior to end of ATB and isolation. to discuss it with the pt and notify this worker. SW agreed and will continue to follow. Mimi Hoyt IMMIGRATION OFFICER MACHINE REPAIR PERSON
--- NOTE | 2025-03-26 15:08 | NURSING ---
All care provided in room this shit due to contact precautions.
[2025-03-27] MEDS: Vancomycin 125 MG/5 ML Susp PO.SYRINGE PO ×5 (00:50→22:52)
[2025-03-27 07:57] LABS: Hematocrit 30.3 % (40-54); Hemoglobin 10.0 g/dL (13.0-16.5); Immature Granulocytes Count 0.030 X10^3/uL (0.0-0.0); Mean Corp Hgb Conc 33.0 g/dL (32-36); Mean Corpuscular Volume 86.6 fL (80-94); Mean Platelet Vol. 10.2 fl (6.2-12.0); NRBC Flagged by Analyzer 0 % (0-5); POSITIVE DIFFERENTIAL YES; Platelet Count 294 K/mm3 (150-450); RBC Distribution Width CV 14.7 % (11.6-14.6); RBC Distribution Width SD 46.5 fl (35.1-43.9); Red Blood Count 3.50 M/mm3 (4.6-6.2); White Blood Count 3.9 K/mm3 (4.4-11.0)
[2025-03-27 08:13] LABS: Anion Gap 10 (5-15); BUN 30 mg/dL (4-19); BUN/Creat Ratio 10.8 RATIO (10-20); Calcium,Total 8.5 mg/dL (7.6-11.0); Carbon Dioxide 24.0 mmol/L (21.0-32.0); Chloride 102 mmol/L (98-108); Estimated Creatinine Clearance 22.33 ml/min (50-250); Glucose 91 mg/dL (70-99); Potassium 4.7 mmol/L (3.3-5.1)
[2025-03-27] MEDS: Lactobacillis Acidophilus 1 CAP PO ×2 (11:22→22:50)
[2025-03-27 11:35] VITALS: BP 145/83; PULSE 84; RESP 17; TEMP 36.6; O2SAT 98
[2025-03-27 20:00] VITALS: PULSE 80; O2SAT 96
[2025-03-27 22:47] VITALS: BP 148/79; PULSE 73
--- NOTE | 2025-03-28 01:38 | NURSING ---
All care provided in room due to contact precautions.
[2025-03-28 04:28] VITALS: PULSE 74; O2SAT 96
[2025-03-28 06:00] VITALS: BMI 26.4
[2025-03-28] MEDS: Vancomycin 125 MG/5 ML Susp PO.SYRINGE PO ×4 (06:11→23:29)
[2025-03-28 11:15] VITALS: BP 149/75; PULSE 90; RESP 16; TEMP 36.3; O2SAT 94
[2025-03-28] MEDS: Lactobacillis Acidophilus 1 CAP PO ×2 (11:19→20:55)
[2025-03-28 20:52] VITALS: BP 131/80; PULSE 87
--- NOTE | 2025-03-29 02:29 | NURSING ---
All care provided in room due to contact precautions.
[2025-03-29 06:00] VITALS: BMI 26.6
[2025-03-29] MEDS: Vancomycin 125 MG/5 ML Susp PO.SYRINGE PO ×4 (06:08→23:24)
[2025-03-29] MEDS: Lactobacillis Acidophilus 1 CAP PO ×2 (09:17→21:12)
[2025-03-29 09:30] VITALS: BP 125/82; PULSE 84; RESP 17; TEMP 36.4; O2SAT 95
[2025-03-29 10:00] VITALS: PULSE 73; O2SAT 97
--- NOTE | 2025-03-29 16:29 | CASEMGMT ---
Social Work SW received call from inquiring about updates for DC. Pt is OOI, if no further symptoms, on 04/03. stated [employer] is scheduled to come on Tuesday and Tuesday, and needs time to get the bathroom back in order after that. SW offered to set DC for 04/05. agreeable and appreciative. SW inquired if would like a list of C agencies or to use [facility] again. denied list and requesting to use [facility]. confirmed no DME needs and she will arrange transport for DC. - SW phoned [facility] PT/SN. Plan: DC home with 04/05, [facility] PT/SN Mimi HEBERT PARTS CATALOGER
[2025-03-29 21:15] VITALS: BP 147/86; PULSE 82
[2025-03-30 06:00] VITALS: BMI 26.4
[2025-03-30] MEDS: Vancomycin 125 MG/5 ML Susp PO.SYRINGE PO ×4 (06:00→23:36)
[2025-03-30] MEDS: Lactobacillis Acidophilus 1 CAP PO ×2 (09:22→21:09)
[2025-03-30 09:24] VITALS: BP 139/86; PULSE 95; RESP 17; TEMP 35.3; O2SAT 96
[2025-03-30 21:19] VITALS: BP 141/79; PULSE 78
[2025-03-31 06:00] VITALS: BMI 26.4
[2025-03-31] MEDS: Vancomycin 125 MG/5 ML Susp PO.SYRINGE PO ×4 (06:34→22:46)
[2025-03-31 10:27] VITALS: BP 136/84; PULSE 89; RESP 17; TEMP 35.9; O2SAT 94
[2025-03-31] MEDS: Lactobacillis Acidophilus 1 CAP PO ×2 (10:30→22:45)
[2025-03-31 20:00] VITALS: PULSE 88; O2SAT 96
[2025-03-31 22:43] VITALS: BP 130/85; PULSE 85
[2025-04-01 03:39] VITALS: PULSE 84; O2SAT 96
[2025-04-01] MEDS: Vancomycin 125 MG/5 ML Susp PO.SYRINGE PO ×4 (06:05→23:50)
[2025-04-01] MEDS: Lactobacillis Acidophilus 1 CAP PO ×2 (09:03→22:16)
[2025-04-01 09:32] VITALS: BP 135/82; PULSE 83; RESP 18; TEMP 36.3; O2SAT 95
--- NOTE | 2025-04-01 11:02 | PCM.PN.REN ---
Subjective Subjective Sitting in chair in room. No complaints. States feeling much better as compared to last few weeks. States swelling to legs almost gone except for little swelling in feet. States swelling to arms gone. Objective Data Objective Data Vital Signs: Vital Signs Temp Pulse Resp BP Pulse Ox O2 Del Method O2 Flow Rate 97.4 F L 83 18 135/82 H 95 Room Air 97 04/01/25 09:32 04/01/25 09:32 04/01/25 09:32 04/01/25 09:32 04/01/25 09:32 04/01/25 09:32 03/13/25 14:44 Oxygen Flow Rate (L/min) 97 Oxygen Delivery Method Room Air Weight: 81.329 kg Body Mass Index (BMI) 26.4 Intake & Output: Intake and Output for Last 24 Hours 03/30/25 03/31/25 04/01/25 23:59 23:59 23:59 Intake Total 1080 / 1080 1320 / 1320 240 / 240 Output Total 2280 / 2280 2075 / 2075 1900 / 1900 Balance -1200 / -1200 -755 / -755 -1660 / -1660 Lab / Micro Data 03/27/25 07:16 03/27/25 07:16 Micro: Microbiology 03/25/25 06:10 Nasal Secretion SARS-CoV-2 Antigen (Rapid) - Final 03/16/25 18:32 Blood Culture (Wb) - Anticubital Left Blood Culture - Final No growth in 5 days. 03/16/25 18:37 Blood Culture (Wb) - Anticubital Right Blood Culture - Final No growth in 5 days. 03/16/25 18:40 Urine Catheter - Worthy Urine Culture - Preliminary Possible Fungus 03/18/25 06:00 Nasal Secretion SARS-CoV-2 Antigen (Rapid) - Final 03/16/25 19:11 Mucosa - Nasopharyngeal Respiratory Panel (PCR) - Final 03/16/25 18:05 Nasal Secretion SARS-CoV-2 Antigen (Rapid) - Final 03/15/25 18:00 Stool C. difficile GDH Antigen & Toxins - Final Toxigenic C. difficile 03/15/25 18:00 Stool Clostridioides difficile (PCR) - Final 03/14/25 20:02 Stool Stool Occult Blood (LISANDRA) - Final Occult Blood Positive 03/13/25 08:10 Mucosa - Nasopharyngeal Respiratory Panel (PCR) - Final 03/13/25 08:13 Nasal Secretion SARS-CoV-2 Antigen (Rapid) - Final Physical Exam Narrative Alert and oriented x 3, no apparent distress S1, S2, RRR Lungs sound clear Abdomen soft, nontender, positive bowel sounds no edema to b/l legs. Trace pedal edema Indwelling Worthy with clear yellow urine in bag Assessment & Plan Assessment/Plan (1) CHRIS (acute kidney injury): PLAN: Plan This is a 79-year-old male whom we have been following for CHRIS. Baseline creatinine around 1.2 mg/dL range. Patient was admitted to hospital on 02/24 for complicated UTI and renal function was at baseline. Serum creatinine peaked 4.48 on 03/04. There was concern for acute interstitial nephritis related to antibiotics (had been on meropenem and vancomycin, these were stopped; patient was on Cipro and Zosyn for complicated UTI), however unable to do kidney biopsy due to thrombocytopenia. Patient did receive short course of methylprednisolone but was held due to upper GI bleed. Renal serologies were all negative. Fortunately for patient renal function began to improve. Patient was nonoliguric. Serum creatinine was 3.32 mg/dL on 03/13/2025. Last labs on March 16 serum creatinine 3.69 mg/dL. Quite possibly fluctuation in serum creatinine from hemodynamics. Blood pressures on low side currently. Patient has known source of GI bleeding from peptic ulcer, he has received PRBC infusions. Hemoglobin 8.6 today, GI following patient. Patient had suprapubic catheter changed last week per urology, patient has good urine output approximately 2.9 liters urine output yesterday. No acute indication for renal placement therapy, potassium and bicarb normal and volume status appears compensated. Blood pressure is on low side, will add holding parameters to doxazosin. Will hold off on any IV fluids however quite possibly patient may be becoming intravascularly volume depleted with GI loss, urine output yesterday around 2.9 L with adequate to poor oral intake. Per cumulative I&O patient is net negative around 4 L. 03/19/2025: Nonoliguric CHRIS superimposed on CKD stage IIIa with baseline creatinine ranging around 1.2 mg/dL. Serum creatinine 3.69 on 03/16, today serum creatinine 3.63. Possibly serum creatinine has plateaued and hopefully will begin to improve. Patient does not need daily labs. Potassium and bicarb acceptable. Patient continues to have good urine output. Volume status much improved as compared to last week, not as edematous. Patient is n.p.o. for EGD. Once able to eat encouraged patient to push/increase oral and solute intake. Patient does not need any diuretics. Will hold off on any IV fluids. Patient states still having loose stools but the amount and consistency improved. ID following, repeat cultures negative therefore Cipro and Zosyn stopped, on oral Vanco for C. difficile. Blood pressures seem to be improving. Yesterday blood pressure 93/58, today 124/76. Patient is on Cardura with holding parameters. Assessment and plan reviewed with Dr. Steinberg. 04/01/2025: overall renal function stable with some improvement in SCr. Last labs: 03/27/2025 SCr 2.77. potassium and bicarb normal. Weights down, peak weight ~101kg, last weight 81kg. Urine output ~2L/day. Bps improved, currently on Cardura. On oral vanco for c-diff, last dose 04/02. Patient does not need daily labs. Will arrange for hospital follow-up in our [place] office.
[2025-04-01 17:14] VITALS: BMI 26.4
--- NOTE | 2025-04-01 18:42 | PCM.DC.SUM ---
Providers Date of Admission: 03/12/25 Primary Care Physician: Dr. Isaiah Han MD Consultations 03/12/25 19:12 Consult: Nephrology Routine Consulting Provider: Michelle Riddle Reason for Consult: CHRIS 2/2 AIN EMERGENT Consult: No Notified: Yes Date Notified: 03/13/25 Time Notified: 11:21 Method of Notification: Answering Service 03/15/25 07:53 Consult: Gastroenterology Routine Consulting Provider: [facility] Reason for Consult: Anemia, +Hemoccult, duodenal ulcer. EMERGENT Consult: No Notified: Yes Date Notified: 03/15/25 Time Notified: 10:43 Method of Notification: Text 03/18/25 09:30 Consult: Infectious Disease Routine Consulting Provider: Cameron Giron Reason for Consult: complicated UTI, c. diff. EMERGENT Consult: No Notified: Yes Date Notified: 03/18/25 Time Notified: 09:31 Method of Notification: Text Reason For Visit: COMPLICATED UTI, SIRS Diagnosis Discharge Diagnosis (1) CHRIS (acute kidney injury): Status: Acute Code(s): N17.9 - Acute kidney failure, unspecified Plan 79 year old male with past medical history significant for suprapubic catheter, hospitalized for complicated urinary tract infection, acute kidney injury 2/2 acute interstitial nephritis, complicated by acute respiratory failure requiring intubation, acute blood loss anemia 2/2 duodenal ulcer, eosinophilia, thrombocytopenia, hypocalcemia, encephalopathy, admitted to TCU with debility, here for rehabilitation, strengthening, prior to discharge home with . Debility - PT/OT. Pain - Tylenol 650mg q4 prn. Bowel - Senna/colace 2 tablets bid. Adult immunization - Administer pneumonia vaccine, covid vaccine, flu vaccine as appropriate. DVT prophylaxis - Hold, UGIB, low platelets. BPH - Doxazosin 4mg daily. Edema - Furosemide 40mg daily. GI prophylaxis - Lactobacillus 1 capsule daily. Nutrition - MVI 1 tablet daily. Duodenal ulcer - Pantoprazole 40mg bid. Acute kidney injury 2/2 AIN - consult Nephrology to follow. Medications at Discharge Home Medications terazosin 5 mg capsule 5 mg PO QPM BLOOD PRESSURE 12/08/18 multivit,Ca,min-iron 8 mg-folic acid 200 mcg-lycopene 600 mcg tablet (A Thru Z Men's Ultimate) 1 tab PO DAILY SUPPLEMENT 11/04/23 L.acidophil,salivari-Bifido bifidum-Strep thermoph 175 mg capsule 1 cap PO DAILY Bowel health 02/24/25 ascorbic acid (vitamin C) 500 mg tablet 500 mg PO 1000 30 days #30 tabs 04/01/25 pantoprazole 40 mg tablet,delayed release 40 mg PO BID 30 days #60 tabs 04/01/25 polysaccharide iron complex 150 mg iron capsule (Ferrex) 150 mg PO DAILY 30 days #30 caps 04/01/25 sucralfate 1 gram tablet 1 g PO 1HR_ACHS 30 days #120 tabs 04/01/25 Hospital Course Operations None Procedures EGD Summary of Care Provided Minutes Spent on Discharge: 35 Hospital Course: 79 year old male with past medical history significant for suprapubic catheter, hospitalized for complicated urinary tract infection, acute kidney injury 2/2 acute interstitial nephritis, complicated by acute respiratory failure requiring intubation, acute blood loss anemia 2/2 duodenal ulcer, eosinophilia, thrombocytopenia, hypocalcemia, encephalopathy, admitted to TCU with debility, here for rehabilitation, strengthening, prior to discharge home with . 03/19/2025 Friend: Impression: - LA Grade B erosive esophagitis with bleeding. Treated with a heater probe. - No gross lesions in the entire stomach. - Non-bleeding duodenal ulcer with pigmented material. Treated with a heater probe. - No specimens collected. Recommendation: - Return patient to referring hospital for ongoing care. - Resume previous diet. - Continue present medications. - Use Protonix (pantoprazole) 40 mg PO BID for 2 months. - Use sucralfate tablets 1 gram PO QID for 6 weeks. Favian had c. diff which was treated with course of oral Vancomycin. Discharge home with 04/05/2025, [facility] PT/SN. Physical Exam Const alert General Appearance: cooperative HEENT normocephalic Eyes PERRL and EOMs intact bilaterally Neck supple, no JVD and no carotid bruits Resp normal respiratory effort, normal air movement and clear to auscultation bilaterally Cardio regular rate and regular rhythm GI normal to inspection, nondistended, normoactive bowel sounds, non-tender and non-distended Bladder / Kidney Exam: catheter in place suprapubic Extremity normal capillary refill General Extremity: Negative for edema Skin no rashes or lesions noted General Skin Exam: no breakdown Psych affect normal Appearance: appropriate Weight / BMI Weight Weight: 81.012 kg Body Mass Index (BMI) 26.4 ABG / Lab / Microbiology Data 03/27/25 07:16 03/27/25 07:16 Microbiology: Microbiology 03/16/25 18:40 Urine Catheter - Worthy Urine Culture - Final Scedosporium apiospermum 03/25/25 06:10 Nasal Secretion SARS-CoV-2 Antigen (Rapid) - Final 03/16/25 18:32 Blood Culture (Wb) - Anticubital Left Blood Culture - Final No growth in 5 days. 03/16/25 18:37 Blood Culture (Wb) - Anticubital Right Blood Culture - Final No growth in 5 days. 03/18/25 06:00 Nasal Secretion SARS-CoV-2 Antigen (Rapid) - Final 03/16/25 19:11 Mucosa - Nasopharyngeal Respiratory Panel (PCR) - Final 03/16/25 18:05 Nasal Secretion SARS-CoV-2 Antigen (Rapid) - Final 03/15/25 18:00 Stool C. difficile GDH Antigen & Toxins - Final Toxigenic C. difficile 03/15/25 18:00 Stool Clostridioides difficile (PCR) - Final 03/14/25 20:02 Stool Stool Occult Blood (LISANDRA) - Final Occult Blood Positive 03/13/25 08:10 Mucosa - Nasopharyngeal Respiratory Panel (PCR) - Final 03/13/25 08:13 Nasal Secretion SARS-CoV-2 Antigen (Rapid) - Final D/C Instructions Discharge Activity: Return to Normal Activity, May Shower and Use Walker Weight Bearing Status: Weight bearing as tolerated Call your doctor if you observe: Fever of 101 or Higher, Inability to urinate, Inability to have a bowel movement, Shortness of breath, Dizziness, Fainting spells, Swelling in the ankles, Chest pain and Uncontrolled pain DC O2, CPAP, BIPAP Needs Home O2 Discharge instructions: No Additional Instructions: Discharge home with 04/05/2025, [facility] PT/SN. Meaningful Use Info Meaningful Use Meaningful Use Diagnoses (Choose all that apply): None applicable Discharge Plan Admission Admit Date/Time: 03/12/25 16:32 Primary Reason for Your Visit: Debility. Attending Provider: Tim Abrams Chi Primary Care Provider: Isaiah Han Consulting Providers: Michelle Riddle; Jameel Herrera; Friend,Jp; Claudia Carnes; Columba Vale; Anita Yanez; Cameron Giron Instructions Additional Instructions / Restrictions: Discharge home with 04/05/2025, [facility] PT/SN. Discharge Orders/Prescriptions Prescriptions: New polysaccharide iron complex [Ferrex 150] 150 mg iron Capsule 150 mg PO DAILY 30 Days Qty: 30 0RF ascorbic acid (vitamin C) 500 mg Tablet 500 mg PO 1000 30 Days Qty: 30 0RF pantoprazole 40 mg Tablet,Delayed Release (Dr/Ec) 40 mg PO BID 30 Days Qty: 60 0RF sucralfate 1 gram Tablet 1 g PO 1HR_ACHS 30 Days Qty: 120 0RF Continued terazosin 5 MG capsule 5 mg PO QPM LVargasacidoph,saliva-B.bif-S.therm 175 mg Capsule 1 cap PO DAILY A Thru Z Men's Ultimate 8 mg iron- 200 mcg-600 mcg tablet 1 tab PO DAILY Discontinued acetaminophen 325 mg Tablet 650 mg PO Q4H PRN PRN (Reason: pain 1-03/15) Qty: 0 0RF sennosides-docusate sodium [Stimulant Laxative Plus] 8.6-50 mg Tablet 2 tab PO BID PRN PRN (Reason: Constipation) Qty: 0 0RF pantoprazole 40 mg Tablet,Delayed Release (Dr/Ec) 40 mg PO BID Qty: 0 0RF furosemide [Lasix] 40 mg tablet 40 mg PO DAILY PRN (Reason: leg swelling) 30 Days Qty: 30 0RF Referrals / Follow Up: [facility] [Other] Isaiah Han MD [Primary Care Provider, Family Practice] - 04/11/25 1:40 pm Michelle Riddle DEVELOPMENT DIRECTOR-C [Med Staff - [facility] Practice Prof, Nephrology] Referral Note: office says they'll reach out to patient Disposition Disposition (needs filled in before D/C Order can be placed): Home Health Service
--- NOTE | 2025-04-01 19:49 | NURSING ---
Stool is soft, formed, no loose stools or diarrhea,
[2025-04-01 22:22] VITALS: BP 131/81; PULSE 80
[2025-04-02] MEDS: Vancomycin 125 MG/5 ML Susp PO.SYRINGE PO ×3 (06:08→16:58)
--- NOTE | 2025-04-02 06:24 | NURSING ---
Stool remains soft, formed, no loose stools or diarrhea noted or reported.
[2025-04-02] MEDS: Lactobacillis Acidophilus 1 CAP PO ×2 (09:15→21:52)
[2025-04-02 09:19] VITALS: BP 121/77; PULSE 113; RESP 18; TEMP 36.7; O2SAT 97
[2025-04-02 17:12] VITALS: BMI 26.3
[2025-04-02 20:00] VITALS: PULSE 78; O2SAT 96
[2025-04-02 21:50] VITALS: BP 144/85; PULSE 78
[2025-04-03 06:00] VITALS: BMI 26.1
[2025-04-03 06:19] VITALS: PULSE 76; O2SAT 95
[2025-04-03 07:04] LABS: Hematocrit 31.5 % (40-54); Hemoglobin 10.5 g/dL (13.0-16.5); Immature Granulocytes Count 0.090 X10^3/uL (0.0-0.0); Mean Corp Hgb Conc 33.3 g/dL (32-36); Mean Corpuscular Volume 86.1 fL (80-94); Mean Platelet Vol. 9.9 fl (6.2-12.0); NRBC Flagged by Analyzer 0 % (0-5); Platelet Count 327 K/mm3 (150-450); RBC Distribution Width CV 14.8 % (11.6-14.6); RBC Distribution Width SD 46.8 fl (35.1-43.9); Red Blood Count 3.66 M/mm3 (4.6-6.2); White Blood Count 5.1 K/mm3 (4.4-11.0)
[2025-04-03 07:28] LABS: Anion Gap 10 (5-15); BUN 40 mg/dL (4-19); BUN/Creat Ratio 16.3 RATIO (10-20); Calcium,Total 8.8 mg/dL (7.6-11.0); Carbon Dioxide 23.1 mmol/L (21.0-32.0); Chloride 103 mmol/L (98-108); Estimated Creatinine Clearance 25.35 ml/min (50-250); Glucose 100 mg/dL (70-99); Potassium 4.7 mmol/L (3.3-5.1)
[2025-04-03 09:38] VITALS: BP 129/79; PULSE 111; RESP 18; TEMP 36.2; O2SAT 97
[2025-04-03] MEDS: Lactobacillis Acidophilus 1 CAP PO ×2 (09:42→21:33)
[2025-04-04 06:00] VITALS: BMI 26.4
[2025-04-04 09:11] VITALS: BP 131/79; PULSE 89; RESP 20; TEMP 36.4; O2SAT 97
[2025-04-04] MEDS: Lactobacillis Acidophilus 1 CAP PO ×2 (09:13→19:47)
--- NOTE | 2025-04-04 10:54 | CASEMGMT ---
Social Work SW completed BIMS () and PHQ-9 (08/30) for MDS assessment. Mimi Hoyt CONFIGURATION MANAGEMENT CONSULTANT SALES EXEC
--- NOTE | 2025-04-04 11:34 | MDS.RN ---
Pain assessment for MDS complete.
[2025-04-05] MEDS: Lactobacillis Acidophilus 1 CAP PO (09:52)
[2025-04-05 09:56] VITALS: BP 134/81; PULSE 111; RESP 18; TEMP 37.1; O2SAT 96
== END 2025-04-05 10:30 | disposition home health service (06) | DRG 698 ==
PROVIDERS: Nurse Practitioner Adult Health; Admitting Provider Family Medicine Geriatric Medicine; PCP Family Medicine; Referring Provider Family Medicine Geriatric Medicine; Visit Provider Family Medicine Geriatric Medicine
DX: N14.19 Nephropathy induced by other drugs, medicaments and biological substances (principal); K26.4 Chronic or unspecified duodenal ulcer with hemorrhage; K20.81 Other esophagitis with bleeding; A04.72 Enterocolitis due to Clostridium difficile, not specified as recurrent; D62 Acute posthemorrhagic anemia; N30.40 Irradiation cystitis without hematuria; D69.6 Thrombocytopenia, unspecified; D63.8 Anemia in other chronic diseases classified elsewhere; E83.51 Hypocalcemia; D72.10 Eosinophilia, unspecified; N18.31 Chronic kidney disease, stage 3a; I12.9 Hypertensive chronic kidney disease with stage 1 through stage 4 chronic kidney disease, or unspecified chronic kidney disease; N17.9 Acute kidney failure, unspecified; T83.518D Infection and inflammatory reaction due to other urinary catheter, subsequent encounter; Z79.899 Other long term (current) drug therapy; N40.0 Benign prostatic hyperplasia without lower urinary tract symptoms; Y73.8 Miscellaneous gastroenterology and urology devices associated with adverse incidents, not elsewhere classified; G47.00 Insomnia, unspecified; Z23 Encounter for immunization; Y84.2 Radiological procedure and radiotherapy as the cause of abnormal reaction of the patient, or of later complication, without mention of misadventure at the time of the procedure; T36.8X5D Adverse effect of other systemic antibiotics, subsequent encounter; T36.1X5D Adverse effect of cephalosporins and other beta-lactam antibiotics, subsequent encounter
CPT/HCPCS: 36415; 71046; 74018; 80048; 81001; 82274; 83540; 83550; 85014; 85018; 85025; 86850; 86900; 86901; 87040; 87077; 87086; 87088; 87493; 87633; 87811; 90480; 91322; 92507; 92523; 92610; 97110; 97116; 97162; 97166; 97530; 97535; 97802; P9016; A4216

== ENCOUNTER 2025-03-19 14:46 | Day surgery (SDC) | payer MEDICARE, OTHER, SELFPAY ==
--- NOTE | 2025-03-18 15:22 | PAT.ANE_ITS ---
Pre-Assessment Diagnosis/Proposed Procedure Planned Operative Procedure(s): EGD Anesthesia History Anesthesia History - back tender paper machine: Anesthesia History - back tender paper machine Hx Hospitalization Yes: TCU OF 03/18/25 03/18/25 15:03 INFECTION, ABN LABS Any Problems With Anesthesia No 03/18/25 15:03 Cholinesterase deficiency No 03/18/25 15:03 You/Your Family Experience No 03/18/25 15:03 fever (hyperthermia) with Relationship Recent Exposure to Contagious No 01/12/24 08:41 Disease Does patient have nerve No 03/18/25 15:03 stimulator Patient instructed to have device shut off --Does patient have Pacemaker or ICD? When Was Last Pacemaker Check QUESTION #4 FULL TEXT: You/Your Family Experience fever (hyperthermia) with Anesthesia Last Oral Intake Last Oral intake: Last Oral Intake NPO since Meds taken in AM with sips of water? Meds patient instructed to take am of surgery PONV PONV - back tender paper machine: PONV - back tender paper machine Female No 03/18/25 15:03 HX of Motion Sickness No 03/18/25 15:03 HX of N/V After Surgery No 03/18/25 15:03 Non-Smoker Yes 03/18/25 15:03 Duration of Surgery greater No 03/18/25 15:03 than 60 minutes Number of Risk Factors 1 03/18/25 15:03 PONV Score Low Risk 03/18/25 15:03 Height & Weight Height & Weight: Anesthesia: Height & Weight Height 5 ft 10 in 03/13/25 12:03 Respiratory Assessment Respiratory Assessment - back tender paper machine: Respiratory Tract Infection Hx - back tender paper machine Hx Respiratory Tract Infection No 03/18/25 15:03 STOP Sleep Apnea STOP Sleep Apnea - back tender paper machine: STOP Sleep Apnea - back tender paper machine Hx Hypertension Yes 03/18/25 15:03 Hx Sleep Apnea No 03/18/25 15:03 CPAP No 01/15/24 19:15 BIPAP Do you snore loudly (louder No 03/18/25 15:03 than talking or can be heard Do you often feel tired/ No 03/18/25 15:03 fatigued/ sleepy during daytime? Has anyone observed you stop No 03/18/25 15:03 breathing during sleep? STOP Results Negative 03/18/25 15:03 QUESTION #5 FULL TEXT : Do you snore loudly (louder than talking or can be heard through closed doors)? 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 Specify any problems Hx of Preganancy in last 3 N/A 03/18/25 15:03 Months Nurse Filling Out Transfusion NBUCHER 03/18/25 15:03 & Questions: Date: 03/18/25 03/18/25 15:03 Time: 15:05 03/18/25 15:03 Patient unable to answer at this time (ie. 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 Anemia Anxiety and depression CKD (chronic kidney disease) History of prostate cancer Hearing loss, left Hearing loss, right Chronic indwelling Worthy catheter TIA (transient ischemic attack) Hypertension Chronic radiation cystitis Worthy catheter in place Wears glasses Arthritis Non-smoker Home Medications ?Medication ?Instructions ?Recorded ?Last Taken ?Type terazosin 5 mg capsule 5 mg PO QPM BLOOD PRESSURE 0 12/08/18 03/04/25 History multivit,Ca,min-iron 8 mg-folic 1 tab PO DAILY SUPPLEM ENT 11/04/23 02/24/25 History acid 200 mcg-lycopene 600 mcg tablet (A Thru Z Men's Ultimate) L.acidophil,salivari-Bifido 1 cap PO DAILY Bowel healt h 02/24/25 02/24/25 History bifidum-Strep thermoph 175 mg capsule acetaminophen 325 mg tablet 650 mg (2 x 325 mg) PO Q4H PRN PRN 03/12/25 03/12/25 Rx pain 1-03/15 #0 tabs furosemide 40 mg tablet (Lasix) 40 mg PO DAILY PRN leg swelling 1 03/12/25 Unknown Rx month #30 tabs pantoprazole 40 mg tablet,delayed 40 mg PO BID stomach #0 tabs 03/12/25 03/12/25 Rx release sennosides 8.6 mg-docusate sodium 2 tab PO BID PRN PRN Constipation 03/12/25 Unknown Rx 50 mg tablet (Stimulant Laxative #0 tabs Plus) Allergy/AdvReac Type Severity Reaction Status Date / Time meropenem Allergy Severe All blood Verified 03/18/25 15:02 cells low losartan Allergy Mild Rash Verified 03/18/25 15:02 Sulfa (Sulfonamide Allergy Hives Verified 03/18/25 15:02 Antibiotics) atenolol AdvReac Mild WEAKNESS Verified 03/18/25 15:02 hydrochlorothiazide AdvReac Mild UNKNOWN Verified 03/18/25 15:02 indomethacin (From Indocin) AdvReac Mild GI upset Verified 03/18/25 15:02 Family History Mother , secondary to complications with c-difficile colitis. No medical history per son. No problems noted. Father , in MVA. No medical history per son. No problems noted. Surgical History History of left knee replacement Hx of radical prostatectomy Hx of cystoscopy Hx of colonoscopy Social History household members: spouse housing: house Smoking Status: Never smoker alcohol intake: never substance use type: does not use Audit: Pertinent Findings Pertinent Findings EKG Perinent findings: 03/05/2025. Atrial fibrillation with rapid ventricular response. 116 bpm. PVCs Pulmonary function results/spirometer pertinent findings: Chest x-ray 03/13/2025. Cardiomegaly. Vascular congestion and small bilateral pleural effusions. Recommendation Anesthesia Recommendation Anesthesia recommendation: OPTIMIZED for anesthesia
[2025-03-19] VITALS (7 sets, daily range): BP systolic 113–157; BP diastolic 62–77; PULSE 70–77; RESP 16–18; TEMP 36.6–36.9; O2SAT 95–100; BMI 28.2
[2025-03-19] MEDS: Lactated Ringers 1,000 ML 15 ML IV (15:16)
--- NOTE | 2025-03-19 15:42 | PRE.ANES_ITS ---
ASA Classification* ASA Classification ASA Classification: 3 and E Assessment & Plan Anesthesia* Anesthesia Assessment Anesthesia Assessment: Discussed sedation and/or anesthesia options, risks, benefits, and alternatives with patient/parents/legal guardian/POA. Questions invited. The patient/parents/legal guardian/POA seems to understand and agrees to proceed with anesthesia plan. Reviewed the physical assessment, medical history, allergy history and patient home medications list prior to surgery/procedure/anesthetic and documented any changes. Performed airway and anesthesia risk assessments. Anesthesia Type Anesthesia Type: MAC History Source History Obtained from:: Patient and Chart Anesthesia Focused Assessment* Temperature: 97.8 F Pulse Rate: 70 Blood Pressure: 157/77 Respiratory Rate: 18 Pulse Ox: 100 Oxygen Delivery Method: Room Air Airway Assessment Mouth opens: >3 cm Mallampati Score: IV Teeth Condition: Missing (Multiple missing teeth. Rest are tight.) Neck Range of motion (ROM): Limited ROM (Somewhat Decreased) Comment: Short thyromental distance. Labs Anesthesia Preop lab: CBC WBC, (4.4-11.0) 2.8 K/mm3 L 03/16/25, 18:32 RBC, (4.6-6.2) 2.91 M/mm3 L 03/16/25, 18:32 Hgb, (13.0-16.5) 7.9 g/dL L Today, 08:10 Hct, (40-54) 24.7 % L Today, 08:10 Plt Count, (150-450) 255 K/mm3 03/16/25, 18:32 CHEMISTRY Potassium, (3.3-5.1) 3.9 mmol/L Today, 08:10 Sodium, (133-145) 134 mmol/L Today, 08:10 Magnesium, (1.5-2.2) 1.8 mg/dL 03/11/25, 04:47 BUN, (4-19) 26 mg/dL H Today, 08:10 Creatinine, (0.70-1.20) 3.63 mg/dL H Today, 08:10 Glucose, (70-99) 149 mg/dL H Today, 08:10 POC Glucose, (74-106) 280 mg/dL H 03/05/25, 09:04 TSH, (0.300-4.200) 1.440 uIU/mL 09/18/24, 08:39 COAG PT, (11.7-14.9) 15.9 SECONDS H 03/06/25, 14:36 Pre-Assessment Diagnosis/Proposed Procedure Planned Operative Procedure(s): EGD Anesthesia History Anesthesia History - home health assistant: Anesthesia History - home health assistant Hx Hospitalization Yes: TCU OF 03/18/25 03/18/25 15:03 INFECTION, ABN LABS Any Problems With Anesthesia No 03/18/25 15:03 Cholinesterase deficiency No 03/18/25 15:03 You/Your Family Experience No 03/18/25 15:03 fever (hyperthermia) with Relationship Recent Exposure to Contagious No 03/19/25 15:12 Disease Does patient have nerve No 03/18/25 15:03 stimulator Patient instructed to have device shut off --Does patient have Pacemaker No 03/19/25 15:12 or ICD? When Was Last Pacemaker Check QUESTION #4 FULL TEXT: You/Your Family Experience fever (hyperthermia) with Anesthesia Last Oral Intake Last Oral intake: Last Oral Intake NPO since 08:00 03/19/25 15:12 Meds taken in AM with sips of Yes 03/19/25 15:12 water? Meds patient instructed to take am of surgery Any additional information?: Yes NPO since: 08:00 (Patient had Jell-O at 8 AM.) PONV PONV - home health assistant: PONV - home health assistant Female No 03/18/25 15:03 HX of Motion Sickness No 03/18/25 15:03 HX of N/V After Surgery No 03/18/25 15:03 Non-Smoker Yes 03/18/25 15:03 Duration of Surgery greater No 03/18/25 15:03 than 60 minutes Number of Risk Factors 1 03/18/25 15:03 PONV Score Low Risk 03/18/25 15:03 Height & Weight Height & Weight: Anesthesia: Height & Weight Height 5 ft 9 in 03/19/25 15:12 Weight: 86.636 kg 03/19/25 15:12 Body Mass Index (BMI) 28.2 03/19/25 15:12 Respiratory Assessment Respiratory Assessment - home health assistant: Respiratory Tract Infection Hx - home health assistant Hx Respiratory Tract Infection No 03/18/25 15:03 STOP Sleep Apnea STOP Sleep Apnea - home health assistant: STOP Sleep Apnea - home health assistant Hx Hypertension Yes 03/18/25 15:03 Hx Sleep Apnea No 03/18/25 15:03 CPAP No 01/15/24 19:15 BIPAP Do you snore loudly (louder No 03/18/25 15:03 than talking or can be heard Do you often feel tired/ No 03/18/25 15:03 fatigued/ sleepy during daytime? Has anyone observed you stop No 03/18/25 15:03 breathing during sleep? STOP Results Negative 03/18/25 15:03 QUESTION #5 FULL TEXT : Do you snore loudly (louder than talking or can be heard through closed doors)? 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 Specify any problems Hx of Preganancy in last 3 N/A 03/18/25 15:03 Months Nurse Filling Out Transfusion NBUCHER 03/18/25 15:03 & Questions: Date: 03/18/25 03/18/25 15:03 Time: 15:05 03/18/25 15:03 Patient unable to answer at this time (ie. 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 Anemia Anxiety and depression CKD (chronic kidney disease) History of prostate cancer Hearing loss, left Hearing loss, right Chronic indwelling Worthy catheter TIA (transient ischemic attack) Hypertension Chronic radiation cystitis Worthy catheter in place Wears glasses Arthritis Non-smoker Home Medications ?Medication ?Instructions ?Recorded ?Last Taken ?Type terazosin 5 mg capsule 5 mg PO QPM BLOOD PRESSURE 0 12/08/18 03/18/25 History multivit,Ca,min-iron 8 mg-folic 1 tab PO DAILY SUPPLEM ENT 11/04/23 03/18/25 History acid 200 mcg-lycopene 600 mcg tablet (A Thru Z Men's Ultimate) L.acidophil,salivari-Bifido 1 cap PO DAILY Bowel healt h 02/24/25 03/18/25 History bifidum-Strep thermoph 175 mg capsule acetaminophen 325 mg tablet 650 mg (2 x 325 mg) PO Q4H PRN PRN 03/12/25 03/18/25 Rx pain 1-03/15 #0 tabs furosemide 40 mg tablet (Lasix) 40 mg PO DAILY PRN leg swelling 1 03/12/25 Unknown Rx month #30 tabs pantoprazole 40 mg tablet,delayed 40 mg PO BID stomach #0 tabs 03/12/25 03/19/25 08:40 Rx release sennosides 8.6 mg-docusate sodium 2 tab PO BID PRN PRN Constipation 03/12/25 Unknown Rx 50 mg tablet (Stimulant Laxative #0 tabs Plus) Allergy/AdvReac Type Severity Reaction Status Date / Time meropenem Allergy Severe All blood Verified 03/19/25 15:11 cells low losartan Allergy Mild Rash Verified 03/19/25 15:11 Sulfa (Sulfonamide Allergy Hives Verified 03/19/25 15:11 Antibiotics) atenolol AdvReac Mild WEAKNESS Verified 03/19/25 15:11 hydrochlorothiazide AdvReac Mild UNKNOWN Verified 03/19/25 15:11 indomethacin (From Indocin) AdvReac Mild GI upset Verified 03/19/25 15:11 Family History Mother , secondary to complications with c-difficile colitis. No medical history per son. No problems noted. Father , in MVA. No medical history per son. No problems noted. Surgical History History of left knee replacement Hx of radical prostatectomy Hx of cystoscopy Hx of colonoscopy Social History household members: spouse housing: house Smoking Status: Never smoker alcohol intake: never substance use type: does not use Review of Systems (Anesthesia) ROS Narrative System reviewed and no additional complaints, except as documented.
--- NOTE | 2025-03-19 15:58 | HP.PCM_ITS ---
HPI - General General Date of Admission: 03/19/25 Date of Service: 03/19/25 Chief Complaint: Anemia HPI Narrative Anemia HPI Narrative: BARBARA PEÑA, is a 79-year-old gentleman in the transitional care unit with acute on chronic anemia due to a GI bleed and anemia of chronic disease who is known to GI service. * He has a recent hospital background in which he has required multiple packed red blood cell transfusions. * He was noted to have a bleeding peptic ulcer on esophagogastroduodenoscopy . * He is currently receiving intravenous pantoprazole and is planned for a transition to oral pantoprazole. 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 Anemia Anxiety and depression CKD (chronic kidney disease) History of prostate cancer Hearing loss, left Hearing loss, right Chronic indwelling Worthy catheter TIA (transient ischemic attack) Hypertension Chronic radiation cystitis Worthy catheter in place Wears glasses Arthritis Non-smoker Home Medications ?Medication ?Instructions ?Recorded ?Last Taken ?Type terazosin 5 mg capsule 5 mg PO QPM BLOOD PRESSURE 0 12/08/18 03/18/25 History multivit,Ca,min-iron 8 mg-folic 1 tab PO DAILY SUPPLEM ENT 11/04/23 03/18/25 History acid 200 mcg-lycopene 600 mcg tablet (A Thru Z Men's Ultimate) L.acidophil,salivari-Bifido 1 cap PO DAILY Bowel healt h 02/24/25 03/18/25 History bifidum-Strep thermoph 175 mg capsule acetaminophen 325 mg tablet 650 mg (2 x 325 mg) PO Q4H PRN PRN 03/12/25 03/18/25 Rx pain 1-03/15 #0 tabs furosemide 40 mg tablet (Lasix) 40 mg PO DAILY PRN leg swelling 1 03/12/25 Unknown Rx month #30 tabs pantoprazole 40 mg tablet,delayed 40 mg PO BID stomach #0 tabs 03/12/25 03/19/25 08:40 Rx release sennosides 8.6 mg-docusate sodium 2 tab PO BID PRN PRN Constipation 03/12/25 Unknown Rx 50 mg tablet (Stimulant Laxative #0 tabs Plus) Allergy/AdvReac Type Severity Reaction Status Date / Time meropenem Allergy Severe All blood Verified 03/19/25 15:11 cells low losartan Allergy Mild Rash Verified 03/19/25 15:11 Sulfa (Sulfonamide Allergy Hives Verified 03/19/25 15:11 Antibiotics) atenolol AdvReac Mild WEAKNESS Verified 03/19/25 15:11 hydrochlorothiazide AdvReac Mild UNKNOWN Verified 03/19/25 15:11 indomethacin (From Indocin) AdvReac Mild GI upset Verified 03/19/25 15:11 Family History Mother , secondary to complications with c-difficile colitis. No medical history per son. No problems noted. Father , in MVA. No medical history per son. No problems noted. Surgical History History of left knee replacement Hx of radical prostatectomy Hx of cystoscopy Hx of colonoscopy Social History household members: spouse housing: house Smoking Status: Never smoker alcohol intake: never substance use type: does not use ROS Constitutional Constitutional: Denies fatigue, fever(s), poor appetite, weight gain or weight loss Gastrointestinal Gastrointestinal: Denies belching, bloating, change in bowel habits, change in stool character, chewing difficulty, coffee ground emesis, constipation, cramping, diarrhea, dyspepsia, dysphagia, early satiety, excessive flatus, fecal incontinence, heartburn, hematemesis, hematochezia, hemorrhoids, loose stools, melena, nausea, odynophagia, rectal bleeding, tenesmus, vomiting or weight changes Vital Signs Vital Signs Vital Signs: 03/19/25 15:12 03/19/25 15:12 03/19/25 15:49 Temperature 97.8 F 97.8 F Temperature Source Temporal Pulse Rate 70 70 Respiratory Rate 18 18 Respiratory Pattern Normal Blood Pressure 157/77 H 157/77 H Blood Pressure Mean 103 Blood Pressure Source Monitor Blood Pressure Position Semi-Fowlers Blood Pressure Location Right Arm Pulse Ox 100 100 Oxygen Delivery Method Room Air Room Air Weight Weight: 191 lb Body Mass Index (BMI) 28.2 Physical Exam Const alert, oriented x3, no apparent distress and healthy appearing General Appearance: cooperative GI normal to inspection, nondistended, normoactive bowel sounds, soft to palpation, non-tender and non-distended Percussion: normal to percussion Rectal Exam: deferred Assessment & Plan Assessment/Plan (1) Acute blood loss anemia: (2) Duodenal ulcer: PLAN: Assessment & Plan Assessment/Plan (1) Duodenal ulcer: (2) Acute blood loss anemia: PLAN: Assessment? Problem 1: Acute on Chronic Anemia? * This is a 79-year-old gentleman with a history of acute on chronic anemia due to GI bleeding and anemia of chronic disease. * The patient has a known source of GI bleeding from a peptic ulcer identified on EGD. * Despite recent transfusion, his Hgb has demonstrated a downward trend, requiring a new consultation.? Problem 2: Iron Studies Interpretation? * The elevated ferritin level (>1300is greater than 1300 ng/mL) is a hurd finding. While typically indicative of iron overload, it can be falsely elevated in the setting of inflammation, as ferritin is a positive acute phase reactant. * Anemia of chronic disease (ACD) is an inflammatory anemia where inflammatory cytokines can cause iron to be sequestered, leading to high ferritin despite an underlying iron deficiency. * A normal or high ferritin in the setting of ACD can mask true iron deficiency, which is highly probable given the chronic GI blood loss. * The high iron saturation and serum iron could be a misleading result due to recent PRBC transfusions, which temporarily increase serum iron. * The current iron studies are not reliable indicators of true iron stores and do not rule out functional iron deficiency Therapeutic plan: EGD ]
[2025-03-19] MEDS: Lidocaine 1% (5 ml sdv) 5 ML Vial IV (16:05)
--- NOTE | 2025-03-19 16:18 | OP.EGD_ITS ---
Patient Name: Sulaiman Milan Procedure Date: 03/19/2025 3:40 PM Date of : 1945 Age: 79 Procedure: Upper GI endoscopy Indications: Acute post hemorrhagic anemia, Iron deficiency anemia, Melena, For therapy of acute duodenal ulcer Providers: Jp Hinson DO Medicines: Monitored Anesthesia Care Patient Profile: This is a 79 year old male. Refer to note in patient chart for documentation of history and physical. Patient has symptoms of acute epigastric abdominal pain. Complications: No immediate complications. Procedure: Pre-Anesthesia Assessment: - Prior to the procedure, a History and Physical was performed, and patient medications and allergies were reviewed. The patient is competent. The risks and benefits of the procedure and the sedation options and risks were discussed with the patient. All questions were answered and informed consent was obtained. Patient identification and proposed procedure were verified by the physician in the pre-procedure area. Mental Status Examination: alert and oriented. Airway Examination: normal oropharyngeal airway and neck mobility. Respiratory Examination: clear to auscultation. CV Examination: normal. Prophylactic Antibiotics: The patient does not require prophylactic antibiotics. Prior Anticoagulants: The patient has taken no anticoagulant or antiplatelet agents except for NSAID medication. ASA Grade Assessment: II - A patient with mild systemic disease. After reviewing the risks and benefits, the patient was deemed in satisfactory condition to undergo the procedure. The anesthesia plan was to use monitored anesthesia care (MAC). Immediately prior to administration of medications, the patient was re-assessed for adequacy to receive sedatives. The heart rate, respiratory rate, oxygen saturations, blood pressure, adequacy of pulmonary ventilation, and response to care were monitored throughout the procedure. The physical status of the patient was re-assessed after the procedure. After obtaining informed consent, the endoscope was passed under direct vision. Throughout the procedure, the patient's blood pressure, pulse, and oxygen saturations were monitored continuously. The Endoscope was introduced through the mouth, and advanced to the fourth part of the duodenum. Small bowel enteroscopy was deemed necessary. The upper GI endoscopy was accomplished without difficulty. The patient tolerated the procedure well. Scope In: 4:06:19 PM Scope Out: 4:11:28 PM Total Procedure Duration Time 0 hours 5 minutes 9 seconds Findings: LA Grade B (one or more mucosal breaks greater than 5 mm, not extending between the tops of two mucosal folds) esophagitis with bleeding was found 38 to 40 cm from the incisors. Coagulation for hemostasis using heater probe was successful. Estimated blood loss was minimal. No gross lesions were noted in the entire examined stomach. One non-bleeding cratered duodenal ulcer with pigmented material was found in the first portion of the duodenum. The lesion was 25 mm in largest dimension. Coagulation for tissue destruction using heater probe was successful. Estimated blood loss was minimal. Impression: - LA Grade B erosive esophagitis with bleeding. Treated with a heater probe. - No gross lesions in the entire stomach. - Non-bleeding duodenal ulcer with pigmented material. Treated with a heater probe. - No specimens collected. Recommendation: - Return patient to referring hospital for ongoing care. - Resume previous diet. - Continue present medications. - Use Protonix (pantoprazole) 40 mg PO BID for 2 months. - Use sucralfate tablets 1 gram PO QID for 6 weeks. Procedure Code(s): --- Professional --- 22350, Small intestinal endoscopy, enteroscopy beyond second portion of duodenum, not including ileum; with ablation of tumor(s), polyp(s), or other lesion(s) not amenable to removal by hot biopsy forceps, bipolar cautery or snare technique 41867, 59,51, Small intestinal endoscopy, enteroscopy beyond second portion of duodenum, not including ileum; with control of bleeding (eg, injection, bipolar cautery, unipolar cautery, laser, heater probe, stapler, plasma cold header) CPT copyright 2021 [employer]. All rights reserved. The codes documented in this report are preliminary and upon python consultant review may be revised to meet current compliance requirements. Jp Hinson DO 03/19/2025 4:17:42 PM This report has been signed electronically. Number of Addenda: 0 Note Initiated On: 03/19/2025 3:40 PM
--- NOTE | 2025-03-19 16:18 | OP.PROVAT_ITS ---
03/19/2025 Eduardo Han [address] [place] [address] Re : Upper GI endoscopy procedure for Sulaiman Milan Dear Dr. Han This procedure was performed on Wednesday, March 19, 2025. My impressions and recommendations are as follows: Impressions : - LA Grade B erosive esophagitis with bleeding. Treated with a heater probe. - No gross lesions in the entire stomach. - Non-bleeding duodenal ulcer with pigmented material. Treated with a heater probe. - No specimens collected. Recommendations : - Return patient to referring hospital for ongoing care. - Resume previous diet. - Continue present medications. - Use Protonix (pantoprazole) 40 mg PO BID for 2 months. - Use sucralfate tablets 1 gram PO QID for 6 weeks. My findings are described in the full procedure note, which is enclosed. If I can be of further assistance, please feel free to contact me at . Sincerely, Jp Hinson, 03/19/2025 4:17:42 PM This report has been signed electronically.
--- NOTE | 2025-03-19 16:19 | PCM.POST.ANE ---
Anesthesia: Postop Eval I Current Vital Signs Temperature: 98.5 F Pulse Rate: 71 Blood Pressure: 113/62 Respiratory Rate: 16 Pulse Ox: 98 Oxygen Delivery Method: Room Air Assessment Airway patent: Yes Spontaneous unlabored respirations: Yes Mental status: Awake and Calm nausea: No Vomiting: No Anesthesia Complication: No Fluid Hydration Crystalloid volume administer (ml): 400 Total IV fluid infused: 400 Progress Note Anesthesia document: Postop Eval 1 completed: Yes
--- NOTE | 2025-03-19 16:40 | POSTOPAN2_ITS ---
Anesthesia Postop Eval I Sum Postop Eval Completion status Anesthesia document: Postop Eval 1 completed: Yes Anesthesia Postop Eval I Summary Anesthesia Postop Eval I Summary: Anesthesia Postop Eval I: Assessment Summary Airway patent Yes 03/19/25 16:20 SHIP [email or web address].SHOF Spontaneous unlabored Yes 03/19/25 16:20 SHIP [email or web address].SHOF respirations Mental status Awake,Calm 03/19/25 16:20 SHIP [email or web address].SHOF nausea No 03/19/25 16:20 SHIP ENGINEER.SHOF Vomiting No 03/19/25 16:20 SHIP ENGINEER.SHOF Anesthesia Postop Eval I: Fluid Summary Crystalloid volume administer 400 03/19/25 16:20 SHIP [email or web address].SHOF (ml) Colloids volume administered ( ml) Blood Product volume administered (ml) Total IV fluid infused 400 03/19/25 16:20 SHIP [email or web address].SHOF Anesthesia Postop Eval I: Summary Notes Anesthesia Complication No 03/19/25 16:20 SHIP [email or web address].SHOF Anesthesia Complication Comment: Post-operative progress note Anesthesia: Postop Eval II Evaluation Mental status: Awake and Calm Pain Level: 0 nausea: No Vomiting: No Complications Anesthesia Complication: No
--- NOTE | 2025-03-19 16:40 | PCM.POSTANE2 ---
Anesthesia Postop Eval I Sum Postop Eval Completion status Anesthesia document: Postop Eval 1 completed: Yes Anesthesia Postop Eval I Summary Anesthesia Postop Eval I Summary: Anesthesia Postop Eval I: Assessment Summary Airway patent Yes 03/19/25 16:20 DIGITAL SALES REPRESENTATIVE.SHOF Spontaneous unlabored Yes 03/19/25 16:20 DIGITAL SALES REPRESENTATIVE.SHOF respirations Mental status Awake,Calm 03/19/25 16:20 DIGITAL SALES REPRESENTATIVE.SHOF nausea No 03/19/25 16:20 DIGITAL SALES REPRESENTATIVE.SHOF Vomiting No 03/19/25 16:20 DIGITAL SALES REPRESENTATIVE.SHOF Anesthesia Postop Eval I: Fluid Summary Crystalloid volume administer 400 03/19/25 16:20 DIGITAL SALES REPRESENTATIVE.SHOF (ml) Colloids volume administered ( ml) Blood Product volume administered (ml) Total IV fluid infused 400 03/19/25 16:20 DIGITAL SALES REPRESENTATIVE.SHOF Anesthesia Postop Eval I: Summary Notes Anesthesia Complication No 03/19/25 16:20 DIGITAL SALES REPRESENTATIVE.SHOF Anesthesia Complication Comment: Post-operative progress note Anesthesia: Postop Eval II Evaluation Mental status: Awake and Calm Pain Level: 0 nausea: No Vomiting: No Complications Anesthesia Complication: No
== END 2025-03-19 16:42 | disposition home or self-care (01) ==
LOC: EN 14:47 → AC 14:47
PROVIDERS: PCP Family Medicine; Referring Provider Internal Medicine Gastroenterology; Visit Provider Internal Medicine Gastroenterology
PROC: 0DJ08ZZ Inspection of Upper Intestinal Tract, Via Natural or Artificial Opening Endoscopic (ICD-10-PCS; CPT 43235; principal; 2025-03-19 15:40)
DX: D62 Acute posthemorrhagic anemia (principal); Z79.899 Other long term (current) drug therapy; I12.9 Hypertensive chronic kidney disease with stage 1 through stage 4 chronic kidney disease, or unspecified chronic kidney disease; D63.8 Anemia in other chronic diseases classified elsewhere; N18.9 Chronic kidney disease, unspecified; K26.9 Duodenal ulcer, unspecified as acute or chronic, without hemorrhage or perforation; Z86.73 Personal history of transient ischemic attack (TIA), and cerebral infarction without residual deficits; Z96.652 Presence of left artificial knee joint; Z90.79 Acquired absence of other genital organ(s); K22.11 Ulcer of esophagus with bleeding
CPT/HCPCS: 43255; C1889

== ENCOUNTER → 2025-04-24 | Outpatient (CLI) | payer MEDICARE, OTHER, SELFPAY ==
[2025-04-24 10:39] LABS: Anion Gap 11 (5-15); BUN 36 mg/dL (4-19); BUN/Creat Ratio 19.0 RATIO (10-20); Calcium,Total 9.2 mg/dL (7.6-11.0); Carbon Dioxide 19.4 mmol/L (21.0-32.0); Chloride 106 mmol/L (98-108); Glucose 110 mg/dL (70-99); Potassium 4.7 mmol/L (3.3-5.1)
== END | disposition home or self-care (01) ==
LOC: MTLAB 08:16
PROVIDERS: PCP Family Medicine; Referring Provider Internal Medicine Nephrology; Visit Provider Internal Medicine Nephrology
DX: N17.9 Acute kidney failure, unspecified (principal)
CPT/HCPCS: 36415; 80048

== ENCOUNTER → 2025-05-06 | Outpatient (CLI) | payer MEDICARE, OTHER, SELFPAY ==
[2025-05-06 10:26] LABS: Hematocrit 32.8 % (40-54); Hemoglobin 10.7 g/dL (13.0-16.5); Immature Granulocytes Count 0.050 X10^3/uL (0.0-0.0); Immature Reticulocyte Fraction 9.60 % (3.00-15.90); Mean Corp Hgb Conc 32.6 g/dL (32-36); Mean Corpuscular Volume 89.6 fL (80-94); Mean Platelet Vol. 10.6 fl (6.2-12.0); NRBC Flagged by Analyzer 0 % (0-5); Platelet Count 290 K/mm3 (150-450); RBC Distribution Width CV 16.0 % (11.6-14.6); RBC Distribution Width SD 53.3 fl (35.1-43.9); Red Blood Count 3.66 M/mm3 (4.6-6.2); Reticulocyte Count 1.73 % (0.5-1.5); White Blood Count 7.0 K/mm3 (4.4-11.0)
[2025-05-06 12:01] LABS: Anion Gap 13 (5-15); BUN 45 mg/dL (4-19); BUN/Creat Ratio 24.0 RATIO (10-20); Calcium,Total 9.3 mg/dL (7.6-11.0); Carbon Dioxide 20.0 mmol/L (21.0-32.0); Chloride 106 mmol/L (98-108); Glucose 113 mg/dL (70-99); Iron 99 ug/dL (65-175); Potassium 4.6 mmol/L (3.3-5.1)
[2025-05-06 12:27] LABS: Ferritin 421 ng/mL (37-417)
== END | disposition home or self-care (01) ==
LOC: MTLAB 08:10
PROVIDERS: PCP Family Medicine; Referring Provider Family Medicine; Visit Provider Family Medicine
DX: A04.72 Enterocolitis due to Clostridium difficile, not specified as recurrent (principal); N18.30 Chronic kidney disease, stage 3 unspecified
CPT/HCPCS: 36415; 80048; 82728; 83540; 85025; 85045